=== PATIENT | male | born 1955 | race Caucasian/White ===

== ENCOUNTER → 2024-01-06 | Outpatient (CLI) | payer MEDICARE, SELFPAY | END | disposition home or self-care (01) | PROVIDERS: PCP Nurse Practitioner Family; Referring Provider Internal Medicine Critical Care Medicine; Visit Provider Internal Medicine Critical Care Medicine | DX: R91.8 Other nonspecific abnormal finding of lung field (principal); F17.210 Nicotine dependence, cigarettes, uncomplicated | CPT/HCPCS: 94060; 94726; 94729 ==

== ENCOUNTER 2024-01-08 10:16 | Observation (INO) | payer MEDICARE, SELFPAY ==
[2024-01-08] VITALS (9 sets, daily range): BP systolic 92–152; BP diastolic 47–78; PULSE 55–86; RESP 15–20; TEMP 36.3–36.5; O2SAT 90–97; BMI 20.4; BMI 19.2
--- NOTE | 2024-01-08 10:26 | EDS_ITS ---
HPI History of Present Illness Chief Complaint: Shortness of Breath Informant: patient Onset/Context/Timing Onset: Today Current Severity: Mild Maximum Severity: Mild Narrative Narrative: 68-year-old male has a left lung mass. He was undergoing biopsy in radiology when he developed a small pneumothorax. Patient is doing well. Denies any significant complaints. He has no history of oxygen use at home. He is on no blood thinners. Prior similar symptoms: No Recent Illness/Hospitalization: No PFSH PFSH Medical History Hypertension Home Medications erythromycin 5 mg/gram (0.5 %) eye ointment 1 applic ophthalmic (eye) 12/29/23 [History Last Taken Unknown] irbesartan 150 mg-hydrochlorothiazide 12.5 mg tablet 1 tab PO DAILY 12/29/23 [History Last Taken 01/05/24] tamsulosin 0.4 mg capsule 0.4 mg PO DAILY 12/29/23 [History Last Taken Unknown] Allergy/AdvReac Type Severity Reaction Status Date / Time No Known Allergies Allergy Verified 01/08/24 10:17 Surgical History H/O vasectomy Social History Smoking Status: Current every day smoker tobacco type: cigarettes ROS ROS ED ROS Narrative Denies recent illness. Review of Systems ROS Unobtainable: Denies due to encephalopathy Constitutional Constitutional ED: Denies chills or fever(s) Eyes Eyes: Denies blurry vision ENT ENT ED: Denies ear pain Cardiovascular Cardiovascular: Denies palpitations or racing heartbeat Respiratory/Chest Respiratory/Chest: Denies cough or dyspnea Gastrointestinal Gastrointestinal: Denies abdominal pain Genitourinary Genitourinary ED: Denies dysuria or hematuria Musculoskeletal Musculoskeletal: Denies arthralgias Integumentary Denies abscess or Abrasions Neurologic Neurologic: Denies headache(s) Psychiatric Psychiatric: Denies anxiety or depression Endocrine Endocrinology: Denies cold intolerance Hematologic/Lymphatic Hematologic/Lymphatic: Reports none Allergic/Immunologic Allergic/Immunologic ED: Denies mouth swelling, tongue swelling or urticaria EXAM Physical Exam Narrative Exam Narrative: 60-year-old male vital signs stable afebrile. Pulse ox 96% on room air no signs hypoxia. H EENT exam unremarkable except lazy eye on the left. Blocked gland on the left which she has upcoming surgery. Neck nontender. Lungs clear to auscultation bilaterally. Slightly diminished on the left. No subcu air or crepitus. Chest wall nontender. Heart regular rate and rhythm rate about 65 no murmur. Abdomen soft nontender. Moving all 4 extremities. Nontender no edema. Neurologically is awake alert no focal motor deficits. Const Vital Signs: 01/08/24 10:17 01/08/24 10:22 01/08/24 11:34 Temperature 97.6 F L Temperature Source Temporal Pulse Rate 65 86 Respiratory Rate 20 H 16 Respiratory Effort Normal Respiratory Depth Normal Respiratory Pattern Normal Blood Pressure 152/73 H 144/71 H Blood Pressure Mean 99 95 Pulse Ox 96 96 Oxygen Delivery Method Room Air Room Air Room Air Positive well nourished and well developed; Negative for obese, cachectic, contractures or unkempt General Appearance ED: well developed and NAD; Negative for unkempt, cachectic, contractures, cyanotic, diaphoretic or pallor Nutritional Appearance: Negative for cachectic or obese HEENT Reports moist mucous membranes; Denies dry mucous membranes Negative for trauma or tenderness Mouth ED: No dry mucous membranes Mouth: No dry mucous membranes Eyes PERRL and EOMs intact bilaterally General Eye ED: Negative for pale conjunctiva or scleral icterus Neck no lymphadenopathy, supple and no JVD General: Negative for tenderness Lymph Lymphatic: Negative for other Chest Wall inspection of chest normal and palpation of chest normal Resp normal respiratory effort and clear to auscultation bilaterally Resp Narrative: Mildly diminished on the left. Effort and Inspection: Negative for retractions Auscultation: diminished lung sounds; Negative for rales, rhonchi or wheezes Cardio regular rate, regular rhythm, S1 normal heart sound, S2 normal heart sound and no murmurs Palpation: Negative for palpable S3 or palpable S4 Rate: Negative for bradycardia or tachycardic Rhythm: Negative for abnormal rhythm GI normal to inspection, nondistended, normoactive bowel sounds, non-tender, non- distended and no masses Inspection: Negative for abdominal distention Auscultation: normoactive bowel sounds Palpation: soft; Negative for tender, guarding or rebound tenderness present Back/Spine no CVA tenderness General Back: Negative for CVA tenderness Cervical Spine: Negative for cervical spine tenderness Thoracic Spine / Upper Back: Negative for thoracic spinal tenderness or paraspinal muscle tenderness Lumbar Spine / Lower Back: Negative for lumbar spinal tenderness Extremity normal to inspection General Extremety ED: Negative for edema, tenderness or other findings General Extremity: Negative for edema or other findings Neuro CN's II-XII intact bilaterally Sensorium / Orientation: alert; Negative for orientation impaired, lethargic or stuporous Motor Exam: strength 5/5 throughout; Negative for general weakness or strength abnormal Psych mental status grossly normal Appearance: Negative for unkempt Attitude: No agitated Mood & Affect: Negative for depressed, anxious or tearful Skin no rashes or lesions noted and no wounds General Skin Exam: Negative for jaundice or pallor Lesions: No lesion noted Rashes: No rashes noted Trauma: Negative for abrasion Wounds: Negative for wounds noted MDM MDM MDM Narrative Medical decision making narrative: 68-year-old male status post idiopathic left-sided pneumothorax after lung biopsy. Patient is in no distress. He and I discussed the thoracostomy tube placement. Patient is not on any blood thinners. Placed the left thoracostomy tube. Got a good randle of air. Patient was instructed on the procedure. Area was cleaned with soap. It was sterilely draped. I made a small 1 cm incision. Area was locally anesthetized with lidocaine. Place a thoracostomy tube mid axillary line at the level of his nipple. Obtained a good randle of air. And hooked it up to low intermittent suction. Chest x-rays being obtained. Patient tolerated procedure well. Patient given morphine for pain and Zofran to prevent nausea. Chest x-ray postprocedure shows a left lung reexpanded. Thoracostomy tube in good position. I have spoken to the hospitalist patient will be an observation admission to [facility]. History & Record Review Discussion w/independent historian: Patient Additional record(s) reviewed:: Prior inpatient record, Prior outpatient record, Prior ED visit and Prior labs Radiography Diagnostic Testing: Outpatient chest x-ray, interpreted by myself, shows chronic changes. Left- sided pneumothorax 25 to 30% about. Moderate size left lung mass. Chronic changes. Post thoracostomy tube chest x-ray, 2 views, interpreted by myself shows the thoracostomy tube in good position. The left lung reexpanded. And the known left lung mass. Procedures Other Procedures Procedure(s): Left-sided pneumothorax. Placement of left thoracostomy tube. Explained to the patient. He consented. Sterilely draped. Clean the area with soap. Lateral to the nipple level of the mid axillary line and I did local anesthetic with lidocaine. Small vertical incision with scalpel. 1 [address]aced a thoracostomy tube. Good randle of air. Aspirated 5 to 10 cc of air. Tube is being dressed. Awaiting postprocedure chest x-ray. Discharge Plan Dx/Rx/DC Orders Clinical Impression: Iatrogenic pneumothorax, Mass of left lung, Thoracostomy tube in place Disposition Disposition: Acute Care Hospital [facility]
--- NOTE | 2024-01-08 11:13 | ED.RN ---
dr coleman at bedside to do chest tube.
--- NOTE | 2024-01-08 11:22 | RAD_ITS ---
STUDY: X-RAY CHEST REASON FOR EXAM: Male, 68 years old. Status post thoracostomy tube placement. TECHNIQUE: Frontal and lateral views of the chest. COMPARISON: Earlier in the day. FINDINGS: Placement of left thoracostomy tube with resolution of left pneumothorax. Minimal subcutaneous emphysema along the left lateral chest wall. Stable borderline cardiomegaly, aortic tortuosity, prominent central pulmonary arteries, hyperinflation, diffuse interstitial prominence and left lower lobe mass. No abnormality of the visualized soft tissue structures of the upper abdomen. RAD/Chest PA and Lateral IMPRESSION: Placement of left thoracostomy tube with resolution of left pneumothorax. Electronically Signed: Michael Davis MD at 11:55 EST ,
[2024-01-08] MEDS: Ondansetron 4 MG/2 ML Vial IV (11:44)
[2024-01-08] MEDS: Morphine 4 MG/ML Syringe IV (11:44)
[2024-01-08] MEDS: Lidocaine 1% (20 ml mdv) 20 ML Vial 10 ML INFILT (11:44)
--- NOTE | 2024-01-08 11:44 | NURSING ---
DR HERBERT SULTANA
--- NOTE | 2024-01-08 11:51 | PCM.HP.STD ---
[facility] - General General Date of Service: 01/08/24 Chief Complaint: Iatrogenic pneumothorax HPI Narrative PATRICK ANDRES, is a 68 M who presented to the emergency department at [facility] on 01/08/2024 for iatrogenic pneumothorax that he sustained post CT-guided biopsy for a left-sided lung mass. He evidently underwent a low-dose CT scan at [facility] on 12/16/2023 that demonstrated bilateral emphysematous changes along with an area of bronchiectasis and a spiculated left lower lobe pulmonary nodule that measured 1 point centimeter in size. PET scan was performed and did show abnormal uptake so a CT-guided biopsy was performed. The procedure was done today but unfortunately he sustained a postprocedure complication and a 25 to 30% pneumothorax on the left side. He was transferred to the emergency department where a thoracostomy tube was placed by the emergency department physician. He was not has not been hypoxic. Vital signs show temperature of 97.6, heart rate 65, blood pressure 152/73, respiratory to 20 and oxygen saturations have been 96% on room air. Labs had not yet been obtained. [facility] Medical History Hypertension Home Medications erythromycin 5 mg/gram (0.5 %) eye ointment 1 applic ophthalmic (eye) 12/29/23 [History Last Taken Unknown] irbesartan 150 mg-hydrochlorothiazide 12.5 mg tablet 1 tab PO DAILY 12/29/23 [History Last Taken 01/05/24] tamsulosin 0.4 mg capsule 0.4 mg PO DAILY 12/29/23 [History Last Taken Unknown] Allergy/AdvReac Type Severity Reaction Status Date / Time No Known Allergies Allergy Verified 01/08/24 10:17 Family History (Updated 01/08/24 @ 12:[address] Emma Wilson DO) Other Hypertension Surgical History H/O vasectomy Social History (Updated 01/08/24 @ 12:[address] Emma Wilson DO) household members: family housing: house current occupational status: retired Smoking Status: Current every day smoker tobacco type: cigarettes Smoking packs per day: 1.5 Smoking cigarettes per day: 30.0 alcohol intake: current alcohol intake frequency: a few times a month substance use type: does not use ROS Constitutional Constitutional: Denies anorexia, change in weight, chills, fatigue, fever(s), malaise, night sweats, weakness or other Eyes Eyes: Reports erythema and eye pain; Denies blurry vision, change in eye color, change in vision, discharge from eye(s), double vision, loss of vision or other ENT HEENT: Denies abnormal hearing, dysphagia, ear pain, epistaxis, headache(s), hearing loss, nasal congestion, nasal discharge, post nasal drip, sinus pressure, sore throat or other Cardiovascular Cardiovascular: Denies chest pain, claudication, dyspnea on exertion, edema, lightheadedness, orthopnea, palpitations, paroxysmal nocturnal dyspnea, rapid heart rate, syncope or other Respiratory/Chest Respiratory/Chest: Reports cough; Denies dyspnea, excessive phlegm production, hemoptysis, productive cough, shortness of breath at rest, shortness of breath with exertion, wheezing or other Gastrointestinal Gastrointestinal: Denies abdominal pain, coffee ground emesis, constipation, diarrhea, dyspepsia, hematemesis, hematochezia, loose stools, melena, nausea, vomiting or other Genitourinary Genitourinary: Reports difficulty urinating, nocturia and urinary hesitancy; Denies burning urination, dysuria, hematuria, urinary frequency, urinary incontinence, urinary urgency or other Musculoskeletal Musculoskeletal: Denies arthralgias, back pain, joint pain, joint stiffness, joint swelling, myalgias, neck pain or other Neurologic Neurologic: Denies abnormal gait, abnormal speech, confusion, disequilibrium, dizziness, focal weakness, headache(s), numbness, paresthesias, seizure-like activity, seizures, syncope, tingling, tremor(s) or other Psychiatric Psychiatric: Denies anxiety, depression, homicidal ideation, suicidal ideation or other Endocrine Endocrinology: Denies change in body appearance, cold intolerance, excessive sweating, heat intolerance, polydipsia, polyuria or other Hematologic/Lymphatic Hematologic/Lymphatic: Denies anemia, easy bleeding, easy bruising, lymphadenopathy or other Allergic/Immunologic Allergic/Immunologic: Denies rhinitis, hives, eczemia, asthma or other Vital Signs Vital Signs Vital Signs: 01/08/24 10:17 01/08/24 10:22 01/08/24 11:34 Temperature 97.6 F L Temperature Source Temporal Pulse Rate 65 86 Respiratory Rate 20 H 16 Respiratory Effort Normal Respiratory Depth Normal Respiratory Pattern Normal Blood Pressure 152/73 H 144/71 H Blood Pressure Mean 99 95 Pulse Ox 96 96 Oxygen Delivery Method Room Air Room Air Room Air Weight Weight: 54 kg Body Mass Index (BMI) 20.4 Physical Exam Const alert, oriented x3, no apparent distress, average body habitus and well nourished; Negative for healthy appearing Constitutional Narrative: Upper middle-aged, white male, sitting up in bed, appears older than stated age, thin, currently appears comfortable, nontoxic General Appearance: cooperative HEENT normocephalic, head/scalp atraumatic and moist oral mucous membranes HEENT Narrative: Dentures in place, Mallampati 2, no thrush Resp normal respiratory effort, no retractions, no use of accessory muscles and clear to auscultation bilaterally Resp Narrative: Diffusely diminished but clear Auscultation: Negative for rales, rhonchi or wheezes Cardio regular rate, regular rhythm, S1 normal heart sound, S2 normal heart sound, no murmurs, no rub, no gallops and no clicks GI normal to inspection, nondistended, normoactive bowel sounds, soft to palpation and non-tender Extremity no clubbing, cyanosis or edema Neuro oriented x3, moves all extremities and no focal motor deficits Speech: speech normal Psych affect normal Psych Narrative: Very pleasant, interacts appropriately Assessment & Plan Assessment/Plan (1) Thoracostomy tube in place: (2) Mass of left lung: (3) Iatrogenic pneumothorax: (4) Nicotine dependence, cigarettes, uncomplicated: PLAN: Plan Iatrogenic pneumothorax -Patient was undergoing biopsy for pulmonary nodule and unfortunately developed postprocedure pneumothorax -Chest tube placement in the ED -Good reexpansion on follow-up chest x-ray -Supplemental oxygen as needed however patient is currently on room air and stable at 93% -General surgery to assist with chest tube management -Chest tube to suction Abnormal lung mass -Biopsy performed -Outpatient follow-up with pulmonary medicine after discharge Abnormal EKG -Patient without any active symptoms -It appears that he has had a previous anterior and inferior MT -We will cycle cardiac enzymes -Obtain previous medical records in the form of echo and EKG from [facility] if available -Start aspirin 81 mg daily -Check lipids -Will make cardiology referral at discharge Hypertension -Continue home antihypertensives BPH with obstruction -Continue home Flomax Left eye infection with clogged tear duct -Surgery upcoming -Continue ophthalmic erythromycin Tobacco abuse -Recommend cessation -Nicotine patch -Patient smoking 1 and half packs of day DVT prophylaxis -Lovenox subcu daily CODE STATUS -Full code Charges/Coding Visit Charges Inpatient E&M: 55443 Init Hosp L2
--- NOTE | 2024-01-08 11:53 | NURSING ---
MED SURG OBS HERBERT IATROGENIC PNEUMOTHORAX, LEFT THORACOSTOMY TUBE, LEFT LUNG MASS
--- NOTE | 2024-01-08 12:06 | EKG12_ITS ---
Test Reason : Blood Pressure : / mmHG Vent. Rate : 058 BPM Atrial Rate : 058 BPM P-R Int : 100 ms QRS Dur : 076 ms QT Int : 434 ms P-R-T Axes : 056 091 117 degrees QTc Int : 426 ms Sinus bradycardia with short SD Rightward axis Septal infarct , age undetermined ST & Marked T wave abnormality, consider anterolateral ischemia Abnormal ECG Confirmed by FRANCISCO STONE, STEVEN ([id number]), make up editor CANDY SHELL ([id number]) on 01/11/2024 1:59:52 PM Referred By: REBECA Confirmed By:MALISSA SINGH MD
--- OUTSIDE RECORDS SUMMARY | 2024-01-08 12:53 | XMS RPT_ITS | CCD ---
Author Name Unknown Address [address] [facility] [address] [place] [address] Organization [facility] Care Team Providers Care Breastfeeding Educator Name Role Phone SANFORD Corey CNP, WENDY Galan Primary Care Phys ician LONDON KAMINSKI, JESUS Primary Care Physician LONDON KAMINSKI, JESUS Primary Care Cherivai lable LONDON KAMINSKI, JESUS Attending Cherivapia labglenn KAMINSKI, JESUS Attending Unavai lable LONDON KAMINSKI, JESUS Primary Care Unavai lable LONDON KAMINSKI, JESUS Attending Unavai labglenn KAMINSKI, JSEUS Primary Care Unavai lable Medications Current Medications Medication Drug Class(es) Dates Sig (Normalized) Sig (Original) erythromycin 0.005 mg/mg ophthalmic ointment (2 sources) Macrolide, Macrolide Antimicrobial Start: 11-25-2023 erythromycin 0.5% ophthalmic ointment Dose = 1 alvarado, Eye, left, QID, 1 alvarado = 0.5 inch, # 3.5 gram(s), 0 Refill(s), Pharmacy: [id number], Hordeolum of left eye, 166, cm, [...] Daily, # 30 tab(s), 0 Refill(s), Pharmacy: [id number], Hypertension, 166, cm, 11/25/23 9:57:00 EST, [...] Date Encounter Type Care Provider Facility Start: 12-31-2023 End: 01-01-2024 ambulatory JESUS LONDON [facility] Facility:A Start: 12-16-2023 End: 12-17-2023 ambulatory JESUS LONDON [facility] Facility:B Start: 12-16-2023 End: 12-16-2023 Patient encounter procedure JESUS LONDON [facility] Start: 11-27-2023 End: 11-28-2023 ambulatory JESUS LONDON [facility] Facility:B Start: 11-27-2023 End: 11-27-2023 Patient encounter procedure JESUS LONDON [facility] Start: 09-23-2021 End: 09-27-2021 Outreach Lab WENDY CHRISTINA [facility] Start: 08-16-2021 End: 08-20-2021 Outreach Lab WENDY CHRISTINA [facility] Procedures Date Procedure Procedure Detail Performing Clinician Start: 11-09-2019 Colonoscopy JESUS CARMEN DAYO [facility] Start: 11-09-1984 Vasectomy JESUS CARMEN ETGORDO [facility] Immunizations Immunization Date Immunization Notes Care Provider Fa cility 05-16-2016 pneumococcal polysaccharide vaccine, 23 valent WENDY CHRISTINA [facility] 05-16-2016 tetanus toxoid, redu angela diphtheria toxoid, and acellular pertussis vaccine, adsorbed WENDY CHRISTINA [facility] Payers Date Payer Category Payer Medicare [id number] 1955 Unknown [id number] 1955 Unknown [id number] 1955 Unknown [id number] Social History Date Type Detail Facility Start: 03-07-2021 End: 11-25-2023 Heavy tobacco smoker (finding) [facility] Sex Assigned At [facility] Evaluation + Plan note Note Date & Type Note Facility Evaluation + Plan note Future Appointments Appointment Date:10/21/2021 10:40:00 AM Scheduled Provider:WENDY CHRISTINA [facility] Location:[facility] Appointment Type:PC OV [facility] Evaluation + Plan note Note Date & Type Note Facility Evaluation + Plan note Future Appointments Appointment Date:09/06/2021 09:00:00 AM Scheduled Provider:WENDY CHRISTINA APRN, CNP Location:[facility] Appointment Type:PC OV Follow Up [facility] Evaluation + Plan note Radiology Note Date & Type Note Facility Evaluation + Plan note Future Appointments Appointment Date:12/23/2023 07:00:00 AM Scheduled Provider:JSEUS CALLAHAN Location:[facility] Appointment Type:PC OV Follow Up Future Scheduled TestsCT Low Dose Lung Cancer Screening (LDCT) 11/25/23 [facility] Evaluation + Plan note Note Date & Type Note Facility Evaluation + Plan note Future Appointments Appointment Date:12/23/2023 07:00:00 AM Scheduled Provider:JESUS CALLAHAN Location:[facility] Appointment Type:PC OV Follow Up [facility] Hospital course Narrative Note Date & Type Note Facility Hospital course Narrative No data available for this section [facility] Hospital Discharge instructions Note Date & Type Note Facility Hospital Discharge instructions No data available for this section [facility] Progress note Note Date & Type Note Facility Progress note No data available for this section [facility] Summary Purpose Family History No Family History Records Found Advance Directives No Advanced Directives Records Found Additional Source Comments Patient Care team informatio n (unrecognized section and content) Care Team Personnel Name: JESUS CALLAHAN Position: P4 Advanced Nurse Care Manager Member Role: Primary Care Physician Address: Address: [address] [place] [address] [place] Care Team Related Persons Name: JELLY ANDRES Care Team Personnel Name: JESUS CALLAHAN Position: P4 Advanced Nurse Care Manager Member Role: Primary Care Physician Address: Address: [address] [facility] [place] [address]- Care Team Related Persons Name: JELLY ANDRES [...] BE BASED ON THE PRIMARY CLINICAL RECORDS. [employer] provides no warranty or guarantee of the accuracy or completeness of information in this document.
[2024-01-08 13:09] LABS: Absolute Neutrophil Count 5.4 X10^3/uL (2.0-7.7); Basophil# 0.04 X10^3/uL; Basophil% 0.5 % (0-1); Eosinophil# 0.08 X10^3/uL; Eosinophils% 0.9 % (0-5); Hematocrit 38.9 % (40-54); Hemoglobin 13.4 g/dL (13.0-16.5); Lymphocyte % 25.8 % (19-41); Mean Corp Hgb Conc 34.4 g/dL (32-36); Mean Corpuscular Hgb 30.7 pg (27.0-32.0); Mean Corpuscular Volume 89.2 fL (80-94); Mean Platelet Vol. 9.6 fl (6.2-12.0); Monocyte# 0.83 X10^3/uL; Monocyte% 9.7 % (0-10); NRBC Flagged by Analyzer 0 % (0-5); Neutrophil # 5.37 X10^3/uL (2.7-7.7); Platelet Count 289 K/mm3 (150-450); RBC Distribution Width CV 13.1 % (11.6-14.6); RBC Distribution Width SD 42.7 fl (35.1-43.9); Red Blood Count 4.36 M/mm3 (4.6-6.2); White Blood Count 8.5 K/mm3 (4.4-11.0)
[2024-01-08 13:26] LABS: ALB/GLOB Ratio 0.8 RATIO (0.9-2.4); AST(SGOT) 33 U/L (15-37); Alanine Aminotransfer ALT/SGPT 35 U/L (16-61); Albumin, Serum 2.8 g/dL (3.2-5.0); Alkaline Phosphatase 93 U/L (45-117); Anion Gap 3 (5-15); BUN 11 mg/dL (7-18); BUN/Creat Ratio 17.5 RATIO (10-20); Calcium,Total 8.5 mg/dL (8.5-10.1); Chloride 107 mmol/L (98-107); Creatinine, Serum 0.63 mg/dL (0.70-1.30); EST Glomerular Filtration Rate 135 mL/min (>60); Est Glom Filt Rate - Afr Amer 163 mL/min (>60); Globulin 3.6 g/dL (2.2-4.2); Glucose 84 mg/dL (74-106); Potassium 4.4 mmol/L (3.5-5.1); Protein, Total 6.4 g/dL (6.4-8.2); Sodium Level 134 mmol/L (136-145)
[2024-01-08] MEDS: Aspirin 81 MG TAB.CHEW PO (13:56)
[2024-01-08] MEDS: Acetaminophen 500 MG Tablet 1000 MG PO ×2 (13:56→21:08)
[2024-01-08] MEDS: oxyCODONE 5 MG Tablet PO (13:56)
[2024-01-08 14:09] LABS: Cholesterol 159 mg/dL (200); High Density Lipoprotein 71 mg/dL; Triglycerides 61 mg/dL; Very Low Density Lipoprotein 12 mg/dL (5-40)
[2024-01-08 14:35] LABS: Troponin-I HS 20 pg/mL (3.0-78.0)
[2024-01-08 16:37] LABS: Troponin-I HS 19 pg/mL (3.0-78.0)
--- NOTE | 2024-01-08 16:53 | CON.PCM.SX_ITS ---
Assessment & Plan Assessment/Plan (1) Iatrogenic pneumothorax: PLAN: The patient had iatrogenic pneumothorax after left lung biopsy. Chest tube is in place. I added a Pleur-evac to the circuit to allow to check for for airleak. After I did I was not able to appreciate an air leak. The patient seems not short of breath. Chest x-ray showed full expansion of the lung. I will repeat a chest x-ray in the morning. Caden Lockwood MD Pager: [facility] [address] [place] [address], [address] [place] [address] Office: HPI Consult Data Date of Consult: 01/08/24 HPI Narrative HPI Narrative: PATRICK ANDRES, is a 68 M who presents with iatrogenic pneumothorax on the left side. Patient had lung biopsy today and had postoperative pneumothorax. He was sent to the emergency room and a chest tube was placed and he was admitted to the floor. Currently he says it is irritating his ribs but he is not short of b reath. [facility] Medical History (Updated 01/08/24 @ 13:41 by Aure Kenyon) Hypertension Smoker Vision loss of left eye Home Medications erythromycin 5 mg/gram (0.5 %) eye ointment 1 applic ophthalmic (eye) Q6H 12/29/23 [History Last Taken 01/06/24] irbesartan 150 mg-hydrochlorothiazide 12.5 mg tablet 1 tab PO DAILY 12/29/23 [History Last Taken 01/06/24] tamsulosin 0.4 mg capsule 0.4 mg PO DAILY 12/29/23 [History Last Taken 01/06/24] Allergy/AdvReac Type Severity Reaction Status Date / Time No Known Allergies Allergy Verified 01/08/24 10:17 Family History (Updated 01/08/24 @ 12:[address] Emma Wilson DO) Other Hypertension Surgical History H/O vasectomy Social History (Updated 01/08/24 @ 12:[address] Emma Wilson DO) household members: family housing: house current occupational status: retired Smoking Status: Current every day smoker tobacco type: cigarettes alcohol intake: current alcohol intake frequency: a few times a month substance use type: does not use ROS Constitutional Constitutional: Reports anorexia; Denies chills or fatigue Eyes Eyes: Denies blurry vision ENT HEENT: Denies abnormal hearing Cardiovascular Cardiovascular: Reports chest pain Respiratory/Chest Respiratory/Chest: Denies cough or dyspnea Gastrointestinal Gastrointestinal: Denies abdominal pain Genitourinary Genitourinary: Denies change in urinary stream Musculoskeletal Musculoskeletal: Denies abnormal gait Physical Exam Const alert and oriented x3 HEENT normocephalic Eyes PERRL Neck full ROM Resp normal respiratory effort Cardio Rate: regular rate Rhythm: regular rhythm GI soft to palpation and non-tender Lab / Micro Data 01/08/24 12:58 01/08/24 12:58 Labs: Laboratory Results - last 24 hr 01/08/24 12:58: WBC 8.5, RBC 4.36 L, Hgb 13.4, Hct 38.9 L, MCV 89.2, MCH 30.7, MCHC 34.4, RDW Std Deviation 42.7, RDW Coeff of [place] 13.1, Plt Count 289, MPV 9.6, Immature Gran % (Auto) 0.100, Neut % (Auto) 63.0, Lymph % (Auto) 25.8, [place] % (Auto) 9.7, Eos % (Auto) 0.9, Baso % (Auto) 0.5, Absolute Neuts (auto) 5.4, Absolute Lymphs (auto) 2.20, Nucleated RBC % 0, Sodium 134 L, Potassium 4.4, Chloride 107, Carbon Dioxide 24.0, Anion Gap 3 L, BUN 11, Creatinine 0.63 L, Estim Creat Clear Calc 67.50, Est GFR (MDRD) Af Amer 163, Est GFR (MDRD) Non-Af 135, BUN/Creatinine Ratio 17.5, Glucose 84, Calcium 8.5, Total Bilirubin 0.60, AST 33, ALT 35, Alkaline Phosphatase 93, Total Protein 6.4, Albumin 2.8 L, Globulin 3.6, Albumin/Globulin Ratio 0.8 L, Triglycerides 61, Cholesterol 159, LDL Cholesterol 76, VLDL Cholesterol 12, HDL Cholesterol 71 01/08/24 14:07: Troponin I High Sens 20 01/08/24 16:06: Troponin I High Sens 19 Imaging Radiology Impression Chest X-Ray 01/08/24 11:22 IMPRESSION: Placement of left thoracostomy tube with resolution of left pneumothorax. Electronically Signed: Michael Davis MD at 11:55 EST ,
[2024-01-08 20:40] LABS: Troponin-I HS 16 pg/mL (3.0-78.0)
[2024-01-08] MEDS: Erythromycin Base 1 OPTH.TUBE 1 APPLIC LEFT EYE (21:09)
[2024-01-09] VITALS (8 sets, daily range): BP systolic 86–101; BP diastolic 42–58; PULSE 50–69; RESP 15–18; TEMP 36.5–36.8; O2SAT 92–97
--- NOTE | 2024-01-09 01:46 | NURSING ---
CARDIAC TROPONINS NEGATIVE X 3.
--- NOTE | 2024-01-09 05:11 | RAD_ITS ---
STUDY: X-RAY CHEST REASON FOR EXAM: Male, 68 years old. Pneumothorax TECHNIQUE: Single AP portable view of the chest. COMPARISON: January 08, 2024 FINDINGS: There is stable left chest tube. There is hyperinflation of the lungs consistent with chronic obstructive lung disease (COPD). There are moderate interstitial increased opacities of the lungs. There is improving left lower lung opacity with mass and surrounding consolidation. There is no demonstrated pleural abnormality. Normal size heart. Normal mediastinum and tomasz. Normal visualized pulmonary arteries. Normal visualized aortic arch and descending thoracic aorta. Normal visualized thoracic spine. Normal visualized ribs, clavicles, and shoulders. There is no demonstrated abnormality of the visualized soft tissue structures of the upper abdomen. RAD/Chest 1 View (Portable) IMPRESSION: Stable left chest tube. No pneumothorax. Left lung mass with improvement of adjacent consolidation. Electronically Signed: Stefan Coreas MD at 9:48 EST ,
[2024-01-09] MEDS: Acetaminophen 500 MG Tablet 1000 MG PO ×2 (06:54→13:24)
[2024-01-09] MEDS: Tamsulosin HCl 0.4 MG Capsule 0.400000000000000022 MG PO (07:38)
--- NOTE | 2024-01-09 08:12 | PN.SURG_ITS ---
Subjective Subjective Patient is comfortable with no issues overnight Objective Data Objective Data Vital Signs: Vital Signs Temp Pulse Resp BP Pulse Ox O2 Del Method O2 Flow Rate 97.8 F 55 L 15 101/58 L 97 Room Air 2 01/09/24 02:10 01/09/24 02:10 01/09/24 04:00 01/09/24 02:10 01/09/24 02:10 01/09/24 04:00 01/09/24 02:10 Oxygen Flow Rate (L/min) 2 Oxygen Delivery Method Room Air Weight: 112 lb Body Mass Index (BMI) 19.2 Intake & Output: Intake and Output for Last 24 Hours 01/07/24 01/08/24 01/09/24 23:59 23:59 23:59 Intake Total 250 / 250 100 / 100 Output Total 600 / 600 Balance 250 / 250 -500 / -500 Lab / Micro Data 01/08/24 12:58 01/08/24 12:58 Labs: Laboratory Results - last 24 hr 01/08/24 12:58: WBC 8.5, RBC 4.36 L, Hgb 13.4, Hct 38.9 L, MCV 89.2, MCH 30.7, MCHC 34.4, RDW Std Deviation 42.7, RDW Coeff of [place] 13.1, Plt Count 289, MPV 9.6, Immature Gran % (Auto) 0.100, Neut % (Auto) 63.0, Lymph % (Auto) 25.8, [place] % (Auto) 9.7, Eos % (Auto) 0.9, Baso % (Auto) 0.5, Absolute Neuts (auto) 5.4, Absolute Lymphs (auto) 2.20, Nucleated RBC % 0, Sodium 134 L, Potassium 4.4, Chloride 107, Carbon Dioxide 24.0, Anion Gap 3 L, BUN 11, Creatinine 0.63 L, Estim Creat Clear Calc 67.50, Est GFR (MDRD) Af Amer 163, Est GFR (MDRD) Non-Af 135, BUN/Creatinine Ratio 17.5, Glucose 84, Calcium 8.5, Total Bilirubin 0.60, AST 33, ALT 35, Alkaline Phosphatase 93, Total Protein 6.4, Albumin 2.8 L, Globulin 3.6, Albumin/Globulin Ratio 0.8 L, Triglycerides 61, Cholesterol 159, LDL Cholesterol 76, VLDL Cholesterol 12, HDL Cholesterol 71 03/01/24 14:07: Troponin I High Sens 20 01/08/24 16:06: Troponin I High Sens 19 01/08/24 19:59: Troponin I High Sens 16 Radiography Diagnostic Testing: Radiology Impression Chest X-Ray 01/08/24 11:22 IMPRESSION: Placement of left thoracostomy tube with resolution of left pneumothorax. Electronically Signed: Michael Davis MD at 11:55 EST Reading Location ID and State: [id number] [facility] , Service support , Physical Exam Const oriented x3 and no apparent distress Resp normal respiratory effort Cardio regular rate and regular rhythm GI soft to palpation and non-tender Assessment & Plan Assessment/Plan (1) Iatrogenic pneumothorax: PLAN: Patient had pneumothorax after lung biopsy. He is doing well today and his morning x-ray shows no pneumothorax. There is no airleak. I will place him to [facility] and repeat an x-ray in a few hours and as long as there is no pneumothorax I will remove the chest tube and repeat a post removal x-ray and if that is well he can go home. Caden Lockwood MD Pager: [facility] [address] [place] [address], [address] [place] [address] Office:
--- NOTE | 2024-01-09 09:02 | CASEMGMT ---
Met with pt to complete GALEANA form. GALEANA form explained to pt at this time who voiced understanding and signed form. Original form placed in pt?s chart and copy provided to the pt. Cindy West RN CM
--- NOTE | 2024-01-09 09:10 | RAD_ITS ---
STUDY: X-RAY CHEST REASON FOR EXAM: Male, 68 years old. Chest tube to water seal TECHNIQUE: Single AP portable view of the chest. COMPARISON: January 09, 2024 FINDINGS: There is stable left chest tube. There is hyperinflation of the lungs consistent with chronic obstructive lung disease (COPD). There are moderate interstitial increased opacities of the lungs. There is improving left lower lung opacity with mass and surrounding consolidation. There is no demonstrated pleural abnormality. Normal size heart. Normal mediastinum and tomasz. Normal visualized pulmonary arteries. Normal visualized aortic arch and descending thoracic aorta. Normal visualized thoracic spine. Normal visualized ribs, clavicles, and shoulders. There is no demonstrated abnormality of the visualized soft tissue structures of the upper abdomen. RAD/Chest 1 View (Portable) IMPRESSION: Stable left chest tube. No pneumothorax. Left lung mass with improvement of adjacent consolidation. Electronically Signed: Stefan Coreas MD at 9:46 EST ,
[2024-01-09] MEDS: Losartan Potassium 50 MG Tablet PO (09:25)
[2024-01-09] MEDS: hydroCHLOROthiazide 12.5mg 12.5 MG PO (09:25)
[2024-01-09] MEDS: Enoxaparin 40 MG/0.4 ML Syringe SC (09:26)
[2024-01-09] MEDS: Erythromycin Base 1 OPTH.TUBE 1 APPLIC LEFT EYE (09:26)
--- NOTE | 2024-01-09 09:57 | PCM.PN.BLA ---
Progress Note Patient had chest x-ray which showed no pneumothorax. I removed the chest tube. It was very easily removed and the stitch was removed and the chest tube slid out of bandages placed. Patient tolerated procedure well. I will order another chest x-ray for 2 hours from now and as long as that chest or x-ray does not show any recurrence of pneumothorax the patient may be discharged home. Patient should have follow-up chest x-ray in 1 week to ensure no pneumothorax. He may follow-up with me in a week after chest x-ray is obtained. Caden Lockwood MD Pager: [facility] [address] [place] [address], [address] [place] [address] Office:
--- NOTE | 2024-01-09 10:08 | PCM.DC.SUM ---
Providers Date of Admission: 01/08/24 Date of Discharge: 01/09/24 Primary Care Physician: FRIEDA KEARNEY Consultations 01/08/24 13:23 Consult: General Surgery Routine Consulting Provider: Caden Lockwood Reason for Consult: L PTX EMERGENT Consult: No MD Notified: Yes Date Notified: 01/08/24 Time Notified: 11:51 Method of Notification: phone Reason For Visit: R PNEUMOTHORAX Diagnosis Discharge Diagnosis (1) Iatrogenic pneumothorax: Status: Acute Code(s): J95.811 - Postprocedural pneumothorax Plan Iatrogenic pneumothorax -Patient was undergoing biopsy for pulmonary nodule and unfortunately developed postprocedure pneumothorax -Chest tube placement in the ED -Good reexpansion on follow-up chest x-ray -Supplemental oxygen as needed however patient is currently on room air and stable at 93% -General surgery to assist with chest tube management -Chest tube to suction Abnormal lung mass -Biopsy performed -Outpatient follow-up with pulmonary medicine after discharge Abnormal EKG -Patient without any active symptoms -It appears that he has had a previous anterior and inferior KS -We will cycle cardiac enzymes -Obtain previous medical records in the form of echo and EKG from [facility] if available -Start aspirin 81 mg daily -Check lipids -Will make cardiology referral at discharge Hypertension -Continue home antihypertensives BPH with obstruction -Continue home Flomax Left eye infection with clogged tear duct -Surgery upcoming -Continue ophthalmic erythromycin Tobacco abuse -Recommend cessation -Nicotine patch -Patient smoking 1 and half packs of day DVT prophylaxis -Lovenox subcu daily CODE STATUS -Full code Medications at Discharge Home Medications erythromycin 5 mg/gram (0.5 %) eye ointment 1 applic ophthalmic (eye) Q6H 12/29/23 irbesartan 150 mg-hydrochlorothiazide 12.5 mg tablet 1 tab PO DAILY 12/29/23 tamsulosin 0.4 mg capsule 0.4 mg PO DAILY 12/29/23 aspirin 81 mg capsule 81 mg PO DAILY #30 caps 01/09/24 Hospital Course Procedures EKG and - (Chest tube placement and removal/chest x-ray) Summary of Care Provided Minutes Spent on Discharge: 36 Hospital Course: Mr. Pabon is a 68-year-old white male who presented to the emergency department [facility] on 01/08/2024 for an iatrogenic pneumothorax that he sustained after undergoing a CT-guided biopsy for left-sided lung mass. He evidently underwent a low-dose CT scan at [facility] on 12/16/2023 that demonstrated bilateral emphysematous changes along with an area of bronchiectasis and a spiculated left lower lobe pulmonary nodule that measured 1 cm in diameter PET scan was performed and showed abnormal uptake so CT-guided biopsy was performed. The procedure was done on 01/08/2024 but unfortunately post procedure x-rays noted about a 25 to 30% pneumothorax on the left side. He was transferred to the emergency department where a thoracostomy tube was placed in the left chest by the emergency department physician. He was not hypoxic. Vital signs at the time of admission demonstrated temperature of 97.6, heart rate 65, blood pressure is 152/73, respiratory was 20 oxygen saturations were 96% on room air. His CBC was unremarkable. Coags were normal. Chemistry panel was overtly unremarkable. I did know on his and initial monitor he had T wave inversions so I obtained an EKG and he has T wave inversions in the anterior lateral leads. He denied any chest pain and does not recollect ever having any symptoms of a myocardial infarction. We did cycle his cardiac enzymes while he was hospitalized and they were normal x 3. We did start him on a baby aspirin and I have advised him to follow-up with cardiology as an outpatient due to his EKG changes. I compared them to a previous EKG that was done in 2016 and he had no abnormalities at that time. I suspect he may have had a cardiac event between 2016 and now but patient is unable to recollect a time when he had any symptoms consistent with KS. I have asked him to see Dr. Franks or first available in the next 2 weeks for follow-up of this. With regards to his chest tube General surgery was consulted for management. Pleur-evac was added to the circuit to check for leak and no airleak was identified so chest x-ray was repeated this morning and he had no identifiable pneumothorax at that time. No airleak persisted and was placed to waterseal. Repeat chest x-ray showed no pneumothorax and the chest tube was removed with a follow-up chest x-ray performed 2 hours following and no pneumothorax identified. General surgery felt he was stable for discharge and would follow-up with a chest x-ray as an outpatient in a week and we will see him at that time. I have advised him to follow-up with his primary care physician as needed and follow-up with pulmonary medicine with regards to his biopsy results and call for appointment or follow-up as previously recommended. Resting and ambulatory pulse ox was obtained and he was stable on room air. He was discharged home in stable condition on 01/09/2024. Discharge diagnoses: Iatrogenic pneumothorax Abnormal lung mass Abnormal EKG Hypertension BPH with obstruction Left eye infection with clogged tear duct Tobacco abuse Weight / BMI Weight Weight: 50.802 kg Body Mass Index (BMI) 19.2 ABG / Lab / Microbiology Data 01/08/24 12:58 01/08/24 12:58 Laboratory: Laboratory Results - last 24 hr 01/08/24 12:58: WBC 8.5, RBC 4.36 L, Hgb 13.4, Hct 38.9 L, MCV 89.2, MCH 30.7, MCHC 34.4, RDW Std Deviation 42.7, RDW Coeff of [place] 13.1, Plt Count 289, MPV 9.6, Immature Gran % (Auto) 0.100, Neut % (Auto) 63.0, Lymph % (Auto) 25.8, Keith % (Auto) 9.7, Eos % (Auto) 0.9, Baso % (Auto) 0.5, Absolute Neuts (auto) 5.4, Absolute Lymphs (auto) 2.20, Nucleated RBC % 0, Sodium 134 L, Potassium 4.4, Chloride 107, Carbon Dioxide 24.0, Anion Gap 3 L, BUN 11, Creatinine 0.63 L, Estim Creat Clear Calc 67.50, Est GFR (MDRD) Af Amer 163, Est GFR (MDRD) Non-Af 135, BUN/Creatinine Ratio 17.5, Glucose 84, Calcium 8.5, Total Bilirubin 0.60, AST 33, ALT 35, Alkaline Phosphatase 93, Total Protein 6.4, Albumin 2.8 L, Globulin 3.6, Albumin/Globulin Ratio 0.8 L, Triglycerides 61, Cholesterol 159, LDL Cholesterol 76, VLDL Cholesterol 12, HDL Cholesterol 71 01/08/24 14:07: Troponin I High Sens 20 01/08/24 16:06: Troponin I High Sens 19 01/08/24 19:59: Troponin I High Sens 16 Radiography Diagnostic Testing: Radiology Impression Chest X-Ray 01/08/24 11:22 IMPRESSION: Placement of left thoracostomy tube with resolution of left pneumothorax. Electronically Signed: Michael Davis MD at 11:55 EST , Chest X-Ray 01/09/24 05:11 IMPRESSION: Stable left chest tube. No pneumothorax. Left lung mass with improvement of adjacent consolidation. Electronically Signed: Stefan Coreas MD at 9:48 EST , Chest X-Ray 01/09/24 09:10 IMPRESSION: Stable left chest tube. No pneumothorax. Left lung mass with improvement of adjacent consolidation. Electronically Signed: Stefan Coreas MD at 9:46 EST , D/C Instructions Discharge Diet: Low fat / Low cholesterol Discharge Activity: Return to Normal Activity and No Restrictions Meaningful Use Info Meaningful Use Diagnoses (Choose all that apply): None applicable Discharge Plan Admission Admit Date/Time: 01/08/24 11:44 Primary Reason for Your Visit: Pneumothorax Attending Provider: Emma Wilson Primary Care Provider: JESUS CALLAHAN Consulting Providers: Caden Lockwood Discharge Orders/Prescriptions Prescriptions: New aspirin 81 mg capsule 81 mg PO DAILY Qty: 30 0RF Continued irbesartan-hydrochlorothiazide 150-12.5 mg tablet 1 tab PO DAILY Patient Comments: TAKE 1 TABLET BY MOUTH EVERY DAY tamsulosin 0.4 mg capsule 0.4 mg PO DAILY Patient Comments: TAKE 1 CAPSULE BY MOUTH EVERY DAY erythromycin 5 mg/gram (0.5 %) ointment 1 applic ophthalmic (eye) Q6H Patient Comments: apply 1/2-inch ribbon IN THE LEFT EYE FOUR TIMES DAILY Other Ambulatory Orders: Chest PA and Lateral (Routine) Timeframe: 1 Week Facility: [facility] - Location: [facility] Ordered By: Dr. Caden Lockwood Referrals / Follow Up: Pierre Catalan DO [Med Staff - Active Staff] - See Referral Note (Call Thursday to set up follow-up for after your biopsy if this is not already been established) Lenny Franks MD [Med Staff - Active Staff] - Within 2 Weeks (call on Thursday and make an appt to be seen for abn EKG noted while you were in the hospital) JESUS CALLAHAN, [employer] SERGEANT-C [Primary Care Provider] - See Referral Note (as needed) Disposition Disposition (needs filled in before D/C Order can be placed): Home, Self Care Charges/Coding Visit Charges Inpatient E&M: 39479 Disch Hosp >30min
--- NOTE | 2024-01-09 11:05 | CASEMGMT ---
RIK REICH notified by pt nurse of unsteadiness. RIK REICH into pt room, pt sitting up in bed in no distress. Pt did not qualify for home oxygen. Pt states he has a walker that he can use of a family member and will plan to do so for balance. Pt denies need for any therapy at home or outpt. Pt denies any homegoing needs.
--- NOTE | 2024-01-09 12:20 | RAD_ITS ---
STUDY: X-RAY CHEST REASON FOR EXAM: Male, 68 years old. chest tube removal TECHNIQUE: Single AP portable view of the chest. COMPARISON: 01/09/2024 FINDINGS: No change in the patchy alveolar opacities in both lungs consistent with bilateral pneumonia. There is no demonstrated pleural abnormality. Normal size heart. Normal mediastinum and tomasz. Normal visualized pulmonary arteries. Normal visualized aortic arch and descending thoracic aorta. Normal visualized thoracic spine. Normal visualized ribs, clavicles, and shoulders. There is no demonstrated abnormality of the visualized soft tissue structures of the upper abdomen. RAD/Chest 1 View (Portable) IMPRESSION: No change in bilateral patchy pneumonia. CT may be useful. Electronically Signed: Angel Aguero MD at 22:51 EST ,
== END 2024-01-09 14:18 | disposition home or self-care (01) ==
LOC: ED 11:53 → MS3 12:32
PROVIDERS: Admitting Provider Internal Medicine; Emergency Provider Emergency Medicine; PCP Nurse Practitioner Family; Visit Provider Internal Medicine
DX: J95.811 Postprocedural pneumothorax (principal); J47.9 Bronchiectasis, uncomplicated; J84.10 Pulmonary fibrosis, unspecified; R94.31 Abnormal electrocardiogram [ECG] [EKG]; N40.1 Benign prostatic hyperplasia with lower urinary tract symptoms; F17.210 Nicotine dependence, cigarettes, uncomplicated; R91.1 Solitary pulmonary nodule; I10 Essential (primary) hypertension; I51.7 Cardiomegaly; R91.8 Other nonspecific abnormal finding of lung field; N13.8 Other obstructive and reflux uropathy; Z79.899 Other long term (current) drug therapy; H44.002 Unspecified purulent endophthalmitis, left eye
CPT/HCPCS: 32551; 32408; 36415; 71045; 71046; 77012; 80053; 80061; 84484; 85025; 85049; 85610; 85730; 88172; 88305; 88313; 93005; 94668; 96372; 96374; 96375; 99156; 99221; 99252; 99283; 99406; J7050; A4216; C2613; G0378; G0463; J2405

== ENCOUNTER → 2024-01-08 | Outpatient (CLI) | payer MEDICARE, SELFPAY ==
[2024-01-08] VITALS (9 sets, daily range): BP systolic 83–161; BP diastolic 16–121; PULSE 58–81; RESP 15–21; TEMP 36.8; O2SAT 96–100
--- NOTE | 2024-01-08 | ASPIGT_PTH ---
PATHOLOGY RESULTS PATIENT: PATRICK ANDRES Jr. LOC: [place] U#:[id number] AGE/SX: 68/M ROOM: RE01/08/[address]: Dr. Pierre Catalan DO : 1955 BED: DIS: 01/08/2024 SPEC #: [id number] RECD: 01/08/24 10:04 STATUS: SAMREEN REBrenda #: [id number] DAVID: 01/08/24 00:[address]: Pierre Catalan DEPT: SURGICAL PATHOLOGY RECD BY: Steve Bustos ENTERED: 01/08/24 10:04 SP TYPE: ASP RAD OTHR DR: JESUS CALLAHAN, AUTOMOTIVE SERVICE TECHNICIAN-Jonathan Tissues: Lung, NOS Procedures: FNA Specimen Adequacy Special Stain Group II Surgery Specimen Level IV Imprint (control) HEADER OPERATION: Left lung mass biopsy PRE-OP DIAGNOSIS: Lung mass TISSUE SUBMITTED: Left lower lung 20-gauge x5 MICROSCOPIC DIAGNOSIS Left lower lung mass, CT-guided core biopsy: Lung parenchymal tissue with focal fibrosis, negative for malignancy. See comment. SJ:maurice 01/11/2024 COMMENT The specimen is evaluated at the time of biopsy by Dr. Ramos. Immediate Evaluation = Negative for malignant cells. Correlation with clinical, radiologic findings and appropriate follow up are necessary. Case has been reviewed in consultation with Dr. García who concurs with the above diagnosis. IDC:PENNY MICROSCOPIC DESCRIPTION Slides are reviewed. GROSS DESCRIPTION Received in fixative is one container labeled with the patient's name and designated left lung. The specimen consists of multiple minute fragments of shaikh tissue that in aggregate measure 0.5 x <0.1 x <0.1 cm. The specimen is totally submitted in one cassette. Three touch imprints are prepared at the time of core biopsy. / AM:maurice 01/08/2024 TC:5 CPT: 55934, 58568
--- OUTSIDE RECORDS SUMMARY | 2024-01-08 08:35 | XMS RPT_ITS | CCD ---
Author Name Unknown Address [id number] [place] [address] Organization [facility] Care Team Providers Care Polystyrene Bead Molder Name Role Phone SANFORD Corey CNP, WENDY Galan Primary Care Phys ician LONDON KAMINSKI, JESUS Primary Care Physician LONDON KAMINSKI, JESUS Primary Care Cherivapia labglenn KAMINSKI, JESSU Attending Arianne KAMINSKI, JESUS Attending Arianne KAMINSKI, JESUS Primary Care Unavai lable LONDON KAMINSKI, JESUS Attending Arianne KAMINSKI, JESUS Primary Care Unavai lable Medications Current Medications Medication Drug Class(es) Dates Sig (Normalized) Sig (Original) erythromycin 0.005 mg/mg ophthalmic ointment (2 sources) Macrolide, Macrolide Antimicrobial Start: 11-25-2023 erythromycin 0.5% ophthalmic ointment Dose = 1 alvarado, Eye, left, QID, 1 alvarado = 0.5 inch, # 3.5 gram(s), 0 Refill(s), Pharmacy: [id number], Hordeolum of left eye, 166, cm, 11/25/23 9:57:00 EST, Height, kg, 11/25/23 9:57:00 EST, Dosing Weight Start Date: 11/25/23 Status: Ordered hydroCHLOROthiazide 12.5 mg / irbesartan 150 mg oral tablet (3 sources) Thiazide Diuretic, Angiotensin 2 Receptor Nic Start: 11-25-2023 End: 12-25-2023 take 1 tablet by mouth once daily hydrochlorothiaz jennifer-irbesartan 12.5 mg-150 mg oral tablet Dose = 1 tab(s), Oral, Daily, # 30 tab(s), 0 Refill(s), Pharmacy: [id number], Hypertension, 166, cm, 11/25/23 9:57:00 EST, Height, kg, 11/25/23 9:57:00 EST, Dosing Weight Start Date: 11/25/23 Stop Date: 12/25/23 Status: Ordered Problems Problem Classification Problem Date Documented Da te Episodic/Chronic Diabetes mellitus without complication (3 sources) Impaired fasting glycemia 09-23-2021 Episodic Essential hypertension (4 sources) Hypertensive disorder 09-07-2017 Chronic Genitourinary symptoms and ill-defined conditions (3 sources) Dysuria 09-23-2021 Episodic Hyperplasia of prostate (3 sources) Benign prostatic hypertrophy without outflow obstruction 09-23-2021 Chronic Other eye disorders (2 sources) Ectropion of left eyelid 11-25-2023 Episodic Unclassified (20 sources) Patient encounter status 03-07-2021 Results Test Name Value Interpretation Reference Range Facil ity Encounters Encounter Date Encounter Type Care Provider Facility Start: 12-28-2023 ambulatory JESUS Lazar LEAD APPLIER-UPHOLSTERY TECHNICIAN Facility:A Start: 12-16-2023 End: 12-17-2023 ambulatory JESUS CALLAHAN LEAD APPLIER-UPHOLSTERY TECHNICIAN Facility:B Start: 12-16-2023 End: 12-16-2023 Patient encounter procedure JESUS CALLAHAN LEAD APPLIER-UPHOLSTERY TECHNICIAN [facility] Start: 11-27-2023 End: 11-28-2023 ambulatory JESUS LONDON LEAD APPLIER-UPHOLSTERY TECHNICIAN Facility:B Start: 11-27-2023 End: 11-27-2023 Patient encounter procedure JESUS CALLAHAN LEAD APPLIER-UPHOLSTERY TECHNICIAN [facility] Start: 09-23-2021 End: 09-27-2021 Outreach Lab WENDY CHRISTINA LEAD APPLIER - UPHOLSTERY TECHNICIAN [facility] Start: 08-16-2021 End: 08-20-2021 Outreach Lab WENDY CHRISTINA LEAD APPLIER - UPHOLSTERY TECHNICIAN [facility] Procedures Date Procedure Procedure Detail Performing Clinician Start: 11-09-2019 Colonoscopy JESUS CARMEN DAYO LEAD APPLIER-UPHOLSTERY TECHNICIAN Start: 11-09-1984 Vasectomy JESUS CARMEN ETLER LEAD APPLIER-UPHOLSTERY TECHNICIAN Immunizations Immunization Date Immunization Notes Care Provider Fa cility 05-16-2016 pneumococcal polysaccharide vaccine, 23 valent WENDY CHRISTINA LEAD APPLIER - UPHOLSTERY TECHNICIAN [facility] 05-16-2016 tetanus toxoid, redu angela diphtheria toxoid, and acellular pertussis vaccine, adsorbed WENDY CHRISTINA LEAD APPLIER - UPHOLSTERY TECHNICIAN [facility] Payers Date Payer Category Payer Medicare [id number] 1955 Unknown [id number] 1955 Unknown [id number] 1955 Unknown [id number] Social History Date Type Detail Facility Start: 03-07-2021 End: 11-25-2023 Heavy tobacco smoker (finding) [facility] Sex Assigned At [facility] Evaluation + Plan note Note Date & Type Note Facility Evaluation + Plan note Future Appointments Appointment Date:10/21/2021 10:40:00 AM Scheduled Provider:WENDY CHRISTINA LEAD APPLIER - UPHOLSTERY TECHNICIAN Location:[facility] Appointment Type:PC OV [facility] Evaluation + Plan note Note Date & Type Note Facility Evaluation + Plan note Future Appointments Appointment Date:09/06/2021 09:00:00 AM Scheduled Provider:WENDY CHRISTINA APRN, CNP Location:[facility] Appointment Type:PC OV Follow Up [facility] Evaluation + Plan note Radiology Note Date & Type Note Facility Evaluation + Plan note Future Appointments Appointment Date:12/23/2023 07:00:00 AM Scheduled Provider:JESUS CALLAHAN Location:[facility] Appointment Type:PC OV Follow Up Future Scheduled TestsCT Low Dose Lung Cancer Screening (LDCT) 11/25/23 [facility] Evaluation + Plan note Note Date & Type Note Facility Evaluation + Plan note Future Appointments Appointment Date:12/23/2023 07:00:00 AM Scheduled Provider:JESUS CALLAHAN Location:[facility] Appointment Type:PC OV Follow Up [facility] Hospital course Narrative Note Date & Type Note Facility Hospital course Narrative No data available for this section [facility] Hospital Discharge instructions Note Date & Type Note Facility Hospital Discharge instructions No data available for this section [facility] Progress note Note Date & Type Note Facility Progress note No data available for this section [facility] Summary Purpose Family History No Family History Records Found Advance Directives No Advanced Directives Records Found Additional Source Comments Patient Care team informatio n (unrecognized section and content) Care Team Personnel Name: JESUS CALLAHAN Position: P4 Advanced Backup Sawyer Member Role: Primary Care Physician Address: Address: [address], [place] [address] Care Team Related Persons Name: JELLY ANDRES Care Team Personnel Name: JESUS CALLAHAN Position: P4 Advanced Backup Sawyer Member Role: Primary Care Physician Address: Address: [address] [facility] [place] [address]- Care Team Related Persons Name: JELLY ANDRES (unrecognized sect ion and content) No Status Records Found INFORMATION SOURCE (unrecogn ized section and content) FOR RECORDS PERTAINING TO PATIENTS WHO ARE OR HAVE BEEN ENROLLED IN A CHEMICAL DEPENDENCY/SUBSTANCEABUSE PROGRAM, SOME INFORMATION MAY BE OMITTED. This clinical summary was aggregated from multiple sources. Caution should be exercised in using it in the provision of clinical care. This summary normalizes information from multiple sources, and as a consequence, information in this document may materially change the coding, format and clinical context of patient data. In addition, data may be omitted in some cases. CLINICAL DECISIONS SHOULD BE BASED ON THE PRIMARY CLINICAL RECORDS. [employer] provides no warranty or guarantee of the accuracy or completeness of information in this document.
[2024-01-08 09:05] LABS: Platelet Count 327 K/mm3 (150-450)
[2024-01-08 09:22] LABS: Partial Thromboplast Time 32.2 Seconds (24.1-36.2); Prothrombin Time (Protime)PT. 12.7 SECONDS (11.7-14.9)
[2024-01-08] MEDS: Midazolam 2 MG/2 ML Syringe IV (09:33)
[2024-01-08] MEDS: 0.9% Normal Saline (250mL Bag) 250 ML 15 ML IV (09:33)
[2024-01-08] MEDS: fentaNYL 100 MCG/2 ML Ampul IV (09:35)
[2024-01-08] MEDS: Lidocaine 2% (20 ml mdv) 20 ML Vial INFILT (09:45)
--- NOTE | 2024-01-08 10:05 | RAD_ITS ---
STUDY: X-RAY CHEST REASON FOR EXAM: Male, 68 years old. Postbiopsy evaluation. TECHNIQUE: Single frontal view of the chest. COMPARISON: Earlier in the day. FINDINGS: Small stable left pneumothorax with approximately 2.5 cm of separation of visceral and parietal pleura in the left apex. Cardiomegaly with aortic tortuosity, prominent central pulmonary arteries, diffuse interstitial prominence and left lung mass, unchanged. No abnormality of the visualized soft tissue structures of the upper abdomen. RAD/Chest Insp/Exp 2 View IMPRESSION: Stable chest with small left pneumothorax noted on prior study performed one hour ago. N.B. : The above Results were Read Back by Michael Davis MD to Sharyn Chavez NP, AA, and understanding confirmed on 01/08/2024 10:47:08 (ET). Electronically Signed: Michael Davis MD at 10:48 EST ,
--- NOTE | 2024-01-08 10:40 | RAD.NOTE ---
Immediately post-biopsy pt's chest xray showed a pneumothorax. Pt denied pain and saturation levels remained above 94%. Pt taken to ED for chest tube, Aldrette unable to be completed, pt under continuous monitoring throughout entire handoff process to ED. Pt remained comfortable. Pt's sister Honey was notified. Pt's belongings returned to him in ED.
== END | disposition home or self-care (01) ==
LOC: CT 08:01
PROVIDERS: PCP Nurse Practitioner Family; Referring Provider Internal Medicine Critical Care Medicine; Visit Provider Internal Medicine Critical Care Medicine
DX: J84.10 Pulmonary fibrosis, unspecified (principal); F17.210 Nicotine dependence, cigarettes, uncomplicated; R91.8 Other nonspecific abnormal finding of lung field; I51.7 Cardiomegaly
CPT/HCPCS: 71046; 77012; 85049; 85610; 85730; 88172; 88305; 88313; 99156; J7050; A4216; C2613

== ENCOUNTER → 2024-01-15 | Outpatient (CLI) | payer MEDICARE, SELFPAY ==
--- NOTE | 2024-01-08 11:08 | PRO.PCM_ITS ---
Procedure Report Date of Procedure: 01/08/24 Assessment & Plan Assessment/Plan (1) Pulmonary nodules: PLAN: PROCEDURE: CT GUIDED CORE NEEDLE LUNG BIOPSY ORDERING PROVIDER: Dr. Catalan INDICATION: Male, 68 years old. Left upper lobe mass. PROVIDER: YAMILEX Alegre CONSENT: Written informed consent was obtained having explained the risks, benefits and alternatives in detail with the [ ] who accepted the risks and agreed to proceed. Laboratory review and clinical assessment was performed. PRE-PROCEDURE SEDATION ASSESSMENT: Current history and physical dictated by referring physician and reviewed. No clinical changes since date of exam. Patient has a Mallampati Score of Class [ ] and ASA Class of [ ]. PROCEDURAL SEDATION PROTOCOL: The Drugs used were: [ ] mg Versed, IV, and [ ] mcg Fentanyl, IV. The sedation time was: [ ] minutes, starting at [ ] and terminated at [ ]. The procedural sedation protocol was independently monitored by the department nurse. RADIATION DOSAGE (If Supplied By Facility): CTDIvol = [ ] mGy, DLP = [ ] mGycm Individualized dose optimization techniques were used for this CT. TECHNIQUE: The patient was placed in a [ ] position. A noncontrast CT was performed to localize the lesion in the [ ]. The skin surface was prepped and draped in a sterile fashion. [ ]% lidocaine was used for local anesthesia. Using CT guidance, a [ ]-gauge coaxial biopsy device was advanced to the periphery of the lesion. A total of [ ] core specimens were obtained. Specimens were microscopically reviewed by pathology in the CT suite and placed in formalin solution. BioSentry tract sealant system was deployed at the biopsy site, and the biopsy needle was removed. A sterile occlusive dressing was applied to the biopsy site. The patient tolerated the procedure well. An immediate chest xray was ordered, per protocol. A negative biopsy does not exclude malignancy. Further imaging or clinical followup based on patient condition and degree of clinical suspicion for malignancy. Suggest rebiopsy, if biopsy results do not match with clinical scenario. IMPRESSION: 1. CT directed core needle biopsy of [ ] nodule using CT image guidance with image documentation as described. Pathology results are pending. 2. Procedural Sedation protocol utilized with independent monitoring by the department nurse. Procedures Radiology Radiology CT Procedures: [id number] Biopsy Lung
--- NOTE | 2024-01-08 11:08 | PCM.OP.PRO ---
Procedure Report Date of Procedure: 01/08/24 Assessment & Plan Assessment/Plan (1) Pulmonary nodules: PLAN: PROCEDURE: CT GUIDED CORE NEEDLE LUNG BIOPSY ORDERING PROVIDER: Dr. Catalan INDICATION: Male, 68 years old. Left lower lobe nodule PROVIDER: YAMILEX Alegre CONSENT: Written informed consent was obtained having explained the risks, benefits and alternatives in detail with the patient who accepted the risks and agreed to proceed. Laboratory review and clinical assessment was performed. PRE-PROCEDURE SEDATION ASSESSMENT: Current history and physical dictated by referring physician and reviewed. No clinical changes since date of exam. Patient has an ASA Class of 2. PROCEDURAL SEDATION PROTOCOL: The Drugs used were: 1 mg Versed, IV, and 25 mcg Fentanyl, IV. The sedation time was: 24 minutes, starting at 9:33 AM and terminated at 9:57 AM. The procedural sedation protocol was independently monitored by the department nurse. RADIATION DOSAGE (If Supplied By Facility): CTDIvol = 15.97 mGy, DLP = 249.91 mGycm Individualized dose optimization techniques were used for this CT. TECHNIQUE: The patient was placed in a prone position. A noncontrast CT was performed to localize the lesion in the left lower lobe. The skin surface was prepped and draped in a sterile fashion. 2% lidocaine was used for local anesthesia. Using CT guidance, a 20-gauge coaxial biopsy device was advanced to the periphery of the lesion. A total of 5 core specimens were obtained. Specimens were microscopically reviewed by pathology in the CT suite and placed in formalin solution. BioSentry tract sealant system was deployed at the biopsy site, and the biopsy needle was removed. A sterile occlusive dressing was applied to the biopsy site. The patient tolerated the procedure well. An immediate chest xray was ordered, per protocol. A negative biopsy does not exclude malignancy. Further imaging or clinical followup based on patient condition and degree of clinical suspicion for malignancy. Suggest rebiopsy, if biopsy results do not match with clinical scenario. IMPRESSION: 1. CT directed core needle biopsy of left lower lobe nodule using CT image guidance with image documentation as described. Pathology results are pending. 2. Procedural Sedation protocol utilized with independent monitoring by the department nurse. Procedures Radiology Radiology CT Procedures: [id number] Biopsy Lung
--- NOTE | 2024-01-15 12:00 | RAD_ITS ---
STUDY: X-RAY CHEST REASON FOR EXAM: Male, 68 years old. Follow-up of pneumothorax. TECHNIQUE: Frontal and lateral views of the chest. COMPARISON: 01/09/2024 FINDINGS: Stable hyperinflation. Diffuse interstitial prominence, left greater than right predominantly in the upper lobes and lingular segment of the left upper lobe. Lateral There is no demonstrated pleural abnormality. Normal size heart. Normal mediastinum and tomasz. Normal visualized pulmonary arteries. Aortic tortuosity unchanged. Normal visualized thoracic spine. Normal visualized ribs, clavicles, and shoulders. No abnormality of the visualized soft tissue structures of the upper abdomen. RAD/Chest PA and Lateral IMPRESSION: Stable hyperinflation with interstitial prominence, left greater than right. No pneumothorax. Electronically Signed: Michael Davis MD at 14:30 EST ,
--- OUTSIDE RECORDS SUMMARY | 2024-01-15 12:24 | XMS RPT_ITS | CCD ---
Author Name Unknown Address [address] [facility] [address] [place] [address] Organization [facility] Care Team Providers Care Callisthenics Instructor Name Role Phone SANFORD Corey CNP, WENDY Galan Primary Care Phys ician LONDON KAMINSKI, JESUS Primary Care Physician LONDON KAMINSKI, JESUS Primary Care Cherivai lable LONDON KAMINSKI, JESUS Attending Cherivapia lablgenn KAMINSKI, JESUS Attending Unavai lable LONDON KAMINSKI, JESUS Primary Care Unavai lable LONDON KAMINSKI, JESUS Attending Unavai labglenn KAMINSKI, JESUS Primary Care Unavai lable Medications Current Medications Medication Drug Class(es) Dates Sig (Normalized) Sig (Original) erythromycin 0.005 mg/mg ophthalmic ointment (2 sources) Macrolide, Macrolide Antimicrobial Start: 11-25-2023 erythromycin 0.5% ophthalmic ointment Dose = 1 alvarado, Eye, left, QID, 1 alvarado = 0.5 inch, # 3.5 gram(s), 0 Refill(s), Pharmacy: [id number], Hordeolum of left eye, 166, cm, [...] Daily, # 30 tab(s), 0 Refill(s), Pharmacy: [id number], Hypertension, 166, cm, 11/25/23 9:57:00 EST, [...] Start: 12-31-2023 End: 01-01-2024 ambulatory JESUS LONDON METAL CAN INSPECTOR-TECHNOLOGY RESOURCE TEACHER Facility:A Start: 12-16-2023 End: 12-17-2023 ambulatory JESUS LONDON METAL CAN INSPECTOR-TECHNOLOGY RESOURCE TEACHER Facility:B Start: 12-16-2023 End: 12-16-2023 Patient encounter procedure JESUS LONDON METAL CAN INSPECTOR-TECHNOLOGY RESOURCE TEACHER [facility] Start: 11-27-2023 End: 11-28-2023 ambulatory JESUS LONDON METAL CAN INSPECTOR-TECHNOLOGY RESOURCE TEACHER Facility:[facility] Start: 11-27-2023 End: 11-27-2023 Patient encounter procedure JESUS LONDON METAL CAN INSPECTOR-TECHNOLOGY RESOURCE TEACHER [facility] Start: 09-23-2021 End: 09-27-2021 Outreach Lab WENDY CHRISTINA METAL CAN INSPECTOR - TECHNOLOGY RESOURCE TEACHER [facility] Start: 08-16-2021 End: 08-20-2021 Outreach Lab WENDY CHRISTINA METAL CAN INSPECTOR - TECHNOLOGY RESOURCE TEACHER [facility] Procedures Date Procedure Procedure Detail Performing Clinician Start: 11-09-2019 Colonoscopy JESUS CARMEN DAYO METAL CAN INSPECTOR-TECHNOLOGY RESOURCE TEACHER Start: 11-09-1984 Vasectomy JESUS CARMEN ETGORDO METAL CAN INSPECTOR-TECHNOLOGY RESOURCE TEACHER Immunizations Immunization Date Immunization Notes Care Provider Fa cility 05-16-2016 pneumococcal polysaccharide vaccine, 23 valent WENDY CHRISTINA METAL CAN INSPECTOR - TECHNOLOGY RESOURCE TEACHER [facility] 05-16-2016 tetanus toxoid, redu angela diphtheria toxoid, and acellular pertussis vaccine, adsorbed WENDY CHRISTINA METAL CAN INSPECTOR - TECHNOLOGY RESOURCE TEACHER [facility] Payers Date Payer Category Payer Medicare [id number] 1955 Unknown [id number] 1955 Unknown [id number] 1955 Unknown [id number] Social History Date Type Detail Facility Start: 03-07-2021 End: 11-25-2023 Heavy tobacco smoker (finding) [facility] Sex Assigned At [facility] Evaluation + Plan note Note Date & Type Note Facility Evaluation + Plan note Future Appointments Appointment Date:10/21/2021 10:40:00 AM Scheduled Provider:WENDY CHRISTINA METAL CAN INSPECTOR - TECHNOLOGY RESOURCE TEACHER Location:[facility] Appointment Type:PC OV [facility] Evaluation + Plan note Note Date & Type Note Facility Evaluation + Plan note Future Appointments Appointment Date:09/06/2021 09:00:00 AM Scheduled Provider:WENDY CHRISTINA APRN, CNP Location:[facility] Appointment Type:PC OV Follow Up [facility] Evaluation + Plan note Radiology Note Date & Type Note Facility Evaluation + Plan note Future Appointments Appointment Date:12/23/2023 07:00:00 AM Scheduled Provider:JESUS CALLAHAN Location:[facility] Appointment Type:PC OV Follow Up Future Scheduled TestsCT Low Dose Lung Cancer Screening (LDCT) 11/25/23 [facility] Evaluation + Plan note Note Date & Type Note Facility Evaluation + Plan note Future Appointments Appointment Date:12/23/2023 07:00:00 AM Scheduled Provider:JESUS CALLAHAN Location:[facility] Appointment Type:PC OV Follow Up [facility] Hospital course Narrative Note Date & Type Note Facility Hospital course Narrative No data available for this section [facility] Hospital Discharge instructions Note Date & Type Note Facility Hospital Discharge instructions No data available for this section [facility] Progress note Note Date & Type Note Facility Progress note No data available for this section [facility] Summary Purpose Family History No Family History Records Found Advance Directives No Advanced Directives Records Found Additional Source Comments Patient Care team informatio n (unrecognized section and content) Care Team Personnel Name: JESUS CALLAHAN Position: P4 Advanced Mold Checker Member Role: Primary Care Physician Address: Address: [address] [place] [address] [place] Care Team Related Persons Name: JELLY ANDRES Care Team Personnel Name: JESUS CALLAHAN Position: P4 Advanced Mold Checker Member Role: Primary Care Physician Address: Address: [address] [facility] [place] [address]- Care Team Related Persons Name: JELLY ANDRES [...] BE BASED ON THE PRIMARY CLINICAL RECORDS. [employer] provides no warranty or guarantee of the accuracy or completeness of information in this document.
[2024-01-15 12:27] VITALS: PULSE 109; PULSE 110; PULSE 112; PULSE 115; PULSE 117; PULSE 90; PULSE 96; O2SAT 95; O2SAT 96; O2SAT 97; O2SAT 98
--- NOTE | 2024-01-18 12:50 | PCM.PSN.6M ---
PSN 6 Minute Walk Test 6 Minute Walk Test 6 Minute Walk Test: 6 Minute Walk Test PSN:6-Minute Walk Test Start: 01/15/24 12:26 Freq: Status: Active Protocol: RESP.6MINW Document 01/15/24 12:27 ISAIAS (Rec: 01/15/24 12:29 ISAIAS [id number]) 6 Minute Walk Test Date Performed 01/15/24 Time Performed 12:10 Height 5 ft 4 in Weight: 53.977 kg Weight in Pounds 119.[address]: Pierre Catalan Assistive device used: None Pre-test Oxygen Delivery Method Room Air Pulse Ox 97 Pulse Rate (60-100) 96 Dyspnea Anton Scale (0-10) 0 Exertion Anton Scale (6-20) 6 1st minute Oxygen Delivery Method Room Air Pulse Ox 97 Pulse Rate (60-100) 112 H 2nd minute Oxygen Delivery Method Room Air Pulse Ox 96 Pulse Rate (60-100) 115 H 3rd minute Oxygen Delivery Method Room Air Pulse Ox 96 Pulse Rate (60-100) 110 H 4th minute Oxygen Delivery Method Room Air Pulse Ox 96 Pulse Rate (60-100) 109 H 5th minute Oxygen Delivery Method Room Air Pulse Ox 97 Pulse Rate (60-100) 115 H 6th minute Oxygen Delivery Method Room Air Pulse Ox 95 Pulse Rate (60-100) 117 H Dyspnea Anton Scale (0-10) 2 Exertion Anton Scale (6-20) 12 Post-test Oxygen Delivery Method Room Air Pulse Ox 98 Pulse Rate (60-100) 90 Full Laps Walked 16 Partial Lap, Number of Tiles Walked 12 Total Distance Walked (ft) 956 Interpretation Interpretation: The patient was able to ambulate 956 feet over the course of 6 minutes on room air with no assistive devices or breaks. The patient experienced no significant desaturation, but did have tachycardia as high as 117 bpm. These findings are consistent with a cardiovascular limitation exercise tolerance. Recommendations Recommendations: No supplemental oxygen is indicated at this time.
== END | disposition home or self-care (01) ==
PROVIDERS: PCP Nurse Practitioner Family; Referring Provider Internal Medicine Critical Care Medicine; Visit Provider Internal Medicine Critical Care Medicine
DX: R91.8 Other nonspecific abnormal finding of lung field (principal); F17.210 Nicotine dependence, cigarettes, uncomplicated
CPT/HCPCS: 71046; 94618

== ENCOUNTER 2024-09-07 18:34 | Emergency (ER) | payer MEDICARE, SELFPAY ==
[2024-09-07 18:35] VITALS: BP 135/113; PULSE 69; RESP 18; TEMP 36.2; O2SAT 92
--- NOTE | 2024-09-07 19:56 | EKG12_ITS ---
Test Reason : SYNCOPE Blood Pressure : */* mmHG Vent. Rate : 64 BPM Atrial Rate : 64 BPM P-R Int : 126 ms QRS Dur : 92 ms QT Int : 462 ms P-R-T Axes : 88 90 108 degrees QTcB Int : 476 ms Sinus rhythm with Premature supraventricular complexes Rightward axis Septal infarct , age undetermined T wave abnormality, consider anterolateral ischemia Abnormal ECG Confirmed by SANJU STONE, AYLEEN ([id number]), editorial project manager CANDY SHELL ([id number]) on 09/09/2024 8:17:16 AM Referred By: Ministerio Mckeon Confirmed By: AYLEEN BILLS MD
[2024-09-07 20:29] LABS: Absolute Lymphocyte Count 2.08 X10^3/uL (0.83-4.51); Absolute Neutrophil Count 5.5 X10^3/uL (2.0-7.7); Basophil# 0.07 X10^3/uL; Basophil% 0.8 % (0-1); Eosinophil# 0.17 X10^3/uL; Eosinophils% 1.9 % (0-5); Hemoglobin 14.6 g/dL (13.0-16.5); Lymphocyte # 2.08 X10^3/ul (0.83-4.51); Lymphocyte % 22.9 % (19-41); Mean Corp Hgb Conc 35.6 g/dL (32-36); Mean Corpuscular Hgb 31.6 pg (27.0-32.0); Mean Corpuscular Volume 88.7 fL (80-94); Mean Platelet Vol. 9.1 fl (6.2-12.0); Monocyte% 13.2 % (0-10); NRBC Flagged by Analyzer 0 % (0-5); Neutrophil # 5.49 X10^3/uL (2.7-7.7); Neutrophil % 60.2 % (47-70); Platelet Count 457 K/mm3 (150-450); RBC Distribution Width CV 12.3 % (11.6-14.6); RBC Distribution Width SD 40.1 fl (35.1-43.9); Red Blood Count 4.62 M/mm3 (4.6-6.2); White Blood Count 9.1 K/mm3 (4.4-11.0)
[2024-09-07 20:35] VITALS: BP 92/54; PULSE 70; RESP 18; O2SAT 95
[2024-09-07 20:46] LABS: Anion Gap 10 (5-15); BUN 8 mg/dL (7-18); BUN/Creat Ratio 11.8 RATIO (10-20); Calcium,Total 8.9 mg/dL (8.5-10.1); Chloride 92 mmol/L (98-107); Creatinine, Serum 0.68 mg/dL (0.70-1.30); EST Glomerular Filtration Rate 123 mL/min (>60); Est Glom Filt Rate - Afr Amer 149 mL/min (>60); Estimated Creatinine Clearance 67.09 ml/min; Glucose 90 mg/dL (74-106); Potassium 3.6 mmol/L (3.5-5.1); Sodium Level 125 mmol/L (136-145)
[2024-09-07 22:00] VITALS: BP 98/53; PULSE 60; RESP 16; O2SAT 97
--- NOTE | 2024-09-07 22:19 | CT_ITS ---
EXAM: CT HEAD WITHOUT INTRAVENOUS CONTRAST CLINICAL INDICATION: syncope TECHNIQUE: Multiple axial images were obtained of the head without intravenous contrast. This CT exam was performed using one or more of the following dose reduction techniques: automated exposure control, adjustment of the mA and/or kV according to patient size, and/or use of iterative reconstruction technique. RADIATION DOSE: CTDIvol = 44.99 mGy, DLP = 812.98 mGy-cm COMPARISON: 03/12/2016. FINDINGS: BRAIN AND EXTRA-AXIAL SPACES: Mild generalized atrophy. Mild low density bilaterally in the deep white matter. No intra- or extra-axial hemorrhage. No evidence of acute infarct. No intracranial mass or mass effect. There is preservation of the orellana/white matter interface. Posterior fossa structures are unremarkable. No hydrocephalus. Basal cisterns are patent. BONES/JOINTS: Unremarkable. No discrete lytic or blastic abnormalities. SINUSES: Unremarkable as visualized. Clear. MASTOID AIR CELLS: Unremarkable. Clear. ORBITS: Visualized globes, extraocular muscles, optic nerves and retrobulbar fat appear unremarkable. CT/Brain/Head without Contrast IMPRESSION: Mild generalized atrophy. Mild low density bilaterally in the deep white matter. This likely represents chronic small vessel ischemic changes in the deep white matter. Electronically Signed: Lenny Harrison MD at 22:47 EDT ,
--- NOTE | 2024-09-07 22:28 | EDS_ITS ---
HPI History of Present Illness Chief Complaint: Syncope Informant: patient Narrative Narrative: Patient is a 69-year-old male with past medical history of hypertension and BPH as well as tobacco use and daily alcohol use. He states that she has had nasal congestion and cough for the last 5 to 7 days and has been at home with someone who has known COVID. He states that today after sitting for a while he decided he was going to get up and go make a hamburger and when he did so he felt lightheaded and had a bout of passing out. He states he fell from a standing position and struck the floor and hit his head. He denies any history of bleeding disorder or blood thinner use. He states he was able to get back up shortly after hitting the ground and has felt normal since that time but with the syncopal event happening family recommended he come in for evaluation and therefore presents at this time. He states he did not notice any type of palpitations or bouts of heart racing or bradycardia [facility] Medical History Vision loss of left eye Smoker Mass of left lung Hypertension Nicotine dependence, cigarettes, uncomplicated Home Medications ?Medication ?Instructions ?Recorded ?Last Taken ?Type irbesartan 150 1 tab PO DAILY 12/29/23 01/06/24 History mg-hydrochlorothiazide 12.5 mg tablet tamsulosin 0.4 mg capsule 0.4 mg PO DAILY 12/29/23 01/06/24 History Allergy/AdvReac Type Severity Reaction Status Date / Time No Known Allergies Allergy Verified 09/07/24 18:35 Family History (Updated 01/08/24 @ 12:[address] Emma Wilson DO) Other Hypertension Surgical History H/O vasectomy Social History (Updated 01/08/24 @ 12:[address] Emma Wilson DO) household members: family housing: house current occupational status: retired Smoking Status: Current every day smoker tobacco type: cigarettes alcohol intake: current alcohol intake frequency: a few times a month substance use type: does not use ROS ROS ED Constitutional Constitutional ED: Denies chills or fever(s) Eyes Eyes: Denies change in vision ENT ENT ED: Reports rhinorrhea and sore throat Cardiovascular Cardiovascular: Reports other Details: Positive syncope ; Denies chest pain, palpitations or racing heartbeat Respiratory/Chest Respiratory/Chest: Reports cough; Denies dyspnea Gastrointestinal Gastrointestinal: Denies abdominal pain, diarrhea, nausea or vomiting Genitourinary Genitourinary ED: Denies dysuria Musculoskeletal Musculoskeletal: Denies back pain or neck pain Integumentary Reports Abrasions Neurologic Neurologic: Denies headache(s) Hematologic/Lymphatic Hematologic/Lymphatic: Denies easy bleeding or easy bruising EXAM Physical Exam Const Vital Signs: 09/07/24 18:35 09/07/24 20:35 09/07/24 22:00 Temperature 97.2 F L Temperature Source Temporal Pulse Rate 69 70 60 Pulse Rate [Lying] Pulse Rate [Sitting (for 1 minute prior to obtaining)] Pulse Rate [Standing (for 1 minute prior to obtaining)] Respiratory Rate 18 18 16 Respiratory Effort Respiratory Pattern Blood Pressure 135/113 H 92/54 L 98/53 L Blood Pressure [Lying] Blood Pressure [Sitting (for 1 minute prior to obtaining)] Blood Pressure [Standing (for 1 minute prior to obtaining)] Blood Pressure Mean 120 66 68 Blood Pressure Mean [Lying] Blood Pressure Mean [Sitting (for 1 minute prior to obtaining)] Blood Pressure Mean [Standing (for 1 minute prior to obtaining)] Pulse Ox 92 95 97 Oxygen Delivery Method Room Air Room Air Room Air 09/07/24 22:39 09/07/24 22:39 09/07/24 22:39 Temperature Temperature Source Pulse Rate Pulse Rate [Lying] 59 L Pulse Rate [Sitting (for 1 minute prior to obtaining)] 60 Pulse Rate [Standing (for 1 minute prior to obtaining)] 60 Respiratory Rate Respiratory Effort Normal Non-Labored Respiratory Pattern Normal Blood Pressure Blood Pressure [Lying] 102/50 L Blood Pressure [Sitting (for 1 minute prior to obtaining)] 110/49 L Blood Pressure [Standing (for 1 minute prior to obtaining)] 103/60 Blood Pressure Mean Blood Pressure Mean [Lying] 67 Blood Pressure Mean [Sitting (for 1 minute prior to obtaining)] 69 Blood Pressure Mean [Standing (for 1 minute prior to obtaining)] 74 Pulse Ox 97 Oxygen Delivery Method Room Air 09/08/24 00:00 09/08/24 01:29 Temperature 98.5 F Temperature Source Pulse Rate 69 54 L Pulse Rate [Lying] Pulse Rate [Sitting (for 1 minute prior to obtaining)] Pulse Rate [Standing (for 1 minute prior to obtaining)] Respiratory Rate 20 H 16 Respiratory Effort Respiratory Pattern Blood Pressure 97/50 L 106/53 L Blood Pressure [Lying] Blood Pressure [Sitting (for 1 minute prior to obtaining)] Blood Pressure [Standing (for 1 minute prior to obtaining)] Blood Pressure Mean 65 70 Blood Pressure Mean [Lying] Blood Pressure Mean [Sitting (for 1 minute prior to obtaining)] Blood Pressure Mean [Standing (for 1 minute prior to obtaining)] Pulse Ox 98 98 Oxygen Delivery Method Room Air Positive well nourished and well developed General Appearance ED: well developed; Negative for pallor HEENT HEENT Narrative: Patient has a superficial abrasion and small hematoma along the left lateral portion of the forehead just above the eyebrow. Otherwise no signs of depressed or basilar skull fracture Nasal mucosa is hyperemic and boggy. There is cobblestoning noted in the posterior pharynx consistent with sinus drainage but no secondary findings to suggest infection No tongue or cheek biting to suggest seizure Mucous membranes are slightly dry and tacky Eyes PERRL and EOMs intact bilaterally General Eye ED: Negative for scleral icterus Neck supple Neck Narrative: No bony deformity or step-off of the cervical spine no midline tenderness to palpation Chest Wall palpation of chest normal Chest Narrative: No bony deformity or crepitance noted Resp normal respiratory effort Resp Narrative: Breath sounds are diminished throughout with diffuse rhonchi consistent with history of smoking but no signs of respiratory distress Cardio regular rate and regular rhythm Rate: other Other Details: Radial and carotid pulses are equal and symmetric GI normal to inspection, nondistended, normoactive bowel sounds, non-tender, non- distended and no masses Auscultation: normoactive bowel sounds Palpation: soft Back/Spine Back/Spine Narrative: No bony deformity or step-off of the thoracic or lumbar spine no midline tenderness to palpation Extremity normal to inspection Extremity Narrative: Pelvis is stable there is no shortening or external rotation of either lower extremity. Patient is able to move all extremities without difficulty Neuro oriented x3, CN's II-XII intact bilaterally and no sensory deficits noted Neuro Narrative: GCS of 15 Cranial nerves II through XII are grossly intact there are no focal neurologic deficits No pronator drift no dysmetria no truncal ataxia NIH stroke scale score of 0 Sensorium / Orientation: alert Motor Exam: strength 5/5 throughout Psych mental status grossly normal Skin no rashes or lesions noted Skin Narrative: Superficial abrasion and hematoma to the left portion of the forehead as documented above Skin turgor is increased as well General Skin Exam: Negative for jaundice or pallor MDM MDM MDM Narrative Medical decision making narrative: Patient arrived to the ER awake and alert with normal neurologic exam. He reported a syncopal event after standing up and this is most consistent with orthostatic hypotension. In order to ensure he does not have a traumatic skull fracture or traumatic brain injury such as a traumatic subarachnoid or subdural hemorrhage a CT scan was obtained. Also as his syncope could be related to acute blood loss anemia or acute kidney injury basic labs were ordered. Head CT revealed age-related findings without acute trauma. Labs showed hyponatremia at 125 but this is consistent with his history of alcohol use. Otherwise there is no clinically significant findings. Orthostatic vitals were obtained and were technically negative but upon standing patient felt like he was going to pass out. Therefore he was given 1 L of fluid and upon reevaluation can stand and ambulate with a steady gait and no further bouts of syncope. Therefore with r esolution of symptoms and overall negative workup there is no need for admission and he is otherwise safe for discharge History & Record Review Discussion w/independent historian: Patient and Family Lab Data Attestation: I reviewed the patient's lab results. Labs: Laboratory Results - last 24 hr 09/07/24 09/08/24 20:20 00:17 WBC 9.1 RBC 4.62 Hgb 14.6 Hct 41.0 MCV 88.7 MCH 31.6 MCHC 35.6 RDW Std Deviation 40.1 RDW Coeff of [place] 12.3 Plt Count 457 H MPV 9.1 Immature Gran % (Auto) 1.000 H Neut % (Auto) 60.2 Lymph % (Auto) 22.9 [place] % (Auto) 13.2 H Eos % (Auto) 1.9 Baso % (Auto) 0.8 Absolute Neuts (auto) 5.5 Absolute Lymphs (auto) 2.08 Nucleated RBC % 0 Sodium 125 L Potassium 3.6 Chloride 92 L Carbon Dioxide 23.0 Anion Gap 10 BUN 8 Creatinine 0.68 L Estim Creat Clear Calc 67.09 Est GFR (MDRD) Af Amer 149 Est GFR (MDRD) Non-Af 123 BUN/Creatinine Ratio 11.8 Glucose 90 Calcium 8.9 Ethyl Alcohol 39.0 POC Glucose 97 Radiography Diagnostic Testing: Clinical Impression(s) from Imaging Studies Brain CT 09/07/24 22:19 IMPRESSION: Mild generalized atrophy. Mild low density bilaterally in the deep white matter. This likely represents chronic small vessel ischemic changes in the deep white matter. Electronically Signed: Lenny Harrison MD at 22:47 EDT , Discharge Plan Triage Chief Complaint: Syncope ED Provider: Ministerio Mckeon Dx/Rx/DC Orders Clinical Impression: Orthostatic syncope, Pulmonary nodules, Mild dehydration, Tobacco abuse, Closed head injury, Hyponatremia Instructions: Orthostatic Hypotension Prescriptions: No Action irbesartan-hydrochlorothiazide 150-12.5 mg tablet 1 tab PO DAILY Patient Comments: TAKE 1 TABLET BY MOUTH EVERY DAY tamsulosin 0.4 mg capsule 0.4 mg PO DAILY Patient Comments: TAKE 1 CAPSULE BY MOUTH EVERY DAY Primary Care Provider: JESUS CALLAHAN Referrals: JESUS CALLAHAN [facility] [Primary Care Provider] - Print Language: Estonian Disposition Disposition: Home, Self Care Discharge Date/Time: 09/08/24 01:30
[2024-09-07 22:39] VITALS: BP 102/50; BP 103/60; BP 110/49; PULSE 59; PULSE 60; O2SAT 97
[2024-09-07] MEDS: 0.9% Normal Saline (1000mL) 1,000 ML 999 ML IV (22:58)
[2024-09-08] VITALS: BP 97/50; PULSE 69; RESP 20; O2SAT 98
[2024-09-08 00:37] LABS: Bedside Glucose 97 mg/dL (74-106)
[2024-09-08 01:29] VITALS: BP 106/53; PULSE 54; RESP 16; TEMP 36.9; O2SAT 98
== END 2024-09-08 01:30 | disposition home or self-care (01) ==
PROVIDERS: Emergency Provider Emergency Medicine; PCP Nurse Practitioner Family; Referring Provider Emergency Medicine; Visit Provider Emergency Medicine
DX: R55 Syncope and collapse (principal); S09.90XA Unspecified injury of head, initial encounter; E87.1 Hypo-osmolality and hyponatremia; R91.8 Other nonspecific abnormal finding of lung field; E86.0 Dehydration; Z79.899 Other long term (current) drug therapy; W19.XXXA Unspecified fall, initial encounter
CPT/HCPCS: 70450; 80048; 82077; 82962; 85025; 87631; 93005; 96360; 96361; 99285; J7030; A4216

== ENCOUNTER 2024-11-06 21:25 | Inpatient (IN) | payer MEDICARE, SELFPAY ==
[2024-11-06 21:27] VITALS: BP 116/74; PULSE 67; RESP 18; TEMP 36.9; O2SAT 95; BMI 19.0
--- NOTE | 2024-11-06 21:41 | EDS_ITS ---
HPI HPI - Fall History of Present Illness Chief Complaint: Fall Informant: patient and family Occured/Mechanism Occurred: Today Mechanism/Context: Yes same level fall Narrative: Possible seizure versus syncopal episode Pain/Injury Location: Head Pain Location: head Quality of Pain: Dull Worsened by: Nothing Relieved by: Nothing Narrative Narrative: Patient presents with a possible syncopal episode that occurred today. Family states that patient had a questionable seizure tonight. Family states that his eyes rolled back and he arched his back. Family states patient fell to the ground and hit his head. Family denies any shaking episodes. Patient does not remember any events of this. Patient denies biting his tongue. Patient denies any bowel or bladder incontinence. Patient denies any chest pain or palpitations. Patient admits to some shortness of breath and cough over the past few days. Patient denies any fevers or chills. Patient admits to a headache that is diffuse across his entire head. Family also states patient had a recent lung biopsy. Family states that patient does not want to discuss the results with her or anyone else. Family states that she overheard patient tell someone else that his biopsy came back positive for cancer. Family is concerned that this could have spread to his brain. [facility] Medical History Vision loss of left eye Smoker Mass of left lung Hypertension Nicotine dependence, cigarettes, uncomplicated Home Medications ?Medication ?Instructions ?Recorded ?Last Taken ?Type irbesartan 150 1 tab PO DAILY 12/29/23 01/06/24 History mg-hydrochlorothiazide 12.5 mg tablet tamsulosin 0.4 mg capsule 0.4 mg PO DAILY 12/29/23 01/06/24 History Allergy/AdvReac Type Severity Reaction Status Date / Time No Known Allergies Allergy Verified 11/06/24 21:26 Family History (Updated 01/08/24 @ 12:[address] Emma Wilson DO) Other Hypertension Surgical History H/O vasectomy Social History (Updated 11/06/24 @ 21:[address] Malcolm Christy DO) household members: family housing: house current occupational status: retired Smoking Status: Current every day smoker tobacco type: cigarettes alcohol intake: current alcohol intake frequency: 0-2 drinks per day Alcohol type: beer substance use type: does not use ROS ROS ED Constitutional Constitutional ED: Reports sweats; Denies chills or fever(s) Eyes Eyes: Denies blurry vision or change in vision ENT ENT ED: Denies rhinorrhea or sore throat Cardiovascular Cardiovascular: Denies chest pain or palpitations Respiratory/Chest Respiratory/Chest: Reports cough and dyspnea Gastrointestinal Gastrointestinal: Denies nausea or vomiting Genitourinary Genitourinary ED: Denies dysuria or hematuria Musculoskeletal Musculoskeletal: Denies back pain or neck pain Integumentary Denies abscess or rash Neurologic Neurologic: Reports headache(s); Denies weakness Allergic/Immunologic Allergic/Immunologic ED: Denies mouth swelling or urticaria EXAM Physical Exam Const Vital Signs: 11/06/24 21:27 11/06/24 21:27 11/06/24 22:16 Temperature 98.4 F Temperature Source Oral Pulse Rate 67 Pulse Rate [Lying] 63 Pulse Rate [Sitting (for 1 minute prior to obtaining)] 74 Pulse Rate [Standing (for 1 minute prior to obtaining)] 81 Respiratory Rate 18 Respiratory Effort Normal Non-Labored Respiratory Depth Normal Respiratory Pattern Normal Blood Pressure 116/74 Blood Pressure [Lying] 103/55 L Blood Pressure [Sitting (for 1 minute prior to obtaining)] 110/59 L Blood Pressure [Standing (for 1 minute prior to obtaining)] 92/64 Blood Pressure Mean 88 Blood Pressure Mean [Lying] 71 Blood Pressure Mean [Sitting (for 1 minute prior to obtaining)] 76 Blood Pressure Mean [Standing (for 1 minute prior to obtaining)] 73 Pulse Ox 95 Oxygen Delivery Method Room Air Room Air 11/06/24 22:26 11/06/24 23:00 Temperature Temperature Source Pulse Rate 73 79 Pulse Rate [Lying] Pulse Rate [Sitting (for 1 minute prior to obtaining)] Pulse Rate [Standing (for 1 minute prior to obtaining)] Respiratory Rate 17 17 Respiratory Effort Respiratory Depth Respiratory Pattern Blood Pressure 114/43 L 105/87 H Blood Pressure [Lying] Blood Pressure [Sitting (for 1 minute prior to obtaining)] Blood Pressure [Standing (for 1 minute prior to obtaining)] Blood Pressure Mean 66 93 Blood Pressure Mean [Lying] Blood Pressure Mean [Sitting (for 1 minute prior to obtaining)] Blood Pressure Mean [Standing (for 1 minute prior to obtaining)] Pulse Ox 98 98 Oxygen Delivery Method Room Air Room Air Positive well nourished and well developed General Appearance ED: well developed and NAD HEENT Reports normocephalic Eyes PERRL Neck full ROM and supple Resp normal respiratory effort and clear to auscultation bilaterally Cardio regular rate and regular rhythm GI non-tender and non-distended Palpation: soft Neuro oriented x3, CN's II-XII intact bilaterally, moves all extremities, no focal mot or deficits and no sensory deficits noted [place] Coma Scale: document GCS findings Spontaneous Obeys Commands Oriented 15 Sensorium / Orientation: alert Motor Exam: strength 5/5 throughout MDM MDM MDM Narrative Medical decision making narrative: Differential diagnosis includes seizure, syncope, cardiac dysrhythmia, cardiac ischemia, pneumonia, pneumothorax, intracranial bleeding, intracranial mass, electrolyte abnormality, urinary tract infection, pancreatitis, coagulopathy, and vasovagal syncope. EKG will be obtained to assess for cardiac dysrhythmia and cardiac ischemia. CT scan of the brain will be obtained to assess for intracranial bleeding and intracranial mass. Chest x-ray will be obtained to assess for pneumonia and pneumothorax. CBC will be obtained to assess for leukocytosis and anemia. Comprehensive metabolic profile will be obtained to assess for electrolyte abnormality, renal function, and hepatic function. Lipase will be obtained to assess for pancreatitis. PT with INR and PTT will be obtained to assess for coagulopathy. Urinalysis will be obtained to assess for urinary tract infection and hematuria. High-sensitivity troponin will be obtained to assess for cardiac ischemia. 2-hour repeat high-sensitivity troponin will be obtained to assess for ongoing cardiac ischemia. Lab Data Attestation: I reviewed the patient's lab results. Lab results narrative: CBC was reviewed and was essentially within normal limits. Comprehensive metabolic profile was reviewed. Sodium was 122 and chloride was 89. Potassium was slightly low at 3.4. Creatinine was slightly low at 0.66. AST was minimally elevated at 48. The remainder is within normal limits. Lipase was reviewed and was normal at 35. High-sensitivity troponin was reviewed and was normal at 14. Urinalysis was reviewed. There is no evidence of urinary tract infection or hematuria. Serum alcohol level was reviewed and was 54. PT with INR and PTT were reviewed and were within normal limits. 2-hour repeat high- sensitivity troponin was reviewed and was normal at 16. Labs: Laboratory Results - last 24 hr 11/06/24 11/06/24 11/07/24 21:30 23:45 00:04 WBC 6.0 RBC 4.13 L Hgb 13.0 Hct 36.0 L MCV 87.2 MCH 31.5 MCHC 36.1 H RDW Std Deviation 40.6 RDW Coeff of [place] 12.8 Plt Count 314 MPV 9.4 Immature Gran % (Auto) 0.500 Neut % (Auto) 46.4 L Lymph % (Auto) 33.3 [place] % (Auto) 17.1 H Eos % (Auto) 2.0 Baso % (Auto) 0.7 Absolute Neuts (auto) 2.8 Absolute Lymphs (auto) 1.98 Nucleated RBC % 0 PT 12.6 INR 0.9 APTT 31.0 Sodium 122 L Potassium 3.4 L Chloride 89 L Carbon Dioxide 25.0 Anion Gap 7 BUN 10 Creatinine 0.66 L Estim Creat Clear Calc 63.97 Est GFR (MDRD) Af Amer 155 Est GFR (MDRD) Non-Af 128 BUN/Creatinine Ratio 15.3 Glucose 83 Calcium 8.5 Total Bilirubin 0.70 AST 48 H ALT 38 Alkaline Phosphatase 110 Troponin I High Sens 14 16 Total Protein 6.9 Albumin 3.0 L Globulin 3.9 Albumin/Globulin Ratio 0.8 L Lipase 35 Urine Color Yellow Urine Clarity Sl. Cloudy Urine pH 6.5 Ur Specific [place] 1.015 Urine Protein Negative Urine Glucose (UA) Normal Urine Ketones Negative Urine Occult Blood Negative Urine Nitrite Negative Urine Bilirubin Negative Urine Urobilinogen Normal Ur Leukocyte Esterase 25 H Urine RBC 0 SEEN Urine WBC 0-5 SEEN Ur Squamous Epith Cells 0 SEEN Urine Bacteria 0 SEEN Urine Mucus 0 SEEN Ethyl Alcohol 54.0 Radiography Diagnostic Testing: Clinical Impression(s) from Imaging Studies Brain CT 11/06/24 22:00 IMPRESSION: Mild generalized atrophy. Mild low density bilaterally in the deep white matter. This likely represents chronic small vessel ischemic changes in the deep white matter. Electronically Signed: Lenny Harrison MD at 22:17 EST , CT scan of the brain was obtained. There is no acute intracranial abnormality. There is mild generalized atrophy. There are mild low-density lesions bilaterally in the deep white matter which likely represents chronic small vessel ischemic changes. This was interpreted by the radiologist and was also independently reviewed by myself. EKG Initial EKG: Attestation: I personally reviewed and interpreted this EKG as follows: Interpretation: Sinus Rhythm (63) and Inverted T-Waves (V2 through V5) Comments: EKG was obtained. On my independent interpretation, it showed a normal sinus rhythm with a rate of 63. MS interval, QRS interval, and QTc intervals were all normal. [place] was normal. There there is T wave inversion of the precordial leads V2 through V5. Prior EKG tracings: available for review Prior: Unchanged (09/07/2024) Management Discussion w/another healthcare provider: Hospitalist (Dr. Toussaint) Treatment and Re-Evaluation Narrative: Orthostatic vital signs were obtained. Patient's blood pressure dropped to 92/64 while standing. Patient became lightheaded with this. Patient was given IV fluids. Patient was advised of his findings. Patient was advised of the need for admission to the hospital. Patient is agreeable with this. Case was discussed with the hospitalist. He will admit the patient to ICU. Patient understood and was agreeable with the plan. All questions were answered. Discharge Plan Dx/Rx/DC Orders Clinical Impression: Hyponatremia, Syncope and collapse, Orthostatic hypotension, Tobacco use disorder Disposition Disposition: Acute Care Hospital [facility]
--- NOTE | 2024-11-06 21:50 | EKG12_ITS ---
Test Reason : DYSRHYTHMIA Blood Pressure : */* mmHG Vent. Rate : 63 BPM Atrial Rate : 63 BPM P-R Int : 134 ms QRS Dur : 90 ms QT Int : 440 ms P-R-T Axes : 82 88 107 degrees QTcB Int : 450 ms Normal sinus rhythm Septal infarct , age undetermined T wave abnormality, consider anterolateral ischemia Abnormal ECG Confirmed by SANJU STONE, AYLEEN ([id number]), business editor CANDY SHELL ([id number]) on 11/07/2024 10:50:06 AM Referred By: Goldy Patino Confirmed By: AYLEEN BILLS MD
--- NOTE | 2024-11-06 22:00 | CT_ITS ---
EXAM: CT HEAD WITHOUT INTRAVENOUS CONTRAST CLINICAL INDICATION: Syncope TECHNIQUE: Multiple axial images were obtained of the head without intravenous contrast. This CT exam was performed using one or more of the following dose reduction techniques: automated exposure control, adjustment of the mA and/or kV according to patient size, and/or use of iterative reconstruction technique. RADIATION DOSE: CTDIvol = 44.99 mGy, DLP = 762.36 mGy-cm COMPARISON: 09/07/2024. FINDINGS: BRAIN AND EXTRA-AXIAL SPACES: Mild generalized atrophy. Mild low density bilaterally in the deep white matter. No intra- or extra-axial hemorrhage. No evidence of acute infarct. No intracranial mass or mass effect. There is preservation of the [place]/white matter interface. Posterior fossa structures are unremarkable. No hydrocephalus. Basal cisterns are patent. BONES/JOINTS: Unremarkable. No discrete lytic or blastic abnormalities. SINUSES: Unremarkable as visualized. Clear. MASTOID AIR CELLS: Unremarkable. Clear. ORBITS: Visualized globes, extraocular muscles, optic nerves and retrobulbar fat appear unremarkable. CT/Brain/Head without Contrast IMPRESSION: Mild generalized atrophy. Mild low density bilaterally in the deep white matter. This likely represents chronic small vessel ischemic changes in the deep white matter. Electronically Signed: Lenny Harrison MD at 22:17 EST ,
[2024-11-06 22:01] LABS: Absolute Lymphocyte Count 1.98 X10^3/uL (0.83-4.51); Absolute Neutrophil Count 2.8 X10^3/uL (2.0-7.7); Basophil# 0.04 X10^3/uL; Basophil% 0.7 % (0-1); Eosinophil# 0.12 X10^3/uL; Lymphocyte # 1.98 X10^3/ul (0.83-4.51); Lymphocyte % 33.3 % (19-41); Mean Corp Hgb Conc 36.1 g/dL (32-36); Mean Corpuscular Hgb 31.5 pg (27.0-32.0); Mean Corpuscular Volume 87.2 fL (80-94); Mean Platelet Vol. 9.4 fl (6.2-12.0); Monocyte# 1.02 X10^3/uL; Monocyte% 17.1 % (0-10); NRBC Flagged by Analyzer 0 % (0-5); Neutrophil # 2.76 X10^3/uL (2.7-7.7); Neutrophil % 46.4 % (47-70); Platelet Count 314 K/mm3 (150-450); RBC Distribution Width CV 12.8 % (11.6-14.6); RBC Distribution Width SD 40.6 fl (35.1-43.9); Red Blood Count 4.13 M/mm3 (4.6-6.2)
[2024-11-06 22:12] LABS: International Normalized Ratio 0.9; Prothrombin Time (Protime)PT. 12.6 SECONDS (11.7-14.9)
[2024-11-06 22:16] VITALS: BP 103/55; BP 110/59; BP 92/64; PULSE 63; PULSE 74; PULSE 81
[2024-11-06 22:20] LABS: ALB/GLOB Ratio 0.8 RATIO (0.9-2.4); AST(SGOT) 48 U/L (15-37); Alanine Aminotransfer ALT/SGPT 38 U/L (16-61); Alkaline Phosphatase 110 U/L (45-117); Anion Gap 7 (5-15); BUN 10 mg/dL (7-18); BUN/Creat Ratio 15.3 RATIO (10-20); Calcium,Total 8.5 mg/dL (8.5-10.1); Chloride 89 mmol/L (98-107); Creatinine, Serum 0.66 mg/dL (0.70-1.30); EST Glomerular Filtration Rate 128 mL/min (>60); Est Glom Filt Rate - Afr Amer 155 mL/min (>60); Estimated Creatinine Clearance 63.97 ml/min; Globulin 3.9 g/dL (2.2-4.2); Glucose 83 mg/dL (74-106); Lipase 35 U/L (13-75); Potassium 3.4 mmol/L (3.5-5.1); Protein, Total 6.9 g/dL (6.4-8.2); Sodium Level 122 mmol/L (136-145); Troponin-I HS (w/2H Reflex) 14 pg/mL (3.0-78.0)
[2024-11-06] MEDS: 0.9% Normal Saline (1000mL) 1,000 ML 1000 ML IV ×2 (22:20→23:44)
[2024-11-06 22:26] VITALS: BP 114/43; PULSE 73; RESP 17; O2SAT 98
[2024-11-06 23:00] VITALS: BP 105/87; PULSE 79; RESP 17; O2SAT 98
[2024-11-06 23:48] LABS: Bacteria 0 SEEN /hpf (None Seen); Mucous, Urine 0 SEEN /hpf (<or=2+); Red Blood Cells-Urine 0 SEEN /hpf (0-5); Squamous Epithelial Cells - UA 0 SEEN /hpf (0-5)
[2024-11-06 23:50] LABS: Color, Urine Yellow (Yellow); Glucose, Dipstick Normal (Normal); Ketone-Dipstick Negative (Negative); Leukocyte Esterase-Dipstick 25 /ul (Negative); Nitrite-Dipstick Negative (Negative); Occult Blood-Urine Negative /ul (Negative); Protein-Dipstick Negative (Negative); Specific Gravity, Urine 1.015 (1.002-1.030); Urine Bilirubin Dipstick Negative (Negative); Urine Clarity Sl. Cloudy (Clear); Urine Urobilinogen Normal (Normal); Urine pH 6.5 (5.0 - 8.0)
[2024-11-06 23:57] LABS: Reflex Troponin-HS? (from REC) Y
[2024-11-07] VITALS (16 sets, daily range): BP systolic 91–131; BP diastolic 49–88; PULSE 50–95; RESP 15–23; TEMP 36.4–36.9; O2SAT 93–98; BMI 19.5
[2024-11-07 00:01] LABS: White Blood Cells 0-5 SEEN /hpf (0-5)
--- NOTE | 2024-11-07 00:17 | PCM.HP.STD ---
[facility] - General General Date of Admission: 11/07/24 Date of Service: 11/07/24 Chief Complaint: Syncope. 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 Mr. Andres was witnessed by his family to have the abrupt-onset of altered mental status with his eyes rolling backward and arching his back followed by falling to the ground and hitting his head. The family was initially concerned patient was having a seizure but they denied any tonic-clonic seizure activity and when patient regained consciousness with the 1 to 2 minutes there was no postictal confusion noted. Mr. Andres understandably has no recollection of the events that led to directly to his admission but he states that he has had some shortness of breath and cough over the past few days. He also admits to a headache that is diffuse across his entire head but he denies slurred speech or other focal neurologic deficits. He additionally denies tongue lacerations or loss of bowel or bladder continence. His family informed the ER physician they do not want results discussed with anyone else and they also expressed concerns that his alleged recently diagnosed malignancy may have spread to his brain. Patient admits to sweats, headache and mild shortness of breath with nonproductive cough but he denies fever, chills, runny nose, sore throat, chest pain, palpitations, nausea, vomiting, dysuria, hematuria, neck or back pain. He also denies a history of alcohol withdrawal or history of hyponatremia. In the ER he was noted to have laboratory evidence of severe Hyponatremia 122 mmol/L present on admission due to suspected Adverse Drug Reaction to HCTZ likely triggering Syncopal Event along with Hypokalemia of 3.4 mmol/L on admission compounded by additional laboratory evidence of recent alcohol use with FRANCISCO of 54 mg/dL present on admission in the setting of known Chronic Alcohol Abuse with head CT on admission revealing mild generalized atrophy with mild low-density bilaterally in the deep white matter that likely represents chronic mild vessel ischemic changes and CT scan of the chest this admission revealing increased size of spiculated mass measuring ~1.4 cm by ~1.0 cm apical posterior segment of Left upper lobe with increased size of spiculated mass measuring ~1.5 cm superior segment of the Left lower lobe with diffuse thickening of the interlobular septa in the lungs bilaterally increased compared with previous examination with suspected interstitial edema versus lymphangitic carcinomatosis with emphysema and CAD. He was then admitted to the ICU for ongoing treatment for stay that is expected to extend beyond 2 midnights. [facility] Medical History (Updated 11/07/24 @ 02:[address] Goldy Patino DO) Mass of left lung Vision loss of left eye Smoker Hypertension Nicotine dependence, cigarettes, uncomplicated Home Medications ?Medication ?Instructions ?Recorded ?Last Taken ?Type irbesartan 150 1 tab PO DAILY 12/29/23 01/06/24 History mg-hydrochlorothiazide 12.5 mg tablet tamsulosin 0.4 mg capsule 0.4 mg PO DAILY 12/29/23 01/06/24 History Allergy/AdvReac Type Severity Reaction Status Date / Time hydrochlorothiazide AdvReac hyponatremi Verified 11/07/24 01:44 a Family History Other Hypertension Surgical History H/O vasectomy Social History household members: family housing: house current occupational status: retired Smoking Status: Current every day smoker tobacco type: cigarettes alcohol intake: current alcohol intake frequency: 0-2 drinks per day Alcohol type: beer substance use type: does not use ROS ROS Narrative Review of Systems: Constitutional: Patient admits to sweats but he denies fever or chills. Eyes: Patient denies changes in vision or discharge from eyes. ENT: Patient denies runny nose, sore throat or ear pain. Resp: Patient admits to shortness of breath and cough after recent lung biopsy as per HPI. CV: Patient admits to syncopal event but he denies chest pain, palpitations or heart racing. GI: Patient denies abdominal pain, nausea, vomiting, diarrhea or constipation. : Patient denies dysuria or hematuria. MSK: Patient denies arthralgias or myalgias. Skin: Patient denies rash, abscess or jaundice. Psych: Patient denies symptoms of uncontrolled depression or anxiety. Neuro: Patient admits to headache that spreads across his entire forehead but he denies paresthesias or focal neurologic deficits. Allergy: Patient denies lip swelling, tongue swelling or urticaria. Hematology: Patient denies easy bleeding or easy bruisability. Endocrinology: Patient denies polyuria, polydipsia or polyphagia. 14 point review of systems otherwise negative except for positives noted above in HPI. Vital Signs Vital Signs Vital Signs: 11/06/24 21:27 11/06/24 21:27 11/06/24 22:16 Temperature 98.4 F Temperature Source Oral Pulse Rate 67 Pulse Rate [Lying] 63 Pulse Rate [Sitting (for 1 minute prior to obtaining)] 74 Pulse Rate [Standing (for 1 minute prior to obtaining)] 81 Respiratory Rate 18 Respiratory Effort Normal Non-Labored Respiratory Depth Normal Respiratory Pattern Normal Blood Pressure 116/74 Blood Pressure [Lying] 103/55 L Blood Pressure [Sitting (for 1 minute prior to obtaining)] 110/59 L Blood Pressure [Standing (for 1 minute prior to obtaining)] 92/64 Blood Pressure Mean 88 Blood Pressure Mean [Lying] 71 Blood Pressure Mean [Sitting (for 1 minute prior to obtaining)] 76 Blood Pressure Mean [Standing (for 1 minute prior to obtaining)] 73 Pulse Ox 95 Oxygen Delivery Method Room Air Room Air 11/06/24 22:26 11/06/24 23:00 Temperature Temperature Source Pulse Rate 73 79 Pulse Rate [Lying] Pulse Rate [Sitting (for 1 minute prior to obtaining)] Pulse Rate [Standing (for 1 minute prior to obtaining)] Respiratory Rate 17 17 Respiratory Effort Respiratory Depth Respiratory Pattern Blood Pressure 114/43 L 105/87 H Blood Pressure [Lying] Blood Pressure [Sitting (for 1 minute prior to obtaining)] Blood Pressure [Standing (for 1 minute prior to obtaining)] Blood Pressure Mean 66 93 Blood Pressure Mean [Lying] Blood Pressure Mean [Sitting (for 1 minute prior to obtaining)] Blood Pressure Mean [Standing (for 1 minute prior to obtaining)] Pulse Ox 98 98 Oxygen Delivery Method Room Air Room Air Weight Weight: 114 lb 6.719 oz Body Mass Index (BMI) 19.0 Physical Exam Const alert, oriented x3, no apparent distress and average body habitus General Appearance: cooperative HEENT normocephalic, head/scalp atraumatic, hearing grossly normal bilaterally and moist oral mucous membranes Eyes PERRL and EOMs intact bilaterally Neck no lymphadenopathy and supple Resp normal respiratory effort, no retractions, no use of accessory muscles and clear to auscultation bilaterally Cardio regular rate and regular rhythm GI normal to inspection, nondistended, normoactive bowel sounds, soft to palpation, non-tender and non-distended Extremity normal to inspection, full ROM and no clubbing, cyanosis or edema Skin Skin Narrative: Patient has no evidence of rash, abscess or jaundice. Neuro oriented x3, CN's II-XII intact bilaterally, moves all extremities and no focal motor deficits Sensorium / Orientation: awake, alert, oriented to person, oriented to place and oriented to time Speech: speech normal Psych affect normal Results Medical Records Data Attestation: I reviewed the patient's medical records Lab / Micro Data Attestation: I reviewed the patient's lab results. 11/07/24 02:38 11/07/24 05:05 Labs: Laboratory Results - last 24 hr 11/06/24 21:30: WBC 6.0, RBC 4.13 L, Hgb 13.0, Hct 36.0 L, MCV 87.2, MCH 31.5, MCHC 36.1 H, RDW Std Deviation 40.6, RDW Coeff of [place] 12.8, Plt Count 314, MPV 9.4, Immature Gran % (Auto) 0.500, Neut % (Auto) 46.4 L, Lymph % (Auto) 33.3, [place] % (Auto) 17.1 H, Eos % (Auto) 2.0, Baso % (Auto) 0.7, Absolute Neuts (auto) 2.8, Absolute Lymphs (auto) 1.98, Nucleated RBC % 0, PT 12.6, INR 0.9, APTT 31.0, Sodium 122 L, Potassium 3.4 L, Chloride 89 L, Carbon Dioxide 25.0, Anion Gap 7, BUN 10, Creatinine 0.66 L, Estim Creat Clear Calc 63.97, Est GFR (MDRD) Af Amer 155, Est GFR (MDRD) Non-Af 128, BUN/Creatinine Ratio 15.3, Glucose 83, Calcium 8.5, Total Bilirubin 0.70, AST 48 H, ALT 38, Alkaline Phosphatase 110, Troponin I High Sens 14, Total Protein 6.9, Albumin 3.0 L, Globulin 3.9, Albumin/Globulin Ratio 0.8 L, Lipase 35, Ethyl Alcohol 54.0 11/06/24 23:45: Urine Color Yellow, Urine Clarity Sl. Cloudy, Urine pH 6.5, Ur Specific [place] 1.015, Urine Protein Negative, Urine Glucose (UA) Normal, Urine Ketones Negative, Urine Occult Blood Negative, Urine Nitrite Negative, Urine Bilirubin Negative, Urine Urobilinogen Normal, Ur Leukocyte Esterase 25 H, Urine RBC 0 SEEN, Urine WBC 0-5 SEEN, Ur Squamous Epith Cells 0 SEEN, Urine Bacteria 0 SEEN, Urine Mucus 0 SEEN Micro: Microbiology 11/06/24 21:57 Mucosa - Nose SARS-CoV-2, Influenza & RSV (PCR) - Final Imaging Radiology Impression Brain CT 11/06/24 22:00 IMPRESSION: Mild generalized atrophy. Mild low density bilaterally in the deep white matter. This likely represents chronic small vessel ischemic changes in the deep white matter. Electronically Signed: Lenny Harrison MD at 22:17 EST , [facility] Imaging Services [address] [place] [address] [id number] Chest without Contrast MR#: [id number] Acct: [id number] Name: PATRICK ANDRES Jr. Rep #: [id number] : 1955 M 69 From: Lenny Harrison MD PCP: [facility] Status: ADM IN Study: Chest without Contrast Date of Exam: 11/07/24 Exam# [id number] Ordering Dr: Goldy Patino DO EXAM: CT CHEST WITHOUT INTRAVENOUS CONTRAST CLINICAL INDICATION: Left Lung Mass with recent biopsy and SOB/cough. TECHNIQUE: Helically acquired images were obtained of the chest without intravenous contrast. This CT exam was performed using one or more of the following dose reduction techniques: automated exposure control, adjustment of the mA and/or kV according to patient size, and/or use of iterative reconstruction technique. RADIATION DOSE: CTDIvol = 6.46 mGy, DLP = 254.89 mGy-cm COMPARISON: 12/16/2023. FINDINGS: LUNGS AND PLEURAL SPACES: Increased size of the spiculated mass measuring 1.4 x 1.0 cm apical posterior segment of the left upper lobe. Increased size of the spiculated mass measuring 1.5 cm superior segment of the left lower lobe. Diffuse thickening of the interlobular septa in the lungs bilaterally increased compared with the previous examination. Emphysema. No pleural effusion or thickening. No pneumothorax. HEART: Coronary artery calcifications. Heart size is normal. No pericardial effusion. MEDIASTINUM: Unremarkable. No mediastinal or hilar adenopathy. Esophagus is unremarkable. No hiatal hernia. THYROID: Unremarkable. No thyroid lesions. BONES/JOINTS: Unremarkable. No suspicious lytic or blastic abnormality. VASCULATURE: See above. CT/Chest without Contrast IMPRESSION: 1. Increased size of the spiculated mass measuring 1.4 x 1.0 cm apical posterior segment of the left upper lobe. 2. Increased size of the spiculated mass measuring 1.5 cm superior segment of the left lower lobe. 3. Diffuse thickening of the interlobular septa in the lungs bilaterally increased compared with the previous examination. Differential diagnosis includes interstitial edema and lymphangitic carcinomatosis. 4. Emphysema. 5. Coronary artery disease. Electronically Signed: Lenny Harrison MD at 1:34 EST , CC: Dr. Goldy Patino DO; JESUS MALAVE [place] ~ [place]: Signed Assessment & Plan Assessment/Plan (1) Hyponatremia: (2) Adverse drug reaction: QUALIFIERS: Encounter type: initial encounter Qualified Code(s): T50.905A - Adverse effect of unspecified drugs, medicaments and biological substances, initial encounter (3) Chronic alcohol abuse: (4) Syncope and collapse: (5) Orthostatic hypotension: (6) Hypokalemia: (7) Pulmonary nodules: (8) Mass of left lung: (9) Tobacco use disorder: PLAN: Plan 1. Severe Hyponatremia 122 mmol/L present on admission - Admit to ICU. Continue normal saline IV fluid and check BMP every 4 hours and aim for slow correction of no more than ~8-10 mmol/L per 24 hours. Check urine and serum osmolality. Give Tylenol as needed pain or fever. 2. Adverse Drug Reaction to HCTZ likely primarily causing #1 - Hydrochlorothiazide has been added to patient's list of allergies as a likely culprit agent causing his hyponatremia. 3. 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 4. Syncope with Orthostatic Hypotension noted in ER shorty after arrival likely due to #1 - #3 - Volume resuscitate and recheck orthostatics in a.m. For possible improvement. Check echocardiogram to evaluate LVEF. Check carotid Doppler to evaluate for stenosis. 4. Hypokalemia of 3.4 mmol/L on admission compounding #1 - #4 - Give supplemental KCl and then recheck level in AM to confirm repletion. 5. History of tobacco abuse; with history of mass in Left lung and pulmonary nodules; s/p recent lung biopsy which patient reports were negative but with his recent CT results noted above arguing to the contrary, adding to the burden of disease outlined from #1 - #5 and raising specter of possible SIADH with the patient had relatively poor insight into his complex medical disease - We will consult air brake adjuster on-call to see this patient on rounds in the a.m. for further recommendations without appreciated in advance. Tobacco cessation strongly encouraged with nicotine patch offered to control cravings. Prognosis will likely be poor given this patient's advanced disease and relatively poor insight compounded by suboptimal family dynamic. 6. Essential hypertension; irbesartan-HCTZ - Stop this agent and give prn Hydralazine IV for systolic blood pressure > 160 mmHg and consider starting alterative regimen once hyponatremia has been corrected. 7. BPH; on tamsulosin - Hold this agent with known side effects to include syncope. 8. History of vision loss in the Left eye - Noted. 9. History of vasectomy - Noted for the sake of completeness. 10. OA - Give Tylenol prn. 11. DVT prophylaxis - Lovenox 40 mg sq daily plus SCD's. Total time: Approximately (but not less than) 75 minutes. Charges/Coding Visit Charges Inpatient E&M: 04837 Init Hosp L3
[2024-11-07 00:24] LABS: Troponin-I HS 16 pg/mL (3.0-78.0)
--- NOTE | 2024-11-07 00:50 | CT_ITS ---
EXAM: CT CHEST WITHOUT INTRAVENOUS CONTRAST CLINICAL INDICATION: Left Lung Mass with recent biopsy and SOB/cough. TECHNIQUE: Helically acquired images were obtained of the chest without intravenous contrast. This CT exam was performed using one or more of the following dose reduction techniques: automated exposure control, adjustment of the mA and/or kV according to patient size, and/or use of iterative reconstruction technique. RADIATION DOSE: CTDIvol = 6.46 mGy, DLP = 254.89 mGy-cm COMPARISON: 12/16/2023. FINDINGS: LUNGS AND PLEURAL SPACES: Increased size of the spiculated mass measuring 1.4 x 1.0 cm apical posterior segment of the left upper lobe. Increased size of the spiculated mass measuring 1.5 cm superior segment of the left lower lobe. Diffuse thickening of the interlobular septa in the lungs bilaterally increased compared with the previous examination. Emphysema. No pleural effusion or thickening. No pneumothorax. HEART: Coronary artery calcifications. Heart size is normal. No pericardial effusion. MEDIASTINUM: Unremarkable. No mediastinal or hilar adenopathy. Esophagus is unremarkable. No hiatal hernia. THYROID: Unremarkable. No thyroid lesions. BONES/JOINTS: Unremarkable. No suspicious lytic or blastic abnormality. VASCULATURE: See above. CT/Chest without Contrast IMPRESSION: 1. Increased size of the spiculated mass measuring 1.4 x 1.0 cm apical posterior segment of the left upper lobe. 2. Increased size of the spiculated mass measuring 1.5 cm superior segment of the left lower lobe. 3. Diffuse thickening of the interlobular septa in the lungs bilaterally increased compared with the previous examination. Differential diagnosis includes interstitial edema and lymphangitic carcinomatosis. 4. Emphysema. 5. Coronary artery disease. Electronically Signed: Lenny Harrison MD at 1:34 EST ,
--- NOTE | 2024-11-07 01:37 | ECHOD_ITS ---
Reason For Study: Syncope Procedure This was a 2D Doppler, Color Flow transthoracic echocardiogram. Exam performed portable in ICU/CCU. Left Ventricle Normal LV size. Apical false tendon noted. The left ventricular ejection fraction is 40 %. Moderate segmental systolic dysfunction (see wall motion). There are regional wall motion abnormalities as specified. [place] : Akinetic. Septal [place] : Akinetic. Mid-anteroseptal : Akinetic. Mid-Anterior : Severely Hypokinetic. Basal anteroseptal: Hypokinetic. The rest of the wall segments are normal. Right Ventricle Normal RV size. Normal systolic function. Atria Normal left atrium. Normal right atrium. Mitral Valve Normal mitral valve. Tricuspid Valve Normal tricuspid valve. Aortic Valve Trisinus/trileaflet aortic valve. Pulmonic Valve Normal pulmonic valve. Great Vessels Normal aortic root. The pulmonary artery is normal size. Inferior vena cava collapse with respiration. Pericardium/Pleural No pericardial effusion. MMode/2D Measurements & Calculations LVIDd: 4.0 cm IVSd: 1.0 cm Ao root diam: 3.0 cm LVIDs: 2.9 cm LVPWd: 1.1 cm RVDd: 2.6 cm FS: 28.5 % LAV(MOD-bp): 38.8 ml LVAd ap4: 30.1 cm2 LVAd ap2: 35.1 cm2 LAV(MOD-bp) Indexed: 24.9 ml/m2 LVLd ap4: 8.2 cm LVLd ap2: 8.7 cm LAV(MOD-sp2): 38.6 ml EDV(MOD-sp4): 91.1 ml EDV(MOD-sp2): 116.0 ml LAV(MOD-sp4): 30.7 ml EDV(sp4-el): 94.1 ml EDV(sp2-el): 120.5 ml LVAs ap4: 22.4 cm2 LVAs ap2: 27.4 cm2 LVLs ap4: 7.9 cm LVLs ap2: 8.4 cm ESV(MOD-sp4): 52.3 ml ESV(MOD-sp2): 72.1 ml ESV(sp4-el): 53.8 ml ESV(sp2-el): 76.2 ml EF(MOD-sp4): 42.6 % EF(MOD-sp2): 37.9 % EF(sp4-el): 42.8 % SV(MOD-sp4): 38.8 ml SV(MOD-sp2): 43.9 ml SV(sp4-el): 40.3 ml SI(MOD-sp4): 24.9 ml/m2 SI(MOD-sp2): 28.2 ml/m2 LA A4 area: 12.0 cm2 LA dimension(2D): 4.2 cm RA A4 area: 9.6 cm2 TAPSE: 1.2 cm Time Measurements MV dec time: 0.27 sec Doppler Measurements & Calculations MV E max severiano: 45.1 cm/sec Lat Peak E' Severiano: 7.2 cm/sec Med Peak E' Severiano: 8.5 cm/sec MV A max severiano: 64.2 cm/sec E/E' lat: 6.2 E/E' med: 5.3 MV E/A: 0.70 Ao V2 max: 135.7 cm/sec LV V1 max: 93.2 cm/sec MV dec slope: 167.1 cm/sec2 Ao max P.4 mmHg LV V1 max P.5 mmHg PA V2 max: 84.8 cm/sec ECHO/Echo Complete Interpretation Summary Normal LV size. The left ventricular ejection fraction is 40 %. Moderate segmental systolic dysfunction (see wall motion). Ordering Physician: Goldy Patino Referring Physician: Goldy Patino Performed By: Siria Siu RDCS
--- NOTE | 2024-11-07 01:37 | CDU_ITS ---
Reason For Study: Stenosis Rt. Velocities/BP Lt. Velocities/BP Prox CCA 54/0 cm/sec. Prox CCA 118/27 cm/sec. Mid CCA 54/0 cm/sec. Mid CCA 93/16 cm/sec. Dist CCA 35/0 cm/sec. Dist CCA 74/17 cm/sec. Prox ICA 417/68 cm/sec. Prox ICA 112/37 cm/sec. Mid ICA 17/4 cm/sec. Mid ICA 132/48 cm/sec. Dist ICA 23/6 cm/sec. Dist ICA 147/44 cm/sec. Rt. ICA/CCA = 7.8. Lt. ICA/CCA = 1.6. Prox ECA 175/0 cm/sec. Prox ECA 193/9 cm/sec. Rt. Vert. 74/24 cm/sec. Lt. Vert. 51/13 cm/sec. Right Extracranial There is heterogeneous, irregular atherosclerotic plaque noted in the right common carotid artery. There is heterogeneous, irregular atherosclerotic plaque noted in the right internal carotid artery. There is heterogeneous, irregular atherosclerotic plaque noted in the right external carotid artery. Antegrade flow is noted in the right vertebral artery. Left Extracranial There is heterogeneous, irregular atherosclerotic plaque noted in the left common carotid artery. There is heterogeneous, irregular atherosclerotic plaque noted in the left internal carotid artery. There is heterogeneous, irregular atherosclerotic plaque noted in the left external carotid artery. Antegrade flow is noted in the left vertebral artery. Procedure Carotid Duplex [id number]. This is a Carotid Duplex examination using B-mode, color flow and specral Doppler. Prelim given to Catia JOLLY. Exam performed portable in ICU/CCU. VL/Carotid Duplex Ultrasound Interpretation Summary Severe (>70%) stenosis right extracranial internal carotid. Moderate (50-69%) stenosis left extracranial internal carotid. Patent and antegrade vertebrals bilaterally. Ordering Physician: Goldy Patino Referring Physician: Trip Celis Performed By: Rosalva Ochoa, ANITACS, RVT
[2024-11-07 02:17] LABS: Anion Gap 8 (5-15); BUN 9 mg/dL (7-18); BUN/Creat Ratio 17.9 RATIO (10-20); Calcium,Total 7.5 mg/dL (8.5-10.1); Chloride 96 mmol/L (98-107); EST Glomerular Filtration Rate 174 mL/min (>60); Est Glom Filt Rate - Afr Amer 211 mL/min (>60); Estimated Creatinine Clearance 63.97 ml/min; Glucose 98 mg/dL (74-106); Sodium Level 126 mmol/L (136-145)
[2024-11-07 02:48] LABS: Absolute Neutrophil Count 5.8 X10^3/uL (2.0-7.7); Basophil# 0.03 X10^3/uL; Basophil% 0.4 % (0-1); Eosinophil# 0.02 X10^3/uL; Eosinophils% 0.3 % (0-5); Hematocrit 33.4 % (40-54); Hemoglobin 12.1 g/dL (13.0-16.5); Lymphocyte % 11.7 % (19-41); Mean Corp Hgb Conc 36.2 g/dL (32-36); Mean Corpuscular Hgb 31.5 pg (27.0-32.0); Mean Platelet Vol. 9.4 fl (6.2-12.0); Monocyte% 11.7 % (0-10); NRBC Flagged by Analyzer 0 % (0-5); Neutrophil # 5.82 X10^3/uL (2.7-7.7); Neutrophil % 75.5 % (47-70); Platelet Count 296 K/mm3 (150-450); RBC Distribution Width CV 12.7 % (11.6-14.6); RBC Distribution Width SD 40.1 fl (35.1-43.9); Red Blood Count 3.84 M/mm3 (4.6-6.2); White Blood Count 7.7 K/mm3 (4.4-11.0)
[2024-11-07] MEDS: 0.9% Normal Saline (1000mL) 1,000 ML 60 ML IV (02:55)
[2024-11-07] MEDS: Potassium Chloride Oral Tablet 20 MEQ 60 MEQ PO (02:55)
[2024-11-07] MEDS: Phenobarbital 32.4 MG Tablet 64.8 MG PO ×6 (02:56→23:08)
[2024-11-07] MEDS: 0.9% Saline Lock 10 ML Syringe IV (03:02)
[2024-11-07 03:08] LABS: ALB/GLOB Ratio 0.9 RATIO (0.9-2.4); AST(SGOT) 48 U/L (15-37); Alanine Aminotransfer ALT/SGPT 38 U/L (16-61); Albumin, Serum 2.9 g/dL (3.2-5.0); Alkaline Phosphatase 94 U/L (45-117); Anion Gap 4 (5-15); BUN 10 mg/dL (7-18); BUN/Creat Ratio 19.4 RATIO (10-20); Calcium,Total 7.9 mg/dL (8.5-10.1); Chloride 97 mmol/L (98-107); Creatinine, Serum 0.52 mg/dL (0.70-1.30); EST Glomerular Filtration Rate 169 mL/min (>60); Est Glom Filt Rate - Afr Amer 204 mL/min (>60); Estimated Creatinine Clearance 63.46 ml/min; Globulin 3.4 g/dL (2.2-4.2); Glucose 98 mg/dL (74-106); Magnesium 1.7 mg/dL (1.6-2.6); Phosphorus 2.6 mg/dL (2.5-4.9); Potassium 4.1 mmol/L (3.5-5.1); Protein, Total 6.3 g/dL (6.4-8.2); Sodium Level 125 mmol/L (136-145)
[2024-11-07 03:13] LABS: Osmolality, Serum 258 mOsm/KG (280-301)
[2024-11-07 03:29] LABS: Osmolality, Urine 172 mOsm/KG
[2024-11-07 03:33] LABS: Amphetamine Urine VISTA NEGATIVE (<1000 ng/mL); Barbiturate Urine VISTA NEGATIVE (< 200 ng/mL); Benzodiazepine Urine VISTA NEGATIVE (< 200 ng/mL); Cocaine Urine VISTA NEGATIVE (< 300 ng/mL); Ecstacy Urine VISTA NEGATIVE (< 500 ng/mL); Methadone Urine VISTA NEGATIVE (< 300 ng/mL); PCP Urine VISTA NEGATIVE (< 25 ng/mL); THC Urine VISTA NEGATIVE (< 50 ng/mL); Vista UDS pH Range 6
[2024-11-07 05:35] LABS: Anion Gap 3 (5-15); BUN 8 mg/dL (7-18); BUN/Creat Ratio 17.2 RATIO (10-20); Calcium,Total 8.2 mg/dL (8.5-10.1); Chloride 100 mmol/L (98-107); Creatinine, Serum 0.46 mg/dL (0.70-1.30); EST Glomerular Filtration Rate 190 mL/min (>60); Est Glom Filt Rate - Afr Amer 230 mL/min (>60); Estimated Creatinine Clearance 63.48 ml/min; Glucose 92 mg/dL (74-106); Potassium 4.6 mmol/L (3.5-5.1); Sodium Level 128 mmol/L (136-145)
--- NOTE | 2024-11-07 07:45 | EX.PCM.CONCC ---
Assessment & Plan Assessment/Plan (1) Syncope and collapse: (2) Orthostatic hypotension: PLAN: Plan RECOMMENDATIONS: 1. Gentle IV fluid hydration as tolerated. 2. Medical management of alcohol withdrawal per hospitalist. 3. Electrolyte repletion as needed. 4. Recommend close outpatient pulmonary follow-up within 2 weeks of discharge from the hospital. 5. The patient is medically stable for transfer out of the intensive care unit. Will sign off from a critical care perspective. IMPRESSIONS: 1. Hyponatremia/syncope Likely secondary to hypovolemia in the setting of poor p.o. intake coupled with concurrent use of diuretic. The patient was noted to be orthostatic at presentation. His sodium has improved with gentle IV fluid resuscitation. The patient has no focal neurological deficits. Continue current supportive care with serial monitoring of sodium. 2. History of tobacco dependency with enlarging pulmonary nodules on CT imaging/COPD These findings are concerning for an underlying malignant process. The patient was seen in our pulmonary office back in December [address]-guided lung biopsy, which was complicated by pneumothorax. Pathology was negative for malignancy. However, given that these lesions are increasing in size and the patient is continuing to smoke, I would recommend that the patient be referred to thoracic surgery on an outpatient basis for further evaluation. Unfortunately, the patient has been lost to follow-up in the pulmonary medicine clinic since his initial visit. 3. History of alcohol dependency/BPH/hypertension Complicates care, management, recovery and prognosis. Consider alternative antihypertensive regimen at discharge. This note was generated with [employer] dictation software. It may contain incorrect words, spelling, and punctuation that were not noted in checking the note before signing. HPI Consult Data Date of Consult: 11/07/24 HPI Narrative Reason for Consultation: Syncope HPI Narrative: The patient is a 69-year-old male, with a history as outlined below, who presented to the emergency department on November 07 with reported syncope. The patient was reportedly eating dinner with his family when he experienced an acute episode of unresponsiveness. The patient was evaluated in the pulmonary medicine clinic in December 2023 due to the presence of pulmonary nodules. He has an extensive tobacco abuse history of approximately 75 pack years and continues to smoke 2 packs of cigarettes per day. He did report the presence of unintentional weight loss. An outside hospital CT scan demonstrated a left lower lobe pulmonary nodule greater than 1 cm in size. Therefore, the patient was referred to undergo a CT-guided lung biopsy, which was ultimately completed on January 07. The procedure itself was complicated by the development of a pneumothorax, which did require chest tube placement. The pathology report from his CT-guided lung biopsy demonstrated focal fibrosis without evidence of malignancy. In addition to the aforementioned, the patient readily admitted that he drinks 4-5 beers per day on a regular basis. On presentation to the emergency department, the patient was documented to be afebrile and hemodynamically stable. He was maintaining appropriate oxygen saturations on room air. Laboratory evaluation revealed a normal white blood cell count. Coagulation profile was within normal limits. Chemistry profile was notable for a sodium of 122 with a potassium of 3.4. Urine analysis was unremarkable. Toxicology screen was negative. Alcohol level was noted to be 54. 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 Subsequent CT chest demonstrated increasing size of the previously noted lung nodules, now measuring 1.4 cm in the left upper lobe and 1.5 cm in the left lower lobe. The patient was placed on supplemental IV fluids, thiamine, folic acid and a phenobarbital taper. He was subsequently admitted to the medical intensive care unit for further management. This morning, the patient's sodium level has improved to 131. The patient is alert and appropriately interactive. He did admit that he does not typically eat or drink much at his baseline. [facility] Medical History (Updated 11/07/24 @ 02:[address] Goldy Patino DO) Mass of left lung Vision loss of left eye Smoker Hypertension Nicotine dependence, cigarettes, uncomplicated Home Medications ?Medication ?Instructions ?Recorded ?Last Taken ?Type irbesartan 150 1 tab PO DAILY 12/29/23 01/06/24 History mg-hydrochlorothiazide 12.5 mg tablet tamsulosin 0.4 mg capsule 0.4 mg PO DAILY 12/29/23 01/06/24 History Allergy/AdvReac Type Severity Reaction Status Date / Time hydrochlorothiazide AdvReac hyponatremi Verified 11/07/24 01:44 a Family History Other Hypertension Surgical History H/O vasectomy Social History household members: family housing: house current occupational status: retired Smoking Status: Current every day smoker tobacco type: cigarettes alcohol intake: current alcohol intake frequency: 0-2 drinks per day Alcohol type: beer substance use type: does not use ROS ROS Narrative 10 systems were reviewed with pertinent positives as noted in the HPI above. Physical Exam Const alert and no apparent distress General Appearance: cooperative HEENT normocephalic and head/scalp atraumatic Eyes EOMs intact bilaterally and conjunctivae normal Neck supple General: trachea midline Chest inspection of chest normal Resp normal respiratory effort Auscultation: diminished lung sounds; Negative for rales, rhonchi or wheezes Cardio regular rate and regular rhythm GI normal to inspection, nondistended, normoactive bowel sounds Extremity no clubbing, cyanosis or edema Skin no rashes or lesions noted Neuro CN's II-XII intact bilaterally and no focal motor deficits Psych Mood & Affect: flat affect Lab / Micro Data 11/07/24 02:38 11/07/24 08:26 Labs: Laboratory Results - last 24 hr 11/06/24 21:30: WBC 6.0, RBC 4.13 L, Hgb 13.0, Hct 36.0 L, MCV 87.2, MCH 31.5, MCHC 36.1 H, RDW Std Deviation 40.6, RDW Coeff of [place] 12.8, Plt Count 314, MPV 9.4, Immature Gran % (Auto) 0.500, Neut % (Auto) 46.4 L, Lymph % (Auto) 33.3, [place] % (Auto) 17.1 H, Eos % (Auto) 2.0, Baso % (Auto) 0.7, Absolute Neuts (auto) 2.8, Absolute Lymphs (auto) 1.98, Nucleated RBC % 0, PT 12.6, INR 0.9, APTT 31.0, Sodium 122 L, Potassium 3.4 L, Chloride 89 L, Carbon Dioxide 25.0, Anion Gap 7, BUN 10, Creatinine 0.66 L, Estim Creat Clear Calc 63.97, Est GFR (MDRD) Af Amer 155, Est GFR (MDRD) Non-Af 128, BUN/Creatinine Ratio 15.3, Glucose 83, Calcium 8.5, Total Bilirubin 0.70, AST 48 H, ALT 38, Alkaline Phosphatase 110, Troponin I High Sens 14, Total Protein 6.9, Albumin 3.0 L, Globulin 3.9, Albumin/Globulin Ratio 0.8 L, Lipase 35, Ethyl Alcohol 54.0 11/06/24 23:45: Urine Color Yellow, Urine Clarity Sl. Cloudy, Urine pH 6.5, Ur Specific Hom[place] 1.015, Urine Protein Negative, Urine Glucose (UA) Normal, Urine Ketones Negative, Urine Occult Blood Negative, Urine Nitrite Negative, Urine Bilirubin Negative, Urine Urobilinogen Normal, Ur Leukocyte Esterase 25 H, Urine RBC 0 SEEN, Urine WBC 0-5 SEEN, Ur Squamous Epith Cells 0 SEEN, Urine Bacteria 0 SEEN, Urine Mucus 0 SEEN 11/07/24 00:04: Troponin I High Sens 16 11/07/24 01:49: Sodium 126 L, Potassium 4.0, Chloride 96 L, Carbon Dioxide 23.0, Anion Gap 8, BUN 9, Creatinine 0.50 L, Estim Creat Clear Calc 63.97, Est GFR (MDRD) Af Amer 211, Est GFR (MDRD) Non-Af 174, BUN/Creatinine Ratio 17.9, Glucose 98, Calcium 7.5 L 11/07/24 02:38: WBC 7.7, RBC 3.84 L, Hgb 12.1 L, Hct 33.4 L, MCV 87.0, MCH 31.5, MCHC 36.2 H, RDW Std Deviation 40.1, RDW Coeff of [place] 12.7, Plt Count 296, MPV 9.4, Immature Gran % (Auto) 0.400, Neut % (Auto) 75.5 H, Lymph % (Auto) 11.7 L, [place] % (Auto) 11.7 H, Eos % (Auto) 0.3, Baso % (Auto) 0.4, Absolute Neuts (auto) 5.8, Absolute Lymphs (auto) 0.90, Nucleated RBC % 0, Sodium 125 L, Potassium 4.1, Chloride 97 L, Carbon Dioxide 24.0, Anion Gap 4 L, BUN 10, Creatinine 0.52 L, Estim Creat Clear Calc 63.46, Est GFR (MDRD) Af Amer 204, Est GFR (MDRD) Non-Af 169, BUN/Creatinine Ratio 19.4, Glucose 98, Serum Osmolality 258 L, Calcium 7.9 L, Phosphorus 2.6, Magnesium 1.7, Total Bilirubin 0.90, AST 48 H, ALT 38, Alkaline Phosphatase 94, Total Protein 6.3 L, Albumin 2.9 L, Globulin 3.4, Albumin/Globulin Ratio 0.9, TSH 1.490 11/07/24 02:50: Urine Osmolality 172, Urine Opiates Screen NEGATIVE, Urine Methadone Screen NEGATIVE, Ur Barbiturates Screen NEGATIVE, Ur Phencyclidine Scrn NEGATIVE, Ur Amphetamines Screen NEGATIVE, MDMA (Ecstasy) Screen NEGATIVE, U Benzodiazepines Scrn NEGATIVE, Urine Cocaine Screen NEGATIVE, U Cannabinoids Screen NEGATIVE, Ur Drug Screen Comment 11/07/24 05:05: Sodium 128 L, Potassium 4.6, Chloride 100, Carbon Dioxide 25.0, Anion Gap 3 L, BUN 8, Creatinine 0.46 L, Estim Creat Clear Calc 63.48, Est GFR (MDRD) Af Amer 230, Est GFR (MDRD) Non-Af 190, BUN/Creatinine Ratio 17.2, Glucose 92, Calcium 8.2 L Micro: Microbiology 11/06/24 21:57 Mucosa - Nose SARS-CoV-2, Influenza & RSV (PCR) - Final Imaging Radiology Impression Brain CT 11/06/24 22:00 IMPRESSION: Mild generalized atrophy. Mild low density bilaterally in the deep white matter. This likely represents chronic small vessel ischemic changes in the deep white matter. Electronically Signed: Lenny Harrison MD at 22:17 EST , Chest CT 11/07/24 00:50 IMPRESSION: 1. Increased size of the spiculated mass measuring 1.4 x 1.0 cm apical posterior segment of the left upper lobe. 2. Increased size of the spiculated mass measuring 1.5 cm superior segment of the left lower lobe. 3. Diffuse thickening of the interlobular septa in the lungs bilaterally increased compared with the previous examination. Differential diagnosis includes interstitial edema and lymphangitic carcinomatosis. 4. Emphysema. 5. Coronary artery disease. Electronically Signed: Lenny Harrison MD at 1:34 EST , Charges/Coding Visit Charges Inpatient E&M: 42908 Init Hosp L3
[2024-11-07] MEDS: Enoxaparin 40 MG/0.4 ML Syringe SC (07:46)
[2024-11-07] MEDS: Thiamine Hydrochloride 100 MG Tablet PO (07:46)
[2024-11-07] MEDS: Folic Acid 1 MG Tablet PO (07:46)
[2024-11-07 09:01] LABS: Anion Gap 5 (5-15); BUN 8 mg/dL (7-18); BUN/Creat Ratio 16.7 RATIO (10-20); Calcium,Total 8.3 mg/dL (8.5-10.1); Chloride 104 mmol/L (98-107); Creatinine, Serum 0.48 mg/dL (0.70-1.30); EST Glomerular Filtration Rate 183 mL/min (>60); Est Glom Filt Rate - Afr Amer 222 mL/min (>60); Estimated Creatinine Clearance 63.48 ml/min; Glucose 125 mg/dL (74-106); Potassium 4.4 mmol/L (3.5-5.1); Sodium Level 131 mmol/L (136-145)
--- NOTE | 2024-11-07 10:09 | CASEMGMT ---
RIK REICH Assessment: Face to Face with pt for initial transition planning/care coordination assessment. RIK REICH introduced self and role at [facility], pt voices understanding and consents to assessment. Pt is A&O x4 and answers all questions appropriately at this time. Pt was sitting up in bed in no distress. Care providers, pharmacy, and demographics verified/updated. Strata: 1 Admitting Dx: Severe acute hyponatremia PCP: Vimal Specialists: Denies Preferred Pharmacy: [facility] Insurance: [facility] A & B Prescription Benefit: yes LNOK: Honey Pedroza Living Arrangements: Pt lives with sister in a one story with a basement that Pt goes down to at times. There are 6 + 2 steps to enter. ADLs: Pt states I at baseline. Transportation: Pt drives self and denies concerns with transportation. DME: Pt denies HHC/SNF: Pt denies Hx of. Pt states no concerns with going home at time of dc. Pt states drinks 4-12 beers a day and smoke 1.5 - 2 packs a day. Denies wanting cessation information. Discussed speaking with his PCP in the future if he changes his mind. Pt states no further concerns/needs. CM to follow. Advised pt to ask CM if any further question/concerns/needs arise, voices understanding. Pt Goal: Home Plan: Home, follow therapy for recommendations. Annamarie JOLLY CM
[2024-11-07] MEDS: Ensure Plus High Protein 120 ML LIQUID PO ×2 (11:23→18:54)
[2024-11-07] MEDS: Acetaminophen 325 MG Tablet 650 MG PO (14:09)
[2024-11-07] MEDS: traZODone 100 MG Tablet PO (23:08)
[2024-11-08 03:24] VITALS: BP 104/64; PULSE 68; RESP 21; TEMP 36.6; O2SAT 96
[2024-11-08] MEDS: Phenobarbital 32.4 MG Tablet 64.8 MG PO ×3 (03:27→11:07)
[2024-11-08 05:29] VITALS: BMI 19.0
[2024-11-08 06:22] VITALS: BP 120/72; PULSE 68; RESP 20; TEMP 36.7; O2SAT 96
[2024-11-08 07:53] LABS: Absolute Lymphocyte Count 1.38 X10^3/uL (0.83-4.51); Basophil# 0.04 X10^3/uL; Basophil% 0.7 % (0-1); Eosinophil# 0.11 X10^3/uL; Hematocrit 34.6 % (40-54); Hemoglobin 12.3 g/dL (13.0-16.5); Lymphocyte # 1.38 X10^3/ul (0.83-4.51); Lymphocyte % 24.7 % (19-41); Mean Corp Hgb Conc 35.5 g/dL (32-36); Mean Corpuscular Hgb 31.4 pg (27.0-32.0); Mean Corpuscular Volume 88.3 fL (80-94); Mean Platelet Vol. 9.8 fl (6.2-12.0); Monocyte# 1.01 X10^3/uL; Monocyte% 18.1 % (0-10); NRBC Flagged by Analyzer 0 % (0-5); Neutrophil # 3.02 X10^3/uL (2.7-7.7); Platelet Count 294 K/mm3 (150-450); RBC Distribution Width CV 13.2 % (11.6-14.6); RBC Distribution Width SD 42.9 fl (35.1-43.9); Red Blood Count 3.92 M/mm3 (4.6-6.2); White Blood Count 5.6 K/mm3 (4.4-11.0)
[2024-11-08 08:08] LABS: PROLACTIN 6.2 ng/mL (3.6-25.2)
[2024-11-08 08:17] VITALS: BP 109/70; PULSE 74; RESP 18; TEMP 36.4; O2SAT 97
[2024-11-08 08:21] VITALS: O2SAT 96
[2024-11-08 08:29] LABS: Anion Gap 5 (5-15); BUN 8 mg/dL (7-18); BUN/Creat Ratio 14.2 RATIO (10-20); Calcium,Total 8.8 mg/dL (8.5-10.1); Chloride 102 mmol/L (98-107); Creatinine, Serum 0.56 mg/dL (0.70-1.30); EST Glomerular Filtration Rate 153 mL/min (>60); Est Glom Filt Rate - Afr Amer 185 mL/min (>60); Glucose 86 mg/dL (74-106); Potassium 4.3 mmol/L (3.5-5.1); Sodium Level 131 mmol/L (136-145)
[2024-11-08] MEDS: Ensure Plus High Protein 120 ML LIQUID PO (09:46)
[2024-11-08] MEDS: Enoxaparin 40 MG/0.4 ML Syringe SC (09:46)
[2024-11-08] MEDS: Folic Acid 1 MG Tablet PO (09:47)
[2024-11-08] MEDS: Thiamine Hydrochloride 100 MG Tablet PO (09:47)
[2024-11-08 09:48] VITALS: BP 104/52; BP 105/70; BP 91/64; PULSE 70; PULSE 73; PULSE 80
--- NOTE | 2024-11-08 11:12 | DCINST_ITS ---
Discharge Instructions Diet Discharge Diet: Low fat / Low cholesterol DC O2, CPAP, BIPAP needs Home O2 Discharge instructions: No Dressing / Incision Discharge Activity: Return to Normal Activity Dressing / Incision Call your doctor if you observe: Fever of 101 or Higher, Shortness of breath, Dizziness, Fainting spells, Swelling in the ankles, Chest pain and Increased palpitations (irregular heartbeat) Follow Up Care Test Results: Test results from this visit will be discussed in further detail at your follow-up appointment, if applicable. Discharge Plan Admission Admit Date/Time: 11/07/24 00:43 Attending Provider: Janak Ulloa Primary Care Provider: JESUS CALLAHAN Consulting Providers: Goldy Patino Instructions Additional Instructions / Restrictions: Given that your blood pressures been on the lower end while here and the hydrochlorothiazide and your medication can cause a low sodium level which is part of why you came in, I recommend holding your blood pressure medications and following up with your primary care doctor in 3 to 5 days for evaluation and readjustment of blood pressure medications at that time. Will start you on Lipitor for your carotid artery stenosis and I recommend she follow-up with vascular surgery for possible surgical intervention. Discharge Orders/Prescriptions Prescriptions: New atorvastatin [Lipitor] 40 mg tablet 40 mg PO DAILY Qty: 30 0RF Continued tamsulosin 0.4 mg capsule 0.4 mg PO DAILY Patient Comments: TAKE 1 CAPSULE BY MOUTH EVERY DAY Discontinued irbesartan-hydrochlorothiazide 150-12.5 mg tablet 1 tab PO DAILY Patient Comments: TAKE 1 TABLET BY MOUTH EVERY DAY Referrals / Follow Up: Malcolm Torres MD [Med Staff - Active Staff] - Within 1 Month [facility] [Primary Care Provider] - Within 1 Week Disposition Disposition (needs filled in before D/C Order can be placed): Home, Self Care
--- NOTE | 2024-11-08 11:56 | CASEMGMT ---
RIK REICH noted DC order in. Into pt room, discussed DME with patient, offered to get him a walker. Pt states he might have one at home and if not he thinks he can get a hold of one. Denies wanting RIK REICH to get him set up with one. Denies questions or concerns at this time.
--- NOTE | 2024-11-08 12:23 | PCM.DC.SUM ---
Providers Date of Admission: 11/07/24 Primary Care Physician: FRIEDA KEARNEY Consultations 11/07/24 06:08 Consult: Track Rider / Pulmonary Medicine Routine Consulting Provider: Intensivists/Pulmonary Med Reason for Consult: Lung Cancer with Hyponatremia of 122 present on adm. concerning for SIADH. EMERGENT Consult: No MD Notified: Yes Date Notified: 11/07/24 Time Notified: 06:20 Method of Notification: Text Reason For Visit: SEVERE ACUTE HYPONATREMIA AT 122 PRESENT ON Diagnosis Discharge Diagnosis (1) Syncope and collapse: Status: Acute Code(s): R55 - Syncope and collapse (2) Orthostatic hypotension: Status: Acute Code(s): I95.1 - Orthostatic hypotension Medications at Discharge Home Medications tamsulosin 0.4 mg capsule 0.4 mg PO DAILY 12/29/23 atorvastatin 40 mg tablet (Lipitor) 40 mg PO DAILY #30 tabs 11/08/24 Hospital Course Operations None Procedures 2-D Echocardiogram Summary of Care Provided Minutes Spent on Discharge: 36 Hospital Course: Per HPI: PATRICK ANDRES, is a 69 M with a past medical history of essential hypertension; irbesartan-HCTZ, history of chronic alcohol abuse; with patient routinely drinking 2-6 beers per day, BPH; on tamsulosin, 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 Mr. Andres was witnessed by his family to have the abrupt-onset of altered mental status with his eyes rolling backward and arching his back followed by falling to the ground and hitting his head. The family was initially concerned patient was having a seizure but they denied any tonic-clonic seizure activity and when patient regained consciousness with the 1 to 2 minutes there was no postictal confusion noted. Mr. Andres understandably has no recollection of the events that led to directly to his admission but he states that he has had some shortness of breath and cough over the past few days. He also admits to a headache that is diffuse across his entire head but he denies slurred speech or other focal neurologic deficits. He additionally denies tongue lacerations or loss of bowel or bladder continence. His family informed the ER physician they do not want results discussed with anyone else and they also expressed concerns that his alleged recently diagnosed malignancy may have spread to his brain. Patient admits to sweats, headache and mild shortness of breath with nonproductive cough but he denies fever, chills, runny nose, sore throat, chest pain, palpitations, nausea, vomiting, dysuria, hematuria, neck or back pain. He also denies a history of alcohol withdrawal or history of hyponatremia. In the ER he was noted to have laboratory evidence of severe Hyponatremia 122 mmol/L present on admission due to suspected Adverse Drug Reaction to HCTZ likely triggering Syncopal Event along with Hypokalemia of 3.4 mmol/L on admission compounded by additional laboratory evidence of recent alcohol use with FRANCISCO of 54 mg/dL present on admission in the setting of known Chronic Alcohol Abuse with head CT on admission revealing mild generalized atrophy with mild low-density bilaterally in the deep white matter that likely represents chronic mild vessel ischemic changes and CT scan of the chest this admission revealing increased size of spiculated mass measuring ~1.4 cm by ~1.0 cm apical posterior segment of Left upper lobe with increased size of spiculated mass measuring ~1.5 cm superior segment of the Left lower lobe with diffuse thickening of the interlobular septa in the lungs bilaterally increased compared with previous examination with suspected interstitial edema versus lymphangitic carcinomatosis with emphysema and CAD. He was then admitted to the ICU for ongoing treatment for stay that is expected to extend beyond 2 midnights. Hospital Course: 1. Syncope in the setting of hyponatremia due to hydrochlorothiazide as well as alcohol abuse?69-year-old male presented to the hospital with a syncopal episode. He was found to be hyponatremic down to 122, this resolved 131. His hydrochlorothiazide was discontinued on discharge as was his irbesartan as his blood pressures were borderline low. On the day of discharge he had an orthostatic vital signs done that were negative renal function was stable and sodium had corrected. He did have an echocardiogram during this admission which showed an EF of 40% and we have no baseline to compare to him however troponins were unremarkable and he was denying any chest pain so I do recommend outpatient follow-up with cardiology with referral from his PCP for further evaluation. He also had a carotid duplex and he was found to have a 70% stenosis on the right in his extracranial internal carotid artery, will start him on a statin and have him follow-up with vascular surgery as an outpatient as well, this has no bearing on his syncope as carotid stenosis does not lead to syncope. He was started on alcohol withdrawal while here but he does not want to quit drinking and is CIWA scores are 0, I discussed with him the plan for discharge and he expressed understanding there is benefits going home and would like to go home today. He had been asking to be discharged yesterday evening but was able to convince him to stay 1 more day. 2. Spiculated mass in his left lower lobe and left upper lobe?he had had these masses evaluated previously and they were found to be nonmalignant however they have grown in size concerning for malignancy therefore recommend outpatient follow-up with pulmonology for follow-up. Physical Exam Narrative General: Alert, Oriented x3, Cooperative, No apparent distress HEENT: Atraumatic, PERRLA, EOMI, Normocephalic Oral: Moist Mucosa Neck: Supple, No JVD Lungs: Diminished, Normal air movement, No rhonchi, No wheeze, No rales Cardiovascular: Regular rate, Regular Rhythm, Normal S1, Normal S2, No murmurs Abdomen: Soft, Non Tender, Non-Distended, No Hepato-splenomegaly Extremities: No edema, Capillary Refill Less than 3 Seconds Skin: No rashes, No breakdown Musculoskeletal: No Tenderness to Palpation of Joints or Extremities Neurological: No focal neurological deficits, Motor Exam 5/5 strength throughout, Sensory exam intact to light touch and pain Psych/Mental Status: Normal Affect, Appropriate Weight / BMI Weight Weight: 110 lb 14.28 oz Body Mass Index (BMI) 19.0 ABG / Lab / Microbiology Data 11/08/24 07:06 11/08/24 07:06 Laboratory: Laboratory Results - last 24 hr 11/07/24 02:38: Prolactin 6.2 11/08/24 07:06: WBC 5.6, RBC 3.92 L, Hgb 12.3 L, Hct 34.6 L, MCV 88.3, MCH 31.4, MCHC 35.5, RDW Std Deviation 42.9, RDW Coeff of [place] 13.2, Plt Count 294, MPV 9.8, Immature Gran % (Auto) 0.500, Neut % (Auto) 54.0, Lymph % (Auto) 24.7, [place] % (Auto) 18.1 H, Eos % (Auto) 2.0, Baso % (Auto) 0.7, Absolute Neuts (auto) 3.0, Absolute Lymphs (auto) 1.38, Nucleated RBC % 0, Sodium 131 L, Potassium 4.3, Chloride 102, Carbon Dioxide 24.0, Anion Gap 5, BUN 8, Creatinine 0.56 L, Estim Creat Clear Calc 62.00, Est GFR (MDRD) Af Amer 185, Est GFR (MDRD) Non-Af 153, BUN/Creatinine Ratio 14.2, Glucose 86, Calcium 8.8 Microbiology: Microbiology 11/06/24 21:57 Mucosa - Nose SARS-CoV-2, Influenza & RSV (PCR) - Final Radiography Diagnostic Testing: Radiology Impression Carotid Duplex 11/07/24 01:37 Interpretation Summary Severe (>70%) stenosis right extracranial internal carotid. Moderate (50-69%) stenosis left extracranial internal carotid. Patent and antegrade vertebrals bilaterally. Ordering Physician: Goldy Patino Referring Physician: Jesus Callahan Performed By: Rosalva Ochoa RDCS, RVT Echocardiogram 11/07/24 01:37 Interpretation Summary Normal LV size. The left ventricular ejection fraction is 40 %. Moderate segmental systolic dysfunction (see wall motion). Ordering Physician: Goldy Patino Referring Physician: Goldy Patino Performed By: Siria Siu RDCS D/C Instructions Discharge Diet: Low fat / Low cholesterol Call your doctor if you observe: Fever of 101 or Higher, Shortness of breath, Dizziness, Fainting spells, Swelling in the ankles, Chest pain and Increased palpitations (irregular heartbeat) DC O2, CPAP, BIPAP Needs Home O2 Discharge instructions: No Meaningful Use Info Meaningful Use Meaningful Use Diagnoses (Choose all that apply): None applicable Ischemic Stroke Statin Dosing Therapy Reference: STATIN DOSE THERAPY REFERENCE: * Patients > 75 years receive moderate or high dose statin therapy. * Patients 75 years or YOUNGER should receive HIGH intensity statin dose unless contraindicated. You will be required to document reason for non-treatment if statin daily dose does not meet guidelines. HIGH DOSE STATIN THERAPY DAILY Atorvastatin > than or = to 40 mg Rosuvastatin > than or = to 20 mg Amlodipine + Atorvastatin > than or = to 2.5/40 mg Ezetimibe + Simvastatin 10/80 mg Simvastatin 80mg Discharge Plan Admission Admit Date/Time: 11/07/24 00:43 Attending Provider: Janak Ulloa Primary Care Provider: JESUS CALLAHAN Consulting Providers: Goldy Patino Instructions Additional Instructions / Restrictions: Given that your blood pressures been on the lower end while here and the hydrochlorothiazide and your medication can cause a low sodium level which is part of why you came in, I recommend holding your blood pressure medications and following up with your primary care doctor in 3 to 5 days for evaluation and readjustment of blood pressure medications at that time. Will start you on Lipitor for your carotid artery stenosis and I recommend she follow-up with vascular surgery for possible surgical intervention. We did have an echocardiogram which evaluates your heart function and this demonstrated an EF of 40% so I do recommend outpatient follow-up. Also your previous lung lesions that were biopsied. We have grown a little bit so I do recommend pulmonology follow-up and repeat biopsy as an outpatient as well. Discharge Orders/Prescriptions Prescriptions: New atorvastatin [Lipitor] 40 mg tablet 40 mg PO DAILY Qty: 30 0RF Continued tamsulosin 0.4 mg capsule 0.4 mg PO DAILY Patient Comments: TAKE 1 CAPSULE BY MOUTH EVERY DAY Discontinued irbesartan-hydrochlorothiazide 150-12.5 mg tablet 1 tab PO DAILY Patient Comments: TAKE 1 TABLET BY MOUTH EVERY DAY Referrals / Follow Up: Malcolm Torres MD [Med Staff - Active Staff] - Within 1 Month JESUS CALLAHAN NP-C [Primary Care Provider] - Within 1 Week Disposition Disposition (needs filled in before D/C Order can be placed): Home, Self Care Charges/Coding Visit Charges Inpatient E&M: 29005 Disch Hosp >30min
== END 2024-11-08 12:55 | disposition home or self-care (01) | DRG 641 ==
LOC: ED 11-07 00:24 → ICU 11-07 01:09
PROVIDERS: Admitting Provider Internal Medicine; Emergency Provider Emergency Medicine; PCP Nurse Practitioner Family; Referring Provider Internal Medicine; Visit Provider Family Medicine
DX: E87.1 Hypo-osmolality and hyponatremia (principal); E87.6 Hypokalemia; F10.10 Alcohol abuse, uncomplicated; I10 Essential (primary) hypertension; I65.21 Occlusion and stenosis of right carotid artery; F17.210 Nicotine dependence, cigarettes, uncomplicated; I95.1 Orthostatic hypotension; Y90.2 Blood alcohol level of 40-59 mg/100 ml; T50.2X5A Adverse effect of carbonic-anhydrase inhibitors, benzothiadiazides and other diuretics, initial encounter; N40.0 Benign prostatic hyperplasia without lower urinary tract symptoms; R91.8 Other nonspecific abnormal finding of lung field; Z79.899 Other long term (current) drug therapy
CPT/HCPCS: 36415; 70450; 71250; 80048; 80053; 80307; 81001; 82077; 83690; 83735; 83930; 83935; 84100; 84146; 84443; 84484; 85025; 85610; 85730; 87631; 93005; 93306; 93880; 94668; 97116; 97162; 97166; 97802; 97803; 99285; A4216

== ENCOUNTER → 2024-12-01 | Outpatient (CLI) | payer MEDICARE, SELFPAY ==
--- NOTE | 2024-12-01 07:50 | CT_ITS ---
STUDY: CTA HEAD AND NECK WITH CONTRAST REASON FOR EXAM: Male, 69 years old. Severe R ICA stenosis RADIATION DOSAGE (If Supplied By Facility): CTDIvol = ( 33.12 ) mGy, DLP = ( 1437.45 ) mGycm TECHNIQUE: CT angiography was performed with a multi-detector CT scanner. Data acquisition was obtained from the skull base through the vertex following intravenous administration of IV 100mL Isovue-370. MIP images were reconstructed from the axial data set. Post-processing of the angiographic images was performed, with multiplanar reformation and 3D reconstruction. Individualized dose optimization techniques were used for this CT. COMPARISON: No relevant priors. FINDINGS: Normal bilateral petrous carotid arteries. There is calcified plaque formation of the right cavernous carotid artery, without a cross-sectional luminal stenosis. There is calcified plaque formation of the left cavernous carotid artery, with a mild stenosis (less than 50%). Normal right A1 segments of the anterior cerebral artery. Normal left A1 segments of the anterior cerebral artery. Normal intact anterior communicating artery (ACOM). Normal bilateral A2 segments of the anterior cerebral arteries. Normal right M1 and M2 segments of the middle cerebral arteries, with a normal M1 bifurcation. Normal left M1 and M2 segments of the middle cerebral arteries, with a normal M1 bifurcation. Normal right posterior communicating artery (PCOM). Normal left posterior communicating artery (PCOM). Normal bilateral vertebral arteries. Normal basilar artery with a normal basilar bifurcation. The visualized bilateral superior cerebellar (SCA) arteries are normal. Normal bilateral P1, P2 and visualized P3 segments of the posterior cerebral arteries. There is no demonstrated aneurysm of the [place]. Cerebral atrophy. Old tiny lacunar infarct in the posterior aspect of the insular cortex of the left temporal lobe. AORTIC ARCH: There is atherosclerotic calcific plaque formation of the aortic arch and great vessels arising from the aortic arch, without a hemodynamically significant stenosis. There is a normal origin of the brachiocephalic, left common carotid, and left subclavian arteries. Normal origins of the brachiocephalic, left common carotid, and left subclavian arteries. Atherosclerotic calcified plaques at the origin of the left subclavian artery. RIGHT CAROTID ARTERIES: There is atherosclerotic plaque formation of the common carotid artery, but without a hemodynamically significant stenosis. Normal right common carotid bulb. There is severe atherosclerotic plaque formation of the origin of the right internal carotid artery with a near complete occlusion. Normal visualized cervical portion of the right internal carotid artery. Normal origin of the right external carotid artery (ECA). LEFT CAROTID ARTERIES: There is atherosclerotic plaque formation of the common carotid artery, but without a hemodynamically significant stenosis. Normal left common carotid bulb. There is extensive atherosclerotic plaque formation of the origin of the left internal carotid artery with an estimated stenosis of greater than 70%. Normal visualized cervical portion of the left internal carotid artery. Normal origin of the left external carotid artery (ECA). VERTEBRAL ARTERIES: Normal bilateral vertebral arteries. CT/CTA Head AND Neck W/ Contrast IMPRESSION: High-grade stenosis at the origin of both internal carotid arteries right more prominent than left as described. Electronically Signed: Saulo Barahona MD at 12:43 EST ,
== END | disposition home or self-care (01) ==
PROVIDERS: PCP Nurse Practitioner Family; Referring Provider Physician Assistant; Visit Provider Physician Assistant
DX: I65.21 Occlusion and stenosis of right carotid artery (principal)
CPT/HCPCS: 70496; 70498; Q9967

== ENCOUNTER → 2024-12-08 | Outpatient (CLI) | payer MEDICARE, SELFPAY ==
--- NOTE | 2024-12-08 07:55 | AAAS_ITS ---
Reason For Study: AAA Screening Aorta Measurements Aorta Doppler Measurements Proximal aorta measures2.50 x 2.57cm. in cross- Peak systolic flow velocities within the proximal sectional axis. aorta measure 65.6 cm/sec. Proximal aorta measures2.46cm. in longitudinal Peak systolic flow velocities within the mid aorta axis. measure 69.2 cm/sec. Mid aorta measures1.58 x 1.73cm. in cross- Peak systolic flow velocities within the distal sectional axis. aorta measure 83.8 cm/sec. Mid aorta measures1.54cm. in longitudinal axis. Distal aorta measures1.69 x 1.67cm. in cross- sectional axis. Distal aorta measures1.69cm. in longitudinal axis. Heterogenous irregular plaque noted throughout AO. Acoustic shadowing and bowel gas noted at prox AO. Left Iliac Artery Left iliac artery measures 1.01 x 1.00 cm. in the cross-sectional axis. Left iliac artery measures 1.03 cm. in the longitudinal axis. Peak systolic velocity in the left iliac artery measures 113.1 cm/sec. Right Iliac Artery Right iliac artery measures 0.95 x 1.06 cm. in the cross-sectional axis. Right iliac artery measures 1.03 cm. in the longitudinal axis. Peak systolic velocity in the right iliac artery measures 61.9 cm/sec. VL/AAA Screening Interpretation Summary Aorta patent, 2.57 cm ectasia present. Bilateral iliac arteries patent, normal caliber. Ordering Physician: Marjorie Garcia Referring Physician: Trip Celis Performed By: Jose Workman RVT
== END | disposition home or self-care (01) ==
LOC: CVS 07:55
PROVIDERS: PCP Nurse Practitioner Family; Referring Provider Physician Assistant; Visit Provider Physician Assistant
DX: Z13.6 Encounter for screening for cardiovascular disorders (principal)
CPT/HCPCS: 76706

== ENCOUNTER → 2025-02-27 | Outpatient (CLI) | payer MEDICARE, SELFPAY | END | disposition home or self-care (01) | LOC: PSN 09:09 | PROVIDERS: PCP Nurse Practitioner Family; Referring Provider Nurse Practitioner Acute Care; Visit Provider Nurse Practitioner Acute Care | DX: J44.9 Chronic obstructive pulmonary disease, unspecified (principal) | CPT/HCPCS: 94060; 94726; 94729 ==

== ENCOUNTER → 2025-03-02 | Outpatient (CLI) | payer MEDICARE, SELFPAY ==
--- NOTE | 2025-03-02 12:05 | CT_ITS ---
PROCEDURE: CHEST WITH CONTRAST 03/02/2025 REASON FOR EXAM: MEDIASTINAL LYMPHADENOPATHY WITH MULTIPLE PULMONAR TECHNIQUE: Prone and supine chest CT with intravenous contrast, high resolution CT (HRCT) protocol. Coronal and Sagittal reconstruction series were provided. One or more dose reduction techniques were used (e.g., Automated exposure control, adjustment of the mA and/or kV according to patient size, use of iterative reconstruction technique). FINDINGS: Hardware: None Lymph nodes: No mediastinal hilar or axillary lymphadenopathy. Heart and Vasculature: Normal heart size. No pericardial effusion. Atherosclerotic calcifications of the thoracic aorta. Pulmonary arteries are unremarkable. Lungs and Airways: Moderate bilateral apical scarring. Moderate emphysema. 2 cm noncalcified nodule in the left upper lobe of the lungs on image 38 which may represent a scar. 6 mm noncalcified nodule in the anterior left lower lobe lungs adjacent to the major fissure on image 71 consistent with a perifissural lymph node. 2.5 cm spiculated noncalcified nodule in the superior segment left lower lobe of the lungs on image 56 most worrisome for bronchogenic carcinoma and correlation with PET-CT scan or tissue sampling is recommended. Pleura: No pleural effusion Upper Abdomen: Unremarkable Bones: Bone windows are unremarkable. CT/Chest WITH Contrast IMPRESSION: Coronary artery calcification (CAC) is was not evaluable Moderate emphysema with a 2.5 cm spiculated noncalcified left lower lobe nodule most worrisome for bronchogenic carcinoma and correlation with PET-CT scan and/or tissue sampling is recommended. Reading Location: [id number]
[2025-03-02 12:46] VITALS: PULSE 101; PULSE 106; PULSE 113; PULSE 77; PULSE 80; PULSE 97; PULSE 99; O2SAT 92; O2SAT 93; O2SAT 94; O2SAT 95; O2SAT 96; O2SAT 97
--- NOTE | 2025-03-03 12:16 | WT_ITS ---
PSN 6 Minute Walk Test 6 Minute Walk Test 6 Minute Walk Test: 6 Minute Walk Test PSN:6-Minute Walk Test Start: 03/02/25 12:46 Freq: Status: Active Protocol: RESP.6MINW Document 03/02/25 12:46 ISAIAS (Rec: 03/02/25 12:52 ISAIAS [id number]) 6 Minute Walk Test Date Performed 03/02/25 Time Performed 12:35 Height 5 ft 4 in Weight: 120 lb Weight in Pounds 120.[address]: Raegan Ledezma [employer] CONSERVATIONIST Assistive device None used: Pre-test Oxygen Delivery Room Air Method Pulse Ox (%) 97 Pulse Rate (60-100 77 beats/min) Dyspnea Anton Scale ( 0 0-10) Exertion Anton Scale 6 (6-20) 1st minute Oxygen Delivery Room Air Method Pulse Ox (%) 96 Pulse Rate (60-100 97 beats/min) 2nd minute Oxygen Delivery Room Air Method Pulse Ox (%) 94 Pulse Rate (60-100 99 beats/min) 3rd minute Oxygen Delivery Room Air Method Pulse Ox (%) 94 Pulse Rate (60-100 101 H beats/min) 4th minute Oxygen Delivery Room Air Method Pulse Ox (%) 93 Pulse Rate (60-100 106 H beats/min) 5th minute Oxygen Delivery Room Air Method Pulse Ox (%) 92 Pulse Rate (60-100 106 H beats/min) 6th minute Oxygen Delivery Room Air Method Pulse Ox (%) 92 Pulse Rate (60-100 113 H beats/min) Dyspnea Anton Scale ( 2 0-10) Exertion Anton Scale 12 (6-20) Post-test Oxygen Delivery Room Air Method Pulse Ox (%) 95 Pulse Rate (60-100 80 beats/min) Full Laps Walked 16 Partial Lap, Number 47 of Tiles Walked Total Distance 991 Walked (ft) Interpretation Interpretation: The patient ambulated 991 feet over the course of 6 minutes beginning on room air without assistive devices. Pretesting oxygen saturation was noted to be 97% on room air. With ambulation, the adi oxygen saturation was 92%. This represents a significant exertional oxygen desaturation, consistent with a pulmonary limitation to exercise tolerance. Recommendations Recommendations: There is no indication for the use of supplemental oxygen at this time. H owever, close interval follow-up is recommended, given the degree of oxygen desaturation noted during this study.
== END | disposition home or self-care (01) ==
PROVIDERS: PCP Nurse Practitioner Family; Referring Provider Nurse Practitioner Acute Care; Visit Provider Nurse Practitioner Acute Care
DX: R59.0 Localized enlarged lymph nodes (principal); J44.9 Chronic obstructive pulmonary disease, unspecified
CPT/HCPCS: 71260; 94618; Q9967

== ENCOUNTER 2025-04-07 08:36 | Outpatient (CLI) | payer MEDICARE, SELFPAY ==
[2025-04-07] VITALS (9 sets, daily range): BP systolic 131–172; BP diastolic 40–88; PULSE 65–101; RESP 20–36; TEMP 36.3; O2SAT 89–98; BMI 20.5
[2025-04-07 08:56] LABS: Absolute Lymphocyte Count 1.95 X10^3/uL (0.83-4.51); Absolute Neutrophil Count 4.6 X10^3/uL (2.0-7.7); Basophil# 0.08 X10^3/uL; Eosinophil# 0.11 X10^3/uL; Eosinophils% 1.4 % (0-5); Hematocrit 44.7 % (40-54); Hemoglobin 15.6 g/dL (13.0-16.5); Lymphocyte # 1.95 X10^3/ul (0.83-4.51); Lymphocyte % 24.4 % (19-41); Mean Corp Hgb Conc 34.9 g/dL (32-36); Mean Corpuscular Hgb 30.6 pg (27.0-32.0); Mean Corpuscular Volume 87.8 fL (80-94); Mean Platelet Vol. 9.8 fl (6.2-12.0); Monocyte# 1.21 X10^3/uL; Monocyte% 15.2 % (0-10); NRBC Flagged by Analyzer 0 % (0-5); Neutrophil % 57.6 % (47-70); Platelet Count 319 K/mm3 (150-450); RBC Distribution Width CV 14.3 % (11.6-14.6); RBC Distribution Width SD 45.9 fl (35.1-43.9); Red Blood Count 5.09 M/mm3 (4.6-6.2)
[2025-04-07 09:42] LABS: Prothrombin Time (Protime)PT. 13.4 SECONDS (11.7-14.9)
[2025-04-07 09:43] LABS: Partial Thromboplast Time 31.6 Seconds (24.1-36.2)
--- NOTE | 2025-04-07 10:00 | CT_ITS ---
PROCEDURE: BIOPSY/INJ OR NEEDLE PLACEMENT 04/07/2025. CT-guided lung biopsy of a left lower lobe nodule. REASON FOR EXAM: LEFT UPPER LOBE NODULE INCREASING IN SIZE TECHNIQUE: The procedure as well as the benefits and possible complications including infection and bleeding were explained to the patient. Possibility of a pneumothorax was also explained. The patient signed informed consent. The patient was in the prone position. Conscious sedation was performed. The patient received 2 mg of Versed and 50 mcg of fentanyl intravenously. Conscious sedation was started at 10:09 a.m. and terminated at 10:28 a.m.. The overlying skin was prepped and draped in the usual sterile fashion. Following local anesthetic application, a 20 gauge biopsy needle was placed into the left lower lobe pulmonary nodule. 4 core biopsies were obtained. The specimen was deemed adequate by the pathologist. Following the procedure, the patient developed a 20% pneumothorax. The patient was treated appropriately. One or more dose reduction techniques were used (e.g., Automated exposure control, adjustment of the mA and/or kV according to patient size, use of iterative reconstruction technique). RADIATION DOSE SUMMARY: CTDlvol: 14.5 mGy DLP: 193.66 mGycm COMPARISON: Prior study dated March 02, 2025. FINDINGS: Successful CT-guided biopsy of the left lower lobe pulmonary nodule. CT/Biopsy/Inj or Needle Placement IMPRESSION: Successful percutaneous biopsy of a left lower lobe pulmonary nodule as describ ed. The patient tolerated the procedure well. The patient developed a left-sided pneumothorax which was treated appropriately . Reading Location: [facility]
[2025-04-07] MEDS: 0.9% Normal Saline (250mL Bag) 250 ML 15 ML IV (10:08)
[2025-04-07] MEDS: Midazolam 2 MG/2 ML Syringe IV ×2 (10:09→10:26)
[2025-04-07] MEDS: fentaNYL 100 MCG/2 ML Ampul IV ×2 (10:12→10:27)
--- NOTE | 2025-04-07 10:15 | ASPIGT_PTH ---
PATIENT: PATRICK ANDRES Jr. LOC: ME U#:[id number] AGE/SX: 70/M ROOM: RE04/07/[address]: FRIEDA Mejía : 1955 BED: DIS: 04/07/2025 SPEC #: [id number] RECD: 04/07/25 10:35 STATUS: SAMREEN REBrenda #: [id number] DAVID: 04/07/25 10:[address]: Raegan Ledezma NP DEPT: SURGICAL PATHOLOGY RECD BY: Gilberto Lowry ENTERED: 04/07/25 10:45 SP TYPE: ASP RAD OTHR DR: FRIEDA KEARNEY Tissues: A - Lung, NOS Procedures: FNA Specimen Adequacy Immunohistochemical Stains Special Stain Group II Surgery Specimen Level IV Imprint (control) IHC Stain ADDITIONAL HEADER OPERATION: Lung biopsy - left PRE-OP DIAGNOSIS: Left lung mass TISSUE SUBMITTED: A- Left lung biopsy , 20 gauge x 4 cores MICROSCOPIC DIAGNOSIS A. Left lung, "mass", biopsy: * Adenocarcinoma, acinar pattern. * IHC positive for pancytokeratin, CK7, TTF1. * IHC negative for CK20, CK5/6, p40. * See note. * Note: The immunophenotype (IHCs) supports the histologic impression of adenocarcinoma. COMMENT The specimen is evaluated at the time of biopsy by Dr. Chisholm. Immediate Evaluation = 1. Malignant. 2. Malignant. MICROSCOPIC DESCRIPTION Slides are reviewed. All matched controls reacted appropriately. These tests were developed and their performance characteristics determined by [facility]. They may not have been cleared or approved by the U.S. Food and Drug Administration. The FDA has determined that such clearance or approval is not necessary. The above immunohistochemical/dualISH markers are ordered and reviewed by the Pathologist. GROSS DESCRIPTION A. Received in formalin in a container labeled with the patient's name, date of , and with the accompanying paperwork indicating, "lung biopsy left, left lung mass" are multiple shaikh-pink fragments of soft tissue measuring 1.1 x 0.5 x 0.2 cm in aggregate. Submitted in toto in A1. B 04-07-2025 CPT:96000,16491,09634,53546m0 ADDENDUM ADDENDUM ADDENDUM ADDENDUM ADDENDUM ADDENDUM ADDENDUM ADDENDUM ADDENDUM ADDENDUM ADDENDUM ADDENDUM ADDENDUM ADDENDUM ADDENDUM ADDENDUM ADDENDUM ADDENDUM ADDENDUM ADDENDUM ADDENDUM ADDENDUM ADDENDUM ADDENDUM ADDENDUM ADDENDUM ADDENDUM ADDENDUM ADDENDUM ADDENDUM ADDENDUM ADDENDUM ADDENDUM ADDENDUM ADDENDUM ADDENDUM ADDENDUM ADDENDUM ADDENDUM ADDENDUM ADDENDUM ADDENDUM ADDENDUM ADDENDUM ADDENDUM ADDENDUM ADDENDUM ADDENDUM 05/15/2025 09:27 ADDENDUM 05/15/2025 09:27 ADDENDUM 05/15/2025 09:27 ADDENDUM 05/15/2025 09:27 ADDENDUM 05/15/2025 09:27 This addendum is added to incorporate an outside pathology consultation report. The case was examined at [facility] (#[id number]) and the following diagnosis was rendered. A. Left lung, mass, biopsy: PD-L1 IHC 22C3 pharmDx Result: Positive, TPS: 11% HER2 IHC (4B5) result: 2+ (not reflexed in NSCLC, comment below). NGS Mutation Panel: No BRAF, EGFR, ERBB2, MET, STEVE or other targetable mutations. FISH: No ALK or ROS1 rearrangement or amplification or MET NTRK / RET ? FGFR Fusion Panel: Negative COMMENT: HER2 immunohistochemical expression (3+) using this assay may be an indication for use of trastuzumab deruxtecan-nxki in NSCLC and other solid tumors. Correlation with HER2 mutation is recommended. FISH, Lung panel (ALK, MET, ROS1) Result: INTERPRETATION: No rearrangements of the ALK or ROS1 genes or amplification of the MET gene are detected. The clinical relevance of this result should be interpreted in the context of the tumor morphology and other testing. Internal and external controls show expected signal pattern. ALK Rearrangement: Negative MET Amplification: Not detected MET / CEP7 ratio: 1.0 Copy number: 3.5 ROS1 Rearrangement: Negative Lung Cancer Mutation Panel Result: PULMOL NGS Summary: A TP53 mutation and other variants were detected. INTERPREATION: Inactivating mutation in TP53 and a missense PTEN variant detected. No targetable BRAF, EGFR, KRAS, or MET mutations. NTRK Fusion Panel Result: NTRK Fusion Result: Not detected. NTRK Fusion Interpretation: No NTRK1, NTRK2, NTRK3, or other reportable gene fusions identified by RNA fusion panel. Please see complete above mentioned consultation report in EMR
[2025-04-07] MEDS: Lidocaine 2% (20 ml mdv) 20 ML Vial INFILT (10:24)
--- NOTE | 2025-04-07 10:33 | RAD_ITS ---
EXAM: AP inspiration views. CLINICAL HISTORY: Status post left lung biopsy. COMPARISON: Prior study dated January 15, 2024. TECHNIQUE: AP inspiration views were obtained immediately following the left lung biopsy. FINDINGS: There is evidence of a 20% left-sided pneumothorax. The patient is symptomatic. The patient was sent to the emergency room for appropriate treatment. RAD/Chest Insp/Exp 2 View IMPRESSION: 20% left-sided pneumothorax following a CT-guided left lung biopsy. The patient was sent to the emergency room for appropriate treatment. Reading Location: [place] [address]
== END 2025-04-07 23:59 | disposition home or self-care (01) ==
LOC: CT 08:37
PROVIDERS: Radiology Diagnostic Radiology; PCP Nurse Practitioner Family; Referring Provider Nurse Practitioner Acute Care; Visit Provider Nurse Practitioner Acute Care
DX: C34.32 Malignant neoplasm of lower lobe, left bronchus or lung (principal); J95.811 Postprocedural pneumothorax
CPT/HCPCS: 32408; 36415; 71046; 77012; 85025; 85610; 85730; 88172; 88305; 88313; 99156; A4216; C2613

== ENCOUNTER 2025-04-07 10:45 | Inpatient (IN) | payer MEDICARE, SELFPAY ==
[2025-04-07] VITALS (11 sets, daily range): BP systolic 94–137; BP diastolic 53–69; PULSE 53–86; RESP 18–32; TEMP 36.4–37; O2SAT 94–100; BMI 19.2
--- NOTE | 2025-04-07 11:14 | EDS_ITS ---
HPI History of Present Illness Chief Complaint: Shortness of Breath Informant: patient Narrative Narrative: 78-year-old male was here to get a lung biopsy in interventional radiology as an outpatient, and as a result he sustained a pneumothorax. He started getting short of breath, hypoxic in the 80s, they have him on a nasal cannula he was not on home oxygen prior to coming here. He is not having pain but he is having a hard time breathing. [facility] Medical History BPH without urinary obstruction COPD (chronic obstructive pulmonary disease) Orthostatic hypotension Pulmonary nodules Hyponatremia Syncope and collapse Hypokalemia Chronic alcohol abuse Stenosis of right internal carotid artery Abnormal echocardiogram Mass of left lung Vision loss of left eye Smoker Hypertension Nicotine dependence, cigarettes, uncomplicated Home Medications Medication Instructions Recorded Last Taken Type tamsulosin 0.4 mg capsule 0.4 mg PO DAILY 12/29/23 History albuterol sulfate 90 mcg/actuation 1 puff inhalation Q 4H PRN 12/09/24 Unknown History aerosol inhaler hydroxyzine HCl 50 mg tablet 50 mg PO QHS 12/26/24 History aspirin 81 mg tablet,delayed 81 mg PO DAILY 04/07/25 0 04/06/25 History release (Adult Low Dose Aspirin) atorvastatin 40 mg tablet (Lipitor) 40 mg PO QHS 04/0704/06/25 History glycopyrrolate 9 mcg-formoterol 2 puff inhalation Q12H 04/07/25 04/06/25 History 4.8 mcg HFA aerosol inhaler (Bevespi Aerosphere) Allergy/AdvReac Type Severity Reaction Status Date / Time hydrochlorothiazide AdvReac hyponatremi Verified 04/07/25 10:46 a Family History Father Cancer Mother Diabetes Surgical History History of colonoscopy H/O vasectomy Social History household members: family housing: house current occupational status: retired Smoking Status: Current every day smoker tobacco type: cigarettes alcohol intake: current alcohol intake frequency: 3 or more drinks per day Alcohol type: beer details: up to 12 beers daily substance use type: does not use caffeine: Yes ROS ROS ED Constitutional Constitutional ED: Denies chills or fever(s) Eyes Eyes: Denies change in vision or diplopia ENT ENT ED: Denies rhinorrhea or sore throat Cardiovascular Cardiovascular: Denies chest pain or palpitations Respiratory/Chest Respiratory/Chest: Reports cough and dyspnea Gastrointestinal Gastrointestinal: Denies abdominal pain, diarrhea, nausea or vomiting Genitourinary Genitourinary ED: Denies dysuria or hematuria Musculoskeletal Musculoskeletal: Denies back pain or neck pain Integumentary Denies abscess or rash Neurologic Neurologic: Denies headache(s), paresthesias or weakness Psychiatric Psychiatric: Denies anxiety or suicidal thoughts EXAM Physical Exam Const Vital Signs: 04/07/25 10:47 Temperature 97.9 F Temperature Source Oral Pulse Rate 82 Respiratory Rate 28 H Pulse Ox 94 Oxygen Delivery Method Nasal Cannula Positive well nourished and well developed General Appearance ED: well developed and NAD HEENT Reports moist mucous membranes HEENT Narrative: Disconjugate gaze normocephalic and atraumatic Eyes PERRL and EOMs intact bilaterally Neck full ROM and supple Resp Resp Narrative: Diminished throughout. Decreased breath sounds on the left side. Pulses are equal trachea is midline, keenly alert. Tachypneic. Cardio regular rate, regular rhythm and no murmurs GI non-tender and non-distended Auscultation: normoactive bowel sounds Palpation: soft Back/Spine no CVA tenderness General Back: other FROM Extremity normal to inspection General Extremety ED: Negative for edema, pulses abnormal or tenderness General Extremity: Negative for edema or pulses abnormal Neuro oriented x3, CN's II-XII intact bilaterally and no sensory deficits noted Sensorium / Orientation: awake and alert Motor Exam: strength 5/5 throughout Psych mental status grossly normal Skin no rashes or lesions noted and no wounds Discharge Plan Triage Chief Complaint: Shortness of Breath ED Provider: Stefan Shultz Dx/Rx/DC Orders Prescriptions: No Action tamsulosin 0.4 mg capsule 0.4 mg PO DAILY albuterol sulfate 90 mcg/actuation HFA aerosol inhaler 1 puff inhalation Q4H PRN hydroxyzine HCl 50 mg tablet 50 mg PO QHS atorvastatin [Lipitor] 40 mg tablet 40 mg PO QHS aspirin [Adult Low Dose Aspirin] 81 mg tablet,delayed release (DR/EC) 81 mg PO DAILY Bevespi Aerosphere 9-4.8 mcg HFA aerosol inhaler 2 puff inhalation Q12H Primary Care Provider: JESUS CALLAHAN Referrals: JESUS CALLAHAN, [facility] [employer] [Primary Care Provider] - Print Language: Irish
--- NOTE | 2025-04-07 11:14 | ED.VIS.DYS ---
HPI History of Present Illness Chief Complaint: Shortness of Breath Informant: patient Narrative Narrative: 78-year-old male was here to get a lung biopsy in interventional radiology as an outpatient, and as a result he sustained a pneumothorax. He started getting short of breath, hypoxic in the 80s, they have him on a nasal cannula he was not on home oxygen prior to coming here. He is not having pain but he is having a hard time breathing. [facility] Medical History BPH without urinary obstruction COPD (chronic obstructive pulmonary disease) Orthostatic hypotension Pulmonary nodules Hyponatremia Syncope and collapse Hypokalemia Chronic alcohol abuse Stenosis of right internal carotid artery Abnormal echocardiogram Mass of left lung Vision loss of left eye Smoker Hypertension Nicotine dependence, cigarettes, uncomplicated Home Medications Medication Instructions Recorded Last Taken Type tamsulosin 0.4 mg capsule 0.4 mg PO DAILY 12/29/23 04/06/25 History albuterol sulfate 90 mcg/actuation 1 puff inhalation Q4H PRN 12/09/24 Unknown History aerosol inhaler hydroxyzine HCl 50 mg tablet 50 mg PO QHS 12/26/24 04/06/25 History aspirin 81 mg tablet,delayed 81 mg PO DAILY 04/07/25 04/06/25 History release (Adult Low Dose Aspirin) atorvastatin 40 mg tablet (Lipitor) 40 mg PO QHS 04/07/25 04/06/25 History glycopyrrolate 9 mcg-formoterol 2 puff inhalation Q12H 04/07/25 04/06/25 History 4.8 mcg HFA aerosol inhaler (Bevespi Aerosphere) Allergy/AdvReac Type Severity Reaction Status Date / Time hydrochlorothiazide AdvReac hyponatremi Verified 04/07/25 10:46 a Family History Father Cancer Mother Diabetes Surgical History History of colonoscopy H/O vasectomy Social History household members: family housing: house current occupational status: retired Smoking Status: Current every day smoker tobacco type: cigarettes alcohol intake: current alcohol intake frequency: 3 or more drinks per day Alcohol type: beer details: up to 12 beers daily substance use type: does not use caffeine: Yes ROS ROS ED Constitutional Constitutional ED: Denies chills or fever(s) Eyes Eyes: Denies change in vision or diplopia ENT ENT ED: Denies rhinorrhea or sore throat Cardiovascular Cardiovascular: Denies chest pain or palpitations Respiratory/Chest Respiratory/Chest: Reports cough and dyspnea Gastrointestinal Gastrointestinal: Denies abdominal pain, diarrhea, nausea or vomiting Genitourinary Genitourinary ED: Denies dysuria or hematuria Musculoskeletal Musculoskeletal: Denies back pain or neck pain Integumentary Denies abscess or rash Neurologic Neurologic: Denies headache(s), paresthesias or weakness Psychiatric Psychiatric: Denies anxiety or suicidal thoughts EXAM Physical Exam Const Vital Signs: 04/07/25 10:47 04/07/25 11:45 04/07/25 12:00 Temperature 97.9 F Temperature Source Oral Pulse Rate 82 86 Respiratory Rate 28 H 32 H Respiratory Effort Short of Breath Labored Respiratory Depth Normal Respiratory Pattern Normal Blood Pressure 137/69 H Blood Pressure Mean 91 Pulse Ox 94 99 Oxygen Delivery Method Nasal Cannula Nasal Cannula Nasal Cannula Oxygen Flow Rate (L/min) 5 5 04/07/25 12:00 Temperature Temperature Source Pulse Rate 65 Respiratory Rate 28 H Respiratory Effort Respiratory Depth Respiratory Pattern Blood Pressure 137/69 H Blood Pressure Mean 91 Pulse Ox 99 Oxygen Delivery Method Room Air Oxygen Flow Rate (L/min) Positive well nourished and well developed General Appearance ED: well developed and NAD HEENT Reports moist mucous membranes HEENT Narrative: Disconjugate gaze normocephalic and atraumatic Eyes PERRL and EOMs intact bilaterally Neck full ROM and supple Resp Resp Narrative: Diminished throughout. Decreased breath sounds on the left side. Pulses are equal trachea is midline, keenly alert. Tachypneic. Cardio regular rate, regular rhythm and no murmurs GI non-tender and non-distended Auscultation: normoactive bowel sounds Palpation: soft Back/Spine no CVA tenderness General Back: other FROM Extremity normal to inspection General Extremety ED: Negative for edema, pulses abnormal or tenderness General Extremity: Negative for edema or pulses abnormal Neuro oriented x3, CN's II-XII intact bilaterally and no sensory deficits noted Sensorium / Orientation: awake and alert Motor Exam: strength 5/5 throughout Psych mental status grossly normal Skin no rashes or lesions noted and no wounds MDM MDM MDM Narrative Medical decision making narrative: I reviewed the patient's inspiratory and expiratory x-rays that he had just prior to being sent here, they show fairly significant pneumothorax on the left, probably 30% or more. Given this, I recommend a chest tube to the patient. I think doing a small bore second intercostal space anterior chest tube is appropriate since he does not have a traumatic pneumothorax or hemothorax. See the procedure note this went well. He was breathing better afterwards. Two-view chest x-ray shows resolution of the pneumothorax and good chest tube placement. Discussed with surgery send pulmonary not available, agrees with inpatient observation and okay to follow. Lab Data Attestation: I reviewed the patient's lab results. Labs: Laboratory Results - last 24 hr 04/07/25 11:21 WBC 8.1 RBC 4.76 Hgb 14.5 Hct 41.7 MCV 87.6 MCH 30.5 MCHC 34.8 RDW Std Deviation 46.2 H RDW Coeff of [place] 14.3 Plt Count 309 MPV 10.0 Immature Gran % (Auto) 0.500 Neut % (Auto) 66.2 Lymph % (Auto) 20.0 Citrus % (Auto) 12.0 H Eos % (Auto) 0.7 Baso % (Auto) 0.6 Absolute Neuts (auto) 5.4 Absolute Lymphs (auto) 1.62 Nucleated RBC % 0 Sodium 132 L Potassium 4.5 Chloride 100 Carbon Dioxide 21.1 Anion Gap 11 BUN 8 Creatinine 0.62 L Estim Creat Clear Calc 61.74 Est GFR (MDRD) Non-Af 103 BUN/Creatinine Ratio 12.7 Glucose 84 Calcium 8.9 Radiography Diagnostic Testing: Clinical Impression(s) from Imaging Studies Chest X-Ray 04/07/25 12:31 IMPRESSION: Status post small caliber chest tube placement for treatment of a left pneumothorax. The left pneumothorax has resolved. Reading Location: [facility] Management Discussion w/another healthcare provider: Hospitalist and Medical Billing Representative (surgery Marilyn - ok to follow; pulm not avail) Procedures Other Procedures Procedure(s): Left thoracostomy: After informed consent from the patient, he was given morphine beforehand, as well as local lidocaine 2 cc left midclavicular line second-third area intercostal space, I aspirated a small amount of air over top of the third rib, deployed lidocaine into the area, sterilized with chlorhexidine and draped in a sterile fashion, made a small incision in the skin with the included #11 blade, and placed UreSil thoracostomy via modified Seldinger technique, aspirated air, tolerated well no complications. We connected this to Pleur-evac, patient is making good tidal volumes with the water and the vacuum and there is a small air leak when he exhales. 2 view chest x-ray shows improvement. Tolerated well, no complications. Discharge Plan Dx/Rx/DC Orders Clinical Impression: Iatrogenic pneumothorax, COPD (chronic obstructive pulmonary disease), Hypoxemia Disposition Disposition: Acute Care Hospital [facility]
[2025-04-07] MEDS: Morphine 4 MG/ML Syringe IV (11:22)
[2025-04-07] MEDS: Lidocaine 1% (20 ml mdv) 20 ML Vial 5 ML INFILT (11:23)
[2025-04-07 11:30] LABS: Absolute Lymphocyte Count 1.62 X10^3/uL (0.83-4.51); Absolute Neutrophil Count 5.4 X10^3/uL (2.0-7.7); Basophil# 0.05 X10^3/uL; Basophil% 0.6 % (0-1); Eosinophil# 0.06 X10^3/uL; Eosinophils% 0.7 % (0-5); Hematocrit 41.7 % (40-54); Hemoglobin 14.5 g/dL (13.0-16.5); Lymphocyte # 1.62 X10^3/ul (0.83-4.51); Mean Corp Hgb Conc 34.8 g/dL (32-36); Mean Corpuscular Hgb 30.5 pg (27.0-32.0); Mean Corpuscular Volume 87.6 fL (80-94); Monocyte# 0.97 X10^3/uL; NRBC Flagged by Analyzer 0 % (0-5); Neutrophil # 5.37 X10^3/uL (2.7-7.7); Neutrophil % 66.2 % (47-70); Platelet Count 309 K/mm3 (150-450); RBC Distribution Width CV 14.3 % (11.6-14.6); RBC Distribution Width SD 46.2 fl (35.1-43.9); Red Blood Count 4.76 M/mm3 (4.6-6.2); White Blood Count 8.1 K/mm3 (4.4-11.0)
[2025-04-07 11:58] LABS: Anion Gap 11 (5-15); BUN 8 mg/dL (4-19); BUN/Creat Ratio 12.7 RATIO (10-20); Calcium,Total 8.9 mg/dL (7.6-11.0); Carbon Dioxide 21.1 mmol/L (21.0-32.0); Chloride 100 mmol/L (98-108); Creatinine, Serum 0.62 mg/dL (0.70-1.20); EST Glomerular Filtration Rate 103 (>60); Estimated Creatinine Clearance 61.74 ml/min (50-250); Glucose 84 mg/dL (70-99); Potassium 4.5 mmol/L (3.3-5.1); Sodium Level 132 mmol/L (133-145)
--- NOTE | 2025-04-07 12:13 | ED.RN ---
Thoravent 11F [address] Shultz.
--- NOTE | 2025-04-07 12:31 | RAD_ITS ---
EXAM: Chest inspiration expiration views CLINICAL HISTORY: Left-sided pneumothorax following a left lung biopsy. COMPARISON: Prior study done earlier in the day. TECHNIQUE: Inspiration expiration views were obtained. FINDINGS: A small caliber chest tube has been placed in the upper aspect of the left hemithorax. The left-sided pneumothorax has not resolved. RAD/Chest Insp/Exp 2 View IMPRESSION: Status post small caliber chest tube placement for treatment of a left pneumoth orax. The left pneumothorax has resolved. Reading Location: [place] [id number]
--- NOTE | 2025-04-07 12:58 | PCM.HP.STD ---
HPI - General General Date of Admission: 04/07/25 Date of Service: 04/07/25 Chief Complaint: shortness of breath HPI Narrative PATRICK ANDRES, is a 70 M with a PMH as outlined who presents via the ED On 04/07/2025 with a complaint of shortness of breath. HE came in for a scheduled outpatient lung biopsy, and sustained a pneumothorax as a complication. He developed shortness of breath so was sent over to the ED. He denied any cough, chest pain, palpitations, dizziness, nausea, vomiting or any other symptoms. Review of systems is otherwise negative. VItals in the ED were BP of 137/69, AK of 65, RR of 28 and oxygen sats of 99% on 5L of oxygen. CBC showed hemoglobin of 14.5 with WBC of 8.1 and platelets of 309. Chemistry showed sodium of 132 with potassium of 4.5 and bicarb of 21.1. Anion gap is 11. Creatinine was 0.62. Chest x-ray after he had chest tube inserted showed s/p small caliber chest tube placement for treatment of left pneumothorax. Left pneumothorax has resolved. He has been admitted to be managed for iatrogenic pneumothorax after lung biopsy. [facility] Medical History BPH without urinary obstruction COPD (chronic obstructive pulmonary disease) Orthostatic hypotension Pulmonary nodules Hyponatremia Syncope and collapse Hypokalemia Chronic alcohol abuse Stenosis of right internal carotid artery Abnormal echocardiogram Mass of left lung Vision loss of left eye Smoker Hypertension Nicotine dependence, cigarettes, uncomplicated Home Medications Medication Instructions Recorded Last Taken Type tamsulosin 0.4 mg capsule 0.4 mg PO DAILY 12/29/23 04/06/25 History albuterol sulfate 90 mcg/actuation 1 puff inhalation Q4H PRN 12/09/24 Unknown History aerosol inhaler hydroxyzine HCl 50 mg tablet 50 mg PO QHS 12/26/24 04/06/25 History aspirin 81 mg tablet,delayed 81 mg PO DAILY 04/07/25 04/06/25 History release (Adult Low Dose Aspirin) atorvastatin 40 mg tablet (Lipitor) 40 mg PO QHS 04/07/25 04/06/25 History glycopyrrolate 9 mcg-formoterol 2 puff inhalation Q12H 04/07/25 04/06/25 History 4.8 mcg HFA aerosol inhaler (Bevespi Aerosphere) Allergy/AdvReac Type Severity Reaction Status Date / Time hydrochlorothiazide AdvReac hyponatremi Verified 04/07/25 10:46 a Family History (Reviewed 03/14/25 @ 08:50 by Raegan Ledezma TRAIN OPERATIONS SUPERVISOR, TRAIN OPERATIONS SUPERVISOR-C) Father Cancer Mother Diabetes Surgical History (Reviewed 03/14/25 @ 08:50 by Raegan Ledezma TRAIN OPERATIONS SUPERVISOR, TRAIN OPERATIONS SUPERVISOR-C) History of colonoscopy H/O vasectomy Social History household members: family housing: house current occupational status: retired Smoking Status: Current every day smoker tobacco type: cigarettes alcohol intake: current alcohol intake frequency: 3 or more drinks per day Alcohol type: beer details: up to 12 beers daily substance use type: does not use caffeine: Yes ROS Constitutional Constitutional: Denies anorexia, chills, fatigue, fever(s), malaise or weakness Eyes Eyes: Denies change in vision ENT HEENT: Denies dysphagia, headache(s) or sore throat Cardiovascular Cardiovascular: Reports dyspnea on exertion; Denies chest pain, edema, lightheadedness, orthopnea, palpitations, paroxysmal nocturnal dyspnea, rapid heart rate or syncope Respiratory/Chest Respiratory/Chest: Reports dyspnea, shortness of breath at rest and shortness of breath with exertion; Denies cough, excessive phlegm production, hemoptysis, productive cough or wheezing Gastrointestinal Gastrointestinal: Denies abdominal pain, diarrhea, dyspepsia, nausea or vomiting Genitourinary Genitourinary: Denies burning urination or dysuria Musculoskeletal Musculoskeletal: Denies arthralgias Neurologic Neurologic: Denies confusion, dizziness, focal weakness, headache(s), seizure-like activity or seizures Psychiatric Psychiatric: Denies anxiety or depression Endocrine Endocrinology: Denies change in body appearance Vital Signs Vital Signs Vital Signs: 04/07/25 10:47 04/07/25 11:45 04/07/25 12:00 Temperature 97.9 F Temperature Source Oral Pulse Rate 82 86 Respiratory Rate 28 H 32 H Respiratory Effort Short of Breath Labored Respiratory Depth Normal Respiratory Pattern Normal Blood Pressure 137/69 H Blood Pressure Mean 91 Pulse Ox 94 99 Oxygen Delivery Method Nasal Cannula Nasal Cannula Nasal Cannula Oxygen Flow Rate (L/min) 5 5 04/07/25 12:00 Temperature Temperature Source Pulse Rate 65 Respiratory Rate 28 H Respiratory Effort Respiratory Depth Respiratory Pattern Blood Pressure 137/69 H Blood Pressure Mean 91 Pulse Ox 99 Oxygen Delivery Method Room Air Oxygen Flow Rate (L/min) Weight Weight: 111 lb 15.917 oz Body Mass Index (BMI) 19.2 Physical Exam Const alert, oriented x3 and no apparent distress General Appearance: cooperative HEENT normocephalic, head/scalp atraumatic, hearing grossly normal bilaterally and moist oral mucous membranes Mouth: oral and palatal mucosa normal Eyes PERRL, EOMs intact bilaterally and conjunctivae normal Neck no lymphadenopathy and supple Resp Resp Narrative: mildly diminished breath sounds bibasally, no wheezes or crackles. On 5L of oxygen by nasal canula. small chest tube in situ in anterior part of left side of chest Cardio regular rate, regular rhythm, S1 normal heart sound, S2 normal heart sound and no murmurs GI normal to inspection, nondistended, normoactive bowel sounds, soft to palpation, non-tender and non-distended Extremity normal to inspection, full ROM and no clubbing, cyanosis or edema Neuro oriented x3, CN's II-XII intact bilaterally, moves all extremities and no focal motor deficits Sensorium / Orientation: awake and alert Motor Exam: strength 5/5 throughout Psych affect normal Results Lab / Micro Data 04/07/25 11:21 04/07/25 11:21 Labs: Laboratory Results - last 24 hr 04/07/25 11:21: WBC 8.1, RBC 4.76, Hgb 14.5, Hct 41.7, MCV 87.6, MCH 30.5, MCHC 34.8, RDW Std Deviation 46.2 H, RDW Coeff of [place] 14.3, Plt Count 309, MPV 10.0, Immature Gran % (Auto) 0.500, Neut % (Auto) 66.2, Lymph % (Auto) 20.0, [place] % (Auto) 12.0 H, Eos % (Auto) 0.7, Baso % (Auto) 0.6, Absolute Neuts (auto) 5.4, Absolute Lymphs (auto) 1.62, Nucleated RBC % 0, Sodium 132 L, Potassium 4.5, Chloride 100, Carbon Dioxide 21.1, Anion Gap 11, BUN 8, Creatinine 0.62 L, Estim Creat Clear Calc 61.74, Est GFR (MDRD) Non-Af 103, BUN/Creatinine Ratio 12.7, Glucose 84, Calcium 8.9 Imaging Radiology Impression Chest X-Ray 04/07/25 12:31 IMPRESSION: Status post small caliber chest tube placement for treatment of a left pneumothorax. The left pneumothorax has resolved. Reading Location: [place] [id number] Assessment & Plan Assessment/Plan (1) Iatrogenic pneumothorax: (2) Hypoxemia: PLAN: Plan #Left iatrogenic pneumothorax after lung biopsy Patient came in today to have scheduled left lung nodule biopsy. This procedure was complicated by left pneumothorax Had a small caliber chest tube inserted in the ED. Follow-up chest x-ray showed that the left pneumothorax had resolved. Admit to [facility]. Keep chest tube with oxygen for eval. Consult general surgery to help manage the chest tube. Breathing treatments and bronchodilators. Currently on 5 L of oxygen. Titrate oxygen to maintain saturation above 90%. #Hypoxia due to iatrogenic pneumothorax: Management as above. #BPH: on flomax #COPD: not in exacerbation. Breathing treatment with bronchodilators. #Right carotid artery stenosis: On aspirin and statin #Pulmonary nodule: s/p biopsy as above. DVT prophylaxis: Lovenox Code status: full code Patient counseled extensively about different types of CODE STATUS including full code, DNR CCA and DNR CCA. Patient elects to be full code. Total [id number] time 16 minutes. Charges/Coding Visit Charges Inpatient E&M: 59509 Init Hosp L3 Procedures Hospitalists Procedures: 46019 Advncd Care Plan 30 Min
--- NOTE | 2025-04-07 13:43 | CASEMGMT ---
Care Management Face to Face with patient for initial transition planning/care coordination assessment in the ED. This insurance writer introduced self and role at [facility]. Patient alert and oriented. Patient willing to participate in assessment and is able to answer all questions appropriately. Care providers, pharmacy, and demographics verified. Admitting Diagnosis: shortness of breath Other diagnosis history: COPD, pulmonary nodules, hypotension PCP: Vimal Specialists: Hossein Patel Pharmacy: [facility] Insurance: Medicare Prescription Benefit: yes Living Will/HPOA: none LNOK: Sister Living Arrangements: Lives with sister in a one story with a basement. Patient reports to being independent with ADLS and IADLs Transportation: patient drives DME: walker HHC: none SNF/Rehab: none Community Resources: Behavioral Health History: none Patient goals: Patient wishes to discharge home, denies need for home health care at this time. Patient denies any further needs or concerns at this time. Disposition Plan: admission to acute; RN CM/SW to follow for discharge planning needs that may arise. Ariana Abreu, SURGICAL TECHNOLOGY INSTRUCTOR, SUGAR REFINER
[2025-04-07] MEDS: Ipratropium/Albuterol Sulfate 3 ML AMPUL.NEB INHALATION (15:51)
[2025-04-07] MEDS: Tamsulosin HCl 0.4 MG Capsule PO (15:53)
[2025-04-07] MEDS: Acetaminophen 325 MG Tablet 650 MG PO ×2 (15:53→22:01)
[2025-04-07] MEDS: oxyCODONE 5 MG Tablet PO (15:54)
--- NOTE | 2025-04-07 16:43 | CON.PCM.SX_ITS ---
Assessment & Plan Assessment/Plan (1) Iatrogenic pneumothorax: PLAN: Plan The patient is a 70-year-old male who sustained a left pneumothorax following a left lung biopsy performed earlier today. Chest tube was successfully placed by ER physician. His pneumothorax seems to be resolved. I have recommended that we keep him at suction at least overnight. Will get another chest x-ray in the morning. If his lung stays expanded, I would likely recommend placing him to waterseal provided that his airleak continues to remain resolved. I would recommend at least 24 hours of waterseal before removing chest tube. Will continue to follow along and advise accordingly. HPI Consult Data Date of Consult: 04/07/25 HPI Narrative Reason for Consultation: Iatrogenic pneumothorax HPI Narrative: PATRICK ANDRES, is a 70 M who underwent an elective left lung biopsy by radiology earlier today. Patient became acutely short of breath soon after the procedure. He was sent to the emergency room where he was seen evaluated by the ER staff. He was found to have a sizable left-sided pneumothorax. ER physician placed a small bore chest tube and successfully reexpanded the left lung. He was noted to have a positive airleak at that time. Patient was subsequently admitted to the medicine service and a surgical consult was obtained for chest tube management. Patient states that he is doing well currently. He denies any shortness of breath or chest pain. It sounds as though he had a previous left- sided pneumothorax about a year or so ago after a similar lung biopsy. Patient does have COPD. He does smoke. He states that he smokes about a pack and half cigarettes a day since he was about 15 or 16. He states that he is still currently smoking about a pack per day and sometimes 2 packs/day at times. [facility] Medical History BPH without urinary obstruction COPD (chronic obstructive pulmonary disease) Orthostatic hypotension Pulmonary nodules Hyponatremia Syncope and collapse Hypokalemia Chronic alcohol abuse Stenosis of right internal carotid artery Abnormal echocardiogram Mass of left lung Vision loss of left eye Smoker Hypertension Nicotine dependence, cigarettes, uncomplicated Home Medications Medication Instructions Recorded Last Taken Type tamsulosin 0.4 mg capsule 0.4 mg PO DAILY 12/29/23 History albuterol sulfate 90 mcg/actuation 1 puff inhalation Q 4H PRN 12/09/24 Unknown History aerosol inhaler hydroxyzine HCl 50 mg tablet 50 mg PO QHS 12/26/24 History aspirin 81 mg tablet,delayed 81 mg PO DAILY 04/07/25 0 04/06/25 History release (Adult Low Dose Aspirin) atorvastatin 40 mg tablet (Lipitor) 40 mg PO QHS 04/0704/06/25 History glycopyrrolate 9 mcg-formoterol 2 puff inhalation Q12H 04/07/25 04/06/25 History 4.8 mcg HFA aerosol inhaler (Bevespi Aerosphere) Allergy/AdvReac Type Severity Reaction Status Date / Time hydrochlorothiazide AdvReac hyponatremi Verified 04/07/25 10:46 a Family History (Reviewed 03/14/25 @ 08:50 by Raegan Ledezma BATCH OR CONTINUOUS STILL OPERATOR, BATCH OR CONTINUOUS STILL OPERATOR-C) Father Cancer Mother Diabetes Surgical History (Reviewed 03/14/25 @ 08:50 by Raegan Ledezma BATCH OR CONTINUOUS STILL OPERATOR, BATCH OR CONTINUOUS STILL OPERATOR-C) History of colonoscopy H/O vasectomy Social History household members: family housing: house current occupational status: retired Smoking Status: Current every day smoker tobacco type: cigarettes alcohol intake: current alcohol intake frequency: 3 or more drinks per day Alcohol type: beer details: up to 12 beers daily substance use type: does not use caffeine: Yes Physical Exam Narrative He is alert and oriented x 3. He is in no acute distress. Left chest tube placed in the upper chest anteriorly. It is connected to suction. I do not appreciate an air leak at the present time. Lab / Micro Data 04/07/25 11:21 04/07/25 11:21 Labs: Laboratory Results - last 24 hr 04/07/25 11:21: WBC 8.1, RBC 4.76, Hgb 14.5, Hct 41.7, MCV 87.6, MCH 30.5, MCHC 34.8, RDW Std Deviation 46.2 H, RDW Coeff of [place] 14.3, Plt Count 309, MPV 10.0, Immature Gran % (Auto) 0.500, Neut % (Auto) 66.2, Lymph % (Auto) 20.0, [place] % (Auto) 12.0 H, Eos % (Auto) 0.7, Baso % (Auto) 0.6, Absolute Neuts (auto) 5.4, Absolute Lymphs (auto) 1.62, Nucleated RBC % 0, Sodium 132 L, Potassium 4.5, Chloride 100, Carbon Dioxide 21.1, Anion Gap 11, BUN 8, Creatinine 0.62 L, Estim Creat Clear Calc 61.74, Est GFR (MDRD) Non-Af 103, BUN/Creatinine Ratio 12.7, Glucose 84, Calcium 8.9 Imaging Radiology Impression Chest X-Ray 04/07/25 12:31 IMPRESSION: Status post small caliber chest tube placement for treatment of a left pneumothorax. The left pneumothorax has resolved. Reading Location: [id number] Charges/Coding Visit Charges Inpatient E&M: 88403 Init Hosp L3
[2025-04-07] MEDS: hydrOXYzine PAM 25 MG Capsule 50 MG PO (22:01)
[2025-04-07] MEDS: Atorvastatin Calcium 40 MG Tablet PO (22:01)
[2025-04-08] VITALS (11 sets, daily range): BP systolic 97–107; BP diastolic 51–67; PULSE 58–74; RESP 16–17; TEMP 36.6–37; O2SAT 94–100
--- NOTE | 2025-04-08 05:52 | PCM.PN.SRG ---
Subjective Subjective Patient seen and evaluated on rounds this morning. He denies any new issues or problems overnight. He denies any chest pains or shortness of breath. He has not gone down for chest x-ray yet this morning Objective Data Objective Data Vital Signs: Vital Signs Temp Pulse Resp BP Pulse Ox O2 Del Method O2 Flow Rate 98.3 F 58 L 17 98/57 L 100 Nasal Cannula 2 04/08/25 02:04/08/25 02:04/08/25 02:04/08/25 02:04/08/25 02:04/08/25 02:04/08/25 02:25 Oxygen Flow Rate (L/min) 2 Oxygen Delivery Method Nasal Cannula Weight: 117 lb Body Mass Index (BMI) 20.0 Intake & Output: Intake and Output for Last 24 Hours 04/06/25 04/07/25 04/08/25 23:59 23:59 23:59 Intake Total 150 / 150 Output Total 250 / 250 Balance -100 / -100 Lab / Micro Data 04/07/25 11:21 04/07/25 11:21 Labs: Laboratory Results - last 24 hr 04/07/25 11:21: WBC 8.1, RBC 4.76, Hgb 14.5, Hct 41.7, MCV 87.6, MCH 30.5, MCHC 34.8, RDW Std Deviation 46.2 H, RDW Coeff of [place] 14.3, Plt Count 309, MPV 10.0, Immature Gran % (Auto) 0.500, Neut % (Auto) 66.2, Lymph % (Auto) 20.0, [place] % (Auto) 12.0 H, Eos % (Auto) 0.7, Baso % (Auto) 0.6, Absolute Neuts (auto) 5.4, Absolute Lymphs (auto) 1.62, Nucleated RBC % 0, Sodium 132 L, Potassium 4.5, Chloride 100, Carbon Dioxide 21.1, Anion Gap 11, BUN 8, Creatinine 0.62 L, Estim Creat Clear Calc 61.74, Est GFR (MDRD) Non-Af 103, BUN/Creatinine Ratio 12.7, Glucose 84, Calcium 8.9 Radiography Diagnostic Testing: Radiology Impression Chest X-Ray 04/07/25 12:31 IMPRESSION: Status post small caliber chest tube placement for treatment of a left pneumothorax. The left pneumothorax has resolved. [facility] Physical Exam Narrative He is alert and oriented x 3. He is in no acute distress. Chest tube appears to be in place. I did not appreciate an air leak on evaluation. Scant output from chest tube Assessment & Plan Assessment/Plan (1) Iatrogenic pneumothorax: PLAN: Plan Patient is a 70-year-old male with a left iatrogenic pneumothorax following a lung biopsy performed yesterday. Recommend continuing chest tube to -20 suction until chest x-ray is resulted today. If his pneumothorax remains resolved, would recommend switching his chest tube to waterseal and then repeating another chest x-ray in a.m. tomorrow. Will await chest x-ray results Charges/Coding Visit Charges Inpatient E&M: 23727 Subs Hosp L3
--- NOTE | 2025-04-08 06:25 | RAD_ITS ---
PROCEDURE: CHEST PA AND LATERAL 04/08/2025 REASON FOR EXAM: PTX TECHNIQUE: Frontal and lateral views of the chest. Frontal and 2 lateral views, 3 total images COMPARISON: 04/07/2025 FINDINGS: Left apical small caliber chest tube again seen not significantly changed. No pneumothorax definitely identified. Bilateral pulmonary emphysema and background of chronic interstitial changes with hyperinflation again noted. Left perihilar ill-defined opacity not significantly changed. No pleural effusion identified. RAD/Chest PA and Lateral IMPRESSION: Left apical small caliber chest tube again seen not significantly changed. No p neumothorax definitely identified. Reading Location: [id number]
[2025-04-08 06:40] LABS: Absolute Lymphocyte Count 1.94 X10^3/uL (0.83-4.51); Absolute Neutrophil Count 3.3 X10^3/uL (2.0-7.7); Basophil# 0.03 X10^3/uL; Basophil% 0.5 % (0-1); Eosinophils% 3.1 % (0-5); Hematocrit 40.2 % (40-54); Hemoglobin 13.9 g/dL (13.0-16.5); Lymphocyte # 1.94 X10^3/ul (0.83-4.51); Lymphocyte % 30.2 % (19-41); Mean Corp Hgb Conc 34.6 g/dL (32-36); Mean Corpuscular Volume 89.5 fL (80-94); Mean Platelet Vol. 10.2 fl (6.2-12.0); Monocyte# 0.92 X10^3/uL; Monocyte% 14.3 % (0-10); NRBC Flagged by Analyzer 0 % (0-5); Neutrophil # 3.32 X10^3/uL (2.7-7.7); Neutrophil % 51.6 % (47-70); Platelet Count 286 K/mm3 (150-450); RBC Distribution Width CV 14.4 % (11.6-14.6); RBC Distribution Width SD 47.3 fl (35.1-43.9); Red Blood Count 4.49 M/mm3 (4.6-6.2); White Blood Count 6.4 K/mm3 (4.4-11.0)
[2025-04-08 07:43] LABS: Anion Gap 10 (5-15); BUN 11 mg/dL (4-19); BUN/Creat Ratio 15.4 RATIO (10-20); Calcium,Total 8.9 mg/dL (7.6-11.0); Carbon Dioxide 23.3 mmol/L (21.0-32.0); Chloride 100 mmol/L (98-108); EST Glomerular Filtration Rate 99 (>60); Estimated Creatinine Clearance 64.49 ml/min (50-250); Glucose 82 mg/dL (70-99); Potassium 4.3 mmol/L (3.3-5.1); Sodium Level 133 mmol/L (133-145)
--- NOTE | 2025-04-08 07:51 | PCM.PN.HOSP ---
Reason for Visit Reason for Visit: Diagnoses Postprocedural pneumothorax (04/07/25) Hypoxemia (04/07/25) Objective Data Objective Data Vital Signs: Vital Signs Temp Pulse Resp BP Pulse Ox O2 Del Method O2 Flow Rate 98.3 F 60 17 98/57 L 100 Nasal Cannula 2 04/08/25 02:25 04/08/25 07:14 04/08/25 02:25 04/08/25 02:30 04/08/25 02:25 04/08/25 02:25 04/08/25 02:25 Oxygen Flow Rate (L/min) 2 Oxygen Delivery Method Nasal Cannula Weight: 117 lb Body Mass Index (BMI) 20.0 Intake & Output: Intake and Output for Last 24 Hours 04/06/25 04/07/25 04/08/25 23:59 23:59 23:59 Intake Total 150 / 150 200 / 200 Output Total 250 / 250 200 / 200 Balance -100 / -100 0 / 0 Lab / Micro Data 04/08/25 06:02 04/08/25 06:02 Labs: Laboratory Results - last 24 hr 04/07/25 11:21: WBC 8.1, RBC 4.76, Hgb 14.5, Hct 41.7, MCV 87.6, MCH 30.5, MCHC 34.8, RDW Std Deviation 46.2 H, RDW Coeff of [place] 14.3, Plt Count 309, MPV 10.0, Immature Gran % (Auto) 0.500, Neut % (Auto) 66.2, Lymph % (Auto) 20.0, [place] % (Auto) 12.0 H, Eos % (Auto) 0.7, Baso % (Auto) 0.6, Absolute Neuts (auto) 5.4, Absolute Lymphs (auto) 1.62, Nucleated RBC % 0, Sodium 132 L, Potassium 4.5, Chloride 100, Carbon Dioxide 21.1, Anion Gap 11, BUN 8, Creatinine 0.62 L, Estim Creat Clear Calc 61.74, Est GFR (MDRD) Non-Af 103, BUN/Creatinine Ratio 12.7, Glucose 84, Calcium 8.9 04/08/25 06:02: WBC 6.4, RBC 4.49 L, Hgb 13.9, Hct 40.2, MCV 89.5, MCH 31.0, MCHC 34.6, RDW Std Deviation 47.3 H, RDW Coeff of [place] 14.4, Plt Count 286, MPV 10.2, Immature Gran % (Auto) 0.300, Neut % (Auto) 51.6, Lymph % (Auto) 30.2, [place] % (Auto) 14.3 H, Eos % (Auto) 3.1, Baso % (Auto) 0.5, Absolute Neuts (auto) 3.3, Absolute Lymphs (auto) 1.94, Nucleated RBC % 0, Sodium 133, Potassium 4.3, Chloride 100, Carbon Dioxide 23.3, Anion Gap 10, BUN 11, Creatinine 0.70, Estim Creat Clear Calc 64.49, Est GFR (MDRD) Non-Af 99, BUN/Creatinine Ratio 15.4, Glucose 82, Calcium 8.9 Radiography Diagnostic Testing: Radiology Impression Chest X-Ray 04/07/25 12:31 IMPRESSION: Status post small caliber chest tube placement for treatment of a left pneumothorax. The left pneumothorax has resolved. Reading Location: [facility] Chest X-Ray 04/08/25 06:25 IMPRESSION: Left apical small caliber chest tube again seen not significantly changed. No pneumothorax definitely identified. Reading Location: [facility] Physical Exam Narrative Admitted with iatrogenic left pneumothorax after lung biopsy. Denies any chest pain. Mild chronic shortness of breath Physical exam General: Alert, Oriented x3, Cooperative. BMI 20.0 kg/m². Mild protein calorie malnutrition HEENT: Atraumatic, PERRLA, EOMI, Normocephalic. Oral: No Gingival or Mucosal Lesions/ Ulcerations Neck: Supple, No JVD, Negative Carotid Bruits Chest wall/Lungs: Air entry diminished in bilateral lungs. Left second ICS small bore chest tube. No airleak. Chest tube not connected with wall suction. Cardiovascular: Regular rate and rhythm, Normal S1,S2, No M/G/R Abdomen: Bowel Sounds Present, Soft, Non Tender, Non-Distended : No dysuria. No renal angle tenderness. No suprapubic tenderness. Extremities: No edema, Capillary Refill Less than 3 Seconds Skin: No rashes, No breakdown Musculoskeletal: No Tenderness to Palpation of Joints or Extremities Neurological: Cranial nerves II-XII grossly intact, DTR 2+/4. No acute focal neurological deficit. Psych/Mental Status: Normal Affect, Appropriate. Assessment & Plan Assessment/Plan (1) Iatrogenic pneumothorax: (2) Hypoxemia: PLAN: Plan #Left iatrogenic pneumothorax after lung biopsy Patient came in today to have scheduled left lung nodule biopsy. This procedure was complicated by left pneumothorax Had a small caliber chest tube inserted in the ED. Follow-up chest x-ray showed that the left pneumothorax had resolved. Admit to [facility]. Keep chest tube with oxygen for eval. Consult general surgery to help manage the chest tube. Breathing treatments and bronchodilators. Currently on 5 L of oxygen. Titrate oxygen to maintain saturation above 90%. 04/08: No air leak observed. No respiratory distress. Chest tube management as per surgeon #Hypoxia due to iatrogenic pneumothorax: Management as above. #BPH: on flomax #COPD: not in exacerbation. Breathing treatment with bronchodilators. #Right carotid artery stenosis: On aspirin and statin #Pulmonary nodule: s/p biopsy as above. DVT prophylaxis: Lovenox Code status: full code Patient counseled extensively about different types of CODE STATUS including full code, DNR CCA and DNR CCA. Patient elects to be full code. Total [id number] time 16 minutes. Charges/Coding Visit Charges Inpatient E&M: 57190 Subs Hosp L2
[2025-04-08] MEDS: Enoxaparin 40 MG/0.4 ML Syringe SC (08:41)
[2025-04-08] MEDS: Aspirin E.C. 81 MG Tablet PO (08:41)
--- NOTE | 2025-04-08 12:04 | CASEMGMT ---
RN CM noted pt on O2, does not have O2 at home. RIK CM into pt room, discussed possible need for oxygen at DC. Provided verbal list of DME providers, pt chose [facility] as provider of choice. Pt denies any additional DC needs at this time.
[2025-04-08] MEDS: Tamsulosin HCl 0.4 MG Capsule PO (16:23)
[2025-04-08] MEDS: oxyCODONE 5 MG Tablet PO (20:47)
[2025-04-08] MEDS: hydrOXYzine PAM 25 MG Capsule 50 MG PO (20:48)
[2025-04-08] MEDS: Atorvastatin Calcium 40 MG Tablet PO (20:48)
[2025-04-09] VITALS (7 sets, daily range): BP systolic 107–134; BP diastolic 61–75; PULSE 61–105; RESP 14–16; TEMP 36.6–37.2; O2SAT 94–97
--- NOTE | 2025-04-09 06:00 | RAD_ITS ---
PROCEDURE: CHEST PA AND LATERAL 04/09/2025 REASON FOR EXAM: PTX TECHNIQUE: Frontal and lateral views of the chest. 2 laterals and frontal, 3 total images COMPARISON: 04/08/2025 FINDINGS: See below RAD/Chest PA and Lateral IMPRESSION: Suspect possible sliver of left upper lateral pneumothorax. Small caliber left apical chest tube again noted. Background of chronic appearing interstitial changes with emphysema and hyperin flation again noted. Reading Location: [id number]
[2025-04-09] MEDS: Aspirin E.C. 81 MG Tablet PO (09:41)
[2025-04-09] MEDS: Enoxaparin 40 MG/0.4 ML Syringe SC (09:41)
--- NOTE | 2025-04-09 14:21 | PCM.PN.SRG ---
Subjective Subjective Patient seen and evaluated on rounds earlier today. Patient states that he is breathing well and denies any chest pains or discomfort. Chest x-ray this morning showed what appeared to be a sliver of residual apical pneumothorax. No obvious air leak on exam. Objective Data Objective Data Vital Signs: Vital Signs Temp Pulse Resp BP Pulse Ox O2 Del Method O2 Flow Rate 98.9 F 61 16 121/61 H 97 Room Air 2 04/09/25 09:51 04/09/25 09:51 04/09/25 09:51 04/09/25 09:51 04/09/25 09:51 04/09/25 09:51 04/08/25 14:25 Oxygen Flow Rate (L/min) 2 Oxygen Delivery Method Room Air Weight: 117 lb Body Mass Index (BMI) 20.0 Intake & Output: Intake and Output for Last 24 Hours 04/07/25 04/08/25 04/09/25 23:59 23:59 23:59 Intake Total 150 / 150 440 / 440 Output Total 250 / 250 425 / 725 1800 / 1800 Balance -100 / -100 15 / -285 -1800 / -1800 Lab / Micro Data 04/08/25 06:02 04/08/25 06:02 Radiography Diagnostic Testing: Radiology Impression Chest X-Ray 04/09/25 06:00 IMPRESSION: Suspect possible sliver of left upper lateral pneumothorax. Small caliber left apical chest tube again noted. Background of chronic appearing interstitial changes with emphysema and hyperinflation again noted. Reading Location: [facility] Physical Exam Narrative He is alert and oriented x 3. No acute distress. Left-sided anterior chest tube still in place. No airleak in Pleur-evac Assessment & Plan Assessment/Plan (1) Iatrogenic pneumothorax: PLAN: Plan Patient is a 70-year-old male with a left pneumothorax following left-sided lung biopsy. He had a similar pneumothorax a few years ago also following a lung biopsy. Chest x-ray this morning showed a sliver of residual pneumothorax while on waterseal. There is no airleak. I had a discussion with the patient regarding options of removing the chest tube today versus keeping the chest tube until tomorrow morning and repeating another chest x-ray. We have mutually decided to keep the chest tube in place today and get a chest x-ray very early tomorrow morning. If this appears stable or resolved, we will remove chest tube and obtain another chest x-ray midday tomorrow. Hopefully no residual pneumothorax will be present and we could possibly get him discharged to home sometime tomorrow afternoon. He is agreeable to this plan. Charges/Coding Visit Charges Inpatient E&M: 62554 Subs Hosp L2
--- NOTE | 2025-04-09 16:10 | PN.HOSP_ITS ---
Reason for Visit Reason for Visit: Diagnoses Postprocedural pneumothorax (04/07/25) Hypoxemia (04/07/25) Objective Data Objective Data Vital Signs: Vital Signs Temp Pulse Resp BP Pulse Ox O2 Del Method O2 Flow Rate 98.9 F 61 16 121/61 H 97 Room Air 2 04/09/25 09:51 04/09/25 09:51 04/09/25 09:51 04/09/25 09:51 04/09/25 09:51 04/09/25 09:51 04/08/25 14:25 Oxygen Flow Rate (L/min) 2 Oxygen Delivery Method Room Air Weight: 117 lb Body Mass Index (BMI) 20.0 Intake & Output: Intake and Output for Last 24 Hours 04/07/25 04/08/25 04/09/25 23:59 23:59 23:59 Intake Total 150 / 150 440 / 440 Output Total 250 / 250 425 / 725 1800 / 1800 Balance -100 / -100 15 / -285 -1800 / -1800 Lab / Micro Data 04/08/25 06:02 04/08/25 06:02 Radiography Diagnostic Testing: Radiology Impression Chest X-Ray 04/09/25 06:00 IMPRESSION: Suspect possible sliver of left upper lateral pneumothorax. Small caliber left apical chest tube again noted. Background of chronic appearing interstitial changes with emphysema and hyperinflation again noted. Reading Location: [facility] Physical Exam Narrative No acute symptoms. Repeat chest x-ray reviewed. Patient stated that he wants to go home Earlier, admitted with iatrogenic left pneumothorax after lung biopsy. Denies any chest pain. Mild chronic shortness of breath Physical exam General: Alert, Oriented x3, Cooperative. BMI 20.0 kg/m². Mild protein calorie malnutrition HEENT: Atraumatic, PERRLA, EOMI, Normocephalic. Oral: No Gingival or Mucosal Lesions/ Ulcerations Neck: Supple, No JVD, Negative Carotid Bruits Chest wall/Lungs: Air entry diminished in bilateral lungs. Left second ICS small bore chest tube. No airleak. Chest tube not connected with wall suction. Cardiovascular: Regular rate and rhythm, Normal S1,S2, No M/G/R Abdomen: Bowel Sounds Present, Soft, Non Tender, Non-Distended : No dysuria. No renal angle tenderness. No suprapubic tenderness. Extremities: No edema, Capillary Refill Less than 3 Seconds Skin: No rashes, No breakdown Musculoskeletal: No Tenderness to Palpation of Joints or Extremities Neurological: Cranial nerves II-XII grossly intact, DTR 2+/4. No acute focal neurological deficit. Psych/Mental Status: Normal Affect, Appropriate. Assessment & Plan Assessment/Plan (1) Iatrogenic pneumothorax: (2) Hypoxemia: PLAN: Plan #Left iatrogenic pneumothorax after lung biopsy * Patient came in today to have scheduled left lung nodule biopsy. This procedure was complicated by left pneumothorax * Had a small caliber chest tube inserted in the ED. * Follow-up chest x-ray showed that the left pneumothorax had resolved. Admit to [facility]. * Keep chest tube with oxygen for eval. Consult general surgery to help manage the chest tube. * Breathing treatments and bronchodilators. Currently on 5 L of oxygen. Titrate oxygen to maintain saturation above 90%. 04/08: No air leak observed. No respiratory distress. Chest tube management as per surgeon 04/09: No airleak. Repeat chest x-ray shows a small sliver of left upper lateral pneumothorax. Surgeons note reviewed. Patient agreed for keeping the chest tube until tomorrow morning and repeat another chest x-ray. If it remains stable then remove chest tube and obtain another chest x-ray tomorrow afternoon. Anticipating discharge tomorrow afternoon Small caliber left apical chest tube again noted. Background of chronic appearing interstitial changes with emphysema and hyperinflation again noted. Reading Location: [facility] #Hypoxia due to iatrogenic pneumothorax: Management as above. #BPH: on flomax #COPD: not in exacerbation. Breathing treatment with bronchodilators. #Right carotid artery stenosis: On aspirin and statin #Pulmonary nodule: s/p biopsy as above. DVT prophylaxis: Lovenox Code status: full code * Patient counseled extensively about different types of CODE STATUS including full code, DNR CCA and DNR CCA. * Patient elects to be full code. * Total [id number] time 16 minutes. Charges/Coding Visit Charges Inpatient E&M: 64797 Subs Hosp L2
[2025-04-09] MEDS: Tamsulosin HCl 0.4 MG Capsule PO (17:25)
[2025-04-09] MEDS: hydrOXYzine PAM 25 MG Capsule 50 MG PO (20:59)
[2025-04-09] MEDS: Atorvastatin Calcium 40 MG Tablet PO (21:00)
[2025-04-10] VITALS (7 sets, daily range): BP systolic 115–126; BP diastolic 47–67; PULSE 58–74; RESP 16–18; TEMP 36.4–36.6; O2SAT 94–97
--- NOTE | 2025-04-10 04:46 | RAD_ITS ---
PROCEDURE: CHEST PA AND LATERAL 04/10/2025 REASON FOR EXAM: PTX TECHNIQUE: Frontal and lateral views of the chest. COMPARISON: 04/09/2025. FINDINGS: Decreased minimal left apical pneumothorax. Unchanged left apical thoracostomy pleural drainage catheter. Unchanged emphysema. Unchanged blunting of the costophrenic angles, probably adhesions. Unremarkable cardiac silhouette. Normal mediastinum and tomasz. Normal visualized pulmonary arteries. Atheromatous plaques of the visualized aortic arch and descending thoracic aorta. Diffuse spondylosis of the visualized thoracic spine. Normal visualized ribs, clavicles. Degenerative joint disease. There is no demonstrated abnormality of the visualized soft tissue structures of the upper abdomen. RAD/Chest PA and Lateral IMPRESSION: Decreased minimal left apical pneumothorax. Unchanged left apical thoracostomy pleural drainage catheter. Unchanged emphysema. Unchanged blunting of the costophrenic angles, probably adhesions. [facility]
--- NOTE | 2025-04-10 08:11 | PN.HOSP_ITS ---
Reason for Visit Reason for Visit: Diagnoses Postprocedural pneumothorax (04/07/25) Hypoxemia (04/07/25) Subjective Subjective Feeling well. CT removed. Objective Data Objective Data Vital Signs: Vital Signs Temp Pulse Resp BP Pulse Ox O2 Del Method O2 Flow Rate 36.6 C 69 16 125/67 H 95 Room Air 2 04/10/25 02:50 04/10/25 07:46 04/10/25 02:50 04/10/25 02:50 04/10/25 02:50 04/10/25 07:41 04/08/25 14:25 Oxygen Flow Rate (L/min) 2 Oxygen Delivery Method Room Air Weight: 53.07 kg Body Mass Index (BMI) 20.0 Intake & Output: Intake and Output for Last 24 Hours 04/08/25 04/09/25 04/10/25 23:59 23:59 23:59 Intake Total 440 / 440 Output Total 425 / 725 2600 / 2900 600 / 600 Balance 15 / -285 -2600 / -2900 -600 / -600 Lab / Micro Data 04/08/25 06:02 04/08/25 06:02 Radiography Diagnostic Testing: Radiology Impression Chest X-Ray 04/10/25 04:46 IMPRESSION: Decreased minimal left apical pneumothorax. Unchanged left apical thoracostomy pleural drainage catheter. Unchanged emphysema. Unchanged blunting of the costophrenic angles, probably adhesions. Reading Location: [place] [address] Physical Exam Const alert and no apparent distress HEENT head/scalp atraumatic and moist oral mucous membranes Resp normal respiratory effort, no retractions, no use of accessory muscles and clear to auscultation bilaterally Cardio regular rate, regular rhythm, S1 normal heart sound and S2 normal heart sound Assessment & Plan Assessment/Plan (1) Iatrogenic pneumothorax: PLAN: Iatrogenic from lung biopsy Surgery following. CT removed today. Follow up chest xray, if WNL--dc home. PLAN: Plan Chronic conditions: * BPH: tamsulosin * COPD: not in exacerbation * PAD: right carotid stenosis. on ASA and statin. VTE prophylaxis: LMWH. Charges/Coding Visit Charges Inpatient E&M: 77218 Subs Hosp L2
[2025-04-10] MEDS: Enoxaparin 40 MG/0.4 ML Syringe SC (08:52)
[2025-04-10] MEDS: Aspirin E.C. 81 MG Tablet PO (08:52)
--- NOTE | 2025-04-10 10:06 | PCM.PN.SRG ---
Subjective Subjective Patient evaluated resting comfortably in bed. He denies any shortness of breath. His CXR this morning demonstrated minimal left apical pneumothorax. No air leak. Objective Data Objective Data Vital Signs: Vital Signs Temp Pulse Resp BP Pulse Ox O2 Del Method O2 Flow Rate 97.5 F L 74 18 115/63 97 Room Air 2 04/10/25 08:47 04/10/25 08:47 04/10/25 08:47 04/10/25 08:47 04/10/25 08:47 04/10/25 08:48 04/08/25 14:25 Oxygen Flow Rate (L/min) 2 Oxygen Delivery Method Room Air Weight: 117 lb Body Mass Index (BMI) 20.0 Intake & Output: Intake and Output for Last 24 Hours 04/08/25 04/09/25 04/10/25 23:59 23:59 23:59 Intake Total 440 / 440 Output Total 425 / 725 2600 / 2900 600 / 600 Balance 15 / -285 -2600 / -2900 -600 / -600 Lab / Micro Data 04/08/25 06:02 04/08/25 06:02 Radiography Diagnostic Testing: Radiology Impression Chest X-Ray 04/10/25 04:46 IMPRESSION: Decreased minimal left apical pneumothorax. Unchanged left apical thoracostomy pleural drainage catheter. Unchanged emphysema. Unchanged blunting of the costophrenic angles, probably adhesions. Reading Location: [place] [address] Physical Exam Resp normal respiratory effort and clear to auscultation bilaterally Resp Narrative: Left chest- tube intact. No air leak noted. Chest tube removed and vaseline gauze applied along with multiple 4 x 4's and secured with silk tape. Assessment & Plan Assessment/Plan (1) Iatrogenic pneumothorax: PLAN: Plan I am following this patient in conjunction with Dr. Sanders. He has independently evaluated this patient. CXR this AM demonstrated minimal left apical pneumothorax Chest tube removed this morning Repeat CXR at noon Hopeful discharge pending CXR today We will continue to monitor this patient Charges/Coding Visit Charges Inpatient E&M: 58221 Subs Hosp L2
--- NOTE | 2025-04-10 12:35 | RAD_ITS ---
EXAM: XR Chest, 2 Views CLINICAL INDICATION: LEFT PNEUMOTHORAX TECHNIQUE: Frontal and lateral views of the chest. COMPARISON: XR Chest dated 04/10/2025 FINDINGS: LUNGS AND PLEURAL SPACES: Is tissue and patchy airspace disease. Status post removal of left-sided chest tube. No pneumothorax. Hyperlucent lungs. Flattening of the diaphragm. HEART: Unremarkable. No cardiomegaly. MEDIASTINUM: Unremarkable. Normal mediastinal contour. BONES/JOINTS: Unremarkable. No acute fracture. RAD/Chest PA and Lateral IMPRESSION: 1. Is tissue and patchy airspace disease. Status post removal of left-sided c hest tube. No pneumothorax. 2. Suggestion of COPD. [facility]
--- NOTE | 2025-04-10 14:22 | DS.PCM_ITS ---
Providers Date of Admission: 04/07/25 Primary Care Physician: FRIEDA KEARNEY Consultations 04/07/25 15:01 Consult: General Surgery Routine Consulting Provider: Ray Sanders Reason for Consult: pneumothorax EMERGENT Consult: No MD Notified: Yes Date Notified: 04/07/25 Time Notified: 15:02 Method of Notification: Text Reason For Visit: IATROGENIC PNEUMOTHORAX Diagnosis Discharge Diagnosis (1) Iatrogenic pneumothorax: Status: Acute Code(s): J95.811 - Postprocedural pneumothorax Plan: Iatrogenic from lung biopsy Surgery following. CT removed today. Follow up chest xray no recurrent PTX. Ok from surgery to DC. Plan Chronic conditions: * BPH: tamsulosin * COPD: not in exacerbation * PAD: right carotid stenosis. on ASA and statin. VTE prophylaxis: LMWH. Medications at Discharge Home Medications tamsulosin 0.4 mg capsule 0.4 mg PO DAILY 12/29/23 albuterol sulfate 90 mcg/actuation aerosol inhaler 1 puff inhalation Q4H PRN 12/09/24 hydroxyzine HCl 50 mg tablet 50 mg PO QHS 12/26/24 aspirin 81 mg tablet,delayed release (Adult Low Dose Aspirin) 81 mg PO DAILY 04/07/25 atorvastatin 40 mg tablet (Lipitor) 40 mg PO QHS 04/07/25 glycopyrrolate 9 mcg-formoterol 4.8 mcg HFA aerosol inhaler (Bevespi Aerosphere) 2 puff inhalation Q12H 04/07/25 Weight / BMI Weight Weight: 53.07 kg Body Mass Index (BMI) 20.0 ABG / Lab / Microbiology Data 04/08/25 06:02 04/08/25 06:02 Radiography Diagnostic Testing: Radiology Impression Chest X-Ray 04/10/25 04:46 IMPRESSION: Decreased minimal left apical pneumothorax. Unchanged left apical thoracostomy pleural drainage catheter. Unchanged emphysema. Unchanged blunting of the costophrenic angles, probably adhesions. [facility] Chest X-Ray 04/10/25 12:35 IMPRESSION: 1. Is tissue and patchy airspace disease. Status post removal of left-sided chest tube. No pneumothorax. 2. Suggestion of COPD. Reading Location: [facility] D/C Instructions Discharge Diet: No restrictions DC O2, CPAP, BIPAP Needs Home O2 Discharge instructions: No Meaningful Use Info Meaningful Use Meaningful Use Diagnoses (Choose all that apply): None applicable Ischemic Stroke Statin Dosing Therapy Reference: STATIN DOSE THERAPY REFERENCE: * Patients > 75 years receive moderate or high dose statin therapy. * Patients 75 years or YOUNGER should receive HIGH intensity statin dose unless contraindicated. You will be required to document reason for non-treatment if statin daily dose does not meet guidelines. HIGH DOSE STATIN THERAPY DAILY Atorvastatin > than or = to 40 mg Rosuvastatin > than or = to 20 mg Amlodipine + Atorvastatin > than or = to 2.5/40 mg Ezetimibe + Simvastatin 10/80 mg Simvastatin 80mg Discharge Plan Admission Admit Date/Time: 04/07/25 13:24 Primary Reason for Your Visit: Left pneumothorax Attending Provider: Malcolm Hanson Primary Care Provider: JESUS CALLAHAN Consulting Providers: Ray Sanders; Michelle Do; Chuy Covarrubias Instructions Additional Instructions / Restrictions: Please follow-up with your PCP in 1 week for a follow-up chest x-ray Do not get bandage wet for 3 days May remove bandage on left chest in 3 days No follow-up with Dr. Sanders is needed Discharge Orders/Prescriptions Prescriptions: No Action tamsulosin 0.4 mg capsule 0.4 mg PO DAILY albuterol sulfate 90 mcg/actuation HFA aerosol inhaler 1 puff inhalation Q4H PRN hydroxyzine HCl 50 mg tablet 50 mg PO QHS atorvastatin [Lipitor] 40 mg tablet 40 mg PO QHS aspirin [Adult Low Dose Aspirin] 81 mg tablet,delayed release (DR/EC) 81 mg PO DAILY Bevespi Aerosphere 9-4.8 mcg HFA aerosol inhaler 2 puff inhalation Q12H Referrals / Follow Up: [facility] [Provider Group] - 04/14/25 9:45 am JESUS CALLAHAN NP-C [Primary Care Provider] - 04/17/25 Disposition Disposition (needs filled in before D/C Order can be placed): Home, Self Care Charges/Coding Visit Charges Inpatient E&M: 29858 Disch Hosp
--- NOTE | 2025-04-10 14:44 | PHA.DC.MR.R ---
Pharmacy MA Med Reconciliation Pharmacy Service has performed discharge medication reconciliation for this patient. The patient's discharge medication list was reviewed for discrepancies and discrepancies were resolved. Medications at Discharge Home Medications tamsulosin 0.4 mg capsule 0.4 mg PO DAILY 12/29/23 albuterol sulfate 90 mcg/actuation aerosol inhaler 1 puff inhalation Q4H PRN 12/09/24 hydroxyzine HCl 50 mg tablet 50 mg PO QHS 12/26/24 aspirin 81 mg tablet,delayed release (Adult Low Dose Aspirin) 81 mg PO DAILY 04/07/25 atorvastatin 40 mg tablet (Lipitor) 40 mg PO QHS 04/07/25 glycopyrrolate 9 mcg-formoterol 4.8 mcg HFA aerosol inhaler (Bevespi Aerosphere) 2 puff inhalation Q12H 04/07/25
== END 2025-04-10 15:15 | disposition home or self-care (01) | DRG 200 ==
LOC: ED 13:08 → MS3 14:05
PROVIDERS: Admitting Provider Student in an Organized Health Care Education/Training Program; Emergency Provider Emergency Medicine; PCP Nurse Practitioner Family
DX: J95.811 Postprocedural pneumothorax (principal); C34.32 Malignant neoplasm of lower lobe, left bronchus or lung; J43.2 Centrilobular emphysema; I10 Essential (primary) hypertension; I73.9 Peripheral vascular disease, unspecified; I65.21 Occlusion and stenosis of right carotid artery; F17.210 Nicotine dependence, cigarettes, uncomplicated; N40.0 Benign prostatic hyperplasia without lower urinary tract symptoms; Z79.51 Long term (current) use of inhaled steroids; Z79.82 Long term (current) use of aspirin; Z79.899 Other long term (current) drug therapy
CPT/HCPCS: 32551; 36415; 71046; 77012; 80048; 85025; 85610; 85730; 88172; 88305; 88313; 88341; 88342; 94640; 97162; 97166; 99156; 99283; 99406; A4216; C2613

== ENCOUNTER → 2025-04-25 | Outpatient (CLI) | payer MEDICARE, SELFPAY ==
--- NOTE | 2025-04-25 12:15 | PET_ITS ---
PROCEDURE: PET/CT TUMOR BASE -THIGH INIT 04/25/2025 REASON FOR EXAM: 70 y/o M with LUNG R91.8. Other nonspecific abnormal finding of lung field. 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 A preliminary CT study encompassing the Skull base, neck, chest, abdomen, pelvis, and proximal thighs was performed for purposes of attenuation correction and anatomic localization. The proximal thighs were also included. The patient's blood glucose level was 92 mg/dL (allowable range: 50-180 mg/dL). RADIOPHARMACEUTICAL: 14 0.89 mCi 18F-FDG (Fluorodeoxyglucose F18) IV was injected into he patient. Left antecubital fossa, injection site. RADIATION DOSE SUMMARY: Effective Dose: Approximately 7 mSv for a standard whole-body PET scan Organ Doses: Varies by organ, with higher doses typically to the bladder, liver, and brain COMPARISON: COMPARISON FROM CT, PET OR OTHER PERTINENT EXAMS: . FINDINGS: Physiologic uptake: There may be expected metabolic uptake within the brain, tongue and floor of the mouth and larynx/vocal cords, heart, tomasz (many normal individuals have hilar uptake in less than 3 nodes with mildly avid hilar nodes less than 2.7 SUV), liver and spleen, system, and GI tract and symmetric muscle uptake. FDG AVID AND NON-AVID LESIONS. Reported avid SUV values (g/mL*) are maximum SUV. NECK: There are no significant neck abnormalities. CHEST: Chest wall- There are no significant chest wall abnormalities. Axilla- There are no significant axillary abnormalities. Previous right supraclavicular uptake is no longer seen. Lung parenchyma- Left lung nodules at the level of the aortic arch measures 4.32 max SUV. Mediastinal blood pool activity is max 1.58 SUV. Left lower lobe posterior hypermetabolic mass measures 8.43 max SUV. Left hilar focus of FDG, superior segment, posteriorly; uptake measures 2.24 max SUV. The nodule measures 20.8 mm. Additional right hilar sharyn uptake. Mild subcarinal uptake. Superior mediastinum and neck base. Nonspecific thyroid uptake right lobe Mediastinum-left hilar uptake, multiple right hilar small foci uptake in left axillary sharyn uptake. Pleura- There are no significant pleural abnormalities. ABDOMEN: Stomach- No significant abnormalities. Liver- No significant abnormalities. Spleen- No significant abnormalities. Pancrease- No significant abnormalities. Kidneys- No significant abnormalities. Bowel- Normal bowel activity. Spine- No significant abnormalities. PELVIS: Bowel- Normal physiologic bowel activity is identified. Masses- There are no pelvic masses. LOWER EXTREMITIES: Bones- With the use of bone window settings, a focus in the intertrochanteric left hip partly sclerotic and partly lytic. There are no FDG avid lesions within the visualized portion of the axial skeleton. PET/PET/CT Tumor Base -Thigh Init IMPRESSION: FDG avid-left upper lobe at level of the aortic arch, mid zone. Nodule in left lower lobe, superior segment, posteriorly. Smaller, left hilar focus of uptake. Peripheral mid to upper zone focus of uptake. Right thyroid uptake. Overall the pattern and foci of uptake are similar to the prior study, but the lung nodules appear slightly increased in size. Combination lytic and sclerotic lesion in the intratrochanteric left hip appear s unchanged from prior exam. Please note the low-dose CT scan was performed to facilitate PET image reconstr uction and anatomic localization and does not replace a diagnostic CT. Any diagnostic CT requested and performed at the time of the PET will be reported separately. Reading [facility]
== END | disposition home or self-care (01) ==
PROVIDERS: PCP Nurse Practitioner Family; Referring Provider Nurse Practitioner Acute Care; Visit Provider Nurse Practitioner Acute Care
DX: C34.32 Malignant neoplasm of lower lobe, left bronchus or lung (principal)
CPT/HCPCS: 78815; A9552

== ENCOUNTER 2025-06-05 12:04 | Day surgery (SDC) | payer MEDICARE, SELFPAY ==
--- NOTE | 2025-06-02 11:43 | PAT.ANE_ITS ---
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 When Was Last Pacemaker Check QUESTION #4 FULL TEXT: You/Your Family Experience fever (hyperthermia) with Anesthesia Last Oral Intake Last Oral intake: Last Oral Intake NPO since Meds taken in AM with sips of water? 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 Has anyone observed you stop No 06/02/25 09:58 breathing during sleep? STOP Results Negative 06/02/25 09:58 QUESTION #5 FULL TEXT : Do you snore loudly (louder than talking or can be heard through closed doors)? 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 Specify any problems Hx of Preganancy in last 3 N/A 06/02/25 09:58 Months Nurse Filling Out Transfusion DSCHRIBER 06/02/25 09:58 & Questions: Date: 06/02/25 06/02/25 09:58 Time: 10:00 06/02/25 09:58 Patient unable to answer at this time (ie. 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 - brake repairer railroad: /Reproductive Hx- brake repairer railroad Hx Now No 06/02/25 09:58 Gestational Age (in weeks): EDC: Hx Hx Para Hx Section SAB No 06/02/25 09:58 Active Medications Active Medications: Current Medications Generic Name Dose Route Start Last Admin Trade Name Freq PRN Reason Stop Dose Admin Cefazolin Sodium 2 gm/ Sodium 110 mls @ 200 mls/hr 06/05/25 13:45 Chloride IV 06/05/25 14:17 INTRAOP ONE [facility] Medical History (Updated 06/02/25 @ 10:07 by Yulia Thomas) Wears glasses Wears dentures Cancer Shortness of breath on exertion Leg cramps Blackout Hypertension History of echocardiogram Mediastinal lymphadenopathy BPH without urinary obstruction COPD (chronic obstructive pulmonary disease) Stenosis of right internal carotid artery Chronic alcohol abuse Hypokalemia Orthostatic hypotension Syncope and collapse Hyponatremia Vision loss of left eye Smoker Mass of left lung Hypertension Pulmonary nodules Nicotine dependence, cigarettes, uncomplicated Home Medications ?Medication ?Instructions ?Recorded ?Last Taken ?Type tamsulosin 0.4 mg capsule 0.4 mg PO QHS 12/29/2304/06 History albuterol sulfate 90 mcg/actuation 1 puff inhalation Q 4H PRN 12/09/24 Unknown History aerosol inhaler hydroxyzine HCl 50 mg tablet 50 mg PO QHS 12/26/24 History aspirin 81 mg tablet,delayed 81 mg PO DAILY 04/07/25 0 04/06/25 History release (Adult Low Dose Aspirin) glycopyrrolate 9 mcg-formoterol 2 puff inhalation Q12H 04/07/25 04/06/25 History 4.8 mcg HFA aerosol inhaler (Bevespi Aerosphere) polymyxin B sulfate 10,000 1 drp ophthalmic (eye) DANDRE Y 04/19/25 Unknown History unit-trimethoprim 1 mg/mL eye drops Allergy/AdvReac Type Severity Reaction Status Date / Time hydrochlorothiazide AdvReac hyponatremi Verified 06/02/25 09:56 a Family History Father Cancer Mother Diabetes Surgical History History of lung biopsy History of colonoscopy H/O vasectomy Social History household members: family housing: house current occupational status: retired Smoking Status: Current every day smoker tobacco type: cigarettes alcohol intake: current alcohol intake frequency: 3 or more drinks per day Alcohol type: beer details: up to 12 beers daily substance use type: does not use caffeine: Yes Audit: Pertinent Findings Pertinent Findings EKG Perinent findings: November 06, 2024. Normal sinus rhythm. Septal infarct, age undetermined. T wave abnormality, consider anterior lateral ischemia Echo (EF%) pertinent findings: 11/07/2024. EF of 40%. This includes several akinetic and hypokinetic segments of the left ventricle. No aortic stenosis is noted. Recommendation Anesthesia Recommendation Anesthesia recommendation: F/U recommended (Patient has anterior lateral ischemia on his EKG. Follow-up echo showed definite akinetic and hypokinetic segments of his last left ventricle. Was there any follow-up testing done to determine the extent of his ischemia?)
--- NOTE | 2025-06-02 15:59 | PAT.ANESEVAL ---
Pre-Assessment Diagnosis/Proposed Procedure Planned Operative Procedure(s): INSERTION VASCULAR PORT LEFT Anesthesia History Anesthesia History - per diem rn: Anesthesia History - per diem rn Hx Hospitalization No 06/02/25 09:58 Any Problems With Anesthesia No 06/02/25 09:58 Cholinesterase deficiency No 06/02/25 09:58 You/Your Family Experience No 06/02/25 09:58 fever (hyperthermia) with Relationship Recent Exposure to Contagious Disease Does patient have nerve No 06/02/25 09:58 stimulator Patient instructed to have device shut off --Does patient have Pacemaker or ICD? When Was Last Pacemaker Check QUESTION #4 FULL TEXT: You/Your Family Experience fever (hyperthermia) with Anesthesia Last Oral Intake Last Oral intake: Last Oral Intake NPO since Meds taken in AM with sips of water? Meds patient instructed to take am of surgery PONV PONV - per diem rn: PONV - per diem rn Female No 06/02/25 09:58 HX of Motion Sickness No 06/02/25 09:58 HX of N/V After Surgery No 06/02/25 09:58 Non-Smoker No 06/02/25 09:58 Duration of Surgery greater No 06/02/25 09:58 than 60 minutes Number of Risk Factors PONV Score Height & Weight Height & Weight: Anesthesia: Height & Weight Height 5 ft 4 in 05/31/25 12:58 Respiratory Assessment Respiratory Assessment - per diem rn: Respiratory Tract Infection Hx - per diem rn Hx Respiratory Tract Infection No 06/02/25 09:58 STOP Sleep Apnea STOP Sleep Apnea - per diem rn: STOP Sleep Apnea - per diem rn Hx Hypertension Yes: NO MED FOR 5-6 MONTHS 06/02/25 09:58 Hx Sleep Apnea No 06/02/25 09:58 CPAP BIPAP Do you snore loudly (louder No 06/02/25 09:58 than talking or can be heard Do you often feel tired/ No 06/02/25 09:58 fatigued/ sleepy during daytime? Has anyone observed you stop No 06/02/25 09:58 breathing during sleep? STOP Results Negative 06/02/25 09:58 QUESTION #5 FULL TEXT : Do you snore loudly (louder than talking or can be heard through closed doors)? 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 Specify any problems Hx of Preganancy in last 3 N/A 06/02/25 09:58 Months Nurse Filling Out Transfusion DSCHRIBER 06/02/25 09:58 & Questions: Date: 06/02/25 06/02/25 09:58 Time: 10:00 06/02/25 09:58 Patient unable to answer at this time (ie. 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 - per diem rn: /Reproductive Hx- per diem rn Hx Now No 06/02/25 09:58 Gestational Age (in weeks): EDC: Hx Hx Para Hx Section SAB No 06/02/25 09:58 Active Medications Active Medications: Current Medications Generic Name Dose Route Start Last Admin Trade Name Freq PRN Reason Stop Dose Admin Cefazolin Sodium 2 gm/ Sodium 110 mls @ 200 mls/hr 06/05/25 13:45 Chloride IV 06/05/25 14:17 INTRAOP ONE [facility] Medical History (Updated 06/02/25 @ 10:07 by Yulia Thomas) Wears glasses Wears dentures Cancer Shortness of breath on exertion Leg cramps Blackout Hypertension History of echocardiogram Mediastinal lymphadenopathy BPH without urinary obstruction COPD (chronic obstructive pulmonary disease) Stenosis of right internal carotid artery Chronic alcohol abuse Hypokalemia Orthostatic hypotension Syncope and collapse Hyponatremia Vision loss of left eye Smoker Mass of left lung Hypertension Pulmonary nodules Nicotine dependence, cigarettes, uncomplicated Home Medications ?Medication ?Instructions ?Recorded ?Last Taken ?Type tamsulosin 0.4 mg capsule 0.4 mg PO QHS 12/29/23 04/06/25 History albuterol sulfate 90 mcg/actuation 1 puff inhalation Q4H PRN 12/09/24 Unknown History aerosol inhaler hydroxyzine HCl 50 mg tablet 50 mg PO QHS 12/26/24 04/06/25 History aspirin 81 mg tablet,delayed 81 mg PO DAILY 04/07/25 04/06/25 History release (Adult Low Dose Aspirin) glycopyrrolate 9 mcg-formoterol 2 puff inhalation Q12H 04/07/25 04/06/25 History 4.8 mcg HFA aerosol inhaler (Bevespi Aerosphere) polymyxin B sulfate 10,000 1 drp ophthalmic (eye) DAILY 04/19/25 Unknown History unit-trimethoprim 1 mg/mL eye drops Allergy/AdvReac Type Severity Reaction Status Date / Time hydrochlorothiazide AdvReac hyponatremi Verified 06/02/25 09:56 a Family History Father Cancer Mother Diabetes Surgical History History of lung biopsy History of colonoscopy H/O vasectomy Social History household members: family housing: house current occupational status: retired Smoking Status: Current every day smoker tobacco type: cigarettes alcohol intake: current alcohol intake frequency: 3 or more drinks per day Alcohol type: beer details: up to 12 beers daily substance use type: does not use caffeine: Yes Audit: Pertinent Findings HISTORY of Pertinent Findings History of Pertinent Findings: EKG Pertinent Findings EKG Perinent findings November 06, 2024. Normal 06/02/25 11:51 sinus rhythm. Septal infarct, age undetermined. T wave abnormality, consider anterior lateral ischemia Echo Pertinent Findings Echo (EF%) pertinent findings 11/07/2024. EF of 40%. 06/02/25 11:51 This includes several akinetic and hypokinetic segments of the left ventricle. No aortic stenosis is noted. Pertinent Findings EKG Perinent findings: January 08, 2024. Sinus bradycardia with short NV. Right axis deviation. Septal infarct, age undetermined. ST and T wave abnormality consider anterior lateral ischemia. Recommendation Anesthesia Recommendation Anesthesia recommendation: OPTIMIZED for anesthesia (Patient has anterior lateral ischemia on EKG November 06, 2024. This is unchanged from his previous EKG January 08, 2024. This is a low risk procedure in a stable patient. May proceed with anesthesia and surgery.)
[2025-06-05] VITALS (11 sets, daily range): BP systolic 97–143; BP diastolic 53–75; PULSE 62–78; RESP 14–16; TEMP 36.6–37.2; O2SAT 92–100; BMI 17.7
--- NOTE | 2025-06-05 12:37 | PCM.PRE.AN2 ---
ASA Classification* ASA Classification ASA Classification: 3 Assessment & Plan Anesthesia* Anesthesia Assessment Anesthesia Assessment: Discussed sedation and/or anesthesia options, risks, benefits, and alternatives with patient/parents/legal guardian/POA. Questions invited. The patient/parents/legal guardian/POA seems to understand and agrees to proceed with anesthesia plan. Reviewed the physical assessment, medical history, allergy history and patient home medications list prior to surgery/procedure/anesthetic and documented any changes. Performed airway and anesthesia risk assessments. Anesthesia Type Anesthesia Type: MAC Anesthesia Focused Assessment* Temperature: 98.9 F Pulse Rate: 78 Blood Pressure: 143/75 Respiratory Rate: 14 Pulse Ox: 100 Airway Assessment Mouth opens: >3 cm Mallampati Score: II Labs Anesthesia Preop lab: CBC WBC 7.4 K/mm3 (4.4-11.0) 05/01/25 10:39 05/01/25 RBC 4.76 M/mm3 (4.6-6.2) 05/01/25 10:39 05/01/25 Hgb 14.6 g/dL (13.0-16.5) 05/01/25 10:39 05/01/25 Hct 42.2 % (40-54) 05/01/25 10:39 05/01/25 Plt Count 336 K/mm3 (150-450) 05/01/25 10:39 05/01/25 CHEMISTRY Potassium 4.8 mmol/L (3.3-5.1) 05/01/25 10:39 05/01/25 Sodium 132 mmol/L (133-145) L 05/01/25 10:39 05/01/25 Magnesium 1.7 mg/dL (1.6-2.6) 11/07/24 02:38 11/07/24 Phosphorus 2.6 mg/dL (2.5-4.9) 11/07/24 02:38 11/07/24 BUN 7 mg/dL (4-19) 05/01/25 10:39 05/01/25 Creatinine 0.69 mg/dL (0.70-1.20) L 05/01/25 10:39 05/01/25 Glucose 91 mg/dL (70-99) 05/01/25 10:39 05/01/25 POC Glucose 97 mg/dL (74-106) 09/08/24 00:17 09/08/24 TSH 1.490 uIU/mL (0.358-3.740) 11/07/24 02:38 11/07/24 COAG PT 13.4 SECONDS (11.7-14.9) 04/07/25 08:45 04/07/25 Pre-Assessment Diagnosis/Proposed Procedure Planned Operative Procedure(s): INSERTION VASCULAR PORT LEFT Anesthesia History 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 When Was Last Pacemaker Check QUESTION #4 FULL TEXT: You/Your Family Experience fever (hyperthermia) with Anesthesia Last Oral Intake Last Oral intake: Last Oral Intake NPO since 08:00 06/05/25 12:28 Meds taken in AM with sips of Yes 06/05/25 12:28 water? Meds patient instructed to take am of surgery PONV PONV - community health advocate: PONV - community health advocate Female No 06/02/25 09:58 HX of Motion Sickness No 06/02/25 09:58 HX of N/V After Surgery No 06/02/25 09:58 Non-Smoker No 06/02/25 09:58 Duration of Surgery greater No 06/02/25 09:58 than 60 minutes Number of Risk Factors PONV Score Height & Weight Height & Weight: Anesthesia: Height & Weight Height 5 ft 4 in 06/05/25 12:28 Weight: 47 kg 06/05/25 12:28 Body Mass Index (BMI) 17.7 06/05/25 12:28 Respiratory Assessment Respiratory Assessment - community health advocate: Respiratory Tract Infection Hx - community health advocate Hx Respiratory Tract Infection No 06/02/25 09:58 STOP Sleep Apnea STOP Sleep Apnea - community health advocate: STOP Sleep Apnea - community health advocate Hx Hypertension Yes: NO MED FOR 5-6 MONTHS 06/02/25 09:58 Hx Sleep Apnea No 06/02/25 09:58 CPAP BIPAP Do you snore loudly (louder No 06/02/25 09:58 than talking or can be heard Do you often feel tired/ No 06/02/25 09:58 fatigued/ sleepy during daytime? Has anyone observed you stop No 06/02/25 09:58 breathing during sleep? STOP Results Negative 06/02/25 09:58 QUESTION #5 FULL TEXT : Do you snore loudly (louder than talking or can be heard through closed doors)? 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 Specify any problems Hx of Preganancy in last 3 N/A 06/02/25 09:58 Months Nurse Filling Out Transfusion DSCHRIBER 06/02/25 09:58 & Questions: Date: 06/02/25 06/02/25 09:58 Time: 10:00 06/02/25 09:58 Patient unable to answer at this time (ie. 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 - community health advocate: /Reproductive Hx- community health advocate Hx Now No 06/02/25 09:58 Gestational Age (in weeks): EDC: Hx Hx Para Hx Section SAB No 06/02/25 09:58 Active Medications Active Medications: Current Medications Generic Name Dose Route Start Last Admin Trade Name Freq PRN Reason Stop Dose Admin Cefazolin Sodium 2 gm/ Sodium 110 mls @ 200 mls/hr 06/05/25 13:45 Chloride IV 06/05/25 14:17 INTRAOP ONE Lactated Ringer's 1,000 mls @ 15 mls/hr 06/05/25 12:15 IV .Q48H JOSE R PFSH Medical History Wears glasses Wears dentures Cancer Shortness of breath on exertion Leg cramps Blackout Hypertension History of echocardiogram Mediastinal lymphadenopathy BPH without urinary obstruction COPD (chronic obstructive pulmonary disease) Stenosis of right internal carotid artery Chronic alcohol abuse Hypokalemia Orthostatic hypotension Syncope and collapse Hyponatremia Vision loss of left eye Smoker Mass of left lung Hypertension Pulmonary nodules Nicotine dependence, cigarettes, uncomplicated Home Medications ?Medication ?Instructions ?Recorded ?Last Taken ?Type tamsulosin 0.4 mg capsule 0.4 mg PO QHS 12/29/23 06/05/25 History albuterol sulfate 90 mcg/actuation 1 puff inhalation Q4H PRN 12/09/24 06/04/25 History aerosol inhaler hydroxyzine HCl 50 mg tablet 50 mg PO QHS 12/26/24 06/04/25 History aspirin 81 mg tablet,delayed 81 mg PO DAILY 04/07/25 06/05/25 History release (Adult Low Dose Aspirin) glycopyrrolate 9 mcg-formoterol 2 puff inhalation Q12H 04/07/25 06/04/25 History 4.8 mcg HFA aerosol inhaler (Bevespi Aerosphere) polymyxin B sulfate 10,000 1 drp ophthalmic (eye) DAILY 04/19/25 06/04/25 History unit-trimethoprim 1 mg/mL eye drops Allergy/AdvReac Type Severity Reaction Status Date / Time hydrochlorothiazide AdvReac hyponatremi Verified 06/05/25 12:27 a Family History Father Cancer Mother Diabetes Surgical History History of lung biopsy History of colonoscopy H/O vasectomy Social History household members: family housing: house current occupational status: retired Smoking Status: Current every day smoker tobacco type: cigarettes alcohol intake: current alcohol intake frequency: 3 or more drinks per day Alcohol type: beer details: up to 12 beers daily substance use type: does not use caffeine: Yes Review of Systems (Anesthesia) ROS Narrative System reviewed and no additional complaints, except as documented.
[2025-06-05] MEDS: Lactated Ringers 1,000 ML 15 ML IV (12:42)
--- NOTE | 2025-06-05 13:38 | HP.PCM_ITS ---
HPI - General General Date of Service: 06/05/25 Chief Complaint: Mediport placement HPI Narrative PATRICK ANDRES, is a 70 M who presents for elective Mediport placement for chemotherapy as treatment for lung cancer [facility] Medical History Wears glasses Wears dentures Cancer Shortness of breath on exertion Leg cramps Blackout Hypertension History of echocardiogram Mediastinal lymphadenopathy BPH without urinary obstruction COPD (chronic obstructive pulmonary disease) Stenosis of right internal carotid artery Chronic alcohol abuse Hypokalemia Orthostatic hypotension Syncope and collapse Hyponatremia Vision loss of left eye Smoker Mass of left lung Hypertension Pulmonary nodules Nicotine dependence, cigarettes, uncomplicated Home Medications ?Medication ?Instructions ?Recorded ?Last Taken ?Type tamsulosin 0.4 mg capsule 0.4 mg PO QHS 12/29/2306/05 History albuterol sulfate 90 mcg/actuation 1 puff inhalation Q 4H PRN 12/09/24 06/04/25 History aerosol inhaler hydroxyzine HCl 50 mg tablet 50 mg PO QHS 12/26/24 History aspirin 81 mg tablet,delayed 81 mg PO DAILY 04/07/25 0 06/05/25 History release (Adult Low Dose Aspirin) glycopyrrolate 9 mcg-formoterol 2 puff inhalation Q12H 04/07/25 06/04/25 History 4.8 mcg HFA aerosol inhaler (Bevespi Aerosphere) polymyxin B sulfate 10,000 1 drp ophthalmic (eye) DANDRE Y 04/19/25 06/04/25 History unit-trimethoprim 1 mg/mL eye drops Allergy/AdvReac Type Severity Reaction Status Date / Time hydrochlorothiazide AdvReac hyponatremi Verified 06/05/25 12:27 a Family History Father Cancer Mother Diabetes Surgical History History of lung biopsy History of colonoscopy H/O vasectomy Social History household members: family housing: house current occupational status: retired Smoking Status: Current every day smoker tobacco type: cigarettes alcohol intake: current alcohol intake frequency: 3 or more drinks per day Alcohol type: beer details: up to 12 beers daily substance use type: does not use caffeine: Yes Vital Signs Vital Signs Vital Signs: 06/05/25 12:28 06/05/25 12:28 06/05/25 12:38 Temperature 98.9 F 98.9 F Temperature Source Temporal Pulse Rate 78 78 Respiratory Rate 14 14 Respiratory Pattern Normal Blood Pressure 143/75 H 143/75 H Blood Pressure Mean 97 Blood Pressure Source Monitor Blood Pressure Position Semi-Fowlers Blood Pressure Location Left Arm Pulse Ox 100 100 Oxygen Delivery Method Room Air Weight Weight: 103 lb 9.876 oz Body Mass Index (BMI) 17.7 Physical Exam Const alert, oriented x3 and no apparent distress Assessment & Plan Assessment/Plan (1) 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
[2025-06-05] MEDS: Lidocaine 1% /Epi 1:100 (50ml) 50 ML VIAL (14:41)
--- NOTE | 2025-06-05 14:57 | EX.PCM.DISCH ---
Discharge Instructions Diet Discharge Diet: Light diet - advance as tolerated Activity Discharge Activity: Return to Normal Activity May shower in (days): 1 Ice area for (Minutes): 30 Dressing / Incision Call your doctor if your incision/area has: Continuous Slow Oozing, Sudden Increased Bleeding, Increased Pain/ Swelling, Increased Redness, Foul Smelling Discharge and Swelling at the incision site Call your doctor if you observe: Fever of 101 or Higher Remove Dressing in: 3 days Cleanse incision/area with: Soap & Water Follow Up Care Please Follow Up With: Ray Sanders MD When: as needed Test Results: Test results from this visit will be discussed in further detail at your follow-up appointment, if applicable. Discharge Plan Admission Primary Reason for Your Visit: Mediport insertion Attending Provider: Ray Sanders Primary Care Provider: JESUS CALLAHAN Instructions Print Language: Ghanaian Discharge Orders/Prescriptions Prescriptions: New oxycodone 5 mg tablet 5 mg PO Q8H PRN (Reason: pain) 3 Days Qty: 7 0RF Continued tamsulosin 0.4 mg capsule 0.4 mg PO QHS albuterol sulfate 90 mcg/actuation HFA aerosol inhaler 1 puff inhalation Q4H PRN hydroxyzine HCl 50 mg tablet 50 mg PO QHS polymyxin B sulf-trimethoprim 10,000 unit- 1 mg/mL drops 1 drp ophthalmic (eye) DAILY aspirin [Adult Low Dose Aspirin] 81 mg tablet,delayed release (DR/EC) 81 mg PO DAILY Bevespi Aerosphere 9-4.8 mcg HFA aerosol inhaler 2 puff inhalation Q12H Referrals / Follow Up: JESUS CALLAHAN, MARKETING DATA SPECIALIST-C [Primary Care Provider] - Disposition Disposition (needs filled in before D/C Order can be placed): Home, Self Care
--- NOTE | 2025-06-05 14:57 | PCM.POST.ANE ---
Anesthesia: Postop Eval I Current Vital Signs Temperature: 97.8 F Pulse Rate: 77 Blood Pressure: 109/73 Respiratory Rate: 16 Pulse Ox: 97 Oxygen Delivery Method: Room Air Assessment Airway patent: Yes Spontaneous unlabored respirations: Yes Mental status: Awake and Calm nausea: No Vomiting: No Anesthesia Complication: No Fluid Hydration Crystalloid volume administer (ml): 500 Total IV fluid infused: 500 Progress Note Anesthesia document: Postop Eval 1 completed: Yes
--- NOTE | 2025-06-05 15:01 | RAD_ITS ---
PROCEDURE: CXR FOR LINE PLACEMENT 06/05/2025 REASON FOR EXAM: NEW PORT PLACEMENT TECHNIQUE: AP portable upright chest COMPARISON: Chest x-ray 04/10/2025. RAD/CXR for Line Placement IMPRESSION: Chronic lung changes and hyperinflation are again seen, but no new or worsened pneumonic process is identified. No pleural effusion or pneumothorax is seen. A left subclavian central venous catheter with port is seen, tip projecting of the SVC. The cardiomediastinal silhouette is stable, without evidence of cardiomegaly. No interval osseous change is seen. Reading Location: [place] [id number]
--- NOTE | 2025-06-05 15:02 | OP.PCM_ITS ---
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: Procedures Cardiovascular CF Procedures [id number]: [id number] Insert tunneled cv cath Operative Report (Standard) Operative Information Date of Procedure: 06/05/25 Pre-Operative Diagnosis: Lung cancer Post-Operative Diagnosis: Same Surgery/Procedure Performed: Left subclavian Mediport placement procedure clinical pharmacy specialist: No Type of Anesthesia: Local and MAC RN Documented Start/Stop Times: Operation Date: 06/05/25 13:45 Case Time Into Pre-Op 06/05/25 12:10 Out of Pre-Op 06/05/25 14:05 Anesthesia Start 06/05/25 14:08 Into Room 06/05/25 14:08 Procedure Start 06/05/25 14:24 Procedure End 06/05/25 14:49 Anesthesia End 06/05/25 14:53 Out of Room 06/05/25 14:53 Procedure Start Time: 14:24 Procedure Stop Time: 14:49 Select all DRAINS/GRAFTS/IMPLANTS that apply: Prosthetic device Prosthetic device details: PowerPort injectable port Special Medications: 2 g Ancef IV Estimated Blood Loss: 5 mL Specimen collected: No Description of surgery: The patient is a 70-year-old male who is recently seen through the office with lung cancer in need of a Mediport placement. I did seen him within the past year on the hospital side for pneumothorax following a lung biopsy. I offered him a left subclavian Mediport placement with C arm. We discussed the details of the planned procedure including the risks benefits and alternatives. He wished to proceed. He was brought to the operating room today following informed consent. Preoperative antibiotics were given and a timeout was performed. The patient was placed supine on the operative table with arms comfortably tucked at his side. An axillary roll was placed between his shoulder blades. The left upper chest region was then prepped and draped in the usual sterile manner. Local anesthetic was infiltrated into the left periclavicular area. Next using the supplied needle and syringe, I was able to gain access to the left subclavian vein on the first pass. Blood return was a dark red venous appearing blood return. Guidewire was threaded through the aperture of the needle and secured to the drapes using a hemostat. C arm was then used to confirm good positioning of the guidewire and the right side of the heart. Next a marking pen was then used to indicate the site of the planned port pocket incision. Local anesthetic was then injected. #15 blade was then used to make the skin incision as well as a smaller incision at the entry point of the guidewire. Bovie electrocautery was then used to dissect down through subcutaneous tissues down to the chest wall once at this level a subcutaneous pocket was then created. The tubing was then attached to the tunneling device and the tubing was tunneled into the larger incision and up and out through the smaller incision. Tubing was then trimmed to 22 cm and attached to the port itself. The port hub was then affixed to the chest wall using Prolene suture x 2. The dilator and tear-away sheath w ere then threaded over the guidewire and confirmed with x-ray. The dilator was then removed thus leaving the sheath in place. The free end of the tubing was then threaded down the sheath and the sheath was extracted. The port was then tested with heparin flush. It rod and flushed easily. C-arm was again used to confirm good position of the port tubing tip. Heparin flush was then injected into the port. Incision was then closed using 3-0 Vicryl and 4-0 Vicryl. Skin glue was applied as dressing along with sterile 2 by twos and a large OpSite. He was then awakened from anesthesia and taken recovery in good condition. Surgical Findings: See operative note Complications Complications: No
--- NOTE | 2025-06-05 16:25 | POSTOPAN2_ITS ---
Anesthesia Postop Eval I Sum Postop Eval Completion status Anesthesia document: Postop Eval 1 completed: Yes Anesthesia Postop Eval I Summary Anesthesia Postop Eval I Summary: Anesthesia Postop Eval I: Assessment Summary Airway patent Yes 06/05/25 14:58 [email or web address] Spontaneous unlabored Yes 06/05/25 14:58 [email or web address] respirations Mental status Awake,Calm 06/05/25 14:58 [email or web address] nausea No 06/05/25 14:58 [email or web address] Vomiting No 06/05/25 14:58 [email or web address] Anesthesia Postop Eval I: Fluid Summary Crystalloid volume administer 500 06/05/25 14:58 [email or web address] (ml) Colloids volume administered ( ml) Blood Product volume administered (ml) Total IV fluid infused 500 06/05/25 14:58 [email or web address] Anesthesia Postop Eval I: Summary Notes Anesthesia Complication No 06/05/25 14:58 [email or web address] Anesthesia Complication Comment: Post-operative progress note Anesthesia: Postop Eval II Evaluation Mental status: Awake Pain Level: 0 nausea: No Vomiting: No
--- NOTE | 2025-06-05 16:25 | PCM.POSTANE2 ---
Anesthesia Postop Eval I Sum Postop Eval Completion status Anesthesia document: Postop Eval 1 completed: Yes Anesthesia Postop Eval I Summary Anesthesia Postop Eval I Summary: Anesthesia Postop Eval I: Assessment Summary Airway patent Yes 06/05/25 14:58 [email or web address] Spontaneous unlabored Yes 06/05/25 14:58 [email or web address] respirations Mental status Awake,Calm 06/05/25 14:58 [email or web address] nausea No 06/05/25 14:58 [email or web address] Vomiting No 06/05/25 14:58 [email or web address] Anesthesia Postop Eval I: Fluid Summary Crystalloid volume administer 500 06/05/25 14:58 [email or web address] (ml) Colloids volume administered ( ml) Blood Product volume administered (ml) Total IV fluid infused 500 06/05/25 14:58 [email or web address] Anesthesia Postop Eval I: Summary Notes Anesthesia Complication No 06/05/25 14:58 [email or web address] Anesthesia Complication Comment: Post-operative progress note Anesthesia: Postop Eval II Evaluation Mental status: Awake Pain Level: 0 nausea: No Vomiting: No
== END 2025-06-05 16:45 | disposition home or self-care (01) ==
LOC: SDC 12:05 → AC 12:06
PROVIDERS: PCP Nurse Practitioner Family; Referring Provider Surgery; Visit Provider Surgery
PROC: (CPT 36561; principal; 2025-06-05 13:30)
DX: Z45.2 Encounter for adjustment and management of vascular access device (principal); C34.32 Malignant neoplasm of lower lobe, left bronchus or lung; J44.9 Chronic obstructive pulmonary disease, unspecified; I10 Essential (primary) hypertension; F17.210 Nicotine dependence, cigarettes, uncomplicated; Z79.51 Long term (current) use of inhaled steroids; Z79.82 Long term (current) use of aspirin; Z79.899 Other long term (current) drug therapy
CPT/HCPCS: 36561; 00532; 71045; 77001; A4216; C1788

== ENCOUNTER 2025-07-30 16:02 | Inpatient (IN) | payer MEDICARE, SELFPAY ==
[2025-07-30] VITALS (14 sets, daily range): BP systolic 75–124; BP diastolic 55–102; PULSE 90–112; RESP 14–23; TEMP 36.6–37; O2SAT 92–100; BMI 18.7; BMI 20.2
--- NOTE | 2025-07-30 16:55 | EKG12_ITS ---
Test Reason : HEADACHE Blood Pressure : */* mmHG Vent. Rate : 149 BPM Atrial Rate : * BPM P-R Int : * ms QRS Dur : 86 ms QT Int : 312 ms P-R-T Axes : * 83 98 degrees QTcB Int : 491 ms Critical Test Result: High HR , STEMI Atrial fibrillation with rapid ventricular response Anteroseptal infarct Confirmed by SANJU STONE, AYLEEN ([id number]), brands editor BROOKE ESPARZA ([id number]) on 07/31/2025 7:58:36 AM Referred By: Nahomy Good Confirmed By: AYLEEN BILLS MD
--- OUTSIDE RECORDS SUMMARY | 2025-07-30 17:02 | XMS RPT_ITS | CCD ---
Author Organization [facility] Care Team Providers Care Inserter Promotional Item Name Role Phone [place] TARIFF PUBLISHING AGENT - ENGROSSER, WENDY Galan Primary Care Phys ician [place] TARIFF PUBLISHING AGENT-ROSA, JESUS Primary Care Physician Care Physician, No Primary Primary Care Provider Unavailable Care Physician, No Primary Referring Provider Un available Dr. Pierre Catalan Attending Provider FRIEDA CALLAHAN JESUS Primary Care Provider Dr. Pierre Catalan Referring Provider [phone] Pierre Catalan Other Provider FRIEDA Chavez Attending Provider Dr. James Lewis Emergency Provider Dr. Emma Wilson Attending Provider Dr. Emma Wilson Admit Provider Dr. Emma Wilson Other Provider Dr. Caden Lockwood Attending Provider Dr. Caden Lockwood Other Provider Dr. Emma Wilson Referring Provider Dr. Caden Lockwood Referring Provider Care Physician, No Primary Primary Care Provider Unavailable Care Physician, No Primary Referring Provider Un available Dr. Pierre Catalan Attending Provider FRIEDA CALLAHAN JESUS Primary Care Provider [phone] Dr. Pierre Catalan Referring Provider [phone] Dr. Pierre Catalan Other Provider Kathy, MASTER DATA ANALYST-C Sharyn Mercedes Attending Provider Dr. James Lewis Emergency Provider Dr. Emma Wilson Attending Provider Dr. Emma Wilson Admit Provider Dr. Emma Wilson Referring Provider Dr. Emma Wilson Other Provider Dr. Caden Lockwood Attending Provider Dr. Caden Lockwood Other Provider Dr. Caden Lockwood Referring Provider Dr. Justin Farah Attending Provider [place] TARIFF PUBLISHING AGENT-ENGROSSER, JESUS Attending Unavai lable [place] TARIFF PUBLISHING AGENT-ENGROSSER, JESUS Primary Care Unavai lable [place] TARIFF PUBLISHING AGENT-ENGROSSER, JESUS Attending Unavai lable [place] TARIFF PUBLISHING AGENT-ENGROSSER, JESUS Primary Care Unavai lable [place] TARIFF PUBLISHING AGENT-ENGROSSER, JESUS Attending Unavai lable [place] TARIFF PUBLISHING AGENT-ENGROSSER, JESUS Primary Care Unavai lable [place] TARIFF PUBLISHING AGENT-ENGROSSER, JESUS Attending Unavai lable [place] TARIFF PUBLISHING AGENT-ENGROSSER, JESUS Primary Care Unavai lable [place] MASTER DATA ANALYST-C, JESUS Primary Care Provider Dr. Malcolm Christy DO Emergency Provider [phone] Dr. Goldy Patino DO Admit Provider Unavail able de Dr. Goldy Law DO Referring Provider Unav ailable de Dr. Goldy Law DO Other Provider Unavail able Dr. Janak Ulloa MD Attending Provider Dr. Janak Ulloa MD Other Provider Dr. Pierre Catalan DO Attending Provider Dr. Malcolm Torres MD Attending Provider Dr. Freddy Mayen MD Attending Provider [phone] [place] MASTER DATA ANALYST-C, JESUS Referring Provider Radha PA, Marjorie Attending Provider [phone] Radha PA, Marjorie Referring Provider Ledezma MASTER DATA ANALYST-C, Raegan Attending Provider Ledezma MASTER DATA ANALYST-C, Raegan Referring Provider [place] MASTER DATA ANALYST-C, JESUS Primary Care Provider Radha PA, Marjorie Attending Provider [phone] Radha PA, Marjorie Referring Provider Melissa STONE, Dr. Fowler Attending Provider [place] MASTER DATA ANALYST-C, JESUS Referring Provider Brisa MASTER DATA ANALYST-C, Raegan Other Provider Hossein GUY, Dr. Jay Attending Provider Carrington STONE, Dr. Aviles Emergency Provider [place] MASTER DATA ANALYST-C, JESUS Primary Care Provider Melissa STONE, Dr. Fowler Attending Provider Carrington STONE, Dr. Aviles Emergency Provider Hi STONE, Dr. Michelle Dunn Admit Provider [phone] Hi STONE, Dr. Michelle Dunn Other Provider Marilyn STONE, Dr. Ray Mercedes Other Provider [phone] Malcolm Hanson DO Attending Provider Satish STONE, Dr. Vera Other Provider Marilyn STONE, Dr. Ray Mercedes Attending Provider Satish STONE, Dr. Vera Attending Provider Dr. Malcolm Hanson DO Other Provider Cesar PA-C, Padma Attending Provider [place] TARIFF PUBLISHING AGENT-ENGROSSER, JESUS Attending Unalisai priyanka CARMENETLER TARIFF PUBLISHING AGENT-ENGROSSER, JESUS Primary Care Unavai lable [place] MASTER DATA ANALYST-C, JESUS Primary Care Provider [place] MASTER DATA ANALYST-C, JESUS Referring Provider Dr. Malcolm Hanson DO Referring Provider Danitza STONE, Dr. Hensley Attending Provider [place] MASTER DATA ANALYST-C, JESUS Primary Care Provider [place] MASTER DATA ANALYST-C, JESUS Referring Provider Dr. Ayden Bosch MD Referring Provider [place] MASTER DATA ANALYST-C, JESUS Primary Care Provider Ledezma MASTER DATA ANALYST-C, Raegan Attending Provider [place] MASTER DATA ANALYST-C, JESUS Referring Provider Dr. Ray Sanders MD Referring Provider Danitza STONE, Dr. Hensley Referring Provider Jenae MASTER DATA ANALYST-C, Camille Attending Provider [place] MASTER DATA ANALYST-C, JESUS Primary Care Provider Ledezma MASTER DATA ANALYST-C, Raegan Attending Provider Ledezma MASTER DATA ANALYST-C, Raegna Referring Provider [place] MASTER DATA ANALYST-C, JESUS Primary Care Provider Ledezma MASTER DATA ANALYST-C, Raegan Attending Provider Ledezma MASTER DATA ANALYST-C, Raegan Referring Provider [place] MASTER DATA ANALYST-C, JESUS Primary Care Provider Ledezma MASTER DATA ANALYST-C, Raegan Attending Provider [place] MASTER DATA ANALYST-C, JESUS Referring Provider [place] MASTER DATA ANALYST-C, JESUS Primary Care Physician [phone] Ledezam MASTER DATA ANALYST-C, Raegan Attending Physician Carrington STONE, Dr. Aviles Emergency Department Phys ician Hi STONE, Dr. Michelle Dunn Admitting Physician Hi STONE, Dr. Michelle Dunn Nurse Practitioner Marilyn STONE, Dr. Ray Mercedes Nurse Practitioner Margie GUY, Dr. Fowler Attending Physician Satish STONE, Dr. Vera Nurse Practitioner Marilyn STONE, Dr. Ray Mercedes Attending Physician Satish STONE, Dr. Vera Attending Physician Margie GUY, Dr. Fowler Nurse Practitioner Cesar SHAH, Padma Attending Physician Danitza STONE, Dr. Hensley Attending Physician Jenae SOMMER-C, Camille Attending Physician Malcolm Torres Admitting Unavailable MelissaMalcolm Attending Unavailable [place], JESUS Primary Care Unavailable Brisa MASTER DATA ANALYST, Raegan Attending Unavailable Brisa MASTER DATA ANALYST, Raegan Referring Unavailable [place], JESUS Primary Care Unavailable Ledezma MASTER DATA ANALYST, Raegan Attending Unavailable Ledezma MASTER DATA ANALYST, Raegan Referring Unavailable [place], JESUS Primary Care Unavailable Maritza Doa Mona Admitting Unavailable [place], JESUS Primary Care Unavailable Ray Sanders Consulting Unavailable Chuy Covarrubias Attending Unavailable Maritza Doa Mona Consulting Unavailable Chuy Covarrubias Consulting Unavailable Garcia, Marjorie Referring Unavailable Garcia, Marjorie Attending Unavailable L[place], JESUS Primary Care Unavailable Ayden Bosch Attending Unavailable [place], JESUS Primary Care Unavailable Ayden Bosch Referring Unavailable L[place], JESUS Primary Care Unavailable [place], JESUS Attending Unavailable Lenny Franks Attending Unavailable [place], JESUS Primary Care Unavailable L[place], JESUS Referring Unavailable Garcia, Marjorie Referring Unavailable Garcia, Marjorie Attending Unavailable [place], JESUS Primary Care Unavailable Ray Sanders Attending Unavailable Ledezma MASTER DATA ANALYST, Raegan Attending Unavailable L[place], JESUS Referring Unavailable L[place], JESUS Primary Care Unavailable Garcia, Marjorie Attending Unavailable [place], JESUS Primary Care Unavailable [place], JESUS Referring Unavailable Goldy Patino Admitting Unavailable [place], JESUS Primary Care Unavailable Goldy Patino Consulting Unavailable Goldy Patino Referring Unavailable Pierre Catalan Attending Unavailable Janak Ulloa Consulting Unavailable Goldy Patino Attending Unavailable [place], JESUS Primary Care Unavailable Malcolm Torres Attending Unavailable Goldy Patino Referring Unavailable AndesMinisterio Referring Unavailable [place], JESUS Primary Care Unavailable AndMinisterio borrero Attending Unavailable Ledezma MASTER DATA ANALYST, Raegan Attending Unavailable Ledezma MASTER DATA ANALYST, Raegan Referring Unavailable [place], JESUS Primary Care Unavailable Michelle Do Attending Unavailable Joppleticia, Malcolm Referring Unavailable Padma Guerrero Attending Unavailable TerrappMlacolm casas Consulting Unavailable Ayden Bosch Attending Unavailable [place], JESUS Primary Care Unavailable PrahAyden Referring Unavailable WanRay nelson Attending Unavailable Ray Sanders Referring Unavailable [place], JESUS Primary Care Unavailable Goldy Patino Referring Unavailable Janak Ulloa Attending Unavailable [place], JESUS Primary Care Unavailable Goldy Patino Consulting Unavailable Goldy Patino Admitting Unavailable [place], JESUS Primary Care Unavailable Ledezma MASTER DATA ANALYST, Raegan Referring Unavailable Ledezma MASTER DATA ANALYST, Raegan Attending Unavailable [place], JESUS Primary Care Unavailable Freddy Mayen Attending Unavailable Melissa, Malcolm Attending Unavailable [place], JESUS Primary Care Unavailable Pierre Catalan Attending Unavailable Lenny Franks Attending Unavailable L[place], JESUS Referring Unavailable [place], JESUS Primary Care Unavailable Ray Sanders Attending Unavailable Wanleslie, Ray Mercedes Referring Unavailable WanekRay Consulting Unavailable [place], JESUS Primary Care Unavailable Ledezma MASTER DATA ANALYST, Raegan Referring Unavailable Ledezma MASTER DATA ANALYST, Raegan Consulting Unavailable Pierre Catalan Attending Unavailable [place], JESUS Primary Care Unavailable Janak Ulloa Attending Unavailable Malcolm Hanson Attending Unavailable [place], JESUS Primary Care Unavailable Jenae MASTER DATA ANALYST, Camille Attending Unavailable L[place], JESUS Referring Unavailable [place], JESUS Primary Care Unavailable Jenae MASTER DATA ANALYST, Camille Attending Unavailable [place], JESUS Referring Unavailable Fields, Malcolm Attending Unavailable [place], JESUS Referring Unavailable [place], JESUS Primary Care Unavailable Ledezma MASTER DATA ANALYST, Raegan Attending Unavailable L[place], JESUS Referring Unavailable [place], JESUS Primary Care Unavailable PrahAyden Attending Unavailable [place], JESUS Primary Care Unavailable L[place], JESUS Referring Unavailable [place], JESUS Primary Care Unavailable Jenae MASTER DATA ANALYST, Camille Attending Unavailable [place], JESUS Referring Unavailable Prah, Ayden Attending Unavailable [place], JESUS Primary Care Unavailable L[place], JESUS Referring Unavailable [place], JESUS Primary Care Unavailable Jenae MASTER DATA ANALYST, Camille Attending Unavailable [place], JESUS Referring Unavailable Ray Sanders Attending Unavailable [place], JESUS Primary Care Unavailable PrahAyden Referring Unavailable Prah, Ayden Attending Unavailable L[place], JESUS Primary Care Unavailable L[place], JESUS Referring Unavailable Prah, Ayden Attending Unavailable [place], JESUS Primary Care Unavailable Brisa MASTER DATA ANALYST, Raegan Referring Unavailable [place], JESUS Primary Care Unavailable Brisa MASTER DATA ANALYST, Raegan Attending Unavailable [place], JESUS Referring Unavailable Ray Sanders Consulting Unavailable Hi Michelle Mona Admitting Unavailable Malcolm Hanson Attending Unavailable [place], JESUS Primary Care Unavailable Michelle Do Mona Consulting Unavailable Chuy Covarrubias Consulting Unavailable Allergies Allergy Classification Reported Allergen(s) Allergy Type Date of Onset Reaction(s) Facility (16 sources) hydroCHLOROthiazide Drug Allergy [address] [facility] (1 source) hydroCHLOROthiazide Drug Allergy 5 [facility] Repository Medications Current Medications Medication Drug Class(es) Dates Sig (Normalized) Sig (Original) [id number] 200 actuat albuterol 0.09 mg/actuat metered dose inhaler (16 sources) beta2-Adrenergic Agonist Start: 12-09-2024 Albuterol Sulfate 90 mcg/actuation HFA aerosol inhaler Active 1 NMA INHALATION EVERY 4 HOURS NEEDED December 09, 2024 1:00am Complies with drug therapy aspirin 81 mg delayed release oral tablet (20 sources) Platelet Aggregation Inhibitor, Nonsteroidal Anti-inflammatory Drug Start: 11-11-2024 End: 04-07-2025 Aspirin (Adult Low Dose Aspirin) 81 mg tablet,delayed release (DR/EC) Active 81 mg PO DAILY April 07, 2025 12:00am Complies with drug therapy Start: 01-09-2024 End: 09-07-2024 take 1 capsule by mouth once daily Aspirin 81 mg capsule Discontinued 81 mg PO DAILY January 09, 2024 1:00am September 07, 2024 10:48pm atorvastatin 40 mg oral tablet (20 sources) HMG-CoA Reductase Inhibitor Start: 06-29-2025 take 1 tablet by mouth once daily Atorvastatin 40 mg tablet Active 40 mg PO daily June 29, 2025 12:00am Complies with drug therapy Start: 11-08-2024 End: 05-01-2025 take 1 tablet by mouth at bedtime Atorvastatin (Lipitor) 40 mg tablet Discontinued 40 mg PO AT BEDTIME April 07, 2025 12:00am May 01, 2025 9:20am dexamethasone 4 mg oral tablet (9 sources) Corticosteroid Start: 06-12-2025 End: 07-05-2025 take 1 tablet by mouth twice daily Dexamethasone 4 mg tablet Active 4 mg PO .COMPLEX 24 0 July 05, 2025 9:08am 4 mg orally twice daily ONLY the day before, the day of and the day after chemotherapy Complies with drug therapy folic acid 1 mg oral tablet (6 sources) Start: 06-12-2025 take 1 tablet by mouth once daily Folic Acid 1 mg tablet Active 1 mg PO daily 90 June 12, 2025 12:00am 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 Malignant neoplasm of lower lobe, left bronchus or lung Complies with drug therapy 120 actuat formoterol fumarate 0.0048 mg/actuat / glycopyrrolate 0.009 mg/actuat metered dose inhaler (20 sources) beta2-Adrenergic Agonist Start: 04-07-2025 Glycopyrrolate-Form oterol (Bevespi Aerosphere) 9-4.8 mcg HFA aerosol inhaler Active 2 NMA INHALATION Q12H April 07, 2025 12:00am Complies with drug therapy Start: 03-14-2025 End: 04-07-2025 Glycopyrrolate-Formoterol (B evespi Aerosphere) 9-4.8 mcg HFA aerosol inhaler Discontinued 2 NMA INHALATION every day in the morning and in the evening 11 11March 14, 2025 12:00am April 07, 2025 11:05am Mass of left lung Other nonspecific abnormal finding of lung field hydrOXYzine hydrochloride 50 mg oral tablet (16 sources) Antihistamine Start: 12-26-2024 take 1 tablet by mouth at bedtime Hydroxyzine Hcl 50 mg tablet Active 50 mg PO AT BEDTIME December 26, 2024 1:00am Complies with drug therapy irbesartan 150 mg oral tablet (2 sources) Angiotensin 2 Receptor Nic Start: 03-08-2021 End: 12-03-2021 irbesartan 150 mg oral tablet Dose : 150 mg = 1 tab(s), Oral, qDay, # 90 tab(s), 2 Refill(s), Pharmacy: [id number], Hypertension, 166, cm, 03/08/21 13:32:00 EDT, Height, kg, 03/08/21 13:32:00 EDT, Dosing Weight Start Date: 03/08/21 Stop Date: 12/03/21 Status: Ordered lidocaine 25 mg/ml / prilocaine 25 mg/ml topical cream (6 sources) Antiarrhythmic, Amide Local Anesthetic Start: 06-12-2025 Lidocaine-Prilocain e 2.5-2.5 % cream Active 1 NMA TOPICAL ONCE as needed for port cream 30 June 12, 2025 12:00am 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 Malignant neoplasm of lower lobe, left bronchus or lung Complies with drug therapy Start: 06-12-2025 Lidocaine-Pril ocaine 2.5-2.5 % cream Active 1 NMA TOPICAL ONCE as needed for port cream 30 June 12, 2025 12:00am 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 Malignant neoplasm of lower lobe, left bronchus or lung ondansetron 8 mg disintegrating oral tablet (6 sources) Serotonin-3 Receptor Antagonist Start: 06-12-2025 take 1 tablet by mouth every eight hours as needed for nausea and vomiting Ondansetron 8 mg tablet,disintegrating Active 8 mg PO Q8H as needed for nausea and vomiting 30 June 12, 2025 12:00am Complies with drug therapy oxyCODONE hydrochloride 5 mg oral tablet (7 sources) Opioid Agonist Start: 06-05-2025 take 1 tablet by mouth every eight hours as needed for pain Oxycodone 5 mg tablet Active 5 mg PO Q8H as needed for pain 7 3 0 June 05, 2025 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 Malignant neoplasm of lower lobe, left bronchus or lung Complies with drug therapy pembrolizumab (5 sources) Programmed Receptor-1 Blocking Antibody Start: 06-12-2025 Keytruda Active 200 mg IV Q21D 8 June 12, 2025 12:00am 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 Malignant neoplasm of lower lobe, left bronchus or lung Complies with drug therapy Start: 06-12-2025 Keytruda Activ e 200 mg IV Q21D 8 June 12, 2025 12:00am 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 Malignant neoplasm of lower lobe, left bronchus or lung polymyxin [id number] unt/ml / trimethoprim 1 mg/ml ophthalmic solution (12 sources) Dihydrofolate Reductase Inhibitor Antibacterial, Polymyxin-class Antibacterial Start: 04-19-2025 Polymyxin B Sulf-Trimethoprim 10,000 unit- 1 mg/mL drops Active 1 NMA OPHTHALMIC DAILY April 19, 2025 12:00am Complies with drug therapy tamsulosin hydrochloride 0.4 mg oral capsule (20 sources) alpha-Adrenergic Nic Start: 12-29-2023 take 1 capsule by mouth at bedtime Tamsulosin 0.4 mg capsule Active 0.4 mg PO AT BEDTIME December 29, 2023 1:00am Complies with drug therapy Start: 11-25-2023 End: 12-25-2023 tamsulosin 0.4 mg oral capsu le Dose : 0.4 mg = 1 cap(s), Oral, qDay, # 30 cap(s), 0 Refill(s), Pharmacy: [id number], BPH without urinary obstruction, 166, cm, 11/25/23 9:57:00 EST, Height, kg, 11/25/23 9:57:00 EST, Dosing Weight Start Date: 11/25/23 Stop Date: 12/25/23 Status: Ordered Start: 09-23-2021 End: 11-22-2021 tamsulosin 0.4 mg oral capsu le Dose : 0.4 mg = 1 cap(s), Oral, qDay, # 30 cap(s), 1 Refill(s), Pharmacy: [id number], BPH without urinary obstruction, 166, cm, 09/23/21 8:10:00 EST, Height, kg, 09/23/21 8:10:00 EST, Dosing Weight Start Date: 09/23/21 Stop Date: 11/22/21 Status: Ordered Completed/Discontinued Medications Medication Drug Class(es) Dates Sig (Normalized) Sig (Original) erythromycin 0.005 mg/mg ophthalmic ointment (20 sources) Macrolide, Macrolide Antimicrobial Start: 12-29-2023 End: 09-07-2024 Erythromycin 5 mg/gram (0.5 %) ointment Discontinued 1 NMA OPHTHALMIC EVERY 6 HOURS December 29, 2023 1:00am September 07, 2024 10:48pm Start: 12-29-2023 Erythromycin A ctive 1 APPLIC OPHTHALMIC EVERY 6 HOURS December 29, 2023 1:00am Start: 12-29-2023 Erythromycin A ctive 1 APPLIC OPHTHALMIC December 29, 2023 12:00am Start: 11-25-2023 erythromycin 0 .5% ophthalmic ointment Dose = 1 tre, Eye, left, QID, 1 tre = 0.5 inch, # 3.5 gram(s), 0 Refill(s), Pharmacy: [id number], Hordeolum of left eye, 166, cm, 11/25/23 9:57:00 EST, Height, kg, 11/25/23 9:57:00 EST, Dosing Weight Start Date: 11/25/23 Status: Ordered hydroCHLOROthiazide 12.5 mg / irbesartan 150 mg oral tablet (20 sources) Thiazide Diuretic, Angiotensin 2 Receptor Nic Start: 12-29-2023 End: 11-08-2024 Irbesartan-Hydrochlorothiazi de 150-12.5 mg tablet Discontinued 1 {tbl} PO DAILY December 29, 2023 1:00am November 08, 2024 12:13pm Start: 12-29-2023 take 1 tablet by bibiana once daily Irbesartan-Hydrochlorothiazide Active 1 TABLET PO DAILY December 29, 2023 1:00am Start: 11-25-2023 End: 12-25-2023 take 1 tablet by mouth once daily hydrochlorothiazide-irbesartan 12.5 mg-1 50 mg oral tablet Dose = 1 tab(s), Oral, Daily, # 30 tab(s), 0 Refill(s), Pharmacy: [id number], Hypertension, 166, cm, 11/25/23 9:57:00 EST, Height, kg, 11/25/23 9:57:00 EST, Dosing Weight Start Date: 11/25/23 Stop Date: 12/25/23 Status: Ordered Start: 09-23-2021 End: 11-22-2021 take 1 tablet by mouth once daily hydrochlorothiazide-irbesartan 12.5 mg-1 50 mg oral tablet Dose = 1 tab(s), Oral, Daily, # 30 tab(s), 1 Refill(s), Pharmacy: [id number], Hypertension, 166, cm, 09/23/21 8:10:00 EST, Height, kg, 09/23/21 8:10:00 EST, Dosing Weight Start Date: 09/23/21 Stop Date: 11/22/21 Status: Ordered Problems Active Problems Problem Classification Problem Date Documented Da te Episodic/Chronic Administrative/social admission (20 sources) Patient encounter status; Translations: [Counseling, unspecified] 06-12-2025 Episodic Comment on above: Counts and chemistry reviewed, Ok for therapy. Alcohol-related disorders (18 sources) Persistent alcohol abuse ; Translations: [Alcohol abuse, uncomplicated] Onset: 06-22-2025 12-09-2024 Chronic Comment on above: 2-3 BEERS DAILY Blindness and vision defects (16 sources) Visual impairment; Translations: [Unqualified visual loss, left eye, normal vision right eye] 12-09-2024 Chronic Cancer of bronchus; lung (20 sources) Adenocarcinoma of left lung; Translations: [Malignant neoplasm of lower lobe, left bronchus or lung] Onset: 07-26-2025 04-19-2025 Chronic Comment on above: Adenocarcinoma L gal g T4 N3 M1 R lung nodule, Stage IV. PDL1 11%, EGFR, ALK, BRAF, Her2, STEVE, ROS1, MET, RET are negative.Discussed management which consist of chemotherapy, immunotherapy, Pt wants to do every 3 weeks therapy.Suggested therapy with Alimta, Carboplatin and Keytruda Adenocarcinoma L gal g T4 N3 M1 R lung nodule, Stage IV. PDL1 11%, EGFR, ALK, BRAF, Her2, STEVE, ROS1, MET, RET are negative.PET/CT on 04/25/2025 shows bilateral lung nodules, bilateral lateral hilar nodes.Discussed management which consist of chemotherapy, immunotherapy, Pt wants to do every 3 weeks therapy.Suggested therapy with Alimta, Carboplatin and Keytruda Adenocarcinoma L gal g T4 N3 M1 R lung nodule, Stage IV. PDL1 11%, EGFR, ALK, BRAF, Her2, STEVE, ROS1, MET, RET are negative.PET/CT on 04/25/2025 shows bilateral lung nodules, bilateral lateral hilar nodes. Adenocarcinoma L gal g T4 N3 M1 R lung nodule, Stage IV. PDL1 11%, EGFR, ALK, BRAF, Her2, STEVE, ROS1, MET, RET are negative.PET/CT on 04/25/2025 shows bilateral lung nodules, bilateral lateral hilar nodes.Comes to start Keytruda, Alimta, Carboplatin.Counts and chemistry reviewed, OK for therapy. Adenocarcinoma L gal g T4 N3 M1 R lung nodule, Stage IV. PDL1 11%, EGFR, ALK, BRAF, Her2, STEVE, ROS1, MET, RET are negative.PET/CT on 04/25/2025 shows bilateral lung nodules, bilateral lateral hilar nodes.Began palliative Keytruda, Alimta, Carboplatin on 06/14/25 . Adenocarcinoma L gal g T4 N3 M1 R lung nodule, Stage IV. PDL1 11%, EGFR, ALK, BRAF, Her2, STEVE, ROS1, MET, RET are negative.PET/CT on 04/25/2025 shows bilateral lung nodules, bilateral lateral hilar nodes.Began palliative Keytruda, Alimta, Carboplatin on 06/14/25.Comes for C3.Counts and chemistry reviewed, OK for therapy. Chronic obstructive pulmonary disease and bronchiectasis (20 sources) Chronic obstructive lung disease; Translations: [Chronic obstructive pulmonary disease, unspecified] Onset: 03-27-2025 01-31-2025 Chronic Comment on above: FEV1 60% FEV1 60%/DAILY INHAL ER Congestive heart failure; nonhypertensive (1 source) Unspecified systolic (congestive) heart failure; Translations: [Unspecified systolic (congestive) heart failure] Onset: 12-12-2024 Chronic Diabetes mellitus without complication (4 sources) Impaired fasting glycemia 09-23-2021 Episodic Diseases of white blood cells (11 sources) Drug-induced neutropenia; Translations: [Other drug-induced agranulocytosis] 06-29-2025 Chronic Essential hypertension (20 sources) Hypertensive disorder; Translations: [Essential (primary) hypertension] Onset: 06-16-2024 09-07-2017 Chronic Fluid and electrolyte disorders (20 sources) Hyponatremia; Translations: [Hypo-osmolality and hyponatremia] Onset: 11-18-2024 12-09-2024 Episodic Genitourinary symptoms and ill-defined conditions (3 sources) Dysuria 09-23-2021 Episodic Hyperplasia of prostate (20 sources) Benign prostatic hypertrophy without outflow obstruction; Translations: [Benign prostatic hyperplasia without lower urinary tract symptoms] Onset: 06-22-2025 09-23-2021 Chronic Comment on above: ON FLOMAX Maintenance chemotherapy; radiotherapy (12 sources) Patient encounter status; Translations: [Encounter for antineoplastic chemotherapy] Onset: 06-14-2025 06-14-2025 Chronic Comment on above: Counts and chemistry reviewed, Ok for therapy. Occlusion or stenosis of precerebral arteries (20 sources) Internal carotid artery stenosis; Translations: [Occlusion and stenosis of right carotid artery] Onset: 12-21-2024 12-26-2024 Chronic Comment on above: CTA reviewed, 74% st enosis right ICA, dense calcification; 45% left Other aftercare (1 source) Encounter for adjustment and management of vascular access device; Translations: [Encounter for adjustment and management of vascular access device] Onset: 06-21-2025 Episodic Other circulatory disease (16 sources) Syncope due to orthostatic hypotension; Translations: [Orthostatic hypotension] 09-16-2024 Episodic Other circulatory disease (17 sources) Orthostatic hypotension; Translations: [Orthostatic hypotension] 12-09-2024 Episodic Other eye disorders (3 sources) Ectropion of left eyelid 11-25-2023 Episodic Other gastrointestinal disorders (12 sources) Constipation; Translations: [Constipation, unspecified] 06-29-2025 Episodic Other injuries and conditions due to external causes (16 sources) Closed injury of head; Translations: [Unspecified injury of head, initial encounter] 09-16-2024 Episodic Other lower respiratory disease (20 sources) Lung mass; Translations: [Other nonspecific abnormal finding of lung field] 01-08-2024 Episodic Other lower respiratory disease (20 sources) Multiple nodules of lung; Translations: [Other nonspecific abnormal finding of lung field] 12-29-2023 Episodic Other lower respiratory disease (1 source) History of chronic obstructive airway disease 01-13-2024 Episodic Other lower respiratory disease (20 sources) Hypoxemia; Translations: [Hypoxemia] 04-07-2025 Episodic Pleurisy; pneumothorax; pulmonary collapse (8 sources) Pneumothorax; Translations: [Pneumothorax, unspecified] 05-31-2025 Episodic Residual codes; unclassified (20 sources) Finding of region of thorax; Translations: [Presence of other specified functional implants] 01-08-2024 Chronic Residual codes; unclassified (5 sources) Presence of other specified functional implants; Translations: [Other specified conditions influencing health status] 01-08-2024 Chronic Residual codes; unclassified (1 source) Preoperative state 01-13-2024 Episodic Residual codes; unclassified (16 sources) Tobacco user; Translations: [Tobacco use] 09-16-2024 Episodic Substance-related disorders (20 sources) Nicotine dependence; Translations: [Nicotine dependence, cigarettes, uncomplicated] Onset: 11-18-2024 12-29-2023 Chronic Unclassified (20 sources) Patient encounter status 03-07-2021 Unclassified (1 source) I50.20 - Unspecified systolic (congestive) heart failure,R93.1 - Abnormal findings on diagnostic imaging of heart and coronary circulation Unclassified (20 sources) 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; Translations: [C34.32 - Malignant neoplasm of lower lobe, left bronchus or lung] Unclassified (1 source) Encounter for other specified prophylactic measures; Translations: [Encounter for other specified prophylactic measures] Onset: 06-14-2025 Past or Other Problems Problem Classification Problem Date Documented Date Episodic/Chronic Complications of surgical procedures or medical care (20 sources) Iatrogenic pneumothorax; Translations: [Postprocedural pneumothorax] Onset: 04-25-2025 01-08-2024 Episodic E Codes: Adverse effects of medical drugs (18 sources) Adverse reaction to drug; Translations: [Adverse effect of unspecified drugs, medicaments and biological substances, initial encounter] Onset: 11-18-2024 11-07-2024 Episodic Lymphadenitis (20 sources) Mediastinal lymphadenopathy; Translations: [Localized enlarged lymph nodes] Onset: 03-06-2025 01-31-2025 Episodic Other circulatory disease (1 source) Orthostatic hypotension; Translations: [Orthostatic hypotension] Onset: 11-18-2024 Episodic Other lower respiratory disease (12 sources) Other nonspecific abnormal finding of lung field; Translations: [Other nonspecific abnormal finding of lung field] Onset: 11-18-2024 12-29-2023 Episodic Other lower respiratory disease (1 source) Hypoxemia; Translations: [Hypoxemia] Onset: 04-25-2025 Episodic Other screening for suspected conditions (not mental disorders or infectious disease) (19 sources) Echocardiogram abnormal; Translations: [Abnormal findings on diagnostic imaging of heart and coronary circulation] Onset: 12-12-2024 12-09-2024 Episodic Syncope (19 sources) Syncope and collapse; Translations: [Syncope and collapse] Onset: 09-28-2024 12-09-2024 Episodic Results Test Name Value Interpretation Reference Range Facility Absolute lymphocyte countOrd ered By: Ayden Bosch on 07-26-2025 Lymphocytes Auto (Unsp spec) [#/Vol] 1.36 10*3/uL 0.83-4.51 [facility] Absolute neutrophil countOrd ered By: Ayden Bosch on 07-26-2025 Neutrophils (Bld) [#/Vol] 16.3 10*3/uL High 2.0-7.7 [facility] Anion gap in Serum or Plasma Ordered By: Ayden Bosch on 07-26-2025 Anion gap [Moles/Vol] 12 mmol/L 5-15 [facility] Automated blood erythrocyte countOrdered By: Ayden Bosch on 07-26-2025 RBC (Bld) [#/Vol] 3.87 10*6/uL Low 4.6-6.2 [facility] Comment on above: Performed By: #### L 501.9520, L100.0100, L501.2300, L500.4050 ####[facility] [address] [place], [address] Automated blood hematocrit ( percentage)Ordered By: Ayden Bosch on 07-26-2025 Hematocrit (Bld) [Volume fraction] 34.9 % Low 40-54 [facility] Comment on above: Performed By: #### L 501.9520, L100.0100, L501.2300, L500.4050 ####[facility] [address] [place], [address] Automated lymphocyte count a s percentage of total leukocytesOrdered By: Ayden Bosch on 07-26-2025 Lymphocytes/100 WBC Auto (Unsp spec) 7.0 % Low 19-41 [facility] BUN/creatinine ratioOrdered By: Ayden Bosch on 07-26-2025 Urea nitrogen/Creatinine [Mass ratio] 19.8 mg/mg 10-20 [facility] Basophil percentageOrdered B y: Ayden Bosch on 07-26-2025 Basophils/100 WBC (Bld) 0.4 % Normal 0-1 [facility] Comment on above: Performed By: #### L 501.9520, L100.0100, L501.2300, L500.4050 ####[facility] [address] [place], [address] Bilirubin, totalOrdered By: Ayden Bosch on 07-26-2025 Bilirubin [Mass/Vol] 0.29 mg/dL Normal 0.00-1.30 [facility] Comment on above: Performed By: #### L 501.9520, L100.0100, L501.2300, L500.4050 ####[facility] [address] [place], [address] CBC W/Diff, Automatedon 07-10 Absolute Lymph 1.36 X10 3/uL Normal 0.83-4.51 [facility] Comment on above: Performed By: #### L 501.9520, L100.0100, L501.2300, L500.4050 ####[facility] [address] [place], [address] Absolute Neut 16.3 X10 3/uL High 2.0-7.7 [facility] Comment on above: Performed By: #### L 501.9520, L100.0100, L501.2300, L500.4050 ####[facility] [address] [place], [address] IG% 1.900 High 0.0-0.9 [facility] Comment on above: Result Comment: IG% - Immature Granulocytes (promyelocytes, myelocytes andmetamyelocytes) > 1% indicates that a LEFT SHIFT is Present. Performed By: #### L 501.9520, L100.0100, L501.2300, L500.4050 ####[facility] [address] [place], [address] Lymphocytes/100 WBC (Bld) 7.0 % Low 19-41 [facility] Comment on above: Performed By: #### L 501.9520, L100.0100, L501.2300, L500.4050 ####[facility] [address] [place], [address] Nucleated RBC (Bld) [#/Vol] 0 10*3/uL Normal 0-5 [facility] Comment on above: Performed By: #### L 501.9520, L100.0100, L501.2300, L500.4050 ####[facility] [address] [place], [address] RDW SD 48.9 fl High 35.1-43.9 [facility] Comment on above: Performed By: #### L 501.9520, L100.0100, L501.2300, L500.4050 ####[facility] [address] [place], [address] Carbon dioxide, total [Moles /volume] in Central venous bloodOrdered By: Ayden Bosch on 07-26-2025 CO2 [Moles/Vol] 21.9 mmol/L Normal 21.0-32.0 [facility] Comment on above: Performed By: #### L 501.9520, L100.0100, L501.2300, L500.4050 ####[facility] [address] [place], [address] Chloride assayOrdered By: Terra Bosch on 07-26-2025 Chloride [Moles/Vol] 99 mmol/L Normal 98-108 [facility] Comment on above: Performed By: #### L 501.9520, L100.0100, L501.2300, L500.4050 ####[facility] [address] [place], [address] Comprehensive Metabolic Prof janet 07-26-2025 ALK PHOS 151 U/L High 40-129 [facility] Comment on above: Performed By: #### L 501.9520, L100.0100, L501.2300, L500.4050 ####[facility] [address] [place], [address] BUN/CRE 19.8 RATIO Normal 10-20 [facility] Comment on above: Performed By: #### L 501.9520, L100.0100, L501.2300, L500.4050 ####[facility] [address] [place], [address] ECRCL 57.88 ml/min Normal 50-250 [facility] Comment on above: Performed By: #### L 501.9520, L100.0100, L501.2300, L500.4050 ####[facility] [address] [place], [address] GAP 12 Normal 5-15 [facility] Comment on above: Performed By: #### L 501.9520, L100.0100, L501.2300, L500.4050 ####[facility] [address] [place], [address] Potassium [Moles/Vol] 4.1 mmol/L Normal 3.3-5.1 [facility] Comment on above: Performed By: #### L 501.9520, L100.0100, L501.2300, L500.4050 ####[facility] [address] [place], [address] T PROT 7.2 g/dL Normal 5.9-8.4 [facility] Comment on above: Performed By: #### L 501.9520, L100.0100, L501.2300, L500.4050 ####[facility] [address] [place], [address] Comprehensive Metabolic Prof ilOrdered By: Ayden Bosch on 07-26-2025 AST [Catalytic activity/Vol] 30 U/L Normal <=37 [facility] Comment on above: Performed By: #### L 501.9520, L100.0100, L501.2300, L500.4050 ####[facility] [address] [place], [address] Eosinophil percentageOrdered By: Ayden Bosch on 07-26-2025 Eosinophils/100 WBC (Bld) 0.0 % Normal 0-5 [facility] Comment on above: Performed By: #### L 501.9520, L100.0100, L501.2300, L500.4050 ####[facility] [address] [place], [address] Erythrocyte distribution wid th ratioOrdered By: Ayden Bosch on 07-26-2025 Erythrocyte distribution width (RBC) [Ratio] 15.1 % High 11.6-14.6 [facility] Comment on above: Performed By: #### L 501.9520, L100.0100, L501.2300, L500.4050 ####[facility] [address] [place], [address] Erythrocyte distribution wid th standard deviationOrdered By: Ayden Bosch on 07-26-2025 Erythrocyte distribution width (RBC) [Ratio] 48.9 fl High 35.1-43.9 [facility] Glomerular filtration rate ( GFR) estimation/1.73 sq m using serum, plasma, or whole bOrdered By: Ayden Bosch on 07-26-2025 GFR/1.73 sq M.predicted among non-blacks MDRD (S/P/Bld) [Vol rate/Area] 104 mL/min/{1.73_m2} Normal >60 [facility] Comment on above: mL/min/1.73m2 CKD-EP I Creatinine Equation (2020) Result Comment: mL/m in/1.73m2 CKD-EPI Creatinine Equation (2020) Performed By: #### L 501.9520, L100.0100, L501.2300, L500.4050 ####[facility] [address] [place], [address] Hemoglobin measurementOrdere d By: Ayden Bosch on 07-26-2025 Hemoglobin (Bld) [Mass/Vol] 12.2 g/dL Low 13.0-16. 5 [facility] Comment on above: Performed By: #### L 501.9520, L100.0100, L501.2300, L500.4050 ####[facility] [address] [place], [address] Immature granulocytes/100 WB C Auto (Bld)Ordered By: Ayden Bosch on 07-26-2025 Immature granulocytes/100 WBC (Bld) 1.900 % High 0.0-0.9 [facility] Comment on above: IG% - Immature Granu locytes (promyelocytes, myelocytes and metamyelocytes) > 1% indicates that a LEFT SHIFT is Present. MCV (mean corpuscular volume ) determinationOrdered By: Ayden Bosch on 07-26-2025 MCV (RBC) [Entitic vol] 90.2 fL Normal 80-94 [facility] Comment on above: Performed By: #### L 501.9520, L100.0100, L501.2300, L500.4050 ####[facility] [address] [place], [address] Mean corpuscular hemoglobin (MCH) determinationOrdered By: Ayden Bosch on 07-26-2025 MCH (RBC) [Entitic mass] 31.5 pg Normal 27.0-32.0 [facility] Comment on above: Performed By: #### L 501.9520, L100.0100, L501.2300, L500.4050 ####[facility] [address] [place], [address] Mean corpuscular hemoglobin concentration (MCHC) determinationOrdered By: Ayden Bosch on 07-26-2025 MCHC (RBC) [Mass/Vol] 35.0 g/dL Normal 32-36 [facility] Comment on above: Performed By: #### L 501.9520, L100.0100, L501.2300, L500.4050 ####[facility] [address] [place], [address] Mean platelet volume determi nationOrdered By: Ayden Bosch on 07-26-2025 Platelet mean volume (Bld) [Entitic vol] 8.9 fL Normal 6.2-12.0 [facility] Comment on above: Performed By: #### L 501.9520, L100.0100, L501.2300, L500.4050 ####[facility] [address] [place], [address] Monocyte percentageOrdered B y: Ayden Bosch on 07-26-2025 Monocytes/100 WBC (Bld) 6.9 % Normal 0-10 [facility] Comment on above: Performed By: #### L 501.9520, L100.0100, L501.2300, L500.4050 ####[facility] [address] [place], [address] Neutrophil percentageOrdered By: Ayden Bosch on 07-26-2025 Neutrophils/100 WBC (Bld) 83.8 % High 47-70 [facility] Comment on above: Performed By: #### L 501.9520, L100.0100, L501.2300, L500.4050 ####[facility] [address] [place], [address] Nucleated red blood cell per centageOrdered By: Ayden Bosch on 07-26-2025 Nucleated RBC/100 WBC (Bld) [Ratio] 0 % 0-5 [facility] Oncology Visit Reporton 07-10 Oncology Visit Report Normal [facility] Phosphoruson 07-26-2025 Phosphate [Mass/Vol] 3.5 mg/dL Normal 2.7-4.5 [facility] Comment on above: Performed By: #### L 501.9520, L100.0100, L501.2300, L500.4050 ####[facility] [address] [place], [address] Platelet countOrdered By: Terra Bosch on 07-26-2025 Platelets (Bld) [#/Vol] 555 10*3/uL High 150-450 [facility] Comment on above: Performed By: #### L 501.9520, L100.0100, L501.2300, L500.4050 ####[facility] [address] [place], [address] Potassium measurement (mass/ volume)Ordered By: Ayden Bosch on 07-26-2025 Potassium (Unsp spec) [Mass/Vol] 4.1 mmol/L 3.3-5.1 [facility] Serum creatinine measurement (mass/volume)Ordered By: Ayden Bosch on 07-26-2025 Creatinine [Mass/Vol] 0.60 mg/dL Low 0.70-1.20 [facility] Comment on above: Performed By: #### L 501.9520, L100.0100, L501.2300, L500.4050 ####[facility] [address] [place], [address] Serum globulin measurementOr dered By: Ayden Bosch on 07-26-2025 Globulin (S) [Mass/Vol] 3.6 g/dL Normal 2.2-4.2 [facility] Comment on above: Performed By: #### L 501.9520, L100.0100, L501.2300, L500.4050 ####[facility] [address] [place], [address] Serum glucose measurement (m ass/volume)Ordered By: Ayden Bosch on 07-26-2025 Glucose [Mass/Vol] 110 mg/dL High 70-99 [facility] Comment on above: Performed By: #### L 501.9520, L100.0100, L501.2300, L500.4050 ####[facility] [address] [place], [address] Serum or plasma alanine champagne otransferase (ALT) measurementOrdered By: Ayden Bosch on 07-26-2025 ALT [Catalytic activity/Vol] 23 U/L Normal <=46 [facility] Comment on above: Performed By: #### L 501.9520, L100.0100, L501.2300, L500.4050 ####[facility] [address] [place], [address] Serum or plasma albumin francoise urement (mass/volume)Ordered By: Ayden Bosch on 07-26-2025 Albumin [Mass/Vol] 3.7 g/dL Normal 3.4-4.8 [facility] Comment on above: Performed By: #### L 501.9520, L100.0100, L501.2300, L500.4050 ####[facility] [address] [place], [address] Serum or plasma albumin/glob ulin mass ratioOrdered By: Ayden Bosch on 07-26-2025 Albumin/Globulin [Mass ratio] 1.0 {ratio} Normal 0.9-2.4 [facility] Comment on above: Performed By: #### L 501.9520, L100.0100, L501.2300, L500.4050 ####[facility] [address] [place], [address] Serum or plasma alkaline mariola sphatase measurementOrdered By: Ayden Bosch on 07-26-2025 ALP [Catalytic activity/Vol] 151 U/L High 40-129 [facility] Serum or plasma calcium francoise urement (mass/volume)Ordered By: Ayden Bosch on 07-26-2025 Calcium [Mass/Vol] 9.5 mg/dL Normal 7.6-11.0 [facility] Comment on above: Performed By: #### L 501.9520, L100.0100, L501.2300, L500.4050 ####[facility] [address] [place], [address] Serum or plasma urea nitroge n measurement (mass/volume)Ordered By: Ayden Bosch on 07-26-2025 Urea nitrogen [Mass/Vol] 12 mg/dL Normal 4-19 [facility] Comment on above: Performed By: #### L 501.9520, L100.0100, L501.2300, L500.4050 ####[facility] [address] [place], [address] Sodium levelOrdered By: Cam Bosch on 07-26-2025 Sodium [Moles/Vol] 133 mmol/L Normal 133-145 [facility] Comment on above: Performed By: #### L 501.9520, L100.0100, L501.2300, L500.4050 ####[facility] [address] [place], [address] TSH DL <= 0.005 mIU/L QnOrde red By: Ayden Bosch on 07-26-2025 TSH Qn 1.310 uIU/mL 0.300-4.20 0 [facility] Thyroid Stim Hormone (TSH)on 07-26-2025 TSH 1.310 uIU/mL Normal 0.300-4.20 0 [facility] Comment on above: Performed By: #### L 501.9520, L100.0100, L501.2300, L500.4050 ####[facility] [address] [place], [address] Total proteinOrdered By: Ramón Bosch on 07-26-2025 Protein [Mass/Vol] 7.2 g/dL 5.9-8.4 [facility] White blood cell (WBC) count Ordered By: Ayden Bosch on 07-26-2025 WBC (Bld) [#/Vol] 19.5 10*3/uL High 4.4-11.0 [facility] Comment on above: Performed By: #### L 501.9520, L100.0100, L501.2300, L500.4050 ####[facility] [address] [place], [place], [address] Absolute lymphocyte countOrd ered By: Camille Jenae on 07-19-2025 Lymphocytes Auto (Unsp spec) [#/Vol] 1.95 10*3/uL 0.83-4.51 [facility] Absolute neutrophil countOrd ered By: Camille Jenae on 07-19-2025 Neutrophils (Bld) [#/Vol] 16.1 10*3/uL High 2.0-7.7 [facility] Anion gap in Serum or Plasma Ordered By: Camille Jenae on 07-19-2025 Anion gap [Moles/Vol] 11 mmol/L 5-15 [facility] Automated lymphocyte count a s percentage of total leukocytesOrdered By: Camille Jenae on 07-19-2025 Lymphocytes/100 WBC Auto (Unsp spec) 9.2 % Low 19-41 [facility] BUN/creatinine ratioOrdered By: Camille Jenae on 07-19-2025 Urea nitrogen/Creatinine [Mass ratio] 17.2 mg/mg 10-20 [facility] Basophil percentageOrdered B y: Camille Jenae on 07-19-2025 Basophils/100 WBC (Bld) 0.2 % 0-1 [facility] Bilirubin, totalOrdered By: Camille Jenae on 07-19-2025 Bilirubin [Mass/Vol] 0.52 mg/dL Normal 0.00-1.30 [facility] Comment on above: Performed By: #### L 100.0100, L500.4050 ####[facility] [address] [place], [address] Blood manual differential co mment interpretation (narrative result)Ordered By: Camillemago Emanuel on 07-19-2025 Manual differential comment Agapito (Bld) [Interp] COMMENT [facility] Comment on above: MONOCYTOSIS. CBC W/Diff, Automatedon 09- SMEAR COMMENT COMMENT Normal [facility] Comment on above: Result Comment: MONO CYTOSIS. Performed By: #### L 100.0100, L500.4050 ####[facility] [address] [place], [address] Carbon dioxide, total [Moles /volume] in Central venous bloodOrdered By: Camille Emanuel on 07-19-2025 CO2 [Moles/Vol] 22.5 mmol/L Normal 21.0-32.0 [facility] Comment on above: Performed By: #### L 100.0100, L500.4050 ####[facility] [address] [place], [address] Chloride assayOrdered By: Ty ra Emanuel on 07-19-2025 Chloride [Moles/Vol] 97 mmol/L Low 98-108 [facility] Comment on above: Performed By: #### L 100.0100, L500.4050 ####[facility] [address] [place], [address] Comprehensive Metabolic Prof ilon 07-19-2025 ALK PHOS 186 U/L High 40-129 [facility] Comment on above: Performed By: #### L 100.0100, L500.4050 ####[facility] [address] [place], [address] BUN/CRE 17.2 RATIO Normal 10-20 [facility] Comment on above: Performed By: #### L 100.0100, L500.4050 ####[facility] [address] [place], [address] ECRCL 57.60 ml/min Normal 50-250 [facility] Comment on above: Performed By: #### L 100.0100, L500.4050 ####[facility] [address] [place], [address] GAP 11 Normal 5-15 [facility] Comment on above: Performed By: #### L 100.0100, L500.4050 ####[facility] [address] [place], [address] Potassium [Moles/Vol] 3.9 mmol/L Normal 3.3-5.1 [facility] Comment on above: Performed By: #### L 100.0100, L500.4050 ####[facility] [address] [place], [place], [id number] T PROT 6.9 g/dL Normal 5.9-8.4 [facility] Comment on above: Performed By: #### L 100.0100, L500.4050 ####[facility] [address] [place], [address] Comprehensive Metabolic Prof ilOrdered By: Camille Emanuel on 07-19-2025 AST [Catalytic activity/Vol] 28 U/L Normal <=37 [facility] Comment on above: Performed By: #### L 100.0100, L500.4050 ####[facility] [address] [place], [address] Eosinophil percentageOrdered By: Camille Emanuel on 07-19-2025 Eosinophils/100 WBC (Bld) 0.5 % 0-5 [facility] Erythrocyte distribution wid th ratioOrdered By: Camille Emanuel on 07-19-2025 Erythrocyte distribution width (RBC) [Ratio] 14.6 % 11.6-14.6 [facility] Erythrocyte distribution wid th standard deviationOrdered By: Camille Emanuel on 07-19-2025 Erythrocyte distribution width (RBC) [Ratio] 45.6 fl High 35.1-43.9 [facility] Glomerular filtration rate ( GFR) estimation/1.73 sq m using serum, plasma, or whole bOrdered By: Camille Emanuel on 07-19-2025 GFR/1.73 sq M.predicted among non-blacks MDRD (S/P/Bld) [Vol rate/Area] 113 mL/min/{1.73_m2} Normal >60 [facility] Comment on above: mL/min/1.73m2 CKD-EP I Creatinine Equation (2020) Result Comment: mL/m in/1.73m2 CKD-EPI Creatinine Equation (2020) Performed By: #### L 100.0100, L500.4050 ####[facility] [address] [place], [address] Hematocrit Auto (Bld) [Volum e fraction]Ordered By: Camille Emanuel on 07-19-2025 Hematocrit (Bld) [Volume fraction] 34.6 % Low 40-54 [facility] Hemoglobin measurementOrdere d By: Camille Emanuel on 07-19-2025 Hemoglobin (Bld) [Mass/Vol] 12.1 g/dL Low 13.0-16. 5 [facility] Immature granulocytes/100 WB C Auto (Bld)Ordered By: Camille Emanuel on 07-19-2025 Immature granulocytes/100 WBC (Bld) 3.800 % High 0.0-0.9 [facility] Comment on above: IG% - Immature Granu locytes (promyelocytes, myelocytes and metamyelocytes) > 1% indicates that a LEFT SHIFT is Present. MCV (mean corpuscular volume ) determinationOrdered By: Camille Emanuel on 07-19-2025 MCV (RBC) [Entitic vol] 90.3 fL 80-94 [facility] Mean corpuscular hemoglobin (MCH) determinationOrdered By: Camille Emanuel on 07-19-2025 MCH (RBC) [Entitic mass] 31.6 pg 27.0-32.0 [facility] Mean corpuscular hemoglobin concentration (MCHC) determinationOrdered By: Camille Emanuel on 07-19-2025 MCHC (RBC) [Mass/Vol] 35.0 g/dL 32-36 [facility] Mean platelet volume determi nationOrdered By: Camille Emanuel on 07-19-2025 Platelet mean volume (Bld) [Entitic vol] 9.2 fL 6.2-12.0 [facility] Monocyte percentageOrdered B y: Camille Emanuel on 07-19-2025 Monocytes/100 WBC (Bld) 10.7 % High 0-10 [facility] Neutrophil percentageOrdered By: Camille Emanuel on 07-19-2025 Neutrophils/100 WBC (Bld) 75.6 % High 47-70 [facility] Nucleated red blood cell per centageOrdered By: Camille Emanuel on 07-19-2025 Nucleated RBC/100 WBC (Bld) [Ratio] 0 % 0-5 [facility] Oncology Visit Reporton 07-10 0 Oncology Visit Report Normal [facility] Platelet countOrdered By: Dickson Emanuel on 07-19-2025 Platelets (Bld) [#/Vol] 281 10*3/uL 150-450 [facility] Potassium measurement (mass/ volume)Ordered By: Camille Emanuel on 07-19-2025 Potassium (Unsp spec) [Mass/Vol] 3.9 mmol/L 3.3-5.1 [facility] RBC Auto (Bld) [#/Vol]Ordere d By: Camille Emanuel on 07-19-2025 RBC (Bld) [#/Vol] 3.83 10*6/uL Low 4.6-6.2 [facility] Serum creatinine measurement (mass/volume)Ordered By: Camille Emanuel on 07-19-2025 Creatinine [Mass/Vol] 0.45 mg/dL Low 0.70-1.20 [facility] Comment on above: Performed By: #### L 100.0100, L500.4050 ####[facility] [address] [place], [place], [id number] Serum globulin measurementOr dered By: Camille Emanuel on 07-19-2025 Globulin (S) [Mass/Vol] 3.2 g/dL Normal 2.2-4.2 [facility] Comment on above: Performed By: #### L 100.0100, L500.4050 ####[facility] [address] [place], [place], [id number] Serum glucose measurement (m ass/volume)Ordered By: Camille Galeanoach on 07-19-2025 Glucose [Mass/Vol] 97 mg/dL Normal 70-99 [facility] Comment on above: Performed By: #### L 100.0100, L500.4050 ####[facility] [address] [place], [address] Serum or plasma alanine champagne otransferase (ALT) measurementOrdered By: Camille SimonJenae on 07-19-2025 ALT [Catalytic activity/Vol] 24 U/L Normal <=46 [facility] Comment on above: Performed By: #### L 100.0100, L500.4050 ####[facility] [address] [place], [address] Serum or plasma albumin francoise urement (mass/volume)Ordered By: Camille SimonJenae on 07-19-2025 Albumin [Mass/Vol] 3.7 g/dL Normal 3.4-4.8 [facility] Comment on above: Performed By: #### L 100.0100, L500.4050 ####[facility] [address] [place], [address] Serum or plasma albumin/glob ulin mass ratioOrdered By: Camille SimonJenae on 07-19-2025 Albumin/Globulin [Mass ratio] 1.1 {ratio} Normal 0.9-2.4 [facility] Comment on above: Performed By: #### L 100.0100, L500.4050 ####[facility] [address] [place], [address] Serum or plasma alkaline mariola sphatase measurementOrdered By: Camille SimonJenae on 07-19-2025 ALP [Catalytic activity/Vol] 186 U/L High 40-129 [facility] Serum or plasma calcium francoise urement (mass/volume)Ordered By: Camille SimonJenae on 07-19-2025 Calcium [Mass/Vol] 9.1 mg/dL Normal 7.6-11.0 [facility] Comment on above: Performed By: #### L 100.0100, L500.4050 ####[facility] [address] [place], [address] Serum or plasma urea nitroge n measurement (mass/volume)Ordered By: Camille Emanuel on 07-19-2025 Urea nitrogen [Mass/Vol] 8 mg/dL Normal 4-19 [facility] Comment on above: Performed By: #### L 100.0100, L500.4050 ####[facility] [address] [place], [address] Sodium levelOrdered By: Camille Emanuel on 07-19-2025 Sodium [Moles/Vol] 131 mmol/L Low 133-145 [facility] Comment on above: Performed By: #### L 100.0100, L500.4050 ####[facility] [address] [place], [address] Total proteinOrdered By: Lizzy Emanuel on 07-19-2025 Protein [Mass/Vol] 6.9 g/dL 5.9-8.4 [facility] White blood cell (WBC) count Ordered By: Camille Emanuel on 07-19-2025 WBC (Bld) [#/Vol] 21.3 10*3/uL High 4.4-11.0 [facility] Absolute lymphocyte countOrd ered By: Ayden Bosch on 07-05-2025 Lymphocytes Auto (Unsp spec) [#/Vol] 1.58 10*3/uL 0.83-4.51 [facility] Absolute neutrophil countOrd ered By: Ayden Bosch on 07-05-2025 Neutrophils (Bld) [#/Vol] 2.1 10*3/uL 2.0-7.7 [facility] Anion gap in Serum or Plasma Ordered By: Ayden Bosch on 07-05-2025 Anion gap [Moles/Vol] 12 mmol/L 5-15 [facility] Automated lymphocyte count a s percentage of total leukocytesOrdered By: Ayden Bosch on 07-05-2025 Lymphocytes/100 WBC Auto (Unsp spec) 29.9 % 19-41 [facility] BUN/creatinine ratioOrdered By: Ayden Bosch on 07-05-2025 Urea nitrogen/Creatinine [Mass ratio] 11.5 mg/mg 10-20 [facility] Basophil percentageOrdered B y: Ayden Danitza on 07-05-2025 Basophils/100 WBC (Bld) 0.6 % 0-1 [facility] Bilirubin, totalOrdered By: Ayden Bosch on 07-05-2025 Bilirubin [Mass/Vol] 0.82 mg/dL 0.00-1.30 [facility] Blood manual differential co mment interpretation (narrative result)Ordered By: Ayden Bosch on 07-05-2025 Manual differential comment Agapito (Bld) [Interp] COMMENT [facility] Comment on above: MONOCYTOSIS. CBC W/Diff, Automatedon 06-10 ATYPICAL LYMPH 1+ Normal [facility] Comment on above: Performed By: #### L 500.4050, L501.2300, L100.0100, L501.9520 ####[facility] [address] [place], [address] SMEAR COMMENT COMMENT Normal [facility] Comment on above: Result Comment: MONO CYTOSIS. Performed By: #### L 500.4050, L501.2300, L100.0100, L501.9520 ####[facility] [address] [place], [address] Carbon dioxide, total [Moles /volume] in Central venous bloodOrdered By: Ayden Bosch on 07-05-2025 CO2 [Moles/Vol] 22.4 mmol/L 21.0-32.0 [facility] Chloride assayOrdered By: Terra Bosch on 07-05-2025 Chloride [Moles/Vol] 99 mmol/L 98-108 [facility] Comprehensive Metabolic Prof ilon 07-05-2025 Albumin [Mass/Vol] 3.7 g/dL Normal 3.4-4.8 [facility] Comment on above: Performed By: #### L 500.4050, L501.2300, L100.0100, L501.9520 ####[facility] [address] [place], [address] Albumin/Globulin [Mass ratio] 1.1 {ratio} Normal 0.9-2.4 [facility] Comment on above: Performed By: #### L 500.4050, L501.2300, L100.0100, L501.9520 ####[facility] [address] [place], [address] ALK PHOS 124 U/L Normal 40-129 [facility] Comment on above: Performed By: #### L 500.4050, L501.2300, L100.0100, L501.9520 ####[facility] [address] [place], [address] ALT [Catalytic activity/Vol] 35 U/L Normal <=46 [facility] Comment on above: Performed By: #### L 500.4050, L501.2300, L100.0100, L501.9520 ####[facility] [address] [place], [address] AST [Catalytic activity/Vol] 40 U/L High <=37 [facility] Comment on above: Performed By: #### L 500.4050, L501.2300, L100.0100, L501.9520 ####[facility] [address] [place], [address] Bilirubin [Mass/Vol] 0.82 mg/dL Normal 0.00-1.30 [facility] Comment on above: Performed By: #### L 500.4050, L501.2300, L100.0100, L501.9520 ####[facility] [address] [place], [address] BUN/CRE 11.5 RATIO Normal 10-20 [facility] Comment on above: Performed By: #### L 500.4050, L501.2300, L100.0100, L501.9520 ####[facility] [address] [place], [address] Calcium [Mass/Vol] 9.2 mg/dL Normal 7.6-11.0 [facility] Comment on above: Performed By: #### L 500.4050, L501.2300, L100.0100, L501.9520 ####[facility] [address] [place], [address] Chloride [Moles/Vol] 99 mmol/L Normal 98-108 [facility] Comment on above: Performed By: #### L 500.4050, L501.2300, L100.0100, [id number] ####[facility] [address] [place], [address] CO2 [Moles/Vol] 22.4 mmol/L Normal 21.0-32.0 [facility] Comment on above: Performed By: #### L 500.4050, L501.2300, L100.0100, L501.9520 ####[facility] [address] [place], [address] Creatinine [Mass/Vol] 0.68 mg/dL Low 0.70-1.20 [facility] Comment on above: Performed By: #### L 500.4050, L501.2300, L100.0100, L501.9520 ####[facility] [address] [place], [address] ECRCL 57.60 ml/min Normal 50-250 [facility] Comment on above: Performed By: #### L 500.4050, L501.2300, L100.0100, [id number] ####[facility] [address] [place], [address] GAP 12 Normal 5-15 [facility] Comment on above: Performed By: #### L 500.4050, L501.2300, L100.0100, L501.9520 ####[facility] [address] [place], [address] GFR/1.73 sq M.predicted among non-blacks MDRD (S/P/Bld) [Vol rate/Area] 100 mL/min/{1.73_m2} Normal >60 [facility] Comment on above: Result Comment: mL/m in/1.73m2 CKD-EPI Creatinine Equation (2020) Performed By: #### L 500.4050, L501.2300, L100.0100, L501.9520 ####[facility] [address] [place], [address] Globulin (S) [Mass/Vol] 3.5 g/dL Normal 2.2-4.2 [facility] Comment on above: Performed By: #### L 500.4050, L501.2300, L100.0100, L501.9520 ####[facility] [address] [place], [address] Glucose [Mass/Vol] 119 mg/dL High 70-99 [facility] Comment on above: Performed By: #### L 500.4050, L501.2300, L100.0100, L501.9520 ####[facility] [address] [place], [address] Potassium [Moles/Vol] 3.9 mmol/L Normal 3.3-5.1 [facility] Comment on above: Performed By: #### L 500.4050, L501.2300, L100.0100, L501.9520 ####[facility] [address] [place], [address] Sodium [Moles/Vol] 134 mmol/L Normal 133-145 [facility] Comment on above: Performed By: #### L 500.4050, L501.2300, L100.0100, L501.9520 ####[facility] [address] [place], [address] T PROT 7.2 g/dL Normal 5.9-8.4 [facility] Comment on above: Performed By: #### L 500.4050, L501.2300, L100.0100, L501.9520 ####[facility] [address] [place], [address] Urea nitrogen [Mass/Vol] 8 mg/dL Normal 4-19 [facility] Comment on above: Performed By: #### L 500.4050, L501.2300, L100.0100, L501.9520 ####[facility] [address] [place], [address] Eosinophil percentageOrdered By: Ayden Bosch on 07-05-2025 Eosinophils/100 WBC (Bld) 1.3 % 0-5 [facility] Erythrocyte distribution wid th ratioOrdered By: Ayden Bosch on 07-05-2025 Erythrocyte distribution width (RBC) [Ratio] 13.5 % 11.6-14.6 [facility] Erythrocyte distribution wid th standard deviationOrdered By: Ayden Bosch on 07-05-2025 Erythrocyte distribution width (RBC) [Ratio] 42.8 fl 35.1-43.9 [facility] Glomerular filtration rate ( GFR) estimation/1.73 sq m using serum, plasma, or whole bOrdered By: Ayden Bosch on 07-05-2025 GFR/1.73 sq M.predicted among non-blacks MDRD (S/P/Bld) [Vol rate/Area] 100 mL/min/{1.73_m2} >60 [facility] Comment on above: mL/min/1.73m2 CKD-EP I Creatinine Equation (2020) Hematocrit Auto (Bld) [Volum e fraction]Ordered By: Ayden Bosch on 07-05-2025 Hematocrit (Bld) [Volume fraction] 35.3 % Low 40-54 [facility] Hemoglobin measurementOrdere d By: Ayden Bosch on 07-05-2025 Hemoglobin (Bld) [Mass/Vol] 12.7 g/dL Low 13.0-16. 5 [facility] Immature granulocytes/100 WB C Auto (Bld)Ordered By: Ayden Bosch on 07-05-2025 Immature granulocytes/100 WBC (Bld) 0.400 % 0.0-0.9 [facility] Comment on above: IG% - Immature Granu locytes (promyelocytes, myelocytes and metamyelocytes) > 1% indicates that a LEFT SHIFT is Present. Laboratory - Chemistry and C hemistry - challengeOrdered By: Ayden Bosch on 07-05-2025 AST [Catalytic activity/Vol] 40 U/L High <38 [facility] MCV (mean corpuscular volume ) determinationOrdered By: Ayden Bosch on 07-05-2025 MCV (RBC) [Entitic vol] 88.3 fL 80-94 [facility] Mean corpuscular hemoglobin (MCH) determinationOrdered By: Ayden Bosch on 07-05-2025 MCH (RBC) [Entitic mass] 31.8 pg 27.0-32.0 [facility] Mean corpuscular hemoglobin concentration (MCHC) determinationOrdered By: Ayden Bosch on 07-05-2025 MCHC (RBC) [Mass/Vol] 36.0 g/dL 32-36 [facility] Mean platelet volume determi nationOrdered By: Ayden Bosch on 07-05-2025 Platelet mean volume (Bld) [Entitic vol] 8.8 fL 6.2-12.0 [facility] Monocyte percentageOrdered B y: Ayden oBsch on 07-05-2025 Monocytes/100 WBC (Bld) 28.5 % High 0-10 [facility] Neutrophil percentageOrdered By: Ayden Bosch on 07-05-2025 Neutrophils/100 WBC (Bld) 39.3 % Low 47-70 [facility] Nucleated red blood cell per centageOrdered By: Ayden Bosch on 07-05-2025 Nucleated RBC/100 WBC (Bld) [Ratio] 0 % 0-5 [facility] Oncology Visit Reporton 06-10 Oncology Visit Report Normal [facility] Phosphoruson 07-05-2025 Phosphate [Mass/Vol] 3.0 mg/dL Normal 2.7-4.5 [facility] Comment on above: Performed By: #### L 500.4050, L501.2300, L100.0100, L501.9520 ####[facility] [address] [place], [address] Platelet countOrdered By: Terra Bosch on 07-05-2025 Platelets (Bld) [#/Vol] 448 10*3/uL 150-450 [facility] Potassium measurement (mass/ volume)Ordered By: Ayden Bosch on 07-05-2025 Potassium (Unsp spec) [Mass/Vol] 3.9 mmol/L 3.3-5.1 [facility] RBC Auto (Bld) [#/Vol]Ordere d By: Ayden Bosch on 07-05-2025 RBC (Bld) [#/Vol] 4.00 10*6/uL Low 4.6-6.2 [facility] Serum creatinine measurement (mass/volume)Ordered By: Ayden Bosch on 07-05-2025 Creatinine [Mass/Vol] 0.68 mg/dL Low 0.70-1.20 [facility] Serum globulin measurementOr dered By: Ayden Bosch on 07-05-2025 Globulin (S) [Mass/Vol] 3.5 g/dL 2.2-4.2 [facility] Serum glucose measurement (m ass/volume)Ordered By: Ayden Bosch on 07-05-2025 Glucose [Mass/Vol] 119 mg/dL High 70-99 [facility] Serum or plasma alanine champagne otransferase (ALT) measurementOrdered By: Ayden Bosch on 07-05-2025 ALT [Catalytic activity/Vol] 35 U/L <47 [facility] Serum or plasma albumin franciose urement (mass/volume)Ordered By: Ayden Bosch on 07-05-2025 Albumin [Mass/Vol] 3.7 g/dL 3.4-4.8 [facility] Serum or plasma albumin/glob ulin mass ratioOrdered By: Ayden Bosch on 07-05-2025 Albumin/Globulin [Mass ratio] 1.1 {ratio} 0.9-2.4 [facility] Serum or plasma alkaline mariola sphatase measurementOrdered By: Ayden Bosch on 07-05-2025 ALP [Catalytic activity/Vol] 124 U/L 40-129 [facility] Serum or plasma calcium francoise urement (mass/volume)Ordered By: Ayden Bosch on 07-05-2025 Calcium [Mass/Vol] 9.2 mg/dL 7.6-11.0 [facility] Serum or plasma urea nitroge n measurement (mass/volume)Ordered By: Ayden Bosch on 07-05-2025 Urea nitrogen [Mass/Vol] 8 mg/dL 4-19 [facility] Sodium levelOrdered By: Cam Bosch on 07-05-2025 Sodium [Moles/Vol] 134 mmol/L 133-145 [facility] TSH DL <= 0.005 mIU/L QnOrde red By: Ayden Bosch on 07-05-2025 TSH Qn 1.890 uIU/mL 0.300-4.20 0 [facility] Thyroid Stim Hormone (TSH)on 07-05-2025 TSH 1.890 uIU/mL Normal 0.300-4.20 0 [facility] Comment on above: Performed By: #### L 500.4050, L501.2300, L100.0100, L501.9520 ####[facility] [address] [place], [place], [address] Total proteinOrdered By: Ramón Bosch on 07-05-2025 Protein [Mass/Vol] 7.2 g/dL 5.9-8.4 [facility] White blood cell (WBC) count Ordered By: Ayden Bosch on 07-05-2025 WBC (Bld) [#/Vol] 5.3 10*3/uL 4.4-11.0 [facility] Absolute lymphocyte countOrd ered By: Ayden Bosch on 06-29-2025 Lymphocytes Auto (Unsp spec) [#/Vol] 1.25 10*3/uL 0.83-4.51 [facility] Absolute neutrophil countOrd ered By: Ayden Bosch on 06-29-2025 Neutrophils (Bld) [#/Vol] 1.2 10*3/uL Low 2.0-7.7 [facility] Anion gap in Serum or Plasma Ordered By: Ayden Bosch on 06-29-2025 Anion gap [Moles/Vol] 13 mmol/L 5-15 [facility] Automated lymphocyte count a s percentage of total leukocytesOrdered By: Ayden Bosch on 06-29-2025 Lymphocytes/100 WBC Auto (Unsp spec) 39.9 % 19-41 [facility] BUN/creatinine ratioOrdered By: Ayden Bosch on 06-29-2025 Urea nitrogen/Creatinine [Mass ratio] 13.6 mg/mg 10-20 [facility] Basophil percentageOrdered B y: Ayden Bosch on 06-29-2025 Basophils/100 WBC (Bld) 0.6 % 0-1 [facility] Bilirubin, totalOrdered By: Ayden Bosch on 06-29-2025 Bilirubin [Mass/Vol] 0.79 mg/dL 0.00-1.30 [facility] Blood manual differential co mment interpretation (narrative result)Ordered By: Ayden Bosch on 06-29-2025 Manual differential comment Agapito (Bld) [Interp] COMMENT [facility] Comment on above: LYMPHOPENIA. CBC W/Diff, Automatedon 06-10 Anisocytosis Ql (Bld) 1+ Normal [facility] Comment on above: Performed By: #### L 504.2610, L100.0100, L500.4050 ####[facility] [address] [place], [address] SMEAR COMMENT COMMENT Normal [facility] Comment on above: Result Comment: LYMP HOPENIA. Performed By: #### L 504.2610, L100.0100, L500.4050 ####[facility] [address] [place], [address] Carbon dioxide, total [Moles /volume] in Central venous bloodOrdered By: Ayden Bosch on 06-29-2025 CO2 [Moles/Vol] 22.9 mmol/L 21.0-32.0 [facility] Chloride assayOrdered By: Terra Bosch on 06-29-2025 Chloride [Moles/Vol] 97 mmol/L Low 98-108 [facility] Comprehensive Metabolic Prof ilon 06-29-2025 Albumin [Mass/Vol] 3.9 g/dL Normal 3.4-4.8 [facility] Comment on above: Performed By: #### L 504.2610, L100.0100, L500.4050 ####[facility] [address] [place], [address] Albumin/Globulin [Mass ratio] 1.2 {ratio} Normal 0.9-2.4 [facility] Comment on above: Performed By: #### L 504.2610, L100.0100, L500.4050 ####[facility] [address] [place], [address] ALK PHOS 126 U/L Normal 40-129 [facility] Comment on above: Performed By: #### L 504.2610, L100.0100, L500.4050 ####[facility] [address] [place], [address] ALT [Catalytic activity/Vol] 51 U/L High <=46 [facility] Comment on above: Performed By: #### L 504.2610, L100.0100, L500.4050 ####[facility] [address] [place], [address] AST [Catalytic activity/Vol] 55 U/L High <=37 [facility] Comment on above: Performed By: #### L 504.2610, L100.0100, L500.4050 ####[facility] [address] [place], [address] Bilirubin [Mass/Vol] 0.79 mg/dL Normal 0.00-1.30 [facility] Comment on above: Performed By: #### L 504.2610, L100.0100, L500.4050 ####[facility] [address] [place], [address] BUN/CRE 13.6 RATIO Normal 10-20 [facility] Comment on above: Performed By: #### L 504.2610, L100.0100, L500.4050 ####[facility] [facility] [address] [place], [address] Calcium [Mass/Vol] 9.2 mg/dL Normal 7.6-11.0 [facility] Comment on above: Performed By: #### L 504.2610, L100.0100, L500.4050 ####[facility] [address] [place], [address] Chloride [Moles/Vol] 97 mmol/L Low 98-108 [facility] Comment on above: Performed By: #### L 504.2610, L100.0100, L500.4050 ####[facility] [address] [place], [address] CO2 [Moles/Vol] 22.9 mmol/L Normal 21.0-32.0 [facility] Comment on above: Performed By: #### L 504.2610, L100.0100, L500.4050 ####[facility] [address] [place], [address] Creatinine [Mass/Vol] 0.54 mg/dL Low 0.70-1.20 [facility] Comment on above: Performed By: #### L 504.2610, L100.0100, L500.4050 ####[facility] [address] [place], [address] ECRCL 58.43 ml/min Normal 50-250 [facility] Comment on above: Performed By: #### L 504.2610, L100.0100, L500.4050 ####[facility] [address] [place], [address] GAP 13 Normal 5-15 [facility] Comment on above: Performed By: #### L 504.2610, L100.0100, L500.4050 ####[facility] [address] [place], [address] GFR/1.73 sq M.predicted among non-blacks MDRD (S/P/Bld) [Vol rate/Area] 107 mL/min/{1.73_m2} Normal >60 [facility] Comment on above: Result Comment: mL/m in/1.73m2 CKD-EPI Creatinine Equation (2020) Performed By: #### L 504.2610, L100.0100, L500.4050 ####[facility] [address] [place], [address] Globulin (S) [Mass/Vol] 3.2 g/dL Normal 2.2-4.2 [facility] Comment on above: Performed By: #### L 504.2610, L100.0100, L500.4050 ####[facility] [address] [place], [address] Glucose [Mass/Vol] 101 mg/dL High 70-99 [facility] Comment on above: Performed By: #### L 504.2610, L100.0100, L500.4050 ####[facility] [address] [place], [address] Potassium [Moles/Vol] 3.9 mmol/L Normal 3.3-5.1 [facility] Comment on above: Performed By: #### L 504.2610, L100.0100, L500.4050 ####[facility] [address] [place], [address] Sodium [Moles/Vol] 132 mmol/L Low 133-145 [facility] Comment on above: Performed By: #### L 504.2610, L100.0100, L500.4050 ####[facility] [address] [place], [address] T PROT 7.1 g/dL Normal 5.9-8.4 [facility] Comment on above: Performed By: #### L 504.2610, L100.0100, L500.4050 ####[facility] [address] [place], [address] Urea nitrogen [Mass/Vol] 7 mg/dL Normal 4-19 [facility] Comment on above: Performed By: #### L 504.2610, L100.0100, L500.4050 ####[facility] [address] [place], [address] Eosinophil percentageOrdered By: Ayden Bosch on 06-29-2025 Eosinophils/100 WBC (Bld) 1.9 % 0-5 [facility] Erythrocyte distribution wid th ratioOrdered By: Ayden Bosch on 06-29-2025 Erythrocyte distribution width (RBC) [Ratio] 12.4 % 11.6-14.6 [facility] Erythrocyte distribution wid th standard deviationOrdered By: Ayden Bosch on 06-29-2025 Erythrocyte distribution width (RBC) [Ratio] 39.4 fl 35.1-43.9 [facility] Glomerular filtration rate ( GFR) estimation/1.73 sq m using serum, plasma, or whole bOrdered By: Ayden Bosch on 06-29-2025 GFR/1.73 sq M.predicted among non-blacks MDRD (S/P/Bld) [Vol rate/Area] 107 mL/min/{1.73_m2} >60 [facility] Comment on above: mL/min/1.73m2 CKD-EP I Creatinine Equation (2020) Hematocrit Auto (Bld) [Volum e fraction]Ordered By: Ayden Bosch on 06-29-2025 Hematocrit (Bld) [Volume fraction] 35.5 % Low 40-54 [facility] Hemoglobin measurementOrdere d By: Ayden Bosch on 06-29-2025 Hemoglobin (Bld) [Mass/Vol] 12.6 g/dL Low 13.0-16. 5 [facility] Immature granulocytes/100 WB C Auto (Bld)Ordered By: Ayden Bosch on 06-29-2025 Immature granulocytes/100 WBC (Bld) 0.300 % 0.0-0.9 [facility] Comment on above: IG% - Immature Granu locytes (promyelocytes, myelocytes and metamyelocytes) > 1% indicates that a LEFT SHIFT is Present. LDHon 06-29-2025 LDH 208 U/L Normal 87-241 [facility] Comment on above: Order Comment: 1 Performed By: #### L 504.2610, L100.0100, L500.4050 ####[facility] [address] [place], [address] Laboratory - Chemistry and C hemistry - challengeOrdered By: Ayden Bosch on 06-29-2025 AST [Catalytic activity/Vol] 55 U/L High <38 [facility] Laboratory - Hematology and Cell countsOrdered By: Ayden Bosch on 06-29-2025 Anisocytosis Ql (Bld) 1+ [facility] Lactate dehydrogenase (LDH) measurementOrdered By: Ayden Bosch on 06-29-2025 LDH [Catalytic activity/Vol] 208 U/L 87-241 [facility] MCV (mean corpuscular volume ) determinationOrdered By: Ayden Bosch on 06-29-2025 MCV (RBC) [Entitic vol] 88.3 fL 80-94 [facility] Mean corpuscular hemoglobin (MCH) determinationOrdered By: Ayden Bosch on 06-29-2025 MCH (RBC) [Entitic mass] 31.3 pg 27.0-32.0 [facility] Mean corpuscular hemoglobin concentration (MCHC) determinationOrdered By: Ayedn Bosch on 06-29-2025 MCHC (RBC) [Mass/Vol] 35.5 g/dL 32-36 [facility] Mean platelet volume determi nationOrdered By: Ayden Bosch on 06-29-2025 Platelet mean volume (Bld) [Entitic vol] 9.2 fL 6.2-12.0 [facility] Monocyte percentageOrdered B y: Ayden Bosch on 06-29-2025 Monocytes/100 WBC (Bld) 19.2 % High 0-10 [facility] Neutrophil percentageOrdered By: Ayden Bosch on 08-21-2025 Neutrophils/100 WBC (Bld) 38.1 % Low 47-70 [facility] Nucleated red blood cell per centageOrdered By: Ayden Bosch on 06-29-2025 Nucleated RBC/100 WBC (Bld) [Ratio] 0 % 0-5 [facility] Oncology Visit Reporton 08 Oncology Visit Report Normal [facility] Platelet countOrdered By: Terra Bosch on 06-29-2025 Platelets (Bld) [#/Vol] 191 10*3/uL 150-450 [facility] Potassium measurement (mass/ volume)Ordered By: Ayden Bosch on 06-29-2025 Potassium (Unsp spec) [Mass/Vol] 3.9 mmol/L 3.3-5.1 [facility] RBC Auto (Bld) [#/Vol]Ordere d By: Ayden Bosch on 06-29-2025 RBC (Bld) [#/Vol] 4.02 10*6/uL Low 4.6-6.2 [facility] Serum creatinine measurement (mass/volume)Ordered By: Ayden Bosch on 06-29-2025 Creatinine [Mass/Vol] 0.54 mg/dL Low 0.70-1.20 [facility] Serum globulin measurementOr dered By: Ayden Bosch on 06-29-2025 Globulin (S) [Mass/Vol] 3.2 g/dL 2.2-4.2 [facility] Serum glucose measurement (m ass/volume)Ordered By: Ayden Bosch on 06-29-2025 Glucose [Mass/Vol] 101 mg/dL High 70-99 [facility] Serum or plasma alanine champagne otransferase (ALT) measurementOrdered By: Ayden Bosch on 06-29-2025 ALT [Catalytic activity/Vol] 51 U/L High <47 [facility] Serum or plasma albumin francoise urement (mass/volume)Ordered By: Ayden Bosch on 06-29-2025 Albumin [Mass/Vol] 3.9 g/dL 3.4-4.8 [facility] Serum or plasma albumin/glob ulin mass ratioOrdered By: Ayden Bosch on 06-29-2025 Albumin/Globulin [Mass ratio] 1.2 {ratio} 0.9-2.4 [facility] Serum or plasma alkaline mariola sphatase measurementOrdered By: Ayden Bosch on 06-29-2025 ALP [Catalytic activity/Vol] 126 U/L 40-129 [facility] Serum or plasma calcium francoise urement (mass/volume)Ordered By: Ayden Bosch on 06-29-2025 Calcium [Mass/Vol] 9.2 mg/dL 7.6-11.0 [facility] Serum or plasma urea nitroge n measurement (mass/volume)Ordered By: Ayden Bosch on 06-29-2025 Urea nitrogen [Mass/Vol] 7 mg/dL 4-19 [facility] Sodium levelOrdered By: Cam Bosch on 06-29-2025 Sodium [Moles/Vol] 132 mmol/L Low 133-145 [facility] Total proteinOrdered By: Ramón Bosch on 06-29-2025 Protein [Mass/Vol] 7.1 g/dL 5.9-8.4 [facility] White blood cell (WBC) count Ordered By: Ayden Bosch on 06-29-2025 WBC (Bld) [#/Vol] 3.1 10*3/uL Low 4.4-11.0 [facility] Absolute lymphocyte countOrd ered By: Ayden Bosch on 06-14-2025 Lymphocytes Auto (Unsp spec) [#/Vol] 0.97 10*3/uL 0.83-4.51 [facility] Absolute neutrophil countOrd ered By: Ayden Bosch on 06-14-2025 Neutrophils (Bld) [#/Vol] 11.8 10*3/uL High 2.0-7.7 [facility] Anion gap in Serum or Plasma Ordered By: Ayden Bosch on 06-14-2025 Anion gap [Moles/Vol] 11 mmol/L 5-15 [facility] Automated lymphocyte count a s percentage of total leukocytesOrdered By: Ayden Bosch on 06-14-2025 Lymphocytes/100 WBC Auto (Unsp spec) 7.0 % Low 19-41 [facility] BUN/creatinine ratioOrdered By: Ayden Bosch on 06-14-2025 Urea nitrogen/Creatinine [Mass ratio] 23.7 mg/mg High 10-20 [facility] Basophil percentageOrdered B y: Ayden Bosch on 06-14-2025 Basophils/100 WBC (Bld) 0.2 % 0-1 [facility] Bilirubin, totalOrdered By: Ayden Bosch on 06-14-2025 Bilirubin [Mass/Vol] 0.77 mg/dL 0.00-1.30 [facility] CBC W/Diff, Automatedon Absolute Lymph 0.97 X10 3/uL Normal 0.83-4.51 [facility] Comment on above: Performed By: #### L 100.0100, L501.9520, L501.2300, L500.4050 ####[facility] [address] [place], [address] Absolute Neut 11.8 X10 3/uL High 2.0-7.7 [facility] Comment on above: Performed By: #### L 100.0100, L501.9520, L501.2300, L500.4050 ####[facility] [address] [place], [address] Basophils/100 WBC (Bld) 0.2 % Normal 0-1 [facility] Comment on above: Performed By: #### L 100.0100, L501.9520, L501.2300, L500.4050 ####[facility] [address] [place], [address] Eosinophils/100 WBC (Bld) 0.0 % Normal 0-5 [facility] Comment on above: Performed By: #### L 100.0100, L501.9520, L501.2300, L500.4050 ####[facility] [address] [place], [address] Erythrocyte distribution width (RBC) [Ratio] 13.0 % Normal 11.6-14.6 [facility] Comment on above: Performed By: #### L 100.0100, L501.9520, L501.2300, L500.4050 ####[facility] [address] [place], [address] Hematocrit (Bld) [Volume fraction] 40.3 % Normal 40-54 [facility] Comment on above: Performed By: #### L 100.0100, L501.9520, L501.2300, L500.4050 ####[facility] [address] [place], [address] Hemoglobin (Bld) [Mass/Vol] 14.2 g/dL Normal 13.0-16. 5 [facility] Comment on above: Performed By: #### L 100.0100, L501.9520, L501.2300, L500.4050 ####[facility] [address] [place], [address] IG% 0.600 Normal 0.0-0.9 [facility] Comment on above: Result Comment: IG% - Immature Granulocytes (promyelocytes, myelocytes andmetamyelocytes) > 1% indicates that a LEFT SHIFT is Present. Performed By: #### L 100.0100, L501.9520, L501.2300, L500.4050 ####[facility] [address] [place], [address] Lymphocytes/100 WBC (Bld) 7.0 % Low 19-41 [facility] Comment on above: Performed By: #### L 100.0100, L501.9520, L501.2300, L500.4050 ####[facility] [address] [place], [address] MCH (RBC) [Entitic mass] 31.0 pg Normal 27.0-32.0 [facility] Comment on above: Performed By: #### L 100.0100, L501.9520, L501.2300, L500.4050 ####[facility] [address] [place], [address] MCHC (RBC) [Mass/Vol] 35.2 g/dL Normal 32-36 [facility] Comment on above: Performed By: #### L 100.0100, L501.9520, L501.2300, L500.4050 ####[facility] [address] [place], [address] MCV (RBC) [Entitic vol] 88.0 fL Normal 80-94 [facility] Comment on above: Performed By: #### L 100.0100, L501.9520, L501.2300, L500.4050 ####[facility] [address] [place], [address] Monocytes/100 WBC (Bld) 6.7 % Normal 0-10 [facility] Comment on above: Performed By: #### L 100.0100, L501.9520, L501.2300, L500.4050 ####[facility] [address] [place], [address] Neutrophils/100 WBC (Bld) 85.5 % High 47-70 [facility] Comment on above: Performed By: #### L 100.0100, L501.9520, L501.2300, L500.4050 ####[facility] [address] [place], [address] Nucleated RBC (Bld) [#/Vol] 0 10*3/uL Normal 0-5 [facility] Comment on above: Performed By: #### L 100.0100, L501.9520, L501.2300, L500.4050 ####[facility] [address] [place], [address] Platelet mean volume (Bld) [Entitic vol] 9.8 fL Normal 6.2-12.0 [facility] Comment on above: Performed By: #### L 100.0100, L501.9520, L501.2300, L500.4050 ####[facility] [address] [place], [address] Platelets (Bld) [#/Vol] 321 10*3/uL Normal 150-450 [facility] Comment on above: Performed By: #### L 100.0100, L501.9520, L501.2300, L500.4050 ####[facility] [address] [place], [address] RBC (Bld) [#/Vol] 4.58 10*6/uL Low 4.6-6.2 [facility] Comment on above: Performed By: #### L 100.0100, L501.9520, L501.2300, L500.4050 ####[facility] [address] [place], [address] RDW SD 41.5 fl Normal 35.1-43.9 [facility] Comment on above: Performed By: #### L 100.0100, L501.9520, L501.2300, L500.4050 ####[facility] [address] [place], [address] WBC (Bld) [#/Vol] 13.8 10*3/uL High 4.4-11.0 [facility] Comment on above: Performed By: #### L 100.0100, L501.9520, L501.2300, L500.4050 ####[facility] [address] [place], [address] Absolute Neut Normal 2.0-7.7 [facility] Comment on above: Result Comment: DUPL ICATE ORDER, COMPLETED @06/14/25755 Performed By: #### L 100.0100, L500.4050 ####[facility] [address] [place], [address] HCT Normal 40-54 [facility] Comment on above: Result Comment: DUPL ICATE ORDER, COMPLETED @06/14/25 0756 Performed By: #### L 100.0100, L500.4050 ####[facility] [address] [place], [address] HGB Normal 13.0-16.5 [facility] Comment on above: Result Comment: DUPL ICATE ORDER, COMPLETED @06/14/256 Performed By: #### L 100.0100, L500.4050 ####[facility] [address] [place], [address] MCH Normal 27.0-32.0 [facility] Comment on above: Result Comment: DUPL ICATE ORDER, COMPLETED @06/14/25755 Performed By: #### L 100.0100, L500.4050 ####[facility] [address] [place], [address] MCHC Normal 32-36 [facility] Comment on above: Result Comment: DUPL ICATE ORDER, COMPLETED @06/14/25755 Performed By: #### L 100.0100, L500.4050 ####[facility] [address] [place], [address] MCV Normal 80-94 [facility] Comment on above: Result Comment: DUPL ICATE ORDER, COMPLETED @06/14/25755 Performed By: #### L 100.0100, L500.4050 ####[facility] [address] [place], [address] NEUT% Normal 47-70 [facility] Comment on above: Result Comment: DUPL ICATE ORDER, COMPLETED @06/14/25755 Performed By: #### L 100.0100, L500.4050 ####[facility] [address] [place], [address] PLT Normal 150-450 [facility] Comment on above: Result Comment: DUPL ICATE ORDER, COMPLETED @06/14/25755 Performed By: #### L 100.0100, L500.4050 ####[facility] [address] [place], [address] RBC Normal 4.6-6.2 [facility] Comment on above: Result Comment: DUPL ICATE ORDER, COMPLETED @06/14/25755 Performed By: #### L 100.0100, L500.4050 ####[facility] [address] [place], [address] RDW CV Normal 11.6-14.6 [facility] Comment on above: Result Comment: DUPL ICATE ORDER, COMPLETED @06/14/25755 Performed By: #### L 100.0100, L500.4050 ####[facility] [address] [place], [address] RDW SD Normal 35.1-43.9 [facility] Comment on above: Result Comment: DUPL ICATE ORDER, COMPLETED @06/14/25755 Performed By: #### L 100.0100, L500.4050 ####[facility] [address] [place], [address] WBC Normal 4.4-11.0 [facility] Comment on above: Result Comment: DUPL ICATE ORDER, COMPLETED @06/14/25755 Performed By: #### L 100.0100, L500.4050 ####[facility] [address] [place], [address] Carbon dioxide, total [Moles /volume] in Central venous bloodOrdered By: Ayden Bosch on 06-14-2025 CO2 [Moles/Vol] 22.3 mmol/L 21.0-32.0 [facility] Chloride assayOrdered By: Terra Bosch on 06-14-2025 Chloride [Moles/Vol] 95 mmol/L Low 98-108 [facility] Comprehensive Metabolic Prof ilon 06-14-2025 Albumin [Mass/Vol] 3.8 g/dL Normal 3.4-4.8 [facility] Comment on above: Performed By: #### L 100.0100, L501.9520, L501.2300, L500.4050 ####[facility] [address] [place], [address] Albumin/Globulin [Mass ratio] 1.1 {ratio} Normal 0.9-2.4 [facility] Comment on above: Performed By: #### L 100.0100, L501.9520, L501.2300, L500.4050 ####[facility] [address] [place], [address] ALK PHOS 99 U/L Normal 40-129 [facility] Comment on above: Performed By: #### L 100.0100, L501.9520, L501.2300, L500.4050 ####[facility] [address] [place], [address] ALT [Catalytic activity/Vol] 21 U/L Normal <=46 [facility] Comment on above: Performed By: #### L 100.0100, L501.9520, L501.2300, L500.4050 ####[facility] [address] [place], [address] AST [Catalytic activity/Vol] 31 U/L Normal <=37 [facility] Comment on above: Performed By: #### L 100.0100, L501.9520, L501.2300, L500.4050 ####[facility] [address] [place], [address] Bilirubin [Mass/Vol] 0.77 mg/dL Normal 0.00-1.30 [facility] Comment on above: Performed By: #### L 100.0100, L501.9520, L501.2300, L500.4050 ####[facility] [address] [place], [address] BUN/CRE 23.7 RATIO High 10-20 [facility] Comment on above: Performed By: #### L 100.0100, L501.9520, L501.2300, L500.4050 ####[facility] [address] [place], [address] Calcium [Mass/Vol] 9.3 mg/dL Normal 7.6-11.0 [facility] Comment on above: Performed By: #### L 100.0100, L501.9520, L501.2300, L500.4050 ####[facility] [address] [place], [address] Chloride [Moles/Vol] 95 mmol/L Low 98-108 [facility] Comment on above: Performed By: #### L 100.0100, L501.9520, L501.2300, L500.4050 ####[facility] [address] [place], [address] CO2 [Moles/Vol] 22.3 mmol/L Normal 21.0-32.0 [facility] Comment on above: Performed By: #### L 100.0100, L501.9520, L501.2300, L500.4050 ####[facility] [address] [place], [address] Creatinine [Mass/Vol] 0.55 mg/dL Low 0.70-1.20 [facility] Comment on above: Performed By: #### L 100.0100, L501.9520, L501.2300, L500.4050 ####[facility] [address] [place], [address] ECRCL 57.54 ml/min Normal 50-250 [facility] Comment on above: Performed By: #### L 100.0100, L501.9520, L501.2300, L500.4050 ####[facility] [address] [place], [address] GAP 11 Normal 5-15 [facility] Comment on above: Performed By: #### L 100.0100, L501.9520, L501.2300, L500.4050 ####[facility] [address] [place], [address] GFR/1.73 sq M.predicted among non-blacks MDRD (S/P/Bld) [Vol rate/Area] 107 mL/min/{1.73_m2} Normal >60 [facility] Comment on above: Result Comment: mL/m in/1.73m2 CKD-EPI Creatinine Equation (2020) Performed By: #### L 100.0100, L501.9520, L501.2300, L500.4050 ####[facility] [address] [place], [address] Globulin (S) [Mass/Vol] 3.5 g/dL Normal 2.2-4.2 [facility] Comment on above: Performed By: #### L 100.0100, L501.9520, L501.2300, L500.4050 ####[facility] [address] [place], [address] Glucose [Mass/Vol] 116 mg/dL High 70-99 [facility] Comment on above: Performed By: #### L 100.0100, L501.9520, L501.2300, L500.4050 ####[facility] [address] [place], [address] Potassium [Moles/Vol] 4.1 mmol/L Normal 3.3-5.1 [facility] Comment on above: Performed By: #### L 100.0100, L501.9520, L501.2300, L500.4050 ####[facility] [address] [place], [address] Sodium [Moles/Vol] 128 mmol/L Low 133-145 [facility] Comment on above: Performed By: #### L 100.0100, L501.9520, L501.2300, L500.4050 ####[facility] [facility] [address] [place], [address] T PROT 7.3 g/dL Normal 5.9-8.4 [facility] Comment on above: Performed By: #### L 100.0100, L501.9520, L501.2300, L500.4050 ####[facility] [address] [place], [address] Urea nitrogen [Mass/Vol] 13 mg/dL Normal 4-19 [facility] Comment on above: Performed By: #### L 100.0100, L501.9520, L501.2300, L500.4050 ####[facility] [address] [place], [address] ALB Normal 3.4-4.8 [facility] Comment on above: Result Comment: DUPL ICATE ORDER, COMPLETED @06/14/25755 Performed By: #### L 100.0100, L500.4050 ####[facility] [address] [place], [address] ALK PHOS Normal 40-129 [facility] Comment on above: Result Comment: DUPL ICATE ORDER, COMPLETED @06/14/25755 Performed By: #### L 100.0100, L500.4050 ####[facility] [address] [place], [address] ALT Normal <=46 [facility] Comment on above: Result Comment: DUPL ICATE ORDER, COMPLETED @06/14/25755 Performed By: #### L 100.0100, L500.4050 ####[facility] [address] [place], [address] AST Normal <=37 [facility] Comment on above: Result Comment: DUPL ICATE ORDER, COMPLETED @06/14/25755 Performed By: #### L 100.0100, L500.4050 ####[facility] [address] [place], [address] BUN Normal 4-19 [facility] Comment on above: Result Comment: DUPL ICATE ORDER, COMPLETED @06/14/25755 Performed By: #### L 100.0100, L500.4050 ####[facility] [address] [place], [address] BUN/CRE Normal 10-20 [facility] Comment on above: Result Comment: DUPL ICATE ORDER, COMPLETED @06/14/25755 Performed By: #### L 100.0100, L500.4050 ####[facility] [address] [place], [address] Calcium Normal 7.6-11.0 [facility] Comment on above: Result Comment: DUPL ICATE ORDER, COMPLETED @06/14/25755 Performed By: #### L 100.0100, L500.4050 ####[facility] [address] [place], [address] CL Normal 98-108 [facility] Comment on above: Result Comment: DUPL ICATE ORDER, COMPLETED @06/14/25755 Performed By: #### L 100.0100, L500.4050 ####[facility] [address] [place], [address] CO2 Normal 21.0-32.0 [facility] Comment on above: Result Comment: DUPL ICATE ORDER, COMPLETED @06/14/25755 Performed By: #### L 100.0100, L500.4050 ####[facility] [address] [place], [address] CREAT,SERUM Normal 0.70-1.20 [facility] Comment on above: Result Comment: DUPL ICATE ORDER, COMPLETED @06/14/25755 Performed By: #### L 100.0100, L500.4050 ####[facility] [address] [place], [address] eGFR Normal >60 [facility] Comment on above: Result Comment: DUPL ICATE ORDER, COMPLETED @06/14/25755 Performed By: #### L 100.0100, L500.4050 ####[facility] [address] [place], [address] GAP Normal 5-15 [facility] Comment on above: Result Comment: DUPL ICATE ORDER, COMPLETED @06/14/25755 Performed By: #### L 100.0100, L500.4050 ####[facility] [address] [place], [address] GLU Normal 70-99 [facility] Comment on above: Result Comment: DUPL ICATE ORDER, COMPLETED @06/14/25755 Performed By: #### L 100.0100, L500.4050 ####[facility] [address] [place], [address] Potassium Normal 3.3-5.1 [facility] Comment on above: Result Comment: DUPL ICATE ORDER, COMPLETED @06/14/25755 Performed By: #### L 100.0100, L500.4050 ####[facility] [address] [place], [address] T BILI Normal 0.00-1.30 [facility] Comment on above: Result Comment: DUPL ICATE ORDER, COMPLETED @06/14/25755 Performed By: #### L 100.0100, L500.4050 ####[facility] [address] [place], [address] T PROT Normal 5.9-8.4 [facility] Comment on above: Result Comment: DUPL ICATE ORDER, COMPLETED @06/14/25755 Performed By: #### L 100.0100, L500.4050 ####[facility] [address] [place], [address] Comprehensive Metabolic Profil Normal 133-145 [facility] Comment on above: Result Comment: DEV WILSON ORDER, COMPLETED @06/14/25755 Performed By: #### L 100.0100, L500.4050 ####[facility] [address] [place], [address] Eosinophil percentageOrdered By: Ayden Bosch on 06-14-2025 Eosinophils/100 WBC (Bld) 0.0 % 0-5 [facility] Erythrocyte distribution wid th ratioOrdered By: Ayden Bosch on 06-14-2025 Erythrocyte distribution width (RBC) [Ratio] 13.0 % 11.6-14.6 [facility] Erythrocyte distribution wid th standard deviationOrdered By: Ayden Bosch on 06-14-2025 Erythrocyte distribution width (RBC) [Ratio] 41.5 fl 35.1-43.9 [facility] Glomerular filtration rate ( GFR) estimation/1.73 sq m using serum, plasma, or whole bOrdered By: Ayden Bosch on 06-14-2025 GFR/1.73 sq M.predicted among non-blacks MDRD (S/P/Bld) [Vol rate/Area] 107 mL/min/{1.73_m2} >60 [facility] Comment on above: mL/min/1.73m2 CKD-EP I Creatinine Equation (2020) Hematocrit Auto (Bld) [Volum e fraction]Ordered By: Ayden Bosch on 06-14-2025 Hematocrit (Bld) [Volume fraction] 40.3 % 40-54 [facility] Hemoglobin measurementOrdere d By: Ayden Bosch on 06-14-2025 Hemoglobin (Bld) [Mass/Vol] 14.2 g/dL 13.0-16. 5 [facility] Immature granulocytes/100 WB C Auto (Bld)Ordered By: Ayden Bosch on 06-14-2025 Immature granulocytes/100 WBC (Bld) 0.600 % 0.0-0.9 [facility] Comment on above: IG% - Immature Granu locytes (promyelocytes, myelocytes and metamyelocytes) > 1% indicates that a LEFT SHIFT is Present. Laboratory - Chemistry and C hemistry - challengeOrdered By: Ayden Bosch on 06-14-2025 AST [Catalytic activity/Vol] 31 U/L <38 [facility] MCV (mean corpuscular volume ) determinationOrdered By: Ayden Bosch on 06-14-2025 MCV (RBC) [Entitic vol] 88.0 fL 80-94 [facility] Mean corpuscular hemoglobin (MCH) determinationOrdered By: Ayden Bosch on 06-14-2025 MCH (RBC) [Entitic mass] 31.0 pg 27.0-32.0 [facility] Mean corpuscular hemoglobin concentration (MCHC) determinationOrdered By: Ayden Bosch on 06-14-2025 MCHC (RBC) [Mass/Vol] 35.2 g/dL 32-36 [facility] Mean platelet volume determi nationOrdered By: Ayden Bosch on 06-14-2025 Platelet mean volume (Bld) [Entitic vol] 9.8 fL 6.2-12.0 [facility] Monocyte percentageOrdered B y: Ayden Bosch on 06-14-2025 Monocytes/100 WBC (Bld) 6.7 % 0-10 [facility] Neutrophil percentageOrdered By: Ayden Bosch on 06-14-2025 Neutrophils/100 WBC (Bld) 85.5 % High 47-70 [facility] Nucleated red blood cell per centageOrdered By: Ayden Bosch on 06-14-2025 Nucleated RBC/100 WBC (Bld) [Ratio] 0 % 0-5 [facility] Oncology Visit Reporton 08-0 Oncology Visit Report Normal [facility] Phosphoruson 06-14-2025 Phosphate [Mass/Vol] 3.4 mg/dL Normal 2.7-4.5 [facility] Comment on above: Performed By: #### L 100.0100, L501.9520, L501.2300, L500.4050 ####[facility] [address] [place], [address] Platelet countOrdered By: Terra Bosch on 06-14-2025 Platelets (Bld) [#/Vol] 321 10*3/uL 150-450 [facility] Potassium measurement (mass/ volume)Ordered By: Ayden Bosch on 06-14-2025 Potassium (Unsp spec) [Mass/Vol] 4.1 mmol/L 3.3-5.1 [facility] RBC Auto (Bld) [#/Vol]Ordere d By: Ayden Bosch on 06-14-2025 RBC (Bld) [#/Vol] 4.58 10*6/uL Low 4.6-6.2 [facility] Serum creatinine measurement (mass/volume)Ordered By: Ayden Bosch on 06-14-2025 Creatinine [Mass/Vol] 0.55 mg/dL Low 0.70-1.20 [facility] Serum globulin measurementOr dered By: Ayden Bosch on 06-14-2025 Globulin (S) [Mass/Vol] 3.5 g/dL 2.2-4.2 [facility] Serum glucose measurement (m ass/volume)Ordered By: Ayden Bosch on 06-14-2025 Glucose [Mass/Vol] 116 mg/dL High 70-99 [facility] Serum or plasma alanine champagne otransferase (ALT) measurementOrdered By: Ayden Bosch on 06-14-2025 ALT [Catalytic activity/Vol] 21 U/L <47 [facility] Serum or plasma albumin francoise urement (mass/volume)Ordered By: Ayden Bosch on 06-14-2025 Albumin [Mass/Vol] 3.8 g/dL 3.4-4.8 [facility] Serum or plasma albumin/glob ulin mass ratioOrdered By: Ayden Bosch on 06-14-2025 Albumin/Globulin [Mass ratio] 1.1 {ratio} 0.9-2.4 [facility] Serum or plasma alkaline mariola sphatase measurementOrdered By: Ayden Bosch on 06-14-2025 ALP [Catalytic activity/Vol] 99 U/L 40-129 [facility] Serum or plasma calcium francoise urement (mass/volume)Ordered By: Ayden Bosch on 06-14-2025 Calcium [Mass/Vol] 9.3 mg/dL 7.6-11.0 [facility] Serum or plasma urea nitroge n measurement (mass/volume)Ordered By: Ayden Bosch on 06-14-2025 Urea nitrogen [Mass/Vol] 13 mg/dL 4-19 [facility] Sodium levelOrdered By: Cam Bosch on 06-14-2025 Sodium [Moles/Vol] 128 mmol/L Low 133-145 [facility] TSH DL <= 0.005 mIU/L QnOrde red By: Ayden Bosch on 06-14-2025 TSH Qn 1.900 uIU/mL 0.300-4.20 0 [facility] Thyroid Stim Hormone (TSH)on 06-14-2025 TSH 1.900 uIU/mL Normal 0.300-4.20 0 [facility] Comment on above: Performed By: #### L 100.0100, L501.9520, L501.2300, L500.4050 ####[facility] [address] [place], [address] Total proteinOrdered By: Ramón Bosch on 06-14-2025 Protein [Mass/Vol] 7.3 g/dL 5.9-8.4 [facility] White blood cell (WBC) count Ordered By: Ayden Bosch on 06-14-2025 WBC (Bld) [#/Vol] 13.8 10*3/uL High 4.4-11.0 [facility] Oncology Visit Reporton Oncology Visit Report Normal [facility] CXR for Line Placementon CXR for Line Placement Normal [facility] Discharge Instructionon 05-10 Discharge Instruction Normal [facility] MR/POSTOP.ANEon 06-05-2025 MR/POSTOP.ANE Normal [facility] MR/XZTCVULD3xt 06-05-2025 MR/POSTOPAN2 Normal [facility] Operative Reporton Operative Report Normal [facility] MR/PAT.ANEon 06-02-2025 MR/PAT.ANE Normal [facility] MR/PAT.ANE Normal [facility] Surgery Visit Reporton 05-31 Surgery Visit Report Normal [facility] Oncology Visit Reporton 05-10 Oncology Visit Report Normal [facility] SURG PATH REQUESTon 05-03-20 Case Report Normal [facility] Comment on above: Result Comment: Surg ical Pathology Report Case: [id number] Authorizing Provider: Ayden Bosch MD Collected: 05/03/2025 03:14 PM Ordering Location: [facility] Received: 05/03/2025 03:14 PM [facility] Pathologist: Jadon Bautista MD, PhD Specimen: SURG PATH, Outside Block; Lung Cancer Biomarker Panel (PULMOL FFPE, PD-L1 IHC (22C3, Keytruda); HER2 IHC, NTRK Fusion Panel Performed By: #### S URGP #### [facility] (DEFAULT) [address] [place] [address] Clinical History Request received fro laisha Bosch MD of [facility] for Lung Cancer Biomarker Panel/ PULMOL (FFPE); PD-L1 IHC (22C3, Keytruda), HER2 IHC, and NTRK Fusion Panel on the paraffin block received from [facility]. Pre-Op Diagnosis: left lung mass. Normal [facility] Comment on above: Performed By: #### S URGP #### [facility] (DEFAULT) [address] [place] [address] Diagnosis Comments Normal [facility] Comment on above: Result Comment: HER2 immunohistochemical expression (3+) using this assay may be an indication for use of trastuzumab deruxtecan-nxki in NSCLC and other solid tumors (Oncologist 2023Jun 13;29(8):667-671). Correlation with HER2 mutation status is recommended. Performed By: #### S URGP #### [facility] (DEFAULT) [address] [address] Gross Description Normal [facility] Comment on above: Result Comment: The following material(s) are received from [facility], [address] [place] [address], with an identifying surgical pathology report: 1 paraffin block marked A1, labeled [id number]. The paraffin block that was received is submitted to the [facility] histology/IHC laboratory for recutting and additional staining: Lung Cancer Biomarker Panel /PULMOL (FFPE) PULNGS & ALK/MET/ROS FISH; PD-L1 IHC (22C3, Keytruda); Her2 IHC, NTRK Fusion Panel. Material with be returned upon completion of review. Grosser for this case was: Carla House Performed By: #### S URGP #### [facility] (DEFAULT) [address] [place] [address] Microscopic Description Normal [facility] Comment on above: Result Comment: PD-L 1 protein expression in NSCLC is determined by manual quantification and reported as Tumor Proportion Score (TPS). TPS is the percentage of viable tumor cells showing partial or complete membrane staining at any intensity. PD-L1 expression is interpreted as positive if TPS >= 1% or negative if TPS < 1%. PD-L1 expression level TPS >= 50% may be of interest to treating physician but does not determine eligibility for KEYTRUDA? (pembrolizumab) monotherapy. The sample is adequate if >= 100 tumor cells are present. HER2 protein expression in NSCLC is evaluated by manual quantitative immunohistochemistry on formalin-fixed, paraffin-embedded tissues, using clone [id number] (rabbit monoclonal, Neal) on a Neal auto-stainer. Membrane staining of tumor cells is evaluated and graded as follows: Negative: no staining (0); faint (1+) segmental or granular staining with any cellularity; moderate (2+) staining with any pattern in <50% tumor cells; intense (3+) circumferential, basolateral, or lateral staining in <= 10% tumor cells; Equivocal: moderate (2+) circumferential, basolateral or lateral staining in >=50% tumor cells; Positive: intense (3+) circumferential, basolateral, or lateral staining in >=50% tumor cells; or intense (3+) circumferential, basolateral, or lateral staining in >10% but <50% of tumor cells. All controls show appropriate reactivity. All immunohistochemistry, in situ hybridization, and histochemical tests were developed by and are performed at the [facility], [address], [address], [place] [address]. All tests reported here, except those addressing HER2 , ALK and PD-L1 expression as predictive markers, have not been cleared by or approved by the [place] Food and Drug Administration (FDA). The laboratory is regulated under CLIA as qualified to perform high-complexity testing. The tests are used for clinical purposes. They should not be regarded as investigational or for research. Performed By: #### S URGP #### [facility] (DEFAULT) [address] [place] [address] Pathologic Diagnosis [facility] Comment on above: Result Comment: Outs jennifer block: [id number] (04/07/2025) A. Left Lung, Mass, Biopsy: PD-L1 IHC 22C3 pharmDx Result: Positive, TPS: 11% HER2 IHC (4B5) result: 2+ (not reflexed in NSCLC; comment below) NGS mutation panel: No BRAF, EGFR, ERBB2, MET, STEVE or other targetable mutations (see NGS report for summary of variants detected) FISH: No ALK or ROS1 rearrangement or amplification of MET NTRK/RET/FGFR fusion panel: Negative at 1304 EDT Performed By: #### S URGP #### [facility] (DEFAULT) [address] [place] [address] Professional Interpretation Performed at: [facility] Comment on above: Result Comment: [facility] For Immediate Release to [facility]? Yes [address] [place] [address] Performed By: #### S URGP #### [facility] (DEFAULT) [address] [place] [address] Absolute lymphocyte countOrd ered By: Ayden Bosch on 05-01-2025 Lymphocytes Auto (Unsp spec) [#/Vol] 1.31 10*3/uL 0.83-4.51 [facility] Absolute neutrophil countOrd ered By: Ayden Bosch on 05-01-2025 Neutrophils (Bld) [#/Vol] 4.9 10*3/uL 2.0-7.7 [facility] Anion gap in Serum or Plasma Ordered By: Ayden Bosch on 05-01-2025 Anion gap [Moles/Vol] 10 mmol/L 5-15 [facility] Automated lymphocyte count a s percentage of total leukocytesOrdered By: Ayden Bosch on 05-01-2025 Lymphocytes/100 WBC Auto (Unsp spec) 17.8 % Low 19-41 [facility] BUN/creatinine ratioOrdered By: Ayden Bosch on 05-01-2025 Urea nitrogen/Creatinine [Mass ratio] 9.8 mg/mg Low 10-20 [facility] Basophil percentageOrdered B y: Ayden Bosch on 05-01-2025 Basophils/100 WBC (Bld) 0.7 % 0-1 [facility] Bilirubin, totalOrdered By: Ayden Bosch on 05-01-2025 Bilirubin [Mass/Vol] 1.00 mg/dL 0.00-1.30 [facility] CBC W/Diff, Automatedon 04-10 Absolute Lymph 1.31 X10 3/uL Normal 0.83-4.51 [facility] Comment on above: Performed By: #### L 500.4050, L504.2610, L100.0100 ####[facility] [address] [place], [address] Absolute Neut 4.9 X10 3/uL Normal 2.0-7.7 [facility] Comment on above: Performed By: #### L 500.4050, L504.2610, L100.0100 ####[facility] [address] [place], [address] Basophils/100 WBC (Bld) 0.7 % Normal 0-1 [facility] Comment on above: Performed By: #### L 500.4050, L504.2610, L100.0100 ####[facility] [address] [place], [address] Eosinophils/100 WBC (Bld) 0.8 % Normal 0-5 [facility] Comment on above: Performed By: #### L 500.4050, L504.2610, L100.0100 ####[facility] [address] [place], [address] Erythrocyte distribution width (RBC) [Ratio] 14.2 % Normal 11.6-14.6 [facility] Comment on above: Performed By: #### L 500.4050, L504.2610, L100.0100 ####[facility] [address] [place], [address] Hematocrit (Bld) [Volume fraction] 42.2 % Normal 40-54 [facility] Comment on above: Performed By: #### L 500.4050, L504.2610, L100.0100 ####[facility] [address] [place], [address] Hemoglobin (Bld) [Mass/Vol] 14.6 g/dL Normal 13.0-16. 5 [facility] Comment on above: Performed By: #### L 500.4050, L504.2610, L100.0100 ####[facility] [address] [place], [address] IG% 0.300 Normal 0.0-0.9 [facility] Comment on above: Result Comment: IG% - Immature Granulocytes (promyelocytes, myelocytes andmetamyelocytes) > 1% indicates that a LEFT SHIFT is Present. Performed By: #### L 500.4050, L504.2610, L100.0100 ####[facility] [address] [place], [address] Lymphocytes/100 WBC (Bld) 17.8 % Low 19-41 [facility] Comment on above: Performed By: #### L 500.4050, L504.2610, L100.0100 ####[facility] [address] [place], [address] MCH (RBC) [Entitic mass] 30.7 pg Normal 27.0-32.0 [facility] Comment on above: Performed By: #### L 500.4050, L504.2610, L100.0100 ####[facility] [address] [place], [address] MCHC (RBC) [Mass/Vol] 34.6 g/dL Normal 32-36 [facility] Comment on above: Performed By: #### L 500.4050, L504.2610, L100.0100 ####[facility] [address] [place], [address] MCV (RBC) [Entitic vol] 88.7 fL Normal 80-94 [facility] Comment on above: Performed By: #### L 500.4050, L504.2610, L100.0100 ####[facility] [address] [place], [address] Monocytes/100 WBC (Bld) 14.4 % High 0-10 [facility] Comment on above: Performed By: #### L 500.4050, L504.2610, L100.0100 ####[facility] [address] [place], [address] Neutrophils/100 WBC (Bld) 66.0 % Normal 47-70 [facility] Comment on above: Performed By: #### L 500.4050, L504.2610, L100.0100 ####[facility] [address] [place], [address] Nucleated RBC (Bld) [#/Vol] 0 10*3/uL Normal 0-5 [facility] Comment on above: Performed By: #### L 500.4050, L504.2610, L100.0100 ####[facility] [address] [place], [address] Platelet mean volume (Bld) [Entitic vol] 9.7 fL Normal 6.2-12.0 [facility] Comment on above: Performed By: #### L 500.4050, L504.2610, L100.0100 ####[facility] [address] [place], [address] Platelets (Bld) [#/Vol] 336 10*3/uL Normal 150-450 [facility] Comment on above: Performed By: #### L 500.4050, L504.2610, L100.0100 ####[facility] [address] [place], [address] RBC (Bld) [#/Vol] 4.76 10*6/uL Normal 4.6-6.2 [facility] Comment on above: Performed By: #### L 500.4050, L504.2610, L100.0100 ####[facility] [address] [place], [address] RDW SD 46.1 fl High 35.1-43.9 [facility] Comment on above: Performed By: #### L 500.4050, L504.2610, L100.0100 ####[facility] [address] [place], [address] WBC (Bld) [#/Vol] 7.4 10*3/uL Normal 4.4-11.0 [facility] Comment on above: Performed By: #### L 500.4050, L504.2610, L100.0100 ####[facility] [address] [place], [address] Carbon dioxide, total [Moles /volume] in Central venous bloodOrdered By: yAden Bosch on 05-01-2025 CO2 [Moles/Vol] 24.2 mmol/L 21.0-32.0 [facility] Chloride assayOrdered By: Terra Bosch on 05-01-2025 Chloride [Moles/Vol] 97 mmol/L Low 98-108 [facility] Comprehensive Metabolic Prof ilon 05-01-2025 Albumin [Mass/Vol] 4.0 g/dL Normal 3.4-4.8 [facility] Comment on above: Performed By: #### L 500.4050, L504.2610, L100.0100 ####[facility] [address] [place], [address] Albumin/Globulin [Mass ratio] 1.1 {ratio} Normal 0.9-2.4 [facility] Comment on above: Performed By: #### L 500.4050, L504.2610, L100.0100 ####[facility] [address] [place], [address] ALK PHOS 106 U/L Normal 40-129 [facility] Comment on above: Performed By: #### L 500.4050, L504.2610, L100.0100 ####[facility] [address] [place], [address] ALT [Catalytic activity/Vol] 36 U/L Normal <=46 [facility] Comment on above: Performed By: #### L 500.4050, L504.2610, L100.0100 ####[facility] [address] [place], [address] AST [Catalytic activity/Vol] 52 U/L High <=37 [facility] Comment on above: Performed By: #### L 500.4050, L504.2610, L100.0100 ####[facility] [address] [place], [address] Bilirubin [Mass/Vol] 1.00 mg/dL Normal 0.00-1.30 [facility] Comment on above: Performed By: #### L 500.4050, L504.2610, L100.0100 ####[facility] [address] [place], [address] BUN/CRE 9.8 RATIO Low 10-20 [facility] Comment on above: Performed By: #### L 500.4050, L504.2610, L100.0100 ####[facility] [address] [place], [address] Calcium [Mass/Vol] 9.3 mg/dL Normal 7.6-11.0 [facility] Comment on above: Performed By: #### L 500.4050, L504.2610, L100.0100 ####[facility] [address] [place], [address] Chloride [Moles/Vol] 97 mmol/L Low 98-108 [facility] Comment on above: Performed By: #### L 500.4050, L504.2610, L100.0100 ####[facility] [address] [place], [address] CO2 [Moles/Vol] 24.2 mmol/L Normal 21.0-32.0 [facility] Comment on above: Performed By: #### L 500.4050, L504.2610, L100.0100 ####[facility] [address] [place], [address] Creatinine [Mass/Vol] 0.69 mg/dL Low 0.70-1.20 [facility] Comment on above: Performed By: #### L 500.4050, L504.2610, L100.0100 ####[facility] [address] [place], [address] GAP 10 Normal 5-15 [facility] Comment on above: Performed By: #### L 500.4050, L504.2610, L100.0100 ####[facility] [address] [place], [address] GFR/1.73 sq M.predicted among non-blacks MDRD (S/P/Bld) [Vol rate/Area] 99 mL/min/{1.73_m2} Normal >60 [facility] Comment on above: Result Comment: mL/m in/1.73m2 CKD-EPI Creatinine Equation (2020) Performed By: #### L 500.4050, L504.2610, L100.0100 ####[facility] [address] [place], [address] Globulin (S) [Mass/Vol] 3.7 g/dL Normal 2.2-4.2 [facility] Comment on above: Performed By: #### L 500.4050, L504.2610, L100.0100 ####[facility] [address] [place], [address] Glucose [Mass/Vol] 91 mg/dL Normal 70-99 [facility] Comment on above: Performed By: #### L 500.4050, L504.2610, L100.0100 ####[facility] [address] [place], [address] Potassium [Moles/Vol] 4.8 mmol/L Normal 3.3-5.1 [facility] Comment on above: Performed By: #### L 500.4050, L504.2610, L100.0100 ####[facility] [address] [place], [address] Sodium [Moles/Vol] 132 mmol/L Low 133-145 [facility] Comment on above: Performed By: #### L 500.4050, L504.2610, L100.0100 ####[facility] [address] [place], [address] T PROT 7.7 g/dL Normal 5.9-8.4 [facility] Comment on above: Performed By: #### L 500.4050, L504.2610, L100.0100 ####[facility] [address] [place], [address] Urea nitrogen [Mass/Vol] 7 mg/dL Normal 4-19 [facility] Comment on above: Performed By: #### L 500.4050, L504.2610, L100.0100 ####[facility] [address] [place], [place], [address] Eosinophil percentageOrdered By: [facility] on 05-01-2025 Eosinophils/100 WBC (Bld) 0.8 % 0-5 [facility] Erythrocyte distribution wid th ratioOrdered By: [facility] on 05-01-2025 Erythrocyte distribution width (RBC) [Ratio] 14.2 % 11.6-14.6 [facility] Erythrocyte distribution wid th standard deviationOrdered By: [facility] on 05-01-2025 Erythrocyte distribution width (RBC) [Ratio] 46.1 fl High 35.1-43.9 [facility] Glomerular filtration rate ( GFR) estimation/1.73 sq m using serum, plasma, or whole bOrdered By: [facility] on 05-01-2025 GFR/1.73 sq M.predicted among non-blacks MDRD (S/P/Bld) [Vol rate/Area] 99 mL/min/{1.73_m2} >60 [facility] Comment on above: mL/min/1.73m2 CKD-EP I Creatinine Equation (2020) Hematocrit Auto (Bld) [Volum e fraction]Ordered By: [facility] on 05-01-2025 Hematocrit (Bld) [Volume fraction] 42.2 % 40-54 [facility] Hemoglobin measurementOrdere d By: [facility] on 05-01-2025 Hemoglobin (Bld) [Mass/Vol] 14.6 g/dL 13.0-16. 5 [facility] Immature granulocytes/100 WB C Auto (Bld)Ordered By: [facility] on 05-01-2025 Immature granulocytes/100 WBC (Bld) 0.300 % 0.0-0.9 [facility] Comment on above: IG% - Immature Granu locytes (promyelocytes, myelocytes and metamyelocytes) > 1% indicates that a LEFT SHIFT is Present. LDHon 05-01-2025 LDH 188 U/L Normal 87-241 [facility] Comment on above: Order Comment: 1 Performed By: #### L 500.4050, L504.2610, L100.0100 ####[facility] [address] [place], [address] Laboratory - Chemistry and C hemistry - challengeOrdered By: Ayden Bosch on 05-01-2025 AST [Catalytic activity/Vol] 52 U/L High <38 [facility] Lactate dehydrogenase (LDH) measurementOrdered By: Ayden Bosch on 05-01-2025 LDH [Catalytic activity/Vol] 188 U/L 87-241 [facility] MCV (mean corpuscular volume ) determinationOrdered By: Ayden Bosch on 05-01-2025 MCV (RBC) [Entitic vol] 88.7 fL 80-94 [facility] Mean corpuscular hemoglobin (MCH) determinationOrdered By: Ayden Bosch on 05-01-2025 MCH (RBC) [Entitic mass] 30.7 pg 27.0-32.0 [facility] Mean corpuscular hemoglobin concentration (MCHC) determinationOrdered By: Ayden Bosch on 05-01-2025 MCHC (RBC) [Mass/Vol] 34.6 g/dL 32-36 [facility] Mean platelet volume determi nationOrdered By: Ayden Bosch on 05-01-2025 Platelet mean volume (Bld) [Entitic vol] 9.7 fL 6.2-12.0 [facility] Monocyte percentageOrdered B y: Ayden Bosch on 05-01-2025 Monocytes/100 WBC (Bld) 14.4 % High 0-10 [facility] Neutrophil percentageOrdered By: Ayden Bosch on 05-01-2025 Neutrophils/100 WBC (Bld) 66.0 % 47-70 [facility] Nucleated red blood cell per centageOrdered By: Ayden Bosch on 05-01-2025 Nucleated RBC/100 WBC (Bld) [Ratio] 0 % 0-5 [facility] Oncology Visit Reporton 04-10 Oncology Visit Report Normal [facility] Platelet countOrdered By: Terra Bosch on 05-01-2025 Platelets (Bld) [#/Vol] 336 10*3/uL 150-450 [facility] Potassium measurement (mass/ volume)Ordered By: Ayden Bosch on 05-01-2025 Potassium (Unsp spec) [Mass/Vol] 4.8 mmol/L 3.3-5.1 [facility] RBC Auto (Bld) [#/Vol]Ordere d By: Ayden Bosch on 05-01-2025 RBC (Bld) [#/Vol] 4.76 10*6/uL 4.6-6.2 [facility] Serum creatinine measurement (mass/volume)Ordered By: Ayden Bosch on 05-01-2025 Creatinine [Mass/Vol] 0.69 mg/dL Low 0.70-1.20 [facility] Serum globulin measurementOr dered By: Ayden Bosch on 05-01-2025 Globulin (S) [Mass/Vol] 3.7 g/dL 2.2-4.2 [facility] Serum glucose measurement (m ass/volume)Ordered By: Ayden Bosch on 05-01-2025 Glucose [Mass/Vol] 91 mg/dL 70-99 [facility] Serum or plasma alanine champagne otransferase (ALT) measurementOrdered By: Ayden Bosch on 05-01-2025 ALT [Catalytic activity/Vol] 36 U/L <47 [facility] Serum or plasma albumin francoise urement (mass/volume)Ordered By: Ayden Bosch on 05-01-2025 Albumin [Mass/Vol] 4.0 g/dL 3.4-4.8 [facility] Serum or plasma albumin/glob ulin mass ratioOrdered By: Ayden Bosch on 05-01-2025 Albumin/Globulin [Mass ratio] 1.1 {ratio} 0.9-2.4 [facility] Serum or plasma alkaline mariola sphatase measurementOrdered By: Ayden Bosch on 05-01-2025 ALP [Catalytic activity/Vol] 106 U/L 40-129 [facility] Serum or plasma calcium francoise urement (mass/volume)Ordered By: Ayden Bosch on 05-01-2025 Calcium [Mass/Vol] 9.3 mg/dL 7.6-11.0 [facility] Serum or plasma urea nitroge n measurement (mass/volume)Ordered By: Ayden Bosch on 05-01-2025 Urea nitrogen [Mass/Vol] 7 mg/dL 4-19 [facility] Sodium levelOrdered By: Cam Bosch on 05-01-2025 Sodium [Moles/Vol] 132 mmol/L Low 133-145 [facility] Total proteinOrdered By: Ramón Bosch on 05-01-2025 Protein [Mass/Vol] 7.7 g/dL 5.9-8.4 [facility] White blood cell (WBC) count Ordered By: Ayden Bosch on 05-01-2025 WBC (Bld) [#/Vol] 7.4 10*3/uL 4.4-11.0 [facility] Positron emission tomography scan reportOrdered By: Shaw Whitman on 04-27-2025 PT Unspecified body region [facility] Imaging Services [address] [place] [address] PET/CT Tumor Base -Thigh Init MR#: [id number] Acct: [id number] Name: PATRICK ANDRES Rep #: [id number] : 1955 M 70 From: Pet er Peer DO PCP: JESUS CALLAHAN MASTER DATA ANALYST-C Status: REG C LI Study:PET/CT Tumor Base -Thigh Init Date of E xam: 04/25/25 Exam# [id number] Ordering Dr: Jonathan Ledezma NP MASTER DATA ANALYST-C PROCEDURE: PET/CT TUMOR BASE -THIGH INIT 04/25/2025 REASON FOR EXAM: 70 y/o M with LUNG R91.8. Other nonspecific abnormal finding of lung field. 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 A preliminary CT study encompassing the Skull base, neck, chest, abdomen, pelvis, and proximal thighs was performed for purposes of attenuation correction and anatomic localization. The proximal thighs were also included. The patient's blood glucose level was 92 mg/dL (allowable range: 50-180 mg/dL). RADIOPHARMACEUTICAL: 14 0.89 mCi 18F-FDG (Fluorodeoxyglucose F18) IV was injected into he patient. Left antecubital fossa, injection site. RADIATION DOSE SUMMARY: Effective Dose: Approximately 7 mSv for a standard whole-body PET scan Organ Doses: Varies by organ, with higher doses typically to the bladder, liver,and brain COMPARISON: COMPARISON FROM CT, PET OR OTHER PERTINENT EXAMS: . FINDINGS: Physiologic uptake: There may be expected metabolic uptake within the brain, tongue and floor of the mouth and larynx/vocal cords, heart, tomasz (many normal individuals have hilar uptake in less than 3 nodes with mildly avid hilar nodes less than 2.7 SUV), liver and spleen, system, and GI tract and symmetric muscle uptake. FDG AVID AND NON-AVID LESIONS. Reported avid SUV values (g/mL*) are maximum SUV. NECK: There are no significant neck abnormalities. CHEST: Chest wall- There are no significant chest wall abnormalities. Axilla- There are no significant axillary abnormalities. Previous right supraclavicular uptake is no longer seen. Lung parenchyma- Left lung nodules at the level of the aortic arch measures 4.32 max SUV. Mediastinal blood pool activity is max 1.58 SUV. Left lower lobe posterior hypermetabolic mass measures 8.43 max SUV. Left hilar focus of FDG, superior segment, posteriorly; uptake measures 2.24 max SUV. The nodule measures 20.8 mm. Additional right hilar sharyn uptake. Mild subcarinal uptake. Superior mediastinum and neck base. Nonspecific thyroid uptake right lobe Mediastinum-left hilar uptake, multiple right hilar small foci uptake in left axillary sharyn uptake. Pleura- There are no significant pleural abnormalities. ABDOMEN: Stomach- No significant abnormalities. Liver- No significant abnormalities. Spleen- No significant abnormalities. Pancrease- No significant abnormalities. Kidneys- No significant abnormalities. Bowel- Normal bowel activity. Spine- No significant abnormalities. PELVIS: Bowel- Normal physiologic bowel activity is identified. Masses- There are no pelvic masses. LOWER EXTREMITIES: Bones- With the use of bone window settings, a focus in the intertrochanteric left hip partly sclerotic and partly lytic. There are no FDG avid lesions within the visualized portion of the axial skeleton. PET/PET/CT Tumor Base -Thigh Init IMPRESSION: FDG avid-left upper lobe at level of the aortic arch, mid zone. Nodule in left lower lobe, superior segment, posteriorly. Smaller, left hilar focus of uptake. Peripheral mid to upper zone focus of uptake. Right thyroid uptake. Overall the pattern and foci of uptake are similar to the prior study, but the lung nodules appear slightly increased in size. Combination lytic and sclerotic lesion in the intratrochanteric left hip appearsunchanged from prior exam. Please note the low-dose CT scan was performed to facilitate PET image reconstruction and anatomic localization and does not replace a diagnostic CT. Any diagnostic CT requested and performed at the time of the PET will be reported separately. Reading Location: [facility] CC: FRIEDA Ledezma; JESUS CALLAHAN ~ Electronics Lead: Signed [facility] PET/CT Tumor Base -Thigh Ini ton 04-25-2025 PET/CT Tumor Base -Thigh Init Normal [facility] Pulmonary Visit Reporton Pulmonary Visit Report Normal [facility] Chest PA and Lateralon 04-10 Chest PA and Lateral Normal [facility] Chest PA and Lateral [facility] Chest PA and Lateralon 04-09 Chest PA and Lateral Normal [facility] Absolute lymphocyte countOrd ered By: Michellemago Do on 04-08-2025 Lymphocytes Auto (Unsp spec) [#/Vol] 1.94 10*3/uL 0.83-4.51 [facility] Absolute neutrophil countOrd ered By: Michelle Hi on 04-08-2025 Neutrophils (Bld) [#/Vol] 3.3 10*3/uL 2.0-7.7 [facility] Anion gap in Serum or Plasma Ordered By: Michelle Do on 04-08-2025 Anion gap [Moles/Vol] 10 mmol/L - [facility] Automated lymphocyte count a s percentage of total leukocytesOrdered By: Michellemago Do on 04-08-2025 Lymphocytes/100 WBC Auto (Unsp spec) 30.2 % [facility] BUN/creatinine ratioOrdered By: Michelle Do on 04-08-2025 Urea nitrogen/Creatinine [Mass ratio] 15.4 mg/mg - [facility] Basic Metabolic Profile (BMP )on 04-08-2025 BUN/CRE 15.4 RATIO Normal - [facility] Comment on above: Performed By: #### L 500.2500, L100.0100 ####[facility] [address] [place], [address] Calcium [Mass/Vol] 8.9 mg/dL Normal 7.6-11.0 [facility] Comment on above: Performed By: #### L 500.2500, L100.0100 ####[facility] [address] [place], [address] Chloride [Moles/Vol] 100 mmol/L Normal 98-108 [facility] Comment on above: Performed By: #### L 500.2500, L100.0100 ####[facility] [address] [place], [address] CO2 [Moles/Vol] 23.3 mmol/L Normal 21.0-32.0 [facility] Comment on above: Performed By: #### L 500.2500, L100.0100 ####[facility] [address] [place], [address] Creatinine [Mass/Vol] 0.70 mg/dL Normal 0.70-1.20 [facility] Comment on above: Performed By: #### L 500.2500, L100.0100 ####[facility] [address] [place], [address] ECRCL 64.49 ml/min Normal 50-250 [facility] Comment on above: Performed By: #### L 500.2500, L100.0100 ####[facility] [address] [place], [address] GAP 10 Normal 5-15 [facility] Comment on above: Performed By: #### L 500.2500, L100.0100 ####[facility] [address] [place], [address] GFR/1.73 sq M.predicted among non-blacks MDRD (S/P/Bld) [Vol rate/Area] 99 mL/min/{1.73_m2} Normal >60 [facility] Comment on above: Result Comment: mL/m in/1.73m2 CKD-EPI Creatinine Equation (2020) Performed By: #### L 500.2500, L100.0100 ####[facility] [address] [place], [address] Glucose [Mass/Vol] 82 mg/dL Normal 70-99 [facility] Comment on above: Performed By: #### L 500.2500, L100.0100 ####[facility] [address] [place], [address] Potassium [Moles/Vol] 4.3 mmol/L Normal 3.3-5.1 [facility] Comment on above: Performed By: #### L 500.2500, L100.0100 ####[facility] [address] [place], [address] Sodium [Moles/Vol] 133 mmol/L Normal 133-145 [facility] Comment on above: Performed By: #### L 500.2500, L100.0100 ####[facility] [address] [place], [address] Urea nitrogen [Mass/Vol] 11 mg/dL Normal 4-19 [facility] Comment on above: Performed By: #### L 500.2500, L100.0100 ####[facility] [address] [place], [address] Basophil percentageOrdered B y: Michelle Do on 04-08-2025 Basophils/100 WBC (Bld) 0.5 % 0-1 [facility] CBC W/Diff, Automatedon 03-11 Absolute Lymph 1.94 X10 3/uL Normal 0.83-4.51 [facility] Comment on above: Performed By: #### L 500.2500, L100.0100 ####[facility] [address] [place], [address] Absolute Neut 3.3 X10 3/uL Normal 2.0-7.7 [facility] Comment on above: Performed By: #### L 500.2500, L100.0100 ####[facility] [address] [place], [address] Basophils/100 WBC (Bld) 0.5 % Normal 0-1 [facility] Comment on above: Performed By: #### L 500.2500, L100.0100 ####[facility] [address] [place], [address] Eosinophils/100 WBC (Bld) 3.1 % Normal 0-5 [facility] Comment on above: Performed By: #### L 500.2500, L100.0100 ####[facility] [address] [place], [address] Erythrocyte distribution width (RBC) [Ratio] 14.4 % Normal 11.6-14.6 [facility] Comment on above: Performed By: #### L 500.2500, L100.0100 ####[facility] [address] [place], [address] Hematocrit (Bld) [Volume fraction] 40.2 % Normal 40-54 [facility] Comment on above: Performed By: #### L 500.2500, L100.0100 ####[facility] [address] [place], [address] Hemoglobin (Bld) [Mass/Vol] 13.9 g/dL Normal 13.0-16. 5 [facility] Comment on above: Performed By: #### L 500.2500, L100.0100 ####[facility] [address] [place], [address] IG% 0.300 Normal 0.0-0.9 [facility] Comment on above: Result Comment: IG% - Immature Granulocytes (promyelocytes, myelocytes andmetamyelocytes) > 1% indicates that a LEFT SHIFT is Present. Performed By: #### L 500.2500, L100.0100 ####[facility] [address] [place], [address] Lymphocytes/100 WBC (Bld) 30.2 % Normal 19-41 [facility] Comment on above: Performed By: #### L 500.2500, L100.0100 ####[facility] [address] [place], [address] MCH (RBC) [Entitic mass] 31.0 pg Normal 27.0-32.0 [facility] Comment on above: Performed By: #### L 500.2500, L100.0100 ####[facility] [address] [place], [address] MCHC (RBC) [Mass/Vol] 34.6 g/dL Normal 32-36 [facility] Comment on above: Performed By: #### L 500.2500, L100.0100 ####[facility] [address] [place], [address] MCV (RBC) [Entitic vol] 89.5 fL Normal 80-94 [facility] Comment on above: Performed By: #### L 500.2500, L100.0100 ####[facility] [address] [place], [address] Monocytes/100 WBC (Bld) 14.3 % High 0-10 [facility] Comment on above: Performed By: #### L 500.2500, L100.0100 ####[facility] [address] [place], [address] Neutrophils/100 WBC (Bld) 51.6 % Normal 47-70 [facility] Comment on above: Performed By: #### L 500.2500, L100.0100 ####[facility] [address] [place], [address] Nucleated RBC (Bld) [#/Vol] 0 10*3/uL Normal 0-5 [facility] Comment on above: Performed By: #### L 500.2500, L100.0100 ####[facility] [address] [place], [address] Platelet mean volume (Bld) [Entitic vol] 10.2 fL Normal 6.2-12.0 [facility] Comment on above: Performed By: #### L 500.2500, L100.0100 ####[facility] [address] [place], [address] Platelets (Bld) [#/Vol] 286 10*3/uL Normal 150-450 [facility] Comment on above: Performed By: #### L 500.2500, L100.0100 ####[facility] [address] [place], [address] RBC (Bld) [#/Vol] 4.49 10*6/uL Low 4.6-6.2 [facility] Comment on above: Performed By: #### L 500.2500, L100.0100 ####[facility] [address] [place], [address] RDW SD 47.3 fl High 35.1-43.9 [facility] Comment on above: Performed By: #### L 500.2500, L100.0100 ####[facility] [address] [place], [place], [address] WBC (Bld) [#/Vol] 6.4 10*3/uL Normal 4.4-11.0 [facility] Comment on above: Performed By: #### L 500.2500, L100.0100 ####[facility] [address] [place], [address] Carbon dioxide, total [Moles /volume] in Central venous bloodOrdered By: Michelle Do on 04-08-2025 CO2 [Moles/Vol] 23.3 mmol/L 21.0-32.0 [facility] Chest PA and Lateralon 04-08 Chest PA and Lateral Normal [facility] Chloride assayOrdered By: Hunter Do on 04-08-2025 Chloride [Moles/Vol] 100 mmol/L 98-108 [facility] Eosinophil percentageOrdered By: Michelle Do on 04-08-2025 Eosinophils/100 WBC (Bld) 3.1 % 0-5 [facility] Erythrocyte distribution wid th ratioOrdered By: Michelle Do on 04-08-2025 Erythrocyte distribution width (RBC) [Ratio] 14.4 % 11.6-14.6 [facility] Erythrocyte distribution wid th standard deviationOrdered By: Michelle Do on 04-08-2025 Erythrocyte distribution width (RBC) [Ratio] 47.3 fl High 35.1-43.9 [facility] Glomerular filtration rate ( GFR) estimation/1.73 sq m using serum, plasma, or whole bOrdered By: Michelle Do on 04-08-2025 GFR/1.73 sq M.predicted among non-blacks MDRD (S/P/Bld) [Vol rate/Area] 99 mL/min/{1.73_m2} >60 [facility] Comment on above: mL/min/1.73m2 CKD-EP I Creatinine Equation (2020) Hematocrit Auto (Bld) [Volum e fraction]Ordered By: Michelle Do 04-08-2025 Hematocrit (Bld) [Volume fraction] 40.2 % 40-54 [facility] Hemoglobin measurementOrdere d By: Michelle Do 04-08-2025 Hemoglobin (Bld) [Mass/Vol] 13.9 g/dL 13.0-16. 5 [facility] Immature granulocytes/100 WB C Auto (Bld)Ordered By: Michelle Do 04-08-2025 Immature granulocytes/100 WBC (Bld) 0.300 % 0.0-0.9 [facility] Comment on above: IG% - Immature Granu locytes (promyelocytes, myelocytes and metamyelocytes) > 1% indicates that a LEFT SHIFT is Present. MCV (mean corpuscular volume ) determinationOrdered By: Michelle Do 04-08-2025 MCV (RBC) [Entitic vol] 89.5 fL 80-94 [facility] Mean corpuscular hemoglobin (MCH) determinationOrdered By: Michelle Do on 04-08-2025 MCH (RBC) [Entitic mass] 31.0 pg 27.0-32.0 [facility] Mean corpuscular hemoglobin concentration (MCHC) determinationOrdered By: Michelle Do on 04-08-2025 MCHC (RBC) [Mass/Vol] 34.6 g/dL 32-36 [facility] Mean platelet volume determi nationOrdered By: Michelle Do on 04-08-2025 Platelet mean volume (Bld) [Entitic vol] 10.2 fL 6.2-12.0 [facility] Monocyte percentageOrdered B y: Michelle Do on 04-08-2025 Monocytes/100 WBC (Bld) 14.3 % High 0-10 [facility] Neutrophil percentageOrdered By: Michelle Do on 04-08-2025 Neutrophils/100 WBC (Bld) 51.6 % 47-70 [facility] Nucleated red blood cell per centageOrdered By: Michelle Do on 04-08-2025 Nucleated RBC/100 WBC (Bld) [Ratio] 0 % 0-5 [facility] Platelet countOrdered By: Na hunter Do on 04-08-2025 Platelets (Bld) [#/Vol] 286 10*3/uL 150-450 [facility] Potassium measurement (mass/ volume)Ordered By: Michelle Do on 04-08-2025 Potassium (Unsp spec) [Mass/Vol] 4.3 mmol/L 3.3-5.1 [facility] RBC Auto (Bld) [#/Vol]Ordere d By: Michelle Do on 04-08-2025 RBC (Bld) [#/Vol] 4.49 10*6/uL Low 4.6-6.2 [facility] Serum creatinine measurement (mass/volume)Ordered By: Michelle Do on 04-08-2025 Creatinine [Mass/Vol] 0.70 mg/dL 0.70-1.20 [facility] Serum glucose measurement (m ass/volume)Ordered By: Michelle Do on 04-08-2025 Glucose [Mass/Vol] 82 mg/dL 70-99 [facility] Serum or plasma calcium francoise urement (mass/volume)Ordered By: Michelle Do on 04-08-2025 Calcium [Mass/Vol] 8.9 mg/dL 7.6-11.0 [facility] Serum or plasma urea nitroge n measurement (mass/volume)Ordered By: Michelle Do on 04-08-2025 Urea nitrogen [Mass/Vol] 11 mg/dL 4-19 [facility] Sodium levelOrdered By: Michelle Do on 04-08-2025 Sodium [Moles/Vol] 133 mmol/L 133-145 [facility] White blood cell (WBC) count Ordered By: Michelle Do on 04-08-2025 WBC (Bld) [#/Vol] 6.4 10*3/uL 4.4-11.0 [facility] Absolute lymphocyte countOrd ered By: Stefan Shultz on 04-07-2025 Lymphocytes Auto (Unsp spec) [#/Vol] 1.62 10*3/uL 0.83-4.51 [facility] Absolute lymphocyte countOrd ered By: Saulo Barahona on 04-07-2025 Lymphocytes Auto (Unsp spec) [#/Vol] 1.95 10*3/uL 0.83-4.51 [facility] Absolute neutrophil countOrd ered By: Stefan Shultz on 04-07-2025 Neutrophils (Bld) [#/Vol] 5.4 10*3/uL 2.0-7.7 [facility] Absolute neutrophil countOrd ered By: Saulo Barahona on 04-07-2025 Neutrophils (Bld) [#/Vol] 4.6 10*3/uL 2.0-7.7 [facility] Activated partial thrombopla stin time (aPTT) in platelet poor plasma by coagulation aOrdered By: Saulo Barahona on 04-07-2025 aPTT Coag (PPP) [Time] 31.6 s 24.1-36.2 [facility] Anion gap in Serum or Plasma Ordered By: Stefan Shultz on 04-07-2025 Anion gap [Moles/Vol] 11 mmol/L 5-15 [facility] Automated lymphocyte count a s percentage of total leukocytesOrdered By: Stefan Shultz on 04-07-2025 Lymphocytes/100 WBC Auto (Unsp spec) 20.0 % [facility] Automated lymphocyte count a s percentage of total leukocytesOrdered By: Saulo Barahona on 04-07-2025 Lymphocytes/100 WBC Auto (Unsp spec) 24.4 % [facility] BUN/creatinine ratioOrdered By: Stefan Shultz on 04-07-2025 Urea nitrogen/Creatinine [Mass ratio] 12.7 mg/mg 08-28 [facility] Basic Metabolic Profile (BMP )on 04-07-2025 BUN/CRE 12.7 RATIO Normal 08-28 [facility] Comment on above: Performed By: #### L 100.0100, L500.2500 ####[facility] [address] [place], [address] Calcium [Mass/Vol] 8.9 mg/dL Normal 7.6-11.0 [facility] Comment on above: Performed By: #### L 100.0100, L500.2500 ####[facility] [address] [place], [address] Chloride [Moles/Vol] 100 mmol/L Normal 98-108 [facility] Comment on above: Performed By: #### L 100.0100, L500.2500 ####[facility] [address] [place], [address] CO2 [Moles/Vol] 21.1 mmol/L Normal 21.0-32.0 [facility] Comment on above: Performed By: #### L 100.0100, L500.2500 ####[facility] [address] [place], [address] Creatinine [Mass/Vol] 0.62 mg/dL Low 0.70-1.20 [facility] Comment on above: Performed By: #### L 100.0100, L500.2500 ####[facility] [address] [place], [address] ECRCL 61.74 ml/min Normal 50-250 [facility] Comment on above: Performed By: #### L 100.0100, L500.2500 ####[facility] [address] [place], [address] GAP 11 Normal 5-15 [facility] Comment on above: Performed By: #### L 100.0100, L500.2500 ####[facility] [address] [place], [address] GFR/1.73 sq M.predicted among non-blacks MDRD (S/P/Bld) [Vol rate/Area] 103 mL/min/{1.73_m2} Normal >60 [facility] Comment on above: Result Comment: mL/m in/1.73m2 CKD-EPI Creatinine Equation (2020) Performed By: #### L 100.0100, L500.2500 ####[facility] [address] [place], [address] Glucose [Mass/Vol] 84 mg/dL Normal 70-99 [facility] Comment on above: Performed By: #### L 100.0100, L500.2500 ####[facility] [address] [place], [address] Potassium [Moles/Vol] 4.5 mmol/L Normal 3.3-5.1 [facility] Comment on above: Result Comment: Hemo lysis present, Results??could be affected.?? Performed By: #### L 100.0100, L500.2500 ####[facility] [address] [place], [address] Sodium [Moles/Vol] 132 mmol/L Low 133-145 [facility] Comment on above: Performed By: #### L 100.0100, L500.2500 ####[facility] [address] [place], [address] Urea nitrogen [Mass/Vol] 8 mg/dL Normal 4-19 [facility] Comment on above: Performed By: #### L 100.0100, L500.2500 ####[facility] [address] [place], [address] Basophil percentageOrdered B y: Stefan Shultz on 04-07-2025 Basophils/100 WBC (Bld) 0.6 % 0-1 [facility] Basophil percentageOrdered B y: Saulo Barahona on 04-07-2025 Basophils/100 WBC (Bld) 1.0 % 0-1 [facility] Biopsy/Inj or Needle Placeme nton 04-07-2025 Biopsy/Inj or Needle Placement Normal [facility] CBC W/Diff, Automatedon 03-11 Absolute Lymph 1.62 X10 3/uL Normal 0.83-4.51 [facility] Comment on above: Performed By: #### L 100.0100, L500.2500 ####[facility] [address] [place], [address] Absolute Neut 5.4 X10 3/uL Normal 2.0-7.7 [facility] Comment on above: Performed By: #### L 100.0100, L500.2500 ####[facility] [address] [place], [address] Basophils/100 WBC (Bld) 0.6 % Normal 0-1 [facility] Comment on above: Performed By: #### L 100.0100, L500.2500 ####[facility] [address] [place], [address] Eosinophils/100 WBC (Bld) 0.7 % Normal 0-5 [facility] Comment on above: Performed By: #### L 100.0100, L500.2500 ####[facility] [address] [place], [address] Erythrocyte distribution width (RBC) [Ratio] 14.3 % Normal 11.6-14.6 [facility] Comment on above: Performed By: #### L 100.0100, L500.2500 ####[facility] [address] [place], [address] Hematocrit (Bld) [Volume fraction] 41.7 % Normal 40-54 [facility] Comment on above: Performed By: #### L 100.0100, L500.2500 ####[facility] [address] [place], [address] Hemoglobin (Bld) [Mass/Vol] 14.5 g/dL Normal 13.0-16. 5 [facility] Comment on above: Performed By: #### L 100.0100, L500.2500 ####[facility] [address] [place], [address] IG% 0.500 Normal 0.0-0.9 [facility] Comment on above: Result Comment: IG% - Immature Granulocytes (promyelocytes, myelocytes andmetamyelocytes) > 1% indicates that a LEFT SHIFT is Present. Performed By: #### L 100.0100, L500.2500 ####[facility] [address] [place], [address] Lymphocytes/100 WBC (Bld) 20.0 % Normal 19-41 [facility] Comment on above: Performed By: #### L 100.0100, L500.2500 ####[facility] [address] [place], [address] MCH (RBC) [Entitic mass] 30.5 pg Normal 27.0-32.0 [facility] Comment on above: Performed By: #### L 100.0100, L500.2500 ####[facility] [address] [place], [address] MCHC (RBC) [Mass/Vol] 34.8 g/dL Normal 32-36 [facility] Comment on above: Performed By: #### L 100.0100, L500.2500 ####[facility] [address] [place], [address] MCV (RBC) [Entitic vol] 87.6 fL Normal 80-94 [facility] Comment on above: Performed By: #### L 100.0100, L500.2500 ####[facility] [address] [place], [address] Monocytes/100 WBC (Bld) 12.0 % High 0-10 [facility] Comment on above: Performed By: #### L 100.0100, L500.2500 ####[facility] [address] [place], [address] Neutrophils/100 WBC (Bld) 66.2 % Normal 47-70 [facility] Comment on above: Performed By: #### L 100.0100, L500.2500 ####[facility] [address] [place], [address] Nucleated RBC (Bld) [#/Vol] 0 10*3/uL Normal 0-5 [facility] Comment on above: Performed By: #### L 100.0100, L500.2500 ####[facility] [address] [place], [address] Platelet mean volume (Bld) [Entitic vol] 10.0 fL Normal 6.2-12.0 [facility] Comment on above: Performed By: #### L 100.0100, L500.2500 ####[facility] [address] [place], [address] Platelets (Bld) [#/Vol] 309 10*3/uL Normal 150-450 [facility] Comment on above: Performed By: #### L 100.0100, L500.2500 ####[facility] [address] [place], [address] RBC (Bld) [#/Vol] 4.76 10*6/uL Normal 4.6-6.2 [facility] Comment on above: Performed By: #### L 100.0100, L500.2500 ####[facility] [address] [place], [address] RDW SD 46.2 fl High 35.1-43.9 [facility] Comment on above: Performed By: #### L 100.0100, L500.2500 ####[facility] [address] [place], [address] WBC (Bld) [#/Vol] 8.1 10*3/uL Normal 4.4-11.0 [facility] Comment on above: Performed By: #### L 100.0100, L500.2500 ####[facility] [address] [place], [address] Absolute Lymph 1.95 X10 3/uL Normal 0.83-4.51 [facility] Comment on above: Performed By: #### L 100.0100, L300.3900, L300.4310 ####[facility] [address] [place], [address] Absolute Neut 4.6 X10 3/uL Normal 2.0-7.7 [facility] Comment on above: Performed By: #### L 100.0100, L300.3900, L300.4310 ####[facility] [address] [place], [address] Basophils/100 WBC (Bld) 1.0 % Normal 0-1 [facility] Comment on above: Performed By: #### L 100.0100, L300.3900, L300.4310 ####[facility] [address] [place], [address] Eosinophils/100 WBC (Bld) 1.4 % Normal 0-5 [facility] Comment on above: Performed By: #### L 100.0100, L300.3900, L300.4310 ####[facility] [address] [place], [address] Erythrocyte distribution width (RBC) [Ratio] 14.3 % Normal 11.6-14.6 [facility] Comment on above: Performed By: #### L 100.0100, L300.3900, L300.4310 ####[facility] [address] [place], [address] Hematocrit (Bld) [Volume fraction] 44.7 % Normal 40-54 [facility] Comment on above: Performed By: #### L 100.0100, L300.3900, L300.4310 ####[facility] [address] [place], [address] Hemoglobin (Bld) [Mass/Vol] 15.6 g/dL Normal 13.0-16. 5 [facility] Comment on above: Performed By: #### L 100.0100, L300.3900, L300.4310 ####[facility] [address] [place], [address] IG% 0.400 Normal 0.0-0.9 [facility] Comment on above: Result Comment: IG% - Immature Granulocytes (promyelocytes, myelocytes andmetamyelocytes) > 1% indicates that a LEFT SHIFT is Present. Performed By: #### L 100.0100, L300.3900, L300.4310 ####[facility] [address] [place], [address] Lymphocytes/100 WBC (Bld) 24.4 % Normal 19-41 [facility] Comment on above: Performed By: #### L 100.0100, L300.3900, L300.4310 ####[facility] [address] [place], [address] MCH (RBC) [Entitic mass] 30.6 pg Normal 27.0-32.0 [facility] Comment on above: Performed By: #### L 100.0100, L300.3900, L300.4310 ####[facility] [address] [place], [address] MCHC (RBC) [Mass/Vol] 34.9 g/dL Normal 32-36 [facility] Comment on above: Performed By: #### L 100.0100, L300.3900, L300.4310 ####[facility] [address] [place], [address] MCV (RBC) [Entitic vol] 87.8 fL Normal 80-94 [facility] Comment on above: Performed By: #### L 100.0100, L300.3900, L300.4310 ####[facility] [address] [place], [address] Monocytes/100 WBC (Bld) 15.2 % High 0-10 [facility] Comment on above: Performed By: #### L 100.0100, L300.3900, L300.4310 ####[facility] [address] [place], [address] Neutrophils/100 WBC (Bld) 57.6 % Normal 47-70 [facility] Comment on above: Performed By: #### L 100.0100, L300.3900, L300.4310 ####[facility] [address] [place], [address] Nucleated RBC (Bld) [#/Vol] 0 10*3/uL Normal 0-5 [facility] Comment on above: Performed By: #### L 100.0100, L300.3900, L300.4310 ####[facility] [address] [place], [address] Platelet mean volume (Bld) [Entitic vol] 9.8 fL Normal 6.2-12.0 [facility] Comment on above: Performed By: #### L 100.0100, L300.3900, L300.4310 ####[facility] [address] [place], [address] Platelets (Bld) [#/Vol] 319 10*3/uL Normal 150-450 [facility] Comment on above: Performed By: #### L 100.0100, L300.3900, L300.4310 ####[facility] [address] [place], [address] RBC (Bld) [#/Vol] 5.09 10*6/uL Normal 4.6-6.2 [facility] Comment on above: Performed By: #### L 100.0100, L300.3900, L300.4310 ####[facility] [address] [place], [address] RDW SD 45.9 fl High 35.1-43.9 [facility] Comment on above: Performed By: #### L 100.0100, L300.3900, L300.4310 ####[facility] [address] [place], [address] WBC (Bld) [#/Vol] 8.0 10*3/uL Normal 4.4-11.0 [facility] Comment on above: Performed By: #### L 100.0100, L300.3900, L300.4310 ####[facility] [address] [place], [address] Carbon dioxide, total [Moles /volume] in Central venous bloodOrdered By: Stefan Shultz on 04-07-2025 CO2 [Moles/Vol] 21.1 mmol/L 21.0-32.0 [facility] Chest Insp/Exp 2 Viewon 03-11 Chest Insp/Exp 2 View Normal [facility] Chest Insp/Exp 2 View Normal [facility] Chloride assayOrdered By: Corazon Shultz on 04-07-2025 Chloride [Moles/Vol] 100 mmol/L 98-108 [facility] Consultation - Surgicalon Consultation - Surgical Normal [facility] Emergency Department Summary on 04-07-2025 Emergency Department Summary Normal [facility] Eosinophil percentageOrdered By: Stefan Shultz on 04-07-2025 Eosinophils/100 WBC (Bld) 0.7 % 0-5 [facility] Eosinophil percentageOrdered By: Saulo Barahona on 04-07-2025 Eosinophils/100 WBC (Bld) 1.4 % 0-5 [facility] Erythrocyte distribution wid th ratioOrdered By: Stefan Shultz on 04-07-2025 Erythrocyte distribution width (RBC) [Ratio] 14.3 % 11.6-14.6 [facility] Erythrocyte distribution wid th ratioOrdered By: Saulo Barahona on 04-07-2025 Erythrocyte distribution width (RBC) [Ratio] 14.3 % 11.6-14.6 [facility] Erythrocyte distribution wid th standard deviationOrdered By: Stefan Shultz on 04-07-2025 Erythrocyte distribution width (RBC) [Ratio] 46.2 fl High 35.1-43.9 [facility] Erythrocyte distribution wid th standard deviationOrdered By: Saulo Barahona on 04-07-2025 Erythrocyte distribution width (RBC) [Ratio] 45.9 fl High 35.1-43.9 [facility] Glomerular filtration rate ( GFR) estimation/1.73 sq m using serum, plasma, or whole bOrdered By: Stefan Shultz on 04-07-2025 GFR/1.73 sq M.predicted among non-blacks MDRD (S/P/Bld) [Vol rate/Area] 103 mL/min/{1.73_m2} >60 [facility] Comment on above: mL/min/1.73m2 CKD-EP I Creatinine Equation (2020) H AND P Exam - Hospitaliston 04-07-2025 H&P Exam - Hospitalist Normal [facility] Hematocrit Auto (Bld) [Volum e fraction]Ordered By: Stefan Shultz on 04-07-2025 Hematocrit (Bld) [Volume fraction] 41.7 % 40-54 [facility] Hematocrit Auto (Bld) [Volum e fraction]Ordered By: Saulo Barahona on 04-07-2025 Hematocrit (Bld) [Volume fraction] 44.7 % 40-54 [facility] Hemoglobin measurementOrdere d By: Stefan Shultz on 04-07-2025 Hemoglobin (Bld) [Mass/Vol] 14.5 g/dL 13.0-16. 5 [facility] Hemoglobin measurementOrdere d By: Saulo Barahona on 04-07-2025 Hemoglobin (Bld) [Mass/Vol] 15.6 g/dL 13.0-16. 5 [facility] Immature granulocytes/100 WB C Auto (Bld)Ordered By: Stefan Shultz on 04-07-2025 Immature granulocytes/100 WBC (Bld) 0.500 % 0.0-0.9 [facility] Comment on above: IG% - Immature Granu locytes (promyelocytes, myelocytes and metamyelocytes) > 1% indicates that a LEFT SHIFT is Present. Immature granulocytes/100 WB C Auto (Bld)Ordered By: Saulo Barahona on 04-07-2025 Immature granulocytes/100 WBC (Bld) 0.400 % 0.0-0.9 [facility] Comment on above: IG% - Immature Granu locytes (promyelocytes, myelocytes and metamyelocytes) > 1% indicates that a LEFT SHIFT is Present. Immunohistochemical Stainson 04-07-2025 Immunohistochemical Stains Normal [facility] Comment on above: Performed By: #### P [facility] ####[facility] [address] [place], [place], [id number] International normalized rat io (INR) calculationOrdered By: Saulo Barahnoa on 04-07-2025 INR Coag (Bld) [Relative time] 1.0 {INR} [facility] MCV (mean corpuscular volume ) determinationOrdered By: Stefan Shultz on 04-07-2025 MCV (RBC) [Entitic vol] 87.6 fL 80-94 [facility] MCV (mean corpuscular volume ) determinationOrdered By: Saulo Barahona on 04-07-2025 MCV (RBC) [Entitic vol] 87.8 fL 80-94 [facility] [facility] Mean corpuscular hemoglobin (MCH) determinationOrdered By: Stefan Shultz on 04-07-2025 MCH (RBC) [Entitic mass] 30.5 pg 27.0-32.0 [facility] Mean corpuscular hemoglobin (MCH) determinationOrdered By: Saulo Barahona on 04-07-2025 MCH (RBC) [Entitic mass] 30.6 pg 27.0-32.0 [facility] Mean corpuscular hemoglobin concentration (MCHC) determinationOrdered By: Stefan Martinone on 04-07-2025 MCHC (RBC) [Mass/Vol] 34.8 g/dL 32-36 [facility] Mean corpuscular hemoglobin concentration (MCHC) determinationOrdered By: Saulo Barahona on 04-07-2025 MCHC (RBC) [Mass/Vol] 34.9 g/dL -36 [facility] Mean platelet volume determi nationOrdered By: Stefan Shultz on 04-07-2025 Platelet mean volume (Bld) [Entitic vol] 10.0 fL 6.2-12.0 [facility] Mean platelet volume determi nationOrdered By: Saulo Barahona on 04-07-2025 Platelet mean volume (Bld) [Entitic vol] 9.8 fL 6.2-12.0 [facility] Monocyte percentageOrdered B y: Stefan Shultz on 04-07-2025 Monocytes/100 WBC (Bld) 12.0 % High 0-10 [facility] Monocyte percentageOrdered B y: Saulo Barahona on 04-07-2025 Monocytes/100 WBC (Bld) 15.2 % High 0-10 [facility] Neutrophil percentageOrdered By: Stefan Martinone on 04-07-2025 Neutrophils/100 WBC (Bld) 66.2 % 47-70 [facility] Neutrophil percentageOrdered By: Saulo Dowdi on 04-07-2025 Neutrophils/100 WBC (Bld) 57.6 % 47-70 [facility] Nucleated red blood cell per centageOrdered By: Stefan Shultz on 04-07-2025 Nucleated RBC/100 WBC (Bld) [Ratio] 0 % 0-5 [facility] Nucleated red blood cell per centageOrdered By: Saulo Barahona on 04-07-2025 Nucleated RBC/100 WBC (Bld) [Ratio] 0 % 0-5 [facility] Partial Thromboplast Timeon 04-07-2025 aPTT Coag (Bld) [Time] 31.6 s Normal 24.1-36.2 [facility] Comment on above: Performed By: #### L 100.0100, L300.3900, L300.4310 ####[facility] [address] [place], [address] Platelet countOrdered By: Corazon Shultz on 04-07-2025 Platelets (Bld) [#/Vol] 309 10*3/uL 150-450 [facility] Platelet countOrdered By: Boone Barahona on 04-07-2025 Platelets (Bld) [#/Vol] 319 10*3/uL 150-450 [facility] Potassium measurement (mass/ volume)Ordered By: Stefan Shultz on 04-07-2025 Potassium (Unsp spec) [Mass/Vol] 4.5 mmol/L 3.3-5.1 [facility] Comment on above: Hemolysis present, R esults could be affected. Prothrombin Time w/INRon INR Coag (PPP) [Relative time] 1.0 {INR} Normal [facility] Comment on above: Performed By: #### L 100.0100, L300.3900, L300.4310 ####[facility] [address] [place], [address] PT Coag (PPP) [Time] 13.4 s Normal 11.7-14.9 [facility] Comment on above: Performed By: #### L 100.0100, L300.3900, L300.4310 ####[facility] [address] [place], [address] Prothrombin timeOrdered By: Saulo Barahona on 04-07-2025 PT Coag (PPP) [Time] 13.4 s 11.7-14.9 [facility] RBC Auto (Bld) [#/Vol]Ordere d By: Stefan Shultz on 04-07-2025 RBC (Bld) [#/Vol] 4.76 10*6/uL 4.6-6.2 [facility] RBC Auto (Bld) [#/Vol]Ordere d By: Saulo Barahona on 04-07-2025 RBC (Bld) [#/Vol] 5.09 10*6/uL 4.6-6.2 [facility] Serum creatinine measurement (mass/volume)Ordered By: Stefan Shultz on 04-07-2025 Creatinine [Mass/Vol] 0.62 mg/dL Low 0.70-1.20 [facility] Serum glucose measurement (m ass/volume)Ordered By: Stefan Shultz on 04-07-2025 Glucose [Mass/Vol] 84 mg/dL 70-99 [facility] Serum or plasma calcium francoise urement (mass/volume)Ordered By: Stefan Shultz on 04-07-2025 Calcium [Mass/Vol] 8.9 mg/dL 7.6-11.0 [facility] Serum or plasma urea nitroge n measurement (mass/volume)Ordered By: Stefan Shultz on 04-07-2025 Urea nitrogen [Mass/Vol] 8 mg/dL 4-19 [facility] Sodium levelOrdered By: Darwin Shultz on 04-07-2025 Sodium [Moles/Vol] 132 mmol/L Low 133-145 [facility] White blood cell (WBC) count Ordered By: Stefan Shultz on 04-07-2025 WBC (Bld) [#/Vol] 8.1 10*3/uL 4.4-11.0 [facility] White blood cell (WBC) count Ordered By: Saulo Barahona on 04-07-2025 WBC (Bld) [#/Vol] 8.0 10*3/uL 4.4-11.0 [facility] Pulmonary Visit Reporton Pulmonary Visit Report Normal [facility] 6 Minute Walk Teston 04-25-2 025 6 Minute Walk Test Normal [facility] Chest WITH Contraston 2024 Chest WITH Contrast Normal [facility] Pulmonary Visit Reporton Pulmonary Visit Report Normal [facility] MR/BMS.BVSon 12-26-2024 MR/BMS.BVS Normal [facility] AAA Screeningon 12-08-2024 AAA Screening Normal [facility] CTA Head AND Neck W/ Contras ton 12-01-2024 CTA Head AND Neck W/ Contrast Normal [facility] MR/BMS.BVSon 11-11-2024 MR/BMS.BVS Normal [facility] Absolute neutrophil countOrd ered By: Janak Ulloa on 11-08-2024 Neutrophils (Bld) [#/Vol] 3.0 10*3/uL 2.0-7.7 [facility] Basic Metabolic Profile (BMP )on 11-08-2024 BUN/CRE 14.2 RATIO Normal 10-20 [facility] Comment on above: Performed By: #### L 100.0100, L500.2500 ####[facility] [address] [place], [address] CA,Total 8.8 mg/dL Normal 8.5-10.1 [facility] Comment on above: Performed By: #### L 100.0100, L500.2500 ####[facility] [address] [place], [address] Chloride [Moles/Vol] 102 mmol/L Normal 98-107 [facility] Comment on above: Performed By: #### L 100.0100, L500.2500 ####[facility] [address] [place], [address] CO2 [Moles/Vol] 24.0 mmol/L Normal 21.0-32.0 [facility] Comment on above: Performed By: #### L 100.0100, L500.2500 ####[facility] [address] [place], [address] Creatinine [Mass/Vol] 0.56 mg/dL Low 0.70-1.30 [facility] Comment on above: Result Comment: The validity of the calculated GFR GFRAA in patients over70 years has not been determined. Clinical correlation isessential. Performed By: #### L 100.0100, L500.2500 ####[facility] [address] [place], [address] ECRCL 62.00 ml/min Normal [facility] Comment on above: Performed By: #### L 100.0100, L500.2500 ####[facility] [address] [place], [address] EST GFR - AA 185 mL/min Normal >60 [facility] Comment on above: Result Comment: Afri can Faroese GFR Calc Performed By: #### L 100.0100, L500.2500 ####[facility] [address] [place], [address] GAP 5 Normal 5-15 [facility] Comment on above: Performed By: #### L 100.0100, L500.2500 ####[facility] [address] [place], [address] GFR/1.73 sq M.predicted among non-blacks MDRD (S/P/Bld) [Vol rate/Area] 153 mL/min/{1.73_m2} Normal >60 [facility] Comment on above: Result Comment: Non- GFR Calc Performed By: #### L 100.0100, L500.2500 ####[facility] [address] [place], [address] Glucose [Mass/Vol] 86 mg/dL Normal 74-106 [facility] Comment on above: Performed By: #### L 100.0100, L500.2500 ####[facility] [address] [place], [address] Potassium [Moles/Vol] 4.3 mmol/L Normal 3.5-5.1 [facility] Comment on above: Performed By: #### L 100.0100, L500.2500 ####[facility] [address] [place], [address] Sodium [Moles/Vol] 131 mmol/L Low 136-145 [facility] Comment on above: Performed By: #### L 100.0100, L500.2500 ####[facility] [address] [place], [address] Urea nitrogen [Mass/Vol] 8 mg/dL Normal 7-18 [facility] Comment on above: Performed By: #### L 100.0100, L500.2500 ####[facility] [address] [place], [address] Basophil percentageOrdered B y: Janak Ulloa on 11-08-2024 Basophils/100 WBC (Bld) 0.7 % 0-1 [facility] Blood urea nitrogen (BUN)/cr eatinine ratioOrdered By: Janak Ulloa on 11-08-2024 Urea nitrogen/Creatinine [Mass ratio] 14.2 mg/mg 10-20 [facility] CBC W/Diff, Automatedon - Absolute Lymph 1.38 X10 3/uL Normal 0.83-4.51 [facility] Comment on above: Performed By: #### L 100.0100, L500.2500 ####[facility] [address] [place], [address] Absolute Neut 3.0 X10 3/uL Normal 2.0-7.7 [facility] Comment on above: Performed By: #### L 100.0100, L500.2500 ####[facility] [address] [place], [address] Basophils/100 WBC (Bld) 0.7 % Normal 0-1 [facility] Comment on above: Performed By: #### L 100.0100, L500.2500 ####[facility] [address] [place], [address] Eosinophils/100 WBC (Bld) 2.0 % Normal 0-5 [facility] Comment on above: Performed By: #### L 100.0100, L500.2500 ####[facility] [address] [place], [address] Erythrocyte distribution width (RBC) [Ratio] 13.2 % Normal 11.6-14.6 [facility] Comment on above: Performed By: #### L 100.0100, L500.2500 ####[facility] [address] [place], [address] Hematocrit (Bld) [Volume fraction] 34.6 % Low 40-54 [facility] Comment on above: Performed By: #### L 100.0100, L500.2500 ####[facility] [address] [place], [address] Hemoglobin (Bld) [Mass/Vol] 12.3 g/dL Low 13.0-16. 5 [facility] Comment on above: Performed By: #### L 100.0100, L500.2500 ####[facility] [address] [place], [address] IG% 0.500 Normal 0.0-0.9 [facility] Comment on above: Result Comment: IG% - Immature Granulocytes (promyelocytes, myelocytes andmetamyelocytes) > 1% indicates that a LEFT SHIFT is Present. Performed By: #### L 100.0100, L500.2500 ####[facility] [address] [place], [address] Lymphocytes/100 WBC (Bld) 24.7 % Normal 19-41 [facility] Comment on above: Performed By: #### L 100.0100, L500.2500 ####[facility] [address] [place], [address] MCH (RBC) [Entitic mass] 31.4 pg Normal 27.0-32.0 [facility] Comment on above: Performed By: #### L 100.0100, L500.2500 ####[facility] [address] [place], [address] MCHC (RBC) [Mass/Vol] 35.5 g/dL Normal 32-36 [facility] Comment on above: Performed By: #### L 100.0100, L500.2500 ####[facility] [address] [place], [address] MCV (RBC) [Entitic vol] 88.3 fL Normal 80-94 [facility] Comment on above: Performed By: #### L 100.0100, L500.2500 ####[facility] [address] [place], [address] Monocytes/100 WBC (Bld) 18.1 % High 0-10 [facility] Comment on above: Performed By: #### L 100.0100, L500.2500 ####[facility] [address] [place], [address] Neutrophils/100 WBC (Bld) 54.0 % Normal 47-70 [facility] Comment on above: Performed By: #### L 100.0100, L500.2500 ####[facility] [address] [place], [address] Nucleated RBC (Bld) [#/Vol] 0 10*3/uL Normal 0-5 [facility] Comment on above: Performed By: #### L 100.0100, L500.2500 ####[facility] [address] [place], [address] Platelet mean volume (Bld) [Entitic vol] 9.8 fL Normal 6.2-12.0 [facility] Comment on above: Performed By: #### L 100.0100, L500.2500 ####[facility] [address] [place], [address] Platelets (Bld) [#/Vol] 294 10*3/uL Normal 150-450 [facility] Comment on above: Performed By: #### L 100.0100, L500.2500 ####[facility] [address] [place], [address] RBC (Bld) [#/Vol] 3.92 10*6/uL Low 4.6-6.2 [facility] Comment on above: Performed By: #### L 100.0100, L500.2500 ####[facility] [address] [place], [address] RDW SD 42.9 fl Normal 35.1-43.9 [facility] Comment on above: Performed By: #### L 100.0100, L500.2500 ####[facility] [address] [place], [address] WBC (Bld) [#/Vol] 5.6 10*3/uL Normal 4.4-11.0 [facility] Comment on above: Performed By: #### L 100.0100, L500.2500 ####[facility] [address] [place], [address] Carbon dioxide measurementOr dered By: Janak Ulloa on 11-08-2024 CO2 [Moles/Vol] 24.0 mmol/L 21.0-32.0 [facility] Chloride measurementOrdered By: Janak Ulloa on 11-08-2024 Chloride [Moles/Vol] 102 mmol/L 98-107 [facility] Discharge Instructionon 10-11 Discharge Instruction Normal [facility] Eosinophil percentageOrdered By: Janak Ulloa on 11-08-2024 Eosinophils/100 WBC (Bld) 2.0 % 0-5 [facility] Erythrocyte distribution wid th (RBC) [Ratio]Ordered By: Janak Ulloa on 11-08-2024 Erythrocyte distribution width (RBC) [Entitic vol] 42.9 fL 35.1-43.9 [facility] Erythrocyte distribution wid th ratioOrdered By: Janak Ulloa on 11-08-2024 Erythrocyte distribution width (RBC) [Ratio] 13.2 % 11.6-14.6 [facility] Estimated glomerular filtrat ion rate (GFR) AmericanOrdered By: Janak Ulloa on 11-08-2024 Estimated GFR (MDRD) Amer 185 mL/min >60 [facility] Comment on above: GFR Calc Estimation of creatinine jonathan aranceOrdered By: Janak Ulloa on 11-08-2024 Estimated Creatinine Clearance Calc 62.00 ml/min [facility] Glomerular filtration rate ( GFR) estimationOrdered By: Janak Ulloa on 11-08-2024 Estimated GFR (MDRD) Non-Af Amer 153 mL/min >60 [facility] Comment on above: Non- GFR Calc Glucose measurementOrdered B y: Janak Ulloa on 11-08-2024 Glucose [Mass/Vol] 86 mg/dL 74-106 [facility] Hematocrit Auto (Bld) [Volum e fraction]Ordered By: Janak Ulloa on 11-08-2024 Hematocrit (Bld) [Volume fraction] 34.6 % Low 40-54 [facility] Hemoglobin measurementOrdere d By: Janak Ulloa on 11-08-2024 Hemoglobin (Bld) [Mass/Vol] 12.3 g/dL Low 13.0-16. 5 [facility] Immature granulocytes/100 WB C Auto (Bld)Ordered By: Janak Ulloa on 11-08-2024 Immature granulocytes/100 WBC (Bld) 0.500 % 0.0-0.9 [facility] Comment on above: IG% - Immature Granu locytes (promyelocytes, myelocytes and metamyelocytes) > 1% indicates that a LEFT SHIFT is Present. Lymphocytes Auto (Unsp spec) [#/Vol]Ordered By: Janak Ulloa on 11-08-2024 Lymphocytes (Bld) [#/Vol] 1.38 10*3/uL 0.83-4.5 1 [facility] Lymphocytes/100 WBC Auto (Un sp spec)Ordered By: Janak Ulloa on 11-08-2024 Lymphocytes/100 WBC (Bld) 24.7 % 19-41 [facility] MCV (mean corpuscular volume ) determinationOrdered By: Janak Ulloa on 11-08-2024 MCV (RBC) [Entitic vol] 88.3 fL 80-94 [facility] Mean corpuscular hemoglobin (MCH) determinationOrdered By: Janak Ulloa on 11-08-2024 MCH (RBC) [Entitic mass] 31.4 pg 27.0-32.0 [facility] Mean corpuscular hemoglobin concentration (MCHC) determinationOrdered By: Janak Ulloa on 11-08-2024 MCHC (RBC) [Mass/Vol] 35.5 g/dL 32-36 [facility] Mean platelet volume determi nationOrdered By: Janak Ulloa on 11-08-2024 Platelet mean volume (Bld) [Entitic vol] 9.8 fL 6.2-12.0 [facility] Monocyte percentageOrdered B y: Janak Ulloa on 11-08-2024 Monocytes/100 WBC (Bld) 18.1 % High 0-10 [facility] Neutrophil percentageOrdered By: Janak Ulloa on 11-08-2024 Neutrophils/100 WBC (Bld) 54.0 % 47-70 [facility] Nucleated red blood cell per centageOrdered By: Janak Ulloa on 11-08-2024 Nucleated RBC/100 WBC (Bld) [Ratio] 0 % 0-5 [facility] PROLACTIN 4465on 11-08-2024 PROLACTIN 6.2 ng/mL Normal 3.6-25.2 [facility] Comment on above: Result Comment: Perf ormed at: CB - [facility] [address] [id number] Director: Sascha Diaz PhD, Phone: [phone] Performed By: #### L 007.0273, H0299.7636, B500.9597 ####[facility] [address] [place], [address] Platelet countOrdered By: Cleo Ulloa on 11-08-2024 Platelets (Bld) [#/Vol] 294 10*3/uL 150-450 [facility] Potassium measurementOrdered By: Janak Ulloa on 11-08-2024 Potassium [Moles/Vol] 4.3 mmol/L 3.5-5.1 [facility] RBC Auto (Bld) [#/Vol]Ordere d By: Janak Ulloa on 11-08-2024 RBC (Bld) [#/Vol] 3.92 10*6/uL Low 4.6-6.2 [facility] Serum anion gap measurementO rdered By: Janak Ulloa on 11-08-2024 Anion gap [Moles/Vol] 5 mmol/L 5-15 [facility] Serum or plasma calcium francoise urement (mass/volume)Ordered By: Janak Ulloa on 11-08-2024 Calcium [Mass/Vol] 8.8 mg/dL 8.5-10.1 [facility] Serum or plasma creatinine m easurement (mass/volume)Ordered By: Janak Ulloa on 11-08-2024 Creatinine [Mass/Vol] 0.56 mg/dL Low 0.70-1.30 [facility] Comment on above: The validity of the calculated GFR & GFRAA in patients over 70 years has not been determined. Clinical correlation is essential. Serum or plasma urea nitroge n measurement (mass/volume)Ordered By: Janak Ulloa on 11-08-2024 Urea nitrogen [Mass/Vol] 8 mg/dL 7-18 [facility] Sodium levelOrdered By: Tye Ulloa on 11-08-2024 Sodium [Moles/Vol] 131 mmol/L Low 136-145 [facility] White blood cell (WBC) count Ordered By: Janak Ulloa on 11-08-2024 WBC (Bld) [#/Vol] 5.6 10*3/uL 4.4-11.0 [facility] Albumin to globulin ratioOrd ered By: Goldy Law on 11-07-2024 Albumin/Globulin [Mass ratio] 0.9 {ratio} 0.9-2.4 [facility] Basic Metabolic Profile (BMP )on 11-07-2024 BUN Normal 7-18 [facility] Comment on above: Result Comment: Canc elled via OM: MD Ordered Performed By: #### L 500.2500 ####[facility] [address] [place], [address] BUN/CRE Normal 10-20 [facility] Comment on above: Result Comment: Canc elled via OM: MD Ordered Performed By: #### L 500.2500 ####[facility] [address] [place], [address] CA,Total Normal 8.5-10.1 [facility] Comment on above: Result Comment: Canc elled via OM: MD Ordered Performed By: #### L 500.2500 ####[facility] [address] [place], [address] CL Normal 98-107 [facility] Comment on above: Result Comment: Canc elled via OM: MD Ordered Performed By: #### L 500.2500 ####[facility] [address] [place], [address] CO2 Normal 21.0-32.0 [facility] Comment on above: Result Comment: Canc elled via OM: MD Ordered Performed By: #### L 500.2500 ####[facility] [address] [place], [address] CREAT,SERUM Normal 0.70-1.30 [facility] Comment on above: Result Comment: Canc elled via OM: MD Ordered Performed By: #### L 500.2500 ####[facility] [address] [place], [address] EST GFR Normal >60 [facility] Comment on above: Result Comment: Canc elled via OM: MD Ordered Performed By: #### L 500.2500 ####[facility] [address] [place], [address] EST GFR - AA Normal >60 [facility] Comment on above: Result Comment: Canc elled via OM: MD Ordered Performed By: #### L 500.2500 ####[facility] [address] [place], [address] GAP Normal 5-15 [facility] Comment on above: Result Comment: Canc elled via OM: MD Ordered Performed By: #### L 500.2500 ####[facility] [address] [place], [address] GLU Normal 74-106 [facility] Comment on above: Result Comment: Canc elled via OM: MD Ordered Performed By: #### L 500.2500 ####[facility] [address] [place], [address] Potassium Normal 3.5-5.1 [facility] Comment on above: Result Comment: Canc elled via OM: MD Ordered Performed By: #### L 500.2500 ####[facility] [address] [place], [address] Basic Metabolic Profile (BMP) Normal 136-145 [facility] Comment on above: Result Comment: Canc elled via OM: MD Ordered Performed By: #### L 500.2500 ####[facility] [address] [place], [address] BUN Normal 7-18 [facility] Comment on above: Result Comment: Canc elled via OM: MD Ordered Performed By: #### L 500.2500 ####[facility] [address] [place], [address] BUN/CRE Normal 10-20 [facility] Comment on above: Result Comment: Canc elled via OM: MD Ordered Performed By: #### L 500.2500 ####[facility] [address] [place], [address] CA,Total Normal 8.5-10.1 [facility] Comment on above: Result Comment: Canc elled via OM: MD Ordered Performed By: #### L 500.2500 ####[facility] [address] [place], [address] CL Normal 98-107 [facility] Comment on above: Result Comment: Canc elled via OM: MD Ordered Performed By: #### L 500.2500 ####[facility] [address] [place], [address] CO2 Normal 21.0-32.0 [facility] Comment on above: Result Comment: Canc elled via OM: MD Ordered Performed By: #### L 500.2500 ####[facility] [address] [place], [address] CREAT,SERUM Normal 0.70-1.30 [facility] Comment on above: Result Comment: Canc elled via OM: MD Ordered Performed By: #### L 500.2500 ####[facility] [address] [place], [address] EST GFR Normal >60 [facility] Comment on above: Result Comment: Canc elled via OM: MD Ordered Performed By: #### L 500.2500 ####[facility] [address] [place], [address] EST GFR - AA Normal >60 [facility] Comment on above: Result Comment: Canc elled via OM: MD Ordered Performed By: #### L 500.2500 ####[facility] [address] [place], [address] GAP Normal 5-15 [facility] Comment on above: Result Comment: Canc elled via OM: MD Ordered Performed By: #### L 500.2500 ####[facility] [address] [place], [address] GLU Normal 74-106 [facility] Comment on above: Result Comment: Canc elled via OM: MD Ordered Performed By: #### L 500.2500 ####[facility] [address] [place], [address] Potassium Normal 3.5-5.1 [facility] Comment on above: Result Comment: Canc elled via OM: MD Ordered Performed By: #### L 500.2500 ####[facility] [address] [place], [address] Basic Metabolic Profile (BMP) Normal 136-145 [facility] Comment on above: Result Comment: Canc elled via OM: MD Ordered Performed By: #### L 500.2500 ####[facility] [address] [place], [address] BUN Normal 7-18 [facility] Comment on above: Result Comment: Canc elled via OM: MD Ordered Performed By: #### L 500.2500 ####[facility] [address] [place], [address] BUN/CRE Normal 10-20 [facility] Comment on above: Result Comment: Canc elled via OM: MD Ordered Performed By: #### L 500.2500 ####[facility] [address] [place], [address] CA,Total Normal 8.5-10.1 [facility] Comment on above: Result Comment: Canc elled via OM: MD Ordered Performed By: #### L 500.2500 ####[facility] [address] [place], [address] CL Normal 98-107 [facility] Comment on above: Result Comment: Canc elled via OM: MD Ordered Performed By: #### L 500.2500 ####[facility] [address] [place], [address] CO2 Normal 21.0-32.0 [facility] Comment on above: Result Comment: Canc elled via OM: MD Ordered Performed By: #### L 500.2500 ####[facility] [address] [place], [address] CREAT,SERUM Normal 0.70-1.30 [facility] Comment on above: Result Comment: Canc elled via OM: MD Ordered Performed By: #### L 500.2500 ####[facility] [address] [place], [address] EST GFR Normal >60 [facility] Comment on above: Result Comment: Canc elled via OM: MD Ordered Performed By: #### L 500.2500 ####[facility] [address] [place], [address] EST GFR - AA Normal >60 [facility] Comment on above: Result Comment: Canc elled via OM: MD Ordered Performed By: #### L 500.2500 ####[facility] [address] [place], [address] GAP Normal 5-15 [facility] Comment on above: Result Comment: Canc elled via OM: MD Ordered Performed By: #### L 500.2500 ####[facility] [address] [place], [address] GLU Normal 74-106 [facility] Comment on above: Result Comment: Canc elled via OM: MD Ordered Performed By: #### L 500.2500 ####[facility] [address] [place], [address] Potassium Normal 3.5-5.1 [facility] Comment on above: Result Comment: Canc elled via OM: MD Ordered Performed By: #### L 500.2500 ####[facility] [address] [place], [address] Basic Metabolic Profile (BMP) Normal 136-145 [facility] Comment on above: Result Comment: Thuy chaves via OM: Ordered Performed By: #### L 500.2500 ####[facility] [address] [place], [address] BUN/CRE 16.7 RATIO Normal 10-20 [facility] Comment on above: Performed By: #### L 500.2500 ####[facility] [address] [place], [address] CA,Total 8.3 mg/dL Low 8.5-10.1 [facility] Comment on above: Performed By: #### L 500.2500 ####[facility] [address] [place], [address] Chloride [Moles/Vol] 104 mmol/L Normal 98-107 [facility] Comment on above: Performed By: #### L 500.2500 ####[facility] [address] [place], [address] CO2 [Moles/Vol] 22.0 mmol/L Normal 21.0-32.0 [facility] Comment on above: Performed By: #### L 500.2500 ####[facility] [address] [place], [address] Creatinine [Mass/Vol] 0.48 mg/dL Low 0.70-1.30 [facility] Comment on above: Result Comment: The validity of the calculated GFR GFRAA in patients over70 years has not been determined. Clinical correlation isessential. Performed By: #### L 500.2500 ####[facility] [address] [place], [address] ECRCL 63.48 ml/min Normal [facility] Comment on above: Performed By: #### L 500.2500 ####[facility] [address] [place], [address] EST GFR - AA 222 mL/min Normal >60 [facility] Comment on above: Result Comment: Afri can Faroese GFR Calc Performed By: #### L 500.2500 ####[facility] [address] [place], [address] GAP 5 Normal 5-15 [facility] Comment on above: Performed By: #### L 500.2500 ####[facility] [address] [place], [address] GFR/1.73 sq M.predicted among non-blacks MDRD (S/P/Bld) [Vol rate/Area] 183 mL/min/{1.73_m2} Normal >60 [facility] Comment on above: Result Comment: Non- GFR Calc Performed By: #### L 500.2500 ####[facility] [address] [place], [address] Glucose [Mass/Vol] 125 mg/dL High 74-106 [facility] Comment on above: Result Comment: Fast ing Glucose result from 100 to 125 mg/dLsuggests IMPAIRED HOMEOSTASIS per A.D.A. criteria. Performed By: #### L 500.2500 ####[facility] [address] [place], [address] Potassium [Moles/Vol] 4.4 mmol/L Normal 3.5-5.1 [facility] Comment on above: Performed By: #### L 500.2500 ####[facility] [address] [place], [address] Sodium [Moles/Vol] 131 mmol/L Low 136-145 [facility] Comment on above: Performed By: #### L 500.2500 ####[facility] [address] [place], [address] Urea nitrogen [Mass/Vol] 8 mg/dL Normal 7-18 [facility] Comment on above: Performed By: #### L 500.2500 ####[facility] [address] [place], [address] BUN/CRE 17.2 RATIO Normal 10-20 [facility] Comment on above: Performed By: #### L 500.2500 ####[facility] [address] [place], [address] CA,Total 8.2 mg/dL Low 8.5-10.1 [facility] Comment on above: Performed By: #### L 500.2500 ####[facility] [address] [place], [address] Chloride [Moles/Vol] 100 mmol/L Normal 98-107 [facility] Comment on above: Performed By: #### L 500.2500 ####[facility] [address] [place], [address] CO2 [Moles/Vol] 25.0 mmol/L Normal 21.0-32.0 [facility] Comment on above: Performed By: #### L 500.2500 ####[facility] [address] [place], [address] Creatinine [Mass/Vol] 0.46 mg/dL Low 0.70-1.30 [facility] Comment on above: Result Comment: The validity of the calculated GFR GFRAA in patients over70 years has not been determined. Clinical correlation isessential. Performed By: #### L 500.2500 ####[facility] [address] [place], [address] ECRCL 63.48 ml/min Normal [facility] Comment on above: Performed By: #### L 500.2500 ####[facility] [address] [place], [address] EST GFR - AA 230 mL/min Normal >60 [facility] Comment on above: Result Comment: Afri can Faroese GFR Calc Performed By: #### L 500.2500 ####[facility] [address] [place], [address] GAP 3 Low 5-15 [facility] Comment on above: Performed By: #### L 500.2500 ####[facility] [address] [place], [address] GFR/1.73 sq M.predicted among non-blacks MDRD (S/P/Bld) [Vol rate/Area] 190 mL/min/{1.73_m2} Normal >60 [facility] Comment on above: Result Comment: Non- GFR Calc Performed By: #### L 500.2500 ####[facility] [address] [place], [address] Glucose [Mass/Vol] 92 mg/dL Normal 74-106 [facility] Comment on above: Performed By: #### L 500.2500 ####[facility] [address] [place], [address] Potassium [Moles/Vol] 4.6 mmol/L Normal 3.5-5.1 [facility] Comment on above: Performed By: #### L 500.2500 ####[facility] [address] [place], [address] Sodium [Moles/Vol] 128 mmol/L Low 136-145 [facility] Comment on above: Performed By: #### L 500.2500 ####[facility] [address] [place], [address] Urea nitrogen [Mass/Vol] 8 mg/dL Normal 7-18 [facility] Comment on above: Performed By: #### L 500.2500 ####[facility] [address] [place], [address] BUN/CRE 17.9 RATIO Normal 10-20 [facility] Comment on above: Performed By: #### L 500.2500 ####[facility] [address] [place], [address] CA,Total 7.5 mg/dL Low 8.5-10.1 [facility] Comment on above: Performed By: #### L 500.2500 ####[facility] [address] [place], [address] Chloride [Moles/Vol] 96 mmol/L Low 98-107 [facility] Comment on above: Performed By: #### L 500.2500 ####[facility] [address] [place], [address] CO2 [Moles/Vol] 23.0 mmol/L Normal 21.0-32.0 [facility] Comment on above: Performed By: #### L 500.2500 ####[facility] [address] [place], [address] Creatinine [Mass/Vol] 0.50 mg/dL Low 0.70-1.30 [facility] Comment on above: Result Comment: The validity of the calculated GFR GFRAA in patients over70 years has not been determined. Clinical correlation isessential. Performed By: #### L 500.2500 ####[facility] [address] [place], [address] ECRCL 63.97 ml/min Normal [facility] Comment on above: Performed By: #### L 500.2500 ####[facility] [address] [place], [address] EST GFR - AA 211 mL/min Normal >60 [facility] Comment on above: Result Comment: Afri can Faroese GFR Calc Performed By: #### L 500.2500 ####[facility] [address] [place], [address] GAP 8 Normal 5-15 [facility] Comment on above: Performed By: #### L 500.2500 ####[facility] [address] [place], [address] GFR/1.73 sq M.predicted among non-blacks MDRD (S/P/Bld) [Vol rate/Area] 174 mL/min/{1.73_m2} Normal >60 [facility] Comment on above: Result Comment: Non- GFR Calc Performed By: #### L 500.2500 ####[facility] [address] [place], [address] Glucose [Mass/Vol] 98 mg/dL Normal 74-106 [facility] Comment on above: Performed By: #### L 500.2500 ####[facility] [address] [place], [address] Potassium [Moles/Vol] 4.0 mmol/L Normal 3.5-5.1 [facility] Comment on above: Performed By: #### L 500.2500 ####[facility] [address] [place], [address] Sodium [Moles/Vol] 126 mmol/L Low 136-145 [facility] Comment on above: Performed By: #### L 500.2500 ####[facility] [address] [place], [address] Urea nitrogen [Mass/Vol] 9 mg/dL Normal 7-18 [facility] Comment on above: Performed By: #### L 500.2500 ####[facility] [address] [place], [address] Bilirubin, totalOrdered By: Goldy Law on 11-07-2024 Bilirubin [Mass/Vol] 0.90 mg/dL 0.20-1.00 [facility] Comment on above: For patients on eltr ombopag therapy, use of Dimension [place] TBIL is not recommended. CBC W/Diff, Automatedon 10-11 Absolute Lymph 0.90 X10 3/uL Normal 0.83-4.51 [facility] Comment on above: Performed By: #### L 501.5200, L500.4050, L501.2300, L100.0100 ####[facility] [address] [place], [address] Absolute Neut 5.8 X10 3/uL Normal 2.0-7.7 [facility] Comment on above: Performed By: #### L 501.5200, L500.4050, L501.2300, L100.0100 ####[facility] [address] [place], [address] Basophils/100 WBC (Bld) 0.4 % Normal 0-1 [facility] Comment on above: Performed By: #### L 501.5200, L500.4050, L501.2300, L100.0100 ####[facility] [address] [place], [address] Eosinophils/100 WBC (Bld) 0.3 % Normal 0-5 [facility] Comment on above: Performed By: #### L 501.5200, L500.4050, L501.2300, L100.0100 ####[facility] [address] [place], [address] Erythrocyte distribution width (RBC) [Ratio] 12.7 % Normal 11.6-14.6 [facility] Comment on above: Performed By: #### L 501.5200, L500.4050, L501.2300, L100.0100 ####[facility] [address] [place], [address] Hematocrit (Bld) [Volume fraction] 33.4 % Low 40-54 [facility] Comment on above: Performed By: #### L 501.5200, L500.4050, L501.2300, L100.0100 ####[facility] [address] [place], [address] Hemoglobin (Bld) [Mass/Vol] 12.1 g/dL Low 13.0-16. 5 [facility] Comment on above: Performed By: #### L 501.5200, L500.4050, L501.2300, L100.0100 ####[facility] [address] [place], [address] IG% 0.400 Normal 0.0-0.9 [facility] Comment on above: Result Comment: IG% - Immature Granulocytes (promyelocytes, myelocytes andmetamyelocytes) > 1% indicates that a LEFT SHIFT is Present. Performed By: #### L 501.5200, L500.4050, L501.2300, L100.0100 ####[facility] [address] [place], [address] Lymphocytes/100 WBC (Bld) 11.7 % Low 19-41 [facility] Comment on above: Performed By: #### L 501.5200, L500.4050, L501.2300, L100.0100 ####[facility] [address] [place], [address] MCH (RBC) [Entitic mass] 31.5 pg Normal 27.0-32.0 [facility] Comment on above: Performed By: #### L 501.5200, L500.4050, L501.2300, L100.0100 ####[facility] [address] [place], [address] MCHC (RBC) [Mass/Vol] 36.2 g/dL High 32-36 [facility] Comment on above: Performed By: #### L 501.5200, L500.4050, L501.2300, L100.0100 ####[facility] [address] [place], [address] MCV (RBC) [Entitic vol] 87.0 fL Normal 80-94 [facility] Comment on above: Performed By: #### L 501.5200, L500.4050, L501.2300, L100.0100 ####[facility] [address] [place], [address] Monocytes/100 WBC (Bld) 11.7 % High 0-10 [facility] Comment on above: Performed By: #### L 501.5200, L500.4050, L501.2300, L100.0100 ####[facility] [address] [place], [address] Neutrophils/100 WBC (Bld) 75.5 % High 47-70 [facility] Comment on above: Performed By: #### L 501.5200, L500.4050, L501.2300, L100.0100 ####[facility] [address] [place], [address] Nucleated RBC (Bld) [#/Vol] 0 10*3/uL Normal 0-5 [facility] Comment on above: Performed By: #### L 501.5200, L500.4050, L501.2300, L100.0100 ####[facility] [address] [place], [address] Platelet mean volume (Bld) [Entitic vol] 9.4 fL Normal 6.2-12.0 [facility] Comment on above: Performed By: #### L 501.5200, L500.4050, L501.2300, L100.0100 ####[facility] [address] [place], [address] Platelets (Bld) [#/Vol] 296 10*3/uL Normal 150-450 [facility] Comment on above: Performed By: #### L 501.5200, L500.4050, L501.2300, L100.0100 ####[facility] [address] [place], [address] RBC (Bld) [#/Vol] 3.84 10*6/uL Low 4.6-6.2 [facility] Comment on above: Performed By: #### L 501.5200, L500.4050, L501.2300, L100.0100 ####[facility] [address] [place], [address] RDW SD 40.1 fl Normal 35.1-43.9 [facility] Comment on above: Performed By: #### L 501.5200, L500.4050, L501.2300, L100.0100 ####[facility] [address] [place], [address] WBC (Bld) [#/Vol] 7.7 10*3/uL Normal 4.4-11.0 [facility] Comment on above: Performed By: #### L 501.5200, L500.4050, L501.2300, L100.0100 ####[facility] [address] [place], [address] Carotid Duplex Ultrasoundon 11-07-2024 Carotid Duplex Ultrasound Normal [facility] Chest without Contraston Chest without Contrast Normal [facility] Comprehensive Metabolic Prof ilon 11-07-2024 Albumin [Mass/Vol] 2.9 g/dL Low 3.2-5.0 [facility] Comment on above: Performed By: #### L 501.5200, L500.4050, L501.2300, L100.0100 ####[facility] [address] [place], [address] Albumin/Globulin [Mass ratio] 0.9 {ratio} Normal 0.9-2.4 [facility] Comment on above: Performed By: #### L 501.5200, L500.4050, L501.2300, L100.0100 ####[facility] [address] [place], [address] ALK P 94 U/L Normal 45-117 [facility] Comment on above: Performed By: #### L 501.5200, L500.4050, L501.2300, L100.0100 ####[facility] [address] [place], [address] ALT [Catalytic activity/Vol] 38 U/L Normal 16-61 [facility] Comment on above: Performed By: #### L 501.5200, L500.4050, L501.2300, L100.0100 ####[facility] [address] [place], [address] AST [Catalytic activity/Vol] 48 U/L High 15-37 [facility] Comment on above: Performed By: #### L 501.5200, L500.4050, L501.2300, L100.0100 ####[facility] [address] [place], [address] Bilirubin [Mass/Vol] 0.90 mg/dL Normal 0.20-1.00 [facility] Comment on above: Result Comment: For patients on eltrombopag therapy, use of Dimension [place] TBIL is not recommended. Performed By: #### L 501.5200, L500.4050, L501.2300, L100.0100 ####[facility] [address] [place], [address] BUN/CRE 19.4 RATIO Normal 10-20 [facility] Comment on above: Performed By: #### L 501.5200, L500.4050, L501.2300, L100.0100 ####[facility] [address] [place], [address] CA,Total 7.9 mg/dL Low 8.5-10.1 [facility] Comment on above: Performed By: #### L 501.5200, L500.4050, L501.2300, L100.0100 ####[facility] [address] [place], [address] Chloride [Moles/Vol] 97 mmol/L Low 98-107 [facility] Comment on above: Performed By: #### L 501.5200, L500.4050, L501.2300, L100.0100 ####[facility] [address] [place], [address] CO2 [Moles/Vol] 24.0 mmol/L Normal 21.0-32.0 [facility] Comment on above: Performed By: #### L 501.5200, L500.4050, L501.2300, L100.0100 ####[facility] [address] [place], [address] Creatinine [Mass/Vol] 0.52 mg/dL Low 0.70-1.30 [facility] Comment on above: Result Comment: The validity of the calculated GFR GFRAA in patients over70 years has not been determined. Clinical correlation isessential. Performed By: #### L 501.5200, L500.4050, L501.2300, L100.0100 ####[facility] [address] [place], [address] ECRCL 63.46 ml/min Normal [facility] Comment on above: Performed By: #### L 501.5200, L500.4050, L501.2300, L100.0100 ####[facility] [address] [place], [address] EST GFR - AA 204 mL/min Normal >60 [facility] Comment on above: Result Comment: Afri can Faroese GFR Calc Performed By: #### L 501.5200, L500.4050, L501.2300, L100.0100 ####[facility] [address] [place], [address] GAP 4 Low 5-15 [facility] Comment on above: Performed By: #### L 501.5200, L500.4050, L501.2300, L100.0100 ####[facility] [address] [place], [address] GFR/1.73 sq M.predicted among non-blacks MDRD (S/P/Bld) [Vol rate/Area] 169 mL/min/{1.73_m2} Normal >60 [facility] Comment on above: Result Comment: Non- GFR Calc Performed By: #### L 501.5200, L500.4050, L501.2300, L100.0100 ####[facility] [address] [place], [address] Globulin (S) [Mass/Vol] 3.4 g/dL Normal 2.2-4.2 [facility] Comment on above: Performed By: #### L 501.5200, L500.4050, L501.2300, L100.0100 ####[facility] [address] [place], [address] Glucose [Mass/Vol] 98 mg/dL Normal 74-106 [facility] Comment on above: Performed By: #### L 501.5200, L500.4050, L501.2300, L100.0100 ####[facility] [address] [place], [address] Potassium [Moles/Vol] 4.1 mmol/L Normal 3.5-5.1 [facility] Comment on above: Performed By: #### L 501.5200, L500.4050, L501.2300, L100.0100 ####[facility] [address] [place], [address] Sodium [Moles/Vol] 125 mmol/L Low 136-145 [facility] Comment on above: Performed By: #### L 501.5200, L500.4050, L501.2300, L100.0100 ####[facility] [address] [place], [address] T PROT 6.3 g/dL Low 6.4-8.2 [facility] Comment on above: Performed By: #### L 501.5200, L500.4050, L501.2300, L100.0100 ####[facility] [address] [place], [address] Urea nitrogen [Mass/Vol] 10 mg/dL Normal 7-18 [facility] Comment on above: Performed By: #### L 501.5200, L500.4050, L501.2300, L100.0100 ####[facility] [address] [place], [address] Consultation - Intensiviston 11-07-2024 Consultation - Proof Technician Normal [facility] Echo Completeon 11-07-2024 Echo Complete Normal [facility] H AND P Exam - Hospitaliston 11-07-2024 H&P Exam - Hospitalist Normal [facility] L501.4020on 11-07-2024 TROPONIN-I HS 16 pg/mL Normal 3.0-78.0 [facility] Comment on above: Result Comment: Mary Beth knight Note: New Test Units and Gender Specific Reference Ranges. For more information see Policy Stat Procedure [place] High Sensitivity Troponin (TNIH) and attachments. Performed By: #### L 501.4020 ####[facility] [address] [place], [address] Laboratory - Chemistry and C hemistry - challengeOrdered By: Goldy Law on 11-07-2024 AST [Catalytic activity/Vol] 48 U/L High 15-37 [facility] Magnesiumon 11-07-2024 Magnesium [Mass/Vol] 1.7 mg/dL Normal 1.6-2.6 [facility] Comment on above: Performed By: #### L 501.5200, L500.4050, L501.2300, L100.0100 ####[facility] [address] [place], [address] Magnesium measurementOrdered By: Goldy Law on 11-07-2024 Magnesium [Mass/Vol] 1.7 mg/dL 1.6-2.6 [facility] Methadone, urineOrdered By: Goldy Law on 11-07-2024 Urine Methadone Screen Negative < 300 ng/mL [facility] No Panel InformationOrdered By: Goldy Law on 11-07-2024 Urine Drug Screen Comment [facility] Comment on above: CONFIRMATORY TESTING FOR ALL POSITIVE URINE DRUG SCREENRESULTS WILL ONLY BE SENT OUT UPON PHYSICIAN ORDER. VISTA Urine Drug Screen methods provide only preliminaryanalytical test results. A more specific alternate chemicalmethod must be used in order to obtain a confirmedanalytical result. Gas chromatography/mass spectrometery(GC/MS) is the preferred confirmatory method. Clinicalconsideration and professional judgement should be appliedto any drug of abuse test result, particularly whenpreliminary positive results are used. URINE TCA TESTING MUST BE ORDERED SEPARATELY. USE TESTMNEMONIC: UTCA Osmolality (U) [Osmolality]O rdered By: Goldy Law on 11-07-2024 Urine Osmolality 172 mOsm/KG >50 [facility] Comment on above: Normal Urine Referen ce Ranges Random: 50 - 1200 mOsm/kg H20 depending on fluid intake Random: >850 mOsm/kg after 12 hour fluid restriction 24 hour: ~300 - 900 mOsm/kg H2O Osmolality, Serumon 11-07-20 24 OSMOLALITY,SER 258 mOsm/KG Low 280-301 [facility] Comment on above: Performed By: #### L 501.9520, L3100.5400, L501.7300 ####[facility] [address] [place], [place], [address] Osmolality, Urineon 11-07-20 24 OSMOLALITY,UR 172 mOsm/KG Normal [facility] Comment on above: Result Comment: Norm al Urine Reference Ranges Random: 50 - 1200 mOsm/kg H20 depending on fluid intake Random: >850 mOsm/kg after 12 hour fluid restriction 24 hour: 300 - 900 mOsm/kg H2O Performed By: #### L 501.7400 ####[facility] [address] [place], [address] Osmolality, serumOrdered By: Goldy Law on 11-07-2024 Serum Osmolality 258 mOsm/KG Low 280-301 [facility] Phosphoruson 11-07-2024 Phosphate [Mass/Vol] 2.6 mg/dL Normal 2.5-4.9 [facility] Comment on above: Performed By: #### L 501.5200, L500.4050, L501.2300, L100.0100 ####[facility] [address] [place], [address] Phosphorus measurementOrdere d By: Goldy Law on 11-07-2024 Phosphorus Level 2.6 mg/dL 2.5-4.9 [facility] Prolactin [Mass/Vol]Ordered By: Goldy Law on 11-07-2024 Prolactin 6.2 ng/mL 3.6-25.2 [facility] Comment on above: Performed at: [place] [id number] Director: Sascha Diaz PhD, Phone: [phone] Quantitative urine opiates m easurementOrdered By: Goldy Law on 11-07-2024 Opiates Ql (U) Negative < 300 ng/mL [facility] Serum globulin measurementOr dered By: Goldy Law on 11-07-2024 Globulin (S) [Mass/Vol] 3.4 g/dL 2.2-4.2 [facility] Serum or plasma alanine champagne otransferase (ALT) measurementOrdered By: Goldy Law on 11-07-2024 ALT [Catalytic activity/Vol] 38 U/L 16-61 [facility] Serum or plasma albumin francoise urement (mass/volume)Ordered By: Goldy Law on 11-07-2024 Albumin [Mass/Vol] 2.9 g/dL Low 3.2-5.0 [facility] Serum or plasma alkaline mariola sphatase measurementOrdered By: Goldy Law on 11-07-2024 ALP [Catalytic activity/Vol] 94 U/L 45-117 [facility] TSH QnOrdered By: Goldy aldridge on 11-07-2024 Thyroid Stimulating Hormone (TSH) 1.490 uIU/mL 0.358-3.74 0 [facility] Thyroid Stim Hormone (TSH)on 11-07-2024 TSH 1.490 uIU/mL Normal 0.358-3.74 0 [facility] Comment on above: Performed By: #### L 501.9520, L3100.5400, L501.7300 ####[facility] [address] [place], [address] Total proteinOrdered By: Alirio Law on 11-07-2024 Protein [Mass/Vol] 6.3 g/dL Low 6.4-8.2 [facility] Troponin IOrdered By: Malcolm brambila on 11-07-2024 Troponin I High Sensitivity 16 pg/mL 3.0-78.0 [facility] Comment on above: Please Note: [place] t Units and Gender Specific Reference Ranges. For more information see Policy Stat Procedure [place] High Sensitivity Troponin (TNIH) and attachments. Urinalysis, Completeon 11-07 WBC 0-5 SEEN Normal 0-5 [facility] Comment on above: Order Comment: CLEAN CATCH Performed By: #### L 400.0001 ####[facility] [address] [place], [address] Urine Drug Screen (VISTA)on 11-07-2024 AMPHETAMINES Negative Normal <1000 ng/mL [facility] Comment on above: Performed By: #### L 505.5000 ####[facility] [address] [place], [address] BARBITIURATES Negative Normal < 200 ng/mL [facility] Comment on above: Performed By: #### L 505.5000 ####[facility] [address] [place], [address] BENZODIAZIPINE Negative Normal < 200 ng/mL [facility] Comment on above: Performed By: #### L 505.5000 ####[facility] [address] [place], [address] COCAINE Negative Normal < 300 ng/mL [facility] Comment on above: Performed By: #### L 505.5000 ####[facility] [address] [place], [address] ECSTACY Negative Normal < 500 ng/mL [facility] Comment on above: Performed By: #### L 505.5000 ####[facility] [address] [place], [address] METHADONE Negative Normal < 300 ng/mL [facility] Comment on above: Performed By: #### L 505.5000 ####[facility] [address] [facility] [address] OPIATES Negative Normal < 300 ng/mL [facility] Comment on above: Performed By: #### L 505.5000 ####[facility] [address] [place], [address] PCP Negative Normal < 25 ng/mL [facility] Comment on above: Performed By: #### L 505.5000 ####[facility] [address] [place], [address] THC Negative Normal < 50 ng/mL [facility] Comment on above: Performed By: #### L 505.5000 ####[facility] [address] [place], [address] VISTA UDS PH 6 Normal [facility] Comment on above: Performed By: #### L 505.5000 ####[facility] [address] [place] [id number] Urine amphetamine measuremen tOrdered By: Goldy Law on 11-07-2024 Amphetamines Ql (U) Negative <1000 ng/mL [facility] Urine barbiturates measureme ntOrdered By: Goldy Law on 11-07-2024 Urine Barbiturates Screen Negative < 200 ng/mL [facility] Urine benzodiazepine levelOr dered By: Goldy Law on 11-07-2024 Benzodiazepines Ql (U) Negative < 200 ng/mL [facility] Urine cocaine levelOrdered B y: Goldy Law on 11-07-2024 Cocaine Ql (U) Negative < 300 ng/mL [facility] Urine caofs-8-hfyhrfdsgfpwsm abinol (THC) measurementOrdered By: Goldy Law on 11-07-2024 Cannabinoids Screen Ql (U) Negative < 50 ng/m L [facility] Urine methylenedioxymethamph etamine (MDMA) measurementOrdered By: Goldy Law on 11-07-2024 MDMA (Ecstasy) Screen Negative < 500 ng/mL [facility] Urine phencyclidine (PCP) de tectionOrdered By: Goldy Law on 11-07-2024 Phencyclidine Ql (U) Negative < 25 ng/mL [facility] 12 Lead EKGon 11-06-2024 12 Lead EKG Normal [facility] Alcohol, Blood (Medical)-Ser umon 11-06-2024 SERUM ETOH 54.0 mg/dL Normal [facility] Comment on above: Result Comment: The serum:whole blood ethanol ratio is approximately 1.14and varies slightly with hematocrit.Medical Alcohol reference interval and critical value innon-tolerant individuals; 50 - 100 Impairment 100 Intoxication 100 - 250 Severe Poisoning 250 - 400 Deep/possible fatal coma Performed By: #### L 100.0100, L501.2450, L300.4310, L501.9100, L300.3900, L501.5425, L500.4050 ####[facility] [address] [place], [place], [id number] Bilirubin Test strip Ql (U)O rdered By: Malcolm Christy on 11-06-2024 Bilirubin Ql (U) Negative Negative [facility] Brain/Head without Contrasto n 11-06-2024 Brain/Head without Contrast Normal [facility] CBC W/Diff, Automatedon - Absolute Lymph 1.98 X10 3/uL Normal 0.83-4.51 [facility] Comment on above: Performed By: #### L 100.0100, L501.2450, L300.4310, L501.9100, L300.3900, L501.5425, L500.4050 ####[facility] [address] [place], [address] Absolute Neut 2.8 X10 3/uL Normal 2.0-7.7 [facility] Comment on above: Performed By: #### L 100.0100, L501.2450, L300.4310, L501.9100, L300.3900, L501.5425, L500.4050 ####[facility] [address] [place], [address] Basophils/100 WBC (Bld) 0.7 % Normal 0-1 [facility] Comment on above: Performed By: #### L 100.0100, L501.2450, L300.4310, L501.9100, L300.3900, L501.5425, L500.4050 ####[facility] [address] [place], [address] Eosinophils/100 WBC (Bld) 2.0 % Normal 0-5 [facility] Comment on above: Performed By: #### L 100.0100, L501.2450, L300.4310, L501.9100, L300.3900, L501.5425, L500.4050 ####[facility] [address] [place], [address] Erythrocyte distribution width (RBC) [Ratio] 12.8 % Normal 11.6-14.6 [facility] Comment on above: Performed By: #### L 100.0100, L501.2450, L300.4310, L501.9100, L300.3900, L501.5425, L500.4050 ####[facility] [address] [place], [address] Hematocrit (Bld) [Volume fraction] 36.0 % Low 40-54 [facility] Comment on above: Performed By: #### L 100.0100, L501.2450, L300.4310, L501.9100, L300.3900, L501.5425, L500.4050 ####[facility] [address] [place], [address] Hemoglobin (Bld) [Mass/Vol] 13.0 g/dL Normal 13.0-16. 5 [facility] Comment on above: Performed By: #### L 100.0100, L501.2450, L300.4310, L501.9100, L300.3900, L501.5425, L500.4050 ####[facility] [address] [place], [address] IG% 0.500 Normal 0.0-0.9 [facility] Comment on above: Result Comment: IG% - Immature Granulocytes (promyelocytes, myelocytes andmetamyelocytes) > 1% indicates that a LEFT SHIFT is Present. Performed By: #### L 100.0100, L501.2450, L300.4310, L501.9100, L300.3900, L501.5425, L500.4050 ####[facility] [address] [place], [address] Lymphocytes/100 WBC (Bld) 33.3 % Normal 19-41 [facility] Comment on above: Performed By: #### L 100.0100, L501.2450, L300.4310, L501.9100, L300.3900, L501.5425, L500.4050 ####[facility] [address] [place], [address] MCH (RBC) [Entitic mass] 31.5 pg Normal 27.0-32.0 [facility] Comment on above: Performed By: #### L 100.0100, L501.2450, L300.4310, L501.9100, L300.3900, L501.5425, L500.4050 ####[facility] [address] [place], [address] MCHC (RBC) [Mass/Vol] 36.1 g/dL High 32-36 [facility] Comment on above: Performed By: #### L 100.0100, L501.2450, L300.4310, L501.9100, L300.3900, L501.5425, L500.4050 ####[facility] [address] [place], [address] MCV (RBC) [Entitic vol] 87.2 fL Normal 80-94 [facility] Comment on above: Performed By: #### L 100.0100, L501.2450, L300.4310, L501.9100, L300.3900, L501.5425, L500.4050 ####[facility] [address] [place], [address] Monocytes/100 WBC (Bld) 17.1 % High 0-10 [facility] Comment on above: Performed By: #### L 100.0100, L501.2450, L300.4310, L501.9100, L300.3900, L501.5425, L500.4050 ####[facility] [address] [place], [address] Neutrophils/100 WBC (Bld) 46.4 % Low 47-70 [facility] Comment on above: Performed By: #### L 100.0100, L501.2450, L300.4310, L501.9100, L300.3900, L501.5425, L500.4050 ####[facility] [address] [place], [address] Nucleated RBC (Bld) [#/Vol] 0 10*3/uL Normal 0-5 [facility] Comment on above: Performed By: #### L 100.0100, L501.2450, L300.4310, L501.9100, L300.3900, L501.5425, L500.4050 ####[facility] [address] [place], [address] Platelet mean volume (Bld) [Entitic vol] 9.4 fL Normal 6.2-12.0 [facility] Comment on above: Performed By: #### L 100.0100, L501.2450, L300.4310, L501.9100, L300.3900, L501.5425, L500.4050 ####[facility] [address] [place], [address] Platelets (Bld) [#/Vol] 314 10*3/uL Normal 150-450 [facility] Comment on above: Performed By: #### L 100.0100, L501.2450, L300.4310, L501.9100, L300.3900, L501.5425, L500.4050 ####[facility] [address] [place], [address] RBC (Bld) [#/Vol] 4.13 10*6/uL Low 4.6-6.2 [facility] Comment on above: Performed By: #### L 100.0100, L501.2450, L300.4310, L501.9100, L300.3900, L501.5425, L500.4050 ####[facility] [address] [place], [address] RDW SD 40.6 fl Normal 35.1-43.9 [facility] Comment on above: Performed By: #### L 100.0100, L501.2450, L300.4310, L501.9100, L300.3900, L501.5425, L500.4050 ####[facility] [address] [place], [address] WBC (Bld) [#/Vol] 6.0 10*3/uL Normal 4.4-11.0 [facility] Comment on above: Performed By: #### L 100.0100, L501.2450, L300.4310, L501.9100, L300.3900, L501.5425, L500.4050 ####[facility] [address] [place], [address] Comprehensive Metabolic Prof ilon 11-06-2024 Albumin [Mass/Vol] 3.0 g/dL Low 3.2-5.0 [facility] Comment on above: Order Comment: 1Y Performed By: #### L 100.0100, L501.2450, L300.4310, L501.9100, L300.3900, L501.5425, L500.4050 ####[facility] [address] [place], [address] Albumin/Globulin [Mass ratio] 0.8 {ratio} Low 0.9-2.4 [facility] Comment on above: Order Comment: 1Y Performed By: #### L 100.0100, L501.2450, L300.4310, L501.9100, L300.3900, L501.5425, L500.4050 ####[facility] [address] [place], [address] ALK P 110 U/L Normal 45-117 [facility] Comment on above: Order Comment: 1Y Performed By: #### L 100.0100, L501.2450, L300.4310, L501.9100, L300.3900, L501.5425, L500.4050 ####[facility] [address] [place], [address] ALT [Catalytic activity/Vol] 38 U/L Normal 16-61 [facility] Comment on above: Order Comment: 1Y Performed By: #### L 100.0100, L501.2450, L300.4310, L501.9100, L300.3900, L501.5425, L500.4050 ####[facility] [address] [place], [address] AST [Catalytic activity/Vol] 48 U/L High 15-37 [facility] Comment on above: Order Comment: 1Y Performed By: #### L 100.0100, L501.2450, L300.4310, L501.9100, L300.3900, L501.5425, L500.4050 ####[facility] [address] [place], [address] Bilirubin [Mass/Vol] 0.70 mg/dL Normal 0.20-1.00 [facility] Comment on above: Order Comment: 1Y Result Comment: For patients on eltrombopag therapy, use of Dimension [place] TBIL is not recommended. Performed By: #### L 100.0100, L501.2450, L300.4310, L501.9100, L300.3900, L501.5425, L500.4050 ####[facility] [address] [place], [address] BUN/CRE 15.3 RATIO Normal 10-20 [facility] Comment on above: Order Comment: 1Y Performed By: #### L 100.0100, L501.2450, L300.4310, L501.9100, L300.3900, L501.5425, L500.4050 ####[facility] [address] [place], [address] CA,Total 8.5 mg/dL Normal 8.5-10.1 [facility] Comment on above: Order Comment: 1Y Performed By: #### L 100.0100, L501.2450, L300.4310, L501.9100, L300.3900, L501.5425, L500.4050 ####[facility] [address] [place], [address] Chloride [Moles/Vol] 89 mmol/L Low 98-107 [facility] Comment on above: Order Comment: 1Y Performed By: #### L 100.0100, L501.2450, L300.4310, L501.9100, L300.3900, L501.5425, L500.4050 ####[facility] [address] [place], [address] CO2 [Moles/Vol] 25.0 mmol/L Normal 21.0-32.0 [facility] Comment on above: Order Comment: 1Y Performed By: #### L 100.0100, L501.2450, L300.4310, L501.9100, L300.3900, L501.5425, L500.4050 ####[facility] [address] [place], [address] Creatinine [Mass/Vol] 0.66 mg/dL Low 0.70-1.30 [facility] Comment on above: Order Comment: 1Y Result Comment: The validity of the calculated GFR GFRAA in patients over70 years has not been determined. Clinical correlation isessential. Performed By: #### L 100.0100, L501.2450, L300.4310, L501.9100, L300.3900, L501.5425, L500.4050 ####[facility] [address] [place], [address] ECRCL 63.97 ml/min Normal [facility] Comment on above: Order Comment: 1Y Performed By: #### L 100.0100, L501.2450, L300.4310, L501.9100, L300.3900, L501.5425, L500.4050 ####[facility] [address] [place], [address] EST GFR - AA 155 mL/min Normal >60 [facility] Comment on above: Order Comment: 1Y Result Comment: Afri can Faro[place] GFR Calc Performed By: #### L 100.0100, L501.2450, L300.4310, L501.9100, L300.3900, L501.5425, L500.4050 ####[facility] [address] [place], [address] GAP 7 Normal 5-15 [facility] Comment on above: Order Comment: 1Y Performed By: #### L 100.0100, L501.2450, L300.4310, L501.9100, L300.3900, L501.5425, L500.4050 ####[facility] [address] [place], [address] GFR/1.73 sq M.predicted among non-blacks MDRD (S/P/Bld) [Vol rate/Area] 128 mL/min/{1.73_m2} Normal >60 [facility] Comment on above: Order Comment: 1Y Result Comment: Non- GFR Calc Performed By: #### L 100.0100, L501.2450, L300.4310, L501.9100, L300.3900, L501.5425, L500.4050 ####[facility] [address] [place], [address] Globulin (S) [Mass/Vol] 3.9 g/dL Normal 2.2-4.2 [facility] Comment on above: Order Comment: 1Y Performed By: #### L 100.0100, L501.2450, L300.4310, L501.9100, L300.3900, L501.5425, L500.4050 ####[facility] [address] [place], [address] Glucose [Mass/Vol] 83 mg/dL Normal 74-106 [facility] Comment on above: Order Comment: 1Y Performed By: #### L 100.0100, L501.2450, L300.4310, L501.9100, L300.3900, L501.5425, L500.4050 ####[facility] [address] [place], [address] Potassium [Moles/Vol] 3.4 mmol/L Low 3.5-5.1 [facility] Comment on above: Order Comment: 1Y Performed By: #### L 100.0100, L501.2450, L300.4310, L501.9100, L300.3900, L501.5425, L500.4050 ####[facility] [address] [place], [address] Sodium [Moles/Vol] 122 mmol/L Low 136-145 [facility] Comment on above: Order Comment: 1Y Performed By: #### L 100.0100, L501.2450, L300.4310, L501.9100, L300.3900, L501.5425, L500.4050 ####[facility] [address] [place], [address] T PROT 6.9 g/dL Normal 6.4-8.2 [facility] Comment on above: Order Comment: 1Y Performed By: #### L 100.0100, L501.2450, L300.4310, L501.9100, L300.3900, L501.5425, L500.4050 ####[facility] [address] [place], [address] Urea nitrogen [Mass/Vol] 10 mg/dL Normal 7-18 [facility] Comment on above: Order Comment: 1Y Performed By: #### L 100.0100, L501.2450, L300.4310, L501.9100, L300.3900, L501.5425, L500.4050 ####[facility] [address] [place], [address] Emergency Department Summary on 11-06-2024 Emergency Department Summary Normal [facility] Epithelial cells.squamous LM Ql (Urine sed)Ordered By: Malcolm Christy on 11-06-2024 Epithelial cells.squamous LM.HPF (Urine sed) [#/Area] 0 /[HPF] 0-5 [facility] Glucose Ql (U)Ordered By: Josef erik Abrahamanna on 11-06-2024 Urine Glucose (UA) Normal mg/dl Normal [facility] Influenza virus A and B and SARS-CoV-2 (COVID-19) and Respiratory syncytial virus RNAOrdered By: Malcolm Christy on 11-06-2024 SARS-CoV-2 (COVID-19) RNA ALVARO+probe Ql (Unsp spec) [facility] International normalized rat io (INR) calculationOrdered By: Malcolmerik Christy on 11-06-2024 INR Coag (Bld) [Relative time] 0.9 {INR} [facility] Ketones Test strip Ql (U)Ord ered By: Malcolmerik Christy on 11-06-2024 Ketones Ql (U) Negative Negative [facility] L501.5425on 11-06-2024 TROPONIN-I HS 14 pg/mL Normal 3.0-78.0 [facility] Comment on above: Order Comment: 1Y Result Comment: Plea se Note: New Test Units and Gender Specific Reference Ranges. For more information see Policy Stat Procedure [place] High Sensitivity Troponin (TNIH) and attachments. Performed By: #### L 100.0100, L501.2450, L300.4310, L501.9100, L300.3900, L501.5425, L500.4050 ####[facility] [address] [place], [place], [id number] Lipaseon 11-06-2024 Lipase [Catalytic activity/Vol] 35 U/L Normal 13-75 [facility] Comment on above: Order Comment: 1Y Result Comment: Plea se note:LIPASE revised reference range effective 23.New Lipase methodology. Expected to produce lower valuesthan the previous assay method.NEW Reference Range: 13 - 75 U/L Performed By: #### L 100.0100, L501.2450, L300.4310, L501.9100, L300.3900, L501.5425, L500.4050 ####[facility] [address] [place], [place], [id number] Lipase measurementOrdered By : Malcolm Christy on 11-06-2024 Lipase [Catalytic activity/Vol] 35 U/L 13-75 [facility] Comment on above: Please note:LIPASE r evised reference range effective 23. New Lipase methodology. Expected to produce lower values than the previous assay method. NEW Reference Range: 13 - 75 U/L M100.678on 11-06-2024 M100.678 Pending SARS-CoV-2 (COVID 19) Negative INFLUENZA A Negative INFLUENZA B Negative RSV PCR Negative Normal [facility] Comment on above: Performed By: #### M 100.678 ####[facility] [address] [place], [place], [id number] Microscopic analysis of urin e for red blood cells (RBC)Ordered By: Malcolm Christy on 11-06-2024 Urine RBC 0 SEEN /hpf 0-5 [facility] Mucus LM Ql (Urine sed)Order ed By: Malcolm Christy on 11-06-2024 Mucus Ql (Urine sed) 0 SEEN /hpf [facility] Nitrite Test strip Ql (U)Ord ered By: Malcolm Christy on 11-06-2024 Nitrite Ql (U) Negative Negative [facility] Partial Thromboplast Timeon 11-06-2024 aPTT Coag (Bld) [Time] 31.0 s Normal 24.1-36.2 [facility] Comment on above: Performed By: #### L 100.0100, L501.2450, L300.4310, L501.9100, L300.3900, L501.5425, L500.4050 ####[facility] [address] [place], [place], [id number] Protein Test strip Ql (U)Ord ered By: Malcolm Christy on 11-06-2024 Protein Ql (U) Negative Negative [facility] Prothrombin Time w/INRon INR Coag (PPP) [Relative time] 0.9 {INR} Normal [facility] Comment on above: Performed By: #### L 100.0100, L501.2450, L300.4310, L501.9100, L300.3900, L501.5425, L500.4050 ####[facility] [address] [place], [address] PT Coag (PPP) [Time] 12.6 s Normal 11.7-14.9 [facility] Comment on above: Performed By: #### L 100.0100, L501.2450, L300.4310, L501.9100, L300.3900, L501.5425, L500.4050 ####[facility] [address] [facility] [address] Prothrombin timeOrdered By: Malcolm Christy on 11-06-2024 PT Coag (PPP) [Time] 12.6 s 11.7-14.9 [facility] Serum ethanol measurementOrd ered By: Malcolm Christy on 11-06-2024 Ethyl Alcohol Level 54.0 mg/dL [facility] Comment on above: The serum:whole bloo d ethanol ratio is approximately 1.14and varies slightly with hematocrit. Medical Alcohol reference interval and critical value innon-tolerant individuals; 50 - 100 Impairment 100 Intoxication 100 - 250 Severe Poisoning 250 - 400 Deep/possible fatal coma Urinalysis, Completeon 11-06 BACTERIA 0 SEEN Normal None Seen [facility] Comment on above: Order Comment: CLEAN CATCH Performed By: #### L 400.0001 ####[facility] [address] [facility] [address] EPI,SQUAMOUS 0 SEEN Normal 0-5 [facility] Comment on above: Order Comment: CLEAN CATCH Performed By: #### L 400.0001 ####[facility] [address] [place], [address] Mucus Ql (Urine sed) 0 SEEN Normal [facility] Comment on above: Order Comment: CLEAN CATCH Performed By: #### L 400.0001 ####[facility] [address] [place], [address] RBC 0 SEEN Normal 0-5 [facility] Comment on above: Order Comment: CLEAN CATCH Performed By: #### L 400.0001 ####[facility] [address] [place], [address] Urine blood detectionOrdered By: Malcolm Christy on 11-06-2024 Urine Occult Blood Negative Negative [facility] Urine clarityOrdered By: Leticia Christy on 11-06-2024 Clarity (U) Sl. Cloudy Clear [facility] Urine color determinationOrd ered By: Malcolm Christy on 11-06-2024 Color (U) Yellow Yellow [facility] Urine leukocyte esterase det ection by dipstickOrdered By: Malcolm Christy on 11-06-2024 Leukocyte esterase Test strip Ql (U) 25 /ul High Negative [facility] Urine pHOrdered By: Malcolm schofield on 11-06-2024 pH (U) 6.5 [pH] 5.0 - 8.0 [facility] Urine sediment bacteria coun t by microscopy (number/high power field)Ordered By: Malcolm Christy on 11-06-2024 Bacteria LM.HPF (Urine sed) [#/Area] 0 /[HPF] None Seen [facility] Urine specific gravity measu rementOrdered By: Malcolm Christy on 11-06-2024 Specific gravity (U) [Rel density] 1.015 1.002-1.03 0 [facility] Urobilinogen Ql (U)Ordered B y: Malcolm Christy on 11-06-2024 Urine Urobilinogen Normal mg/dl Normal [facility] White blood cell countOrdere d By: Malcolm Christy on 11-06-2024 Urine WBC 0-5 SEEN /hpf 0-5 [facility] aPTT Coag (PPP) [Time]Ordere d By: Malcolm Christy on 11-06-2024 aPTT Coag (Bld) [Time] 31.0 s 24.1-36.2 [facility] Bedside Glucoseon 09-08-2024 FINGERSTICK GLU 97 mg/dL Normal 74-106 [facility] Comment on above: Result Comment: HIMA MAK OF PATIENT CARE PER NURSING PROTOCOL Performed By: #### L 501.080 ####[facility] [address] [place], [address] 12 Lead EKGon 09-07-2024 12 Lead EKG Normal [facility] Alcohol, Blood (Medical)-Ser umon 09-07-2024 SERUM ETOH 39.0 mg/dL Normal [facility] Comment on above: Result Comment: The serum:whole blood ethanol ratio is approximately 1.14and varies slightly with hematocrit.Medical Alcohol reference interval and critical value innon-tolerant individuals; 50 - 100 Impairment 100 Intoxication 100 - 250 Severe Poisoning 250 - 400 Deep/possible fatal coma Performed By: #### L 100.0100, L500.2500, L501.9100 ####[facility] [address] [place], [address] Basic Metabolic Profile (BMP )on 09-07-2024 BUN/CRE 11.8 RATIO Normal - [facility] Comment on above: Performed By: #### L 100.0100, L500.2500, L501.9100 ####[facility] [address] [place], [address] CA,Total 8.9 mg/dL Normal 8.5-10.1 [facility] Comment on above: Performed By: #### L 100.0100, L500.2500, L501.9100 ####[facility] [address] [place], [address] Chloride [Moles/Vol] 92 mmol/L Low 98-107 [facility] Comment on above: Performed By: #### L 100.0100, L500.2500, L501.9100 ####[facility] [address] [place], [address] CO2 [Moles/Vol] 23.0 mmol/L Normal 21.0-32.0 [facility] Comment on above: Performed By: #### L 100.0100, L500.2500, L501.9100 ####[facility] [address] [place], [address] Creatinine [Mass/Vol] 0.68 mg/dL Low 0.70-1.30 [facility] Comment on above: Result Comment: The validity of the calculated GFR GFRAA in patients over70 years has not been determined. Clinical correlation isessential. Performed By: #### L 100.0100, L500.2500, L501.9100 ####[facility] [address] [place], [address] ECRCL 67.09 ml/min Normal [facility] Comment on above: Performed By: #### L 100.0100, L500.2500, L501.9100 ####[facility] [address] [place], [address] EST GFR - AA 149 mL/min Normal >60 [facility] Comment on above: Result Comment: Afri can Faroese GFR Calc Performed By: #### L 100.0100, L500.2500, L501.9100 ####[facility] [address] [place], [address] GAP 10 Normal 5-15 [facility] Comment on above: Performed By: #### L 100.0100, L500.2500, L501.9100 ####[facility] [address] [place], [address] GFR/1.73 sq M.predicted among non-blacks MDRD (S/P/Bld) [Vol rate/Area] 123 mL/min/{1.73_m2} Normal >60 [facility] Comment on above: Result Comment: Non- GFR Calc Performed By: #### L 100.0100, L500.2500, L501.9100 ####[facility] [address] [place], [address] Glucose [Mass/Vol] 90 mg/dL Normal 74-106 [facility] Comment on above: Performed By: #### L 100.0100, L500.2500, L501.9100 ####[facility] [address] [place], [address] Potassium [Moles/Vol] 3.6 mmol/L Normal 3.5-5.1 [facility] Comment on above: Performed By: #### L 100.0100, L500.2500, L501.9100 ####[facility] [address] [place], [address] Sodium [Moles/Vol] 125 mmol/L Low 136-145 [facility] Comment on above: Performed By: #### L 100.0100, L500.2500, L501.9100 ####[facility] [address] [place], [address] Urea nitrogen [Mass/Vol] 8 mg/dL Normal 7-18 [facility] Comment on above: Performed By: #### L 100.0100, L500.2500, L501.9100 ####[facility] [address] [place], [address] Brain/Head without Contrasto n 10-30-2023 Brain/Head without Contrast Normal [facility] CBC W/Diff, Automatedon 10-3 0-4 Absolute Lymph 2.08 X10 3/uL Normal 0.83-4.51 [facility] Comment on above: Performed By: #### L 100.0100, L500.2500, L501.9100 ####[facility] [address] [place], [address] Absolute Neut 5.5 X10 3/uL Normal 2.0-7.7 [facility] Comment on above: Performed By: #### L 100.0100, L500.2500, L501.9100 ####[facility] [address] [place], [address] Basophils/100 WBC (Bld) 0.8 % Normal 0-1 [facility] Comment on above: Performed By: #### L 100.0100, L500.2500, L501.9100 ####[facility] [address] [place], [address] Eosinophils/100 WBC (Bld) 1.9 % Normal 0-5 [facility] Comment on above: Performed By: #### L 100.0100, L500.2500, L501.9100 ####[facility] [address] [place], [address] Erythrocyte distribution width (RBC) [Ratio] 12.3 % Normal 11.6-14.6 [facility] Comment on above: Performed By: #### L 100.0100, L500.2500, L501.9100 ####[facility] [address] [place], [address] Hematocrit (Bld) [Volume fraction] 41.0 % Normal 40-54 [facility] Comment on above: Performed By: #### L 100.0100, L500.2500, L501.9100 ####[facility] [address] [place], [address] Hemoglobin (Bld) [Mass/Vol] 14.6 g/dL Normal 13.0-16. 5 [facility] Comment on above: Performed By: #### L 100.0100, L500.2500, L501.9100 ####[facility] [address] [place], [address] IG% 1.000 High 0.0-0.9 [facility] Comment on above: Result Comment: IG% - Immature Granulocytes (promyelocytes, myelocytes andmetamyelocytes) > 1% indicates that a LEFT SHIFT is Present. Performed By: #### L 100.0100, L500.2500, L501.9100 ####[facility] [address] [place], [address] Lymphocytes/100 WBC (Bld) 22.9 % Normal 19-41 [facility] Comment on above: Performed By: #### L 100.0100, L500.2500, L501.9100 ####[facility] [address] [place], [address] MCH (RBC) [Entitic mass] 31.6 pg Normal 27.0-32.0 [facility] Comment on above: Performed By: #### L 100.0100, L500.2500, L501.9100 ####[facility] [address] [place], [address] MCHC (RBC) [Mass/Vol] 35.6 g/dL Normal 32-36 [facility] Comment on above: Performed By: #### L 100.0100, L500.2500, L501.9100 ####[facility] [address] [place], [address] MCV (RBC) [Entitic vol] 88.7 fL Normal 80-94 [facility] Comment on above: Performed By: #### L 100.0100, L500.2500, L501.9100 ####[facility] [address] [place], [address] Monocytes/100 WBC (Bld) 13.2 % High 0-10 [facility] Comment on above: Performed By: #### L 100.0100, L500.2500, L501.9100 ####[facility] [address] [place], [address] Neutrophils/100 WBC (Bld) 60.2 % Normal 47-70 [facility] Comment on above: Performed By: #### L 100.0100, L500.2500, L501.9100 ####[facility] [address] [place], [address] Nucleated RBC (Bld) [#/Vol] 0 10*3/uL Normal 0-5 [facility] Comment on above: Performed By: #### L 100.0100, L500.2500, L501.9100 ####[facility] [address] [place], [address] Platelet mean volume (Bld) [Entitic vol] 9.1 fL Normal 6.2-12.0 [facility] Comment on above: Performed By: #### L 100.0100, L500.2500, L501.9100 ####[facility] [address] [place], [address] Platelets (Bld) [#/Vol] 457 10*3/uL High 150-450 [facility] Comment on above: Performed By: #### L 100.0100, L500.2500, L501.9100 ####[facility] [address] [place], [address] RBC (Bld) [#/Vol] 4.62 10*6/uL Normal 4.6-6.2 [facility] Comment on above: Performed By: #### L 100.0100, L500.2500, L501.9100 ####[facility] [address] [place], [address] RDW SD 40.1 fl Normal 35.1-43.9 [facility] Comment on above: Performed By: #### L 100.0100, L500.2500, L501.9100 ####[facility] [address] [place], [address] WBC (Bld) [#/Vol] 9.1 10*3/uL Normal 4.4-11.0 [facility] Comment on above: Performed By: #### L 100.0100, L500.2500, L501.9100 ####[facility] [address] [place], [address] Emergency Department Summary on 09-07-2024 Emergency Department Summary Normal [facility] M100.678on 09-07-2024 M100.678 Pending SARS-CoV-2 (COVID 19) Negative INFLUENZA A Negative INFLUENZA B Negative RSV PCR Negative Normal [facility] Comment on above: Performed By: #### M 100.678 ####[facility] [address] [place], [place], [address] .GFRon 06-16-2024 GFR 115 ml/min/1.73sqm Normal [facility] ([place]) Comment on above: Result Comment: GFR Population mean for , Non- Americans Ages 20-29 = 116 mL/min/1.73 sq.m. Ages 30-39 = 107 mL/min/1.73 sq.m. Ages 40-49 = 99 mL/min/1.73 sq.m. Ages 50-59 = 93 mL/min/1.73 sq.m. Ages 60-69 = 85 mL/min/1.73 sq.m. Ages 70+ = 75 mL/min/1.73 sq.m. Chronic Kidney Disease: Less than 60 mL/min/1.73 square meters End Stage Renal Disease: Less than 15 mL/min/1.73 square meters Performed By: #### G , [facility] #### [address] [address] GFR Non- 94 ml/min/1.73sqm Normal [facility] ([place]) Comment on above: Result Comment: GFR Population mean for , Non- Americans Ages 20-29 = 116 mL/min/1.73 sq.m. Ages 30-39 = 107 mL/min/1.73 sq.m. Ages 40-49 = 99 mL/min/1.73 sq.m. Ages 50-59 = 93 mL/min/1.73 sq.m. Ages 60-69 = 85 mL/min/1.73 sq.m. Ages 70+ = 75 mL/min/1.73 sq.m. Chronic Kidney Disease: Less than 60 mL/min/1.73 square meters End Stage Renal Disease: Less than 15 mL/min/1.73 square meters Performed By: #### G , CMP #### [address] [address] CMPon 06-16-2024 Albumin Level 3.4 G/dL Normal 3.4-4.8 [facility] ([place]) Comment on above: Performed By: #### Mary LOPEZ, CMP #### [address] [address] Albumin/Globulin [Mass ratio] 0.8 {ratio} Low 1.1-2.5 [facility] ([place]) Comment on above: Performed By: #### Mary LOPEZ, CMP #### [address] [address] ALP [Catalytic activity/Vol] 105 U/L Normal 40-135 [facility] ([place]) Comment on above: Performed By: #### Mary LOPEZ, CMP #### [address] [address] ALT [Catalytic activity/Vol] 30 U/L Normal 16-63 [facility] ([place]) Comment on above: Performed By: #### Mary LOPEZ, CMP #### [address] [address] AST [Catalytic activity/Vol] 35 U/L Normal 10-40 [facility] ([place]) Comment on above: Performed By: #### Mary LOPEZ, CMP #### [address] [address] Bili Total 1.0 mg/dL Normal 0.2-1.0 [facility] ([place]) Comment on above: Result Comment: Use of this assay is not recommended for patients undergoing treatment with eltrombopag due to the potential for falsely elevated results. Performed By: #### G , CMP #### [address] [address] BUN/Creatinine Ratio 12 ratio Normal 7-27 [facility] ([place]) Comment on above: Performed By: #### Mary LOPEZ, CMP #### [address] [address] Calcium [Mass/Vol] 9.2 mg/dL Normal 8.4-10.2 [facility] ([place]) Comment on above: Performed By: #### G , CMP #### [address] [address] Chloride [Moles/Vol] 99 mmol/L Normal 98-107 [facility] ([place]) Comment on above: Performed By: #### G FR, CMP #### [address] [address] CO2 [Moles/Vol] 30 mmol/L Normal 23-31 [facility] ([place]) Comment on above: Performed By: #### G , CMP #### [address] [address] Creatinine [Mass/Vol] 0.81 mg/dL Normal 0.70-1.30 [facility] ([place]) Comment on above: Performed By: #### G , CMP #### [address] [address] Electrolyte Balance 5.0 mEq/L Normal 4.0-15.0 [facility] ([place]) Comment on above: Performed By: #### G , CMP #### [address] [address] Globulin 4.1 G/dL Normal [facility] ([place]) Comment on above: Performed By: #### G FR, CMP #### [address] [address] Glucose [Mass/Vol] 95 mg/dL Normal 80-115 [facility] ([place]) Comment on above: Performed By: #### G FR, CMP #### [address] [address] Potassium [Moles/Vol] 5.1 mmol/L Normal 3.5-5.1 [facility] ([place]) Comment on above: Performed By: #### G FR, CMP #### [address] [address] Sodium [Moles/Vol] 134 mmol/L Low 136-145 [facility] ([place]) Comment on above: Performed By: #### G FR, CMP #### [address] [place], [place] [address] Total Protein 7.5 G/dL Normal 6.4-8.2 [facility] ([place]) Comment on above: Performed By: #### G FR, CMP #### [facility] [address] [place], [place] [address] Urea nitrogen [Mass/Vol] 10 mg/dL Normal 7-18 [facility] ([place]) Comment on above: Performed By: #### G FR, CMP #### [id number] [place], [place] [address] LABORATORYOrdered By: SYSTEM SYSTEM on 06-16-2024 Albumin BCP dye [Mass/Vol] 3.4 G/dL Normal 3 .4 - 4.8 G/dL AO ADM SS Albumin/Globulin [Mass ratio] 0.8 {ratio} Low 1.1 - 2.5 ratio AO ADM SS ALP [Catalytic activity/Vol] 105 U/L Normal 40 - 135 U/L AO ADM SS ALT With P-5'-P [Catalytic activity/Vol] 30 U/L Normal 16 - 63 U/L AO ADM SS AST With P-5'-P [Catalytic activity/Vol] 35 U/L Normal 10 - 40 U/L AO ADM SS Bilirubin [Mass/Vol] 1.0 mg/dL Normal 0.2 - 1 .0 mg/dL AO ADM SS Comment on above: Interpretive Data: U se of this assay is not recommended for patients undergoing treatment with eltrombopag due to the potential for falsely elevated results. Calcium [Mass/Vol] 9.2 mg/dL Normal 8.4 - 10. 2 mg/dL AO ADM SS Chloride [Moles/Vol] 99 mmol/L Normal 98 - 10 7 mmol/L AO ADM SS CO2 [Moles/Vol] 30 mmol/L Normal 23 - 31 mmol/L AO ADM SS Creatinine [Mass/Vol] 0.81 mg/dL Normal 0.70 - 1.30 mg/dL AO ADM SS Electrolyte Balance 5.0 mEq/L Normal 4.0 - 15 .0 mEq/L AO ADM SS GFR/1.73 sq M.predicted among blacks MDRD (S/P/Bld) [Vol rate/Area] 115 ml/min/1.73sqm Invalid Interpretation Code AO Chemistry S Comment on above: Interpretive Data: GFR Population mean for , Non- Americans Ages 20-29 = 116 mL/min/1.73 sq.m. Ages 30-39 = 107 mL/min/1.73 sq.m. Ages 40-49 = 99 mL/min/1.73 sq.m. Ages 50-59 = 93 mL/min/1.73 sq.m. Ages 60-69 = 85 mL/min/1.73 sq.m. Ages 70+ = 75 mL/min/1.73 sq.m. Chronic Kidney Disease: Less than 60 mL/min/1.73 square meters End Stage Renal Disease: Less than 15 mL/min/1.73 square meters GFR/1.73 sq M.predicted among non-blacks MDRD (S/P/Bld) [Vol rate/Area] 94 ml/min/1.73sqm Invalid Interpretation Code AO Chemistry S Comment on above: Interpretive Data: GFR Population mean for , Non- Americans Ages 20-29 = 116 mL/min/1.73 sq.m. Ages 30-39 = 107 mL/min/1.73 sq.m. Ages 40-49 = 99 mL/min/1.73 sq.m. Ages 50-59 = 93 mL/min/1.73 sq.m. Ages 60-69 = 85 mL/min/1.73 sq.m. Ages 70+ = 75 mL/min/1.73 sq.m. Chronic Kidney Disease: Less than 60 mL/min/1.73 square meters End Stage Renal Disease: Less than 15 mL/min/1.73 square meters Globulin 4.1 G/dL Invalid Interpretation Code AO ADM SS Glucose [Mass/Vol] 95 mg/dL Normal 80 - 115 mg/dL AO ADM SS Potassium [Moles/Vol] 5.1 mmol/L Normal 3.5 - 5.1 mmol/L AO ADM SS Protein [Mass/Vol] 7.5 G/dL Normal 6.4 - 8.2 G/dL AO ADM SS Sodium [Moles/Vol] 134 mmol/L Low 136 - 145 mmol/L AO ADM SS Urea nitrogen [Mass/Vol] 10 mg/dL Normal 7 - 18 mg/dL AO ADM SS Urea nitrogen/Creatinine [Mass ratio] 12 ratio Normal 7 - 27 ratio AO ADM SS Absolute lymphocyte countOrd ered By: Emma Wilson on 01-08-2024 Lymphocytes Auto (Unsp spec) [#/Vol] 2.20 10*3/uL 0.83-4.51 [facility] Activated partial thrombopla stin time (aPTT) in platelet poor plasma by coagulation aOrdered By: Pierre Catalan on 01-08-2024 aPTT Coag (PPP) [Time] 32.2 s 24.1-36.2 [facility] Automated lymphocyte count a s percentage of total leukocytesOrdered By: Emma Wilson on 01-08-2024 Lymphocytes/100 WBC Auto (Unsp spec) 25.8 % 19-41 [facility] Basophil percentageOrdered B y: Emma Wilson on 01-08-2024 Basophils/100 WBC (Bld) 0.5 % 0-1 [facility] Bilirubin [Mass/Vol] 0.60 mg/dL 0.20-1.00 [facility] Comment on above: For patients on eltr ombopag therapy, use of Dimension [place] TBIL is not recommended. Chloride [Moles/Vol] 107 mmol/L 98-107 [facility] Cholesterol [Mass/Vol] 159 mg/dL <200 [facility] Comment on above: <200 mg/dL Desirable 200-240 mg/dL Borderline >240 mg/dL High Risk Eosinophils/100 WBC (Bld) 0.9 % 0-5 [facility] Glucose [Mass/Vol] 84 mg/dL 74-106 [facility] Hemoglobin (Bld) [Mass/Vol] 13.4 g/dL 13.0-16. 5 [facility] Monocytes/100 WBC (Bld) 9.7 % 0-10 [facility] Neutrophils (Bld) [#/Vol] 5.4 10*3/uL 2.0-7.7 [facility] Neutrophils/100 WBC (Bld) 63.0 % 47-70 [facility] Potassium [Moles/Vol] 4.4 mmol/L 3.5-5.1 [facility] Protein [Mass/Vol] 6.4 g/dL 6.4-8.2 [facility] Sodium [Moles/Vol] 134 mmol/L 136-145 [facility] Triglyceride [Mass/Vol] 61 mg/dL <199 [facility] Comment on above: The drugs N-Acetylcy steine and Metamizole may falsely depress this assay.Serum Triglycerides Reference Interval Normal <150 mg/dL Borderline high 150 - 199 mg/dL High 200 - 499 mg/dL Very High > or = 500 mg/dL WBC (Bld) [#/Vol] 8.5 10*3/uL 4.4-11.0 [facility] Determination of erythrocyte mean corpuscular volume (MCV)Ordered By: Emma Wilson on 01-08-2024 MCV (RBC) [Entitic vol] 89.2 fL 80-94 [facility] Erythrocyte distribution wid th ratioOrdered By: Emma Wilson on 01-08-2024 Erythrocyte distribution width (RBC) [Ratio] 13.1 % 11.6-14.6 [facility] Erythrocyte distribution wid th standard deviationOrdered By: Emma Wilson on 01-08-2024 Erythrocyte distribution width (RBC) [Entitic vol] 42.7 fL 35.1-43.9 [facility] Hematocrit Auto (Bld) [Volum e fraction]Ordered By: Emma Wilson on 01-08-2024 Hematocrit (Bld) [Volume fraction] 38.9 % 40-54 [facility] Immature granulocytes/100 WB C Auto (Bld)Ordered By: Emma Wilson on 01-08-2024 Immature granulocytes/100 WBC (Bld) 0.100 % 0.0-0.9 [facility] Comment on above: IG% - Immature Granu locytes (promyelocytes, myelocytes and metamyelocytes) > 1% indicates that a LEFT SHIFT is Present. Laboratory - Chemistry and C hemistry - challengeOrdered By: Emma Wilson on 01-08-2024 Albumin/Globulin [Mass ratio] 0.8 {ratio} 0.9-2.4 [facility] ALP [Catalytic activity/Vol] 93 U/L 45-117 [facility] ALT [Catalytic activity/Vol] 35 U/L 16-61 [facility] Cholesterol in HDL [Mass/Vol] 71 mg/dL >40 [facility] Comment on above: The drugs N-Acetylcy steine and Metamizole may falsely depress this assay. Reference Range HDL <40 mg/dL Low HDL Cholesterol HDL >or= 60 mg/dL High HDL Cholesterol Cholesterol in LDL [Mass/Vol] 76 mg/dL 0-130 [facility] CO2 [Moles/Vol] 24.0 mmol/L 21.0-32.0 [facility] Globulin (S) [Mass/Vol] 3.6 g/dL 2.2-4.2 [facility] Urea nitrogen/Creatinine [Mass ratio] 17.5 mg/mg 10-20 [facility] Laboratory - CoagulationOrde red By: Pierre Catalan on 01-08-2024 INR Coag (Bld) [Relative time] 1.0 {INR} [facility] PT Coag (PPP) [Time] 12.7 s 11.7-14.9 [facility] Laboratory - Hematology and Cell countsOrdered By: Emma Wilson on 01-08-2024 MCH (RBC) [Entitic mass] 30.7 pg 27.0-32.0 [facility] MCHC (RBC) [Mass/Vol] 34.4 g/dL 32-36 [facility] Nucleated RBC/100 WBC (Bld) [Ratio] 0 % 0-5 [facility] Platelet mean volume (Bld) [Entitic vol] 9.6 fL 6.2-12.0 [facility] Platelets (Bld) [#/Vol] 289 10*3/uL 150-450 [facility] Laboratory - Hematology and Cell countsOrdered By: Pierre Catalan on 01-08-2024 Platelets (Bld) [#/Vol] 327 10*3/uL 150-450 [facility] No Panel InformationOrdered By: Emma Wilson on 01-08-2024 Troponin I High Sensitivity 16 pg/mL 3.0-78.0 [facility] Comment on above: Please Note: [place] t Units and Gender Specific Reference Ranges. For more information see Policy Stat Procedure [place] High Sensitivity Troponin (TNIH) and attachments. Estimated Creatinine Clearance Calc 67.50 ml/min [facility] Estimated GFR (MDRD) Amer 163 mL/min >60 [facility] Comment on above: GFR Calc Estimated GFR (MDRD) Non-Af Amer 135 mL/min >60 [facility] Comment on above: Non- GFR Calc VLDL Cholesterol 12 mg/dL 5-40 [facility] RBC Auto (Bld) [#/Vol]Ordere d By: Emma Wilson on 01-08-2024 RBC (Bld) [#/Vol] 4.36 10*6/uL 4.6-6.2 [facility] Serum or plasma calcium francoise urement (mass/volume)Ordered By: Emma Wilson on 01-08-2024 Calcium [Mass/Vol] 8.5 mg/dL 8.5-10.1 [facility] Serum or plasma creatinine m easurement (mass/volume)Ordered By: Emma Wilson on 01-08-2024 Creatinine [Mass/Vol] 0.63 mg/dL 0.70-1.30 [facility] Comment on above: The validity of the calculated GFR & GFRAA in patients over 70 years has not been determined. Clinical correlation is essential. Serum or plasma urea nitroge n measurement (mass/volume)Ordered By: Emma Wilson on 01-08-2024 Urea nitrogen [Mass/Vol] 11 mg/dL 7-18 [facility] Thin prep Papanicolaou smear with manual screeningOrdered By: Emma Wilson on 01-08-2024 Thin prep Papanicolaou smear with manual screening 2.8 g/dL 3.2-5.0 [facility] Thin prep Papanicolaou smear with manual screening 33 U/L 15-37 [facility] Thin prep Papanicolaou smear with manual screening 3 5-15 [facility] PET/CT INITIAL STAGING TUMOR SKULL [id number] 12-31-2023 PET/CT INITIAL STAGING TUMOR SKULL [id number] ORIGINAL EXAMINATION: PET TUMOR IMAGING SKULL-THIGH12/31/2023 1:54 pm TECHNIQUE: Intravenous injection of 12 mCi Fluorine-18 fluorodeoxyglucose (FDG) was administered, followed by acquisition of positron emission tomographic images from the skull base to mid thigh, with concurrent low-dose CT for attenuation correction and anatomic localization utilizing a combined PET/CT scanner. PET images were fused with low-dose CT at the workstation. Dose [id number] time:61 min Serum glucose level: 109 mg/dl COMPARISON: 12/16/2023 CT chest HISTORY: ORDERING SYSTEM PROVIDED HISTORY: Reason for Exam: lung nodules on CT FINDINGS: NECK: No hypermetabolic soft tissue lesion within the neck. There are a few small mildly avid right supraclavicular lymph nodes with max SUV of 4.5. CHEST: Dominant left upper lobe and left lower lobe solid pulmonary nodules measuring 1.0 cm and 12 cm are focally FDG avid, max SUVs of 7.4 and 18.1 respectively. There are multiple additional subcentimeter pulmonary nodules along the central perihilar regions, demonstrating low-grade avidity, likely secondary to small size. There are enlarged mildly FDG avid lymph nodes involving the bilateral hilar, subcarinal, paratracheal, AP window, prevascular, and right internal mammary stations. A senior patient account representative AP window lymph node measures 13 mm and has max SUV of 5.3. The subcarinal node has max SUV of 6.1. ABDOMEN/PELVIS: No hypermetabolic soft tissue lesion. No hypermetabolic abdominal or pelvic lymphadenopathy. Physiologic excretion of radiotracer is present within the kidneys, ureters, urinary bladder, as well as the bowel. MUSCULOSKELETAL: No hypermetabolic or suspicious osseous lesion to suggest osseous metastatic disease. IMPRESSION: 1. Hypermetabolic left upper and left lower lobe pulmonary nodules, most concerning for malignancy. Tissue sampling advised. 2. Additional bilateral pattern of small perihilar nodules, bilateral hilar, mediastinal, and right supraclavicular FDG avid lymph nodes could be metastatic, though inflammatory conditions such as sarcoidosis should also be considered. Interpreted by: Goldy Zamora DO Preliminary Report By: Goldy Zamora DO Electronically signed By Goldy Zamora DO Dictated Date: 12/31/2023 3:01:57 PM Prelim Date: 12/31/2023 3:19:15 PM Sign Date: 12/31/2023 3:19:15 PM Ordering Provider: JESUS Hebert [facility] ([place]) CT THORAX SCREENING W/O CONT Kam 12-22-2023 CT THORAX SCREENING W/O CONTRAST ORIGINAL EXAMINATION: LOW DOSE SCREENING CT OF THE CHEST WITHOUT CONTRAST12/16/2023 4:23 pm TECHNIQUE: Low dose lung cancer screening CT of the chest was performed without the administration of intravenous contrast. Multiplanar reformatted images are provided for review. Automated exposure control, iterative reconstruction, and/or weight based adjustment of the mA/kV was utilized to reduce the radiation dose to as low as reasonably achievable. COMPARISON: None. HISTORY: 78 pack-year smoking history FINDINGS: The heart is normal in size. Atherosclerosis seen of the coronary arteries and aorta. The central pulmonary arteries are large in caliber. A lymph node in the precarinal space measures 9 mm in short axis. Additional borderline mediastinal lymph nodes are identified. A conspicuous left infrahilar lymph node on image 76 measures 5 mm. A right hilar lymph node on image 71 measures 1 cm. No suspicious findings seen in the visualized portion of the abdomen. The abdomen is not evaluated in detail. Emphysema noted. There is bronchiectasis. A spiculated left lower lobe nodule measures 1.2 cm on image 68. An asymmetric focus of scarring or posterior left upper lobe nodule on image 16 measures 1.3 cm micronodular changes seen in the upper lungs bilaterally. There is an irregularly-shaped left upper lobe nodule on image 39 measuring 8 mm. An additional senior patient account representative left upper lobe nodule on image 57 measures 5 mm. A senior patient account representative right lower lobe nodule on image 70 measures 4 mm. A senior patient account representative irregular right upper lobe nodule on image 37 measures 5 mm. Other scattered irregular lung nodules visualized. No pneumothorax or pleural effusion. No aggressive osseous lesions visible. Degenerative changes seen in the spine. IMPRESSION: Numerous irregular lung nodules measuring up to 1.2 cm in the left lower lobe and 1.3 cm in the left upper lobe. Other scattered bilateral irregular lung nodules visualized. PET-CT advised Emphysema. Bronchiectasis. Enlarged pulmonary arteries could be indicative of pulmonary arterial hypertension Atherosclerosis with coronary artery calcifications Borderline lymphadenopathy could be reactive or neoplastic. Close surveillance advised Information below is for Lung nodule tracking purposes: Nodule: S10 Other Findings: P-CAC Change: Na Recall : Immediately Recall Type: LDCT LungRads: 4As Interpreted by: Brian Britton MD Preliminary Report By: Brian Britton MD Electronically signed By Brian Britton MD Dictated Date: 12/22/2023 11:48:21 AM Prelim Date: 12/22/2023 11:56:17 AM Sign Date: 12/22/2023 11:56:17 AM Ordering Provider: JESUS CALLAHAN [facility] ([place]) .GFRon 11-27-2023 GFR 107 ml/min/1.73sqm Normal [facility] ([place]) Comment on above: Result Comment: GFR Population mean for , Non- Americans Ages 20-29 = 116 mL/min/1.73 sq.m. Ages 30-39 = 107 mL/min/1.73 sq.m. Ages 40-49 = 99 mL/min/1.73 sq.m. Ages 50-59 = 93 mL/min/1.73 sq.m. Ages 60-69 = 85 mL/min/1.73 sq.m. Ages 70+ = 75 mL/min/1.73 sq.m. Chronic Kidney Disease: Less than 60 mL/min/1.73 square meters End Stage Renal Disease: Less than 15 mL/min/1.73 square meters Performed By: #### L IPID, PSA, CMP, GFR #### [address] [address] GFR Non- 88 ml/min/1.73sqm Normal [facility] ([place]) Comment on above: Result Comment: GFR Population mean for , Non- Americans Ages 20-29 = 116 mL/min/1.73 sq.m. Ages 30-39 = 107 mL/min/1.73 sq.m. Ages 40-49 = 99 mL/min/1.73 sq.m. Ages 50-59 = 93 mL/min/1.73 sq.m. Ages 60-69 = 85 mL/min/1.73 sq.m. Ages 70+ = 75 mL/min/1.73 sq.m. Chronic Kidney Disease: Less than 60 mL/min/1.73 square meters End Stage Renal Disease: Less than 15 mL/min/1.73 square meters Performed By: #### L IPID, PSA, CMP, GFR #### [address] [address] CMPon 11-27-2023 Albumin Level 3.5 G/dL Normal 3.4-4.8 [facility] ([place]) Comment on above: Performed By: #### L IPID, PSA, CMP, GFR #### [address] [address] Albumin/Globulin [Mass ratio] 0.9 {ratio} Low 1.1-2.5 [facility] ([place]) Comment on above: Performed By: #### L IPID, PSA, CMP, GFR #### [address] [address] ALP [Catalytic activity/Vol] 122 U/L Normal 40-135 [facility] ([place]) Comment on above: Performed By: #### L IPID, PSA, CMP, GFR #### [address] [address] ALT [Catalytic activity/Vol] 39 U/L Normal 16-63 [facility] ([place]) Comment on above: Performed By: #### L IPID, PSA, CMP, GFR #### [address] [address] AST [Catalytic activity/Vol] 39 U/L Normal 10-40 [facility] ([place]) Comment on above: Performed By: #### L IPID, PSA, CMP, GFR #### [address] [address] Bili Total 0.9 mg/dL Normal 0.2-1.0 [facility] ([place]) Comment on above: Result Comment: Use of this assay is not recommended for patients undergoing treatment with eltrombopag due to the potential for falsely elevated results. Performed By: #### L IPID, PSA, CMP, GFR #### [address] [address] BUN/Creatinine Ratio 14 ratio Normal 7-27 [facility] ([place]) Comment on above: Performed By: #### L IPID, PSA, CMP, GFR #### [address] [address] Calcium [Mass/Vol] 9.5 mg/dL Normal 8.4-10.2 [facility] ([place]) Comment on above: Performed By: #### L IPID, PSA, CMP, GFR #### [address] [address] Chloride [Moles/Vol] 100 mmol/L Normal 98-107 [facility] ([place]) Comment on above: Performed By: #### L IPID, PSA, CMP, GFR #### [address] [address] CO2 [Moles/Vol] 27 mmol/L Normal 23-31 [facility] ([place]) Comment on above: Performed By: #### L IPID, PSA, CMP, GFR #### [address] [address] Creatinine [Mass/Vol] 0.86 mg/dL Normal 0.70-1.30 [facility] ([place]) Comment on above: Performed By: #### L IPID, PSA, CMP, GFR #### [address] [address] Electrolyte Balance 10.0 mEq/L Normal 4.0-15.0 [facility] ([place]) Comment on above: Performed By: #### L IPID, PSA, CMP, GFR #### [address] [address] Globulin 4.1 G/dL Normal [facility] ([place]) Comment on above: Performed By: #### L IPID, PSA, CMP, GFR #### [address] [address] Glucose [Mass/Vol] 98 mg/dL Normal 80-115 [facility] ([place]) Comment on above: Performed By: #### L IPID, PSA, CMP, GFR #### [address] [address] Potassium [Moles/Vol] 4.9 mmol/L Normal 3.5-5.1 [facility] ([place]) Comment on above: Performed By: #### L IPID, PSA, CMP, GFR #### [address] [address] Sodium [Moles/Vol] 137 mmol/L Normal 136-145 [facility] ([place]) Comment on above: Performed By: #### L IPID, PSA, CMP, GFR #### [facility] [address] [place], [place] [address] Total Protein 7.6 G/dL Normal 6.4-8.2 [facility] ([place]) Comment on above: Performed By: #### L IPID, PSA, CMP, GFR #### [address] [place], [place] [address] Urea nitrogen [Mass/Vol] 12 mg/dL Normal 7-18 [facility] ([place]) Comment on above: Performed By: #### L IPID, PSA, CMP, GFR #### [address] [place], [place] [address] LABORATORYOrdered By: SYSTEM SYSTEM on 11-27-2023 Albumin BCP dye [Mass/Vol] 3.5 G/dL Normal 3 .4 - 4.8 G/dL AO ADM SS Albumin/Globulin [Mass ratio] 0.9 {ratio} Low 1.1 - 2.5 ratio AO ADM SS ALP [Catalytic activity/Vol] 122 U/L Normal 40 - 135 U/L AO ADM SS ALT With P-5'-P [Catalytic activity/Vol] 39 U/L Normal 16 - 63 U/L AO ADM SS AST With P-5'-P [Catalytic activity/Vol] 39 U/L Normal 10 - 40 U/L AO ADM SS Bilirubin [Mass/Vol] 0.9 mg/dL Normal 0.2 - 1 .0 mg/dL AO ADM SS Comment on above: Interpretive Data: U se of this assay is not recommended for patients undergoing treatment with eltrombopag due to the potential for falsely elevated results. Calcium [Mass/Vol] 9.5 mg/dL Normal 8.4 - 10. 2 mg/dL AO ADM SS Chloride [Moles/Vol] 100 mmol/L Normal 98 - 10 7 mmol/L AO ADM SS CO2 [Moles/Vol] 27 mmol/L Normal 23 - 31 mmol/L AO ADM SS Creatinine [Mass/Vol] 0.86 mg/dL Normal 0.70 - 1.30 mg/dL AO ADM SS Electrolyte Balance 10.0 mEq/L Normal 4.0 - 15 .0 mEq/L AO ADM SS GFR/1.73 sq M.predicted among blacks MDRD (S/P/Bld) [Vol rate/Area] 107 ml/min/1.73sqm Invalid Interpretation Code AO Chemistry S Comment on above: Interpretive Data: GFR Population mean for , Non- Americans Ages 20-29 = 116 mL/min/1.73 sq.m. Ages 30-39 = 107 mL/min/1.73 sq.m. Ages 40-49 = 99 mL/min/1.73 sq.m. Ages 50-59 = 93 mL/min/1.73 sq.m. Ages 60-69 = 85 mL/min/1.73 sq.m. Ages 70+ = 75 mL/min/1.73 sq.m. Chronic Kidney Disease: Less than 60 mL/min/1.73 square meters End Stage Renal Disease: Less than 15 mL/min/1.73 square meters GFR/1.73 sq M.predicted among non-blacks MDRD (S/P/Bld) [Vol rate/Area] 88 ml/min/1.73sqm Invalid Interpretation Code AO Chemistry S Comment on above: Interpretive Data: GFR Population mean for , Non- Americans Ages 20-29 = 116 mL/min/1.73 sq.m. Ages 30-39 = 107 mL/min/1.73 sq.m. Ages 40-49 = 99 mL/min/1.73 sq.m. Ages 50-59 = 93 mL/min/1.73 sq.m. Ages 60-69 = 85 mL/min/1.73 sq.m. Ages 70+ = 75 mL/min/1.73 sq.m. Chronic Kidney Disease: Less than 60 mL/min/1.73 square meters End Stage Renal Disease: Less than 15 mL/min/1.73 square meters Globulin 4.1 G/dL Invalid Interpretation Code AO ADM SS Glucose [Mass/Vol] 98 mg/dL Normal 80 - 115 mg/dL AO ADM SS Potassium [Moles/Vol] 4.9 mmol/L Normal 3.5 - 5.1 mmol/L AO ADM SS Prostate specific Ag [Mass/Vol] 1.53 ng/mL Normal 0.00 - 4.00 ng/mL AO ADM SS Protein [Mass/Vol] 7.6 G/dL Normal 6.4 - 8.2 G/dL AO ADM SS Sodium [Moles/Vol] 137 mmol/L Normal 136 - 145 mmol/L AO ADM SS Urea nitrogen [Mass/Vol] 12 mg/dL Normal 7 - 18 mg/dL AO ADM SS Urea nitrogen/Creatinine [Mass ratio] 14 ratio Normal 7 - 27 ratio AO ADM SS LABORATORYOrdered By: Chance West on 11-27-2023 Cholesterol [Mass/Vol] 207 mg/dL High 0 - 2 00 mg/dL AO ADM SS Comment on above: Interpretive Data: C holesterol Reference Interval: Less than 200 Desirable 200-239 Borderline high risk 240 and above High risk Cholesterol in HDL [Mass/Vol] 86 mg/dL High 40 - 60 mg/dL AO ADM SS Cholesterol in LDL [Mass/Vol] 111 mg/dL Normal 0 - 130 mg/dL AO ADM SS Triglyceride [Mass/Vol] 48 mg/dL Normal 0 - 150 mg/dL AO ADM SS Comment on above: Interpretive Data: T riglyceride Reference Interval: Less than 150 Normal 150-199 Borderline high risk 200-499 High risk 500 or higher Very high risk LIPIDon 11-27-2023 Cholesterol [Mass/Vol] 207 mg/dL High 0-200 [facility] ([place]) Comment on above: Result Comment: Chol esterol Reference Interval: Less than 200 Desirable 200-239 Borderline high risk 240 and above High risk Performed By: #### L IPID, PSA, CMP, GFR #### [address] [address] Cholesterol in HDL [Mass/Vol] 86 mg/dL High 40-60 [facility] ([place]) Comment on above: Performed By: #### L IPID, PSA, CMP, GFR #### [address] [address] Cholesterol in LDL [Mass/Vol] 111 mg/dL Normal 0-130 [facility] ([place]) Comment on above: Performed By: #### L IPID, PSA, CMP, GFR #### [address] [address] Triglyceride [Mass/Vol] 48 mg/dL Normal 0-150 [facility] ([place]) Comment on above: Result Comment: Trig lyceride Reference Interval: Less than 150 Normal 150-199 Borderline high risk 200-499 High risk 500 or higher Very high risk Performed By: #### L IPID, PSA, CMP, GFR #### [facility] [address] [place], [place] [address] PSAon 11-27-2023 Prostate Specific Antigen 1.53 ng/mL Normal 0.00-4.00 [facility] ([place]) Comment on above: Performed By: #### L IPID, PSA, CMP, GFR #### [facility] [address] [place], [place] [address] No Panel Informationon 09-24 Culture Urine No growth at 48 hours. [facility] Work Phone: LABORATORYOrdered By: Rachel Marcelo on 08-16-2021 Albumin BCP dye [Mass/Vol] 3.7 G/dL Inval id Interpretation Code 3.4 - 4.8 G/dL AO ADM SS Albumin/Globulin [Mass ratio] 1.0 {ratio} Invalid Interpretation Code 1.1 - 2.5 ratio AO ADM SS ALP [Catalytic activity/Vol] 98 U/L Invalid Interpretation Code 40 - 135 U/L AO ADM SS ALT With P-5'-P [Catalytic activity/Vol] 29 U/L Invalid Interpretation Code 16 - 63 U/L AO ADM SS AST With P-5'-P [Catalytic activity/Vol] 28 U/L Invalid Interpretation Code 10 - 40 U/L AO ADM SS Basophil, Absolute 0.10 103/mcL Invalid Interpretation Code 0.00 - 0.19 10^3/mcL AO Auto Heme SS Basophils/100 WBC (Bld) 0.7 % Invalid Interpretation Code 0.0 - 2.5 % AO Auto Heme SS Bilirubin [Mass/Vol] 0.7 mg/dL Invalid Interpretation Code 0.2 - 1.0 mg/dL AO ADM SS Calcium [Mass/Vol] 8.8 mg/dL Invalid Interpretation Code 8.4 - 10.2 mg/dL AO ADM SS Chloride [Moles/Vol] 101 mmol/L Invalid Interpretation Code 98 - 107 mmol/L AO ADM SS CO2 [Moles/Vol] 27 mmol/L Invalid Interpretation Code 23 - 31 mmol/L AO ADM SS Creatinine [Mass/Vol] 0.89 mg/dL Invalid Interpretation Code 0.70 - 1.30 mg/dL AO ADM SS Electrolyte Balance 8.0 mEq/L Invalid Interpretation Code AO ADM SS Eosinophil, Absolute 0.10 103/mcL Invalid Interpretation Code 0.00 - 0.40 10^3/mcL AO Auto Heme SS Eosinophils/100 WBC (Bld) 1.2 % Invali d Interpretation Code 0.0 - 7.0 % AO Auto Heme SS Erythrocyte distribution width (RBC) [Ratio] 13.8 % Invalid Interpretation Code 11.5 - 14.5 % AO Auto Heme SS Globulin 3.6 G/dL Invalid Interpretation Code AO ADM SS Glucose [Mass/Vol] 91 mg/dL Invalid Interpretation Code 80 - 115 mg/dL AO ADM SS Hematocrit (Bld) [Volume fraction] 45.1 % Invalid Interpretation Code 42.0 - 52.0 % AO Auto Heme SS Hemoglobin (Bld) [Mass/Vol] 15.2 G/dL Inva lid Interpretation Code 14.0 - 18.0 G/dL AO Auto Heme SS Lymphocyte, Absolute 2.00 103/mcL Invalid Interpretation Code 0.77 - 3.85 10^3/mcL AO Auto Heme SS Lymphocytes/100 WBC (Bld) 25.6 % Invali d Interpretation Code 10.0 - 50.0 % AO Auto Heme SS MCH (RBC) [Entitic mass] 31.3 pg Invalid Interpretation Code 27.0 - 31.2 pg AO Auto Heme SS MCHC (RBC) [Mass/Vol] 33.7 G/dL Invalid Interpretation Code 31.8 - 35.4 G/dL AO Auto Heme SS MCV (RBC) [Entitic vol] 92.7 fL Invalid Interpretation Code 80.0 - 94.0 fL AO Auto Heme SS Monocyte, Absolute 1.00 103/mcL Invalid Interpretation Code 0.15 - 1.00 10^3/mcL AO Auto Heme SS Monocytes/100 WBC (Bld) 12.9 % Invalid Interpretation Code 1.7 - 13.0 % AO Auto Heme SS Neutrophil, Absolute 4.60 103/mcL Invalid Interpretation Code 2.85 - 6.16 10^3/mcL AO Auto Heme SS Neutrophils/100 WBC (Bld) 59.6 % Invali d Interpretation Code 37.0 - 80.0 % AO Auto Heme SS Platelet mean volume (Bld) [Entitic vol] 9.1 fL Invalid Interpretation Code 7.4 - 10.4 fL AO Auto Heme SS Platelets (Bld) [#/Vol] 345 103/mcL Invalid Interpretation Code 130 - 400 10^3/mcL AO Auto Heme SS Potassium [Moles/Vol] 5.0 mmol/L Invalid Interpretation Code 3.5 - 5.1 mmol/L AO ADM SS Protein [Mass/Vol] 7.3 G/dL Invalid Interpretation Code 6.4 - 8.2 G/dL AO ADM SS RBC (Bld) [#/Vol] 4.86 106/mcL Invalid Interpretation Code 4.04 - 6.13 10^6/mcL AO Auto Heme SS Sodium [Moles/Vol] 136 mmol/L Invalid Interpretation Code 136 - 145 mmol/L AO ADM SS Urea nitrogen [Mass/Vol] 8 mg/dL Invalid Interpretation Code 7 - 18 mg/dL AO ADM SS Urea nitrogen/Creatinine [Mass ratio] 9 ratio Invalid Interpretation Code 7 - 27 ratio AO ADM SS WBC (Bld) [#/Vol] 7.70 103/mcL Invalid Interpretation Code 4.60 - 10.80 10^3/mcL AO Auto Heme SS LABORATORYOrdered By: SYSTEM SYSTEM on 08-16-2021 GFR 104 ml/min/1.73sqm Invalid Interpretation Code AO Chemistry S GFR Non- 86 ml/min/1.73sqm Inval id Interpretation Code AO Chemistry S Vital Signs Date Time Vital Sign Value Performing Clinician Devendra yap 07-26-2025 08:30-0400 Body height 162.56 cm JESUS LONDON [employer] DATA ANALYST-C Work Phone: [facility] 07-26-2025 08:30-0400 Body mass index (BMI) [Ratio] 18 kg/m2 JESUS LONDON MASTER DATA ANALYST-C Work Phone: [facility] 07-26-2025 08:30-0400 Body temperature 97.6 [degF] JESUS LONDON MASTER DATA ANALYST-C Work Phone: [facility] 07-26-2025 08:30-0400 Body weight 47.62 kg JESUS LONDON MASTER DATA ANALYST-C Work Phone: [facility] 07-26-2025 08:30-0400 Diastolic blood pressure 68 mm[Hg] JESUS LONDON MASTER DATA ANALYST-C Work Phone: [facility] 07-26-2025 08:30-0400 Heart rate 63 /min JESUS LONDON MASTER DATA ANALYST-C Work Phone: [facility] 07-26-2025 08:30-0400 Respiratory rate 16 /min JESUS LONDON MASTER DATA ANALYST-C Work Phone: [facility] 07-26-2025 08:30-0400 SaO2% (BldA) [Mass fraction] 100 % JESUS LONDON MASTER DATA ANALYST-C Work Phone: [facility] 07-26-2025 08:30-0400 Systolic blood pressure 123 mm[Hg] JESUS LONDON MASTER DATA ANALYST-C Work Phone: [facility] 07-19-2025 10:07-0400 Body height 162.56 cm JESUS LONDON MASTER DATA ANALYST-C Work Phone: [facility] 07-19-2025 10:07-0400 Body mass index (BMI) [Ratio] 18.2 kg/m2 JESUS LONDON MASTER DATA ANALYST-C Work Phone: [facility] 07-19-2025 10:07-0400 Body temperature 98.2 [degF] JESUS LONDON MASTER DATA ANALYST-C Work Phone: [facility] 07-19-2025 10:07-0400 Body weight 48.13 kg JESUS LONDON MASTER DATA ANALYST-C Work Phone: [facility] 07-19-2025 10:07-0400 Diastolic blood pressure 71 mm[Hg] JESUS LONDON MASTER DATA ANALYST-C Work Phone: [facility] 07-19-2025 10:07-0400 Heart rate 64 /min JESUS LONDON MASTER DATA ANALYST-C Work Phone: [facility] 07-19-2025 10:07-0400 Respiratory rate 16 /min JESUS LONDON MASTER DATA ANALYST-C Work Phone: [facility] 07-19-2025 10:07-0400 SaO2% (BldA) [Mass fraction] 98 % JESUS LONDON MASTER DATA ANALYST-C Work Phone: [facility] 07-19-2025 10:07-0400 Systolic blood pressure 104 mm[Hg] JESUS LONDON MASTER DATA ANALYST-C Work Phone: [facility] 07-06-2025 13:51-0400 Body temperature 97.3 [degF] JESUS LONDON MASTER DATA ANALYST-C Work Phone: [facility] 07-06-2025 13:51-0400 Diastolic blood pressure 52 mm[Hg] JESUS LONDON MASTER DATA ANALYST-C Work Phone: [facility] 07-06-2025 13:51-0400 Heart rate 92 /min JESUS LONDON MASTER DATA ANALYST-C Work Phone: [facility] 07-06-2025 13:51-0400 Respiratory rate 16 /min JESUS LONDON MASTER DATA ANALYST-C Work Phone: [facility] 07-06-2025 13:51-0400 SaO2% (BldA) [Mass fraction] 95 % JESUS LONDON MASTER DATA ANALYST-C Work Phone: [facility] 07-06-2025 13:51-0400 Systolic blood pressure 125 mm[Hg] JESUS LONDON MASTER DATA ANALYST-C Work Phone: [facility] 07-05-2025 08:40-0400 Body height 162.56 cm JESUS LONDON MASTER DATA ANALYST-C Work Phone: [facility] 07-05-2025 08:40-0400 Body mass index (BMI) [Ratio] 17.9 kg/m2 JESUS LONDON MASTER DATA ANALYST-C Work Phone: [facility] 07-05-2025 08:40-0400 Body temperature 98.3 [degF] JESUS LONDON MASTER DATA ANALYST-C Work Phone: [facility] 07-05-2025 08:40-0400 Body weight 47.4 kg JESUS LONDON MASTER DATA ANALYST-C Work Phone: [facility] 07-05-2025 08:40-0400 Diastolic blood pressure 76 mm[Hg] JESUS LONDON MASTER DATA ANALYST-C Work Phone: [facility] 07-05-2025 08:40-0400 Heart rate 63 /min JESUS LONDON MASTER DATA ANALYST-C Work Phone: [facility] 07-05-2025 08:40-0400 Respiratory rate 18 /min JESUS LONDON MASTER DATA ANALYST-C Work Phone: [facility] 07-05-2025 08:40-0400 SaO2% (BldA) [Mass fraction] 98 % JESUS LONDON MASTER DATA ANALYST-C Work Phone: [facility] 07-05-2025 08:40-0400 Systolic blood pressure 159 mm[Hg] JESUS LONDON MASTER DATA ANALYST-C Work Phone: [facility] 06-29-2025 09:25-0400 Body height 162.56 cm JESUS LONDON MASTER DATA ANALYST-C Work Phone: [facility] 06-29-2025 09:25-0400 Body mass index (BMI) [Ratio] 18.1 kg/m2 JESUS LONDON MASTER DATA ANALYST-C Work Phone: [facility] 06-29-2025 09:25-0400 Body temperature 98.2 [degF] JESUS LONDON MASTER DATA ANALYST-C Work Phone: [facility] 06-29-2025 09:25-0400 Body weight 48.08 kg JESUS LONDON MASTER DATA ANALYST-C Work Phone: [facility] 06-29-2025 09:25-0400 Diastolic blood pressure 85 mm[Hg] JESUS LONDON MASTER DATA ANALYST-C Work Phone: [facility] 06-29-2025 09:25-0400 Heart rate 68 /min JESUS LONDON MASTER DATA ANALYST-C Work Phone: [facility] 06-29-2025 09:25-0400 Respiratory rate 18 /min JESUS LONDON MASTER DATA ANALYST-C Work Phone: [facility] 06-29-2025 09:25-0400 SaO2% (BldA) [Mass fraction] 95 % JESUS LONDON MASTER DATA ANALYST-C Work Phone: [facility] 06-29-2025 09:25-0400 Systolic blood pressure 135 mm[Hg] JESUS LONDON MASTER DATA ANALYST-C Work Phone: [facility] 06-14-2025 13:03-0400 Body temperature 96.3 [degF] JESUS LONDON MASTER DATA ANALYST-C Work Phone: [facility] 06-14-2025 13:03-0400 Diastolic blood pressure 50 mm[Hg] JESUS LONDON MASTER DATA ANALYST-C Work Phone: [facility] 06-14-2025 13:03-0400 Heart rate 62 /min JESUS LONDON MASTER DATA ANALYST-C Work Phone: [facility] 06-14-2025 13:03-0400 Respiratory rate 16 /min JESUS LONDON MASTER DATA ANALYST-C Work Phone: [facility] 06-14-2025 13:03-0400 SaO2% (BldA) [Mass fraction] 98 % JESUS LONDON MASTER DATA ANALYST-C Work Phone: [facility] 06-14-2025 13:03-0400 Systolic blood pressure 99 mm[Hg] JESUS LONDON MASTER DATA ANALYST-C Work Phone: [facility] 06-14-2025 08:38-0400 Body height 162.56 cm JESUS LONDON MASTER DATA ANALYST-C Work Phone: [facility] 06-14-2025 08:38-0400 Body mass index (BMI) [Ratio] 18.2 kg/m2 JESUS LONDON MASTER DATA ANALYST-C Work Phone: [facility] 06-14-2025 08:38-0400 Body temperature 98.2 [degF] JESUS LONDON MASTER DATA ANALYST-C Work Phone: [facility] 06-14-2025 08:38-0400 Body weight 48.27 kg JESUS LONDON MASTER DATA ANALYST-C Work Phone: [facility] 06-14-2025 08:38-0400 Diastolic blood pressure 81 mm[Hg] JESUS LONDON MASTER DATA ANALYST-C Work Phone: [facility] 06-14-2025 08:38-0400 Heart rate 61 /min JESUS LONDON MASTER DATA ANALYST-C Work Phone: [facility] 06-14-2025 08:38-0400 Respiratory rate 18 /min JESUS LONDON MASTER DATA ANALYST-C Work Phone: [facility] 06-14-2025 08:38-0400 SaO2% (BldA) [Mass fraction] 97 % JESUS LONDON MASTER DATA ANALYST-C Work Phone: [facility] 06-14-2025 08:38-0400 Systolic blood pressure 146 mm[Hg] JESUS LONDON MASTER DATA ANALYST-C Work Phone: [facility] 06-12-2025 11:38-0400 Body mass index (BMI) [Ratio] 17.9 kg/m2 JESUS LONDON MASTER DATA ANALYST-C Work Phone: [facility] 06-12-2025 09:29-0400 Body mass index (BMI) [Ratio] 17.9 kg/m2 JESUS LONDON MASTER DATA ANALYST-C Work Phone: [facility] 06-12-2025 09:29-0400 Body temperature 98.3 [degF] JESUS LONDON MASTER DATA ANALYST-C Work Phone: [facility] 06-12-2025 09:29-0400 Body weight 47.34 kg JESUS LONDON MASTER DATA ANALYST-C Work Phone: [facility] 06-12-2025 09:29-0400 Diastolic blood pressure 81 mm[Hg] JSEUS LONDON MASTER DATA ANALYST-C Work Phone: [facility] 06-12-2025 09:29-0400 Heart rate 66 /min JESUS LONDON MASTER DATA ANALYST-C Work Phone: [facility] 06-12-2025 09:29-0400 Respiratory rate 18 /min JESUS LONDON MASTER DATA ANALYST-C Work Phone: [facility] 06-12-2025 09:29-0400 SaO2% (BldA) [Mass fraction] 99 % JESUS LONDON MASTER DATA ANALYST-C Work Phone: [facility] 06-12-2025 09:29-0400 Systolic blood pressure 158 mm[Hg] JESUS LONDON MASTER DATA ANALYST-C Work Phone: [facility] 06-05-2025 15:45-0400 Body temperature 97.8 [degF] JESUS LONDON MASTER DATA ANALYST-C Work Phone: [facility] 06-05-2025 15:45-0400 Diastolic blood pressure 53 mm[Hg] JESUS LONDON MASTER DATA ANALYST-C Work Phone: [facility] 06-05-2025 15:45-0400 Heart rate 62 /min JESUS LONDON MASTER DATA ANALYST-C Work Phone: [facility] 06-05-2025 15:45-0400 Respiratory rate 16 /min JESUS LONDON MASTER DATA ANALYST-C Work Phone: [facility] 06-05-2025 15:45-0400 SaO2% (BldA) [Mass fraction] 92 % JESUS LONDON MASTER DATA ANALYST-C Work Phone: [facility] 06-05-2025 15:45-0400 Systolic blood pressure 114 mm[Hg] JESUS LONDON MASTER DATA ANALYST-C Work Phone: [facility] 06-05-2025 12:28-0400 Body height 162.56 cm JESUS LONDON MASTER DATA ANALYST-C Work Phone: [facility] 06-05-2025 12:28-0400 Body mass index (BMI) [Ratio] 17.7 kg/m2 JESUS LONDON MASTER DATA ANALYST-C Work Phone: [facility] 06-05-2025 12:28-0400 Body weight 47 kg JESUS LONDON MASTER DATA ANALYST-C Work Phone: [facility] 05-31-2025 12:58-0400 Body height 162.56 cm JESUS LONDON MASTER DATA ANALYST-C Work Phone: [facility] 05-31-2025 12:58-0400 Body mass index (BMI) [Ratio] 18.1 kg/m2 JESUS LONDON MASTER DATA ANALYST-C Work Phone: [facility] 05-31-2025 12:58-0400 Body weight 48.08 kg JESUS LONDON MASTER DATA ANALYST-C Work Phone: [facility] 05-31-2025 12:58-0400 Diastolic blood pressure 61 mm[Hg] JESUS LONDON MASTER DATA ANALYST-C Work Phone: [facility] 05-31-2025 12:58-0400 Respiratory rate 16 /min JESUS LONDON MASTER DATA ANALYST-C Work Phone: [facility] 05-31-2025 12:58-0400 Systolic blood pressure 119 mm[Hg] JESUS LONDON MASTER DATA ANALYST-C Work Phone: [facility] 05-29-2025 10:38-0400 Body height 162.56 cm JESUS LONDON MASTER DATA ANALYST-C Work Phone: [facility] 05-29-2025 10:38-0400 Body mass index (BMI) [Ratio] 18.1 kg/m2 JESUS LONDON MASTER DATA ANALYST-C Work Phone: [facility] 05-29-2025 10:38-0400 Body temperature 98 [degF] JESUS LONDON MASTER DATA ANALYST-C Work Phone: [facility] 05-29-2025 10:38-0400 Body weight 47.82 kg JESUS LONDON MASTER DATA ANALYST-C Work Phone: [facility] 05-29-2025 10:38-0400 Diastolic blood pressure 73 mm[Hg] JESUS LONDON MASTER DATA ANALYST-C Work Phone: [facility] 05-29-2025 10:38-0400 Heart rate 64 /min JESUS LONDON MASTER DATA ANALYST-C Work Phone: [facility] 05-29-2025 10:38-0400 Respiratory rate 18 /min JESUS LONDON MASTER DATA ANALYST-C Work Phone: [facility] 05-29-2025 10:38-0400 SaO2% (BldA) [Mass fraction] 99 % JESUS LONDON MASTER DATA ANALYST-C Work Phone: [facility] 05-29-2025 10:38-0400 Systolic blood pressure 143 mm[Hg] JESUS LONDON MASTER DATA ANALYST-C Work Phone: [facility] 05-01-2025 09:24-0400 Body height 162.56 cm JESUS LONDON MASTER DATA ANALYST-C Work Phone: [facility] 05-01-2025 09:24-0400 Body mass index (BMI) [Ratio] 18 kg/m2 JESUS LONDON MASTER DATA ANALYST-C Work Phone: [facility] 05-01-2025 09:24-0400 Body weight 47.62 kg JESUS LONDON MASTER DATA ANALYST-C Work Phone: [facility] 05-01-2025 09:17-0400 Body temperature 98.2 [degF] JESUS LONDON MASTER DATA ANALYST-C Work Phone: [facility] 05-01-2025 09:17-0400 Diastolic blood pressure 83 mm[Hg] JESUS LONDON MASTER DATA ANALYST-C Work Phone: [facility] 05-01-2025 09:17-0400 Heart rate 69 /min JESUS LONDON MASTER DATA ANALYST-C Work Phone: [facility] 05-01-2025 09:17-0400 Respiratory rate 16 /min JESUS LONDON MASTER DATA ANALYST-C Work Phone: [facility] 05-01-2025 09:17-0400 SaO2% (BldA) [Mass fraction] 98 % JESUS LONDON MASTER DATA ANALYST-C Work Phone: [facility] 05-01-2025 09:17-0400 Systolic blood pressure 143 mm[Hg] JESUS LONDON MASTER DATA ANALYST-C Work Phone: [facility] 04-19-2025 07:42-0400 Body height 162.56 cm JESUS LONDON MASTER DATA ANALYST-C Work Phone: [facility] 04-19-2025 07:42-0400 Body mass index (BMI) [Ratio] 18.8 kg/m2 JESUS LONDON MASTER DATA ANALYST-C Work Phone: [facility] 04-19-2025 07:42-0400 Body temperature 97.4 [degF] JESUS LONDON MASTER DATA ANALYST-C Work Phone: [facility] 04-19-2025 07:42-0400 Body weight 49.89 kg JESUS LONDON MASTER DATA ANALYST-C Work Phone: [facility] 04-19-2025 07:42-0400 Diastolic blood pressure 86 mm[Hg] JESUS LONDON MASTER DATA ANALYST-C Work Phone: [facility] 04-19-2025 07:42-0400 Heart rate 54 /min JESUS LONDON MASTER DATA ANALYST-C Work Phone: [facility] 04-19-2025 07:42-0400 Respiratory rate 18 /min JESUS LONDON MASTER DATA ANALYST-C Work Phone: [facility] 04-19-2025 07:42-0400 SaO2% (BldA) [Mass fraction] 98 % JESUS LONDON MASTER DATA ANALYST-C Work Phone: [facility] 04-19-2025 07:42-0400 Systolic blood pressure 142 mm[Hg] JESUS LONDON MASTER DATA ANALYST-C Work Phone: [facility] 04-10-2025 14:47-0400 Body temperature 97.7 [degF] JESUS LONDON MASTER DATA ANALYST-C Work Phone: [facility] 04-10-2025 14:47-0400 Diastolic blood pressure 65 mm[Hg] JESUS LONDON MASTER DATA ANALYST-C Work Phone: [facility] 04-10-2025 14:47-0400 Heart rate 58 /min JESUS LONDON MASTER DATA ANALYST-C Work Phone: [facility] 04-10-2025 14:47-0400 Respiratory rate 18 /min JESUS LONDON MASTER DATA ANALYST-C Work Phone: [facility] 04-10-2025 14:47-0400 SaO2% (BldA) [Mass fraction] 95 % JESUS LONDON MASTER DATA ANALYST-C Work Phone: [facility] 04-10-2025 14:47-0400 Systolic blood pressure 126 mm[Hg] JESUS LONDON MASTER DATA ANALYST-C Work Phone: [facility] 04-08-2025 14:25-0400 Inhaled oxygen flow rate 2 L/min JESUS LONDON MASTER DATA ANALYST-C Work Phone: [facility] 04-07-2025 14:21-0400 Body height 162.56 cm JESUS LONDON MASTER DATA ANALYST-C Work Phone: [facility] 04-07-2025 14:21-0400 Body mass index (BMI) [Ratio] 20 kg/m2 JESUS LONDON MASTER DATA ANALYST-C Work Phone: [facility] 04-07-2025 14:21-0400 Body weight 53.07 kg JESUS LONDON MASTER DATA ANALYST-C Work Phone: [facility] 04-07-2025 13:51-0400 Body temperature 98.6 [degF] JESUS LONDON MASTER DATA ANALYST-C Work Phone: [facility] 04-07-2025 13:51-0400 Diastolic blood pressure 64 mm[Hg] JESUS LONDON MASTER DATA ANALYST-C Work Phone: [facility] 04-07-2025 13:51-0400 Heart rate 55 /min JESUS LONDON MASTER DATA ANALYST-C Work Phone: 4(688)687-845249 [place] [address] 04-07-2025 13:51-0400 Respiratory rate 18 /min JESUS LONDON MASTER DATA ANALYST-C Work Phone: [facility] 04-07-2025 13:51-0400 SaO2% (BldA) [Mass fraction] 99 % JESUS LONDON MASTER DATA ANALYST-C Work Phone: 7(137)961-835449 [place] [address] 04-07-2025 13:51-0400 Systolic blood pressure 135 mm[Hg] JESUS LONDON MASTER DATA ANALYST-C Work Phone: 2(034)514-832549 [place] [address] 04-07-2025 13:00-0400 Inhaled oxygen flow rate 5 L/min JESUS LONODN MASTER DATA ANALYST-C Work Phone: 8(454)319-735249 [place] [address] 04-07-2025 10:47-0400 Body height 162.56 cm JESUS LONDON MASTER DATA ANALYST-C Work Phone: 3(743)263-825949 [place] [address] 04-07-2025 10:47-0400 Body mass index (BMI) [Ratio] 19.2 kg/m2 JESUS LONDON MASTER DATA ANALYST-C Work Phone: [facility] 04-07-2025 10:47-0400 Body weight 50.8 kg JESUS LONDON MA[employer] DATA ANALYST-C Work Phone: 9(606)396-601349 [place] [address] 04-07-2025 10:42-0400 Diastolic blood pressure 79 mm[Hg] JESUS LONDON MASTER DATA ANALYST-C Work Phone: [facility] 04-07-2025 10:42-0400 Heart rate 84 /min JESUS LONDON MASTER DATA ANALYST-C Work Phone: 5(533)150-300649 [place] [address] 04-07-2025 10:42-0400 Inhaled oxygen flow rate 3 L/min JESUS LONDNO MASTER DATA ANALYST-C Work Phone: [facility] 04-07-2025 10:42-0400 Respiratory rate 33 /min JESUS LONDON MASTER DATA ANALYST-C Work Phone: [facility] 04-07-2025 10:42-0400 SaO2% (BldA) [Mass fraction] 92 % JESUS LONDON MASTER DATA ANALYST-C Work Phone: [facility] 04-07-2025 10:42-0400 Systolic blood pressure 151 mm[Hg] JESUS LONDON MASTER DATA ANALYST-C Work Phone: 4(264)320-749149 [place] [address] 04-07-2025 09:35-0400 Body mass index (BMI) [Ratio] 20.5 kg/m2 JESUS LONDON MASTER DATA ANALYST-C Work Phone: 9(788)422-133749 [place] [address] 04-07-2025 09:35-0400 Body temperature 97.3 [degF] JESUS LONDON MA[employer] DATA ANALYST-C Work Phone: 5(878)485-954249 [place] [address] 04-07-2025 09:35-0400 Body weight 54.43 kg JESUS LONDON MA[employer] DATA ANALYST-C Work Phone: 2(726)296-956449 [place] [address] 03-14-2025 07:55-0400 Body mass index (BMI) [Ratio] 19.3 kg/m2 JESUS LONDON MA[employer] DATA ANALYST-C Work Phone: 8(289)599-237549 [place] [address] 03-14-2025 07:55-0400 Body temperature 97.4 [degF] JESUS LONDON MASTER DATA ANALYST-C Work Phone: [facility] 03-14-2025 07:55-0400 Body weight 51.25 kg JESUS LONDON MASTER DATA ANALYST-C Work Phone: 4(321)967-681549 [place] [address] 03-14-2025 07:55-0400 Diastolic blood pressure 79 mm[Hg] JESUS LONDON MASTER DATA ANALYST-C Work Phone: [facility] 03-14-2025 07:55-0400 Heart rate 85 /min JESUS LONDON MASTER DATA ANALYST-C Work Phone: [facility] 03-14-2025 07:55-0400 Respiratory rate 18 /min JESUS LONDON MASTER DATA ANALYST-C Work Phone: [facility] 03-14-2025 07:55-0400 SaO2% (BldA) [Mass fraction] 96 % JESUS LONDON MASTER DATA ANALYST-C Work Phone: [facility] 03-14-2025 07:55-0400 Systolic blood pressure 168 mm[Hg] JESUS LONDON MASTER DATA ANALYST-C Work Phone: [facility] 03-02-2025 12:46-0400 Body weight 54.43 kg JESUS LONDON MASTER DATA ANALYST-C Work Phone: [facility] 03-02-2025 12:46-0400 Heart rate 77 /min JESUS LONDON MASTER DATA ANALYST-C Work Phone: [phone] [place] [address] 03-02-2025 12:46-0400 SaO2% (BldA) [Mass fraction] 97 % JESUS LONDON MASTER DATA ANALYST-C Work Phone: [facility] 01-31-2025 07:50-0400 Body mass index (BMI) [Ratio] 18.8 kg/m2 JESUS LONDON MASTER DATA ANALYST-C Work Phone: [facility] 01-31-2025 07:50-0400 Body temperature 97.5 [degF] JESUS LONDON MASTER DATA ANALYST-C Work Phone: [facility] 01-31-2025 07:50-0400 Body weight 49.89 kg JESUS LONDON MASTER DATA ANALYST-C Work Phone: [facility] 01-31-2025 07:50-0400 Heart rate 88 /min JESUS LONDON MASTER DATA ANALYST-C Work Phone: [facility] 01-31-2025 07:50-0400 Respiratory rate 18 /min JESUS LONDON MASTER DATA ANALYST-C Work Phone: [facility] 01-31-2025 07:50-0400 SaO2% (BldA) [Mass fraction] 99 % JESUS LONDON MASTER DATA ANALYST-C Work Phone: [facility] 12-26-2024 13:14-0500 Body temperature 98.6 [degF] JESUS LONDON MASTER DATA ANALYST-C Work Phone: [facility] 12-26-2024 13:14-0500 Body weight 53.07 kg JESUS LONDON MASTER DATA ANALYST-C Work Phone: [facility] 12-26-2024 13:14-0500 Diastolic blood pressure 65 mm[Hg] JESUS LONDON MASTER DATA ANALYST-C Work Phone: [phone] [place] [address] 12-26-2024 13:14-0500 Heart rate 87 /min JESUS LONDON MASTER DATA ANALYST-C Work Phone: [phone] [place] [address] 12-26-2024 13:14-0500 Respiratory rate 16 /min JESUS LONDON MASTER DATA ANALYST-C Work Phone: [facility] 12-26-2024 13:14-0500 SaO2% (BldA) [Mass fraction] 98 % JESUS LONDON MASTER DATA ANALYST-C Work Phone: [facility] 12-26-2024 13:14-0500 Systolic blood pressure 115 mm[Hg] JESUS LONDON MASTER DATA ANALYST-C Work Phone: [facility] 11-11-2024 13:16-0500 Body temperature 97.8 [degF] JESUS LONDON MASTER DATA ANALYST-C Work Phone: [facility] 11-11-2024 13:16-0500 Body weight 53.07 kg JESUS LONDON MASTER DATA ANALYST-C Work Phone: [facility] 11-11-2024 13:16-0500 Diastolic blood pressure 67 mm[Hg] JESUS LONDON MASTER DATA ANALYST-C Work Phone: [facility] 11-11-2024 13:16-0500 Heart rate 60 /min JESUS LONDON MASTER DATA ANALYST-C Work Phone: [facility] 11-11-2024 13:16-0500 Respiratory rate 16 /min JESUS LONDON MASTER DATA ANALYST-C Work Phone: [facility] 11-11-2024 13:16-0500 SaO2% (BldA) [Mass fraction] 98 % JESUS LONDON MASTER DATA ANALYST-C Work Phone: [facility] 11-11-2024 13:16-0500 Systolic blood pressure 117 mm[Hg] JESUS LONDON MASTER DATA ANALYST-C Work Phone: [facility] 11-08-2024 11:22-0500 Body height 162.56 cm JESUS LONDON MASTER DATA ANALYST-C Work Phone: [facility] 11-08-2024 11:22-0500 Body weight 50.3 kg JESUS LONDON MASTER DATA ANALYST-C Work Phone: [facility] 11-08-2024 09:48-0500 Diastolic blood pressure 52 mm[Hg] JESUS LONDON MASTER DATA ANALYST-C Work Phone: [facility] 11-08-2024 09:48-0500 Heart rate 80 /min JESUS LONDON MASTER DATA ANALYST-C Work Phone: [facility] 11-08-2024 09:48-0500 Systolic blood pressure 104 mm[Hg] JESUS LONDON MASTER DATA ANALYST-C Work Phone: [facility] 11-08-2024 08:21-0500 SaO2% (BldA) [Mass fraction] 96 % JESUS LONDON MASTER DATA ANALYST-C Work Phone: [facility] 11-08-2024 08:17-0500 Body temperature 97.5 [degF] JESUS LONDON MASTER DATA ANALYST-C Work Phone: [facility] 11-08-2024 08:17-0500 Respiratory rate 18 /min JESUS LONDON MASTER DATA ANALYST-C Work Phone: [facility] 11-08-2024 05:29-0500 Body mass index (BMI) [Ratio] 19 kg/m2 JESUS LONDON MASTER DATA ANALYST-C Work Phone: [facility] 01-15-2024 12:27-0500 Body height 162.56 cm No Primary Care Physician [facility] 01-15-2024 12:27-0500 Body weight 53.97 kg No Primary Care Physician [facility] 01-15-2024 12:27-0500 Heart rate 96 /min No Primary Care Physician [facility] 01-15-2024 12:27-0500 SaO2% (BldA) [Mass fraction] 97 % No Primary Care Physician [facility] 01-09-2024 13:32-0500 Body temperature 98.2 [degF] No Primary Care Physician [facility] 01-09-2024 13:32-0500 Diastolic blood pressure 43 mm[Hg] No Primary Care Physician [facility] 01-09-2024 13:32-0500 Heart rate 69 /min No Primary Care Physician [facility] 01-09-2024 13:32-0500 Respiratory rate 16 /min No Primary Care Physician [facility] 01-09-2024 13:32-0500 SaO2% (BldA) [Mass fraction] 93 % No Primary Care Physician [facility] 01-09-2024 13:32-0500 Systolic blood pressure 93 mm[Hg] No Primary Care Physician [facility] 01-09-2024 08:59-0500 Inhaled oxygen flow rate 2 L/min No Primary Care Physician [facility] 01-08-2024 13:36-0500 Body height 162.56 cm No Primary Care Physician [facility] 01-08-2024 13:36-0500 Body mass index (BMI) [Ratio] 19.2 kg/m2 No Primary Care Physician [facility] 01-08-2024 13:36-0500 Body weight 50.8 kg No Primary Care Physician [facility] 01-08-2024 12:15-0500 Body temperature 97.3 [degF] No Primary Care Physician [facility] 01-08-2024 12:15-0500 Diastolic blood pressure 62 mm[Hg] No Primary Care Physician [facility] 01-08-2024 12:15-0500 Heart rate 56 /min No Primary Care Physician [facility] 01-08-2024 12:15-0500 Respiratory rate 20 /min No Primary Care Physician [facility] 01-08-2024 12:15-0500 SaO2% (BldA) [Mass fraction] 90 % No Primary Care Physician [facility] 01-08-2024 12:15-0500 Systolic blood pressure 115 mm[Hg] No Primary Care Physician [facility] 01-08-2024 10:17-0500 Body height 162.56 cm No Primary Care Physician [facility] 01-08-2024 10:17-0500 Body mass index (BMI) [Ratio] 20.4 kg/m2 No Primary Care Physician [facility] 01-08-2024 10:17-0500 Body weight 54 kg No Primary Care Physician [facility] 01-08-2024 09:57-0500 Diastolic blood pressure 77 mm[Hg] No Primary Care Physician [facility] 01-08-2024 09:57-0500 Heart rate 81 /min No Primary Care Physician [facility] 01-08-2024 09:57-0500 Respiratory rate 21 /min No Primary Care Physician [facility] 01-08-2024 09:57-0500 Systolic blood pressure 115 mm[Hg] No Primary Care Physician [facility] 01-08-2024 08:42-0500 Body mass index (BMI) [Ratio] 20 kg/m2 No Primary Care Physician [facility] 01-08-2024 08:42-0500 Body temperature 98.2 [degF] No Primary Care Physician [facility] 01-08-2024 08:42-0500 Body weight 53.07 kg No Primary Care Physician [facility] 01-08-2024 08:42-0500 SaO2% (BldA) [Mass fraction] 98 % No Primary Care Physician [facility] 12-29-2023 07:46-0500 Body mass index (BMI) [Ratio] 18.6 kg/m2 No Primary Care Physician [facility] 12-29-2023 07:46-0500 Body temperature 97.2 [degF] No Primary Care Physician [facility] 12-29-2023 07:46-0500 Body weight 50.8 kg No Primary Care Physician [facility] 12-29-2023 07:46-0500 Diastolic blood pressure 67 mm[Hg] No Primary Care Physician [facility] 12-29-2023 07:46-0500 Heart rate 66 /min No Primary Care Physician [facility] 12-29-2023 07:46-0500 Respiratory rate 20 /min No Primary Care Physician [facility] 12-29-2023 07:46-0500 SaO2% (BldA) [Mass fraction] 98 % No Primary Care Physician [facility] 12-29-2023 07:46-0500 Systolic blood pressure 124 mm[Hg] No Primary Care Physician [facility] Encounters Encounter Date Encounter Type Care Provider Facility Start: 08-11-2025 ambulatory [facility] Facility:[facility] Start: 07-27-2025 ambulatory [facility] Facility:[facility] Start: 07-26-2025 End: 07-26-[address] Ayden Bosch MD -[facility] Work Phone: Start: 07-26-2025 End: 07-26-2025 ambulatory JESUS LONDON MASTER DATA ANALYST-C Work Phone: [facility] Start: 07-26-[address] Ayden Bosch MD -[facility] Start: 07-19-[address] Ayden Bosch MD -[facility] Start: 07-19-2025 End: 07-19-2025 Patient encounter procedure Camille Jenae MASTER DATA ANALYST-C -[facility] Work Phone: Start: 07-19-2025 End: 07-19-2025 ambulatory JESUS LONDON MASTER DATA ANALYST-C Work Phone: [facility] Start: 07-05-2025 End: 07-05-2025 Patient encounter procedure Camille Jenae MASTER DATA ANALYST-C -[facility] Work Phone: Start: 07-05-2025 End: 07-05-2025 ambulatory JESUS LONDON MASTER DATA ANALYST-C Work Phone: -[facility] Start: 07-05-[address] Ayden Bosch MD -[facility] Start: 06-29-2025 End: 06-29-2025 Patient encounter procedure Camille Jenae MASTER DATA ANALYST-C -[facility] Work Phone: Start: 06-29-2025 End: 06-29-2025 ambulatory JESUS LONDON MASTER DATA ANALYST-C Work Phone: -[facility] Start: 06-29-[address] Ayden Bosch MD -[facility] Start: 06-22-2025 ambulatory JESUS LONDON Facilit y:[facility] Start: 06-14-[address] Ayden Bosch MD -[facility] Start: 06-14-2025 End: 06-14-[address] Ayden Bosch MD -[facility] Work Phone: Start: 06-14-2025 End: 06-14-2025 ambulatory JESUS LONDON MASTER DATA ANALYST-C Work Phone: -[facility] Start: 06-12-2025 End: 06-12-2025 Patient encounter procedure Camille SiomnJenae MASTER DATA ANALYST-C -[facility] Work Phone: Start: 06-12-2025 End: 06-12-2025 ambulatory JESUS LONDON MASTER DATA ANALYST-C Work Phone: -[facility] Start: 06-05-2025 ambulatory Ray Sanders [place] Start: 06-05-2025 Non-patient / Non-visit Dr. Ray Sanders MD -[facility] Start: 06-05-2025 End: 06-05-2025 Admission to same day surgery center Dr. Ray [facility] MD [facility] Start: 06-05-2025 End: 06-05-2025 ambulatory JESUS LONDON MASTER DATA ANALYST-C Work Phone: [facility] Start: 05-31-2025 End: 05-31-[address] Ray Sanders MD -[facility] Work Phone: Start: 05-31-2025 End: 05-31-2025 ambulatory JESUS LONDON MASTER DATA ANALYST-C Work Phone: -[facility] Start: 05-29-2025 End: 05-29-[address] Ayden Bosch MD -[facility] Work Phone: Start: 05-29-2025 End: 05-29-2025 ambulatory JESUS LONDON MASTER DATA ANALYST-C Work Phone: -[facility] Start: 05-01-[address] Ayden Bosch MD -[facility] Start: 05-01-2025 End: 05-01-[address] Ayden Bosch MD -[facility] Work Phone: Start: 05-01-2025 End: 05-01-2025 ambulatory JESUS LONDON MASTER DATA ANALYST-C Work Phone: [facility] Work Phone: Start: 04-25-2025 End: 04-25-2025 ambulatory JESUS LONDON MASTER DATA ANALYST-C Work Phone: [facility] Work Phone: Start: 04-25-2025 End: 04-25-2025 Patient encounter procedure Raegan Ledezma NP-C -[facility] Start: 04-25-2025 End: 04-25-2025 ambulatory JESUS LONDON Facility:[facility] Start: 04-19-2025 End: 04-19-2025 Patient encounter procedure Raegan Ledezma MASTER DATA ANALYST-C -[facility] Work Phone: Start: 04-19-2025 End: 04-19-2025 ambulatory JESUS LONDON MASTER DATA ANALYST-C Work Phone: [facility] Work Phone: Start: 04-17-2025 ambulatory JESUS CINTHIA R TARIFF PUBLISHING AGENT-ENGROSSER Facility:[facility] Start: 04-10-2025 Non-patient / Non-visit Padma richardson PA-C -[facility] Start: 04-10-2025 Non-patient / Non-visit Dr. Malcolm Rivas [facility] Work Phone: Start: 04-09-2025 Non-patient / Non-visit Dr. Chuy Covarrubias MD -[facility] Work Phone: Start: 04-09-2025 Non-patient / Non-visit Dr. Ray Sanders MD -[facility] Start: 04-08-2025 Non-patient / Non-visit Dr. Chuy Covarrubias MD -[facility] Work Phone: Start: 04-08-2025 Non-patient / Non-visit Dr. Ray Sanders MD -[facility] Start: 04-07-2025 Non-patient / Non-visit Dr. Ray Sanders MD -[facility] Start: 04-07-2025 ambulatory Michelle Do [place] Start: 04-07-2025 End: 04-10-2025 Evaluation and management of inpatient Dr. Malcolm Hanson DO -Medical Surgical 3 Work Phone: Start: 04-07-2025 End: 04-07-2025 Emergency department patient visit JESUS CALLAHAN MASTER DATA ANALYST-C Work Phone: -Emergency Department Work Phone: Start: 04-07-2025 End: 04-07-2025 ambulatory JESUS CALLAHAN MASTER DATA ANALYST-C Work Phone: [facility] Work Phone: Start: 04-07-2025 End: 04-07-2025 Patient encounter procedure Raegan Ledezma NP-C -Cat Scan [facility] Work Phone: Start: 04-07-2025 End: 04-07-2025 ambulatory Raegan Ledezma NP Facility:[facility] Start: 03-21-2025 ambulatory Malcolm Torres Facility:[facility] Start: 03-14-2025 End: 03-14-2025 Patient encounter procedure Raegan Ledezma NP-C -[facility] Work Phone: Start: 03-14-2025 End: 03-14-2025 ambulatory Raegan Ledezma MASTER DATA ANALYST [place] Start: 03-03-2025 ambulatory Raegan Ledezma MASTER DATA ANALYST Fac ility:[facility] Start: 03-03-2025 Non-patient / Non-visit Dr. Pierre sandoval DO -[facility] Start: 03-03-2025 ambulatory Lenny Golden Facility :[facility] Start: 03-02-2025 End: 03-02-2025 Patient encounter procedure Raegan Ledezma MASTER DATA ANALYST-C -Cat Scan [facility] Work Phone: Start: 03-02-2025 End: 03-02-2025 ambulatory Raegan Ledezma MASTER DATA ANALYST Facility:[facility] Start: 02-27-2025 End: 02-27-2025 ambulatory JESUS BENAVIDEZLER MASTER DATA ANALYST-C Work Phone: [facility] Work Phone: Start: 02-27-2025 End: 02-27-2025 Patient encounter procedure Raegan Ledezma MASTER DATA ANALYST-C -Pulmonary Services/Neurology Work Phone: Start: 02-27-2025 End: 02-27-2025 ambulatory Raegan Ledezma NP Facility:[facility] Start: 01-31-2025 End: 01-31-2025 Patient encounter procedure Raegan Ledezma MASTER DATA ANALYST-C -[facility] Work Phone: Start: 01-31-2025 End: 01-31-2025 ambulatory Raegan Ledezma NP Facility:[facility] Start: 01-04-2025 ambulatory Lenny Franks Facility :[facility] Start: 12-26-2024 End: 12-26-[address] Malcolm Torres MD -[facility] Work Phone: Start: 12-26-2024 End: 12-26-2024 ambulatory Malcolm Torres Facility:[facility] Start: 12-08-2024 ambulatory Malcolm Torres Facility:[facility] Start: 12-08-2024 Non-patient / Non-visit Dr. Malcolm conde MD -[facility] Start: 12-08-2024 End: 12-08-2024 Patient encounter procedure Marjorie REYNOSO -Cardiovascular Services Work Phone: Start: 12-08-2024 End: 12-08-2024 ambulatory Marjorie Garcia Facility:[facility] Start: 12-01-2024 End: 12-01-2024 Patient encounter procedure Marjorie REYNOSO -Cat Scan, H Work Phone: Start: 12-01-2024 End: 12-01-2024 ambulatory Marojrie Garcia Facility:[facility] Start: 11-11-2024 End: 11-11-2024 Patient encounter procedure Marjorie REYNOSO -[facility] Work Phone: Start: 11-11-2024 End: 11-11-2024 ambulatory Marjorie Garcia Facility:[facility] Start: 11-08-2024 Non-patient / Non-visit Dr. Cleo Ulloa MD -[facility] Work Phone: Start: 11-07-2024 ambulatory JESUS LONDON Facilit y:[facility] Start: 11-07-2024 Non-patient / Non-visit Dr. Doc STONE -[facility] Start: 11-07-2024 ambulatory JESUS LONDON Facilit y:[facility] Start: 11-07-2024 Non-patient / Non-visit Dr. Malcolm conde MD -[facility] Start: 11-07-2024 Non-patient / Non-visit Dr. Pierre sandoval DO -[facility] Start: 11-07-2024 ambulatory Goldy Smith ty:[facility] Start: 11-07-2024 End: 11-08-2024 Evaluation and management of inpatient Dr. Janak Ulloa MD -Intensive Care Unit Work Phone: Start: 09-07-2024 End: 09-08-2024 Emergency department patient visit Ministerio Mckeon Facility:[facility] Start: 06-16-2024 End: 06-20-2024 ambulatory JESUS CALLAHAN TARIFF PUBLISHING AGENT-ENGROSSER Facility:[facility] Start: 06-16-2024 End: 06-20-2024 Outreach Lab JESUS CALLAHAN TARIFF PUBLISHING AGENT-ENGROSSER [facility] Start: 01-18-2024 Non-patient / Non-visit No [facility] Physician [facility] Start: 01-15-2024 End: 01-15-2024 ambulatory No Primary Care Physician [facility] Work Phone: Start: 01-15-2024 End: 01-15-2024 Patient encounter procedure No Primary Care Physician [facility]-Pulmonary Services/Neurology Work Phone: Start: 01-09-2024 Non-patient / Non-visit No Brooke lafleur [facility] Phys[facility] Work Phone: Start: 01-09-2024 Non-patient / Non-visit No Brooke lafleur [facility] Phys[facility] Start: 01-08-2024 Non-patient / Non-visit No Brooke lafleur [facility] Phys[facility] Start: 01-08-2024 End: 01-09-2024 Evaluation and management of inpatient No Primary Care Physician [facility]-Medical Surgical 3 Work Phone: Start: 01-08-2024 End: 01-09-2024 observation encounter No Primary Care Physician [facility] Work Phone: Start: 01-08-2024 Non-patient / Non-visit No Brooke lafleur [facility] Phys[facility] Work Phone: Start: 01-08-2024 End: 01-08-2024 ambulatory No Primary Care Physician [facility] Work Phone: Start: 01-08-2024 End: 01-08-2024 Patient encounter procedure No Primary Care Physician [facility]-Cat Scan, [facility] Work Phone: Start: 01-06-2024 End: 01-06-2024 ambulatory No Primary Care Physician [facility] Work Phone: Start: 01-06-2024 End: 01-06-2024 Patient encounter procedure No Primary Care Physician [facility]-Pulmonary Services/Neurology Work Phone: Start: 12-31-2023 End: 12-31-2023 ambulatory JESUSANA BENAVIDEZLER TARIFF PUBLISHING AGENT-ENGROSSER Facility:[facility] Start: 12-29-2023 End: 12-29-2023 Patient encounter procedure No Primary Care Physician [facility]-Pulmonary Medicine [facility] Work Phone: Start: 12-16-2023 End: 12-16-2023 ambulatory JESUS LONDON TARIFF PUBLISHING AGENT-ENGROSSER Facility:[facility] Start: 12-16-2023 End: 12-16-2023 Patient encounter procedure JESUS LONDON TARIFF PUBLISHING AGENT-ENGROSSER [facility] Start: 11-27-2023 End: 11-27-2023 ambulatory JESUS LONDON TARIFF PUBLISHING AGENT-ENGROSSER Facility:[facility] Start: 11-27-2023 End: 11-27-2023 Patient encounter procedure JESUS LONDON TARIFF PUBLISHING AGENT-ENGROSSER [facility] Start: 09-23-2021 End: 09-27-2021 Outreach Lab WENDY CHRISTINA TARIFF PUBLISHING AGENT - ENGROSSER [facility] Start: 08-16-2021 End: 08-20-2021 Outreach Lab WENDY CHRISTINA TARIFF PUBLISHING AGENT - ENGROSSER [facility] Procedures Date Procedure Procedure Detail Performing Clinician Start: 07-26-2025 Estimated creatinine clearance JESUS LONDON MASTER DATA ANALYST-C Work Phone: Start: 07-26-2025 Serum inorganic phos phate measurement JESUS LONDON MASTER DATA ANALYST-C Work Phone: Start: 07-19-2025 Estimated creatinine clearance JESUS LONDON MASTER DATA ANALYST-C Work Phone: Start: 07-05-2025 Estimated creatinine clearance JESUS LONDON MASTER DATA ANALYST-C Work Phone: Start: 07-05-2025 Lymphocyte percent differential count JESUS LONDON MASTER DATA ANALYST-C Work Phone: Start: 07-05-2025 Serum inorganic phos phate measurement JESUS LONDON MASTER DATA ANALYST-C Work Phone: Start: 06-29-2025 Estimated creatinine clearance JESUS LONDON MASTER DATA ANALYST-C Work Phone: Start: 06-14-2025 Estimated creatinine clearance JESUS LONDON MASTER DATA ANALYST-C Work Phone: Start: 06-14-2025 Serum inorganic phos phate measurement JESUS LONDON MASTER DATA ANALYST-C Work Phone: Start: 06-05-2025 Plain chest X-ray JESUS LONDON MASTER DATA ANALYST-C Work Phone: Start: 06-05-2025 Implantation to cardiovascular system JESUS LONDON MASTER DATA ANALYST-C Work Phone: Start: 06-05-2025 Fluoroscopic guidance J ARED LONDON MASTER DATA ANALYST-C Work Phone: Start: 04-25-2025 Positron emission tomography with computed tomography JESUS LONDON MASTER DATA ANALYST-C Work Phone: Start: 04-10-2025 X-ray of chest, PA a nd lateral views JESUS LONDON MASTER DATA ANALYST-C Work Phone: Start: 04-10-2025 X-ray of chest, PA a nd lateral views JESUS LONDON MASTER DATA ANALYST-C Work Phone: Start: 04-09-2025 X-ray of chest, PA a nd lateral views JESUS LONDON MASTER DATA ANALYST-C Work Phone: Start: 04-08-2025 X-ray of chest, PA a nd lateral views JESUS LONDON [employer] DATA ANALY[employer] Work Phone: Start: 04-08-2025 Estimated creatinine clearance JESUS L[employer]ON [employer] DATA A[employer]LYST[employer]C Work Phone: Start: 04-07-2025 Plain chest X-ray JSEUS LONDON [employer] DATA ANALYST[employer]C Work Phone: Start: 04-07-2025 Estimated creatinine clearance JESUS LONDON [employer] DATA ANALYST-C Work Phone: Start: 04-07-2025 Plain chest X-ray JESUS LONDON MA[employer] DATA ANALYST-C Work Phone: Start: 04-07-2025 Biopsy/Inj or Needle Placement JESUS LONDON [employer] DATA ANALYST-C Work Phone: Start: 03-02-2025 CT of thorax with contrast JESUS LONDON MA[employer] DATA ANALYST-C Work Phone: Start: 12-01-2024 CT angiography of he ad and neck JESUS LONDON MASTER DATA ANALYST-C Work Phone: Start: 11-07-2024 CT of chest without contrast JESUS LONDON MASTER DATA ANALYST-C Work Phone: Start: 11-06-2024 CT of head without contrast JESUS LONDON MASTER DATA ANALYST-C Work Phone: Start: 11-06-2024 SARS-CoV-2, Influenz a & RSV (PCR) JESUS LONDON MASTER DATA ANALYST-C Work Phone: Start: 01-15-2024 Plain chest X-ray No Pr imary Care Physician Start: 01-09-2024 Plain chest X-ray No Pr imary Care Physician Start: 01-09-2024 Plain chest X-ray No Pr imary Care Physician Start: 01-09-2024 Plain chest X-ray No Pr imary Care Physician Start: 01-08-2024 Plain chest X-ray No Pr imary Care Physician Start: 01-08-2024 Plain chest X-ray No Pr imary Care Physician Start: 01-08-2024 Biopsy/Inj or Needle Placement No Primary Care Physician Start: 11-09-2019 Colonoscopy JESUSANA PENAGORDO TARIFF PUBLISHING AGENT-ENGROSSER Start: 11-09-1984 Vasectomy JESUS CARMEN ETLER TARIFF PUBLISHING AGENT-ENGROSSER Plan of Treatment Date Care Activity Detail Author Start: 07-26-2025 [facility] Start: 07-19-2025 [facility] Start: 07-05-2025 [facility] Start: 06-29-2025 [facility] Start: 06-14-2025 [facility] Start: 06-14-2025 Venous catheter care management [facility] Start: 06-05-2025 Patient discharge [facility] Start: 06-05-2025 Anesthesia access central venous circulation ANESTH VASCULAR ACCESS [facility] Start: 06-05-2025 Insj tunneled ctr vad w/subq port age 5 yr/> INSERT TUNNELED CV CATH [facility] Start: 04-19-2025 Patient referral [facility] Work Phone: Start: 04-19-2025 Positron emission tomography with computed tomography [facility] Start: 04-10-2025 Patient discharge [facility] Start: 04-08-2025 Oxygen therapy [facility] Start: 04-08-2025 Drainage tube care management [facility] Start: 04-07-2025 Assessment of risk of venous thromboembolism [facility] Start: 04-07-2025 Insertion of catheter into peripheral vein [facility] Start: 04-07-2025 Providing care according to standard [facility] Start: 04-07-2025 Provision of activity privileges [facility] Start: 04-07-2025 Referral for physical therapy [facility] Start: 04-07-2025 Referral to general surgeon [facility] Start: 04-07-2025 Referral to occupational therapist [facility] Start: 04-07-2025 Referral to service [facility] Start: 04-07-2025 [facility] Start: 04-07-2025 Following clinical pathway protocol [facility] Start: 04-07-2025 CORE NDL BX LNG/MED PERQ CORE NDL BX LNG/MED PERQ [facility] Start: 04-07-2025 Admission procedure [facility] Start: 04-07-2025 Hospital admission, emergency, from emergency room, medical nature [facility] Start: 04-07-2025 [facility] Start: 04-07-2025 Following clinical pathway protocol [facility] Start: 04-07-2025 Catheterization of vein [facility] Start: 04-07-2025 Oxygen therapy [facility] Start: 04-07-2025 Patient discharge [facility] Start: 04-07-2025 Vital signs measurements [facility] Start: 03-02-2025 Walking distance 6 minutes [facility] Start: 11-11-2024 Patient referral [facility] Work Phone: Start: 11-08-2024 Patient discharge [facility] Start: 11-07-2024 Care planning and problem solving actions [facility] Start: 11-07-2024 Following clinical pathway protocol [facility] Start: 11-07-2024 Assessment of risk of venous thromboembolism [facility] Start: 11-07-2024 Bedrest [facility] Start: 11-07-2024 Continuous pulse oximetry [facility] Start: 11-07-2024 Elevation of head of bed [facility] Start: 11-07-2024 Incentive spirometry [facility] Start: 11-07-2024 Insertion of catheter into peripheral vein [facility] Start: 11-07-2024 Measuring intake and output [facility] Start: 11-07-2024 Oxygen therapy [facility] Start: 11-07-2024 Providing care according to standard [facility] Start: 11-07-2024 Referral to occupational therapist [facility] Start: 11-07-2024 Referral to service [facility] Start: 11-07-2024 Seizure precautions [facility] Start: 11-07-2024 Tobacco use cessation education [facility] Start: 11-07-2024 Vital signs measurements [facility] Start: 11-07-2024 [facility] Start: 11-07-2024 Admission procedure [facility] Start: 11-07-2024 Patient referral to dietitian [facility] Start: 01-09-2024 Patient discharge [facility] Start: 01-09-2024 Plain chest X-ray Chest 1 View (Portable) [facility] Start: 01-09-2024 XR Chest Single view [facility] Start: 01-08-2024 [facility] Start: 01-08-2024 CORE NDL BX LNG/MED PERQ CORE NDL BX LNG/MED PERQ [facility] Start: 01-08-2024 Tube thoracostomy includes water seal INSERTION OF CHEST TUBE [facility] Start: 01-08-2024 Following clinical pathway protocol [facility] Start: 01-08-2024 Ambulation without limitation [facility] Start: 01-08-2024 Assessment of risk of venous thromboembolism [facility] Start: 01-08-2024 Catheterization of vein [facility] Start: 01-08-2024 Chart related administrative procedure [facility] Start: 01-08-2024 Incentive spirometry [facility] Start: 01-08-2024 Inhalation therapy procedure [facility] Start: 01-08-2024 Insertion of catheter into peripheral vein [facility] Start: 01-08-2024 Oxygen therapy [facility] Start: 01-08-2024 Providing care according to standard [facility] Start: 01-08-2024 Referral to general surgeon [facility] Start: 01-08-2024 Referral to service [facility] Start: 01-08-2024 [facility] Start: 01-08-2024 Verification routine [facility] Start: 01-08-2024 Admission procedure [facility] Start: 01-08-2024 Following clinical pathway protocol [facility] Start: 01-08-2024 Catheterization of vein [facility] Start: 01-08-2024 Oxygen therapy [facility] Start: 01-08-2024 Patient discharge [facility] Start: 01-08-2024 Vital signs measurements [facility] Cholesterol [Mass/vo lume] in Serum or Plasma [facility] Cholesterol in HDL [Mass/volume] in Serum or Plasma [facility] Cholesterol in LDL [Mass/volume] in Serum or Plasma [facility] CT Chest and Abdomen W contrast IV [facility] CT Chest W contrast IV [facility] CT Chest W contrast IV [facility] Exercise tolerance test [facility] Patient Education RAD RN Dischar ge Instructions Needle Biopsy: Lung RAD RN Procedural Sedation [facility] Work Phone: Patient referral [facility] Work Phone: Triglycerides measurement [facility] VLDL cholesterol measurement [facility] XR Chest PA and Lateral [facility] Immunizations Immunization Date Immunization Notes Care Provider Ivonne grullon 05-16-2016 pneumococcal polysaccharide vaccine, 23 valent WENDY CHRISTINA TARIFF PUBLISHING AGENT - ENGROSSER [facility] 05-16-2016 tetanus toxoid, redu angela diphtheria toxoid, and acellular pertussis vaccine, adsorbed WENDY CHRISTINA TARIFF PUBLISHING AGENT - ENGROSSER [facility] Payers Date Payer Category Payer Unknown [id number] 2024 Self-pay 2023 Medicare [id number] 1955 Unknown [id number] 2.16.8 40.1.017409.3.579.2.627 1955 Unknown [id number] .16.8 40.1.824917.3.579.2.62 1955 Unknown [id number] .16.8 40.1.410669.3.579.2.627 1955 Unknown [id number] .16.8 40.1.573919.3.579.2.627 1955 Unknown [id number] .16. 840.1.174683.3.579.2.627 Unknown [id number] Unknown [id number] 2.16.8 40.1.071597.3.579.2.462 Unknown [id number] 2.16.8 40.1.179428.3.579.2.462 Unknown [id number] 2.16.8 40.1.035605.3.579.2.462 Unknown [id number] 2.16.8 40.1.966180.3.579.2.462 Unknown [id number] 2.16.8 40.1.628454.3.579.2.462 Unknown [id number] 2.16.8 40.1.203218.3.579.2.462 Unknown [id number] 2.16.8 40.1.296495.3.579.2.462 Unknown [id number] 2.16.8 40.1.928378.3.579.2.462 Unknown [id number] 2.16.8 40.1.728730.3.579.2.462 Unknown [id number] 2.16.8 40.1.088434.3.579.2.462 Unknown [id number] 2.16.8 40.1.348895.3.579.2.462 Unknown [id number] 2.16.8 40.1.856570.3.579.2.462 Unknown [id number] 2.16.8 40.1.012910.3.579.2.462 Unknown [id number] 2.16.8 40.1.654159.3.579.2.462 Unknown [id number] 2.16.8 40.1.192156.3.579.2.462 Unknown [id number] 2.16.8 40.1.512789.3.579.2.462 Unknown [id number] 2.16.8 40.1.892646.3.579.2.462 Unknown [id number] 2.16.8 40.1.950876.3.579.2.462 Unknown [id number] 2.16.8 40.1.750567.3.579.2.462 Unknown [id number] 2.16.8 40.1.605432.3.579.2.462 Unknown [id number] 2.16.8 40.1.582026.3.579.2.462 Unknown [id number] 2.16.8 40.1.290228.3.579.2.462 Unknown [id number] 2.16.8 40.1.810879.3.579.2.462 Unknown [id number] 2.16.8 40.1.966155.3.579.2.462 Unknown [id number] 2.16.8 40.1.948635.3.579.2.462 Unknown [id number] 2.16.8 40.1.673814.3.579.2.462 Unknown [id number] 2.16.8 40.1.782323.3.579.2.462 Unknown [id number] 2.16.8 40.1.840648.3.579.2.462 Unknown [id number] 2.16.8 40.1.351777.3.579.2.462 Unknown [id number] 2.16.8 40.1.499884.3.579.2.462 Unknown [id number] 2.16.8 40.1.460537.3.579.2.462 Unknown [id number] 2.16.8 40.1.114633.3.579.2.462 Unknown [id number] 2.16.8 40.1.018498.3.579.2.462 Unknown [id number] 2.16.8 40.1.616564.3.579.2.462 Unknown [id number] 2.16.8 40.1.211193.3.579.2.462 Unknown [id number] 2.16.8 40.1.601259.3.579.2.462 Unknown [id number] 2.16.8 40.1.550050.3.579.2.462 Unknown [id number] 2.16.8 40.1.288060.3.579.2.462 Unknown [id number] 2.16.8 40.1.324284.3.579.2.462 Unknown [id number] 2.16.8 40.1.062314.3.579.2.462 Unknown [id number] 2.16.8 40.1.688267.3.579.2.462 Unknown [id number] 2.16.8 40.1.308678.3.579.2.462 Unknown [id number] 2.16.8 40.1.222834.3.579.2.462 Unknown [id number] 2.16.8 40.1.881292.3.579.2.462 Unknown [id number] 2.16.8 40.1.486863.3.579.2.462 Unknown [id number] 2.16.8 40.1.297964.3.579.2.462 Unknown [id number] 2.16.8 40.1.546318.3.579.2.462 Social History Date Type Detail Facility Start: 03-07-2021 End: 12-26-2024 Heavy tobacco smoker (finding) [facility] Sex Assigned At [facility] Start: 01-08-2024 End: 01-08-2024 Tobacco smoking status NHIS Unknown if ever smoked [facility] Start: 1955 Sex Assigned At Male [facility] Start: 03-02-2025 Sex Male (finding) [facility] Start: 04-07-2025 End: 06-02-2025 Tobacco smoking status NHIS Smokes tobacco daily (finding) [facility] Sex Male [facility] Medical Equipment Procedure Code Equipment Code Equipment Origin al Text Equipment Identifier Dates Insertion, vascular access port ([id number]) Vascular port/catheter ([id number] [facility] Start: 06-05-2025 Goals Date Patient Goal Desired Activity /State Functional Status Date Assessment Result Facility 04-10-2025 Functional status Ambulates;Up ad lloyd;Gypsy ir [facility] Work Phone: 04-07-2025 Functional status Ambulates [facility] Work Phone: 11-08-2024 Functional status Chair [facility] Work Phone: 01-09-2024 Functional status Up ad lloyd [facility] Work Phone: 01-08-2024 Functional status Patient Activity Ambula collin [facility] Work Phone: Mental Status Date Assessment Result Facility 06-12-2025 Cognitive function Voice/Name [facility] Work Phone: 06-05-2025 Cognitive function Voice/Name [facility] Work Phone: 04-10-2025 Cognitive function Demonstrates ability to follow instructions/comprehend [facility] Work Phone: 04-10-2025 Cognitive function Voice/Name [facility] Work Phone: 04-07-2025 Cognitive function Follows Commands;Restl ess [facility] Work Phone: 11-07-2024 Cognitive function Voice/Name [facility] Work Phone: 01-09-2024 Cognitive function Voice/Name [facility] Work Phone: 01-08-2024 Cognitive function Awake;Alert;A ppropriate;Foll ows Commands [facility] Work Phone: Clinical Notes 01-08-2024 to 06-14-2025 Note Date & Type Note Facility 06-14-2025 Progress note [facility] 06-14-2025 Progress note Note Date/Time June 14, 2025 9:16am [facility] [address] [address] OFFICE VISIT Date of Service: 06/14/25 0836 MR#: [id number] Acct: [id number] Name: MCKENNAPATRICK Archibald Jr. Rep #: [id number] : 1955 From: Ayden Bosch MD Age/Sex: 70/M Location: [facility] [place] Status: Signed HPI Subjective Date of Service 06/14/25 Chief Complaint F/u Immunotherapy/Chemotherapy-carboplatin pemetrexed, pembrolizumab History of Present Illness 70y.o.man is referred for further management of non-small cell lung cancer?adenocarcinoma type. He had a CT scan of the chest on 03/02/2025 which showed 2 centimeter left upper lobe nodule, 6 mm left lower lobe nodule, 2.5 cm left lower lobe nodule. Had a CT-guided biopsy of left lower lobe nodule on 04/07/2025 pathology showed adenocarcinoma. PET/CT on 04/25/2025 showed bilateral lung nodules, bilateral lateral hilar nodes. Stage IV (T4 N3 M1 R lung nodule) PDL1 11%, EGFR, ALK, BRAF, Her2, STEVE, ROS1, MET, RET are negative. Comes for follow up to start therapy. Feels well. PENDING SALE TO [facility] Medical History Encounter for education Wears glasses Wears dentures Cancer Shortness of breath on exertion Leg cramps Blackout Hypertension History of echocardiogram Mediastinal lymphadenopathy BPH without urinary obstruction COPD (chronic obstructive pulmonary disease) Stenosis of right internal carotid artery Chronic alcohol abuse Hypokalemia Orthostatic hypotension Syncope and collapse Hyponatremia Vision loss of left eye Smoker Mass of left lung Hypertension Pulmonary nodules Nicotine dependence, cigarettes, uncomplicated Surgical History History of lung biopsy History of colonoscopy H/O vasectomy Family History Father Cancer Mother Diabetes Social History household members: family housing: house current occupational status: retired Smoking Status: Current every day smoker tobacco type: cigarettes alcohol intake: current alcohol intake frequency: 3 or more drinks per day Alcohol type: beer details: up to 12 beers daily substance use type: does not use caffeine: Yes ROS Constitutional Constitutional: Reports systems reviewed and no addt'l complaints, except as documented Eyes Eyes: Reports systems reviewed and no addt'l complaints, except as documented ENT HEENT: Reports systems reviewed and no addt'l complaints, except as documented Cardiovascular Cardiovascular: Reports systems reviewed and no addt'l complaints, except as documented Respiratory/Chest Respiratory/Chest: Reports systems reviewed and no addt'l complaints, except as documented Gastrointestinal Gastrointestinal: Reports systems reviewed and no addt'l complaints, except as documented Genitourinary Genitourinary: Reports systems reviewed and no addt'l complaints, except as documented Musculoskeletal Musculoskeletal: Reports systems reviewed and no addt'l complaints, except as documented Integumentary Integumentary: Reports systems reviewed and no addt'l complaints, except as documented Neurologic Neurologic: Reports systems reviewed and no addt'l complaints, except as documented Psychiatric Psychiatric: Reports systems reviewed and no addt'l complaints, except as documented Endocrine Endocrinology: Reports systems reviewed and no addt'l complaints, except as documented Hematologic/Lymphatic Hematologic/Lymphatic: Reports systems reviewed and no addt'l complaints, exceptas documented Allergic/Immunologic Allergic/Immunologic: Reports systems reviewed and no addt'l complaints, except as documented Intake Vital Signs 05/29/25 10:38 06/14/25 08:38 Height 5 ft 4 in 5 ft 4 in Weight: 48.279 kg BMI 18.2 BP 146/81 H Blood Pressure Location Lt brachial Position Sitting Respiration 18 Pulse 61 Pulse Source Monitor Temp 98.2 F Temperature Source Temporal Artery Pulse Oximetry (%) 97 Oxygen Delivery Method room air Intake Is patient in pain?: No Allergies hydrochlorothiazide Adverse Reaction (Verified 06/14/25 08:45) hyponatremia Medications ?Medication ?Instructions ?Recorded ?Confirmed ?Type tamsulosin 0.4 mg capsule 0.4 mg PO QHS 12/29/2306/14 History albuterol sulfate 90 mcg/actuation 1 puff inhalation Q 4H PRN 12/09/24 06/14/25 History aerosol inhaler hydroxyzine HCl 50 mg tablet 50 mg PO QHS 12/26/2405/03 History aspirin 81 mg tablet,delayed 81 mg PO DAILY 04/07/25 0 06/14/25 History release (Adult Low Dose Aspirin) glycopyrrolate 9 mcg-formoterol 2 puff inhalation Q12H 04/07/25 06/14/25 History 4.8 mcg HFA aerosol inhaler (Bevespi Aerosphere) polymyxin B sulfate 10,000 1 drp ophthalmic (eye) DANDRE Y 04/19/25 06/14/25 History unit-trimethoprim 1 mg/mL eye drops oxycodone 5 mg tablet 5 mg PO Q8H PRN pain 3 days #7 tabs 06/05/25 06/14/25 Rx Keytruda 200 mg IV Q21D #8 mL 5 06/14/25 Rx dexamethasone 4 mg tablet 4 mg PO .COMPLEX #6 tabs 03/0306/14/25 Rx folic acid 1 mg tablet 1 mg PO QDAY #90 tabs 06/14/25 Rx lidocaine-prilocaine 2.5 %-2.5 % 1 applic topical ONCE PRN port 06/12/25 06/14/25 Rx topical cream cream 30 days #30 grams ondansetron 8 mg disintegrating 8 mg PO Q8H PRN nausea and 06/12/25 06/14/25 Rx tablet vomiting #30 tabs Have you fallen in the past year?: Yes Central Venous Access Central Venous Access: Yes Port/PICC: Port Exam Physical Exam Narrative Elderly man PS 0. Const alert, oriented x3 and no apparent distress HEENT normocephalic Eyes Eyes Narrative: +Ectropion L lower eye Chest Chest Narrative: +Port L IC area. Chest: vascular access Cardio regular rate, regular rhythm, S1 normal heart sound and S2 normal heart sound GI normal to inspection, nondistended, normoactive bowel sounds Back/Spine thoracic and lumbar spine normal to inspection Extremity no clubbing, cyanosis or edema Skin Skin Narrative: Tanned Neuro oriented x3, CN's II-XII intact bilaterally and moves all extremities Psych mental status grossly normal Attitude: calm and engaged Memory / Cognition: memory grossly intact and cognition grossly intact Coding Level of Care Code Off vis,est,level 5 Exam Problem Focused Diagnoses 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 C34.32 Chemotherapy management, encounter for Z51.11 Immunotherapy encounter Z29.89 Assessment and Plan Assessment and Plan (1) 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 PDL1 11%, EGFR, ALK, BRAF, Her2, STEVE, ROS1, MET, RET are negative. PET/CT on 04/25/2025 shows bilateral lung nodules, bilateral lateral hilar nodes. Comes to start Keytruda, Alimta, Carboplatin. Counts and chemistry reviewed, OK for therapy. Plan: To proceed with C1 Alimta/Carboplatin and Keytruda. (2) Chemotherapy management, encounter for: Status: Acute Comment: Counts and chemistry reviewed, Ok for therapy. Plan: To proceed with C1 Alimta and Carboplatin. RTC 2 weeks for Toxicity check. (3) Immunotherapy encounter: Status: Acute Comment: Counts and chemistry reviewed, Ok for therapy. Plan: To proceed with C1 Keytruda. Orders: Orders CBC W/Diff, Automated Today C34.32 - Malignant neoplasm of lower lobe, left bronchus or lung Comprehensive Metabolic Profil Today C34.32 - Malignant neoplasm of lower lobe,left bronchus or lung Plan Details Follow Up: 2 Weeks Clinical Quality Measures Falls Risk Screening/Assistive Devices Have you fallen in the past year?: Yes 06/14/25 0916 <Electronically signed by Ayden Galan> Date _ Ayden Bosch MD Cosigner Signature: Date (if applicable) CC: FRIEDA CALLAHAN ~ [place] [employer] Work Phone: 1(316) 336-307107-28-2025 Consult note [facility] Medical Records Department [address] [place] [id number] Anesthesia Postop Eval II 06/05/25 1625 MR#: [id number] Acct: [id number] Name: MCKENNAPATRICK Jr. Rep #:[id number] : 1955 70 From: Gavin Hill MD PCP: FRIEDA KEARNEY Status:[facility] [place] Race: C Location: [place] [address] Anesthesia Postop Eval I Sum Postop Eval Completion status Anesthesia document: Postop Eval 1 completed: Yes Anesthesia Postop Eval I Summary Anesthesia Postop Eval I Summary: Anesthesia Postop Eval I: Assessment Summary Airway patent Yes 06/05/25 14:58 [employer] Spontaneous unlabored Yes 06/05/25 14:58 [employer] respirations Mental status Awake,Calm 06/05/25 14:58 [employer] nausea No 06/05/25 14:58 [employer] Vomiting No 06/05/25 14:58 [facility]ERY [employer] Anesthesia Postop Eval I: Fluid Summary Crystalloid volume administer 500 06/05/25 14:58 [employer] (ml) Colloids volume administered ( ml) Blood Product volume administered (ml) Total IV fluid infused 500 06/05/25 14:58 [employer] Anesthesia Postop Eval I: Summary Notes Anesthesia Complication No 06/05/25 14:58 [employer] Anesthesia Complication Comment: Post-operative progress note Anesthesia: Postop Eval II Evaluation Mental status: Awake Pain Level: 0 nausea: No Vomiting: No 06/05/25 1625 > Date _ Gavin Dangeloignjosef Signature: Date CC: ~ Signed [facility]07-28-2025 History and physical note Author Ray Sanders [facility] Note Date/Time June 05, 2025 1:40 pm [facility] Medical Records Department [address] [place] [address] History & Physical Exam 06/05/25 1338 MR#: [id number] Acct: [id number] Name: PATRICK ANDRES JrQuan Rep #:[id number] : 1955 70 From: Ray Sanders MD PCP: FRIEDA KEARNEY Status:[facility] Location: [place] [address] HPI - General General Date of Service: 06/05/25 Chief Complaint: Mediport placement HPI Narrative PATRICK ANDRES, is a 70 M who presents for elective Mediport placement for chemotherapy as treatment for lung cancer PENDING SALE TO [facility] Medical History Wears glasses Wears dentures Cancer Shortness of breath on exertion Leg cramps Blackout Hypertension History of echocardiogram Mediastinal lymphadenopathy BPH without urinary obstruction COPD (chronic obstructive pulmonary disease) Stenosis of right internal carotid artery Chronic alcohol abuse Hypokalemia Orthostatic hypotension Syncope and collapse Hyponatremia Vision loss of left eye Smoker Mass of left lung Hypertension Pulmonary nodules Nicotine dependence, cigarettes, uncomplicated Home Medications ?Medication ?Instructions ?Recorded ?Last Taken ?Type tamsulosin 0.4 mg capsule 0.4 mg PO QHS 12/29/2306/05 History albuterol sulfate 90 mcg/actuation 1 puff inhalation Q 4H PRN 12/09/24 06/04/25 History aerosol inhaler hydroxyzine HCl 50 mg tablet 50 mg PO QHS 12/26/24 History aspirin 81 mg tablet,delayed 81 mg PO DAILY 04/07/25 0 06/05/25 History release (Adult Low Dose Aspirin) glycopyrrolate 9 mcg-formoterol 2 puff inhalation Q12H 04/07/25 06/04/25 History 4.8 mcg HFA aerosol inhaler (Bevespi Aerosphere) polymyxin B sulfate 10,000 1 drp ophthalmic (eye) DANDRE Y 04/19/25 06/04/25 History unit-trimethoprim 1 mg/mL eye drops Allergy/AdvReac Type Severity Reaction Status Date / Time hydrochlorothiazide AdvReac hyponatremi Verified 06/05/25 12:27 a Family History Father Cancer Mother Diabetes Surgical History History of lung biopsy History of colonoscopy H/O vasectomy Social History household members: family housing: house current occupational status: retired Smoking Status: Current every day smoker tobacco type: cigarettes alcohol intake: current alcohol intake frequency: 3 or more drinks per day Alcohol type: beer details: up to 12 beers daily substance use type: does not use caffeine: Yes Vital Signs Vital Signs Vital Signs: 06/05/25 12:28 06/05/25 12:28 06/05/25 12:38 Temperature 98.9 F 98.9 F Temperature Source Temporal Pulse Rate 78 78 Respiratory Rate 14 14 Respiratory Pattern Normal Blood Pressure 143/75 H 143/75 H Blood Pressure Mean 97 Blood Pressure Source Monitor Blood Pressure Position Semi-Fowlers Blood Pressure Location Left Arm Pulse Ox 100 100 Oxygen Delivery Method Room Air Weight Weight: 103 lb 9.876 oz Body Mass Index (BMI) 17.7 Physical Exam Const alert, oriented x3 and no apparent distress Assessment & Plan Assessment/Plan (1) 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 06/05/25 1340 <Electronically signed by Ray Sanders MD> Cosigner Signature (if applicable): CC: FRIEDA CALLAHAN; Dr. Ray Sanders MD~ Signed [facility] Work Phone: 1(367) 703-418607-28-2025 Radiology Diagnostic study note [facility] Imaging Services [address] [place] [address] CXR for Line Placement MR#: [id number] Acct: [id number] Name: PATRICK ANDRES Jr. Rep #: [id number] : 1955 M 70 From: Alirio Kaplan MD PCP: FRIEDA KEARNEY [place] [facility] Study:CXR for Line Placement Date of Exam: 06/05/25 Exam# [id number] Ordering Dr: St esther Sanders MD PROCEDURE: CXR FOR LINE PLACEMENT 06/05/2025 REASON FOR EXAM: NEW PORT PLACEMENT TECHNIQUE: AP portable upright chest COMPARISON: Chest x-ray 04/10/2025. RAD/CXR for Line Placement IMPRESSION: Chronic lung changes and hyperinflation are again seen, but no new or worsened pneumonic process isidentified. No pleural effusion or pneumothorax is seen. A left subclavian central venous catheter with port is seen, tip projecting of the SVC. The cardiomediastinal silhouette is stable, without evidence of cardiomegaly. No interval osseous change is seen. Reading Location: [place] [address] CC: FRIEDA CALLAHAN; Dr. Ray Sanders MD ~ Electronics Lead: Signed [facility]07-28-2025 Procedure note [facility] Medical Records Department [address] [place] [address] Operative Report 06/05/25 1502 MR#: [id number] Acct: [id number] Name: PATRICK ANDRES Jr. Rep #:[id number] : 1955 70 From: Ray Sanders MD PCP: FRIEDA KEARNEY [place] Location: [place] [address] 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: Procedures Cardiovascular CF Procedures [id number]: [id number] Insert tunneled cv cath Operative Report (Standard) Operative Information Date of Procedure: 06/05/25 Pre-Operative Diagnosis: Lung cancer Post-Operative Diagnosis: Same Surgery/Procedure Performed: Left subclavian Mediport placement procedure household cook: No Type of Anesthesia: Local and MAC RN Documented Start/Stop Times: Operation Date: 06/05/25 13:45 Case Time Into Pre-Op 06/05/25 12:10 Out of Pre-Op 06/05/25 14:05 Anesthesia Start 06/05/25 14:08 Into Room 06/05/25 14:08 Procedure Start 06/05/25 14:24 Procedure End 06/05/25 14:49 Anesthesia End 06/05/25 14:53 Out of Room 06/05/25 14:53 Procedure Start Time: 14:24 Procedure Stop Time: 14:49 Select all DRAINS/GRAFTS/IMPLANTS that apply: Prosthetic device Prosthetic device details: PowerPort injectable port Special Medications: 2 g Ancef IV Estimated Blood Loss: 5 mL Specimen collected: No Description of surgery: The patient is a 70-year-old male who is recently seen through the office with lung cancer in need of a Mediport placement. I did seen him within the past year on the hospital side for pneumothorax following a lung biopsy. I offered him a left subclavian Mediport placement with C arm. We discussed the details of the planned procedure including the risks benefits and alternatives. He wished to proceed. He was brought to the operating room today following informed consent. Preoperative antibiotics were given and a timeout was performed. The patient was placed supine on the operative table with arms comfortably tucked at his side. An axillary roll was placed between his shoulder blades. The left upper chest region was then prepped and draped in the usual sterile manner. Local anesthetic was infiltrated into the left periclavicular area. Next using the supplied needle and syringe, I was able to gain access to the left subclavian vein on the first pass. Blood return was a dark red venous appearing blood return. Guidewire was threaded through the aperture of the needle and secured to the drapes using a hemostat. C arm was then used to confirm good positioningof the guidewire and the right side of the heart. Next a marking pen was then used to indicate the site of the planned port pocket incision. Local anestheticwas then injected. #15 blade was then used to make the skin incision as wellasa smaller incision at the entry point of the guidewire. Bovie electrocautery was then used to dissect down through subcutaneous tissues down to the chest wall once at this level a subcutaneous pocket was then created. The tubing was then attached to the tunneling device and the tubing was tunneled into the larger incision and up and out through the smaller incision. Tubing was then trimmed to 22 cm and attached to the port itself. The port hub was then affixedto the chest wall using Prolene suture x 2. The dilator and tear-away sheath were then threaded over the guidewire and confirmed withx-ray. The dilator wasthen removed thus leaving the sheath in place. The free end of the tubing wasthen threaded down the sheath and the sheath was extracted. The port was then tested with heparin flush. It rod and flushed easily. C-arm was again used toconfirm good position of the port tubing tip. Heparin flush was then injected into the port. Incision was then closed using 3-0 Vicryl and 4-0 Vicryl. Skin glue was applied as dressing along with sterile 2 by twos and a large OpSite. He was then awakened from anesthesia and taken recovery in good condition. Surgical Findings: See operative note Complications Complications: No 06/05/25 1510 Cosigner Signature (if applicable): CC: FRIEDA CALLAHAN; Dr. Ray Sanders MD~ Signed [facility]07-28-2025 Discharge summary [facility] Medical Records Department [address] [place] [address] Instructions for Home/Discharge Instructions 06/05/25 1457 MR#: [id number] Acct: [id number] Name: MCKENNASOUMYA Jr. Rep #:[id number] : 1955 70 From: Ray Sanders MD PCP: FRIEDA KEARNEY Status[place] [place] Discharge Instructions Diet Discharge Diet: Light diet - advance as tolerated Activity Discharge Activity: Return to Normal Activity May shower in (days): 1 Ice area for (Minutes): 30 Dressing / Incision Call your doctor if your incision/area has: Continuous Slow Oozing, Sudden Increased Bleeding, Increased Pain/ Swelling, Increased Redness, Foul Smelling Discharge and Swelling at the incision site Call your doctor if you observe: Fever of 101 or Higher Remove Dressing in: 3 days Cleanse incision/area with: Soap & Water Follow Up Care Please Follow Up With: Ray Sanders MD When: as needed Test Results: Test results from this visit will be discussed in further detail at your follow- up appointment, if applicable. Discharge Plan Admission Primary Reason for Your Visit: Mediport insertion Attending Provider: Ray Sanders Primary Care Provider: JESUS CALLAHAN Instructions Print Language: Bulgarian Discharge Orders/Prescriptions Prescriptions: New oxycodone 5 mg tablet 5 mg PO Q8H PRN (Reason: pain) 3 Days Qty: 7 0RF Continued tamsulosin 0.4 mg capsule 0.4 mg PO QHS albuterol sulfate 90 mcg/actuation HFA aerosol inhaler 1 puff inhalation Q4H PRN hydroxyzine HCl 50 mg tablet 50 mg PO QHS polymyxin B sulf-trimethoprim 10,000 unit- 1 mg/mL drops 1 drp ophthalmic (eye) DAILY aspirin [Adult Low Dose Aspirin] 81 mg tablet,delayed release (DR/EC) 81 mg PO DAILY Bevespi Aerosphere 9-4.8 mcg HFA aerosol inhaler 2 puff inhalation Q12H Referrals / Follow Up: JESUS CALLAHAN NP-C [Primary Care Provider] - Disposition Disposition (needs filled in before D/C Order can be placed): Home, Self Care 06/05/25 1502Stecasper Sanders MD CC: MASTER DATA ANALYST-C JESUS CALLAHAN ~ Signed [facility]07-28-2025 Consult note [facility] Medical Records Department [address] [place] [address] Anesthesia Postop Eval I 06/05/25 1457 MR#: [id number] Acct: [id number] Name: PATRICK ANDRES Jr. Rep #:[id number] : 1955 70 From: Adelaida Hou CRNA PCP: FRIEDA KEARNEY Status:REG [facility] Y Race: C Location: [place] [address] Anesthesia: Postop Eval I Current Vital Signs Temperature: 97.8 F Pulse Rate: 77 Blood Pressure: 109/73 Respiratory Rate: 16 Pulse Ox: 97 Oxygen Delivery Method: Room Air Assessment Airway patent: Yes Spontaneous unlabored respirations: Yes Mental status: Awake and Calm nausea: No Vomiting: No Anesthesia Complication: No Fluid Hydration Crystalloid volume administer (ml): 500 Total IV fluid infused: 500 Progress Note Anesthesia document: Postop Eval 1 completed: Yes 06/05/[address] [employer]> Date _ Adelaida DeForeest [employer] Cosigner Signature: Date CC: ~ Signed [facility]07-28-2025 Consult note Author Gavin Hill [facility] Note Date/Time June 05, 2025 12:3 8pm [facility] Medical Records Department [address] [place] [address] Pre-Anesthesia Evaluation 06/05/25 1237 MR#: [id number] Acct: [id number] Name: PATRICK ANDRES Jr. Rep #:[id number] : 1955 70 From: Gavin Hill MD PCP: FRIEDA KEARNEY Status:REG SD Y Race: C Location: [place] [address] ASA Classification* ASA Classification ASA Classification: 3 Assessment & Plan Anesthesia* Anesthesia Assessment Anesthesia Assessment: Discussed sedation and/or anesthesia options, risks, benefits, and alternatives with patient/parents/legal guardian/POA. Questions invited. The patient/parents/legal guardian/POA seems to understand and agrees to proceedwith anesthesia plan. Reviewed the physical assessment, medical history, allergy history and patient home medications list prior to surgery/procedure/anesthetic and documented any changes. Performed airway and anesthesia risk assessments. Anesthesia Type Anesthesia Type: MAC Anesthesia Focused Assessment* Temperature: 98.9 F Pulse Rate: 78 Blood Pressure: 143/75 Respiratory Rate: 14 Pulse Ox: 100 Airway Assessment Mouth opens: >3 cm Mallampati Score: II Labs Anesthesia Preop lab: CBC WBC 7.4 K/mm3 (4.4-11.0) 05/01/25 10:39 05/01/25 RBC 4.76 M/mm3 (4.6-6.2) 05/01/25 10:39 05/01/25 Hgb 14.6 g/dL (13.0-16.5) 05/01/25 10:39 05/01/25 Hct 42.2 % (40-54) 05/01/25 10:39 05/01/25 Plt Count 336 K/mm3 (150-450) 05/01/25 10:39 05/01/25 CHEMISTRY Potassium 4.8 mmol/L (3.3-5.1) 05/01/25 10:39 05/01/25 Sodium 132 mmol/L (133-145) L 05/01/25 10:39 05/01/25 Magnesium 1.7 mg/dL (1.6-2.6) 11/07/24 02:38 11/07/24 Phosphorus 2.6 mg/dL (2.5-4.9) 11/07/24 02:38 11/07/24 BUN 7 mg/dL (4-19) 05/01/25 10:39 05/01/25 Creatinine 0.69 mg/dL (0.70-1.20) L 05/01/25 10:39 Glucose 91 mg/dL (70-99) 05/01/25 10:39 05/01/25 POC Glucose 97 mg/dL (74-106) 09/08/24 00:17 09/08/24 TSH 1.490 uIU/mL (0.358-3.740) 11/07/24 02:38 10/11 COAG PT 13.4 SECONDS (11.7-14.9) 04/07/25 08:45 Pre-Assessment Diagnosis/Proposed Procedure Planned Operative Procedure(s): INSERTION VASCULAR PORT LEFT Anesthesia History 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 When Was Last Pacemaker Check QUESTION #4 FULL TEXT: You/Your Family Experience fever (hyperthermia) with Anesthesia Last Oral Intake Last Oral intake: Last Oral Intake NPO since 08:00 06/05/25 12:28 Meds taken in AM with sips of Yes 06/05/25 12:28 water? 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 Female No 06/02/25 09:58 HX of Motion Sickness No 06/02/25 09:58 HX of N/V After Surgery No 06/02/25 09:58 Non-Smoker No 06/02/25 09:58 Duration of Surgery greater No 06/02/25 09:58 than 60 minutes Number of Risk Factors PONV Score Height & Weight Height & Weight: Anesthesia: Height & Weight Height 5 ft 4 in 06/05/25 12:28 Weight: 47 kg 06/05/25 12:28 Body Mass Index (BMI) 17.7 06/05/25 12:28 Respiratory Assessment Respiratory Assessment - director of early childhood education: Respiratory Tract Infection Hx - director of early childhood education Hx Respiratory Tract Infection No 06/02/25 09:58 STOP Sleep Apnea STOP Sleep Apnea - director of early childhood education: STOP Sleep Apnea - director of early childhood education Hx Hypertension Yes: NO MED FOR 5-6 MONTHS 06/02/25 09:58 Hx Sleep Apnea No 06/02/25 09:58 CPAP BIPAP Do you snore loudly (louder No 06/02/25 09:58 than talking or can be heard Do you often feel tired/ No 06/02/25 09:58 fatigued/ sleepy during daytime? Has anyone observed you stop No 06/02/25 09:58 breathing during sleep? STOP Results Negative 06/02/25 09:58 QUESTION #5 FULL TEXT : Do you snore loudly (louder than talking or can be heard through closed doors)? 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 Specify any problems Hx of Preganancy in last 3 N/A 06/02/25 09:58 Months Nurse Filling Out Transfusion DSCHRIBER 06/02/25 09:58 & Questions: Date: 06/02/25 06/02/25 09:58 Time: 10:00 06/02/25 09:58 Patient unable to answer at this time (ie. 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 Hx Now No 06/02/25 09:58 Gestational Age (in weeks): EDC: Hx Hx Para Hx Section SAB No 06/02/25 09:58 Active Medications Active Medications: Current Medications Generic Name Dose Route Start Last Admin Trade Name Freq PRN Reason Stop Dose Admin Cefazolin Sodium 2 gm/ Sodium 110 mls @ 200 mls/hr 06/05/25 13:45 Chloride IV 06/05/25 14:17 INTRAOP ONE Lactated Ringer's 1,000 mls @ 15 mls/hr 06/05/25 12:15 IV .Q48H JOSE R PFSH Medical History Wears glasses Wears dentures Cancer Shortness of breath on exertion Leg cramps Blackout Hypertension History of echocardiogram Mediastinal lymphadenopathy BPH without urinary obstruction COPD (chronic obstructive pulmonary disease) Stenosis of right internal carotid artery Chronic alcohol abuse Hypokalemia Orthostatic hypotension Syncope and collapse Hyponatremia Vision loss of left eye Smoker Mass of left lung Hypertension Pulmonary nodules Nicotine dependence, cigarettes, uncomplicated Home Medications ?Medication ?Instructions ?Recorded ?Last Taken ?Type tamsulosin 0.4 mg capsule 0.4 mg PO QHS 12/29/2306/05 History albuterol sulfate 90 mcg/actuation 1 puff inhalation Q 4H PRN 12/09/24 06/04/25 History aerosol inhaler hydroxyzine HCl 50 mg tablet 50 mg PO QHS 12/26/24 History aspirin 81 mg tablet,delayed 81 mg PO DAILY 04/07/25 0 06/05/25 History release (Adult Low Dose Aspirin) glycopyrrolate 9 mcg-formoterol 2 puff inhalation Q12H 04/07/25 06/04/25 History 4.8 mcg HFA aerosol inhaler (Bevespi Aerosphere) polymyxin B sulfate 10,000 1 drp ophthalmic (eye) DANDRE Y 04/19/25 06/04/25 History unit-trimethoprim 1 mg/mL eye drops Allergy/AdvReac Type Severity Reaction Status Date / Time hydrochlorothiazide AdvReac hyponatremi Verified 06/05/25 12:27 a Family History Father Cancer Mother Diabetes Surgical History History of lung biopsy History of colonoscopy H/O vasectomy Social History household members: family housing: house current occupational status: retired Smoking Status: Current every day smoker tobacco type: cigarettes alcohol intake: current alcohol intake frequency: 3 or more drinks per day Alcohol type: beer details: up to 12 beers daily substance use type: does not use caffeine: Yes Review of Systems (Anesthesia) ROS Narrative System reviewed and no additional complaints, except as documented. 06/05/25 1622 <Electronically signed by Gavin Hill MD > Date _ Gavin Hill MD Cosigner Signature: Date CC: ~ Signed [facility] Work Phone: 1(801) 879-912007-28-2025 History and physical note [facility] Medical Records Department [address] [place] [address] History & Physical Exam 06/05/25 1338 MR#: [id number] Acct: [id number] Name: PARTICK ANDRES Jr. Rep #:[id number] : 1955 70 From: Ray Sanders MD PCP: FRIEDA KEARNEY Status:[facility] Location: [place] [address] HPI - General General Date of Service: 06/05/25 Chief Complaint: Mediport placement HPI Narrative PATRICK ANDRES, is a 70 M who presents for elective Mediport placement for chemotherapy as treatment for lung cancer PENDING SALE TO [facility] Medical History Wears glasses Wears dentures Cancer Shortness of breath on exertion Leg cramps Blackout Hypertension History of echocardiogram Mediastinal lymphadenopathy BPH without urinary obstruction COPD (chronic obstructive pulmonary disease) Stenosis of right internal carotid artery Chronic alcohol abuse Hypokalemia Orthostatic hypotension Syncope and collapse Hyponatremia Vision loss of left eye Smoker Mass of left lung Hypertension Pulmonary nodules Nicotine dependence, cigarettes, uncomplicated Home Medications ?Medication ?Instructions ?Recorded ?Last Taken ?Type tamsulosin 0.4 mg capsule 0.4 mg PO QHS 12/29/2306/05 History albuterol sulfate 90 mcg/actuation 1 puff inhalation Q 4H PRN 12/09/24 06/04/25 History aerosol inhaler hydroxyzine HCl 50 mg tablet 50 mg PO QHS 12/26/24 History aspirin 81 mg tablet,delayed 81 mg PO DAILY 04/07/25 0 06/05/25 History release (Adult Low Dose Aspirin) glycopyrrolate 9 mcg-formoterol 2 puff inhalation Q12H 04/07/25 06/04/25 History 4.8 mcg HFA aerosol inhaler (Bevespi Aerosphere) polymyxin B sulfate 10,000 1 drp ophthalmic (eye) DANDRE Y 04/19/25 06/04/25 History unit-trimethoprim 1 mg/mL eye drops Allergy/AdvReac Type Severity Reaction Status Date / Time hydrochlorothiazide AdvReac hyponatremi Verified 06/05/25 12:27 a Family History Father Cancer Mother Diabetes Surgical History History of lung biopsy History of colonoscopy H/O vasectomy Social History household members: family housing: house current occupational status: retired Smoking Status: Current every day smoker tobacco type: cigarettes alcohol intake: current alcohol intake frequency: 3 or more drinks per day Alcohol type: beer details: up to 12 beers daily substance use type: does not use caffeine: Yes Vital Signs Vital Signs Vital Signs: 06/05/25 12:28 06/05/25 12:28 06/05/25 12:38 Temperature 98.9 F 98.9 F Temperature Source Temporal Pulse Rate 78 78 Respiratory Rate 14 14 Respiratory Pattern Normal Blood Pressure 143/75 H 143/75 H Blood Pressure Mean 97 Blood Pressure Source Monitor Blood Pressure Position Semi-Fowlers Blood Pressure Location Left Arm Pulse Ox 100 100 Oxygen Delivery Method Room Air Weight Weight: 103 lb 9.876 oz Body Mass Index (BMI) 17.7 Physical Exam Const alert, oriented x3 and no apparent distress Assessment & Plan Assessment/Plan (1) 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 06/05/25 1340 Cosigner Signature (if applicable): CC: MASTER DATA ANALYST-C JESUS CALLAHAN; Dr. Ray Sanders MD~ Signed [facility]28[facility] Consult note [facility] Medical Records Department [address] [place] [address] Pre-Anesthesia Evaluation 06/05/25 1237 MR#: [id number] Acct: [id number] Name: PATRICK ANDRES Jr. Rep #:[id number] : 1955 70 From: Gavin Hill MD PCP: FRIEDA KEARNEY Status:REG [facility] Y Race: C Location: [place] [address] ASA Classification* ASA Classification ASA Classification: 3 Assessment & Plan Anesthesia* Anesthesia Assessment Anesthesia Assessment: Discussed sedation and/or anesthesia options, risks, benefits, and alternatives with patient/parents/legal guardian/POA. Questions invited. The patient/parents/legal guardian/POA seems to understand and agrees to proceedwith anesthesia plan. Reviewed the physical assessment, medical history, allergy history and patient home medications list prior to surgery/procedure/anesthetic and documented any changes. Performed airway and anesthesia risk assessments. Anesthesia Type Anesthesia Type: MAC Anesthesia Focused Assessment* Temperature: 98.9 F Pulse Rate: 78 Blood Pressure: 143/75 Respiratory Rate: 14 Pulse Ox: 100 Airway Assessment Mouth opens: >3 cm Mallampati Score: II Labs Anesthesia Preop lab: CBC WBC 7.4 K/mm3 (4.4-11.0) 05/01/25 10:39 05/01/25 RBC 4.76 M/mm3 (4.6-6.2) 05/01/25 10:39 05/01/25 Hgb 14.6 g/dL (13.0-16.5) 05/01/25 10:39 05/01/25 Hct 42.2 % (40-54) 05/01/25 10:39 05/01/25 Plt Count 336 K/mm3 (150-450) 05/01/25 10:39 05/01/25 CHEMISTRY Potassium 4.8 mmol/L (3.3-5.1) 05/01/25 10:39 05/01/25 Sodium 132 mmol/L (133-145) L 05/01/25 10:39 05/01/25 Magnesium 1.7 mg/dL (1.6-2.6) 11/07/24 02:38 11/07/24 Phosphorus 2.6 mg/dL (2.5-4.9) 11/07/24 02:38 11/07/24 BUN 7 mg/dL (4-19) 05/01/25 10:39 05/01/25 Creatinine 0.69 mg/dL (0.70-1.20) L 05/01/25 10:39 Glucose 91 mg/dL (70-99) 05/01/25 10:39 05/01/25 POC Glucose 97 mg/dL (74-106) 09/08/24 00:17 09/08/24 TSH 1.490 uIU/mL (0.358-3.740) 11/07/24 02:38 12/ COAG PT 13.4 SECONDS (11.7-14.9) 04/07/25 08:45 Pre-Assessment Diagnosis/Proposed Procedure Planned Operative Procedure(s): INSERTION VASCULAR PORT LEFT Anesthesia History 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 When Was Last Pacemaker Check QUESTION #4 FULL TEXT: You/Your Family Experience fever (hyperthermia) with Anesthesia Last Oral Intake Last Oral intake: Last Oral Intake NPO since 08:00 06/05/25 12:28 Meds taken in AM with sips of Yes 06/05/25 12:28 water? 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 Female No 06/02/25 09:58 HX of Motion Sickness No 06/02/25 09:58 HX of N/V After Surgery No 06/02/25 09:58 Non-Smoker No 06/02/25 09:58 Duration of Surgery greater No 06/02/25 09:58 than 60 minutes Number of Risk Factors PONV Score Height & Weight Height & Weight: Anesthesia: Height & Weight Height 5 ft 4 in 06/05/25 12:28 Weight: 47 kg 06/05/25 12:28 Body Mass Index (BMI) 17.7 06/05/25 12:28 Respiratory Assessment Respiratory Assessment - director of early childhood education: Respiratory Tract Infection Hx - director of early childhood education Hx Respiratory Tract Infection No 06/02/25 09:58 STOP Sleep Apnea STOP Sleep Apnea - director of early childhood education: STOP Sleep Apnea - director of early childhood education Hx Hypertension Yes: NO MED FOR 5-6 MONTHS 06/02/25 09:58 Hx Sleep Apnea No 06/02/25 09:58 CPAP BIPAP Do you snore loudly (louder No 06/02/25 09:58 than talking or can be heard Do you often feel tired/ No 06/02/25 09:58 fatigued/ sleepy during daytime? Has anyone observed you stop No 06/02/25 09:58 breathing during sleep? STOP Results Negative 06/02/25 09:58 QUESTION #5 FULL TEXT : Do you snore loudly (louder than talking or can be heard through closeddoors)? 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 Specify any problems Hx of Preganancy in last 3 N/A 06/02/25 09:58 Months Nurse Filling Out Transfusion DSCHRIBER 06/02/25 09:58 & Questions: Date: 06/02/25 06/02/25 09:58 Time: 10:00 06/02/25 09:58 Patient unable to answer at this time (ie. 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 Hx Now No 06/02/25 09:58 Gestational Age (in weeks): EDC: Hx Hx Para Hx Section SAB No 06/02/25 09:58 Active Medications Active Medications: Current Medications Generic Name Dose Route Start Last Admin Trade Name Freq PRN Reason Stop Dose Admin Cefazolin Sodium 2 gm/ Sodium 110 mls @ 200 mls/hr 06/05/25 13:45 Chloride IV 06/05/25 14:17 INTRAOP ONE Lactated Ringer's 1,000 mls @ 15 mls/hr 06/05/25 12:15 IV .Q48H JOSE R PFSH Medical History Wears glasses Wears dentures Cancer Shortness of breath on exertion Leg cramps Blackout Hypertension History of echocardiogram Mediastinal lymphadenopathy BPH without urinary obstruction COPD (chronic obstructive pulmonary disease) Stenosis of right internal carotid artery Chronic alcohol abuse Hypokalemia Orthostatic hypotension Syncope and collapse Hyponatremia Vision loss of left eye Smoker Mass of left lung Hypertension Pulmonary nodules Nicotine dependence, cigarettes, uncomplicated Home Medications ?Medication ?Instructions ?Recorded ?Last Taken ?Type tamsulosin 0.4 mg capsule 0.4 mg PO QHS 12/29/2306/05 History albuterol sulfate 90 mcg/actuation 1 puff inhalation Q 4H PRN 12/09/24 06/04/25 History aerosol inhaler hydroxyzine HCl 50 mg tablet 50 mg PO QHS 12/26/24 History aspirin 81 mg tablet,delayed 81 mg PO DAILY 04/07/25 0 06/05/25 History release (Adult Low Dose Aspirin) glycopyrrolate 9 mcg-formoterol 2 puff inhalation Q12H 04/07/25 06/04/25 History 4.8 mcg HFA aerosol inhaler (Bevespi Aerosphere) polymyxin B sulfate 10,000 1 drp ophthalmic (eye) DANDRE Y 04/19/25 06/04/25 History unit-trimethoprim 1 mg/mL eye drops Allergy/AdvReac Type Severity Reaction Status Date / Time hydrochlorothiazide AdvReac hyponatremi Verified 06/05/25 12:27 a Family History Father Cancer Mother Diabetes Surgical History History of lung biopsy History of colonoscopy H/O vasectomy Social History household members: family housing: house current occupational status: retired Smoking Status: Current every day smoker tobacco type: cigarettes alcohol intake: current alcohol intake frequency: 3 or more drinks per day Alcohol type: beer details: up to 12 beers daily substance use type: does not use caffeine: Yes Review of Systems (Anesthesia) ROS Narrative System reviewed and no additional complaints, except as documented. 06/05/25 1238 > Date _ Gavin Andujar Signature: Date CC: ~ Signed [facility]07-23-2025 Progress [facility] [address] [place] [address] OFFICE VISIT Date of Service: 05/31/25 MR#: [id number] Acct: [id number] Name: MCKENNASOUMYA Jr. Rep #: [id number] : 1955 Provider: Dr. Jesse Sanders MD Age/Sex: 70/M Location: [facility] Status: Signed Intake Vital Signs 05/29/25 10:38 05/31/25 12:58 Height 5 ft 4 in 5 ft 4 in Weight: 105 lb 7 oz 106 lb BMI 18.1 18.1 BP 143/73 H 119/61 Blood Pressure Location Lt brachial Rt brachial Position Sitting Sitting Respiration 18 16 Pulse 64 Pulse Source Monitor Temp 98 F Pulse Oximetry (%) 99 Oxygen Delivery Method room air Intake Visit Reasons: PORT PLACEMENT Chief Complaint: port placement Composing Machine Operator Required: No Is patient in pain?: No Allergies hydrochlorothiazide Adverse Reaction (Verified 05/31/25 12:59) hyponatremia Medications ?Medication ?Instructions ?Recorded ?Confirmed ?Type tamsulosin 0.4 mg capsule 0.4 mg PO DAILY 12/29/23 History albuterol sulfate 90 mcg/actuation 1 puff inhalation Q 4H PRN 12/09/24 05/31/25 History aerosol inhaler hydroxyzine HCl 50 mg tablet 50 mg PO QHS 12/26/24 History aspirin 81 mg tablet,delayed 81 mg PO DAILY 04/07/25 0 05/31/25 History release (Adult Low Dose Aspirin) glycopyrrolate 9 mcg-formoterol 2 puff inhalation Q12H 04/07/25 05/31/25 History 4.8 mcg HFA aerosol inhaler (Bevespi Aerosphere) polymyxin B sulfate 10,000 ophthalmic (eye) 04/19/25 0 05/31/25 History unit-trimethoprim 1 mg/mL eye drops Have you fallen in the past year?: No PFSH Medical History Pneumothorax Mediastinal lymphadenopathy Tobacco use disorder BPH without urinary obstruction COPD (chronic obstructive pulmonary disease) Orthostatic hypotension Pulmonary nodules Hyponatremia Syncope and collapse Hypokalemia Chronic alcohol abuse Stenosis of right internal carotid artery Abnormal echocardiogram Mass of left lung Vision loss of left eye Smoker Hypertension Nicotine dependence, cigarettes, uncomplicated Surgical History History of lung biopsy History of colonoscopy H/O vasectomy Family History Father Cancer Mother Diabetes Social History household members: family housing: house current occupational status: retired Smoking Status: Current every day smoker tobacco type: cigarettes alcohol intake: current alcohol intake frequency: 3 or more drinks per day Alcohol type: beer details: up to 12 beers daily substance use type: does not use caffeine: Yes HPI HPI HPI: The patient is a 70-year-old male recently diagnosed with lung cancer. He is known to me for pneumothorax following a recent lung biopsy. He presents today to discuss Mediport placement. He is scheduled to begin chemotherapy in the next few weeks ROS General General: Yes weight change and appetite; No fatigue, colon cancer, breast cancer or weakness HEENT HEENT: No difficulty swallowing, eye injury, eye surgery, swollen glands or hoarseness Endo Endocrine: No thyroid disease, diabetes mellitus, thyroid cancer, Hair loss, heat intolerance or cold intolerance Skin Skin: No rash or changing moles Musc Musculoskeletal: No back problems, arthritis, rheumatoid arthritis, gout or joint pain Cardio Cardiovascular: Yes heart disease and shortness of breath with exertion; No murmur, pacemaker, atrial fibrillation, high blood pressure, heart attack, heart stent, palpitations or chest pain Psych Psychiatric: No depression, anxiety or hearing voices Resp Respiratory: Yes shortness of breath, No sleep apnea, Yes cough, Yes COPD, No asthma, No emphysema and No wheezing Gastro Gastrointestinal: No abdominal pain, No nausea or vomiting, No diarrhea, No constipation, No blood in stool, No acid reflux, No hemorrhoids, No ulcers, No gallbladder problem and No black,tarry stools Óscar Hematologic: No blood thinners, No blood disorders, No bleeding, No anemia and No blood clots Neuro Neurologic: No system reviewed and no additional complaints, except as documented, No as per HPI, No abnormal gait, No abnormal hearing, No abnormal movements, No abnormal speech, No behavioral changes, No burning sensations, No confusion, No convulsions, No disequilibrium, No dizziness, No localized weakness, No frequent falls, No headache(s), No lack of coordination, No loss ofvision, No memoryloss, No numbness, No other visual disturbances, No radicular pain, No restless legs, No sensory deficit, Yes syncope, No tingling, No tremor(s), No weakness and No other Exam Const General: cooperative, comfortable and no acute distress HENMT Head: normal to inspection Assessment and Plan Assessment and Plan (1) 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 PDL1 11%, EGFR, ALK, BRAF, Her2, STEVE, ROS1,MET, RET are negative. PET/CT on 04/25/2025 shows bilateral lung nodules, bilateral lateral hilar nodes. Discussed management which consist of chemotherapy, immunotherapy, Pt wants to do every 3 weeks therapy. Suggested therapy with Alimta, Carboplatin and Keytruda Plan: The patient is a 70-year-old male with a newly discovered lung cancer. I have offered him Mediport placement to help facilitate the chemotherapy process. He is right-handed so I will typically place the port on the left. We discussed the details of the planned procedure including risks benefits andalternatives and he wishes to proceed. This will be scheduled in a timely manner. 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 Ayden Bosch MD ~ [facility]07-23-2025 Progress note Author Ray Sanders [facility] Note Date/Time May 31, 2025 12:5 8pm [facility] [address] [place], [place] [address] OFFICE VISIT Date of Service: 05/31/25 MR#: [id number] Acct: [id number] Name: PATRICK ANDRES JrQuan Rep #: [id number] : 1955 Provider: Dr. Jesse Sanders MD Age/Sex: 70/M Location: [facility] Status: Signed Intake Vital Signs 05/29/25 10:38 05/31/25 12:58 Height 5 ft 4 in 5 ft 4 in Weight: 105 lb 7 oz 106 lb BMI 18.1 18.1 BP 143/73 H 119/61 Blood Pressure Location Lt brachial Rt brachial Position Sitting Sitting Respiration 18 16 Pulse 64 Pulse Source Monitor Temp 98 F Pulse Oximetry (%) 99 Oxygen Delivery Method room air Intake Visit Reasons: PORT PLACEMENT Chief Complaint: port placement Composing Machine Operator Required: No Is patient in pain?: No Allergies hydrochlorothiazide Adverse Reaction (Verified 05/31/25 12:59) hyponatremia Medications ?Medication ?Instructions ?Recorded ?Confirmed ?Type tamsulosin 0.4 mg capsule 0.4 mg PO DAILY 12/29/23 History albuterol sulfate 90 mcg/actuation 1 puff inhalation Q 4H PRN 12/09/24 05/31/25 History aerosol inhaler hydroxyzine HCl 50 mg tablet 50 mg PO QHS 12/26/24 History aspirin 81 mg tablet,delayed 81 mg PO DAILY 04/07/25 0 05/31/25 History release (Adult Low Dose Aspirin) glycopyrrolate 9 mcg-formoterol 2 puff inhalation Q12H 04/07/25 05/31/25 History 4.8 mcg HFA aerosol inhaler (Bevespi Aerosphere) polymyxin B sulfate 10,000 ophthalmic (eye) 04/19/25 0 05/31/25 History unit-trimethoprim 1 mg/mL eye drops Have you fallen in the past year?: No PFSH Medical History Pneumothorax Mediastinal lymphadenopathy Tobacco use disorder BPH without urinary obstruction COPD (chronic obstructive pulmonary disease) Orthostatic hypotension Pulmonary nodules Hyponatremia Syncope and collapse Hypokalemia Chronic alcohol abuse Stenosis of right internal carotid artery Abnormal echocardiogram Mass of left lung Vision loss of left eye Smoker Hypertension Nicotine dependence, cigarettes, uncomplicated Surgical History History of lung biopsy History of colonoscopy H/O vasectomy Family History Father Cancer Mother Diabetes Social History household members: family housing: house current occupational status: retired Smoking Status: Current every day smoker tobacco type: cigarettes alcohol intake: current alcohol intake frequency: 3 or more drinks per day Alcohol type: beer details: up to 12 beers daily substance use type: does not use caffeine: Yes HPI HPI HPI: The patient is a 70-year-old male recently diagnosed with lung cancer. He is known to me for pneumothorax following a recent lung biopsy. He presents today to discuss Mediport placement. He is scheduled to begin chemotherapy in the next few weeks ROS General General: Yes weight change and appetite; No fatigue, colon cancer, breast cancer or weakness HEENT HEENT: No difficulty swallowing, eye injury, eye surgery, swollen glands or hoarseness Endo Endocrine: No thyroid disease, diabetes mellitus, thyroid cancer, Hair loss, heat intolerance or cold intolerance Skin Skin: No rash or changing moles Musc Musculoskeletal: No back problems, arthritis, rheumatoid arthritis, gout or joint pain Cardio Cardiovascular: Yes heart disease and shortness of breath with exertion; No murmur, pacemaker, atrial fibrillation, high blood pressure, heart attack, heart stent, palpitations or chest pain Psych Psychiatric: No depression, anxiety or hearing voices Resp Respiratory: Yes shortness of breath, No sleep apnea, Yes cough, Yes COPD, No asthma, No emphysema and No wheezing Gastro Gastrointestinal: No abdominal pain, No nausea or vomiting, No diarrhea, No constipation, No blood in stool, No acid reflux, No hemorrhoids, No ulcers, No gallbladder problem and No black,tarry stools Óscar Hematologic: No blood thinners, No blood disorders, No bleeding, No anemia and No blood clots Neuro Neurologic: No system reviewed and no additional complaints, except as documented, No as per HPI, No abnormal gait, No abnormal hearing, No abnormal movements, No abnormal speech, No behavioral changes, No burning sensations, No confusion, No convulsions, No disequilibrium, No dizziness, No localized weakness, No frequent falls, No headache(s), No lack of coordination, No loss ofvision, No memory loss, No numbness, No other visual disturbances, No radicular pain, No restless legs, No sensory deficit, Yes syncope, No tingling, No tremor(s), No weakness and No other Exam Const General: cooperative, comfortable and no acute distress HENMT Head: normal to inspection Assessment and Plan Assessment and Plan (1) 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 PDL1 11%, EGFR, ALK, BRAF, Her2, STEVE, ROS1, MET, RET are negative. PET/CT on 04/25/2025 shows bilateral lung nodules, bilateral lateral hilar nodes. Discussed management which consist of chemotherapy, immunotherapy, Pt wants to do every 3 weeks therapy. Suggested therapy with Alimta, Carboplatin and Keytruda Plan: The patient is a 70-year-old male with a newly discovered lung cancer. I have offered him Mediport placement to help facilitate the chemotherapy process. He is right-handed so I will typically place the port on the left. We discussed the details of the planned procedure including risks benefits and alternatives and he wishes to proceed. This will be scheduled in a timely manner. 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 Ayden Bosch MD ~ [facility] Work Phone: [phone]) 967-268206-02-2025 Consult note [facility] Medical Records Department [address] [place] [address] Counseling Note - Pharmacy 04/10/25 1444 MR#: [id number] Acct: [id number] Name: PATRICK ANDRES Jr. Rep #:[id number] : 1955 70 From: Fiorella Barraza PCP: JESUS CALLAHAN MASTER DATA ANALYSTTrina Status:ADM I N Y Location: [place] [address] [place] Med Reconciliation Pharmacy Service has performed discharge medication reconciliation for this patient. The patient's discharge medication list was reviewed for discrepancies and discrepancies were resolved. Medications at Discharge Home Medications tamsulosin 0.4 mg capsule 0.4 mg PO DAILY 12/29/23 albuterol sulfate 90 mcg/actuation aerosol inhaler 1 puff inhalation Q4H PRN 12/09/24 hydroxyzine HCl 50 mg tablet 50 mg PO QHS 12/26/24 aspirin 81 mg tablet,delayed release (Adult Low Dose Aspirin) 81 mg PO DAILY 04/07/25 atorvastatin 40 mg tablet (Lipitor) 40 mg PO QHS 04/07/25 glycopyrrolate 9 mcg-formoterol 4.8 mcg HFA aerosol inhaler (Bevespi Aerosphere)2 puff inhalation Q12H 04/07/25 04/10/25 1444 Date _ Fiorella Andujar Signature (if applicable): Date CC: ~ Signed [facility]06-02-2025 Discharge summary [facility] Medical Records Department [address] [place] [address] Discharge Summary 04/10/25 1422 MR#: [id number] Acct: [id number] Name: PATRICK ANDRES Rep #:[id number] : 1955 70 From: Malcolm Hanson DO PCP: JESUS CALLAHAN Status:ADM I N Location: [place] [address] Providers Date of Admission: 04/07/25 Primary Care Physician: FRIEDA KEARNEY Consultations 04/07/25 15:01 Consult: General Surgery Routine Consulting Provider: Ray Sanders Reason for Consult: pneumothorax EMERGENT Consult: No MD Notified: Yes Date Notified: 04/07/25 Time Notified: 15:02 Method of Notification: Text Reason For Visit: IATROGENIC PNEUMOTHORAX Diagnosis Discharge Diagnosis (1) Iatrogenic pneumothorax: Status: Acute Code(s): J95.811 - Postprocedural pneumothorax Plan: Iatrogenic from lung biopsy Surgery following. CT removed today. Follow up chest xray no recurrent PTX. Ok from surgery to DC. Plan Chronic conditions: * BPH: tamsulosin * COPD: not in exacerbation * PAD: right carotid stenosis. on ASA and statin. VTE prophylaxis: LMWH. Medications at Discharge Home Medications tamsulosin 0.4 mg capsule 0.4 mg PO DAILY 12/29/23 albuterol sulfate 90 mcg/actuation aerosol inhaler 1 puff inhalation Q4H PRN 12/09/24 hydroxyzine HCl 50 mg tablet 50 mg PO QHS 12/26/24 aspirin 81 mg tablet,delayed release (Adult Low Dose Aspirin) 81 mg PO DAILY 04/07/25 atorvastatin 40 mg tablet (Lipitor) 40 mg PO QHS 04/07/25 glycopyrrolate 9 mcg-formoterol 4.8 mcg HFA aerosol inhaler (Bevespi Aerosphere)2 puff inhalation Q12H 04/07/25 Weight / BMI Weight Weight: 53.07 kg Body Mass Index (BMI) 20.0 ABG / Lab / Microbiology Data 04/08/25 06:02 04/08/25 06:02 Radiography Diagnostic Testing: Radiology Impression Chest X-Ray 04/10/25 04:46 IMPRESSION: Decreased minimal left apical pneumothorax. Unchanged left apical thoracostomy pleural drainage catheter. Unchanged emphysema. Unchanged blunting of the costophrenic angles, probably adhesions. [facility] Chest [facility]-Ray 04/10/25 12:35 IMPRESSION: 1. Is tissue and patchy airspace disease. Status post removal of left-sided chest tube. No pneumothorax. 2. Suggestion of COPD. Reading [facility] Instructions Discharge Diet: No restrictions DC O2, CPAP, BIPAP Needs Home O2 Discharge instructions: No Meaningful Use Info Meaningful Use Meaningful Use Diagnoses (Choose all that apply): None applicable Ischemic Stroke Statin Dosing Therapy Reference: STATIN DOSE THERAPY REFERENCE: * Patients > 75 years receive moderate or high dose statin therapy. * Patients 75 years or YOUNGER should receive HIGH intensity statin dose unless contraindicated. You will be required to document reason for non-treatment if statin daily dose does not meet guidelines. HIGH DOSE STATIN THERAPY DAILY Atorvastatin > than or = to 40 mg Rosuvastatin > than or = to 20 mg Amlodipine + Atorvastatin > than or = to 2.5/40 mg Ezetimibe + Simvastatin 10/80 mg Simvastatin 80mg Discharge Plan Admission Admit Date/Time: 04/07/25 13:24 Primary Reason for Your Visit: Left pneumothorax Attending Provider: Malcolm Hanson Primary Care Provider: JESUS CALLAHAN Consulting Providers: Ray Sanders; Michelle Do; Chuy Covarrubias Instructions Additional Instructions / Restrictions: Please follow-up with your PCP in 1 week for a follow-up chest x-ray Do not get bandage wet for 3 days May remove bandage on left chest in 3 days No follow-up with Dr. Sanders is needed Discharge Orders/Prescriptions Prescriptions: No Action tamsulosin 0.4 mg capsule 0.4 mg PO DAILY albuterol sulfate 90 mcg/actuation HFA aerosol inhaler 1 puff inhalation Q4H PRN hydroxyzine HCl 50 mg tablet 50 mg PO QHS atorvastatin [Lipitor] 40 mg tablet 40 mg PO QHS aspirin [Adult Low Dose Aspirin] 81 mg tablet,delayed release (DR/EC) 81 mg PO DAILY Bevespi Aerosphere 9-4.8 mcg HFA aerosol inhaler 2 puff inhalation Q12H Referrals / Follow Up: [facility] [Provider Group] - 04/14/25 9:45 am JESUS CALLAHAN NP-C [Primary Care Provider] - 04/17/25 Disposition Disposition (needs filled in before D/C Order can be placed): Home, Self Care Charges/Coding Visit Charges Inpatient E&M: 15136 Disch Hosp 04/10/25 2041 Cosigner Signature (if applicable): CC: Dr. Malcolm Hanson DO; JESUS CALLAHAN~ Signed [facility]06-02-2025 [facility]06-02-2025 Radiology Diagnostic study note [facility] Imaging Services [address] [place], [place] [address] Chest PA and Lateral MR#: [id number] Acct: [id number] Name: PATRICK ANDRES JrQuan Rep #: [id number] 80 : 1955 M 70 From: Paris Londono MD PCP: JESUS CALLAHAN Status: ADM I N Study:Chest PA and Lateral Date of Exam: 04/10/25 Exam# [id number] Ordering Dr: Padma Guerrero PA-C EXAM: XR Chest, 2 Views CLINICAL INDICATION: LEFT PNEUMOTHORAX TECHNIQUE: Frontal and lateral views of the chest. COMPARISON: XR Chest dated 04/10/2025 FINDINGS: LUNGS AND PLEURAL SPACES: Is tissue and patchy airspace disease. Status post removal of left-sided chest tube. No pneumothorax. Hyperlucent lungs. Flattening of the diaphragm. HEART: Unremarkable. No cardiomegaly. MEDIASTINUM: Unremarkable. Normal mediastinal contour. BONES/JOINTS: Unremarkable. No acute fracture. RAD/Chest PA and Lateral IMPRESSION: 1. Is tissue and patchy airspace disease. Status post removal of left-sided chest tube. No pneumothorax. 2. Suggestion of COPD. Reading [facility] CC: PABLO Guerrero; JESUS CALLAHAN ~ Electronics Lead: Signed [facility]06-02-2025 Progress note Author Malcolm Hanson [facility] Note Date/Time April 10, 2025 10:41 am [facility] Medical Records Department [address] [place] [address] Progress Note - Hospitalist 04/10/25 0811 MR#: [id number] Acct: [id number] Name: PATRICK ANDRES Rep #:[id number] 06 : 1955 70 From: Malcolm Hanson DO PCP: JESUS CALLAHAN Status:ADM I N Location: [place] [address] Reason for Visit Reason for Visit: Diagnoses Postprocedural pneumothorax (04/07/25) Hypoxemia (04/07/25) Subjective Subjective Feeling well. CT removed. Objective Data Objective Data Vital Signs: Vital Signs Temp Pulse Resp BP Pulse Ox O2 Del Method O2 Flow Rate 36.6 C 69 16 125/67 H 95 Room Air 2 04/10/25 02:50 04/10/25 07:46 04/10/25 02:50 04/10/25 02:50 04/10/25 02:50 04/10/25 07:41 04/08/25 14:25 Oxygen Flow Rate (L/min) 2 Oxygen Delivery Method Room Air Weight: 53.07 kg Body Mass Index (BMI) 20.0 Intake & Output: Intake and Output for Last 24 Hours 04/08/25 04/09/25 04/10/25 23:59 23:59 23:59 Intake Total 440 / 440 Output Total 425 / 725 2600 / 2900 600 / 600 Balance 15 / -285 -2600 / -2900 -600 / -600 Lab / Micro Data 04/08/25 06:02 04/08/25 06:02 Radiography Diagnostic Testing: Radiology Impression Chest X-Ray 04/10/25 04:46 IMPRESSION: Decreased minimal left apical pneumothorax. Unchanged left apical thoracostomy pleural drainage catheter. Unchanged emphysema. Unchanged blunting of the costophrenic angles, probably adhesions. Reading [facility] Physical Exam Const alert and no apparent distress HEENT head/scalp atraumatic and moist oral mucous membranes Resp normal respiratory effort, no retractions, no use of accessory muscles and clearto auscultation bilaterally Cardio regular rate, regular rhythm, S1 normal heart sound and S2 normal heart sound Assessment & Plan Assessment/Plan (1) Iatrogenic pneumothorax: PLAN: Iatrogenic from lung biopsy Surgery following. CT removed today. Follow up chest xray, if WNL--dc home. PLAN: Plan Chronic conditions: * BPH: tamsulosin * COPD: not in exacerbation * PAD: right carotid stenosis. on ASA and statin. VTE prophylaxis: LMWH. Charges/Coding Visit Charges Inpatient E&M: 27160 Subs Hosp L2 04/10/25 1041 <Electronically signed by Malcolm Hanson DO> Cosigner Signature (if applicable): CC: ~ Signed [facility] Work Phone: 1(531) 913-483406-02-2025 Progress note Author Padma Guerrero [facility] Note Date/Time April 10, 2025 10:30 am [facility] Medical Records Department [address] [place] [address] Progress Note - Surgery 04/10/25 1006 MR#: [id number] Acct: [id number] Name: MCKENNAPATRICK Archibald Jr. Rep #:[id number] 08 : 1955 70 From: Padma REYNOSO PA-C PCP: JESUS CALLAHAN Status:ADM I N Location: [place] [address] Subjective Subjective Patient evaluated resting comfortably in bed. He denies any shortness of breath.His CXR this morning demonstrated minimal left apical pneumothorax. No air leak. Objective Data Objective Data Vital Signs: Vital Signs Temp Pulse Resp BP Pulse Ox O2 Del Method O2 Flow Rate 97.5 F L 74 18 115/63 97 Room Air 2 04/10/25 08:47 04/10/25 08:47 04/10/25 08:47 04/10/25 08:47 04/10/25 08:47 04/10/25 08:48 04/08/25 14:25 Oxygen Flow Rate (L/min) 2 Oxygen Delivery Method Room Air Weight: 117 lb Body Mass Index (BMI) 20.0 Intake & Output: Intake and Output for Last 24 Hours 04/08/25 04/09/25 04/10/25 23:59 23:59 23:59 Intake Total 440 / 440 Output Total 425 / 725 2600 / 2900 600 / 600 Balance 15 / -285 -2600 / -2900 -600 / -600 Lab / Micro Data 04/08/25 06:02 04/08/25 06:02 Radiography Diagnostic Testing: Radiology Impression Chest X-Ray 04/10/25 04:46 IMPRESSION: Decreased minimal left apical pneumothorax. Unchanged left apical thoracostomy pleural drainage catheter. Unchanged emphysema. Unchanged blunting of the costophrenic angles, probably adhesions. Reading Location: [place] [address] Physical Exam Resp normal respiratory effort and clear to auscultation bilaterally Resp Narrative: Left chest- tube intact. No air leak noted. Chest tube removed and vaseline gauze applied along with multiple 4 x 4's and secured with silk tape. Assessment & Plan Assessment/Plan (1) Iatrogenic pneumothorax: PLAN: Plan I am following this patient in conjunction with Dr. Sanders. He has independently evaluated this patient. CXR this AM demonstrated minimal left apical pneumothorax Chest tube removed this morning Repeat CXR at noon Hopeful discharge pending CXR today We will continue to monitor this patient Charges/Coding Visit Charges Inpatient E&M: 07838 Subs Hosp L2 04/10/25 1012 <Electronically signed by Padma REYNOSO PA-C> Cosigner Signature (if applicable): CC: ~ Signed ADDENDUM by Dr. Ray Sanders MD on 04/10/25 at 1030 Addendum Patient seen and evaluated on rounds this morning along with Padma Lemus. Patient denies chest pains or shortness of breath. No airleak noted. There is possibly trace residual pneumothorax. Chest tube was removed without difficulty. Will repeat chest x-ray around noon today. If this shows stability, he can likely be discharged to home later today. Patient was agreeable to this plan. 04/10/25 1030<Electronically signed by Ray Sanders MD> Cosigner Signature (if applicable): cc: ~* Signed [facility] Work Phone: 1(514) 180-126806-02-2025 Progress note [facility] Medical Records Department [address] [place] [address] Progress Note - Hospitalist 04/10/25 0811 MR#: [id number] Acct: [id number] Name: PATRICK ANDRES Jr. Rep #:[id number] 06 : 1955 70 From: Malcolm Hanson DO PCP: JESUS CALLAHAN MASTER DATA ANALYST-Jonathan Status:ADM I N Location: [place] [address] Reason for Visit Reason for Visit: Diagnoses Postprocedural pneumothorax (04/07/25) Hypoxemia (04/07/25) Subjective Subjective Feeling well. CT removed. Objective Data Objective Data Vital Signs: Vital Signs Temp Pulse Resp BP Pulse Ox O2 Del Method O2 Flow Rate 36.6 C 69 16 125/67 H 95 Room Air 2 04/10/25 02:50 04/10/25 07:46 04/10/25 02:50 04/10/25 02:50 04/10/25 02:50 04/10/25 07:41 04/08/25 14:25 Oxygen Flow Rate (L/min) 2 Oxygen Delivery Method Room Air Weight: 53.07 kg Body Mass Index (BMI) 20.0 Intake & Output: Intake and Output for Last 24 Hours 04/08/25 04/09/25 04/10/25 23:59 23:59 23:59 Intake Total 440 / 440 Output Total 425 / 725 2600 / 2900 600 / 600 Balance 15 / -285 -2600 / -2900 -600 / -600 Lab / Micro Data 04/08/25 06:02 04/08/25 06:02 Radiography Diagnostic Testing: Radiology Impression Chest X-Ray 04/10/25 04:46 IMPRESSION: Decreased minimal left apical pneumothorax. Unchanged left apical thoracostomy pleural drainage catheter. Unchanged emphysema. Unchanged blunting of the costophrenic angles, probably adhesions. Reading Location: [place] [address] Physical Exam Const alert and no apparent distress HEENT head/scalp atraumatic and moist oral mucous membranes Resp normal respiratory effort, no retractions, no use of accessory muscles and clearto auscultation bilaterally Cardio regular rate, regular rhythm, S1 normal heart sound and S2 normal heart sound Assessment & Plan Assessment/Plan (1) Iatrogenic pneumothorax: PLAN: Iatrogenic from lung biopsy Surgery following. CT removed today. Follow up chest xray, if WNL--dc home. PLAN: Plan Chronic conditions: * BPH: tamsulosin * COPD: not in exacerbation * PAD: right carotid stenosis. on ASA and statin. VTE prophylaxis: LMWH. Charges/Coding Visit Charges Inpatient E&M: 57190 Subs Hosp L2 04/10/25 1041 Cosigner Signature (if applicable): CC: ~ Signed [facility]06-02-2025 Progress note [facility] Medical Records Department [address] [place] [address] Progress Note - Surgery 04/10/25 1006 MR#: [id number] Acct: [id number] Name: MCKENNAPATRICK Jr. Rep #:[id number] 08 : 1955 70 From: Padma REYNOSO PATrina PCP: JESUS CALLAHAN Status:ADM I N Location: [place] [address] Subjective Subjective Patient evaluated resting comfortably in bed. He denies any shortness of breath.His CXR this morning demonstrated minimal left apical pneumothorax. No air leak. Objective Data Objective Data Vital Signs: Vital Signs Temp Pulse Resp BP Pulse Ox O2 Del Method O2 Flow Rate 97.5 F L 74 18 115/63 97 Room Air 2 04/10/25 08:47 04/10/25 08:47 04/10/25 08:47 04/10/25 08:47 04/10/25 08:47 04/10/25 08:48 04/08/25 14:25 Oxygen Flow Rate (L/min) 2 Oxygen Delivery Method Room Air Weight: 117 lb Body Mass Index (BMI) 20.0 Intake & Output: Intake and Output for Last 24 Hours 04/08/25 04/09/25 04/10/25 23:59 23:59 23:59 Intake Total 440 / 440 Output Total 425 / 725 2600 / 2900 600 / 600 Balance 15 / -285 -2600 / -2900 -600 / -600 Lab / Micro Data 04/08/25 06:02 04/08/25 06:02 Radiography Diagnostic Testing: Radiology Impression Chest X-Ray 04/10/25 04:46 IMPRESSION: Decreased minimal left apical pneumothorax. Unchanged left apical thoracostomy pleural drainage catheter. Unchanged emphysema. Unchanged blunting of the costophrenic angles, probably adhesions. Reading Location: [place] [address] Physical Exam Resp normal respiratory effort and clear to auscultation bilaterally Resp Narrative: Left chest- tube intact. No air leak noted. Chest tube removed and vaseline gauze applied along with multiple 4 x 4's and secured with silk tape. Assessment & Plan Assessment/Plan (1) Iatrogenic pneumothorax: PLAN: Plan I am following this patient in conjunction with Dr. Sanders. He has independently evaluated this patient. CXR this AM demonstrated minimal left apical pneumothorax Chest tube removed this morning Repeat CXR at noon Hopeful discharge pending CXR today We will continue to monitor this patient Charges/Coding Visit Charges Inpatient E&M: 20915 Subs Hosp L2 04/10/25 1012 Cosigner Signature (if applicable): CC: ~ Signed ADDENDUM by Dr. Ray Sanders MD on 04/10/25 at 1030 Addendum Patient seen and evaluated on rounds this morning along with Padma Lemus. Patient denies chest pains or shortness of breath. No airleak noted. There is possibly trace residual pneumothorax.Chest tube was removed without difficulty. Will repeat chest x-ray around noon today. If this showsstability, he can likely be discharged to home later today. Patient was agreeable to this plan. 04/10/25 1030 Cosigner Signature (if applicable): cc: ~* Signed [facility]06-02-2025 Radiology Diagnostic study note [facility] Imaging Services [address] [place], [place] [address] Chest PA and Lateral MR#: [id number] Acct: [id number] Name: PATRICK ANDRES Jr. Rep #: [id number] 16 : 1955 M 70 From: Rock Copeland MD PCP: JESUS CALLAHAN MASTER DATA ANALYST-C Status: ADM I N Study:Chest PA and Lateral Date of Exam: 04/10/25 Exam# [id number] Ordering Dr: St esther Sanders MD PROCEDURE: CHEST PA AND LATERAL 04/10/2025 REASON FOR EXAM: PTX TECHNIQUE: Frontal and lateral views of the chest. COMPARISON: 04/09/2025. FINDINGS: Decreased minimal left apical pneumothorax. Unchanged left apical thoracostomy pleural drainage catheter. Unchanged emphysema. Unchanged blunting of the costophrenic angles, probably adhesions. Unremarkable cardiac silhouette. Normal mediastinum and tomasz. Normal visualized pulmonary arteries. Atheromatous plaques of the visualized aortic arch and descending thoracic aorta. Diffuse spondylosis of the visualized thoracic spine. Normal visualized ribs, clavicles. Degenerative joint disease. There is no demonstrated abnormality of the visualized soft tissue structures ofthe upper abdomen. RAD/Chest PA and Lateral IMPRESSION: Decreased minimal left apical pneumothorax. Unchanged left apical thoracostomy pleural drainage catheter. Unchanged emphysema. Unchanged blunting of the costophrenic angles, probably adhesions. Reading Location: [place] [address] CC: Dr. Ray Sanders MD; JESUS CALLAHAN ~ Electronics Lead: Signed [facility]06-01-2025 Progress note Author Chuy Covarrubias [facility] Note Date/Time April 09, 2025 4:16p [facility] Medical Records Department [address] [place] [address] Progress Note - Hospitalist 04/09/25 1610 MR#: [id number] Acct: [id number] Name: PATRICK ANDRES Rep #:[id number] 92 : 1955 70 From: Chuy Galan PCP: JESUS CALLAHAN Status:ADM I N Location: [facility] NG879-2 Reason for Visit Reason for Visit: Diagnoses Postprocedural pneumothorax (04/07/25) Hypoxemia (04/07/25) Objective Data Objective Data Vital Signs: Vital Signs Temp Pulse Resp BP Pulse Ox O2 Del Method O2 Flow Rate 98.9 F 61 16 121/61 H 97 Room Air 2 04/09/25 09:51 04/09/25 09:51 04/09/25 09:51 04/09/25 09:51 04/09/25 09:51 04/09/25 09:51 04/08/25 14:25 Oxygen Flow Rate (L/min) 2 Oxygen Delivery Method Room Air Weight: 117 lb Body Mass Index (BMI) 20.0 Intake & Output: Intake and Output for Last 24 Hours 04/07/25 04/08/25 04/09/25 23:59 23:59 23:59 Intake Total 150 / 150 440 / 440 Output Total 250 / 250 425 / 725 1800 / 1800 Balance -100 / -100 15 / -285 -1800 / -1800 Lab / Micro Data 04/08/25 06:02 04/08/25 06:02 Radiography Diagnostic Testing: Radiology Impression Chest X-Ray 04/09/25 06:00 IMPRESSION: Suspect possible sliver of left upper lateral pneumothorax. Small caliber left apical chest tube again noted. Background of chronic appearing interstitial changes with emphysema and hyperinflation again noted. Reading Location: [facility] Physical Exam Narrative No acute symptoms. Repeat chest x-ray reviewed. Patient stated that he wants to go home Earlier, admitted with iatrogenic left pneumothorax after lung biopsy. Denies any chest pain. Mild chronic shortness of breath Physical exam General: Alert, Oriented x3, Cooperative. BMI 20.0 kg/m?. Mild protein caloriemalnutrition HEENT: Atraumatic, PERRLA, EOMI, Normocephalic. Oral: No Gingival or Mucosal Lesions/ Ulcerations Neck: Supple, No JVD, Negative Carotid Bruits Chest wall/Lungs: Air entry diminished in bilateral lungs. Left second ICS small bore chest tube. No airleak. Chest tube not connected with wall suction. Cardiovascular: Regular rate and rhythm, Normal S1,S2, No M/G/R Abdomen: Bowel Sounds Present, Soft, Non Tender, Non-Distended : No dysuria. No renal angle tenderness. No suprapubic tenderness. Extremities: No edema, Capillary Refill Less than 3 Seconds Skin: No rashes, No breakdown Musculoskeletal: No Tenderness to Palpation of Joints or Extremities Neurological: Cranial nerves II-XII grossly intact, DTR 2+/4. No acute focal neurological deficit. Psych/Mental Status: Normal Affect, Appropriate. Assessment & Plan Assessment/Plan (1) Iatrogenic pneumothorax: (2) Hypoxemia: PLAN: Plan #Left iatrogenic pneumothorax after lung biopsy * Patient came in today to have scheduled left lung nodule biopsy. This procedure was complicated by left pneumothorax * Had a small caliber chest tube inserted in the ED. * Follow-up chest x-ray showed that the left pneumothorax had resolved. Admit to [facility]. * Keep chest tube with oxygen for eval. Consult general surgery to help manage the chest tube. * Breathing treatments and bronchodilators. Currently on 5 L of oxygen. Titrate oxygen to maintain saturation above 90%. 04/08: No air leak observed. No respiratory distress. Chest tube management as per surgeon 04/09: No airleak. Repeat chest x-ray shows a small sliver of left upper lateral pneumothorax. Surgeons note reviewed. Patient agreed for keeping the chest tube until tomorrow morning and repeat another chest x-ray. If it remains stable then remove chest tube and obtain another chest x-ray tomorrow afternoon. Anticipating discharge tomorrow afternoon Small caliber left apical chest tube again noted. Background of chronic appearing interstitial changes with emphysema and hyperinflation again noted. Reading Location: [facility] #Hypoxia due to iatrogenic pneumothorax: Management as above. #BPH: on flomax #COPD: not in exacerbation. Breathing treatment with bronchodilators. #Right carotid artery stenosis: On aspirin and statin #Pulmonary nodule: s/p biopsy as above. DVT prophylaxis: Lovenox Code status: full code * Patient counseled extensively about different types of CODE STATUS including full code, DNR CCA and DNR CCA. * Patient elects to be full code. * Total utag-kk-fonu time 16 minutes. Charges/Coding Visit Charges Inpatient E&M: 42586 Subs Hosp L2 04/09/25 1616 <Electronically signed by Chuy Covarrubias MD> Cosigner Signature (if applicable): CC: ~ Signed [facility] Work Phone: 1(196) 857-139806-01-2025 Progress note Author Ray Sanders [facility] Note Date/Time April 09, 2025 2:23p m [facility] Medical Records Department [address] [place] [address] Progress Note - Surgery 04/09/25 1421 MR#: [id number] Acct: [id number] Name: PATRICK ANDRES Jr. Rep #:[id number] 65 : 1955 70 From: Ray Sanders MD PCP: JESUS CALLAHAN MASTER DATA ANALYST-C Status:ADM I N Location: [place] IX299-3 Subjective Subjective Patient seen and evaluated on rounds earlier today. Patient states that he is breathing well and denies any chest pains or discomfort. Chest x-ray this morning showed what appeared to be a sliver of residual apical pneumothorax. Noobvious air leak on exam. Objective Data Objective Data Vital Signs: Vital Signs Temp Pulse Resp BP Pulse Ox O2 Del Method O2 Flow Rate 98.9 F 61 16 121/61 H 97 Room Air 2 04/09/25 09:51 04/09/25 09:51 04/09/25 09:51 04/09/25 09:51 04/09/25 09:51 04/09/25 09:51 04/08/25 14:25 Oxygen Flow Rate (L/min) 2 Oxygen Delivery Method Room Air Weight: 117 lb Body Mass Index (BMI) 20.0 Intake & Output: Intake and Output for Last 24 Hours 04/07/25 04/08/25 04/09/25 23:59 23:59 23:59 Intake Total 150 / 150 440 / 440 Output Total 250 / 250 425 / 725 1800 / 1800 Balance -100 / -100 15 / -285 -1800 / -1800 Lab / Micro Data 04/08/25 06:02 04/08/25 06:02 Radiography Diagnostic Testing: Radiology Impression Chest X-Ray 04/09/25 06:00 IMPRESSION: Suspect possible sliver of left upper lateral pneumothorax. Small caliber left apical chest tube again noted. Background of chronic appearing interstitial changes with emphysema and hyperinflation again noted. Reading Location: [facility] Physical Exam Narrative He is alert and oriented x 3. No acute distress. Left-sided anterior chest tube still in place. No airleak in Pleur-evac Assessment & Plan Assessment/Plan (1) Iatrogenic pneumothorax: PLAN: Plan Patient is a 70-year-old male with a left pneumothorax following left-sided lungbiopsy. He had a similar pneumothorax a few years ago also following a lung biopsy. Chest x-ray this morning showed a sliver of residual pneumothorax whileon waterseal. There is no airleak. I had a discussion with the patient regarding options of removing the chest tube today versus keeping the chest tubeuntil tomorrow morning and repeating another chest x-ray. We have mutually decided to keep the chest tube in place today and get a chest x-ray very early tomorrow morning. If this appears stable or resolved, we will remove chest tubeand obtain another chest x-ray midday tomorrow. Hopefully no residual pneumothorax will be present and we could possibly get him discharged to home sometime tomorrow afternoon. He is agreeable to this plan. Charges/Coding Visit Charges Inpatient E&M: 33545 Subs Hosp L2 04/09/25 1423 <Electronically signed by Ray Sanders MD> Cosigner Signature (if applicable): CC: ~ Signed [facility] Work Phone: 1(224) 134-509606-01-2025 Progress note [facility] Medical Records Department [address] [place] [address] Progress Note - Hospitalist 04/09/25 1610 MR#: [id number] Acct: [id number] Name: MCKENNASOUMYA Jr. Rep #:[id number] 92 : 1955 70 From: Chuy Galan PCP: JESUS CALLAHAN Status:ADM I N Location: [place] [address] Reason for Visit Reason for Visit: Diagnoses Postprocedural pneumothorax (04/07/25) Hypoxemia (04/07/25) Objective Data Objective Data Vital Signs: Vital Signs Temp Pulse Resp BP Pulse Ox O2 Del Method O2 Flow Rate 98.9 F 61 16 121/61 H 97 Room Air 2 04/09/25 09:51 04/09/25 09:51 04/09/25 09:51 04/09/25 09:51 04/09/25 09:51 04/09/25 09:51 04/08/25 14:25 Oxygen Flow Rate (L/min) 2 Oxygen Delivery Method Room Air Weight: 117 lb Body Mass Index (BMI) 20.0 Intake & Output: Intake and Output for Last 24 Hours 04/07/25 04/08/25 04/09/25 23:59 23:59 23:59 Intake Total 150 / 150 440 / 440 Output Total 250 / 250 425 / 725 1800 / 1800 Balance -100 / -100 15 / -285 -1800 / -1800 Lab / Micro Data 04/08/25 06:02 04/08/25 06:02 Radiography Diagnostic Testing: Radiology Impression Chest X-Ray 04/09/25 06:00 IMPRESSION: Suspect possible sliver of left upper lateral pneumothorax. Small caliber left apical chest tube again noted. Background of chronic appearing interstitial changes with emphysema and hyperinflation again noted. Reading Location: [facility] Physical Exam Narrative No acute symptoms. Repeat chest x-ray reviewed. Patient stated that he wants to go home Earlier, admitted with iatrogenic left pneumothorax after lung biopsy. Denies any chest pain. Mild chronic shortness of breath Physical exam General: Alert, Oriented x3, Cooperative. BMI 20.0 kg/m?. Mild protein caloriemalnutrition HEENT: Atraumatic, PERRLA, EOMI, Normocephalic. Oral: No Gingival or Mucosal Lesions/ Ulcerations Neck: Supple, No JVD, Negative Carotid Bruits Chest wall/Lungs: Air entry diminished in bilateral lungs. Left second ICS small bore chest tube. No airleak. Chest tube not connected with wall suction. Cardiovascular: Regular rate and rhythm, Normal S1,S2, No M/G/R Abdomen: Bowel Sounds Present, Soft, Non Tender, Non-Distended : No dysuria. No renal angle tenderness. No suprapubic tenderness. Extremities: No edema, Capillary Refill Less than 3 Seconds Skin: No rashes, No breakdown Musculoskeletal: No Tenderness to Palpation of Joints or Extremities Neurological: Cranial nerves II-XII grossly intact, DTR 2+/4. No acute focal neurological deficit. Psych/Mental Status: Normal Affect, Appropriate. Assessment & Plan Assessment/Plan (1) Iatrogenic pneumothorax: (2) Hypoxemia: PLAN: Plan #Left iatrogenic pneumothorax after lung biopsy * Patient came in today to have scheduled left lung nodule biopsy. This procedure was complicated by left pneumothorax * Had a small caliber chest tube inserted in the ED. * Follow-up chest x-ray showed that the left pneumothorax had resolved. Admit to [facility]. * Keep chest tube with oxygen for eval. Consult general surgery to help manage the chest tube. * Breathing treatments and bronchodilators. Currently on 5 L of oxygen. Titrate oxygen to maintain saturation above 90%. 04/08: No air leak observed. No respiratory distress. Chest tube management as per surgeon 04/09: No airleak. Repeat chest x-ray shows a small sliver of left upper lateral pneumothorax. Surgeons note reviewed. Patient agreed for keeping the chest tube until tomorrow morning and repeat another chest x-ray. If it remains stable then remove chest tube and obtain another chest x-ray tomorrow afternoon. Anticipating discharge tomorrow afternoon Small caliber left apical chest tube again noted. Background of chronic appearing interstitial changes with emphysema and hyperinflation again noted. Reading Location: [id number] #Hypoxia due to iatrogenic pneumothorax: Management as above. #BPH: on flomax #COPD: not in exacerbation. Breathing treatment with bronchodilators. #Right carotid artery stenosis: On aspirin and statin #Pulmonary nodule: s/p biopsy as above. DVT prophylaxis: Lovenox Code status: full code * Patient counseled extensively about different types of CODE STATUS including full code, DNR CCA and DNR CCA. * Patient elects to be full code. * Total bhqj-rc-gutg time 16 minutes. Charges/Coding Visit Charges Inpatient E&M: 80987 Subs Hosp L2 04/09/25 1616 Cosigner Signature (if applicable): CC: ~ Signed [facility]06-01-2025 Progress note [facility] Medical Records Department [address] [place] [address] Progress Note - Surgery 04/09/25 1421 MR#: [id number] Acct: [id number] Name: MCKENNAPATRICK Jr. Rep #:[id number] : 1955 70 From: Ray Sanders MD PCP: JESUS CALLAHAN MASTER DATA ANALYST-C Status:ADM I N Location: [place] [address] Subjective Subjective Patient seen and evaluated on rounds earlier today. Patient states that he is breathing well and denies any chest pains or discomfort. Chest x-ray this morning showed what appeared to be a sliver of residual apical pneumothorax. Noobvious air leak on exam. Objective Data Objective Data Vital Signs: Vital Signs Temp Pulse Resp BP Pulse Ox O2 Del Method O2 Flow Rate 98.9 F 61 16 121/61 H 97 Room Air 2 04/09/25 09:51 04/09/25 09:51 04/09/25 09:51 04/09/25 09:51 04/09/25 09:51 04/09/25 09:51 04/08/25 14:25 Oxygen Flow Rate (L/min) 2 Oxygen Delivery Method Room Air Weight: 117 lb Body Mass Index (BMI) 20.0 Intake & Output: Intake and Output for Last 24 Hours 04/07/25 04/08/25 04/09/25 23:59 23:59 23:59 Intake Total 150 / 150 440 / 440 Output Total 250 / 250 425 / 725 1800 / 1800 Balance -100 / -100 15 / -285 -1800 / -1800 Lab / Micro Data 04/08/25 06:02 04/08/25 06:02 Radiography Diagnostic Testing: Radiology Impression Chest X-Ray 04/09/25 06:00 IMPRESSION: Suspect possible sliver of left upper lateral pneumothorax. Small caliber left apical chest tube again noted. Background of chronic appearing interstitial changes with emphysema and hyperinflation again noted. Reading Location: [id number] Physical Exam Narrative He is alert and oriented x 3. No acute distress. Left-sided anterior chest tube still in place. No airleak in Pleur-evac Assessment & Plan Assessment/Plan (1) Iatrogenic pneumothorax: PLAN: Plan Patient is a 70-year-old male with a left pneumothorax following left-sided lungbiopsy. He had a similar pneumothorax a few years ago also following a lung biopsy. Chest x-ray this morning showed a sliver of residual pneumothorax whileon waterseal. There is no airleak. I had a discussion with the patient regarding options of removing the chest tube today versus keeping the chest tubeuntil tomorrow morning and repeating another chest x-ray. We have mutually decided to keep the chest tube in place today and get a chest x-ray very early tomorrow morning. If this appears stable or resolved, we will remove chest tubeand obtain another chest x-ray midday tomorrow. Hopefully no residual pneumothorax will be present and we could possibly get him discharged to home sometime tomorrow afternoon. He is agreeable to this plan. Charges/Coding Visit Charges Inpatient E&M: 47372 Subs Hosp L2 04/09/25 1423 Cosigner Signature (if applicable): CC: ~ Signed [facility]06-01-2025 Radiology Diagnostic study note [facility] Imaging Services [address] [place] [address] Chest PA and Lateral MR#: [id number] Acct: [id number] Name: PATRICK ANDRES Jr. Rep #: [id number] 25 : 1955 M 70 From: Robb Cuevas MD PCP: JESUS CALLAHAN Status: ADM I N Study:Chest PA and Lateral Date of Exam: 04/09/25 Exam# [id number] Ordering Dr: St esther Sanders MD PROCEDURE: CHEST PA AND LATERAL 04/09/2025 REASON FOR EXAM: PTX TECHNIQUE: Frontal and lateral views of the chest. 2 laterals and frontal, 3 total images COMPARISON: 04/08/2025 FINDINGS: See below RAD/Chest PA and Lateral IMPRESSION: Suspect possible sliver of left upper lateral pneumothorax. Small caliber left apical chest tube again noted. Background of chronic appearing interstitial changes with emphysema and hyperinflation again noted. Reading Location: [facility] CC: Dr. Ray Sanders MD; JESUS CALLAHAN ~ Electronics Lead: Signed [facility]05-31-2025 Progress note Author Chuy Covarrubias [facility] Note Date/Time April 08, 2025 5:13p m [facility] Medical Records Department [address] [place] [address] Progress Note - Hospitalist 04/08/25 0751 MR#: [id number] Acct: [id number] Name: PATRICK ANDRES Jr. Rep #:[id number] : 1955 70 From: Chuy Galan PCP: JESUS CALLAHAN Status:ADM I N Location: [place] [address] Reason for Visit Reason for Visit: Diagnoses Postprocedural pneumothorax (04/07/25) Hypoxemia (04/07/25) Objective Data Objective Data Vital Signs: Vital Signs Temp Pulse Resp BP Pulse Ox O2 Del Method O2 Flow Rate 98.3 F 60 17 98/57 L 100 Nasal Cannula 2 04/08/25 02:04/08/25 07:14 04/08/25 02:25 04/08/25 02:30 04/08/25 02:25 04/08/25 02:04/08/25 02:25 Oxygen Flow Rate (L/min) 2 Oxygen Delivery Method Nasal Cannula Weight: 117 lb Body Mass Index (BMI) 20.0 Intake & Output: Intake and Output for Last 24 Hours 04/06/25 04/07/25 04/08/25 23:59 23:59 23:59 Intake Total 150 / 150 200 / 200 Output Total 250 / 250 200 / 200 Balance -100 / -100 0 / 0 Lab / Micro Data 04/08/25 06:02 04/08/25 06:02 Labs: Laboratory Results - last 24 hr 04/07/25 11:21: WBC 8.1, RBC 4.76, Hgb 14.5, Hct 41.7, MCV 87.6, MCH 30.5, MCHC 34.8, RDW Std Deviation 46.2 H, RDW Coeff of [place] 14.3, Plt Count 309, MPV 10.0, Immature Gran % (Auto) 0.500, Neut % (Auto) 66.2, Lymph % (Auto) 20.0, [place] % (Auto) 12.0 H, Eos % (Auto) 0.7, Baso % (Auto) 0.6, Absolute Neuts (auto) 5.4, Absolute Lymphs (auto) 1.62, Nucleated RBC % 0, Sodium 132 L, Potassium 4.5, Chloride 100, Carbon Dioxide 21.1, Anion Gap 11, BUN 8, Creatinine 0.62 L, EstimCreat Clear Calc 61.74, Est GFR (MDRD) Non-Af 103, BUN/Creatinine Ratio 12.7, Glucose 84, Calcium 8.9 04/08/25 06:02: WBC 6.4, RBC 4.49 L, Hgb 13.9, Hct 40.2, MCV 89.5, MCH 31.0, MCHC 34.6, RDW Std Deviation 47.3 H, RDW Coeff of [place] 14.4, Plt Count 286, MPV 10.2, Immature Gran % (Auto) 0.300, Neut % (Auto) 51.6, Lymph % (Auto) 30.2, [place] % (Auto) 14.3 H, Eos % (Auto) 3.1, Baso % (Auto) 0.5, Absolute Neuts (auto) 3.3, Absolute Lymphs (auto) 1.94, Nucleated RBC % 0, Sodium 133, Potassium 4.3, Chloride 100, Carbon Dioxide 23.3, Anion Gap 10, BUN 11, Creatinine 0.70, Estim Creat Clear Calc 64.49, Est GFR (MDRD) Non-Af 99, BUN/Creatinine Ratio 15.4, Glucose 82, Calcium 8.9 Radiography Diagnostic Testing: Radiology Impression Chest X-Ray 04/07/25 12:31 IMPRESSION: Status post small caliber chest tube placement for treatment of a left pneumothorax. The left pneumothorax has resolved. Reading Location: [facility] Chest X-Ray 04/08/25 06:25 IMPRESSION: Left apical small caliber chest tube again seen not significantly changed. No pneumothorax definitely identified. Reading Location: [facility] Physical Exam Narrative Admitted with iatrogenic left pneumothorax after lung biopsy. Denies any chest pain. Mild chronic shortness of breath Physical exam General: Alert, Oriented x3, Cooperative. BMI 20.0 kg/m?. Mild protein caloriemalnutrition HEENT: Atraumatic, PERRLA, EOMI, Normocephalic. Oral: No Gingival or Mucosal Lesions/ Ulcerations Neck: Supple, No JVD, Negative Carotid Bruits Chest wall/Lungs: Air entry diminished in bilateral lungs. Left second ICS small bore chest tube. No airleak. Chest tube not connected with wall suction. Cardiovascular: Regular rate and rhythm, Normal S1,S2, No M/G/R Abdomen: Bowel Sounds Present, Soft, Non Tender, Non-Distended : No dysuria. No renal angle tenderness. No suprapubic tenderness. Extremities: No edema, Capillary Refill Less than 3 Seconds Skin: No rashes, No breakdown Musculoskeletal: No Tenderness to Palpation of Joints or Extremities Neurological: Cranial nerves II-XII grossly intact, DTR 2+/4. No acute focal neurological deficit. Psych/Mental Status: Normal Affect, Appropriate. Assessment & Plan Assessment/Plan (1) Iatrogenic pneumothorax: (2) Hypoxemia: PLAN: Plan #Left iatrogenic pneumothorax after lung biopsy * Patient came in today to have scheduled left lung nodule biopsy. This procedure was complicated by left pneumothorax * Had a small caliber chest tube inserted in the ED. * Follow-up chest x-ray showed that the left pneumothorax had resolved. Admit to [facility]. * Keep chest tube with oxygen for eval. Consult general surgery to help manage the chest tube. * Breathing treatments and bronchodilators. Currently on 5 L of oxygen. Titrate oxygen to maintain saturation above 90%. 04/08: No air leak observed. No respiratory distress. Chest tube management as per surgeon #Hypoxia due to iatrogenic pneumothorax: Management as above. #BPH: on flomax #COPD: not in exacerbation. Breathing treatment with bronchodilators. #Right carotid artery stenosis: On aspirin and statin #Pulmonary nodule: s/p biopsy as above. DVT prophylaxis: Lovenox Code status: full code * Patient counseled extensively about different types of CODE STATUS including full code, DNR CCA and DNR CCA. * Patient elects to be full code. * Total xmbm-sr-yzra time 16 minutes. Charges/Coding Visit Charges Inpatient E&M: 96218 Subs Hosp L2 04/08/25 171 <Electronically signed by Chuy Covarrubias MD> Cosigner Signature (if applicable): CC: ~ Signed [facility] Work Phone: 1(814) 393-591905-31-2025 Progress note [facility] Medical Records Department [address] [place] [address] Progress Note - Hospitalist 04/08/25 0751 MR#: [id number] Acct: [id number] Name: MCKENNASOUMYA Jr. Rep #:[id number] 43 : 1955 70 From: Chuy Galan PCP: JESUS CALLAHAN MASTER DATA ANALYST-C Status:ADM I N Location: [place] [address] Reason for Visit Reason for Visit: Diagnoses Postprocedural pneumothorax (04/07/25) Hypoxemia (04/07/25) Objective Data Objective Data Vital Signs: Vital Signs Temp Pulse Resp BP Pulse Ox O2 Del Method O2 Flow Rate 98.3 F 60 17 98/57 L 100 Nasal Cannula 2 04/08/25 02:25 04/08/25 07:14 04/08/25 02:25 04/08/25 02:30 04/08/25 02:25 04/08/25 02:04/08/25 02:25 Oxygen Flow Rate (L/min) 2 Oxygen Delivery Method Nasal Cannula Weight: 117 lb Body Mass Index (BMI) 20.0 Intake & Output: Intake and Output for Last 24 Hours 04/06/25 04/07/25 04/08/25 23:59 23:59 23:59 Intake Total 150 / 150 200 / 200 Output Total 250 / 250 200 / 200 Balance -100 / -100 0 / 0 Lab / Micro Data 04/08/25 06:02 04/08/25 06:02 Labs: Laboratory Results - last 24 hr 04/07/25 11:21: WBC 8.1, RBC 4.76, Hgb 14.5, Hct 41.7, MCV 87.6, MCH 30.5, MCHC 34.8, RDW Std Deviation 46.2 H, RDW Coeff of [place] 14.3, Plt Count 309, MPV 10.0, Immature Gran % (Auto) 0.500, Neut % (Auto) 66.2, Lymph % (Auto) 20.0, [place] % (Auto) 12.0 H, Eos % (Auto) 0.7, Baso % (Auto) 0.6, Absolute Neuts (auto) 5.4, Absolute Lymphs (auto) 1.62, Nucleated RBC % 0, Sodium 132 L, Potassium 4.5, Chloride 100, Carbon Dioxide 21.1, Anion Gap 11, BUN 8, Creatinine 0.62 L, EstimCreat Clear Calc 61.74, Est GFR (MDRD) Non-Af 103, BUN/Creatinine Ratio 12.7, Glucose 84, Calcium 8.9 04/08/25 06:02: WBC 6.4, RBC 4.49 L, Hgb 13.9, Hct 40.2, MCV 89.5, MCH 31.0, MCHC 34.6, RDW Std Deviation 47.3 H, RDW Coeff of [place] 14.4, Plt Count 286, MPV 10.2, Immature Gran % (Auto) 0.300, Neut % (Auto) 51.6, Lymph % (Auto) 30.2, [place] % (Auto) 14.3 H, Eos % (Auto) 3.1, Baso % (Auto) 0.5, Absolute Neuts (auto) 3.3, Absolute Lymphs (auto) 1.94, Nucleated RBC % 0, Sodium 133, Potassium 4.3, Chloride 100, Carbon Dioxide 23.3, Anion Gap 10, BUN 11, Creatinine 0.70, Estim Creat Clear Calc 64.49, Est GFR (MDRD) Non-Af 99, BUN/Creatinine Ratio 15.4, Glucose 82, Calcium 8.9 Radiography Diagnostic Testing: Radiology Impression Chest X-Ray 04/07/25 12:31 IMPRESSION: Status post small caliber chest tube placement for treatment of a left pneumothorax. The left pneumothorax has resolved. Reading Location: [facility] Chest X-Ray 04/08/25 06:25 IMPRESSION: Left apical small caliber chest tube again seen not significantly changed. No pneumothorax definitely identified. Reading Location: [facility] Physical Exam Narrative Admitted with iatrogenic left pneumothorax after lung biopsy. Denies any chest pain. Mild chronic shortness of breath Physical exam General: Alert, Oriented x3, Cooperative. BMI 20.0 kg/m?. Mild protein caloriemalnutrition HEENT: Atraumatic, PERRLA, EOMI, Normocephalic. Oral: No Gingival or Mucosal Lesions/ Ulcerations Neck: Supple, No JVD, Negative Carotid Bruits Chest wall/Lungs: Air entry diminished in bilateral lungs. Left second ICS small bore chest tube. No airleak. Chest tube not connected with wall suction. Cardiovascular: Regular rate and rhythm, Normal S1,S2, No M/G/R Abdomen: Bowel Sounds Present, Soft, Non Tender, Non-Distended : No dysuria. No renal angle tenderness. No suprapubic tenderness. Extremities: No edema, Capillary Refill Less than 3 Seconds Skin: No rashes, No breakdown Musculoskeletal: No Tenderness to Palpation of Joints or Extremities Neurological: Cranial nerves II-XII grossly intact, DTR 2+/4. No acute focal neurological deficit. Psych/Mental Status: Normal Affect, Appropriate. Assessment & Plan Assessment/Plan (1) Iatrogenic pneumothorax: (2) Hypoxemia: PLAN: Plan #Left iatrogenic pneumothorax after lung biopsy * Patient came in today to have scheduled left lung nodule biopsy. This procedure was complicated by left pneumothorax * Had a small caliber chest tube inserted in the ED. * Follow-up chest x-ray showed that the left pneumothorax had resolved. [facility] * Keep chest tube with oxygen for eval. Consult general surgery to help manage the chest tube. * Breathing treatments and bronchodilators. Currently on 5 L of oxygen. Titrate oxygen to maintain saturation above 90%. 04/08: No air leak observed. No respiratory distress. Chest tube management as per surgeon #Hypoxia due to iatrogenic pneumothorax: Management as above. #BPH: on flomax #COPD: not in exacerbation. Breathing treatment with bronchodilators. #Right carotid artery stenosis: On aspirin and statin #Pulmonary nodule: s/p biopsy as above. DVT prophylaxis: Lovenox Code status: full code * Patient counseled extensively about different types of CODE STATUS including full code, DNR CCA and DNR CCA. * Patient elects to be full code. * Total wjta-pd-ozqz time 16 minutes. Charges/Coding Visit Charges Inpatient E&M: 44648 Subs Hosp L2 04/08/25 1713 Cosigner Signature (if applicable): CC: ~ Signed [facility]05-31-2025 Progress note Author Ray Sanders [facility] Note Date/Time April 08, 2025 5:54a m [facility] Medical Records Department [address] [place] [address] Progress Note - Surgery 04/08/25 0552 MR#: [id number] Acct: [id number] Name: PATRICK ANDRES Mago Bueno Rep #:[id number] : 1955 70 From: Ray Sanders MD PCP: JESUS CALLAHAN Status:ADM I N Location: [place] [address] Subjective Subjective Patient seen and evaluated on rounds this morning. He denies any new issues or problems overnight. He denies any chest pains or shortness of breath. He has not gone down for chest x-ray yet this morning Objective Data Objective Data Vital Signs: Vital Signs Temp Pulse Resp BP Pulse Ox O2 Del Method O2 Flow Rate 98.3 F 58 L 17 98/57 L 100 Nasal Cannula 2 04/08/25 02:04/08/25 02:04/08/25 02:04/08/25 02:04/08/25 02:04/08/25 02:04/08/25 02:25 Oxygen Flow Rate (L/min) 2 Oxygen Delivery Method Nasal Cannula Weight: 117 lb Body Mass Index (BMI) 20.0 Intake & Output: Intake and Output for Last 24 Hours 04/06/25 04/07/25 04/08/25 23:59 23:59 23:59 Intake Total 150 / 150 Output Total 250 / 250 Balance -100 / -100 Lab / Micro Data 04/07/25 11:21 04/07/25 11:21 Labs: Laboratory Results - last 24 hr 04/07/25 11:21: WBC 8.1, RBC 4.76, Hgb 14.5, Hct 41.7, MCV 87.6, MCH 30.5, MCHC 34.8, RDW Std Deviation 46.2 H, RDW Coeff of [place] 14.3, Plt Count 309, MPV 10.0, Immature Gran % (Auto) 0.500, Neut % (Auto) 66.2, Lymph % (Auto) 20.0, [place] % (Auto) 12.0 H, Eos % (Auto) 0.7, Baso % (Auto) 0.6, Absolute Neuts (auto) 5.4, Absolute Lymphs (auto) 1.62, Nucleated RBC % 0, Sodium 132 L, Potassium 4.5, Chloride 100, Carbon Dioxide 21.1, Anion Gap 11, BUN 8, Creatinine 0.62 L, EstimCreat Clear Calc 61.74, Est GFR (MDRD) Non-Af 103, BUN/Creatinine Ratio 12.7, Glucose 84, Calcium 8.9 Radiography Diagnostic Testing: Radiology Impression Chest X-Ray 04/07/25 12:31 IMPRESSION: Status post small caliber chest tube placement for treatment of a left pneumothorax. The left pneumothorax has resolved. Reading Location[facility] Physical Exam Narrative He is alert and oriented x 3. He is in no acute distress. Chest tube appears to be in place. I did not appreciate an air leak on evaluation. Scant output from chest tube Assessment & Plan Assessment/Plan (1) Iatrogenic pneumothorax: PLAN: Plan Patient is a 70-year-old male with a left iatrogenic pneumothorax following a lung biopsy performed yesterday. Recommend continuing chest tube to -20 suctionuntil chest x-ray is resulted today. If his pneumothorax remains resolved, would recommend switching his chest tube to waterseal and then repeating anotherchest x-ray in a.m. tomorrow. Will await chest x-ray results Charges/Coding Visit Charges Inpatient E&M: 29422 Subs Hosp L3 04/08/25 0554 <Electronically signed by Ray Sanders MD> Cosigner Signature (if applicable): CC: ~ Signed [facility] Work Phone: 1(108) 328-252605-31-2025 Radiology Diagnostic study note [facility] Imaging Services [address] [place], [place] [address] Chest PA and Lateral MR#: [id number] Acct: [id number] Name: PATRICK ANDRES Rep #: [id number] 34 : 1955 M 70 From: Robb Cuevas MD PCP: JESUS CALLAHAN Status: ADM I N Study:Chest PA and Lateral Date of Exam: 04/08/25 Exam# [id number] Ordering Dr: St esther Sanders MD PROCEDURE: CHEST PA AND LATERAL 04/08/2025 REASON FOR EXAM: PTX TECHNIQUE: Frontal and lateral views of the chest. Frontal and 2 lateral views, 3 total images COMPARISON: 04/07/2025 FINDINGS: Left apical small caliber chest tube again seen not significantly changed. No pneumothorax definitely identified. Bilateral pulmonary emphysema and background of chronic interstitial changes with hyperinflation again noted.Left perihilar ill-defined opacity not significantly changed. No pleural effusion identified. RAD/Chest PA and Lateral IMPRESSION: Left apical small caliber chest tube again seen not significantly changed. No pneumothorax definitely identified. Reading Location: [id number] CC: Dr. Ray Sanders MD; JESUSANA CALLAHAN ~ Electronics Lead: Signed [facility]05-31-2025 Progress note [facility] Medical Records Department [address] [place] [address] Progress Note - Surgery 04/08/25 0552 MR#: [id number] Acct: [id number] Name: PATRICK ANDRES Jr. Rep #:[id number] : 1955 70 From: Ray Sanders MD PCP: JESUS CALLAHAN Status:ADM I N Location: [place] [address] Subjective Subjective Patient seen and evaluated on rounds this morning. He denies any new issues or problems overnight. He denies any chest pains or shortness of breath. He has not gone down for chest x-ray yet this morning Objective Data Objective Data Vital Signs: Vital Signs Temp Pulse Resp BP Pulse Ox O2 Del Method O2 Flow Rate 98.3 F 58 L 17 98/57 L 100 Nasal Cannula 2 04/08/25 02:25 04/08/25 02:25 04/08/25 02:25 04/08/25 02:30 04/08/25 02:25 04/08/25 02:25 04/08/25 02:25 Oxygen Flow Rate (L/min) 2 Oxygen Delivery Method Nasal Cannula Weight: 117 lb Body Mass Index (BMI) 20.0 Intake & Output: Intake and Output for Last 24 Hours 04/06/25 04/07/25 04/08/25 23:59 23:59 23:59 Intake Total 150 / 150 Output Total 250 / 250 Balance -100 / -100 Lab / Micro Data 04/07/25 11:21 04/07/25 11:21 Labs: Laboratory Results - last 24 hr 04/07/25 11:21: WBC 8.1, RBC 4.76, Hgb 14.5, Hct 41.7, MCV 87.6, MCH 30.5, MCHC 34.8, RDW Std Deviation 46.2 H, RDW Coeff of [place] 14.3, Plt Count 309, MPV 10.0, Immature Gran % (Auto) 0.500, Neut % (Auto) 66.2, Lymph % (Auto) 20.0, [place] % (Auto) 12.0 H, Eos % (Auto) 0.7, Baso % (Auto) 0.6, Absolute Neuts (auto) 5.4, Absolute Lymphs (auto) 1.62, Nucleated RBC % 0, Sodium 132 L, Potassium 4.5, Chloride 100, Carbon Dioxide 21.1, Anion Gap 11, BUN 8, Creatinine 0.62 L, EstimCreat Clear Calc 61.74, Est GFR (MDRD) Non-Af 103, BUN/Creatinine Ratio 12.7, Glucose 84, Calcium 8.9 Radiography Diagnostic Testing: Radiology Impression Chest X-Ray 04/07/25 12:31 IMPRESSION: Status post small caliber chest tube placement for treatment of a left pneumothorax. The left pneumothorax has resolved. Reading Location: [facility] Physical Exam Narrative He is alert and oriented x 3. He is in no acute distress. Chest tube appears to be in place. I did not appreciate an air leak on evaluation. Scant output from chest tube Assessment & Plan Assessment/Plan (1) Iatrogenic pneumothorax: PLAN: Plan Patient is a 70-year-old male with a left iatrogenic pneumothorax following a lung biopsy performedyesterday. Recommend continuing chest tube to -20 suctionuntil chest x-ray is resulted today. If his pneumothorax remains resolved, would recommend switching his chest tube to waterseal and then repea ting anotherchest x-ray in a.m. tomorrow. Will await chest x-ray results Charges/Coding Visit Charges Inpatient E&M: 55197 Subs Hosp L3 04/08/25 0554 Cosigner Signature (if applicable): CC: ~ Signed [facility]05-30-2025 History and physical note Author Michelle Do [facility] Note Date/Time April 07, 2025 5:52p m [facility] Medical Records Department [address] [place] [address] H&P Exam - Hospitalist 04/07/25 1258 MR#: [id number] Acct: [id number] Name: MCKENNASOUMYA Jr. Rep #:[id number] : 1955 70 From: Michelle Do MD PCP: JESUS CALLAHAN MASTER DATA ANALYSTMadhavC Status:ADM I N Location: [facility] [facility] [place] CI653-1 HPI - General General Date of Admission: 04/07/25 Date of Service: 04/07/25 Chief Complaint: shortness of breath HPI Narrative PATRICK ANDRES, is a 70 M with a PMH as outlined who presents via the ED On 04/07/2025 with a complaint of shortness of breath. HE came in for a scheduled outpatient lung biopsy, and sustained a pneumothorax as a complication. He developed shortness of breath so was sent over to the ED. He denied any cough, chest pain, palpitations, dizziness, nausea, vomiting or any other symptoms. Review of systems is otherwise negative. VItals in the ED were BP of 137/69, IL of 65, RR of 28 and oxygen sats of 99% on5L of oxygen. CBC showed hemoglobin of 14.5 with WBC of 8.1 and platelets of 309. Chemistry showed sodium of 132 with potassium of 4.5 and bicarb of 21.1. Anion gap is 11. Creatinine was 0.62. Chest x-ray after he had chest tube inserted showed s/p small caliber chest tube placement for treatment of left pneumothorax. Left pneumothorax has resolved. He has been admitted to be managed for iatrogenic pneumothorax after lung biopsy. PENDING SALE TO [facility] Medical History BPH without urinary obstruction COPD (chronic obstructive pulmonary disease) Orthostatic hypotension Pulmonary nodules Hyponatremia Syncope and collapse Hypokalemia Chronic alcohol abuse Stenosis of right internal carotid artery Abnormal echocardiogram Mass of left lung Vision loss of left eye Smoker Hypertension Nicotine dependence, cigarettes, uncomplicated Home Medications ?Medication ?Instructions ?Recorded ?Last Taken ?Type tamsulosin 0.4 mg capsule 0.4 mg PO DAILY 12/29/23 History albuterol sulfate 90 mcg/actuation 1 puff inhalation Q 4H PRN 12/09/24 Unknown History aerosol inhaler hydroxyzine HCl 50 mg tablet 50 mg PO QHS 12/26/24 History aspirin 81 mg tablet,delayed 81 mg PO DAILY 04/07/25 0 04/06/25 History release (Adult Low Dose Aspirin) atorvastatin 40 mg tablet (Lipitor) 40 mg PO QHS 04/0704/06/25 History glycopyrrolate 9 mcg-formoterol 2 puff inhalation Q12H 04/07/25 04/06/25 History 4.8 mcg HFA aerosol inhaler (Bevespi Aerosphere) Allergy/AdvReac Type Severity Reaction Status Date / Time hydrochlorothiazide AdvReac hyponatremi Verified 04/07/25 10:46 a Family History Father Cancer Mother Diabetes Surgical History History of colonoscopy H/O vasectomy Social History household members: family housing: house current occupational status: retired Smoking Status: Current every day smoker tobacco type: cigarettes alcohol intake: current alcohol intake frequency: 3 or more drinks per day Alcohol type: beer details: up to 12 beers daily substance use type: does not use caffeine: Yes ROS Constitutional Constitutional: Denies anorexia, chills, fatigue, fever(s), malaise or weakness Eyes Eyes: Denies change in vision ENT HEENT: Denies dysphagia, headache(s) or sore throat Cardiovascular Cardiovascular: Reports dyspnea on exertion; Denies chest pain, edema, lightheadedness, orthopnea, palpitations, paroxysmal nocturnal dyspnea, rapid heart rate or syncope Respiratory/Chest Respiratory/Chest: Reports dyspnea, shortness of breath at rest and shortness ofbreath with exertion; Denies cough, excessive phlegm production, hemoptysis, productive cough or wheezing Gastrointestinal Gastrointestinal: Denies abdominal pain, diarrhea, dyspepsia, nausea or vomiting Genitourinary Genitourinary: Denies burning urination or dysuria Musculoskeletal Musculoskeletal: Denies arthralgias Neurologic Neurologic: Denies confusion, dizziness, focal weakness, headache(s), seizure- like activity or seizures Psychiatric Psychiatric: Denies anxiety or depression Endocrine Endocrinology: Denies change in body appearance Vital Signs Vital Signs Vital Signs: 04/07/25 10:47 04/07/25 11:45 04/07/25 12:00 Temperature 97.9 F Temperature Source Oral Pulse Rate 82 86 Respiratory Rate 28 H 32 H Respiratory Effort Short of Breath Labored Respiratory Depth Normal Respiratory Pattern Normal Blood Pressure 137/69 H Blood Pressure Mean 91 Pulse Ox 94 99 Oxygen Delivery Method Nasal Cannula Nasal Cannula Nasal Cannula Oxygen Flow Rate (L/min) 5 5 04/07/25 12:00 Temperature Temperature Source Pulse Rate 65 Respiratory Rate 28 H Respiratory Effort Respiratory Depth Respiratory Pattern Blood Pressure 137/69 H Blood Pressure Mean 91 Pulse Ox 99 Oxygen Delivery Method Room Air Oxygen Flow Rate (L/min) Weight Weight: 111 lb 15.917 oz Body Mass Index (BMI) 19.2 Physical Exam Const alert, oriented x3 and no apparent distress General Appearance: cooperative HEENT normocephalic, head/scalp atraumatic, hearing grossly normal bilaterally and moist oral mucous membranes Mouth: oral and palatal mucosa normal Eyes PERRL, EOMs intact bilaterally and conjunctivae normal Neck no lymphadenopathy and supple Resp Resp Narrative: mildly diminished breath sounds bibasally, no wheezes or crackles. On 5L of oxygen by nasal canula. small chest tube in situ in anterior part of left side of chest Cardio regular rate, regular rhythm, S1 normal heart sound, S2 normal heart sound and no murmurs GI normal to inspection, nondistended, normoactive bowel sounds, soft to palpation,non-tender and non-distended Extremity normal to inspection, full ROM and no clubbing, cyanosis or edema Neuro oriented x3, CN's II-XII intact bilaterally, moves all extremities and no focal motor deficits Sensorium / Orientation: awake and alert Motor Exam: strength 5/5 throughout Psych affect normal Results Lab / Micro Data 04/07/25 11:21 04/07/25 11:21 Labs: Laboratory Results - last 24 hr 04/07/25 11:21: WBC 8.1, RBC 4.76, Hgb 14.5, Hct 41.7, MCV 87.6, MCH 30.5, MCHC 34.8, RDW Std Deviation 46.2 H, RDW Coeff of [place] 14.3, Plt Count 309, MPV 10.0, Immature Gran % (Auto) 0.500, Neut % (Auto) 66.2, Lymph % (Auto) 20.0, [place] % (Auto) 12.0 H, Eos % (Auto) 0.7, Baso % (Auto) 0.6, Absolute Neuts (auto) 5.4, Absolute Lymphs (auto) 1.62, Nucleated RBC % 0, Sodium 132 L, Potassium 4.5, Chloride 100, Carbon Dioxide 21.1, Anion Gap 11, BUN 8, Creatinine 0.62 L, EstimCreat Clear Calc 61.74, Est GFR (MDRD) Non-Af 103, BUN/Creatinine Ratio 12.7, Glucose 84, Calcium 8.9 Imaging Radiology Impression Chest X-Ray 04/07/25 12:31 IMPRESSION: Status post small caliber chest tube placement for treatment of a left pneumothorax. The left pneumothorax has resolved. Reading Location: [place] [address] Assessment & Plan Assessment/Plan (1) Iatrogenic pneumothorax: (2) Hypoxemia: PLAN: Plan #Left iatrogenic pneumothorax after lung biopsy * Patient came in today to have scheduled left lung nodule biopsy. This procedure was complicated by left pneumothorax * Had a small caliber chest tube inserted in the ED. * Follow-up chest x-ray showed that the left pneumothorax had resolved. Admit to [facility]. * Keep chest tube with oxygen for eval. Consult general surgery to help manage the chest tube. * Breathing treatments and bronchodilators. Currently on 5 L of oxygen. Titrate oxygen to maintain saturation above 90%. * #Hypoxia due to iatrogenic pneumothorax: Management as above. #BPH: on flomax #COPD: not in exacerbation. Breathing treatment with bronchodilators. #Right carotid artery stenosis: On aspirin and statin #Pulmonary nodule: s/p biopsy as above. DVT prophylaxis: Lovenox Code status: full code * Patient counseled extensively about different types of CODE STATUS including full code, DNR CCA and DNR CCA. * Patient elects to be full code. * Total ocsx-xe-zept time 16 minutes. Charges/Coding Visit Charges Inpatient E&M: 01800 Init Hosp L3 Procedures Hospitalists Procedures: 35125 Advncd Care Plan 30 Min 04/07/25 1752 <Electronically signed by Michelle Do MD> Cosigner Signature (if applicable): CC: Dr. Michelle Do MD; JESUS MASTER DATA ANALYST-C [place]~ Signed [facility] Work Phone: [phone]) 768-803205-30-2025 Consult note Author Ray Sanders [facility] Note Date/Time April 07, 2025 4:48p m [facility] Medical Records Department [address] [place] [address] Consultation - Surgical 04/07/25 1643 MR#: [id number] Acct: [id number] Name: PATRICK ANDRES Jr. Rep #:[id number] : 1955 70 From: Ray Sanders MD PCP: JESUS CALLAHAN Status:ADM I N Location: [facility] [place] GS134-9 Assessment & Plan Assessment/Plan (1) Iatrogenic pneumothorax: PLAN: Plan The patient is a 70-year-old male who sustained a left pneumothorax following a left lung biopsy performed earlier today. Chest tube was successfully placed Jesus physician. His pneumothorax seems to be resolved. I have recommended that we keep him at suction at least overnight. Will get another chest x-ray in the morning. If his lung stays expanded, I would likely recommend placing him to waterseal provided that his airleak continues to remain resolved. I would recommend at least 24 hours of waterseal before removing chest tube. Will continue to follow along and advise accordingly. HPI Consult Data Date of Consult: 04/07/25 HPI Narrative Reason for Consultation: Iatrogenic pneumothorax HPI Narrative: PATRICK ANDRES, is a 70 M who underwent an elective left lung biopsy by radiology earlier today. Patient became acutely short of breath soon after the procedure. He was sent to the emergency room where he was seen evaluated by the ER staff. He was found to have a sizable left-sided pneumothorax. ER physician placed a small bore chest tube and successfully reexpanded the left lung. He was noted to have a positive airleak at that time. Patient was subsequently admitted to the medicine service and a surgical consult was obtained for chest tube management. Patient states that he is doing well currently. He denies any shortness of breath or chest pain. It sounds as though he had a previous left-sided pneumothorax about a year or so ago after a similar lung biopsy. Patient does have COPD. He does smoke. He states that he smokes about a pack and half cigarettes a day since he was about 15 or 16. He states that he is still currently smoking about a pack per day and sometimes 2 packs/day at times. PENDING SALE TO [facility] Medical History BPH without urinary obstruction COPD (chronic obstructive pulmonary disease) Orthostatic hypotension Pulmonary nodules Hyponatremia Syncope and collapse Hypokalemia Chronic alcohol abuse Stenosis of right internal carotid artery Abnormal echocardiogram Mass of left lung Vision loss of left eye Smoker Hypertension Nicotine dependence, cigarettes, uncomplicated Home Medications ?Medication ?Instructions ?Recorded ?Last Taken ?Type tamsulosin 0.4 mg capsule 0.4 mg PO DAILY 12/29/23 History albuterol sulfate 90 mcg/actuation 1 puff inhalation Q 4H PRN 12/09/24 Unknown History aerosol inhaler hydroxyzine HCl 50 mg tablet 50 mg PO QHS 12/26/24 History aspirin 81 mg tablet,delayed 81 mg PO DAILY 04/07/25 0 04/06/25 History release (Adult Low Dose Aspirin) atorvastatin 40 mg tablet (Lipitor) 40 mg PO QHS 04/0704/06/25 History glycopyrrolate 9 mcg-formoterol 2 puff inhalation Q12H 04/07/25 04/06/25 History 4.8 mcg HFA aerosol inhaler (Bevespi Aerosphere) Allergy/AdvReac Type Severity Reaction Status Date / Time hydrochlorothiazide AdvReac hyponatremi Verified 04/07/25 10:46 a Family History Father Cancer Mother Diabetes Surgical History History of colonoscopy H/O vasectomy Social History household members: family housing: house current occupational status: retired Smoking Status: Current every day smoker tobacco type: cigarettes alcohol intake: current alcohol intake frequency: 3 or more drinks per day Alcohol type: beer details: up to 12 beers daily substance use type: does not use caffeine: Yes Physical Exam Narrative He is alert and oriented x 3. He is in no acute distress. Left chest tube placed in the upper chest anteriorly. It is connected to suction. I do not appreciate an air leak at the present time. Lab / Micro Data 04/07/25 11:21 04/07/25 11:21 Labs: Laboratory Results - last 24 hr 04/07/25 11:21: WBC 8.1, RBC 4.76, Hgb 14.5, Hct 41.7, MCV 87.6, MCH 30.5, MCHC 34.8, RDW Std Deviation 46.2 H, RDW Coeff of [place] 14.3, Plt Count 309, MPV 10.0, Immature Gran % (Auto) 0.500, Neut % (Auto) 66.2, Lymph % (Auto) 20.0, [place] % (Auto) 12.0 H, Eos % (Auto) 0.7, Baso % (Auto) 0.6, Absolute Neuts (auto) 5.4, Absolute Lymphs (auto) 1.62, Nucleated RBC % 0, Sodium 132 L, Potassium 4.5, Chloride 100, Carbon Dioxide 21.1, Anion Gap 11, BUN 8, Creatinine 0.62 L, EstimCreat Clear Calc 61.74, Est GFR (MDRD) Non-Af 103, BUN/Creatinine Ratio 12.7, Glucose 84, Calcium 8.9 Imaging Radiology Impression Chest X-Ray 04/07/25 12:31 IMPRESSION: Status post small caliber chest tube placement for treatment of a left pneumothorax. The left pneumothorax has resolved. Reading Location: [place] [address] Charges/Coding Visit Charges Inpatient E&M: 49774 Init Hosp L3 04/07/25 1642 <Electronically signed by Ray Sanders MD> Cosigner Signature (if applicable): CC: JESUS CALLAHAN~ Signed [facility] Work Phone: [phone]) 200-610705-30-2025 History and physical note [facility] Medical Records Department [address] [place] [id number] H&P Exam - Hospitalist 04/07/25 1258 MR#: [id number] Acct: [id number] Name: PATRICK ANDRES JrQuan Rep #:[id number] : 1955 70 From: Michelle Do MD PCP: JESUS CALLAHAN Status:ADM I N Location: [facility] [place] [id number] HPI - General General Date of Admission: 04/07/25 Date of Service: 04/07/25 Chief Complaint: shortness of breath HPI Narrative PATRICK ANDRES, is a 70 M with a PMH as outlined who presents via the ED On 04/07/2025 with a complaint of shortness of breath. HE came in for a scheduled outpatient lung biopsy, and sustained a pneumothorax as a complication. He developed shortness of breath so was sent over to the ED. He denied any cough, chest pain, palpitations, dizziness, nausea, vomiting or any other symptoms. Review of systems is otherwise negative. VItals in the ED were BP of 137/69, IL of 65, RR of 28 and oxygen sats of 99% on5L of oxygen. CBC showed hemoglobin of 14.5 with WBC of 8.1 and platelets of 309. Chemistry showed sodium of 132 with potassium of 4.5 and bicarb of 21.1. Anion gap is 11. Creatinine was 0.62. Chest x-ray after he had chest tube inserted showed s/p small caliber chest tube placement for treatment of left pneumothorax.Left pneumothorax has resolved. He has been admitted to be managed for iatrogenic pneumothorax after lung biopsy. PENDING SALE TO [facility] Medical History BPH without urinary obstruction COPD (chronic obstructive pulmonary disease) Orthostatic hypotension Pulmonary nodules Hyponatremia Syncope and collapse Hypokalemia Chronic alcohol abuse Stenosis of right internal carotid artery Abnormal echocardiogram Mass of left lung Vision loss of left eye Smoker Hypertension Nicotine dependence, cigarettes, uncomplicated Home Medications ?Medication ?Instructions ?Recorded ?Last Taken ?Type tamsulosin 0.4 mg capsule 0.4 mg PO DAILY 12/29/23 History albuterol sulfate 90 mcg/actuation 1 puff inhalation Q 4H PRN 12/09/24 Unknown History aerosol inhaler hydroxyzine HCl 50 mg tablet 50 mg PO QHS 12/26/24 History aspirin 81 mg tablet,delayed 81 mg PO DAILY 04/07/25 0 04/06/25 History release (Adult Low Dose Aspirin) atorvastatin 40 mg tablet (Lipitor) 40 mg PO QHS 04/0704/06/25 History glycopyrrolate 9 mcg-formoterol 2 puff inhalation Q12H 04/07/25 04/06/25 History 4.8 mcg HFA aerosol inhaler (Bevespi Aerosphere) Allergy/AdvReac Type Severity Reaction Status Date / Time hydrochlorothiazide AdvReac hyponatremi Verified 04/07/25 10:46 a Family History Father Cancer Mother Diabetes Surgical History History of colonoscopy H/O vasectomy Social History household members: family housing: house current occupational status: retired Smoking Status: Current every day smoker tobacco type: cigarettes alcohol intake: current alcohol intake frequency: 3 or more drinks per day Alcohol type: beer details: up to 12 beers daily substance use type: does not use caffeine: Yes ROS Constitutional Constitutional: Denies anorexia, chills, fatigue, fever(s), malaise or weakness Eyes Eyes: Denies change in vision ENT HEENT: Denies dysphagia, headache(s) or sore throat Cardiovascular Cardiovascular: Reports dyspnea on exertion; Denies chest pain, edema, lightheadedness, orthopnea, palpitations, paroxysmal nocturnal dyspnea, rapid heart rate or syncope Respiratory/Chest Respiratory/Chest: Reports dyspnea, shortness of breath at rest and shortness ofbreath with exertion; Denies cough, excessive phlegm production, hemoptysis, productive cough or wheezing Gastrointestinal Gastrointestinal: Denies abdominal pain, diarrhea, dyspepsia, nausea or vomiting Genitourinary Genitourinary: Denies burning urination or dysuria Musculoskeletal Musculoskeletal: Denies arthralgias Neurologic Neurologic: Denies confusion, dizziness, focal weakness, headache(s), seizure- like activity or seizures Psychiatric Psychiatric: Denies anxiety or depression Endocrine Endocrinology: Denies change in body appearance Vital Signs Vital Signs Vital Signs: 04/07/25 10:47 04/07/25 11:45 04/07/25 12:00 Temperature 97.9 F Temperature Source Oral Pulse Rate 82 86 Respiratory Rate 28 H 32 H Respiratory Effort Short of Breath Labored Respiratory Depth Normal Respiratory Pattern Normal Blood Pressure 137/69 H Blood Pressure Mean 91 Pulse Ox 94 99 Oxygen Delivery Method Nasal Cannula Nasal Cannula Nasal Cannula Oxygen Flow Rate (L/min) 5 5 04/07/25 12:00 Temperature Temperature Source Pulse Rate 65 Respiratory Rate 28 H Respiratory Effort Respiratory Depth Respiratory Pattern Blood Pressure 137/69 H Blood Pressure Mean 91 Pulse Ox 99 Oxygen Delivery Method Room Air Oxygen Flow Rate (L/min) Weight Weight: 111 lb 15.917 oz Body Mass Index (BMI) 19.2 Physical Exam Const alert, oriented x3 and no apparent distress General Appearance: cooperative HEENT normocephalic, head/scalp atraumatic, hearing grossly normal bilaterally and moist oral mucous membranes Mouth: oral and palatal mucosa normal Eyes PERRL, EOMs intact bilaterally and conjunctivae normal Neck no lymphadenopathy and supple Resp Resp Narrative: mildly diminished breath sounds bibasally, no wheezes or crackles. On 5L of oxygen by nasal canula.small chest tube in situ in anterior part of left side of chest Cardio regular rate, regular rhythm, S1 normal heart sound, S2 normal heart sound and no murmurs GI normal to inspection, nondistended, normoactive bowel sounds, soft to palpation,non-tender and non-distended Extremity normal to inspection, full ROM and no clubbing, cyanosis or edema Neuro oriented x3, CN's II-XII intact bilaterally, moves all extremities and no focal motor deficits Sensorium / Orientation: awake and alert Motor Exam: strength 5/5 throughout Psych affect normal Results Lab / Micro Data 04/07/25 11:21 04/07/25 11:21 Labs: Laboratory Results - last 24 hr 04/07/25 11:21: WBC 8.1, RBC 4.76, Hgb 14.5, Hct 41.7, MCV 87.6, MCH 30.5, MCHC 34.8, RDW Std Deviation 46.2 H, RDW Coeff of [place] 14.3, Plt Count 309, MPV 10.0, Immature Gran % (Auto) 0.500, Neut % (Auto) 66.2, Lymph % (Auto) 20.0, [place] % (Auto) 12.0 H, Eos % (Auto) 0.7, Baso % (Auto) 0.6, Absolute Neuts (auto) 5.4, Absolute Lymphs (auto) 1.62, Nucleated RBC % 0, Sodium 132 L, Potassium 4.5, Chloride 100, Carbon Dioxide 21.1, Anion Gap 11, BUN 8, Creatinine 0.62 L, EstimCreat Clear Calc 61.74, Est GFR (MDRD) Non-Af 103, BUN/Creatinine Ratio 12.7, Glucose 84, Calcium 8.9 Imaging Radiology Impression Chest X-Ray 04/07/25 12:31 IMPRESSION: Status post small caliber chest tube placement for treatment of a left pneumothorax. The left pneumothorax has resolved. Reading Location: [facility] Assessment & Plan Assessment/Plan (1) Iatrogenic pneumothorax: (2) Hypoxemia: PLAN: Plan #Left iatrogenic pneumothorax after lung biopsy * Patient came in today to have scheduled left lung nodule biopsy. This procedure was complicated by left pneumothorax * Had a small caliber chest tube inserted in the ED. * Follow-up chest x-ray showed that the left pneumothorax had resolved. [facility] * Keep chest tube with oxygen for eval. Consult general surgery to help manage the chest tube. * Breathing treatments and bronchodilators. Currently on 5 L of oxygen. Titrate oxygen to maintain saturation above 90%. * #Hypoxia due to iatrogenic pneumothorax: Management as above. #BPH: on flomax #COPD: not in exacerbation. Breathing treatment with bronchodilators. #Right carotid artery stenosis: On aspirin and statin #Pulmonary nodule: s/p biopsy as above. DVT prophylaxis: Lovenox Code status: full code * Patient counseled extensively about different types of CODE STATUS including full code, DNR CCA and DNR CCA. * Patient elects to be full code. * Total ktaq-io-cnew time 16 minutes. Charges/Coding Visit Charges Inpatient E&M: 20434 Init Hosp L3 Procedures Hospitalists Procedures: 25352 Advncd Care Plan 30 Min 04/07/25 1752 Cosigner Signature (if applicable): CC: Dr. Michelle Do MD; JEUSS CALLAHAN~ Signed [facility]05-30-2025 Consult note [facility] Medical Records Department [address] [place] [address] Consultation - Surgical 04/07/25 1643 MR#: [id number] Acct: [id number] Name: PATRICK ANDRES Rep #:[id number] : 1955 70 From: Ray Sanders MD PCP: JESUS CALLAHAN Status:ADM I N Location: [facility] [place] PV273-5 Assessment & Plan Assessment/Plan (1) Iatrogenic pneumothorax: PLAN: Plan The patient is a 70-year-old male who sustained a left pneumothorax following a left lung biopsy performed earlier today. Chest tube was successfully placed Jesus physician. His pneumothorax seems to be resolved. I have recommended that we keep him at suction at least overnight. Will get another chest x-ray in the morning. If his lung stays expanded, I would likely recommend placing him to waterseal provided that his airleak continues to remain resolved. I would recommend at least 24 hours of waterseal before removing chest tube. Will continue to follow along and advise accordingly. HPI Consult Data Date of Consult: 04/07/25 HPI Narrative Reason for Consultation: Iatrogenic pneumothorax HPI Narrative: PATRICK ANDRES, is a 70 M who underwent an elective left lung biopsy by radiology earlier today. Patient became acutely short of breath soon after the procedure. He was sent to the emergency room wherehe was seen evaluated by the ER staff. He was found to have a sizable left-sided pneumothorax. ER physician placed a small bore chest tube and successfully reexpanded the left lung. He was noted to have a positive airleak at that time. Patient was subsequently admitted to the medicine service and asurgical consult was obtained for chest tube management. Patient states that he is doing well currently. He denies any shortness of breath or chest pain. It sounds as though he had a previous left-sided pneumothorax about a year or so ago after a similar lung biopsy. Patient does have COPD. He doessmoke. He states that he smokes about a pack and half cigarettes a day since he was about 15 or 16.He states that he is still currently smoking about a pack per day and sometimes 2 packs/day at times. PENDING SALE TO [facility] Medical History BPH without urinary obstruction COPD (chronic obstructive pulmonary disease) Orthostatic hypotension Pulmonary nodules Hyponatremia Syncope and collapse Hypokalemia Chronic alcohol abuse Stenosis of right internal carotid artery Abnormal echocardiogram Mass of left lung Vision loss of left eye Smoker Hypertension Nicotine dependence, cigarettes, uncomplicated Home Medications ?Medication ?Instructions ?Recorded ?Last Taken ?Type tamsulosin 0.4 mg capsule 0.4 mg PO DAILY 12/29/23 History albuterol sulfate 90 mcg/actuation 1 puff inhalation Q 4H PRN 12/09/24 Unknown History aerosol inhaler hydroxyzine HCl 50 mg tablet 50 mg PO QHS 12/26/24 History aspirin 81 mg tablet,delayed 81 mg PO DAILY 04/07/25 0 04/06/25 History release (Adult Low Dose Aspirin) atorvastatin 40 mg tablet (Lipitor) 40 mg PO QHS 04/0704/06/25 History glycopyrrolate 9 mcg-formoterol 2 puff inhalation Q12H 04/07/25 04/06/25 History 4.8 mcg HFA aerosol inhaler (Bevespi Aerosphere) Allergy/AdvReac Type Severity Reaction Status Date / Time hydrochlorothiazide AdvReac hyponatremi Verified 04/07/25 10:46 a Family History Father Cancer Mother Diabetes Surgical History History of colonoscopy H/O vasectomy Social History household members: family housing: house current occupational status: retired Smoking Status: Current every day smoker tobacco type: cigarettes alcohol intake: current alcohol intake frequency: 3 or more drinks per day Alcohol type: beer details: up to 12 beers daily substance use type: does not use caffeine: Yes Physical Exam Narrative He is alert and oriented x 3. He is in no acute distress. Left chest tube placed in the upper chestanteriorly. It is connected to suction. I do not appreciate an air leak at the present time. Lab / Micro Data 04/07/25 11:21 04/07/25 11:21 Labs: Laboratory Results - last 24 hr 04/07/25 11:21: WBC 8.1, RBC 4.76, Hgb 14.5, Hct 41.7, MCV 87.6, MCH 30.5, MCHC 34.8, RDW Std Deviation 46.2 H, RDW Coeff of [place] 14.3, Plt Count 309, MPV 10.0, Immature Gran % (Auto) 0.500, Neut % (Auto) 66.2, Lymph % (Auto) 20.0, [place] % (Auto) 12.0 H, Eos % (Auto) 0.7, Baso % (Auto) 0.6, Absolute Neuts (auto) 5.4, Absolute Lymphs (auto) 1.62, Nucleated RBC % 0, Sodium 132 L, Potassium 4.5, Chloride 100, Carbon Dioxide 21.1, Anion Gap 11, BUN 8, Creatinine 0.62 L, EstimCreat Clear Calc 61.74, Est GFR (MDRD) Non-Af 103, BUN/Creatinine Ratio 12.7, Glucose 84, Calcium 8.9 Imaging Radiology Impression Chest X-Ray 04/07/25 12:31 IMPRESSION: Status post small caliber chest tube placement for treatment of a left pneumothorax. The left pneumothorax has resolved. 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 acute April 19, 2025 7:40am COPD (chronic obstructive pulmonary disease) chronic April 19 7:40am Stenosis of right internal carotid artery inactive April 19, 2025 7:40am Tobacco use disorder inactive April 19, 2025 7:40am 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 acute May 01, 2025 9:12am 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 acute May 29, 2025 10:21am 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 acute May 31, 2025 12:40pm 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 acute June 05, 2025 12:04pm 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 acute June 12, 2025 9:26am Encounter for education acute A ug2024 9:26am 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 acute June 14, 2025 7:35am Chemotherapy management, encounter for acute June 14, 2025 7:35am Immunotherapy encounter acute A ugust 2024 7:35am 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 acute June 29 8:52am Constipation acute June 29, 2025 8:52am Drug induced neutropenia acute June 29, 2025 8:52am 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 acute July 05 8:17am Constipation acute July 05, 2025 8:17am Drug induced neutropenia acute July 05, 2025 8:17am 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 acute July 19, 2025 8:50am Constipation acute July 192024 8:50am Drug induced neutropenia acute July 19, 2025 8:50am [facility] Work Phone: 1(351) 118-944005-30-2025 Evaluation note* Diagnosis Onset Date Resolution Status Admit Date COPD (chronic obstructive pulmonary disease) chronic April 07 1:24pm Hypoxemia resolved April 07, 2025 1:24pm Iatrogenic pneumothorax resolved M 2024 1:24pm 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 acute April 19, 2025 7:40am COPD (chronic obstructive pulmonary disease) chronic April 19 7:40am Stenosis of right internal carotid artery inactive April 19, 2025 7:40am Tobacco use disorder inactive April 19, 2025 7:40am 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 acute May 01, 2025 9:12am 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 acute May 29, 2025 10:21am 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 acute May 31, 2025 12:40pm 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 acute June 05, 2025 12:04pm 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 acute June 12, 2025 9:26am Encounter for education acute A 2024 9:26am 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 acute June 14, 2025 7:35am Chemotherapy management, encounter for acute June 14, 2025 7:35am Immunotherapy encounter acute A ug2024 7:35am 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 acute June 29 8:52am Constipation acute June 29, 2025 8:52am Drug induced neutropenia acute June 29, 2025 8:52am 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 acute July 05 8:17am Constipation acute July 05, 2025 8:17am Drug induced neutropenia acute July 05, 2025 8:17am 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 acute July 19, 2025 8:50am Constipation acute July 192024 8:50am Drug induced neutropenia acute July 19, 2025 8:50am 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 Rep #:[id number] : 1955 70 From: Stefan Shultz MD PCP: JESUS CALLAHAN MASTER DATA ANALYST-C Status:REG E R Location: ED HPI History of Present Illness Chief Complaint: Shortness of Breath Informant: patient Narrative Narrative: 78-year-old male was here to get a lung biopsy in interventional radiology as anoutpatient, and as a result he sustained a pneumothorax. He started getting short of breath, hypoxic in the 80s, they have him on a nasal cannula he was noton home oxygen prior to coming here. He is not having pain but he is having a hard time breathing. [facility] Medical History BPH without urinary obstruction COPD (chronic obstructive pulmonary disease) Orthostatic hypotension Pulmonary nodules Hyponatremia Syncope and collapse Hypokalemia Chronic alcohol abuse Stenosis of right internal carotid artery Abnormal echocardiogram Mass of left lung Vision loss of left eye Smoker Hypertension Nicotine dependence, cigarettes, uncomplicated Home Medications ?Medication ?Instructions ?Recorded ?Last Taken ?Type tamsulosin 0.4 mg capsule 0.4 mg PO DAILY 12/29/23 History albuterol sulfate 90 mcg/actuation 1 puff inhalation Q 4H PRN 12/09/24 Unknown History aerosol inhaler hydroxyzine HCl 50 mg tablet 50 mg PO QHS 12/26/24 History aspirin 81 mg tablet,delayed 81 mg PO DAILY 04/07/25 0 04/06/25 History release (Adult Low Dose Aspirin) atorvastatin 40 mg tablet (Lipitor) 40 mg PO QHS 04/0704/06/25 History glycopyrrolate 9 mcg-formoterol 2 puff inhalation Q12H 04/07/25 04/06/25 History 4.8 mcg HFA aerosol inhaler (Bevespi Aerosphere) Allergy/AdvReac Type Severity Reaction Status Date / Time hydrochlorothiazide AdvReac hyponatremi Verified 04/07/25 10:46 a Family History Father Cancer Mother Diabetes Surgical History History of colonoscopy H/O vasectomy Social History household members: family housing: house current occupational status: retired Smoking Status: Current every day smoker tobacco type: cigarettes alcohol intake: current alcohol intake frequency: 3 or more drinks per day Alcohol type: beer details: up to 12 beers daily substance use type: does not use caffeine: Yes ROS ROS ED Constitutional Constitutional ED: Denies chills or fever(s) Eyes Eyes: Denies change in vision or diplopia ENT ENT ED: Denies rhinorrhea or sore throat Cardiovascular Cardiovascular: Denies chest pain or palpitations Respiratory/Chest Respiratory/Chest: Reports cough and dyspnea Gastrointestinal Gastrointestinal: Denies abdominal pain, diarrhea, nausea or vomiting Genitourinary Genitourinary ED: Denies dysuria or hematuria Musculoskeletal Musculoskeletal: Denies back pain or neck pain Integumentary Denies abscess or rash Neurologic Neurologic: Denies headache(s), paresthesias or weakness Psychiatric Psychiatric: Denies anxiety or suicidal thoughts EXAM Physical Exam Const Vital Signs: 04/07/25 10:47 04/07/25 11:45 04/07/25 12:00 Temperature 97.9 F Temperature Source Oral Pulse Rate 82 86 Respiratory Rate 28 H 32 H Respiratory Effort Short of Breath Labored Respiratory Depth Normal Respiratory Pattern Normal Blood Pressure 137/69 H Blood Pressure Mean 91 Pulse Ox 94 99 Oxygen Delivery Method Nasal Cannula Nasal Cannula Nasal Cannula Oxygen Flow Rate (L/min) 5 5 04/07/25 12:00 Temperature Temperature Source Pulse Rate 65 Respiratory Rate 28 H Respiratory Effort Respiratory Depth Respiratory Pattern Blood Pressure 137/69 H Blood Pressure Mean 91 Pulse Ox 99 Oxygen Delivery Method Room Air Oxygen Flow Rate (L/min) Positive well nourished and well developed General Appearance ED: well developed and NAD HEENT Reports moist mucous membranes HEENT Narrative: Disconjugate gaze normocephalic and atraumatic Eyes PERRL and EOMs intact bilaterally Neck full ROM and supple Resp Resp Narrative: Diminished throughout. Decreased breath sounds on the left side. Pulses are equal trachea is midline, keenly alert. Tachypneic. Cardio regular rate, regular rhythm and no murmurs GI non-tender and non-distended Auscultation: normoactive bowel sounds Palpation: soft Back/Spine no CVA tenderness General Back: other FROM Extremity normal to inspection General Extremety ED: Negative for edema, pulses abnormal or tenderness General Extremity: Negative for edema or pulses abnormal Neuro oriented x3, CN's II-XII intact bilaterally and no sensory deficits noted Sensorium / Orientation: awake and alert Motor Exam: strength 5/5 throughout Psych mental status grossly normal Skin no rashes or lesions noted and no wounds MDM MDM MDM Narrative Medical decision making narrative: I reviewed the patient's inspiratory and expiratory x-rays that he had just prior to being sent here, they show fairly significant pneumothorax on the left,probably 30% or more. Given this, I recommend a chest tube to the patient. I think doing a small bore second intercostal space anterior chest tube is appropriate since he does not have a traumatic pneumothorax or hemothorax. See the procedure note this went well. He was breathing better afterwards. Two-view chest x-ray shows resolution of the pneumothorax and good chest tube placement. Discussed with surgery send pulmonary not available, agrees with inpatient observation and okay to follow. Lab Data Attestation: I reviewed the patient's lab results. Labs: Laboratory Results - last 24 hr 04/07/25 11:21 WBC 8.1 RBC 4.76 Hgb 14.5 Hct 41.7 MCV 87.6 MCH 30.5 MCHC 34.8 RDW Std Deviation 46.2 H RDW Coeff of [place] 14.3 Plt Count 309 MPV 10.0 Immature Gran % (Auto) 0.500 Neut % (Auto) 66.2 Lymph % (Auto) 20.0 [place] % (Auto) 12.0 H Eos % (Auto) 0.7 Baso % (Auto) 0.6 Absolute Neuts (auto) 5.4 Absolute Lymphs (auto) 1.62 Nucleated RBC % 0 Sodium 132 L Potassium 4.5 Chloride 100 Carbon Dioxide 21.1 Anion Gap 11 BUN 8 Creatinine 0.62 L Estim Creat Clear Calc 61.74 Est GFR (MDRD) Non-Af 103 BUN/Creatinine Ratio 12.7 Glucose 84 Calcium 8.9 Radiography Diagnostic Testing: Clinical Impression(s) from Imaging Studies Chest X-Ray 04/07/25 12:31 IMPRESSION: Status post small caliber chest tube placement for treatment of a left pneumothorax. The left pneumothorax has resolved. Reading Location: [facility] Management Discussion w/another healthcare provider: Hospitalist and House Wrecker (surgery Marilyn - khadra to follow; pulm not avail) Procedures Other Procedures Procedure(s): Left thoracostomy: After informed consent from the patient, he wasgiven morphine beforehand, as well as local lidocaine 2 cc left midclavicular line second-third area intercostal space, I aspirated a small amount of air overtop of the third rib, deployed lidocaine into the area, sterilized with chlorhexidine and draped in a sterile fashion, made a small incision in the skinwith the included #11 blade, and placed UreSil thoracostomy via modified Seldinger technique, aspirated air, tolerated well no complications. We connected this to Pleur-evac, patient is making good tidal volumes with the water and the vacuum and there is a small air leak when he exhales. 2 view chest x-ray shows improvement. Tolerated well, no complications. Discharge Plan Dx/Rx/DC Orders Clinical Impression: Iatrogenic pneumothorax, COPD (chronic obstructive pulmonary disease), Hypoxemia Disposition Disposition: Acute Care Hospital [facility] What to do if you have Problems For any increased pain, shortness of breath, bleeding, nausea or vomiting, chestpain, or any unexpected problems, contact your Primary Care Provider. Call [facility] ([phone]) or report to the closest Emergency Room. Call 911 if necessary. 04/07/25 1303 <Electronically signed by Stefan Shultz MD> Cosigner Signature (if applicable): CC: JESUS MALAVE [place] ~ Signed [facility] Work Phone: 1([phone]) 889-204005-30-2025 Discharge summary Author Stefan Shultz [facility] Note Date/Time April 07, 2025 1:03p [facility] Medical Records Department [address] [place] [address] Emergency Department Summary 04/07/25 MR#: [id number] Acct: [id number] Name: PATRICK ANDRES Jr. Rep #:[id number] : 1955 70 From: Stefan Shultz MD PCP: JESUS CALLAHAN MASTER DATA ANALYST-C Status:REG E R Location: ED HPI History of Present Illness Chief Complaint: Shortness of Breath Informant: patient Narrative Narrative: 78-year-old male was here to get a lung biopsy in interventional radiology as anoutpatient, and as a result he sustained a pneumothorax. He started getting short of breath, hypoxic in the 80s, they have him on a nasal cannula he was noton home oxygen prior to coming here. He is not having pain but he is having a hard time breathing. [facility] Medical History BPH without urinary obstruction COPD (chronic obstructive pulmonary disease) Orthostatic hypotension Pulmonary nodules Hyponatremia Syncope and collapse Hypokalemia Chronic alcohol abuse Stenosis of right internal carotid artery Abnormal echocardiogram Mass of left lung Vision loss of left eye Smoker Hypertension Nicotine dependence, cigarettes, uncomplicated Home Medications ?Medication ?Instructions ?Recorded ?Last Taken ?Type tamsulosin 0.4 mg capsule 0.4 mg PO DAILY 12/29/23 History albuterol sulfate 90 mcg/actuation 1 puff inhalation Q 4H PRN 12/09/24 Unknown History aerosol inhaler hydroxyzine HCl 50 mg tablet 50 mg PO QHS 12/26/24 History aspirin 81 mg tablet,delayed 81 mg PO DAILY 04/07/25 0 04/06/25 History release (Adult Low Dose Aspirin) atorvastatin 40 mg tablet (Lipitor) 40 mg PO QHS 04/0704/06/25 History glycopyrrolate 9 mcg-formoterol 2 puff inhalation Q12H 04/07/25 04/06/25 History 4.8 mcg HFA aerosol inhaler (Bevespi Aerosphere) Allergy/AdvReac Type Severity Reaction Status Date / Time hydrochlorothiazide AdvReac hyponatremi Verified 04/07/25 10:46 a Family History Father Cancer Mother Diabetes Surgical History History of colonoscopy H/O vasectomy Social History household members: family housing: house current occupational status: retired Smoking Status: Current every day smoker tobacco type: cigarettes alcohol intake: current alcohol intake frequency: 3 or more drinks per day Alcohol type: beer details: up to 12 beers daily substance use type: does not use caffeine: Yes ROS ROS ED Constitutional Constitutional ED: Denies chills or fever(s) Eyes Eyes: Denies change in vision or diplopia ENT ENT ED: Denies rhinorrhea or sore throat Cardiovascular Cardiovascular: Denies chest pain or palpitations Respiratory/Chest Respiratory/Chest: Reports cough and dyspnea Gastrointestinal Gastrointestinal: Denies abdominal pain, diarrhea, nausea or vomiting Genitourinary Genitourinary ED: Denies dysuria or hematuria Musculoskeletal Musculoskeletal: Denies back pain or neck pain Integumentary Denies abscess or rash Neurologic Neurologic: Denies headache(s), paresthesias or weakness Psychiatric Psychiatric: Denies anxiety or suicidal thoughts EXAM Physical Exam Const Vital Signs: 04/07/25 10:47 04/07/25 11:45 04/07/25 12:00 Temperature 97.9 F Temperature Source Oral Pulse Rate 82 86 Respiratory Rate 28 H 32 H Respiratory Effort Short of Breath Labored Respiratory Depth Normal Respiratory Pattern Normal Blood Pressure 137/69 H Blood Pressure Mean 91 Pulse Ox 94 99 Oxygen Delivery Method Nasal Cannula Nasal Cannula Nasal Cannula Oxygen Flow Rate (L/min) 5 5 04/07/25 12:00 Temperature Temperature Source Pulse Rate 65 Respiratory Rate 28 H Respiratory Effort Respiratory Depth Respiratory Pattern Blood Pressure 137/69 H Blood Pressure Mean 91 Pulse Ox 99 Oxygen Delivery Method Room Air Oxygen Flow Rate (L/min) Positive well nourished and well developed General Appearance ED: well developed and NAD HEENT Reports moist mucous membranes HEENT Narrative: Disconjugate gaze normocephalic and atraumatic Eyes PERRL and EOMs intact bilaterally Neck full ROM and supple Resp Resp Narrative: Diminished throughout. Decreased breath sounds on the left side. Pulses are equal trachea is midline, keenly alert. Tachypneic. Cardio regular rate, regular rhythm and no murmurs GI non-tender and non-distended Auscultation: normoactive bowel sounds Palpation: soft Back/Spine no CVA tenderness General Back: other FROM Extremity normal to inspection General Extremety ED: Negative for edema, pulses abnormal or tenderness General Extremity: Negative for edema or pulses abnormal Neuro oriented x3, CN's II-XII intact bilaterally and no sensory deficits noted Sensorium / Orientation: awake and alert Motor Exam: strength 5/5 throughout Psych mental status grossly normal Skin no rashes or lesions noted and no wounds MDM MDM MDM Narrative Medical decision making narrative: I reviewed the patient's inspiratory and expiratory x-rays that he had just prior to being sent here, they show fairly significant pneumothorax on the left,probably 30% or more. Given this, I recommend a chest tube to the patient. I think doing a small bore second intercostal space anterior chest tube is appropriate since he does not have a traumatic pneumothorax or hemothorax. See the procedure note this went well. He was breathing better afterwards. Two-view chest x-ray shows resolution of the pneumothorax and good chest tube placement. Discussed with surgery send pulmonary not available, agrees with inpatient observation and okay to follow. Lab Data Attestation: I reviewed the patient's lab results. Labs: Laboratory Results - last 24 hr 04/07/25 11:21 WBC 8.1 RBC 4.76 Hgb 14.5 Hct 41.7 MCV 87.6 MCH 30.5 MCHC 34.8 RDW Std Deviation 46.2 H RDW Coeff of [place] 14.3 Plt Count 309 MPV 10.0 Immature Gran % (Auto) 0.500 Neut % (Auto) 66.2 Lymph % (Auto) 20.0 [place] % (Auto) 12.0 H Eos % (Auto) 0.7 Baso % (Auto) 0.6 Absolute Neuts (auto) 5.4 Absolute Lymphs (auto) 1.62 Nucleated RBC % 0 Sodium 132 L Potassium 4.5 Chloride 100 Carbon Dioxide 21.1 Anion Gap 11 BUN 8 Creatinine 0.62 L Estim Creat Clear Calc 61.74 Est GFR (MDRD) Non-Af 103 BUN/Creatinine Ratio 12.7 Glucose 84 Calcium 8.9 Radiography Diagnostic Testing: Clinical Impression(s) from Imaging Studies Chest X-Ray 04/07/25 12:31 IMPRESSION: Status post small caliber chest tube placement for treatment of a left pneumothorax. The left pneumothorax has resolved. Reading Location: [place] [address] Management Discussion w/another healthcare provider: Hospitalist and House Wrecker (surgery Wanek - ok to follow; pulm not avail) Procedures Other Procedures Procedure(s): Left thoracostomy: After informed consent from the patient, he wasgiven morphine beforehand, as well as local lidocaine 2 cc left midclavicular line second-third area intercostal space, I aspirated a small amount of air overtop of the third rib, deployed lidocaine into the area, sterilized with chlorhexidine and draped in a sterile fashion, made a small incision in the skinwith the included #11 blade, and placed UreSil thoracostomy via modified Seldinger technique, aspirated air, tolerated well no complications. We connected this to Pleur-evac, patient is making good tidal volumes with the water and the vacuum and there is a small air leak when he exhales. 2 view chest x-ray shows improvement. Tolerated well, no complications. Discharge Plan Dx/Rx/DC Orders Clinical Impression: Iatrogenic pneumothorax, COPD (chronic obstructive pulmonary disease), Hypoxemia Disposition Disposition: Acute Care Hospital [facility] What to do if you have Problems For any increased pain, shortness of breath, bleeding, nausea or vomiting, chestpain, or any unexpected problems, contact your Primary Care Provider. Call [facility] ([phone]) or report to the closest Emergency Room. Call 911 if necessary. 04/07/25 1303 <Electronically signed by Stefan Shultz MD> Cosigner Signature (if applicable): CC: JESUS CALLAHAN ~ Signed [facility] Work Phone: 1(445) 669-474105-30-2025 Discharge summary [facility] Medical Records Department [address] [place] [address] Emergency Department Summary 04/07/25 MR#: [id number] Acct: [id number] Name: MCKENNAPATRICK Jr. Rep #:[id number] : 1955 70 From: Stefan Shultz MD PCP: JESUS CALLAHAN NPMadhavC Status:REG E R Location: ED HPI History of Present Illness Chief Complaint: Shortness of Breath Informant: patient Narrative Narrative: 78-year-old male was here to get a lung biopsy in interventional radiology as anoutpatient, and as a result he sustained a pneumothorax. He started getting short of breath, hypoxic in the 80s, they have him on a nasal cannula he was noton home oxygen prior to coming here. He is not having pain but he is having a hard time breathing. [facility] Medical History BPH without urinary obstruction COPD (chronic obstructive pulmonary disease) Orthostatic hypotension Pulmonary nodules Hyponatremia Syncope and collapse Hypokalemia Chronic alcohol abuse Stenosis of right internal carotid artery Abnormal echocardiogram Mass of left lung Vision loss of left eye Smoker Hypertension Nicotine dependence, cigarettes, uncomplicated Home Medications ?Medication ?Instructions ?Recorded ?Last Taken ?Type tamsulosin 0.4 mg capsule 0.4 mg PO DAILY 12/29/23 History albuterol sulfate 90 mcg/actuation 1 puff inhalation Q 4H PRN 12/09/24 Unknown History aerosol inhaler hydroxyzine HCl 50 mg tablet 50 mg PO QHS 12/26/24 History aspirin 81 mg tablet,delayed 81 mg PO DAILY 04/07/25 0 04/06/25 History release (Adult Low Dose Aspirin) atorvastatin 40 mg tablet (Lipitor) 40 mg PO QHS 04/0704/06/25 History glycopyrrolate 9 mcg-formoterol 2 puff inhalation Q12H 04/07/25 04/06/25 History 4.8 mcg HFA aerosol inhaler (Bevespi Aerosphere) Allergy/AdvReac Type Severity Reaction Status Date / Time hydrochlorothiazide AdvReac hyponatremi Verified 04/07/25 10:46 a Family History Father Cancer Mother Diabetes Surgical History History of colonoscopy H/O vasectomy Social History household members: family housing: house current occupational status: retired Smoking Status: Current every day smoker tobacco type: cigarettes alcohol intake: current alcohol intake frequency: 3 or more drinks per day Alcohol type: beer details: up to 12 beers daily substance use type: does not use caffeine: Yes ROS ROS ED Constitutional Constitutional ED: Denies chills or fever(s) Eyes Eyes: Denies change in vision or diplopia ENT ENT ED: Denies rhinorrhea or sore throat Cardiovascular Cardiovascular: Denies chest pain or palpitations Respiratory/Chest Respiratory/Chest: Reports cough and dyspnea Gastrointestinal Gastrointestinal: Denies abdominal pain, diarrhea, nausea or vomiting Genitourinary Genitourinary ED: Denies dysuria or hematuria Musculoskeletal Musculoskeletal: Denies back pain or neck pain Integumentary Denies abscess or rash Neurologic Neurologic: Denies headache(s), paresthesias or weakness Psychiatric Psychiatric: Denies anxiety or suicidal thoughts EXAM Physical Exam Const Vital Signs: 04/07/25 10:47 04/07/25 11:45 04/07/25 12:00 Temperature 97.9 F Temperature Source Oral Pulse Rate 82 86 Respiratory Rate 28 H 32 H Respiratory Effort Short of Breath Labored Respiratory Depth Normal Respiratory Pattern Normal Blood Pressure 137/69 H Blood Pressure Mean 91 Pulse Ox 94 99 Oxygen Delivery Method Nasal Cannula Nasal Cannula Nasal Cannula Oxygen Flow Rate (L/min) 5 5 04/07/25 12:00 Temperature Temperature Source Pulse Rate 65 Respiratory Rate 28 H Respiratory Effort Respiratory Depth Respiratory Pattern Blood Pressure 137/69 H Blood Pressure Mean 91 Pulse Ox 99 Oxygen Delivery Method Room Air Oxygen Flow Rate (L/min) Positive well nourished and well developed General Appearance ED: well developed and NAD HEENT Reports moist mucous membranes HEENT Narrative: Disconjugate gaze normocephalic and atraumatic Eyes PERRL and EOMs intact bilaterally Neck full ROM and supple Resp Resp Narrative: Diminished throughout. Decreased breath sounds on the left side. Pulses are equal trachea is midline, keenly alert. Tachypneic. Cardio regular rate, regular rhythm and no murmurs GI non-tender and non-distended Auscultation: normoactive bowel sounds Palpation: soft Back/Spine no CVA tenderness General Back: other FROM Extremity normal to inspection General Extremety ED: Negative for edema, pulses abnormal or tenderness General Extremity: Negative for edema or pulses abnormal Neuro oriented x3, CN's II-XII intact bilaterally and no sensory deficits noted Sensorium / Orientation: awake and alert Motor Exam: strength 5/5 throughout Psych mental status grossly normal Skin no rashes or lesions noted and no wounds MDM MDM MDM Narrative Medical decision making narrative: I reviewed the patient's inspiratory and expiratory x-rays that he had just prior to being sent here, they show fairly significant pneumothorax on the left,probably 30% or more. Given this, I recommend a chest tube to the patient. I think doing a small bore second intercostal space anterior chest tube is appropriate since he does not have a traumatic pneumothorax or hemothorax. See the procedure note this went well. He was breathing better afterwards. Two-view chest x-ray shows resolution of the pneumothorax and good chest tube placement. Discussed with surgery send pulmonary not available, agrees with inpatient observation and okay to follow. Lab Data Attestation: I reviewed the patient's lab results. Labs: Laboratory Results - last 24 hr 04/07/25 11:21 WBC 8.1 RBC 4.76 Hgb 14.5 Hct 41.7 MCV 87.6 MCH 30.5 MCHC 34.8 RDW Std Deviation 46.2 H RDW Coeff of [place] 14.3 Plt Count 309 MPV 10.0 Immature Gran % (Auto) 0.500 Neut % (Auto) 66.2 Lymph % (Auto) 20.0 [place] % (Auto) 12.0 H Eos % (Auto) 0.7 Baso % (Auto) 0.6 Absolute Neuts (auto) 5.4 Absolute Lymphs (auto) 1.62 Nucleated RBC % 0 Sodium 132 L Potassium 4.5 Chloride 100 Carbon Dioxide 21.1 Anion Gap 11 BUN 8 Creatinine 0.62 L Estim Creat Clear Calc 61.74 Est GFR (MDRD) Non-Af 103 BUN/Creatinine Ratio 12.7 Glucose 84 Calcium 8.9 Radiography Diagnostic Testing: Clinical Impression(s) from Imaging Studies Chest X-Ray 04/07/25 12:31 IMPRESSION: Status post small caliber chest tube placement for treatment of a left pneumothorax. The left pneumothorax has resolved. Reading Location: [place] [address] Management Discussion w/another healthcare provider: Hospitalist and House Wrecker (surgery [place] - ok to follow;pulm not avail) Procedures Other Procedures Procedure(s): Left thoracostomy: After informed consent from the patient, he wasgiven morphine beforehand, as well as local lidocaine 2 cc left midclavicular line second-third area intercostal space,I aspirated a small amount of air overtop of the third rib, deployed lidocaine into the area, sterilized with chlorhexidine and draped in a sterile fashion, made a small incision in the skinwith the included #11 blade, and placed UreSil thoracostomy via modified Seldinger technique, aspirated air, tolerated well no complications. We connected this to Pleur-evac, patient is making good tidal volumes with the water and the vacuum and there is a small air leak when he exhales. 2 view chest x-ray shows improvement. Tolerated well, no complications. Discharge Plan Dx/Rx/DC Orders Clinical Impression: Iatrogenic pneumothorax, COPD (chronic obstructive pulmonary disease), Hypoxemia Disposition Disposition: Acute Care [facility] What to do if you have Problems For any increased pain, shortness of breath, bleeding, nausea or vomiting, chestpain, or any unexpected problems, contact your Primary Care Provider. Call [facility] ([phone]) or report tothe closest Emergency Room. Call 911 if necessary. 04/07/25 1303 Cosigner Signature (if applicable): CC: JESUS CALLAHAN ~ Signed [facility]05-30-2025 Radiology Diagnostic study note [facility] Imaging Services [address] [place] [address] Chest Insp/Exp 2 View MR#: [id number] Acct: [id number] Name: PATRICK ANDRES Jr. Rep #: [id number] : 1955 M 70 From: Siva Barahona MD PCP: JESUS CALLAHAN Status: REG E R Study:Chest Insp/Exp 2 View Date of Exam: 04/07/25 Exam# [id number] Ordering Dr: Cindy Shultz MD EXAM: Chest inspiration expiration views CLINICAL HISTORY: Left-sided pneumothorax following a left lung biopsy. COMPARISON: Prior study done earlier in the day. TECHNIQUE: Inspiration expiration views were obtained. FINDINGS: A small caliber chest tube has been placed in the upper aspect of the left hemithorax. The left-sided pneumothorax has not resolved. RAD/Chest Insp/Exp 2 View IMPRESSION: Status post small caliber chest tube placement for treatment of a left pneumothorax. The left pneumothorax has resolved. Reading Location: [place] [address] CC: Dr. Stefan Shultz MD; JESUS CALLAHAN ~ Electronics Lead: Signed [facility]05-30-2025 Radiology Diagnostic study note [facility] Imaging Services [address] [place] [address] Biopsy/Inj or Needle Placement MR#: [id number] Acct: [id number] Name: PATRICK ANDRES Jr. Rep #: [id number] : 1955 M 70 From: Siva Barahona MD PCP: JESUS CALLAHAN Status: REG C LI Study:Biopsy/Inj or Needle Placement Date of Exam: 04/07/25 Exam# [id number] Ordering Dr: Jonathan Ledezma NP PROCEDURE: BIOPSY/INJ OR NEEDLE PLACEMENT 04/07/2025. CT-guided lung biopsy of a left lowerlobe nodule. REASON FOR EXAM: LEFT UPPER LOBE NODULE INCREASING IN SIZE TECHNIQUE: The procedure as well as the benefits and possible complications including infection and bleeding were explained to the patient. Possibility of a pneumothorax was also explained. The patient signed informed consent. The patient was in the prone position. Conscious sedation was performed. The patient received 2 mg of Versed and 50 mcg of fentanyl intravenously. Conscious sedation was started at 10:09 a.m. and terminated at 10:28 a.m.. The overlying skin was prepped and draped in the usual sterile fashion. Following local anesthetic application, a 20 gauge biopsy needle was placed into the left lower lobe pulmonary nodule. 4 core biopsies were obtained. The specimen was deemed adequate by the pathologist. Following the procedure, the patient developed a 20% pneumothorax. The patient was treated appropriately. One or more dose reduction techniques were used (e.g., Automated exposure control, adjustment of the mA and/or kV according to patient size, use of iterative reconstruction technique). RADIATION DOSE SUMMARY: CTDlvol: 14.5 mGy DLP: 193.66 mGycm COMPARISON: Prior study dated March 02, 2025. FINDINGS: Successful CT-guided biopsy of the left lower lobe pulmonary nodule. CT/Biopsy/Inj or Needle Placement IMPRESSION: Successful percutaneous biopsy of a left lower lobe pulmonary nodule as described. The patient tolerated the procedure well. The patient developed a left-sided pneumothorax which was treated appropriately. Reading Location: [place] [address] CC: FRIEDA Ledezma; JESUS CALLAHAN ~ Electronics Lead: Signed [facility]05-30-2025 Radiology Diagnostic study note [facility] Imaging Services [address] [place] [address] [id number] Chest Insp/Exp 2 View MR#: [id number] Acct: [id number] Name: PATRICK ANDRES Jr. Rep #: [id number] : 1955 M 70 From: Siva Barahona MD PCP: JESUS CALLAHAN Status: REG C LI Study:Chest Insp/Exp 2 View Date of Exam: 04/07/25 Exam# [id number] Ordering Dr: Saulo Dowd i, MD EXAM: AP inspiration views. CLINICAL HISTORY: Status post left lung biopsy. COMPARISON: Prior study dated January 15, 2024. TECHNIQUE: AP inspiration views were obtained immediately following the left lung biopsy. FINDINGS: There is evidence of a 20% left-sided pneumothorax. The patient is symptomatic. The patient was sent to the emergency room for appropriate treatment. RAD/Chest Insp/Exp 2 View IMPRESSION: 20% left-sided pneumothorax following a CT-guided left lung biopsy. The patient was sent to the emergency room for appropriate treatment. Reading Location: [facility] CC: Dr. Saulo Barahona MD; JESUS CALLAHAN ~ Electronics Lead: Signed [facility]05-06-2025 Evaluation note* Diagnosis Onset Date Resolution Status Admit Date COPD (chronic obstructive pulmonary disease) chronic March 14, 2025 8:33am Mediastinal lymphadenopathy inactive March 14, 2025 8:33am Stenosis of right internal carotid artery inactive March 14, 2025 8: 33am Tobacco use disorder inactive March 14, 2025 8:33am COPD (chronic obstructive pulmonary disease) chronic April 07 1:24pm Hypoxemia resolved April 07, 2025 1:24pm Iatrogenic pneumothorax resolved M ay 2024 1:24pm 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 acute April 19, 2025 7:40am COPD (chronic obstructive pulmonary disease) chronic April 19 7:40am Stenosis of right internal carotid artery inactive April 19, 2025 7:40am Tobacco use disorder inactive April 19, 2025 7:40am 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 acute May 01, 2025 9:12am 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 acute May 29, 2025 10:21am 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 acute May 31, 2025 12:40pm 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 acute June 05, 2025 12:04pm [facility] Work Phone: 1(122) 473-977505-06-2025 Evaluation note* Diagnosis Onset Date Resolution Status Admit Date COPD (chronic obstructive pulmonary disease) chronic March 14, 2025 8:33am Mediastinal lymphadenopathy inactive March 14, 2025 8:33am Stenosis of right internal carotid artery inactive March 14, 2025 8: 33am Tobacco use disorder inactive March 14, 2025 8:33am COPD (chronic obstructive pulmonary disease) chronic April 07 1:24pm Hypoxemia resolved April 07, 2025 1:24pm Iatrogenic pneumothorax resolved M ay 2024 1:24pm 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 acute April 19, 2025 7:40am COPD (chronic obstructive pulmonary disease) chronic April 19 7:40am Stenosis of right internal carotid artery inactive April 19, 2025 7:40am Tobacco use disorder inactive April 19, 2025 7:40am 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 acute May 01, 2025 9:12am 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 acute May 29, 2025 10:21am 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 acute May 31, 2025 12:40pm 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 acute June 05, 2025 12:04pm 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 acute June 12, 2025 9:26am [place] [employer] Work Phone: 1([phone]) 778-805305-06-2025 Evaluation note* Diagnosis Onset Date Resolution Status Admit Date COPD (chronic obstructive pulmonary disease) chronic March 14, 2025 8:33am Mediastinal lymphadenopathy inactive March 14, 2025 8:33am Stenosis of right internal carotid artery inactive March 14, 2025 8: 33am Tobacco use disorder inactive March 14, 2025 8:33am COPD (chronic obstructive pulmonary disease) chronic April 07 1:24pm Hypoxemia resolved April 07, 2025 1:24pm Iatrogenic pneumothorax resolved M ay 2024 1:24pm 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 acute April 19, 2025 7:40am COPD (chronic obstructive pulmonary disease) chronic April 19 7:40am Stenosis of right internal carotid artery inactive April 19, 2025 7:40am Tobacco use disorder inactive April 19, 2025 7:40am 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 acute May 01, 2025 9:12am 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 acute May 29, 2025 10:21am 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 acute May 31, 2025 12:40pm 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 acute June 05, 2025 12:04pm 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 acute June 12, 2025 9:26am Encounter for education acute A ugust 2024 9:26am 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 acute June 14, 2025 7:35am Chemotherapy management, encounter for acute June 14, 2025 7:35am Immunotherapy encounter acute A ugust 2024 7:35am [facility] Work Phone: 1([phone]) [phone] Evaluation note* Diagnosis Onset Date Resolution Status Admit Date COPD (chronic obstructive pulmonary disease) chronic March 14, 2025 8:33am Mediastinal lymphadenopathy inactive March 14, 2025 8:33am Stenosis of right internal carotid artery inactive March 14, 2025 8: 33am Tobacco use disorder inactive March 14, 2025 8:33am COPD (chronic obstructive pulmonary disease) chronic April 07 1:24pm Hypoxemia resolved April 07, 2025 1:24pm Iatrogenic pneumothorax resolved M ay 2024 1:24pm 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 acute April 19, 2025 7:40am COPD (chronic obstructive pulmonary disease) chronic April 19 7:40am Stenosis of right internal carotid artery inactive April 19, 2025 7:40am Tobacco use disorder inactive April 19, 2025 7:40am 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 acute May 01, 2025 9:12am 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 acute May 29, 2025 10:21am 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 acute May 31, 2025 12:40pm 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 acute June 05, 2025 12:04pm 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 acute June 12, 2025 9:26am Encounter for education acute A ugust 2024 9:26am 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 acute June 14, 2025 7:35am Chemotherapy management, encounter for acute June 14, 2025 7:35am Immunotherapy encounter acute A ugust 2024 7:35am 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 acute June 29 8:52am [facility] Work Phone: [phone]) [phone] Evaluation note* Diagnosis Onset Date Resolution Status Admit Date COPD (chronic obstructive pulmonary disease) chronic March 14, 2025 8:33am Mediastinal lymphadenopathy inactive March 14, 2025 8:33am Stenosis of right internal carotid artery inactive March 14, 2025 8: 33am Tobacco use disorder inactive March 14, 2025 8:33am COPD (chronic obstructive pulmonary disease) chronic April 07 1:24pm Hypoxemia resolved April 07, 2025 1:24pm Iatrogenic pneumothorax resolved M 2024 1:24pm 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 acute April 19, 2025 7:40am COPD (chronic obstructive pulmonary disease) chronic April 19 7:40am Stenosis of right internal carotid artery inactive April 19, 2025 7:40am Tobacco use disorder inactive April 19, 2025 7:40am 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 acute May 01, 2025 9:12am 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 acute May 29, 2025 10:21am 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 acute May 31, 2025 12:40pm 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 acute June 05, 2025 12:04pm 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 acute June 12, 2025 9:26am Encounter for education acute A ugust 2024 9:26am 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 acute June 14, 2025 7:35am Chemotherapy management, encounter for acute June 14, 2025 7:35am Immunotherapy encounter acute A ugust 2024 7:35am 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 acute June 29 8:52am Constipation acute June 29, 2025 8:52am Drug induced neutropenia acute June 29, 2025 8:52am 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 acute July 05 8:17am Constipation acute July 05, 2025 8:17am Drug induced neutropenia acute July 05, 2025 8:17am [facility] Work Phone: 1([phone]) 197-386703-25-2025 Evaluation note* Diagnosis Onset Date Resolution Status Admit Date COPD (chronic obstructive pulmonary disease) chronic January 31, 2 025 8:49am Mediastinal lymphadenopathy inactive January 31, 2025 8:49am Tobacco use disorder inactive [place] h 2024 8:49am COPD (chronic obstructive pulmonary disease) chronic March 14, 2025 8:33am Mediastinal lymphadenopathy inactive March 14, 2025 8:33am Stenosis of right internal carotid artery inactive March 14, 2025 8: 33am Tobacco use disorder inactive March 14, 2025 8:33am COPD (chronic obstructive pulmonary disease) chronic April 07 1:24pm Hypoxemia resolved April 07, 2025 1:24pm Iatrogenic pneumothorax resolved M 2024 1:24pm 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 acute April 19, 2025 7:40am COPD (chronic obstructive pulmonary disease) chronic April 19 7:40am Stenosis of right internal carotid artery inactive April 19, 2025 7:40am Tobacco use disorder inactive April 19, 2025 7:40am [facility] Work Phone: [phone]) 184-316703-25-2025 Evaluation note* Diagnosis Onset Date Resolution Status Admit Date COPD (chronic obstructive pulmonary disease) chronic January 31, 2 025 8:49am Mediastinal lymphadenopathy inactive January 31, 2025 8:49am Tobacco use disorder inactive [place] h 2024 8:49am COPD (chronic obstructive pulmonary disease) chronic March 14, 2025 8:33am Mediastinal lymphadenopathy inactive March 14, 2025 8:33am Stenosis of right internal carotid artery inactive March 14, 2025 8: 33am Tobacco use disorder inactive March 14, 2025 8:33am COPD (chronic obstructive pulmonary disease) chronic April 07 1:24pm Hypoxemia resolved April 07, 2025 1:24pm Iatrogenic pneumothorax resolved M ay 2024 1:24pm 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 acute April 19, 2025 7:40am COPD (chronic obstructive pulmonary disease) chronic April 19 7:40am Stenosis of right internal carotid artery inactive April 19, 2025 7:40am Tobacco use disorder inactive April 19, 2025 7:40am 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 acute May 01, 2025 9:12am [place] [employer] Work Phone: [phone]) [phone] Evaluation note* Diagnosis Onset Date Resolution Status Admit Date COPD (chronic obstructive pulmonary disease) chronic January 31, 025 8:49am Mediastinal lymphadenopathy inactive January 31, 2025 8:49am Tobacco use disorder inactive 2024 8:49am COPD (chronic obstructive pulmonary disease) chronic March 14, 2025 8:33am Mediastinal lymphadenopathy inactive March 14, 2025 8:33am Stenosis of right internal carotid artery inactive March 14, 2025 8: 33am Tobacco use disorder inactive March 14, 2025 8:33am COPD (chronic obstructive pulmonary disease) chronic April 07 1:24pm Hypoxemia resolved April 07, 2025 1:24pm Iatrogenic pneumothorax resolved M ay 2024 1:24pm 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 acute April 19, 2025 7:40am COPD (chronic obstructive pulmonary disease) chronic April 19 7:40am Stenosis of right internal carotid artery inactive April 19, 2025 7:40am Tobacco use disorder inactive April 19, 2025 7:40am 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 acute May 01, 2025 9:12am 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 acute May 29, 2025 10:21am [place] [employer] Work Phone: 1([phone]) 675-112103-25-2025 Evaluation note* Diagnosis Onset Date Resolution Status Admit Date COPD (chronic obstructive pulmonary disease) chronic January 31 025 8:49am Mediastinal lymphadenopathy inactive January 31, 2025 8:49am Tobacco use disorder inactive [place] h 2024 8:49am COPD (chronic obstructive pulmonary disease) chronic March 14, 2025 8:33am Mediastinal lymphadenopathy inactive March 14, 2025 8:33am Stenosis of right internal carotid artery inactive March 14, 2025 8: 33am Tobacco use disorder inactive March 14, 2025 8:33am COPD (chronic obstructive pulmonary disease) chronic April 07 1:24pm Hypoxemia resolved April 07, 2025 1:24pm Iatrogenic pneumothorax resolved M 2024 1:24pm 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 acute April 19, 2025 7:40am COPD (chronic obstructive pulmonary disease) chronic April 19 7:40am Stenosis of right internal carotid artery inactive April 19, 2025 7:40am Tobacco use disorder inactive April 19, 2025 7:40am 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 acute May 01, 2025 9:12am 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 acute May 29, 2025 10:21am 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 acute May 31, 2025 12:40pm [facility] Work Phone: 1([phone]) 301-184202-17-2025 Evaluation note* Diagnosis Onset Date Resolution Status Admit Date Stenosis of right internal carotid artery chronic December 26 025 12:57pm Mediastinal lymphadenopathy acute January 31, 2025 8:49am COPD (chronic obstructive pulmonary disease) chronic January 31 8:49am Tobacco use disorder chronic [place] h 2024 8:49am Mediastinal lymphadenopathy acute March 14, 2025 8:33am COPD (chronic obstructive pulmonary disease) chronic March 14, 2025 8:33am Stenosis of right internal carotid artery chronic March 14, 2025 8: 33am Tobacco use disorder chronic March 14, 2025 8:33am [facility] Work Phone: 1([phone]) 857-310902-17-2025 Evaluation note* Diagnosis Onset Date Resolution Status Admit Date Stenosis of right internal carotid artery chronic December 26, 025 12:57pm Mediastinal lymphadenopathy acute January 31, 2025 8:49am COPD (chronic obstructive pulmonary disease) chronic January 31 8:49am Tobacco use disorder chronic [place] h 2024 8:49am Mediastinal lymphadenopathy acute March 14, 2025 8:33am COPD (chronic obstructive pulmonary disease) chronic March 14, 2025 8:33am Stenosis of right internal carotid artery chronic March 14, 2025 8: 33am Tobacco use disorder chronic March 14, 2025 8:33am Hypoxemia acute April 07, 2025 1:24pm Iatrogenic pneumothorax acute M ay 2024 1:24pm COPD (chronic obstructive pulmonary disease) chronic April 07 1:24pm [facility] Work Phone: 1([phone]) 568-776302-17-2025 Evaluation note* Diagnosis Onset Date Resolution Status Admit Date Stenosis of right internal carotid artery inactive December 26 12:57pm COPD (chronic obstructive pulmonary disease) chronic January 31 8:49am Mediastinal lymphadenopathy inactive January 31, 2025 8:49am Tobacco use disorder inactive 2024 8:49am COPD (chronic obstructive pulmonary disease) chronic March 14, 2025 8:33am Mediastinal lymphadenopathy inactive March 14, 2025 8:33am Stenosis of right internal carotid artery inactive March 14, 2025 8: 33am Tobacco use disorder inactive March 14, 2025 8:33am COPD (chronic obstructive pulmonary disease) chronic April 07 1:24pm Hypoxemia resolved April 07, 2025 1:24pm Iatrogenic pneumothorax resolved M ay 2024 1:24pm 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 acute April 19, 2025 7:40am COPD (chronic obstructive pulmonary disease) chronic April 19 7:40am Stenosis of right internal carotid artery inactive April 19, 2025 7:40am Tobacco use disorder inactive April 19, 2025 7:40am [facility] Work Phone: 1([phone]) 586-795612-31-2024 [facility]12-30-2024 Evaluation note* Diagnosis Onset Date Resolution Status Admit Date Adverse drug reaction acute Dec ember 2023 12:43am Hypokalemia acute October 12:43am Hyponatremia acute October 12:43am Mass of left lung acute Decembe r 2023 12:43am Syncope and collapse acute Dece mber 2023 12:43am Chronic alcohol abuse chronic Dec ember 2023 12:43am Pulmonary nodules chronic Decembe r 2023 12:43am Tobacco use disorder chronic Dece mber 2023 12:43am Orthostatic hypotension resolved D ecember 2023 12:43am Stenosis of right internal carotid artery chronic November 11 12:47pm Stenosis of right internal carotid artery chronic December 26, 025 12:57pm Mediastinal lymphadenopathy acute January 31, 2025 8:49am COPD (chronic obstructive pulmonary disease) chronic January 31 8:49am Tobacco use disorder chronic Wilsno 2024 8:49am [facility] Work Phone: 1(296) 288-492903-11-[address] [facility] 01-09-2024 Discharge summary Author Emma Wilson [facility] January 09, 2024 1:30pm Note Date/Time January 09, 2024 10:1 5am [facility] Medical Records Department [address] [place] [address] Discharge Summary 01/09/24 1008 MR#: [id number] Acct: [id number] Name: PATRICK ANDRES Jr. Rep #:[id number] : 1955 68 From: Emma Wilson DO PCP: JESUS CALLAHAN Status:ADM I NO Location: [place] [address] Providers Date of Admission: 01/08/24 Date of Discharge: 01/09/24 Primary Care Physician: FRIEDA KEARNEY Consultations 01/08/24 13:23 Consult: General Surgery Routine Consulting Provider: Caden Lockwood Reason for Consult: L PTX EMERGENT Consult: No MD Notified: Yes Date Notified: 01/08/24 Time Notified: 11:51 Method of Notification: phone Reason For Visit: R PNEUMOTHORAX Diagnosis Discharge Diagnosis (1) Iatrogenic pneumothorax: Status: Acute Code(s): J95.811 - Postprocedural pneumothorax Plan Iatrogenic pneumothorax -Patient was undergoing biopsy for pulmonary nodule and unfortunately developed postprocedure pneumothorax -Chest tube placement in the ED -Good reexpansion on follow-up chest x-ray -Supplemental oxygen as needed however patient is currently on room air and stable at 93% -General surgery to assist with chest tube management -Chest tube to suction Abnormal lung mass -Biopsy performed -Outpatient follow-up with pulmonary medicine after discharge Abnormal EKG -Patient without any active symptoms -It appears that he has had a previous anterior and inferior WV -We will cycle cardiac enzymes -Obtain previous medical records in the form of echo and EKG from [facility] if available -Start aspirin 81 mg daily -Check lipids -Will make cardiology referral at discharge Hypertension -Continue home antihypertensives BPH with obstruction -Continue home Flomax Left eye infection with clogged tear duct -Surgery upcoming -Continue ophthalmic erythromycin Tobacco abuse -Recommend cessation -Nicotine patch -Patient smoking 1 and half packs of day DVT prophylaxis -Lovenox subcu daily CODE STATUS -Full code Medications at Discharge Home Medications erythromycin 5 mg/gram (0.5 %) eye ointment 1 applic ophthalmic (eye) Q6H 12/29/23 irbesartan 150 mg-hydrochlorothiazide 12.5 mg tablet 1 tab PO DAILY 12/29/23 tamsulosin 0.4 mg capsule 0.4 mg PO DAILY 12/29/23 aspirin 81 mg capsule 81 mg PO DAILY #30 caps 01/09/24 Hospital Course Procedures EKG and - (Chest tube placement and removal/chest x-ray) Summary of Care Provided Minutes Spent on Discharge: 36 Hospital Course: Mr. Andres is a 68-year-old white male who presented to the emergency department [facility] on 01/08/2024 for an iatrogenic pneumothoraxthat he sustained after undergoing a CT-guided biopsy for left-sided lung mass. He evidently underwent a low-dose CT scan at [facility] on 12/16/2023 that demonstrated bilateral emphysematous changes along with an area ofbronchiectasis and a spiculated left lower lobe pulmonary nodule that measured 1cm in diameter PET scan was performed and showed abnormal uptake so CT-guided biopsy was performed. The procedure was done on 01/08/2024 but unfortunately postprocedure x-rays noted about a 25 to 30% pneumothorax on the left side. He was transferred to the emergency department where a thoracostomy tube was placed in the left chest by the emergency department physician. He was not hypoxic. Vital signs at the time of admission demonstrated temperature of 97.6, heart rate 65, blood pressure is 152/73, respiratory was 20 oxygen saturations were 96% on room air. His CBC was unremarkable. Coags were normal. Chemistry panelwas overtly unremarkable. I did know on his and initial monitor he had T wave inversions so I obtained an EKG and he has T wave inversions in the anterior lateral leads. He denied any chest pain and does not recollect ever having any symptoms of a myocardial infarction. We did cycle his cardiac enzymes while he was hospitalized and they were normal x 3. We did start him on a baby aspirin and I have advised him to follow-up with cardiology as an outpatient due to his EKG changes. I compared them to a previous EKG that was done in 2016 and he hadno abnormalities at that time. I suspect he may have had a cardiac event between 2016 and now but patient is unable to recollect a time when he had any symptoms consistent with [place]. I have asked him to see Dr. Franks or first available in the next 2 weeks for follow-up of this. With regards to his chest tube General surgery was consulted for management. Pleur-evac was added to the circuit to check for leak and no airleak was identified so chest x-ray was repeated this morning and he had no identifiable pneumothorax at that time. No airleak persisted and was placed to waterseal. Repeat chest x-ray showed no pneumothorax and the chest tube was removed with a follow-up chest x-ray performed 2 hours following and no pneumothorax identified. General surgery felt he was stable for discharge and would follow-up with a chest x-ray as an outpatient in a week and we will see him at that time. I have advised him to follow-up with his primary care physician as needed and follow-up with pulmonarymedicine with regards to his biopsy results and call for appointment or follow-up as previously recommended. Resting and ambulatory pulse ox was obtained and he was stable on room air. He was discharged home in stable condition on 01/09/2024. Discharge diagnoses: Iatrogenic pneumothorax Abnormal lung mass Abnormal EKG Hypertension BPH with obstruction Left eye infection with clogged tear duct Tobacco abuse Weight / BMI Weight Weight: 50.802 kg Body Mass Index (BMI) 19.2 ABG / Lab / Microbiology Data 01/08/24 12:58 01/08/24 12:58 Laboratory: Laboratory Results - last 24 hr 01/08/24 12:58: WBC 8.5, RBC 4.36 L, Hgb 13.4, Hct 38.9 L, MCV 89.2, MCH 30.7, MCHC 34.4, RDW Std Deviation 42.7, RDW Coeff of [place] 13.1, Plt Count 289, MPV 9.6, Immature Gran % (Auto) 0.100, Neut % (Auto) 63.0, Lymph % (Auto) 25.8, [place]% (Auto) 9.7, Eos % (Auto) 0.9, Baso % (Auto) 0.5, Absolute Neuts (auto) 5.4, Absolute Lymphs (auto) 2.20, Nucleated RBC % 0, Sodium 134 L, Potassium 4.4, Chloride 107, Carbon Dioxide 24.0, Anion Gap 3 L, BUN 11, Creatinine 0.63 L, Estim Creat Clear Calc 67.50, Est GFR (MDRD) Af Amer 163, Est GFR (MDRD) Non-Af 135, BUN/Creatinine Ratio 17.5, Glucose 84, Calcium 8.5, Total Bilirubin 0.60, AST 33, ALT 35, Alkaline Phosphatase 93, Total Protein 6.4, Albumin 2.8 L, Globulin 3.6, Albumin/Globulin Ratio 0.8 L, Triglycerides 61, Cholesterol 159, LDL Cholesterol 76, VLDL Cholesterol 12, HDL Cholesterol 71 01/08/24 14:07: Troponin I High Sens 20 01/08/24 16:06: Troponin I High Sens 19 01/08/24 19:59: Troponin I High Sens 16 Radiography Diagnostic Testing: Radiology Impression Chest X-Ray 01/08/24 11:22 IMPRESSION: Placement of left thoracostomy tube with resolution of left pneumothorax. Electronically Signed: Michael Davis MD at 11:55 EST , Chest X-Ray 01/09/24 05:11 IMPRESSION: Stable left chest tube. No pneumothorax. Left lung mass with improvement of adjacent consolidation. Electronically Signed: Stefan Coreas MD at 9:48 EST , Chest X-Ray 01/09/24 09:10 IMPRESSION: Stable left chest tube. No pneumothorax. Left lung mass with improvement of adjacent consolidation. Electronically Signed: Stefan Coreas MD at 9:46 EST Reading Location ID and State: [address] [place] [address] , Service support , D/C Instructions Discharge Diet: Low fat / Low cholesterol Discharge Activity: Return to Normal Activity and No Restrictions Meaningful Use Info Meaningful Use Diagnoses (Choose all that apply): None applicable Discharge Plan Admission Admit Date/Time: 01/08/24 11:44 Primary Reason for Your Visit: Pneumothorax Attending Provider: Emma Wilson Primary Care Provider: JESUS CALLAHAN Consulting Providers: Caden Lockwood Discharge Orders/Prescriptions Prescriptions: New aspirin 81 mg capsule 81 mg PO DAILY Qty: 30 0RF Continued irbesartan-hydrochlorothiazide 150-12.5 mg tablet 1 tab PO DAILY Patient Comments: TAKE 1 TABLET BY MOUTH EVERY DAY tamsulosin 0.4 mg capsule 0.4 mg PO DAILY Patient Comments: TAKE 1 CAPSULE BY MOUTH EVERY DAY erythromycin 5 mg/gram (0.5 %) ointment 1 applic ophthalmic (eye) Q6H Patient Comments: apply 1/2-inch ribbon IN THE LEFT EYE FOUR TIMES DAILY Other Ambulatory Orders: Chest PA and Lateral (Routine) Timeframe: 1 Week Facility: [facility] - Location: [facility] Ordered By: Dr. Caden Lockwood Referrals / Follow Up: Pierre Catalan DO [Med Staff - Active Staff] - See Referral Note (Call Thursday to set up follow-up for after your biopsy if this is not already been established) Lenny Franks MD [Med Staff - Active Staff] - Within 2 Weeks (call on Thursday and make an appt to be seen for abn EKG noted while you were in the hospital) JESUS CALLAHAN MASTER DATA ANALYST-C [Primary Care Provider] - See Referral Note (as needed) Disposition Disposition (needs filled in before D/C Order can be placed): Home, Self Care Charges/Coding Visit Charges Inpatient E&M: 09032 Disch Hosp >30min 01/09/24 1330 <Electronically signed by Emma Wilson DO> Cosigner Signature (if applicable): CC: Dr. Pierre Catalan DO; Dr. Emma Wilson DO; Dr. Lenny Franks MD; JESUS CALLAHAN~ Signed [facility] Work Phone: 1(520) 547-653303-02-2024 Progress note Author Caden Lockwood [facility] January 09, 2024 9:58am Note Date/Time January 09, 2024 9:58 am [facility] Medical Records Department [address] [place] [address] Progress Note 01/09/24 0957 MR#: [id number] Acct: [id number] Name: PATRICK ANDRES Jr. Rep #:[id number] : 1955 68 From: Caden juarez MD PCP: JESUS CALLAHAN Status:ADM I NO Location: [place] [id number] Progress Note Patient had chest x-ray which showed no pneumothorax. I removed the chest tube. It was very easily removed and the stitch was removed and the chest tube slid out of bandages placed. Patient tolerated procedure well. I will order anotherchest x- ray for 2 hours from now and as long as that chest or x-ray does not show any recurrence of pneumothorax the patient may be discharged home. Patientshould have follow-up chest x-ray in 1 week to ensure no pneumothorax. He may follow-up with me in a week after chest x-ray is obtained. Caden Lockwood MD Pager: [facility] [address] [place] [address], [address] [place] [address] Office: 01/09/2414 <Electronically signed by Caden Lockwood MD> Caden Lockwood MD Cosigner Signature (if applicable): CC: ~ Signed [facility] Work Phone: 1(717) 160-987403-02-2024 Progress note Author Caden Lockwood [facility] January 09, 2024 8:12am Note Date/Time January 09, 2024 8:12 am [facility] Medical Records Department [address] [place] [address] Progress Note - Surgery 01/09/24 0812 MR#: [id number] Acct: [id number] Name: PATRICK ANDRES Jr. Rep #:[id number] : 1955 68 From: Caden juarez MD PCP: JESUS CALLAHAN MASTER DATA ANALYSTTrina Status:ADM I NO Location: [place] [address] Subjective Subjective Patient is comfortable with no issues overnight Objective Data Objective Data Vital Signs: Vital Signs Temp Pulse Resp BP Pulse Ox O2 Del Method O2 Flow Rate 97.8 F 55 L 15 101/58 L 97 Room Air 2 01/09/24 02:10 01/09/24 02:10 01/09/24 04:00 01/09/24 02:10 01/09/24 02:10 01/09/24 04:00 01/09/24 02:10 Oxygen Flow Rate (L/min) 2 Oxygen Delivery Method Room Air Weight: 112 lb Body Mass Index (BMI) 19.2 Intake & Output: Intake and Output for Last 24 Hours 01/07/24 01/08/24 01/09/24 23:59 23:59 23:59 Intake Total 250 / 250 100 / 100 Output Total 600 / 600 Balance 250 / 250 -500 / -500 Lab / Micro Data 01/08/24 12:58 01/08/24 12:58 Labs: Laboratory Results - last 24 hr 01/08/24 12:58: WBC 8.5, RBC 4.36 L, Hgb 13.4, Hct 38.9 L, MCV 89.2, MCH 30.7, MCHC 34.4, RDW Std Deviation 42.7, RDW Coeff of [place] 13.1, Plt Count 289, MPV 9.6, Immature Gran % (Auto) 0.100, Neut % (Auto) 63.0, Lymph % (Auto) 25.8, [place]% (Auto) 9.7, Eos % (Auto) 0.9, Baso % (Auto) 0.5, Absolute Neuts (auto) 5.4, Absolute Lymphs (auto) 2.20, Nucleated RBC % 0, Sodium 134 L, Potassium 4.4, Chloride 107, Carbon Dioxide 24.0, Anion Gap 3 L, BUN 11, Creatinine 0.63 L, Estim Creat Clear Calc 67.50, Est GFR (MDRD) Af Amer 163, Est GFR (MDRD) Non-Af 135, BUN/Creatinine Ratio 17.5, Glucose 84, Calcium 8.5, Total Bilirubin 0.60, AST 33, ALT 35, Alkaline Phosphatase 93, Total Protein 6.4, Albumin 2.8 L, Globulin 3.6, Albumin/Globulin Ratio 0.8 L, Triglycerides 61, Cholesterol 159, LDL Cholesterol 76, VLDL Cholesterol 12, HDL Cholesterol 71 01/08/24 14:07: Troponin I High Sens 20 01/08/24 16:06: Troponin I High Sens 19 01/08/24 19:59: Troponin I High Sens 16 Radiography Diagnostic Testing: Radiology Impression Chest X-Ray 01/08/24 11:22 IMPRESSION: Placement of left thoracostomy tube with resolution of left pneumothorax. Electronically Signed: Michael Davis MD at 11:55 EST , Physical Exam Const oriented x3 and no apparent distress Resp normal respiratory effort Cardio regular rate and regular rhythm GI soft to palpation and non-tender Assessment & Plan Assessment/Plan (1) Iatrogenic pneumothorax: PLAN: Patient had pneumothorax after lung biopsy. He is doing well today and his morning x-ray shows no pneumothorax. There is no airleak. I will place himto waterseal and repeat an x-ray in a few hours and as long as there is no pneumothorax I will remove the chest tube and repeat a post removal x-ray and ifthat is well he can go home. Caden Lockwood MD Pager: [facility] [address] [place] [address], [address] [place] [address] Office: 01/09/24 0812 <Electronically signed by Caden Lockwood MD> Cosigner Signature (if applicable): CC: ~ Signed [facility] Work Phone: 1(559) 128-603703-01-2024 Consult note Author Caden Lockwood [facility] January 08, 2024 4:55pm Note Date/Time January 08, 2024 4:55 pm [facility] Medical Records Department [address] [place] [address] Consultation - Surgical 01/08/24 1653 MR#: [id number] Acct: [id number] Name: PATRICK ANDRES Jr. Rep #:[id number] : 1955 68 From: Caden juarez MD PCP: JESUS CALLAHAN Status:ADM I NO Location: [place] [address] Assessment & Plan Assessment/Plan (1) Iatrogenic pneumothorax: PLAN: The patient had iatrogenic pneumothorax after left lung biopsy. Chest tube is in place. I added a Pleur-evac to the circuit to allow to check for forairleak. After I did I was not able to appreciate an air leak. The patient seems not short of breath. Chest x-ray showed full expansion of the lung. I will repeat a chest x- ray in the morning. Caden Lockwood MD Pager: [facility] [address] [place] [address], [address] [place] [address] Office: HPI Consult Data Date of Consult: 01/08/24 HPI Narrative HPI Narrative: PATRICK ANDRES, is a 68 M who presents with iatrogenic pneumothorax on the left side. Patient had lung biopsy today and had postoperative pneumothorax. He wassent to the emergency room and a chest tube was placed and he was admitted to the floor. Currently he says it is irritating his ribs but he is not short of breath. PENDING SALE TO [facility] Medical History (Updated 01/08/24 @ 13:41 by Aure Kenyon) Hypertension Smoker Vision loss of left eye Home Medications erythromycin 5 mg/gram (0.5 %) eye ointment 1 applic ophthalmic (eye) Q6H 12/29/23 [History Last Taken 01/06/24] irbesartan 150 mg-hydrochlorothiazide 12.5 mg tablet 1 tab PO DAILY 12/29/23 [History Last Taken 01/06/24] tamsulosin 0.4 mg capsule 0.4 mg PO DAILY 12/29/23 [History Last Taken 01/06/24] Allergy/AdvReac Type Severity Reaction Status Date / Time No Known Allergies Allergy Verified 01/08/24 10:17 Family History (Updated 01/08/24 @ 12:[address] Emma Wilson DO) Other Hypertension Surgical History H/O vasectomy Social History (Updated 01/08/24 @ 12:[address] Emma Wilson DO) household members: family housing: house current occupational status: retired Smoking Status: Current every day smoker tobacco type: cigarettes alcohol intake: current alcohol intake frequency: a few times a month substance use type: does not use ROS Constitutional Constitutional: Reports anorexia; Denies chills or fatigue Eyes Eyes: Denies blurry vision ENT HEENT: Denies abnormal hearing Cardiovascular Cardiovascular: Reports chest pain Respiratory/Chest Respiratory/Chest: Denies cough or dyspnea Gastrointestinal Gastrointestinal: Denies abdominal pain Genitourinary Genitourinary: Denies change in urinary stream Musculoskeletal Musculoskeletal: Denies abnormal gait Physical Exam Const alert and oriented x3 HEENT normocephalic Eyes PERRL Neck full ROM Resp normal respiratory effort Cardio Rate: regular rate Rhythm: regular rhythm GI soft to palpation and non-tender Lab / Micro Data 01/08/24 12:58 01/08/24 12:58 Labs: Laboratory Results - last 24 hr 01/08/24 12:58: WBC 8.5, RBC 4.36 L, Hgb 13.4, Hct 38.9 L, MCV 89.2, MCH 30.7, MCHC 34.4, RDW Std Deviation 42.7, RDW Coeff of [place] 13.1, Plt Count 289, MPV 9.6, Immature Gran % (Auto) 0.100, Neut % (Auto) 63.0, Lymph % (Auto) 25.8, [place]% (Auto) 9.7, Eos % (Auto) 0.9, Baso % (Auto) 0.5, Absolute Neuts (auto) 5.4, Absolute Lymphs (auto) 2.20, Nucleated RBC % 0, Sodium 134 L, Potassium 4.4, Chloride 107, Carbon Dioxide 24.0, Anion Gap 3 L, BUN 11, Creatinine 0.63 L, Estim Creat Clear Calc 67.50, Est GFR (MDRD) Af Amer 163, Est GFR (MDRD) Non-Af 135, BUN/Creatinine Ratio 17.5, Glucose 84, Calcium 8.5, Total Bilirubin 0.60, AST 33, ALT 35, Alkaline Phosphatase 93, Total Protein 6.4, Albumin 2.8 L, Globulin 3.6, Albumin/Globulin Ratio 0.8 L, Triglycerides 61, Cholesterol 159, LDL Cholesterol 76, VLDL Cholesterol 12, HDL Cholesterol 71 01/08/24 14:07: Troponin I High Sens 20 01/08/24 16:06: Troponin I High Sens 19 Imaging Radiology Impression Chest X-Ray 01/08/24 11:22 IMPRESSION: Placement of left thoracostomy tube with resolution of left pneumothorax. Electronically Signed: Michael Davis MD at 11:55 EST Reading Location ID and [place] [id number] [facility] [place] , 01/08/24 1652 <Electronically signed by Caden Lockwood MD> Cosigner Signature (if applicable): CC: Dr. Caden Lockwood MD; JESUS CALLAHAN~ Signed [facility] Work Phone: 1(106) 678-509103-01-2024 Discharge summary Author James Lewis [facility] January 08, 2024 4:20pm Note Date/Time January 08, 2024 10:3 0am [facility] Medical Records Department [address] [place] [address] Emergency Department Summary 01/08/24 MR#: [id number] Acct: [id number] Name: PATRICK ANDRES JrQuan Rep #:[id number] : 1955 68 From: James Lewis MD PCP: JESUS CALLAHAN Status:ADM I NO [id number] History of Present Illness Chief Complaint: Shortness of Breath Informant: patient Onset/Context/Timing Onset: Today Current Severity: Mild Maximum Severity: Mild Narrative Narrative: 68-year-old male has a left lung mass. He was undergoing biopsy in radiology when he developed a small pneumothorax. Patient is doing well. Denies any significant complaints. He has no history ofoxygen use at home. He is on no blood thinners. Prior similar symptoms: No Recent Illness/Hospitalization: No PFSH PFS Medical History Hypertension Home Medications erythromycin 5 mg/gram (0.5 %) eye ointment 1 applic ophthalmic (eye) 12/29/23 [History Last Taken Unknown] irbesartan 150 mg-hydrochlorothiazide 12.5 mg tablet 1 tab PO DAILY 12/29/23 [History Last Taken 01/05/24] tamsulosin 0.4 mg capsule 0.4 mg PO DAILY 12/29/23 [History Last Taken Unknown] Allergy/AdvReac Type Severity Reaction Status Date / Time No Known Allergies Allergy Verified 01/08/24 10:17 Surgical History H/O vasectomy Social History Smoking Status: Current every day smoker tobacco type: cigarettes ROS ROS ED ROS Narrative Denies recent illness. Review of Systems ROS Unobtainable: Denies due to encephalopathy Constitutional Constitutional ED: Denies chills or fever(s) Eyes Eyes: Denies blurry vision ENT ENT ED: Denies ear pain Cardiovascular Cardiovascular: Denies palpitations or racing heartbeat Respiratory/Chest Respiratory/Chest: Denies cough or dyspnea Gastrointestinal Gastrointestinal: Denies abdominal pain Genitourinary Genitourinary ED: Denies dysuria or hematuria Musculoskeletal Musculoskeletal: Denies arthralgias Integumentary Denies abscess or Abrasions Neurologic Neurologic: Denies headache(s) Psychiatric Psychiatric: Denies anxiety or depression Endocrine Endocrinology: Denies cold intolerance Hematologic/Lymphatic Hematologic/Lymphatic: Reports none Allergic/Immunologic Allergic/Immunologic ED: Denies mouth swelling, tongue swelling or urticaria EXAM Physical Exam Narrative Exam Narrative: 60-year-old male vital signs stable afebrile. Pulse ox 96% on room air no signshypoxia. H EENT exam unremarkable except lazy eye on the left. Blocked gland on the left which she has upcoming surgery. Neck nontender. Lungs clear to auscultation bilaterally. Slightly diminished on the left. No subcu air or crepitus. Chest wall nontender. Heart regular rate and rhythm rate about 65 nomurmur. Abdomen soft nontender. Moving all 4 extremities. Nontender no edema. Neurologically is awake alert no focal motor deficits. Const Vital Signs: 01/08/24 10:17 01/08/24 10:22 03/01/24 11:34 Temperature 97.6 F L Temperature Source Temporal Pulse Rate 65 86 Respiratory Rate 20 H 16 Respiratory Effort Normal Respiratory Depth Normal Respiratory Pattern Normal Blood Pressure 152/73 H 144/71 H Blood Pressure Mean 99 95 Pulse Ox 96 96 Oxygen Delivery Method Room Air Room Air Room Air Positive well nourished and well developed; Negative for obese, cachectic, contractures or unkempt General Appearance ED: well developed and NAD; Negative for unkempt, cachectic, contractures, cyanotic, diaphoretic or pallor Nutritional Appearance: Negative for cachectic or obese HEENT Reports moist mucous membranes; Denies dry mucous membranes Negative for trauma or tenderness Mouth ED: No dry mucous membranes Mouth: No dry mucous membranes Eyes PERRL and EOMs intact bilaterally General Eye ED: Negative for pale conjunctiva or scleral icterus Neck no lymphadenopathy, supple and no JVD General: Negative for tenderness Lymph Lymphatic: Negative for other Chest Wall inspection of chest normal and palpation of chest normal Resp normal respiratory effort and clear to auscultation bilaterally Resp Narrative: Mildly diminished on the left. Effort and Inspection: Negative for retractions Auscultation: diminished lung sounds; Negative for rales, rhonchi or wheezes Cardio regular rate, regular rhythm, S1 normal heart sound, S2 normal heart sound and no murmurs Palpation: Negative for palpable S3 or palpable S4 Rate: Negative for bradycardia or tachycardic Rhythm: Negative for abnormal rhythm GI normal to inspection, nondistended, normoactive bowel sounds, non-tender, non-distended and no masses Inspection: Negative for abdominal distention Auscultation: normoactive bowel sounds Palpation: soft; Negative for tender, guarding or rebound tenderness present Back/Spine no CVA tenderness General Back: Negative for CVA tenderness Cervical Spine: Negative for cervical spine tenderness Thoracic Spine / Upper Back: Negative for thoracic spinal tenderness or paraspinal muscle tenderness Lumbar Spine / Lower Back: Negative for lumbar spinal tenderness Extremity normal to inspection General Extremety ED: Negative for edema, tenderness or other findings General Extremity: Negative for edema or other findings Neuro CN's II-XII intact bilaterally Sensorium / Orientation: alert; Negative for orientation impaired, lethargic or stuporous Motor Exam: strength 5/5 throughout; Negative for general weakness or strength abnormal Psych mental status grossly normal Appearance: Negative for unkempt Attitude: No agitated Mood & Affect: Negative for depressed, anxious or tearful Skin no rashes or lesions noted and no wounds General Skin Exam: Negative for jaundice or pallor Lesions: No lesion noted Rashes: No rashes noted Trauma: Negative for abrasion Wounds: Negative for wounds noted MDM MDM MDM Narrative Medical decision making narrative: 68-year-old male status post idiopathic left-sided pneumothorax after lung biopsy. Patient is in no distress. He and I discussed the thoracostomy tube placement. Patient is not on any blood thinners. Placed the left thoracostomy tube. Got a good randle of air. Patient was instructed on the procedure. Area was cleaned with soap. It was sterilely draped. I made a small 1 cm incision. Area was locally anesthetized with lidocaine. Place a thoracostomy tube mid axillary line at the level of his nipple. Obtained a good randle of air. And hooked it up to low intermittent suction. Chest x-rays being obtained. Patient tolerated procedure well. Patient given morphine for pain and Zofran to prevent nausea. Chest x-ray postprocedure shows a left lung reexpanded. Thoracostomy tube in good position. I have spoken to the hospitalist patient will be an observation admission to [facility]. History & Record Review Discussion w/independent historian: Patient Additional record(s) reviewed:: Prior inpatient record, Prior outpatient record,Prior ED visit and Prior labs Radiography Diagnostic Testing: Outpatient chest x-ray, interpreted by myself, shows chronic changes. Left-sided pneumothorax 25 to 30% about. Moderate size left lung mass. Chronic changes. Post thoracostomy tube chest x-ray, 2 views, interpreted by myself shows the thoracostomy tube in good position. The left lung reexpanded. And the known left lung mass. Procedures Other Procedures Procedure(s): Left-sided pneumothorax. Placement of left thoracostomy tube. Explained to the patient. He consented. Sterilely draped. Clean the area withsoap. Lateral to the nipple level of the mid axillary line and I did local anesthetic with lidocaine. Small vertical incision with scalpel. 1 cm. Placeda thoracostomy tube. Good randle of air. Aspirated 5 to 10 cc of air. Tube is being dressed. Awaiting postprocedure chest x-ray. Discharge Plan Dx/Rx/DC Orders Clinical Impression: Iatrogenic pneumothorax, Mass of left lung, Thoracostomy tube in place Disposition Disposition: Acute Care Hospital [facility] What to do if you have Problems For any increased pain, shortness of breath, bleeding, nausea or vomiting, chestpain, or any unexpected problems, contact your Primary Care Provider. Call [facility] ([phone]) or report to the closest Emergency Room. Call 911 if necessary. 01/08/24 1620 <Electronically signed by James Lewis MD> Cosigner Signature (if applicable): CC: JESUS CALLAHAN ~ Signed [facility] Work Phone: 1(573) 933-973603-01-2024 History and physical note Author Emma Wilson [facility] January 08, 2024 12:23pm Note Date/Time January 08, 2024 11:5 2am [facility] Medical Records Department [address] [place] [address] H&P Exam - Hospitalist 01/08/24 1151 MR#: [id number] Acct: [id number] Name: PATRICK ANDRES Rep #:[id number] : 1955 68 From: Emma Wilson DO PCP: JESUS CALLAHAN Status:REG E R Location: ED HPI - General General Date of Service: 01/08/24 Chief Complaint: Iatrogenic pneumothorax HPI Narrative PATRICK ANDRES, is a 68 M who presented to the emergency department at [facility] on 01/08/2024 for iatrogenic pneumothorax that he sustained post CT-guided biopsy for a left-sided lung mass. He evidently underwent a low-dose CT scan at [facility] on 12/16/2023 that demonstrated bilateral emphysematous changes along with an area of bronchiectasis and a spiculated left lower lobe pulmonary nodule that measured 1 point centimeter in size. PET scan was performed and did show abnormal uptake so a CT-guided biopsywas performed. The procedure was done today but unfortunately he sustained a postprocedure complication and a 25 to 30% pneumothorax on the left side. He was transferred to the emergency department where a thoracostomy tube was placedby the emergency department physician. He was not has not been hypoxic. Vital signs show temperature of 97.6, heart rate 65, blood pressure 152/73, respiratory to 20 and oxygen saturations have been 96% on room air. Labs had not yet been obtained. PENDING SALE TO [facility] Medical History Hypertension Home Medications erythromycin 5 mg/gram (0.5 %) eye ointment 1 applic ophthalmic (eye) 12/29/23 [History Last Taken Unknown] irbesartan 150 mg-hydrochlorothiazide 12.5 mg tablet 1 tab PO DAILY 12/29/23 [History Last Taken 01/05/24] tamsulosin 0.4 mg capsule 0.4 mg PO DAILY 12/29/23 [History Last Taken Unknown] Allergy/AdvReac Type Severity Reaction Status Date / Time No Known Allergies Allergy Verified 01/08/24 10:17 Family History (Updated 01/08/24 @ 12:[address] Emma Wilson DO) Other Hypertension Surgical History H/O vasectomy Social History (Updated 01/08/24 @ 12:[address] Emma Wilson DO) household members: family housing: house current occupational status: retired Smoking Status: Current every day smoker tobacco type: cigarettes Smoking packsper day: 1.5 Smoking cigarettes per day: 30.0 alcohol intake: current alcohol intake frequency: a few times a month substance use type: does not use ROS Constitutional Constitutional: Denies anorexia, change in weight, chills, fatigue, fever(s), malaise, night sweats, weakness or other Eyes Eyes: Reports erythema and eye pain; Denies blurry vision, change in eye color, change in vision, discharge from eye(s), double vision, loss of vision or other ENT HEENT: Denies abnormal hearing, dysphagia, ear pain, epistaxis, headache(s), hearing loss, nasal congestion, nasal discharge, post nasal drip, sinus pressure, sore throat or other Cardiovascular Cardiovascular: Denies chest pain, claudication, dyspnea on exertion, edema, lightheadedness, orthopnea, palpitations, paroxysmal nocturnal dyspnea, rapid heart rate, syncope or other Respiratory/Chest Respiratory/Chest: Reports cough; Denies dyspnea, excessive phlegm production, hemoptysis, productive cough, shortness of breath at rest, shortness of breath with exertion, wheezing or other Gastrointestinal Gastrointestinal: Denies abdominal pain, coffee ground emesis, constipation, diarrhea, dyspepsia, hematemesis, hematochezia, loose stools, melena, nausea, vomiting or other Genitourinary Genitourinary: Reports difficulty urinating, nocturia and urinary hesitancy; Denies burning urination, dysuria, hematuria, urinary frequency, urinary incontinence, urinary urgency or other Musculoskeletal Musculoskeletal: Denies arthralgias, back pain, joint pain, joint stiffness, joint swelling, myalgias, neck pain or other Neurologic Neurologic: Denies abnormal gait, abnormal speech, confusion, disequilibrium, dizziness, focal weakness, headache(s), numbness, paresthesias, seizure-like activity, seizures, syncope, tingling, tremor(s) or other Psychiatric Psychiatric: Denies anxiety, depression, homicidal ideation, suicidal ideation or other Endocrine Endocrinology: Denies change in body appearance, cold intolerance, excessive sweating, heat intolerance, polydipsia, polyuria or other Hematologic/Lymphatic Hematologic/Lymphatic: Denies anemia, easy bleeding, easy bruising, lymphadenopathy or other Allergic/Immunologic Allergic/Immunologic: Denies rhinitis, hives, eczemia, asthma or other Vital Signs Vital Signs Vital Signs: 01/08/24 10:17 01/08/24 10:22 01/08/24 11:34 Temperature 97.6 F L Temperature Source Temporal Pulse Rate 65 86 Respiratory Rate 20 H 16 Respiratory Effort Normal Respiratory Depth Normal Respiratory Pattern Normal Blood Pressure 152/73 H 144/71 H Blood Pressure Mean 99 95 Pulse Ox 96 96 Oxygen Delivery Method Room Air Room Air Room Air Weight Weight: 54 kg Body Mass Index (BMI) 20.4 Physical Exam Const alert, oriented x3, no apparent distress, average body habitus and well nourished; Negative for healthy appearing Constitutional Narrative: Upper middle-aged, white male, sitting up in bed, appears older than stated age,thin, currently appears comfortable, nontoxic General Appearance: cooperative HEENT normocephalic, head/scalp atraumatic and moist oral mucous membranes HEENT Narrative: Dentures in place, Mallampati 2, no thrush Resp normal respiratory effort, no retractions, no use of accessory muscles and clearto auscultation bilaterally Resp Narrative: Diffusely diminished but clear Auscultation: Negative for rales, rhonchi or wheezes Cardio regular rate, regular rhythm, S1 normal heart sound, S2 normal heart sound, no murmurs, no rub, no gallops and no clicks GI normal to inspection, nondistended, normoactive bowel sounds, soft to palpation and non-tender Extremity no clubbing, cyanosis or edema Neuro oriented x3, moves all extremities and no focal motor deficits Speech: speech normal Psych affect normal Psych Narrative: Very pleasant, interacts appropriately Assessment & Plan Assessment/Plan (1) Thoracostomy tube in place: (2) Mass of left lung: (3) Iatrogenic pneumothorax: (4) Nicotine dependence, cigarettes, uncomplicated: PLAN: Plan Iatrogenic pneumothorax -Patient was undergoing biopsy for pulmonary nodule and unfortunately developed postprocedure pneumothorax -Chest tube placement in the ED -Good reexpansion on follow-up chest x-ray -Supplemental oxygen as needed however patient is currently on room air and stable at 93% -General surgery to assist with chest tube management -Chest tube to suction Abnormal lung mass -Biopsy performed -Outpatient follow-up with pulmonary medicine after discharge Abnormal EKG -Patient without any active symptoms -It appears that he has had a previous anterior and inferior W[place] -We will cycle cardiac enzymes -Obtain previous medical records in the form of echo and EKG from [facility] if available -Start aspirin 81 mg daily -Check lipids -Will make cardiology referral at discharge Hypertension -Continue home antihypertensives BPH with obstruction -Continue home Flomax Left eye infection with clogged tear duct -Surgery upcoming -Continue ophthalmic erythromycin Tobacco abuse -Recommend cessation -Nicotine patch -Patient smoking 1 and half packs of day DVT prophylaxis -Lovenox subcu daily CODE STATUS -Full code Charges/Coding Visit Charges Inpatient E&M: 06945 Init Hosp L2 01/08/24 1223 <Electronically signed by Emma Wilson DO> Cosigner Signature (if applicable): CC: Dr. Emma Wilson DO; JESUS MASTER DATA ANALYST-C [place]~ Signed [facility] Work Phone: 1(913) 165-503303-01-[address] [facility] Consult note Author Fiorella Barraza [facility] Note Date/Time April 10, 2025 3:15p m [facility] Medical Records Department [address] [place] [address] Counseling Note - Pharmacy 04/10/25 1444 MR#: [id number] Acct: [id number] Name: PATRICK ANDRES Jr. Rep #:[id number] : 1955 70 From: Fiorella Barraza PCP: JESUS CALALHAN Status:ADM I N Y Location: [place] [address] [place] Med Reconciliation Pharmacy Service has performed discharge medication reconciliation for this patient. The patient's discharge medication list was reviewed for discrepancies and discrepancies were resolved. Medications at Discharge Home Medications tamsulosin 0.4 mg capsule 0.4 mg PO DAILY 12/29/23 albuterol sulfate 90 mcg/actuation aerosol inhaler 1 puff inhalation Q4H PRN 12/09/24 hydroxyzine HCl 50 mg tablet 50 mg PO QHS 12/26/24 aspirin 81 mg tablet,delayed release (Adult Low Dose Aspirin) 81 mg PO DAILY 04/07/25 atorvastatin 40 mg tablet (Lipitor) 40 mg PO QHS 04/07/25 glycopyrrolate 9 mcg-formoterol 4.8 mcg HFA aerosol inhaler (Bevespi Aerosphere)2 puff inhalation Q12H 04/07/25 04/10/25 1444 <Electronically signed by Fiorella Barraza> Date _ Fiorella Barraza Cosigner Signature (if applicable): Date CC: ~ Signed [facility] Work Phone: Consult note Author Adelaida Hou [facility] Note Date/Time June 05, 2025 2:58 pm [facility] Medical Records Department [address] [place] [address] [place] [address] Anesthesia Postop Eval I 06/05/25 1457 MR#: [id number] Acct: [id number] Name: PATRICK ANDRES Jr. Rep #:[id number] : 1955 70 From: Adelaida Hou CRNA PCP: FRIEDA KEARNEY Status:REG SDC Y Race: C Location: [place] [address] Anesthesia: Postop Eval I Current Vital Signs Temperature: 97.8 F Pulse Rate: 77 Blood Pressure: 109/73 Respiratory Rate: 16 Pulse Ox: 97 Oxygen Delivery Method: Room Air Assessment Airway patent: Yes Spontaneous unlabored respirations: Yes Mental status: Awake and Calm nausea: No Vomiting: No Anesthesia Complication: No Fluid Hydration Crystalloid volume administer (ml): 500 Total IV fluid infused: 500 Progress Note Anesthesia document: Postop Eval 1 completed: Yes 06/05/25 1458 <Electronically signed by Adelaida ventura [employer]> Date _ Adelaida Hou [employer] Cosigner Signature: Date CC: ~ Signed [facility] Work Phone: Consult note Author Gavin [facility] Note Date/Time June 05, 2025 4:45 pm [facility] Medical Records Department [address] [place] [address] Anesthesia Postop Eval II 06/05/25 1625 MR#: [id number] Acct: [id number] Name: PATRICK ANDRES Jr. Rep #:[id number] : 1955 70 From: Gavin Hill MD PCP: FRIEDA KEARNEY Status:REG SDC Y Race: C Location: [place] [address] Anesthesia Postop Eval I Sum Postop Eval Completion status Anesthesia document: Postop Eval 1 completed: Yes Anesthesia Postop Eval I Summary Anesthesia Postop Eval I Summary: Anesthesia Postop Eval I: Assessment Summary Airway patent Yes 06/05/25 14:58 [email or web address] Spontaneous unlabored Yes 06/05/25 14:58 [employer]JDEF respirations Mental status Awake,Calm 06/05/25 14:58 [employer] nausea No 06/05/25 14:58 [employer] Vomiting No 06/05/25 14:58 [employer] Anesthesia Postop Eval I: Fluid Summary Crystalloid volume administer 500 06/05/25 14:58 [employer]JDEF (ml) Colloids volume administered ( ml) Blood Product volume administered (ml) Total IV fluid infused 500 06/05/25 14:58 [employer]JDEF Anesthesia Postop Eval I: Summary Notes Anesthesia Complication No 06/05/25 14:58 [employer]JDEF Anesthesia Complication Comment: Post-operative progress note Anesthesia: Postop Eval II Evaluation Mental status: Awake Pain Level: 0 nausea: No Vomiting: No 06/05/25 1625 <Electronically signed by Gavin Hill MD > Date _ [facility] Signature: Date CC: ~ Signed [facility] Work Phone: Discharge summary Author Malcolm Hanson [facility] Note Date/Time April 10, 2025 2:24p [facility] Medical Records Department [address] [place] [address] Discharge Summary 04/10/25 1422 MR#: [id number] Acct: [id number] Name: PATRICK ANDRES Jr. Rep #:[id number] : 1955 70 From: Malcolm Hanson DO PCP: JESUS CALLAHAN Status:ADM I N Location: [facility] [place] [id number] Providers Date of Admission: 04/07/25 Primary Care Physician: FRIEDA KEARNEY Consultations 04/07/25 15:01 Consult: General Surgery Routine Consulting Provider: Ray Sanders Reason for Consult: pneumothorax EMERGENT Consult: No MD Notified: Yes Date Notified: 04/07/25 Time Notified: 15:02 Method of Notification: Text Reason For Visit: IATROGENIC PNEUMOTHORAX Diagnosis Discharge Diagnosis (1) Iatrogenic pneumothorax: Status: Acute Code(s): J95.811 - Postprocedural pneumothorax Plan: Iatrogenic from lung biopsy Surgery following. CT removed today. Follow up chest xray no recurrent PTX. Ok from surgery to DC. Plan Chronic conditions: * BPH: tamsulosin * COPD: not in exacerbation * PAD: right carotid stenosis. on ASA and statin. VTE prophylaxis: LMWH. Medications at Discharge Home Medications tamsulosin 0.4 mg capsule 0.4 mg PO DAILY 12/29/23 albuterol sulfate 90 mcg/actuation aerosol inhaler 1 puff inhalation Q4H PRN 12/09/24 hydroxyzine HCl 50 mg tablet 50 mg PO QHS 12/26/24 aspirin 81 mg tablet,delayed release (Adult Low Dose Aspirin) 81 mg PO DAILY 04/07/25 atorvastatin 40 mg tablet (Lipitor) 40 mg PO QHS 04/07/25 glycopyrrolate 9 mcg-formoterol 4.8 mcg HFA aerosol inhaler (Bevespi Aerosphere)2 puff inhalation Q12H 04/07/25 Weight / BMI Weight Weight: 53.07 kg Body Mass Index (BMI) 20.0 ABG / Lab / Microbiology Data 04/08/25 06:02 04/08/25 06:02 Radiography Diagnostic Testing: Radiology Impression Chest X-Ray 04/10/25 04:46 IMPRESSION: Decreased minimal left apical pneumothorax. Unchanged left apical thoracostomy pleural drainage catheter. Unchanged emphysema. Unchanged blunting of the costophrenic angles, probably adhesions. [facility] Chest X-Ray 04/10/25 12:35 IMPRESSION: 1. Is tissue and patchy airspace disease. Status post removal of left-sided chest tube. No pneumothorax. 2. Suggestion of COPD. Reading [facility] Instructions Discharge Diet: No restrictions DC O2, CPAP, BIPAP Needs Home O2 Discharge instructions: No Meaningful Use Info Meaningful Use Meaningful Use Diagnoses (Choose all that apply): None applicable Ischemic Stroke Statin Dosing Therapy Reference: STATIN DOSE THERAPY REFERENCE: * Patients > 75 years receive moderate or high dose statin therapy. * Patients 75 years or YOUNGER should receive HIGH intensity statin dose unless contraindicated. You will be required to document reason for non-treatment if statin daily dose does not meet guidelines. HIGH DOSE STATIN THERAPY DAILY Atorvastatin > than or = to 40 mg Rosuvastatin > than or = to 20 mg Amlodipine + Atorvastatin > than or = to 2.5/40 mg Ezetimibe + Simvastatin 10/80 mg Simvastatin 80mg Discharge Plan Admission Admit Date/Time: 04/07/25 13:24 Primary Reason for Your Visit: Left pneumothorax Attending Provider: Malcolm Hanson Primary Care Provider: JESUS CALLAHAN Consulting Providers: Ray Sanders; Michelle Do; Chuy Covarrubias Instructions Additional Instructions / Restrictions: Please follow-up with your PCP in 1 week for a follow-up chest x-ray Do not get bandage wet for 3 days May remove bandage on left chest in 3 days No follow-up with Dr. Sanders is needed Discharge Orders/Prescriptions Prescriptions: No Action tamsulosin 0.4 mg capsule 0.4 mg PO DAILY albuterol sulfate 90 mcg/actuation HFA aerosol inhaler 1 puff inhalation Q4H PRN hydroxyzine HCl 50 mg tablet 50 mg PO QHS atorvastatin [Lipitor] 40 mg tablet 40 mg PO QHS aspirin [Adult Low Dose Aspirin] 81 mg tablet,delayed release (DR/EC) 81 mg PO DAILY Bevespi Aerosphere 9-4.8 mcg HFA aerosol inhaler 2 puff inhalation Q12H Referrals / Follow Up: [facility] [Provider Group] - 04/14/25 9:45 am JESUS CALLAHAN NP-C [Primary Care Provider] - 04/17/25 Disposition Disposition (needs filled in before D/C Order can be placed): Home, Self Care Charges/Coding Visit Charges Inpatient E&M: 62822 Disch Hosp 04/10/25 6414 <Electronically signed by Malcolm Hanson DO> Cosigner Signature (if applicable): CC: Dr. Malcolm Hanson DO; JESUS CALLAHAN~ Signed [facility] Work Phone: Discharge summary Author Ray Sanders [facility] Note Date/Time June 05, 2025 3:02 pm [facility] Medical Records Department [address] [place] [address] Instructions for Home/Discharge Instructions 06/05/25 1457 MR#: [id number] Acct: [id number] Name: PATRICK ANDRES Jr. Rep #:[id number] : 1955 70 From: Ray Sanders MD PCP: FRIEDA KEARNEY Status:[place] [facility] Discharge Instructions Diet Discharge Diet: Light diet - advance as tolerated Activity Discharge Activity: Return to Normal Activity May shower in (days): 1 Ice area for (Minutes): 30 Dressing / Incision Call your doctor if your incision/area has: Continuous Slow Oozing, Sudden Increased Bleeding, Increased Pain/ Swelling, Increased Redness, Foul Smelling Discharge and Swelling at the incision site Call your doctor if you observe: Fever of 101 or Higher Remove Dressing in: 3 days Cleanse incision/area with: Soap & Water Follow Up Care Please Follow Up With: Ray Sanders MD When: as needed Test Results: Test results from this visit will be discussed in further detail at your follow- up appointment, if applicable. Discharge Plan Admission Primary Reason for Your Visit: Mediport insertion Attending Provider: Ray Sanders Primary Care Provider: JESUS CALLAHAN Print Language: Bulgarian Discharge Orders/Prescriptions Prescriptions: New oxycodone 5 mg tablet 5 mg PO Q8H PRN (Reason: pain) 3 Days Qty: 7 0RF Continued tamsulosin 0.4 mg capsule 0.4 mg PO QHS albuterol sulfate 90 mcg/actuation HFA aerosol inhaler 1 puff inhalation Q4H PRN hydroxyzine HCl 50 mg tablet 50 mg PO QHS polymyxin B sulf-trimethoprim 10,000 unit- 1 mg/mL drops 1 drp ophthalmic (eye) DAILY aspirin [Adult Low Dose Aspirin] 81 mg tablet,delayed release (DR/EC) 81 mg PO DAILY Bevespi Aerosphere 9-4.8 mcg HFA aerosol inhaler 2 puff inhalation Q12H Referrals / Follow Up: JESUS CALLAHAN NP-C [Primary Care Provider] - Disposition Disposition (needs filled in before D/C Order can be placed): Home, Self Care 06/05/25 2<Electronically signed by Ray Sanders MD>Ray Sanders MD CC: MASTER DATA ANALYST-C JESUS CALLAHAN ~ Signed [facility] Work Phone: Evaluation + Plan note Future Appointments Appointment Date:10/21/2021 10:40:00 AM Scheduled Provider:WENDY CHRISTINA APRN, CNP Location:[facility] Appointment Type:PC OV [facility] Evaluation + Plan note Future Appointments Appointment Date:09/06/2021 09:00:00 AM Scheduled Provider:WENDY CHRISTINA APRN - [place]GR[place] Location:[facility] Appointment Type: OV Follow Up [facility] Evaluation + Plan note Future Appointments Appointment Date:12/23/2023 07:00:00 AM Scheduled Provider:JESUS CALLAHAN Location:[facility] Appointment Type:PC OV Follow Up Future Scheduled Tests Radiology* CT Low Dose Lung Cancer Screening (LDCT) 11/25/23 [facility] Evaluation + Plan note Future Appointments Appointment Date:12/23/2023 07:00:00 AM Scheduled Provider:JESUS CALLAHAN Location:[facility] Appointment Type: OV Follow Up [facility] Evaluation + Plan note Future Appointments Appointment Date:06/22/2024 07:00:00 AM Scheduled Provider:JESUS CALLAHAN Location:[facility] Appointment Type: OV Follow Up [facility] Evaluation note* Diagnosis Onset Date Resolution Status Nicotine dependence, cigarettes, uncomplicated chronic Pulmonary nodules chronic Iatrogenic pneumothorax acut e Mass of left lung acute Thoracostomy tube in place a cute Nicotine dependence, cigarettes, uncomplicated [facility] Work Phone: Evaluation note* Diagnosis Onset Date Resolution Status Pulmonary nodules chronic Iatrogenic pneumothorax reso lved Thoracostomy tube in place r esolved Pulmonary nodules [facility] Work Phone: History and physical note Author Emma Wilson [facility] January 08, 2024 12:23pm Note Date/Time January 08, 2024 11:5 2am [facility] Medical Records Department [address] [place] [address] H&P Exam - Hospitalist 01/08/24 1151 MR#: [id number] Acct: [id number] Name: PATRICK ANDRES Jr. Rep #:[id number] : 1955 68 From: Emma Wilson DO PCP: JESUS CALLAHAN MASTER DATA ANALYST-C Status:REG E R Location: ED HPI - General General Date of Service: 01/08/24 Chief Complaint: Iatrogenic pneumothorax HPI Narrative PATRICK ANDRES, is a 68 M who presented to the emergency department at [facility] on 01/08/2024 for iatrogenic pneumothorax that he sustained post CT-guided biopsy for a left-sided lung mass. He evidently underwent a low-dose CT scan at [facility] on 12/16/2023 that demonstrated bilateral emphysematous changes along with an area of bronchiectasis and a spiculated left lower lobe pulmonary nodule that measured 1 point centimeter in size. PET scan was performed and did show abnormal uptake so a CT-guided biopsywas performed. The procedure was done today but unfortunately he sustained a postprocedure complication and a 25 to 30% pneumothorax on the left side. He was transferred to the emergency department where a thoracostomy tube was placedby the emergency department physician. He was not has not been hypoxic. Vital signs show temperature of 97.6, heart rate 65, blood pressure 152/73, respiratory to 20 and oxygen saturations have been 96% on room air. Labs had not yet been obtained. PENDING SALE TO [facility] Medical History Hypertension Home Medications erythromycin 5 mg/gram (0.5 %) eye ointment 1 applic ophthalmic (eye) 12/29/23 [History Last Taken Unknown] irbesartan 150 mg-hydrochlorothiazide 12.5 mg tablet 1 tab PO DAILY 12/29/23 [History Last Taken 01/05/24] tamsulosin 0.4 mg capsule 0.4 mg PO DAILY 12/29/23 [History Last Taken Unknown] Allergy/AdvReac Type Severity Reaction Status Date / Time No Known Allergies Allergy Verified 01/08/24 10:17 Family History (Updated 01/08/24 @ 12:[address] Emma Wilson DO) Other Hypertension Surgical History H/O vasectomy Social History (Updated 01/08/24 @ 12:[address] Emma Wilson DO) household members: family housing: house current occupational status: retired Smoking Status: Current every day smoker tobacco type: cigarettes Smoking packsper day: 1.5 Smoking cigarettes per day: 30.0 alcohol intake: current alcohol intake frequency: a few times a month substance use type: does not use ROS Constitutional Constitutional: Denies anorexia, change in weight, chills, fatigue, fever(s), malaise, night sweats, weakness or other Eyes Eyes: Reports erythema and eye pain; Denies blurry vision, change in eye color, change in vision, discharge from eye(s), double vision, loss of vision or other ENT HEENT: Denies abnormal hearing, dysphagia, ear pain, epistaxis, headache(s), hearing loss, nasal congestion, nasal discharge, post nasal drip, sinus pressure, sore throat or other Cardiovascular Cardiovascular: Denies chest pain, claudication, dyspnea on exertion, edema, lightheadedness, orthopnea, palpitations, paroxysmal nocturnal dyspnea, rapid heart rate, syncope or other Respiratory/Chest Respiratory/Chest: Reports cough; Denies dyspnea, excessive phlegm production, hemoptysis, productive cough, shortness of breath at rest, shortness of breath with exertion, wheezing or other Gastrointestinal Gastrointestinal: Denies abdominal pain, coffee ground emesis, constipation, diarrhea, dyspepsia, hematemesis, hematochezia, loose stools, melena, nausea, vomiting or other Genitourinary Genitourinary: Reports difficulty urinating, nocturia and urinary hesitancy; Denies burning urination, dysuria, hematuria, urinary frequency, urinary incontinence, urinary urgency or other Musculoskeletal Musculoskeletal: Denies arthralgias, back pain, joint pain, joint stiffness, joint swelling, myalgias, neck pain or other Neurologic Neurologic: Denies abnormal gait, abnormal speech, confusion, disequilibrium, dizziness, focal weakness, headache(s), numbness, paresthesias, seizure-like activity, seizures, syncope, tingling, tremor(s) or other Psychiatric Psychiatric: Denies anxiety, depression, homicidal ideation, suicidal ideation or other Endocrine Endocrinology: Denies change in body appearance, cold intolerance, excessive sweating, heat intolerance, polydipsia, polyuria or other Hematologic/Lymphatic Hematologic/Lymphatic: Denies anemia, easy bleeding, easy bruising, lymphadenopathy or other Allergic/Immunologic Allergic/Immunologic: Denies rhinitis, hives, eczemia, asthma or other Vital Signs Vital Signs Vital Signs: 01/08/24 10:17 01/08/24 10:22 01/08/24 11:34 Temperature 97.6 F L Temperature Source Temporal Pulse Rate 65 86 Respiratory Rate 20 H 16 Respiratory Effort Normal Respiratory Depth Normal Respiratory Pattern Normal Blood Pressure 152/73 H 144/71 H Blood Pressure Mean 99 95 Pulse Ox 96 96 Oxygen Delivery Method Room Air Room Air Room Air Weight Weight: 54 kg Body Mass Index (BMI) 20.4 Physical Exam Const alert, oriented x3, no apparent distress, average body habitus and well nourished; Negative for healthy appearing Constitutional Narrative: Upper middle-aged, white male, sitting up in bed, appears older than stated age,thin, currently appears comfortable, nontoxic General Appearance: cooperative HEENT normocephalic, head/scalp atraumatic and moist oral mucous membranes HEENT Narrative: Dentures in place, Mallampati 2, no thrush Resp normal respiratory effort, no retractions, no use of accessory muscles and clearto auscultation bilaterally Resp Narrative: Diffusely diminished but clear Auscultation: Negative for rales, rhonchi or wheezes Cardio regular rate, regular rhythm, S1 normal heart sound, S2 normal heart sound, no murmurs, no rub, no gallops and no clicks GI normal to inspection, nondistended, normoactive bowel sounds, soft to palpation and non-tender Extremity no clubbing, cyanosis or edema Neuro oriented x3, moves all extremities and no focal motor deficits Speech: speech normal Psych affect normal Psych Narrative: Very pleasant, interacts appropriately Assessment & Plan Assessment/Plan (1) Thoracostomy tube in place: (2) Mass of left lung: (3) Iatrogenic pneumothorax: (4) Nicotine dependence, cigarettes, uncomplicated: PLAN: Plan Iatrogenic pneumothorax -Patient was undergoing biopsy for pulmonary nodule and unfortunately developed postprocedure pneumothorax -Chest tube placement in the ED -Good reexpansion on follow-up chest x-ray -Supplemental oxygen as needed however patient is currently on room air and stable at 93% -General surgery to assist with chest tube management -Chest tube to suction Abnormal lung mass -Biopsy performed -Outpatient follow-up with pulmonary medicine after discharge Abnormal EKG -Patient without any active symptoms -It appears that he has had a previous anterior and inferior W[place] -We will cycle cardiac enzymes -Obtain previous medical records in the form of echo and EKG from [facility] if available -Start aspirin 81 mg daily -Check lipids -Will make cardiology referral at discharge Hypertension -Continue home antihypertensives BPH with obstruction -Continue home Flomax Left eye infection with clogged tear duct -Surgery upcoming -Continue ophthalmic erythromycin Tobacco abuse -Recommend cessation -Nicotine patch -Patient smoking 1 and half packs of day DVT prophylaxis -Lovenox subcu daily CODE STATUS -Full code Charges/Coding Visit Charges Inpatient E&M: 89651 Init Hosp L2 01/08/24 1223 <Electronically signed by Emma Wilson DO> Cosigner Signature (if applicable): CC: Dr. Emma Wilson DO; JESUS MASTER DATA ANALYST-C [place]~ Signed [facility] Work Phone: Hospital course Narrative No data available for this section [facility] Hospital Discharge instructions No data available for this section [facility] Hospital Discharge instructionsAmbulatory Orders* Fast Pass: Oncology Referral [facility] Location: None [facility] Work Phone: Hospital Discharge instructionsAmbulatory Orders* General Surgery Location: None [facility] Work Phone: Hospital Discharge instructionsAmbulatory Orders* Prior Authorization Referral - ONC/HEM Location: None [facility] Work Phone: Progress note No data available for this section [facility] Reason for referral (narrative)No reason for referral [facility] Work Phone: Chief Complaint and Reason for Visit Chief Complaint Lung Nodules NICOTINE DEPENDENCE ABNORMAL LUNG FIELD NICOTINE DEPENDENCE R PNEUMOTHORAX sob Reason for Visit Nicotine dependence, cigarettes, uncomplicated Pulmonary nodules Iatrogenic pneumothorax Mass of left lung Thoracostomy tube in place Nicotine dependence, cigarettes, uncomplicated Chief Complaint Lung Nodules NICOTINE DEPENDENCE ABNORMAL LUNG FIELD NICOTINE DEPENDENCE R PNEUMOTHORAX sob R PNEUMOTHORAX R PNEUMOTHORAX R PNEUMOTHORAX Reason for Visit Nicotine dependence, cigarettes, uncomplicated Pulmonary nodules Iatrogenic pneumothorax Mass of left lung Thoracostomy tube in place Nicotine dependence, cigarettes, uncomplicated Chief Complaint Lung Nodules NICOTINE DEPENDENCE ABNORMAL LUNG FIELD NICOTINE DEPENDENCE R PNEUMOTHORAX sob R PNEUMOTHORAX R PNEUMOTHORAX R PNEUMOTHORAX NICOTINE DEPENDENCE NICOTINE DEPENDENCE Reason for Visit Pulmonary nodules Iatrogenic pneumothorax Thoracostomy tube in place Pulmonary nodules Chief Complaint Admit Date SEVERE ACUTE HYPONATREMIA AT 122 PRESENT ON November 07, 2024 12:43am SEVERE ACUTE HYPONATREMIA AT 122 PRESENT ON November 07, 2024 7:45am SEVERE ACUTE HYPONATREMIA AT 122 PRESENT ON November 08, 2024 12:23pm Post Hospital FU November 11, 2024 12 :47pm SEVERE R ICA STENOSIS December 01, 2024 7:45am SCREEN FOR CV DISORDERS December 08 7:54am DISCUSS CTA RESULTS/POSSIBLE INTERVENTIO N December 26, 2024 12:57pm Pulmonary Clearance January 31, 2025 8:4 9am Chronic obstructive pulmonary disease, u ns February 27, 2025 9:09am Reason for Visit Admit Date Adverse drug reaction November 07 12:43am Hypokalemia November 07, 2024 12:43am Hyponatremia November 07, 2024 12:43am Mass of left lung November 07, 2024 12:43am Syncope and collapse November 07, 2024 12:43am Chronic alcohol abuse November 07 12:43am Pulmonary nodules November 07, 2024 12:43am Tobacco use disorder November 07, 2024 12:43am Orthostatic hypotension November 07, 2 024 12:43am 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 November 11, 2024 12:47pm 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 December 26, 2024 12:57pm Mediastinal lymphadenopathy January 31, 2025 8:49am COPD (chronic obstructive pulmonary dise ase) January 31, 2025 8:49am Tobacco use disorder January 31, 2025 8: 49am Chief Complaint Admit Date SCREEN FOR CV DISORDERS December 08 7:54am DISCUSS CTA RESULTS/POSSIBLE INTERVENTIO N December 26, 2024 12:57pm Pulmonary Clearance January 31, 2025 8:4 9am Chronic obstructive pulmonary disease, u ns February 27, 2025 9:09am Localized enlarged lymph nodes February 12:04pm Localized enlarged lymph nodes February 12:16pm 6 wk FU March 14, 2025 8:33am Other nonspecific abnormal finding of pio ng field April 07, 2025 8:36am PNEUMOTHORAX S/P LUNG BIOPSY April 07, 2 025 10:45am Reason for Visit Admit Date 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 December 26, 2024 12:57pm Mediastinal lymphadenopathy January 31, 2025 8:49am COPD (chronic obstructive pulmonary dise ase) January 31, 2025 8:49am Tobacco use disorder January 31, 2025 8: 49am Mediastinal lymphadenopathy March 14 8:33am COPD (chronic obstructive pulmonary dise ase) March 14, 2025 8:33am 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 March 14, 2025 8:33am Tobacco use disorder March 14, 2025 8:33a m Chief Complaint Admit Date DISCUSS CTA RESULTS/POSSIBLE INTERVENTIO N December 26, 2024 12:57pm Pulmonary Clearance January 31, 2025 8:4 9am Chronic obstructive pulmonary disease, u ns February 27, 2025 9:09am Localized enlarged lymph nodes February 12:04pm Localized enlarged lymph nodes February 12:16pm 6 wk FU March 14, 2025 8:33am Other nonspecific abnormal finding of pio ng field April 07, 2025 8:36am IATROGENIC PNEUMOTHORAX April 07, 2025 1 :24pm IATROGENIC PNEUMOTHORAX April 07, 2025 4 :43pm IATROGENIC PNEUMOTHORAX April 08, 2025 5 :52am IATROGENIC PNEUMOTHORAX April 08, 2025 7 :51am IATROGENIC PNEUMOTHORAX April 09, 2025 2 :21pm IATROGENIC PNEUMOTHORAX April 09, 2025 4 :10pm IATROGENIC PNEUMOTHORAX April 10, 2025 8 :11am IATROGENIC PNEUMOTHORAX April 10, 2025 1 0:06am Reason for Visit Admit Date 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 December 26, 2024 12:57pm Mediastinal lymphadenopathy January 31, 2025 8:49am COPD (chronic obstructive pulmonary dise ase) January 31, 2025 8:49am Tobacco use disorder January 31, 2025 8: 49am Mediastinal lymphadenopathy March 14 8:33am COPD (chronic obstructive pulmonary dise ase) March 14, 2025 8:33am 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 March 14, 2025 8:33am Tobacco use disorder March 14, 2025 8:33a m Hypoxemia April 07, 2025 1:24p m Iatrogenic pneumothorax April 07, 2025 1 :24pm COPD (chronic obstructive pulmonary dise ase) April 07, 2025 1:24pm Chief Complaint Admit Date DISCUSS CTA RESULTS/POSSIBLE INTERVENTIO N December 26, 2024 12:57pm Pulmonary Clearance January 31, 2025 8:4 9am Chronic obstructive pulmonary disease, u ns February 27, 2025 9:09am Localized enlarged lymph nodes February 12:04pm Localized enlarged lymph nodes February 12:16pm 6 wk FU March 14, 2025 8:33am Other nonspecific abnormal finding of pio ng field April 07, 2025 8:36am IATROGENIC PNEUMOTHORAX April 07, 2025 1 :24pm IATROGENIC PNEUMOTHORAX April 07, 2025 4 :43pm IATROGENIC PNEUMOTHORAX April 08, 2025 5 :52am IATROGENIC PNEUMOTHORAX April 08, 2025 7 :51am IATROGENIC PNEUMOTHORAX April 09, 2025 2 :21pm IATROGENIC PNEUMOTHORAX April 09, 2025 4 :10pm IATROGENIC PNEUMOTHORAX April 10, 2025 8 :11am IATROGENIC PNEUMOTHORAX April 10, 2025 1 0:06am Test Result April 19, 2025 7:40 am Reason for Visit Admit Date 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 December 26, 2024 12:57pm COPD (chronic obstructive pulmonary dise ase) January 31, 2025 8:49am Mediastinal lymphadenopathy January 31, 2025 8:49am Tobacco use disorder January 31, 2025 8: 49am COPD (chronic obstructive pulmonary dise ase) March 14, 2025 8:33am Mediastinal lymphadenopathy March 14 8:33am 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 March 14, 2025 8:33am Tobacco use disorder March 14, 2025 8:33a m COPD (chronic obstructive pulmonary dise ase) April 07, 2025 1:24pm Hypoxemia April 07, 2025 1:24p m Iatrogenic pneumothorax April 07, 2025 1 :24pm 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 April 19, 2025 7:40am COPD (chronic obstructive pulmonary dise ase) April 19, 2025 7:40am 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 April 19, 2025 7:40am Tobacco use disorder April 19, 2025 7:4 0am Chief Complaint Admit Date Pulmonary Clearance January 31, 2025 8:4 9am Chronic obstructive pulmonary disease, u ns February 27, 2025 9:09am Localized enlarged lymph nodes February h2024 12:04pm Localized enlarged lymph nodes February h2024 12:16pm 6 wk FU March 14, 2025 8:33am Other nonspecific abnormal finding of pio ng field April 07, 2025 8:36am IATROGENIC PNEUMOTHORAX April 07, 2025 1 :24pm IATROGENIC PNEUMOTHORAX April 07, 2025 4 :43pm IATROGENIC PNEUMOTHORAX April 08, 2025 5 :52am IATROGENIC PNEUMOTHORAX April 08, 2025 7 :51am IATROGENIC PNEUMOTHORAX April 09, 2025 2 :21pm IATROGENIC PNEUMOTHORAX April 09, 2025 4 :10pm IATROGENIC PNEUMOTHORAX April 10, 2025 8 :11am IATROGENIC PNEUMOTHORAX April 10, 2025 1 0:06am Test Result April 19, 2025 7:40 am LUNG April 25, 2025 8:11 am Reason for Visit Admit Date COPD (chronic obstructive pulmonary dise ase) January 31, 2025 8:49am Mediastinal lymphadenopathy January 31, 2025 8:49am Tobacco use disorder January 31, 2025 8: 49am COPD (chronic obstructive pulmonary dise ase) March 14, 2025 8:33am Mediastinal lymphadenopathy March 14 8:33am 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 March 14, 2025 8:33am Tobacco use disorder March 14, 2025 8:33a m COPD (chronic obstructive pulmonary dise ase) April 07, 2025 1:24pm Hypoxemia April 07, 2025 1:24p m Iatrogenic pneumothorax April 07, 2025 1 :24pm 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 April 19, 2025 7:40am COPD (chronic obstructive pulmonary dise ase) April 19, 2025 7:40am 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 April 19, 2025 7:40am Tobacco use disorder April 19, 2025 7:4 0am Chief Complaint Admit Date Pulmonary Clearance January 31, 2025 8:4 9am Chronic obstructive pulmonary disease, u ns February 27, 2025 9:09am Localized enlarged lymph nodes February 12:04pm Localized enlarged lymph nodes February 12:16pm 6 wk FU March 14, 2025 8:33am Other nonspecific abnormal finding of pio ng field April 07, 2025 8:36am IATROGENIC PNEUMOTHORAX April 07, 2025 1 :24pm IATROGENIC PNEUMOTHORAX April 07, 2025 4 :43pm IATROGENIC PNEUMOTHORAX April 08, 2025 5 :52am IATROGENIC PNEUMOTHORAX April 08, 2025 7 :51am IATROGENIC PNEUMOTHORAX April 09, 2025 2 :21pm IATROGENIC PNEUMOTHORAX April 09, 2025 4 :10pm IATROGENIC PNEUMOTHORAX April 10, 2025 8 :11am IATROGENIC PNEUMOTHORAX April 10, 2025 1 0:06am Test Result April 19, 2025 7:40 am LUNG April 25, 2025 8:11 am NEW PT - LUNG CANCER - REVIEW PET April 102024 9:12am Reason for Visit Admit Date COPD (chronic obstructive pulmonary dise ase) January 31, 2025 8:49am Mediastinal lymphadenopathy January 31, 2025 8:49am Tobacco use disorder January 31, 2025 8: 49am COPD (chronic obstructive pulmonary dise ase) March 14, 2025 8:33am Mediastinal lymphadenopathy March 14 8:33am 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 March 14, 2025 8:33am Tobacco use disorder March 14, 2025 8:33a m COPD (chronic obstructive pulmonary dise ase) April 07, 2025 1:24pm Hypoxemia April 07, 2025 1:24p m Iatrogenic pneumothorax April 07, 2025 1 :24pm 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 April 19, 2025 7:40am COPD (chronic obstructive pulmonary dise ase) April 19, 2025 7:40am 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 April 19, 2025 7:40am Tobacco use disorder April 19, 2025 7:4 0am 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 May 01, 2025 9:12am Chief Complaint Admit Date Pulmonary Clearance January 31, 2025 8:4 9am Chronic obstructive pulmonary disease, u ns February 27, 2025 9:09am Localized enlarged lymph nodes February 12:04pm Localized enlarged lymph nodes February 12:16pm 6 wk FU March 14, 2025 8:33am Other nonspecific abnormal finding of pio ng field April 07, 2025 8:36am IATROGENIC PNEUMOTHORAX April 07, 2025 1 :24pm IATROGENIC PNEUMOTHORAX April 07, 2025 4 :43pm IATROGENIC PNEUMOTHORAX April 08, 2025 5 :52am IATROGENIC PNEUMOTHORAX April 08, 2025 7 :51am IATROGENIC PNEUMOTHORAX April 09, 2025 2 :21pm IATROGENIC PNEUMOTHORAX April 09, 2025 4 :10pm IATROGENIC PNEUMOTHORAX April 10, 2025 8 :11am IATROGENIC PNEUMOTHORAX April 10, 2025 1 0:06am Test Result April 19, 2025 7:40 am LUNG April 25, 2025 8:11 am NEW PT - LUNG CANCER - REVIEW PET April 102024 9:12am MED ONC May 01, 2025 10:3 1am [facility] PRIOR REVIEW PATH May 29 10:21am Reason for Visit Admit Date COPD (chronic obstructive pulmonary dise ase) January 31, 2025 8:49am Mediastinal lymphadenopathy January 31, 2025 8:49am Tobacco use disorder January 31, 2025 8: 49am COPD (chronic obstructive pulmonary dise ase) March 14, 2025 8:33am Mediastinal lymphadenopathy March 14 8:33am 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 March 14, 2025 8:33am Tobacco use disorder March 14, 2025 8:33a m COPD (chronic obstructive pulmonary dise ase) April 07, 2025 1:24pm Hypoxemia April 07, 2025 1:24p m Iatrogenic pneumothorax April 07, 2025 1 :24pm 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 April 19, 2025 7:40am COPD (chronic obstructive pulmonary dise ase) April 19, 2025 7:40am 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 April 19, 2025 7:40am Tobacco use disorder April 19, 2025 7:4 0am 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 May 01, 2025 9:12am 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 May 29, 2025 10:21am Chief Complaint Admit Date Pulmonary Clearance January 31, 2025 8:4 9am Chronic obstructive pulmonary disease, u ns February 27, 2025 9:09am Localized enlarged lymph nodes February 12:04pm Localized enlarged lymph nodes February 12:16pm 6 wk FU March 14, 2025 8:33am Other nonspecific abnormal finding of pio ng field April 07, 2025 8:36am IATROGENIC PNEUMOTHORAX April 07, 2025 1 :24pm IATROGENIC PNEUMOTHORAX April 07, 2025 4 :43pm IATROGENIC PNEUMOTHORAX April 08, 2025 5 :52am IATROGENIC PNEUMOTHORAX April 08, 2025 7 :51am IATROGENIC PNEUMOTHORAX April 09, 2025 2 :21pm IATROGENIC PNEUMOTHORAX April 09, 2025 4 :10pm IATROGENIC PNEUMOTHORAX April 10, 2025 8 :11am IATROGENIC PNEUMOTHORAX April 10, 2025 1 0:06am Test Result April 19, 2025 7:40 am LUNG April 25, 2025 8:11 am NEW PT - LUNG CANCER - REVIEW PET April 102024 9:12am MED ONC May 01, 2025 10:3 1am [facility] PRIOR REVIEW PATH May 29, 025 10:21am PORT PLACEMENT May 31, 2025 12:4 0pm Reason for Visit Admit Date COPD (chronic obstructive pulmonary dise ase) January 31, 2025 8:49am Mediastinal lymphadenopathy January 31, 2025 8:49am Tobacco use disorder January 31, 2025 8: 49am COPD (chronic obstructive pulmonary dise ase) March 14, 2025 8:33am Mediastinal lymphadenopathy March 14 8:33am 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 March 14, 2025 8:33am Tobacco use disorder March 14, 2025 8:33a m COPD (chronic obstructive pulmonary dise ase) April 07, 2025 1:24pm Hypoxemia April 07, 2025 1:24p m Iatrogenic pneumothorax April 07, 2025 1 :24pm 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 April 19, 2025 7:40am COPD (chronic obstructive pulmonary dise ase) April 19, 2025 7:40am 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 April 19, 2025 7:40am Tobacco use disorder April 19, 2025 7:4 0am 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 May 01, 2025 9:12am 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 May 29, 2025 10:21am 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 May 31, 2025 12:40pm Chief Complaint Admit Date Chronic obstructive pulmonary disease, u ns February 27, 2025 9:09am Localized enlarged lymph nodes March 02t h2024 12:04pm Localized enlarged lymph nodes March 03t h2024 12:16pm 6 wk FU March 14, 2025 8:33am Other nonspecific abnormal finding of pio ng field April 07, 2025 8:36am IATROGENIC PNEUMOTHORAX April 07, 2025 1 :24pm IATROGENIC PNEUMOTHORAX April 07, 2025 4 :43pm IATROGENIC PNEUMOTHORAX April 08, 2025 5 :52am IATROGENIC PNEUMOTHORAX April 08, 2025 7 :51am IATROGENIC PNEUMOTHORAX April 09, 2025 2 :21pm IATROGENIC PNEUMOTHORAX April 09, 2025 4 :10pm IATROGENIC PNEUMOTHORAX April 10, 2025 8 :11am IATROGENIC PNEUMOTHORAX April 10, 2025 1 0:06am Test Result April 19, 2025 7:40 am LUNG April 25, 2025 8:11 am NEW PT - LUNG CANCER - REVIEW PET April 102024 9:12am MED ONC May 01, 2025 10:3 1am [facility] PRIOR REVIEW PATH May 29, 025 10:21am PORT PLACEMENT May 31, 2025 12:4 0pm Insertion, Vascular Port June 05, 2025 12:04pm Insertion, Vascular Port June 05, 2025 1:38pm Reason for Visit Admit Date COPD (chronic obstructive pulmonary dise ase) March 14, 2025 8:33am Mediastinal lymphadenopathy March 14 8:33am 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 March 14, 2025 8:33am Tobacco use disorder March 14, 2025 8:33a m COPD (chronic obstructive pulmonary dise ase) April 07, 2025 1:24pm Hypoxemia April 07, 2025 1:24p m Iatrogenic pneumothorax April 07, 2025 1 :24pm 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 April 19, 2025 7:40am COPD (chronic obstructive pulmonary dise ase) April 19, 2025 7:40am 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 April 19, 2025 7:40am Tobacco use disorder April 19, 2025 7:4 0am 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 May 01, 2025 9:12am 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 May 29, 2025 10:21am 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 May 31, 2025 12:40pm 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 June 05, 2025 12:04pm Chief Complaint Admit Date Chronic obstructive pulmonary disease, u ns February 27, 2025 9:09am Localized enlarged lymph nodes February 12:04pm Localized enlarged lymph nodes February 12:16pm 6 wk FU March 14, 2025 8:33am Other nonspecific abnormal finding of pio ng field April 07, 2025 8:36am IATROGENIC PNEUMOTHORAX April 07, 2025 1 :24pm IATROGENIC PNEUMOTHORAX April 07, 2025 4 :43pm IATROGENIC PNEUMOTHORAX April 08, 2025 5 :52am IATROGENIC PNEUMOTHORAX April 08, 2025 7 :51am IATROGENIC PNEUMOTHORAX April 09, 2025 2 :21pm IATROGENIC PNEUMOTHORAX April 09, 2025 4 :10pm IATROGENIC PNEUMOTHORAX April 10, 2025 8 :11am IATROGENIC PNEUMOTHORAX April 10, 2025 1 0:06am Test Result April 19, 2025 7:40 am LUNG April 25, 2025 8:11 am NEW PT - LUNG CANCER - REVIEW PET April 102024 9:12am [facility] PRIOR REVIEW PATH May 29, 2 025 10:21am PORT PLACEMENT May 31, 2025 12:4 0pm Insertion, Vascular Port June 05, 2025 12:04pm Insertion, Vascular Port June 05, 2025 1:38pm CHEMO ED June 12, 2025 9:2 6am Reason for Visit Admit Date COPD (chronic obstructive pulmonary dise ase) March 14, 2025 8:33am Mediastinal lymphadenopathy March 14 8:33am 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 March 14, 2025 8:33am Tobacco use disorder March 14, 2025 8:33a m COPD (chronic obstructive pulmonary dise ase) April 07, 2025 1:24pm Hypoxemia April 07, 2025 1:24p m Iatrogenic pneumothorax April 07, 2025 1 :24pm 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 April 19, 2025 7:40am COPD (chronic obstructive pulmonary dise ase) April 19, 2025 7:40am 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 April 19, 2025 7:40am Tobacco use disorder April 19, 2025 7:4 0am 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 May 01, 2025 9:12am 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 May 29, 2025 10:21am 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 May 31, 2025 12:40pm 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 June 05, 2025 12:04pm 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 June 12, 2025 9:26am Chief Complaint Admit Date Chronic obstructive pulmonary disease, u ns February 27, 2025 9:09am Localized enlarged lymph nodes February 12:04pm Localized enlarged lymph nodes February 12:16pm 6 wk FU March 14, 2025 8:33am Other nonspecific abnormal finding of pio ng field April 07, 2025 8:36am IATROGENIC PNEUMOTHORAX April 07, 2025 1 :24pm IATROGENIC PNEUMOTHORAX April 07, 2025 4 :43pm IATROGENIC PNEUMOTHORAX April 08, 2025 5 :52am IATROGENIC PNEUMOTHORAX April 08, 2025 7 :51am IATROGENIC PNEUMOTHORAX April 09, 2025 2 :21pm IATROGENIC PNEUMOTHORAX April 09, 2025 4 :10pm IATROGENIC PNEUMOTHORAX April 10, 2025 8 :11am IATROGENIC PNEUMOTHORAX April 10, 2025 1 0:06am Test Result April 19, 2025 7:40 am LUNG April 25, 2025 8:11 am NEW PT - LUNG CANCER - REVIEW PET April 102024 9:12am [facility] PRIOR REVIEW PATH May 29, 2 025 10:21am PORT PLACEMENT May 31, 2025 12:4 0pm Insertion, Vascular Port June 05, 2025 12:04pm Insertion, Vascular Port June 05, 2025 1:38pm CHEMO ED June 12, 2025 9:2 6am [facility] NEW START June 14, 2025 7:3 5am MED ONC June 14, 2025 7:4 5am Reason for Visit Admit Date COPD (chronic obstructive pulmonary dise ase) March 14, 2025 8:33am Mediastinal lymphadenopathy March 14 8:33am 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 March 14, 2025 8:33am Tobacco use disorder March 14, 2025 8:33a m COPD (chronic obstructive pulmonary dise ase) April 07, 2025 1:24pm Hypoxemia April 07, 2025 1:24p m Iatrogenic pneumothorax April 07, 2025 1 :24pm 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 April 19, 2025 7:40am COPD (chronic obstructive pulmonary dise ase) April 19, 2025 7:40am 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 April 19, 2025 7:40am Tobacco use disorder April 19, 2025 7:4 0am 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 May 01, 2025 9:12am 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 May 29, 2025 10:21am 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 May 31, 2025 12:40pm 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 June 05, 2025 12:04pm 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 June 12, 2025 9:26am Encounter for education June 12, 2025 9:26am 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 June 14, 2025 7:35am Chemotherapy management, encounter for A ugust 2024 7:35am Immunotherapy encounter June 14, 2025 7:35am Chief Complaint Admit Date Localized enlarged lymph nodes February 12:04pm Localized enlarged lymph nodes February 12:16pm 6 wk FU March 14, 2025 8:33am Other nonspecific abnormal finding of pio ng field April 07, 2025 8:36am IATROGENIC PNEUMOTHORAX April 07, 2025 1 :24pm IATROGENIC PNEUMOTHORAX April 07, 2025 4 :43pm IATROGENIC PNEUMOTHORAX April 08, 2025 5 :52am IATROGENIC PNEUMOTHORAX April 08, 2025 7 :51am IATROGENIC PNEUMOTHORAX April 09, 2025 2 :21pm IATROGENIC PNEUMOTHORAX April 09, 2025 4 :10pm IATROGENIC PNEUMOTHORAX April 10, 2025 8 :11am IATROGENIC PNEUMOTHORAX April 10, 2025 1 0:06am Test Result April 19, 2025 7:40 am LUNG April 25, 2025 8:11 am NEW PT - LUNG CANCER - REVIEW PET April 102024 9:12am [facility] PRIOR REVIEW PATH May 29, 2 025 10:21am PORT PLACEMENT May 31, 2025 12:4 0pm Insertion, Vascular Port June 05, 2025 12:04pm Insertion, Vascular Port June 05, 2025 1:38pm CHEMO ED June 12, 2025 9:2 6am [facility] NEW START June 14, 2025 7:3 5am MED ONC June 29, 2025 8: 45am [facility] TOX CHECK June 29, 2025 8: 52am Reason for Visit Admit Date COPD (chronic obstructive pulmonary dise ase) March 14, 2025 8:33am Mediastinal lymphadenopathy March 14 8:33am 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 March 14, 2025 8:33am Tobacco use disorder March 14, 2025 8:33a m COPD (chronic obstructive pulmonary dise ase) April 07, 2025 1:24pm Hypoxemia April 07, 2025 1:24p m Iatrogenic pneumothorax April 07, 2025 1 :24pm 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 April 19, 2025 7:40am COPD (chronic obstructive pulmonary dise ase) April 19, 2025 7:40am 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 April 19, 2025 7:40am Tobacco use disorder April 19, 2025 7:4 0am 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 May 01, 2025 9:12am 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 May 29, 2025 10:21am 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 May 31, 2025 12:40pm 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 June 05, 2025 12:04pm 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 June 12, 2025 9:26am Encounter for education June 12, 2025 9:26am 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 June 14, 2025 7:35am Chemotherapy management, encounter for A ugust 2024 7:35am Immunotherapy encounter June 14, 2025 7:35am 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 June 29, 2025 8:52am Chief Complaint Admit Date 6 wk FU March 14, 2025 8:33am Other nonspecific abnormal finding of pio ng field April 07, 2025 8:36am IATROGENIC PNEUMOTHORAX April 07, 2025 1 :24pm IATROGENIC PNEUMOTHORAX April 07, 2025 4 :43pm IATROGENIC PNEUMOTHORAX April 08, 2025 5 :52am IATROGENIC PNEUMOTHORAX April 08, 2025 7 :51am IATROGENIC PNEUMOTHORAX April 09, 2025 2 :21pm IATROGENIC PNEUMOTHORAX April 09, 2025 4 :10pm IATROGENIC PNEUMOTHORAX April 10, 2025 8 :11am IATROGENIC PNEUMOTHORAX April 10, 2025 1 0:06am Test Result April 19, 2025 7:40 am LUNG April 25, 2025 8:11 am NEW PT - LUNG CANCER - REVIEW PET April 102024 9:12am [facility] PRIOR REVIEW PATH May 29, 2 025 10:21am PORT PLACEMENT May 31, 2025 12:4 0pm Insertion, Vascular Port June 05, 2025 12:04pm Insertion, Vascular Port June 05, 2025 1:38pm CHEMO ED June 12, 2025 9:2 6am [facility] NEW START June 14, 2025 7:3 5am [facility] TOX CHECK June 29, 2025 8: 52am MED ONC July 05, 2025 7: 45am [facility] [place] July 05, 2025 8: 17am Reason for Visit Admit Date COPD (chronic obstructive pulmonary dise ase) March 14, 2025 8:33am Mediastinal lymphadenopathy March 14 8:33am 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 March 14, 2025 8:33am Tobacco use disorder March 14, 2025 8:33a m COPD (chronic obstructive pulmonary dise ase) April 07, 2025 1:24pm Hypoxemia April 07, 2025 1:24p m Iatrogenic pneumothorax April 07, 2025 1 :24pm 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 April 19, 2025 7:40am COPD (chronic obstructive pulmonary dise ase) April 19, 2025 7:40am 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 April 19, 2025 7:40am Tobacco use disorder April 19, 2025 7:4 0am 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 May 01, 2025 9:12am 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 May 29, 2025 10:21am 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 May 31, 2025 12:40pm 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 June 05, 2025 12:04pm 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 June 12, 2025 9:26am Encounter for education June 12, 2025 9:26am 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 June 14, 2025 7:35am Chemotherapy management, encounter for A ugust 2024 7:35am Immunotherapy encounter June 14, 2025 7:35am 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 June 29, 2025 8:52am Constipation June 29, 2025 8: 52am Drug induced neutropenia June 29 8:52am 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 July 05, 2025 8:17am Constipation July 05, 2025 8: 17am Drug induced neutropenia July 05 8:17am Chief Complaint Admit Date Other nonspecific abnormal finding of pio ng field April 07, 2025 8:36am IATROGENIC PNEUMOTHORAX April 07, 2025 1 :24pm IATROGENIC PNEUMOTHORAX April 07, 2025 4 :43pm IATROGENIC PNEUMOTHORAX April 08, 2025 5 :52am IATROGENIC PNEUMOTHORAX April 08, 2025 7 :51am IATROGENIC PNEUMOTHORAX April 09, 2025 2 :21pm IATROGENIC PNEUMOTHORAX April 09, 2025 4 :10pm IATROGENIC PNEUMOTHORAX April 10, 2025 8 :11am IATROGENIC PNEUMOTHORAX April 10, 2025 1 0:06am Test Result April 19, 2025 7:40 am LUNG April 25, 2025 8:11 am NEW PT - LUNG CANCER - REVIEW PET April 102024 9:12am [facility] PRIOR REVIEW PATH May 29, 10:21am PORT PLACEMENT May 31, 2025 12:4 0pm Insertion, Vascular Port June 05, 2025 12:04pm Insertion, Vascular Port June 05, 2025 1:38pm CHEMO ED June 12, 2025 9:2 6am [facility] NEW START June 14, 2025 7:3 5am [facility] TOX CHECK June 29, 2025 8: 52am [facility] [place] July 05, 2025 8: 17am [facility] TOX CHECK July 19, 2025 8:50am MED ONC July 19, 2025 9:15am Reason for Visit Admit Date COPD (chronic obstructive pulmonary dise ase) April 07, 2025 1:24pm Hypoxemia April 07, 2025 1:24p m Iatrogenic pneumothorax April 07, 2025 1 :24pm 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 April 19, 2025 7:40am COPD (chronic obstructive pulmonary dise ase) April 19, 2025 7:40am 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 April 19, 2025 7:40am Tobacco use disorder April 19, 2025 7:4 0am 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 May 01, 2025 9:12am 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 May 29, 2025 10:21am 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 May 31, 2025 12:40pm 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 June 05, 2025 12:04pm 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 June 12, 2025 9:26am Encounter for education June 12, 2025 9:26am 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 June 14, 2025 7:35am Chemotherapy management, encounter for A ugust 2024 7:35am Immunotherapy encounter June 14, 2025 7:35am 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 June 29, 2025 8:52am Constipation June 29, 2025 8: 52am Drug induced neutropenia June 29 8:52am 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 July 05, 2025 8:17am Constipation July 05, 2025 8: 17am Drug induced neutropenia July 05 8:17am 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 July 19, 2025 8:50am Constipation July 19, 2025 8:50am Drug induced neutropenia July 19, 2025 8:50am Chief Complaint Admit Date Other nonspecific abnormal finding of pio ng field April 07, 2025 8:36am IATROGENIC PNEUMOTHORAX April 07, 2025 1 :24pm IATROGENIC PNEUMOTHORAX April 07, 2025 4 :43pm IATROGENIC PNEUMOTHORAX April 08, 2025 5 :52am IATROGENIC PNEUMOTHORAX April 08, 2025 7 :51am IATROGENIC PNEUMOTHORAX April 09, 2025 2 :21pm IATROGENIC PNEUMOTHORAX April 09, 2025 4 :10pm IATROGENIC PNEUMOTHORAX April 10, 2025 8 :11am IATROGENIC PNEUMOTHORAX April 10, 2025 1 0:06am Test Result April 19, 2025 7:40 am LUNG April 25, 2025 8:11 am NEW PT - LUNG CANCER - REVIEW PET April 102024 9:12am [facility] PRIOR REVIEW PATH May 29, 2 025 10:21am PORT PLACEMENT May 31, 2025 12:4 0pm Insertion, Vascular Port June 05, 2025 12:04pm Insertion, Vascular Port June 05, 2025 1:38pm CHEMO ED June 12, 2025 9:2 6am [facility] NEW START June 14, 2025 7:3 5am [facility] TOX CHECK June 29, 2025 8: 52am [facility] [place] July 05, 2025 8: 17am [facility] TOX CHECK July 19, 2025 8:50am MED ONC July 26, 2025 7:45am [facility] [place] July 26, 2025 7:49am Reason for Visit Admit Date COPD (chronic obstructive pulmonary dise ase) April 07, 2025 1:24pm Hypoxemia April 07, 2025 1:24p m Iatrogenic pneumothorax April 07, 2025 1 :24pm 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 April 19, 2025 7:40am COPD (chronic obstructive pulmonary dise ase) April 19, 2025 7:40am 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 April 19, 2025 7:40am Tobacco use disorder April 19, 2025 7:4 0am 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 May 01, 2025 9:12am 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 May 29, 2025 10:21am 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 May 31, 2025 12:40pm 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 June 05, 2025 12:04pm 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 June 12, 2025 9:26am Encounter for education June 12, 2025 9:26am 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 June 14, 2025 7:35am Chemotherapy management, encounter for A ugust 2024 7:35am Immunotherapy encounter June 14, 2025 7:35am 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 June 29, 2025 8:52am Constipation June 29, 2025 8: 52am Drug induced neutropenia June 29 8:52am 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 July 05, 2025 8:17am Constipation July 05, 2025 8: 17am Drug induced neutropenia July 05 8:17am 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 July 19, 2025 8:50am Constipation July 19, 2025 8:50am Drug induced neutropenia July 19, 2025 8:50am 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 July 26, 2025 7:49am Chemotherapy management, encounter for Salome garcia 2024 7:49am Constipation July 26, 2025 7:49am Immunotherapy encounter July 26, 2025 7:49am Advance Directives No Advanced Directives Records Found Advance Directive Response Recorded Date/ Time Living Will No January 08, 2024 10:20am Power of Strategic Debriefing Officer No January 07 10:20am Advance Directive Response Recorded Date/ Time Living Will No January 08, 2024 1:36pm Power of Strategic Debriefing Officer No January 07 1:36pm Advance Directive Response Recorded Date/ Time Living Will No January 08, 2024 2:36pm Power of Strategic Debriefing Officer No January 07 2:36pm Advance Directive Response Recorded Date/ Time Living Will No November 07, 2 024 3:21am Do you have a Healthcare Power of Strategic Debriefing Officer? No November 07, 2024 3:21am Advance Directive Response Recorded Date/ Time Do you have a Healthcare Power of Strategic Debriefing Officer? No April 07, 2025 10:51am Advance Directive Response Recorded Date/ Time Do you have a Healthcare Power of Strategic Debriefing Officer? No April 07, 2025 2:21pm Advance Directive Response Recorded Date/ Time Do you have a Healthcare Power of Strategic Debriefing Officer? No June 02, 2025 9:58am Do you have a Healthcare Power of Strategic Debriefing Officer? No April 07, 2025 2:21pm Advance Directive Response Recorded Date/ Time Do you have a Healthcare Power of Strategic Debriefing Officer? No June 02, 2025 9:58am Do you have a Healthcare Power of Strategic Debriefing Officer? No April 07, 2025 2:21pm Advance Directives on File Yes Augus t 2024 9:48am Living Will Yes June 14, 2025 9:48am Do you have a Healthcare Power of Strategic Debriefing Officer? Yes June 14, 2025 9:48am Name of Medical Power of Strategic Debriefing Officer Honey June 14, 2025 9:48am Advance Directives Yes June 14, 025 9:48am Advance Directive Response Recorded Date/ Time Do you have a Healthcare Power of Strategic Debriefing Officer? No June 02, 2025 9:58am Do you have a Healthcare Power of Strategic Debriefing Officer? No April 07, 2025 2:21pm Advance Directives on File Yes Augus t 2024 1:53pm Living Will Yes July 06 1:53pm Do you have a Healthcare Power of Strategic Debriefing Officer? Yes July 06, 2025 1:53pm Name of Medical Power of Strategic Debriefing Officer Honey July 06, 2025 1:53pm Advance Directives Yes July 06, 2025 1:53pm Summary Purpose Family History Relationship Condition Age at Onset Recorded Date/T genet father Malignant neoplasm Unknown mother Diabetes mellitus Unknown No Family History Records Found Additional Source Comments Patient Care team informatio n (unrecognized section and content) Team Status: Active Member Role Status Dates No Primary Care Physician Family Provider Active JESUS LONDON , MASTER DATA ANALYST-C Primary Care Provider Active Team Status: Inactive Member Role Status Dates No Primary Care Physician Primary Care Provider, Refer ring Provider Active Dr. Pierre Catalan DO Attending Provider Active Team Status: Active Member Role Status Dates JESUS LONDON , MASTER DATA ANALYST-C Primary Care Provider Active Dr. Pierre Catalan DO Referring Provider, Other Provide r Active Sharyn Chavez MASTER DATA ANALYST-C Attending Provider Active Team Status: Active Member Role Status Dates JESUS LONDON , MASTER DATA ANALYST-C Primary Care Provider Active Dr. James Lewis MD Emergency Provider Active Dr. Emma Wilson DO Attending Provider Active Team Status: Active Member Role Status Dates JESUS LONDON , MASTER DATA ANALYST-C Primary Care Provider Active Dr. Pierre Catalan DO Attending Provider, Referring Pro vider Active Team Status: Active Member Role Status Dates JESUS LONDON , MASTER DATA ANALYST-C Primary Care Provider Active Dr. James Lewis MD Emergency Provider Active Dr. Emma Wilson DO Admit Provider, Attending Provide r Active Team Status: Active Member Role Status Dates JESUS LONDON , MASTER DATA ANALYST-C Primary Care Provider Active Dr. James Lewis MD Emergency Provider Active Dr. Emma Wilson DO Admit Provider, Other Provider Ac tive Dr. Caden Lockwood MD Attending Provider, Other Provider Active Team Status: Active Member Role Status Dates JESUS LONDON , MASTER DATA ANALYST-C Primary Care Provider Active Dr. James Lewis MD Emergency Provider Active Dr. Emma Wilson DO Admit Provider, Att ending Provider, Other Provider Active Dr. Caden Lockwood MD Other Provider Active Team Status: Inactive Member Role Status Dates JESUS LONDON , MASTER DATA ANALYST-C Primary Care Provider Active Dr. James Lewis MD Emergency Provider Active Dr. Emma Wilson DO Admit Provider, Attending Provide r Active Dr. Caden Lockwood MD Other Provider Active Team Status: Inactive Member Role Status Dates JESUS LONDON , MASTER DATA ANALYST-C Primary Care Provider Active Dr. Pierre Catalan DO Attending Provider, Referring Pro vider Active Team Status: Active Member Role Status Dates JESUS LONDON , MASTER DATA ANALYST-C Primary Care Provider Active Dr. James Lewis MD Emergency Provider Active Dr. Emma Steve , DO Admit Provider, Ref erring Provider, Other Provider Active Dr. Caden Lockwood MD Attending Provider, Other Provider Active Team Status: Active Member Role Status Dates JESUS CALLAHAN MASTER DATA ANALYST-C Primary Care Provider Active Dr. James Lewis MD Emergency Provider Active Dr. Emma Wilson , DO Admit Provider, Other Provider Ac tive Dr. Caden Lockwood MD Attending Pr ovider, Referring Provider, Other Provider Active Team Status: Active Member Role Status Dates JESUS CALLAHAN MASTER DATA ANALYST-C Primary Care Provider Active Dr. Pierre Catalan , Referring Provider, Other Provide r Active Dr. Caden Lockwood MD Other Provider Active Dr. Justin Farah MD Attending Provider Active Team Status: Inactive Member Role Status Dates JESUS CALLAHAN MASTER DATA ANALYST-C Primary Care Provider Active Dr. Pierre Catalan , Attending Provider, Referring Pro vider Active Dr. Caden Lockwood MD Other Provider Active Team Status: Active Member Role Status Dates JESUS CALLAHAN MASTER DATA ANALYST-C Primary Care Provider Active Team Status: Inactive Member Role Status Dates JESUS CALLAHAN MASTER DATA ANALYST-C Primary Care Provider Active Start: November 07, 2024 End: November 08, 2024 Dr. Malcolm Christy , Emergency Provider Active Start: November 07, 2024 End: November 08, 2024 Dr. Goldy Patino , Admit Provider Active Start: November 07, 2024 End: November 08, 2024 Dr. Goldy Patino DO Referring Provider Active Start: November 07, 2024 End: November 08, 2024 Dr. Goldy Patino , Other Provider Active Start: November 07, 2024 End: November 08, 2024 Dr. Janak Ulloa MD Attending Provider Active Start: November 07, 2024 End: November 08, 2024 Team Status: Active Member Role Status Dates JESUS CALLAHAN MASTER DATA ANALYST-C Primary Care Provider Active Start: November 07, 2024 Dr. Malcolm Christy , Emergency Provider Active Start: November 07, 2024 Dr. Goldy Patino , Admit Provider Active Start: November 07, 2024 Dr. Goldy Patino DO Referring Provider Active Start: November 07, 2024 Dr. Goldy Patino , Other Provider Active Start: November 07, 2024 Dr. Janak Ulloa MD Other Provider Active Start: November 07, 2024 Dr. Pierre Catalan DO Attending Provider Active S tart: November 07, 2024 Team Status: Active Member Role Status Dates JESUS LONDON , MASTER DATA ANALYST-C Primary Care Provider Active Start: November 07, 2024 Dr. Malcolm Torres MD Attending Provider Active S tart: November 07, 2024 Dr. Goldy Patino DO Referring Provider Active Start: November 07, 2024 Team Status: Active Member Role Status Dates JESUS LONDON , MASTER DATA ANALYST-C Primary Care Provider Active Start: November 07, 2024 Dr. Freddy Mayen MD Attending Provider Active S tart: November 07, 2024 Team Status: Active Member Role Status Dates JESUS LONDON , MASTER DATA ANALYST-C Primary Care Provider Active Start: November 08, 2024 Dr. Malcolm Christy DO Emergency Provider Active Start: November 08, 2024 Dr. Goldy Patino DO Admit Provider Active Start: November 08, 2024 Dr. Goldy Patino DO Other Provider Active Start: November 08, 2024 Dr. Janak Ulloa MD Attending Provider Active Start: November 08, 2024 Dr. Janak Ulloa MD Other Provider Active Start: November 08, 2024 Team Status: Inactive Member Role Status Dates JESUS LONDON , MASTER DATA ANALYST-C Primary Care Provider Active Start: November 11, 2024 End: November 11, 2024 JESUS LONDON , MASTER DATA ANALYST-C Referring Provider Active Start: November 11, 2024 End: November 11, 2024 EDGARDO Steele Attending Provider Active Star t: November 11, 2024 End: November 11, 2024 Team Status: Inactive Member Role Status Dates JESUS LONDON , MASTER DATA ANALYST-C Primary Care Provider Active Start: December 01, 2024 End: December 01, 2024 EDGARDO Steele Attending Provider Active Star t: December 01, 2024 End: December 01, 2024 EDGARDO Steele Referring Provider Active Star t: December 01, 2024 End: December 01, 2024 Team Status: Inactive Member Role Status Dates JESUS LONDON , MASTER DATA ANALYST-C Primary Care Provider Active Start: December 08, 2024 End: December 08, 2024 EDGARDO Steele Attending Provider Active Star t: December 08, 2024 End: December 08, 2024 EDGARDO Steele Referring Provider Active Star t: December 08, 2024 End: December 08, 2024 Team Status: Active Member Role Status Dates JESUS CARMENETLER , MASTER DATA ANALYST-C Primary Care Provider Active Start: December 08, 2024 Dr. Malcolm Torres MD Attending Provider Active S tart: December 08, 2024 Team Status: Inactive Member Role Status Dates JESUS CARMENETLER , MASTER DATA ANALYST-C Primary Care Provider Active Start: December 26, 2024 End: December 26, 2024 JESUS CALLAHAN , MASTER DATA ANALYST-C Referring Provider Active Start: December 26, 2024 End: December 26, 2024 Dr. Malcolm Torres MD Attending Provider Active S tart: December 26, 2024 End: December 26, 2024 Team Status: Inactive Member Role Status Dates JESUS CALLAHAN , MASTER DATA ANALYST-C Primary Care Provider Active Start: January 31, 2025 End: January 31, 2025 JESUS CARMENETLER , MASTER DATA ANALYST-C Referring Provider Active Start: January 31, 2025 End: January 31, 2025 Raegan Ledezma MASTER DATA ANALYST, MASTER DATA ANALYST-C Attending Provider Active Start: January 31, 2025 End: January 31, 2025 Team Status: Inactive Member Role Status Dates JESUS CARMENETLER , MASTER DATA ANALYST-C Primary Care Provider Active Start: February 27, 2025 End: February 27, 2025 Raegan Ledezma MASTER DATA ANALYST, MASTER DATA ANALYST-C Attending Provider Active Start: February 27, 2025 End: February 27, 2025 Raegan Ledezma MASTER DATA ANALYST, MASTER DATA ANALYST-C Referring Provider Active Start: February 27, 2025 End: February 27, 2025 Team Status: Inactive Member Role Status Dates JESUS CARMENETGORDO MASTER DATA ANALYST-C Primary Care Provider Active Start: March 02, 2025 End: March 02, 2025 Raegan Ledezma MASTER DATA ANALYST, MASTER DATA ANALYST-C Attending Provider Active Start: March 02, 2025 End: March 02, 2025 Raegan Ledezma MASTER DATA ANALYST, MASTER DATA ANALYST-C Referring Provider Active Start: March 02, 2025 End: March 02, 2025 Team Status: Active Member Role Status Dates JESUS CARMENETLER , MASTER DATA ANALYST-C Primary Care Provider Active Start: March 03, 2025 Raegan Ledezma MASTER DATA ANALYST, MASTER DATA ANALYST-C Referring Provider Active Start: March 03, 2025 Raegan Ledezma MASTER DATA ANALYST, MASTER DATA ANALYST-C Other Provider Active Start: March 03, 2025 Dr. Pierre Catalan DO Attending Provider Active S tart: March 03, 2025 Team Status: Inactive Member Role Status Dates JESUS CALLAHAN MASTER DATA ANALYST-C Primary Care Provider Active Start: March 14, 2025 End: March 14, 2025 JESUS CALLAHAN MASTER DATA ANALYST-C Referring Provider Active Start: March 14, 2025 End: March 14, 2025 Raegan Ledemza MASTER DATA ANALYST, MASTER DATA ANALYST-C Attending Provider Active Start: March 14, 2025 End: March 14, 2025 Team Status: Active Member Role Status Dates JESUS CALLAHAN MASTER DATA ANALYST-C Primary Care Provider Active Start: April 07, 2025 Raegan Ledezma MASTER DATA ANALYST, MASTER DATA ANALYST-C Attending Provider Active Start: April 07, 2025 Raegan Ledezma MASTER DATA ANALYST, MASTER DATA ANALYST-C Referring Provider Active Start: April 07, 2025 Team Status: Inactive Member Role Status Dates JESUS CALLAHAN MASTER DATA ANALYST-C Primary Care Provider Active Start: April 07, 2025 End: April 07, 2025 Dr. Stefan Shultz MD Emergency Provider Active Start: April 07, 2025 End: April 07, 2025 Team Status: Inactive Member Role Status Dates JESUS CALLAHAN MASTER DATA ANALYST-C Primary Care Provider Active Start: April 07, 2025 End: April 10, 2025 Dr. Stefan Shultz MD Emergency Provider Active Start: April 07, 2025 End: April 10, 2025 Dr. Michelle Do MD Admit Provider Active St art: April 07, 2025 End: April 10, 2025 Dr. Michelle Do MD Other Provider Active St art: April 07, 2025 End: April 10, 2025 Dr. Ray Sanders MD Other Provider Active St art: April 07, 2025 End: April 10, 2025 Dr. Malcolm Hanson DO Attending Provider Active Start: April 07, 2025 End: April 10, 2025 Dr. Chuy Covarrubias MD Other Provider Active Sta rt: April 07, 2025 End: April 10, 2025 Team Status: Active Member Role Status Dates JESUS CALLAHAN MASTER DATA ANALYST-C Primary Care Provider Active Start: April 07, 2025 Dr. Stefan Shultz MD Emergency Provider Active Start: April 07, 2025 Dr. Michelle Do MD Admit Provider Active St art: April 07, 2025 Dr. Michelle Do MD Other Provider Active St art: April 07, 2025 Dr. Ray Sanders MD Attending Provider Active Start: April 07, 2025 Dr. Ray Sanders MD Other Provider Active St art: April 07, 2025 Team Status: Active Member Role Status Dates JESUS CALLAHAN NP-C Primary Care Provider Active Start: April 08, 2025 Dr. Stefan Shultz MD Emergency Provider Active Start: April 08, 2025 Dr. Michelle Do MD Admit Provider Active St art: April 08, 2025 Dr. Michelle Do MD Other Provider Active St art: April 08, 2025 Dr. Ray Sanders MD Attending Provider Active Start: April 08, 2025 Dr. Ray Sanders MD Other Provider Active St art: April 08, 2025 Team Status: Active Member Role Status Dates JESUS CALLAHAN NP-Jonathan Primary Care Provider Active Start: April 08, 2025 Dr. Stefan Shultz MD Emergency Provider Active Start: April 08, 2025 Dr. Michelle Do MD Admit Provider Active St art: April 08, 2025 Dr. Michelle Do MD Other Provider Active St art: April 08, 2025 Dr. Ray Sanders MD Other Provider Active St art: April 08, 2025 Dr. Chuy Covarrubias MD Attending Provider Active Start: April 08, 2025 Dr. Chuy Covarrubias MD Other Provider Active Sta rt: April 08, 2025 Team Status: Active Member Role Status Dates JESUS CALLAHAN NP-C Primary Care Provider Active Start: April 09, 2025 Dr. Stefan Shultz MD Emergency Provider Active Start: April 09, 2025 Dr. Michelle Do MD Admit Provider Active St art: April 09, 2025 Dr. Michelle Do MD Other Provider Active St art: April 09, 2025 Dr. Ray Sanders MD Attending Provider Active Start: April 09, 2025 Dr. Ray Sanders MD Other Provider Active St art: April 09, 2025 Dr. Chuy Covarrubias MD Other Provider Active Sta rt: April 09, 2025 Team Status: Active Member Role Status Dates JESUS CALLAHAN [facility] Primary Care Provider Active Start: April 09, 2025 Dr. Stefan Shultz MD Emergency Provider Active Start: April 09, 2025 Dr. Michelle Do MD Admit Provider Active St art: April 09, 2025 Dr. Michelle Do MD Other Provider Active St art: April 09, 2025 Dr. Ray Sanders MD Other Provider Active St art: April 09, 2025 Dr. Chuy Covarrubias MD Attending Provider Active Start: April 09, 2025 Dr. Chuy Covarrubias MD Other Provider Active Sta rt: April 09, 2025 Team Status: Active Member Role Status Dates JESUS CALLAHAN [facility] Primary Care Provider Active Start: April 10, 2025 Dr. Stefan Shultz MD Emergency Provider Active Start: April 10, 2025 Dr. Michelle Do MD Admit Provider Active St art: April 10, 2025 Dr. Michelle Do MD Other Provider Active St art: April 10, 2025 Dr. Ray Sanders MD Other Provider Active St art: April 10, 2025 Dr. Malcolm Hanson DO Attending Provider Active Start: April 10, 2025 Dr. Malcolm Hanson DO Other Provider Active Star t: April 10, 2025 Dr. Chuy Covarrubias MD Other Provider Active Sta rt: April 10, 2025 Team Status: Active Member Role Status Dates JESUS CALLAHAN [facility] Primary Care Provider Active Start: April 10, 2025 Dr. Stefan Shultz MD Emergency Provider Active Start: April 10, 2025 Dr. Michelle Do MD Admit Provider Active St art: April 10, 2025 Dr. Michelle Do MD Other Provider Active St art: April 10, 2025 Dr. Ray Sanders MD Other Provider Active St art: April 10, 2025 Dr. Malcolm Hanson DO Other Provider Active Star t: April 10, 2025 Dr. Chuy Covarrubias MD Other Provider Active Sta rt: April 10, 2025 Padma Guerrero PA, PA-C Attending Provider Active Start: April 10, 2025 Team Status: Inactive Member Role Status Dates JESUS CALLAHAN NP-C Primary Care Provider Active Start: April 07, 2025 End: April 07, 2025 Raegan Ledezma MASTER DATA ANALYST, MASTER DATA ANALYST-C Attending Provider Active Start: April 07, 2025 End: April 07, 2025 Raegan Ledezma MASTER DATA ANALYST, MASTER DATA ANALYST-C Referring Provider Active Start: April 07, 2025 End: April 07, 2025 Team Status: Inactive Member Role Status Dates JESUS CALLAHAN NP-C Primary Care Provider Active Start: April 19, 2025 End: April 19, 2025 JESUS CALLAHAN NP-C Referring Provider Active Start: April 19, 2025 End: April 19, 2025 Raegan Ledezma MASTER DATA ANALYST, MASTER DATA ANALYST-C Attending Provider Active Start: April 19, 2025 End: April 19, 2025 Team Status: Active Member Role Status Dates JESUS CALLAHAN NP-C Primary Care Provider Active Start: April 07, 2025 Dr. Stefan Shultz MD Emergency Provider Active Start: April 07, 2025 Dr. Michelle Do MD Admit Provider Active St art: April 07, 2025 Dr. Michelle Do MD Other Provider Active St art: April 07, 2025 Dr. Ray Sanders MD Attending Provider Active Start: April 07, 2025 Dr. Ray Sanders MD Other Provider Active St art: April 07, 2025 Dr. Malcolm Hanson DO Referring Provider Active Start: April 07, 2025 Team Status: Inactive Member Role Status Dates JESUS CALLAHAN NP-C Primary Care Provider Active Start: April 25, 2025 End: April 25, 2025 Raegan Ledezma NP, MASTER DATA ANALYST-C Attending Provider Active Start: April 25, 2025 End: April 25, 2025 Raegan Ledezma NP, MASTER DATA ANALYST-C Referring Provider Active Start: April 25, 2025 End: April 25, 2025 Team Status: Inactive Member Role Status Dates JESUS CALLAHAN NP-C Primary Care Provider Active Start: May 01, 2025 End: May 01, 2025 Dr. Ayden Bosch MD Attending Provider Active S tart: May 01, 2025 End: May 01, 2025 Raegan Ledezma MASTER DATA ANALYST, MASTER DATA ANALYST-C Referring Provider Active Start: May 01, 2025 End: May 01, 2025 Team Status: Active Member Role/Relationship Status Dates JESUS LONDON , MASTER DATA ANALYST-C Primary Care Provider Active Team Status: Inactive Member Role/Relationship Status Dates JESUS LONDON , MASTER DATA ANALYST-C Primary Care Provider Active Start: January 31, 2025 End: January 31, 2025 JESUS CALLAHAN , MASTER DATA ANALYST-C Referring Provider Active Start: January 31, 2025 End: January 31, 2025 Raegan Ledezma MASTER DATA ANALYST, MASTER DATA ANALYST-C Attending Provider Active Start: January 31, 2025 End: January 31, 2025 Team Status: Inactive Member Role/Relationship Status Dates JESUS CALLAHAN MASTER DATA ANALYST-C Primary Care Provider Active Start: February 27, 2025 End: February 27, 2025 Raegan Ledezma MASTER DATA ANALYST, MASTER DATA ANALYST-C Attending Provider Active Start: February 27, 2025 End: February 27, 2025 Raegan Ledezma MASTER DATA ANALYST, MASTER DATA ANALYST-C Referring Provider Active Start: February 27, 2025 End: February 27, 2025 Team Status: Inactive Member Role/Relationship Status Dates JESUS CALLAHAN , MASTER DATA ANALYST-C Primary Care Provider Active Start: March 02, 2025 End: March 02, 2025 Raegan Ledezma MASTER DATA ANALYST, MASTER DATA ANALYST-C Attending Provider Active Start: March 02, 2025 End: March 02, 2025 Raegan Ledezma MASTER DATA ANALYST, MASTER DATA ANALYST-C Referring Provider Active Start: March 02, 2025 End: March 02, 2025 Team Status: Active Member Role/Relationship Status Dates JESUS CALLAHAN MASTER DATA ANALYST-C Primary Care Provider Active Start: March 03, 2025 Raegan Ledezma MASTER DATA ANALYST, MASTER DATA ANALYST-C Referring Provider Active Start: March 03, 2025 Raegan Ledezma MASTER DATA ANALYST, MASTER DATA ANALYST-C Other Provider Active Start: March 03, 2025 Dr. Pierre Catalan DO Attending Provider Active S tart: March 03, 2025 Team Status: Inactive Member Role/Relationship Status Dates JESUS LONDON , MASTER DATA ANALYST-C Primary Care Provider Active Start: March 14, 2025 End: March 14, 2025 JESUS CALLAHAN , MASTER DATA ANALYST-C Referring Provider Active Start: March 14, 2025 End: March 14, 2025 Raegan Ledezma MASTER DATA ANALYST, MASTER DATA ANALYST-C Attending Provider Active Start: March 14, 2025 End: March 14, 2025 Team Status: Inactive Member Role/Relationship Status Dates FRIEDA KEARNEY Primary Care Provider Active Start: April 07, 2025 End: April 07, 2025 Raegan Ledezma MASTER DATA ANALYST MASTER DATA ANALYST-C Attending Provider Active Start: April 07, 2025 End: April 07, 2025 Raegan Ledezma MASTER DATA ANALYST, MASTER DATA ANALYST-C Referring Provider Active Start: April 07, 2025 End: April 07, 2025 Team Status: Inactive Member Role/Relationship Status Dates FRIEDA KEARNEY Primary Care Provider Active Start: April 07, 2025 End: April 10, 2025 Dr. Stefan Shultz MD Emergency Provider Active Start: April 07, 2025 End: April 10, 2025 Dr. Michelle Do MD Admit Provider Active St art: April 07, 2025 End: April 10, 2025 Dr. Michelle Do MD Other Provider Active St art: April 07, 2025 End: April 10, 2025 Dr. Ray Sanders MD Other Provider Active St art: April 07, 2025 End: April 10, 2025 Dr. Malcolm Hanson DO Attending Provider Active Start: April 07, 2025 End: April 10, 2025 Dr. Chuy Covarrubias MD Other Provider Active Sta rt: April 07, 2025 End: April 10, 2025 Team Status: Active Member Role/Relationship Status Dates FRIEDA KEARNEY Primary Care Provider Active Start: April 07, 2025 Dr. Stefan Shultz MD Emergency Provider Active Start: April 07, 2025 Dr. Michelle Do MD Admit Provider Active St art: April 07, 2025 Dr. Michelle Do MD Other Provider Active St art: April 07, 2025 Dr. Ray Sanders MD Attending Provider Active Start: April 07, 2025 Dr. Ray Sanders MD Other Provider Active St art: April 07, 2025 Dr. Malcolm Hanson DO Referring Provider Active Start: April 07, 2025 Team Status: Active Member Role/Relationship Status Dates FRIEDA KEARNEY Primary Care Provider Active Start: April 08, 2025 Dr. Stefan Shultz MD Emergency Provider Active Start: April 08, 2025 Dr. Michelle Do MD Admit Provider Active St art: April 08, 2025 Dr. Michelle Do MD Other Provider Active St art: April 08, 2025 Dr. Ray Sanders MD Attending Provider Active Start: April 08, 2025 Dr. Ray Sanders MD Other Provider Active St art: April 08, 2025 Team Status: Active Member Role/Relationship Status Dates JESUS CALLAHAN NP-C Primary Care Provider Active Start: April 08, 2025 Dr. Stefan Shultz MD Emergency Provider Active Start: April 08, 2025 Dr. Michelle Do MD Admit Provider Active St art: April 08, 2025 Dr. Michelle Do MD Other Provider Active St art: April 08, 2025 Dr. Ray Sanders MD Other Provider Active St art: April 08, 2025 Dr. Chuy Covarrubias MD Attending Provider Active Start: April 08, 2025 Dr. Chuy Covarrubias MD Other Provider Active Sta rt: April 08, 2025 Team Status: Active Member Role/Relationship Status Dates JESUS CALLAHAN NP-Jonathan Primary Care Provider Active Start: April 09, 2025 Dr. Stefan Shultz MD Emergency Provider Active Start: April 09, 2025 Dr. Michelle Do MD Admit Provider Active St art: April 09, 2025 Dr. Michelle Do MD Other Provider Active St art: April 09, 2025 Dr. Ray Sanders MD Attending Provider Active Start: April 09, 2025 Dr. Ray Sanders MD Other Provider Active St art: April 09, 2025 Dr. Chuy Covarrubias MD Other Provider Active Sta rt: April 09, 2025 Team Status: Active Member Role/Relationship Status Dates JESUS CALLAHAN NP-Jonathan Primary Care Provider Active Start: April 09, 2025 Dr. Stefan Shutlz MD Emergency Provider Active Start: April 09, 2025 Dr. Michelle Do MD Admit Provider Active St art: April 09, 2025 Dr. Michelle Do MD Other Provider Active St art: April 09, 2025 Dr. Ray Sanders MD Other Provider Active St art: April 09, 2025 Dr. Chuy Covarrubias MD Attending Provider Active Start: April 09, 2025 Dr. Chuy Covarrubias MD Other Provider Active Sta rt: April 09, 2025 Team Status: Active Member Role/Relationship Status Dates FRIEDA KEARNEY Primary Care Provider Active Start: April 10, 2025 Dr. Stefan Shultz MD Emergency Provider Active Start: April 10, 2025 Dr. Michelle Do MD Admit Provider Active St art: April 10, 2025 Dr. Michelle Do MD Other Provider Active St art: April 10, 2025 Dr. Ray Sanders MD Other Provider Active St art: April 10, 2025 Dr. Malcolm Hanson DO Attending Provider Active Start: April 10, 2025 Dr. Malcolm Hanson DO Other Provider Active Star t: April 10, 2025 Dr. Chuy Covarrubias MD Other Provider Active Sta rt: April 10, 2025 Team Status: Active Member Role/Relationship Status Dates FRIEDA KEARNEY Primary Care Provider Active Start: April 10, 2025 Dr. Stefan Shultz MD Emergency Provider Active Start: April 10, 2025 Dr. Michelle Do MD Admit Provider Active St art: April 10, 2025 Dr. Michelle Do MD Other Provider Active St art: April 10, 2025 Dr. Ray Sanders MD Other Provider Active St art: April 10, 2025 Dr. Malcolm Hanson DO Other Provider Active Star t: April 10, 2025 Dr. Chuy Covarrubias MD Other Provider Active Sta rt: April 10, 2025 Padma REYNOSO PA-C Attending Provider Active Start: April 10, 2025 Team Status: Inactive Member Role/Relationship Status Dates FRIEDA KEARNEY Primary Care Provider Active Start: April 19, 2025 End: April 19, 2025 FRIEDA KEARNEY Referring Provider Active Start: April 19, 2025 End: April 19, 2025 LANI Mejía NPC Attending Provider Active Start: April 19, 2025 End: April 19, 2025 Team Status: Inactive Member Role/Relationship Status Dates JESUS LONDON , MASTER DATA ANALYST-C Primary Care Provider Active Start: April 25, 2025 End: April 25, 2025 Raegan Ledezma MASTER DATA ANALYST, MASTER DATA ANALYST-C Attending Provider Active Start: April 25, 2025 End: April 25, 2025 Raegan Ledezma MASTER DATA ANALYST, MASTER DATA ANALYST-C Referring Provider Active Start: April 25, 2025 End: April 25, 2025 Team Status: Inactive Member Role/Relationship Status Dates JESUS LONDON , MASTER DATA ANALYST-C Primary Care Provider Active Start: May 01, 2025 End: May 01, 2025 Dr. Ayden Bosch MD Attending Provider Active S tart: May 01, 2025 End: May 01, 2025 Raegan Ledezma MASTER DATA ANALYST, MASTER DATA ANALYST-C Referring Provider Active Start: May 01, 2025 End: May 01, 2025 Team Status: Active Member Role/Relationship Status Dates JESUS LONDON , MASTER DATA ANALYST-C Primary Care Provider Active Start: May 01, 2025 Dr. Ayden Bosch MD Attending Provider Active S tart: May 01, 2025 Dr. Ayden Bosch MD Referring Provider Active S tart: May 01, 2025 Team Status: Inactive Member Role/Relationship Status Dates JESUS LONDON , MASTER DATA ANALYST-C Primary Care Provider Active Start: May 29, 2025 End: May 29, 2025 JESUS CALLAHAN , MASTER DATA ANALYST-C Referring Provider Active Start: May 29, 2025 End: May 29, 2025 Dr. Ayden Bosch MD Attending Provider Active S tart: May 29, 2025 End: May 29, 2025 Team Status: Inactive Member Role/Relationship Status Dates JESUS LONDON , MASTER DATA ANALYST-C Primary Care Provider Active Start: May 31, 2025 End: May 31, 2025 Dr. Ray Sanders MD Attending Provider Active Start: May 31, 2025 End: May 31, 2025 Dr. Ayden Bosch MD Referring Provider Active S tart: May 31, 2025 End: May 31, 2025 Team Status: Inactive Member Role/Relationship Status Dates JESUS LONDON , MASTER DATA ANALYST-C Primary Care Provider Active Start: February 27, 2025 End: February 27, 2025 Raegan Ledezma MASTER DATA ANALYST, MASTER DATA ANALYST-C Attending Provider Active Start: February 27, 2025 End: February 27, 2025 Raegan Ledezma MASTER DATA ANALYST, MASTER DATA ANALYST-C Referring Provider Active Start: February 27, 2025 End: February 27, 2025 Team Status: Inactive Member Role/Relationship Status Dates JESUS CALLAHAN , MASTER DATA ANALYST-C Primary Care Provider Active Start: March 02, 2025 End: March 02, 2025 Raegan Ledezma MASTER DATA ANALYST, MASTER DATA ANALYST-C Attending Provider Active Start: March 02, 2025 End: March 02, 2025 Raegan Ledezma MASTER DATA ANALYST, MASTER DATA ANALYST-C Referring Provider Active Start: March 02, 2025 End: March 02, 2025 Team Status: Active Member Role/Relationship Status Dates JESUS CARMENETLER , MASTER DATA ANALYST-C Primary Care Provider Active Start: March 03, 2025 Raegan Ledezma MASTER DATA ANALYST, MASTER DATA ANALYST-C Referring Provider Active Start: March 03, 2025 Raegan Ledezma MASTER DATA ANALYST, MASTER DATA ANALYST-C Other Provider Active Start: March 03, 2025 Dr. Pierre Catalan DO Attending Provider Active S tart: March 03, 2025 Team Status: Inactive Member Role/Relationship Status Dates JESUS LONDON , MASTER DATA ANALYST-C Primary Care Provider Active Start: March 14, 2025 End: March 14, 2025 JESUS CALLAHAN , MASTER DATA ANALYST-C Referring Provider Active Start: March 14, 2025 End: March 14, 2025 Raegan Ledezma MASTER DATA ANALYST, MASTER DATA ANALYST-C Attending Provider Active Start: March 14, 2025 End: March 14, 2025 Team Status: Inactive Member Role/Relationship Status Dates JSEUS LONDON , MASTER DATA ANALYST-C Primary Care Provider Active Start: April 07, 2025 End: April 07, 2025 Raegan Ledezma MASTER DATA ANALYST, MASTER DATA ANALYST-C Attending Provider Active Start: April 07, 2025 End: April 07, 2025 Raegan Ledezma MASTER DATA ANALYST, MASTER DATA ANALYST-C Referring Provider Active Start: April 07, 2025 End: April 07, 2025 Team Status: Inactive Member Role/Relationship Status Dates JESUS LONDON , MASTER DATA ANALYST-C Primary Care Provider Active Start: April 07, 2025 End: April 10, 2025 Dr. Stefan Shultz MD Emergency Provider Active Start: April 07, 2025 End: April 10, 2025 Dr. Michelle Do MD Admit Provider Active St art: April 07, 2025 End: April 10, 2025 Dr. Michelle Do MD Other Provider Active St art: April 07, 2025 End: April 10, 2025 Dr. Ray Sanders MD Other Provider Active St art: April 07, 2025 End: April 10, 2025 Dr. Malcolm Hanson DO Attending Provider Active Start: April 07, 2025 End: April 10, 2025 Dr. Chuy Covarrubias MD Other Provider Active Sta rt: April 07, 2025 End: April 10, 2025 Team Status: Active Member Role/Relationship Status Dates JESUS CALLAHAN MASTER DATA ANALYST-C Primary Care Provider Active Start: April 07, 2025 Dr. Stefan Shultz MD Emergency Provider Active Start: April 07, 2025 Dr. Michelle Do MD Admit Provider Active St art: April 07, 2025 Dr. Michelle Do MD Other Provider Active St art: April 07, 2025 Dr. Ray Sanders MD Attending Provider Active Start: April 07, 2025 Dr. Ray Sanders MD Other Provider Active St art: April 07, 2025 Dr. Malcolm Hanson DO Referring Provider Active Start: April 07, 2025 Team Status: Active Member Role/Relationship Status Dates JESUS CALLAHAN NP-C Primary Care Provider Active Start: April 08, 2025 Dr. Stefan Shultz MD Emergency Provider Active Start: April 08, 2025 Dr. Michelle Do MD Admit Provider Active St art: April 08, 2025 Dr. Michelle Do MD Other Provider Active St art: April 08, 2025 Dr. Ray Sanders MD Attending Provider Active Start: April 08, 2025 Dr. Ray Sanders MD Other Provider Active St art: April 08, 2025 Team Status: Active Member Role/Relationship Status Dates JESUS CALLAHAN NP-C Primary Care Provider Active Start: April 08, 2025 Dr. Stefan Shultz MD Emergency Provider Active Start: April 08, 2025 Dr. Michelle Do MD Admit Provider Active St art: April 08, 2025 Dr. Michelle Do MD Other Provider Active St art: April 08, 2025 Dr. Ray Sanders MD Other Provider Active St art: April 08, 2025 Dr. Chuy Covarrubias MD Attending Provider Active Start: April 08, 2025 Dr. Chuy Covarrubias MD Other Provider Active Sta rt: April 08, 2025 Team Status: Active Member Role/Relationship Status Dates FRIEDA KEARNEY Primary Care Provider Active Start: April 09, 2025 Dr. Stefan Shultz MD Emergency Provider Active Start: April 09, 2025 Dr. Michelle Do MD Admit Provider Active St art: April 09, 2025 Dr. Michelle Do MD Other Provider Active St art: April 09, 2025 Dr. Ray Sanders MD Attending Provider Active Start: April 09, 2025 Dr. Ray Sanders MD Other Provider Active St art: April 09, 2025 Dr. Chuy Covarrubias MD Other Provider Active Sta rt: April 09, 2025 Team Status: Active Member Role/Relationship Status Dates FRIEDA KEARNEY Primary Care Provider Active Start: April 09, 2025 Dr. Stefan Shultz MD Emergency Provider Active Start: April 09, 2025 Dr. Michelle Do MD Admit Provider Active St art: April 09, 2025 Dr. Michelle Do MD Other Provider Active St art: April 09, 2025 Dr. Ray Sanders MD Other Provider Active St art: April 09, 2025 Dr. Chuy Covarrubias MD Attending Provider Active Start: April 09, 2025 Dr. Chuy Covarrubias MD Other Provider Active Sta rt: April 09, 2025 Team Status: Active Member Role/Relationship Status Dates FRIEDA KEARNEY Primary Care Provider Active Start: April 10, 2025 Dr. Stefan Shultz MD Emergency Provider Active Start: April 10, 2025 Dr. Michelle Do MD Admit Provider Active St art: April 10, 2025 Dr. Michelle Do MD Other Provider Active St art: April 10, 2025 Dr. Ray Sanders MD Other Provider Active St art: April 10, 2025 Dr. Malcolm Hanson DO Attending Provider Active Start: April 10, 2025 Dr. Malcolm Hanson DO Other Provider Active Star t: April 10, 2025 Dr. Chuy Covarrubias MD Other Provider Active Sta rt: April 10, 2025 Team Status: Active Member Role/Relationship Status Dates JESUS CALLAHAN , MASTER DATA ANALYST-C Primary Care Provider Active Start: April 10, 2025 Dr. Stefan Shultz MD Emergency Provider Active Start: April 10, 2025 Dr. Michelle Do MD Admit Provider Active St art: April 10, 2025 Dr. Michelle Do MD Other Provider Active St art: April 10, 2025 Dr. aRy Sanders MD Other Provider Active St art: April 10, 2025 Dr. Malcolm Hanson DO Other Provider Active Star t: April 10, 2025 Dr. Chuy Covarrubias MD Other Provider Active Sta rt: April 10, 2025 Padma Guerrero PA, PA-C Attending Provider Active Start: April 10, 2025 Team Status: Inactive Member Role/Relationship Status Dates JESUS CALLAHAN MASTER DATA ANALYST-C Primary Care Provider Active Start: April 19, 2025 End: April 19, 2025 JESUS CALLAHAN MASTER DATA ANALYST-C Referring Provider Active Start: April 19, 2025 End: April 19, 2025 Raegan Ledezma MASTER DATA ANALYST, MASTER DATA ANALYST-C Attending Provider Active Start: April 19, 2025 End: April 19, 2025 Team Status: Inactive Member Role/Relationship Status Dates JESUS CALLAHAN MASTER DATA ANALYST-C Primary Care Provider Active Start: April 25, 2025 End: April 25, 2025 Raegan Ledezma MASTER DATA ANALYST, MASTER DATA ANALYST-C Attending Provider Active Start: April 25, 2025 End: April 25, 2025 Raegan Ledezma MASTER DATA ANALYST, MASTER DATA ANALYST-C Referring Provider Active Start: April 25, 2025 End: April 25, 2025 Team Status: Inactive Member Role/Relationship Status Dates JESUS CALLAHAN MASTER DATA ANALYST-C Primary Care Provider Active Start: May 01, 2025 End: May 01, 2025 Dr. Ayden Bosch MD Attending Provider Active S tart: May 01, 2025 End: May 01, 2025 Raegan Ledezma MASTER DATA ANALYST, MASTER DATA ANALYST-C Referring Provider Active Start: May 01, 2025 End: May 01, 2025 Team Status: Active Member Role/Relationship Status Dates JESUS CALLAHAN , MASTER DATA ANALYST-C Primary Care Provider Active Start: May 01, 2025 Dr. Ayden Bosch MD Attending Provider Active S tart: May 01, 2025 Dr. Ayden Bosch MD Referring Provider Active S tart: May 01, 2025 Team Status: Inactive Member Role/Relationship Status Dates JESUS LONDON , MASTER DATA ANALYST-C Primary Care Provider Active Start: May 29, 2025 End: May 29, 2025 JESUS LONDON , MASTER DATA ANALYST-C Referring Provider Active Start: May 29, 2025 End: May 29, 2025 Dr. Ayden Bosch MD Attending Provider Active S tart: May 29, 2025 End: May 29, 2025 Team Status: Inactive Member Role/Relationship Status Dates JESUS LONDON , MASTER DATA ANALYST-C Primary Care Provider Active Start: May 31, 2025 End: May 31, 2025 Dr. Ray Sanders MD Attending Provider Active Start: May 31, 2025 End: May 31, 2025 Dr. Ayden Bosch MD Referring Provider Active S tart: May 31, 2025 End: May 31, 2025 Team Status: Inactive Member Role/Relationship Status Dates JESUS CARMENETLER , MASTER DATA ANALYST-C Primary Care Provider Active Start: June 05, 2025 End: June 05, 2025 Dr. Ray Sanders MD Attending Provider Active Start: June 05, 2025 End: June 05, 2025 Dr. Ray Sanders MD Referring Provider Active Start: June 05, 2025 End: June 05, 2025 Team Status: Active Member Role/Relationship Status Dates JESUS LONDON , MASTER DATA ANALYST-C Primary Care Provider Active Start: June 05, 2025 Dr. Ray Sanders MD Attending Provider Active Start: June 05, 2025 Dr. Ray Sanders MD Referring Provider Active Start: June 05, 2025 Dr. Ray Sanders MD Other Provider Active St art: June 05, 2025 Team Status: Inactive Member Role/Relationship Status Dates JESUS LONDON , MASTER DATA ANALYST-C Primary Care Provider Active Start: May 29, 2025 End: May 29, 2025 JESUS LONDON , MASTER DATA ANALYST-C Referring Provider Active Start: May 29, 2025 End: May 29, 2025 Dr. Ayden Bosch MD Attending Provider Active S tart: May 29, 2025 End: May 29, 2025 Team Status: Inactive Member Role/Relationship Status Dates JESUS LONDON , MASTER DATA ANALYST-C Primary Care Provider Active Start: May 31, 2025 End: May 31, 2025 Dr. Ray Sanders MD Attending Provider Active Start: May 31, 2025 End: May 31, 2025 Dr. Ayden Bosch MD Referring Provider Active S tart: May 31, 2025 End: May 31, 2025 Team Status: Inactive Member Role/Relationship Status Dates JESUS LONDON , MASTER DATA ANALYST-C Primary Care Provider Active Start: June 05, 2025 End: June 05, 2025 Dr. Ray Sanders MD Attending Provider Active Start: June 05, 2025 End: June 05, 2025 Dr. Ray Sanders MD Referring Provider Active Start: June 05, 2025 End: June 05, 2025 Team Status: Active Member Role/Relationship Status Dates JESUS LONDON , MASTER DATA ANALYST-C Primary Care Provider Active Start: June 05, 2025 Dr. Ray Sanders MD Attending Provider Active Start: June 05, 2025 Dr. Ray Sanders MD Referring Provider Active Start: June 05, 2025 Dr. Ray Sanders MD Other Provider Active St art: June 05, 2025 Team Status: Inactive Member Role/Relationship Status Dates JESUS LONDON , MASTER DATA ANALYST-C Primary Care Provider Active Start: June 12, 2025 End: June 12, 2025 JESUS LONDON , MASTER DATA ANALYST-C Referring Provider Active Start: June 12, 2025 End: June 12, 2025 Camille Emanuel MASTER DATA ANALYST, MASTER DATA ANALYST-C Attending Provider Active Start: June 12, 2025 End: June 12, 2025 Team Status: Inactive Member Role/Relationship Status Dates JESUS LONDON , MASTER DATA ANALYST-C Primary Care Provider Active Start: June 14, 2025 End: June 14, 2025 JESUS LONDON , MASTER DATA ANALYST-C Referring Provider Active Start: June 14, 2025 End: June 14, 2025 Dr. Ayden Bosch MD Attending Provider Active S tart: June 14, 2025 End: June 14, 2025 Team Status: Active Member Role/Relationship Status Dates JESUS LONDON , MASTER DATA ANALYST-C Primary Care Provider Active Start: June 14, 2025 Dr. Ayden Bosch MD Attending Provider Active S tart: June 14, 2025 Dr. Ayden Bosch MD Referring Provider Active S tart: June 14, 2025 Team Status: Inactive Member Role/Relationship Status Dates JESUS CALLAHAN MASTER DATA ANALYST-C Primary Care Provider Active Start: March 02, 2025 End: March 02, 2025 Raegan Ledezma MASTER DATA ANALYST, MASTER DATA ANALYST-C Attending Provider Active Start: March 02, 2025 End: March 02, 2025 Raegan Ledezma MASTER DATA ANALYST, MASTER DATA ANALYST-C Referring Provider Active Start: March 02, 2025 End: March 02, 2025 Team Status: Active Member Role/Relationship Status Dates JESUS CALLAHAN MASTER DATA ANALYST-C Primary Care Provider Active Start: March 03, 2025 Raegan Ledezma MASTER DATA ANALYST, MASTER DATA ANALYST-C Referring Provider Active Start: March 03, 2025 Raegan Ledezma MASTER DATA ANALYST, MASTER DATA ANALYST-C Other Provider Active Start: March 03, 2025 Dr. Pierre Catalan DO Attending Provider Active S tart: March 03, 2025 Team Status: Inactive Member Role/Relationship Status Dates JESUS LONDON , MASTER DATA ANALYST-C Primary Care Provider Active Start: March 14, 2025 End: March 14, 2025 JESUS CALLAHAN MASTER DATA ANALYST-C Referring Provider Active Start: March 14, 2025 End: March 14, 2025 Raegan Ledezma MASTER DATA ANALYST, MASTER DATA ANALYST-C Attending Provider Active Start: March 14, 2025 End: March 14, 2025 Team Status: Inactive Member Role/Relationship Status Dates JESUS BENAVIDEZLER , MASTER DATA ANALYST-C Primary Care Provider Active Start: April 07, 2025 End: April 07, 2025 Raegan Ledezma MASTER DATA ANALYST, MASTER DATA ANALYST-C Attending Provider Active Start: April 07, 2025 End: April 07, 2025 Raegan Ledezma MASTER DATA ANALYST, MASTER DATA ANALYST-C Referring Provider Active Start: April 07, 2025 End: April 07, 2025 Team Status: Inactive Member Role/Relationship Status Dates JESUS LONDON , MASTER DATA ANALYST-C Primary Care Provider Active Start: April 07, 2025 End: April 10, 2025 Dr. Stefan Shultz MD Emergency Provider Active Start: April 07, 2025 End: April 10, 2025 Dr. Michelle Do MD Admit Provider Active St art: April 07, 2025 End: April 10, 2025 Dr. Michelle Do MD Other Provider Active St art: April 07, 2025 End: April 10, 2025 Dr. Ray Sanders MD Other Provider Active St art: April 07, 2025 End: April 10, 2025 Dr. Malcolm Hanson DO Attending Provider Active Start: April 07, 2025 End: April 10, 2025 Dr. Chuy Covarrubias MD Other Provider Active Sta rt: April 07, 2025 End: April 10, 2025 Team Status: Active Member Role/Relationship Status Dates JESUS CALLAHAN MASTER DATA ANALYST-C Primary Care Provider Active Start: April 07, 2025 Dr. Stefan Shultz MD Emergency Provider Active Start: April 07, 2025 Dr. Michelle Do MD Admit Provider Active St art: April 07, 2025 Dr. Michelle Do MD Other Provider Active St art: April 07, 2025 Dr. Ray Sanders MD Attending Provider Active Start: April 07, 2025 Dr. Ray Sanders MD Other Provider Active St art: April 07, 2025 Dr. Malcolm Hanson DO Referring Provider Active Start: April 07, 2025 Team Status: Active Member Role/Relationship Status Dates JESUS CALLAHAN [facility] Primary Care Provider Active Start: April 08, 2025 Dr. Stefan Shultz MD Emergency Provider Active Start: April 08, 2025 Dr. Michelle Do MD Admit Provider Active St art: April 08, 2025 Dr. Michelle Do MD Other Provider Active St art: April 08, 2025 Dr. Ray Sanders MD Attending Provider Active Start: April 08, 2025 Dr. Ray Sanders MD Other Provider Active St art: April 08, 2025 Team Status: Active Member Role/Relationship Status Dates JESUS CALLAHAN -C Primary Care Provider Active Start: April 08, 2025 Dr. Stefan Shultz MD Emergency Provider Active Start: April 08, 2025 Dr. Michelle Do MD Admit Provider Active St art: April 08, 2025 Dr. Michelle Do MD Other Provider Active St art: April 08, 2025 Dr. Ray Sanders MD Other Provider Active St art: April 08, 2025 Dr. Chuy Covarrubias MD Attending Provider Active Start: April 08, 2025 Dr. Chuy Covarrubias MD Other Provider Active Sta rt: April 08, 2025 Team Status: Active Member Role/Relationship Status Dates JESUS CALLAHAN NP-C Primary Care Provider Active Start: April 09, 2025 Dr. Stefan Shultz MD Emergency Provider Active Start: April 09, 2025 Dr. Michelle Do MD Admit Provider Active St art: April 09, 2025 Dr. Michelle Do MD Other Provider Active St art: April 09, 2025 Dr. Ray Sanders MD Attending Provider Active Start: April 09, 2025 Dr. Ray Sanders MD Other Provider Active St art: April 09, 2025 Dr. Chuy Covarrubias MD Other Provider Active Sta rt: April 09, 2025 Team Status: Active Member Role/Relationship Status Dates JESUS CALLAHAN NP-C Primary Care Provider Active Start: April 09, 2025 Dr. Stefan Shultz MD Emergency Provider Active Start: April 09, 2025 Dr. Michelle Do MD Admit Provider Active St art: April 09, 2025 Dr. Michelle Do MD Other Provider Active St art: April 09, 2025 Dr. Ray Sanders MD Other Provider Active St art: April 09, 2025 Dr. Chuy Covarrubias MD Attending Provider Active Start: April 09, 2025 Dr. Chuy Covarrubias MD Other Provider Active Sta rt: April 09, 2025 Team Status: Active Member Role/Relationship Status Dates JESUS CALLAHAN NP-Jonathan Primary Care Provider Active Start: April 10, 2025 Dr. Stefan Shultz MD Emergency Provider Active Start: April 10, 2025 Dr. Michelle Do MD Admit Provider Active St art: April 10, 2025 Dr. Michelle Do MD Other Provider Active St art: April 10, 2025 Dr. Ray Sanders MD Other Provider Active St art: April 10, 2025 Dr. Malcolm Hanson DO Attending Provider Active Start: April 10, 2025 Dr. Malcolm Hanson DO Other Provider Active Star t: April 10, 2025 Dr. Chuy Covarrubias MD Other Provider Active Sta rt: April 10, 2025 Team Status: Active Member Role/Relationship Status Dates JESUS LONDON , MASTER DATA ANALYST-C Primary Care Provider Active Start: April 10, 2025 Dr. Stefan Shultz MD Emergency Provider Active Start: April 10, 2025 Dr. Michelle Do MD Admit Provider Active St art: April 10, 2025 Dr. Michelle Do MD Other Provider Active St art: April 10, 2025 Dr. Ray Sanders MD Other Provider Active St art: April 10, 2025 Dr. Malcolm Hanson DO Other Provider Active Star t: April 10, 2025 Dr. Chuy Covarrubias MD Other Provider Active Sta rt: April 10, 2025 Padma Guerrero PA, PA-C Attending Provider Active Start: April 10, 2025 Team Status: Inactive Member Role/Relationship Status Dates JESUS CARMENETLER , MASTER DATA ANALYST-C Primary Care Provider Active Start: April 19, 2025 End: April 19, 2025 JESUS LONDON , MASTER DATA ANALYST-C Referring Provider Active Start: April 19, 2025 End: April 19, 2025 Raegan Ledezma MASTER DATA ANALYST, MASTER DATA ANALYST-C Attending Provider Active Start: April 19, 2025 End: April 19, 2025 Team Status: Inactive Member Role/Relationship Status Dates JESUS LONDON , MASTER DATA ANALYST-C Primary Care Provider Active Start: April 25, 2025 End: April 25, 2025 Raegan Ledezma MASTER DATA ANALYST, MASTER DATA ANALYST-C Attending Provider Active Start: April 25, 2025 End: April 25, 2025 Raegan Ledezma MASTER DATA ANALYST, MASTER DATA ANALYST-C Referring Provider Active Start: April 25, 2025 End: April 25, 2025 Team Status: Inactive Member Role/Relationship Status Dates JESUS CARMENETLER MASTER DATA ANALYST-C Primary Care Provider Active Start: May 01, 2025 End: May 01, 2025 Dr. Ayden Bosch MD Attending Provider Active S tart: May 01, 2025 End: May 01, 2025 Raegan Ledezma MASTER DATA ANALYST, MASTER DATA ANALYST-C Referring Provider Active Start: May 01, 2025 End: May 01, 2025 Team Status: Inactive Member Role/Relationship Status Dates JESUS LONDON , MASTER DATA ANALYST-C Primary Care Provider Active Start: May 29, 2025 End: May 29, 2025 JESUS LONDON , MASTER DATA ANALYST-C Referring Provider Active Start: May 29, 2025 End: May 29, 2025 Dr. Ayden Bosch MD Attending Provider Active S tart: May 29, 2025 End: May 29, 2025 Team Status: Inactive Member Role/Relationship Status Dates JESUS LONDON , MASTER DATA ANALYST-C Primary Care Provider Active Start: May 31, 2025 End: May 31, 2025 Dr. Ray Sanders MD Attending Provider Active Start: May 31, 2025 End: May 31, 2025 Dr. Ayden Bosch MD Referring Provider Active S tart: May 31, 2025 End: May 31, 2025 Team Status: Inactive Member Role/Relationship Status Dates JESUS LONDON , MASTER DATA ANALYST-C Primary Care Provider Active Start: June 05, 2025 End: June 05, 2025 Dr. Ray Sanders MD Attending Provider Active Start: June 05, 2025 End: June 05, 2025 Dr. Ray Sanders MD Referring Provider Active Start: June 05, 2025 End: June 05, 2025 Team Status: Active Member Role/Relationship Status Dates JESUS LONDON , MASTER DATA ANALYST-C Primary Care Provider Active Start: June 05, 2025 Dr. Ray Sanders MD Attending Provider Active Start: June 05, 2025 Dr. Ray Sanders MD Referring Provider Active Start: June 05, 2025 Dr. Ray Sanders MD Other Provider Active St art: June 05, 2025 Team Status: Inactive Member Role/Relationship Status Dates JESUS LONDON , MASTER DATA ANALYST-C Primary Care Provider Active Start: June 12, 2025 End: June 12, 2025 JESUS LONDON , MASTER DATA ANALYST-C Referring Provider Active Start: June 12, 2025 End: June 12, 2025 Camille Emanuel MASTER DATA ANALYST, MASTER DATA ANALYST-C Attending Provider Active Start: June 12, 2025 End: June 12, 2025 Team Status: Inactive Member Role/Relationship Status Dates JESUS LONDON , MASTER DATA ANALYST-C Primary Care Provider Active Start: June 14, 2025 End: June 14, 2025 JESUS LONDON , MASTER DATA ANALYST-C Referring Provider Active Start: June 14, 2025 End: June 14, 2025 Dr. Ayden Bosch MD Attending Provider Active S tart: June 14, 2025 End: June 14, 2025 Team Status: Active Member Role/Relationship Status Dates JESUS LONDON , MASTER DATA ANALYST-C Primary Care Provider Active Start: June 29, 2025 Dr. Ayden Bosch MD Attending Provider Active S tart: June 29, 2025 Dr. Ayden Bosch MD Referring Provider Active S tart: June 29, 2025 Team Status: Inactive Member Role/Relationship Status Dates JESUS LONDON , MASTER DATA ANALYST-C Primary Care Provider Active Start: June 29, 2025 End: June 29, 2025 JESUS LONDON , MASTER DATA ANALYST-C Referring Provider Active Start: June 29, 2025 End: June 29, 2025 Camille Emanuel MASTER DATA ANALYST, MASTER DATA ANALYST-C Attending Provider Active Start: June 29, 2025 End: June 29, 2025 Team Status: Inactive Member Role/Relationship Status Dates JESUS LONDON , MASTER DATA ANALYST-C Primary Care Provider Active Start: March 14, 2025 End: March 14, 2025 JESUS LONDON , MASTER DATA ANALYST-C Referring Provider Active Start: March 14, 2025 End: March 14, 2025 Raegan Ledezma MASTER DATA ANALYST, MASTER DATA ANALYST-C Attending Provider Active Start: March 14, 2025 End: March 14, 2025 Team Status: Inactive Member Role/Relationship Status Dates JESUS LONDON , MASTER DATA ANALYST-C Primary Care Provider Active Start: April 07, 2025 End: April 07, 2025 Raegan Ledezma MASTER DATA ANALYST, MASTER DATA ANALYST-C Attending Provider Active Start: April 07, 2025 End: April 07, 2025 Raegan Ledezma MASTER DATA ANALYST, MASTER DATA ANALYST-C Referring Provider Active Start: April 07, 2025 End: April 07, 2025 Team Status: Inactive Member Role/Relationship Status Dates JESUS LONDON , MASTER DATA ANALYST-C Primary Care Provider Active Start: April 07, 2025 End: April 10, 2025 Dr. Stefan Shultz MD Emergency Provider Active Start: April 07, 2025 End: April 10, 2025 Dr. Michelle Do MD Admit Provider Active St art: April 07, 2025 End: April 10, 2025 Dr. Michelle Do MD Other Provider Active St art: April 07, 2025 End: April 10, 2025 Dr. Ray Sanders MD Other Provider Active St art: April 07, 2025 End: April 10, 2025 Dr. Malcolm Hanson DO Attending Provider Active Start: April 07, 2025 End: April 10, 2025 Dr. Chuy Covarrubias MD Other Provider Active Sta rt: April 07, 2025 End: April 10, 2025 Team Status: Active Member Role/Relationship Status Dates JESUS CALLAHAN NP-C Primary Care Provider Active Start: April 07, 2025 Dr. Stefan Shultz MD Emergency Provider Active Start: April 07, 2025 Dr. Michelle Do MD Admit Provider Active St art: April 07, 2025 Dr. Michelle Do MD Other Provider Active St art: April 07, 2025 Dr. Ray Sanders MD Attending Provider Active Start: April 07, 2025 Dr. Ray Sanders MD Other Provider Active St art: April 07, 2025 Dr. Malcolm Hanson DO Referring Provider Active Start: April 07, 2025 Team Status: Active Member Role/Relationship Status Dates JESUS CALLAHAN NP-Jonathan Primary Care Provider Active Start: April 08, 2025 Dr. Stefan Shultz MD Emergency Provider Active Start: April 08, 2025 Dr. Michelle Do MD Admit Provider Active St art: April 08, 2025 Dr. Michelle Do MD Other Provider Active St art: April 08, 2025 Dr. Ray Sanders MD Attending Provider Active Start: April 08, 2025 Dr. Ray Sanders MD Other Provider Active St art: April 08, 2025 Team Status: Active Member Role/Relationship Status Dates JESUS CALLAHAN NP-C Primary Care Provider Active Start: April 08, 2025 Dr. Stefan Shultz MD Emergency Provider Active Start: April 08, 2025 Dr. Michelle Do MD Admit Provider Active St art: April 08, 2025 Dr. Michelle Do MD Other Provider Active St art: April 08, 2025 Dr. Ray Sanders MD Other Provider Active St art: April 08, 2025 Dr. Chuy Covarrubias MD Attending Provider Active Start: April 08, 2025 Dr. Chuy Covarrubias MD Other Provider Active Sta rt: April 08, 2025 Team Status: Active Member Role/Relationship Status Dates JESUS CALLAHAN NP-C Primary Care Provider Active Start: April 09, 2025 Dr. Stefan Shultz MD Emergency Provider Active Start: April 09, 2025 Dr. Michelle Do MD Admit Provider Active St art: April 09, 2025 Dr. Michelle Do MD Other Provider Active St art: April 09, 2025 Dr. Ray Sanders MD Attending Provider Active Start: April 09, 2025 Dr. Ray Sanders MD Other Provider Active St art: April 09, 2025 Dr. Chuy Covarrubias MD Other Provider Active Sta rt: April 09, 2025 Team Status: Active Member Role/Relationship Status Dates JESUS CALLAHAN NP-C Primary Care Provider Active Start: April 09, 2025 Dr. Stefan Shultz MD Emergency Provider Active Start: April 09, 2025 Dr. Michelle Do MD Admit Provider Active St art: April 09, 2025 Dr. Michelle Do MD Other Provider Active St art: April 09, 2025 Dr. Ray Sanders MD Other Provider Active St art: April 09, 2025 Dr. Chuy Covarrubias MD Attending Provider Active Start: April 09, 2025 Dr. Chuy Covarrubias MD Other Provider Active Sta rt: April 09, 2025 Team Status: Active Member Role/Relationship Status Dates FRIEDA KEARNEY Primary Care Provider Active Start: April 10, 2025 Dr. Stefan Shultz MD Emergency Provider Active Start: April 10, 2025 Dr. Michelle Do MD Admit Provider Active St art: April 10, 2025 Dr. Michelle Do MD Other Provider Active St art: April 10, 2025 Dr. Ray Sanders MD Other Provider Active St art: April 10, 2025 Dr. Malcolm Hanson DO Attending Provider Active Start: April 10, 2025 Dr. Malcolm Hanson DO Other Provider Active Star t: April 10, 2025 Dr. Chuy Covarrubias MD Other Provider Active Sta rt: April 10, 2025 Team Status: Active Member Role/Relationship Status Dates JESUS CALLAHAN NP-C Primary Care Provider Active Start: April 10, 2025 Dr. Stefan Shultz MD Emergency Provider Active Start: April 10, 2025 Dr. Michelle Do MD Admit Provider Active St art: April 10, 2025 Dr. Michelle Do MD Other Provider Active St art: April 10, 2025 Dr. Ray Sanders MD Other Provider Active St art: April 10, 2025 Dr. Malcolm Hanson DO Other Provider Active Star t: April 10, 2025 Dr. Chuy Covarrubias MD Other Provider Active Sta rt: April 10, 2025 Padma Guerrero PA, PA-C Attending Provider Active Start: April 10, 2025 Team Status: Inactive Member Role/Relationship Status Dates JESUS LONDON , MASTER DATA ANALYST-C Primary Care Provider Active Start: April 19, 2025 End: April 19, 2025 JESUS CALLAHAN , MASTER DATA ANALYST-C Referring Provider Active Start: April 19, 2025 End: April 19, 2025 Raegan Ledezma MASTER DATA ANALYST, MASTER DATA ANALYST-C Attending Provider Active Start: April 19, 2025 End: April 19, 2025 Team Status: Inactive Member Role/Relationship Status Dates JESUS CALLAHAN , MASTER DATA ANALYST-C Primary Care Provider Active Start: April 25, 2025 End: April 25, 2025 Raegan Ledezma MASTER DATA ANALYST, MASTER DATA ANALYST-C Attending Provider Active Start: April 25, 2025 End: April 25, 2025 Raegan Ledezma MASTER DATA ANALYST, MASTER DATA ANALYST-C Referring Provider Active Start: April 25, 2025 End: April 25, 2025 Team Status: Inactive Member Role/Relationship Status Dates JESUS LONDON , MASTER DATA ANALYST-C Primary Care Provider Active Start: May 01, 2025 End: May 01, 2025 Dr. Ayden Bosch MD Attending Provider Active S tart: May 01, 2025 End: May 01, 2025 Raegan Ledezma MASTER DATA ANALYST, MASTER DATA ANALYST-C Referring Provider Active Start: May 01, 2025 End: May 01, 2025 Team Status: Inactive Member Role/Relationship Status Dates JESUS LONDON , MASTER DATA ANALYST-C Primary Care Provider Active Start: May 29, 2025 End: May 29, 2025 JESUS LONDON , MASTER DATA ANALYST-C Referring Provider Active Start: May 29, 2025 End: May 29, 2025 Dr. Ayden Bosch MD Attending Provider Active S tart: May 29, 2025 End: May 29, 2025 Team Status: Inactive Member Role/Relationship Status Dates JESUS LONDON , MASTER DATA ANALYST-C Primary Care Provider Active Start: May 31, 2025 End: May 31, 2025 Dr. Ray Sanders MD Attending Provider Active Start: May 31, 2025 End: May 31, 2025 Dr. Ayden Bosch MD Referring Provider Active S tart: May 31, 2025 End: May 31, 2025 Team Status: Inactive Member Role/Relationship Status Dates JESUS LONDON , MASTER DATA ANALYST-C Primary Care Provider Active Start: June 05, 2025 End: June 05, 2025 Dr. Ray Sanders MD Attending Provider Active Start: June 05, 2025 End: June 05, 2025 Dr. Ray Sanders MD Referring Provider Active Start: June 05, 2025 End: June 05, 2025 Team Status: Active Member Role/Relationship Status Dates JESUS LONDON , MASTER DATA ANALYST-C Primary Care Provider Active Start: June 05, 2025 Dr. Ray Sanders MD Attending Provider Active Start: June 05, 2025 Dr. Ray Sanders MD Referring Provider Active Start: June 05, 2025 Dr. Ray Sanders MD Other Provider Active St art: June 05, 2025 Team Status: Inactive Member Role/Relationship Status Dates JESUS LONDON , MASTER DATA ANALYST-C Primary Care Provider Active Start: June 12, 2025 End: June 12, 2025 JESUS LONDON , MASTER DATA ANALYST-C Referring Provider Active Start: June 12, 2025 End: June 12, 2025 Camille Jenae MASTER DATA ANALYST, MASTER DATA ANALYST-C Attending Provider Active Start: June 12, 2025 End: June 12, 2025 Team Status: Inactive Member Role/Relationship Status Dates JESUS LONDON , MASTER DATA ANALYST-C Primary Care Provider Active Start: June 14, 2025 End: June 14, 2025 JESUS LONDON , MASTER DATA ANALYST-C Referring Provider Active Start: June 14, 2025 End: June 14, 2025 Dr. Ayden Bosch MD Attending Provider Active S tart: June 14, 2025 End: June 14, 2025 Team Status: Inactive Member Role/Relationship Status Dates JESUS LONDON , MASTER DATA ANALYST-C Primary Care Provider Active Start: June 29, 2025 End: June 29, 2025 JESUS LONDON , MASTER DATA ANALYST-C Referring Provider Active Start: June 29, 2025 End: June 29, 2025 Camille Emanuel MASTER DATA ANALYST, MASTER DATA ANALYST-C Attending Provider Active Start: June 29, 2025 End: June 29, 2025 Team Status: Active Member Role/Relationship Status Dates JESUS CALLAHAN , MASTER DATA ANALYST-C Primary Care Provider Active Start: July 05, 2025 Dr. Ayden Bosch MD Attending Provider Active S tart: July 05, 2025 Dr. Ayden Bosch MD Referring Provider Active S tart: July 05, 2025 Team Status: Inactive Member Role/Relationship Status Dates JESUS LONDON , MASTER DATA ANALYST-C Primary Care Provider Active Start: July 05, 2025 End: July 05, 2025 JESUS CALLAHAN , MASTER DATA ANALYST-C Referring Provider Active Start: July 05, 2025 End: July 05, 2025 Camille Emanuel MASTER DATA ANALYST, MASTER DATA ANALYST-C Attending Provider Active Start: July 05, 2025 End: July 05, 2025 Team Status: Inactive Member Role/Relationship Status Dates JESUS CALLAHAN , MASTER DATA ANALYST-C Primary Care Provider Active Start: April 07, 2025 End: April 07, 2025 Raegan Ledezma MASTER DATA ANALYST, MASTER DATA ANALYST-C Attending Provider Active Start: April 07, 2025 End: April 07, 2025 Raegan Ledezma MASTER DATA ANALYST, MASTER DATA ANALYST-C Referring Provider Active Start: April 07, 2025 End: April 07, 2025 Team Status: Inactive Member Role/Relationship Status Dates JESUS CARMENETLER , MASTER DATA ANALYST-C Primary Care Provider Active Start: April 07, 2025 End: April 10, 2025 Dr. Stefan Shultz MD Emergency Provider Active Start: April 07, 2025 End: April 10, 2025 Dr. Michelle Do MD Admit Provider Active St art: April 07, 2025 End: April 10, 2025 Dr. Michelle Do MD Other Provider Active St art: April 07, 2025 End: April 10, 2025 Dr. Ray Sanders MD Other Provider Active St art: April 07, 2025 End: April 10, 2025 Dr. Malcolm Hanson DO Attending Provider Active Start: April 07, 2025 End: April 10, 2025 Dr. Chuy Covarrubias MD Other Provider Active Sta rt: April 07, 2025 End: April 10, 2025 Team Status: Active Member Role/Relationship Status Dates FRIEDA KEARNEY Primary Care Provider Active Start: April 07, 2025 Dr. Stefan Shultz MD Emergency Provider Active Start: April 07, 2025 Dr. Michelle Do MD Admit Provider Active St art: April 07, 2025 Dr. Michelle Do MD Other Provider Active St art: April 07, 2025 Dr. Ray Sanders MD Attending Provider Active Start: April 07, 2025 Dr. Ray Sanders MD Other Provider Active St art: April 07, 2025 Dr. Malcolm Hanson DO Referring Provider Active Start: April 07, 2025 Team Status: Active Member Role/Relationship Status Dates FRIEDA KEARNEY Primary Care Provider Active Start: April 08, 2025 Dr. Stefan Shultz MD Emergency Provider Active Start: April 08, 2025 Dr. Michelle Do MD Admit Provider Active St art: April 08, 2025 Dr. Michelle Do MD Other Provider Active St art: April 08, 2025 Dr. Ray Sanders MD Attending Provider Active Start: April 08, 2025 Dr. Ray Sanders MD Other Provider Active St art: April 08, 2025 Team Status: Active Member Role/Relationship Status Dates FRIEDA KEARNEY Primary Care Provider Active Start: April 08, 2025 Dr. Stefan Shultz MD Emergency Provider Active Start: April 08, 2025 Dr. Michelle Do MD Admit Provider Active St art: April 08, 2025 Dr. Michelle Do MD Other Provider Active St art: April 08, 2025 Dr. Ray Sanders MD Other Provider Active St art: April 08, 2025 Dr. Chuy Covarrubias MD Attending Provider Active Start: April 08, 2025 Dr. Chuy Covarrubias MD Other Provider Active Sta rt: April 08, 2025 Team Status: Active Member Role/Relationship Status Dates FRIEDA KEARNEY Primary Care Provider Active Start: April 09, 2025 Dr. Stefan Shultz MD Emergency Provider Active Start: April 09, 2025 Dr. Michelle Do MD Admit Provider Active St art: April 09, 2025 Dr. Michelle Do MD Other Provider Active St art: April 09, 2025 Dr. Ray Sanders MD Attending Provider Active Start: April 09, 2025 Dr. Ray Sanders MD Other Provider Active St art: April 09, 2025 Dr. Chuy Covarrubias MD Other Provider Active Sta rt: April 09, 2025 Team Status: Active Member Role/Relationship Status Dates FRIEDA KEARNEY Primary Care Provider Active Start: April 09, 2025 Dr. Stefan Shultz MD Emergency Provider Active Start: April 09, 2025 Dr. Michelle Do MD Admit Provider Active St art: April 09, 2025 Dr. Michelle Do MD Other Provider Active St art: April 09, 2025 Dr. Ray Sanders MD Other Provider Active St art: April 09, 2025 Dr. Chuy Covarrubias MD Attending Provider Active Start: April 09, 2025 Dr. Chuy Covarrubias MD Other Provider Active Sta rt: April 09, 2025 Team Status: Active Member Role/Relationship Status Dates FRIEDA KEARNEY Primary Care Provider Active Start: April 10, 2025 Dr. Stefan Shultz MD Emergency Provider Active Start: April 10, 2025 Dr. Michelle Do MD Admit Provider Active St art: April 10, 2025 Dr. Michelle Do MD Other Provider Active St art: April 10, 2025 Dr. Ray Sanders MD Other Provider Active St art: April 10, 2025 Dr. Malcolm Hanson DO Attending Provider Active Start: April 10, 2025 Dr. Malcolm Hanson DO Other Provider Active Star t: April 10, 2025 Dr. Chuy Covarrubias MD Other Provider Active Sta rt: April 10, 2025 Team Status: Active Member Role/Relationship Status Dates FRIEDA KEARNEY Primary Care Provider Active Start: April 10, 2025 Dr. Stefan Shultz MD Emergency Provider Active Start: April 10, 2025 Dr. Michelle Do MD Admit Provider Active St art: April 10, 2025 Dr. Michelle Do MD Other Provider Active St art: April 10, 2025 Dr. Ray Sanders MD Other Provider Active St art: April 10, 2025 Dr. Malcolm Hanson DO Other Provider Active Star t: April 10, 2025 Dr. Chuy Covarrubias MD Other Provider Active Sta rt: April 10, 2025 Padma Guerrero PA, PA-C Attending Provider Active Start: April 10, 2025 Team Status: Inactive Member Role/Relationship Status Dates JESUS LONDON , MASTER DATA ANALYST-C Primary Care Provider Active Start: April 19, 2025 End: April 19, 2025 JESUS LONDON , MASTER DATA ANALYST-C Referring Provider Active Start: April 19, 2025 End: April 19, 2025 Raegan Ledezma MASTER DATA ANALYST, MASTER DATA ANALYST-C Attending Provider Active Start: April 19, 2025 End: April 19, 2025 Team Status: Inactive Member Role/Relationship Status Dates JESUS LONDON , MASTER DATA ANALYST-C Primary Care Provider Active Start: April 25, 2025 End: April 25, 2025 Raegan Ledezma MASTER DATA ANALYST, MASTER DATA ANALYST-C Attending Provider Active Start: April 25, 2025 End: April 25, 2025 Raegan Ledezma MASTER DATA ANALYST, MASTER DATA ANALYST-C Referring Provider Active Start: April 25, 2025 End: April 25, 2025 Team Status: Inactive Member Role/Relationship Status Dates JESUS LONDON , MASTER DATA ANALYST-C Primary Care Provider Active Start: May 01, 2025 End: May 01, 2025 Dr. Ayden Bosch MD Attending Provider Active S tart: May 01, 2025 End: May 01, 2025 Raegan Ledezma MASTER DATA ANALYST, MASTER DATA ANALYST-C Referring Provider Active Start: May 01, 2025 End: May 01, 2025 Team Status: Inactive Member Role/Relationship Status Dates JESUS LONDON , MASTER DATA ANALYST-C Primary Care Provider Active Start: May 29, 2025 End: May 29, 2025 JESUS LONDON , MASTER DATA ANALYST-C Referring Provider Active Start: May 29, 2025 End: May 29, 2025 Dr. Ayden Bosch MD Attending Provider Active S tart: May 29, 2025 End: May 29, 2025 Team Status: Inactive Member Role/Relationship Status Dates JESUS LONDON , MASTER DATA ANALYST-C Primary Care Provider Active Start: May 31, 2025 End: May 31, 2025 Dr. Ray Sanders MD Attending Provider Active Start: May 31, 2025 End: May 31, 2025 Dr. Ayden Bosch MD Referring Provider Active S tart: May 31, 2025 End: May 31, 2025 Team Status: Inactive Member Role/Relationship Status Dates JESUS LONDON , MASTER DATA ANALYST-C Primary Care Provider Active Start: June 05, 2025 End: June 05, 2025 Dr. Ray Sanders MD Attending Provider Active Start: June 05, 2025 End: June 05, 2025 Dr. Ray Sanders MD Referring Provider Active Start: June 05, 2025 End: June 05, 2025 Team Status: Active Member Role/Relationship Status Dates JESUS LONDON , MASTER DATA ANALYST-C Primary Care Provider Active Start: June 05, 2025 Dr. Ray Sanders MD Attending Provider Active Start: June 05, 2025 Dr. Ray Sanders MD Referring Provider Active Start: June 05, 2025 Dr. Ray Sanders MD Other Provider Active St art: June 05, 2025 Team Status: Inactive Member Role/Relationship Status Dates JESUS LONDON , MASTER DATA ANALYST-C Primary Care Provider Active Start: June 12, 2025 End: June 12, 2025 JESUS LONDON , MASTER DATA ANALYST-C Referring Provider Active Start: June 12, 2025 End: June 12, 2025 Camille Emanuel MASTER DATA ANALYST, MASTER DATA ANALYST-C Attending Provider Active Start: June 12, 2025 End: June 12, 2025 Team Status: Inactive Member Role/Relationship Status Dates JESUS LONDON , MASTER DATA ANALYST-C Primary Care Provider Active Start: June 14, 2025 End: June 14, 2025 JESUS LONDON , MASTER DATA ANALYST-C Referring Provider Active Start: June 14, 2025 End: June 14, 2025 Dr. Ayden Bosch MD Attending Provider Active S tart: June 14, 2025 End: June 14, 2025 Team Status: Inactive Member Role/Relationship Status Dates JESUS LONDON , MASTER DATA ANALYST-C Primary Care Provider Active Start: June 29, 2025 End: June 29, 2025 JESUS LONDON , MASTER DATA ANALYST-C Referring Provider Active Start: June 29, 2025 End: June 29, 2025 Camille Emanuel MASTER DATA ANALYST, MASTER DATA ANALYST-C Attending Provider Active Start: June 29, 2025 End: June 29, 2025 Team Status: Inactive Member Role/Relationship Status Dates JESUS LONDON , MASTER DATA ANALYST-C Primary Care Provider Active Start: July 05, 2025 End: July 05, 2025 JESUS LONDON , MASTER DATA ANALYST-C Referring Provider Active Start: July 05, 2025 End: July 05, 2025 Camille Emanuel MASTER DATA ANALYST, MASTER DATA ANALYST-C Attending Provider Active Start: July 05, 2025 End: July 05, 2025 Team Status: Inactive Member Role/Relationship Status Dates JESUS LONDON , MASTER DATA ANALYST-C Primary Care Provider Active Start: July 19, 2025 End: July 19, 2025 JESUS LONDON , MASTER DATA ANALYST-C Referring Provider Active Start: July 19, 2025 End: July 19, 2025 Camille Emanuel MASTER DATA ANALYST, MASTER DATA ANALYST-C Attending Provider Active Start: July 19, 2025 End: July 19, 2025 Team Status: Active Member Role/Relationship Status Dates JESUS LONDON , MASTER DATA ANALYST-C Primary Care Provider Active Start: July 19, 2025 Dr. Ayden Bosch MD Attending Provider Active S tart: July 19, 2025 Dr. Ayden Bosch MD Referring Provider Active S tart: July 19, 2025 Team Status: Active Member Role/Relationship Status Dates JESUS LONDON , MASTER DATA ANALYST-C Primary care physician Active Team Status: Inactive Member Role/Relationship Status Dates JESUS LONDON , MASTER DATA ANALYST-C Primary care physician Active Start: April 07, 2025 End: April 07, 2025 Raegan Ledezma MASTER DATA ANALYST, MASTER DATA ANALYST-C Attending physician Active Start: April 07, 2025 End: April 07, 2025 Raegan Ledezma MASTER DATA ANALYST, MASTER DATA ANALYST-C Referring Provider Active Start: April 07, 2025 End: April 07, 2025 Team Status: Inactive Member Role/Relationship Status Dates JESUS LONDON , MASTER DATA ANALYST-C Primary care physician Active Start: April 07, 2025 End: April 10, 2025 Dr. Stefan Shultz MD Emergency Department Physician Active Start: April 07, 2025 End: April 10, 2025 Dr. Michelle Do MD Admitting physician Active Start: April 07, 2025 End: April 10, 2025 Dr. Michelle Do MD Nurse Practitioner Active Start: April 07, 2025 End: April 10, 2025 Dr. Ray Sanders MD Nurse Practitioner Active Start: April 07, 2025 End: April 10, 2025 Dr. Malcolm Hanson DO Attending physician Active Start: April 07, 2025 End: April 10, 2025 Dr. Chuy Covarrubias MD Nurse Practitioner Active Start: April 07, 2025 End: April 10, 2025 Team Status: Active Member Role/Relationship Status Dates JESUS LONDON , MASTER DATA ANALYST-C Primary care physician Active Start: April 07, 2025 Dr. Stefan Shultz MD Emergency Department Physician Active Start: April 07, 2025 Dr. Michelle Do MD Admitting physician Active Start: April 07, 2025 Dr. Michelle Do MD Nurse Practitioner Active Start: April 07, 2025 Dr. Ray Sanders MD Attending physician Active Start: April 07, 2025 Dr. Ray Sanders MD Nurse Practitioner Active Start: April 07, 2025 Dr. Malcolm Hanson DO Referring Provider Active Start: April 07, 2025 Team Status: Active Member Role/Relationship Status Dates JESUS CALLAHAN , MASTER DATA ANALYST-C Primary care physician Active Start: April 08, 2025 Dr. Stefan Shultz MD Emergency Department Physician Active Start: April 08, 2025 Dr. Michelle Do MD Admitting physician Active Start: April 08, 2025 Dr. Michelle Do MD Nurse Practitioner Active Start: April 08, 2025 Dr. Ray Sanders MD Attending physician Active Start: April 08, 2025 Dr. Ray Sanders MD Nurse Practitioner Active Start: April 08, 2025 Team Status: Active Member Role/Relationship Status Dates JESUS CALLAHAN , MASTER DATA ANALYST-C Primary care physician Active Start: April 08, 2025 Dr. Stefan Shultz MD Emergency Department Physician Active Start: April 08, 2025 Dr. Michelle Do MD Admitting physician Active Start: April 08, 2025 Dr. Michelle Do MD Nurse Practitioner Active Start: April 08, 2025 Dr. Ray Sanders MD Nurse Practitioner Active Start: April 08, 2025 Dr. Chuy Covarrubias MD Attending physician Active Start: April 08, 2025 Dr. Chuy Covarrubias MD Nurse Practitioner Active Start: April 08, 2025 Team Status: Active Member Role/Relationship Status Dates JESUS CALLAHAN , MASTER DATA ANALYST-C Primary care physician Active Start: April 09, 2025 Dr. Stefan Shultz MD Emergency Department Physician Active Start: April 09, 2025 Dr. Michelle Do MD Admitting physician Active Start: April 09, 2025 Dr. Michelle Do MD Nurse Practitioner Active Start: April 09, 2025 Dr. Ray Sanders MD Attending physician Active Start: April 09, 2025 Dr. Ray Sanders MD Nurse Practitioner Active Start: April 09, 2025 Dr. Chuy Covarrubias MD Nurse Practitioner Active Start: April 09, 2025 Team Status: Active Member Role/Relationship Status Dates JESUS CALLAHAN MASTER DATA ANALYST-C Primary care physician Active Start: April 09, 2025 Dr. Stefan Shultz MD Emergency Department Physician Active Start: April 09, 2025 Dr. Michelle Do MD Admitting physician Active Start: April 09, 2025 Dr. Michelle Do MD Nurse Practitioner Active Start: April 09, 2025 Dr. Ray Sanders MD Nurse Practitioner Active Start: April 09, 2025 Dr. Chuy Covarrubias MD Attending physician Active Start: April 09, 2025 Dr. Chuy Covarrubias MD Nurse Practitioner Active Start: April 09, 2025 Team Status: Active Member Role/Relationship Status Dates JESUS CALLAHAN MASTER DATA ANALYST-C Primary care physician Active Start: April 10, 2025 Dr. Stefan Shultz MD Emergency Department Physician Active Start: April 10, 2025 Dr. Michelle Do MD Admitting physician Active Start: April 10, 2025 Dr. Michelle Do MD Nurse Practitioner Active Start: April 10, 2025 Dr. Ray Sanders MD Nurse Practitioner Active Start: April 10, 2025 Dr. Malcolm Hanson DO Attending physician Active Start: April 10, 2025 Dr. Malcolm Hanson DO Nurse Practitioner Active Start: April 10, 2025 Dr. Chuy Covarrubias MD Nurse Practitioner Active Start: April 10, 2025 Team Status: Active Member Role/Relationship Status Dates JESUS CALLAHAN , MASTER DATA ANALYST-C Primary care physician Active Start: April 10, 2025 Dr. Stefan Shultz MD Emergency Department Physician Active Start: April 10, 2025 Dr. Michelle Do MD Admitting physician Active Start: April 10, 2025 Dr. Michelle Do MD Nurse Practitioner Active Start: April 10, 2025 Dr. Ray Sanders MD Nurse Practitioner Active Start: April 10, 2025 Dr. Malcolm Hanson DO Nurse Practitioner Active Start: April 10, 2025 Dr. Chuy Covarrubias MD Nurse Practitioner Active Start: April 10, 2025 Padma Guerrero PA, PA-C Attending physician Active Start: April 10, 2025 Team Status: Inactive Member Role/Relationship Status Dates JESUS CALLAHAN , MASTER DATA ANALYST-C Primary care physician Active Start: April 19, 2025 End: April 19, 2025 JESUS CALLAHAN , MASTER DATA ANALYST-C Referring Provider Active Start: April 19, 2025 End: April 19, 2025 Raegan Ledezma MASTER DATA ANALYST, MASTER DATA ANALYST-C Attending physician Active Start: April 19, 2025 End: April 19, 2025 Team Status: Inactive Member Role/Relationship Status Dates JESUS CALLAHAN , MASTER DATA ANALYST-C Primary care physician Active Start: April 25, 2025 End: April 25, 2025 Raegan Ledezma MASTER DATA ANALYST, MASTER DATA ANALYST-C Attending physician Active Start: April 25, 2025 End: April 25, 2025 Raegan Ledezma MASTER DATA ANALYST, MASTER DATA ANALYST-C Referring Provider Active Start: April 25, 2025 End: April 25, 2025 Team Status: Inactive Member Role/Relationship Status Dates JESUS CALLAHAN MASTER DATA ANALYST-C Primary care physician Active Start: May 01, 2025 End: May 01, 2025 Dr. Ayden Bosch MD Attending physician Active Start: May 01, 2025 End: May 01, 2025 Raegan Ledezma MASTER DATA ANALYST, MASTER DATA ANALYST-C Referring Provider Active Start: May 01, 2025 End: May 01, 2025 Team Status: Inactive Member Role/Relationship Status Dates JESUS CALLAHAN MASTER DATA ANALYST-C Primary care physician Active Start: May 29, 2025 End: May 29, 2025 JESUS LONDON , MASTER DATA ANALYST-C Referring Provider Active Start: May 29, 2025 End: May 29, 2025 Dr. Ayden Bosch MD Attending physician Active Start: May 29, 2025 End: May 29, 2025 Team Status: Inactive Member Role/Relationship Status Dates JESUS LONDON , MASTER DATA ANALYST-C Primary care physician Active Start: May 31, 2025 End: May 31, 2025 Dr. Ray Sanders MD Attending physician Active Start: May 31, 2025 End: May 31, 2025 Dr. Ayden Bosch MD Referring Provider Active S tart: May 31, 2025 End: May 31, 2025 Team Status: Inactive Member Role/Relationship Status Dates JESUS LONDON , MASTER DATA ANALYST-C Primary care physician Active Start: June 05, 2025 End: June 05, 2025 Dr. Ray Sanders MD Attending physician Active Start: June 05, 2025 End: June 05, 2025 Dr. Ray Sanders MD Referring Provider Active Start: June 05, 2025 End: June 05, 2025 Team Status: Active Member Role/Relationship Status Dates JESUS LONDON , MASTER DATA ANALYST-C Primary care physician Active Start: June 05, 2025 Dr. Ray Sanders MD Attending physician Active Start: June 05, 2025 Dr. Ray Sanders MD Referring Provider Active Start: June 05, 2025 Dr. Ray Sanders MD Nurse Practitioner Active Start: June 05, 2025 Team Status: Inactive Member Role/Relationship Status Dates JESUS LONDON , MASTER DATA ANALYST-C Primary care physician Active Start: June 12, 2025 End: June 12, 2025 JESUS LONDON , MASTER DATA ANALYST-C Referring Provider Active Start: June 12, 2025 End: June 12, 2025 Camille Emanuel NP, MASTER DATA ANALYST-C Attending physician Active Start: June 12, 2025 End: June 12, 2025 Team Status: Inactive Member Role/Relationship Status Dates JESUS LONDON , MASTER DATA ANALYST-C Primary care physician Active Start: June 14, 2025 End: June 14, 2025 JESUS LONDON , MASTER DATA ANALYST-C Referring Provider Active Start: June 14, 2025 End: June 14, 2025 Dr. Ayden Bosch MD Attending physician Active Start: June 14, 2025 End: June 14, 2025 Team Status: Inactive Member Role/Relationship Status Dates JESUS LONDON , MASTER DATA ANALYST-C Primary care physician Active Start: June 29, 2025 End: June 29, 2025 JESUS LONDON , MASTER DATA ANALYST-C Referring Provider Active Start: June 29, 2025 End: June 29, 2025 Camille Emanuel NP, MASTER DATA ANALYST-C Attending physician Active Start: June 29, 2025 End: June 29, 2025 Team Status: Inactive Member Role/Relationship Status Dates JESUS CALLAHAN MASTER DATA ANALYST-C Primary care physician Active Start: July 05, 2025 End: July 05, 2025 JESUS CALLAHAN MASTER DATA ANALYST-C Referring Provider Active Start: July 05, 2025 End: July 05, 2025 Camille Emanuel NP, MASTER DATA ANALYST-C Attending physician Active Start: July 05, 2025 End: July 05, 2025 Team Status: Inactive Member Role/Relationship Status Dates JESUS CALLAHAN MASTER DATA ANALYST-C Primary care physician Active Start: July 19, 2025 End: July 19, 2025 JESUS CALLAHAN , MASTER DATA ANALYST-C Referring Provider Active Start: July 19, 2025 End: July 19, 2025 Camille Emanuel NP, MASTER DATA ANALYST-C Attending physician Active Start: July 19, 2025 End: July 19, 2025 Team Status: Active Member Role/Relationship Status Dates JESUS CALLAHAN MASTER DATA ANALYST-C Primary care physician Active Start: July 26, 2025 Dr. Ayden Bosch MD Attending physician Active Start: July 26, 2025 Dr. Ayden Bosch MD Referring Provider Active S tart: July 26, 2025 Team Status: Inactive Member Role/Relationship Status Dates JESUS CALLAHAN MASTER DATA ANALYST-C Primary care physician Active Start: July 26, 2025 End: July 26, 2025 JESUS CALLAHAN MASTER DATA ANALYST-C Referring Provider Active Start: July 26, 2025 End: July 26, 2025 Dr. Ayden Bosch MD Attending physician Active Start: July 26, 2025 End: July 26, 2025 Goals (unrecognized section and content) Goals may be documented in a n alternate section (unrecognized sect ion and content) No Status Records FoundNo Status Records FoundNo Status Records FoundNo Status Records Found INFORMATION SOURCE (unrecogn ized section and content) DATE CREATED AUTHOR 06/22/2024 [facility] ([place]) DATE CREATED AUTHOR AUTHOR'S ORGANIZ ATION 04/17/2025 [facility] DATE CREATED AUTHOR AUTHOR'S ORGANIZ ATION 05/17/2025 [facility] DATE CREATED AUTHOR AUTHOR'S LEELEE ATION 07/29/2025 [facility] FOR RECORDS PERTAINING TO PATIENTS WHO ARE [...] BE BASED ON THE PRIMARY CLINICAL RECORDS. [employer] provides no warranty or guarantee of the accuracy or completeness of information in this document.
--- NOTE | 2025-07-30 17:06 | EX.ED.DYSGE1 ---
HPI History of Present Illness Chief Complaint: Headache Informant: patient Narrative Narrative: Patient is a 70-year-old male with history of carotid artery stenosis, COPD, lung cancer?stage IV non-small cell lung cancer adenocarcinoma type (currently on palliative chemotherapy with Keytruda, carboplatin and paclitaxel (began on 06/14/2025) presenting with indigestion/chest discomfort as well as headache. Patient states this all started yesterday. States he developed a throbbing headache that began rather suddenly and then worsened. Denies any associated photophobia. 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 Denies any head trauma. Is not on any blood thinners. He also notes yesterday he developed an indigestion-like chest pain in the center of his chest. Denies any radiation. States it is burning in nature. She has been relatively constant. Tried Nexium with no help. Some chronic cough but attributes that to his chemotherapy denies any change in this. Denies any swelling of his legs. Denies history of DVT or PE. Did take a Tylenol prior to arrival with no help with his symptoms. Denies any associate abdominal pain, nausea or vomiting. Came in for further evaluation. States has never had chest discomfort like this before. [facility] Medical History Constipation Drug induced neutropenia Encounter for education Wears glasses Wears dentures Cancer Shortness of breath on exertion Leg cramps Blackout Hypertension History of echocardiogram Mediastinal lymphadenopathy BPH without urinary obstruction COPD (chronic obstructive pulmonary disease) Stenosis of right internal carotid artery Chronic alcohol abuse Hypokalemia Orthostatic hypotension Syncope and collapse Hyponatremia Vision loss of left eye Smoker Mass of left lung Hypertension Pulmonary nodules Nicotine dependence, cigarettes, uncomplicated Home Medications ?Medication ?Instructions ?Recorded ?Last Taken ?Type tamsulosin 0.4 mg capsule 0.4 mg PO QHS 12/29/23 06/05/25 History albuterol sulfate 90 mcg/actuation 1 puff inhalation Q4H PRN 12/09/24 06/04/25 History aerosol inhaler hydroxyzine HCl 50 mg tablet 50 mg PO QHS 12/26/24 06/04/25 History aspirin 81 mg tablet,delayed 81 mg PO DAILY 04/07/25 06/05/25 History release (Adult Low Dose Aspirin) glycopyrrolate 9 mcg-formoterol 2 puff inhalation Q12H 04/07/25 06/04/25 History 4.8 mcg HFA aerosol inhaler (Bevespi Aerosphere) polymyxin B sulfate 10,000 1 drp ophthalmic (eye) DAILY 04/19/25 06/04/25 History unit-trimethoprim 1 mg/mL eye drops oxycodone 5 mg tablet 5 mg PO Q8H PRN pain 3 days #7 tabs 06/05/25 Unknown Rx Keytruda 200 mg IV Q21D #8 mL 06/12/25 Unknown Rx folic acid 1 mg tablet 1 mg PO QDAY #90 tabs 06/12/25 Unknown Rx lidocaine-prilocaine 2.5 %-2.5 % 1 applic topical ONCE PRN port 06/12/25 Unknown Rx topical cream cream 30 days #30 grams ondansetron 8 mg disintegrating 8 mg PO Q8H PRN nausea and 06/12/25 Unknown Rx tablet vomiting #30 tabs atorvastatin 40 mg tablet 40 mg PO QDAY 06/29/25 Unknown History dexamethasone 4 mg tablet 4 mg PO .COMPLEX #24 tabs 07/05/25 Unknown Rx Allergy/AdvReac Type Severity Reaction Status Date / Time hydrochlorothiazide AdvReac hyponatremi Verified 07/30/25 16:05 a Family History Father Cancer Mother Diabetes Surgical History History of lung biopsy History of colonoscopy H/O vasectomy Social History household members: family housing: house current occupational status: retired Smoking Status: Current every day smoker tobacco type: cigarettes alcohol intake: current alcohol intake frequency: 3 or more drinks per day Alcohol type: beer details: up to 12 beers daily substance use type: does not use caffeine: Yes ROS ROS ED Constitutional Constitutional ED: Denies chills or fever(s) Eyes Eyes: Reports other Details: 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 Denies any photophobia ENT ENT ED: Reports other Details: Denies phonophobia ; Denies ear pain, rhinorrhea or sore throat Cardiovascular Cardiovascular: Reports chest pain; Denies palpitations or racing heartbeat Respiratory/Chest Respiratory/Chest: Reports cough, dyspnea and other Details: Chronic cough and shortness of breath, denies any acute change in this ; Denies sputum Gastrointestinal Gastrointestinal: Reports constipation; Denies abdominal pain, melena, nausea or vomiting Musculoskeletal Musculoskeletal: Denies arthralgias or myalgias Integumentary Denies rash Neurologic Neurologic: Reports headache(s); Denies paresthesias or weakness Psychiatric Psychiatric: Denies anxiety Hematologic/Lymphatic Hematologic/Lymphatic: Denies easy bleeding or easy bruising EXAM Physical Exam Const Vital Signs: 07/30/25 16:05 07/30/25 16:55 Temperature 97.8 F Temperature Source Temporal Pulse Rate 90 Respiratory Rate 18 Blood Pressure 105/91 H Blood Pressure Mean 95 Pulse Ox 93 92 Oxygen Delivery Method Room Air Room Air Positive well nourished and well developed General Appearance ED: well developed and NAD HEENT Reports TM's clear and moist mucous membranes HEENT Narrative: Head normocephalic atraumatic. 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) Tympanic Membrane ED: Yes TM's clear Eyes PERRL and EOMs intact bilaterally Neck supple Chest Wall inspection of chest normal and palpation of chest normal Chest Narrative: No chest wall crepitus Resp normal respiratory effort Resp Narrative: Significantly diminished breath sounds on the left base Effort and Inspection: Negative for retractions or pain with movement Auscultation: Negative for wheezes Cardio regular rhythm and no murmurs Rate: tachycardic GI normal to inspection, nondistended, normoactive bowel sounds and non-tender Palpation: soft; Negative for tender or guarding Extremity normal to inspection General Extremety ED: Negative for edema General Extremity: Negative for edema Neuro oriented x3 Neuro Narrative: Facial droop on the left with delayed blinking?chronic for patient. No other weakness or paresthesias appreciated. Sensorium / Orientation: alert Motor Exam: strength 5/5 throughout; Negative for general weakness Psych mental status grossly normal Skin no rashes or lesions noted and no wounds MDM MDM MDM Narrative Medical decision making narrative: Patient evaluated for throbbing headache as well as chest pain versus indigestion. Differential includes pulmonary emboli, pneumothorax, ACS, arrhythmia, pneumonia, viral syndrome/myocarditis, gastritis, pancreatitis and biliary disease. For the headache differential includes tension headache, space-occupying lesion, intracranial hemorrhage. Workup including CTA of the chest, EKG, cardiac enzymes, belly labs, CT of the brain Noncon and CT abdomen pelvis for further evaluation as he also reports constipation. EKG shows significant ST elevations in V2 through V4 with slight ST depressions in the inferior leads as well as atrial fibrillation with rapid ventricular response. All of these changes are acute. Due to the degree of ST elevation STEMI alert is called. Case discussed with cardiology, Dr. Good. I will plan to take patient to the Distribution System Operator. Patient bolused and started on amiodarone drip as he has soft blood pressure for further for rate control. Is loaded with heparin and Brilinta as well as aspirin as well. He does have a significant leukocytosis of 81.7. Will contact oncology about this. Hemoglobin is near his baseline at 11.4. Case is discussed with hospitalist, Dr. Tovar for admission Lab Data Labs: Laboratory Results - last 24 hr 07/30/25 17:05 WBC 81.7 H* RBC 3.48 L Hgb 11.4 L Hct 31.2 L MCV 89.7 MCH 32.8 H MCHC 36.5 H RDW Std Deviation 50.3 H RDW Coeff of [place] 15.5 H Plt Count 240 MPV 9.4 Neut % (Auto) Not Reportable Absolute Neuts (auto) 73.5 H Absolute Lymphs (auto) 2.45 Total Counted 100 Neutrophils % (Manual) 90 H Band Neutrophils % 2 Lymphocytes % (Manual) 3 L Monocytes % (Manual) 1 Metamyelocytes % 4 H Diff Path Review May foll Platelet Estimate ADEQUATE RBC Morphology NORM C+C PT 15.4 H INR 1.2 APTT 40.4 H Sodium 127 L Potassium 3.5 Chloride 92 L Carbon Dioxide 22.8 Anion Gap 13 BUN 13 Creatinine 0.72 Estim Creat Clear Calc 60.20 Est GFR (MDRD) Non-Af 98 BUN/Creatinine Ratio 17.7 Glucose 137 H Calcium 8.7 Magnesium 1.8 Total Bilirubin 0.54 Direct Bilirubin 0.28 AST 56 H ALT 27 Alkaline Phosphatase 233 H Troponin T High Sens 185 H* NT pro BNP II 5135 H Total Protein 6.1 Albumin 3.3 L Globulin 2.8 Radiography Chest X-Ray - ED: Read by ED Physician, Read by Radiologist and - (Interstitial lung disease) Diagnostic Testing: Clinical Impression(s) from Imaging Studies Chest X-Ray 07/30/25 17:12 IMPRESSION: No interval change Reading Location: [facility] Rhythm Strip Rhythm Strip: A-fib Rate: 149 Ectopy: None EKG Initial EKG: Attestation: I personally reviewed and interpreted this EKG as follows: Interpretation: Atrial Fibrillation Comments: Atrial fibrillation with RVR at a rate of [address] elevations in V2 through V4 with some subtle ST depressions in inferior leads consistent with STEMI Normal intervals Atrial fibrillation and ST elevations are new compared to prior EKG Critical Care Time Critical Care Time: Yes Critical care time (excluding procedures): 30-74 minutes (30), Discussing w/Patient &/or Family/Regional Marketing Director, Discussing w/Consultants, Arranging Admission or Transfer and Performing Direct Patient Care at Bedside Discharge Plan Dx/Rx/DC Orders Clinical Impression: STEMI (ST elevation myocardial infarction), Atrial fibrillation with RVR, Leucocytosis, 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
--- NOTE | 2025-07-30 17:12 | RAD_ITS ---
PROCEDURE: CHEST 1 VIEW (PORTABLE) 07/30/2025 REASON FOR EXAM: CHEST PAIN TECHNIQUE: Frontal view of the chest. FINDINGS: Mild fibrotic changes bilaterally. More prominent in the upper lung zones. Central venous port on the left. RAD/Chest 1 View (Portable) IMPRESSION: No interval change Reading Location: [facility]
[2025-07-30 17:13] LABS: Hematocrit 31.2 % (40-54); Hemoglobin 11.4 g/dL (13.0-16.5); Mean Corp Hgb Conc 36.5 g/dL (32-36); Mean Corpuscular Volume 89.7 fL (80-94); Mean Platelet Vol. 9.4 fl (6.2-12.0); POSITIVE COUNT YES; POSITIVE DIFFERENTIAL YES; POSITIVE MORPHOLOGY YES; Platelet Count 240 K/mm3 (150-450); RBC Distribution Width CV 15.5 % (11.6-14.6); RBC Distribution Width SD 50.3 fl (35.1-43.9); Red Blood Count 3.48 M/mm3 (4.6-6.2); White Blood Count 81.7 K/mm3 (4.4-11.0)
[2025-07-30] MEDS: Amiodarone 300 MG in Dextrose 5%-Water (100mL Bag) 100 ML 600 MG IV BOLUS (17:20)
[2025-07-30] MEDS: TICAGRELOR 90 MG TABLET 180 MG PO (17:20)
[2025-07-30] MEDS: Heparin Injection (Vial) 5,000 UNIT/ML VIAL 4000 UNIT IV (17:20)
--- NOTE | 2025-07-30 17:24 | PCM.HP.STD ---
HPI - General General Date of Admission: 07/30/25 Date of Service: 07/30/25 Chief Complaint: Chest discomfort HPI Narrative PATRICK ANDRES, is a 70 M who presents who presented with chest discomfort. Patient has significant past medical history including stage IV lung CA currently being treated as outpatient, COPD history of carotid artery stenosis who presented with chest discomfort. Per patient symptoms started a day prior to coming in. The discomfort was located in the retrosternal region for which she described as heartburn. Denied any radiation of the pain. No associated discomfort with any activity. Patient pain was constant. He also did complain of headache. Denied any nausea no vomiting. Patient elected to present to the ED in view of the persistent nature of his symptoms EKG obtained did show significant ST segment elevation in leads V2 to V4. STEMI alert was subsequently called. Patient was also noted to be in A-fib with rapid ventricular response patient was started on amiodarone drip as well as heparin prior to patient being taken to the Car Se[facility]. [facility] Medical History Constipation Drug induced neutropenia Encounter for education Wears glasses Wears dentures Cancer Shortness of breath on exertion Leg cramps Blackout Hypertension History of echocardiogram Mediastinal lymphadenopathy BPH without urinary obstruction COPD (chronic obstructive pulmonary disease) Stenosis of right internal carotid artery Chronic alcohol abuse Hypokalemia Orthostatic hypotension Syncope and collapse Hyponatremia Vision loss of left eye Smoker Mass of left lung Hypertension Pulmonary nodules Nicotine dependence, cigarettes, uncomplicated Home Medications ?Medication ?Instructions ?Recorded ?Last Taken ?Type tamsulosin 0.4 mg capsule 0.4 mg PO QHS 12/29/23 06/05/25 History albuterol sulfate 90 mcg/actuation 1 puff inhalation Q4H PRN 12/09/24 06/04/25 History aerosol inhaler hydroxyzine HCl 50 mg tablet 50 mg PO QHS 12/26/24 06/04/25 History aspirin 81 mg tablet,delayed 81 mg PO DAILY 04/07/25 06/05/25 History release (Adult Low Dose Aspirin) glycopyrrolate 9 mcg-formoterol 2 puff inhalation Q12H 04/07/25 06/04/25 History 4.8 mcg HFA aerosol inhaler (Bevespi Aerosphere) polymyxin B sulfate 10,000 1 drp ophthalmic (eye) DAILY 04/19/25 06/04/25 History unit-trimethoprim 1 mg/mL eye drops oxycodone 5 mg tablet 5 mg PO Q8H PRN pain 3 days #7 tabs 06/05/25 Unknown Rx Keytruda 200 mg IV Q21D #8 mL 06/12/25 Unknown Rx folic acid 1 mg tablet 1 mg PO QDAY #90 tabs 06/12/25 Unknown Rx lidocaine-prilocaine 2.5 %-2.5 % 1 applic topical ONCE PRN port 06/12/25 Unknown Rx topical cream cream 30 days #30 grams ondansetron 8 mg disintegrating 8 mg PO Q8H PRN nausea and 06/12/25 Unknown Rx tablet vomiting #30 tabs atorvastatin 40 mg tablet 40 mg PO QDAY 06/29/25 Unknown History dexamethasone 4 mg tablet 4 mg PO .COMPLEX #24 tabs 07/05/25 Unknown Rx Allergy/AdvReac Type Severity Reaction Status Date / Time hydrochlorothiazide AdvReac hyponatremi Verified 07/30/25 16:05 a Family History Father Cancer Mother Diabetes Surgical History History of lung biopsy History of colonoscopy H/O vasectomy Social History household members: family housing: house current occupational status: retired Smoking Status: Current every day smoker tobacco type: cigarettes alcohol intake: current alcohol intake frequency: 3 or more drinks per day Alcohol type: beer details: up to 12 beers daily substance use type: does not use caffeine: Yes ROS ROS Narrative GENERAL: denies fever, chills, night sweats, HEENT: denies headache, sinus congestion, RESPIRATORY: denies cough, sputum production, CARDIAC: chest pain, GASTROINTESTINAL: denies abdominal pain, nausea, vomiting, melena, GENITOURINARY: denies dysuria, urgency, frequency, heamaturia EXTREMITY: denies swelling MUSCULOSKELETAL: denies current joint pain or tenderness NEUROLOGIC: denies focal numbness, weakness, tingling HEMATOLOGIC: denies easy bruising and/or hemorrhage INTEGUMENT: denies rashes PSYCHIATRIC: denies suicidal or homicidal ideation Vital Signs Vital Signs Vital Signs: 07/30/25 16:05 Temperature 97.8 F Temperature Source Temporal Pulse Rate 90 Respiratory Rate 18 Blood Pressure 105/91 H Blood Pressure Mean 95 Pulse Ox 93 Oxygen Delivery Method Room Air Weight Weight: 49.532 kg Body Mass Index (BMI) 18.7 Physical Exam Narrative GENERAL: Cachectic looking HEENT: Atraumatic; normocephalic EYES; Anicteric, Normal Conjunctiva NECK; supple, normal thyroid, RESPIRATORY: Diminished to auscultation CARDIOVASCULAR: Regular S1 S2, GI: soft, normoactive bowel sounds, : No Renal angle tenderness; EXTREMITIES: No edema, no clubbing, MUSCULOSKELETAL: no muscle wasting NEURO: Awake; no lateralizing signs. SKIN: No Rash PSYCH; Flat affect Results Lab / Micro Data 07/30/25 17:05 07/30/25 17:05 Assessment & Plan Assessment/Plan (1) STEMI (ST elevation myocardial infarction): (2) Atrial fibrillation with RVR: (3) Leucocytosis: PLAN: Plan Patient is a 70-year-old gentleman who presented with chest discomfort EKG demonstrated ST segment elevation MD. Patient was also noted to be in A-fib with RVR 1. Acute ST segment elevation MD ? Patient treatment initiated with heparin aspirin with consultation placed to cardiology plan is for patient to undergo left heart catheterization with intervention if warranted 2. New onset A-fib with RVR ? Patient was started on heparin drip as well as amiodarone prior to patient undergoing his cardiac catheterization. As part of his workup 2D echo and TSH ordered 3. Stage IV lung CA ? Patient has known non-small cell lung cancer?adenocarcinoma involving the left lower lobe with mets to the contralateral lung as well as lymph nodes. Patient currently on palliative carboplatin Keytruda and paclitaxel. Last treatment was on 07/26/2025. Patient is followed by Dr Bosch with oncology 4. Mild leukocytosis Diagnosis secondary to patient having received Neulasta as outpatient. Monitoring with daily CBC with differential 5. COPD ? Currently not in exacerbation Arleth treated as needed 6. Tobacco dependence ? Counseled on cessation, offered nicotine patch for tobacco cravings 7. BPH with lower urinary obstructive symptoms - Patient treated with tamsulosin 8. Dyslipidemia ?Patient is on statin therapy, continued at home dose 9. History of carotid artery disease ? Patient is on aspirin 10. Severe protein calorie malnutrition ? As evidenced by muscle wasting weight loss and decreased energy level consult placed dietitian 11. Hyponatremia ? 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 DVT prophylaxis ? Patient is on systemic anticoagulation with heparin Time spent in the patient's overall evaluation,decision-making process, review of diagnostic data, adjustment of management, discussion with other providers, nursing nursing and ancillary staff involved in patient's care documentation, 75 Minutes Advance planning; did discuss with the patient regarding advanced directives as well as CODE STATUS. Did explain the various scenarios involved ( FULL CODE, DNR CCA, DNR CCA with no intubation, and DNR CC and what each meant) patient elected remain full code with CPR and intubation. Patient stated that his sister is his POA she could be contacted if needed. Order was placed. Time spent on discussion 16 minutes. Charges/Coding Multi Select Codes Visit Charges Visit Charges: 56447 Init Hosp Hospitalists' Procedures Procedures: 56012 Advncd Care Plan 30 Min
[2025-07-30 17:28] LABS: Differential Indicated MANUAL DIFF
[2025-07-30 17:36] LABS: Neutrophil-Band 2 % (0-5); Neutrophil-Segmented 90 % (47-70); Total Cells Counted 100 (MANUAL DIFF)
[2025-07-30] MEDS: 0.9% Normal Saline (1000mL) 1,000 ML 150 ML IV ×2 (17:36→19:57)
[2025-07-30 17:39] LABS: Red Cell Morphology NORM C+C NORMAL (NORM C&C)
--- NOTE | 2025-07-30 17:41 | EKG12_ITS ---
Test Reason : post cath Blood Pressure : */* mmHG Vent. Rate : 108 BPM Atrial Rate : * BPM P-R Int : * ms QRS Dur : 94 ms QT Int : 372 ms P-R-T Axes : * 90 101 degrees QTcB Int : 498 ms Atrial fibrillation with rapid ventricular response Rightward axis Anteroseptal infarct , age undetermined T wave abnormality, consider lateral ischemia Abnormal ECG No previous ECGs available Confirmed by AYLEEN BILLS MD ([id number]), videotape editor BROOKE ESPARZA ([id number]) on 07/31/2025 10:33:30 AM Referred By: Nahomy Good Confirmed By: AYLEEN BILLS MD
[2025-07-30 17:45] LABS: AST(SGOT) 56 U/L (<=37); Alanine Aminotransfer ALT/SGPT 27 U/L (<=46); Albumin, Serum 3.3 g/dL (3.4-4.8); Alkaline Phosphatase 233 U/L (40-129); Anion Gap 13 (5-15); BUN 13 mg/dL (4-19); BUN/Creat Ratio 17.7 RATIO (10-20); Bilirubin, Direct 0.28 mg/dL (0.00-0.30); Calcium,Total 8.7 mg/dL (7.6-11.0); Carbon Dioxide 22.8 mmol/L (21.0-32.0); Chloride 92 mmol/L (98-108); Estimated Creatinine Clearance 60.20 ml/min (50-250); Globulin 2.8 g/dL (2.2-4.2); Glucose 137 mg/dL (70-99); Magnesium 1.8 mg/dL (1.5-2.2); Potassium 3.5 mmol/L (3.3-5.1)
[2025-07-30] MEDS: Amiodarone 360 MG in Dextrose 5% Viaflo Bag 192.8 ML 16.7 MG CONT INF ×2 (17:52→23:46)
[2025-07-30 17:54] LABS: Partial Thromboplast Time 40.4 Seconds (24.1-36.2); Prothrombin Time (Protime)PT. 15.4 SECONDS (11.7-14.9)
--- NOTE | 2025-07-30 17:55 | CM.ED ---
Social Work Date of referral: 07/30/25 Reason for referral: STEMI alert Per charge nurse request, health care social worker called Honey, patient's sister who had just left and requested calls with any updates. explosives worker provided update and Honey stated she will be on her way back to the hospital. (17:15) Office Professional met with patient and patient's sister, Honey. Both stated they are doing ok and denied any current needs. Honey stated she has another brother who is also on his way in to the hospital. (17:41) Linen Grader ready alert: explosives worker walked Honey to the director of cath lab behind patient and got her settled in the waiting area. Honey denied any other needs at this time. (17:55) Nu Wood, COMPUTER TRAINING SPECIALIST, BUNDLE HELPER
[2025-07-30 17:56] LABS: Troponin T High Sensitivity 185 ng/L (<=22)
--- OUTSIDE RECORDS SUMMARY | 2025-07-30 17:58 | XMS RPT_ITS | CCD ---
Author Organization [facility] Care Team Providers Care Paper Cutter Name Role Phone [place] NAIL PROFESSIONAL - MASTER MACHINIST, WENDY Galan Primary Care Phys ician [place] NAIL PROFESSIONAL-ROSA, JESSU Primary Care Physician Care Physician, No Primary Primary Care Provider Unavailable Care Physician, No Primary Referring Provider Un available Dr. Pierre Catalan Attending Provider FRIEDA CALLAHAN JESUS Primary Care Provider Dr. Pierre Catalan Referring Provider Dr. Pierre Catalan Other Provider FRIEDA Chavez [...] CALLAHAN JESUS Primary Care Provider Dr. Pierre Catlaan Referring Provider [phone] Dr. Pierre Catalan Other Provider Kathy, WEIGHER AND CRUSHER-C Sharyn Mercedes Attending Provider Dr. James Lewis Emergency Provider Dr. Emma Wilson Attending Provider Dr. Emma Wilson Admit Provider Dr. Emma Wilson Referring Provider Dr. Emma Wilson Other Provider Dr. Caden Lockwood Attending Provider Dr. Caden Lockwood Other Provider Dr. Caden Lockwood Referring Provider Dr. Justin Farah Attending Provider L[place] NAIL PROFESSIONAL-MASTER MACHINIST, JESUS Attending Unavai lable [place] NAIL PROFESSIONAL-MASTER MACHINIST, JESUS Primary Care Unavai lable [place] NAIL PROFESSIONAL-MASTER MACHINIST, JESUS Attending Unavai lable [place] NAIL PROFESSIONAL-MASTER MACHINIST, JESUS Primary Care Unavai lable [place] NAIL PROFESSIONAL-MASTER MACHINIST, JESUS Attending Unavai lable [place] NAIL PROFESSIONAL-MASTER MACHINIST, JESUS Primary Care Unavai lable [place] NAIL PROFESSIONAL-MASTER MACHINIST, JESUS Attending Unavai lable [place] NAIL PROFESSIONAL-MASTER MACHINIST, JESUS Primary Care Unavai lable [place] WEIGHER AND CRUSHER-C, JESUS Primary Care Provider [phone] Dr. Malcolm Christy DO Emergency Provider Dr. Goldy Patino DO Admit Provider Unavail able de Dr. Goldy Law DO Referring Provider Unav ailable de Dr. Goldy Law DO Other Provider Unavail able Dr. Janak Ulloa MD Attending Provider Dr. Janak Ulloa MD Other Provider Dr. Pierre Catalan DO Attending Provider Dr. Malcolm Torres MD Attending Provider Dr. Freddy Mayen MD Attending Provider L[place]ON WEIGHER AND CRUSHER-C, JESUS Referring Provider Radha PA, Marjorie Attending Provider [phone] Radha PA, Marjorie Referring Provider Ledezma WEIGHER AND CRUSHER-C, Raegan Attending Provider Ledezma WEIGHER AND CRUSHER-C, Raegan Referring Provider L[place]ON WEIGHER AND CRUSHER-C, JESUS Primary Care Provider Radha PA, Marjorie Attending Provider [phone] Radha PA, Marjorie Referring Provider Melissa STONE, Dr. Fowler Attending Provider [place]ON WEIGHER AND CRUSHER-C, JESUS Referring Provider Brisa WEIGHER AND CRUSHER-C, Raegan Other Provider Hossein GUY, Dr. Jay Attending Provider Carrington STONE, Dr. Aviles Emergency Provider L[place]ON WEIGHER AND CRUSHER-C, JESUS Primary Care Provider Melissa STONE, Dr. Fowler Attending Provider Carrington STONE, Dr. Aviles Emergency Provider Hi STONE, Dr. Michelle Dunn Admit Provider Hi STONE, Dr. Michelle Dunn Other Provider [phone] Marilyn STONE, Dr. Ray Mercedes Other Provider [phone] Malcolm Hanson DO Attending Provider Satish STONE, Dr. Vera Other Provider Marilyn STONE, Dr. Ray Mercedes Attending Provider Satish STONE, Dr. Vera Attending Provider Dr. Malcolm Hanson DO Other Provider Cesar PA-C, Padma Attending Provider [place] NAIL PROFESSIONAL-MASTER MACHINIST, JESUS Attending Unalisai priyanka CARMENETLER NAIL PROFESSIONAL-MASTER MACHINIST, JESUS Primary Care Unavai lable [place] WEIGHER AND CRUSHER-C, JESUS Primary Care Provider [place] WEIGHER AND CRUSHER-C, JESUS Referring Provider Dr. Malcolm Hanson DO Referring Provider Danitza STONE, Dr. Hensley Attending Provider [place] WEIGHER AND CRUSHER-C, JESUS Primary Care Provider [place] WEIGHER AND CRUSHER-C, JESUS Referring Provider Dr. Ayden Bosch MD Referring Provider [place] WEIGHER AND CRUSHER-C, JESUS Primary Care Provider Ledezma WEIGHER AND CRUSHER-C, Raegan Attending Provider [place] WEIGHER AND CRUSHER-C, JESUS Referring Provider Dr. Ray Sanders MD Referring Provider Danitza STONE, Dr. Hensley Referring Provider Jenae WEIGHER AND CRUSHER-C, Camille Attending Provider [place] WEIGHER AND CRUSHER-C, JESUS Primary Care Provider Ledezma WEIGHER AND CRUSHER-C, Raegan Attending Provider Ledezma WEIGHER AND CRUSHER-C, Raegan Referring Provider L[place] WEIGHER AND CRUSHER-C, JESUS Primary Care Provider Ledezma WEIGHER AND CRUSHER-C, Raegan Attending Provider Ledezma WEIGHER AND CRUSHER-C, Raegan Referring Provider [place] WEIGHER AND CRUSHER-C, JESUS Primary Care Provider Ledezma WEIGHER AND CRUSHER-C, Raegan Attending Provider [place] WEIGHER AND CRUSHER-C, JESUS Referring Provider [place] WEIGHER AND CRUSHER-C, JESUS Primary Care Physician Ledezma WEIGHER AND CRUSHER-C, Raegan Attending Physician Carrington STONE, Dr. Aviles Emergency Department Phys ician Hi STNOE, Dr. Michelle Dunn Admitting Physician [phone] Hi STONE, Dr. Michelle Dunn Nurse Practitioner [...] Unavailable LONDON, JESUS Primary Care Unavailable Brisa WEIGHER AND CRUSHER, Raegan Attending Unavailable Brisa WEIGHER AND CRUSHER, Raegan Referring Unavailable LONDON, JESUS Primary Care Unavailable Ledezma WEIGHER AND CRUSHER, Raegan Attending Unavailable Ledezma WEIGHER AND CRUSHER, Raegan Referring Unavailable L[place], JESUS Primary Care [...] Care Unavailable Ray Sanders Attending Unavailable Ledezma WEIGHER AND CRUSHER, Raegan Attending Unavailable L[place], JESUS Referring Unavailable [...] Care Unavailable AndMinisterio borrero Attending Unavailable Ledezma WEIGHER AND CRUSHER, Raegan Attending Unavailable Ledezma WEIGHER AND CRUSHER, Raegan Referring Unavailable LOND[place], JESUS Primary Care Unavailable Michelle Do Attending Unavailable Joppleticia, Malcolm Referring Unavailable Padma Guerrero Attending Unavailable TerrappMalcolm casas Consulting Unavailable Ayden Bosch Attending Unavailable LONDON, JESUS Primary Care Unavailable PrahAyden Referring Unavailable WanRay nelson Attending Unavailable Ray Sanders Referring Unavailable LOND[place], JESUS Primary Care Unavailable Goldy Patino Referring Unavailable Janak Ulloa Attending Unavailable LONDON, JESUS Primary Care Unavailable Goldy Patino Consulting Unavailable Goldy Patino Admitting Unavailable LONDON, JESUS Primary Care Unavailable Ledezma WEIGHER AND CRUSHER, Raegan Referring Unavailable Ledezma WEIGHER AND CRUSHER, Raegan Attending Unavailable L[place]ON, JESUS Primary Care Unavailable Freddy Mayen Attending Unavailable Melissa, Malcolm Attending Unavailable L[place], JESUS Primary Care Unavailable Pierre Catalan Attending Unavailable Lenny Franks Attending Unavailable LONDON, JESUS Referring Unavailable LONDON, JESUS Primary Care Unavailable Ray Sanders Attending Unavailable Wanleslie, Ray Mercedes Referring Unavailable WanekRay Consulting Unavailable LONDON, JESUS Primary Care Unavailable Ledezma WEIGHER AND CRUSHER, Raegan Referring Unavailable Ledezma WEIGHER AND CRUSHER, Raegan Consulting Unavailable Pierre Catalan Attending Unavailable LONDON, JESUS Primary Care Unavailable Janak Ulloa Attending Unavailable Malcolm Hanson Attending Unavailable L[place]ON, JESUS Primary Care Unavailable Jenae WEIGHER AND CRUSHER, Camille Attending Unavailable LONDON, JESUS Referring Unavailable LONDON, JESUS Primary Care Unavailable Jenae WEIGHER AND CRUSHER, Camille Attending Unavailable [place], JESUS Referring Unavailable [place], Malcolm Attending Unavailable LONDON, JESUS Referring Unavailable LONDON, JESUS Primary Care Unavailable Ledezma WEIGHER AND CRUSHER, Raegan Attending Unavailable LONDON, JESUS Referring Unavailable LONDON, JESUS Primary Care Unavailable PrahAyden Attending Unavailable LONDON, JESUS Primary Care Unavailable LONDON, JESUS Referring Unavailable LONDON, JESUS Primary Care Unavailable Jenae WEIGHER AND CRUSHER, Camille Attending Unavailable LONDON, JESUS Referring Unavailable Prah, Ayden Attending Unavailable LONDON, JESUS Primary Care Unavailable LONDON, JESUS Referring Unavailable LONDON, JESUS Primary Care Unavailable Jenae WEIGHER AND CRUSHER, Camille Attending Unavailable L[place], JESUS Referring Unavailable Ray Sanders Attending Unavailable LONDON, JESUS Primary Care Unavailable PrahAyden Referring Unavailable Prah, Ayden Attending Unavailable LONDON, JESUS Primary Care Unavailable LONDON, JESUS Referring Unavailable Prah, Ayden Attending Unavailable [place], JESUS Primary Care Unavailable Brisa WEIGHER AND CRUSHER, Raegan Referring Unavailable LONDON, JESUS Primary Care Unavailable Brisa WEIGHER AND CRUSHER, Raegan Attending Unavailable L[place], JESUS Referring Unavailable Ray Sanders Consulting Unavailable Hi Michelle Mona Admitting Unavailable Malcolm Hanson Attending Unavailable L[place], JESUS Primary Care Unavailable Michelle Do Mona Consulting Unavailable Chuy Covarrubias Consulting Unavailable Allergies Allergy Classification Reported Allergen(s) Allergy Type Date of Onset Reaction(s) Facility (16 sources) hydroCHLOROthiazide Drug Allergy 5 [facility] (1 source) hydroCHLOROthiazide Drug Allergy 5 [facility] Repository Medications Current Medications Medication Drug Class(es) Dates Sig (Normalized) Sig (Original) [id number] 200 actuat albuterol 0.09 mg/actuat metered dose [...] qDay, # 90 tab(s), 2 Refill(s), Pharmacy: [facility], Hypertension, 166, cm, 03/08/21 13:32:00 EDT, [...] lobe, left bronchus or lung polymyxin b [id number] unt/ml / trimethoprim 1 mg/ml ophthalmic solution [...] qDay, # 30 cap(s), 0 Refill(s), Pharmacy: [facility], BPH without urinary obstruction, 166, cm, 11/25/23 9:57:00 EST, Height, kg, 11/25/23 9:57:00 EST, Dosing Weight Start Date: 11/25/23 Stop Date: 12/25/23 Status: Ordered Start: 09-23-2021 End: 11-22-2021 tamsulosin 0.4 mg oral capsu le Dose : 0.4 mg = 1 cap(s), Oral, qDay, # 30 cap(s), 1 Refill(s), Pharmacy: [facility], BPH without urinary obstruction, 166, cm, [...] inch, # 3.5 gram(s), 0 Refill(s), Pharmacy: [facility], Hordeolum of left eye, 166, cm, [...] Daily, # 30 tab(s), 0 Refill(s), Pharmacy: [facility], Hypertension, 166, cm, 11/25/23 9:57:00 EST, Height, kg, 11/25/23 9:57:00 EST, Dosing Weight Start Date: 11/25/23 Stop Date: 12/25/23 Status: Ordered Start: 09-23-2021 End: 11-22-2021 take 1 tablet by mouth once daily hydrochlorothiazide-irbesartan 12.5 mg-1 50 mg oral tablet Dose = 1 tab(s), Oral, Daily, # 30 tab(s), 1 Refill(s), Pharmacy: [facility], Hypertension, 166, cm, 09/23/21 8:10:00 EST, [...] spec) [#/Vol] 1.36 10*3/uL 0.83-4.51 [facility] Absolute neutrophil countOrd ered By: Ayden Bosch on 07-26-2025 Neutrophils (Bld) [#/Vol] 16.3 10*3/uL High 2.0-7.7 [facility] Anion gap in Serum or Plasma Ordered By: Ayden Bosch on 07-26-2025 Anion gap [Moles/Vol] 12 mmol/L 5-15 [facility] Automated blood erythrocyte countOrdered By: Ayden Bosch on 07-26-2025 RBC (Bld) [#/Vol] 3.87 10*6/uL Low 4.6-6.2 [facility] Comment on above: Performed By: #### L 501.9520, L100.0100, L501.2300, L500.4050 ####[facility] [address] [place], [address] Automated blood hematocrit ( percentage)Ordered By: Ayden Bosch on 07-26-2025 Hematocrit (Bld) [Volume fraction] 34.9 % Low 40-54 [facility] Comment on above: Performed By: #### L 501.9520, L100.0100, L501.2300, L500.4050 ####[facility] [address] [facility] [place], [address] Automated lymphocyte count a s percentage of total leukocytesOrdered By: Ayden Bosch on 07-26-2025 Lymphocytes/100 WBC Auto (Unsp spec) 7.0 % Low 19-41 [facility] BUN/creatinine ratioOrdered By: Ayden Bosch on 07-26-2025 Urea nitrogen/Creatinine [Mass ratio] 19.8 mg/mg 10-20 [facility] Basophil percentageOrdered B y: Ayden Bosch on 07-26-2025 Basophils/100 WBC (Bld) 0.4 % Normal 0-1 [facility] Comment on above: Performed By: #### L 501.9520, L100.0100, L501.2300, L500.4050 ####[facility] [address] [place], [address] Bilirubin, totalOrdered By: Ayden Bosch on 07-26-2025 Bilirubin [Mass/Vol] 0.29 mg/dL Normal 0.00-1.30 [facility] Comment on above: Performed By: #### L 501.9520, L100.0100, L501.2300, L500.4050 ####[facility] [address] [place], [address] CBC W/Diff, Automatedon 07-10 Absolute Lymph 1.36 X10 3/uL Normal 0.83-4.51 [facility] Comment on above: Performed By: #### L 501.9520, L100.0100, L501.2300, L500.4050 ####[facility] [address] [place], [address] Absolute Neut 16.3 X10 3/uL High 2.0-7.7 [facility] Comment on above: Performed By: #### L 501.9520, L100.0100, L501.2300, L500.4050 ####[facility] [address] [place], [address] IG% 1.900 High 0.0-0.9 [facility] Comment on above: Result Comment: IG% - Immature Granulocytes (promyelocytes, myelocytes andmetamyelocytes) > 1% indicates that a LEFT SHIFT is Present. Performed By: #### L 501.9520, L100.0100, L501.2300, L500.4050 ####[facility] [address] [place], [address] Lymphocytes/100 WBC (Bld) 7.0 % Low 19-41 [facility] Comment on above: Performed By: #### L 501.9520, L100.0100, L501.2300, L500.4050 ####[facility] [address] [place], [address] Nucleated RBC (Bld) [#/Vol] 0 10*3/uL Normal 0-5 [facility] Comment on above: Performed By: #### L 501.9520, L100.0100, L501.2300, L500.4050 ####[facility] [address] [place], [address] RDW SD 48.9 fl High 35.1-43.9 [facility] Comment on above: Performed By: #### L 501.9520, L100.0100, L501.2300, L500.4050 ####[facility] [address] [place], [address] Carbon dioxide, total [Moles /volume] in Central venous bloodOrdered By: Ayden Bosch on 07-26-2025 CO2 [Moles/Vol] 21.9 mmol/L Normal 21.0-32.0 [facility] Comment on above: Performed By: #### L 501.9520, L100.0100, L501.2300, L500.4050 ####[facility] [address] [place], [address] Chloride assayOrdered By: Terra Bosch on 07-26-2025 Chloride [Moles/Vol] 99 mmol/L Normal 98-108 [facility] Comment on above: Performed By: #### L 501.9520, L100.0100, L501.2300, L500.4050 ####[facility] [address] [place], [address] Comprehensive Metabolic Prof janet 07-26-2025 ALK PHOS 151 U/L High 40-129 [facility] Comment on above: Performed By: #### L 501.9520, L100.0100, L501.2300, L500.4050 ####[facility] [address] [place], [address] BUN/CRE 19.8 RATIO Normal 10-20 [facility] Comment on above: Performed By: #### L 501.9520, L100.0100, L501.2300, L500.4050 ####[facility] [address] [place], [address] ECRCL 57.88 ml/min Normal 50-250 [facility] Comment on above: Performed By: #### L 501.9520, L100.0100, L501.2300, L500.4050 ####[facility] [address] [place], [address] GAP 12 Normal 5-15 [facility] Comment on above: Performed By: #### L 501.9520, L100.0100, L501.2300, L500.4050 ####[facility] [address] [place], [address] Potassium [Moles/Vol] 4.1 mmol/L Normal 3.3-5.1 [facility] Comment on above: Performed By: #### L 501.9520, L100.0100, L501.2300, L500.4050 ####[facility] [address] [place], [address] T PROT 7.2 g/dL Normal 5.9-8.4 [facility] Comment on above: Performed By: #### L 501.9520, L100.0100, L501.2300, L500.4050 ####[facility] [address] [place], [address] Comprehensive Metabolic Prof ilOrdered By: Ayden Bosch on 07-26-2025 AST [Catalytic activity/Vol] 30 U/L Normal <=37 [facility] Comment on above: Performed By: #### L 501.9520, L100.0100, L501.2300, L500.4050 ####[facility] [address] [place], [address] Eosinophil percentageOrdered By: Ayden Bosch on 07-26-2025 Eosinophils/100 WBC (Bld) 0.0 % Normal 0-5 [facility] Comment on above: Performed By: #### L 501.9520, L100.0100, L501.2300, L500.4050 ####[facility] [address] [place], [address] Erythrocyte distribution wid th ratioOrdered By: Ayden Bosch on 07-26-2025 Erythrocyte distribution width (RBC) [Ratio] 15.1 % High 11.6-14.6 [facility] Comment on above: Performed By: #### L 501.9520, L100.0100, L501.2300, L500.4050 ####[facility] [address] [place], [address] Erythrocyte distribution wid th standard deviationOrdered By: Ayden Bosch on 07-26-2025 Erythrocyte distribution width (RBC) [Ratio] 48.9 fl High 35.1-43.9 [facility] Glomerular filtration rate ( GFR) estimation/1.73 sq m using serum, plasma, or whole bOrdered By: Ayden Bosch on 07-26-2025 GFR/1.73 sq M.predicted among non-blacks MDRD (S/P/Bld) [Vol rate/Area] 104 mL/min/{1.73_m2} Normal >60 [facility] Comment on above: mL/min/1.73m2 CKD-EP I Creatinine Equation (2020) Result Comment: mL/m in/1.73m2 CKD-EPI Creatinine Equation (2020) Performed By: #### L 501.9520, L100.0100, L501.2300, L500.4050 ####[facility] [address] [place], [address] Hemoglobin measurementOrdere d By: Ayden Bosch on 07-26-2025 Hemoglobin (Bld) [Mass/Vol] 12.2 g/dL Low 13.0-16. 5 [facility] Comment on above: Performed By: #### L 501.9520, L100.0100, L501.2300, L500.4050 ####[facility] [address] [place], [address] Immature granulocytes/100 WB C Auto (Bld)Ordered By: Ayden Bosch on 07-26-2025 Immature granulocytes/100 WBC (Bld) 1.900 % High 0.0-0.9 [facility] Comment on above: IG% - Immature Granu locytes (promyelocytes, myelocytes and metamyelocytes) > 1% indicates that a LEFT SHIFT is Present. MCV (mean corpuscular volume ) determinationOrdered By: Ayden Bosch on 07-26-2025 MCV (RBC) [Entitic vol] 90.2 fL Normal 80-94 [facility] Comment on above: Performed By: #### L 501.9520, L100.0100, L501.2300, L500.4050 ####[facility] [address] [place], [address] Mean corpuscular hemoglobin (MCH) determinationOrdered By: Ayden Bosch on 07-26-2025 MCH (RBC) [Entitic mass] 31.5 pg Normal 27.0-32.0 [facility] Comment on above: Performed By: #### L 501.9520, L100.0100, L501.2300, L500.4050 ####[facility] [address] [place], [address] Mean corpuscular hemoglobin concentration (MCHC) determinationOrdered By: Ayden Bosch on 07-26-2025 MCHC (RBC) [Mass/Vol] 35.0 g/dL Normal 32-36 [facility] Comment on above: Performed By: #### L 501.9520, L100.0100, L501.2300, L500.4050 ####[facility] [address] [place], [address] Mean platelet volume determi nationOrdered By: Ayden Bosch on 07-26-2025 Platelet mean volume (Bld) [Entitic vol] 8.9 fL Normal 6.2-12.0 [facility] Comment on above: Performed By: #### L 501.9520, L100.0100, L501.2300, L500.4050 ####[facility] [address] [place], [address] Monocyte percentageOrdered B y: Ayden Bosch on 07-26-2025 Monocytes/100 WBC (Bld) 6.9 % Normal 0-10 [facility] Comment on above: Performed By: #### L 501.9520, L100.0100, L501.2300, L500.4050 ####[facility] [address] [place], [address] Neutrophil percentageOrdered By: Ayden Bosch on 07-26-2025 Neutrophils/100 WBC (Bld) 83.8 % High 47-70 [facility] Comment on above: Performed By: #### L 501.9520, L100.0100, L501.2300, L500.4050 ####[facility] [address] [place], [address] Nucleated red blood cell per centageOrdered By: Ayden Bosch on 07-26-2025 Nucleated RBC/100 WBC (Bld) [Ratio] 0 % 0-5 [facility] Oncology Visit Reporton 07-10 Oncology Visit Report Normal [facility] Phosphoruson 07-26-2025 Phosphate [Mass/Vol] 3.5 mg/dL Normal 2.7-4.5 [facility] Comment on above: Performed By: #### L 501.9520, L100.0100, L501.2300, L500.4050 ####[facility] [address] [place], [address] Platelet countOrdered By: Terra Bosch on 07-26-2025 Platelets (Bld) [#/Vol] 555 10*3/uL High 150-450 [facility] Comment on above: Performed By: #### L 501.9520, L100.0100, L501.2300, L500.4050 ####[facility] [address] [place], [address] Potassium measurement (mass/ volume)Ordered By: Ayden Bosch on 07-26-2025 Potassium (Unsp spec) [Mass/Vol] 4.1 mmol/L 3.3-5.1 [facility] Serum creatinine measurement (mass/volume)Ordered By: Ayden Boshc on 07-26-2025 Creatinine [Mass/Vol] 0.60 mg/dL Low 0.70-1.20 [facility] Comment on above: Performed By: #### L 501.9520, L100.0100, L501.2300, L500.4050 ####[facility] [address] [place], [address] Serum globulin measurementOr dered By: Ayden Bosch on 07-26-2025 Globulin (S) [Mass/Vol] 3.6 g/dL Normal 2.2-4.2 [facility] Comment on above: Performed By: #### L 501.9520, L100.0100, L501.2300, L500.4050 ####[facility] [address] [place], [address] Serum glucose measurement (m ass/volume)Ordered By: Ayden Bosch on 07-26-2025 Glucose [Mass/Vol] 110 mg/dL High 70-99 [facility] Comment on above: Performed By: #### L 501.9520, L100.0100, L501.2300, L500.4050 ####[facility] [address] [place], [address] Serum or plasma alanine champagne otransferase (ALT) measurementOrdered By: Ayden Bosch on 07-26-2025 ALT [Catalytic activity/Vol] 23 U/L Normal <=46 [facility] Comment on above: Performed By: #### L 501.9520, L100.0100, L501.2300, L500.4050 ####[facility] [address] [place], [address] Serum or plasma albumin francoise urement (mass/volume)Ordered By: Ayden Bosch on 07-26-2025 Albumin [Mass/Vol] 3.7 g/dL Normal 3.4-4.8 [facility] Comment on above: Performed By: #### L 501.9520, L100.0100, L501.2300, L500.4050 ####[facility] [address] [place], [address] Serum or plasma albumin/glob ulin mass ratioOrdered By: Ayden Bosch on 07-26-2025 Albumin/Globulin [Mass ratio] 1.0 {ratio} Normal 0.9-2.4 [facility] Comment on above: Performed By: #### L 501.9520, L100.0100, L501.2300, L500.4050 ####[facility] [address] [place], [address] Serum or plasma alkaline mariola sphatase measurementOrdered By: Ayden Bosch on 07-26-2025 ALP [Catalytic activity/Vol] 151 U/L High 40-129 [facility] Serum or plasma calcium francoise urement (mass/volume)Ordered By: Ayden Bosch on 07-26-2025 Calcium [Mass/Vol] 9.5 mg/dL Normal 7.6-11.0 [facility] Comment on above: Performed By: #### L 501.9520, L100.0100, L501.2300, L500.4050 ####[facility] [address] [place], [address] Serum or plasma urea nitroge n measurement (mass/volume)Ordered By: Ayden Bosch on 07-26-2025 Urea nitrogen [Mass/Vol] 12 mg/dL Normal 4-19 [facility] Comment on above: Performed By: #### L 501.9520, L100.0100, L501.2300, L500.4050 ####[facility] [address] [place], [address] Sodium levelOrdered By: Cam Bosch on 07-26-2025 Sodium [Moles/Vol] 133 mmol/L Normal 133-145 [facility] Comment on above: Performed By: #### L 501.9520, L100.0100, L501.2300, L500.4050 ####[facility] [address] [place], [address] TSH DL <= 0.005 mIU/L QnOrde red By: Ayden Bosch on 07-26-2025 TSH Qn 1.310 uIU/mL 0.300-4.20 0 [facility] Thyroid Stim Hormone (TSH)on 07-26-2025 TSH 1.310 uIU/mL Normal 0.300-4.20 0 [facility] Comment on above: Performed By: #### L 501.9520, L100.0100, L501.2300, L500.4050 ####[facility] [address] [place], [address] Total proteinOrdered By: Ramón Bosch on 07-26-2025 Protein [Mass/Vol] 7.2 g/dL 5.9-8.4 [facility] White blood cell (WBC) count Ordered By: Ayden Bosch on 07-26-2025 WBC (Bld) [#/Vol] 19.5 10*3/uL High 4.4-11.0 [facility] Comment on above: Performed By: #### L 501.9520, L100.0100, L501.2300, L500.4050 ####[facility] [address] [place], [place], [id number] Absolute lymphocyte countOrd ered By: Camille Jenae on 07-19-2025 Lymphocytes Auto (Unsp spec) [#/Vol] 1.95 10*3/uL 0.83-4.51 [facility] Absolute neutrophil countOrd ered By: Camille Jenae on 07-19-2025 Neutrophils (Bld) [#/Vol] 16.1 10*3/uL High 2.0-7.7 [facility] Anion gap in Serum or Plasma Ordered By: Camille Jenae on 07-19-2025 Anion gap [Moles/Vol] 11 mmol/L 5-15 [facility] Automated lymphocyte count a s percentage of total leukocytesOrdered By: Camille Jenae on 07-19-2025 Lymphocytes/100 WBC Auto (Unsp spec) 9.2 % Low 19-41 [facility] BUN/creatinine ratioOrdered By: Camille Jenae on 07-19-2025 Urea nitrogen/Creatinine [Mass ratio] 17.2 mg/mg 10-20 [facility] Basophil percentageOrdered B y: Camille Jenae on 07-19-2025 Basophils/100 WBC (Bld) 0.2 % 0-1 [facility] Bilirubin, totalOrdered By: Camille Jenae on 07-19-2025 Bilirubin [Mass/Vol] 0.52 mg/dL Normal 0.00-1.30 [facility] Comment on above: Performed By: #### L 100.0100, L500.4050 ####[facility] [address] [place], [address] Blood manual differential co mment interpretation (narrative result)Ordered By: Camillemago Emanuel on 07-19-2025 Manual differential comment Agapito (Bld) [Interp] COMMENT [facility] Comment on above: MONOCYTOSIS. CBC W/Diff, Automatedon 09- SMEAR COMMENT COMMENT Normal [facility] Comment on above: Result Comment: MONO CYTOSIS. Performed By: #### L 100.0100, L500.4050 ####[facility] [address] [place], [address] Carbon dioxide, total [Moles /volume] in Central venous bloodOrdered By: Camille Emanuel on 07-19-2025 CO2 [Moles/Vol] 22.5 mmol/L Normal 21.0-32.0 [facility] Comment on above: Performed By: #### L 100.0100, L500.4050 ####[facility] [address] [place], [address] Chloride assayOrdered By: Ty ra Emanuel on 07-19-2025 Chloride [Moles/Vol] 97 mmol/L Low 98-108 [facility] Comment on above: Performed By: #### L 100.0100, L500.4050 ####[facility] [address] [place], [address] Comprehensive Metabolic Prof ilon 07-19-2025 ALK PHOS 186 U/L High 40-129 [facility] Comment on above: Performed By: #### L 100.0100, L500.4050 ####[facility] [address] [place], [address] BUN/CRE 17.2 RATIO Normal 10-20 [facility] Comment on above: Performed By: #### L 100.0100, L500.4050 ####[facility] [address] [place], [address] ECRCL 57.60 ml/min Normal 50-250 [facility] Comment on above: Performed By: #### L 100.0100, L500.4050 ####[facility] [address] [place], [address] GAP 11 Normal 5-15 [facility] Comment on above: Performed By: #### L 100.0100, L500.4050 ####[facility] [address] [place], [address] Potassium [Moles/Vol] 3.9 mmol/L Normal 3.3-5.1 [facility] Comment on above: Performed By: #### L 100.0100, L500.4050 ####[facility] [address] [place], [place], [id number] T PROT 6.9 g/dL Normal 5.9-8.4 [facility] Comment on above: Performed By: #### L 100.0100, L500.4050 ####[facility] [address] [place], [address] Comprehensive Metabolic Prof ilOrdered By: Camille Emanuel on 07-19-2025 AST [Catalytic activity/Vol] 28 U/L Normal <=37 [facility] Comment on above: Performed By: #### L 100.0100, L500.4050 ####[facility] [address] [place], [address] Eosinophil percentageOrdered By: Camille Emanuel on 07-19-2025 Eosinophils/100 WBC (Bld) 0.5 % 0-5 [facility] Erythrocyte distribution wid th ratioOrdered By: Camille Emanuel on 07-19-2025 Erythrocyte distribution width (RBC) [Ratio] 14.6 % 11.6-14.6 [facility] Erythrocyte distribution wid th standard deviationOrdered By: Camille Emanuel on 07-19-2025 Erythrocyte distribution width (RBC) [Ratio] 45.6 fl High 35.1-43.9 [facility] Glomerular filtration rate ( GFR) estimation/1.73 sq m using serum, plasma, or whole bOrdered By: Camille Emanuel on 07-19-2025 GFR/1.73 sq M.predicted among non-blacks MDRD (S/P/Bld) [Vol rate/Area] 113 mL/min/{1.73_m2} Normal >60 [facility] Comment on above: mL/min/1.73m2 CKD-EP I Creatinine Equation (2020) Result Comment: mL/m in/1.73m2 CKD-EPI Creatinine Equation (2020) Performed By: #### L 100.0100, L500.4050 ####[facility] [address] [place], [address] Hematocrit Auto (Bld) [Volum e fraction]Ordered By: Camille Emanuel on 07-19-2025 Hematocrit (Bld) [Volume fraction] 34.6 % Low 40-54 [facility] Hemoglobin measurementOrdere d By: Camille Emanuel on 07-19-2025 Hemoglobin (Bld) [Mass/Vol] 12.1 g/dL Low 13.0-16. 5 [facility] Immature granulocytes/100 WB C Auto (Bld)Ordered By: Camille Emanuel on 07-19-2025 Immature granulocytes/100 WBC (Bld) 3.800 % High 0.0-0.9 [facility] Comment on above: IG% - Immature Granu locytes (promyelocytes, myelocytes and metamyelocytes) > 1% indicates that a LEFT SHIFT is Present. MCV (mean corpuscular volume ) determinationOrdered By: Camille Emanuel on 07-19-2025 MCV (RBC) [Entitic vol] 90.3 fL 80-94 [facility] Mean corpuscular hemoglobin (MCH) determinationOrdered By: Camille Emanuel on 07-19-2025 MCH (RBC) [Entitic mass] 31.6 pg 27.0-32.0 [facility] Mean corpuscular hemoglobin concentration (MCHC) determinationOrdered By: Camille Emanuel on 07-19-2025 MCHC (RBC) [Mass/Vol] 35.0 g/dL 32-36 [facility] Mean platelet volume determi nationOrdered By: Camille Emanuel on 07-19-2025 Platelet mean volume (Bld) [Entitic vol] 9.2 fL 6.2-12.0 [facility] Monocyte percentageOrdered B y: Camille Emanuel on 07-19-2025 Monocytes/100 WBC (Bld) 10.7 % High 0-10 [facility] Neutrophil percentageOrdered By: Camille Emanuel on 07-19-2025 Neutrophils/100 WBC (Bld) 75.6 % High 47-70 [facility] Nucleated red blood cell per centageOrdered By: Camille Emanuel on 07-19-2025 Nucleated RBC/100 WBC (Bld) [Ratio] 0 % 0-5 [facility] Oncology Visit Reporton 07-10 0 Oncology Visit Report Normal [facility] Platelet countOrdered By: Dickson Emanuel on 07-19-2025 Platelets (Bld) [#/Vol] 281 10*3/uL 150-450 [facility] Potassium measurement (mass/ volume)Ordered By: Camille Emanuel on 07-19-2025 Potassium (Unsp spec) [Mass/Vol] 3.9 mmol/L 3.3-5.1 [facility] RBC Auto (Bld) [#/Vol]Ordere d By: Camille Emanuel on 07-19-2025 RBC (Bld) [#/Vol] 3.83 10*6/uL Low 4.6-6.2 [facility] Serum creatinine measurement (mass/volume)Ordered By: Camille Emanuel on 07-19-2025 Creatinine [Mass/Vol] 0.45 mg/dL Low 0.70-1.20 [facility] Comment on above: Performed By: #### L 100.0100, L500.4050 ####[facility] [address] [place], [place], [id number] Serum globulin measurementOr dered By: Camille Emanuel on 07-19-2025 Globulin (S) [Mass/Vol] 3.2 g/dL Normal 2.2-4.2 [facility] Comment on above: Performed By: #### L 100.0100, L500.4050 ####[facility] [address] [place], [place], [address] Serum glucose measurement (m ass/volume)Ordered By: Camille Galeanoach on 07-19-2025 Glucose [Mass/Vol] 97 mg/dL Normal 70-99 [facility] Comment on above: Performed By: #### L 100.0100, L500.4050 ####[facility] [address] [place], [address] Serum or plasma alanine champagne otransferase (ALT) measurementOrdered By: Camille SimonJenae on 07-19-2025 ALT [Catalytic activity/Vol] 24 U/L Normal <=46 [facility] Comment on above: Performed By: #### L 100.0100, L500.4050 ####[facility] [address] [place], [address] Serum or plasma albumin francoise urement (mass/volume)Ordered By: Camille SimonJenae on 07-19-2025 Albumin [Mass/Vol] 3.7 g/dL Normal 3.4-4.8 [facility] Comment on above: Performed By: #### L 100.0100, L500.4050 ####[facility] [address] [place], [address] Serum or plasma albumin/glob ulin mass ratioOrdered By: Camille SimonJenae on 07-19-2025 Albumin/Globulin [Mass ratio] 1.1 {ratio} Normal 0.9-2.4 [facility] Comment on above: Performed By: #### L 100.0100, L500.4050 ####[facility] [address] [place], [address] Serum or plasma alkaline mariola sphatase measurementOrdered By: Camille SimonJenae on 07-19-2025 ALP [Catalytic activity/Vol] 186 U/L High 40-129 [facility] Serum or plasma calcium francoise urement (mass/volume)Ordered By: Camille SimonJenae on 07-19-2025 Calcium [Mass/Vol] 9.1 mg/dL Normal 7.6-11.0 [facility] Comment on above: Performed By: #### L 100.0100, L500.4050 ####[facility] [address] [place], [address] Serum or plasma urea nitroge n measurement (mass/volume)Ordered By: Camille Emanuel on 07-19-2025 Urea nitrogen [Mass/Vol] 8 mg/dL Normal 4-19 [facility] Comment on above: Performed By: #### L 100.0100, L500.4050 ####[facility] [address] [place], [address] Sodium levelOrdered By: Camille Emanuel on 07-19-2025 Sodium [Moles/Vol] 131 mmol/L Low 133-145 [facility] Comment on above: Performed By: #### L 100.0100, L500.4050 ####[facility] [address] [place], [address] Total proteinOrdered By: Lizzy Emanuel on 07-19-2025 Protein [Mass/Vol] 6.9 g/dL 5.9-8.4 [facility] White blood cell (WBC) count Ordered By: Camille Emanuel on 07-19-2025 WBC (Bld) [#/Vol] 21.3 10*3/uL High 4.4-11.0 [facility] Absolute lymphocyte countOrd ered By: Ayden Bosch on 07-05-2025 Lymphocytes Auto (Unsp spec) [#/Vol] 1.58 10*3/uL 0.83-4.51 [facility] Absolute neutrophil countOrd ered By: Ayden Bosch on 07-05-2025 Neutrophils (Bld) [#/Vol] 2.1 10*3/uL 2.0-7.7 [facility] Anion gap in Serum or Plasma Ordered By: Ayden Bosch on 07-05-2025 Anion gap [Moles/Vol] 12 mmol/L 5-15 [facility] Automated lymphocyte count a s percentage of total leukocytesOrdered By: Ayden Bosch on 07-05-2025 Lymphocytes/100 WBC Auto (Unsp spec) 29.9 % 19-41 [facility] BUN/creatinine ratioOrdered By: Ayden Bosch on 07-05-2025 Urea nitrogen/Creatinine [Mass ratio] 11.5 mg/mg 10-20 [facility] Basophil percentageOrdered B y: Ayden Danitza on 07-05-2025 Basophils/100 WBC (Bld) 0.6 % 0-1 [facility] Bilirubin, totalOrdered By: Ayden Bosch on 07-05-2025 Bilirubin [Mass/Vol] 0.82 mg/dL 0.00-1.30 [facility] Blood manual differential co mment interpretation (narrative result)Ordered By: Ayden Bosch on 07-05-2025 Manual differential comment Agapito (Bld) [Interp] COMMENT [facility] Comment on above: MONOCYTOSIS. CBC W/Diff, Automatedon 06-10 ATYPICAL LYMPH 1+ Normal [facility] Comment on above: Performed By: #### L 500.4050, L501.2300, L100.0100, L501.9520 ####[facility] [address] [place], [address] SMEAR COMMENT COMMENT Normal [facility] Comment on above: Result Comment: MONO CYTOSIS. Performed By: #### L 500.4050, L501.2300, L100.0100, L501.9520 ####[facility] [address] [place], [address] Carbon dioxide, total [Moles /volume] in Central venous bloodOrdered By: Ayden Bosch on 07-05-2025 CO2 [Moles/Vol] 22.4 mmol/L 21.0-32.0 [facility] Chloride assayOrdered By: Terra Bosch on 07-05-2025 Chloride [Moles/Vol] 99 mmol/L 98-108 [facility] Comprehensive Metabolic Prof ilon 07-05-2025 Albumin [Mass/Vol] 3.7 g/dL Normal 3.4-4.8 [facility] Comment on above: Performed By: #### L 500.4050, L501.2300, L100.0100, L501.9520 ####[facility] [address] [place], [address] Albumin/Globulin [Mass ratio] 1.1 {ratio} Normal 0.9-2.4 [facility] Comment on above: Performed By: #### L 500.4050, L501.2300, L100.0100, L501.9520 ####[facility] [address] [place], [address] ALK PHOS 124 U/L Normal 40-129 [facility] Comment on above: Performed By: #### L 500.4050, L501.2300, L100.0100, L501.9520 ####[facility] [address] [place], [address] ALT [Catalytic activity/Vol] 35 U/L Normal <=46 [facility] Comment on above: Performed By: #### L 500.4050, L501.2300, L100.0100, L501.9520 ####[facility] [address] [place], [address] AST [Catalytic activity/Vol] 40 U/L High <=37 [facility] Comment on above: Performed By: #### L 500.4050, L501.2300, L100.0100, L501.9520 ####[facility] [address] [place], [address] Bilirubin [Mass/Vol] 0.82 mg/dL Normal 0.00-1.30 [facility] Comment on above: Performed By: #### L 500.4050, L501.2300, L100.0100, L501.9520 ####[facility] [address] [place], [address] BUN/CRE 11.5 RATIO Normal 10-20 [facility] Comment on above: Performed By: #### L 500.4050, L501.2300, L100.0100, L501.9520 ####[facility] [address] [place], [address] Calcium [Mass/Vol] 9.2 mg/dL Normal 7.6-11.0 [facility] Comment on above: Performed By: #### L 500.4050, L501.2300, L100.0100, L501.9520 ####[facility] [address] [place], [address] Chloride [Moles/Vol] 99 mmol/L Normal 98-108 [facility] Comment on above: Performed By: #### L 500.4050, L501.2300, L100.0100, L501.9520 ####[facility] [address] [place], [address] CO2 [Moles/Vol] 22.4 mmol/L Normal 21.0-32.0 [facility] Comment on above: Performed By: #### L 500.4050, L501.2300, L100.0100, L501.9520 ####[facility] [address] [place], [address] Creatinine [Mass/Vol] 0.68 mg/dL Low 0.70-1.20 [facility] Comment on above: Performed By: #### L 500.4050, L501.2300, L100.0100, L501.9520 ####[facility] [address] [place], [address] ECRCL 57.60 ml/min Normal 50-250 [facility] Comment on above: Performed By: #### L 500.4050, L501.2300, L100.0100, L501.9520 ####[facility] [address] [place], [address] GAP 12 Normal 5-15 [facility] Comment on above: Performed By: #### L 500.4050, L501.2300, L100.0100, L501.9520 ####[facility] [address] [place], [address] GFR/1.73 sq M.predicted among non-blacks MDRD (S/P/Bld) [Vol rate/Area] 100 mL/min/{1.73_m2} Normal >60 [facility] Comment on above: Result Comment: mL/m in/1.73m2 CKD-EPI Creatinine Equation (2020) Performed By: #### L 500.4050, L501.2300, L100.0100, L501.9520 ####[facility] [address] [place], [address] Globulin (S) [Mass/Vol] 3.5 g/dL Normal 2.2-4.2 [facility] Comment on above: Performed By: #### L 500.4050, L501.2300, L100.0100, L501.9520 ####[facility] [address] [place], [address] Glucose [Mass/Vol] 119 mg/dL High 70-99 [facility] Comment on above: Performed By: #### L 500.4050, L501.2300, L100.0100, L501.9520 ####[facility] [address] [place], [address] Potassium [Moles/Vol] 3.9 mmol/L Normal 3.3-5.1 [facility] Comment on above: Performed By: #### L 500.4050, L501.2300, L100.0100, L501.9520 ####[facility] [address] [place], [address] Sodium [Moles/Vol] 134 mmol/L Normal 133-145 [facility] Comment on above: Performed By: #### L 500.4050, L501.2300, L100.0100, L501.9520 ####[facility] [address] [place], [address] T PROT 7.2 g/dL Normal 5.9-8.4 [facility] Comment on above: Performed By: #### L 500.4050, L501.2300, L100.0100, L501.9520 ####[facility] [address] [place], [address] Urea nitrogen [Mass/Vol] 8 mg/dL Normal 4-19 [facility] Comment on above: Performed By: #### L 500.4050, L501.2300, L100.0100, L501.9520 ####[facility] [address] [place], [address] Eosinophil percentageOrdered By: Ayden Bosch on 07-05-2025 Eosinophils/100 WBC (Bld) 1.3 % 0-5 [facility] Erythrocyte distribution wid th ratioOrdered By: Ayden Bosch on 07-05-2025 Erythrocyte distribution width (RBC) [Ratio] 13.5 % 11.6-14.6 [facility] Erythrocyte distribution wid th standard deviationOrdered By: Ayden Bosch on 07-05-2025 Erythrocyte distribution width (RBC) [Ratio] 42.8 fl 35.1-43.9 [facility] Glomerular filtration rate ( GFR) estimation/1.73 sq m using serum, plasma, or whole bOrdered By: Ayden Bosch on 07-05-2025 GFR/1.73 sq M.predicted among non-blacks MDRD (S/P/Bld) [Vol rate/Area] 100 mL/min/{1.73_m2} >60 [facility] Comment on above: mL/min/1.73m2 CKD-EP I Creatinine Equation (2020) Hematocrit Auto (Bld) [Volum e fraction]Ordered By: Ayden Bosch on 07-05-2025 Hematocrit (Bld) [Volume fraction] 35.3 % Low 40-54 [facility] Hemoglobin measurementOrdere d By: Ayden Bosch on 07-05-2025 Hemoglobin (Bld) [Mass/Vol] 12.7 g/dL Low 13.0-16. 5 [facility] Immature granulocytes/100 WB C Auto (Bld)Ordered By: Ayden Bosch on 07-05-2025 Immature granulocytes/100 WBC (Bld) 0.400 % 0.0-0.9 [facility] Comment on above: IG% - Immature Granu locytes (promyelocytes, myelocytes and metamyelocytes) > 1% indicates that a LEFT SHIFT is Present. Laboratory - Chemistry and C hemistry - challengeOrdered By: Ayden Bosch on 07-05-2025 AST [Catalytic activity/Vol] 40 U/L High <38 [facility] MCV (mean corpuscular volume ) determinationOrdered By: Ayden Bosch on 07-05-2025 MCV (RBC) [Entitic vol] 88.3 fL 80-94 [facility] Mean corpuscular hemoglobin (MCH) determinationOrdered By: Ayden Bosch on 07-05-2025 MCH (RBC) [Entitic mass] 31.8 pg 27.0-32.0 [facility] Mean corpuscular hemoglobin concentration (MCHC) determinationOrdered By: Ayden Bosch on 07-05-2025 MCHC (RBC) [Mass/Vol] 36.0 g/dL 32-36 [facility] Mean platelet volume determi nationOrdered By: Ayden Bosch on 07-05-2025 Platelet mean volume (Bld) [Entitic vol] 8.8 fL 6.2-12.0 [facility] Monocyte percentageOrdered B y: Ayden Bosch on 07-05-2025 Monocytes/100 WBC (Bld) 28.5 % High 0-10 [facility] Neutrophil percentageOrdered By: Ayden Bosch on 07-05-2025 Neutrophils/100 WBC (Bld) 39.3 % Low 47-70 [facility] Nucleated red blood cell per centageOrdered By: Ayden Bosch on 07-05-2025 Nucleated RBC/100 WBC (Bld) [Ratio] 0 % 0-5 [facility] Oncology Visit Reporton 06-10 Oncology Visit Report Normal [facility] Phosphoruson 07-05-2025 Phosphate [Mass/Vol] 3.0 mg/dL Normal 2.7-4.5 [facility] Comment on above: Performed By: #### L 500.4050, L501.2300, L100.0100, L501.9520 ####[facility] [address] [place], [address] Platelet countOrdered By: Terra Bosch on 07-05-2025 Platelets (Bld) [#/Vol] 448 10*3/uL 150-450 [facility] Potassium measurement (mass/ volume)Ordered By: Ayden Bosch on 07-05-2025 Potassium (Unsp spec) [Mass/Vol] 3.9 mmol/L 3.3-5.1 [facility] RBC Auto (Bld) [#/Vol]Ordere d By: Ayden Bosch on 07-05-2025 RBC (Bld) [#/Vol] 4.00 10*6/uL Low 4.6-6.2 [facility] Serum creatinine measurement (mass/volume)Ordered By: Ayden Bosch on 07-05-2025 Creatinine [Mass/Vol] 0.68 mg/dL Low 0.70-1.20 [facility] Serum globulin measurementOr dered By: Ayden Bosch on 07-05-2025 Globulin (S) [Mass/Vol] 3.5 g/dL 2.2-4.2 [facility] Serum glucose measurement (m ass/volume)Ordered By: Ayden Bosch on 07-05-2025 Glucose [Mass/Vol] 119 mg/dL High 70-99 [facility] Serum or plasma alanine champagne otransferase (ALT) measurementOrdered By: Ayden Bosch on 07-05-2025 ALT [Catalytic activity/Vol] 35 U/L <47 [facility] Serum or plasma albumin francoise urement (mass/volume)Ordered By: Ayden Bosch on 07-05-2025 Albumin [Mass/Vol] 3.7 g/dL 3.4-4.8 [facility] Serum or plasma albumin/glob ulin mass ratioOrdered By: Ayden Bosch on 07-05-2025 Albumin/Globulin [Mass ratio] 1.1 {ratio} 0.9-2.4 [facility] Serum or plasma alkaline mariola sphatase measurementOrdered By: Ayden Bosch on 07-05-2025 ALP [Catalytic activity/Vol] 124 U/L 40-129 [facility] Serum or plasma calcium francoise urement (mass/volume)Ordered By: Ayden Bosch on 07-05-2025 Calcium [Mass/Vol] 9.2 mg/dL 7.6-11.0 [facility] Serum or plasma urea nitroge n measurement (mass/volume)Ordered By: Ayden Bosch on 07-05-2025 Urea nitrogen [Mass/Vol] 8 mg/dL 4-19 [facility] Sodium levelOrdered By: Cam Bosch on 07-05-2025 Sodium [Moles/Vol] 134 mmol/L 133-145 [facility] TSH DL <= 0.005 mIU/L QnOrde red By: Ayden Bosch on 07-05-2025 TSH Qn 1.890 uIU/mL 0.300-4.20 0 [facility] Thyroid Stim Hormone (TSH)on 07-05-2025 TSH 1.890 uIU/mL Normal 0.300-4.20 0 [facility] Comment on above: Performed By: #### L 500.4050, L501.2300, L100.0100, L501.9520 ####[facility] [address] [place], [place], [address] Total proteinOrdered By: Ramón Bosch on 07-05-2025 Protein [Mass/Vol] 7.2 g/dL 5.9-8.4 [facility] White blood cell (WBC) count Ordered By: Ayden Bosch on 07-05-2025 WBC (Bld) [#/Vol] 5.3 10*3/uL 4.4-11.0 [facility] Absolute lymphocyte countOrd ered By: Ayden Bosch on 06-29-2025 Lymphocytes Auto (Unsp spec) [#/Vol] 1.25 10*3/uL 0.83-4.51 [facility] Absolute neutrophil countOrd ered By: Ayden Bosch on 06-29-2025 Neutrophils (Bld) [#/Vol] 1.2 10*3/uL Low 2.0-7.7 [facility] Anion gap in Serum or Plasma Ordered By: Ayden Bosch on 06-29-2025 Anion gap [Moles/Vol] 13 mmol/L 5-15 [facility] Automated lymphocyte count a s percentage of total leukocytesOrdered By: Ayden Bosch on 06-29-2025 Lymphocytes/100 WBC Auto (Unsp spec) 39.9 % 19-41 [facility] BUN/creatinine ratioOrdered By: Ayden Bosch on 06-29-2025 Urea nitrogen/Creatinine [Mass ratio] 13.6 mg/mg 10-20 [facility] Basophil percentageOrdered B y: Ayden Bosch on 06-29-2025 Basophils/100 WBC (Bld) 0.6 % 0-1 [facility] Bilirubin, totalOrdered By: Ayden Bosch on 06-29-2025 Bilirubin [Mass/Vol] 0.79 mg/dL 0.00-1.30 [facility] Blood manual differential co mment interpretation (narrative result)Ordered By: Ayden Bosch on 06-29-2025 Manual differential comment Agapito (Bld) [Interp] COMMENT [facility] Comment on above: LYMPHOPENIA. CBC W/Diff, Automatedon 06-10 Anisocytosis Ql (Bld) 1+ Normal [facility] Comment on above: Performed By: #### L 504.2610, L100.0100, L500.4050 ####[facility] [address] [place], [address] SMEAR COMMENT COMMENT Normal [facility] Comment on above: Result Comment: LYMP HOPENIA. Performed By: #### L 504.2610, L100.0100, L500.4050 ####[facility] [address] [place], [address] Carbon dioxide, total [Moles /volume] in Central venous bloodOrdered By: Ayden Bosch on 06-29-2025 CO2 [Moles/Vol] 22.9 mmol/L 21.0-32.0 [facility] Chloride assayOrdered By: Terra Bosch on 06-29-2025 Chloride [Moles/Vol] 97 mmol/L Low 98-108 [facility] Comprehensive Metabolic Prof ilon 06-29-2025 Albumin [Mass/Vol] 3.9 g/dL Normal 3.4-4.8 [facility] Comment on above: Performed By: #### L 504.2610, L100.0100, L500.4050 ####[facility] [address] [place], [address] Albumin/Globulin [Mass ratio] 1.2 {ratio} Normal 0.9-2.4 [facility] Comment on above: Performed By: #### L 504.2610, L100.0100, L500.4050 ####[facility] [address] [place], [address] ALK PHOS 126 U/L Normal 40-129 [facility] Comment on above: Performed By: #### L 504.2610, L100.0100, L500.4050 ####[facility] [address] [place], [address] ALT [Catalytic activity/Vol] 51 U/L High <=46 [facility] Comment on above: Performed By: #### L 504.2610, L100.0100, L500.4050 ####[facility] [address] [place], [address] AST [Catalytic activity/Vol] 55 U/L High <=37 [facility] Comment on above: Performed By: #### L 504.2610, L100.0100, L500.4050 ####[facility] [address] [place], [address] Bilirubin [Mass/Vol] 0.79 mg/dL Normal 0.00-1.30 [facility] Comment on above: Performed By: #### L 504.2610, L100.0100, L500.4050 ####[facility] [address] [place], [address] BUN/CRE 13.6 RATIO Normal 10-20 [facility] Comment on above: Performed By: #### L 504.2610, L100.0100, L500.4050 ####[facility] [address] [place], [address] Calcium [Mass/Vol] 9.2 mg/dL Normal 7.6-11.0 [facility] Comment on above: Performed By: #### L 504.2610, L100.0100, L500.4050 ####[facility] [address] [place], [address] Chloride [Moles/Vol] 97 mmol/L Low 98-108 [facility] Comment on above: Performed By: #### L 504.2610, L100.0100, L500.4050 ####[facility] [address] [place], [address] CO2 [Moles/Vol] 22.9 mmol/L Normal 21.0-32.0 [facility] Comment on above: Performed By: #### L 504.2610, L100.0100, L500.4050 ####[facility] [address] [place], [address] Creatinine [Mass/Vol] 0.54 mg/dL Low 0.70-1.20 [facility] Comment on above: Performed By: #### L 504.2610, L100.0100, L500.4050 ####[facility] [address] [place], [address] ECRCL 58.43 ml/min Normal 50-250 [facility] Comment on above: Performed By: #### L 504.2610, L100.0100, L500.4050 ####[facility] [address] [place], [address] GAP 13 Normal 5-15 [facility] Comment on above: Performed By: #### L 504.2610, L100.0100, L500.4050 ####[facility] [address] [place], [address] GFR/1.73 sq M.predicted among non-blacks MDRD (S/P/Bld) [Vol rate/Area] 107 mL/min/{1.73_m2} Normal >60 [facility] Comment on above: Result Comment: mL/m in/1.73m2 CKD-EPI Creatinine Equation (2020) Performed By: #### L 504.2610, L100.0100, L500.4050 ####[facility] [address] [place], [address] Globulin (S) [Mass/Vol] 3.2 g/dL Normal 2.2-4.2 [facility] Comment on above: Performed By: #### L 504.2610, L100.0100, L500.4050 ####[facility] [address], [address] Glucose [Mass/Vol] 101 mg/dL High 70-99 [facility] Comment on above: Performed By: #### L 504.2610, L100.0100, L500.4050 ####[facility] [address] [place], [address] Potassium [Moles/Vol] 3.9 mmol/L Normal 3.3-5.1 [facility] Comment on above: Performed By: #### L 504.2610, L100.0100, L500.4050 ####[facility] [address] [place], [address] Sodium [Moles/Vol] 132 mmol/L Low 133-145 [facility] Comment on above: Performed By: #### L 504.2610, L100.0100, L500.4050 ####[facility] [address] [place], [address] T PROT 7.1 g/dL Normal 5.9-8.4 [facility] Comment on above: Performed By: #### L 504.2610, L100.0100, L500.4050 ####[facility] [address] [place], [address] Urea nitrogen [Mass/Vol] 7 mg/dL Normal 4-19 [facility] Comment on above: Performed By: #### L 504.2610, L100.0100, L500.4050 ####[facility] [address] [place], [address] Eosinophil percentageOrdered By: Adyen Bosch on 06-29-2025 Eosinophils/100 WBC (Bld) 1.9 % 0-5 [facility] Erythrocyte distribution wid th ratioOrdered By: Ayden Bosch on 06-29-2025 Erythrocyte distribution width (RBC) [Ratio] 12.4 % 11.6-14.6 [facility] Erythrocyte distribution wid th standard deviationOrdered By: Ayden Bosch on 06-29-2025 Erythrocyte distribution width (RBC) [Ratio] 39.4 fl 35.1-43.9 [facility] Glomerular filtration rate ( GFR) estimation/1.73 sq m using serum, plasma, or whole bOrdered By: Ayden Bosch on 06-29-2025 GFR/1.73 sq M.predicted among non-blacks MDRD (S/P/Bld) [Vol rate/Area] 107 mL/min/{1.73_m2} >60 [facility] Comment on above: mL/min/1.73m2 CKD-EP I Creatinine Equation (2020) Hematocrit Auto (Bld) [Volum e fraction]Ordered By: Ayden Bosch on 06-29-2025 Hematocrit (Bld) [Volume fraction] 35.5 % Low 40-54 [facility] Hemoglobin measurementOrdere d By: Ayden Bosch on 06-29-2025 Hemoglobin (Bld) [Mass/Vol] 12.6 g/dL Low 13.0-16. 5 [facility] Immature granulocytes/100 WB C Auto (Bld)Ordered By: Ayden Bosch on 06-29-2025 Immature granulocytes/100 WBC (Bld) 0.300 % 0.0-0.9 [facility] Comment on above: IG% - Immature Granu locytes (promyelocytes, myelocytes and metamyelocytes) > 1% indicates that a LEFT SHIFT is Present. LDHon 06-29-2025 LDH 208 U/L Normal 87-241 [facility] Comment on above: Order Comment: 1 Performed By: #### L 504.2610, L100.0100, L500.4050 ####[facility] [address] [place], [address] Laboratory - Chemistry and C hemistry - challengeOrdered By: Ayden Bosch on 06-29-2025 AST [Catalytic activity/Vol] 55 U/L High <38 [facility] Laboratory - Hematology and Cell countsOrdered By: Ayden Bosch on 06-29-2025 Anisocytosis Ql (Bld) 1+ [facility] Lactate dehydrogenase (LDH) measurementOrdered By: Ayden Bosch on 06-29-2025 LDH [Catalytic activity/Vol] 208 U/L 87-241 [facility] MCV (mean corpuscular volume ) determinationOrdered By: Ayden Bosch on 06-29-2025 MCV (RBC) [Entitic vol] 88.3 fL 80-94 [facility] Mean corpuscular hemoglobin (MCH) determinationOrdered By: Ayden Bosch on 06-29-2025 MCH (RBC) [Entitic mass] 31.3 pg 27.0-32.0 [facility] Mean corpuscular hemoglobin concentration (MCHC) determinationOrdered By: Ayden Bosch on 06-29-2025 MCHC (RBC) [Mass/Vol] 35.5 g/dL 32-36 [facility] Mean platelet volume determi nationOrdered By: Ayden Bosch on 06-29-2025 Platelet mean volume (Bld) [Entitic vol] 9.2 fL 6.2-12.0 [facility] Monocyte percentageOrdered B y: Ayden Bosch on 06-29-2025 Monocytes/100 WBC (Bld) 19.2 % High 0-10 [facility] Neutrophil percentageOrdered By: Ayden Bosch on 08-21-2025 Neutrophils/100 WBC (Bld) 38.1 % Low 47-70 [facility] Nucleated red blood cell per centageOrdered By: Ayden Bosch on 06-29-2025 Nucleated RBC/100 WBC (Bld) [Ratio] 0 % 0-5 [facility] Oncology Visit Reporton 08 Oncology Visit Report Normal [facility] Platelet countOrdered By: Terra Bosch on 06-29-2025 Platelets (Bld) [#/Vol] 191 10*3/uL 150-450 [facility] Potassium measurement (mass/ volume)Ordered By: Ayden Bosch on 06-29-2025 Potassium (Unsp spec) [Mass/Vol] 3.9 mmol/L 3.3-5.1 [facility] RBC Auto (Bld) [#/Vol]Ordere d By: Ayden Bosch on 06-29-2025 RBC (Bld) [#/Vol] 4.02 10*6/uL Low 4.6-6.2 [facility] Serum creatinine measurement (mass/volume)Ordered By: Ayden Bosch on 06-29-2025 Creatinine [Mass/Vol] 0.54 mg/dL Low 0.70-1.20 [facility] Serum globulin measurementOr dered By: Ayden Bosch on 06-29-2025 Globulin (S) [Mass/Vol] 3.2 g/dL 2.2-4.2 [facility] Serum glucose measurement (m ass/volume)Ordered By: Ayden Bosch on 06-29-2025 Glucose [Mass/Vol] 101 mg/dL High 70-99 [facility] Serum or plasma alanine champagne otransferase (ALT) measurementOrdered By: Ayden Bosch on 06-29-2025 ALT [Catalytic activity/Vol] 51 U/L High <47 [facility] Serum or plasma albumin francoise urement (mass/volume)Ordered By: Ayden Bosch on 06-29-2025 Albumin [Mass/Vol] 3.9 g/dL 3.4-4.8 [facility] Serum or plasma albumin/glob ulin mass ratioOrdered By: Ayden Bosch on 06-29-2025 Albumin/Globulin [Mass ratio] 1.2 {ratio} 0.9-2.4 [facility] Serum or plasma alkaline mariola sphatase measurementOrdered By: Ayden Bosch on 06-29-2025 ALP [Catalytic activity/Vol] 126 U/L 40-129 [facility] Serum or plasma calcium francoise urement (mass/volume)Ordered By: Ayden Bosch on 06-29-2025 Calcium [Mass/Vol] 9.2 mg/dL 7.6-11.0 [facility] Serum or plasma urea nitroge n measurement (mass/volume)Ordered By: Ayden Bosch on 06-29-2025 Urea nitrogen [Mass/Vol] 7 mg/dL 4-19 [facility] Sodium levelOrdered By: Cam Bosch on 06-29-2025 Sodium [Moles/Vol] 132 mmol/L Low 133-145 [facility] Total proteinOrdered By: Ramón Bosch on 06-29-2025 Protein [Mass/Vol] 7.1 g/dL 5.9-8.4 [facility] White blood cell (WBC) count Ordered By: Ayden Bosch on 06-29-2025 WBC (Bld) [#/Vol] 3.1 10*3/uL Low 4.4-11.0 [facility] Absolute lymphocyte countOrd ered By: Ayden Bosch on 06-14-2025 Lymphocytes Auto (Unsp spec) [#/Vol] 0.97 10*3/uL 0.83-4.51 [facility] Absolute neutrophil countOrd ered By: Ayden Bosch on 06-14-2025 Neutrophils (Bld) [#/Vol] 11.8 10*3/uL High 2.0-7.7 [facility] Anion gap in Serum or Plasma Ordered By: Ayden Bosch on 06-14-2025 Anion gap [Moles/Vol] 11 mmol/L 5-15 [facility] Automated lymphocyte count a s percentage of total leukocytesOrdered By: Ayden Bosch on 06-14-2025 Lymphocytes/100 WBC Auto (Unsp spec) 7.0 % Low 19-41 [facility] BUN/creatinine ratioOrdered By: Ayden Bosch on 06-14-2025 Urea nitrogen/Creatinine [Mass ratio] 23.7 mg/mg High 10-20 [facility] Basophil percentageOrdered B y: Ayden Bosch on 06-14-2025 Basophils/100 WBC (Bld) 0.2 % 0-1 [facility] Bilirubin, totalOrdered By: Ayden Bosch on 06-14-2025 Bilirubin [Mass/Vol] 0.77 mg/dL 0.00-1.30 [facility] CBC W/Diff, Automatedon Absolute Lymph 0.97 X10 3/uL Normal 0.83-4.51 [facility] Comment on above: Performed By: #### L 100.0100, L501.9520, L501.2300, L500.4050 ####[facility] [address] [place], [address] Absolute Neut 11.8 X10 3/uL High 2.0-7.7 [facility] Comment on above: Performed By: #### L 100.0100, L501.9520, L501.2300, L500.4050 ####[facility] [address] [place], [address] Basophils/100 WBC (Bld) 0.2 % Normal 0-1 [facility] Comment on above: Performed By: #### L 100.0100, L501.9520, L501.2300, L500.4050 ####[facility] [address] [place], [address] Eosinophils/100 WBC (Bld) 0.0 % Normal 0-5 [facility] Comment on above: Performed By: #### L 100.0100, L501.9520, L501.2300, L500.4050 ####[facility] [address] [place], [address] Erythrocyte distribution width (RBC) [Ratio] 13.0 % Normal 11.6-14.6 [facility] Comment on above: Performed By: #### L 100.0100, L501.9520, L501.2300, L500.4050 ####[facility] [address] [place], [address] Hematocrit (Bld) [Volume fraction] 40.3 % Normal 40-54 [facility] Comment on above: Performed By: #### L 100.0100, L501.9520, L501.2300, L500.4050 ####[facility] [address] [place], [address] Hemoglobin (Bld) [Mass/Vol] 14.2 g/dL Normal 13.0-16. 5 [facility] Comment on above: Performed By: #### L 100.0100, L501.9520, L501.2300, L500.4050 ####[facility] [address] [place], [address] IG% 0.600 Normal 0.0-0.9 [facility] Comment on above: Result Comment: IG% - Immature Granulocytes (promyelocytes, myelocytes andmetamyelocytes) > 1% indicates that a LEFT SHIFT is Present. Performed By: #### L 100.0100, L501.9520, L501.2300, L500.4050 ####[facility] [address] [place], [address] Lymphocytes/100 WBC (Bld) 7.0 % Low 19-41 [facility] Comment on above: Performed By: #### L 100.0100, L501.9520, L501.2300, L500.4050 ####[facility] [address] [place], [address] MCH (RBC) [Entitic mass] 31.0 pg Normal 27.0-32.0 [facility] Comment on above: Performed By: #### L 100.0100, L501.9520, L501.2300, L500.4050 ####[facility] [address] [place], [address] MCHC (RBC) [Mass/Vol] 35.2 g/dL Normal 32-36 [facility] Comment on above: Performed By: #### L 100.0100, L501.9520, L501.2300, L500.4050 ####[facility] [address] [place], [address] MCV (RBC) [Entitic vol] 88.0 fL Normal 80-94 [facility] Comment on above: Performed By: #### L 100.0100, L501.9520, L501.2300, L500.4050 ####[facility] [address] [place], [address] Monocytes/100 WBC (Bld) 6.7 % Normal 0-10 [facility] Comment on above: Performed By: #### L 100.0100, L501.9520, L501.2300, L500.4050 ####[facility] [address] [place], [address] Neutrophils/100 WBC (Bld) 85.5 % High 47-70 [facility] Comment on above: Performed By: #### L 100.0100, L501.9520, L501.2300, L500.4050 ####[facility] [address] [place], [address] Nucleated RBC (Bld) [#/Vol] 0 10*3/uL Normal 0-5 [facility] Comment on above: Performed By: #### L 100.0100, L501.9520, L501.2300, L500.4050 ####[facility] [address] [place], [address] Platelet mean volume (Bld) [Entitic vol] 9.8 fL Normal 6.2-12.0 [facility] Comment on above: Performed By: #### L 100.0100, L501.9520, L501.2300, L500.4050 ####[facility] [address] [place], [address] Platelets (Bld) [#/Vol] 321 10*3/uL Normal 150-450 [facility] Comment on above: Performed By: #### L 100.0100, L501.9520, L501.2300, L500.4050 ####[facility] [address] [place], [address] RBC (Bld) [#/Vol] 4.58 10*6/uL Low 4.6-6.2 [facility] Comment on above: Performed By: #### L 100.0100, L501.9520, L501.2300, L500.4050 ####[facility] [address] [place], [address] RDW SD 41.5 fl Normal 35.1-43.9 [facility] Comment on above: Performed By: #### L 100.0100, L501.9520, L501.2300, L500.4050 ####[facility] [address] [place], [address] WBC (Bld) [#/Vol] 13.8 10*3/uL High 4.4-11.0 [facility] Comment on above: Performed By: #### L 100.0100, L501.9520, L501.2300, L500.4050 ####[facility] [address] [place], [address] Absolute Neut Normal 2.0-7.7 [facility] Comment on above: Result Comment: DUPL ICATE ORDER, COMPLETED @06/14/25755 Performed By: #### L 100.0100, L500.4050 ####[facility] [address] [place], [address] HCT Normal 40-54 [facility] Comment on above: Result Comment: DUPL ICATE ORDER, COMPLETED @06/14/25 0756 Performed By: #### L 100.0100, L500.4050 ####[facility] [address] [place], [address] HGB Normal 13.0-16.5 [facility] Comment on above: Result Comment: DUPL ICATE ORDER, COMPLETED @06/14/256 Performed By: #### L 100.0100, L500.4050 ####[facility] [address] [place], [address] MCH Normal 27.0-32.0 [facility] Comment on above: Result Comment: DUPL ICATE ORDER, COMPLETED @06/14/25755 Performed By: #### L 100.0100, L500.4050 ####[facility] [address] [place], [address] MCHC Normal 32-36 [facility] Comment on above: Result Comment: DUPL ICATE ORDER, COMPLETED @06/14/25755 Performed By: #### L 100.0100, L500.4050 ####[facility] [address] [place], [address] MCV Normal 80-94 [facility] Comment on above: Result Comment: DUPL ICATE ORDER, COMPLETED @06/14/25755 Performed By: #### L 100.0100, L500.4050 ####[facility] [address] [place], [address] NEUT% Normal 47-70 [facility] Comment on above: Result Comment: DUPL ICATE ORDER, COMPLETED @06/14/25755 Performed By: #### L 100.0100, L500.4050 ####[facility] [address] [place], [address] PLT Normal 150-450 [facility] Comment on above: Result Comment: DUPL ICATE ORDER, COMPLETED @06/14/25755 Performed By: #### L 100.0100, L500.4050 ####[facility] [address] [place], [address] RBC Normal 4.6-6.2 [facility] Comment on above: Result Comment: DUPL ICATE ORDER, COMPLETED @06/14/25755 Performed By: #### L 100.0100, L500.4050 ####[facility] [address] [place], [address] RDW CV Normal 11.6-14.6 [facility] Comment on above: Result Comment: DUPL ICATE ORDER, COMPLETED @06/14/25755 Performed By: #### L 100.0100, L500.4050 ####[facility] [address] [place], [address] RDW SD Normal 35.1-43.9 [facility] Comment on above: Result Comment: DUPL ICATE ORDER, COMPLETED @06/14/25755 Performed By: #### L 100.0100, L500.4050 ####[facility] [address] [place], [address] WBC Normal 4.4-11.0 [facility] Comment on above: Result Comment: DUPL ICATE ORDER, COMPLETED @06/14/25755 Performed By: #### L 100.0100, L500.4050 ####[facility] [address] [place], [address] Carbon dioxide, total [Moles /volume] in Central venous bloodOrdered By: Ayden Bosch on 06-14-2025 CO2 [Moles/Vol] 22.3 mmol/L 21.0-32.0 [facility] Chloride assayOrdered By: Terra Bosch on 06-14-2025 Chloride [Moles/Vol] 95 mmol/L Low 98-108 [facility] Comprehensive Metabolic Prof ilon 06-14-2025 Albumin [Mass/Vol] 3.8 g/dL Normal 3.4-4.8 [facility] Comment on above: Performed By: #### L 100.0100, L501.9520, L501.2300, L500.4050 ####[facility] [address] [place], [address] Albumin/Globulin [Mass ratio] 1.1 {ratio} Normal 0.9-2.4 [facility] Comment on above: Performed By: #### L 100.0100, L501.9520, L501.2300, L500.4050 ####[facility] [address] [place], [address] ALK PHOS 99 U/L Normal 40-129 [facility] Comment on above: Performed By: #### L 100.0100, L501.9520, L501.2300, L500.4050 ####[facility] [address] [place], [address] ALT [Catalytic activity/Vol] 21 U/L Normal <=46 [facility] Comment on above: Performed By: #### L 100.0100, L501.9520, L501.2300, L500.4050 ####[facility] [address], [address] AST [Catalytic activity/Vol] 31 U/L Normal <=37 [facility] Comment on above: Performed By: #### L 100.0100, L501.9520, L501.2300, L500.4050 ####[facility] [address] [place], [address] Bilirubin [Mass/Vol] 0.77 mg/dL Normal 0.00-1.30 [facility] Comment on above: Performed By: #### L 100.0100, L501.9520, L501.2300, L500.4050 ####[facility] [address] [place], [address] BUN/CRE 23.7 RATIO High 10-20 [facility] Comment on above: Performed By: #### L 100.0100, L501.9520, L501.2300, L500.4050 ####[facility] [address] [place], [address] Calcium [Mass/Vol] 9.3 mg/dL Normal 7.6-11.0 [facility] Comment on above: Performed By: #### L 100.0100, L501.9520, L501.2300, L500.4050 ####[facility] [address] [place], [address] Chloride [Moles/Vol] 95 mmol/L Low 98-108 [facility] Comment on above: Performed By: #### L 100.0100, L501.9520, L501.2300, L500.4050 ####[facility] [address] [place], [address] CO2 [Moles/Vol] 22.3 mmol/L Normal 21.0-32.0 [facility] Comment on above: Performed By: #### L 100.0100, L501.9520, L501.2300, L500.4050 ####[facility] [address] [place], [address] Creatinine [Mass/Vol] 0.55 mg/dL Low 0.70-1.20 [facility] Comment on above: Performed By: #### L 100.0100, L501.9520, L501.2300, L500.4050 ####[facility] [address] [place], [address] ECRCL 57.54 ml/min Normal 50-250 [facility] Comment on above: Performed By: #### L 100.0100, L501.9520, L501.2300, L500.4050 ####[facility] [address] [place], [address] GAP 11 Normal 5-15 [facility] Comment on above: Performed By: #### L 100.0100, L501.9520, L501.2300, L500.4050 ####[facility] [address] [place], [address] GFR/1.73 sq M.predicted among non-blacks MDRD (S/P/Bld) [Vol rate/Area] 107 mL/min/{1.73_m2} Normal >60 [facility] Comment on above: Result Comment: mL/m in/1.73m2 CKD-EPI Creatinine Equation (2020) Performed By: #### L 100.0100, L501.9520, L501.2300, L500.4050 ####[facility] [address] [place], [address] Globulin (S) [Mass/Vol] 3.5 g/dL Normal 2.2-4.2 [facility] Comment on above: Performed By: #### L 100.0100, L501.9520, L501.2300, L500.4050 ####[facility] [address] [place], [address] Glucose [Mass/Vol] 116 mg/dL High 70-99 [facility] Comment on above: Performed By: #### L 100.0100, L501.9520, L501.2300, L500.4050 ####[facility] [address] [place], [address] Potassium [Moles/Vol] 4.1 mmol/L Normal 3.3-5.1 [facility] Comment on above: Performed By: #### L 100.0100, L501.9520, L501.2300, L500.4050 ####[facility] [address] [place], [address] Sodium [Moles/Vol] 128 mmol/L Low 133-145 [facility] Comment on above: Performed By: #### L 100.0100, L501.9520, L501.2300, L500.4050 ####[facility] [address] [place], [address] T PROT 7.3 g/dL Normal 5.9-8.4 [facility] Comment on above: Performed By: #### L 100.0100, L501.9520, L501.2300, L500.4050 ####[facility] [address] [place], [address] Urea nitrogen [Mass/Vol] 13 mg/dL Normal 4-19 [facility] Comment on above: Performed By: #### L 100.0100, L501.9520, L501.2300, L500.4050 ####[facility] [address] [place], [address] ALB Normal 3.4-4.8 [facility] Comment on above: Result Comment: DUPL ICATE ORDER, COMPLETED @06/14/25755 Performed By: #### L 100.0100, L500.4050 ####[facility] [address] [place], [address] ALK PHOS Normal 40-129 [facility] Comment on above: Result Comment: DUPL ICATE ORDER, COMPLETED @06/14/25755 Performed By: #### L 100.0100, L500.4050 ####[facility] [address] [place], [address] ALT Normal <=46 [facility] Comment on above: Result Comment: DUPL ICATE ORDER, COMPLETED @06/14/25755 Performed By: #### L 100.0100, L500.4050 ####[facility] [address] [place], [address] AST Normal <=37 [facility] Comment on above: Result Comment: DUPL ICATE ORDER, COMPLETED @06/14/25755 Performed By: #### L 100.0100, L500.4050 ####[facility] [address] [place], [address] BUN Normal 4-19 [facility] Comment on above: Result Comment: DUPL ICATE ORDER, COMPLETED @06/14/25755 Performed By: #### L 100.0100, L500.4050 ####[facility] [address] [place], [address] BUN/CRE Normal 10-20 [facility] Comment on above: Result Comment: DUPL ICATE ORDER, COMPLETED @06/14/25755 Performed By: #### L 100.0100, L500.4050 ####[facility] [address] [place], [address] Calcium Normal 7.6-11.0 [facility] Comment on above: Result Comment: DUPL ICATE ORDER, COMPLETED @06/14/25755 Performed By: #### L 100.0100, L500.4050 ####[facility] [address] [place], [address] CL Normal 98-108 [facility] Comment on above: Result Comment: DUPL ICATE ORDER, COMPLETED @06/14/25755 Performed By: #### L 100.0100, L500.4050 ####[facility] [address] [place], [address] CO2 Normal 21.0-32.0 [facility] Comment on above: Result Comment: DUPL ICATE ORDER, COMPLETED @06/14/25755 Performed By: #### L 100.0100, L500.4050 ####[facility] [address] [place], [address] CREAT,SERUM Normal 0.70-1.20 [facility] Comment on above: Result Comment: DUPL ICATE ORDER, COMPLETED @06/14/25755 Performed By: #### L 100.0100, L500.4050 ####[facility] [address] [place], [address] eGFR Normal >60 [facility] Comment on above: Result Comment: DUPL ICATE ORDER, COMPLETED @06/14/25755 Performed By: #### L 100.0100, L500.4050 ####[facility] [address] [place], [address] GAP Normal 5-15 [facility] Comment on above: Result Comment: DUPL ICATE ORDER, COMPLETED @06/14/25755 Performed By: #### L 100.0100, L500.4050 ####[facility] [address] [place], [address] GLU Normal 70-99 [facility] Comment on above: Result Comment: DUPL ICATE ORDER, COMPLETED @06/14/25755 Performed By: #### L 100.0100, L500.4050 ####[facility] [address] [place], [address] Potassium Normal 3.3-5.1 [facility] Comment on above: Result Comment: DUPL ICATE ORDER, COMPLETED @06/14/25755 Performed By: #### L 100.0100, L500.4050 ####[facility] [address] [place], [address] T BILI Normal 0.00-1.30 [facility] Comment on above: Result Comment: DUPL ICATE ORDER, COMPLETED @06/14/25755 Performed By: #### L 100.0100, L500.4050 ####[facility] [address] [place], [address] T PROT Normal 5.9-8.4 [facility] Comment on above: Result Comment: DUPL ICATE ORDER, COMPLETED @06/14/25755 Performed By: #### L 100.0100, L500.4050 ####[facility] [address] [place], [address] Comprehensive Metabolic Profil Normal 133-145 [facility] Comment on above: Result Comment: DEV WILSON ORDER, COMPLETED @06/14/25755 Performed By: #### L 100.0100, L500.4050 ####[facility] [address] [place], [address] Eosinophil percentageOrdered By: Ayden Bosch on 06-14-2025 Eosinophils/100 WBC (Bld) 0.0 % 0-5 [facility] Erythrocyte distribution wid th ratioOrdered By: Ayden Bosch on 06-14-2025 Erythrocyte distribution width (RBC) [Ratio] 13.0 % 11.6-14.6 [facility] Erythrocyte distribution wid th standard deviationOrdered By: Ayden Boshc on 06-14-2025 Erythrocyte distribution width (RBC) [Ratio] 41.5 fl 35.1-43.9 [facility] Glomerular filtration rate ( GFR) estimation/1.73 sq m using serum, plasma, or whole bOrdered By: Ayden Bosch on 06-14-2025 GFR/1.73 sq M.predicted among non-blacks MDRD (S/P/Bld) [Vol rate/Area] 107 mL/min/{1.73_m2} >60 [facility] Comment on above: mL/min/1.73m2 CKD-EP I Creatinine Equation (2020) Hematocrit Auto (Bld) [Volum e fraction]Ordered By: Ayden Bosch on 06-14-2025 Hematocrit (Bld) [Volume fraction] 40.3 % 40-54 [facility] Hemoglobin measurementOrdere d By: Ayden Bosch on 06-14-2025 Hemoglobin (Bld) [Mass/Vol] 14.2 g/dL 13.0-16. 5 [facility] Immature granulocytes/100 WB C Auto (Bld)Ordered By: Ayden Bosch on 06-14-2025 Immature granulocytes/100 WBC (Bld) 0.600 % 0.0-0.9 [facility] Comment on above: IG% - Immature Granu locytes (promyelocytes, myelocytes and metamyelocytes) > 1% indicates that a LEFT SHIFT is Present. Laboratory - Chemistry and C hemistry - challengeOrdered By: Ayden Bosch on 06-14-2025 AST [Catalytic activity/Vol] 31 U/L <38 [facility] MCV (mean corpuscular volume ) determinationOrdered By: Ayden Bosch on 06-14-2025 MCV (RBC) [Entitic vol] 88.0 fL 80-94 [facility] Mean corpuscular hemoglobin (MCH) determinationOrdered By: Ayden Bosch on 06-14-2025 MCH (RBC) [Entitic mass] 31.0 pg 27.0-32.0 [facility] Mean corpuscular hemoglobin concentration (MCHC) determinationOrdered By: Ayden Bosch on 06-14-2025 MCHC (RBC) [Mass/Vol] 35.2 g/dL 32-36 [facility] Mean platelet volume determi nationOrdered By: Ayden Bosch on 06-14-2025 Platelet mean volume (Bld) [Entitic vol] 9.8 fL 6.2-12.0 [facility] Monocyte percentageOrdered B y: Ayden Bosch on 06-14-2025 Monocytes/100 WBC (Bld) 6.7 % 0-10 [facility] Neutrophil percentageOrdered By: Ayden Bosch on 06-14-2025 Neutrophils/100 WBC (Bld) 85.5 % High 47-70 [facility] Nucleated red blood cell per centageOrdered By: Ayden Bosch on 06-14-2025 Nucleated RBC/100 WBC (Bld) [Ratio] 0 % 0-5 [facility] Oncology Visit Reporton 08-0 Oncology Visit Report Normal [facility] Phosphoruson 06-14-2025 Phosphate [Mass/Vol] 3.4 mg/dL Normal 2.7-4.5 [facility] Comment on above: Performed By: #### L 100.0100, L501.9520, L501.2300, L500.4050 ####[facility] [address] [place], [address] Platelet countOrdered By: Terra Bosch on 06-14-2025 Platelets (Bld) [#/Vol] 321 10*3/uL 150-450 [facility] Potassium measurement (mass/ volume)Ordered By: Ayden Bosch on 06-14-2025 Potassium (Unsp spec) [Mass/Vol] 4.1 mmol/L 3.3-5.1 [facility] RBC Auto (Bld) [#/Vol]Ordere d By: Ayden Bosch on 06-14-2025 RBC (Bld) [#/Vol] 4.58 10*6/uL Low 4.6-6.2 [facility] Serum creatinine measurement (mass/volume)Ordered By: Ayden Bosch on 06-14-2025 Creatinine [Mass/Vol] 0.55 mg/dL Low 0.70-1.20 [facility] Serum globulin measurementOr dered By: Ayden Bosch on 06-14-2025 Globulin (S) [Mass/Vol] 3.5 g/dL 2.2-4.2 [facility] Serum glucose measurement (m ass/volume)Ordered By: Ayden Bosch on 06-14-2025 Glucose [Mass/Vol] 116 mg/dL High 70-99 [facility] Serum or plasma alanine champagne otransferase (ALT) measurementOrdered By: Ayden Bosch on 06-14-2025 ALT [Catalytic activity/Vol] 21 U/L <47 [facility] Serum or plasma albumin francoise urement (mass/volume)Ordered By: Ayden Bosch on 06-14-2025 Albumin [Mass/Vol] 3.8 g/dL 3.4-4.8 [facility] Serum or plasma albumin/glob ulin mass ratioOrdered By: Ayden Bosch on 06-14-2025 Albumin/Globulin [Mass ratio] 1.1 {ratio} 0.9-2.4 [facility] Serum or plasma alkaline mariola sphatase measurementOrdered By: Ayden Bosch on 06-14-2025 ALP [Catalytic activity/Vol] 99 U/L 40-129 [facility] Serum or plasma calcium francoise urement (mass/volume)Ordered By: Ayden Bosch on 06-14-2025 Calcium [Mass/Vol] 9.3 mg/dL 7.6-11.0 [facility] Serum or plasma urea nitroge n measurement (mass/volume)Ordered By: Ayden Bosch on 06-14-2025 Urea nitrogen [Mass/Vol] 13 mg/dL 4-19 [facility] Sodium levelOrdered By: Cam Bosch on 06-14-2025 Sodium [Moles/Vol] 128 mmol/L Low 133-145 [facility] TSH DL <= 0.005 mIU/L QnOrde red By: Ayden Bosch on 06-14-2025 TSH Qn 1.900 uIU/mL 0.300-4.20 0 [facility] Thyroid Stim Hormone (TSH)on 06-14-2025 TSH 1.900 uIU/mL Normal 0.300-4.20 0 [facility] Comment on above: Performed By: #### L 100.0100, L501.9520, L501.2300, L500.4050 ####[facility] [address] [place], [address] Total proteinOrdered By: Raómn Bosch on 06-14-2025 Protein [Mass/Vol] 7.3 g/dL 5.9-8.4 [facility] White blood cell (WBC) count Ordered By: Ayden Bosch on 06-14-2025 WBC (Bld) [#/Vol] 13.8 10*3/uL High 4.4-11.0 [facility] Oncology Visit Reporton Oncology Visit Report Normal [facility] CXR for Line Placementon CXR for Line Placement Normal [facility] Discharge Instructionon 05-10 Discharge Instruction Normal [facility] MR/POSTOP.ANEon 06-05-2025 MR/POSTOP.ANE Normal [facility] MR/JNEAQXIN3bu 06-05-2025 MR/POSTOPAN2 Normal [facility] Operative Reporton Operative Report Normal [facility] MR/PAT.ANEon 06-02-2025 MR/PAT.ANE Normal [facility] MR/PAT.ANE Normal [facility] Surgery Visit Reporton 05-31 Surgery Visit Report Normal [facility] Oncology Visit Reporton 05-10 Oncology Visit Report Normal [facility] SURG PATH REQUESTon 05-03-20 Case Report Normal [facility] Comment on above: Result Comment: Surg ical Pathology Report Case: [id number] Authorizing Provider: Ayden Bosch MD Collected: 05/03/2025 03:14 PM Ordering Location: [facility] Received: 05/03/2025 03:14 PM [place] Pathologist: Jadon Bautista MD, PhD Specimen: SURG PATH, Outside Block; Lung Cancer Biomarker Panel (PULMOL FFPE, PD-L1 IHC (22C3, Keytruda); HER2 IHC, NTRK Fusion Panel Performed By: #### S URGP #### [facility] (DEFAULT) [address] [place] [address] Clinical History Request received fro laisha Bosch MD of [facility] for Lung Cancer Biomarker Panel/ PULMOL (FFPE); PD-L1 IHC (22C3, Keytruda), HER2 IHC, and NTRK Fusion Panel on the paraffin block received from [facility]. Pre-Op Diagnosis: left lung mass. Normal [facility] Comment on above: Performed By: #### S URGP #### [facility] (DEFAULT) [address] [place] [address] Diagnosis Comments Normal [facility] Comment on above: Result Comment: HER2 immunohistochemical expression (3+) using this assay may be an indication for use of trastuzumab deruxtecan-nxki in NSCLC and other solid tumors (Oncologist 2023Jun 13;29(8):667-671). Correlation with HER2 mutation status is recommended. Performed By: #### S URGP #### [facility] (DEFAULT) [address] [address] Gross Description Normal [facility] Comment on above: Result Comment: The following material(s) are received from [facility], [address] [place] [address], with an identifying surgical pathology report: 1 paraffin block marked A1, labeled [id number]. The paraffin block that was received is submitted to the [facility] histology/IHC laboratory for recutting and additional staining: Lung Cancer Biomarker Panel /PULMOL (FFPE) PULNGS & ALK/MET/ROS FISH; PD-L1 IHC (22C3, Keytruda); Her2 IHC, NTRK Fusion Panel. Material with be returned upon completion of review. Grosser for this case was: Carla House Performed By: #### S URGP #### [facility] (DEFAULT) [address] [place] [address] Microscopic Description Normal [facility] Comment on above: Result Comment: PD-L [...] paraffin-embedded tissues, using clone [id number] (rabbit monoclonal, [place]) on a [place] auto-stainer. Membrane staining of tumor cells is [...] developed by and are performed at the [facility], [address], [address], [place] [address]. All tests reported here, except those addressing [...] research. Performed By: #### S URGP #### [facility] (DEFAULT) [address] [place] [address] Pathologic Diagnosis [facility] Comment on above: Result Comment: Outs jennifer block: [id number] (04/07/2025) A. Left Lung, Mass, Biopsy: PD-L1 [...] EDT Performed By: #### S URGP #### [facility] (DEFAULT) [address] [place] [address] Professional Interpretation Performed at: [facility] Comment on above: Result Comment: [facility] For Immediate Release to Patient's [facility]? Yes [address] [place] [address] Performed By: #### S URGP #### [facility] (DEFAULT) [address] [place] [address] Absolute lymphocyte countOrd ered By: Ayden Bosch on 05-01-2025 Lymphocytes Auto (Unsp spec) [#/Vol] 1.31 10*3/uL 0.83-4.51 [facility] Absolute neutrophil countOrd ered By: Ayden Bosch on 05-01-2025 Neutrophils (Bld) [#/Vol] 4.9 10*3/uL 2.0-7.7 [facility] Anion gap in Serum or Plasma Ordered By: Ayden Bosch on 05-01-2025 Anion gap [Moles/Vol] 10 mmol/L 5-15 [facility] Automated lymphocyte count a s percentage of total leukocytesOrdered By: Ayden Bosch on 05-01-2025 Lymphocytes/100 WBC Auto (Unsp spec) 17.8 % Low 19-41 [facility] BUN/creatinine ratioOrdered By: Ayden Bosch on 05-01-2025 Urea nitrogen/Creatinine [Mass ratio] 9.8 mg/mg Low 10-20 [facility] Basophil percentageOrdered B y: Ayden Bosch on 05-01-2025 Basophils/100 WBC (Bld) 0.7 % 0-1 [facility] Bilirubin, totalOrdered By: Ayden Bosch on 05-01-2025 Bilirubin [Mass/Vol] 1.00 mg/dL 0.00-1.30 [facility] CBC W/Diff, Automatedon 04-10 Absolute Lymph 1.31 X10 3/uL Normal 0.83-4.51 [facility] Comment on above: Performed By: #### L 500.4050, L504.2610, L100.0100 ####[facility] [address] [place], [address] Absolute Neut 4.9 X10 3/uL Normal 2.0-7.7 [facility] Comment on above: Performed By: #### L 500.4050, L504.2610, L100.0100 ####[facility] [address] [place], [address] Basophils/100 WBC (Bld) 0.7 % Normal 0-1 [facility] Comment on above: Performed By: #### L 500.4050, L504.2610, L100.0100 ####[facility] [address] [place], [address] Eosinophils/100 WBC (Bld) 0.8 % Normal 0-5 [facility] Comment on above: Performed By: #### L 500.4050, L504.2610, L100.0100 ####[facility] [address] [place], [address] Erythrocyte distribution width (RBC) [Ratio] 14.2 % Normal 11.6-14.6 [facility] Comment on above: Performed By: #### L 500.4050, L504.2610, L100.0100 ####[facility] [address] [place], [address] Hematocrit (Bld) [Volume fraction] 42.2 % Normal 40-54 [facility] Comment on above: Performed By: #### L 500.4050, L504.2610, L100.0100 ####[facility] [address] [place], [address] Hemoglobin (Bld) [Mass/Vol] 14.6 g/dL Normal 13.0-16. 5 [facility] Comment on above: Performed By: #### L 500.4050, L504.2610, L100.0100 ####[facility] [address] [place], [address] IG% 0.300 Normal 0.0-0.9 [facility] Comment on above: Result Comment: IG% - Immature Granulocytes (promyelocytes, myelocytes andmetamyelocytes) > 1% indicates that a LEFT SHIFT is Present. Performed By: #### L 500.4050, L504.2610, L100.0100 ####[facility] [address] [place], [address] Lymphocytes/100 WBC (Bld) 17.8 % Low 19-41 [facility] Comment on above: Performed By: #### L 500.4050, L504.2610, L100.0100 ####[facility] [address] [place], [address] MCH (RBC) [Entitic mass] 30.7 pg Normal 27.0-32.0 [facility] Comment on above: Performed By: #### L 500.4050, L504.2610, L100.0100 ####[facility] [address] [place], [address] MCHC (RBC) [Mass/Vol] 34.6 g/dL Normal 32-36 [facility] Comment on above: Performed By: #### L 500.4050, L504.2610, L100.0100 ####[facility] [address] [place], [address] MCV (RBC) [Entitic vol] 88.7 fL Normal 80-94 [facility] Comment on above: Performed By: #### L 500.4050, L504.2610, L100.0100 ####[facility] [address] [place], [address] Monocytes/100 WBC (Bld) 14.4 % High 0-10 [facility] Comment on above: Performed By: #### L 500.4050, L504.2610, L100.0100 ####[facility] [address] [place], [address] Neutrophils/100 WBC (Bld) 66.0 % Normal 47-70 [facility] Comment on above: Performed By: #### L 500.4050, L504.2610, L100.0100 ####[facility] [address] [place], [address] Nucleated RBC (Bld) [#/Vol] 0 10*3/uL Normal 0-5 [facility] Comment on above: Performed By: #### L 500.4050, L504.2610, L100.0100 ####[facility] [address] [place], [address] Platelet mean volume (Bld) [Entitic vol] 9.7 fL Normal 6.2-12.0 [facility] Comment on above: Performed By: #### L 500.4050, L504.2610, L100.0100 ####[facility] [address] [place], [address] Platelets (Bld) [#/Vol] 336 10*3/uL Normal 150-450 [facility] Comment on above: Performed By: #### L 500.4050, L504.2610, L100.0100 ####[facility] [address] [place], [address] RBC (Bld) [#/Vol] 4.76 10*6/uL Normal 4.6-6.2 [facility] Comment on above: Performed By: #### L 500.4050, L504.2610, L100.0100 ####[facility] [address] [place], [address] RDW SD 46.1 fl High 35.1-43.9 [facility] Comment on above: Performed By: #### L 500.4050, L504.2610, L100.0100 ####[facility] [address] [place], [address] WBC (Bld) [#/Vol] 7.4 10*3/uL Normal 4.4-11.0 [facility] Comment on above: Performed By: #### L 500.4050, L504.2610, L100.0100 ####[facility] [address] [place], [address] Carbon dioxide, total [Moles /volume] in Central venous bloodOrdered By: Ayden Bosch on 05-01-2025 CO2 [Moles/Vol] 24.2 mmol/L 21.0-32.0 [facility] Chloride assayOrdered By: Terra Bosch on 05-01-2025 Chloride [Moles/Vol] 97 mmol/L Low 98-108 [facility] Comprehensive Metabolic Prof ilon 05-01-2025 Albumin [Mass/Vol] 4.0 g/dL Normal 3.4-4.8 [facility] Comment on above: Performed By: #### L 500.4050, L504.2610, L100.0100 ####[facility] [address] [place], [address] Albumin/Globulin [Mass ratio] 1.1 {ratio} Normal 0.9-2.4 [facility] Comment on above: Performed By: #### L 500.4050, L504.2610, L100.0100 ####[facility] [address] [place], [address] ALK PHOS 106 U/L Normal 40-129 [facility] Comment on above: Performed By: #### L 500.4050, L504.2610, L100.0100 ####[facility] [address] [place], [address] ALT [Catalytic activity/Vol] 36 U/L Normal <=46 [facility] Comment on above: Performed By: #### L 500.4050, L504.2610, L100.0100 ####[facility] [address] [place], [address] AST [Catalytic activity/Vol] 52 U/L High <=37 [facility] Comment on above: Performed By: #### L 500.4050, L504.2610, L100.0100 ####[facility] [address] [place], [address] Bilirubin [Mass/Vol] 1.00 mg/dL Normal 0.00-1.30 [facility] Comment on above: Performed By: #### L 500.4050, L504.2610, L100.0100 ####[facility] [address] [place], [address] BUN/CRE 9.8 RATIO Low 10-20 [facility] Comment on above: Performed By: #### L 500.4050, L504.2610, L100.0100 ####[facility] [address] [place], [address] Calcium [Mass/Vol] 9.3 mg/dL Normal 7.6-11.0 [facility] Comment on above: Performed By: #### L 500.4050, L504.2610, L100.0100 ####[facility] [address], [address] Chloride [Moles/Vol] 97 mmol/L Low 98-108 [facility] Comment on above: Performed By: #### L 500.4050, L504.2610, L100.0100 ####[facility] [address] [place], [address] CO2 [Moles/Vol] 24.2 mmol/L Normal 21.0-32.0 [facility] Comment on above: Performed By: #### L 500.4050, L504.2610, L100.0100 ####[facility] [address] [place], [address] Creatinine [Mass/Vol] 0.69 mg/dL Low 0.70-1.20 [facility] Comment on above: Performed By: #### L 500.4050, L504.2610, L100.0100 ####[facility] [address] [place], [address] GAP 10 Normal 5-15 [facility] Comment on above: Performed By: #### L 500.4050, L504.2610, L100.0100 ####[facility] [address] [place], [address] GFR/1.73 sq M.predicted among non-blacks MDRD (S/P/Bld) [Vol rate/Area] 99 mL/min/{1.73_m2} Normal >60 [facility] Comment on above: Result Comment: mL/m in/1.73m2 CKD-EPI Creatinine Equation (2020) Performed By: #### L 500.4050, L504.2610, L100.0100 ####[facility] [address] [place], [address] Globulin (S) [Mass/Vol] 3.7 g/dL Normal 2.2-4.2 [facility] Comment on above: Performed By: #### L 500.4050, L504.2610, L100.0100 ####[facility] [address] [place], [address] Glucose [Mass/Vol] 91 mg/dL Normal 70-99 [facility] Comment on above: Performed By: #### L 500.4050, L504.2610, L100.0100 ####[facility] [address] [place], [address] Potassium [Moles/Vol] 4.8 mmol/L Normal 3.3-5.1 [facility] Comment on above: Performed By: #### L 500.4050, L504.2610, L100.0100 ####[facility] [address] [place], [address] Sodium [Moles/Vol] 132 mmol/L Low 133-145 [facility] Comment on above: Performed By: #### L 500.4050, L504.2610, L100.0100 ####[facility] [address] [place], [address] T PROT 7.7 g/dL Normal 5.9-8.4 [facility] Comment on above: Performed By: #### L 500.4050, L504.2610, L100.0100 ####[facility] [address] [place], [address] Urea nitrogen [Mass/Vol] 7 mg/dL Normal 4-19 [facility] Comment on above: Performed By: #### L 500.4050, L504.2610, L100.0100 ####[facility] [address] [place], [place], [address] Eosinophil percentageOrdered By: [facility] on 05-01-2025 Eosinophils/100 WBC (Bld) 0.8 % 0-5 [facility] Erythrocyte distribution wid th ratioOrdered By: [facility] on 05-01-2025 Erythrocyte distribution width (RBC) [Ratio] 14.2 % 11.6-14.6 [facility] Erythrocyte distribution wid th standard deviationOrdered By: [facility] on 05-01-2025 Erythrocyte distribution width (RBC) [Ratio] 46.1 fl High 35.1-43.9 [facility] Glomerular filtration rate ( GFR) estimation/1.73 sq m using serum, plasma, or whole bOrdered By: [facility] on 05-01-2025 GFR/1.73 sq M.predicted among non-blacks MDRD (S/P/Bld) [Vol rate/Area] 99 mL/min/{1.73_m2} >60 [facility] Comment on above: mL/min/1.73m2 CKD-EP I Creatinine Equation (2020) Hematocrit Auto (Bld) [Volum e fraction]Ordered By: [facility] on 05-01-2025 Hematocrit (Bld) [Volume fraction] 42.2 % 40-54 [facility] Hemoglobin measurementOrdere d By: [facility] on 05-01-2025 Hemoglobin (Bld) [Mass/Vol] 14.6 g/dL 13.0-16. 5 [facility] Immature granulocytes/100 WB C Auto (Bld)Ordered By: [facility] on 05-01-2025 Immature granulocytes/100 WBC (Bld) 0.300 % 0.0-0.9 [facility] Comment on above: IG% - Immature Granu locytes (promyelocytes, myelocytes and metamyelocytes) > 1% indicates that a LEFT SHIFT is Present. LDHon 05-01-2025 LDH 188 U/L Normal 87-241 [facility] Comment on above: Order Comment: 1 Performed By: #### L 500.4050, L504.2610, L100.0100 ####[facility] [address] [place], [address] Laboratory - Chemistry and C hemistry - challengeOrdered By: Ayden Bosch on 05-01-2025 AST [Catalytic activity/Vol] 52 U/L High <38 [facility] Lactate dehydrogenase (LDH) measurementOrdered By: Ayden Bosch on 05-01-2025 LDH [Catalytic activity/Vol] 188 U/L 87-241 [facility] MCV (mean corpuscular volume ) determinationOrdered By: Ayden Bosch on 05-01-2025 MCV (RBC) [Entitic vol] 88.7 fL 80-94 [facility] Mean corpuscular hemoglobin (MCH) determinationOrdered By: Ayden Bosch on 05-01-2025 MCH (RBC) [Entitic mass] 30.7 pg 27.0-32.0 [facility] Mean corpuscular hemoglobin concentration (MCHC) determinationOrdered By: Ayden Bosch on 05-01-2025 MCHC (RBC) [Mass/Vol] 34.6 g/dL 32-36 [facility] Mean platelet volume determi nationOrdered By: Ayden Bosch on 05-01-2025 Platelet mean volume (Bld) [Entitic vol] 9.7 fL 6.2-12.0 [facility] Monocyte percentageOrdered B y: Ayden Bosch on 05-01-2025 Monocytes/100 WBC (Bld) 14.4 % High 0-10 [facility] Neutrophil percentageOrdered By: Ayden Bosch on 05-01-2025 Neutrophils/100 WBC (Bld) 66.0 % 47-70 [facility] Nucleated red blood cell per centageOrdered By: Ayden Bosch on 05-01-2025 Nucleated RBC/100 WBC (Bld) [Ratio] 0 % 0-5 [facility] Oncology Visit Reporton 04-10 Oncology Visit Report Normal [facility] Platelet countOrdered By: Terra Bosch on 05-01-2025 Platelets (Bld) [#/Vol] 336 10*3/uL 150-450 [facility] Potassium measurement (mass/ volume)Ordered By: Ayden Bosch on 05-01-2025 Potassium (Unsp spec) [Mass/Vol] 4.8 mmol/L 3.3-5.1 [facility] RBC Auto (Bld) [#/Vol]Ordere d By: Ayden Bosch on 05-01-2025 RBC (Bld) [#/Vol] 4.76 10*6/uL 4.6-6.2 [facility] Serum creatinine measurement (mass/volume)Ordered By: Ayden Bosch on 05-01-2025 Creatinine [Mass/Vol] 0.69 mg/dL Low 0.70-1.20 [facility] Serum globulin measurementOr dered By: Ayden Bosch on 05-01-2025 Globulin (S) [Mass/Vol] 3.7 g/dL 2.2-4.2 [facility] Serum glucose measurement (m ass/volume)Ordered By: Ayden Bosch on 05-01-2025 Glucose [Mass/Vol] 91 mg/dL 70-99 [facility] Serum or plasma alanine champagne otransferase (ALT) measurementOrdered By: Ayden Bosch on 05-01-2025 ALT [Catalytic activity/Vol] 36 U/L <47 [facility] Serum or plasma albumin francoise urement (mass/volume)Ordered By: Ayden Bosch on 05-01-2025 Albumin [Mass/Vol] 4.0 g/dL 3.4-4.8 [facility] Serum or plasma albumin/glob ulin mass ratioOrdered By: Ayden Bosch on 05-01-2025 Albumin/Globulin [Mass ratio] 1.1 {ratio} 0.9-2.4 [facility] Serum or plasma alkaline mariola sphatase measurementOrdered By: Ayden Bosch on 05-01-2025 ALP [Catalytic activity/Vol] 106 U/L 40-129 [facility] Serum or plasma calcium francoise urement (mass/volume)Ordered By: Ayden Bosch on 05-01-2025 Calcium [Mass/Vol] 9.3 mg/dL 7.6-11.0 [facility] Serum or plasma urea nitroge n measurement (mass/volume)Ordered By: Ayden Bosch on 05-01-2025 Urea nitrogen [Mass/Vol] 7 mg/dL 4-19 [facility] Sodium levelOrdered By: Cam Bosch on 05-01-2025 Sodium [Moles/Vol] 132 mmol/L Low 133-145 [facility] Total proteinOrdered By: Ramón Bosch on 05-01-2025 Protein [Mass/Vol] 7.7 g/dL 5.9-8.4 [facility] White blood cell (WBC) count Ordered By: yAden Bosch on 05-01-2025 WBC (Bld) [#/Vol] 7.4 10*3/uL 4.4-11.0 [facility] Positron emission tomography scan reportOrdered By: Shaw Whitman on 04-27-2025 PT Unspecified body region [facility] Imaging Services [address] [place] [address] PET/CT Tumor Base -Thigh Init MR#: [id number] Acct: [id number] Name: PATRICK ANDRES Rep #: [id number] : 1955 M 70 From: Pet er Peer DO PCP: JESUS CALLAHAN [employer] Status: REG C LI Study:PET/CT Tumor Base -Thigh Init Date of E xam: 04/25/25 Exam# [id number] Ordering Dr: Jonathan Ledezma NP [employer] PROCEDURE: PET/CT TUMOR BASE -THIGH INIT 04/25/2025 [...] PET will be reported separately. Reading Location: [facility] CC: FRIEDA Ledezma; JESUS CALLAHAN ~ Estimating Engineer: Signed [facility] PET/CT Tumor Base -Thigh Ini ton 04-25-2025 PET/CT Tumor Base -Thigh Init Normal [facility] Pulmonary Visit Reporton Pulmonary Visit Report Normal [facility] Chest PA and Lateralon 04-10 Chest PA and Lateral Normal [facility] Chest PA and Lateral Normal [facility] Chest PA and Lateralon 04-09 Chest PA and Lateral Normal [facility] Absolute lymphocyte countOrd ered By: Michellemago Do on 04-08-2025 Lymphocytes Auto (Unsp spec) [#/Vol] 1.94 10*3/uL 0.83-4.51 [facility] Absolute neutrophil countOrd ered By: Michelle Hi on 04-08-2025 Neutrophils (Bld) [#/Vol] 3.3 10*3/uL 2.0-7.7 [facility] Anion gap in Serum or Plasma Ordered By: Michelle Do on 04-08-2025 Anion gap [Moles/Vol] 10 mmol/L - [facility] Automated lymphocyte count a s percentage of total leukocytesOrdered By: Michellemago Do on 04-08-2025 Lymphocytes/100 WBC Auto (Unsp spec) 30.2 % [facility] BUN/creatinine ratioOrdered By: Michelle Do on 04-08-2025 Urea nitrogen/Creatinine [Mass ratio] 15.4 mg/mg - [facility] Basic Metabolic Profile (BMP )on 04-08-2025 BUN/CRE 15.4 RATIO Normal - [facility] Comment on above: Performed By: #### L 500.2500, L100.0100 ####[facility] [address] [place], [address] Calcium [Mass/Vol] 8.9 mg/dL Normal 7.6-11.0 [facility] Comment on above: Performed By: #### L 500.2500, L100.0100 ####[facility] [address] [place], [address] Chloride [Moles/Vol] 100 mmol/L Normal 98-108 [facility] Comment on above: Performed By: #### L 500.2500, L100.0100 ####[facility] [address] [place], [address] CO2 [Moles/Vol] 23.3 mmol/L Normal 21.0-32.0 [facility] Comment on above: Performed By: #### L 500.2500, L100.0100 ####[facility] [address] [place], [address] Creatinine [Mass/Vol] 0.70 mg/dL Normal 0.70-1.20 [facility] Comment on above: Performed By: #### L 500.2500, L100.0100 ####[facility] [address] [place], [address] ECRCL 64.49 ml/min Normal 50-250 [facility] Comment on above: Performed By: #### L 500.2500, L100.0100 ####[facility] [address] [place], [address] GAP 10 Normal 5-15 [facility] Comment on above: Performed By: #### L 500.2500, L100.0100 ####[facility] [address] [place], [address] GFR/1.73 sq M.predicted among non-blacks MDRD (S/P/Bld) [Vol rate/Area] 99 mL/min/{1.73_m2} Normal >60 [facility] Comment on above: Result Comment: mL/m in/1.73m2 CKD-EPI Creatinine Equation (2020) Performed By: #### L 500.2500, L100.0100 ####[facility] [address] [place], [address] Glucose [Mass/Vol] 82 mg/dL Normal 70-99 [facility] Comment on above: Performed By: #### L 500.2500, L100.0100 ####[facility] [address] [place], [address] Potassium [Moles/Vol] 4.3 mmol/L Normal 3.3-5.1 [facility] Comment on above: Performed By: #### L 500.2500, L100.0100 ####[facility] [address] [place], [address] Sodium [Moles/Vol] 133 mmol/L Normal 133-145 [facility] Comment on above: Performed By: #### L 500.2500, L100.0100 ####[facility] [address] [place], [address] Urea nitrogen [Mass/Vol] 11 mg/dL Normal 4-19 [facility] Comment on above: Performed By: #### L 500.2500, L100.0100 ####[facility] [address] [place], [address] Basophil percentageOrdered B y: Michelle Do on 04-08-2025 Basophils/100 WBC (Bld) 0.5 % 0-1 [facility] CBC W/Diff, Automatedon 03-11 Absolute Lymph 1.94 X10 3/uL Normal 0.83-4.51 [facility] Comment on above: Performed By: #### L 500.2500, L100.0100 ####[facility] [address] [place], [address] Absolute Neut 3.3 X10 3/uL Normal 2.0-7.7 [facility] Comment on above: Performed By: #### L 500.2500, L100.0100 ####[facility] [address] [place], [address] Basophils/100 WBC (Bld) 0.5 % Normal 0-1 [facility] Comment on above: Performed By: #### L 500.2500, L100.0100 ####[facility] [address] [place], [address] Eosinophils/100 WBC (Bld) 3.1 % Normal 0-5 [facility] Comment on above: Performed By: #### L 500.2500, L100.0100 ####[facility] [address] [place], [address] Erythrocyte distribution width (RBC) [Ratio] 14.4 % Normal 11.6-14.6 [facility] Comment on above: Performed By: #### L 500.2500, L100.0100 ####[facility] [address] [place], [address] Hematocrit (Bld) [Volume fraction] 40.2 % Normal 40-54 [facility] Comment on above: Performed By: #### L 500.2500, L100.0100 ####[facility] [address] [place], [address] Hemoglobin (Bld) [Mass/Vol] 13.9 g/dL Normal 13.0-16. 5 [facility] Comment on above: Performed By: #### L 500.2500, L100.0100 ####[facility] [address] [place], [address] IG% 0.300 Normal 0.0-0.9 [facility] Comment on above: Result Comment: IG% - Immature Granulocytes (promyelocytes, myelocytes andmetamyelocytes) > 1% indicates that a LEFT SHIFT is Present. Performed By: #### L 500.2500, L100.0100 ####[facility] [address] [place], [address] Lymphocytes/100 WBC (Bld) 30.2 % Normal 19-41 [facility] Comment on above: Performed By: #### L 500.2500, L100.0100 ####[facility] [address] [place], [address] MCH (RBC) [Entitic mass] 31.0 pg Normal 27.0-32.0 [facility] Comment on above: Performed By: #### L 500.2500, L100.0100 ####[facility] [address] [place], [address] MCHC (RBC) [Mass/Vol] 34.6 g/dL Normal 32-36 [facility] Comment on above: Performed By: #### L 500.2500, L100.0100 ####[facility] [address] [place], [address] MCV (RBC) [Entitic vol] 89.5 fL Normal 80-94 [facility] Comment on above: Performed By: #### L 500.2500, L100.0100 ####[facility] [address] [place], [address] Monocytes/100 WBC (Bld) 14.3 % High 0-10 [facility] Comment on above: Performed By: #### L 500.2500, L100.0100 ####[facility] [address] [place], [address] Neutrophils/100 WBC (Bld) 51.6 % Normal 47-70 [facility] Comment on above: Performed By: #### L 500.2500, L100.0100 ####[facility] [address] [place], [address] Nucleated RBC (Bld) [#/Vol] 0 10*3/uL Normal 0-5 [facility] Comment on above: Performed By: #### L 500.2500, L100.0100 ####[facility] [address] [place], [address] Platelet mean volume (Bld) [Entitic vol] 10.2 fL Normal 6.2-12.0 [facility] Comment on above: Performed By: #### L 500.2500, L100.0100 ####[facility] [address] [place], [address] Platelets (Bld) [#/Vol] 286 10*3/uL Normal 150-450 [facility] Comment on above: Performed By: #### L 500.2500, L100.0100 ####[facility] [address] [place], [address] RBC (Bld) [#/Vol] 4.49 10*6/uL Low 4.6-6.2 [facility] Comment on above: Performed By: #### L 500.2500, L100.0100 ####[facility] [address] [place], [address] RDW SD 47.3 fl High 35.1-43.9 [facility] Comment on above: Performed By: #### L 500.2500, L100.0100 ####[facility] [address] [place], [address] WBC (Bld) [#/Vol] 6.4 10*3/uL Normal 4.4-11.0 [facility] Comment on above: Performed By: #### L 500.2500, L100.0100 ####[facility] [address] [place], [address] Carbon dioxide, total [Moles /volume] in Central venous bloodOrdered By: Michelle Do on 04-08-2025 CO2 [Moles/Vol] 23.3 mmol/L 21.0-32.0 [facility] Chest PA and Lateralon 04-08 Chest PA and Lateral Normal [facility] Chloride assayOrdered By: Hunter Do on 04-08-2025 Chloride [Moles/Vol] 100 mmol/L 98-108 [facility] Eosinophil percentageOrdered By: Michelle Do on 04-08-2025 Eosinophils/100 WBC (Bld) 3.1 % 0-5 [facility] Erythrocyte distribution wid th ratioOrdered By: Michelle Do on 04-08-2025 Erythrocyte distribution width (RBC) [Ratio] 14.4 % 11.6-14.6 [facility] Erythrocyte distribution wid th standard deviationOrdered By: Michelle Do on 04-08-2025 Erythrocyte distribution width (RBC) [Ratio] 47.3 fl High 35.1-43.9 [facility] Glomerular filtration rate ( GFR) estimation/1.73 sq m using serum, plasma, or whole bOrdered By: Michelle Do on 04-08-2025 GFR/1.73 sq M.predicted among non-blacks MDRD (S/P/Bld) [Vol rate/Area] 99 mL/min/{1.73_m2} >60 [facility] Comment on above: mL/min/1.73m2 CKD-EP I Creatinine Equation (2020) Hematocrit Auto (Bld) [Volum e fraction]Ordered By: Michelle Do 04-08-2025 Hematocrit (Bld) [Volume fraction] 40.2 % 40-54 [facility] Hemoglobin measurementOrdere d By: Michelle Do 04-08-2025 Hemoglobin (Bld) [Mass/Vol] 13.9 g/dL 13.0-16. 5 [facility] Immature granulocytes/100 WB C Auto (Bld)Ordered By: Michelle Do 04-08-2025 Immature granulocytes/100 WBC (Bld) 0.300 % 0.0-0.9 [facility] Comment on above: IG% - Immature Granu locytes (promyelocytes, myelocytes and metamyelocytes) > 1% indicates that a LEFT SHIFT is Present. MCV (mean corpuscular volume ) determinationOrdered By: Michelle Do 04-08-2025 MCV (RBC) [Entitic vol] 89.5 fL 80-94 [facility] Mean corpuscular hemoglobin (MCH) determinationOrdered By: Michelle Do on 04-08-2025 MCH (RBC) [Entitic mass] 31.0 pg 27.0-32.0 [facility] Mean corpuscular hemoglobin concentration (MCHC) determinationOrdered By: Michelle Do on 04-08-2025 MCHC (RBC) [Mass/Vol] 34.6 g/dL 32-36 [facility] Mean platelet volume determi nationOrdered By: Michelle Do on 04-08-2025 Platelet mean volume (Bld) [Entitic vol] 10.2 fL 6.2-12.0 [facility] Monocyte percentageOrdered B y: Michelle Do on 04-08-2025 Monocytes/100 WBC (Bld) 14.3 % High 0-10 [facility] Neutrophil percentageOrdered By: Michelle Do on 04-08-2025 Neutrophils/100 WBC (Bld) 51.6 % 47-70 [facility] Nucleated red blood cell per centageOrdered By: Michelle Do on 04-08-2025 Nucleated RBC/100 WBC (Bld) [Ratio] 0 % 0-5 [facility] Platelet countOrdered By: Na hunter Do on 04-08-2025 Platelets (Bld) [#/Vol] 286 10*3/uL 150-450 [facility] Potassium measurement (mass/ volume)Ordered By: Michelle Do on 04-08-2025 Potassium (Unsp spec) [Mass/Vol] 4.3 mmol/L 3.3-5.1 [facility] RBC Auto (Bld) [#/Vol]Ordere d By: Michelle Do on 04-08-2025 RBC (Bld) [#/Vol] 4.49 10*6/uL Low 4.6-6.2 [facility] Serum creatinine measurement (mass/volume)Ordered By: Michelle Do on 04-08-2025 Creatinine [Mass/Vol] 0.70 mg/dL 0.70-1.20 [facility] Serum glucose measurement (m ass/volume)Ordered By: Michelle Do on 04-08-2025 Glucose [Mass/Vol] 82 mg/dL 70-99 [facility] Serum or plasma calcium francoise urement (mass/volume)Ordered By: Michelle Do on 04-08-2025 Calcium [Mass/Vol] 8.9 mg/dL 7.6-11.0 [facility] Serum or plasma urea nitroge n measurement (mass/volume)Ordered By: Michelle Do on 04-08-2025 Urea nitrogen [Mass/Vol] 11 mg/dL 4-19 [facility] Sodium levelOrdered By: Michelle oD on 04-08-2025 Sodium [Moles/Vol] 133 mmol/L 133-145 [facility] White blood cell (WBC) count Ordered By: Michelle Do on 04-08-2025 WBC (Bld) [#/Vol] 6.4 10*3/uL 4.4-11.0 [facility] Absolute lymphocyte countOrd ered By: Stefan Shultz on 04-07-2025 Lymphocytes Auto (Unsp spec) [#/Vol] 1.62 10*3/uL 0.83-4.51 [facility] Absolute lymphocyte countOrd ered By: Saulo Barahona on 04-07-2025 Lymphocytes Auto (Unsp spec) [#/Vol] 1.95 10*3/uL 0.83-4.51 [facility] Absolute neutrophil countOrd ered By: Stefan Shultz on 04-07-2025 Neutrophils (Bld) [#/Vol] 5.4 10*3/uL 2.0-7.7 [facility] Absolute neutrophil countOrd ered By: Saulo Barahona on 04-07-2025 Neutrophils (Bld) [#/Vol] 4.6 10*3/uL 2.0-7.7 [facility] Activated partial thrombopla stin time (aPTT) in platelet poor plasma by coagulation aOrdered By: Saulo Barahona on 04-07-2025 aPTT Coag (PPP) [Time] 31.6 s 24.1-36.2 [facility] Anion gap in Serum or Plasma Ordered By: Stefan Shultz on 04-07-2025 Anion gap [Moles/Vol] 11 mmol/L 5-15 [facility] Automated lymphocyte count a s percentage of total leukocytesOrdered By: Stefan Shultz on 04-07-2025 Lymphocytes/100 WBC Auto (Unsp spec) 20.0 % [facility] Automated lymphocyte count a s percentage of total leukocytesOrdered By: Saulo Barahona on 04-07-2025 Lymphocytes/100 WBC Auto (Unsp spec) 24.4 % [facility] BUN/creatinine ratioOrdered By: Stefan Shultz on 04-07-2025 Urea nitrogen/Creatinine [Mass ratio] 12.7 mg/mg 08-28 [facility] Basic Metabolic Profile (BMP )on 04-07-2025 BUN/CRE 12.7 RATIO Normal 08-28 [facility] Comment on above: Performed By: #### L 100.0100, L500.2500 ####[facility] [address] [place], [address] Calcium [Mass/Vol] 8.9 mg/dL Normal 7.6-11.0 [facility] Comment on above: Performed By: #### L 100.0100, L500.2500 ####[facility] [address] [place], [address] Chloride [Moles/Vol] 100 mmol/L Normal 98-108 [facility] Comment on above: Performed By: #### L 100.0100, L500.2500 ####[facility] [address] [place], [address] CO2 [Moles/Vol] 21.1 mmol/L Normal 21.0-32.0 [facility] Comment on above: Performed By: #### L 100.0100, L500.2500 ####[facility] [address] [place], [address] Creatinine [Mass/Vol] 0.62 mg/dL Low 0.70-1.20 [facility] Comment on above: Performed By: #### L 100.0100, L500.2500 ####[facility] [address] [place], [address] ECRCL 61.74 ml/min Normal 50-250 [facility] Comment on above: Performed By: #### L 100.0100, L500.2500 ####[facility] [address] [place], [address] GAP 11 Normal 5-15 [facility] Comment on above: Performed By: #### L 100.0100, L500.2500 ####[facility] [address] [place], [address] GFR/1.73 sq M.predicted among non-blacks MDRD (S/P/Bld) [Vol rate/Area] 103 mL/min/{1.73_m2} Normal >60 [facility] Comment on above: Result Comment: mL/m in/1.73m2 CKD-EPI Creatinine Equation (2020) Performed By: #### L 100.0100, L500.2500 ####[facility] [address] [place], [address] Glucose [Mass/Vol] 84 mg/dL Normal 70-99 [facility] Comment on above: Performed By: #### L 100.0100, L500.2500 ####[facility] [address] [place], [address] Potassium [Moles/Vol] 4.5 mmol/L Normal 3.3-5.1 [facility] Comment on above: Result Comment: Hemo lysis present, Results??could be affected.?? Performed By: #### L 100.0100, L500.2500 ####[facility] [address] [place], [address] Sodium [Moles/Vol] 132 mmol/L Low 133-145 [facility] Comment on above: Performed By: #### L 100.0100, L500.2500 ####[facility] [address] [place], [address] Urea nitrogen [Mass/Vol] 8 mg/dL Normal 4-19 [facility] Comment on above: Performed By: #### L 100.0100, L500.2500 ####[facility] [address] [place], [address] Basophil percentageOrdered B y: Stefan Shultz on 04-07-2025 Basophils/100 WBC (Bld) 0.6 % 0-1 [facility] Basophil percentageOrdered B y: Saulo Barahona on 04-07-2025 Basophils/100 WBC (Bld) 1.0 % 0-1 [facility] Biopsy/Inj or Needle Placeme nton 04-07-2025 Biopsy/Inj or Needle Placement Normal [facility] CBC W/Diff, Automatedon 03-11 Absolute Lymph 1.62 X10 3/uL Normal 0.83-4.51 [facility] Comment on above: Performed By: #### L 100.0100, L500.2500 ####[facility] [address] [place], [address] Absolute Neut 5.4 X10 3/uL Normal 2.0-7.7 [facility] Comment on above: Performed By: #### L 100.0100, L500.2500 ####[facility] [address] [place], [address] Basophils/100 WBC (Bld) 0.6 % Normal 0-1 [facility] Comment on above: Performed By: #### L 100.0100, L500.2500 ####[facility] [address] [place], [address] Eosinophils/100 WBC (Bld) 0.7 % Normal 0-5 [facility] Comment on above: Performed By: #### L 100.0100, L500.2500 ####[facility] [address] [place], [address] Erythrocyte distribution width (RBC) [Ratio] 14.3 % Normal 11.6-14.6 [facility] Comment on above: Performed By: #### L 100.0100, L500.2500 ####[facility] [address] [place], [address] Hematocrit (Bld) [Volume fraction] 41.7 % Normal 40-54 [facility] Comment on above: Performed By: #### L 100.0100, L500.2500 ####[facility] [address] [place], [address] Hemoglobin (Bld) [Mass/Vol] 14.5 g/dL Normal 13.0-16. 5 [facility] Comment on above: Performed By: #### L 100.0100, L500.2500 ####[facility] [address] [place], [address] IG% 0.500 Normal 0.0-0.9 [facility] Comment on above: Result Comment: IG% - Immature Granulocytes (promyelocytes, myelocytes andmetamyelocytes) > 1% indicates that a LEFT SHIFT is Present. Performed By: #### L 100.0100, L500.2500 ####[facility] [address] [place], [address] Lymphocytes/100 WBC (Bld) 20.0 % Normal 19-41 [facility] Comment on above: Performed By: #### L 100.0100, L500.2500 ####[facility] [address] [place], [address] MCH (RBC) [Entitic mass] 30.5 pg Normal 27.0-32.0 [facility] Comment on above: Performed By: #### L 100.0100, L500.2500 ####[facility] [address] [place], [address] MCHC (RBC) [Mass/Vol] 34.8 g/dL Normal 32-36 [facility] Comment on above: Performed By: #### L 100.0100, L500.2500 ####[facility] [address] [place], [address] MCV (RBC) [Entitic vol] 87.6 fL Normal 80-94 [facility] Comment on above: Performed By: #### L 100.0100, L500.2500 ####[facility] [address] [place], [address] Monocytes/100 WBC (Bld) 12.0 % High 0-10 [facility] Comment on above: Performed By: #### L 100.0100, L500.2500 ####[facility] [address] [place], [address] Neutrophils/100 WBC (Bld) 66.2 % Normal 47-70 [facility] Comment on above: Performed By: #### L 100.0100, L500.2500 ####[facility] [address] [place], [address] Nucleated RBC (Bld) [#/Vol] 0 10*3/uL Normal 0-5 [facility] Comment on above: Performed By: #### L 100.0100, L500.2500 ####[facility] [address] [place], [address] Platelet mean volume (Bld) [Entitic vol] 10.0 fL Normal 6.2-12.0 [facility] Comment on above: Performed By: #### L 100.0100, L500.2500 ####[facility] [address] [place], [address] Platelets (Bld) [#/Vol] 309 10*3/uL Normal 150-450 [facility] Comment on above: Performed By: #### L 100.0100, L500.2500 ####[facility] [address] [place], [address] RBC (Bld) [#/Vol] 4.76 10*6/uL Normal 4.6-6.2 [facility] Comment on above: Performed By: #### L 100.0100, L500.2500 ####[facility] [address] [place], [address] RDW SD 46.2 fl High 35.1-43.9 [facility] Comment on above: Performed By: #### L 100.0100, L500.2500 ####[facility] [address] [place], [address] WBC (Bld) [#/Vol] 8.1 10*3/uL Normal 4.4-11.0 [facility] Comment on above: Performed By: #### L 100.0100, L500.2500 ####[facility] [address] [place], [address] Absolute Lymph 1.95 X10 3/uL Normal 0.83-4.51 [facility] Comment on above: Performed By: #### L 100.0100, L300.3900, L300.4310 ####[facility] [address] [place], [address] Absolute Neut 4.6 X10 3/uL Normal 2.0-7.7 [facility] Comment on above: Performed By: #### L 100.0100, L300.3900, L300.4310 ####[facility] [address] [place], [address] Basophils/100 WBC (Bld) 1.0 % Normal 0-1 [facility] Comment on above: Performed By: #### L 100.0100, L300.3900, L300.4310 ####[facility] [address] [place], [address] Eosinophils/100 WBC (Bld) 1.4 % Normal 0-5 [facility] Comment on above: Performed By: #### L 100.0100, L300.3900, L300.4310 ####[facility] [address] [place], [address] Erythrocyte distribution width (RBC) [Ratio] 14.3 % Normal 11.6-14.6 [facility] Comment on above: Performed By: #### L 100.0100, L300.3900, L300.4310 ####[facility] [address] [place], [address] Hematocrit (Bld) [Volume fraction] 44.7 % Normal 40-54 [facility] Comment on above: Performed By: #### L 100.0100, L300.3900, L300.4310 ####[facility] [address] [place], [address] Hemoglobin (Bld) [Mass/Vol] 15.6 g/dL Normal 13.0-16. 5 [facility] Comment on above: Performed By: #### L 100.0100, L300.3900, L300.4310 ####[facility] [address] [place], [address] IG% 0.400 Normal 0.0-0.9 [facility] Comment on above: Result Comment: IG% - Immature Granulocytes (promyelocytes, myelocytes andmetamyelocytes) > 1% indicates that a LEFT SHIFT is Present. Performed By: #### L 100.0100, L300.3900, L300.4310 ####[facility] [address] [place], [address] Lymphocytes/100 WBC (Bld) 24.4 % Normal 19-41 [facility] Comment on above: Performed By: #### L 100.0100, L300.3900, L300.4310 ####[facility] [address] [place], [address] MCH (RBC) [Entitic mass] 30.6 pg Normal 27.0-32.0 [facility] Comment on above: Performed By: #### L 100.0100, L300.3900, L300.4310 ####[facility] [address] [place], [address] MCHC (RBC) [Mass/Vol] 34.9 g/dL Normal 32-36 [facility] Comment on above: Performed By: #### L 100.0100, L300.3900, L300.4310 ####[facility] [address] [place], [address] MCV (RBC) [Entitic vol] 87.8 fL Normal 80-94 [facility] Comment on above: Performed By: #### L 100.0100, L300.3900, L300.4310 ####[facility] [address] [place], [address] Monocytes/100 WBC (Bld) 15.2 % High 0-10 [facility] Comment on above: Performed By: #### L 100.0100, L300.3900, L300.4310 ####[facility] [address] [place], [address] Neutrophils/100 WBC (Bld) 57.6 % Normal 47-70 [facility] Comment on above: Performed By: #### L 100.0100, L300.3900, L300.4310 ####[facility] [address] [place], [address] Nucleated RBC (Bld) [#/Vol] 0 10*3/uL Normal 0-5 [facility] Comment on above: Performed By: #### L 100.0100, L300.3900, L300.4310 ####[facility] [address] [place], [address] Platelet mean volume (Bld) [Entitic vol] 9.8 fL Normal 6.2-12.0 [facility] Comment on above: Performed By: #### L 100.0100, L300.3900, L300.4310 ####[facility] [address] [place], [address] Platelets (Bld) [#/Vol] 319 10*3/uL Normal 150-450 [facility] Comment on above: Performed By: #### L 100.0100, L300.3900, L300.4310 ####[facility] [address] [place], [address] RBC (Bld) [#/Vol] 5.09 10*6/uL Normal 4.6-6.2 [facility] Comment on above: Performed By: #### L 100.0100, L300.3900, L300.4310 ####[facility] [address] [place], [address] RDW SD 45.9 fl High 35.1-43.9 [facility] Comment on above: Performed By: #### L 100.0100, L300.3900, L300.4310 ####[facility] [address] [place], [address] WBC (Bld) [#/Vol] 8.0 10*3/uL Normal 4.4-11.0 [facility] Comment on above: Performed By: #### L 100.0100, L300.3900, L300.4310 ####[facility] [address] [place], [address] Carbon dioxide, total [Moles /volume] in Central venous bloodOrdered By: Stefan Shultz on 04-07-2025 CO2 [Moles/Vol] 21.1 mmol/L 21.0-32.0 [facility] Chest Insp/Exp 2 Viewon 03-11 Chest Insp/Exp 2 View Normal [facility] Chest Insp/Exp 2 View Normal [facility] Chloride assayOrdered By: Corazon Shultz on 04-07-2025 Chloride [Moles/Vol] 100 mmol/L 98-108 [facility] Consultation - Surgicalon Consultation - Surgical Normal [facility] Emergency Department Summary on 04-07-2025 Emergency Department Summary Normal [facility] Eosinophil percentageOrdered By: Stefan Shultz on 04-07-2025 Eosinophils/100 WBC (Bld) 0.7 % 0-5 [facility] Eosinophil percentageOrdered By: Saulo Barahona on 04-07-2025 Eosinophils/100 WBC (Bld) 1.4 % 0-5 [facility] Erythrocyte distribution wid th ratioOrdered By: Stefan Shultz on 04-07-2025 Erythrocyte distribution width (RBC) [Ratio] 14.3 % 11.6-14.6 [facility] Erythrocyte distribution wid th ratioOrdered By: Saulo Barahona on 04-07-2025 Erythrocyte distribution width (RBC) [Ratio] 14.3 % 11.6-14.6 [facility] Erythrocyte distribution wid th standard deviationOrdered By: Stefan Shultz on 04-07-2025 Erythrocyte distribution width (RBC) [Ratio] 46.2 fl High 35.1-43.9 [facility] Erythrocyte distribution wid th standard deviationOrdered By: Saulo Barahona on 04-07-2025 Erythrocyte distribution width (RBC) [Ratio] 45.9 fl High 35.1-43.9 [facility] Glomerular filtration rate ( GFR) estimation/1.73 sq m using serum, plasma, or whole bOrdered By: Stefan Shultz on 04-07-2025 GFR/1.73 sq M.predicted among non-blacks MDRD (S/P/Bld) [Vol rate/Area] 103 mL/min/{1.73_m2} >60 [facility] Comment on above: mL/min/1.73m2 CKD-EP I Creatinine Equation (2020) H AND P Exam - Hospitaliston 04-07-2025 H&P Exam - Hospitalist Normal [facility] Hematocrit Auto (Bld) [Volum e fraction]Ordered By: Stefan Shultz on 04-07-2025 Hematocrit (Bld) [Volume fraction] 41.7 % 40-54 [facility] Hematocrit Auto (Bld) [Volum e fraction]Ordered By: Saulo Barahona on 04-07-2025 Hematocrit (Bld) [Volume fraction] 44.7 % 40-54 [facility] Hemoglobin measurementOrdere d By: Stefan Shultz on 04-07-2025 Hemoglobin (Bld) [Mass/Vol] 14.5 g/dL 13.0-16. 5 [facility] Hemoglobin measurementOrdere d By: Saulo Barahona on 04-07-2025 Hemoglobin (Bld) [Mass/Vol] 15.6 g/dL 13.0-16. 5 [facility] Immature granulocytes/100 WB C Auto (Bld)Ordered By: Stefan Shultz on 04-07-2025 Immature granulocytes/100 WBC (Bld) 0.500 % 0.0-0.9 [facility] Comment on above: IG% - Immature Granu locytes (promyelocytes, myelocytes and metamyelocytes) > 1% indicates that a LEFT SHIFT is Present. Immature granulocytes/100 WB C Auto (Bld)Ordered By: Saulo Barahona on 04-07-2025 Immature granulocytes/100 WBC (Bld) 0.400 % 0.0-0.9 [facility] Comment on above: IG% - Immature Granu locytes (promyelocytes, myelocytes and metamyelocytes) > 1% indicates that a LEFT SHIFT is Present. Immunohistochemical Stainson 04-07-2025 Immunohistochemical Stains Normal [facility] Comment on above: Performed By: #### [facility] ####[facility] [address] [place], [place], [id number] International normalized rat io (INR) calculationOrdered By: Saulo Barahona on 04-07-2025 INR Coag (Bld) [Relative time] 1.0 {INR} [facility] MCV (mean corpuscular volume ) determinationOrdered By: Stefan Shultz on 04-07-2025 MCV (RBC) [Entitic vol] 87.6 fL 80-94 [facility] MCV (mean corpuscular volume ) determinationOrdered By: Saulo Barahona on 04-07-2025 MCV (RBC) [Entitic vol] 87.8 fL 80-94 [facility] Mean corpuscular hemoglobin (MCH) determinationOrdered By: Stefan Shultz on 04-07-2025 MCH (RBC) [Entitic mass] 30.5 pg 27.0-32.0 [facility] Mean corpuscular hemoglobin (MCH) determinationOrdered By: Saulo Barahona on 04-07-2025 MCH (RBC) [Entitic mass] 30.6 pg 27.0-32.0 [facility] Mean corpuscular hemoglobin concentration (MCHC) determinationOrdered By: Stefan Martinone on 04-07-2025 MCHC (RBC) [Mass/Vol] 34.8 g/dL 32-36 [facility] Mean corpuscular hemoglobin concentration (MCHC) determinationOrdered By: Saulo Barahona on 04-07-2025 MCHC (RBC) [Mass/Vol] 34.9 g/dL -36 [facility] Mean platelet volume determi nationOrdered By: Stefan Shultz on 04-07-2025 Platelet mean volume (Bld) [Entitic vol] 10.0 fL 6.2-12.0 [facility] Mean platelet volume determi nationOrdered By: Saulo Barahona on 04-07-2025 Platelet mean volume (Bld) [Entitic vol] 9.8 fL 6.2-12.0 [facility] Monocyte percentageOrdered B y: Stefan Shultz on 04-07-2025 Monocytes/100 WBC (Bld) 12.0 % High 0-10 [facility] Monocyte percentageOrdered B y: Saulo Barahona on 04-07-2025 Monocytes/100 WBC (Bld) 15.2 % High 0-10 [facility] Neutrophil percentageOrdered By: Stefan Martinone on 04-07-2025 Neutrophils/100 WBC (Bld) 66.2 % 47-70 [facility] Neutrophil percentageOrdered By: Saulo Dowdi on 04-07-2025 Neutrophils/100 WBC (Bld) 57.6 % 47-70 [facility] Nucleated red blood cell per centageOrdered By: Stefan Shultz on 04-07-2025 Nucleated RBC/100 WBC (Bld) [Ratio] 0 % 0-5 [facility] Nucleated red blood cell per centageOrdered By: Saulo Barahona on 04-07-2025 Nucleated RBC/100 WBC (Bld) [Ratio] 0 % 0-5 [facility] Partial Thromboplast Timeon 04-07-2025 aPTT Coag (Bld) [Time] 31.6 s Normal 24.1-36.2 [facility] Comment on above: Performed By: #### L 100.0100, L300.3900, L300.4310 ####[facility] [address] [place], [address] Platelet countOrdered By: Corazon Shultz on 04-07-2025 Platelets (Bld) [#/Vol] 309 10*3/uL 150-450 [facility] Platelet countOrdered By: Boone Barahona on 04-07-2025 Platelets (Bld) [#/Vol] 319 10*3/uL 150-450 [facility] Potassium measurement (mass/ volume)Ordered By: Stefan Shultz on 04-07-2025 Potassium (Unsp spec) [Mass/Vol] 4.5 mmol/L 3.3-5.1 [facility] Comment on above: Hemolysis present, R esults could be affected. Prothrombin Time w/INRon INR Coag (PPP) [Relative time] 1.0 {INR} Normal [facility] Comment on above: Performed By: #### L 100.0100, L300.3900, L300.4310 ####[facility] [address] [place], [address] PT Coag (PPP) [Time] 13.4 s Normal 11.7-14.9 [facility] Comment on above: Performed By: #### L 100.0100, L300.3900, L300.4310 ####[facility] [address] [place], [address] Prothrombin timeOrdered By: Saulo Barahona on 04-07-2025 PT Coag (PPP) [Time] 13.4 s 11.7-14.9 [facility] RBC Auto (Bld) [#/Vol]Ordere d By: Stefan Shultz on 04-07-2025 RBC (Bld) [#/Vol] 4.76 10*6/uL 4.6-6.2 [facility] RBC Auto (Bld) [#/Vol]Ordere d By: Saulo Barahona on 04-07-2025 RBC (Bld) [#/Vol] 5.09 10*6/uL 4.6-6.2 [facility] Serum creatinine measurement (mass/volume)Ordered By: Stefan Shultz on 04-07-2025 Creatinine [Mass/Vol] 0.62 mg/dL Low 0.70-1.20 [facility] Serum glucose measurement (m ass/volume)Ordered By: Stefan Shultz on 04-07-2025 Glucose [Mass/Vol] 84 mg/dL 70-99 [facility] Serum or plasma calcium francoise urement (mass/volume)Ordered By: Stefan Shultz on 04-07-2025 Calcium [Mass/Vol] 8.9 mg/dL 7.6-11.0 [facility] Serum or plasma urea nitroge n measurement (mass/volume)Ordered By: Stefan Shultz on 04-07-2025 Urea nitrogen [Mass/Vol] 8 mg/dL 4-19 [facility] Sodium levelOrdered By: Darwin Shultz on 04-07-2025 Sodium [Moles/Vol] 132 mmol/L Low 133-145 [facility] White blood cell (WBC) count Ordered By: Stefan Shultz on 04-07-2025 WBC (Bld) [#/Vol] 8.1 10*3/uL 4.4-11.0 [facility] White blood cell (WBC) count Ordered By: Saulo Barahona on 04-07-2025 WBC (Bld) [#/Vol] 8.0 10*3/uL 4.4-11.0 [facility] Pulmonary Visit Reporton Pulmonary Visit Report Normal [facility] 6 Minute Walk Teston 04-25-2 025 6 Minute Walk Test Normal [facility] Chest WITH Contraston 2024 Chest WITH Contrast Normal [facility] Pulmonary Visit Reporton Pulmonary Visit Report Normal [facility] MR/BMS.BVSon 12-26-2024 MR/BMS.BVS Normal [facility] AAA Screeningon 12-08-2024 AAA Screening Normal [facility] CTA Head AND Neck W/ Contras ton 12-01-2024 CTA Head AND Neck W/ Contrast Normal [facility] MR/BMS.BVSon 11-11-2024 MR/BMS.BVS Normal [facility] Absolute neutrophil countOrd ered By: Janak Ulloa on 11-08-2024 Neutrophils (Bld) [#/Vol] 3.0 10*3/uL 2.0-7.7 [facility] Basic Metabolic Profile (BMP )on 11-08-2024 BUN/CRE 14.2 RATIO Normal 10-20 [facility] Comment on above: Performed By: #### L 100.0100, L500.2500 ####[facility] [address] [place], [address] CA,Total 8.8 mg/dL Normal 8.5-10.1 [facility] Comment on above: Performed By: #### L 100.0100, L500.2500 ####[facility] [address] [place], [address] Chloride [Moles/Vol] 102 mmol/L Normal 98-107 [facility] Comment on above: Performed By: #### L 100.0100, L500.2500 ####[facility] [address] [place], [address] CO2 [Moles/Vol] 24.0 mmol/L Normal 21.0-32.0 [facility] Comment on above: Performed By: #### L 100.0100, L500.2500 ####[facility] [address] [place], [address] Creatinine [Mass/Vol] 0.56 mg/dL Low 0.70-1.30 [facility] Comment on above: Result Comment: The validity of the calculated GFR GFRAA in patients over70 years has not been determined. Clinical correlation isessential. Performed By: #### L 100.0100, L500.2500 ####[facility] [address] [place], [address] ECRCL 62.00 ml/min Normal [facility] Comment on above: Performed By: #### L 100.0100, L500.2500 ####[facility] [address] [place], [address] EST GFR - AA 185 mL/min Normal >60 [facility] Comment on above: Result Comment: Afri can Icelandic GFR Calc Performed By: #### L 100.0100, L500.2500 ####[facility] [address] [place], [address] GAP 5 Normal 5-15 [facility] Comment on above: Performed By: #### L 100.0100, L500.2500 ####[facility] [address] [place], [address] GFR/1.73 sq M.predicted among non-blacks MDRD (S/P/Bld) [Vol rate/Area] 153 mL/min/{1.73_m2} Normal >60 [facility] Comment on above: Result Comment: Non- GFR Calc Performed By: #### L 100.0100, L500.2500 ####[facility] [address] [place], [address] Glucose [Mass/Vol] 86 mg/dL Normal 74-106 [facility] Comment on above: Performed By: #### L 100.0100, L500.2500 ####[facility] [address] [place], [address] Potassium [Moles/Vol] 4.3 mmol/L Normal 3.5-5.1 [facility] Comment on above: Performed By: #### L 100.0100, L500.2500 ####[facility] [address] [place], [address] Sodium [Moles/Vol] 131 mmol/L Low 136-145 [facility] Comment on above: Performed By: #### L 100.0100, L500.2500 ####[facility] [address] [place], [address] Urea nitrogen [Mass/Vol] 8 mg/dL Normal 7-18 [facility] Comment on above: Performed By: #### L 100.0100, L500.2500 ####[facility] [address] [place], [address] Basophil percentageOrdered B y: Janak Ulloa on 11-08-2024 Basophils/100 WBC (Bld) 0.7 % 0-1 [facility] Blood urea nitrogen (BUN)/cr eatinine ratioOrdered By: Janak Ulloa on 11-08-2024 Urea nitrogen/Creatinine [Mass ratio] 14.2 mg/mg 10-20 [facility] CBC W/Diff, Automatedon - Absolute Lymph 1.38 X10 3/uL Normal 0.83-4.51 [facility] Comment on above: Performed By: #### L 100.0100, L500.2500 ####[facility] [address] [place], [address] Absolute Neut 3.0 X10 3/uL Normal 2.0-7.7 [facility] Comment on above: Performed By: #### L 100.0100, L500.2500 ####[facility] [address] [place], [address] Basophils/100 WBC (Bld) 0.7 % Normal 0-1 [facility] Comment on above: Performed By: #### L 100.0100, L500.2500 ####[facility] [address] [place], [address] Eosinophils/100 WBC (Bld) 2.0 % Normal 0-5 [facility] Comment on above: Performed By: #### L 100.0100, L500.2500 ####[facility] [address] [place], [address] Erythrocyte distribution width (RBC) [Ratio] 13.2 % Normal 11.6-14.6 [facility] Comment on above: Performed By: #### L 100.0100, L500.2500 ####[facility] [address] [place], [address] Hematocrit (Bld) [Volume fraction] 34.6 % Low 40-54 [facility] Comment on above: Performed By: #### L 100.0100, L500.2500 ####[facility] [address] [place], [address] Hemoglobin (Bld) [Mass/Vol] 12.3 g/dL Low 13.0-16. 5 [facility] Comment on above: Performed By: #### L 100.0100, L500.2500 ####[facility] [address] [place], [address] IG% 0.500 Normal 0.0-0.9 [facility] Comment on above: Result Comment: IG% - Immature Granulocytes (promyelocytes, myelocytes andmetamyelocytes) > 1% indicates that a LEFT SHIFT is Present. Performed By: #### L 100.0100, L500.2500 ####[facility] [address] [place], [address] Lymphocytes/100 WBC (Bld) 24.7 % Normal 19-41 [facility] Comment on above: Performed By: #### L 100.0100, L500.2500 ####[facility] [address] [place], [address] MCH (RBC) [Entitic mass] 31.4 pg Normal 27.0-32.0 [facility] Comment on above: Performed By: #### L 100.0100, L500.2500 ####[facility] [address] [place], [address] MCHC (RBC) [Mass/Vol] 35.5 g/dL Normal 32-36 [facility] Comment on above: Performed By: #### L 100.0100, L500.2500 ####[facility] [address] [place], [address] MCV (RBC) [Entitic vol] 88.3 fL Normal 80-94 [facility] Comment on above: Performed By: #### L 100.0100, L500.2500 ####[facility] [address] [place], [address] Monocytes/100 WBC (Bld) 18.1 % High 0-10 [facility] Comment on above: Performed By: #### L 100.0100, L500.2500 ####[facility] [address] [place], [address] Neutrophils/100 WBC (Bld) 54.0 % Normal 47-70 [facility] Comment on above: Performed By: #### L 100.0100, L500.2500 ####[facility] [address] [place], [address] Nucleated RBC (Bld) [#/Vol] 0 10*3/uL Normal 0-5 [facility] Comment on above: Performed By: #### L 100.0100, L500.2500 ####[facility] [address] [place], [address] Platelet mean volume (Bld) [Entitic vol] 9.8 fL Normal 6.2-12.0 [facility] Comment on above: Performed By: #### L 100.0100, L500.2500 ####[facility] [address] [place], [address] Platelets (Bld) [#/Vol] 294 10*3/uL Normal 150-450 [facility] Comment on above: Performed By: #### L 100.0100, L500.2500 ####[facility] [address] [place], [address] RBC (Bld) [#/Vol] 3.92 10*6/uL Low 4.6-6.2 [facility] Comment on above: Performed By: #### L 100.0100, L500.2500 ####[facility] [address] [place], [address] RDW SD 42.9 fl Normal 35.1-43.9 [facility] Comment on above: Performed By: #### L 100.0100, L500.2500 ####[facility] [address] [place], [address] WBC (Bld) [#/Vol] 5.6 10*3/uL Normal 4.4-11.0 [facility] Comment on above: Performed By: #### L 100.0100, L500.2500 ####[facility] [address] [place], [address] Carbon dioxide measurementOr dered By: Janak Ulloa on 11-08-2024 CO2 [Moles/Vol] 24.0 mmol/L 21.0-32.0 [facility] Chloride measurementOrdered By: Janak Ulloa on 11-08-2024 Chloride [Moles/Vol] 102 mmol/L 98-107 [facility] Discharge Instructionon 10-11 Discharge Instruction Normal [facility] Eosinophil percentageOrdered By: Janak Ulloa on 11-08-2024 Eosinophils/100 WBC (Bld) 2.0 % 0-5 [facility] Erythrocyte distribution wid th (RBC) [Ratio]Ordered By: Janak Ulloa on 11-08-2024 Erythrocyte distribution width (RBC) [Entitic vol] 42.9 fL 35.1-43.9 [facility] Erythrocyte distribution wid th ratioOrdered By: Janak Ulloa on 11-08-2024 Erythrocyte distribution width (RBC) [Ratio] 13.2 % 11.6-14.6 [facility] Estimated glomerular filtrat ion rate (GFR) AmericanOrdered By: Janak Ulloa on 11-08-2024 Estimated GFR (MDRD) Amer 185 mL/min >60 [facility] Comment on above: GFR Calc Estimation of creatinine jonathan aranceOrdered By: Janak Ulloa on 11-08-2024 Estimated Creatinine Clearance Calc 62.00 ml/min [facility] Glomerular filtration rate ( GFR) estimationOrdered By: Janak Ulloa on 11-08-2024 Estimated GFR (MDRD) Non-Af Amer 153 mL/min >60 [facility] Comment on above: Non- GFR Calc Glucose measurementOrdered B y: Janak Ulloa on 11-08-2024 Glucose [Mass/Vol] 86 mg/dL 74-106 [facility] Hematocrit Auto (Bld) [Volum e fraction]Ordered By: Janak Ulloa on 11-08-2024 Hematocrit (Bld) [Volume fraction] 34.6 % Low 40-54 [facility] Hemoglobin measurementOrdere d By: Janak Ulloa on 11-08-2024 Hemoglobin (Bld) [Mass/Vol] 12.3 g/dL Low 13.0-16. 5 [facility] Immature granulocytes/100 WB C Auto (Bld)Ordered By: Janak Ulloa on 11-08-2024 Immature granulocytes/100 WBC (Bld) 0.500 % 0.0-0.9 [facility] Comment on above: IG% - Immature Granu locytes (promyelocytes, myelocytes and metamyelocytes) > 1% indicates that a LEFT SHIFT is Present. Lymphocytes Auto (Unsp spec) [#/Vol]Ordered By: Janak Ulloa on 11-08-2024 Lymphocytes (Bld) [#/Vol] 1.38 10*3/uL 0.83-4.5 1 [facility] Lymphocytes/100 WBC Auto (Un sp spec)Ordered By: Janak Ulloa on 11-08-2024 Lymphocytes/100 WBC (Bld) 24.7 % 19-41 [facility] MCV (mean corpuscular volume ) determinationOrdered By: Janak Ulloa on 11-08-2024 MCV (RBC) [Entitic vol] 88.3 fL 80-94 [facility] Mean corpuscular hemoglobin (MCH) determinationOrdered By: Janak Ulloa on 11-08-2024 MCH (RBC) [Entitic mass] 31.4 pg 27.0-32.0 [facility] Mean corpuscular hemoglobin concentration (MCHC) determinationOrdered By: Janak Ulloa on 11-08-2024 MCHC (RBC) [Mass/Vol] 35.5 g/dL 32-36 [facility] Mean platelet volume determi nationOrdered By: Janak Ulloa on 11-08-2024 Platelet mean volume (Bld) [Entitic vol] 9.8 fL 6.2-12.0 [facility] Monocyte percentageOrdered B y: Janak Ulloa on 11-08-2024 Monocytes/100 WBC (Bld) 18.1 % High 0-10 [facility] Neutrophil percentageOrdered By: Janak Ulloa on 11-08-2024 Neutrophils/100 WBC (Bld) 54.0 % 47-70 [facility] Nucleated red blood cell per centageOrdered By: Janak Ulloa on 11-08-2024 Nucleated RBC/100 WBC (Bld) [Ratio] 0 % 0-5 [facility] PROLACTIN 4465on 11-08-2024 PROLACTIN 6.2 ng/mL Normal 3.6-25.2 [facility] Comment on above: Result Comment: Perf ormed at: CB - [facility] [address] [id number] Director: Sascha Diaz PhD, Phone: [phone] Performed By: #### L 476.7142, Q4299.1931, P844.2375 ####[facility] [address] [place], [address] Platelet countOrdered By: Cleo Ulloa on 11-08-2024 Platelets (Bld) [#/Vol] 294 10*3/uL 150-450 [facility] Potassium measurementOrdered By: Janak Ulloa on 11-08-2024 Potassium [Moles/Vol] 4.3 mmol/L 3.5-5.1 [facility] RBC Auto (Bld) [#/Vol]Ordere d By: Janak Ulloa on 11-08-2024 RBC (Bld) [#/Vol] 3.92 10*6/uL Low 4.6-6.2 [facility] Serum anion gap measurementO rdered By: Janak Ulloa on 11-08-2024 Anion gap [Moles/Vol] 5 mmol/L 5-15 [facility] Serum or plasma calcium francoise urement (mass/volume)Ordered By: Janak Ulloa on 11-08-2024 Calcium [Mass/Vol] 8.8 mg/dL 8.5-10.1 [facility] Serum or plasma creatinine m easurement (mass/volume)Ordered By: Janak Ulloa on 11-08-2024 Creatinine [Mass/Vol] 0.56 mg/dL Low 0.70-1.30 [facility] Comment on above: The validity of the calculated GFR & GFRAA in patients over 70 years has not been determined. Clinical correlation is essential. Serum or plasma urea nitroge n measurement (mass/volume)Ordered By: Janak Ulloa on 11-08-2024 Urea nitrogen [Mass/Vol] 8 mg/dL 7-18 [facility] Sodium levelOrdered By: Tye Ulloa on 11-08-2024 Sodium [Moles/Vol] 131 mmol/L Low 136-145 [facility] White blood cell (WBC) count Ordered By: Janak Ulloa on 11-08-2024 WBC (Bld) [#/Vol] 5.6 10*3/uL 4.4-11.0 [facility] Albumin to globulin ratioOrd ered By: Goldy Law on 11-07-2024 Albumin/Globulin [Mass ratio] 0.9 {ratio} 0.9-2.4 [facility] Basic Metabolic Profile (BMP )on 11-07-2024 BUN Normal 7-18 [facility] Comment on above: Result Comment: Canc elled via OM: MD Ordered Performed By: #### L 500.2500 ####[facility] [address] [place], [address] BUN/CRE Normal 10-20 [facility] Comment on above: Result Comment: Canc elled via OM: MD Ordered Performed By: #### L 500.2500 ####[facility] [address] [place], [address] CA,Total Normal 8.5-10.1 [facility] Comment on above: Result Comment: Canc elled via OM: MD Ordered Performed By: #### L 500.2500 ####[facility] [address] [place], [address] CL Normal 98-107 [facility] Comment on above: Result Comment: Canc elled via OM: MD Ordered Performed By: #### L 500.2500 ####[facility] [address] [place], [address] CO2 Normal 21.0-32.0 [facility] Comment on above: Result Comment: Canc elled via OM: MD Ordered Performed By: #### L 500.2500 ####[facility] [address] [place], [address] CREAT,SERUM Normal 0.70-1.30 [facility] Comment on above: Result Comment: Canc elled via OM: MD Ordered Performed By: #### L 500.2500 ####[facility] [address] [place], [address] EST GFR Normal >60 [facility] Comment on above: Result Comment: Canc elled via OM: MD Ordered Performed By: #### L 500.2500 ####[facility] [address] [place], [address] EST GFR - AA Normal >60 [facility] Comment on above: Result Comment: Canc elled via OM: MD Ordered Performed By: #### L 500.2500 ####[facility] [address] [place], [address] GAP Normal 5-15 [facility] Comment on above: Result Comment: Canc elled via OM: MD Ordered Performed By: #### L 500.2500 ####[facility] [address] [place], [address] GLU Normal 74-106 [facility] Comment on above: Result Comment: Canc elled via OM: MD Ordered Performed By: #### L 500.2500 ####[facility] [address] [place], [address] Potassium Normal 3.5-5.1 [facility] Comment on above: Result Comment: Canc elled via OM: MD Ordered Performed By: #### L 500.2500 ####[facility] [address] [place], [address] Basic Metabolic Profile (BMP) Normal 136-145 [facility] Comment on above: Result Comment: Canc elled via OM: MD Ordered Performed By: #### L 500.2500 ####[facility] [address] [place], [address] BUN Normal 7-18 [facility] Comment on above: Result Comment: Canc elled via OM: MD Ordered Performed By: #### L 500.2500 ####[facility] [address] [place], [address] BUN/CRE Normal 10-20 [facility] Comment on above: Result Comment: Canc elled via OM: MD Ordered Performed By: #### L 500.2500 ####[facility] [address] [place], [address] CA,Total Normal 8.5-10.1 [facility] Comment on above: Result Comment: Canc elled via OM: MD Ordered Performed By: #### L 500.2500 ####[facility] [address] [place], [address] CL Normal 98-107 [facility] Comment on above: Result Comment: Canc elled via OM: MD Ordered Performed By: #### L 500.2500 ####[facility] [address] [place], [address] CO2 Normal 21.0-32.0 [facility] Comment on above: Result Comment: Canc elled via OM: MD Ordered Performed By: #### L 500.2500 ####[facility] [address] [place], [address] CREAT,SERUM Normal 0.70-1.30 [facility] Comment on above: Result Comment: Canc elled via OM: MD Ordered Performed By: #### L 500.2500 ####[facility] [address] [place], [address] EST GFR Normal >60 [facility] Comment on above: Result Comment: Canc elled via OM: MD Ordered Performed By: #### L 500.2500 ####[facility] [address] [place], [address] EST GFR - AA Normal >60 [facility] Comment on above: Result Comment: Canc elled via OM: MD Ordered Performed By: #### L 500.2500 ####[facility] [address] [place], [address] GAP Normal 5-15 [facility] Comment on above: Result Comment: Canc elled via OM: MD Ordered Performed By: #### L 500.2500 ####[facility] [address] [place], [address] GLU Normal 74-106 [facility] Comment on above: Result Comment: Canc elled via OM: MD Ordered Performed By: #### L 500.2500 ####[facility] [address] [place], [address] Potassium Normal 3.5-5.1 [facility] Comment on above: Result Comment: Canc elled via OM: MD Ordered Performed By: #### L 500.2500 ####[facility] [address] [place], [address] Basic Metabolic Profile (BMP) Normal 136-145 [facility] Comment on above: Result Comment: Canc elled via OM: MD Ordered Performed By: #### L 500.2500 ####[facility] [address] [place], [address] BUN Normal 7-18 [facility] Comment on above: Result Comment: Canc elled via OM: MD Ordered Performed By: #### L 500.2500 ####[facility] [address] [place], [address] BUN/CRE Normal 10-20 [facility] Comment on above: Result Comment: Canc elled via OM: MD Ordered Performed By: #### L 500.2500 ####[facility] [address] [place], [address] CA,Total Normal 8.5-10.1 [facility] Comment on above: Result Comment: Canc elled via OM: MD Ordered Performed By: #### L 500.2500 ####[facility] [address] [place], [address] CL Normal 98-107 [facility] Comment on above: Result Comment: Canc elled via OM: MD Ordered Performed By: #### L 500.2500 ####[facility] [address] [place], [address] CO2 Normal 21.0-32.0 [facility] Comment on above: Result Comment: Canc elled via OM: MD Ordered Performed By: #### L 500.2500 ####[facility] [address] [place], [address] CREAT,SERUM Normal 0.70-1.30 [facility] Comment on above: Result Comment: Canc elled via OM: MD Ordered Performed By: #### L 500.2500 ####[facility] [address] [place], [address] EST GFR Normal >60 [facility] Comment on above: Result Comment: Canc elled via OM: MD Ordered Performed By: #### L 500.2500 ####[facility] [address] [place], [address] EST GFR - AA Normal >60 [facility] Comment on above: Result Comment: Canc elled via OM: MD Ordered Performed By: #### L 500.2500 ####[facility] [address] [place], [address] GAP Normal 5-15 [facility] Comment on above: Result Comment: Canc elled via OM: MD Ordered Performed By: #### L 500.2500 ####[facility] [address] [place], [address] GLU Normal 74-106 [facility] Comment on above: Result Comment: Canc elled via OM: MD Ordered Performed By: #### L 500.2500 ####[facility] [address] [place], [address] Potassium Normal 3.5-5.1 [facility] Comment on above: Result Comment: Canc elled via OM: MD Ordered Performed By: #### L 500.2500 ####[facility] [address] [place], [address] Basic Metabolic Profile (BMP) Normal 136-145 [facility] Comment on above: Result Comment: Thuy chaves via OM: Ordered Performed By: #### L 500.2500 ####[facility] [address] [place], [address] BUN/CRE 16.7 RATIO Normal 10-20 [facility] Comment on above: Performed By: #### L 500.2500 ####[facility] [address] [place], [address] CA,Total 8.3 mg/dL Low 8.5-10.1 [facility] Comment on above: Performed By: #### L 500.2500 ####[facility] [address] [place], [address] Chloride [Moles/Vol] 104 mmol/L Normal 98-107 [facility] Comment on above: Performed By: #### L 500.2500 ####[facility] [address] [place], [address] CO2 [Moles/Vol] 22.0 mmol/L Normal 21.0-32.0 [facility] Comment on above: Performed By: #### L 500.2500 ####[facility] [address] [place], [address] Creatinine [Mass/Vol] 0.48 mg/dL Low 0.70-1.30 [facility] Comment on above: Result Comment: The validity of the calculated GFR GFRAA in patients over70 years has not been determined. Clinical correlation isessential. Performed By: #### L 500.2500 ####[facility] [address] [place], [address] ECRCL 63.48 ml/min Normal [facility] Comment on above: Performed By: #### L 500.2500 ####[facility] [address] [place], [address] EST GFR - AA 222 mL/min Normal >60 [facility] Comment on above: Result Comment: Afri can Icelandic GFR Calc Performed By: #### L 500.2500 ####[facility] [address] [place], [address] GAP 5 Normal 5-15 [facility] Comment on above: Performed By: #### L 500.2500 ####[facility] [address] [place], [address] GFR/1.73 sq M.predicted among non-blacks MDRD (S/P/Bld) [Vol rate/Area] 183 mL/min/{1.73_m2} Normal >60 [facility] Comment on above: Result Comment: Non- GFR Calc Performed By: #### L 500.2500 ####[facility] [address] [place], [address] Glucose [Mass/Vol] 125 mg/dL High 74-106 [facility] Comment on above: Result Comment: Fast ing Glucose result from 100 to 125 mg/dLsuggests IMPAIRED HOMEOSTASIS per A.D.A. criteria. Performed By: #### L 500.2500 ####[facility] [address] [place], [address] Potassium [Moles/Vol] 4.4 mmol/L Normal 3.5-5.1 [facility] Comment on above: Performed By: #### L 500.2500 ####[facility] [address] [place], [address] Sodium [Moles/Vol] 131 mmol/L Low 136-145 [facility] Comment on above: Performed By: #### L 500.2500 ####[facility] [address] [place], [address] Urea nitrogen [Mass/Vol] 8 mg/dL Normal 7-18 [facility] Comment on above: Performed By: #### L 500.2500 ####[facility] [address] [place], [address] BUN/CRE 17.2 RATIO Normal 10-20 [facility] Comment on above: Performed By: #### L 500.2500 ####[facility] [address] [place], [address] CA,Total 8.2 mg/dL Low 8.5-10.1 [facility] Comment on above: Performed By: #### L 500.2500 ####[facility] [address] [place], [address] Chloride [Moles/Vol] 100 mmol/L Normal 98-107 [facility] Comment on above: Performed By: #### L 500.2500 ####[facility] [address] [place], [address] CO2 [Moles/Vol] 25.0 mmol/L Normal 21.0-32.0 [facility] Comment on above: Performed By: #### L 500.2500 ####[facility] [address] [place], [address] Creatinine [Mass/Vol] 0.46 mg/dL Low 0.70-1.30 [facility] Comment on above: Result Comment: The validity of the calculated GFR GFRAA in patients over70 years has not been determined. Clinical correlation isessential. Performed By: #### L 500.2500 ####[facility] [address] [place], [address] ECRCL 63.48 ml/min Normal [facility] Comment on above: Performed By: #### L 500.2500 ####[facility] [address] [place], [address] EST GFR - AA 230 mL/min Normal >60 [facility] Comment on above: Result Comment: Afri can Icelandic GFR Calc Performed By: #### L 500.2500 ####[facility] [address] [place], [address] GAP 3 Low 5-15 [facility] Comment on above: Performed By: #### L 500.2500 ####[facility] [address] [place], [address] GFR/1.73 sq M.predicted among non-blacks MDRD (S/P/Bld) [Vol rate/Area] 190 mL/min/{1.73_m2} Normal >60 [facility] Comment on above: Result Comment: Non- GFR Calc Performed By: #### L 500.2500 ####[facility] [address] [place], [address] Glucose [Mass/Vol] 92 mg/dL Normal 74-106 [facility] Comment on above: Performed By: #### L 500.2500 ####[facility] [address] [place], [address] Potassium [Moles/Vol] 4.6 mmol/L Normal 3.5-5.1 [facility] Comment on above: Performed By: #### L 500.2500 ####[facility] [address] [place], [address] Sodium [Moles/Vol] 128 mmol/L Low 136-145 [facility] Comment on above: Performed By: #### L 500.2500 ####[facility] [address] [place], [address] Urea nitrogen [Mass/Vol] 8 mg/dL Normal 7-18 [facility] Comment on above: Performed By: #### L 500.2500 ####[facility] [address] [place], [address] BUN/CRE 17.9 RATIO Normal 10-20 [facility] Comment on above: Performed By: #### L 500.2500 ####[facility] [address] [place], [address] CA,Total 7.5 mg/dL Low 8.5-10.1 [facility] Comment on above: Performed By: #### L 500.2500 ####[facility] [address] [place], [address] Chloride [Moles/Vol] 96 mmol/L Low 98-107 [facility] Comment on above: Performed By: #### L 500.2500 ####[facility] [address] [place], [address] CO2 [Moles/Vol] 23.0 mmol/L Normal 21.0-32.0 [facility] Comment on above: Performed By: #### L 500.2500 ####[facility] [address] [place], [address] Creatinine [Mass/Vol] 0.50 mg/dL Low 0.70-1.30 [facility] Comment on above: Result Comment: The validity of the calculated GFR GFRAA in patients over70 years has not been determined. Clinical correlation isessential. Performed By: #### L 500.2500 ####[facility] [address] [place], [address] ECRCL 63.97 ml/min Normal [facility] Comment on above: Performed By: #### L 500.2500 ####[facility] [address] [place], [address] EST GFR - AA 211 mL/min Normal >60 [facility] Comment on above: Result Comment: Afri can Icelandic GFR Calc Performed By: #### L 500.2500 ####[facility] [address] [place], [address] GAP 8 Normal 5-15 [facility] Comment on above: Performed By: #### L 500.2500 ####[facility] [address] [place], [address] GFR/1.73 sq M.predicted among non-blacks MDRD (S/P/Bld) [Vol rate/Area] 174 mL/min/{1.73_m2} Normal >60 [facility] Comment on above: Result Comment: Non- GFR Calc Performed By: #### L 500.2500 ####[facility] [address] [place], [address] Glucose [Mass/Vol] 98 mg/dL Normal 74-106 [facility] Comment on above: Performed By: #### L 500.2500 ####[facility] [address] [place], [address] Potassium [Moles/Vol] 4.0 mmol/L Normal 3.5-5.1 [facility] Comment on above: Performed By: #### L 500.2500 ####[facility] [address] [place], [address] Sodium [Moles/Vol] 126 mmol/L Low 136-145 [facility] Comment on above: Performed By: #### L 500.2500 ####[facility] [address] [place], [address] Urea nitrogen [Mass/Vol] 9 mg/dL Normal 7-18 [facility] Comment on above: Performed By: #### L 500.2500 ####[facility] [address] [place], [address] Bilirubin, totalOrdered By: Goldy Law on 11-07-2024 Bilirubin [Mass/Vol] 0.90 mg/dL 0.20-1.00 [facility] Comment on above: For patients on eltr ombopag therapy, use of Dimension [place] TBIL is not recommended. CBC W/Diff, Automatedon 10-11 Absolute Lymph 0.90 X10 3/uL Normal 0.83-4.51 [facility] Comment on above: Performed By: #### L 501.5200, L500.4050, L501.2300, L100.0100 ####[facility] [address] [place], [address] Absolute Neut 5.8 X10 3/uL Normal 2.0-7.7 [facility] Comment on above: Performed By: #### L 501.5200, L500.4050, L501.2300, L100.0100 ####[facility] [address] [place], [address] Basophils/100 WBC (Bld) 0.4 % Normal 0-1 [facility] Comment on above: Performed By: #### L 501.5200, L500.4050, L501.2300, L100.0100 ####[facility] [address] [place], [address] Eosinophils/100 WBC (Bld) 0.3 % Normal 0-5 [facility] Comment on above: Performed By: #### L 501.5200, L500.4050, L501.2300, L100.0100 ####[facility] [address] [place], [address] Erythrocyte distribution width (RBC) [Ratio] 12.7 % Normal 11.6-14.6 [facility] Comment on above: Performed By: #### L 501.5200, L500.4050, L501.2300, L100.0100 ####[facility] [address] [place], [address] Hematocrit (Bld) [Volume fraction] 33.4 % Low 40-54 [facility] Comment on above: Performed By: #### L 501.5200, L500.4050, L501.2300, L100.0100 ####[facility] [address] [place], [address] Hemoglobin (Bld) [Mass/Vol] 12.1 g/dL Low 13.0-16. 5 [facility] Comment on above: Performed By: #### L 501.5200, L500.4050, L501.2300, L100.0100 ####[facility] [address] [place], [address] IG% 0.400 Normal 0.0-0.9 [facility] Comment on above: Result Comment: IG% - Immature Granulocytes (promyelocytes, myelocytes andmetamyelocytes) > 1% indicates that a LEFT SHIFT is Present. Performed By: #### L 501.5200, L500.4050, L501.2300, L100.0100 ####[facility] [address] [place], [address] Lymphocytes/100 WBC (Bld) 11.7 % Low 19-41 [facility] Comment on above: Performed By: #### L 501.5200, L500.4050, L501.2300, L100.0100 ####[facility] [address] [place], [address] MCH (RBC) [Entitic mass] 31.5 pg Normal 27.0-32.0 [facility] Comment on above: Performed By: #### L 501.5200, L500.4050, L501.2300, L100.0100 ####[facility] [address] [place], [address] MCHC (RBC) [Mass/Vol] 36.2 g/dL High 32-36 [facility] Comment on above: Performed By: #### L 501.5200, L500.4050, L501.2300, L100.0100 ####[facility] [address] [place], [address] MCV (RBC) [Entitic vol] 87.0 fL Normal 80-94 [facility] Comment on above: Performed By: #### L 501.5200, L500.4050, L501.2300, L100.0100 ####[facility] [address] [place], [address] Monocytes/100 WBC (Bld) 11.7 % High 0-10 [facility] Comment on above: Performed By: #### L 501.5200, L500.4050, L501.2300, L100.0100 ####[facility] [address] [place], [address] Neutrophils/100 WBC (Bld) 75.5 % High 47-70 [facility] Comment on above: Performed By: #### L 501.5200, L500.4050, L501.2300, L100.0100 ####[facility] [address] [place], [address] Nucleated RBC (Bld) [#/Vol] 0 10*3/uL Normal 0-5 [facility] Comment on above: Performed By: #### L 501.5200, L500.4050, L501.2300, L100.0100 ####[facility] [address] [place], [address] Platelet mean volume (Bld) [Entitic vol] 9.4 fL Normal 6.2-12.0 [facility] Comment on above: Performed By: #### L 501.5200, L500.4050, L501.2300, L100.0100 ####[facility] [address] [place], [address] Platelets (Bld) [#/Vol] 296 10*3/uL Normal 150-450 [facility] Comment on above: Performed By: #### L 501.5200, L500.4050, L501.2300, L100.0100 ####[facility] [address] [place], [address] RBC (Bld) [#/Vol] 3.84 10*6/uL Low 4.6-6.2 [facility] Comment on above: Performed By: #### L 501.5200, L500.4050, L501.2300, L100.0100 ####[facility] [address] [place], [address] RDW SD 40.1 fl Normal 35.1-43.9 [facility] Comment on above: Performed By: #### L 501.5200, L500.4050, L501.2300, L100.0100 ####[facility] [address] [place], [address] WBC (Bld) [#/Vol] 7.7 10*3/uL Normal 4.4-11.0 [facility] Comment on above: Performed By: #### L 501.5200, L500.4050, L501.2300, L100.0100 ####[facility] [address] [place], [address] Carotid Duplex Ultrasoundon 11-07-2024 Carotid Duplex Ultrasound Normal [facility] Chest without Contraston Chest without Contrast Normal [facility] Comprehensive Metabolic Prof ilon 11-07-2024 Albumin [Mass/Vol] 2.9 g/dL Low 3.2-5.0 [facility] Comment on above: Performed By: #### L 501.5200, L500.4050, L501.2300, L100.0100 ####[facility] [address] [place], [address] Albumin/Globulin [Mass ratio] 0.9 {ratio} Normal 0.9-2.4 [facility] Comment on above: Performed By: #### L 501.5200, L500.4050, L501.2300, L100.0100 ####[facility] [address] [place], [address] ALK P 94 U/L Normal 45-117 [facility] Comment on above: Performed By: #### L 501.5200, L500.4050, L501.2300, L100.0100 ####[facility] [address] [place], [address] ALT [Catalytic activity/Vol] 38 U/L Normal 16-61 [facility] Comment on above: Performed By: #### L 501.5200, L500.4050, L501.2300, L100.0100 ####[facility] [address] [place], [address] AST [Catalytic activity/Vol] 48 U/L High 15-37 [facility] Comment on above: Performed By: #### L 501.5200, L500.4050, L501.2300, L100.0100 ####[facility] [address] [place], [address] Bilirubin [Mass/Vol] 0.90 mg/dL Normal 0.20-1.00 [facility] Comment on above: Result Comment: For patients on eltrombopag therapy, use of Dimension [place] TBIL is not recommended. Performed By: #### L 501.5200, L500.4050, L501.2300, L100.0100 ####[facility] [address] [place], [address] BUN/CRE 19.4 RATIO Normal 10-20 [facility] Comment on above: Performed By: #### L 501.5200, L500.4050, L501.2300, L100.0100 ####[facility] [address] [place], [address] CA,Total 7.9 mg/dL Low 8.5-10.1 [facility] Comment on above: Performed By: #### L 501.5200, L500.4050, L501.2300, L100.0100 ####[facility] [address] [place], [address] Chloride [Moles/Vol] 97 mmol/L Low 98-107 [facility] Comment on above: Performed By: #### L 501.5200, L500.4050, L501.2300, L100.0100 ####[facility] [address] [place], [address] CO2 [Moles/Vol] 24.0 mmol/L Normal 21.0-32.0 [facility] Comment on above: Performed By: #### L 501.5200, L500.4050, L501.2300, L100.0100 ####[facility] [address] [place], [address] Creatinine [Mass/Vol] 0.52 mg/dL Low 0.70-1.30 [facility] Comment on above: Result Comment: The validity of the calculated GFR GFRAA in patients over70 years has not been determined. Clinical correlation isessential. Performed By: #### L 501.5200, L500.4050, L501.2300, L100.0100 ####[facility] [address] [place], [address] ECRCL 63.46 ml/min Normal [facility] Comment on above: Performed By: #### L 501.5200, L500.4050, L501.2300, L100.0100 ####[facility] [address] [place], [address] EST GFR - AA 204 mL/min Normal >60 [facility] Comment on above: Result Comment: Afri can Icelandic GFR Calc Performed By: #### L 501.5200, L500.4050, L501.2300, L100.0100 ####[facility] [address] [place], [address] GAP 4 Low 5-15 [facility] Comment on above: Performed By: #### L 501.5200, L500.4050, L501.2300, L100.0100 ####[facility] [address] [place], [address] GFR/1.73 sq M.predicted among non-blacks MDRD (S/P/Bld) [Vol rate/Area] 169 mL/min/{1.73_m2} Normal >60 [facility] Comment on above: Result Comment: Non- GFR Calc Performed By: #### L 501.5200, L500.4050, L501.2300, L100.0100 ####[facility] [address] [place], [address] Globulin (S) [Mass/Vol] 3.4 g/dL Normal 2.2-4.2 [facility] Comment on above: Performed By: #### L 501.5200, L500.4050, L501.2300, L100.0100 ####[facility] [address] [place], [address] Glucose [Mass/Vol] 98 mg/dL Normal 74-106 [facility] Comment on above: Performed By: #### L 501.5200, L500.4050, L501.2300, L100.0100 ####[facility] [address] [place], [address] Potassium [Moles/Vol] 4.1 mmol/L Normal 3.5-5.1 [facility] Comment on above: Performed By: #### L 501.5200, L500.4050, L501.2300, L100.0100 ####[facility] [address] [place], [address] Sodium [Moles/Vol] 125 mmol/L Low 136-145 [facility] Comment on above: Performed By: #### L 501.5200, L500.4050, L501.2300, L100.0100 ####[facility] [address] [place], [address] T PROT 6.3 g/dL Low 6.4-8.2 [facility] Comment on above: Performed By: #### L 501.5200, L500.4050, L501.2300, L100.0100 ####[facility] [address] [place], [address] Urea nitrogen [Mass/Vol] 10 mg/dL Normal 7-18 [facility] Comment on above: Performed By: #### L 501.5200, L500.4050, L501.2300, L100.0100 ####[facility] [address] [place], [address] Consultation - Intensiviston 11-07-2024 Consultation - Fashion Styling Intern Normal [facility] Echo Completeon 11-07-2024 Echo Complete Normal [facility] H AND P Exam - Hospitaliston 11-07-2024 H&P Exam - Hospitalist Normal [facility] L501.4020on 11-07-2024 TROPONIN-I HS 16 pg/mL Normal 3.0-78.0 [facility] Comment on above: Result Comment: Mary Beth knight Note: New Test Units and Gender Specific Reference Ranges. For more information see Policy Stat Procedure [place] High Sensitivity Troponin (TNIH) and attachments. Performed By: #### L 501.4020 ####[facility] [address] [place], [address] Laboratory - Chemistry and C hemistry - challengeOrdered By: Goldy Law on 11-07-2024 AST [Catalytic activity/Vol] 48 U/L High 15-37 [facility] Magnesiumon 11-07-2024 Magnesium [Mass/Vol] 1.7 mg/dL Normal 1.6-2.6 [facility] Comment on above: Performed By: #### L 501.5200, L500.4050, L501.2300, L100.0100 ####[facility] [address] [place], [address] Magnesium measurementOrdered By: Goldy Law on 11-07-2024 Magnesium [Mass/Vol] 1.7 mg/dL 1.6-2.6 [facility] Methadone, urineOrdered By: Goldy Law on 11-07-2024 Urine Methadone Screen Negative < 300 ng/mL [facility] No Panel InformationOrdered By: Goldy Law on 11-07-2024 Urine Drug Screen Comment [facility] Comment on above: CONFIRMATORY TESTING FOR ALL [...] Urine Osmolality 172 mOsm/KG >50 [facility] Comment on above: Normal Urine Referen ce Ranges Random: 50 - 1200 mOsm/kg H20 depending on fluid intake Random: >850 mOsm/kg after 12 hour fluid restriction 24 hour: ~300 - 900 mOsm/kg H2O Osmolality, Serumon 11-07-20 24 OSMOLALITY,SER 258 mOsm/KG Low 280-301 [facility] Comment on above: Performed By: #### L 501.9520, L3100.5400, L501.7300 ####[facility] [address] [place], [place], [address] Osmolality, Urineon 11-07-20 24 OSMOLALITY,UR 172 mOsm/KG Normal [facility] Comment on above: Result Comment: Norm al Urine Reference Ranges Random: 50 - 1200 mOsm/kg H20 depending on fluid intake Random: >850 mOsm/kg after 12 hour fluid restriction 24 hour: 300 - 900 mOsm/kg H2O Performed By: #### L 501.7400 ####[facility] [address] [place], [address] Osmolality, serumOrdered By: Goldy Law on 11-07-2024 Serum Osmolality 258 mOsm/KG Low 280-301 [facility] Phosphoruson 11-07-2024 Phosphate [Mass/Vol] 2.6 mg/dL Normal 2.5-4.9 [facility] Comment on above: Performed By: #### L 501.5200, L500.4050, L501.2300, L100.0100 ####[facility] [address] [place], [address] Phosphorus measurementOrdere d By: Goldy Law on 11-07-2024 Phosphorus Level 2.6 mg/dL 2.5-4.9 [facility] Prolactin [Mass/Vol]Ordered By: Goldy Law on 11-07-2024 Prolactin 6.2 ng/mL 3.6-25.2 [facility] Comment on above: Performed at: [place] [id number] Director: Sascha Diaz PhD, Phone: [phone] Quantitative urine opiates m easurementOrdered By: Goldy Law on 11-07-2024 Opiates Ql (U) Negative < 300 ng/mL [facility] Serum globulin measurementOr dered By: Goldy Law on 11-07-2024 Globulin (S) [Mass/Vol] 3.4 g/dL 2.2-4.2 [facility] Serum or plasma alanine champagne otransferase (ALT) measurementOrdered By: Goldy Law on 11-07-2024 ALT [Catalytic activity/Vol] 38 U/L 16-61 [facility] Serum or plasma albumin francoise urement (mass/volume)Ordered By: Goldy Law on 11-07-2024 Albumin [Mass/Vol] 2.9 g/dL Low 3.2-5.0 [facility] Serum or plasma alkaline mariola sphatase measurementOrdered By: Goldy Law on 11-07-2024 ALP [Catalytic activity/Vol] 94 U/L 45-117 [facility] TSH QnOrdered By: Goldy aldridge on 11-07-2024 Thyroid Stimulating Hormone (TSH) 1.490 uIU/mL 0.358-3.74 0 [facility] Thyroid Stim Hormone (TSH)on 11-07-2024 TSH 1.490 uIU/mL Normal 0.358-3.74 0 [facility] Comment on above: Performed By: #### L 501.9520, L3100.5400, L501.7300 ####[facility] [address] [place], [address] Total proteinOrdered By: Alirio Law on 11-07-2024 Protein [Mass/Vol] 6.3 g/dL Low 6.4-8.2 [facility] Troponin IOrdered By: Malcolm brambila on 11-07-2024 Troponin I High Sensitivity 16 pg/mL 3.0-78.0 [facility] Comment on above: Please Note: New [place] t Units and Gender Specific Reference Ranges. For more information see Policy Stat Procedure [place] High Sensitivity Troponin (TNIH) and attachments. Urinalysis, Completeon 11-07 WBC 0-5 SEEN Normal 0-5 [facility] Comment on above: Order Comment: CLEAN CATCH Performed By: #### L 400.0001 ####[facility] [address] [place], [address] Urine Drug Screen (VISTA)on 11-07-2024 AMPHETAMINES Negative Normal <1000 ng/mL [facility] Comment on above: Performed By: #### L 505.5000 ####[facility] [address] [place], [address] BARBITIURATES Negative Normal < 200 ng/mL [facility] Comment on above: Performed By: #### L 505.5000 ####[facility] [address] [place], [address] BENZODIAZIPINE Negative Normal < 200 ng/mL [facility] Comment on above: Performed By: #### L 505.5000 ####[facility] [address] [place], [address] COCAINE Negative Normal < 300 ng/mL [facility] Comment on above: Performed By: #### L 505.5000 ####[facility] [address] [place], [address] ECSTACY Negative Normal < 500 ng/mL [facility] Comment on above: Performed By: #### L 505.5000 ####[facility] [address] [place], [address] METHADONE Negative Normal < 300 ng/mL [facility] Comment on above: Performed By: #### L 505.5000 ####[facility] [address] [facility] [address] OPIATES Negative Normal < 300 ng/mL [facility] Comment on above: Performed By: #### L 505.5000 ####[facility] [address] [place], [address] PCP Negative Normal < 25 ng/mL [facility] Comment on above: Performed By: #### L 505.5000 ####[facility] [address] [place], [address] THC Negative Normal < 50 ng/mL [facility] Comment on above: Performed By: #### L 505.5000 ####[facility] [address] [place], [address] VISTA UDS PH 6 Normal [facility] Comment on above: Performed By: #### L 505.5000 ####[facility] [address] [place] [id number] Urine amphetamine measuremen tOrdered By: Goldy Law on 11-07-2024 Amphetamines Ql (U) Negative <1000 ng/mL [facility] Urine barbiturates measureme ntOrdered By: Goldy Law on 11-07-2024 Urine Barbiturates Screen Negative < 200 ng/mL [facility] Urine benzodiazepine levelOr dered By: Goldy Law on 11-07-2024 Benzodiazepines Ql (U) Negative < 200 ng/mL [facility] Urine cocaine levelOrdered B y: Goldy Law on 11-07-2024 Cocaine Ql (U) Negative < 300 ng/mL [facility] Urine jwtnn-9-ggpmkyrnscsagu abinol (THC) measurementOrdered By: Goldy Law on 11-07-2024 Cannabinoids Screen Ql (U) Negative < 50 ng/m L [facility] Urine methylenedioxymethamph etamine (MDMA) measurementOrdered By: Goldy Law on 11-07-2024 MDMA (Ecstasy) Screen Negative < 500 ng/mL [facility] Urine phencyclidine (PCP) de tectionOrdered By: Goldy Law on 11-07-2024 Phencyclidine Ql (U) Negative < 25 ng/mL [facility] 12 Lead EKGon 11-06-2024 12 Lead EKG Normal [facility] Alcohol, Blood (Medical)-Ser umon 11-06-2024 SERUM ETOH 54.0 mg/dL Normal [facility] Comment on above: Result Comment: The serum:whole blood ethanol ratio is approximately 1.14and varies slightly with hematocrit.Medical Alcohol reference interval and critical value innon-tolerant individuals; 50 - 100 Impairment 100 Intoxication 100 - 250 Severe Poisoning 250 - 400 Deep/possible fatal coma Performed By: #### L 100.0100, L501.2450, L300.4310, L501.9100, L300.3900, L501.5425, L500.4050 ####[facility] [address] [place], [place], [id number] Bilirubin Test strip Ql (U)O rdered By: Malcolm Christy on 11-06-2024 Bilirubin Ql (U) Negative Negative [facility] Brain/Head without Contrasto n 11-06-2024 Brain/Head without Contrast Normal [facility] CBC W/Diff, Automatedon - Absolute Lymph 1.98 X10 3/uL Normal 0.83-4.51 [facility] Comment on above: Performed By: #### L 100.0100, L501.2450, L300.4310, L501.9100, L300.3900, L501.5425, L500.4050 ####[facility] [address] [place], [address] Absolute Neut 2.8 X10 3/uL Normal 2.0-7.7 [facility] Comment on above: Performed By: #### L 100.0100, L501.2450, L300.4310, L501.9100, L300.3900, L501.5425, L500.4050 ####[facility] [address] [place], [address] Basophils/100 WBC (Bld) 0.7 % Normal 0-1 [facility] Comment on above: Performed By: #### L 100.0100, L501.2450, L300.4310, L501.9100, L300.3900, L501.5425, L500.4050 ####[facility] [address] [place], [address] Eosinophils/100 WBC (Bld) 2.0 % Normal 0-5 [facility] Comment on above: Performed By: #### L 100.0100, L501.2450, L300.4310, L501.9100, L300.3900, L501.5425, L500.4050 ####[facility] [address] [place], [address] Erythrocyte distribution width (RBC) [Ratio] 12.8 % Normal 11.6-14.6 [facility] Comment on above: Performed By: #### L 100.0100, L501.2450, L300.4310, L501.9100, L300.3900, L501.5425, L500.4050 ####[facility] [address] [place], [address] Hematocrit (Bld) [Volume fraction] 36.0 % Low 40-54 [facility] Comment on above: Performed By: #### L 100.0100, L501.2450, L300.4310, L501.9100, L300.3900, L501.5425, L500.4050 ####[facility] [address] [place], [address] Hemoglobin (Bld) [Mass/Vol] 13.0 g/dL Normal 13.0-16. 5 [facility] Comment on above: Performed By: #### L 100.0100, L501.2450, L300.4310, L501.9100, L300.3900, L501.5425, L500.4050 ####[facility] [address] [place], [address] IG% 0.500 Normal 0.0-0.9 [facility] Comment on above: Result Comment: IG% - Immature Granulocytes (promyelocytes, myelocytes andmetamyelocytes) > 1% indicates that a LEFT SHIFT is Present. Performed By: #### L 100.0100, L501.2450, L300.4310, L501.9100, L300.3900, L501.5425, L500.4050 ####[facility] [address] [place], [address] Lymphocytes/100 WBC (Bld) 33.3 % Normal 19-41 [facility] Comment on above: Performed By: #### L 100.0100, L501.2450, L300.4310, L501.9100, L300.3900, L501.5425, L500.4050 ####[facility] [address] [place], [address] MCH (RBC) [Entitic mass] 31.5 pg Normal 27.0-32.0 [facility] Comment on above: Performed By: #### L 100.0100, L501.2450, L300.4310, L501.9100, L300.3900, L501.5425, L500.4050 ####[facility] [address] [place], [address] MCHC (RBC) [Mass/Vol] 36.1 g/dL High 32-36 [facility] Comment on above: Performed By: #### L 100.0100, L501.2450, L300.4310, L501.9100, L300.3900, L501.5425, L500.4050 ####[facility] [address] [place], [address] MCV (RBC) [Entitic vol] 87.2 fL Normal 80-94 [facility] Comment on above: Performed By: #### L 100.0100, L501.2450, L300.4310, L501.9100, L300.3900, L501.5425, L500.4050 ####[facility] [address] [place], [address] Monocytes/100 WBC (Bld) 17.1 % High 0-10 [facility] Comment on above: Performed By: #### L 100.0100, L501.2450, L300.4310, L501.9100, L300.3900, L501.5425, L500.4050 ####[facility] [address] [place], [address] Neutrophils/100 WBC (Bld) 46.4 % Low 47-70 [facility] Comment on above: Performed By: #### L 100.0100, L501.2450, L300.4310, L501.9100, L300.3900, L501.5425, L500.4050 ####[facility] [address] [place], [address] Nucleated RBC (Bld) [#/Vol] 0 10*3/uL Normal 0-5 [facility] Comment on above: Performed By: #### L 100.0100, L501.2450, L300.4310, L501.9100, L300.3900, L501.5425, L500.4050 ####[facility] [address] [place], [address] Platelet mean volume (Bld) [Entitic vol] 9.4 fL Normal 6.2-12.0 [facility] Comment on above: Performed By: #### L 100.0100, L501.2450, L300.4310, L501.9100, L300.3900, L501.5425, L500.4050 ####[facility] [address] [place], [address] Platelets (Bld) [#/Vol] 314 10*3/uL Normal 150-450 [facility] Comment on above: Performed By: #### L 100.0100, L501.2450, L300.4310, L501.9100, L300.3900, L501.5425, L500.4050 ####[facility] [address] [place], [address] RBC (Bld) [#/Vol] 4.13 10*6/uL Low 4.6-6.2 [facility] Comment on above: Performed By: #### L 100.0100, L501.2450, L300.4310, L501.9100, L300.3900, L501.5425, L500.4050 ####[facility] [address] [place], [address] RDW SD 40.6 fl Normal 35.1-43.9 [facility] Comment on above: Performed By: #### L 100.0100, L501.2450, L300.4310, L501.9100, L300.3900, L501.5425, L500.4050 ####[facility] [address] [place], [address] WBC (Bld) [#/Vol] 6.0 10*3/uL Normal 4.4-11.0 [facility] Comment on above: Performed By: #### L 100.0100, L501.2450, L300.4310, L501.9100, L300.3900, L501.5425, L500.4050 ####[facility] [address] [place], [address] Comprehensive Metabolic Prof ilon 11-06-2024 Albumin [Mass/Vol] 3.0 g/dL Low 3.2-5.0 [facility] Comment on above: Order Comment: 1Y Performed By: #### L 100.0100, L501.2450, L300.4310, L501.9100, L300.3900, L501.5425, L500.4050 ####[facility] [address] [place], [address] Albumin/Globulin [Mass ratio] 0.8 {ratio} Low 0.9-2.4 [facility] Comment on above: Order Comment: 1Y Performed By: #### L 100.0100, L501.2450, L300.4310, L501.9100, L300.3900, L501.5425, L500.4050 ####[facility] [address] [place], [address] ALK P 110 U/L Normal 45-117 [facility] Comment on above: Order Comment: 1Y Performed By: #### L 100.0100, L501.2450, L300.4310, L501.9100, L300.3900, L501.5425, L500.4050 ####[facility] [address] [place], [address] ALT [Catalytic activity/Vol] 38 U/L Normal 16-61 [facility] Comment on above: Order Comment: 1Y Performed By: #### L 100.0100, L501.2450, L300.4310, L501.9100, L300.3900, L501.5425, L500.4050 ####[facility] [address] [place], [address] AST [Catalytic activity/Vol] 48 U/L High 15-37 [facility] Comment on above: Order Comment: 1Y Performed By: #### L 100.0100, L501.2450, L300.4310, L501.9100, L300.3900, L501.5425, L500.4050 ####[facility] [address] [place], [address] Bilirubin [Mass/Vol] 0.70 mg/dL Normal 0.20-1.00 [facility] Comment on above: Order Comment: 1Y Result Comment: For patients on eltrombopag therapy, use of Dimension [place] TBIL is not recommended. Performed By: #### L 100.0100, L501.2450, L300.4310, L501.9100, L300.3900, L501.5425, L500.4050 ####[facility] [address] [place], [address] BUN/CRE 15.3 RATIO Normal 10-20 [facility] Comment on above: Order Comment: 1Y Performed By: #### L 100.0100, L501.2450, L300.4310, L501.9100, L300.3900, L501.5425, L500.4050 ####[facility] [address] [place], [address] CA,Total 8.5 mg/dL Normal 8.5-10.1 [facility] Comment on above: Order Comment: 1Y Performed By: #### L 100.0100, L501.2450, L300.4310, L501.9100, L300.3900, L501.5425, L500.4050 ####[facility] [address] [place], [address] Chloride [Moles/Vol] 89 mmol/L Low 98-107 [facility] Comment on above: Order Comment: 1Y Performed By: #### L 100.0100, L501.2450, L300.4310, L501.9100, L300.3900, L501.5425, L500.4050 ####[facility] [address] [place], [address] CO2 [Moles/Vol] 25.0 mmol/L Normal 21.0-32.0 [facility] Comment on above: Order Comment: 1Y Performed By: #### L 100.0100, L501.2450, L300.4310, L501.9100, L300.3900, L501.5425, L500.4050 ####[facility] [address] [place], [address] Creatinine [Mass/Vol] 0.66 mg/dL Low 0.70-1.30 [facility] Comment on above: Order Comment: 1Y Result Comment: The validity of the calculated GFR GFRAA in patients over70 years has not been determined. Clinical correlation isessential. Performed By: #### L 100.0100, L501.2450, L300.4310, L501.9100, L300.3900, L501.5425, L500.4050 ####[facility] [address] [place], [address] ECRCL 63.97 ml/min Normal [facility] Comment on above: Order Comment: 1Y Performed By: #### L 100.0100, L501.2450, L300.4310, L501.9100, L300.3900, L501.5425, L500.4050 ####[facility] [address] [place], [address] EST GFR - AA 155 mL/min Normal >60 [facility] Comment on above: Order Comment: 1Y Result Comment: Afri can Icelandic GFR Calc Performed By: #### L 100.0100, L501.2450, L300.4310, L501.9100, L300.3900, L501.5425, L500.4050 ####[facility] [address] [place], [address] GAP 7 Normal 5-15 [facility] Comment on above: Order Comment: 1Y Performed By: #### L 100.0100, L501.2450, L300.4310, L501.9100, L300.3900, L501.5425, L500.4050 ####[facility] [address] [place], [address] GFR/1.73 sq M.predicted among non-blacks MDRD (S/P/Bld) [Vol rate/Area] 128 mL/min/{1.73_m2} Normal >60 [facility] Comment on above: Order Comment: 1Y Result Comment: Non- GFR Calc Performed By: #### L 100.0100, L501.2450, L300.4310, L501.9100, L300.3900, L501.5425, L500.4050 ####[facility] [address] [place], [address] Globulin (S) [Mass/Vol] 3.9 g/dL Normal 2.2-4.2 [facility] Comment on above: Order Comment: 1Y Performed By: #### L 100.0100, L501.2450, L300.4310, L501.9100, L300.3900, L501.5425, L500.4050 ####[facility] [address] [place], [address] Glucose [Mass/Vol] 83 mg/dL Normal 74-106 [facility] Comment on above: Order Comment: 1Y Performed By: #### L 100.0100, L501.2450, L300.4310, L501.9100, L300.3900, L501.5425, L500.4050 ####[facility] [address] [place], [address] Potassium [Moles/Vol] 3.4 mmol/L Low 3.5-5.1 [facility] Comment on above: Order Comment: 1Y Performed By: #### L 100.0100, L501.2450, L300.4310, L501.9100, L300.3900, L501.5425, L500.4050 ####[facility] [address] [place], [address] Sodium [Moles/Vol] 122 mmol/L Low 136-145 [facility] Comment on above: Order Comment: 1Y Performed By: #### L 100.0100, L501.2450, L300.4310, L501.9100, L300.3900, L501.5425, L500.4050 ####[facility] [address] [place], [address] T PROT 6.9 g/dL Normal 6.4-8.2 [facility] Comment on above: Order Comment: 1Y Performed By: #### L 100.0100, L501.2450, L300.4310, L501.9100, L300.3900, L501.5425, L500.4050 ####[facility] [address] [place], [address] Urea nitrogen [Mass/Vol] 10 mg/dL Normal 7-18 [facility] Comment on above: Order Comment: 1Y Performed By: #### L 100.0100, L501.2450, L300.4310, L501.9100, L300.3900, L501.5425, L500.4050 ####[facility] [address] [place], [address] Emergency Department Summary on 11-06-2024 Emergency Department Summary Normal [facility] Epithelial cells.squamous LM Ql (Urine sed)Ordered By: Malcolm Christy on 11-06-2024 Epithelial cells.squamous LM.HPF (Urine sed) [#/Area] 0 /[HPF] 0-5 [facility] Glucose Ql (U)Ordered By: Josef erik Abrahamanna on 11-06-2024 Urine Glucose (UA) Normal mg/dl Normal [facility] Influenza virus A and B and SARS-CoV-2 (COVID-19) and Respiratory syncytial virus RNAOrdered By: Malcolm Christy on 11-06-2024 SARS-CoV-2 (COVID-19) RNA ALVARO+probe Ql (Unsp spec) [facility] International normalized rat io (INR) calculationOrdered By: Malcolmerik Christy on 11-06-2024 INR Coag (Bld) [Relative time] 0.9 {INR} [facility] Ketones Test strip Ql (U)Ord ered By: Malcolmerik Christy on 11-06-2024 Ketones Ql (U) Negative Negative [facility] L501.5425on 11-06-2024 TROPONIN-I HS 14 pg/mL Normal 3.0-78.0 [facility] Comment on above: Order Comment: 1Y Result Comment: Plea se Note: New Test Units and Gender Specific Reference Ranges. For more information see Policy Stat Procedure [place] High Sensitivity Troponin (TNIH) and attachments. Performed By: #### L 100.0100, L501.2450, L300.4310, L501.9100, L300.3900, L501.5425, L500.4050 ####[facility] [address] [place], [place], [id number] Lipaseon 11-06-2024 Lipase [Catalytic activity/Vol] 35 U/L Normal 13-75 [facility] Comment on above: Order Comment: 1Y Result Comment: Plea se note:LIPASE revised reference range effective 23.New Lipase methodology. Expected to produce lower valuesthan the previous assay method.NEW Reference Range: 13 - 75 U/L Performed By: #### L 100.0100, L501.2450, L300.4310, L501.9100, L300.3900, L501.5425, L500.4050 ####[facility] [address] [place], [place], [phone] Lipase measurementOrdered By : Malcolm Christy on 11-06-2024 Lipase [Catalytic activity/Vol] 35 U/L 13-75 [facility] Comment on above: Please note:LIPASE r evised reference range effective 23. New Lipase methodology. Expected to produce lower values than the previous assay method. NEW Reference Range: 13 - 75 U/L M100.678on 11-06-2024 M100.678 Pending SARS-CoV-2 (COVID 19) Negative INFLUENZA A Negative INFLUENZA B Negative RSV PCR Negative Normal [facility] Comment on above: Performed By: #### M 100.678 ####[facility] [address] [place], [place], [phone] Microscopic analysis of urin e for red blood cells (RBC)Ordered By: Malcolm Christy on 11-06-2024 Urine RBC 0 SEEN /hpf 0-5 [facility] Mucus LM Ql (Urine sed)Order ed By: Malcolm Christy on 11-06-2024 Mucus Ql (Urine sed) 0 SEEN /hpf [facility] Nitrite Test strip Ql (U)Ord ered By: Malcolm Christy on 11-06-2024 Nitrite Ql (U) Negative Negative [facility] Partial Thromboplast Timeon 11-06-2024 aPTT Coag (Bld) [Time] 31.0 s Normal 24.1-36.2 [facility] Comment on above: Performed By: #### L 100.0100, L501.2450, L300.4310, L501.9100, L300.3900, L501.5425, L500.4050 ####[facility] [address] [place], [place], [phone] Protein Test strip Ql (U)Ord ered By: Malcolm Christy on 11-06-2024 Protein Ql (U) Negative Negative [facility] Prothrombin Time w/INRon INR Coag (PPP) [Relative time] 0.9 {INR} Normal [facility] Comment on above: Performed By: #### L 100.0100, L501.2450, L300.4310, L501.9100, L300.3900, L501.5425, L500.4050 ####[facility] [address] [place], [address] PT Coag (PPP) [Time] 12.6 s Normal 11.7-14.9 [facility] Comment on above: Performed By: #### L 100.0100, L501.2450, L300.4310, L501.9100, L300.3900, L501.5425, L500.4050 ####[facility] [address] [facility] [address] Prothrombin timeOrdered By: Malcolm Christy on 11-06-2024 PT Coag (PPP) [Time] 12.6 s 11.7-14.9 [facility] Serum ethanol measurementOrd ered By: Malcolm Christy on 11-06-2024 Ethyl Alcohol Level 54.0 mg/dL [facility] Comment on above: The serum:whole bloo d ethanol ratio is approximately 1.14and varies slightly with hematocrit. Medical Alcohol reference interval and critical value innon-tolerant individuals; 50 - 100 Impairment 100 Intoxication 100 - 250 Severe Poisoning 250 - 400 Deep/possible fatal coma Urinalysis, Completeon 11-06 BACTERIA 0 SEEN Normal None Seen [facility] Comment on above: Order Comment: CLEAN CATCH Performed By: #### L 400.0001 ####[facility] [address] [facility] [address] EPI,SQUAMOUS 0 SEEN Normal 0-5 [facility] Comment on above: Order Comment: CLEAN CATCH Performed By: #### L 400.0001 ####[facility] [address] [place], [address] Mucus Ql (Urine sed) 0 SEEN Normal [facility] Comment on above: Order Comment: CLEAN CATCH Performed By: #### L 400.0001 ####[facility] [address] [place], [address] RBC 0 SEEN Normal 0-5 [facility] Comment on above: Order Comment: CLEAN CATCH Performed By: #### L 400.0001 ####[facility] [address] [place], [address] Urine blood detectionOrdered By: Malcolm Christy on 11-06-2024 Urine Occult Blood Negative Negative [facility] Urine clarityOrdered By: Leticia Christy on 11-06-2024 Clarity (U) Sl. Cloudy Clear [facility] Urine color determinationOrd ered By: Malcolm Christy on 11-06-2024 Color (U) Yellow Yellow [facility] Urine leukocyte esterase det ection by dipstickOrdered By: Malcolm Christy on 11-06-2024 Leukocyte esterase Test strip Ql (U) 25 /ul High Negative [facility] Urine pHOrdered By: Malcolm schofield on 11-06-2024 pH (U) 6.5 [pH] 5.0 - 8.0 [facility] Urine sediment bacteria coun t by microscopy (number/high power field)Ordered By: Malcolm Christy on 11-06-2024 Bacteria LM.HPF (Urine sed) [#/Area] 0 /[HPF] None Seen [facility] Urine specific gravity measu rementOrdered By: Malcolm Christy on 11-06-2024 Specific gravity (U) [Rel density] 1.015 1.002-1.03 0 [facility] Urobilinogen Ql (U)Ordered B y: Malcolm Christy on 11-06-2024 Urine Urobilinogen Normal mg/dl Normal [facility] White blood cell countOrdere d By: Malcolm Christy on 11-06-2024 Urine WBC 0-5 SEEN /hpf 0-5 [facility] aPTT Coag (PPP) [Time]Ordere d By: Malcolm Christy on 11-06-2024 aPTT Coag (Bld) [Time] 31.0 s 24.1-36.2 [facility] Bedside Glucoseon 09-08-2024 FINGERSTICK GLU 97 mg/dL Normal 74-106 [facility] Comment on above: Result Comment: HIMA MAK OF PATIENT CARE PER NURSING PROTOCOL Performed By: #### L 501.080 ####[facility] [address] [place], [address] 12 Lead EKGon 09-07-2024 12 Lead EKG Normal [facility] Alcohol, Blood (Medical)-Ser umon 09-07-2024 SERUM ETOH 39.0 mg/dL Normal [facility] Comment on above: Result Comment: The serum:whole blood ethanol ratio is approximately 1.14and varies slightly with hematocrit.Medical Alcohol reference interval and critical value innon-tolerant individuals; 50 - 100 Impairment 100 Intoxication 100 - 250 Severe Poisoning 250 - 400 Deep/possible fatal coma Performed By: #### L 100.0100, L500.2500, L501.9100 ####[facility] [address] [place], [address] Basic Metabolic Profile (BMP )on 09-07-2024 BUN/CRE 11.8 RATIO Normal - [facility] Comment on above: Performed By: #### L 100.0100, L500.2500, L501.9100 ####[facility] [address] [place], [address] CA,Total 8.9 mg/dL Normal 8.5-10.1 [facility] Comment on above: Performed By: #### L 100.0100, L500.2500, L501.9100 ####[facility] [address] [place], [address] Chloride [Moles/Vol] 92 mmol/L Low 98-107 [facility] Comment on above: Performed By: #### L 100.0100, L500.2500, L501.9100 ####[facility] [address] [place], [address] CO2 [Moles/Vol] 23.0 mmol/L Normal 21.0-32.0 [facility] Comment on above: Performed By: #### L 100.0100, L500.2500, L501.9100 ####[facility] [address] [place], [address] Creatinine [Mass/Vol] 0.68 mg/dL Low 0.70-1.30 [facility] Comment on above: Result Comment: The validity of the calculated GFR GFRAA in patients over70 years has not been determined. Clinical correlation isessential. Performed By: #### L 100.0100, L500.2500, L501.9100 ####[facility] [address] [place], [address] ECRCL 67.09 ml/min Normal [facility] Comment on above: Performed By: #### L 100.0100, L500.2500, L501.9100 ####[facility] [address] [place], [address] EST GFR - AA 149 mL/min Normal >60 [facility] Comment on above: Result Comment: Afri can Icelandic GFR Calc Performed By: #### L 100.0100, L500.2500, L501.9100 ####[facility] [address] [place], [address] GAP 10 Normal 5-15 [facility] Comment on above: Performed By: #### L 100.0100, L500.2500, L501.9100 ####[facility] [address] [place], [address] GFR/1.73 sq M.predicted among non-blacks MDRD (S/P/Bld) [Vol rate/Area] 123 mL/min/{1.73_m2} Normal >60 [facility] Comment on above: Result Comment: Non- GFR Calc Performed By: #### L 100.0100, L500.2500, L501.9100 ####[facility] [address] [place], [address] Glucose [Mass/Vol] 90 mg/dL Normal 74-106 [facility] Comment on above: Performed By: #### L 100.0100, L500.2500, L501.9100 ####[facility] [address] [place], [address] Potassium [Moles/Vol] 3.6 mmol/L Normal 3.5-5.1 [facility] Comment on above: Performed By: #### L 100.0100, L500.2500, L501.9100 ####[facility] [address] [place], [address] Sodium [Moles/Vol] 125 mmol/L Low 136-145 [facility] Comment on above: Performed By: #### L 100.0100, L500.2500, L501.9100 ####[facility] [address] [place], [address] Urea nitrogen [Mass/Vol] 8 mg/dL Normal 7-18 [facility] Comment on above: Performed By: #### L 100.0100, L500.2500, L501.9100 ####[facility] [address] [place], [address] Brain/Head without Contrasto n 10-30-2023 Brain/Head without Contrast Normal [facility] CBC W/Diff, Automatedon 10-3 0-4 Absolute Lymph 2.08 X10 3/uL Normal 0.83-4.51 [facility] Comment on above: Performed By: #### L 100.0100, L500.2500, L501.9100 ####[facility] [address] [place], [address] Absolute Neut 5.5 X10 3/uL Normal 2.0-7.7 [facility] Comment on above: Performed By: #### L 100.0100, L500.2500, L501.9100 ####[facility] [address] [place], [address] Basophils/100 WBC (Bld) 0.8 % Normal 0-1 [facility] Comment on above: Performed By: #### L 100.0100, L500.2500, L501.9100 ####[facility] [address] [place], [address] Eosinophils/100 WBC (Bld) 1.9 % Normal 0-5 [facility] Comment on above: Performed By: #### L 100.0100, L500.2500, L501.9100 ####[facility] [address] [place], [address] Erythrocyte distribution width (RBC) [Ratio] 12.3 % Normal 11.6-14.6 [facility] Comment on above: Performed By: #### L 100.0100, L500.2500, L501.9100 ####[facility] [address] [place], [address] Hematocrit (Bld) [Volume fraction] 41.0 % Normal 40-54 [facility] Comment on above: Performed By: #### L 100.0100, L500.2500, L501.9100 ####[facility] [address] [place], [address] Hemoglobin (Bld) [Mass/Vol] 14.6 g/dL Normal 13.0-16. 5 [facility] Comment on above: Performed By: #### L 100.0100, L500.2500, L501.9100 ####[facility] [address] [place], [address] IG% 1.000 High 0.0-0.9 [facility] Comment on above: Result Comment: IG% - Immature Granulocytes (promyelocytes, myelocytes andmetamyelocytes) > 1% indicates that a LEFT SHIFT is Present. Performed By: #### L 100.0100, L500.2500, L501.9100 ####[facility] [address] [place], [address] Lymphocytes/100 WBC (Bld) 22.9 % Normal 19-41 [facility] Comment on above: Performed By: #### L 100.0100, L500.2500, L501.9100 ####[facility] [address] [place], [address] MCH (RBC) [Entitic mass] 31.6 pg Normal 27.0-32.0 [facility] Comment on above: Performed By: #### L 100.0100, L500.2500, L501.9100 ####[facility] [address] [place], [address] MCHC (RBC) [Mass/Vol] 35.6 g/dL Normal 32-36 [facility] Comment on above: Performed By: #### L 100.0100, L500.2500, L501.9100 ####[facility] [address] [place], [address] MCV (RBC) [Entitic vol] 88.7 fL Normal 80-94 [facility] Comment on above: Performed By: #### L 100.0100, L500.2500, L501.9100 ####[facility] [address] [place], [address] Monocytes/100 WBC (Bld) 13.2 % High 0-10 [facility] Comment on above: Performed By: #### L 100.0100, L500.2500, L501.9100 ####[facility] [address] [place], [address] Neutrophils/100 WBC (Bld) 60.2 % Normal 47-70 [facility] Comment on above: Performed By: #### L 100.0100, L500.2500, L501.9100 ####[facility] [address] [place], [address] Nucleated RBC (Bld) [#/Vol] 0 10*3/uL Normal 0-5 [facility] Comment on above: Performed By: #### L 100.0100, L500.2500, L501.9100 ####[facility] [address] [place], [address] Platelet mean volume (Bld) [Entitic vol] 9.1 fL Normal 6.2-12.0 [facility] Comment on above: Performed By: #### L 100.0100, L500.2500, L501.9100 ####[facility] [address] [place], [address] Platelets (Bld) [#/Vol] 457 10*3/uL High 150-450 [facility] Comment on above: Performed By: #### L 100.0100, L500.2500, L501.9100 ####[facility] [address] [place], [address] RBC (Bld) [#/Vol] 4.62 10*6/uL Normal 4.6-6.2 [facility] Comment on above: Performed By: #### L 100.0100, L500.2500, L501.9100 ####[facility] [address] [place], [address] RDW SD 40.1 fl Normal 35.1-43.9 [facility] Comment on above: Performed By: #### L 100.0100, L500.2500, L501.9100 ####[facility] [address] [place], [address] WBC (Bld) [#/Vol] 9.1 10*3/uL Normal 4.4-11.0 [facility] Comment on above: Performed By: #### L 100.0100, L500.2500, L501.9100 ####[facility] [address] [place], [address] Emergency Department Summary on 09-07-2024 Emergency Department Summary Normal [facility] M100.678on 09-07-2024 M100.678 Pending SARS-CoV-2 (COVID 19) Negative INFLUENZA A Negative INFLUENZA B Negative RSV PCR Negative Normal [facility] Comment on above: Performed By: #### M 100.678 ####[facility] [address] [place], [place], [address] .GFRon 06-16-2024 GFR 115 ml/min/1.73sqm Normal [facility] [place] Comment on above: Result Comment: GFR Population [...] square meters Performed By: #### G , [facility] #### [address] [address] GFR Non- 94 ml/min/1.73sqm Normal [facility] ([place] Comment on above: Result Comment: GFR Population [...] Performed By: #### G , CMP #### [address] [address] CMPon 06-16-2024 Albumin Level 3.4 G/dL Normal 3.4-4.8 [facility] ([place] Comment on above: Performed By: #### Mary LOPEZ, CMP #### [address] [address] Albumin/Globulin [Mass ratio] 0.8 {ratio} Low 1.1-2.5 [facility] ([place] Comment on above: Performed By: #### Mary LOPEZ, CMP #### [address] [address] ALP [Catalytic activity/Vol] 105 U/L Normal 40-135 [facility] ([place] Comment on above: Performed By: #### Mary LOPEZ, CMP #### [address] [address] ALT [Catalytic activity/Vol] 30 U/L Normal 16-63 [facility] ([place] Comment on above: Performed By: #### Mary LOPEZ, CMP #### [address] [address] AST [Catalytic activity/Vol] 35 U/L Normal 10-40 [facility] ([place] Comment on above: Performed By: #### Mary LOPZE, CMP #### [address] [address] Bili Total 1.0 mg/dL Normal 0.2-1.0 [facility] ([place] Comment on above: Result Comment: Use of this assay is not recommended for patients undergoing treatment with eltrombopag due to the potential for falsely elevated results. Performed By: #### G , CMP #### [address] [address] BUN/Creatinine Ratio 12 ratio Normal 7-27 [facility] ([place] Comment on above: Performed By: #### Mary LOPEZ, CMP #### [address] [address] Calcium [Mass/Vol] 9.2 mg/dL Normal 8.4-10.2 [facility] ([place] Comment on above: Performed By: #### G , CMP #### [address] [address] Chloride [Moles/Vol] 99 mmol/L Normal 98-107 [facility] ([place] Comment on above: Performed By: #### G FR, CMP #### [address] [address] CO2 [Moles/Vol] 30 mmol/L Normal 23-31 [facility] ([place] Comment on above: Performed By: #### G , CMP #### [address] [address] Creatinine [Mass/Vol] 0.81 mg/dL Normal 0.70-1.30 [facility] ([place] Comment on above: Performed By: #### G , CMP #### [address] [address] Electrolyte Balance 5.0 mEq/L Normal 4.0-15.0 [facility] ([place]) Comment on above: Performed By: #### G , CMP #### [address] [address] Globulin 4.1 G/dL Normal [facility] ([place] Comment on above: Performed By: #### G FR, CMP #### [address] [address] Glucose [Mass/Vol] 95 mg/dL Normal 80-115 [facility] ([place] Comment on above: Performed By: #### G FR, CMP #### [address] [address] Potassium [Moles/Vol] 5.1 mmol/L Normal 3.5-5.1 [facility] ([place] Comment on above: Performed By: #### G FR, CMP #### [address] [address] Sodium [Moles/Vol] 134 mmol/L Low 136-145 [facility] ([place] Comment on above: Performed By: #### G FR, CMP #### [id number] [place], [place] [address] Total Protein 7.5 G/dL Normal 6.4-8.2 [facility] ([place] Comment on above: Performed By: #### G FR, CMP #### [facility] [address] [place], [place] [address] Urea nitrogen [Mass/Vol] 10 mg/dL Normal 7-18 [facility] ([place] Comment on above: Performed By: #### G FR, CMP #### [id number] [place], [place] [address] LABORATORYOrdered By: SYSTEM SYSTEM on 06-16-2024 Albumin [...] spec) [#/Vol] 2.20 10*3/uL 0.83-4.51 [facility] Activated partial thrombopla stin time (aPTT) in platelet poor plasma by coagulation aOrdered By: Pierre Catalan on 01-08-2024 aPTT Coag (PPP) [Time] 32.2 s 24.1-36.2 [facility] Automated lymphocyte count a s percentage of total leukocytesOrdered By: Emma Wilson on 01-08-2024 Lymphocytes/100 WBC Auto (Unsp spec) 25.8 % 19-41 [facility] Basophil percentageOrdered B y: Emma Wilson on 01-08-2024 Basophils/100 WBC (Bld) 0.5 % 0-1 [facility] [place] [facility] Bilirubin [Mass/Vol] 0.60 mg/dL 0.20-1.00 [facility] Comment on above: For patients on eltr ombopag therapy, use of Dimension [place] TBIL is not recommended. Chloride [Moles/Vol] 107 mmol/L 98-107 [facility] Cholesterol [Mass/Vol] 159 mg/dL <200 [facility] Comment on above: <200 mg/dL Desirable 200-240 mg/dL Borderline >240 mg/dL High Risk Eosinophils/100 WBC (Bld) 0.9 % 0-5 [facility] Glucose [Mass/Vol] 84 mg/dL 74-106 [facility] Hemoglobin (Bld) [Mass/Vol] 13.4 g/dL 13.0-16. 5 [facility] Monocytes/100 WBC (Bld) 9.7 % 0-10 [facility] [place] [facility] Neutrophils (Bld) [#/Vol] 5.4 10*3/uL 2.0-7.7 [facility] Neutrophils/100 WBC (Bld) 63.0 % 47-70 [facility] Potassium [Moles/Vol] 4.4 mmol/L 3.5-5.1 [facility] Protein [Mass/Vol] 6.4 g/dL 6.4-8.2 [facility] Sodium [Moles/Vol] 134 mmol/L 136-145 [facility] Triglyceride [Mass/Vol] 61 mg/dL <199 [facility] [place] [facility] Comment on above: The drugs N-Acetylcy steine and Metamizole may falsely depress this assay.Serum Triglycerides Reference Interval Normal <150 mg/dL Borderline high 150 - 199 mg/dL High 200 - 499 mg/dL Very High > or = 500 mg/dL WBC (Bld) [#/Vol] 8.5 10*3/uL 4.4-11.0 [facility] Determination of erythrocyte mean corpuscular volume (MCV)Ordered By: Emma Wilson on 01-08-2024 MCV (RBC) [Entitic vol] 89.2 fL 80-94 [facility] [place] [facility] Erythrocyte distribution wid th ratioOrdered By: Emma Wilson on 01-08-2024 Erythrocyte distribution width (RBC) [Ratio] 13.1 % 11.6-14.6 [facility] Erythrocyte distribution wid th standard deviationOrdered By: Emma Wilson on 01-08-2024 Erythrocyte distribution width (RBC) [Entitic vol] 42.7 fL 35.1-43.9 [facility] Hematocrit Auto (Bld) [Volum e fraction]Ordered By: Emma Wilson on 01-08-2024 Hematocrit (Bld) [Volume fraction] 38.9 % 40-54 [facility] Immature granulocytes/100 WB C Auto (Bld)Ordered By: Emma Wilson on 01-08-2024 Immature granulocytes/100 WBC (Bld) 0.100 % 0.0-0.9 [facility] Comment on above: IG% - Immature Granu locytes (promyelocytes, myelocytes and metamyelocytes) > 1% indicates that a LEFT SHIFT is Present. Laboratory - Chemistry and C hemistry - challengeOrdered By: Emma Wilson on 01-08-2024 Albumin/Globulin [Mass ratio] 0.8 {ratio} 0.9-2.4 [facility] ALP [Catalytic activity/Vol] 93 U/L 45-117 [facility] ALT [Catalytic activity/Vol] 35 U/L 16-61 [facility] Cholesterol in HDL [Mass/Vol] 71 mg/dL >40 [facility] Comment on above: The drugs N-Acetylcy steine and Metamizole may falsely depress this assay. Reference Range HDL <40 mg/dL Low HDL Cholesterol HDL >or= 60 mg/dL High HDL Cholesterol Cholesterol in LDL [Mass/Vol] 76 mg/dL 0-130 [facility] CO2 [Moles/Vol] 24.0 mmol/L 21.0-32.0 [facility] Globulin (S) [Mass/Vol] 3.6 g/dL 2.2-4.2 [facility] [place] [facility] Urea nitrogen/Creatinine [Mass ratio] 17.5 mg/mg 10-20 [facility] Laboratory - CoagulationOrde red By: Pierre Catalan on 01-08-2024 INR Coag (Bld) [Relative time] 1.0 {INR} [facility] PT Coag (PPP) [Time] 12.7 s 11.7-14.9 [facility] Laboratory - Hematology and Cell countsOrdered By: Emma Wilson on 01-08-2024 MCH (RBC) [Entitic mass] 30.7 pg 27.0-32.0 [facility] MCHC (RBC) [Mass/Vol] 34.4 g/dL 32-36 [facility] Nucleated RBC/100 WBC (Bld) [Ratio] 0 % 0-5 [facility] Platelet mean volume (Bld) [Entitic vol] 9.6 fL 6.2-12.0 [facility] Platelets (Bld) [#/Vol] 289 10*3/uL 150-450 [facility] Laboratory - Hematology and Cell countsOrdered By: Pierre Catalan on 01-08-2024 Platelets (Bld) [#/Vol] 327 10*3/uL 150-450 [facility] No Panel InformationOrdered By: Emma Wilson on 01-08-2024 Troponin I High Sensitivity 16 pg/mL 3.0-78.0 [facility] Comment on above: Please Note: New [place] t Units and Gender Specific Reference Ranges. For more information see Policy Stat Procedure [place] High Sensitivity Troponin (TNIH) and attachments. Estimated Creatinine Clearance Calc 67.50 ml/min [facility] Estimated GFR (MDRD) Amer 163 mL/min >60 [facility] Comment on above: GFR Calc Estimated GFR (MDRD) Non-Af Amer 135 mL/min >60 [facility] Comment on above: Non- GFR Calc VLDL Cholesterol 12 mg/dL 5-40 [facility] RBC Auto (Bld) [#/Vol]Ordere d By: Emma Wilson on 01-08-2024 RBC (Bld) [#/Vol] 4.36 10*6/uL 4.6-6.2 [facility] Serum or plasma calcium francoise urement (mass/volume)Ordered By: Emma Wilson on 01-08-2024 Calcium [Mass/Vol] 8.5 mg/dL 8.5-10.1 [facility] Serum or plasma creatinine m easurement (mass/volume)Ordered By: Emma Wilson on 01-08-2024 Creatinine [Mass/Vol] 0.63 mg/dL 0.70-1.30 [facility] Comment on above: The validity of the calculated GFR & GFRAA in patients over 70 years has not been determined. Clinical correlation is essential. Serum or plasma urea nitroge n measurement (mass/volume)Ordered By: Emma Wilson on 01-08-2024 Urea nitrogen [Mass/Vol] 11 mg/dL 7-18 [facility] Thin prep Papanicolaou smear with manual screeningOrdered By: Emma Wilson on 01-08-2024 Thin prep Papanicolaou smear with manual screening 2.8 g/dL 3.2-5.0 [facility] Thin prep Papanicolaou smear with manual screening 33 U/L 15-37 [facility] Thin prep Papanicolaou smear with manual screening 3 5-15 [facility] PET/CT INITIAL STAGING TUMOR SKULL [id number] 12-31-2023 PET/CT INITIAL STAGING TUMOR SKULL [id number] ORIGINAL EXAMINATION: PET TUMOR IMAGING SKULL-THIGH12/31/2023 1:54 pm TECHNIQUE: Intravenous injection of 12 mCi Fluorine-18 fluorodeoxyglucose (FDG) was administered, followed by acquisition of positron emission tomographic images from the skull base to mid thigh, with concurrent low-dose CT for attenuation correction and anatomic localization utilizing a combined PET/CT scanner. PET images were fused with low-dose CT at the workstation. Dose [id number] time:61 min Serum glucose level: 109 mg/dl [...] prevascular, and right internal mammary stations. A credit resolution representative AP window lymph node measures 13 [...] 12/31/2023 3:19:15 PM Ordering Provider: JESUS Hebert [facility] ([place] CT THORAX SCREENING W/O CONT Kam 12-22-2023 [...] image 39 measuring 8 mm. An additional credit resolution representative left upper lobe nodule on image 57 measures 5 mm. A credit resolution representative right lower lobe nodule on image 70 measures 4 mm. A credit resolution representative irregular right upper lobe nodule on [...] 12/22/2023 11:56:17 AM Ordering Provider: JESUS CALLAHAN [facility] ([place] .GFRon 11-27-2023 GFR 107 ml/min/1.73sqm Normal [facility] ([place] Comment on above: Result Comment: GFR Population [...] #### L IPID, PSA, CMP, GFR #### [address] [address] GFR Non- 88 ml/min/1.73sqm Normal [facility] ([place] Comment on above: Result Comment: GFR Population [...] #### L IPID, PSA, CMP, GFR #### [address] [address] CMPon 11-27-2023 Albumin Level 3.5 G/dL Normal 3.4-4.8 [facility] ([place] Comment on above: Performed By: #### L IPID, PSA, CMP, GFR #### [address] [address] Albumin/Globulin [Mass ratio] 0.9 {ratio} Low 1.1-2.5 [facility] ([place] Comment on above: Performed By: #### L IPID, PSA, CMP, GFR #### [address] [address] ALP [Catalytic activity/Vol] 122 U/L Normal 40-135 [facility] ([place] Comment on above: Performed By: #### L IPID, PSA, CMP, GFR #### [address] [address] ALT [Catalytic activity/Vol] 39 U/L Normal 16-63 [facility] ([place] Comment on above: Performed By: #### L IPID, PSA, CMP, GFR #### [address] [address] AST [Catalytic activity/Vol] 39 U/L Normal 10-40 [facility] ([place] Comment on above: Performed By: #### L IPID, PSA, CMP, GFR #### [address] [address] Bili Total 0.9 mg/dL Normal 0.2-1.0 [facility] ([place] Comment on above: Result Comment: Use of this assay is not recommended for patients undergoing treatment with eltrombopag due to the potential for falsely elevated results. Performed By: #### L IPID, PSA, CMP, GFR #### [address] [address] BUN/Creatinine Ratio 14 ratio Normal 7-27 [facility] ([place] Comment on above: Performed By: #### L IPID, PSA, CMP, GFR #### [address] [address] Calcium [Mass/Vol] 9.5 mg/dL Normal 8.4-10.2 [facility] ([place] Comment on above: Performed By: #### L IPID, PSA, CMP, GFR #### [address] [address] Chloride [Moles/Vol] 100 mmol/L Normal 98-107 [facility] ([place] Comment on above: Performed By: #### L IPID, PSA, CMP, GFR #### [address] [address] CO2 [Moles/Vol] 27 mmol/L Normal 23-31 [facility] ([place] Comment on above: Performed By: #### L IPID, PSA, CMP, GFR #### [address] [address] Creatinine [Mass/Vol] 0.86 mg/dL Normal 0.70-1.30 [facility] ([place] Comment on above: Performed By: #### L IPID, PSA, CMP, GFR #### [address] [address] Electrolyte Balance 10.0 mEq/L Normal 4.0-15.0 [facility] ([place] Comment on above: Performed By: #### L IPID, PSA, CMP, GFR #### [address] [address] Globulin 4.1 G/dL Normal [facility] ([place] Comment on above: Performed By: #### L IPID, PSA, CMP, GFR #### [address] [address] Glucose [Mass/Vol] 98 mg/dL Normal 80-115 [facility] ([place] Comment on above: Performed By: #### L IPID, PSA, CMP, GFR #### [address] [address] Potassium [Moles/Vol] 4.9 mmol/L Normal 3.5-5.1 [facility] ([place] Comment on above: Performed By: #### L IPID, PSA, CMP, GFR #### [address] [address] Sodium [Moles/Vol] 137 mmol/L Normal 136-145 [facility] ([place] Comment on above: Performed By: #### L IPID, PSA, CMP, GFR #### [facility] [address] [place], [place] [address] Total Protein 7.6 G/dL Normal 6.4-8.2 [facility] ([place] Comment on above: Performed By: #### L IPID, PSA, CMP, GFR #### [address] [place] [address] [place], [place] [address] Urea nitrogen [Mass/Vol] 12 mg/dL Normal 7-18 [facility] ([place] Comment on above: Performed By: #### L IPID, PSA, CMP, GFR #### [address] [place] [address] [place], [place] [address] LABORATORYOrdered By: SYSTEM SYSTEM on 11-27-2023 Albumin [...] 11-27-2023 Cholesterol [Mass/Vol] 207 mg/dL High 0-200 [facility] ([place] Comment on above: Result Comment: Chol esterol Reference Interval: Less than 200 Desirable 200-239 Borderline high risk 240 and above High risk Performed By: #### L IPID, PSA, CMP, GFR #### [address] [address] Cholesterol in HDL [Mass/Vol] 86 mg/dL High 40-60 [facility] ([place] Comment on above: Performed By: #### L IPID, PSA, CMP, GFR #### [address] [address] Cholesterol in LDL [Mass/Vol] 111 mg/dL Normal 0-130 [facility] ([place] Comment on above: Performed By: #### L IPID, PSA, CMP, GFR #### [address] [address] Triglyceride [Mass/Vol] 48 mg/dL Normal 0-150 [facility] ([place] Comment on above: Result Comment: Trig lyceride Reference Interval: Less than 150 Normal 150-199 Borderline high risk 200-499 High risk 500 or higher Very high risk Performed By: #### L IPID, PSA, CMP, GFR #### [facility] [address] [place], [place] [address] PSAon 11-27-2023 Prostate Specific Antigen 1.53 ng/mL Normal 0.00-4.00 [facility] ([place]) Comment on above: Performed By: #### L IPID, PSA, CMP, GFR #### [facility] [address] [place], [place] [address] No Panel Informationon 09-24 Culture Urine No growth at 48 hours. [facility] Work Phone: LABORATORYOrdered By: Rachel Marcelo [...] 08:30-0400 Body height 162.56 cm [employer] [employer] Work Phone: [facility] 07-26-2025 08:30-0400 Body mass index (BMI) [Ratio] 18 kg/m2 [employer] Work Phone: [facility] 07-26-2025 08:30-0400 Body temperature 97.6 [degF] [employer] Work Phone: [facility] 07-26-2025 08:30-0400 Body weight 47.62 kg [employer] Work Phone: [facility] 07-26-2025 08:30-0400 Diastolic blood pressure 68 mm[Hg] [employer] Work Phone: [facility] 07-26-2025 08:30-0400 Heart rate 63 /min [employer] Work Phone: [facility] 07-26-2025 08:30-0400 Respiratory rate 16 /min [employer] Work Phone: [facility] 07-26-2025 08:30-0400 SaO2% (BldA) [Mass fraction] 100 % [employer] Work Phone: [facility] 07-26-2025 08:30-0400 Systolic blood pressure 123 mm[Hg] [employer] Work Phone: [facility] 07-19-2025 10:07-0400 Body height 162.56 cm [employer] Work Phone: [facility] 07-19-2025 10:07-0400 Body mass index (BMI) [Ratio] 18.2 kg/m2 [employer] Work Phone: [facility] 07-19-2025 10:07-0400 Body temperature 98.2 [degF] [employer] Work Phone: [facility] 07-19-2025 10:07-0400 Body weight 48.13 kg [employer] Work Phone: [facility] 07-19-2025 10:07-0400 Diastolic blood pressure 71 mm[Hg] [employer] Work Phone: [facility] 07-19-2025 10:07-0400 Heart rate 64 /min [employer] Work Phone: [facility] 07-19-2025 10:07-0400 Respiratory rate 16 /min [employer] Work Phone: [facility] 07-19-2025 10:07-0400 SaO2% (BldA) [Mass fraction] 98 % [employer] Work Phone: [facility] 07-19-2025 10:07-0400 Systolic blood pressure 104 mm[Hg] [employer] Work Phone: [facility] 07-06-2025 13:51-0400 Body temperature 97.3 [degF] [employer] Work Phone: [facility] 07-06-2025 13:51-0400 Diastolic blood pressure 52 mm[Hg] [employer] Work Phone: [facility] 07-06-2025 13:51-0400 Heart rate 92 /min [employer] Work Phone: [facility] 07-06-2025 13:51-0400 Respiratory rate 16 /min [employer] Work Phone: [facility] 07-06-2025 13:51-0400 SaO2% (BldA) [Mass fraction] 95 % [employer] Work Phone: [facility] 07-06-2025 13:51-0400 Systolic blood pressure 125 mm[Hg] [employer] Work Phone: [facility] 07-05-2025 08:40-0400 Body height 162.56 cm [employer] Work Phone: [facility] 07-05-2025 08:40-0400 Body mass index (BMI) [Ratio] 17.9 kg/m2 [employer] Work Phone: [facility] 07-05-2025 08:40-0400 Body temperature 98.3 [degF] [employer] Work Phone: [facility] 07-05-2025 08:40-0400 Body weight 47.4 kg [facility] Work Phone: [facility] 07-05-2025 08:40-0400 Diastolic blood pressure 76 mm[Hg] [employer] Work Phone: [facility] 07-05-2025 08:40-0400 Heart rate 63 /min [employer] Work Phone: [facility] 07-05-2025 08:40-0400 Respiratory rate 18 /min [employer] Work Phone: [facility] 07-05-2025 08:40-0400 SaO2% (BldA) [Mass fraction] 98 % [facility] Work Phone: [facility] 07-05-2025 08:40-0400 Systolic blood pressure 159 mm[Hg] [facility] [employer] Work Phone: [facility] 06-29-2025 09:25-0400 Body height 162.56 cm [facility] Work Phone: [facility] 06-29-2025 09:25-0400 Body mass index (BMI) [Ratio] 18.1 kg/m2 [facility] Work Phone: [facility] 06-29-2025 09:25-0400 Body temperature 98.2 [degF] [facility] [employer] Work Phone: [facility] 06-29-2025 09:25-0400 Body weight 48.08 kg [facility] Work Phone: [facility] 06-29-2025 09:25-0400 Diastolic blood pressure 85 mm[Hg] [facility] [employer] Work Phone: [facility] 06-29-2025 09:25-0400 Heart rate 68 /min [facility] Work Phone: [facility] 06-29-2025 09:25-0400 Respiratory rate 18 /min [facility] Work Phone: [facility] 06-29-2025 09:25-0400 SaO2% (BldA) [Mass fraction] 95 % [facility] Work Phone: [facility] 06-29-2025 09:25-0400 Systolic blood pressure 135 mm[Hg] [facility] Work Phone: [facility] 06-14-2025 13:03-0400 Body temperature 96.3 [degF] [facility] Work Phone: [facility] 06-14-2025 13:03-0400 Diastolic blood pressure 50 mm[Hg] [facility] Work Phone: [facility] 06-14-2025 13:03-0400 Heart rate 62 /min [facility] [employer] Work Phone: [facility] 06-14-2025 13:03-0400 Respiratory rate 16 /min [employer] Work Phone: [facility] 06-14-2025 13:03-0400 SaO2% (BldA) [Mass fraction] 98 % [facility] Work Phone: [facility] 06-14-2025 13:03-0400 Systolic blood pressure 99 mm[Hg] [facility] [employer] Work Phone: [facility] 06-14-2025 08:38-0400 Body height 162.56 cm [facility] Work Phone: [facility] 06-14-2025 08:38-0400 Body mass index (BMI) [Ratio] 18.2 kg/m2 [facility] [employer] Work Phone: [facility] 06-14-2025 08:38-0400 Body temperature 98.2 [degF] [facility] [employer] Work Phone: [facility] 06-14-2025 08:38-0400 Body weight 48.27 kg [facility] [employer] Work Phone: [facility] 06-14-2025 08:38-0400 Diastolic blood pressure 81 mm[Hg] [facility] [employer] Work Phone: [facility] 06-14-2025 08:38-0400 Heart rate 61 /min [facility] Work Phone: [facility] 06-14-2025 08:38-0400 Respiratory rate 18 /min [facility] [employer] Work Phone: [facility] 06-14-2025 08:38-0400 SaO2% (BldA) [Mass fraction] 97 % [facility] Work Phone: [facility] 06-14-2025 08:38-0400 Systolic blood pressure 146 mm[Hg] [facility] Work Phone: [facility] 06-12-2025 11:38-0400 Body mass index (BMI) [Ratio] 17.9 kg/m2 [facility] Work Phone: [facility] 06-12-2025 09:29-0400 Body mass index (BMI) [Ratio] 17.9 kg/m2 [facility] [employer] Work Phone: [facility] 06-12-2025 09:29-0400 Body temperature 98.3 [degF] [facility] Work Phone: [facility] 06-12-2025 09:29-0400 Body weight 47.34 kg [facility] Work Phone: [facility] 06-12-2025 09:29-0400 Diastolic blood pressure 81 mm[Hg] [facility] [employer] Work Phone: [facility] 06-12-2025 09:29-0400 Heart rate 66 /min [facility] [employer] Work Phone: [facility] 06-12-2025 09:29-0400 Respiratory rate 18 /min [facility] Work Phone: [facility] 06-12-2025 09:29-0400 SaO2% (BldA) [Mass fraction] 99 % [facility] [employer] Work Phone: [facility] 06-12-2025 09:29-0400 Systolic blood pressure 158 mm[Hg] [facility] [employer] Work Phone: [facility] 06-05-2025 15:45-0400 Body temperature 97.8 [degF] [facility] [employer] Work Phone: [facility] 06-05-2025 15:45-0400 Diastolic blood pressure 53 mm[Hg] [facility] [employer] Work Phone: [facility] 06-05-2025 15:45-0400 Heart rate 62 /min [facility] [employer] Work Phone: [facility] 06-05-2025 15:45-0400 Respiratory rate 16 /min [facility] Work Phone: [facility] 06-05-2025 15:45-0400 SaO2% (BldA) [Mass fraction] 92 % [facility] [employer] Work Phone: [facility] 06-05-2025 15:45-0400 Systolic blood pressure 114 mm[Hg] JESUS [employer] Work Phone: [facility] 06-05-2025 12:28-0400 Body height 162.56 cm [facility]US [employer] Work Phone: [facility] 06-05-2025 12:28-0400 Body mass index (BMI) [Ratio] 17.7 kg/m2 [facility] [employer] Work Phone: [facility] 06-05-2025 12:28-0400 Body weight 47 kg [facility] [employer] Work Phone: [facility] 05-31-2025 12:58-0400 Body height 162.56 cm [facility] [employer] Work Phone: [facility] 05-31-2025 12:58-0400 Body mass index (BMI) [Ratio] 18.1 kg/m2 [facility] [employer] Work Phone: [facility] 05-31-2025 12:58-0400 Body weight 48.08 kg [facility] [employer] Work Phone: [facility] 05-31-2025 12:58-0400 Diastolic blood pressure 61 mm[Hg] [facility] [employer] Work Phone: [facility] 05-31-2025 12:58-0400 Respiratory rate 16 /min [facility] [employer] Work Phone: [facility] 05-31-2025 12:58-0400 Systolic blood pressure 119 mm[Hg] [facility] [employer] Work Phone: [facility] 05-29-2025 10:38-0400 Body height 162.56 cm [facility] [employer] Work Phone: [facility] 05-29-2025 10:38-0400 Body mass index (BMI) [Ratio] 18.1 kg/m2 [facility] [employer] Work Phone: [facility] 05-29-2025 10:38-0400 Body temperature 98 [degF] [facility] [employer] Work Phone: [facility] 05-29-2025 10:38-0400 Body weight 47.82 kg [facility] [employer] Work Phone: [facility] 05-29-2025 10:38-0400 Diastolic blood pressure 73 mm[Hg] [facility] [employer] Work Phone: [facility] 05-29-2025 10:38-0400 Heart rate 64 /min [facility] [employer] Work Phone: [facility] 05-29-2025 10:38-0400 Respiratory rate 18 /min [facility] [employer] Work Phone: [facility] 05-29-2025 10:38-0400 SaO2% (BldA) [Mass fraction] 99 % [facility] [employer] Work Phone: [facility] 05-29-2025 10:38-0400 Systolic blood pressure 143 mm[Hg] [facility] [employer] Work Phone: [facility] 05-01-2025 09:24-0400 Body height 162.56 cm [facility] [employer] Work Phone: [facility] 05-01-2025 09:24-0400 Body mass index (BMI) [Ratio] 18 kg/m2 [facility] [employer] Work Phone: [facility] 05-01-2025 09:24-0400 Body weight 47.62 kg [facility] [employer] Work Phone: [facility] 05-01-2025 09:17-0400 Body temperature 98.2 [degF] [facility] [employer] Work Phone: [facility] 05-01-2025 09:17-0400 Diastolic blood pressure 83 mm[Hg] [facility] [employer] Work Phone: [facility] 05-01-2025 09:17-0400 Heart rate 69 /min [facility] Work Phone: [facility] 05-01-2025 09:17-0400 Respiratory rate 16 /min [facility] [employer] Work Phone: [facility] 05-01-2025 09:17-0400 SaO2% (BldA) [Mass fraction] 98 % [facility] Work Phone: [facility] 05-01-2025 09:17-0400 Systolic blood pressure 143 mm[Hg] [facility] [employer] Work Phone: [facility] 04-19-2025 07:42-0400 Body height 162.56 cm [facility] [employer] Work Phone: [facility] 04-19-2025 07:42-0400 Body mass index (BMI) [Ratio] 18.8 kg/m2 [facility] Work Phone: [facility] 04-19-2025 07:42-0400 Body temperature 97.4 [degF] [facility] [employer] Work Phone: [facility] 04-19-2025 07:42-0400 Body weight 49.89 kg [facility] [employer] Work Phone: [facility] 04-19-2025 07:42-0400 Diastolic blood pressure 86 mm[Hg] [facility] [employer] Work Phone: [facility] 04-19-2025 07:42-0400 Heart rate 54 /min [facility] [employer] Work Phone: [facility] 04-19-2025 07:42-0400 Respiratory rate 18 /min [facility] [employer] Work Phone: [facility] 04-19-2025 07:42-0400 SaO2% (BldA) [Mass fraction] 98 % [facility] Work Phone: [facility] 04-19-2025 07:42-0400 Systolic blood pressure 142 mm[Hg] [facility] Work Phone: [facility] 04-10-2025 14:47-0400 Body temperature 97.7 [degF] [facility] Work Phone: [facility] 04-10-2025 14:47-0400 Diastolic blood pressure 65 mm[Hg] [facility] [employer] Work Phone: [facility] 04-10-2025 14:47-0400 Heart rate 58 /min [facility] [employer] Work Phone: [facility] 04-10-2025 14:47-0400 Respiratory rate 18 /min EJSUS [employer] Work Phone: [facility] 04-10-2025 14:47-0400 SaO2% (BldA) [Mass fraction] 95 % [facility] [employer] Work Phone: [facility] 04-10-2025 14:47-0400 Systolic blood pressure 126 mm[Hg] [facility] [employer] Work Phone: [facility] 04-08-2025 14:25-0400 Inhaled oxygen flow rate 2 L/min [facility] [employer] Work Phone: [facility] 04-07-2025 14:21-0400 Body height 162.56 cm [facility] [employer] Work Phone: [facility] 04-07-2025 14:21-0400 Body mass index (BMI) [Ratio] 20 kg/m2 [facility] [employer] Work Phone: [facility] 04-07-2025 14:21-0400 Body weight 53.07 kg [facility] [employer] Work Phone: [facility] 04-07-2025 13:51-0400 Body temperature 98.6 [degF] [facility] [employer] Work Phone: [facility] 04-07-2025 13:51-0400 Diastolic blood pressure 64 mm[Hg] [facility] [employer] Work Phone: [facility] 04-07-2025 13:51-0400 Heart rate 55 /min [facility] [employer] Work Phone: 6(297)024-099871 [place] [address] 04-07-2025 13:51-0400 Respiratory rate 18 /min [facility] [employer] Work Phone: [facility] 04-07-2025 13:51-0400 SaO2% (BldA) [Mass fraction] 99 % [facility] [employer] Work Phone: 8(634)580-717871 [place] [address] 04-07-2025 13:51-0400 Systolic blood pressure 135 mm[Hg] [facility] [employer] Work Phone: 2(574)119-698471 [place] [address] 04-07-2025 13:00-0400 Inhaled oxygen flow rate 5 L/min [facility] Work Phone: 4(471)398-551671 [place] [address] 04-07-2025 10:47-0400 Body height 162.56 cm [facility] [employer] Work Phone: 1(450)448-366971 [place] [address] 04-07-2025 10:47-0400 Body mass index (BMI) [Ratio] 19.2 kg/m2 [facility] [employer] Work Phone: [facility] 04-07-2025 10:47-0400 Body weight 50.8 kg [facility] [employer] Work Phone: 4(175)670-684471 [place] [address] 04-07-2025 10:42-0400 Diastolic blood pressure 79 mm[Hg] [facility] [employer] Work Phone: [facility] 04-07-2025 10:42-0400 Heart rate 84 /min [facility] Work Phone: 9(163)388-650271 [place] [address] 04-07-2025 10:42-0400 Inhaled oxygen flow rate 3 L/min [facility] [employer] Work Phone: [facility] 04-07-2025 10:42-0400 Respiratory rate 33 /min [facility] [employer] Work Phone: [facility] 04-07-2025 10:42-0400 SaO2% (BldA) [Mass fraction] 92 % [facility] [employer] Work Phone: [facility] 04-07-2025 10:42-0400 Systolic blood pressure 151 mm[Hg] [facility] [employer] Work Phone: 7(521)202-453771 [place] [address] 04-07-2025 09:35-0400 Body mass index (BMI) [Ratio] 20.5 kg/m2 [facility] [employer] Work Phone: 7(681)763-803271 [place] [address] 04-07-2025 09:35-0400 Body temperature 97.3 [degF] [facility] [employer] Work Phone: 5(764)768-565271 [place] [address] 04-07-2025 09:35-0400 Body weight 54.43 kg [facility] [employer] Work Phone: 1(456)406-405071 [place] [address] 03-14-2025 07:55-0400 Body mass index (BMI) [Ratio] 19.3 kg/m2 [facility] [employer] Work Phone: 6(554)326-889471 [place] [address] 03-14-2025 07:55-0400 Body temperature 97.4 [degF] [facility] [employer] Work Phone: [facility] 03-14-2025 07:55-0400 Body weight 51.25 kg [facility] Work Phone: 9(790)279-123171 [place] [address] 03-14-2025 07:55-0400 Diastolic blood pressure 79 mm[Hg] [facility] [employer] Work Phone: [facility] 03-14-2025 07:55-0400 Heart rate 85 /min [facility] [employer] Work Phone: [facility] 03-14-2025 07:55-0400 Respiratory rate 18 /min [facility] [employer] Work Phone: [facility] 03-14-2025 07:55-0400 SaO2% (BldA) [Mass fraction] 96 % [facility] Work Phone: [facility] 03-14-2025 07:55-0400 Systolic blood pressure 168 mm[Hg] [facility] [employer] Work Phone: [facility] 03-02-2025 12:46-0400 Body weight 54.43 kg J[facility] [employer] Work Phone: [facility] 03-02-2025 12:46-0400 Heart rate 77 /min [facility] Work Phone: 4(613)182-548071 [place] [address] 03-02-2025 12:46-0400 SaO2% (BldA) [Mass fraction] 97 % [facility] [employer] Work Phone: [facility] 01-31-2025 07:50-0400 Body mass index (BMI) [Ratio] 18.8 kg/m2 [facility] [employer] Work Phone: [facility] 01-31-2025 07:50-0400 Body temperature 97.5 [degF] [facility] [employer] Work Phone: [facility] 01-31-2025 07:50-0400 Body weight 49.89 kg [facility] [employer] Work Phone: [facility] 01-31-2025 07:50-0400 Heart rate 88 /min [facility] [employer] Work Phone: [facility] 01-31-2025 07:50-0400 Respiratory rate 18 /min [facility] [employer] Work Phone: [facility] 01-31-2025 07:50-0400 SaO2% (BldA) [Mass fraction] 99 % [facility] [employer] Work Phone: [facility] 12-26-2024 13:14-0500 Body temperature 98.6 [degF] [facility] [employer] Work Phone: [facility] 12-26-2024 13:14-0500 Body weight 53.07 kg [facility] Work Phone: [facility] 12-26-2024 13:14-0500 Diastolic blood pressure 65 mm[Hg] [facility] [employer] Work Phone: 0(337)839-345071 [place] [address] 12-26-2024 13:14-0500 Heart rate 87 /min [facility] [employer] Work Phone: 2(328)093-479171 [place] [address] 12-26-2024 13:14-0500 Respiratory rate 16 /min [facility] [employer] Work Phone: [facility] 12-26-2024 13:14-0500 SaO2% (BldA) [Mass fraction] 98 % [facility] [employer] Work Phone: [facility] 12-26-2024 13:14-0500 Systolic blood pressure 115 mm[Hg] [facility] [employer] Work Phone: [facility] 11-11-2024 13:16-0500 Body temperature 97.8 [degF] [facility] [employer] Work Phone: [facility] 11-11-2024 13:16-0500 Body weight 53.07 kg [facility] [employer] Work Phone: [facility] 11-11-2024 13:16-0500 Diastolic blood pressure 67 mm[Hg] [facility] [employer] Work Phone: [facility] 11-11-2024 13:16-0500 Heart rate 60 /min [facility] Work Phone: [facility] 11-11-2024 13:16-0500 Respiratory rate 16 /min [facility] [employer] Work Phone: [facility] 11-11-2024 13:16-0500 SaO2% (BldA) [Mass fraction] 98 % [facility] Work Phone: [facility] 11-11-2024 13:16-0500 Systolic blood pressure 117 mm[Hg] [facility] [employer] Work Phone: [facility] 11-08-2024 11:22-0500 Body height 162.56 cm [facility] [employer] Work Phone: [facility] 11-08-2024 11:22-0500 Body weight 50.3 kg [facility] Work Phone: [facility] 11-08-2024 09:48-0500 Diastolic blood pressure 52 mm[Hg] [facility] Work Phone: [facility] 11-08-2024 09:48-0500 Heart rate 80 /min [facility] [employer] Work Phone: [facility] 11-08-2024 09:48-0500 Systolic blood pressure 104 mm[Hg] [facility] Work Phone: [facility] 11-08-2024 08:21-0500 SaO2% (BldA) [Mass fraction] 96 % [facility] [employer] Work Phone: [facility] 11-08-2024 08:17-0500 Body temperature 97.5 [degF] [facility] [employer] Work Phone: [facility] 11-08-2024 08:17-0500 Respiratory rate 18 /min [facility] [employer] Work Phone: [facility] 11-08-2024 05:29-0500 Body mass index (BMI) [Ratio] 19 kg/m2 [facility] [employer] Work Phone: [facility] 01-15-2024 12:27-0500 Body height 162.56 cm No Primary Care Physician [facility] 01-15-2024 12:27-0500 Body weight 53.97 kg No Primary Care Physician [facility] 01-15-2024 12:27-0500 Heart rate 96 /min No Primary Care Physician [facility] 01-15-2024 12:27-0500 SaO2% (BldA) [Mass fraction] 97 % No Primary Care Physician [facility] 01-09-2024 13:32-0500 Body temperature 98.2 [degF] No Primary Care Physician [facility] 01-09-2024 13:32-0500 Diastolic blood pressure 43 mm[Hg] No Primary Care Physician [facility] 01-09-2024 13:32-0500 Heart rate 69 /min No Primary Care Physician [facility] 01-09-2024 13:32-0500 Respiratory rate 16 /min No Primary Care Physician [facility] 01-09-2024 13:32-0500 SaO2% (BldA) [Mass fraction] 93 % No Primary Care Physician [facility] 01-09-2024 13:32-0500 Systolic blood pressure 93 mm[Hg] No Primary Care Physician [facility] 01-09-2024 08:59-0500 Inhaled oxygen flow rate 2 L/min No Primary Care Physician [facility] 01-08-2024 13:36-0500 Body height 162.56 cm No Primary Care Physician [facility] 01-08-2024 13:36-0500 Body mass index (BMI) [Ratio] 19.2 kg/m2 No Primary Care Physician [facility] 01-08-2024 13:36-0500 Body weight 50.8 kg No Primary Care Physician [facility] 01-08-2024 12:15-0500 Body temperature 97.3 [degF] No Primary Care Physician [facility] 01-08-2024 12:15-0500 Diastolic blood pressure 62 mm[Hg] No Primary Care Physician [facility] 01-08-2024 12:15-0500 Heart rate 56 /min No Primary Care Physician [facility] 01-08-2024 12:15-0500 Respiratory rate 20 /min No Primary Care Physician [facility] 01-08-2024 12:15-0500 SaO2% (BldA) [Mass fraction] 90 % No Primary Care Physician [facility] 01-08-2024 12:15-0500 Systolic blood pressure 115 mm[Hg] No Primary Care Physician [facility] 01-08-2024 10:17-0500 Body height 162.56 cm No Primary Care Physician [facility] 01-08-2024 10:17-0500 Body mass index (BMI) [Ratio] 20.4 kg/m2 No Primary Care Physician [facility] 01-08-2024 10:17-0500 Body weight 54 kg No Primary Care Physician [facility] 01-08-2024 09:57-0500 Diastolic blood pressure 77 mm[Hg] No Primary Care Physician [facility] 01-08-2024 09:57-0500 Heart rate 81 /min No Primary Care Physician [facility] 01-08-2024 09:57-0500 Respiratory rate 21 /min No Primary Care Physician [facility] 01-08-2024 09:57-0500 Systolic blood pressure 115 mm[Hg] No Primary Care Physician [facility] 01-08-2024 08:42-0500 Body mass index (BMI) [Ratio] 20 kg/m2 No Primary Care Physician [facility] 01-08-2024 08:42-0500 Body temperature 98.2 [degF] No Primary Care Physician [facility] 01-08-2024 08:42-0500 Body weight 53.07 kg No Primary Care Physician [facility] 01-08-2024 08:42-0500 SaO2% (BldA) [Mass fraction] 98 % No Primary Care Physician [facility] 12-29-2023 07:46-0500 Body mass index (BMI) [Ratio] 18.6 kg/m2 No Primary Care Physician [facility] 12-29-2023 07:46-0500 Body temperature 97.2 [degF] No Primary Care Physician [facility] 12-29-2023 07:46-0500 Body weight 50.8 kg No Primary Care Physician [facility] 12-29-2023 07:46-0500 Diastolic blood pressure 67 mm[Hg] No Primary Care Physician [facility] 12-29-2023 07:46-0500 Heart rate 66 /min No Primary Care Physician [facility] 12-29-2023 07:46-0500 Respiratory rate 20 /min No Primary Care Physician [facility] 12-29-2023 07:46-0500 SaO2% (BldA) [Mass fraction] 98 % No Primary Care Physician [facility] 12-29-2023 07:46-0500 Systolic blood pressure 124 mm[Hg] No Primary Care Physician [facility] Encounters Encounter Date Encounter Type Care Provider Facility Start: 08-11-2025 ambulatory [facility] Facility:[facility] Start: 07-27-2025 ambulatory [facility] Facility:[facility] Start: 07-26-2025 End: 07-26-[address] Ayden Bosch MD -[facility] Work Phone: Start: 07-26-2025 End: 07-26-2025 ambulatory [facility] [employer] [employer] Work Phone: [facility] Start: 07-26-[address] Ayden Bosch MD -[facility] Start: 07-19-[address] Ayden Bosch MD -[facility] Start: 07-19-2025 End: 07-19-2025 Patient encounter procedure Camille Jenae [employer] [employer] -[facility] Work Phone: Start: 07-19-2025 End: 07-19-2025 ambulatory JESUS LONDON [employer] Work Phone: [facility] Start: 07-05-2025 End: 07-05-2025 Patient encounter procedure Camille Jenae [employer] [employer] -[facility] Work Phone: Start: 07-05-2025 End: 07-05-2025 ambulatory JESUS LONDON [employer] Work Phone: -[facility] Start: 07-05-[address] Ayden Bosch MD -[facility] Start: 06-29-2025 End: 06-29-2025 Patient encounter procedure Camille Jenae [employer] -[facility] Work Phone: Start: 06-29-2025 End: 06-29-2025 ambulatory JESUS LONDON [employer] Work Phone: -[facility] Start: 06-29-[address] Ayden Bosch MD -[facility] Start: 06-22-2025 ambulatory JESUS LONDON Facilit y:[facility] Start: 06-14-[address] Ayden Bosch MD -[facility] Start: 06-14-2025 End: 06-14-[address] Ayden Bosch MD -[facility] Work Phone: Start: 06-14-2025 End: 06-14-2025 ambulatory JESUS LONDON [employer] Work Phone: -[facility] Start: 06-12-2025 End: 06-12-2025 Patient encounter procedure Camille SimonJenae [employer] -[facility] Work Phone: Start: 06-12-2025 End: 06-12-2025 ambulatory JESUS LONDON [employer] Work Phone: -[facility] Start: 06-05-2025 ambulatory Ray Sanders Facility :[facility] Start: 06-05-2025 Non-patient / Non-visit Dr. Ray Sanders MD -[facility] Start: 06-05-2025 End: 06-05-2025 Admission to same day surgery center Dr. Ray Sanders MD [facility] Start: 06-05-2025 End: 06-05-2025 ambulatory JESUS LONDON [employer] Work Phone: [facility] Start: 05-31-2025 End: 05-31-[address] Ray Sanders MD -[facility] Work Phone: Start: 05-31-2025 End: 05-31-2025 ambulatory JESUS LONDON [employer] Work Phone: -[facility] Start: 05-29-2025 End: 05-29-[address] Ayden Bosch MD -[facility] Work Phone: Start: 05-29-2025 End: 05-29-2025 ambulatory JESUS LONDON [employer] Work Phone: -[facility] Start: 05-01-[address] Ayden Bosch MD -[facility] Start: 05-01-2025 End: 05-01-[address] Ayden Bosch MD -[facility] Work Phone: Start: 05-01-2025 End: 05-01-2025 ambulatory JESUS LONDON [employer] Work Phone: [facility] Work Phone: Start: 04-25-2025 End: 04-25-2025 ambulatory JESUS LONDON [employer] Work Phone: [facility] Work Phone: Start: 04-25-2025 End: 04-25-2025 Patient encounter procedure Raegan Ledezam NP-C -[facility] Start: 04-25-2025 End: 04-25-2025 ambulatory JESUS LONDON Facility:[facility] Start: 04-19-2025 End: 04-19-2025 Patient encounter procedure Raegan Ledezma [employer] [employer] -[facility] Work Phone: Start: 04-19-2025 End: 04-19-2025 ambulatory JESUS LONDON [employer] Work Phone: [facility] Work Phone: Start: 04-17-2025 ambulatory JESUS CINTHIA R [employer] Facility:[facility] Start: 04-10-2025 Non-patient / Non-visit Padma richardson PA-C -[facility] Start: 04-10-2025 Non-patient / Non-visit Dr. Malcolm Rivas [facility] Work Phone: Start: 04-09-2025 Non-patient / Non-visit Dr. Chuy Covarrubias MD -[facility] Work Phone: Start: 04-09-2025 Non-patient / Non-visit Dr. Ray Sanders MD -[facility] Start: 04-08-2025 Non-patient / Non-visit Dr. Chuy Covarrubias MD -[facility] Work Phone: Start: 04-08-2025 Non-patient / Non-visit Dr. Ray Sanders MD -[facility] Start: 04-07-2025 Non-patient / Non-visit Dr. Ray Sanders MD -[facility] Start: 04-07-2025 ambulatory Michelle Do Facility :[facility] Start: 04-07-2025 End: 04-10-2025 Evaluation and management of inpatient Dr. Malcolm Hanson DO -[facility] Work Phone: Start: 04-07-2025 End: 04-07-2025 Emergency department patient visit JESUS CALLAHAN [employer] Work Phone: -Emergency Department Work Phone: Start: 04-07-2025 End: 04-07-2025 ambulatory JESUS CALLAHAN [employer] Work Phone: [facility] Work Phone: Start: 04-07-2025 End: 04-07-2025 Patient encounter procedure Raegan Ledezma NP-C -Cat [facility] Work Phone: Start: 04-07-2025 End: 04-07-2025 ambulatory Raegan Ledezma NP Facility:[facility] Start: 03-21-2025 ambulatory Malcolm Torres Facility:[facility] Start: 03-14-2025 End: 03-14-2025 Patient encounter procedure Raegan Ledezma NP-C -[facility] Work Phone: Start: 03-14-2025 End: 03-14-2025 ambulatory Raegan Ledezma [employer] Facility:[facility] Start: 03-03-2025 ambulatory Raegan Ledezma [employer] Fac ility:[facility] Start: 03-03-2025 Non-patient / Non-visit Dr. Pierre sandoval DO -[facility] Start: 03-03-2025 ambulatory Lenny Golden Facility :[facility] Start: 03-02-2025 End: 03-02-2025 Patient encounter procedure Raegan Ledezma [employer]-C -Cat Scan [facility] Work Phone: Start: 03-02-2025 End: 03-02-2025 ambulatory Raegan Ledezma [employer] Facility:[facility] Start: 02-27-2025 End: 02-27-2025 ambulatory JESUS BENAVIDEZLER [employer]C Work Phone: [facility] Work Phone: Start: 02-27-2025 End: 02-27-2025 Patient encounter procedure Raegan Ledezma [employer]-C -Pulmonary Services/Neurology Work Phone: Start: 02-27-2025 End: 02-27-2025 ambulatory Raegan Ledezma NP Facility:[facility] Start: 01-31-2025 End: 01-31-2025 Patient encounter procedure Raegan Ledezma [employer]-C -[facility] Work Phone: Start: 01-31-2025 End: 01-31-2025 ambulatory Raegan Ledezma NP Facility:[facility] Start: 01-04-2025 ambulatory Lenny Franks Facility :[facility] Start: 12-26-2024 End: 12-26-[address] Malcolm Torres MD -[facility] Work Phone: Start: 12-26-2024 End: 12-26-2024 ambulatory Malcolm Torres Facility:[facility] Start: 12-08-2024 ambulatory Malcolm Torres Facility:[facility] Start: 12-08-2024 Non-patient / Non-visit Dr. Malcolm conde MD -[facility] Start: 12-08-2024 End: 12-08-2024 Patient encounter procedure Marjorie REYNOSO -Cardiovascular Services Work Phone: Start: 12-08-2024 End: 12-08-2024 ambulatory Marjorie Garcia Facility:[facility] Start: 12-01-2024 End: 12-01-2024 Patient encounter procedure Marjorie REYNOSO -Cat Scan, H Work Phone: Start: 12-01-2024 End: 12-01-2024 ambulatory Marjorie Garcia Facility:[facility] Start: 11-11-2024 End: 11-11-2024 Patient encounter procedure Marjorie REYNOSO -[facility] Work Phone: Start: 11-11-2024 End: 11-11-2024 ambulatory Marjorie Garcia Facility:[facility] Start: 11-08-2024 Non-patient / Non-visit Dr. Cleo Ulloa MD -[facility] Work Phone: Start: 11-07-2024 ambulatory JESUS LONDON Facilit y:[facility] Start: 11-07-2024 Non-patient / Non-visit Dr. Doc STONE -[facility] Start: 11-07-2024 ambulatory JESUS LONDON Facilit y:[facility] Start: 11-07-2024 Non-patient / Non-visit Dr. Malcolm conde MD -[facility] Start: 11-07-2024 Non-patient / Non-visit Dr. Pierre sandoval DO -[facility] Start: 11-07-2024 ambulatory Goldy Smith ty:[facility] Start: 11-07-2024 End: 11-08-2024 Evaluation and management of inpatient Dr. Janak Ulloa MD -Intensive Care Unit Work Phone: Start: 09-07-2024 End: 09-08-2024 Emergency department patient visit Ministerio Mckeon Facility:[facility] Start: 06-16-2024 End: 06-20-2024 ambulatory JESUS CALLAHAN NAIL PROFESSIONAL-MASTER MACHINIST Facility:[facility] Start: 06-16-2024 End: 06-20-2024 Outreach Lab JESUS CALLAHAN NAIL PROFESSIONAL-MASTER MACHINIST [facility] Start: 01-18-2024 Non-patient / Non-visit No [facility] Physician [facility] Start: 01-15-2024 End: 01-15-2024 ambulatory No Primary Care Physician [facility] Work Phone: Start: 01-15-2024 End: 01-15-2024 Patient encounter procedure No Primary Care Physician [facility]-Pulmonary Services/Neurology Work Phone: Start: 01-09-2024 Non-patient / Non-visit No Brooke lafleur [facility] Physician [facility] Work Phone: Start: 01-09-2024 Non-patient / Non-visit No Brooke lafleur [facility] Physician [facility] Start: 01-08-2024 Non-patient / Non-visit No Brooke lafleur [facility] Physician [facility] Start: 01-08-2024 End: 01-09-2024 Evaluation and management of inpatient No Primary Care Physician [facility]-Medical Surgical 3 Work Phone: Start: 01-08-2024 End: 01-09-2024 observation encounter No Primary Care Physician [facility] Work Phone: Start: 01-08-2024 Non-patient / Non-visit No Brooke lafleur [facility] Physician [facility] Work Phone: Start: 01-08-2024 End: 01-08-2024 ambulatory No Primary Care Physician [facility] Work Phone: Start: 01-08-2024 End: 01-08-2024 Patient encounter procedure No Primary Care Physician [facility]-Cat Scan, [facility] Work Phone: Start: 01-06-2024 End: 01-06-2024 ambulatory No Primary Care Physician [facility] Work Phone: Start: 01-06-2024 End: 01-06-2024 Patient encounter procedure No Primary Care Physician [facility]-Pulmonary Services/Neurology Work Phone: Start: 12-31-2023 End: 12-31-2023 ambulatory JESUSANA BENAVIDEZLER NAIL PROFESSIONAL-MASTER MACHINIST Facility:A Start: 12-29-2023 End: 12-29-2023 Patient encounter procedure No Primary Care Physician [facility]-Pulmonary Medicine [facility] Work Phone: Start: 12-16-2023 End: 12-16-2023 ambulatory JESUS LONDON NAIL PROFESSIONAL-MASTER MACHINIST Facility:[facility] Start: 12-16-2023 End: 12-16-2023 Patient encounter procedure JESUS LONDON NAIL PROFESSIONAL-MASTER MACHINIST [facility] Start: 11-27-2023 End: 11-27-2023 ambulatory JESUS LONDON NAIL PROFESSIONAL-MASTER MACHINIST Facility:[facility] Start: 11-27-2023 End: 11-27-2023 Patient encounter procedure JESUS LONDON NAIL PROFESSIONAL-MASTER MACHINIST [facility] Start: 09-23-2021 End: 09-27-2021 Outreach Lab WENDY CHRISTINA NAIL PROFESSIONAL - MASTER MACHINIST [facility] Start: 08-16-2021 End: 08-20-2021 Outreach Lab WENDY CHRISTINA NAIL PROFESSIONAL - MASTER MACHINIST [facility] Procedures Date Procedure Procedure Detail Performing Clinician Start: 07-26-2025 Estimated creatinine clearance JESUS LONDON [employer] Work Phone: Start: 07-26-2025 Serum inorganic phos phate measurement JESUS LONDON [employer] Work Phone: Start: 07-19-2025 Estimated creatinine clearance JESUS LONDON [employer] Work Phone: Start: 07-05-2025 Estimated creatinine clearance JESUS LONDON [employer] Work Phone: Start: 07-05-2025 Lymphocyte percent differential count JESUS LONDON [employer] Work Phone: Start: 07-05-2025 Serum inorganic phos phate measurement JESUS LONDON [employer] Work Phone: Start: 06-29-2025 Estimated creatinine clearance JESUS LONDON [employer] Work Phone: Start: 06-14-2025 Estimated creatinine clearance JESUS LONDON [employer] Work Phone: Start: 06-14-2025 Serum inorganic phos phate measurement JESUS LONDON [employer] Work Phone: Start: 06-05-2025 Plain chest X-ray JESUS LONDON [employer] Work Phone: Start: 06-05-2025 Implantation to cardiovascular system JESUS LONDON [employer] Work Phone: Start: 06-05-2025 Fluoroscopic guidance J ARED LONDON [employer] Work Phone: Start: 04-25-2025 Positron emission tomography with computed tomography JESUS LONDON [employer] Work Phone: Start: 04-10-2025 X-ray of chest, PA a nd lateral views JESUS LONDON [employer] Work Phone: Start: 04-10-2025 X-ray of chest, PA a nd lateral views JESUS LONDON [employer] Work Phone: Start: 04-09-2025 X-ray of chest, PA a nd lateral views JESUS LONDON [employer] Work Phone: Start: 04-08-2025 X-ray of chest, PA a nd lateral views JESUS LONDON [employer] Work Phone: Start: 04-08-2025 Estimated creatinine clearance JESUS LONDON [employer] Work Phone: Start: 04-07-2025 Plain chest X-ray JESUS LONDON [employer] Work Phone: Start: 04-07-2025 Estimated creatinine clearance JESUS LONDON [employer] Work Phone: Start: 04-07-2025 Plain chest X-ray JESUS LONDON [employer] Work Phone: Start: 04-07-2025 Biopsy/Inj or Needle Placement JESUS LONDON [employer] Work Phone: Start: 03-02-2025 CT of thorax with contrast JESUS LONDON [employer] Work Phone: Start: 12-01-2024 CT angiography of he ad and neck JESUS LONDON [employer] Work Phone: Start: 11-07-2024 CT of chest without contrast JESUS LONDON [employer] Work Phone: Start: 11-06-2024 CT of head without contrast JSEUS LONDON [employer] Work Phone: Start: 11-06-2024 SARS-CoV-2, Influenz a & RSV (PCR) JESUS LONDON [employer] Work Phone: Start: 01-15-2024 Plain chest X-ray [...] Care Physician Start: 11-09-2019 Colonoscopy JESUSANA PENAGORDO NAIL PROFESSIONAL-MASTER MACHINIST Start: 11-09-1984 Vasectomy JESUS CARMEN ETLER NAIL PROFESSIONAL-MASTER MACHINIST Plan of Treatment Date Care Activity Detail Author Start: 07-26-2025 [facility] Start: 07-19-2025 [facility] Start: 07-05-2025 [facility] Start: 06-29-2025 [facility] Start: 06-14-2025 [facility] Start: 06-14-2025 Venous catheter care management [facility] Start: 06-05-2025 Patient discharge [facility] Start: 06-05-2025 Anesthesia access central venous circulation ANESTH VASCULAR ACCESS [facility] Start: 06-05-2025 Insj tunneled ctr vad w/subq port age 5 yr/> INSERT TUNNELED CV CATH [facility] Start: 04-19-2025 Patient referral [facility] Work Phone: Start: 04-19-2025 Positron emission tomography with computed tomography [facility] Start: 04-10-2025 Patient discharge [facility] Start: 04-08-2025 Oxygen therapy [facility] Start: 04-08-2025 Drainage tube care management [facility] Start: 04-07-2025 Assessment of risk of venous thromboembolism [facility] Start: 04-07-2025 Insertion of catheter into peripheral vein [facility] Start: 04-07-2025 Providing care according to standard [facility] Start: 04-07-2025 Provision of activity privileges [facility] Start: 04-07-2025 Referral for physical therapy [facility] Start: 04-07-2025 Referral to general surgeon [facility] Start: 04-07-2025 Referral to occupational therapist [facility] Start: 04-07-2025 Referral to service [facility] Start: 04-07-2025 [facility] Start: 04-07-2025 Following clinical pathway protocol [facility] Start: 04-07-2025 CORE NDL BX LNG/MED PERQ CORE NDL BX LNG/MED PERQ [facility] Start: 04-07-2025 Admission procedure [facility] Start: 04-07-2025 Hospital admission, emergency, from emergency room, medical nature [facility] Start: 04-07-2025 [facility] Start: 04-07-2025 Following clinical pathway protocol [facility] Start: 04-07-2025 Catheterization of vein [facility] Start: 04-07-2025 Oxygen therapy [facility] Start: 04-07-2025 Patient discharge [facility] Start: 04-07-2025 Vital signs measurements [facility] Start: 03-02-2025 Walking distance 6 minutes [facility] Start: 11-11-2024 Patient referral [facility] Work Phone: Start: 11-08-2024 Patient discharge [facility] Start: 11-07-2024 Care planning and problem solving actions [facility] Start: 11-07-2024 Following clinical pathway protocol [facility] Start: 11-07-2024 Assessment of risk of venous thromboembolism [facility] Start: 11-07-2024 Bedrest [facility] Start: 11-07-2024 Continuous pulse oximetry [facility] Start: 11-07-2024 Elevation of head of bed [facility] Start: 11-07-2024 Incentive spirometry [facility] Start: 11-07-2024 Insertion of catheter into peripheral vein [facility] Start: 11-07-2024 Measuring intake and output [facility] Start: 11-07-2024 Oxygen therapy [facility] Start: 11-07-2024 Providing care according to standard [facility] Start: 11-07-2024 Referral to occupational therapist [facility] Start: 11-07-2024 Referral to service [facility] Start: 11-07-2024 Seizure precautions [facility] Start: 11-07-2024 Tobacco use cessation education [facility] Start: 11-07-2024 Vital signs measurements [facility] Start: 11-07-2024 [facility] Start: 11-07-2024 Admission procedure [facility] Start: 11-07-2024 Patient referral to dietitian [facility] Start: 01-09-2024 Patient discharge [facility] Start: 01-09-2024 Plain chest X-ray Chest 1 View (Portable) [facility] Start: 01-09-2024 XR Chest Single view [facility] Start: 01-08-2024 [facility] Start: 01-08-2024 CORE NDL BX LNG/MED PERQ CORE NDL BX LNG/MED PERQ [facility] Start: 01-08-2024 Tube thoracostomy includes water seal INSERTION OF CHEST TUBE [facility] Start: 01-08-2024 Following clinical pathway protocol [facility] Start: 01-08-2024 Ambulation without limitation [facility] Start: 01-08-2024 Assessment of risk of venous thromboembolism [facility] Start: 01-08-2024 Catheterization of vein [facility] Start: 01-08-2024 Chart related administrative procedure [facility] Start: 01-08-2024 Incentive spirometry [facility] Start: 01-08-2024 Inhalation therapy procedure [facility] Start: 01-08-2024 Insertion of catheter into peripheral vein [facility] Start: 01-08-2024 Oxygen therapy [facility] Start: 01-08-2024 Providing care according to standard [facility] Start: 01-08-2024 Referral to general surgeon [facility] Start: 01-08-2024 Referral to service [facility] Start: 01-08-2024 [facility] Start: 01-08-2024 Verification routine [facility] Start: 01-08-2024 Admission procedure [facility] Start: 01-08-2024 Following clinical pathway protocol [facility] Start: 01-08-2024 Catheterization of vein [facility] Start: 01-08-2024 Oxygen therapy [facility] Start: 01-08-2024 Patient discharge [facility] Start: 01-08-2024 Vital signs measurements [facility] Cholesterol [Mass/vo lume] in Serum or Plasma [facility] Cholesterol in HDL [Mass/volume] in Serum or Plasma [facility] Cholesterol in LDL [Mass/volume] in Serum or Plasma [facility] CT Chest and Abdomen W contrast IV [facility] CT Chest W contrast IV [facility] CT Chest W contrast IV [facility] Exercise tolerance test [facility] Patient Education RAD RN Dischar ge Instructions Needle Biopsy: Lung RAD RN Procedural Sedation [facility] Work Phone: Patient referral [facility] Work Phone: Triglycerides measurement [facility] VLDL cholesterol measurement [facility] XR Chest PA and Lateral [facility] Immunizations Immunization Date Immunization Notes Care Provider Ivonne grullon 05-16-2016 pneumococcal polysaccharide vaccine, 23 valent WENDY CHRISTINA NAIL PROFESSIONAL - MASTER MACHINIST [facility] 05-16-2016 tetanus toxoid, redu angela diphtheria toxoid, and acellular pertussis vaccine, adsorbed WENDY CHRISTINA NAIL PROFESSIONAL - MASTER MACHINIST [facility] Payers Date Payer Category Payer Unknown [id number] 2024 Self-pay 2023 Medicare [id number] 1955 Unknown [id number] 2.16.8 40.1.989960.3.579.2.627 1955 Unknown [id number] .16.8 40.1.078659.3.579.2.62 1955 Unknown [id number] .16.8 40.1.748944.3.579.2.627 1955 Unknown [id number] .16.8 40.1.385888.3.579.2.627 1955 Unknown [id number] .16. 840.1.369372.3.579.2.627 Unknown [id number] Unknown [id number] 2.16.8 40.1.415477.3.579.2.462 Unknown [id number] 2.16.8 40.1.123642.3.579.2.462 Unknown [id number] 2.16.8 40.1.477955.3.579.2.462 Unknown [id number] 2.16.8 40.1.216545.3.579.2.462 Unknown [id number] 2.16.8 40.1.364723.3.579.2.462 Unknown [id number] 2.16.8 40.1.076124.3.579.2.462 Unknown [id number] 2.16.8 40.1.330925.3.579.2.462 Unknown [id number] 2.16.8 40.1.255691.3.579.2.462 Unknown [id number] 2.16.8 40.1.651196.3.579.2.462 Unknown [id number] 2.16.8 40.1.868887.3.579.2.462 Unknown [id number] 2.16.8 40.1.954103.3.579.2.462 Unknown [id number] 2.16.8 40.1.531080.3.579.2.462 Unknown [id number] 2.16.8 40.1.218057.3.579.2.462 Unknown [id number] 2.16.8 40.1.092247.3.579.2.462 Unknown [id number] 2.16.8 40.1.057118.3.579.2.462 Unknown [id number] 2.16.8 40.1.077091.3.579.2.462 Unknown [id number] 2.16.8 40.1.871709.3.579.2.462 Unknown [id number] 2.16.8 40.1.147796.3.579.2.462 Unknown [id number] 2.16.8 40.1.394518.3.579.2.462 Unknown [id number] 2.16.8 40.1.971253.3.579.2.462 Unknown [id number] 2.16.8 40.1.031664.3.579.2.462 Unknown [id number] 2.16.8 40.1.072623.3.579.2.462 Unknown [id number] 2.16.8 40.1.108661.3.579.2.462 Unknown [id number] 2.16.8 40.1.469308.3.579.2.462 Unknown [id number] 2.16.8 40.1.388826.3.579.2.462 Unknown [id number] 2.16.8 40.1.414987.3.579.2.462 Unknown [id number] 2.16.8 40.1.849402.3.579.2.462 Unknown [id number] 2.16.8 40.1.056661.3.579.2.462 Unknown [id number] 2.16.8 40.1.799441.3.579.2.462 Unknown [id number] 2.16.8 40.1.657286.3.579.2.462 Unknown [id number] 2.16.8 40.1.632284.3.579.2.462 Unknown [id number] 2.16.8 40.1.459591.3.579.2.462 Unknown [id number] 2.16.8 40.1.584101.3.579.2.462 Unknown [id number] 2.16.8 40.1.313021.3.579.2.462 Unknown [id number] 2.16.8 40.1.149966.3.579.2.462 Unknown [id number] 2.16.8 40.1.593021.3.579.2.462 Unknown [id number] 2.16.8 40.1.893553.3.579.2.462 Unknown [id number] 2.16.8 40.1.475797.3.579.2.462 Unknown [id number] 2.16.8 40.1.892098.3.579.2.462 Unknown [id number] 2.16.8 40.1.951710.3.579.2.462 Unknown [id number] 2.16.8 40.1.237984.3.579.2.462 Unknown [id number] 2.16.8 40.1.728091.3.579.2.462 Unknown [id number] 2.16.8 40.1.915233.3.579.2.462 Unknown [id number] 2.16.8 40.1.541684.3.579.2.462 Unknown [id number] 2.16.8 40.1.786465.3.579.2.462 Unknown [id number] 2.16.8 40.1.201474.3.579.2.462 Unknown [id number] 2.16.8 40.1.640021.3.579.2.462 Social History Date Type Detail Facility Start: 03-07-2021 End: 12-26-2024 Heavy tobacco smoker (finding) [facility] Sex Assigned At [facility] Start: 01-08-2024 End: 01-08-2024 Tobacco smoking status NHIS Unknown if ever smoked [facility] Start: 1955 Sex Assigned At Male [facility] Start: 03-02-2025 Sex Male (finding) [facility] Start: 04-07-2025 End: 06-02-2025 Tobacco smoking status NHIS Smokes tobacco daily (finding) [facility] Sex Male [facility] Medical Equipment Procedure Code Equipment Code Equipment Origin al Text Equipment Identifier Dates Insertion, vascular access port ([id number]) Vascular port/catheter ([id number] [facility] Start: 06-05-2025 Goals Date Patient Goal Desired Activity /State Functional Status Date Assessment Result Facility 04-10-2025 Functional status Ambulates;Up ad lloyd;Gypsy ir [facility] Work Phone: 04-07-2025 Functional status Ambulates [facility] Work Phone: 11-08-2024 Functional status Chair [facility] Work Phone: 01-09-2024 Functional status Up ad lloyd [facility] Work Phone: 01-08-2024 Functional status Patient Activity Ambula collin [facility] Work Phone: Mental Status Date Assessment Result Facility 06-12-2025 Cognitive function Voice/Name [facility] Work Phone: 06-05-2025 Cognitive function Voice/Name [facility] Work Phone: 04-10-2025 Cognitive function Demonstrates ability to follow instructions/comprehend [facility] Work Phone: 04-10-2025 Cognitive function Voice/Name [facility] Work Phone: 04-07-2025 Cognitive function Follows Commands;Restl ess [facility] Work Phone: 11-07-2024 Cognitive function Voice/Name [facility] Work Phone: 01-09-2024 Cognitive function Voice/Name [facility] Work Phone: 01-08-2024 Cognitive function Awake;Alert;A ppropriate;Foll ows Commands [facility] Work Phone: Clinical Notes 01-08-2024 to 06-14-2025 Note Date & Type Note Facility 06-14-2025 Progress note [facility] 06-14-2025 Progress note Note Date/Time June 14, 2025 9:16am [facility] [address] [address] OFFICE VISIT Date of Service: 06/14/25 0836 MR#: [id number] Acct: [id number] Name: MCKENNAPATRICK Archibald Jr. Rep #: [id number] : 1955 From: Ayden Bosch MD Age/Sex: 70/M [place] [facility] [place]: Signed HPI Subjective Date of Service [...] follow up to start therapy. Feels well. [facility] Medical History Encounter for education Wears glasses [...] Date (if applicable) CC: FRIEDA CALLAHAN ~ [employer] Work Phone: 1(136) 998-473107-28-2025 Consult note [facility] Medical Records Department [address] [place] [address] Anesthesia Postop Eval II 06/05/25 1625 MR#: [id number] Acct: [id number] Name: MCKENNAPATRICK Jr. Rep #:[id number] : 1955 70 From: Gavin Hill MD PCP: FRIEDA KEARNEY Status:REG [facility] Y Race: C Location: [place] [address] Anesthesia Postop Eval I Sum Postop Eval Completion status Anesthesia document: Postop Eval 1 completed: Yes Anesthesia Postop Eval I Summary Anesthesia Postop Eval I Summary: Anesthesia Postop Eval I: Assessment Summary Airway patent Yes 06/05/25 14:58 RETURN TO [email or web address].JDEF Spontaneous unlabored Yes 06/05/25 14:58 RETURN TO VENDOR.JDEF respirations Mental status Awake,Calm 06/05/25 14:58 RETURN TO VENDOR.JDEF nausea No 06/05/25 14:58 RETURN TO VENDOR.JDEF Vomiting No 06/05/25 14:58 RETURN TO VENDOR.JDEF Anesthesia Postop Eval I: Fluid Summary Crystalloid volume administer 500 06/05/25 14:58 RETURN TO VENDOR.JDEF (ml) Colloids volume administered ( ml) Blood Product volume administered (ml) Total IV fluid infused 500 06/05/25 14:58 RETURN TO [email or web address].JDEF Anesthesia Postop Eval I: Summary Notes Anesthesia Complication No 06/05/25 14:58 RETURN TO [email or web address].JDEF Anesthesia Complication Comment: Post-operative progress note Anesthesia: Postop Eval II Evaluation Mental status: Awake Pain Level: 0 nausea: No Vomiting: No 06/05/25 1625 > Date _ Gavin Dangeloignjosef Signature: Date CC: ~ Signed [facility]07-28-2025 History and physical note Author Ray Sanders [facility] Note Date/Time June 05, 2025 1:40 pm [facility] Medical Records Department [address] [place] [address] History & Physical Exam 06/05/25 1338 MR#: [id number] Acct: [id number] Name: PATRICK ANDRES JrQuan Rep #:[id number] : 1955 70 From: Ray Sanders MD PCP: FRIEDA KEARNEY Status:[facility] Location: [place] [address] HPI - General General Date of Service: 06/05/25 Chief Complaint: Mediport placement HPI Narrative PATRICK ANDRES, is a 70 M who presents for elective Mediport placement for chemotherapy as treatment for lung cancer [facility] Medical History Wears glasses Wears dentures Cancer [...] Dr. Ray Sanders MD~ Signed [facility] Work Phone: 1(672) 541-507407-28-2025 Radiology Diagnostic study note [facility] Imaging Services [address] [place] [address] CXR for Line Placement MR#: [id number] Acct: [id number] Name: PATRICK ANDRES Jr. Rep #: [id number] : 1955 M 70 From: Alirio Kaplan MD PCP: FRIEDA KEARNEY Status: REG [facility] Study:CXR for Line Placement Date of Exam: 06/05/25 Exam# [id number] Ordering Dr: St esther Sanders MD PROCEDURE: [...] interval osseous change is seen. Reading Location: [place] [address] CC: FRIEDA CALLAHAN; Dr. Ray Sanders MD ~ Estimating Engineer: Signed [facility]07-28-2025 Procedure note [facility] Medical Records Department [address] [place] [address] Operative Report 06/05/25 1502 MR#: [id number] Acct: [id number] Name: PATRICK ANDRES Jr. 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 Ray Sanders MD~ Signed [facility]07-28-2025 Discharge summary [facility] Medical Records Department [address] [place] [address] Instructions for Home/Discharge Instructions 06/05/25 1457 MR#: [id number] Acct: [id number] Name: MCKENNASOUMYA Jr. Rep #:[id number] 24 : 1955 70 From: Ray Sanders MD PCP: FRIEDA KEARNEY Status:REG [facility] Discharge Instructions Diet Discharge Diet: Light diet [...] Care Provider: JESUS CALLAHAN Instructions Print Language: Romanian Discharge Orders/Prescriptions Prescriptions: New oxycodone 5 mg [...] Self Care 06/05/25 1502Stecasper Sanders MD CC: WEIGHER AND CRUSHER-C JESUS CALLAHAN ~ Signed [facility]07-28-2025 Consult note [facility] Medical Records Department [address] [place] [address] Anesthesia Postop Eval I 06/05/25 1457 MR#: [id number] Acct: [id number] Name: PATRICK ANDRES Jr. Rep #:[id number] 22 : 1955 70 From: Adelaida Hou CRNA PCP: FRIEDA KEARNEY Status:REG SDC Y Race: C Location: [place] [address] Anesthesia: Postop Eval I Current Vital Signs [...] Eval 1 completed: Yes 06/05/[address] RETURN TO VENDOR> Date _ Adelaida DeForeest RETURN TO VENDOR Cosigner Signature: Date CC: ~ Signed [facility]07-28-2025 Consult note Author Gavin Hill [facility] Note Date/Time June 05, 2025 12:3 8pm [facility] Medical Records Department [address] [place] [address] Pre-Anesthesia Evaluation 06/05/25 1237 MR#: [id number] Acct: [id number] Name: PATRICK ANDRES Jr. Rep #:[id number] : 1955 70 From: Gavin Hill MD PCP: FRIEDA KEARNEY Status:REG SD Y Race: C Location: [place] [address] ASA Classification* ASA Classification ASA Classification: 3 [...] PORT LEFT Anesthesia History Anesthesia History - melter helper: Anesthesia History - melter helper Hx Hospitalization No 06/02/25 09:58 Any Problems [...] take am of surgery PONV PONV - melter helper: PONV - melter helper Female No 06/02/25 09:58 HX of Motion [...] 06/05/25 12:28 Respiratory Assessment Respiratory Assessment - melter helper: Respiratory Tract Infection Hx - melter helper Hx Respiratory Tract Infection No 06/02/25 09:58 STOP Sleep Apnea STOP Sleep Apnea - melter helper: STOP Sleep Apnea - melter helper Hx Hypertension Yes: NO MED FOR 5-6 [...] Tobacco Use History Tobacco Use History - melter helper: Tobacco Use History - melter helper Tobacco Use Smoking Status Current every day smoker 06/02/25 09:58 Hx Tobacco Use Yes 06/02/25 09:58 Years Smoking Packs Smoked per Day Smoking Cessation Date was within the last 15 years Hx Smoking Cessation Date Hx Smoking Cessation No 06/02/25 09:58 Counseling Hematologic Medial History Hematologic Hx - melter helper: Hematologic Medical Hx - clammer Hx of Blood Transfusion No 06/02/25 09:58 [...] 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 - melter helper: /Reproductive Hx- melter helper Hx Now No 06/02/25 09:58 Gestational Age [...] no additional complaints, except as documented. 06/05/25 5942 <Electronically signed by Gavin Hill MD > Date _ Gavin Hill MD Cosigner Signature: Date CC: ~ Signed [facility] Work Phone: 1(521) 500-177707-28-2025 History and physical note [facility] Medical Records Department [address] [place] [address] History & Physical Exam 06/05/25 1338 MR#: [id number] Acct: [id number] Name: PATRICK ANDRES Jr. Rep #:[id number] 22 : 1955 70 From: Ray Sanders MD PCP: FRIEDA KEARNEY Status:[facility] Location: [place] [address] HPI - General General Date of Service: 06/05/25 Chief Complaint: Mediport placement HPI Narrative PATRICK ANDRES, is a 70 M who presents for elective Mediport placement for chemotherapy as treatment for lung cancer [facility] Medical History Wears glasses Wears dentures Cancer [...] 06/05/25 1340 Cosigner Signature (if applicable): CC: WEIGHER AND CRUSHER-C JESUS CALLAHAN; Dr. Ray Sanders MD~ Signed [facility]28[facility] Consult note [facility] Medical Records Department [address] [place] [address] Pre-Anesthesia Evaluation 06/05/25 1237 MR#: [id number] Acct: [id number] Name: PATRICK ANDRES Jr. Rep #:[id number] : 1955 70 From: Gavin Hill MD PCP: FRIEDA KEARNEY Status:REG SDC Y Race: C Location: [place] [address] ASA Classification* ASA Classification ASA Classification: 3 [...] PORT LEFT Anesthesia History Anesthesia History - melter helper: Anesthesia History - melter helper Hx Hospitalization No 06/02/25 09:58 Any Problems [...] take am of surgery PONV PONV - melter helper: PONV - melter helper Female No 06/02/25 09:58 HX of Motion [...] 06/05/25 12:28 Respiratory Assessment Respiratory Assessment - melter helper: Respiratory Tract Infection Hx - melter helper Hx Respiratory Tract Infection No 06/02/25 09:58 STOP Sleep Apnea STOP Sleep Apnea - melter helper: STOP Sleep Apnea - melter helper Hx Hypertension Yes: NO MED FOR 5-6 [...] Tobacco Use History Tobacco Use History - melter helper: Tobacco Use History - melter helper Tobacco Use Smoking Status Current every day smoker 06/02/25 09:58 Hx Tobacco Use Yes 06/02/25 09:58 Years Smoking Packs Smoked per Day Smoking Cessation Date was within the last 15 years Hx Smoking Cessation Date Hx Smoking Cessation No 06/02/25 09:58 Counseling Hematologic Medial History Hematologic Hx - melter helper: Hematologic Medical Hx - clammer Hx of Blood Transfusion No 06/02/25 09:58 [...] 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 - melter helper: /Reproductive Hx- melter helper Hx Now No 06/02/25 09:58 Gestational Age [...] Signature: Date CC: ~ Signed [facility]07-23-2025 Progress [facility] [address] [place] [address] OFFICE VISIT Date of Service: 05/31/25 MR#: [id number] Acct: [id number] Name: MCKENNASOUMYA Jr. Rep #: [id number] : 1955 Provider: Dr. Jesse Sanders MD Age/Sex: 70/M Location: [facility] Status: Signed Intake Vital Signs 05/29/25 10:38 [...] Reasons: PORT PLACEMENT Chief Complaint: port placement Briquette Operator Required: No Is patient in pain?: [...] FRIEDA CALLAHAN; Dr. Ayden Bosch MD ~ [facility]07-23-2025 Progress note Author Ray Sanders [facility] Note Date/Time May 31, 2025 12:5 8pm [facility] [address] [place], [place] [address] OFFICE VISIT Date of Service: 05/31/25 MR#: [id number] Acct: [id number] Name: PATRICK ANDRES JrQuan Rep #: [id number] : 1955 Provider: Dr. Jesse Sanders MD Age/Sex: 70/M Location: [facility] Status: Signed Intake Vital Signs 05/29/25 10:38 [...] Reasons: PORT PLACEMENT Chief Complaint: port placement Briquette Operator Required: No Is patient in pain?: [...] fallen in the past year?: No 05/31/25 2004 <Electronically signed by Ray guzman MD> Date _ Ray Dangeloigner Signature: Date (if applicable) CC: WEIGHER AND CRUSHER-Jonathan CALLAHAN; Dr. Ayden Bosch MD ~ [facility] Work Phone: 1(366) 561-982106-02-2025 Consult note [facility] Medical Records Department [address] [place] [address] Counseling Note - Pharmacy 04/10/25 1444 MR#: [id number] Acct: [id number] Name: PATRICK ANDRES Jr. Rep #:[id number] 22 : 1955 70 From: Fiorella Barraza PCP: JESUS CALLAHAN WEIGHER AND CRUSHERTrina Status:ADM I N Y Location: [place] [address] Pharmacy [place] Med Reconciliation Pharmacy Service has performed discharge [...] applicable): Date CC: ~ Signed [facility]06-02-2025 Discharge summary [facility] Medical Records Department [address] [place] [address] Discharge Summary 04/10/25 1422 MR#: [id number] Acct: [id number] Name: PATRICK ANDRES Rep #:[id number] : 1955 70 From: Malcolm Hanson DO PCP: JESUS CALLAHAN Status:ADM I N Location: [place] [address] Providers Date of Admission: 04/07/25 Primary Care [...] the costophrenic angles, probably adhesions. [facility] Chest X-Ray 04/10/25 12:35 IMPRESSION: 1. Is tissue and patchy airspace disease. Status post removal of left-sided chest tube. No pneumothorax. 2. Suggestion of COPD. Reading [facility] Instructions Discharge Diet: No restrictions DC [...] Referrals / Follow Up: [facility] [place] [Provider Group] - 04/14/25 9:45 am JESUS CLALAHAN NP-C [Primary Care Provider] - 04/17/25 Disposition Disposition (needs filled in before D/C Order can be placed): Home, Self Care Charges/Coding Visit Charges Inpatient E&M: 65016 Disch Hosp 04/10/25 4922 Cosigner Signature (if applicable): CC: Dr. Malcolm Hanson DO; JESUS CALLAHAN~ Signed [facility]06-02-2025 [facility]06-02-2025 Radiology Diagnostic study note [facility] Imaging Services [address] [place], [place] [address] Chest PA and Lateral MR#: [id number] Acct: [id number] Name: PATRICK ANDRES JrQuan Rep #: [id number] : 1955 M 70 From: Paris Londono MD PCP: JESUS CALLAHAN Status: ADM I N Study:Chest PA and Lateral Date of Exam: 04/10/25 Exam# [id number] Ordering Dr: Padma Guerrero PA-C EXAM: XR [...] pneumothorax. 2. Suggestion of COPD. [facility] CC: PABLO Guerrero; JESUS CALLAHAN ~ Estimating Engineer: Signed [facility]06-02-2025 Progress note Author Malcolm Hanson [facility] Note Date/Time April 10, 2025 10:41 am [facility] Medical Records Department [address] [place] [address] Progress Note - Hospitalist 04/10/25 0811 MR#: [id number] Acct: [id number] Name: PATRICK ANDRES Rep #:[id number] : 1955 70 From: Malcolm Hanson DO PCP: JESUS CALLAHAN Status:ADM I N Location: [place] [address] Reason for Visit Reason for Visit: Diagnoses [...] the costophrenic angles, probably adhesions. Reading [facility] Physical Exam Const alert and no apparent [...] prophylaxis: LMWH. Charges/Coding Visit Charges Inpatient E&M: 24130 Subs Hosp L2 04/10/25 1041 <Electronically signed by Malcolm Hanson DO> Cosigner Signature (if applicable): CC: ~ Signed [facility] Work Phone: 1(844) 902-441306-02-2025 Progress note Author Padma Guerrero [facility] Note Date/Time April 10, 2025 10:30 am [facility] Medical Records Department [address] [place] [address] Progress Note - Surgery 04/10/25 1006 MR#: [id number] Acct: [id number] Name: MCKENNAPATRICK Archibald Jr. Rep #:[id number] : 1955 70 From: Padma REYNOSO PA-C PCP: JESUS CALLAHAN Status:ADM I N Location: [place] [address] Subjective Subjective Patient evaluated resting comfortably in [...] the costophrenic angles, probably adhesions. Reading Location: [place] [address] Physical Exam Resp normal respiratory effort and [...] this patient Charges/Coding Visit Charges Inpatient E&M: 05784 Subs Hosp L2 04/10/25 1012 <Electronically signed [...] (if applicable): cc: ~* Signed [facility] Work Phone: 1(503) 886-438606-02-2025 Progress note [facility] Medical Records Department [address] [place] [address] Progress Note - Hospitalist 04/10/25 0811 MR#: [id number] Acct: [id number] Name: PATRICK ANDRES Jr. Rep #:[id number] : 1955 70 From: Malcolm Hanson DO PCP: JESUS CALLAHAN WEIGHER AND CRUSHER-Jonathan Status:ADM I N Location: [place] [address] Reason for Visit Reason for Visit: Diagnoses [...] the costophrenic angles, probably adhesions. Reading Location: [place] [address] Physical Exam Const alert and no apparent [...] prophylaxis: LMWH. Charges/Coding Visit Charges Inpatient E&M: 13118 Subs Hosp L2 04/10/25 1041 Cosigner Signature (if applicable): CC: ~ Signed [facility]06-02-2025 Progress note [facility] Medical Records Department [address] [place] [address] Progress Note - Surgery 04/10/25 1006 MR#: [id number] Acct: [id number] Name: MCKENNAPATRICK Jr. Rep #:[id number] : 1955 70 From: Padma REYNOSO PATrina PCP: JESUS CALLAHAN Status:ADM I N Location: [place] [address] Subjective Subjective Patient evaluated resting comfortably in [...] the costophrenic angles, probably adhesions. Reading Location: [place] [address] Physical Exam Resp normal respiratory effort and [...] this patient Charges/Coding Visit Charges Inpatient E&M: 77757 Subs Hosp L2 04/10/25 1012 Cosigner Signature [...] (if applicable): cc: ~* Signed [facility]06-02-2025 Radiology Diagnostic study note [facility] Imaging Services [address] [place], [place] [address] Chest PA and Lateral MR#: [id number] Acct: [id number] Name: PATRICK ANDRES Jr. Rep #: [id number] : 1955 M 70 From: Rock Copeland MD PCP: JESUS CALLAHAN WEIGHER AND CRUSHER-C Status: ADM I N Study:Chest PA and Lateral Date of Exam: 04/10/25 Exam# [id number] Ordering Dr: St esther Sanders MD PROCEDURE: [...] the costophrenic angles, probably adhesions. Reading Location: [place] [address] CC: Dr. Ray Sanders MD; JESUS CALLAHAN ~ Estimating Engineer: Signed [facility]06-01-2025 Progress note Author Chuy Covarrubias [facility] Note Date/Time April 09, 2025 4:16p [facility] Medical Records Department [address] [place] [address] Progress Note - Hospitalist 04/09/25 1610 MR#: [id number] Acct: [id number] Name: PATRICK ANDRES Rep #:[id number] : 1955 70 From: Chuy Galan PCP: JESUS CALLAHAN Status:ADM I N Location: [facility] ZY600-0 Reason for Visit Reason for Visit: Diagnoses [...] emphysema and hyperinflation again noted. Reading Location: [facility] Physical Exam Narrative No acute symptoms. Repeat [...] the left pneumothorax had resolved. Admit to [facility]. * Keep chest tube with oxygen for [...] emphysema and hyperinflation again noted. Reading Location: [facility] #Hypoxia due to iatrogenic pneumothorax: Management as [...] elects to be full code. * Total jifx-ks-mumd time 16 minutes. Charges/Coding Visit Charges Inpatient E&M: 17169 Subs Hosp L2 04/09/25 1616 <Electronically signed by Chuy Covarrubias MD> Cosigner Signature (if applicable): CC: ~ Signed [facility] Work Phone: 1(174) 260-871206-01-2025 Progress note Author Ray Sanders [facility] Note Date/Time April 09, 2025 2:23p m [facility] Medical Records Department [address] [place] [address] Progress Note - Surgery 04/09/25 1421 MR#: [id number] Acct: [id number] Name: PATRICK ANDRES Jr. Rep #:[id number] : 1955 70 From: Ray Sanders MD PCP: JESUS CALLAHAN WEIGHER AND CRUSHER-C Status:ADM I N Location: [facility] IQ175-9 Subjective Subjective Patient seen and evaluated on [...] emphysema and hyperinflation again noted. Reading Location: [facility] Physical Exam Narrative He is alert and [...] this plan. Charges/Coding Visit Charges Inpatient E&M: 95555 Subs Hosp L2 04/09/25 1423 <Electronically signed by Ray Sanders MD> Cosigner Signature (if applicable): CC: ~ Signed [facility] Work Phone: 1(381) 389-721006-01-2025 Progress note [facility] Medical Records Department [address] [place] [address] Progress Note - Hospitalist 04/09/25 1610 MR#: [id number] Acct: [id number] Name: MCKENNASOUMYA Jr. Rep #:[id number] : 1955 70 From: Chuy Galan PCP: JESUS CALLAHAN Status:ADM I N Location: [place] [address] Reason for Visit Reason for Visit: Diagnoses [...] emphysema and hyperinflation again noted. Reading Location: [facility] Physical Exam Narrative No acute symptoms. Repeat [...] the left pneumothorax had resolved. Admit to [facility]. * Keep chest tube with oxygen for [...] emphysema and hyperinflation again noted. Reading Location: [id number] #Hypoxia due to iatrogenic pneumothorax: Management as [...] elects to be full code. * Total qnkn-hd-efjb time 16 minutes. Charges/Coding Visit Charges Inpatient E&M: 55139 Subs Hosp L2 04/09/25 1616 Cosigner Signature (if applicable): CC: ~ Signed [facility]06-01-2025 Progress note [facility] Medical Records Department [address] [place] [address] Progress Note - Surgery 04/09/25 1421 MR#: [id number] Acct: [id number] Name: MCKENNAPATRICK Jr. Rep #:[id number] : 1955 70 From: Ray Sanders MD PCP: JESUS CALLAHAN WEIGHER AND CRUSHER-C Status:ADM I N Location: [place] [address] Subjective Subjective Patient seen and evaluated on [...] emphysema and hyperinflation again noted. Reading Location: [id number] Physical Exam Narrative He is alert and [...] this plan. Charges/Coding Visit Charges Inpatient E&M: 08967 Subs Hosp L2 04/09/25 1423 Cosigner Signature (if applicable): CC: ~ Signed [facility]06-01-2025 Radiology Diagnostic study note [facility] Imaging Services [address] [place] [address] Chest PA and Lateral MR#: [id number] Acct: [id number] Name: PATRICK ANDRES Jr. Rep #: [id number] : 1955 M 70 From: Robb Cuevas MD PCP: JESUS CALLAHAN Status: ADM I N Study:Chest PA and Lateral Date of Exam: 04/09/25 Exam# [id number] Ordering Dr: St esther Sanders MD PROCEDURE: [...] emphysema and hyperinflation again noted. Reading Location: [facility] CC: Dr. Ray Sanders MD; JESUS CALLAHAN ~ Estimating Engineer: Signed [facility]05-31-2025 Progress note Author Chuy Covarrubias [facility] Note Date/Time April 08, 2025 5:13p m [facility] Medical Records Department [address] [place] [address] Progress Note - Hospitalist 04/08/25 0751 MR#: [id number] Acct: [id number] Name: PATRICK ANDRES Jr. Rep #:[id number] : 1955 70 From: Chuy Galan PCP: JESUS CALLAHAN Status:ADM I N Location: [place] [address] Reason for Visit Reason for Visit: Diagnoses [...] % (Auto) 66.2, Lymph % (Auto) 20.0, [place] % (Auto) 12.0 H, Eos % (Auto) [...] % (Auto) 51.6, Lymph % (Auto) 30.2, [place] % (Auto) 14.3 H, Eos % (Auto) [...] The left pneumothorax has resolved. Reading Location: [facility] Chest X-Ray 04/08/25 06:25 IMPRESSION: Left apical small caliber chest tube again seen not significantly changed. No pneumothorax definitely identified. Reading Location: [facility] Physical Exam Narrative Admitted with iatrogenic left [...] the left pneumothorax had resolved. Admit to [facility]. * Keep chest tube with oxygen for [...] elects to be full code. * Total fdwh-vo-gryv time 16 minutes. Charges/Coding Visit Charges Inpatient E&M: 10178 Subs Hosp L2 04/08/25 1719 <Electronically signed by Chuy Covarrubias MD> Cosigner Signature (if applicable): CC: ~ Signed [facility] Work Phone: 1(118) 341-745105-31-2025 Progress note [facility] Medical Records Department [address] [place] [address] Progress Note - Hospitalist 04/08/25 0751 MR#: [id number] Acct: [id number] Name: MCKENNASOUMYA Jr. Rep #:[id number] : 1955 70 From: Chuy Galan PCP: JESUS CALLAHAN WEIGHER AND CRUSHER-C Status:ADM I N Location: [place] [address] Reason for Visit Reason for Visit: Diagnoses [...] % (Auto) 66.2, Lymph % (Auto) 20.0, [place] % (Auto) 12.0 H, Eos % (Auto) [...] % (Auto) 51.6, Lymph % (Auto) 30.2, [place] % (Auto) 14.3 H, Eos % (Auto) [...] The left pneumothorax has resolved. Reading Location: [facility] Chest X-Ray 04/08/25 06:25 IMPRESSION: Left apical small caliber chest tube again seen not significantly changed. No pneumothorax definitely identified. Reading Location: [facility] Physical Exam Narrative Admitted with iatrogenic left [...] [facility] * Keep chest tube with oxygen [...] elects to be full code. * Total fnbq-wf-gmqf time 16 minutes. Charges/Coding Visit Charges Inpatient E&M: 17035 Subs Hosp L2 04/08/25 1713 Cosigner Signature (if applicable): CC: ~ Signed [facility]05-31-2025 Progress note Author Ray Sanders [facility] Note Date/Time April 08, 2025 5:54a m [facility] Medical Records Department [address] [place] [address] Progress Note - Surgery 04/08/25 0552 MR#: [id number] Acct: [id number] Name: PATRICK ANDRES Mago Bueno Rep #:[id number] : 1955 70 From: Ray Sanders MD PCP: JESUS CALLAHAN Status:ADM I N Location: [place] [address] Subjective Subjective Patient seen and evaluated on [...] % (Auto) 66.2, Lymph % (Auto) 20.0, [place] % (Auto) 12.0 H, Eos % (Auto) [...] The left pneumothorax has resolved. [facility] Physical Exam Narrative He is alert and [...] x-ray results Charges/Coding Visit Charges Inpatient E&M: 52041 Subs Hosp L3 04/08/25 0554 <Electronically signed by Ray Sanders MD> Cosigner Signature (if applicable): CC: ~ Signed [facility] Work Phone: 1(168) 321-676905-31-2025 Radiology Diagnostic study note [facility] Imaging Services [address] [place], [place] [address] Chest PA and Lateral MR#: [id number] Acct: [id number] Name: PATRICK ANDRES Rep #: [id number] : 1955 M 70 From: Robb Cuevas MD PCP: JESUS CALLAHAN Status: ADM I N Study:Chest PA and Lateral Date of Exam: 04/08/25 Exam# [id number] Ordering Dr: St esther Sanders MD PROCEDURE: [...] changed. No pneumothorax definitely identified. Reading Location: [id number] CC: Dr. Ray Sanders MD; JESUSANA CALLAHAN ~ Estimating Engineer: Signed [facility]05-31-2025 Progress note [facility] Medical Records Department [address] [place] [address] Progress Note - Surgery 04/08/25 0552 MR#: [id number] Acct: [id number] Name: PATRICK ANDRES Jr. Rep #:[id number] : 1955 70 From: Ray Sanders MD PCP: JESUS CALLAHAN Status:ADM I N Location: [place] [address] Subjective Subjective Patient seen and evaluated on [...] % (Auto) 66.2, Lymph % (Auto) 20.0, [place] % (Auto) 12.0 H, Eos % (Auto) [...] The left pneumothorax has resolved. Reading Location: [facility]1 Physical Exam Narrative He is alert [...] x-ray results Charges/Coding Visit Charges Inpatient E&M: 98257 Subs Hosp L3 04/08/25 0554 Cosigner Signature (if applicable): CC: ~ Signed [facility]05-30-2025 History and physical note Author Michelle Do [facility] Note Date/Time April 07, 2025 5:52p m [facility] Medical Records Department [address] [place] [address] H&P Exam - Hospitalist 04/07/25 1258 MR#: [id number] Acct: [id number] Name: MCKENNASOUMYA Jr. Rep #:[id number] : 1955 70 From: Michelle Do MD PCP: JESUS CALLAHAN WEIGHER AND CRUSHERMadhavC Status:ADM I N Location: [facility] KZ607-2 HPI - General General Date of Admission: [...] in the ED were BP of 137/69, DE of 65, RR of 28 and oxygen [...] managed for iatrogenic pneumothorax after lung biopsy. [facility] Medical History BPH without urinary obstruction COPD [...] % (Auto) 66.2, Lymph % (Auto) 20.0, [place] % (Auto) 12.0 H, Eos % (Auto) [...] The left pneumothorax has resolved. Reading Location: [place] [address] Assessment & Plan Assessment/Plan (1) Iatrogenic pneumothorax: [...] elects to be full code. * Total kzeo-lb-cvpp time 16 minutes. Charges/Coding Visit Charges Inpatient E&M: 76293 Init Hosp L3 Procedures Hospitalists Procedures: 95183 Advncd Care Plan 30 Min 04/07/25 1752 <Electronically signed by Michelle Do MD> Cosigner Signature (if applicable): CC: Dr. Michelle Do MD; JESUS WEIGHER AND CRUSHER-C [place]~ Signed [facility] Work Phone: 1(602) 802-421805-30-2025 Consult note Author Ray Sanders [facility] Note Date/Time April 07, 2025 4:48p m [facility] Medical Records Department [address] [place] [address] Consultation - Surgical 04/07/25 1643 MR#: [id number] Acct: [id number] Name: PATRICK ANDRES Jr. Rep #:[id number] : 1955 70 From: Ray Sanders MD PCP: JESUS CALLAHAN Status:ADM I N Location: [facility] MQ203-9 Assessment & Plan Assessment/Plan (1) Iatrogenic pneumothorax: [...] day and sometimes 2 packs/day at times. [facility] Medical History BPH without urinary obstruction COPD [...] % (Auto) 66.2, Lymph % (Auto) 20.0, [place] % (Auto) 12.0 H, Eos % (Auto) [...] The left pneumothorax has resolved. Reading Location: [place] [address] Charges/Coding Visit Charges Inpatient E&M: 32324 Init Hosp L3 04/07/25 1640 <Electronically signed by Ray Sanders MD> Cosigner Signature (if applicable): CC: JESUS CALLAHAN~ Signed [facility] Work Phone: 1(387) 549-526005-30-2025 History and physical note [facility] Medical Records Department [address] [place] [address] H&P Exam - Hospitalist 04/07/25 1258 MR#: [id number] Acct: [id number] Name: PATRICK ANDRES JrQuan Rep #:[id number] : 1955 70 From: Michelle Do MD PCP: JESUS CALLAHAN Status:ADM I N Location: [facility] UI727-1 HPI - General General Date of Admission: [...] in the ED were BP of 137/69, DE of 65, RR of 28 and oxygen [...] managed for iatrogenic pneumothorax after lung biopsy. [facility] Medical History BPH without urinary obstruction COPD [...] % (Auto) 66.2, Lymph % (Auto) 20.0, [place] % (Auto) 12.0 H, Eos % (Auto) [...] The left pneumothorax has resolved. Reading Location: [facility] Assessment & Plan Assessment/Plan (1) Iatrogenic pneumothorax: (2) Hypoxemia: PLAN: Plan #Left iatrogenic pneumothorax after lung biopsy * Patient came in today to have scheduled left lung nodule biopsy. This procedure was complicated by left pneumothorax * Had a small caliber chest tube inserted in the ED. * Follow-up chest x-ray showed that the left pneumothorax had resolved[facility] * Keep chest tube with oxygen [...] elects to be full code. * Total ywgi-wc-pwle time 16 minutes. Charges/Coding Visit Charges Inpatient E&M: 34614 Init Hosp L3 Procedures Hospitalists Procedures: 01265 Advncd Care Plan 30 Min 04/07/25 1752 Cosigner Signature (if applicable): CC: Dr. Michelle Do MD; JESUS CALLAHAN~ Signed [facility]05-30-2025 Consult note [facility] Medical Records Department [address] [place] [address] Consultation - Surgical 04/07/25 1643 MR#: [id number] Acct: [id number] Name: PATRICK ANDRES Rep #:[id number] : 1955 70 From: Ray Sanders MD PCP: JESUS CALLAHAN Status:ADM I N Location: [facility] JL462-3 Assessment & Plan Assessment/Plan (1) Iatrogenic pneumothorax: [...] day and sometimes 2 packs/day at times. [facility] Medical History BPH without urinary obstruction COPD [...] % (Auto) 66.2, Lymph % (Auto) 20.0, [place] % (Auto) 12.0 H, Eos % (Auto) [...] The left pneumothorax has resolved. Reading Location: [facility]-1 Charges/Coding Visit Charges Inpatient E&M: 22422 Init Hosp L3 04/07/25 1648 Cosigner Signature (if applicable): CC: JESUS [employer]HER AND CRUSHER-C [place]~ Signed [facility]05-30-2025 Evaluation note* Diagnosis Onset Date Resolution Status [...] induced neutropenia acute July 19, 2025 8:50am [facility] Work Phone: [phone] Evaluation note* Diagnosis Onset Date Resolution Status [...] Immunotherapy encounter acute S eptember 2024 7:49am [facility] Work Phone: 1([phone]) 337-342205-30-2025 Discharge summary Author Stefan Shultz [facility] Note Date/Time April 07, 2025 1:03p [facility] Medical Records Department [address] [place] [address] Emergency Department Summary 04/07/25 MR#: [id number] Acct: [id number] Name: PATRICK ANDRES Jr. Rep #:[id number] : 1955 70 From: Stefan Shultz MD PCP: JESUS CALLAHAN WEIGHER AND CRUSHER-C Status:REG E R Location: ED HPI History [...] he is having a hard time breathing. [facility] Medical History BPH without urinary obstruction COPD [...] % (Auto) 66.2 Lymph % (Auto) 20.0 [place] % (Auto) 12.0 H Eos % (Auto) [...] The left pneumothorax has resolved. Reading Location: [facility] Management Discussion w/another healthcare provider: Hospitalist and Active Directory Specialist (surgery Marilyn - khadra to follow; pulm [...] disease), Hypoxemia Disposition Disposition: Acute Care Hospital [facility] What to do if you have Problems For any increased pain, shortness of breath, bleeding, nausea or vomiting, chestpain, or any unexpected problems, contact your Primary Care Provider. Call [facility] ([phone]) or report to the closest Emergency Room. Call 911 if necessary. 04/07/25 1303 <Electronically signed by Stefan Shultz MD> Cosigner Signature (if applicable): CC: JESUS MAALVE [place] ~ Signed [facility] Work Phone: [phone]) 963-190705-30-2025 Discharge summary Author Stefan Shultz [facility] Note Date/Time April 07, 2025 1:03p [facility] Medical Records Department [address] [place] [address] Emergency Department Summary 04/07/25 MR#: [id number] Acct: [id number] Name: PATRICK ANDRES Jr. Rep #:[id number] : 1955 70 From: Stefan Shultz MD PCP: JESUS CALLAHAN WEIGHER AND CRUSHER-C Status:REG E R Location: ED HPI History [...] he is having a hard time breathing. [facility] Medical History BPH without urinary obstruction COPD [...] % (Auto) 66.2 Lymph % (Auto) 20.0 [place] % (Auto) 12.0 H Eos % (Auto) [...] The left pneumothorax has resolved. Reading Location: [place] [address] Management Discussion w/another healthcare provider: Hospitalist and Active Directory Specialist (surgery Wanek - ok to follow; pulm [...] disease), Hypoxemia Disposition Disposition: Acute Care Hospital [facility] What to do if you have Problems For any increased pain, shortness of breath, bleeding, nausea or vomiting, chestpain, or any unexpected problems, contact your Primary Care Provider. Call [facility] ([phone]) or report to the closest Emergency Room. Call 911 if necessary. 04/07/25 1303 <Electronically signed by Stefan Shultz MD> Cosigner Signature (if applicable): CC: JESUS CALLAHAN ~ Signed [facility] Work Phone: 1(806) 296-290305-30-2025 Discharge summary [facility] Medical Records Department [address] [place] [address] Emergency Department Summary 04/07/25 MR#: [id number] Acct: [id number] Name: MCKENNAPATRICK Jr. Rep #:[id number] : [...] he is having a hard time breathing. [facility] Medical History BPH without urinary obstruction COPD [...] % (Auto) 66.2 Lymph % (Auto) 20.0 [place] % (Auto) 12.0 H Eos % (Auto) [...] The left pneumothorax has resolved. Reading Location: [place] [address] Management Discussion w/another healthcare provider: Hospitalist and Active Directory Specialist (surgery Wanek - ok to follow;pulm not [...] pulmonary disease), Hypoxemia Disposition Disposition: Acute Care [facility] What to do if you have Problems For any increased pain, shortness of breath, bleeding, nausea or vomiting, chestpain, or any unexpected problems, contact your Primary Care Provider. Call [facility] ([phone]) or report tothe closest Emergency Room. Call 911 if necessary. 04/07/25 1303 Cosigner Signature (if applicable): CC: JESUS CALLAHAN ~ Signed [facility]05-30-2025 Radiology Diagnostic study note [facility] Imaging Services [address] [place] [address] Chest Insp/Exp 2 View MR#: [id number] Acct: [id number] Name: PATRICK ANDRES Jr. Rep #: [id number] : 1955 M 70 From: Siva Barahona MD PCP: JESUS CALLAHAN Status: REG E R Study:Chest Insp/Exp 2 View Date of Exam: 04/07/25 Exam# [id number] Ordering Dr: Cindy Shultz MD EXAM: Chest [...] The left pneumothorax has resolved. Reading Location: [place] [address] CC: Dr. Stefan Shultz MD; JESUS CALLAHAN ~ Estimating Engineer: Signed [facility]05-30-2025 Radiology Diagnostic study note [facility] Imaging Services [address] [place] [address] Biopsy/Inj or Needle Placement MR#: [id number] Acct: [id number] Name: PATRICK ANDRES Jr. Rep #: [id number] : 1955 M 70 From: Siva Barahona MD PCP: JESUS CALLAHAN Status: REG C LI Study:Biopsy/Inj or Needle Placement Date of Exam: 04/07/25 Exam# [id number] Ordering Dr: Jonathan Ledezma NP PROCEDURE: BIOPSY/INJ [...] pneumothorax which was treated appropriately. Reading Location: [place] [address] CC: FRIEDA Ledezma; JESUS CALLAHAN ~ Estimating Engineer: Signed [facility]05-30-2025 Radiology Diagnostic study note [facility] Imaging Services [address] [place] [address] [id number] Chest Insp/Exp 2 View MR#: [id number] Acct: [id number] Name: PATRICK ANDRES Jr. Rep #: [id number] : 1955 M 70 From: Siva Barahona MD PCP: JESUS CALLAHAN Status: REG C LI Study:Chest Insp/Exp 2 View Date of Exam: 04/07/25 Exam# [id number] Ordering Dr: Saulo Dowd i, MD EXAM: [...] emergency room for appropriate treatment. Reading Location: [facility]1 CC: Dr. Saulo Barahona MD; JESUS CALLAHAN ~ Estimating Engineer: Signed [facility]05-06-2025 Evaluation note* Diagnosis Onset Date Resolution Status [...] acute June 05, 2025 12:04pm [facility] Work Phone: [phone] 241-381605-06-2025 Evaluation note* Diagnosis Onset Date Resolution Status [...] left lung acute June 12, 2025 9:26am [facility] [employer] Work Phone: [phone]) [phone] Evaluation note* Diagnosis Onset Date Resolution Status [...] Immunotherapy encounter acute A ugust 2024 7:35am [facility] Work Phone: [phone]) [phone] Evaluation note* Diagnosis Onset Date Resolution Status [...] of left lung acute June 29 8:52am [facility] Work Phone: 1([phone]) 408-334805-06-2025 Evaluation note* Diagnosis Onset Date Resolution Status [...] induced neutropenia acute July 05, 2025 8:17am [facility] Work Phone: 1([phone]) 411-578203-25-2025 Evaluation note* Diagnosis Onset Date Resolution Status [...] inactive April 19, 2025 7:40am [facility] Work Phone: 1(192) 675-728003-25-2025 Evaluation note* Diagnosis Onset Date Resolution Status [...] left lung acute May 01, 2025 9:12am [employer] Work Phone: 1([phone]) 858-545003-25-2025 Evaluation note* Diagnosis Onset Date Resolution Status [...] left lung acute May 29, 2025 10:21am [employer] Work Phone: [phone]) [phone] Evaluation note* Diagnosis Onset Date Resolution Status [...] left lung acute May 31, 2025 12:40pm [facility] Work Phone: [phone]) 958-372802-17-2025 Evaluation note* Diagnosis Onset Date Resolution Status [...] chronic March 14, 2025 8:33am [facility] Work Phone: [phone]) 224-533802-17-2025 Evaluation note* Diagnosis Onset Date Resolution Status [...] disease) chronic April 07 1:24pm [facility] Work Phone: [phone]) 237-479602-17-2025 Evaluation note* Diagnosis Onset Date Resolution Status [...] use disorder inactive April 19, 2025 7:40am [facility] Work Phone: [phone]) [phone] [facility]12-30-2024 Evaluation note* Diagnosis Onset Date Resolution [...] 31 8:49am Tobacco use disorder chronic Wilson 2024 8:49am [facility] Work Phone: [phone]) [phone] Procedure [facility] 01-09-2024 Discharge summary Author Emma Wilson [facility] January 09, 2024 1:30pm Note Date/Time January 09, 2024 10:1 5am [facility] Medical Records Department [address] [place] [address] Discharge Summary 01/09/24 1008 MR#: [id number] Acct: [id number] Name: PATRICK ANDRES Jr. Rep #:[id number] : 1955 68 From: Emma Wilson DO PCP: JESUS CALLAHAN Status:ADM I NO Location: [place] [address] Providers Date of Admission: 01/08/24 Date of [...] has had a previous anterior and inferior ID -We will cycle cardiac enzymes -Obtain previous medical records in the form of echo and EKG from [facility] if available -Start aspirin 81 mg daily [...] presented to the emergency department [facility] on 01/08/2024 for an iatrogenic pneumothoraxthat he sustained after undergoing a CT-guided biopsy for left-sided lung mass. He evidently underwent a low-dose CT scan at [facility] on 12/16/2023 that demonstrated bilateral emphysematous changes [...] when he had any symptoms consistent with ID. I have asked him to see Dr. [...] % (Auto) 63.0, Lymph % (Auto) 25.8, [place]% (Auto) 9.7, Eos % (Auto) 0.9, Baso [...] 9:46 EST Reading Location ID and State: [address] [place] [address] , Service support , D/C Instructions Discharge [...] and Lateral (Routine) Timeframe: 1 Week Facility: [facility] - Location: [facility] Ordered By: Dr. Caden Lockwood Referrals / [...] you were in the hospital) JESUS CALLAHAN WEIGHER AND CRUSHER-C [Primary Care Provider] - See Referral Note (as needed) Disposition Disposition (needs filled in before D/C Order can be placed): Home, Self Care Charges/Coding Visit Charges Inpatient E&M: 91046 Disch Hosp >30min 01/09/24 1330 <Electronically signed by Emma Wilson DO> Cosigner Signature (if applicable): CC: Dr. Pierre Catalan DO; Dr. Emma Wilson DO; Dr. Lenny Franks MD; JESUS CALLAHAN~ Signed [facility] Work Phone: 1([phone]) 341-893903-02-2024 Progress note Author Caden Lockwood [facility] January 09, 2024 9:58am Note Date/Time January 09, 2024 9:58 am [facility] Medical Records Department [address] [place] [address] Progress Note 01/09/24 0957 MR#: [id number] Acct: [id number] Name: PATRICK ANDRES Jr. Rep #:[id number] : 1955 68 From: Caden juarez MD PCP: JESUS CALLAHAN Status:ADM I NO Location: UT3 ED662-2 Progress Note Patient had chest x-ray which [...] x-ray is obtained. Caden Lockwood MD Pager: [facility] [address] [place] [address], [address] [place] [address] Office: 01/09/2411 <Electronically signed by Caden Lockwood MD> Caden Lockwood MD Cosigner Signature (if applicable): CC: ~ Signed [facility] Work Phone: 1(701) 548-607603-02-2024 Progress note Author Caden Lockwood [facility] January 09, 2024 8:12am Note Date/Time January 09, 2024 8:12 am [facility] Medical Records Department [address] [place] [address] Progress Note - Surgery 01/09/24 0812 MR#: [id number] Acct: [id number] Name: PATRICK ANDRES Jr. Rep #:[id number] : 1955 68 From: Caden juarez MD PCP: JESUS CALLAHAN WEIGHER AND CRUSHERTrina Status:ADM I NO Location: [place] [address] Subjective Subjective Patient is comfortable with no [...] % (Auto) 63.0, Lymph % (Auto) 25.8, [place]% (Auto) 9.7, Eos % (Auto) 0.9, Baso [...] can go home. Caden Lockwood MD Pager: [facility] [address] [place] [address], [address] [place] [address] Office: 01/09/24 0812 <Electronically signed by Caden Lockwood MD> Cosigner Signature (if applicable): CC: ~ Signed [facility] Work Phone: 1([phone]) 549-259803-01-2024 Consult note Author Caden Lockwood [facility] January 08, 2024 4:55pm Note Date/Time January 08, 2024 4:55 pm [facility] Medical Records Department [address] [place] [address] Consultation - Surgical 01/08/24 1653 MR#: [id number] Acct: [id number] Name: PATRICK ANDRES Jr. Rep #:[id number] : 1955 68 From: Caden juarez MD PCP: JESUS CALLAHAN Status:ADM I NO Location: [place] [address] Assessment & Plan Assessment/Plan (1) Iatrogenic pneumothorax: [...] in the morning. Caden Lockwood MD Pager: [facility] [address] [place] [address], [address] [place] [address] Office: HPI Consult Data Date of Consult: [...] but he is not short of breath. [facility] Medical History (Updated 01/08/24 @ 13:41 by [...] % (Auto) 63.0, Lymph % (Auto) 25.8, [place]% (Auto) 9.7, Eos % (Auto) 0.9, Baso [...] EST Reading Location ID and State: [address] [facility] , Service support , 01/08/24 1659 <Electronically signed by Caden Lockwood MD> Cosigner Signature (if applicable): CC: Dr. Caden Lockwood MD; JESUS CALLAHAN~ Signed [facility] Work Phone: 1(511) 286-630903-01-2024 Discharge summary Author James Lewis [facility] January 08, 2024 4:20pm Note Date/Time January 08, 2024 10:3 0am [facility] Medical Records Department [address] [place] [address] Emergency Department Summary 01/08/24 MR#: [id number] Acct: [id number] Name: PATRICK ANDRES JrQuan Rep #:[id number] : 1955 68 From: James Lewis MD PCP: JESUS CALLAHAN Status:ADM I NO [facility] History of Present Illness Chief Complaint: [...] patient will be an observation admission to [facility]. History & Record Review Discussion w/independent historian: [...] in place Disposition Disposition: Acute Care Hospital [facility] What to do if you have Problems For any increased pain, shortness of breath, bleeding, nausea or vomiting, chestpain, or any unexpected problems, contact your Primary Care Provider. Call [facility] ([phone]) or report to the closest Emergency Room. Call 911 if necessary. 01/08/24 1620 <Electronically signed by James Lewis MD> Cosigner Signature (if applicable): CC: JESUS CALLAHAN ~ Signed [facility] Work Phone: 1(408) 183-900103-01-2024 History and physical note Author Emma Wilson [facility] January 08, 2024 12:23pm Note Date/Time January 08, 2024 11:5 2am [facility] Medical Records Department [address] [place] [address] H&P Exam - Hospitalist 01/08/24 1151 MR#: [id number] Acct: [id number] Name: PATRICK ANDRES Rep #:[id number] : 1955 68 From: Emma Wilson DO PCP: JESUS CALLAHAN Status:REG E R Location: ED HPI - General General Date of Service: 01/08/24 Chief Complaint: Iatrogenic pneumothorax HPI Narrative PATRICK ANDRES, is a 68 M who presented to the emergency department at [facility] on 01/08/2024 for iatrogenic pneumothorax that he sustained post CT-guided biopsy for a left-sided lung mass. He evidently underwent a low-dose CT scan at [facility] on 12/16/2023 that demonstrated bilateral emphysematous changes [...] air. Labs had not yet been obtained. [facility] Medical History Hypertension Home Medications erythromycin 5 [...] (Updated 01/08/24 @ 12:[address] Emma Wilsno DO) Other Hypertension Surgical History H/O vasectomy [...] has had a previous anterior and inferior ID -We will cycle cardiac enzymes -Obtain previous medical records in the form of echo and EKG from [facility] if available -Start aspirin 81 mg daily [...] -Full code Charges/Coding Visit Charges Inpatient E&M: 06336 Init Hosp L2 01/08/24 1223 <Electronically signed by Emma Wilson DO> Cosigner Signature (if applicable): CC: Dr. Emma Wilson DO; JESUS [employer]HER [employer] CRUSHER-C [place]~ Signed [facility] Work Phone: 1(512) 594-107803-01-2024 Procedure [facility] Consult note Author Fiorella Barraza [facility] Note Date/Time April 10, 2025 3:15p m [facility] Medical Records Department [address] [place] [address] Counseling Note - Pharmacy 04/10/25 1444 MR#: [id number] Acct: [id number] Name: PATRICK ANDRES Jr. Rep #:[id number] : 1955 70 From: Fiorella Barraza PCP: JESUS CALLAHAN Status:ADM I N Y Location: [place] [address] Pharmacy [place] Med Reconciliation Pharmacy Service has performed discharge [...] applicable): Date CC: ~ Signed [facility] Work Phone: Consult note Author Adelaida Hou [facility] Note Date/Time June 05, 2025 2:58 pm [facility] Medical Records Department [address] [place] [address] [place] [address] Anesthesia Postop Eval I 06/05/25 1457 MR#: [id number] Acct: [id number] Name: PATRICK ANDRES Jr. Rep #:[id number] : 1955 70 From: Adelaida Hou CRNA PCP: FRIEDA KEARNEY Status:REG SDC Y Race: C Location: [place] [address] Anesthesia: Postop Eval I Current Vital Signs [...] 06/05/25 1458 <Electronically signed by Adelaida ventura RETURN TO VENDOR> Date _ Adelaida Hou RETURN TO VENDOR Cosigner Signature: Date CC: ~ Signed [facility] Work Phone: Consult note Author Gavin [facility] Note Date/Time June 05, 2025 4:45 pm [facility] Medical Records Department [address] [place] [address] Anesthesia Postop Eval II 06/05/25 1625 MR#: [id number] Acct: [id number] Name: PATRICK ANDRES Jr. Rep #:[id number] : 1955 70 From: Gavin Hill MD PCP: FRIEDA KEARNEY Status:REG SDC Y Race: C Location: [place] [address] Anesthesia Postop Eval I Sum Postop Eval Completion status Anesthesia document: Postop Eval 1 completed: Yes Anesthesia Postop Eval I Summary Anesthesia Postop Eval I Summary: Anesthesia Postop Eval I: Assessment Summary Airway patent Yes 06/05/25 14:58 RETURN TO VENDOR.JDEF Spontaneous unlabored Yes 06/05/25 14:58 RETURN TO VENDOR.JDEF respirations Mental status Awake,Calm 06/05/25 14:58 RETURN TO VENDOR.JDEF nausea No 06/05/25 14:58 RETURN TO VENDOR.JDEF Vomiting No 06/05/25 14:58 RETURN TO VENDOR.JDEF Anesthesia Postop Eval I: Fluid Summary Crystalloid volume administer 500 06/05/25 14:58 RETURN TO VENDOR.JDEF (ml) Colloids volume administered ( ml) Blood Product volume administered (ml) Total IV fluid infused 500 06/05/25 14:58 RETURN TO VENDOR.JDEF Anesthesia Postop Eval I: Summary Notes Anesthesia Complication No 06/05/25 14:58 RETURN TO VENDOR.JDEF Anesthesia Complication Comment: Post-operative progress note Anesthesia: Postop Eval II Evaluation Mental status: Awake Pain Level: 0 nausea: No Vomiting: No 06/05/25 1625 <Electronically signed by Gavin Hill MD > Date _ Gavin Hill [facility] Signature: Date CC: ~ Signed [facility] Work Phone: Discharge summary Author Malcolm Hanson [facility] Note Date/Time April 10, 2025 2:24p [facility] Medical Records Department [address] [place] [id number] Discharge Summary 04/10/25 1422 MR#: [id number] Acct: [id number] Name: PATRICK ANDRES Jr. Rep #:[id number] : 1955 70 From: Malcolm Hanson DO PCP: JESUS CALLAHAN Status:ADM I N Location: [facility] [id number] Providers Date of Admission: 04/07/25 Primary Care [...] the costophrenic angles, probably adhesions. [facility] Chest [facility]-Ray 04/10/25 12:35 IMPRESSION: 1. Is tissue and patchy airspace disease. Status post removal of left-sided chest tube. No pneumothorax. 2. Suggestion of COPD. Reading [facility] Instructions Discharge Diet: No restrictions DC [...] Referrals / Follow Up: [facility] [Provider Group] - 04/14/25 9:45 am JESUS CALLAHAN NP-C [Primary Care Provider] - 04/17/25 Disposition Disposition (needs filled in before D/C Order can be placed): Home, Self Care Charges/Coding Visit Charges Inpatient E&M: 17337 Disch Hosp 04/10/25 4894 <Electronically signed by Malcolm Hanson DO> Cosigner Signature (if applicable): CC: Dr. Malcolm Hanson DO; JESUS CALLAHAN~ Signed [facility] Work Phone: Discharge summary Author Ray Sanders [facility] Note Date/Time June 05, 2025 3:02 pm [facility] Medical Records Department [address] [place] [address] Instructions for Home/Discharge Instructions 06/05/25 1457 MR#: [id number] Acct: [id number] Name: PATRICK ANDRES Jr. Rep #:[id number] : 1955 70 From: Ray Sanders MD PCP: FRIEDA KEARNEY Status:REG [facility] Discharge Instructions Diet Discharge Diet: Light diet [...] Primary Care Provider: JESUS CALLAHAN Print Language: Romanian Discharge Orders/Prescriptions Prescriptions: New oxycodone 5 mg [...] can be placed): Home, Self Care 06/05/25 4302<Electronically signed by Ray Sanders MD>Ray Sanders MD CC: WEIGHER AND CRUSHER-C JESUS CALLAHAN ~ Signed [facility] Work Phone: Evaluation + Plan note Future Appointments Appointment Date:10/21/2021 10:40:00 AM Scheduled Provider:WENDY CHRISTINA APRN, CNP Location:[facility] Appointment Type:PC OV [facility] Evaluation + Plan note Future Appointments Appointment Date:09/06/2021 09:00:00 AM Scheduled Provider:WENDY CHRISTINA APRN - MASTER MACHINIST Location:[facility] Appointment Type: OV Follow Up [facility] Evaluation + Plan note Future Appointments Appointment Date:12/23/2023 07:00:00 AM Scheduled Provider:JESSU CALLAHAN Location:[facility] Appointment Type:PC OV Follow Up Future Scheduled Tests Radiology* CT Low Dose Lung Cancer Screening (LDCT) 11/25/23 [facility] Evaluation + Plan note Future Appointments Appointment Date:12/23/2023 07:00:00 AM Scheduled Provider:JESUS CALLAHAN Location:[facility] Appointment Type: OV Follow Up [facility] Evaluation + Plan note Future Appointments Appointment Date:06/22/2024 07:00:00 AM Scheduled Provider:JESUS CALLAHAN Location:[facility] Appointment Type: OV Follow Up [facility] Evaluation note* Diagnosis Onset Date Resolution Status Nicotine dependence, cigarettes, uncomplicated chronic Pulmonary nodules chronic Iatrogenic pneumothorax acut e Mass of left lung acute Thoracostomy tube in place a cute Nicotine dependence, cigarettes, uncomplicated [facility] Work Phone: Evaluation note* Diagnosis Onset Date Resolution Status Pulmonary nodules chronic Iatrogenic pneumothorax reso lved Thoracostomy tube in place r esolved Pulmonary nodules [facility] Work Phone: History and physical note Author Emma Wilson [facility] January 08, 2024 12:23pm Note Date/Time January 08, 2024 11:5 2am [facility] Medical Records Department [address] [place] [address] H&P Exam - Hospitalist 01/08/24 1151 MR#: [id number] Acct: [id number] Name: PATRICK ANDRES Jr. Rep #:[id number] : 1955 68 From: Emma Wilson DO PCP: JESUS CALLAHAN WEIGHER AND CRUSHER-C Status:REG E R Location: ED HPI - General General Date of Service: 01/08/24 Chief Complaint: Iatrogenic pneumothorax HPI Narrative PATRICK ANDRES, is a 68 M who presented to the emergency department at [facility] on 01/08/2024 for iatrogenic pneumothorax that he sustained post CT-guided biopsy for a left-sided lung mass. He evidently underwent a low-dose CT scan at [facility] on 12/16/2023 that demonstrated bilateral emphysematous changes [...] air. Labs had not yet been obtained. [facility] Medical History Hypertension Home Medications erythromycin 5 [...] has had a previous anterior and inferior ID -We will cycle cardiac enzymes -Obtain previous medical records in the form of echo and EKG from [facility] if available -Start aspirin 81 mg daily [...] -Full code Charges/Coding Visit Charges Inpatient E&M: 17964 Init Hosp L2 01/08/24 1223 <Electronically signed by Emma Wilson DO> Cosigner Signature (if applicable): CC: Dr. Emma Wilson DO; JESUS WEIGHER AND CRUSHER-C LONDON~ Signed [facility] Work Phone: Hospital course Narrative No data available for this section [facility] Hospital Discharge instructions No data available for this section [facility] Hospital Discharge instructionsAmbulatory Orders* Fast Pass: Oncology Referral [facility] Location: None [facility] Work Phone: Hospital Discharge instructionsAmbulatory Orders* General Surgery Location: None [facility] Work Phone: Hospital Discharge instructionsAmbulatory Orders* Prior Authorization Referral - ONC/HEM Location: None [facility] Work Phone: Progress note No data available for this section [facility] Reason for referral (narrative)No reason for referral [facility] Work Phone: Chief Complaint and Reason [...] No January 08, 2024 10:20am Power of Electroencephalograph Technician No January 07 10:20am Advance Directive Response Recorded Date/ Time Living Will No January 08, 2024 1:36pm Power of Electroencephalograph Technician No January 07 1:36pm Advance Directive Response Recorded Date/ Time Living Will No January 08, 2024 2:36pm Power of Electroencephalograph Technician No January 07 2:36pm Advance Directive Response Recorded Date/ Time Living Will No November 07, 2 024 3:21am Do you have a Healthcare Power of Electroencephalograph Technician? No November 07, 2024 3:21am Advance Directive Response Recorded Date/ Time Do you have a Healthcare Power of Electroencephalograph Technician? No April 07, 2025 10:51am Advance Directive Response Recorded Date/ Time Do you have a Healthcare Power of Electroencephalograph Technician? No April 07, 2025 2:21pm Advance Directive Response Recorded Date/ Time Do you have a Healthcare Power of Electroencephalograph Technician? No June 02, 2025 9:58am Do you have a Healthcare Power of Electroencephalograph Technician? No April 07, 2025 2:21pm Advance Directive Response Recorded Date/ Time Do you have a Healthcare Power of Electroencephalograph Technician? No June 02, 2025 9:58am Do you have a Healthcare Power of Electroencephalograph Technician? No April 07, 2025 2:21pm Advance Directives on File Yes Augus t 2024 9:48am Living Will Yes June 14, 2025 9:48am Do you have a Healthcare Power of Electroencephalograph Technician? Yes June 14, 2025 9:48am Name of Medical Power of Electroencephalograph Technician Honey June 14, 2025 9:48am Advance Directives Yes June 14, 025 9:48am Advance Directive Response Recorded Date/ Time Do you have a Healthcare Power of Electroencephalograph Technician? No June 02, 2025 9:58am Do you have a Healthcare Power of Electroencephalograph Technician? No April 07, 2025 2:21pm Advance Directives on File Yes Augus t 2024 1:53pm Living Will Yes July 06 1:53pm Do you have a Healthcare Power of Electroencephalograph Technician? Yes July 06, 2025 1:53pm Name of Medical Power of Electroencephalograph Technician Honey July 06, 2025 1:53pm Advance Directives [...] Physician Family Provider Active JESUS LONDON , WEIGHER AND CRUSHER-C Primary Care Provider Active Team Status: Inactive Member Role Status Dates No Primary Care Physician Primary Care Provider, Refer ring Provider Active Dr. Pierre Catalan DO Attending Provider Active Team Status: Active Member Role Status Dates JESUS LONDON , WEIGHER AND CRUSHER-C Primary Care Provider Active Dr. Pierre Catalan DO Referring Provider, Other Provide r Active Sharyn Chavez WEIGHER AND CRUSHER-C Attending Provider Active Team Status: Active Member Role Status Dates JESUS LONDON , WEIGHER AND CRUSHER-C Primary Care Provider Active Dr. James Lewis MD Emergency Provider Active Dr. Emma Wilson DO Attending Provider Active Team Status: Active Member Role Status Dates JESUS LONDON , WEIGHER AND CRUSHER-C Primary Care Provider Active Dr. Pierre Catalan DO Attending Provider, Referring Pro vider Active Team Status: Active Member Role Status Dates JESUS LONDON , WEIGHER AND CRUSHER-C Primary Care Provider Active Dr. James Lewis MD Emergency Provider Active Dr. Emma Wilson DO Admit Provider, Attending Provide r Active Team Status: Active Member Role Status Dates JESUS LONDON , WEIGHER AND CRUSHER-C Primary Care Provider Active Dr. James Lewis MD Emergency Provider Active Dr. Emma Wilson DO Admit Provider, Other Provider Ac tive Dr. Caden Lockwood MD Attending Provider, Other Provider Active Team Status: Active Member Role Status Dates JESUS LONDON , WEIGHER AND CRUSHER-C Primary Care Provider Active Dr. James Lewis MD Emergency Provider Active Dr. Emma Wilson DO Admit Provider, Att ending Provider, Other Provider Active Dr. Caden Lockwood MD Other Provider Active Team Status: Inactive Member Role Status Dates JESUS LONDON , WEIGHER AND CRUSHER-C Primary Care Provider Active Dr. James Lewis MD Emergency Provider Active Dr. Emma Wilson DO Admit Provider, Attending Provide r Active Dr. Caden Lockwood MD Other Provider Active Team Status: Inactive Member Role Status Dates JESUS LONDON , WEIGHER AND CRUSHER-C Primary Care Provider Active Dr. Pierre Catalan DO Attending Provider, Referring Pro vider Active Team Status: Active Member Role Status Dates JESUS LONDON , WEIGHER AND CRUSHER-C Primary Care Provider Active Dr. James Lewis MD Emergency Provider Active Dr. Emma Steve , DO Admit Provider, Ref erring Provider, Other Provider Active Dr. Caden Lockwood MD Attending Provider, Other Provider Active Team Status: Active Member Role Status Dates JESUS CALLAHAN WEIGHER AND CRUSHER-C Primary Care Provider Active Dr. James Lewis MD Emergency Provider Active Dr. Emma Wilson , DO Admit Provider, Other Provider Ac tive Dr. Caden Lockwood MD Attending Pr ovider, Referring Provider, Other Provider Active Team Status: Active Member Role Status Dates JESUS CALLAHAN WEIGHER AND CRUSHER-C Primary Care Provider Active Dr. Pierre Catalan , Referring Provider, Other Provide r Active Dr. Caden Lockwood MD Other Provider Active Dr. Justin Farah MD Attending Provider Active Team Status: Inactive Member Role Status Dates JESUS CALLAHAN WEIGHER AND CRUSHER-C Primary Care Provider Active Dr. Pierre Catalan , Attending Provider, Referring Pro vider Active Dr. Caden Lockwood MD Other Provider Active Team Status: Active Member Role Status Dates JESUS CALLAHAN WEIGHER AND CRUSHER-C Primary Care Provider Active Team Status: Inactive Member Role Status Dates JESUS CALLAHAN WEIGHER AND CRUSHER-C Primary Care Provider Active Start: November 07, [...] Active Member Role Status Dates JESUS CALLAHAN WEIGHER AND CRUSHER-C Primary Care Provider Active Start: November 07, [...] Member Role Status Dates JESUS LONDON , WEIGHER AND CRUSHER-C Primary Care Provider Active Start: November 07, 2024 Dr. Malcolm Torres MD Attending Provider Active S tart: November 07, 2024 Dr. Goldy Patino DO Referring Provider Active Start: November 07, 2024 Team Status: Active Member Role Status Dates JESUS LONDON , WEIGHER AND CRUSHER-C Primary Care Provider Active Start: November 07, 2024 Dr. Freddy Mayen MD Attending Provider Active S tart: November 07, 2024 Team Status: Active Member Role Status Dates JESUS LONDON , WEIGHER AND CRUSHER-C Primary Care Provider Active Start: November 08, [...] Member Role Status Dates JESUS LONDON , WEIGHER AND CRUSHER-C Primary Care Provider Active Start: November 11, 2024 End: November 11, 2024 JESUS LONDON , WEIGHER AND CRUSHER-C Referring Provider Active Start: November 11, 2024 End: November 11, 2024 EDGARDO Steele Attending Provider Active Star t: November 11, 2024 End: November 11, 2024 Team Status: Inactive Member Role Status Dates JESUS LONDON , WEIGHER AND CRUSHER-C Primary Care Provider Active Start: December 01, 2024 End: December 01, 2024 EDGARDO Steele Attending Provider Active Star t: December 01, 2024 End: December 01, 2024 EDGARDO Steele Referring Provider Active Star t: December 01, 2024 End: December 01, 2024 Team Status: Inactive Member Role Status Dates JESUS LONDON , WEIGHER AND CRUSHER-C Primary Care Provider Active Start: December 08, 2024 End: December 08, 2024 EDGARDO Steele Attending Provider Active Star t: December 08, 2024 End: December 08, 2024 EDGARDO Steele Referring Provider Active Star t: December 08, 2024 End: December 08, 2024 Team Status: Active Member Role Status Dates JESUS CARMENETLER , WEIGHER AND CRUSHER-C Primary Care Provider Active Start: December 08, 2024 Dr. Malcolm Torres MD Attending Provider Active S tart: December 08, 2024 Team Status: Inactive Member Role Status Dates JESUS CARMENETLER , WEIGHER AND CRUSHER-C Primary Care Provider Active Start: December 26, 2024 End: December 26, 2024 JESUS CALLAHAN , WEIGHER AND CRUSHER-C Referring Provider Active Start: December 26, 2024 End: December 26, 2024 Dr. Malcolm Torres MD Attending Provider Active S tart: December 26, 2024 End: December 26, 2024 Team Status: Inactive Member Role Status Dates JESUS CALLAHAN , WEIGHER AND CRUSHER-C Primary Care Provider Active Start: January 31, 2025 End: January 31, 2025 JESUS CARMENETLER , WEIGHER AND CRUSHER-C Referring Provider Active Start: January 31, 2025 End: January 31, 2025 Raegan Ledezma WEIGHER AND CRUSHER, WEIGHER AND CRUSHER-C Attending Provider Active Start: January 31, 2025 End: January 31, 2025 Team Status: Inactive Member Role Status Dates JESUS CARMENETLER , WEIGHER AND CRUSHER-C Primary Care Provider Active Start: February 27, 2025 End: February 27, 2025 Raegan Ledezma WEIGHER AND CRUSHER, WEIGHER AND CRUSHER-C Attending Provider Active Start: February 27, 2025 End: February 27, 2025 Raegan Ledezma WEIGHER AND CRUSHER, WEIGHER AND CRUSHER-C Referring Provider Active Start: February 27, 2025 End: February 27, 2025 Team Status: Inactive Member Role Status Dates JESUS CARMENETGORDO WEIGHER AND CRUSHER-C Primary Care Provider Active Start: March 02, 2025 End: March 02, 2025 Raegan Ledezma WEIGHER AND CRUSHER, WEIGHER AND CRUSHER-C Attending Provider Active Start: March 02, 2025 End: March 02, 2025 Raegan Ledezma WEIGHER AND CRUSHER, WEIGHER AND CRUSHER-C Referring Provider Active Start: March 02, 2025 End: March 02, 2025 Team Status: Active Member Role Status Dates JESUS CARMENETLER , WEIGHER AND CRUSHER-C Primary Care Provider Active Start: March 03, 2025 Raegan Ledezma WEIGHER AND CRUSHER, WEIGHER AND CRUSHER-C Referring Provider Active Start: March 03, 2025 Raegan Ledezma WEIGHER AND CRUSHER, WEIGHER AND CRUSHER-C Other Provider Active Start: March 03, 2025 Dr. Pierre Catalan DO Attending Provider Active S tart: March 03, 2025 Team Status: Inactive Member Role Status Dates JESUS CALLAHAN WEIGHER AND CRUSHER-C Primary Care Provider Active Start: March 14, 2025 End: March 14, 2025 JESUS CALLAHAN WEIGHER AND CRUSHER-C Referring Provider Active Start: March 14, 2025 End: March 14, 2025 Raegan Ledezma WEIGHER AND CRUSHER, WEIGHER AND CRUSHER-C Attending Provider Active Start: March 14, 2025 End: March 14, 2025 Team Status: Active Member Role Status Dates JESUS CALLAHAN WEIGHER AND CRUSHER-C Primary Care Provider Active Start: April 07, 2025 Raegan Ledezma WEIGHER AND CRUSHER, WEIGHER AND CRUSHER-C Attending Provider Active Start: April 07, 2025 Raegan Ledezma WEIGHER AND CRUSHER, WEIGHER AND CRUSHER-C Referring Provider Active Start: April 07, 2025 Team Status: Inactive Member Role Status Dates JESUS CALLAHAN WEIGHER AND CRUSHER-C Primary Care Provider Active Start: April 07, 2025 End: April 07, 2025 Dr. Stefan Shultz MD Emergency Provider Active Start: April 07, 2025 End: April 07, 2025 Team Status: Inactive Member Role Status Dates JESUS CALLAHAN WEIGHER AND CRUSHER-C Primary Care Provider Active Start: April 07, [...] Active Member Role Status Dates JESUS CALLAHAN WEIGHER AND CRUSHER-C Primary Care Provider Active Start: April 07, [...] Active Member Role Status Dates JESUS CALLAHAN [facility] Primary Care Provider Active Start: April 09, [...] Active Member Role Status Dates JESUS CALLAHAN [facility] Primary Care Provider Active Start: April 10, [...] Active Member Role Status Dates JESUS CALLAHAN [facility] Primary Care Provider Active Start: April 10, [...] 2025 End: April 07, 2025 Raegan Ledezma WEIGHER AND CRUSHER, WEIGHER AND CRUSHER-C Attending Provider Active Start: April 07, 2025 End: April 07, 2025 Raegan Ledezma WEIGHER AND CRUSHER, WEIGHER AND CRUSHER-C Referring Provider Active Start: April 07, 2025 End: April 07, 2025 Team Status: Inactive Member Role Status Dates JESUS CALLAHAN NP-C Primary Care Provider Active Start: April 19, 2025 End: April 19, 2025 JESUS CALLAHAN NP-C Referring Provider Active Start: April 19, 2025 End: April 19, 2025 Raegan Ledezma WEIGHER AND CRUSHER, WEIGHER AND CRUSHER-C Attending Provider Active Start: April 19, 2025 [...] End: April 25, 2025 Raegan Ledezma NP, WEIGHER AND CRUSHER-C Attending Provider Active Start: April 25, 2025 End: April 25, 2025 Raegan Ledezma NP, WEIGHER AND CRUSHER-C Referring Provider Active Start: April 25, 2025 End: April 25, 2025 Team Status: Inactive Member Role Status Dates JESUS CALLAHAN NP-C Primary Care Provider Active Start: May 01, 2025 End: May 01, 2025 Dr. Ayden Bosch MD Attending Provider Active S tart: May 01, 2025 End: May 01, 2025 Raegan Ledezma WEIGHER AND CRUSHER, WEIGHER AND CRUSHER-C Referring Provider Active Start: May 01, 2025 End: May 01, 2025 Team Status: Active Member Role/Relationship Status Dates JESUS LONDON , WEIGHER AND CRUSHER-C Primary Care Provider Active Team Status: Inactive Member Role/Relationship Status Dates JESUS LONDON , WEIGHER AND CRUSHER-C Primary Care Provider Active Start: January 31, 2025 End: January 31, 2025 JESUS CALLAHAN , WEIGHER AND CRUSHER-C Referring Provider Active Start: January 31, 2025 End: January 31, 2025 Raegan Ledezma WEIGHER AND CRUSHER, WEIGHER AND CRUSHER-C Attending Provider Active Start: January 31, 2025 End: January 31, 2025 Team Status: Inactive Member Role/Relationship Status Dates JESUS CALLAHAN WEIGHER AND CRUSHER-C Primary Care Provider Active Start: February 27, 2025 End: February 27, 2025 Raegan Ledezma WEIGHER AND CRUSHER, WEIGHER AND CRUSHER-C Attending Provider Active Start: February 27, 2025 End: February 27, 2025 Raegan Ledezma WEIGHER AND CRUSHER, WEIGHER AND CRUSHER-C Referring Provider Active Start: February 27, 2025 End: February 27, 2025 Team Status: Inactive Member Role/Relationship Status Dates JESUS CALLAHAN , WEIGHER AND CRUSHER-C Primary Care Provider Active Start: March 02, 2025 End: March 02, 2025 Raegan Ledezma WEIGHER AND CRUSHER, WEIGHER AND CRUSHER-C Attending Provider Active Start: March 02, 2025 End: March 02, 2025 Raegan Ledezma WEIGHER AND CRUSHER, WEIGHER AND CRUSHER-C Referring Provider Active Start: March 02, 2025 End: March 02, 2025 Team Status: Active Member Role/Relationship Status Dates JESUS CALLAHAN WEIGHER AND CRUSHER-C Primary Care Provider Active Start: March 03, 2025 Raegan Ledezma WEIGHER AND CRUSHER, WEIGHER AND CRUSHER-C Referring Provider Active Start: March 03, 2025 Raegan Ledezma WEIGHER AND CRUSHER, WEIGHER AND CRUSHER-C Other Provider Active Start: March 03, 2025 Dr. Pierre Catalan DO Attending Provider Active S tart: March 03, 2025 Team Status: Inactive Member Role/Relationship Status Dates JESUS LONDON , WEIGHER AND CRUSHER-C Primary Care Provider Active Start: March 14, 2025 End: March 14, 2025 JESUS CALLAHAN , WEIGHER AND CRUSHER-C Referring Provider Active Start: March 14, 2025 End: March 14, 2025 Raegan Ledezma WEIGHER AND CRUSHER, WEIGHER AND CRUSHER-C Attending Provider Active Start: March 14, 2025 End: March 14, 2025 Team Status: Inactive Member Role/Relationship Status Dates FRIEDA KEARNEY Primary Care Provider Active Start: April 07, 2025 End: April 07, 2025 Raegan Ledezma WEIGHER AND CRUSHER WEIGHER AND CRUSHER-C Attending Provider Active Start: April 07, 2025 End: April 07, 2025 Raegan Ledezma WEIGHER AND CRUSHER, WEIGHER AND CRUSHER-C Referring Provider Active Start: April 07, 2025 [...] Member Role/Relationship Status Dates JESUS LONDON , WEIGHER AND CRUSHER-C Primary Care Provider Active Start: April 25, 2025 End: April 25, 2025 Raegan Ledezma WEIGHER AND CRUSHER, WEIGHER AND CRUSHER-C Attending Provider Active Start: April 25, 2025 End: April 25, 2025 Raegan Ledezma WEIGHER AND CRUSHER, WEIGHER AND CRUSHER-C Referring Provider Active Start: April 25, 2025 End: April 25, 2025 Team Status: Inactive Member Role/Relationship Status Dates JESUS LONDON , WEIGHER AND CRUSHER-C Primary Care Provider Active Start: May 01, 2025 End: May 01, 2025 Dr. Ayden Bosch MD Attending Provider Active S tart: May 01, 2025 End: May 01, 2025 Raegan Ledezma WEIGHER AND CRUSHER, WEIGHER AND CRUSHER-C Referring Provider Active Start: May 01, 2025 End: May 01, 2025 Team Status: Active Member Role/Relationship Status Dates JESUS LONDON , WEIGHER AND CRUSHER-C Primary Care Provider Active Start: May 01, 2025 Dr. Ayden Bosch MD Attending Provider Active S tart: May 01, 2025 Dr. Ayden Bosch MD Referring Provider Active S tart: May 01, 2025 Team Status: Inactive Member Role/Relationship Status Dates JESUS LONDON , WEIGHER AND CRUSHER-C Primary Care Provider Active Start: May 29, 2025 End: May 29, 2025 JESUS CALLAHAN , WEIGHER AND CRUSHER-C Referring Provider Active Start: May 29, 2025 End: May 29, 2025 Dr. Ayden Bosch MD Attending Provider Active S tart: May 29, 2025 End: May 29, 2025 Team Status: Inactive Member Role/Relationship Status Dates JESUS LONDON , WEIGHER AND CRUSHER-C Primary Care Provider Active Start: May 31, 2025 End: May 31, 2025 Dr. Ray Sanders MD Attending Provider Active Start: May 31, 2025 End: May 31, 2025 Dr. Ayden Bosch MD Referring Provider Active S tart: May 31, 2025 End: May 31, 2025 Team Status: Inactive Member Role/Relationship Status Dates JESUS LONDON , WEIGHER AND CRUSHER-C Primary Care Provider Active Start: February 27, 2025 End: February 27, 2025 Raegan Ledezma WEIGHER AND CRUSHER, WEIGHER AND CRUSHER-C Attending Provider Active Start: February 27, 2025 End: February 27, 2025 Raegan Ledezma WEIGHER AND CRUSHER, WEIGHER AND CRUSHER-C Referring Provider Active Start: February 27, 2025 End: February 27, 2025 Team Status: Inactive Member Role/Relationship Status Dates JESUS CALLAHAN , WEIGHER AND CRUSHER-C Primary Care Provider Active Start: March 02, 2025 End: March 02, 2025 Raegan Ledezma WEIGHER AND CRUSHER, WEIGHER AND CRUSHER-C Attending Provider Active Start: March 02, 2025 End: March 02, 2025 Raegan Ledezma WEIGHER AND CRUSHER, WEIGHER AND CRUSHER-C Referring Provider Active Start: March 02, 2025 End: March 02, 2025 Team Status: Active Member Role/Relationship Status Dates JESUS CARMENETLER , WEIGHER AND CRUSHER-C Primary Care Provider Active Start: March 03, 2025 Raegan Ledezma WEIGHER AND CRUSHER, WEIGHER AND CRUSHER-C Referring Provider Active Start: March 03, 2025 Raegan Ledezma WEIGHER AND CRUSHER, WEIGHER AND CRUSHER-C Other Provider Active Start: March 03, 2025 Dr. Pierre Catalan DO Attending Provider Active S tart: March 03, 2025 Team Status: Inactive Member Role/Relationship Status Dates JESUS LONDON , WEIGHER AND CRUSHER-C Primary Care Provider Active Start: March 14, 2025 End: March 14, 2025 JESUS CALLAHAN , WEIGHER AND CRUSHER-C Referring Provider Active Start: March 14, 2025 End: March 14, 2025 Raegan Ledezma WEIGHER AND CRUSHER, WEIGHER AND CRUSHER-C Attending Provider Active Start: March 14, 2025 End: March 14, 2025 Team Status: Inactive Member Role/Relationship Status Dates JESUS LONDON , WEIGHER AND CRUSHER-C Primary Care Provider Active Start: April 07, 2025 End: April 07, 2025 Raegan Ledezma WEIGHER AND CRUSHER, WEIGHER AND CRUSHER-C Attending Provider Active Start: April 07, 2025 End: April 07, 2025 Raegan Ledezma WEIGHER AND CRUSHER, WEIGHER AND CRUSHER-C Referring Provider Active Start: April 07, 2025 End: April 07, 2025 Team Status: Inactive Member Role/Relationship Status Dates JESUS LONDON , WEIGHER AND CRUSHER-C Primary Care Provider Active Start: April 07, [...] Active Member Role/Relationship Status Dates JESUS CALLAHAN WEIGHER AND CRUSHER-C Primary Care Provider Active Start: April 07, [...] Member Role/Relationship Status Dates JESUS CALLAHAN , WEIGHER AND CRUSHER-C Primary Care Provider Active Start: April 10, [...] Inactive Member Role/Relationship Status Dates JESUS CALLAHAN WEIGHER AND CRUSHER-C Primary Care Provider Active Start: April 19, 2025 End: April 19, 2025 JESUS CALLAHAN WEIGHER AND CRUSHER-C Referring Provider Active Start: April 19, 2025 End: April 19, 2025 Raegan Ledezma WEIGHER AND CRUSHER, WEIGHER AND CRUSHER-C Attending Provider Active Start: April 19, 2025 End: April 19, 2025 Team Status: Inactive Member Role/Relationship Status Dates JESUS CALLAHAN WEIGHER AND CRUSHER-C Primary Care Provider Active Start: April 25, 2025 End: April 25, 2025 Raegan Ledezma WEIGHER AND CRUSHER, WEIGHER AND CRUSHER-C Attending Provider Active Start: April 25, 2025 End: April 25, 2025 Raegan Ledezma WEIGHER AND CRUSHER, WEIGHER AND CRUSHER-C Referring Provider Active Start: April 25, 2025 End: April 25, 2025 Team Status: Inactive Member Role/Relationship Status Dates JESUS CALLAHAN WEIGHER AND CRUSHER-C Primary Care Provider Active Start: May 01, 2025 End: May 01, 2025 Dr. Ayden Bosch MD Attending Provider Active S tart: May 01, 2025 End: May 01, 2025 Raegan Ledezma WEIGHER AND CRUSHER, WEIGHER AND CRUSHER-C Referring Provider Active Start: May 01, 2025 End: May 01, 2025 Team Status: Active Member Role/Relationship Status Dates JESUS CALLAHAN , WEIGHER AND CRUSHER-C Primary Care Provider Active Start: May 01, 2025 Dr. Ayden Bosch MD Attending Provider Active S tart: May 01, 2025 Dr. Ayden Bosch MD Referring Provider Active S tart: May 01, 2025 Team Status: Inactive Member Role/Relationship Status Dates JESUS LONDON , WEIGHER AND CRUSHER-C Primary Care Provider Active Start: May 29, 2025 End: May 29, 2025 JESUS LONDON , WEIGHER AND CRUSHER-C Referring Provider Active Start: May 29, 2025 End: May 29, 2025 Dr. Ayden Bosch MD Attending Provider Active S tart: May 29, 2025 End: May 29, 2025 Team Status: Inactive Member Role/Relationship Status Dates JESUS LONDON , WEIGHER AND CRUSHER-C Primary Care Provider Active Start: May 31, 2025 End: May 31, 2025 Dr. Ray Sanders MD Attending Provider Active Start: May 31, 2025 End: May 31, 2025 Dr. Ayden Bosch MD Referring Provider Active S tart: May 31, 2025 End: May 31, 2025 Team Status: Inactive Member Role/Relationship Status Dates JESUS CARMENETLER , WEIGHER AND CRUSHER-C Primary Care Provider Active Start: June 05, 2025 End: June 05, 2025 Dr. Ray Sanders MD Attending Provider Active Start: June 05, 2025 End: June 05, 2025 Dr. Ray Sanders MD Referring Provider Active Start: June 05, 2025 End: June 05, 2025 Team Status: Active Member Role/Relationship Status Dates JESUS LONDON , WEIGHER AND CRUSHER-C Primary Care Provider Active Start: June 05, 2025 Dr. Ray Sanders MD Attending Provider Active Start: June 05, 2025 Dr. Ray Sanders MD Referring Provider Active Start: June 05, 2025 Dr. Ray Sanders MD Other Provider Active St art: June 05, 2025 Team Status: Inactive Member Role/Relationship Status Dates JESUS LONDON , WEIGHER AND CRUSHER-C Primary Care Provider Active Start: May 29, 2025 End: May 29, 2025 JESUS LONDON , WEIGHER AND CRUSHER-C Referring Provider Active Start: May 29, 2025 End: May 29, 2025 Dr. Ayden Bosch MD Attending Provider Active S tart: May 29, 2025 End: May 29, 2025 Team Status: Inactive Member Role/Relationship Status Dates JESUS LONDON , WEIGHER AND CRUSHER-C Primary Care Provider Active Start: May 31, 2025 End: May 31, 2025 Dr. Ray Sanders MD Attending Provider Active Start: May 31, 2025 End: May 31, 2025 Dr. Ayden Bosch MD Referring Provider Active S tart: May 31, 2025 End: May 31, 2025 Team Status: Inactive Member Role/Relationship Status Dates JESUS LONDON , WEIGHER AND CRUSHER-C Primary Care Provider Active Start: June 05, 2025 End: June 05, 2025 Dr. Ray Sanders MD Attending Provider Active Start: June 05, 2025 End: June 05, 2025 Dr. Ray Sanders MD Referring Provider Active Start: June 05, 2025 End: June 05, 2025 Team Status: Active Member Role/Relationship Status Dates JESUS LONDON , WEIGHER AND CRUSHER-C Primary Care Provider Active Start: June 05, 2025 Dr. Ray Sanders MD Attending Provider Active Start: June 05, 2025 Dr. Ray Sanders MD Referring Provider Active Start: June 05, 2025 Dr. Ray Sanders MD Other Provider Active St art: June 05, 2025 Team Status: Inactive Member Role/Relationship Status Dates JESUS LONDON , WEIGHER AND CRUSHER-C Primary Care Provider Active Start: June 12, 2025 End: June 12, 2025 JESUS LONDON , WEIGHER AND CRUSHER-C Referring Provider Active Start: June 12, 2025 End: June 12, 2025 Camille Emanuel WEIGHER AND CRUSHER, WEIGHER AND CRUSHER-C Attending Provider Active Start: June 12, 2025 End: June 12, 2025 Team Status: Inactive Member Role/Relationship Status Dates JESUS LONDON , WEIGHER AND CRUSHER-C Primary Care Provider Active Start: June 14, 2025 End: June 14, 2025 JESUS LONDON , WEIGHER AND CRUSHER-C Referring Provider Active Start: June 14, 2025 End: June 14, 2025 Dr. Ayden Bosch MD Attending Provider Active S tart: June 14, 2025 End: June 14, 2025 Team Status: Active Member Role/Relationship Status Dates JESUS LONDON , WEIGHER AND CRUSHER-C Primary Care Provider Active Start: June 14, 2025 Dr. Ayden Bosch MD Attending Provider Active S tart: June 14, 2025 Dr. Ayden Bosch MD Referring Provider Active S tart: June 14, 2025 Team Status: Inactive Member Role/Relationship Status Dates JESUS CALLAHAN WEIGHER AND CRUSHER-C Primary Care Provider Active Start: March 02, 2025 End: March 02, 2025 Raegan Ledezma WEIGHER AND CRUSHER, WEIGHER AND CRUSHER-C Attending Provider Active Start: March 02, 2025 End: March 02, 2025 Raegan Ledezma WEIGHER AND CRUSHER, WEIGHER AND CRUSHER-C Referring Provider Active Start: March 02, 2025 End: March 02, 2025 Team Status: Active Member Role/Relationship Status Dates JESUS CALLAHAN WEIGHER AND CRUSHER-C Primary Care Provider Active Start: March 03, 2025 Raegan Ledezma WEIGHER AND CRUSHER, WEIGHER AND CRUSHER-C Referring Provider Active Start: March 03, 2025 Raegan Ledezma WEIGHER AND CRUSHER, WEIGHER AND CRUSHER-C Other Provider Active Start: March 03, 2025 Dr. Pierre Catalan DO Attending Provider Active S tart: March 03, 2025 Team Status: Inactive Member Role/Relationship Status Dates JESUS LONDON , WEIGHER AND CRUSHER-C Primary Care Provider Active Start: March 14, 2025 End: March 14, 2025 JESUS CALLAHAN WEIGHER AND CRUSHER-C Referring Provider Active Start: March 14, 2025 End: March 14, 2025 Raegan Ledezma WEIGHER AND CRUSHER, WEIGHER AND CRUSHER-C Attending Provider Active Start: March 14, 2025 End: March 14, 2025 Team Status: Inactive Member Role/Relationship Status Dates JESUS BENAVIDEZLER , WEIGHER AND CRUSHER-C Primary Care Provider Active Start: April 07, 2025 End: April 07, 2025 Raegan Ledezma WEIGHER AND CRUSHER, WEIGHER AND CRUSHER-C Attending Provider Active Start: April 07, 2025 End: April 07, 2025 Raegan Ledezma WEIGHER AND CRUSHER, WEIGHER AND CRUSHER-C Referring Provider Active Start: April 07, 2025 End: April 07, 2025 Team Status: Inactive Member Role/Relationship Status Dates JESUS LONDON , WEIGHER AND CRUSHER-C Primary Care Provider Active Start: April 07, [...] Active Member Role/Relationship Status Dates JESUS CALLAHAN WEIGHER AND CRUSHER-C Primary Care Provider Active Start: April 07, [...] Active Member Role/Relationship Status D[facility] Provider Active Start: April 08, [...] St art: April 08, 2025 Dr. Ray Snaders MD Other Provider Active St art: April [...] Active St art: April 09, 2025 Dr. iMchelle Do MD Other Provider Active St art: [...] Member Role/Relationship Status Dates JESUS LONDON , WEIGHER AND CRUSHER-C Primary Care Provider Active Start: April 10, [...] Member Role/Relationship Status Dates JESUS CARMENETLER , WEIGHER AND CRUSHER-C Primary Care Provider Active Start: April 19, 2025 End: April 19, 2025 JESUS LONDON , WEIGHER AND CRUSHER-C Referring Provider Active Start: April 19, 2025 End: April 19, 2025 Raegan Ledezma WEIGHER AND CRUSHER, WEIGHER AND CRUSHER-C Attending Provider Active Start: April 19, 2025 End: April 19, 2025 Team Status: Inactive Member Role/Relationship Status Dates JESUS LONDON , WEIGHER AND CRUSHER-C Primary Care Provider Active Start: April 25, 2025 End: April 25, 2025 Raegan Ledezma WEIGHER AND CRUSHER, WEIGHER AND CRUSHER-C Attending Provider Active Start: April 25, 2025 End: April 25, 2025 Raegan Ledezma WEIGHER AND CRUSHER, WEIGHER AND CRUSHER-C Referring Provider Active Start: April 25, 2025 End: April 25, 2025 Team Status: Inactive Member Role/Relationship Status Dates JESUS CARMENETLER WEIGHER AND CRUSHER-C Primary Care Provider Active Start: May 01, 2025 End: May 01, 2025 Dr. Aydne Bosch MD Attending Provider Active S tart: May 01, 2025 End: May 01, 2025 Raegan Ledezma WEIGHER AND CRUSHER, WEIGHER AND CRUSHER-C Referring Provider Active Start: May 01, 2025 End: May 01, 2025 Team Status: Inactive Member Role/Relationship Status Dates JESUS LONDON , WEIGHER AND CRUSHER-C Primary Care Provider Active Start: May 29, 2025 End: May 29, 2025 JESUS LONDON , WEIGHER AND CRUSHER-C Referring Provider Active Start: May 29, 2025 End: May 29, 2025 Dr. Ayden Bosch MD Attending Provider Active S tart: May 29, 2025 End: May 29, 2025 Team Status: Inactive Member Role/Relationship Status Dates JESUS LONDON , WEIGHER AND CRUSHER-C Primary Care Provider Active Start: May 31, 2025 End: May 31, 2025 Dr. Ray Sanders MD Attending Provider Active Start: May 31, 2025 End: May 31, 2025 Dr. Ayden Bosch MD Referring Provider Active S tart: May 31, 2025 End: May 31, 2025 Team Status: Inactive Member Role/Relationship Status Dates JESUS LONDON , WEIGHER AND CRUSHER-C Primary Care Provider Active Start: June 05, 2025 End: June 05, 2025 Dr. Ray Sanders MD Attending Provider Active Start: June 05, 2025 End: June 05, 2025 Dr. Ray Sanders MD Referring Provider Active Start: June 05, 2025 End: June 05, 2025 Team Status: Active Member Role/Relationship Status Dates JESUS LONDON , WEIGHER AND CRUSHER-C Primary Care Provider Active Start: June 05, 2025 Dr. Ray Sanders MD Attending Provider Active Start: June 05, 2025 Dr. Ray Sanders MD Referring Provider Active Start: June 05, 2025 Dr. Ray Sanders MD Other Provider Active St art: June 05, 2025 Team Status: Inactive Member Role/Relationship Status Dates JESUS LONDON , WEIGHER AND CRUSHER-C Primary Care Provider Active Start: June 12, 2025 End: June 12, 2025 JESUS LONDON , WEIGHER AND CRUSHER-C Referring Provider Active Start: June 12, 2025 End: June 12, 2025 Camille Emanuel WEIGHER AND CRUSHER, WEIGHER AND CRUSHER-C Attending Provider Active Start: June 12, 2025 End: June 12, 2025 Team Status: Inactive Member Role/Relationship Status Dates JESUS LONDON , WEIGHER AND CRUSHER-C Primary Care Provider Active Start: June 14, 2025 End: June 14, 2025 JESUS LONDON , WEIGHER AND CRUSHER-C Referring Provider Active Start: June 14, 2025 End: June 14, 2025 Dr. Ayden Bosch MD Attending Provider Active S tart: June 14, 2025 End: June 14, 2025 Team Status: Active Member Role/Relationship Status Dates JESUS LONDON , WEIGHER AND CRUSHER-C Primary Care Provider Active Start: June 29, 2025 Dr. Ayden Bosch MD Attending Provider Active S tart: June 29, 2025 Dr. Ayden Bosch MD Referring Provider Active S tart: June 29, 2025 Team Status: Inactive Member Role/Relationship Status Dates JESUS LONDON , WEIGHER AND CRUSHER-C Primary Care Provider Active Start: June 29, 2025 End: June 29, 2025 JESUS LONDON , WEIGHER AND CRUSHER-C Referring Provider Active Start: June 29, 2025 End: June 29, 2025 Camille Emanuel WEIGHER AND CRUSHER, WEIGHER AND CRUSHER-C Attending Provider Active Start: June 29, 2025 End: June 29, 2025 Team Status: Inactive Member Role/Relationship Status Dates JESUS LONDON , WEIGHER AND CRUSHER-C Primary Care Provider Active Start: March 14, 2025 End: March 14, 2025 JESUS LONDON , WEIGHER AND CRUSHER-C Referring Provider Active Start: March 14, 2025 End: March 14, 2025 Raegan Ledezma WEIGHER AND CRUSHER, WEIGHER AND CRUSHER-C Attending Provider Active Start: March 14, 2025 End: March 14, 2025 Team Status: Inactive Member Role/Relationship Status Dates JESUS LONDON , WEIGHER AND CRUSHER-C Primary Care Provider Active Start: April 07, 2025 End: April 07, 2025 Raegan Ledezma WEIGHER AND CRUSHER, WEIGHER AND CRUSHER-C Attending Provider Active Start: April 07, 2025 End: April 07, 2025 Raegan Ledezma WEIGHER AND CRUSHER, WEIGHER AND CRUSHER-C Referring Provider Active Start: April 07, 2025 End: April 07, 2025 Team Status: Inactive Member Role/Relationship Status Dates JESUS LONDON , WEIGHER AND CRUSHER-C Primary Care Provider Active Start: April 07, 2025 End: April 10, 2025 Dr. Stefan Shulzt MD Emergency Provider Active Start: April 07, [...] Member Role/Relationship Status Dates JESUS LONDON , WEIGHER AND CRUSHER-C Primary Care Provider Active Start: April 19, 2025 End: April 19, 2025 JESUS CALLAHAN , WEIGHER AND CRUSHER-C Referring Provider Active Start: April 19, 2025 End: April 19, 2025 Raegan Ledezma WEIGHER AND CRUSHER, WEIGHER AND CRUSHER-C Attending Provider Active Start: April 19, 2025 End: April 19, 2025 Team Status: Inactive Member Role/Relationship Status Dates JESUS CALLAHAN , WEIGHER AND CRUSHER-C Primary Care Provider Active Start: April 25, 2025 End: April 25, 2025 Raegan Ledezma WEIGHER AND CRUSHER, WEIGHER AND CRUSHER-C Attending Provider Active Start: April 25, 2025 End: April 25, 2025 Raegan Ledezma WEIGHER AND CRUSHER, WEIGHER AND CRUSHER-C Referring Provider Active Start: April 25, 2025 End: April 25, 2025 Team Status: Inactive Member Role/Relationship Status Dates JESUS LONDON , WEIGHER AND CRUSHER-C Primary Care Provider Active Start: May 01, 2025 End: May 01, 2025 Dr. Ayden Bosch MD Attending Provider Active S tart: May 01, 2025 End: May 01, 2025 Raegan Ledezma WEIGHER AND CRUSHER, WEIGHER AND CRUSHER-C Referring Provider Active Start: May 01, 2025 End: May 01, 2025 Team Status: Inactive Member Role/Relationship Status Dates JESUS LONDON , WEIGHER AND CRUSHER-C Primary Care Provider Active Start: May 29, 2025 End: May 29, 2025 JESUS LONDON , WEIGHER AND CRUSHER-C Referring Provider Active Start: May 29, 2025 End: May 29, 2025 Dr. Ayden Bosch MD Attending Provider Active S tart: May 29, 2025 End: May 29, 2025 Team Status: Inactive Member Role/Relationship Status Dates JESUS LONDON , WEIGHER AND CRUSHER-C Primary Care Provider Active Start: May 31, 2025 End: May 31, 2025 Dr. Ray Sanders MD Attending Provider Active Start: May 31, 2025 End: May 31, 2025 Dr. Ayden Bosch MD Referring Provider Active S tart: May 31, 2025 End: May 31, 2025 Team Status: Inactive Member Role/Relationship Status Dates JESUS LONDON , WEIGHER AND CRUSHER-C Primary Care Provider Active Start: June 05, 2025 End: June 05, 2025 Dr. Ray Sanders MD Attending Provider Active Start: June 05, 2025 End: June 05, 2025 Dr. Ray Sanders MD Referring Provider Active Start: June 05, 2025 End: June 05, 2025 Team Status: Active Member Role/Relationship Status Dates JESUS LONDON , WEIGHER AND CRUSHER-C Primary Care Provider Active Start: June 05, 2025 Dr. Ray Sanders MD Attending Provider Active Start: June 05, 2025 Dr. Ray Sanders MD Referring Provider Active Start: June 05, 2025 Dr. Ray Sanders MD Other Provider Active St art: June 05, 2025 Team Status: Inactive Member Role/Relationship Status Dates JESUS LONDON , WEIGHER AND CRUSHER-C Primary Care Provider Active Start: June 12, 2025 End: June 12, 2025 JESUS LONDON , WEIGHER AND CRUSHER-C Referring Provider Active Start: June 12, 2025 End: June 12, 2025 Camille Jenae WEIGHER AND CRUSHER, WEIGHER AND CRUSHER-C Attending Provider Active Start: June 12, 2025 End: June 12, 2025 Team Status: Inactive Member Role/Relationship Status Dates JESUS LONDON , WEIGHER AND CRUSHER-C Primary Care Provider Active Start: June 14, 2025 End: June 14, 2025 JESUS LONDON , WEIGHER AND CRUSHER-C Referring Provider Active Start: June 14, 2025 End: June 14, 2025 Dr. Ayden Bosch MD Attending Provider Active S tart: June 14, 2025 End: June 14, 2025 Team Status: Inactive Member Role/Relationship Status Dates JESUS LONDON , WEIGHER AND CRUSHER-C Primary Care Provider Active Start: June 29, 2025 End: June 29, 2025 JESUS LONDON , WEIGHER AND CRUSHER-C Referring Provider Active Start: June 29, 2025 End: June 29, 2025 Camille Emanuel WEIGHER AND CRUSHER, WEIGHER AND CRUSHER-C Attending Provider Active Start: June 29, 2025 End: June 29, 2025 Team Status: Active Member Role/Relationship Status Dates JESUS CALLAHAN , WEIGHER AND CRUSHER-C Primary Care Provider Active Start: July 05, 2025 Dr. Ayden Bosch MD Attending Provider Active S tart: July 05, 2025 Dr. Ayden Bosch MD Referring Provider Active S tart: July 05, 2025 Team Status: Inactive Member Role/Relationship Status Dates JESUS LONDON , WEIGHER AND CRUSHER-C Primary Care Provider Active Start: July 05, 2025 End: July 05, 2025 JESUS CALLAHAN , WEIGHER AND CRUSHER-C Referring Provider Active Start: July 05, 2025 End: July 05, 2025 Camille Emanuel WEIGHER AND CRUSHER, WEIGHER AND CRUSHER-C Attending Provider Active Start: July 05, 2025 End: July 05, 2025 Team Status: Inactive Member Role/Relationship Status Dates JESUS CALLAHAN , WEIGHER AND CRUSHER-C Primary Care Provider Active Start: April 07, 2025 End: April 07, 2025 Raegan Ledezma WEIGHER AND CRUSHER, WEIGHER AND CRUSHER-C Attending Provider Active Start: April 07, 2025 End: April 07, 2025 Raegan Ledezma WEIGHER AND CRUSHER, WEIGHER AND CRUSHER-C Referring Provider Active Start: April 07, 2025 End: April 07, 2025 Team Status: Inactive Member Role/Relationship Status Dates JESUS CARMENETLER , WEIGHER AND CRUSHER-C Primary Care Provider Active Start: April 07, 2025 End: April 10, 2025 Dr. Stefan Shultz MD Emergency Provider Active Start: April 07, 2025 End: April 10, 2025 Dr. Michelle Do MD Admit Provider Active St art: April 07, 2025 End: April 10, 2025 Dr. Michlele Do MD Other Provider Active St art: [...] Active Start: April 09, 2025 Dr. Stefan Shulzt MD Emergency Provider Active Start: April 09, [...] Member Role/Relationship Status Dates JESUS LONDON , WEIGHER AND CRUSHER-C Primary Care Provider Active Start: April 19, 2025 End: April 19, 2025 JESUS LONDON , WEIGHER AND CRUSHER-C Referring Provider Active Start: April 19, 2025 End: April 19, 2025 Raegan Ledezma WEIGHER AND CRUSHER, WEIGHER AND CRUSHER-C Attending Provider Active Start: April 19, 2025 End: April 19, 2025 Team Status: Inactive Member Role/Relationship Status Dates JESUS LONDON , WEIGHER AND CRUSHER-C Primary Care Provider Active Start: April 25, 2025 End: April 25, 2025 Raegan Ledezma WEIGHER AND CRUSHER, WEIGHER AND CRUSHER-C Attending Provider Active Start: April 25, 2025 End: April 25, 2025 Raegan Ledezma WEIGHER AND CRUSHER, WEIGHER AND CRUSHER-C Referring Provider Active Start: April 25, 2025 End: April 25, 2025 Team Status: Inactive Member Role/Relationship Status Dates JESUS LONDON , WEIGHER AND CRUSHER-C Primary Care Provider Active Start: May 01, 2025 End: May 01, 2025 Dr. Ayden Bosch MD Attending Provider Active S tart: May 01, 2025 End: May 01, 2025 Raegan Ledezma WEIGHER AND CRUSHER, WEIGHER AND CRUSHER-C Referring Provider Active Start: May 01, 2025 End: May 01, 2025 Team Status: Inactive Member Role/Relationship Status Dates JESUS LONDON , WEIGHER AND CRUSHER-C Primary Care Provider Active Start: May 29, 2025 End: May 29, 2025 JESUS LONDON , WEIGHER AND CRUSHER-C Referring Provider Active Start: May 29, 2025 End: May 29, 2025 Dr. Ayden Bosch MD Attending Provider Active S tart: May 29, 2025 End: May 29, 2025 Team Status: Inactive Member Role/Relationship Status Dates JESUS LONDON , WEIGHER AND CRUSHER-C Primary Care Provider Active Start: May 31, 2025 End: May 31, 2025 Dr. Ray Sanders MD Attending Provider Active Start: May 31, 2025 End: May 31, 2025 Dr. Ayden Bosch MD Referring Provider Active S tart: May 31, 2025 End: May 31, 2025 Team Status: Inactive Member Role/Relationship Status Dates JESUS LONDON , WEIGHER AND CRUSHER-C Primary Care Provider Active Start: June 05, 2025 End: June 05, 2025 Dr. Ray Sanders MD Attending Provider Active Start: June 05, 2025 End: June 05, 2025 Dr. Ray Sanders MD Referring Provider Active Start: June 05, 2025 End: June 05, 2025 Team Status: Active Member Role/Relationship Status Dates JESUS LONDON , WEIGHER AND CRUSHER-C Primary Care Provider Active Start: June 05, 2025 Dr. Ray Sanders MD Attending Provider Active Start: June 05, 2025 Dr. Ray Sanders MD Referring Provider Active Start: June 05, 2025 Dr. Ray Sanders MD Other Provider Active St art: June 05, 2025 Team Status: Inactive Member Role/Relationship Status Dates JESUS LONDON , WEIGHER AND CRUSHER-C Primary Care Provider Active Start: June 12, 2025 End: June 12, 2025 JESUS LONDON , WEIGHER AND CRUSHER-C Referring Provider Active Start: June 12, 2025 End: June 12, 2025 Camille Emanuel WEIGHER AND CRUSHER, WEIGHER AND CRUSHER-C Attending Provider Active Start: June 12, 2025 End: June 12, 2025 Team Status: Inactive Member Role/Relationship Status Dates JESUS LONDON , WEIGHER AND CRUSHER-C Primary Care Provider Active Start: June 14, 2025 End: June 14, 2025 JESUS LONDON , WEIGHER AND CRUSHER-C Referring Provider Active Start: June 14, 2025 End: June 14, 2025 Dr. Ayden Bosch MD Attending Provider Active S tart: June 14, 2025 End: June 14, 2025 Team Status: Inactive Member Role/Relationship Status Dates JESUS LONDON , WEIGHER AND CRUSHER-C Primary Care Provider Active Start: June 29, 2025 End: June 29, 2025 JESUS LONDON , WEIGHER AND CRUSHER-C Referring Provider Active Start: June 29, 2025 End: June 29, 2025 Camille Emanuel WEIGHER AND CRUSHER, WEIGHER AND CRUSHER-C Attending Provider Active Start: June 29, 2025 End: June 29, 2025 Team Status: Inactive Member Role/Relationship Status Dates JESUS LONDON , WEIGHER AND CRUSHER-C Primary Care Provider Active Start: July 05, 2025 End: July 05, 2025 JESUS LONDON , WEIGHER AND CRUSHER-C Referring Provider Active Start: July 05, 2025 End: July 05, 2025 Camille Emanuel WEIGHER AND CRUSHER, WEIGHER AND CRUSHER-C Attending Provider Active Start: July 05, 2025 End: July 05, 2025 Team Status: Inactive Member Role/Relationship Status Dates JESUS LONDON , WEIGHER AND CRUSHER-C Primary Care Provider Active Start: July 19, 2025 End: July 19, 2025 JESUS LONDON , WEIGHER AND CRUSHER-C Referring Provider Active Start: July 19, 2025 End: July 19, 2025 Camille Emanuel WEIGHER AND CRUSHER, WEIGHER AND CRUSHER-C Attending Provider Active Start: July 19, 2025 End: July 19, 2025 Team Status: Active Member Role/Relationship Status Dates JESUS LONDON , WEIGHER AND CRUSHER-C Primary Care Provider Active Start: July 19, 2025 Dr. Ayden Bosch MD Attending Provider Active S tart: July 19, 2025 Dr. Ayden Bosch MD Referring Provider Active S tart: July 19, 2025 Team Status: Active Member Role/Relationship Status Dates JESUS LONDON , WEIGHER AND CRUSHER-C Primary care physician Active Team Status: Inactive Member Role/Relationship Status Dates JESUS LONDON , WEIGHER AND CRUSHER-C Primary care physician Active Start: April 07, 2025 End: April 07, 2025 Raegan Ledezma WEIGHER AND CRUSHER, WEIGHER AND CRUSHER-C Attending physician Active Start: April 07, 2025 End: April 07, 2025 Raegan Ledezma WEIGHER AND CRUSHER, WEIGHER AND CRUSHER-C Referring Provider Active Start: April 07, 2025 End: April 07, 2025 Team Status: Inactive Member Role/Relationship Status Dates JESUS LONDON , WEIGHER AND CRUSHER-C Primary care physician Active Start: April 07, [...] Member Role/Relationship Status Dates JESUS LONDON , WEIGHER AND CRUSHER-C Primary care physician Active Start: April 07, [...] Member Role/Relationship Status Dates JESUS CALLAHAN , WEIGHER AND CRUSHER-C Primary care physician Active Start: April 08, [...] Member Role/Relationship Status Dates JESUS CALLAHAN , WEIGHER AND CRUSHER-C Primary care physician Active Start: April 08, [...] Member Role/Relationship Status Dates JESUS CALLAHAN , WEIGHER AND CRUSHER-C Primary care physician Active Start: April 09, [...] Active Member Role/Relationship Status Dates JESUS CALLAHAN WEIGHER AND CRUSHER-C Primary care physician Active Start: April 09, [...] Active Member Role/Relationship Status Dates JESUS CALLAHAN WEIGHER AND CRUSHER-C Primary care physician Active Start: April 10, [...] Member Role/Relationship Status Dates JESUS CALLAHAN , WEIGHER AND CRUSHER-C Primary care physician Active Start: April 10, [...] Member Role/Relationship Status Dates JESUS CALLAHAN , WEIGHER AND CRUSHER-C Primary care physician Active Start: April 19, 2025 End: April 19, 2025 JESUS CALLAHAN , WEIGHER AND CRUSHER-C Referring Provider Active Start: April 19, 2025 End: April 19, 2025 Raegan Ledezma WEIGHER AND CRUSHER, WEIGHER AND CRUSHER-C Attending physician Active Start: April 19, 2025 End: April 19, 2025 Team Status: Inactive Member Role/Relationship Status Dates JESUS CALLAHAN , WEIGHER AND CRUSHER-C Primary care physician Active Start: April 25, 2025 End: April 25, 2025 Raegan Ledezma WEIGHER AND CRUSHER, WEIGHER AND CRUSHER-C Attending physician Active Start: April 25, 2025 End: April 25, 2025 Raegan Ledezma WEIGHER AND CRUSHER, WEIGHER AND CRUSHER-C Referring Provider Active Start: April 25, 2025 End: April 25, 2025 Team Status: Inactive Member Role/Relationship Status Dates JESUS CALLAHAN WEIGHER AND CRUSHER-C Primary care physician Active Start: May 01, 2025 End: May 01, 2025 Dr. Ayden Bosch MD Attending physician Active Start: May 01, 2025 End: May 01, 2025 Raegan Ledezma WEIGHER AND CRUSHER, WEIGHER AND CRUSHER-C Referring Provider Active Start: May 01, 2025 End: May 01, 2025 Team Status: Inactive Member Role/Relationship Status Dates JESUS CALLAHAN WEIGHER AND CRUSHER-C Primary care physician Active Start: May 29, 2025 End: May 29, 2025 JESUS LONDON , WEIGHER AND CRUSHER-C Referring Provider Active Start: May 29, 2025 End: May 29, 2025 Dr. Ayden Bosch MD Attending physician Active Start: May 29, 2025 End: May 29, 2025 Team Status: Inactive Member Role/Relationship Status Dates JESUS LONDON , WEIGHER AND CRUSHER-C Primary care physician Active Start: May 31, 2025 End: May 31, 2025 Dr. Ray Sanders MD Attending physician Active Start: May 31, 2025 End: May 31, 2025 Dr. Ayden Bosch MD Referring Provider Active S tart: May 31, 2025 End: May 31, 2025 Team Status: Inactive Member Role/Relationship Status Dates JESUS LONDON , WEIGHER AND CRUSHER-C Primary care physician Active Start: June 05, 2025 End: June 05, 2025 Dr. Ray Sanders MD Attending physician Active Start: June 05, 2025 End: June 05, 2025 Dr. Ray Sanders MD Referring Provider Active Start: June 05, 2025 End: June 05, 2025 Team Status: Active Member Role/Relationship Status Dates JESUS LONDON , WEIGHER AND CRUSHER-C Primary care physician Active Start: June 05, 2025 Dr. Ray Sanders MD Attending physician Active Start: June 05, 2025 Dr. Ray Sanders MD Referring Provider Active Start: June 05, 2025 Dr. Ray Sanders MD Nurse Practitioner Active Start: June 05, 2025 Team Status: Inactive Member Role/Relationship Status Dates JESUS LONDON , WEIGHER AND CRUSHER-C Primary care physician Active Start: June 12, 2025 End: June 12, 2025 JESUS LONDON , WEIGHER AND CRUSHER-C Referring Provider Active Start: June 12, 2025 End: June 12, 2025 Camille Emanuel NP, WEIGHER AND CRUSHER-C Attending physician Active Start: June 12, 2025 End: June 12, 2025 Team Status: Inactive Member Role/Relationship Status Dates JESUS LONDON , WEIGHER AND CRUSHER-C Primary care physician Active Start: June 14, 2025 End: June 14, 2025 JESUS LONDON , WEIGHER AND CRUSHER-C Referring Provider Active Start: June 14, 2025 End: June 14, 2025 Dr. Ayden Bosch MD Attending physician Active Start: June 14, 2025 End: June 14, 2025 Team Status: Inactive Member Role/Relationship Status Dates JESUS LONDON , WEIGHER AND CRUSHER-C Primary care physician Active Start: June 29, 2025 End: June 29, 2025 JESUS LONDON , WEIGHER AND CRUSHER-C Referring Provider Active Start: June 29, 2025 End: June 29, 2025 Camille Emanuel NP, WEIGHER AND CRUSHER-C Attending physician Active Start: June 29, 2025 End: June 29, 2025 Team Status: Inactive Member Role/Relationship Status Dates JESUS CALLAHAN WEIGHER AND CRUSHER-C Primary care physician Active Start: July 05, 2025 End: July 05, 2025 JESUS CALLAHAN WEIGHER AND CRUSHER-C Referring Provider Active Start: July 05, 2025 End: July 05, 2025 Camille Emanuel NP, WEIGHER AND CRUSHER-C Attending physician Active Start: July 05, 2025 End: July 05, 2025 Team Status: Inactive Member Role/Relationship Status Dates JESUS CALLAHAN WEIGHER AND CRUSHER-C Primary care physician Active Start: July 19, 2025 End: July 19, 2025 JESUS CALLAHAN , WEIGHER AND CRUSHER-C Referring Provider Active Start: July 19, 2025 End: July 19, 2025 Camille Emanuel NP, WEIGHER AND CRUSHER-C Attending physician Active Start: July 19, 2025 End: July 19, 2025 Team Status: Active Member Role/Relationship Status Dates JESUS CALLAHAN WEIGHER AND CRUSHER-C Primary care physician Active Start: July 26, 2025 Dr. Ayden Bosch MD Attending physician Active Start: July 26, 2025 Dr. Ayden Bosch MD Referring Provider Active S tart: July 26, 2025 Team Status: Inactive Member Role/Relationship Status Dates JESUS CALLAHAN WEIGHER AND CRUSHER-C Primary care physician Active Start: July 26, 2025 End: July 26, 2025 JESUS CALLAHAN WEIGHER AND CRUSHER-C Referring Provider Active Start: July 26, 2025 [...] section and content) DATE CREATED AUTHOR 06/22/2024 [facility] ([place]) DATE CREATED AUTHOR AUTHOR'S ORGANIZ ATION 04/17/2025 [facility] DATE CREATED AUTHOR AUTHOR'S ORGANIZ ATION 05/17/2025 [facility] DATE CREATED AUTHOR AUTHOR'S LEELEE ATION 07/29/2025 [facility] FOR RECORDS PERTAINING TO PATIENTS WHO ARE [...] BE BASED ON THE PRIMARY CLINICAL RECORDS. [employer] provides no warranty or guarantee of the accuracy or completeness of information in this document.
--- NOTE | 2025-07-30 18:09 | ED.RN ---
THIS NURSE DELIVERED PT TO THE ROLL UP GUIDER OPERATOR APPROX 1803, PT HAD AMIO INFUSING IN THE PERIPHERAL LINE 18 RFA, 0.9% NS RUNNING IN THE PORT ACCESSED IN THE UPPER LEFT CHEST. ROLL UP GUIDER OPERATOR ADVISED OF MEDS GIVEN AND CONTINUED INFUSIONS.
[2025-07-30 18:15] LABS: Pro- Brain NATRIURETIC PEPTIDE 5135 pg/mL (<=900)
--- OUTSIDE RECORDS SUMMARY | 2025-07-30 18:23 | XMS RPT_ITS | CCD ---
Author Organization [facility] Care Team Providers Care Assistant Front Office Manager Name Role Phone SANFORD ROD FINISHER - PROGRAM AND RESEARCH COORDINATOR, WENDY Galan Primary Care Phys ician LONDON ROD FINISHER-ROSA, JESUS Primary Care Physician Care Physician, No Primary Primary Care Provider Unavailable Care Physician, No Primary Referring Provider Un available Dr. Pierre Catalan Attending Provider [phone] FRIEDA CALLAHAN JESUS Primary Care Provider Dr. Pierre Catalan Referring Provider Dr. Pierre Catalan Other Provider FRIEDA Chavez Attending Provider Dr. James Lewis Emergency Provider Dr. Emma Wilson Attending Provider Dr. Emma Wilson Admit Provider Dr. Emma Wilson Other Provider Dr. Caden Lockwood Attending Provider Dr. Caden Lockwood Other Provider Dr. Emma Wilson Referring Provider Dr. Caden Lockwood Referring Provider [phone] Care Physician, No Primary Primary Care Provider Unavailable Care Physician, No Primary Referring Provider Un available Dr. Pierre Catalan Attending Provider [phone] FRIEDA CALLAHAN JESUS Primary Care Provider [phone] Dr. Pierre Catalan Referring Provider [phone] Dr. Pierre Catalan Other Provider Kathy, GRADER OPERATOR-C Sharyn Mercedes Attending Provider Dr. James Lewis Emergency Provider Dr. Emma Wilson Attending Provider Dr. Emma Wilson Admit Provider Dr. Emma Wilson Referring Provider Dr. Emma Wilson Other Provider Dr. Caden Lockwood Attending Provider Dr. Caden Lockwood Other Provider Dr. Caden Lockwood Referring Provider Dr. Justin Farah Attending Provider LONDON ROD FINISHER-PROGRAM AND RESEARCH COORDINATOR, JESUS Attending Unavai lable LONDON ROD FINISHER-PROGRAM AND RESEARCH COORDINATOR, JESUS Primary Care Unavai lable LONDON ROD FINISHER-PROGRAM AND RESEARCH COORDINATOR, JESUS Attending Unavai lable LONDON ROD FINISHER-PROGRAM AND RESEARCH COORDINATOR, JESUS Primary Care Unavai lable LONDON ROD FINISHER-PROGRAM AND RESEARCH COORDINATOR, JESUS Attending Unavai lable LONDON ROD FINISHER-PROGRAM AND RESEARCH COORDINATOR, JESUS Primary Care Unavai lable LONDON ROD FINISHER-PROGRAM AND RESEARCH COORDINATOR, JESUS Attending Unavai lable LONDON ROD FINISHER-PROGRAM AND RESEARCH COORDINATOR, JESUS Primary Care Unavai lable LONDON GRADER OPERATOR-C, JESUS Primary Care Provider Dr. Malcolm Christy DO Emergency Provider Dr. Goldy Patino DO Admit Provider Unavail able de Dr. Goldy Law DO Referring Provider Unav ailable de Dr. Goldy Law DO Other Provider Unavail able Dr. Janak Ulloa MD Attending Provider Dr. Janak Ulloa MD Other Provider Dr. Pierre Catalan DO Attending Provider Dr. Malcolm Torres MD Attending Provider Dr. Freddy Mayen MD Attending Provider LONDON GRADER OPERATOR-C, JESUS Referring Provider Radha PA, Marjorie Attending Provider [phone] Radha PA, Marjorie Referring Provider Ledezma GRADER OPERATOR-C, Raegan Attending Provider Ledezma GRADER OPERATOR-C, Raegan Referring Provider LONDON GRADER OPERATOR-C, JESUS Primary Care Provider Radha PA, Mrajorie Attending Provider [phone] Radha PA, Marjorie Referring Provider Melissa STONE, Dr. Fowler Attending Provider LONDON GRADER OPERATOR-C, JESUS Referring Provider Brisa GRADER OPERATOR-C, Raegan Other Provider Hossein GUY, Dr. Jay Attending Provider Carrington STONE, Dr. Aviles Emergency Provider LONDON GRADER OPERATOR-C, JESUS Primary Care Provider Melissa STONE, Dr. Fowler Attending Provider [phone] Carrington STONE, Dr. Aviles Emergency Provider Hi STONE, Dr. Michelle Dunn Admit Provider Hi STONE, Dr. Michelle Dunn Other Provider Marilyn STONE, Dr. Ray Mercedes Other Provider [phone] Malcolm Hanson DO Attending Provider Satish STONE, Dr. Vera Other Provider Marilyn STONE, Dr. Ray Mercedes Attending Provider Satish STONE, Dr. Vera Attending Provider Dr. Malcolm Hanosn DO Other Provider Cesar PA-C, Padma Attending Provider LONDON ROD FINISHER-PROGRAM AND RESEARCH COORDINATOR, JESUS Attending Unalisai priyanka CARMENETLER ROD FINISHER-PROGRAM AND RESEARCH COORDINATOR, JESUS Primary Care Unavai lable LONDON GRADER OPERATOR-C, JESUS Primary Care Provider LONDON GRADER OPERATOR-C, JESUS Referring Provider Dr. Malcolm Hanson DO Referring Provider Danitza STONE, Dr. Hensley Attending Provider LONDON GRADER OPERATOR-C, JESUS Primary Care Provider LONDON GRADER OPERATOR-C, JESUS Referring Provider Dr. Ayden Bosch MD Referring Provider LONDON GRADER OPERATOR-C, JESUS Primary Care Provider [phone] Ledezma GRADER OPERATOR-C, Raegan Attending Provider LONDON GRADER OPERATOR-C, JESUS Referring Provider Dr. Ray Sanders MD Referring Provider Danitza STONE, Dr. Hensley Referring Provider Jenae GRADER OPERATOR-C, Camille Attending Provider LONDON GRADER OPERATOR-C, JESUS Primary Care Provider Ledezma GRADER OPERATOR-C, Raegan Attending Provider Ledezma GRADER OPERATOR-C, Raegan Referring Provider LONDON GRADER OPERATOR-C, JESUS Primary Care Provider Ledezma GRADER OPERATOR-C, Raegan Attending Provider Ledezma GRADER OPERATOR-C, Raegan Referring Provider LONDON GRADER OPERATOR-C, JESUS Primary Care Provider Ledezma GRADER OPERATOR-C, Raegan Attending Provider LONDON GRADER OPERATOR-C, JESUS Referring Provider LONDON GRADER OPERATOR-C, JESUS Primary Care Physician Ledezma GRADER OPERATOR-C, Raegan Attending Physician Carrington STONE, Dr. Aviles Emergency Department Phys ician Hi STONE, Dr. Michelle Dunn Admitting Physician [phone] Hi STONE, Dr. Michelle Dunn Nurse Practitioner [...] Unavailable LONDON, JESUS Primary Care Unavailable Brisa GRADER OPERATOR, Raegan Attending Unavailable Brisa GRADER OPERATOR, Raegan Referring Unavailable LONDON, JESUS Primary Care Unavailable Ledezma GRADER OPERATOR, Raegan Attending Unavailable Ledezma GRADER OPERATOR, Raegan Referring Unavailable LONDON, JESUS Primary Care [...] Referring Unavailable LONDON, JESUS Primary Care Unavailable OLNDON, JESUS Attending Unavailable Lenny Franks Attending Unavailable LONDON, JESUS Primary Care Unavailable LONDON, JESUS Referring Unavailable Garcia, Marjorie Referring Unavailable Garcia, Marjorie Attending Unavailable LONDON, JESUS Primary Care Unavailable Ray Sanders Attending Unavailable Ledezma GRADER OPERATOR, Raegan Attending Unavailable LONDON, JESUS Referring Unavailable [...] Care Unavailable AndMinisterio borrero Attending Unavailable Ledezma GRADER OPERATOR, Raegan Attending Unavailable Ledezma GRADER OPERATOR, Raegan Referring Unavailable LONDON, JESUS Primary Care [...] Unavailable LONDON, JESUS Primary Care Unavailable Ledezma GRADER OPERATOR, Raegan Referring Unavailable Ledezma GRADER OPERATOR, Raegan Attending Unavailable LONDON, JESUS Primary Care Unavailable Freddy Mayen Attending Unavailable Melissa, Malcolm Attending Unavailable LONDON, JESUS Primary Care Unavailable Pierre Catalan Attending Unavailable Lenny Franks Attending Unavailable LONDON, JESUS Referring Unavailable LONDON, JESUS Primary Care Unavailable Ray Sanders Attending Unavailable Wanleslie, Ray Mercedes Referring Unavailable [employer] Consulting Unavailable LONDON, JESUS Primary Care Unavailable Ledezma GRADER OPERATOR, Raegan Referring Unavailable Ledezma GRADER OPERATOR, Raegan Consulting Unavailable Pierre Catalan Attending Unavailable LONDON, JESUS Primary Care Unavailable Janak Ulloa Attending Unavailable Malcolm Hanson Attending Unavailable LONDON, JESUS Primary Care Unavailable Jenae GRADER OPERATOR, Camille Attending Unavailable LONDON, JESUS Referring Unavailable LONDON, JESUS Primary Care Unavailable Jenae GRADER OPERATOR, Camille Attending Unavailable LONDON, JESUS Referring Unavailable Tie Siding, Malcolm Attending Unavailable LONDON, JESUS Referring Unavailable LONDON, JESUS Primary Care Unavailable Ledezma GRADER OPERATOR, Raegan Attending Unavailable LONDON, JESUS Referring Unavailable LONDON, JESUS Primary Care Unavailable PrahAyden Attending Unavailable LONDON, JESUS Primary Care Unavailable LONDON, JESUS Referring Unavailable LONDON, JESUS Primary Care Unavailable Jenae GRADER OPERATOR, Camille Attending Unavailable LONDON, JESUS Referring Unavailable Prah, Ayden Attending Unavailable LONDON, JESUS Primary Care Unavailable LONDON, JESUS Referring Unavailable LONDON, JESUS Primary Care Unavailable Jenae GRADER OPERATOR, Camille Attending Unavailable LONDON, JESUS Referring Unavailable Ray Sanders Attending Unavailable LONDON, JESUS Primary Care Unavailable PrahAyden Referring Unavailable Prah, Ayden Attending Unavailable LONDON, JESUS Primary Care Unavailable LONDON, JESUS Referring Unavailable Prah, Ayden Attending Unavailable LONDON, JESUS Primary Care Unavailable Brisa GRADER OPERATOR, Raegan Referring Unavailable LONDON, JESUS Primary Care Unavailable Brisa GRADER OPERATOR, Raegan Attending Unavailable LONDON, JESUS Referring Unavailable Ray Sanders Consulting Unavailable Hi Michelle Mona Admitting Unavailable Malcolm Hanson Attending Unavailable LONDON, JESUS Primary Care Unavailable Michelle Do Mona Consulting Unavailable Chuy Covarrubias Consulting Unavailable Allergies Allergy Classification Reported Allergen(s) Allergy Type Date of Onset Reaction(s) Facility (16 sources) hydroCHLOROthiazide Drug Allergy 5 [facility] (1 source) hydroCHLOROthiazide Drug Allergy 5 Repository Medications Current Medications Medication Drug Class(es) Dates Sig (Normalized) Sig (Original) [id number] 200 actuat albuterol 0.09 mg/actuat metered dose [...] qDay, # 90 tab(s), 2 Refill(s), Pharmacy: [facility], Hypertension, 166, cm, 03/08/21 13:32:00 EDT, [...] lobe, left bronchus or lung polymyxin b [id number] unt/ml / trimethoprim 1 mg/ml ophthalmic solution [...] qDay, # 30 cap(s), 0 Refill(s), Pharmacy: [facility], BPH without urinary obstruction, 166, cm, 11/25/23 9:57:00 EST, Height, kg, 11/25/23 9:57:00 EST, Dosing Weight Start Date: 11/25/23 Stop Date: 12/25/23 Status: Ordered Start: 09-23-2021 End: 11-22-2021 tamsulosin 0.4 mg oral capsu le Dose : 0.4 mg = 1 cap(s), Oral, qDay, # 30 cap(s), 1 Refill(s), Pharmacy: [facility], BPH without urinary obstruction, 166, cm, [...] inch, # 3.5 gram(s), 0 Refill(s), Pharmacy: [facility], Hordeolum of left eye, 166, cm, [...] Daily, # 30 tab(s), 0 Refill(s), Pharmacy: [facility], Hypertension, 166, cm, 11/25/23 9:57:00 EST, Height, kg, 11/25/23 9:57:00 EST, Dosing Weight Start Date: 11/25/23 Stop Date: 12/25/23 Status: Ordered Start: 09-23-2021 End: 11-22-2021 take 1 tablet by mouth once daily hydrochlorothiazide-irbesartan 12.5 mg-1 50 mg oral tablet Dose = 1 tab(s), Oral, Daily, # 30 tab(s), 1 Refill(s), Pharmacy: [facility], Hypertension, 166, cm, 09/23/21 8:10:00 EST, [...] IV. PDL1 11%, EGFR, ALK, BRAF, Her2, SETVE, ROS1, MET, RET are negative.PET/CT on 04/25/2025 [...] Auto (Unsp spec) [#/Vol] 1.36 10*3/uL 0.83-4.51 Absolute neutrophil countOrd ered By: Ayden Bosch on 07-26-2025 Neutrophils (Bld) [#/Vol] 16.3 10*3/uL High 2.0-7.7 Anion gap in Serum or Plasma Ordered By: Ayden Bosch on 07-26-2025 Anion gap [Moles/Vol] 12 mmol/L 5-15 [facility] Automated blood erythrocyte countOrdered By: Ayden Bosch on 07-26-2025 RBC (Bld) [#/Vol] 3.87 10*6/uL Low 4.6-6.2 [facility] Comment on above: Performed By: #### L 501.9520, L100.0100, L501.2300, L500.4050 #### [id number] [place], [address] Automated blood hematocrit ( percentage)Ordered By: Ayden Bosch on 07-26-2025 Hematocrit (Bld) [Volume fraction] 34.9 % Low 40-54 Comment on above: Performed By: #### L 501.9520, L100.0100, L501.2300, L500.4050 #### [id number] [facility] [place], [address] Automated lymphocyte count a s percentage of total leukocytesOrdered By: Ayden Bosch on 07-26-2025 Lymphocytes/100 WBC Auto (Unsp spec) 7.0 % Low 19-41 BUN/creatinine ratioOrdered By: Ayden Bosch on 07-26-2025 Urea nitrogen/Creatinine [Mass ratio] 19.8 mg/mg 10-20 Basophil percentageOrdered B y: Ayden Bosch on 07-26-2025 Basophils/100 WBC (Bld) 0.4 % Normal 0-1 [facility] Comment on above: Performed By: #### L 501.9520, L100.0100, L501.2300, L500.4050 #### [id number] [place], [address] Bilirubin, totalOrdered By: Ayden Bosch on 07-26-2025 Bilirubin [Mass/Vol] 0.29 mg/dL Normal 0.00-1.30 [facility] Comment on above: Performed By: #### L 501.9520, L100.0100, L501.2300, L500.4050 #### [id number] [place], [address] CBC W/Diff, Automatedon 07-10 Absolute Lymph 1.36 X10 3/uL Normal 0.83-4.51 Comment on above: Performed By: #### L 501.9520, L100.0100, L501.2300, L500.4050 #### [id number] [place], [address] Absolute Neut 16.3 X10 3/uL High 2.0-7.7 Comment on above: Performed By: #### L 501.9520, L100.0100, L501.2300, L500.4050 #### [id number] [place], [address] IG% 1.900 High 0.0-0.9 Comment on above: Result Comment: IG% - Immature Granulocytes (promyelocytes, myelocytes andmetamyelocytes) > 1% indicates that a LEFT SHIFT is Present. Performed By: #### L 501.9520, L100.0100, L501.2300, L500.4050 #### [id number] [place], [address] Lymphocytes/100 WBC (Bld) 7.0 % Low 19-41 Comment on above: Performed By: #### L 501.9520, L100.0100, L501.2300, L500.4050 #### [id number] [place], [address] Nucleated RBC (Bld) [#/Vol] 0 10*3/uL Normal 0-5 Comment on above: Performed By: #### L 501.9520, L100.0100, L501.2300, L500.4050 #### [id number] [place], [address] RDW SD 48.9 fl High 35.1-43.9 Comment on above: Performed By: #### L 501.9520, L100.0100, L501.2300, L500.4050 #### [id number] [place], [address] Carbon dioxide, total [Moles /volume] in Central venous bloodOrdered By: Ayden Bosch on 07-26-2025 CO2 [Moles/Vol] 21.9 mmol/L Normal 21.0-32.0 Comment on above: Performed By: #### L 501.9520, L100.0100, L501.2300, L500.4050 #### [id number] [place], [address] Chloride assayOrdered By: Terra Bosch on 07-26-2025 Chloride [Moles/Vol] 99 mmol/L Normal 98-108 [facility] Comment on above: Performed By: #### L 501.9520, L100.0100, L501.2300, L500.4050 #### [id number] [place], [address] Comprehensive Metabolic Prof janet 07-26-2025 ALK PHOS 151 U/L High 40-129 Comment on above: Performed By: #### L 501.9520, L100.0100, L501.2300, L500.4050 #### [id number] [place], [address] BUN/CRE 19.8 RATIO Normal 10-20 Comment on above: Performed By: #### L 501.9520, L100.0100, L501.2300, L500.4050 #### [id number] [place], [address] ECRCL 57.88 ml/min Normal 50-250 Comment on above: Performed By: #### L 501.9520, L100.0100, L501.2300, L500.4050 #### [id number] [place], [address] GAP 12 Normal 5-15 Comment on above: Performed By: #### L 501.9520, L100.0100, L501.2300, L500.4050 #### [id number] [place], [address] Potassium [Moles/Vol] 4.1 mmol/L Normal 3.3-5.1 [facility] Comment on above: Performed By: #### L 501.9520, L100.0100, L501.2300, L500.4050 #### [id number] [place], [address] T PROT 7.2 g/dL Normal 5.9-8.4 Comment on above: Performed By: #### L 501.9520, L100.0100, L501.2300, L500.4050 #### [id number] [place], [address] Comprehensive Metabolic Prof ilOrdered By: Ayden Bosch on 07-26-2025 AST [Catalytic activity/Vol] 30 U/L Normal <=37 Comment on above: Performed By: #### L 501.9520, L100.0100, L501.2300, L500.4050 #### [id number] [place], [address] Eosinophil percentageOrdered By: Ayden Bosch on 07-26-2025 Eosinophils/100 WBC (Bld) 0.0 % Normal 0-5 Comment on above: Performed By: #### L 501.9520, L100.0100, L501.2300, L500.4050 #### [id number] [place], [address] Erythrocyte distribution wid th ratioOrdered By: Ayden Bosch on 07-26-2025 Erythrocyte distribution width (RBC) [Ratio] 15.1 % High 11.6-14.6 Comment on above: Performed By: #### L 501.9520, L100.0100, L501.2300, L500.4050 #### [id number] [place], [address] Erythrocyte distribution wid th standard deviationOrdered By: Ayden Bosch on 07-26-2025 Erythrocyte distribution width (RBC) [Ratio] 48.9 fl High 35.1-43.9 Glomerular filtration rate ( GFR) estimation/1.73 sq m using serum, plasma, or whole bOrdered By: Ayden Bosch on 07-26-2025 GFR/1.73 sq M.predicted among non-blacks MDRD (S/P/Bld) [Vol rate/Area] 104 mL/min/{1.73_m2} Normal >60 [facility] Comment on above: mL/min/1.73m2 CKD-EP I Creatinine Equation (2020) Result Comment: mL/m in/1.73m2 CKD-EPI Creatinine Equation (2020) Performed By: #### L 501.9520, L100.0100, L501.2300, L500.4050 #### [id number] [place], [address] Hemoglobin measurementOrdere d By: Ayden Bosch on 07-26-2025 Hemoglobin (Bld) [Mass/Vol] 12.2 g/dL Low 13.0-16. 5 Comment on above: Performed By: #### L 501.9520, L100.0100, L501.2300, L500.4050 #### [id number] [place], [address] Immature granulocytes/100 WB C Auto (Bld)Ordered By: Ayden Bosch on 07-26-2025 Immature granulocytes/100 WBC (Bld) 1.900 % High 0.0-0.9 Comment on above: IG% - Immature Granu locytes (promyelocytes, myelocytes and metamyelocytes) > 1% indicates that a LEFT SHIFT is Present. MCV (mean corpuscular volume ) determinationOrdered By: Ayden Bosch on 07-26-2025 MCV (RBC) [Entitic vol] 90.2 fL Normal 80-94 [facility] Comment on above: Performed By: #### L 501.9520, L100.0100, L501.2300, L500.4050 #### [id number] [place], [address] Mean corpuscular hemoglobin (MCH) determinationOrdered By: Ayden Bosch on 07-26-2025 MCH (RBC) [Entitic mass] 31.5 pg Normal 27.0-32.0 Comment on above: Performed By: #### L 501.9520, L100.0100, L501.2300, L500.4050 #### [id number] [place], [address] Mean corpuscular hemoglobin concentration (MCHC) determinationOrdered By: Ayden Bosch on 07-26-2025 MCHC (RBC) [Mass/Vol] 35.0 g/dL Normal 32-36 [facility] Comment on above: Performed By: #### L 501.9520, L100.0100, L501.2300, L500.4050 #### [id number] [place], [address] Mean platelet volume determi nationOrdered By: Ayden Bosch on 07-26-2025 Platelet mean volume (Bld) [Entitic vol] 8.9 fL Normal 6.2-12.0 Comment on above: Performed By: #### L 501.9520, L100.0100, L501.2300, L500.4050 #### [id number] [place], [address] Monocyte percentageOrdered B y: Ayden Bosch on 07-26-2025 Monocytes/100 WBC (Bld) 6.9 % Normal 0-10 [facility] Comment on above: Performed By: #### L 501.9520, L100.0100, L501.2300, L500.4050 #### [id number] [place], [address] Neutrophil percentageOrdered By: Ayden Bosch on 07-26-2025 Neutrophils/100 WBC (Bld) 83.8 % High 47-70 Comment on above: Performed By: #### L 501.9520, L100.0100, L501.2300, L500.4050 #### [id number] [place], [address] Nucleated red blood cell per centageOrdered By: Ayden Bosch on 07-26-2025 Nucleated RBC/100 WBC (Bld) [Ratio] 0 % 0-5 Oncology Visit Reporton 07-10 Oncology Visit Report Normal [facility] Phosphoruson 07-26-2025 Phosphate [Mass/Vol] 3.5 mg/dL Normal 2.7-4.5 [facility] Comment on above: Performed By: #### L 501.9520, L100.0100, L501.2300, L500.4050 #### [id number] [place], [address] Platelet countOrdered By: Terra Bosch on 07-26-2025 Platelets (Bld) [#/Vol] 555 10*3/uL High 150-450 Comment on above: Performed By: #### L 501.9520, L100.0100, L501.2300, L500.4050 #### [id number] [place], [address] Potassium measurement (mass/ volume)Ordered By: Ayden Bosch on 07-26-2025 Potassium (Unsp spec) [Mass/Vol] 4.1 mmol/L 3.3-5.1 Serum creatinine measurement (mass/volume)Ordered By: Ayden Bosch on 07-26-2025 Creatinine [Mass/Vol] 0.60 mg/dL Low 0.70-1.20 [facility] Comment on above: Performed By: #### L 501.9520, L100.0100, L501.2300, L500.4050 #### [id number] [place], [address] Serum globulin measurementOr dered By: Ayden Bosch on 07-26-2025 Globulin (S) [Mass/Vol] 3.6 g/dL Normal 2.2-4.2 [facility] Comment on above: Performed By: #### L 501.9520, L100.0100, L501.2300, L500.4050 #### [id number] [place], [address] Serum glucose measurement (m ass/volume)Ordered By: Ayden Bosch on 07-26-2025 Glucose [Mass/Vol] 110 mg/dL High 70-99 [facility] Comment on above: Performed By: #### L 501.9520, L100.0100, L501.2300, L500.4050 #### [id number] [place], [address] Serum or plasma alanine champagne otransferase (ALT) measurementOrdered By: Ayden Bosch on 07-26-2025 ALT [Catalytic activity/Vol] 23 U/L Normal <=46 Comment on above: Performed By: #### L 501.9520, L100.0100, L501.2300, L500.4050 #### [id number] [place], [address] Serum or plasma albumin francoise urement (mass/volume)Ordered By: Ayden Bosch on 07-26-2025 Albumin [Mass/Vol] 3.7 g/dL Normal 3.4-4.8 [facility] Comment on above: Performed By: #### L 501.9520, L100.0100, L501.2300, L500.4050 #### [id number] [place], [address] Serum or plasma albumin/glob ulin mass ratioOrdered By: Ayden Bosch on 07-26-2025 Albumin/Globulin [Mass ratio] 1.0 {ratio} Normal 0.9-2.4 Comment on above: Performed By: #### L 501.9520, L100.0100, L501.2300, L500.4050 #### [id number] [place], [address] Serum or plasma alkaline mariola sphatase measurementOrdered By: Ayden Bosch on 07-26-2025 ALP [Catalytic activity/Vol] 151 U/L High 40-129 Serum or plasma calcium francoise urement (mass/volume)Ordered By: Ayden Bosch on 07-26-2025 Calcium [Mass/Vol] 9.5 mg/dL Normal 7.6-11.0 [facility] Comment on above: Performed By: #### L 501.9520, L100.0100, L501.2300, L500.4050 #### [id number] [place], [address] Serum or plasma urea nitroge n measurement (mass/volume)Ordered By: Ayden Bosch on 07-26-2025 Urea nitrogen [Mass/Vol] 12 mg/dL Normal 4-19 Comment on above: Performed By: #### L 501.9520, L100.0100, L501.2300, L500.4050 #### [id number] [place], [address] Sodium levelOrdered By: Cam Bosch on 07-26-2025 Sodium [Moles/Vol] 133 mmol/L Normal 133-145 [facility] Comment on above: Performed By: #### L 501.9520, L100.0100, L501.2300, L500.4050 #### [id number] [place], [address] TSH DL <= 0.005 mIU/L QnOrde red By: Ayden Bosch on 07-26-2025 TSH Qn 1.310 uIU/mL 0.300-4.20 0 Thyroid Stim Hormone (TSH)on 07-26-2025 TSH 1.310 uIU/mL Normal 0.300-4.20 0 Comment on above: Performed By: #### L 501.9520, L100.0100, L501.2300, L500.4050 #### [id number] [place], [address] Total proteinOrdered By: Ramón Bosch on 07-26-2025 Protein [Mass/Vol] 7.2 g/dL 5.9-8.4 [facility] White blood cell (WBC) count Ordered By: Ayden Bosch on 07-26-2025 WBC (Bld) [#/Vol] 19.5 10*3/uL High 4.4-11.0 [facility] Comment on above: Performed By: #### L 501.9520, L100.0100, L501.2300, L500.4050 #### [id number] [place], [place], [id number] Absolute lymphocyte countOrd ered By: Camille Jenae on 07-19-2025 Lymphocytes Auto (Unsp spec) [#/Vol] 1.95 10*3/uL 0.83-4.51 Absolute neutrophil countOrd ered By: Camille Jenae on 07-19-2025 Neutrophils (Bld) [#/Vol] 16.1 10*3/uL High 2.0-7.7 Anion gap in Serum or Plasma Ordered By: Camille Jenae on 07-19-2025 Anion gap [Moles/Vol] 11 mmol/L 5-15 [facility] Automated lymphocyte count a s percentage of total leukocytesOrdered By: Camille Jenae on 07-19-2025 Lymphocytes/100 WBC Auto (Unsp spec) 9.2 % Low 19-41 BUN/creatinine ratioOrdered By: Camille Jenae on 07-19-2025 Urea nitrogen/Creatinine [Mass ratio] 17.2 mg/mg 10-20 Basophil percentageOrdered B y: Camille Jenae on 07-19-2025 Basophils/100 WBC (Bld) 0.2 % 0-1 [facility] Bilirubin, totalOrdered By: Camille Jenae on 07-19-2025 Bilirubin [Mass/Vol] 0.52 mg/dL Normal 0.00-1.30 [facility] Comment on above: Performed By: #### L 100.0100, L500.4050 #### [id number] [place], [address] Blood manual differential co mment interpretation (narrative result)Ordered By: Camillemago Emanuel on 07-19-2025 Manual differential comment Agapito (Bld) [Interp] COMMENT Comment on above: MONOCYTOSIS. CBC W/Diff, Automatedon 09- SMEAR COMMENT COMMENT Normal Comment on above: Result Comment: MONO CYTOSIS. Performed By: #### L 100.0100, L500.4050 #### [id number] [place], [address] Carbon dioxide, total [Moles /volume] in Central venous bloodOrdered By: Camille Emanuel on 07-19-2025 CO2 [Moles/Vol] 22.5 mmol/L Normal 21.0-32.0 Comment on above: Performed By: #### L 100.0100, L500.4050 #### [id number] [place], [address] Chloride assayOrdered By: Ty ra Emanuel on 07-19-2025 Chloride [Moles/Vol] 97 mmol/L Low 98-108 [facility] Comment on above: Performed By: #### L 100.0100, L500.4050 #### [address] [place], [address] Comprehensive Metabolic Prof ilon 07-19-2025 ALK PHOS 186 U/L High 40-129 Comment on above: Performed By: #### L 100.0100, L500.4050 #### [address] [place], [address] BUN/CRE 17.2 RATIO Normal 10-20 Comment on above: Performed By: #### L 100.0100, L500.4050 #### [id number] [place], [address] ECRCL 57.60 ml/min Normal 50-250 Comment on above: Performed By: #### L 100.0100, L500.4050 #### [address] [place], [address] GAP 11 Normal 5-15 Comment on above: Performed By: #### L 100.0100, L500.4050 #### [address] [place], [address] Potassium [Moles/Vol] 3.9 mmol/L Normal 3.3-5.1 [facility] Comment on above: Performed By: #### L 100.0100, L500.4050 #### [address] [place], [place], [id number] T PROT 6.9 g/dL Normal 5.9-8.4 Comment on above: Performed By: #### L 100.0100, L500.4050 #### [id number] [place], [address] Comprehensive Metabolic Prof ilOrdered By: Camille Emanuel on 07-19-2025 AST [Catalytic activity/Vol] 28 U/L Normal <=37 Comment on above: Performed By: #### L 100.0100, L500.4050 #### [address] [place], [address] Eosinophil percentageOrdered By: Camille Emanuel on 07-19-2025 Eosinophils/100 WBC (Bld) 0.5 % 0-5 Erythrocyte distribution wid th ratioOrdered By: Camille Emanuel on 07-19-2025 Erythrocyte distribution width (RBC) [Ratio] 14.6 % 11.6-14.6 Erythrocyte distribution wid th standard deviationOrdered By: Camille Emanuel on 07-19-2025 Erythrocyte distribution width (RBC) [Ratio] 45.6 fl High 35.1-43.9 Glomerular filtration rate ( GFR) estimation/1.73 sq m using serum, plasma, or whole bOrdered By: Camille Emanuel on 07-19-2025 GFR/1.73 sq M.predicted among non-blacks MDRD (S/P/Bld) [Vol rate/Area] 113 mL/min/{1.73_m2} Normal >60 [facility] Comment on above: mL/min/1.73m2 CKD-EP I Creatinine Equation (2020) Result Comment: mL/m in/1.73m2 CKD-EPI Creatinine Equation (2020) Performed By: #### L 100.0100, L500.4050 #### [address] [place], [address] Hematocrit Auto (Bld) [Volum e fraction]Ordered By: Camille Emanuel on 07-19-2025 Hematocrit (Bld) [Volume fraction] 34.6 % Low 40-54 Hemoglobin measurementOrdere d By: Camille Emanuel on 07-19-2025 Hemoglobin (Bld) [Mass/Vol] 12.1 g/dL Low 13.0-16. 5 Immature granulocytes/100 WB C Auto (Bld)Ordered By: Camille Emanuel on 07-19-2025 Immature granulocytes/100 WBC (Bld) 3.800 % High 0.0-0.9 Comment on above: IG% - Immature Granu locytes (promyelocytes, myelocytes and metamyelocytes) > 1% indicates that a LEFT SHIFT is Present. MCV (mean corpuscular volume ) determinationOrdered By: Camille Emanuel on 07-19-2025 MCV (RBC) [Entitic vol] 90.3 fL 80-94 [facility] Mean corpuscular hemoglobin (MCH) determinationOrdered By: Camille Emanuel on 07-19-2025 MCH (RBC) [Entitic mass] 31.6 pg 27.0-32.0 Mean corpuscular hemoglobin concentration (MCHC) determinationOrdered By: Camille Emanuel on 07-19-2025 MCHC (RBC) [Mass/Vol] 35.0 g/dL 32-36 [facility] Mean platelet volume determi nationOrdered By: Camille Emanuel on 07-19-2025 Platelet mean volume (Bld) [Entitic vol] 9.2 fL 6.2-12.0 Monocyte percentageOrdered B y: Camille Emanuel on 07-19-2025 Monocytes/100 WBC (Bld) 10.7 % High 0-10 [facility] Neutrophil percentageOrdered By: Camille Emanuel on 07-19-2025 Neutrophils/100 WBC (Bld) 75.6 % High 47-70 Nucleated red blood cell per centageOrdered By: Camille Emanuel on 07-19-2025 Nucleated RBC/100 WBC (Bld) [Ratio] 0 % 0-5 Oncology Visit Reporton 07-10 0 Oncology Visit Report Normal [facility] Platelet countOrdered By: Dickson Emanuel on 07-19-2025 Platelets (Bld) [#/Vol] 281 10*3/uL 150-450 Potassium measurement (mass/ volume)Ordered By: Camille Emanuel on 07-19-2025 Potassium (Unsp spec) [Mass/Vol] 3.9 mmol/L 3.3-5.1 RBC Auto (Bld) [#/Vol]Ordere d By: Camille Emanuel on 07-19-2025 RBC (Bld) [#/Vol] 3.83 10*6/uL Low 4.6-6.2 [facility] Serum creatinine measurement (mass/volume)Ordered By: Camille Emanuel on 07-19-2025 Creatinine [Mass/Vol] 0.45 mg/dL Low 0.70-1.20 [facility] Comment on above: Performed By: #### L 100.0100, L500.4050 #### [id number] [place], [place], [id number] Serum globulin measurementOr dered By: Camille Emanuel on 07-19-2025 Globulin (S) [Mass/Vol] 3.2 g/dL Normal 2.2-4.2 [facility] Comment on above: Performed By: #### L 100.0100, L500.4050 #### [id number] [place], [place], [id number] Serum glucose measurement (m ass/volume)Ordered By: Camille Galeanoach on 07-19-2025 Glucose [Mass/Vol] 97 mg/dL Normal 70-99 [facility] Comment on above: Performed By: #### L 100.0100, L500.4050 #### [id number] [place], [address] Serum or plasma alanine champagne otransferase (ALT) measurementOrdered By: Camille SimonJenae on 07-19-2025 ALT [Catalytic activity/Vol] 24 U/L Normal <=46 Comment on above: Performed By: #### L 100.0100, L500.4050 #### [address] [place], [address] Serum or plasma albumin francoise urement (mass/volume)Ordered By: Camille SimonJenae on 07-19-2025 Albumin [Mass/Vol] 3.7 g/dL Normal 3.4-4.8 [facility] Comment on above: Performed By: #### L 100.0100, L500.4050 #### [address] [place], [address] Serum or plasma albumin/glob ulin mass ratioOrdered By: Camille SimonJenae on 07-19-2025 Albumin/Globulin [Mass ratio] 1.1 {ratio} Normal 0.9-2.4 Comment on above: Performed By: #### L 100.0100, L500.4050 #### [address] [place], [address] Serum or plasma alkaline mariola sphatase measurementOrdered By: Camille SimonJenae on 07-19-2025 ALP [Catalytic activity/Vol] 186 U/L High 40-129 Serum or plasma calcium francoise urement (mass/volume)Ordered By: Camille SimonJenae on 07-19-2025 Calcium [Mass/Vol] 9.1 mg/dL Normal 7.6-11.0 [facility] Comment on above: Performed By: #### L 100.0100, L500.4050 #### [id number] [place], [address] Serum or plasma urea nitroge n measurement (mass/volume)Ordered By: Camille Emanuel on 07-19-2025 Urea nitrogen [Mass/Vol] 8 mg/dL Normal 4-19 Comment on above: Performed By: #### L 100.0100, L500.4050 #### [id number] [place], [address] Sodium levelOrdered By: Camille Emanuel on 07-19-2025 Sodium [Moles/Vol] 131 mmol/L Low 133-145 [facility] Comment on above: Performed By: #### L 100.0100, L500.4050 #### [address] [place], [address] Total proteinOrdered By: Lizzy Emanuel on 07-19-2025 Protein [Mass/Vol] 6.9 g/dL 5.9-8.4 [facility] White blood cell (WBC) count Ordered By: Camille Emanuel on 07-19-2025 WBC (Bld) [#/Vol] 21.3 10*3/uL High 4.4-11.0 [facility] Absolute lymphocyte countOrd ered By: Ayden Bosch on 07-05-2025 Lymphocytes Auto (Unsp spec) [#/Vol] 1.58 10*3/uL 0.83-4.51 Absolute neutrophil countOrd ered By: Ayden Bosch on 07-05-2025 Neutrophils (Bld) [#/Vol] 2.1 10*3/uL 2.0-7.7 Anion gap in Serum or Plasma Ordered By: Ayden Bosch on 07-05-2025 Anion gap [Moles/Vol] 12 mmol/L 5-15 [facility] Automated lymphocyte count a s percentage of total leukocytesOrdered By: Ayden Bosch on 07-05-2025 Lymphocytes/100 WBC Auto (Unsp spec) 29.9 % 19-41 BUN/creatinine ratioOrdered By: Ayden Bosch on 07-05-2025 Urea nitrogen/Creatinine [Mass ratio] 11.5 mg/mg 10-20 Basophil percentageOrdered B y: Ayden Danitza on 07-05-2025 Basophils/100 WBC (Bld) 0.6 % 0-1 [facility] Bilirubin, totalOrdered By: Ayden Bosch on 07-05-2025 Bilirubin [Mass/Vol] 0.82 mg/dL 0.00-1.30 [facility] Blood manual differential co mment interpretation (narrative result)Ordered By: Ayden Bosch on 07-05-2025 Manual differential comment Agapito (Bld) [Interp] COMMENT Comment on above: MONOCYTOSIS. CBC W/Diff, Automatedon 06-10 ATYPICAL LYMPH 1+ Normal Comment on above: Performed By: #### L 500.4050, L501.2300, L100.0100, L501.9520 #### [id number] [place], [address] SMEAR COMMENT COMMENT Normal Comment on above: Result Comment: MONO CYTOSIS. Performed By: #### L 500.4050, L501.2300, L100.0100, L501.9520 #### [address] [place], [address] Carbon dioxide, total [Moles /volume] in Central venous bloodOrdered By: Ayden Bosch on 07-05-2025 CO2 [Moles/Vol] 22.4 mmol/L 21.0-32.0 Chloride assayOrdered By: Terra Bosch on 07-05-2025 Chloride [Moles/Vol] 99 mmol/L 98-108 [facility] Comprehensive Metabolic Prof ilon 07-05-2025 Albumin [Mass/Vol] 3.7 g/dL Normal 3.4-4.8 [facility] Comment on above: Performed By: #### L 500.4050, L501.2300, L100.0100, L501.9520 #### [address] [place], [address] Albumin/Globulin [Mass ratio] 1.1 {ratio} Normal 0.9-2.4 Comment on above: Performed By: #### L 500.4050, L501.2300, L100.0100, L501.9520 #### [address] [place], [address] ALK PHOS 124 U/L Normal 40-129 Comment on above: Performed By: #### L 500.4050, L501.2300, L100.0100, L501.9520 #### [address] [place], [address] ALT [Catalytic activity/Vol] 35 U/L Normal <=46 Comment on above: Performed By: #### L 500.4050, L501.2300, L100.0100, L501.9520 #### [address] [place], [address] AST [Catalytic activity/Vol] 40 U/L High <=37 Comment on above: Performed By: #### L 500.4050, L501.2300, L100.0100, L501.9520 #### [address] [place], [address] Bilirubin [Mass/Vol] 0.82 mg/dL Normal 0.00-1.30 [facility] Comment on above: Performed By: #### L 500.4050, L501.2300, L100.0100, L501.9520 #### [id number] [place], [address] BUN/CRE 11.5 RATIO Normal 10-20 Comment on above: Performed By: #### L 500.4050, L501.2300, L100.0100, L501.9520 #### [id number] [place], [address] Calcium [Mass/Vol] 9.2 mg/dL Normal 7.6-11.0 [facility] Comment on above: Performed By: #### L 500.4050, L501.2300, L100.0100, L501.9520 #### [id number] [place], [address] Chloride [Moles/Vol] 99 mmol/L Normal 98-108 [facility] Comment on above: Performed By: #### L 500.4050, L501.2300, L100.0100, L501.9520 #### [address] [place], [address] CO2 [Moles/Vol] 22.4 mmol/L Normal 21.0-32.0 Comment on above: Performed By: #### L 500.4050, L501.2300, L100.0100, L501.9520 #### [address] [place], [address] Creatinine [Mass/Vol] 0.68 mg/dL Low 0.70-1.20 [facility] Comment on above: Performed By: #### L 500.4050, L501.2300, L100.0100, L501.9520 #### [address] [place], [address] ECRCL 57.60 ml/min Normal 50-250 Comment on above: Performed By: #### L 500.4050, L501.2300, L100.0100, L501.9520 #### [address] [place], [address] GAP 12 Normal 5-15 Comment on above: Performed By: #### L 500.4050, L501.2300, L100.0100, L501.9520 #### [address] [place], [address] GFR/1.73 sq M.predicted among non-blacks MDRD (S/P/Bld) [Vol rate/Area] 100 mL/min/{1.73_m2} Normal >60 [facility] Comment on above: Result Comment: mL/m in/1.73m2 CKD-EPI Creatinine Equation (2020) Performed By: #### L 500.4050, L501.2300, L100.0100, L501.9520 #### [address] [place], [address] Globulin (S) [Mass/Vol] 3.5 g/dL Normal 2.2-4.2 [facility] Comment on above: Performed By: #### L 500.4050, L501.2300, L100.0100, L501.9520 #### [address] [place], [address] Glucose [Mass/Vol] 119 mg/dL High 70-99 [facility] Comment on above: Performed By: #### L 500.4050, L501.2300, L100.0100, L501.9520 #### [address] [place], [address] Potassium [Moles/Vol] 3.9 mmol/L Normal 3.3-5.1 [facility] Comment on above: Performed By: #### L 500.4050, L501.2300, L100.0100, L501.9520 #### [address] [place], [address] Sodium [Moles/Vol] 134 mmol/L Normal 133-145 [facility] Comment on above: Performed By: #### L 500.4050, L501.2300, L100.0100, L501.9520 #### [address] [place], [address] T PROT 7.2 g/dL Normal 5.9-8.4 Comment on above: Performed By: #### L 500.4050, L501.2300, L100.0100, L501.9520 #### [address] [place], [address] Urea nitrogen [Mass/Vol] 8 mg/dL Normal 4-19 Comment on above: Performed By: #### L 500.4050, L501.2300, L100.0100, L501.9520 #### [address] [place], [address] Eosinophil percentageOrdered By: Ayden Bosch on 07-05-2025 Eosinophils/100 WBC (Bld) 1.3 % 0-5 Erythrocyte distribution wid th ratioOrdered By: Ayden Bosch on 07-05-2025 Erythrocyte distribution width (RBC) [Ratio] 13.5 % 11.6-14.6 Erythrocyte distribution wid th standard deviationOrdered By: Ayden Bosch on 07-05-2025 Erythrocyte distribution width (RBC) [Ratio] 42.8 fl 35.1-43.9 Glomerular filtration rate ( GFR) estimation/1.73 sq m using serum, plasma, or whole bOrdered By: Ayden Bosch on 07-05-2025 GFR/1.73 sq M.predicted among non-blacks MDRD (S/P/Bld) [Vol rate/Area] 100 mL/min/{1.73_m2} >60 [facility] Comment on above: mL/min/1.73m2 CKD-EP I Creatinine Equation (2020) Hematocrit Auto (Bld) [Volum e fraction]Ordered By: Ayden Bosch on 07-05-2025 Hematocrit (Bld) [Volume fraction] 35.3 % Low 40-54 Hemoglobin measurementOrdere d By: Ayden Bsoch on 07-05-2025 Hemoglobin (Bld) [Mass/Vol] 12.7 g/dL Low 13.0-16. 5 Immature granulocytes/100 WB C Auto (Bld)Ordered By: Ayden Bosch on 07-05-2025 Immature granulocytes/100 WBC (Bld) 0.400 % 0.0-0.9 Comment on above: IG% - Immature Granu locytes (promyelocytes, myelocytes and metamyelocytes) > 1% indicates that a LEFT SHIFT is Present. Laboratory - Chemistry and C hemistry - challengeOrdered By: Ayden Bosch on 07-05-2025 AST [Catalytic activity/Vol] 40 U/L High <38 MCV (mean corpuscular volume ) determinationOrdered By: Ayden Bosch on 07-05-2025 MCV (RBC) [Entitic vol] 88.3 fL 80-94 [facility] Mean corpuscular hemoglobin (MCH) determinationOrdered By: Ayden Bosch on 07-05-2025 MCH (RBC) [Entitic mass] 31.8 pg 27.0-32.0 Mean corpuscular hemoglobin concentration (MCHC) determinationOrdered By: Ayden Bosch on 07-05-2025 MCHC (RBC) [Mass/Vol] 36.0 g/dL 32-36 [facility] Mean platelet volume determi nationOrdered By: Ayden Bosch on 07-05-2025 Platelet mean volume (Bld) [Entitic vol] 8.8 fL 6.2-12.0 Monocyte percentageOrdered B y: Ayden Bosch on 07-05-2025 Monocytes/100 WBC (Bld) 28.5 % High 0-10 [facility] Neutrophil percentageOrdered By: Ayden Bosch on 07-05-2025 Neutrophils/100 WBC (Bld) 39.3 % Low 47-70 Nucleated red blood cell per centageOrdered By: Ayden Bosch on 07-05-2025 Nucleated RBC/100 WBC (Bld) [Ratio] 0 % 0-5 Oncology Visit Reporton 06-10 Oncology Visit Report Normal [facility] Phosphoruson 07-05-2025 Phosphate [Mass/Vol] 3.0 mg/dL Normal 2.7-4.5 [facility] Comment on above: Performed By: #### L 500.4050, L501.2300, L100.0100, L501.9520 #### [id number] [place], [address] Platelet countOrdered By: Terra Bosch on 07-05-2025 Platelets (Bld) [#/Vol] 448 10*3/uL 150-450 Potassium measurement (mass/ volume)Ordered By: Ayden Bosch on 07-05-2025 Potassium (Unsp spec) [Mass/Vol] 3.9 mmol/L 3.3-5.1 RBC Auto (Bld) [#/Vol]Ordere d By: Ayden Bosch on 07-05-2025 RBC (Bld) [#/Vol] 4.00 10*6/uL Low 4.6-6.2 [facility] Serum creatinine measurement (mass/volume)Ordered By: Ayden Bosch on 07-05-2025 Creatinine [Mass/Vol] 0.68 mg/dL Low 0.70-1.20 [facility] Serum globulin measurementOr dered By: Ayden Bosch on 07-05-2025 Globulin (S) [Mass/Vol] 3.5 g/dL 2.2-4.2 [facility] Serum glucose measurement (m ass/volume)Ordered By: Ayden Bosch on 07-05-2025 Glucose [Mass/Vol] 119 mg/dL High 70-99 [facility] Serum or plasma alanine champagne otransferase (ALT) measurementOrdered By: Ayden Bosch on 07-05-2025 ALT [Catalytic activity/Vol] 35 U/L <47 Serum or plasma albumin francoise urement (mass/volume)Ordered By: Ayden Bosch on 07-05-2025 Albumin [Mass/Vol] 3.7 g/dL 3.4-4.8 [facility] Serum or plasma albumin/glob ulin mass ratioOrdered By: Ayden Bosch on 07-05-2025 Albumin/Globulin [Mass ratio] 1.1 {ratio} 0.9-2.4 Serum or plasma alkaline mariola sphatase measurementOrdered By: Ayden Bosch on 07-05-2025 ALP [Catalytic activity/Vol] 124 U/L 40-129 Serum or plasma calcium francoise urement (mass/volume)Ordered By: Ayden Bosch on 07-05-2025 Calcium [Mass/Vol] 9.2 mg/dL 7.6-11.0 [facility] Serum or plasma urea nitroge n measurement (mass/volume)Ordered By: Ayden Bosch on 07-05-2025 Urea nitrogen [Mass/Vol] 8 mg/dL 4-19 Sodium levelOrdered By: Cam Bosch on 07-05-2025 Sodium [Moles/Vol] 134 mmol/L 133-145 [facility] TSH DL <= 0.005 mIU/L QnOrde red By: Ayden Bosch on 07-05-2025 TSH Qn 1.890 uIU/mL 0.300-4.20 0 Thyroid Stim Hormone (TSH)on 07-05-2025 TSH 1.890 uIU/mL Normal 0.300-4.20 0 Comment on above: Performed By: #### L 500.4050, L501.2300, L100.0100, L501.9520 #### [id number] [place], [place], [address] Total proteinOrdered By: Ramón Bosch on 07-05-2025 Protein [Mass/Vol] 7.2 g/dL 5.9-8.4 [facility] White blood cell (WBC) count Ordered By: Ayden Bosch on 07-05-2025 WBC (Bld) [#/Vol] 5.3 10*3/uL 4.4-11.0 [facility] Absolute lymphocyte countOrd ered By: Ayden Bosch on 06-29-2025 Lymphocytes Auto (Unsp spec) [#/Vol] 1.25 10*3/uL 0.83-4.51 Absolute neutrophil countOrd ered By: Ayden Bosch on 06-29-2025 Neutrophils (Bld) [#/Vol] 1.2 10*3/uL Low 2.0-7.7 Anion gap in Serum or Plasma Ordered By: Ayden Bosch on 06-29-2025 Anion gap [Moles/Vol] 13 mmol/L 5-15 [facility] Automated lymphocyte count a s percentage of total leukocytesOrdered By: Ayden Bosch on 06-29-2025 Lymphocytes/100 WBC Auto (Unsp spec) 39.9 % 19-41 BUN/creatinine ratioOrdered By: Ayden Bosch on 06-29-2025 Urea nitrogen/Creatinine [Mass ratio] 13.6 mg/mg 10-20 Basophil percentageOrdered B y: Ayden Bosch on 06-29-2025 Basophils/100 WBC (Bld) 0.6 % 0-1 [facility] Bilirubin, totalOrdered By: Ayden Bosch on 06-29-2025 Bilirubin [Mass/Vol] 0.79 mg/dL 0.00-1.30 [facility] Blood manual differential co mment interpretation (narrative result)Ordered By: Ayden Bosch on 06-29-2025 Manual differential comment Agapito (Bld) [Interp] COMMENT Comment on above: LYMPHOPENIA. CBC W/Diff, Automatedon 06-10 Anisocytosis Ql (Bld) 1+ Normal [facility] Comment on above: Performed By: #### L 504.2610, L100.0100, L500.4050 #### [address] [place], [address] SMEAR COMMENT COMMENT Normal Comment on above: Result Comment: LYMP HOPENIA. Performed By: #### L 504.2610, L100.0100, L500.4050 #### [address] [place], [address] Carbon dioxide, total [Moles /volume] in Central venous bloodOrdered By: Ayden Bosch on 06-29-2025 CO2 [Moles/Vol] 22.9 mmol/L 21.0-32.0 Chloride assayOrdered By: Terra Bosch on 06-29-2025 Chloride [Moles/Vol] 97 mmol/L Low 98-108 [facility] Comprehensive Metabolic Prof ilon 06-29-2025 Albumin [Mass/Vol] 3.9 g/dL Normal 3.4-4.8 [facility] Comment on above: Performed By: #### L 504.2610, L100.0100, L500.4050 #### [address] [place], [address] Albumin/Globulin [Mass ratio] 1.2 {ratio} Normal 0.9-2.4 Comment on above: Performed By: #### L 504.2610, L100.0100, L500.4050 #### [address] [place], [address] ALK PHOS 126 U/L Normal 40-129 Comment on above: Performed By: #### L 504.2610, L100.0100, L500.4050 #### [address] [place], [address] ALT [Catalytic activity/Vol] 51 U/L High <=46 Comment on above: Performed By: #### L 504.2610, L100.0100, L500.4050 #### [address] [place], [address] AST [Catalytic activity/Vol] 55 U/L High <=37 Comment on above: Performed By: #### L 504.2610, L100.0100, L500.4050 #### [address] [place], [address] Bilirubin [Mass/Vol] 0.79 mg/dL Normal 0.00-1.30 [facility] Comment on above: Performed By: #### L 504.2610, L100.0100, L500.4050 #### [address] [place], [address] BUN/CRE 13.6 RATIO Normal 10-20 Comment on above: Performed By: #### L 504.2610, L100.0100, L500.4050 #### [address] [place], [address] Calcium [Mass/Vol] 9.2 mg/dL Normal 7.6-11.0 [facility] Comment on above: Performed By: #### L 504.2610, L100.0100, L500.4050 #### [address] [place], [address] Chloride [Moles/Vol] 97 mmol/L Low 98-108 [facility] Comment on above: Performed By: #### L 504.2610, L100.0100, L500.4050 #### [address] [place], [address] CO2 [Moles/Vol] 22.9 mmol/L Normal 21.0-32.0 Comment on above: Performed By: #### L 504.2610, L100.0100, L500.4050 #### [address] [place], [address] Creatinine [Mass/Vol] 0.54 mg/dL Low 0.70-1.20 [facility] Comment on above: Performed By: #### L 504.2610, L100.0100, L500.4050 #### [address] [place], [address] ECRCL 58.43 ml/min Normal 50-250 Comment on above: Performed By: #### L 504.2610, L100.0100, L500.4050 #### [address] [place], [address] GAP 13 Normal 5-15 Comment on above: Performed By: #### L 504.2610, L100.0100, L500.4050 #### [id number] [place], [address] GFR/1.73 sq M.predicted among non-blacks MDRD (S/P/Bld) [Vol rate/Area] 107 mL/min/{1.73_m2} Normal >60 [facility] Comment on above: Result Comment: mL/m in/1.73m2 CKD-EPI Creatinine Equation (2020) Performed By: #### L 504.2610, L100.0100, L500.4050 #### [id number] [place], [address] Globulin (S) [Mass/Vol] 3.2 g/dL Normal 2.2-4.2 [facility] Comment on above: Performed By: #### L 504.2610, L100.0100, L500.4050 #### [id number] [place], [address] Glucose [Mass/Vol] 101 mg/dL High 70-99 [facility] Comment on above: Performed By: #### L 504.2610, L100.0100, L500.4050 #### [id number] [place], [address] Potassium [Moles/Vol] 3.9 mmol/L Normal 3.3-5.1 [facility] Comment on above: Performed By: #### L 504.2610, L100.0100, L500.4050 #### [id number] [place], [address] Sodium [Moles/Vol] 132 mmol/L Low 133-145 [facility] Comment on above: Performed By: #### L 504.2610, L100.0100, L500.4050 #### [id number] [place], [address] T PROT 7.1 g/dL Normal 5.9-8.4 Comment on above: Performed By: #### L 504.2610, L100.0100, L500.4050 #### [id number] [place], [address] Urea nitrogen [Mass/Vol] 7 mg/dL Normal 4-19 Comment on above: Performed By: #### L 504.2610, L100.0100, L500.4050 #### [id number] [place], [address] Eosinophil percentageOrdered By: Ayden Bosch on 06-29-2025 Eosinophils/100 WBC (Bld) 1.9 % 0-5 Erythrocyte distribution wid th ratioOrdered By: Ayden Bosch on 06-29-2025 Erythrocyte distribution width (RBC) [Ratio] 12.4 % 11.6-14.6 Erythrocyte distribution wid th standard deviationOrdered By: Ayden Bosch on 06-29-2025 Erythrocyte distribution width (RBC) [Ratio] 39.4 fl 35.1-43.9 Glomerular filtration rate ( GFR) estimation/1.73 sq m using serum, plasma, or whole bOrdered By: Ayden Bosch on 06-29-2025 GFR/1.73 sq M.predicted among non-blacks MDRD (S/P/Bld) [Vol rate/Area] 107 mL/min/{1.73_m2} >60 [facility] Comment on above: mL/min/1.73m2 CKD-EP I Creatinine Equation (2020) Hematocrit Auto (Bld) [Volum e fraction]Ordered By: Ayden Bosch on 06-29-2025 Hematocrit (Bld) [Volume fraction] 35.5 % Low 40-54 Hemoglobin measurementOrdere d By: Ayden Bosch on 06-29-2025 Hemoglobin (Bld) [Mass/Vol] 12.6 g/dL Low 13.0-16. 5 Immature granulocytes/100 WB C Auto (Bld)Ordered By: Ayden Bosch on 06-29-2025 Immature granulocytes/100 WBC (Bld) 0.300 % 0.0-0.9 Comment on above: IG% - Immature Granu locytes (promyelocytes, myelocytes and metamyelocytes) > 1% indicates that a LEFT SHIFT is Present. LDHon 06-29-2025 LDH 208 U/L Normal 87-241 Comment on above: Order Comment: 1 Performed By: #### L 504.2610, L100.0100, L500.4050 #### [id number] [place], [address] Laboratory - Chemistry and C hemistry - challengeOrdered By: Ayden Bosch on 06-29-2025 AST [Catalytic activity/Vol] 55 U/L High <38 Laboratory - Hematology and Cell countsOrdered By: Ayden Bosch on 06-29-2025 Anisocytosis Ql (Bld) 1+ [facility] Lactate dehydrogenase (LDH) measurementOrdered By: Ayden Bosch on 06-29-2025 LDH [Catalytic activity/Vol] 208 U/L 87-241 MCV (mean corpuscular volume ) determinationOrdered By: Ayden Bosch on 06-29-2025 MCV (RBC) [Entitic vol] 88.3 fL 80-94 [facility] Mean corpuscular hemoglobin (MCH) determinationOrdered By: Ayden Bosch on 06-29-2025 MCH (RBC) [Entitic mass] 31.3 pg 27.0-32.0 Mean corpuscular hemoglobin concentration (MCHC) determinationOrdered By: Ayden Bosch on 06-29-2025 MCHC (RBC) [Mass/Vol] 35.5 g/dL 32-36 [facility] Mean platelet volume determi nationOrdered By: Ayden Bosch on 06-29-2025 Platelet mean volume (Bld) [Entitic vol] 9.2 fL 6.2-12.0 Monocyte percentageOrdered B y: Ayden Bosch on 06-29-2025 Monocytes/100 WBC (Bld) 19.2 % High 0-10 [facility] Neutrophil percentageOrdered By: Ayden Bosch on 08-21-2025 Neutrophils/100 WBC (Bld) 38.1 % Low 47-70 Nucleated red blood cell per centageOrdered By: Ayden Bosch on 06-29-2025 Nucleated RBC/100 WBC (Bld) [Ratio] 0 % 0-5 Oncology Visit Reporton 08 Oncology Visit Report Normal [facility] Platelet countOrdered By: Terra Bosch on 06-29-2025 Platelets (Bld) [#/Vol] 191 10*3/uL 150-450 Potassium measurement (mass/ volume)Ordered By: Ayden Bosch on 06-29-2025 Potassium (Unsp spec) [Mass/Vol] 3.9 mmol/L 3.3-5.1 RBC Auto (Bld) [#/Vol]Ordere d By: Ayden Bosch on 06-29-2025 RBC (Bld) [#/Vol] 4.02 10*6/uL Low 4.6-6.2 [facility] Serum creatinine measurement (mass/volume)Ordered By: Ayden Bosch on 06-29-2025 Creatinine [Mass/Vol] 0.54 mg/dL Low 0.70-1.20 [facility] Serum globulin measurementOr dered By: Ayden Bosch on 06-29-2025 Globulin (S) [Mass/Vol] 3.2 g/dL 2.2-4.2 [facility] Serum glucose measurement (m ass/volume)Ordered By: Ayden Bosch on 06-29-2025 Glucose [Mass/Vol] 101 mg/dL High 70-99 [facility] Serum or plasma alanine champagne otransferase (ALT) measurementOrdered By: Ayden Bosch on 06-29-2025 ALT [Catalytic activity/Vol] 51 U/L High <47 Serum or plasma albumin francoise urement (mass/volume)Ordered By: Ayden Bosch on 06-29-2025 Albumin [Mass/Vol] 3.9 g/dL 3.4-4.8 [facility] Serum or plasma albumin/glob ulin mass ratioOrdered By: Ayden Bosch on 06-29-2025 Albumin/Globulin [Mass ratio] 1.2 {ratio} 0.9-2.4 Serum or plasma alkaline mariola sphatase measurementOrdered By: Ayden Bosch on 06-29-2025 ALP [Catalytic activity/Vol] 126 U/L 40-129 Serum or plasma calcium francoise urement (mass/volume)Ordered By: Ayden Bosch on 06-29-2025 Calcium [Mass/Vol] 9.2 mg/dL 7.6-11.0 [facility] Serum or plasma urea nitroge n measurement (mass/volume)Ordered By: Ayden Bosch on 06-29-2025 Urea nitrogen [Mass/Vol] 7 mg/dL 4-19 Sodium levelOrdered By: Cam Bosch on 06-29-2025 Sodium [Moles/Vol] 132 mmol/L Low 133-145 [facility] Total proteinOrdered By: Ramón Bosch on 06-29-2025 Protein [Mass/Vol] 7.1 g/dL 5.9-8.4 [facility] White blood cell (WBC) count Ordered By: Ayden Bosch on 06-29-2025 WBC (Bld) [#/Vol] 3.1 10*3/uL Low 4.4-11.0 [facility] Absolute lymphocyte countOrd ered By: Ayden Bosch on 06-14-2025 Lymphocytes Auto (Unsp spec) [#/Vol] 0.97 10*3/uL 0.83-4.51 Absolute neutrophil countOrd ered By: Ayden Bosch on 06-14-2025 Neutrophils (Bld) [#/Vol] 11.8 10*3/uL High 2.0-7.7 Anion gap in Serum or Plasma Ordered By: Ayden Bosch on 06-14-2025 Anion gap [Moles/Vol] 11 mmol/L 5-15 [facility] Automated lymphocyte count a s percentage of total leukocytesOrdered By: Ayden Bosch on 06-14-2025 Lymphocytes/100 WBC Auto (Unsp spec) 7.0 % Low 19-41 BUN/creatinine ratioOrdered By: Ayden Bosch on 06-14-2025 Urea nitrogen/Creatinine [Mass ratio] 23.7 mg/mg High 10-20 Basophil percentageOrdered B y: Ayden Bosch on 06-14-2025 Basophils/100 WBC (Bld) 0.2 % 0-1 [facility] Bilirubin, totalOrdered By: Ayden Bosch on 06-14-2025 Bilirubin [Mass/Vol] 0.77 mg/dL 0.00-1.30 [facility] CBC W/Diff, Automatedon Absolute Lymph 0.97 X10 3/uL Normal 0.83-4.51 Comment on above: Performed By: #### L 100.0100, L501.9520, L501.2300, L500.4050 #### [id number] [place], [address] Absolute Neut 11.8 X10 3/uL High 2.0-7.7 Comment on above: Performed By: #### L 100.0100, L501.9520, L501.2300, L500.4050 #### [address] [place], [address] Basophils/100 WBC (Bld) 0.2 % Normal 0-1 [facility] Comment on above: Performed By: #### L 100.0100, L501.9520, L501.2300, L500.4050 #### [address] [place], [address] Eosinophils/100 WBC (Bld) 0.0 % Normal 0-5 Comment on above: Performed By: #### L 100.0100, L501.9520, L501.2300, L500.4050 #### [address] [place], [address] Erythrocyte distribution width (RBC) [Ratio] 13.0 % Normal 11.6-14.6 Comment on above: Performed By: #### L 100.0100, L501.9520, L501.2300, L500.4050 #### [id number] [place], [address] Hematocrit (Bld) [Volume fraction] 40.3 % Normal 40-54 Comment on above: Performed By: #### L 100.0100, L501.9520, L501.2300, L500.4050 #### [address] [place], [address] Hemoglobin (Bld) [Mass/Vol] 14.2 g/dL Normal 13.0-16. 5 Comment on above: Performed By: #### L 100.0100, L501.9520, L501.2300, L500.4050 #### [address] [place], [address] IG% 0.600 Normal 0.0-0.9 Comment on above: Result Comment: IG% - Immature Granulocytes (promyelocytes, myelocytes andmetamyelocytes) > 1% indicates that a LEFT SHIFT is Present. Performed By: #### L 100.0100, L501.9520, L501.2300, L500.4050 #### [address] [place], [address] Lymphocytes/100 WBC (Bld) 7.0 % Low 19-41 Comment on above: Performed By: #### L 100.0100, L501.9520, L501.2300, L500.4050 #### [address] [place], [address] MCH (RBC) [Entitic mass] 31.0 pg Normal 27.0-32.0 Comment on above: Performed By: #### L 100.0100, L501.9520, L501.2300, L500.4050 #### [id number] [place], [address] MCHC (RBC) [Mass/Vol] 35.2 g/dL Normal 32-36 [facility] Comment on above: Performed By: #### L 100.0100, L501.9520, L501.2300, L500.4050 #### [id number] [place], [address] MCV (RBC) [Entitic vol] 88.0 fL Normal 80-94 [facility] Comment on above: Performed By: #### L 100.0100, L501.9520, L501.2300, L500.4050 #### [address] [place], [address] Monocytes/100 WBC (Bld) 6.7 % Normal 0-10 [facility] Comment on above: Performed By: #### L 100.0100, L501.9520, L501.2300, L500.4050 #### [id number] [place], [address] Neutrophils/100 WBC (Bld) 85.5 % High 47-70 Comment on above: Performed By: #### L 100.0100, L501.9520, L501.2300, L500.4050 #### [address] [place], [address] Nucleated RBC (Bld) [#/Vol] 0 10*3/uL Normal 0-5 Comment on above: Performed By: #### L 100.0100, L501.9520, L501.2300, L500.4050 #### [address] [place], [address] Platelet mean volume (Bld) [Entitic vol] 9.8 fL Normal 6.2-12.0 Comment on above: Performed By: #### L 100.0100, L501.9520, L501.2300, L500.4050 #### [address] [place], [address] Platelets (Bld) [#/Vol] 321 10*3/uL Normal 150-450 Comment on above: Performed By: #### L 100.0100, L501.9520, L501.2300, L500.4050 #### [address] [place], [address] RBC (Bld) [#/Vol] 4.58 10*6/uL Low 4.6-6.2 [facility] Comment on above: Performed By: #### L 100.0100, L501.9520, L501.2300, L500.4050 #### [address] [place], [address] RDW SD 41.5 fl Normal 35.1-43.9 Comment on above: Performed By: #### L 100.0100, L501.9520, L501.2300, L500.4050 #### [address] [place], [address] WBC (Bld) [#/Vol] 13.8 10*3/uL High 4.4-11.0 [facility] Comment on above: Performed By: #### L 100.0100, L501.9520, L501.2300, L500.4050 #### [id number] [place], [address] Absolute Neut Normal 2.0-7.7 Comment on above: Result Comment: DUPL ICATE ORDER, COMPLETED @06/14/25755 Performed By: #### L 100.0100, L500.4050 #### [address] [place], [address] HCT Normal 40-54 Comment on above: Result Comment: DUPL ICATE ORDER, COMPLETED @06/14/25 0756 Performed By: #### L 100.0100, L500.4050 #### [address] [place], [address] HGB Normal 13.0-16.5 Comment on above: Result Comment: DUPL ICATE ORDER, COMPLETED @06/14/256 Performed By: #### L 100.0100, L500.4050 #### [address] [place], [address] MCH Normal 27.0-32.0 Comment on above: Result Comment: DUPL ICATE ORDER, COMPLETED @06/14/25755 Performed By: #### L 100.0100, L500.4050 #### [address] [place], [address] MCHC Normal 32-36 Comment on above: Result Comment: DUPL ICATE ORDER, COMPLETED @06/14/25755 Performed By: #### L 100.0100, L500.4050 #### [address] [place], [address] MCV Normal 80-94 Comment on above: Result Comment: DUPL ICATE ORDER, COMPLETED @06/14/25755 Performed By: #### L 100.0100, L500.4050 #### [address] [place], [address] NEUT% Normal 47-70 Comment on above: Result Comment: DUPL ICATE ORDER, COMPLETED @06/14/25755 Performed By: #### L 100.0100, L500.4050 #### [address] [place], [address] PLT Normal 150-450 Comment on above: Result Comment: DUPL ICATE ORDER, COMPLETED @06/14/25755 Performed By: #### L 100.0100, L500.4050 #### [address] [place], [address] RBC Normal 4.6-6.2 Comment on above: Result Comment: DUPL ICATE ORDER, COMPLETED @06/14/25755 Performed By: #### L 100.0100, L500.4050 #### [address] [place], [address] RDW CV Normal 11.6-14.6 Comment on above: Result Comment: DUPL ICATE ORDER, COMPLETED @06/14/25755 Performed By: #### L 100.0100, L500.4050 #### [address] [place], [address] RDW SD Normal 35.1-43.9 Comment on above: Result Comment: DUPL ICATE ORDER, COMPLETED @06/14/25755 Performed By: #### L 100.0100, L500.4050 #### [address] [place], [address] WBC Normal 4.4-11.0 Comment on above: Result Comment: DUPL ICATE ORDER, COMPLETED @06/14/25755 Performed By: #### L 100.0100, L500.4050 #### [address] [place], [address] Carbon dioxide, total [Moles /volume] in Central venous bloodOrdered By: Ayden Bosch on 06-14-2025 CO2 [Moles/Vol] 22.3 mmol/L 21.0-32.0 Chloride assayOrdered By: Terra Bosch on 06-14-2025 Chloride [Moles/Vol] 95 mmol/L Low 98-108 [facility] Comprehensive Metabolic Prof ilon 06-14-2025 Albumin [Mass/Vol] 3.8 g/dL Normal 3.4-4.8 [facility] Comment on above: Performed By: #### L 100.0100, L501.9520, L501.2300, L500.4050 #### [address] [place], [address] Albumin/Globulin [Mass ratio] 1.1 {ratio} Normal 0.9-2.4 Comment on above: Performed By: #### L 100.0100, L501.9520, L501.2300, L500.4050 #### [address] [place], [address] ALK PHOS 99 U/L Normal 40-129 Comment on above: Performed By: #### L 100.0100, L501.9520, L501.2300, L500.4050 #### [address] [place], [address] ALT [Catalytic activity/Vol] 21 U/L Normal <=46 Comment on above: Performed By: #### L 100.0100, L501.9520, L501.2300, L500.4050 #### [address] [place], [address] AST [Catalytic activity/Vol] 31 U/L Normal <=37 Comment on above: Performed By: #### L 100.0100, L501.9520, L501.2300, L500.4050 #### [address] [place], [address] Bilirubin [Mass/Vol] 0.77 mg/dL Normal 0.00-1.30 [facility] Comment on above: Performed By: #### L 100.0100, L501.9520, L501.2300, L500.4050 #### [address] [place], [address] BUN/CRE 23.7 RATIO High 10-20 Comment on above: Performed By: #### L 100.0100, L501.9520, L501.2300, L500.4050 #### [address] [place], [address] Calcium [Mass/Vol] 9.3 mg/dL Normal 7.6-11.0 [facility] Comment on above: Performed By: #### L 100.0100, L501.9520, L501.2300, L500.4050 #### [address] [place], [address] Chloride [Moles/Vol] 95 mmol/L Low 98-108 [facility] Comment on above: Performed By: #### L 100.0100, L501.9520, L501.2300, L500.4050 #### [address] [place], [address] CO2 [Moles/Vol] 22.3 mmol/L Normal 21.0-32.0 Comment on above: Performed By: #### L 100.0100, L501.9520, L501.2300, L500.4050 #### [address] [place], [address] Creatinine [Mass/Vol] 0.55 mg/dL Low 0.70-1.20 [facility] Comment on above: Performed By: #### L 100.0100, L501.9520, L501.2300, L500.4050 #### [address] [place], [address] ECRCL 57.54 ml/min Normal 50-250 Comment on above: Performed By: #### L 100.0100, L501.9520, L501.2300, L500.4050 #### [address] [place], [address] GAP 11 Normal 5-15 Comment on above: Performed By: #### L 100.0100, L501.9520, L501.2300, L500.4050 #### [address] [place], [address] GFR/1.73 sq M.predicted among non-blacks MDRD (S/P/Bld) [Vol rate/Area] 107 mL/min/{1.73_m2} Normal >60 [facility] Comment on above: Result Comment: mL/m in/1.73m2 CKD-EPI Creatinine Equation (2020) Performed By: #### L 100.0100, L501.9520, L501.2300, L500.4050 #### [address] [place], [address] Globulin (S) [Mass/Vol] 3.5 g/dL Normal 2.2-4.2 [facility] Comment on above: Performed By: #### L 100.0100, L501.9520, L501.2300, L500.4050 #### [address] [place], [address] Glucose [Mass/Vol] 116 mg/dL High 70-99 [facility] Comment on above: Performed By: #### L 100.0100, L501.9520, L501.2300, L500.4050 #### [address] [place], [address] Potassium [Moles/Vol] 4.1 mmol/L Normal 3.3-5.1 [facility] Comment on above: Performed By: #### L 100.0100, L501.9520, L501.2300, L500.4050 #### [address] [place], [address] Sodium [Moles/Vol] 128 mmol/L Low 133-145 [facility] Comment on above: Performed By: #### L 100.0100, L501.9520, L501.2300, L500.4050 #### [address] [place], [address] T PROT 7.3 g/dL Normal 5.9-8.4 Comment on above: Performed By: #### L 100.0100, L501.9520, L501.2300, L500.4050 #### [address] [place], [address] Urea nitrogen [Mass/Vol] 13 mg/dL Normal 4-19 Comment on above: Performed By: #### L 100.0100, L501.9520, L501.2300, L500.4050 #### [address] [place], [address] ALB Normal 3.4-4.8 Comment on above: Result Comment: DUPL ICATE ORDER, COMPLETED @06/14/25755 Performed By: #### L 100.0100, L500.4050 #### [address] [place], [address] ALK PHOS Normal 40-129 Comment on above: Result Comment: DUPL ICATE ORDER, COMPLETED @06/14/25755 Performed By: #### L 100.0100, L500.4050 #### [address] [place], [address] ALT Normal <=46 Comment on above: Result Comment: DUPL ICATE ORDER, COMPLETED @06/14/25755 Performed By: #### L 100.0100, L500.4050 #### [address] [place], [address] AST Normal <=37 Comment on above: Result Comment: DUPL ICATE ORDER, COMPLETED @06/14/25755 Performed By: #### L 100.0100, L500.4050 #### [address] [place], [address] BUN Normal 4-19 Comment on above: Result Comment: DUPL ICATE ORDER, COMPLETED @06/14/25755 Performed By: #### L 100.0100, L500.4050 #### [address] [place], [address] BUN/CRE Normal 10-20 Comment on above: Result Comment: DUPL ICATE ORDER, COMPLETED @06/14/25755 Performed By: #### L 100.0100, L500.4050 #### [address] [place], [address] Calcium Normal 7.6-11.0 Comment on above: Result Comment: DUPL ICATE ORDER, COMPLETED @06/14/25755 Performed By: #### L 100.0100, L500.4050 #### [address] [place], [address] CL Normal 98-108 Comment on above: Result Comment: DUPL ICATE ORDER, COMPLETED @06/14/25755 Performed By: #### L 100.0100, L500.4050 #### [address] [place], [address] CO2 Normal 21.0-32.0 Comment on above: Result Comment: DUPL ICATE ORDER, COMPLETED @06/14/25755 Performed By: #### L 100.0100, L500.4050 #### [address] [place], [address] CREAT,SERUM Normal 0.70-1.20 Comment on above: Result Comment: DUPL ICATE ORDER, COMPLETED @06/14/25755 Performed By: #### L 100.0100, L500.4050 #### [address] [place], [address] eGFR Normal >60 Comment on above: Result Comment: DUPL ICATE ORDER, COMPLETED @06/14/25755 Performed By: #### L 100.0100, L500.4050 #### [address] [place], [address] GAP Normal 5-15 Comment on above: Result Comment: DUPL ICATE ORDER, COMPLETED @06/14/25755 Performed By: #### L 100.0100, L500.4050 #### [address] [place], [address] GLU Normal 70-99 Comment on above: Result Comment: DUPL ICATE ORDER, COMPLETED @06/14/25755 Performed By: #### L 100.0100, L500.4050 #### [address] [place], [address] Potassium Normal 3.3-5.1 Comment on above: Result Comment: DUPL ICATE ORDER, COMPLETED @06/14/25755 Performed By: #### L 100.0100, L500.4050 #### [address] [place], [address] T BILI Normal 0.00-1.30 Comment on above: Result Comment: DUPL ICATE ORDER, COMPLETED @06/14/25755 Performed By: #### L 100.0100, L500.4050 #### [address] [place], [address] T PROT Normal 5.9-8.4 Comment on above: Result Comment: DUPL ICATE ORDER, COMPLETED @06/14/25755 Performed By: #### L 100.0100, L500.4050 #### [address] [place], [address] Comprehensive Metabolic Profil Normal 133-145 Comment on above: Result Comment: DEV WILSON ORDER, COMPLETED @06/14/25755 Performed By: #### L 100.0100, L500.4050 #### [address] [place], [address] Eosinophil percentageOrdered By: Ayden Bosch on 06-14-2025 Eosinophils/100 WBC (Bld) 0.0 % 0-5 Erythrocyte distribution wid th ratioOrdered By: Ayden Bosch on 06-14-2025 Erythrocyte distribution width (RBC) [Ratio] 13.0 % 11.6-14.6 Erythrocyte distribution wid th standard deviationOrdered By: Ayden Bosch on 06-14-2025 Erythrocyte distribution width (RBC) [Ratio] 41.5 fl 35.1-43.9 Glomerular filtration rate ( GFR) estimation/1.73 sq m using serum, plasma, or whole bOrdered By: Ayden Bosch on 06-14-2025 GFR/1.73 sq M.predicted among non-blacks MDRD (S/P/Bld) [Vol rate/Area] 107 mL/min/{1.73_m2} >60 [facility] Comment on above: mL/min/1.73m2 CKD-EP I Creatinine Equation (2020) Hematocrit Auto (Bld) [Volum e fraction]Ordered By: Ayden Bosch on 06-14-2025 Hematocrit (Bld) [Volume fraction] 40.3 % 40-54 Hemoglobin measurementOrdere d By: Ayden Bosch on 06-14-2025 Hemoglobin (Bld) [Mass/Vol] 14.2 g/dL 13.0-16. 5 Immature granulocytes/100 WB C Auto (Bld)Ordered By: Ayden Bosch on 06-14-2025 Immature granulocytes/100 WBC (Bld) 0.600 % 0.0-0.9 Comment on above: IG% - Immature Granu locytes (promyelocytes, myelocytes and metamyelocytes) > 1% indicates that a LEFT SHIFT is Present. Laboratory - Chemistry and C hemistry - challengeOrdered By: Ayden Bosch on 06-14-2025 AST [Catalytic activity/Vol] 31 U/L <38 MCV (mean corpuscular volume ) determinationOrdered By: Ayden Bosch on 06-14-2025 MCV (RBC) [Entitic vol] 88.0 fL 80-94 [facility] Mean corpuscular hemoglobin (MCH) determinationOrdered By: Ayden Bosch on 06-14-2025 MCH (RBC) [Entitic mass] 31.0 pg 27.0-32.0 Mean corpuscular hemoglobin concentration (MCHC) determinationOrdered By: Ayden Bosch on 06-14-2025 MCHC (RBC) [Mass/Vol] 35.2 g/dL 32-36 [facility] Mean platelet volume determi nationOrdered By: Ayden Bosch on 06-14-2025 Platelet mean volume (Bld) [Entitic vol] 9.8 fL 6.2-12.0 Monocyte percentageOrdered B y: Ayden Bosch on 06-14-2025 Monocytes/100 WBC (Bld) 6.7 % 0-10 [facility] Neutrophil percentageOrdered By: Ayden Bosch on 06-14-2025 Neutrophils/100 WBC (Bld) 85.5 % High 47-70 Nucleated red blood cell per centageOrdered By: Ayden Bosch on 06-14-2025 Nucleated RBC/100 WBC (Bld) [Ratio] 0 % 0-5 Oncology Visit Reporton 08-0 Oncology Visit Report Normal [facility] Phosphoruson 06-14-2025 Phosphate [Mass/Vol] 3.4 mg/dL Normal 2.7-4.5 [facility] Comment on above: Performed By: #### L 100.0100, L501.9520, L501.2300, L500.4050 #### [address] [place], [address] Platelet countOrdered By: Terra Bosch on 06-14-2025 Platelets (Bld) [#/Vol] 321 10*3/uL 150-450 Potassium measurement (mass/ volume)Ordered By: Ayden Bosch on 06-14-2025 Potassium (Unsp spec) [Mass/Vol] 4.1 mmol/L 3.3-5.1 RBC Auto (Bld) [#/Vol]Ordere d By: Ayden Bosch on 06-14-2025 RBC (Bld) [#/Vol] 4.58 10*6/uL Low 4.6-6.2 [facility] Serum creatinine measurement (mass/volume)Ordered By: Ayden Bosch on 06-14-2025 Creatinine [Mass/Vol] 0.55 mg/dL Low 0.70-1.20 [facility] Serum globulin measurementOr dered By: Ayden Bosch on 06-14-2025 Globulin (S) [Mass/Vol] 3.5 g/dL 2.2-4.2 [facility] Serum glucose measurement (m ass/volume)Ordered By: Ayden Bosch on 06-14-2025 Glucose [Mass/Vol] 116 mg/dL High 70-99 [facility] Serum or plasma alanine champagne otransferase (ALT) measurementOrdered By: Ayden Bosch on 06-14-2025 ALT [Catalytic activity/Vol] 21 U/L <47 Serum or plasma albumin francoise urement (mass/volume)Ordered By: Ayden Bosch on 06-14-2025 Albumin [Mass/Vol] 3.8 g/dL 3.4-4.8 [facility] Serum or plasma albumin/glob ulin mass ratioOrdered By: Ayden Bosch on 06-14-2025 Albumin/Globulin [Mass ratio] 1.1 {ratio} 0.9-2.4 Serum or plasma alkaline mariola sphatase measurementOrdered By: Ayden Bosch on 06-14-2025 ALP [Catalytic activity/Vol] 99 U/L 40-129 Serum or plasma calcium francoise urement (mass/volume)Ordered By: Ayden Bosch on 06-14-2025 Calcium [Mass/Vol] 9.3 mg/dL 7.6-11.0 [facility] Serum or plasma urea nitroge n measurement (mass/volume)Ordered By: Ayden Bosch on 06-14-2025 Urea nitrogen [Mass/Vol] 13 mg/dL 4-19 Sodium levelOrdered By: Cam Bosch on 06-14-2025 Sodium [Moles/Vol] 128 mmol/L Low 133-145 [facility] TSH DL <= 0.005 mIU/L QnOrde red By: Ayden Bosch on 06-14-2025 TSH Qn 1.900 uIU/mL 0.300-4.20 0 Thyroid Stim Hormone (TSH)on 06-14-2025 TSH 1.900 uIU/mL Normal 0.300-4.20 0 Comment on above: Performed By: #### L 100.0100, L501.9520, L501.2300, L500.4050 #### [id number] [place], [address] Total proteinOrdered By: Ramón Bosch on 06-14-2025 Protein [Mass/Vol] 7.3 g/dL 5.9-8.4 [facility] White blood cell (WBC) count Ordered By: Ayden Bosch on 06-14-2025 WBC (Bld) [#/Vol] 13.8 10*3/uL High 4.4-11.0 [facility] Oncology Visit Reporton Oncology Visit Report Normal [facility] CXR for Line Placementon CXR for Line Placement Normal [facility] Discharge Instructionon 05-10 Discharge Instruction Normal [facility] MR/POSTOP.ANEon 06-05-2025 MR/POSTOP.ANE Normal MR/BMEVOLUY1ym 06-05-2025 MR/POSTOPAN2 Normal Operative Reporton Operative Report Normal MR/PAT.ANEon 06-02-2025 MR/PAT.ANE Normal MR/PAT.ANE Normal Surgery Visit Reporton 05-31 Surgery Visit Report Normal [facility] Oncology Visit Reporton 05-10 Oncology Visit Report Normal [facility] SURG PATH REQUESTon 05-03-20 Case Report Normal [facility] Comment on above: Result Comment: Surg ical Pathology Report Case: [id number] Authorizing Provider: Ayden Bosch MD Collected: 05/03/2025 03:14 PM Ordering Location[facility] Received: 05/03/2025 03:14 PM [facility] Pathologist: Jadon Bautista MD, PhD Specimen: SURG PATH, Outside Block; Lung Cancer Biomarker Panel (PULMOL FFPE, PD-L1 IHC (22C3, Keytruda); HER2 IHC, NTRK Fusion Panel Performed By: #### S URGP #### [facility] (DEFAULT) [address] [place] [address] Clinical History Request received fro laisha Bosch MD of [facility] for Lung Cancer Biomarker Panel/ PULMOL (FFPE); PD-L1 IHC (22C3, Keytruda), HER2 IHC, and NTRK Fusion Panel on the paraffin block received from . Pre-Op Diagnosis: left lung mass. Normal [facility] Comment on above: Performed By: #### S URGP #### [facility] (DEFAULT) [address] [place] [address] Diagnosis Comments Normal [facility] Comment on above: Result Comment: HER2 immunohistochemical expression (3+) using this assay may be an indication for use of trastuzumab deruxtecan-nxki in NSCLC and other solid tumors (Oncologist 2023Jun 13;29(8):667-671). Correlation with HER2 mutation status is recommended. Performed By: #### S URGP #### [facility] (DEFAULT) [address] [address] Gross Description Normal [facility] Comment on above: Result Comment: The following material(s) are received from , [address] [place] [address], with an identifying surgical pathology report: 1 paraffin block marked A1, labeled [id number]. The paraffin block that was received is submitted to the [facility] histology/IHC laboratory for recutting and additional staining: Lung Cancer Biomarker Panel /PULMOL (FFPE) PULNGS & ALK/MET/ROS FISH; PD-L1 IHC (22C3, Keytruda); Her2 IHC, NTRK Fusion Panel. Material with be returned upon completion of review. Grosser for this case was: Carla House Performed By: #### S URGP #### [facility] (DEFAULT) [address] [place] [address] Microscopic Description Normal [facility] Comment on above: Result Comment: PD-L [...] paraffin-embedded tissues, using clone [id number] (rabbit monoclonal, Thebes) on a Thebes auto-stainer. Membrane staining of tumor cells is [...] developed by and are performed at the [facility], [address], [address], [place] [address]. All tests reported here, except those addressing [...] research. Performed By: #### S URGP #### [facility] (DEFAULT) [address] [place] [address] [address] [facility] Comment on above: Result Comment: Outs jennifer block: [id number] (04/07/2025) A. Left Lung, Mass, Biopsy: PD-L1 [...] EDT Performed By: #### S URGP #### [facility] (DEFAULT) [address] [place] [address] Professional Interpretation Performed at: [facility] Comment on above: Result Comment: [facility] For Immediate Release to Patient's [facility]? Yes [address] [place] [address] Performed By: #### S URGP #### [facility] (DEFAULT) [address] [place] [address] Absolute lymphocyte countOrd ered By: Ayden Bosch on 05-01-2025 Lymphocytes Auto (Unsp spec) [#/Vol] 1.31 10*3/uL 0.83-4.51 Absolute neutrophil countOrd ered By: Ayden Bosch on 05-01-2025 Neutrophils (Bld) [#/Vol] 4.9 10*3/uL 2.0-7.7 Anion gap in Serum or Plasma Ordered By: Ayden Bosch on 05-01-2025 Anion gap [Moles/Vol] 10 mmol/L 5-15 [facility] Automated lymphocyte count a s percentage of total leukocytesOrdered By: Ayden Bosch on 05-01-2025 Lymphocytes/100 WBC Auto (Unsp spec) 17.8 % Low 19-41 BUN/creatinine ratioOrdered By: Ayden Bosch on 05-01-2025 Urea nitrogen/Creatinine [Mass ratio] 9.8 mg/mg Low 10-20 Basophil percentageOrdered B y: Ayden Bosch on 05-01-2025 Basophils/100 WBC (Bld) 0.7 % 0-1 [facility] Bilirubin, totalOrdered By: Ayden Bosch on 05-01-2025 Bilirubin [Mass/Vol] 1.00 mg/dL 0.00-1.30 [facility] CBC W/Diff, Automatedon 04-10 Absolute Lymph 1.31 X10 3/uL Normal 0.83-4.51 Comment on above: Performed By: #### L 500.4050, L504.2610, L100.0100 #### [address] [place], [address] Absolute Neut 4.9 X10 3/uL Normal 2.0-7.7 Comment on above: Performed By: #### L 500.4050, L504.2610, L100.0100 #### [address] [place], [address] Basophils/100 WBC (Bld) 0.7 % Normal 0-1 [facility] Comment on above: Performed By: #### L 500.4050, L504.2610, L100.0100 #### [address] [place], [address] Eosinophils/100 WBC (Bld) 0.8 % Normal 0-5 Comment on above: Performed By: #### L 500.4050, L504.2610, L100.0100 #### [address] [place], [address] Erythrocyte distribution width (RBC) [Ratio] 14.2 % Normal 11.6-14.6 Comment on above: Performed By: #### L 500.4050, L504.2610, L100.0100 #### [address] [place], [address] Hematocrit (Bld) [Volume fraction] 42.2 % Normal 40-54 Comment on above: Performed By: #### L 500.4050, L504.2610, L100.0100 #### [address] [place], [address] Hemoglobin (Bld) [Mass/Vol] 14.6 g/dL Normal 13.0-16. 5 Comment on above: Performed By: #### L 500.4050, L504.2610, L100.0100 #### [address] [place], [address] IG% 0.300 Normal 0.0-0.9 Comment on above: Result Comment: IG% - Immature Granulocytes (promyelocytes, myelocytes andmetamyelocytes) > 1% indicates that a LEFT SHIFT is Present. Performed By: #### L 500.4050, L504.2610, L100.0100 #### [address] [place], [address] Lymphocytes/100 WBC (Bld) 17.8 % Low 19-41 Comment on above: Performed By: #### L 500.4050, L504.2610, L100.0100 #### [address] [place], [address] MCH (RBC) [Entitic mass] 30.7 pg Normal 27.0-32.0 Comment on above: Performed By: #### L 500.4050, L504.2610, L100.0100 #### [address] [place], [address] MCHC (RBC) [Mass/Vol] 34.6 g/dL Normal 32-36 [facility] Comment on above: Performed By: #### L 500.4050, L504.2610, L100.0100 #### [address] [place], [address] MCV (RBC) [Entitic vol] 88.7 fL Normal 80-94 [facility] Comment on above: Performed By: #### L 500.4050, L504.2610, L100.0100 #### [address] [place], [address] Monocytes/100 WBC (Bld) 14.4 % High 0-10 [facility] Comment on above: Performed By: #### L 500.4050, L504.2610, L100.0100 #### [address] [place], [address] Neutrophils/100 WBC (Bld) 66.0 % Normal 47-70 Comment on above: Performed By: #### L 500.4050, L504.2610, L100.0100 #### [address] [place], [address] Nucleated RBC (Bld) [#/Vol] 0 10*3/uL Normal 0-5 Comment on above: Performed By: #### L 500.4050, L504.2610, L100.0100 #### [address] [place], [address] Platelet mean volume (Bld) [Entitic vol] 9.7 fL Normal 6.2-12.0 Comment on above: Performed By: #### L 500.4050, L504.2610, L100.0100 #### [address] [place], [address] Platelets (Bld) [#/Vol] 336 10*3/uL Normal 150-450 Comment on above: Performed By: #### L 500.4050, L504.2610, L100.0100 #### [address] [place], [address] RBC (Bld) [#/Vol] 4.76 10*6/uL Normal 4.6-6.2 [facility] Comment on above: Performed By: #### L 500.4050, L504.2610, L100.0100 #### [address] [place], [address] RDW SD 46.1 fl High 35.1-43.9 Comment on above: Performed By: #### L 500.4050, L504.2610, L100.0100 #### [address] [place], [address] WBC (Bld) [#/Vol] 7.4 10*3/uL Normal 4.4-11.0 [facility] Comment on above: Performed By: #### L 500.4050, L504.2610, L100.0100 #### [address] [place], [address] Carbon dioxide, total [Moles /volume] in Central venous bloodOrdered By: Ayden Bosch on 05-01-2025 CO2 [Moles/Vol] 24.2 mmol/L 21.0-32.0 Chloride assayOrdered By: Terra Bosch on 05-01-2025 Chloride [Moles/Vol] 97 mmol/L Low 98-108 [facility] Comprehensive Metabolic Prof ilon 05-01-2025 Albumin [Mass/Vol] 4.0 g/dL Normal 3.4-4.8 [facility] Comment on above: Performed By: #### L 500.4050, L504.2610, L100.0100 #### [address] [place], [address] Albumin/Globulin [Mass ratio] 1.1 {ratio} Normal 0.9-2.4 Comment on above: Performed By: #### L 500.4050, L504.2610, L100.0100 #### [address] [place], [address] ALK PHOS 106 U/L Normal 40-129 Comment on above: Performed By: #### L 500.4050, L504.2610, L100.0100 #### [address] [place], [address] ALT [Catalytic activity/Vol] 36 U/L Normal <=46 Comment on above: Performed By: #### L 500.4050, L504.2610, L100.0100 #### [address] [place], [address] AST [Catalytic activity/Vol] 52 U/L High <=37 Comment on above: Performed By: #### L 500.4050, L504.2610, L100.0100 #### [address] [place], [address] Bilirubin [Mass/Vol] 1.00 mg/dL Normal 0.00-1.30 [facility] Comment on above: Performed By: #### L 500.4050, L504.2610, L100.0100 #### [address] [place], [address] BUN/CRE 9.8 RATIO Low 10-20 Comment on above: Performed By: #### L 500.4050, L504.2610, L100.0100 #### [address] [place], [address] Calcium [Mass/Vol] 9.3 mg/dL Normal 7.6-11.0 [facility] Comment on above: Performed By: #### L 500.4050, L504.2610, L100.0100 #### [address] [place], [address] Chloride [Moles/Vol] 97 mmol/L Low 98-108 [facility] Comment on above: Performed By: #### L 500.4050, L504.2610, L100.0100 #### [address] [place], [address] CO2 [Moles/Vol] 24.2 mmol/L Normal 21.0-32.0 Comment on above: Performed By: #### L 500.4050, L504.2610, L100.0100 #### [address] [place], [address] Creatinine [Mass/Vol] 0.69 mg/dL Low 0.70-1.20 [facility] Comment on above: Performed By: #### L 500.4050, L504.2610, L100.0100 #### [address] [place], [address] GAP 10 Normal 5-15 Comment on above: Performed By: #### L 500.4050, L504.2610, L100.0100 #### [address] [place], [address] GFR/1.73 sq M.predicted among non-blacks MDRD (S/P/Bld) [Vol rate/Area] 99 mL/min/{1.73_m2} Normal >60 [facility] Comment on above: Result Comment: mL/m in/1.73m2 CKD-EPI Creatinine Equation (2020) Performed By: #### L 500.4050, L504.2610, L100.0100 #### [address] [place], [address] Globulin (S) [Mass/Vol] 3.7 g/dL Normal 2.2-4.2 [facility] Comment on above: Performed By: #### L 500.4050, L504.2610, L100.0100 #### [address] [place], [address] Glucose [Mass/Vol] 91 mg/dL Normal 70-99 [facility] Comment on above: Performed By: #### L 500.4050, L504.2610, L100.0100 #### [address] [place], [address] Potassium [Moles/Vol] 4.8 mmol/L Normal 3.3-5.1 [facility] Comment on above: Performed By: #### L 500.4050, L504.2610, L100.0100 #### [address] [place], [address] Sodium [Moles/Vol] 132 mmol/L Low 133-145 [facility] Comment on above: Performed By: #### L 500.4050, L504.2610, L100.0100 #### [address] [place], [address] T PROT 7.7 g/dL Normal 5.9-8.4 Comment on above: Performed By: #### L 500.4050, L504.2610, L100.0100 #### [address] [place], [address] Urea nitrogen [Mass/Vol] 7 mg/dL Normal 4-19 Comment on above: Performed By: #### L 500.4050, L504.2610, L100.0100 #### [address] [place], [place], [address] Eosinophil percentageOrdered By: [facility] on 05-01-2025 Eosinophils/100 WBC (Bld) 0.8 % 0-5 Erythrocyte distribution wid th ratioOrdered By: [facility] on 05-01-2025 Erythrocyte distribution width (RBC) [Ratio] 14.2 % 11.6-14.6 Erythrocyte distribution wid th standard deviationOrdered By: [facility] on 05-01-2025 Erythrocyte distribution width (RBC) [Ratio] 46.1 fl High 35.1-43.9 Glomerular filtration rate ( GFR) estimation/1.73 sq m using serum, plasma, or whole bOrdered By: [facility] on 05-01-2025 GFR/1.73 sq M.predicted among non-blacks MDRD (S/P/Bld) [Vol rate/Area] 99 mL/min/{1.73_m2} >60 [facility] Comment on above: mL/min/1.73m2 CKD-EP I Creatinine Equation (2020) Hematocrit Auto (Bld) [Volum e fraction]Ordered By: [facility] on 05-01-2025 Hematocrit (Bld) [Volume fraction] 42.2 % 40-54 Hemoglobin measurementOrdere d By: [facility] on 05-01-2025 Hemoglobin (Bld) [Mass/Vol] 14.6 g/dL 13.0-16. 5 Immature granulocytes/100 WB C Auto (Bld)Ordered By: [facility] on 05-01-2025 Immature granulocytes/100 WBC (Bld) 0.300 % 0.0-0.9 Comment on above: IG% - Immature Granu locytes (promyelocytes, myelocytes and metamyelocytes) > 1% indicates that a LEFT SHIFT is Present. LDHon 05-01-2025 LDH 188 U/L Normal 87-241 Comment on above: Order Comment: 1 Performed By: #### L 500.4050, L504.2610, L100.0100 #### [address] [place], [address] Laboratory - Chemistry and C hemistry - challengeOrdered By: Ayden Bosch on 05-01-2025 AST [Catalytic activity/Vol] 52 U/L High <38 Lactate dehydrogenase (LDH) measurementOrdered By: Ayden Bosch on 05-01-2025 LDH [Catalytic activity/Vol] 188 U/L 87-241 MCV (mean corpuscular volume ) determinationOrdered By: Ayden Bosch on 05-01-2025 MCV (RBC) [Entitic vol] 88.7 fL 80-94 [facility] Mean corpuscular hemoglobin (MCH) determinationOrdered By: Ayden oBsch on 05-01-2025 MCH (RBC) [Entitic mass] 30.7 pg 27.0-32.0 Mean corpuscular hemoglobin concentration (MCHC) determinationOrdered By: Ayden Bosch on 05-01-2025 MCHC (RBC) [Mass/Vol] 34.6 g/dL 32-36 [facility] Mean platelet volume determi nationOrdered By: Ayden Bosch on 05-01-2025 Platelet mean volume (Bld) [Entitic vol] 9.7 fL 6.2-12.0 Monocyte percentageOrdered B y: Ayden Bosch on 05-01-2025 Monocytes/100 WBC (Bld) 14.4 % High 0-10 [facility] Neutrophil percentageOrdered By: Ayden Bosch on 05-01-2025 Neutrophils/100 WBC (Bld) 66.0 % 47-70 Nucleated red blood cell per centageOrdered By: Ayden Bosch on 05-01-2025 Nucleated RBC/100 WBC (Bld) [Ratio] 0 % 0-5 Oncology Visit Reporton 04-10 Oncology Visit Report Normal [facility] Platelet countOrdered By: Terra Bosch on 05-01-2025 Platelets (Bld) [#/Vol] 336 10*3/uL 150-450 Potassium measurement (mass/ volume)Ordered By: Ayden Bosch on 05-01-2025 Potassium (Unsp spec) [Mass/Vol] 4.8 mmol/L 3.3-5.1 RBC Auto (Bld) [#/Vol]Ordere d By: Ayden Bosch on 05-01-2025 RBC (Bld) [#/Vol] 4.76 10*6/uL 4.6-6.2 [facility] Serum creatinine measurement (mass/volume)Ordered By: Ayden Bosch on 05-01-2025 Creatinine [Mass/Vol] 0.69 mg/dL Low 0.70-1.20 [facility] Serum globulin measurementOr dered By: Ayden Bosch on 05-01-2025 Globulin (S) [Mass/Vol] 3.7 g/dL 2.2-4.2 [facility] Serum glucose measurement (m ass/volume)Ordered By: Ayden Bosch on 05-01-2025 Glucose [Mass/Vol] 91 mg/dL 70-99 [facility] Serum or plasma alanine champagne otransferase (ALT) measurementOrdered By: Ayden Bosch on 05-01-2025 ALT [Catalytic activity/Vol] 36 U/L <47 Serum or plasma albumin francoise urement (mass/volume)Ordered By: Ayden Bosch on 05-01-2025 Albumin [Mass/Vol] 4.0 g/dL 3.4-4.8 [facility] Serum or plasma albumin/glob ulin mass ratioOrdered By: Ayden Bosch on 05-01-2025 Albumin/Globulin [Mass ratio] 1.1 {ratio} 0.9-2.4 Serum or plasma alkaline mariola sphatase measurementOrdered By: Ayden Bosch on 05-01-2025 ALP [Catalytic activity/Vol] 106 U/L 40-129 Serum or plasma calcium francoise urement (mass/volume)Ordered By: Ayden Bosch on 05-01-2025 Calcium [Mass/Vol] 9.3 mg/dL 7.6-11.0 [facility] Serum or plasma urea nitroge n measurement (mass/volume)Ordered By: Ayden Bosch on 05-01-2025 Urea nitrogen [Mass/Vol] 7 mg/dL 4-19 Sodium levelOrdered By: Cam Bosch on 05-01-2025 Sodium [Moles/Vol] 132 mmol/L Low 133-145 [facility] Total proteinOrdered By: Ramón Bosch on 05-01-2025 Protein [Mass/Vol] 7.7 g/dL 5.9-8.4 [facility] White blood cell (WBC) count Ordered By: Ayden Bosch on 05-01-2025 WBC (Bld) [#/Vol] 7.4 10*3/uL 4.4-11.0 [facility] Positron emission tomography scan reportOrdered By: Shaw Whitman on 04-27-2025 PT Unspecified body region [facility] Services [address] [place] [address] PET/CT Tumor Base -Thigh Init MR#: [id number] Acct: [id number] Name: PATRICK ANDRES Rep #: [id number] : 1955 M 70 From: Pet er Peer DO PCP: JESUS CALLAHAN 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 Reading Location: [facility] CC: FRIEDA Ledezma; JESUS CALLAHAN ~ History Instructor: Signed PET/CT Tumor Base -Thigh Ini ton 04-25-2025 PET/CT Tumor Base -Thigh Init Normal Pulmonary Visit Reporton Pulmonary Visit Report Normal [facility] Chest PA and Lateralon 04-10 Chest PA and Lateral Normal [facility] Chest PA and Lateral Normal [facility] Chest PA and Lateralon 04-09 Chest PA and Lateral Normal [facility] Absolute lymphocyte countOrd ered By: Michellemago Do on 04-08-2025 Lymphocytes Auto (Unsp spec) [#/Vol] 1.94 10*3/uL 0.83-4.51 Absolute neutrophil countOrd ered By: Michelle Hi on 04-08-2025 Neutrophils (Bld) [#/Vol] 3.3 10*3/uL 2.0-7.7 Anion gap in Serum or Plasma Ordered By: Michelle Do on 04-08-2025 Anion gap [Moles/Vol] 10 mmol/L - [facility] Automated lymphocyte count a s percentage of total leukocytesOrdered By: Michellemago Do on 04-08-2025 Lymphocytes/100 WBC Auto (Unsp spec) 30.2 % BUN/creatinine ratioOrdered By: Michelle Do on 04-08-2025 Urea nitrogen/Creatinine [Mass ratio] 15.4 mg/mg - Basic Metabolic Profile (BMP )on 04-08-2025 BUN/CRE 15.4 RATIO Normal - Comment on above: Performed By: #### L 500.2500, L100.0100 #### [address] [place], [address] Calcium [Mass/Vol] 8.9 mg/dL Normal 7.6-11.0 [facility] Comment on above: Performed By: #### L 500.2500, L100.0100 #### [address] [place], [address] Chloride [Moles/Vol] 100 mmol/L Normal 98-108 [facility] Comment on above: Performed By: #### L 500.2500, L100.0100 #### [address] [place], [address] CO2 [Moles/Vol] 23.3 mmol/L Normal 21.0-32.0 Comment on above: Performed By: #### L 500.2500, L100.0100 #### [address] [place], [address] Creatinine [Mass/Vol] 0.70 mg/dL Normal 0.70-1.20 [facility] Comment on above: Performed By: #### L 500.2500, L100.0100 #### [address] [place], [address] ECRCL 64.49 ml/min Normal 50-250 Comment on above: Performed By: #### L 500.2500, L100.0100 #### [address] [place], [address] GAP 10 Normal 5-15 Comment on above: Performed By: #### L 500.2500, L100.0100 #### [address] [place], [address] GFR/1.73 sq M.predicted among non-blacks MDRD (S/P/Bld) [Vol rate/Area] 99 mL/min/{1.73_m2} Normal >60 [facility] Comment on above: Result Comment: mL/m in/1.73m2 CKD-EPI Creatinine Equation (2020) Performed By: #### L 500.2500, L100.0100 #### [address] [place], [address] Glucose [Mass/Vol] 82 mg/dL Normal 70-99 [facility] Comment on above: Performed By: #### L 500.2500, L100.0100 #### [address] [place], [address] Potassium [Moles/Vol] 4.3 mmol/L Normal 3.3-5.1 [facility] Comment on above: Performed By: #### L 500.2500, L100.0100 #### [address] [place], [address] Sodium [Moles/Vol] 133 mmol/L Normal 133-145 [facility] Comment on above: Performed By: #### L 500.2500, L100.0100 #### [address] [place], [address] Urea nitrogen [Mass/Vol] 11 mg/dL Normal 4-19 Comment on above: Performed By: #### L 500.2500, L100.0100 #### [address] [place], [address] Basophil percentageOrdered B y: Michelle Do on 04-08-2025 Basophils/100 WBC (Bld) 0.5 % 0-1 [facility] CBC W/Diff, Automatedon 03-11 Absolute Lymph 1.94 X10 3/uL Normal 0.83-4.51 Comment on above: Performed By: #### L 500.2500, L100.0100 #### [address] [place], [address] Absolute Neut 3.3 X10 3/uL Normal 2.0-7.7 Comment on above: Performed By: #### L 500.2500, L100.0100 #### [address] [place], [address] Basophils/100 WBC (Bld) 0.5 % Normal 0-1 [facility] Comment on above: Performed By: #### L 500.2500, L100.0100 #### [address] [place], [address] Eosinophils/100 WBC (Bld) 3.1 % Normal 0-5 Comment on above: Performed By: #### L 500.2500, L100.0100 #### [address] [place], [address] Erythrocyte distribution width (RBC) [Ratio] 14.4 % Normal 11.6-14.6 Comment on above: Performed By: #### L 500.2500, L100.0100 #### [address] [place], [address] Hematocrit (Bld) [Volume fraction] 40.2 % Normal 40-54 Comment on above: Performed By: #### L 500.2500, L100.0100 #### [address] [place], [address] Hemoglobin (Bld) [Mass/Vol] 13.9 g/dL Normal 13.0-16. 5 Comment on above: Performed By: #### L 500.2500, L100.0100 #### [address] [place], [address] IG% 0.300 Normal 0.0-0.9 Comment on above: Result Comment: IG% - Immature Granulocytes (promyelocytes, myelocytes andmetamyelocytes) > 1% indicates that a LEFT SHIFT is Present. Performed By: #### L 500.2500, L100.0100 #### [address] [place], [address] Lymphocytes/100 WBC (Bld) 30.2 % Normal 19-41 Comment on above: Performed By: #### L 500.2500, L100.0100 #### [address] [place], [address] MCH (RBC) [Entitic mass] 31.0 pg Normal 27.0-32.0 Comment on above: Performed By: #### L 500.2500, L100.0100 #### [address] [place], [address] MCHC (RBC) [Mass/Vol] 34.6 g/dL Normal 32-36 [facility] Comment on above: Performed By: #### L 500.2500, L100.0100 #### [address] [place], [address] MCV (RBC) [Entitic vol] 89.5 fL Normal 80-94 [facility] Comment on above: Performed By: #### L 500.2500, L100.0100 #### [address] [place], [address] Monocytes/100 WBC (Bld) 14.3 % High 0-10 [facility] Comment on above: Performed By: #### L 500.2500, L100.0100 #### [id number] [place], [address] Neutrophils/100 WBC (Bld) 51.6 % Normal 47-70 Comment on above: Performed By: #### L 500.2500, L100.0100 #### [id number] [place], [address] Nucleated RBC (Bld) [#/Vol] 0 10*3/uL Normal 0-5 Comment on above: Performed By: #### L 500.2500, L100.0100 #### [id number] [place] [place], [address] Platelet mean volume (Bld) [Entitic vol] 10.2 fL Normal 6.2-12.0 Comment on above: Performed By: #### L 500.2500, L100.0100 #### [id number] [place], [address] Platelets (Bld) [#/Vol] 286 10*3/uL Normal 150-450 Comment on above: Performed By: #### L 500.2500, L100.0100 #### [id number] [place], [address] RBC (Bld) [#/Vol] 4.49 10*6/uL Low 4.6-6.2 [facility] Comment on above: Performed By: #### L 500.2500, L100.0100 #### [id number] [place], [address] RDW SD 47.3 fl High 35.1-43.9 Comment on above: Performed By: #### L 500.2500, L100.0100 #### [id number] [place], [address] WBC (Bld) [#/Vol] 6.4 10*3/uL Normal 4.4-11.0 [facility] Comment on above: Performed By: #### L 500.2500, L100.0100 #### [address] [place], [address] Carbon dioxide, total [Moles /volume] in Central venous bloodOrdered By: Michelle Do on 04-08-2025 CO2 [Moles/Vol] 23.3 mmol/L 21.0-32.0 Chest PA and Lateralon 04-08 Chest PA and Lateral Normal [facility] Chloride assayOrdered By: Hunter Do on 04-08-2025 Chloride [Moles/Vol] 100 mmol/L 98-108 [facility] Eosinophil percentageOrdered By: Michelle Do on 04-08-2025 Eosinophils/100 WBC (Bld) 3.1 % 0-5 Erythrocyte distribution wid th ratioOrdered By: Michelle Do on 04-08-2025 Erythrocyte distribution width (RBC) [Ratio] 14.4 % 11.6-14.6 Erythrocyte distribution wid th standard deviationOrdered By: Michelle Do on 04-08-2025 Erythrocyte distribution width (RBC) [Ratio] 47.3 fl High 35.1-43.9 Glomerular filtration rate ( GFR) estimation/1.73 sq m using serum, plasma, or whole bOrdered By: Michelle Do on 04-08-2025 GFR/1.73 sq M.predicted among non-blacks MDRD (S/P/Bld) [Vol rate/Area] 99 mL/min/{1.73_m2} >60 [facility] Comment on above: mL/min/1.73m2 CKD-EP I Creatinine Equation (2020) Hematocrit Auto (Bld) [Volum e fraction]Ordered By: Michelle Do 04-08-2025 Hematocrit (Bld) [Volume fraction] 40.2 % 40-54 Hemoglobin measurementOrdere d By: Michelle Do 04-08-2025 Hemoglobin (Bld) [Mass/Vol] 13.9 g/dL 13.0-16. 5 Immature granulocytes/100 WB C Auto (Bld)Ordered By: Michelle Do 04-08-2025 Immature granulocytes/100 WBC (Bld) 0.300 % 0.0-0.9 Comment on above: IG% - Immature Granu locytes (promyelocytes, myelocytes and metamyelocytes) > 1% indicates that a LEFT SHIFT is Present. MCV (mean corpuscular volume ) determinationOrdered By: Michelle Do 04-08-2025 MCV (RBC) [Entitic vol] 89.5 fL 80-94 [facility] Mean corpuscular hemoglobin (MCH) determinationOrdered By: Michelle Do on 04-08-2025 MCH (RBC) [Entitic mass] 31.0 pg 27.0-32.0 Mean corpuscular hemoglobin concentration (MCHC) determinationOrdered By: Michelle Do on 04-08-2025 MCHC (RBC) [Mass/Vol] 34.6 g/dL 32-36 [facility] Mean platelet volume determi nationOrdered By: Michelle Do on 04-08-2025 Platelet mean volume (Bld) [Entitic vol] 10.2 fL 6.2-12.0 Monocyte percentageOrdered B y: Michelle Do on 04-08-2025 Monocytes/100 WBC (Bld) 14.3 % High 0-10 [facility] Neutrophil percentageOrdered By: Michelle Do on 04-08-2025 Neutrophils/100 WBC (Bld) 51.6 % 47-70 Nucleated red blood cell per centageOrdered By: Michelle Do on 04-08-2025 Nucleated RBC/100 WBC (Bld) [Ratio] 0 % 0-5 Platelet countOrdered By: Na hunter Do on 04-08-2025 Platelets (Bld) [#/Vol] 286 10*3/uL 150-450 Potassium measurement (mass/ volume)Ordered By: Michelle Do on 04-08-2025 Potassium (Unsp spec) [Mass/Vol] 4.3 mmol/L 3.3-5.1 RBC Auto (Bld) [#/Vol]Ordere d By: Michelle Do on 04-08-2025 RBC (Bld) [#/Vol] 4.49 10*6/uL Low 4.6-6.2 [facility] Serum creatinine measurement (mass/volume)Ordered By: Michelle Do on 04-08-2025 Creatinine [Mass/Vol] 0.70 mg/dL 0.70-1.20 [facility] Serum glucose measurement (m ass/volume)Ordered By: Michelle Do on 04-08-2025 Glucose [Mass/Vol] 82 mg/dL 70-99 [facility] Serum or plasma calcium francoise urement (mass/volume)Ordered By: Michelle Do on 04-08-2025 Calcium [Mass/Vol] 8.9 mg/dL 7.6-11.0 [facility] Serum or plasma urea nitroge n measurement (mass/volume)Ordered By: Michelle Do on 04-08-2025 Urea nitrogen [Mass/Vol] 11 mg/dL 4-19 Sodium levelOrdered By: Michelle Do on 04-08-2025 Sodium [Moles/Vol] 133 mmol/L 133-145 [facility] White blood cell (WBC) count Ordered By: Michelle Do on 04-08-2025 WBC (Bld) [#/Vol] 6.4 10*3/uL 4.4-11.0 [facility] Absolute lymphocyte countOrd ered By: Stefan Shultz on 04-07-2025 Lymphocytes Auto (Unsp spec) [#/Vol] 1.62 10*3/uL 0.83-4.51 Absolute lymphocyte countOrd ered By: Saulo Barahona on 04-07-2025 Lymphocytes Auto (Unsp spec) [#/Vol] 1.95 10*3/uL 0.83-4.51 Absolute neutrophil countOrd ered By: Stefan Shultz on 04-07-2025 Neutrophils (Bld) [#/Vol] 5.4 10*3/uL 2.0-7.7 Absolute neutrophil countOrd ered By: Saulo Barahona on 04-07-2025 Neutrophils (Bld) [#/Vol] 4.6 10*3/uL 2.0-7.7 Activated partial thrombopla stin time (aPTT) in platelet poor plasma by coagulation aOrdered By: Saulo Barahona on 04-07-2025 aPTT Coag (PPP) [Time] 31.6 s 24.1-36.2 [facility] Anion gap in Serum or Plasma Ordered By: Stefan Shultz on 04-07-2025 Anion gap [Moles/Vol] 11 mmol/L 5-15 [facility] Automated lymphocyte count a s percentage of total leukocytesOrdered By: Stefan Shultz on 04-07-2025 Lymphocytes/100 WBC Auto (Unsp spec) 20.0 % Automated lymphocyte count a s percentage of total leukocytesOrdered By: Saulo Barahona on 04-07-2025 Lymphocytes/100 WBC Auto (Unsp spec) 24.4 % BUN/creatinine ratioOrdered By: Stefan Shultz on 04-07-2025 Urea nitrogen/Creatinine [Mass ratio] 12.7 mg/mg 08-28 Basic Metabolic Profile (BMP )on 04-07-2025 BUN/CRE 12.7 RATIO Normal 08-28 Comment on above: Performed By: #### L 100.0100, L500.2500 #### [id number] [place], [address] Calcium [Mass/Vol] 8.9 mg/dL Normal 7.6-11.0 [facility] Comment on above: Performed By: #### L 100.0100, L500.2500 #### [id number] [place], [address] Chloride [Moles/Vol] 100 mmol/L Normal 98-108 [facility] Comment on above: Performed By: #### L 100.0100, L500.2500 #### [id number] [place], [address] CO2 [Moles/Vol] 21.1 mmol/L Normal 21.0-32.0 Comment on above: Performed By: #### L 100.0100, L500.2500 #### [id number] [place], [address] Creatinine [Mass/Vol] 0.62 mg/dL Low 0.70-1.20 [facility] Comment on above: Performed By: #### L 100.0100, L500.2500 #### [address] [place], [address] ECRCL 61.74 ml/min Normal 50-250 Comment on above: Performed By: #### L 100.0100, L500.2500 #### [id number] [place], [address] GAP 11 Normal 5-15 Comment on above: Performed By: #### L 100.0100, L500.2500 #### [address] [place], [address] GFR/1.73 sq M.predicted among non-blacks MDRD (S/P/Bld) [Vol rate/Area] 103 mL/min/{1.73_m2} Normal >60 [facility] Comment on above: Result Comment: mL/m in/1.73m2 CKD-EPI Creatinine Equation (2020) Performed By: #### L 100.0100, L500.2500 #### [id number] [place], [address] Glucose [Mass/Vol] 84 mg/dL Normal 70-99 [facility] Comment on above: Performed By: #### L 100.0100, L500.2500 #### [id number] [place], [address] Potassium [Moles/Vol] 4.5 mmol/L Normal 3.3-5.1 [facility] Comment on above: Result Comment: Hemo lysis present, Results??could be affected.?? Performed By: #### L 100.0100, L500.2500 #### [id number] [place], [address] Sodium [Moles/Vol] 132 mmol/L Low 133-145 [facility] Comment on above: Performed By: #### L 100.0100, L500.2500 #### [id number] [place], [address] Urea nitrogen [Mass/Vol] 8 mg/dL Normal 4-19 Comment on above: Performed By: #### L 100.0100, L500.2500 #### [id number] [place], [address] Basophil percentageOrdered B y: Stefan Shultz on 04-07-2025 Basophils/100 WBC (Bld) 0.6 % 0-1 [facility] Basophil percentageOrdered B y: Saulo Barahona on 04-07-2025 Basophils/100 WBC (Bld) 1.0 % 0-1 [facility] Biopsy/Inj or Needle Placeme nton 04-07-2025 Biopsy/Inj or Needle Placement Normal CBC W/Diff, Automatedon 03-11 Absolute Lymph 1.62 X10 3/uL Normal 0.83-4.51 Comment on above: Performed By: #### L 100.0100, L500.2500 #### [address] [place], [address] Absolute Neut 5.4 X10 3/uL Normal 2.0-7.7 Comment on above: Performed By: #### L 100.0100, L500.2500 #### [id number] [place], [address] Basophils/100 WBC (Bld) 0.6 % Normal 0-1 [facility] Comment on above: Performed By: #### L 100.0100, L500.2500 #### [address] [place], [address] Eosinophils/100 WBC (Bld) 0.7 % Normal 0-5 Comment on above: Performed By: #### L 100.0100, L500.2500 #### [id number] [place], [address] Erythrocyte distribution width (RBC) [Ratio] 14.3 % Normal 11.6-14.6 Comment on above: Performed By: #### L 100.0100, L500.2500 #### [address] [place], [address] Hematocrit (Bld) [Volume fraction] 41.7 % Normal 40-54 Comment on above: Performed By: #### L 100.0100, L500.2500 #### [address] [place], [address] Hemoglobin (Bld) [Mass/Vol] 14.5 g/dL Normal 13.0-16. 5 Comment on above: Performed By: #### L 100.0100, L500.2500 #### [address] [place], [address] IG% 0.500 Normal 0.0-0.9 Comment on above: Result Comment: IG% - Immature Granulocytes (promyelocytes, myelocytes andmetamyelocytes) > 1% indicates that a LEFT SHIFT is Present. Performed By: #### L 100.0100, L500.2500 #### [id number] [place], [address] Lymphocytes/100 WBC (Bld) 20.0 % Normal 19-41 Comment on above: Performed By: #### L 100.0100, L500.2500 #### [address] [place], [address] MCH (RBC) [Entitic mass] 30.5 pg Normal 27.0-32.0 Comment on above: Performed By: #### L 100.0100, L500.2500 #### [id number] [place], [address] MCHC (RBC) [Mass/Vol] 34.8 g/dL Normal 32-36 [facility] Comment on above: Performed By: #### L 100.0100, L500.2500 #### [address] [place], [address] MCV (RBC) [Entitic vol] 87.6 fL Normal 80-94 [facility] Comment on above: Performed By: #### L 100.0100, L500.2500 #### [address] [place], [address] Monocytes/100 WBC (Bld) 12.0 % High 0-10 [facility] Comment on above: Performed By: #### L 100.0100, L500.2500 #### [address] [place], [address] Neutrophils/100 WBC (Bld) 66.2 % Normal 47-70 Comment on above: Performed By: #### L 100.0100, L500.2500 #### [address] [place], [address] Nucleated RBC (Bld) [#/Vol] 0 10*3/uL Normal 0-5 Comment on above: Performed By: #### L 100.0100, L500.2500 #### [id number] [place], [address] Platelet mean volume (Bld) [Entitic vol] 10.0 fL Normal 6.2-12.0 Comment on above: Performed By: #### L 100.0100, L500.2500 #### [address] [place], [address] Platelets (Bld) [#/Vol] 309 10*3/uL Normal 150-450 Comment on above: Performed By: #### L 100.0100, L500.2500 #### [address] [place], [address] RBC (Bld) [#/Vol] 4.76 10*6/uL Normal 4.6-6.2 [facility] Comment on above: Performed By: #### L 100.0100, L500.2500 #### [address] [place], [address] RDW SD 46.2 fl High 35.1-43.9 Comment on above: Performed By: #### L 100.0100, L500.2500 #### [address] [place], [address] WBC (Bld) [#/Vol] 8.1 10*3/uL Normal 4.4-11.0 [facility] Comment on above: Performed By: #### L 100.0100, L500.2500 #### [address] [place], [address] Absolute Lymph 1.95 X10 3/uL Normal 0.83-4.51 Comment on above: Performed By: #### L 100.0100, L300.3900, L300.4310 #### [address] [place], [address] Absolute Neut 4.6 X10 3/uL Normal 2.0-7.7 Comment on above: Performed By: #### L 100.0100, L300.3900, L300.4310 #### [address] [place], [address] Basophils/100 WBC (Bld) 1.0 % Normal 0-1 [facility] Comment on above: Performed By: #### L 100.0100, L300.3900, L300.4310 #### [address] [place], [address] Eosinophils/100 WBC (Bld) 1.4 % Normal 0-5 Comment on above: Performed By: #### L 100.0100, L300.3900, L300.4310 #### [address] [place], [address] Erythrocyte distribution width (RBC) [Ratio] 14.3 % Normal 11.6-14.6 Comment on above: Performed By: #### L 100.0100, L300.3900, L300.4310 #### [address] [place], [address] Hematocrit (Bld) [Volume fraction] 44.7 % Normal 40-54 Comment on above: Performed By: #### L 100.0100, L300.3900, L300.4310 #### [address] [place], [address] Hemoglobin (Bld) [Mass/Vol] 15.6 g/dL Normal 13.0-16. 5 Comment on above: Performed By: #### L 100.0100, L300.3900, L300.4310 #### [address] [place], [address] IG% 0.400 Normal 0.0-0.9 Comment on above: Result Comment: IG% - Immature Granulocytes (promyelocytes, myelocytes andmetamyelocytes) > 1% indicates that a LEFT SHIFT is Present. Performed By: #### L 100.0100, L300.3900, L300.4310 #### [address] [place], [address] Lymphocytes/100 WBC (Bld) 24.4 % Normal 19-41 Comment on above: Performed By: #### L 100.0100, L300.3900, L300.4310 #### [address] [place], [address] MCH (RBC) [Entitic mass] 30.6 pg Normal 27.0-32.0 Comment on above: Performed By: #### L 100.0100, L300.3900, L300.4310 #### [address] [place], [address] MCHC (RBC) [Mass/Vol] 34.9 g/dL Normal 32-36 [facility] Comment on above: Performed By: #### L 100.0100, L300.3900, L300.4310 #### [address] [place], [address] MCV (RBC) [Entitic vol] 87.8 fL Normal 80-94 [facility] Comment on above: Performed By: #### L 100.0100, L300.3900, L300.4310 #### [id number] [place], [address] Monocytes/100 WBC (Bld) 15.2 % High 0-10 [facility] Comment on above: Performed By: #### L 100.0100, L300.3900, L300.4310 #### [address] [place], [address] Neutrophils/100 WBC (Bld) 57.6 % Normal 47-70 Comment on above: Performed By: #### L 100.0100, L300.3900, L300.4310 #### [address] [place], [address] Nucleated RBC (Bld) [#/Vol] 0 10*3/uL Normal 0-5 Comment on above: Performed By: #### L 100.0100, L300.3900, L300.4310 #### [id number] [place], [address] Platelet mean volume (Bld) [Entitic vol] 9.8 fL Normal 6.2-12.0 Comment on above: Performed By: #### L 100.0100, L300.3900, L300.4310 #### [id number] [place], [address] Platelets (Bld) [#/Vol] 319 10*3/uL Normal 150-450 Comment on above: Performed By: #### L 100.0100, L300.3900, L300.4310 #### [address] [place], [address] RBC (Bld) [#/Vol] 5.09 10*6/uL Normal 4.6-6.2 [facility] Comment on above: Performed By: #### L 100.0100, L300.3900, L300.4310 #### [id number] [place], [address] RDW SD 45.9 fl High 35.1-43.9 Comment on above: Performed By: #### L 100.0100, L300.3900, L300.4310 #### [address] [place], [address] WBC (Bld) [#/Vol] 8.0 10*3/uL Normal 4.4-11.0 [facility] Comment on above: Performed By: #### L 100.0100, L300.3900, L300.4310 #### [id number] [place], [address] Carbon dioxide, total [Moles /volume] in Central venous bloodOrdered By: Stefan Shultz on 04-07-2025 CO2 [Moles/Vol] 21.1 mmol/L 21.0-32.0 Chest Insp/Exp 2 Viewon 03-11 Chest Insp/Exp 2 View Normal [facility] Chest Insp/Exp 2 View Normal [facility] Chloride assayOrdered By: Corazon Shultz on 04-07-2025 Chloride [Moles/Vol] 100 mmol/L 98-108 [facility] Consultation - Surgicalon Consultation - Surgical Normal [facility] Emergency Department Summary on 04-07-2025 Emergency Department Summary Normal Eosinophil percentageOrdered By: Stefan Shultz on 04-07-2025 Eosinophils/100 WBC (Bld) 0.7 % 0-5 Eosinophil percentageOrdered By: Saulo Barahona on 04-07-2025 Eosinophils/100 WBC (Bld) 1.4 % 0-5 Erythrocyte distribution wid th ratioOrdered By: Stefan Shultz on 04-07-2025 Erythrocyte distribution width (RBC) [Ratio] 14.3 % 11.6-14.6 Erythrocyte distribution wid th ratioOrdered By: Saulo Barahona on 04-07-2025 Erythrocyte distribution width (RBC) [Ratio] 14.3 % 11.6-14.6 Erythrocyte distribution wid th standard deviationOrdered By: Stefan Shultz on 04-07-2025 Erythrocyte distribution width (RBC) [Ratio] 46.2 fl High 35.1-43.9 Erythrocyte distribution wid th standard deviationOrdered By: Saulo Barahona on 04-07-2025 Erythrocyte distribution width (RBC) [Ratio] 45.9 fl High 35.1-43.9 Glomerular filtration rate ( GFR) estimation/1.73 sq m using serum, plasma, or whole bOrdered By: Stefan Shultz on 04-07-2025 GFR/1.73 sq M.predicted among non-blacks MDRD (S/P/Bld) [Vol rate/Area] 103 mL/min/{1.73_m2} >60 [facility] Comment on above: mL/min/1.73m2 CKD-EP I Creatinine Equation (2020) H AND P Exam - Hospitaliston 04-07-2025 H&P Exam - Hospitalist Normal [facility] Hematocrit Auto (Bld) [Volum e fraction]Ordered By: Stefan Shultz on 04-07-2025 Hematocrit (Bld) [Volume fraction] 41.7 % 40-54 Hematocrit Auto (Bld) [Volum e fraction]Ordered By: Saulo Barahona on 04-07-2025 Hematocrit (Bld) [Volume fraction] 44.7 % 40-54 Hemoglobin measurementOrdere d By: Stefan Shultz on 04-07-2025 Hemoglobin (Bld) [Mass/Vol] 14.5 g/dL 13.0-16. 5 Hemoglobin measurementOrdere d By: Saulo Barahona on 04-07-2025 Hemoglobin (Bld) [Mass/Vol] 15.6 g/dL 13.0-16. 5 Immature granulocytes/100 WB C Auto (Bld)Ordered By: Stefan Shultz on 04-07-2025 Immature granulocytes/100 WBC (Bld) 0.500 % 0.0-0.9 Comment on above: IG% - Immature Granu locytes (promyelocytes, myelocytes and metamyelocytes) > 1% indicates that a LEFT SHIFT is Present. Immature granulocytes/100 WB C Auto (Bld)Ordered By: Saulo Barahona on 04-07-2025 Immature granulocytes/100 WBC (Bld) 0.400 % 0.0-0.9 Comment on above: IG% - Immature Granu locytes (promyelocytes, myelocytes and metamyelocytes) > 1% indicates that a LEFT SHIFT is Present. Immunohistochemical Stainson 04-07-2025 Immunohistochemical Stains Normal Comment on above: Performed By: #### P [facility] #### [address] [place], [place], [id number] International normalized rat io (INR) calculationOrdered By: Saulo Barahona on 04-07-2025 INR Coag (Bld) [Relative time] 1.0 {INR} MCV (mean corpuscular volume ) determinationOrdered By: Stefan Shultz on 04-07-2025 MCV (RBC) [Entitic vol] 87.6 fL 80-94 [facility] MCV (mean corpuscular volume ) determinationOrdered By: Saulo Barahona on 04-07-2025 MCV (RBC) [Entitic vol] 87.8 fL 80-94 [facility] Mean corpuscular hemoglobin (MCH) determinationOrdered By: Stefan Shultz on 04-07-2025 MCH (RBC) [Entitic mass] 30.5 pg 27.0-32.0 Mean corpuscular hemoglobin (MCH) determinationOrdered By: Saulo Barahona on 04-07-2025 MCH (RBC) [Entitic mass] 30.6 pg 27.0-32.0 Mean corpuscular hemoglobin concentration (MCHC) determinationOrdered By: Stefan Martinone on 04-07-2025 MCHC (RBC) [Mass/Vol] 34.8 g/dL 32-36 [facility] Mean corpuscular hemoglobin concentration (MCHC) determinationOrdered By: Saulo Barahona on 04-07-2025 MCHC (RBC) [Mass/Vol] 34.9 g/dL -36 [facility] Mean platelet volume determi nationOrdered By: Stefan Shultz on 04-07-2025 Platelet mean volume (Bld) [Entitic vol] 10.0 fL 6.2-12.0 Mean platelet volume determi nationOrdered By: Saulo Barahona on 04-07-2025 Platelet mean volume (Bld) [Entitic vol] 9.8 fL 6.2-12.0 Monocyte percentageOrdered B y: Stefan Shultz on 04-07-2025 Monocytes/100 WBC (Bld) 12.0 % High 0-10 [facility] Monocyte percentageOrdered B y: Saulo Barahona on 04-07-2025 Monocytes/100 WBC (Bld) 15.2 % High 0-10 [facility] Neutrophil percentageOrdered By: Stefan Martinone on 04-07-2025 Neutrophils/100 WBC (Bld) 66.2 % 47-70 Neutrophil percentageOrdered By: Saulo Dowdi on 04-07-2025 Neutrophils/100 WBC (Bld) 57.6 % 47-70 Nucleated red blood cell per centageOrdered By: Stefan Shultz on 04-07-2025 Nucleated RBC/100 WBC (Bld) [Ratio] 0 % 0-5 Nucleated red blood cell per centageOrdered By: Saulo Barahona on 04-07-2025 Nucleated RBC/100 WBC (Bld) [Ratio] 0 % 0-5 Partial Thromboplast Timeon 04-07-2025 aPTT Coag (Bld) [Time] 31.6 s Normal 24.1-36.2 [facility] Comment on above: Performed By: #### L 100.0100, L300.3900, L300.4310 #### [id number] [place], [address] Platelet countOrdered By: Corazon Shultz on 04-07-2025 Platelets (Bld) [#/Vol] 309 10*3/uL 150-450 Platelet countOrdered By: Boone Barahona on 04-07-2025 Platelets (Bld) [#/Vol] 319 10*3/uL 150-450 Potassium measurement (mass/ volume)Ordered By: Stefan Shultz on 04-07-2025 Potassium (Unsp spec) [Mass/Vol] 4.5 mmol/L 3.3-5.1 Comment on above: Hemolysis present, R esults could be affected. Prothrombin Time w/INRon INR Coag (PPP) [Relative time] 1.0 {INR} Normal Comment on above: Performed By: #### L 100.0100, L300.3900, L300.4310 #### [id number] [place], [address] PT Coag (PPP) [Time] 13.4 s Normal 11.7-14.9 [facility] Comment on above: Performed By: #### L 100.0100, L300.3900, L300.4310 #### [id number] [place], [address] Prothrombin timeOrdered By: Saulo Barahona on 04-07-2025 PT Coag (PPP) [Time] 13.4 s 11.7-14.9 [facility] RBC Auto (Bld) [#/Vol]Ordere d By: Stefan Shultz on 04-07-2025 RBC (Bld) [#/Vol] 4.76 10*6/uL 4.6-6.2 [facility] RBC Auto (Bld) [#/Vol]Ordere d By: Saulo Barahona on 04-07-2025 RBC (Bld) [#/Vol] 5.09 10*6/uL 4.6-6.2 [facility] Serum creatinine measurement (mass/volume)Ordered By: Stefan Shultz on 04-07-2025 Creatinine [Mass/Vol] 0.62 mg/dL Low 0.70-1.20 [facility] Serum glucose measurement (m ass/volume)Ordered By: Stefan Shultz on 04-07-2025 Glucose [Mass/Vol] 84 mg/dL 70-99 [facility] Serum or plasma calcium francoise urement (mass/volume)Ordered By: Stefan Shultz on 04-07-2025 Calcium [Mass/Vol] 8.9 mg/dL 7.6-11.0 [facility] Serum or plasma urea nitroge n measurement (mass/volume)Ordered By: Stefan Shultz on 04-07-2025 Urea nitrogen [Mass/Vol] 8 mg/dL 4-19 Sodium levelOrdered By: Darwin Shultz on 04-07-2025 Sodium [Moles/Vol] 132 mmol/L Low 133-145 [facility] White blood cell (WBC) count Ordered By: Stefan Shultz on 04-07-2025 WBC (Bld) [#/Vol] 8.1 10*3/uL 4.4-11.0 [facility] White blood cell (WBC) count Ordered By: Saulo Barahona on 04-07-2025 WBC (Bld) [#/Vol] 8.0 10*3/uL 4.4-11.0 [facility] Pulmonary Visit Reporton Pulmonary Visit Report Normal [facility] 6 Minute Walk Teston 04-25-2 025 6 Minute Walk Test Normal [facility] Chest WITH Contraston 2024 Chest WITH Contrast Normal [facility] Pulmonary Visit Reporton Pulmonary Visit Report Normal [facility] MR/BMS.BVSon 12-26-2024 MR/BMS.BVS Normal AAA Screeningon 12-08-2024 AAA Screening Normal [facility] Head AND Neck W/ Contras ton 12-01-2024 CTA Head AND Neck W/ Contrast Normal MR/BMS.BVSon 11-11-2024 MR/BMS.BVS Normal Absolute neutrophil countOrd ered By: Janak Ulloa on 11-08-2024 Neutrophils (Bld) [#/Vol] 3.0 10*3/uL 2.0-7.7 Basic Metabolic Profile (BMP )on 11-08-2024 BUN/CRE 14.2 RATIO Normal 10-20 Comment on above: Performed By: #### L 100.0100, L500.2500 #### [address] [place], [address] CA,Total 8.8 mg/dL Normal 8.5-10.1 Comment on above: Performed By: #### L 100.0100, L500.2500 #### [address] [place], [address] Chloride [Moles/Vol] 102 mmol/L Normal 98-107 [facility] Comment on above: Performed By: #### L 100.0100, L500.2500 #### [address] [place], [address] CO2 [Moles/Vol] 24.0 mmol/L Normal 21.0-32.0 Comment on above: Performed By: #### L 100.0100, L500.2500 #### [address] [place], [address] Creatinine [Mass/Vol] 0.56 mg/dL Low 0.70-1.30 [facility] Comment on above: Result Comment: The validity of the calculated GFR GFRAA in patients over70 years has not been determined. Clinical correlation isessential. Performed By: #### L 100.0100, L500.2500 #### [address] [place], [address] ECRCL 62.00 ml/min Normal Comment on above: Performed By: #### L 100.0100, L500.2500 #### [address] [place], [address] EST GFR - AA 185 mL/min Normal >60 Comment on above: Result Comment: Afri can Eritrean GFR Calc Performed By: #### L 100.0100, L500.2500 #### [address] [place], [address] GAP 5 Normal 5-15 Comment on above: Performed By: #### L 100.0100, L500.2500 #### [address] [place], [address] GFR/1.73 sq M.predicted among non-blacks MDRD (S/P/Bld) [Vol rate/Area] 153 mL/min/{1.73_m2} Normal >60 [facility] Comment on above: Result Comment: Non- GFR Calc Performed By: #### L 100.0100, L500.2500 #### [address] [place], [address] Glucose [Mass/Vol] 86 mg/dL Normal 74-106 [facility] Comment on above: Performed By: #### L 100.0100, L500.2500 #### [address] [place], [address] Potassium [Moles/Vol] 4.3 mmol/L Normal 3.5-5.1 [facility] Comment on above: Performed By: #### L 100.0100, L500.2500 #### [address] [place], [address] Sodium [Moles/Vol] 131 mmol/L Low 136-145 [facility] Comment on above: Performed By: #### L 100.0100, L500.2500 #### [address] [place], [address] Urea nitrogen [Mass/Vol] 8 mg/dL Normal 7-18 Comment on above: Performed By: #### L 100.0100, L500.2500 #### [address] [place], [address] Basophil percentageOrdered B y: Janak Ulloa on 11-08-2024 Basophils/100 WBC (Bld) 0.7 % 0-1 [facility] Blood urea nitrogen (BUN)/cr eatinine ratioOrdered By: Janak Ulloa on 11-08-2024 Urea nitrogen/Creatinine [Mass ratio] 14.2 mg/mg 10-20 CBC W/Diff, Automatedon - Absolute Lymph 1.38 X10 3/uL Normal 0.83-4.51 Comment on above: Performed By: #### L 100.0100, L500.2500 #### [address] [place], [address] Absolute Neut 3.0 X10 3/uL Normal 2.0-7.7 Comment on above: Performed By: #### L 100.0100, L500.2500 #### [address] [place], [address] Basophils/100 WBC (Bld) 0.7 % Normal 0-1 [facility] Comment on above: Performed By: #### L 100.0100, L500.2500 #### [address] [place], [address] Eosinophils/100 WBC (Bld) 2.0 % Normal 0-5 Comment on above: Performed By: #### L 100.0100, L500.2500 #### [address] [place], [address] Erythrocyte distribution width (RBC) [Ratio] 13.2 % Normal 11.6-14.6 Comment on above: Performed By: #### L 100.0100, L500.2500 #### [address] [place], [address] Hematocrit (Bld) [Volume fraction] 34.6 % Low 40-54 Comment on above: Performed By: #### L 100.0100, L500.2500 #### [address] [place], [address] Hemoglobin (Bld) [Mass/Vol] 12.3 g/dL Low 13.0-16. 5 Comment on above: Performed By: #### L 100.0100, L500.2500 #### [address] [place], [address] IG% 0.500 Normal 0.0-0.9 Comment on above: Result Comment: IG% - Immature Granulocytes (promyelocytes, myelocytes andmetamyelocytes) > 1% indicates that a LEFT SHIFT is Present. Performed By: #### L 100.0100, L500.2500 #### [address] [place], [address] Lymphocytes/100 WBC (Bld) 24.7 % Normal 19-41 Comment on above: Performed By: #### L 100.0100, L500.2500 #### [address] [place], [address] MCH (RBC) [Entitic mass] 31.4 pg Normal 27.0-32.0 Comment on above: Performed By: #### L 100.0100, L500.2500 #### [address] [place], [address] MCHC (RBC) [Mass/Vol] 35.5 g/dL Normal 32-36 [facility] Comment on above: Performed By: #### L 100.0100, L500.2500 #### [address] [place], [address] MCV (RBC) [Entitic vol] 88.3 fL Normal 80-94 [facility] Comment on above: Performed By: #### L 100.0100, L500.2500 #### [address] [place], [address] Monocytes/100 WBC (Bld) 18.1 % High 0-10 [facility] Comment on above: Performed By: #### L 100.0100, L500.2500 #### [address] [place], [address] Neutrophils/100 WBC (Bld) 54.0 % Normal 47-70 Comment on above: Performed By: #### L 100.0100, L500.2500 #### [address] [place], [address] Nucleated RBC (Bld) [#/Vol] 0 10*3/uL Normal 0-5 Comment on above: Performed By: #### L 100.0100, L500.2500 #### [address] [place], [address] Platelet mean volume (Bld) [Entitic vol] 9.8 fL Normal 6.2-12.0 Comment on above: Performed By: #### L 100.0100, L500.2500 #### [address] [place], [address] Platelets (Bld) [#/Vol] 294 10*3/uL Normal 150-450 Comment on above: Performed By: #### L 100.0100, L500.2500 #### [address] [place], [address] RBC (Bld) [#/Vol] 3.92 10*6/uL Low 4.6-6.2 [facility] Comment on above: Performed By: #### L 100.0100, L500.2500 #### [address] [place], [address] RDW SD 42.9 fl Normal 35.1-43.9 Comment on above: Performed By: #### L 100.0100, L500.2500 #### [address] [place], [address] WBC (Bld) [#/Vol] 5.6 10*3/uL Normal 4.4-11.0 [facility] Comment on above: Performed By: #### L 100.0100, L500.2500 #### [address] [place], [address] Carbon dioxide measurementOr dered By: Janak Ulloa on 11-08-2024 CO2 [Moles/Vol] 24.0 mmol/L 21.0-32.0 Chloride measurementOrdered By: Janak Ulloa on 11-08-2024 Chloride [Moles/Vol] 102 mmol/L 98-107 [facility] Discharge Instructionon 10-11 Discharge Instruction Normal [facility] Eosinophil percentageOrdered By: Janak Ulloa on 11-08-2024 Eosinophils/100 WBC (Bld) 2.0 % 0-5 Erythrocyte distribution wid th (RBC) [Ratio]Ordered By: Janak Ulloa on 11-08-2024 Erythrocyte distribution width (RBC) [Entitic vol] 42.9 fL 35.1-43.9 [facility] Erythrocyte distribution wid th ratioOrdered By: Janak Ulloa on 11-08-2024 Erythrocyte distribution width (RBC) [Ratio] 13.2 % 11.6-14.6 Estimated glomerular filtrat ion rate (GFR) AmericanOrdered By: Janak Ulloa on 11-08-2024 Estimated GFR (MDRD) Amer 185 mL/min >60 Comment on above: GFR Calc Estimation of creatinine jonathan aranceOrdered By: Janak Ulloa on 11-08-2024 Estimated Creatinine Clearance Calc 62.00 ml/min Glomerular filtration rate ( GFR) estimationOrdered By: Janak Ulloa on 11-08-2024 Estimated GFR (MDRD) Non-Af Amer 153 mL/min >60 Comment on above: Non- GFR Calc Glucose measurementOrdered B y: Janak Ulloa on 11-08-2024 Glucose [Mass/Vol] 86 mg/dL 74-106 [facility] Hematocrit Auto (Bld) [Volum e fraction]Ordered By: Janak Ulloa on 11-08-2024 Hematocrit (Bld) [Volume fraction] 34.6 % Low 40-54 Hemoglobin measurementOrdere d By: Janak Ulloa on 11-08-2024 Hemoglobin (Bld) [Mass/Vol] 12.3 g/dL Low 13.0-16. 5 Immature granulocytes/100 WB C Auto (Bld)Ordered By: Janak Ulloa on 11-08-2024 Immature granulocytes/100 WBC (Bld) 0.500 % 0.0-0.9 Comment on above: IG% - Immature Granu locytes (promyelocytes, myelocytes and metamyelocytes) > 1% indicates that a LEFT SHIFT is Present. Lymphocytes Auto (Unsp spec) [#/Vol]Ordered By: Janak Ulloa on 11-08-2024 Lymphocytes (Bld) [#/Vol] 1.38 10*3/uL 0.83-4.5 1 Lymphocytes/100 WBC Auto (Un sp spec)Ordered By: Janak Ulloa on 11-08-2024 Lymphocytes/100 WBC (Bld) 24.7 % 19-41 MCV (mean corpuscular volume ) determinationOrdered By: Janak Ulloa on 11-08-2024 MCV (RBC) [Entitic vol] 88.3 fL 80-94 [facility] Mean corpuscular hemoglobin (MCH) determinationOrdered By: Janak Ulloa on 11-08-2024 MCH (RBC) [Entitic mass] 31.4 pg 27.0-32.0 Mean corpuscular hemoglobin concentration (MCHC) determinationOrdered By: Janak Ulloa on 11-08-2024 MCHC (RBC) [Mass/Vol] 35.5 g/dL 32-36 [facility] Mean platelet volume determi nationOrdered By: Janak Ulloa on 11-08-2024 Platelet mean volume (Bld) [Entitic vol] 9.8 fL 6.2-12.0 Monocyte percentageOrdered B y: Janak Ulloa on 11-08-2024 Monocytes/100 WBC (Bld) 18.1 % High 0-10 [facility] Neutrophil percentageOrdered By: Janak Ulloa on 11-08-2024 Neutrophils/100 WBC (Bld) 54.0 % 47-70 Nucleated red blood cell per centageOrdered By: Janak Ulloa on 11-08-2024 Nucleated RBC/100 WBC (Bld) [Ratio] 0 % 0-5 PROLACTIN 4465on 11-08-2024 PROLACTIN 6.2 ng/mL Normal 3.6-25.2 Comment on above: Result Comment: Perf ormed at: CB - [facility] [address] [id number] Director: Sascha Diaz PhD, Phone: [phone] Performed By: #### L 065.0921, R3486.5668, L970.2428 #### [address] [place], [address] Platelet countOrdered By: Cleo Ulloa on 11-08-2024 Platelets (Bld) [#/Vol] 294 10*3/uL 150-450 Potassium measurementOrdered By: Janak Ulloa on 11-08-2024 Potassium [Moles/Vol] 4.3 mmol/L 3.5-5.1 [facility] RBC Auto (Bld) [#/Vol]Ordere d By: Janak Ulloa on 11-08-2024 RBC (Bld) [#/Vol] 3.92 10*6/uL Low 4.6-6.2 [facility] Serum anion gap measurementO rdered By: Janak Ulloa on 11-08-2024 Anion gap [Moles/Vol] 5 mmol/L 5-15 [facility] Serum or plasma calcium francoise urement (mass/volume)Ordered By: Janak Ulloa on 11-08-2024 Calcium [Mass/Vol] 8.8 mg/dL 8.5-10.1 [facility] Serum or plasma creatinine m easurement (mass/volume)Ordered By: Janak Ulloa on 11-08-2024 Creatinine [Mass/Vol] 0.56 mg/dL Low 0.70-1.30 [facility] Comment on above: The validity of the calculated GFR & GFRAA in patients over 70 years has not been determined. Clinical correlation is essential. Serum or plasma urea nitroge n measurement (mass/volume)Ordered By: Janak Ulloa on 11-08-2024 Urea nitrogen [Mass/Vol] 8 mg/dL 7-18 Sodium levelOrdered By: Tye Ulloa on 11-08-2024 Sodium [Moles/Vol] 131 mmol/L Low 136-145 [facility] White blood cell (WBC) count Ordered By: Janak Ulloa on 11-08-2024 WBC (Bld) [#/Vol] 5.6 10*3/uL 4.4-11.0 [facility] Albumin to globulin ratioOrd ered By: Goldy Law on 11-07-2024 Albumin/Globulin [Mass ratio] 0.9 {ratio} 0.9-2.4 Basic Metabolic Profile (BMP )on 11-07-2024 BUN Normal 7-18 Comment on above: Result Comment: Canc elled via OM: MD Ordered Performed By: #### L 500.2500 #### [address] [place], [address] BUN/CRE Normal 10-20 Comment on above: Result Comment: Canc elled via OM: MD Ordered Performed By: #### L 500.2500 #### [address] [place], [address] CA,Total Normal 8.5-10.1 Comment on above: Result Comment: Canc elled via OM: MD Ordered Performed By: #### L 500.2500 #### [address] [place], [address] CL Normal 98-107 Comment on above: Result Comment: Canc elled via OM: MD Ordered Performed By: #### L 500.2500 #### [address] [place], [address] CO2 Normal 21.0-32.0 Comment on above: Result Comment: Canc elled via OM: MD Ordered Performed By: #### L 500.2500 #### [address] [place], [address] CREAT,SERUM Normal 0.70-1.30 Comment on above: Result Comment: Canc elled via OM: MD Ordered Performed By: #### L 500.2500 #### [address] [place], [address] EST GFR Normal >60 Comment on above: Result Comment: Canc elled via OM: MD Ordered Performed By: #### L 500.2500 #### [address] [place], [address] EST GFR - AA Normal >60 Comment on above: Result Comment: Canc elled via OM: MD Ordered Performed By: #### L 500.2500 #### [address] [place], [address] GAP Normal 5-15 Comment on above: Result Comment: Canc elled via OM: MD Ordered Performed By: #### L 500.2500 #### [address] [place], [address] GLU Normal 74-106 Comment on above: Result Comment: Canc elled via OM: MD Ordered Performed By: #### L 500.2500 #### [address] [place], [address] Potassium Normal 3.5-5.1 Comment on above: Result Comment: Canc elled via OM: MD Ordered Performed By: #### L 500.2500 #### [address] [place], [address] Basic Metabolic Profile (BMP) Normal 136-145 Comment on above: Result Comment: Canc elled via OM: MD Ordered Performed By: #### L 500.2500 #### [address] [place], [address] BUN Normal 7-18 Comment on above: Result Comment: Canc elled via OM: MD Ordered Performed By: #### L 500.2500 #### [address] [place], [address] BUN/CRE Normal 10-20 Comment on above: Result Comment: Canc elled via OM: MD Ordered Performed By: #### L 500.2500 #### [address] [place], [address] CA,Total Normal 8.5-10.1 Comment on above: Result Comment: Canc elled via OM: MD Ordered Performed By: #### L 500.2500 #### [address] [place], [address] CL Normal 98-107 Comment on above: Result Comment: Canc elled via OM: MD Ordered Performed By: #### L 500.2500 #### [address] [place], [address] CO2 Normal 21.0-32.0 Comment on above: Result Comment: Canc elled via OM: MD Ordered Performed By: #### L 500.2500 #### [address] [place], [address] CREAT,SERUM Normal 0.70-1.30 Comment on above: Result Comment: Canc elled via OM: MD Ordered Performed By: #### L 500.2500 #### [address] [place], [address] EST GFR Normal >60 Comment on above: Result Comment: Canc elled via OM: MD Ordered Performed By: #### L 500.2500 #### [address] [place], [address] EST GFR - AA Normal >60 Comment on above: Result Comment: Canc elled via OM: MD Ordered Performed By: #### L 500.2500 #### [address] [place], [address] GAP Normal 5-15 Comment on above: Result Comment: Canc elled via OM: MD Ordered Performed By: #### L 500.2500 #### [address] [place], [address] GLU Normal 74-106 Comment on above: Result Comment: Canc elled via OM: MD Ordered Performed By: #### L 500.2500 #### [address] [place], [address] Potassium Normal 3.5-5.1 Comment on above: Result Comment: Canc elled via OM: MD Ordered Performed By: #### L 500.2500 #### [address] [place], [address] Basic Metabolic Profile (BMP) Normal 136-145 Comment on above: Result Comment: Canc elled via OM: MD Ordered Performed By: #### L 500.2500 #### [address] [place], [address] BUN Normal 7-18 Comment on above: Result Comment: Canc elled via OM: MD Ordered Performed By: #### L 500.2500 #### [address] [place], [address] BUN/CRE Normal 10-20 Comment on above: Result Comment: Canc elled via OM: MD Ordered Performed By: #### L 500.2500 #### [address] [place], [address] CA,Total Normal 8.5-10.1 Comment on above: Result Comment: Canc elled via OM: MD Ordered Performed By: #### L 500.2500 #### [address] [place], [address] CL Normal 98-107 Comment on above: Result Comment: Canc elled via OM: MD Ordered Performed By: #### L 500.2500 #### [address] [place], [address] CO2 Normal 21.0-32.0 Comment on above: Result Comment: Canc elled via OM: MD Ordered Performed By: #### L 500.2500 #### [address] [place], [address] CREAT,SERUM Normal 0.70-1.30 Comment on above: Result Comment: Canc elled via OM: MD Ordered Performed By: #### L 500.2500 #### [address] [place], [address] EST GFR Normal >60 Comment on above: Result Comment: Canc elled via OM: MD Ordered Performed By: #### L 500.2500 #### [address] [place], [address] EST GFR - AA Normal >60 Comment on above: Result Comment: Canc elled via OM: MD Ordered Performed By: #### L 500.2500 #### [address] [place], [address] GAP Normal 5-15 Comment on above: Result Comment: Canc elled via OM: MD Ordered Performed By: #### L 500.2500 #### [address] [place], [address] GLU Normal 74-106 Comment on above: Result Comment: Canc elled via OM: MD Ordered Performed By: #### L 500.2500 #### [address] [place], [address] Potassium Normal 3.5-5.1 Comment on above: Result Comment: Canc elled via OM: MD Ordered Performed By: #### L 500.2500 #### [address] [place], [address] Basic Metabolic Profile (BMP) Normal 136-145 Comment on above: Result Comment: Thuy chaves via OM: Ordered Performed By: #### L 500.2500 #### [address] [place], [address] BUN/CRE 16.7 RATIO Normal 10-20 Comment on above: Performed By: #### L 500.2500 #### [address] [place], [address] CA,Total 8.3 mg/dL Low 8.5-10.1 Comment on above: Performed By: #### L 500.2500 #### [address] [place], [address] Chloride [Moles/Vol] 104 mmol/L Normal 98-107 [facility] Comment on above: Performed By: #### L 500.2500 #### [address] [place], [address] CO2 [Moles/Vol] 22.0 mmol/L Normal 21.0-32.0 Comment on above: Performed By: #### L 500.2500 #### [address] [place], [address] Creatinine [Mass/Vol] 0.48 mg/dL Low 0.70-1.30 [facility] Comment on above: Result Comment: The validity of the calculated GFR GFRAA in patients over70 years has not been determined. Clinical correlation isessential. Performed By: #### L 500.2500 #### [address] [place], [address] ECRCL 63.48 ml/min Normal Comment on above: Performed By: #### L 500.2500 #### [address] [place], [address] EST GFR - AA 222 mL/min Normal >60 Comment on above: Result Comment: Afri can Eritrean GFR Calc Performed By: #### L 500.2500 #### [address] [place], [address] GAP 5 Normal 5-15 Comment on above: Performed By: #### L 500.2500 #### [address] [place], [address] GFR/1.73 sq M.predicted among non-blacks MDRD (S/P/Bld) [Vol rate/Area] 183 mL/min/{1.73_m2} Normal >60 [facility] Comment on above: Result Comment: Non- GFR Calc Performed By: #### L 500.2500 #### [address] [place], [address] Glucose [Mass/Vol] 125 mg/dL High 74-106 [facility] Comment on above: Result Comment: Fast ing Glucose result from 100 to 125 mg/dLsuggests IMPAIRED HOMEOSTASIS per A.D.A. criteria. Performed By: #### L 500.2500 #### [address] [place], [address] Potassium [Moles/Vol] 4.4 mmol/L Normal 3.5-5.1 [facility] Comment on above: Performed By: #### L 500.2500 #### [address] [place], [address] Sodium [Moles/Vol] 131 mmol/L Low 136-145 [facility] Comment on above: Performed By: #### L 500.2500 #### [address] [place], [address] Urea nitrogen [Mass/Vol] 8 mg/dL Normal 7-18 Comment on above: Performed By: #### L 500.2500 #### [address] [place], [address] BUN/CRE 17.2 RATIO Normal 10-20 Comment on above: Performed By: #### L 500.2500 #### [address] [place], [address] CA,Total 8.2 mg/dL Low 8.5-10.1 Comment on above: Performed By: #### L 500.2500 #### [address] [place], [address] Chloride [Moles/Vol] 100 mmol/L Normal 98-107 [facility] Comment on above: Performed By: #### L 500.2500 #### [address] [place], [address] CO2 [Moles/Vol] 25.0 mmol/L Normal 21.0-32.0 Comment on above: Performed By: #### L 500.2500 #### [address] [place], [address] Creatinine [Mass/Vol] 0.46 mg/dL Low 0.70-1.30 [facility] Comment on above: Result Comment: The validity of the calculated GFR GFRAA in patients over70 years has not been determined. Clinical correlation isessential. Performed By: #### L 500.2500 #### [address] [place], [address] ECRCL 63.48 ml/min Normal Comment on above: Performed By: #### L 500.2500 #### [address] [place], [address] EST GFR - AA 230 mL/min Normal >60 Comment on above: Result Comment: Afri can Eritrean GFR Calc Performed By: #### L 500.2500 #### [address] [place], [address] GAP 3 Low 5-15 Comment on above: Performed By: #### L 500.2500 #### [address] [place], [address] GFR/1.73 sq M.predicted among non-blacks MDRD (S/P/Bld) [Vol rate/Area] 190 mL/min/{1.73_m2} Normal >60 [facility] Comment on above: Result Comment: Non- GFR Calc Performed By: #### L 500.2500 #### [address] [place], [address] Glucose [Mass/Vol] 92 mg/dL Normal 74-106 [facility] Comment on above: Performed By: #### L 500.2500 #### [address] [place], [address] Potassium [Moles/Vol] 4.6 mmol/L Normal 3.5-5.1 [facility] Comment on above: Performed By: #### L 500.2500 #### [address] [place], [address] Sodium [Moles/Vol] 128 mmol/L Low 136-145 [facility] Comment on above: Performed By: #### L 500.2500 #### [address] [place], [address] Urea nitrogen [Mass/Vol] 8 mg/dL Normal 7-18 Comment on above: Performed By: #### L 500.2500 #### [address] [place], [address] BUN/CRE 17.9 RATIO Normal 10-20 Comment on above: Performed By: #### L 500.2500 #### [address] [place], [address] CA,Total 7.5 mg/dL Low 8.5-10.1 Comment on above: Performed By: #### L 500.2500 #### [address] [place], [address] Chloride [Moles/Vol] 96 mmol/L Low 98-107 [facility] Comment on above: Performed By: #### L 500.2500 #### [address] [place], [address] CO2 [Moles/Vol] 23.0 mmol/L Normal 21.0-32.0 Comment on above: Performed By: #### L 500.2500 #### [address] [place], [address] Creatinine [Mass/Vol] 0.50 mg/dL Low 0.70-1.30 [facility] Comment on above: Result Comment: The validity of the calculated GFR GFRAA in patients over70 years has not been determined. Clinical correlation isessential. Performed By: #### L 500.2500 #### [address] [place], [address] ECRCL 63.97 ml/min Normal Comment on above: Performed By: #### L 500.2500 #### [address] [place], [address] EST GFR - AA 211 mL/min Normal >60 Comment on above: Result Comment: Afri can Eritrean GFR Calc Performed By: #### L 500.2500 #### [address] [place], [address] GAP 8 Normal 5-15 Comment on above: Performed By: #### L 500.2500 #### [address] [place], [address] GFR/1.73 sq M.predicted among non-blacks MDRD (S/P/Bld) [Vol rate/Area] 174 mL/min/{1.73_m2} Normal >60 [facility] Comment on above: Result Comment: Non- GFR Calc Performed By: #### L 500.2500 #### [address] [place], [address] Glucose [Mass/Vol] 98 mg/dL Normal 74-106 [facility] Comment on above: Performed By: #### L 500.2500 #### [id number] [place], [address] Potassium [Moles/Vol] 4.0 mmol/L Normal 3.5-5.1 [facility] Comment on above: Performed By: #### L 500.2500 #### [id number] [place], [address] Sodium [Moles/Vol] 126 mmol/L Low 136-145 [facility] Comment on above: Performed By: #### L 500.2500 #### [id number] [place], [address] Urea nitrogen [Mass/Vol] 9 mg/dL Normal 7-18 Comment on above: Performed By: #### L 500.2500 #### [id number] [place], [address] Bilirubin, totalOrdered By: Goldy Law on 11-07-2024 Bilirubin [Mass/Vol] 0.90 mg/dL 0.20-1.00 [facility] Comment on above: For patients on eltr ombopag therapy, use of [facility] [place] TBIL is not recommended. CBC W/Diff, Automatedon 10-11 Absolute Lymph 0.90 X10 3/uL Normal 0.83-4.51 Comment on above: Performed By: #### L 501.5200, L500.4050, L501.2300, L100.0100 #### [address] [place], [address] Absolute Neut 5.8 X10 3/uL Normal 2.0-7.7 Comment on above: Performed By: #### L 501.5200, L500.4050, L501.2300, L100.0100 #### [address] [place], [address] Basophils/100 WBC (Bld) 0.4 % Normal 0-1 [facility] Comment on above: Performed By: #### L 501.5200, L500.4050, L501.2300, L100.0100 #### [address] [place], [address] Eosinophils/100 WBC (Bld) 0.3 % Normal 0-5 Comment on above: Performed By: #### L 501.5200, L500.4050, L501.2300, L100.0100 #### [address] [place], [address] Erythrocyte distribution width (RBC) [Ratio] 12.7 % Normal 11.6-14.6 Comment on above: Performed By: #### L 501.5200, L500.4050, L501.2300, L100.0100 #### [address] [place], [address] Hematocrit (Bld) [Volume fraction] 33.4 % Low 40-54 Comment on above: Performed By: #### L 501.5200, L500.4050, L501.2300, L100.0100 #### [address] [place], [address] Hemoglobin (Bld) [Mass/Vol] 12.1 g/dL Low 13.0-16. 5 Comment on above: Performed By: #### L 501.5200, L500.4050, L501.2300, L100.0100 #### [address] [place], [address] IG% 0.400 Normal 0.0-0.9 Comment on above: Result Comment: IG% - Immature Granulocytes (promyelocytes, myelocytes andmetamyelocytes) > 1% indicates that a LEFT SHIFT is Present. Performed By: #### L 501.5200, L500.4050, L501.2300, L100.0100 #### [address] [place], [address] Lymphocytes/100 WBC (Bld) 11.7 % Low 19-41 Comment on above: Performed By: #### L 501.5200, L500.4050, L501.2300, L100.0100 #### [address] [place], [address] MCH (RBC) [Entitic mass] 31.5 pg Normal 27.0-32.0 Comment on above: Performed By: #### L 501.5200, L500.4050, L501.2300, L100.0100 #### [address] [place], [address] MCHC (RBC) [Mass/Vol] 36.2 g/dL High 32-36 [facility] Comment on above: Performed By: #### L 501.5200, L500.4050, L501.2300, L100.0100 #### [address] [place], [address] MCV (RBC) [Entitic vol] 87.0 fL Normal 80-94 [facility] Comment on above: Performed By: #### L 501.5200, L500.4050, L501.2300, L100.0100 #### [address] [place], [address] Monocytes/100 WBC (Bld) 11.7 % High 0-10 [facility] Comment on above: Performed By: #### L 501.5200, L500.4050, L501.2300, L100.0100 #### [address] [place], [address] Neutrophils/100 WBC (Bld) 75.5 % High 47-70 Comment on above: Performed By: #### L 501.5200, L500.4050, L501.2300, L100.0100 #### [address] [place], [address] Nucleated RBC (Bld) [#/Vol] 0 10*3/uL Normal 0-5 Comment on above: Performed By: #### L 501.5200, L500.4050, L501.2300, L100.0100 #### [address] [place], [address] Platelet mean volume (Bld) [Entitic vol] 9.4 fL Normal 6.2-12.0 Comment on above: Performed By: #### L 501.5200, L500.4050, L501.2300, L100.0100 #### [address] [place], [address] Platelets (Bld) [#/Vol] 296 10*3/uL Normal 150-450 Comment on above: Performed By: #### L 501.5200, L500.4050, L501.2300, L100.0100 #### [address] [place], [address] RBC (Bld) [#/Vol] 3.84 10*6/uL Low 4.6-6.2 [facility] Comment on above: Performed By: #### L 501.5200, L500.4050, L501.2300, L100.0100 #### [address] [place], [address] RDW SD 40.1 fl Normal 35.1-43.9 Comment on above: Performed By: #### L 501.5200, L500.4050, L501.2300, L100.0100 #### [address] [place], [address] WBC (Bld) [#/Vol] 7.7 10*3/uL Normal 4.4-11.0 [facility] Comment on above: Performed By: #### L 501.5200, L500.4050, L501.2300, L100.0100 #### [address] [place], [address] Carotid Duplex Ultrasoundon 11-07-2024 Carotid Duplex Ultrasound Normal Chest without Contraston Chest without Contrast Normal [facility] Comprehensive Metabolic Prof ilon 11-07-2024 Albumin [Mass/Vol] 2.9 g/dL Low 3.2-5.0 [facility] Comment on above: Performed By: #### L 501.5200, L500.4050, L501.2300, L100.0100 #### [address] [place], [address] Albumin/Globulin [Mass ratio] 0.9 {ratio} Normal 0.9-2.4 Comment on above: Performed By: #### L 501.5200, L500.4050, L501.2300, L100.0100 #### [address] [place], [address] ALK P 94 U/L Normal 45-117 Comment on above: Performed By: #### L 501.5200, L500.4050, L501.2300, L100.0100 #### [address] [place], [address] ALT [Catalytic activity/Vol] 38 U/L Normal 16-61 Comment on above: Performed By: #### L 501.5200, L500.4050, L501.2300, L100.0100 #### [address] [place], [address] AST [Catalytic activity/Vol] 48 U/L High 15-37 Comment on above: Performed By: #### L 501.5200, L500.4050, L501.2300, L100.0100 #### [address] [place], [address] Bilirubin [Mass/Vol] 0.90 mg/dL Normal 0.20-1.00 [facility] Comment on above: Result Comment: For patients on eltrombopag therapy, use of Dimension [place] TBIL is not recommended. Performed By: #### L 501.5200, L500.4050, L501.2300, L100.0100 #### [address] [place], [address] BUN/CRE 19.4 RATIO Normal 10-20 Comment on above: Performed By: #### L 501.5200, L500.4050, L501.2300, L100.0100 #### [address] [place], [address] CA,Total 7.9 mg/dL Low 8.5-10.1 Comment on above: Performed By: #### L 501.5200, L500.4050, L501.2300, L100.0100 #### [address] [place], [address] Chloride [Moles/Vol] 97 mmol/L Low 98-107 [facility] Comment on above: Performed By: #### L 501.5200, L500.4050, L501.2300, L100.0100 #### [address] [place], [address] CO2 [Moles/Vol] 24.0 mmol/L Normal 21.0-32.0 Comment on above: Performed By: #### L 501.5200, L500.4050, L501.2300, L100.0100 #### [address] [place], [address] Creatinine [Mass/Vol] 0.52 mg/dL Low 0.70-1.30 [facility] Comment on above: Result Comment: The validity of the calculated GFR GFRAA in patients over70 years has not been determined. Clinical correlation isessential. Performed By: #### L 501.5200, L500.4050, L501.2300, L100.0100 #### [address] [place], [address] ECRCL 63.46 ml/min Normal Comment on above: Performed By: #### L 501.5200, L500.4050, L501.2300, L100.0100 #### [address] [place], [address] EST GFR - AA 204 mL/min Normal >60 Comment on above: Result Comment: Afri can Eritrean GFR Calc Performed By: #### L 501.5200, L500.4050, L501.2300, L100.0100 #### [address] [place], [address] GAP 4 Low 5-15 Comment on above: Performed By: #### L 501.5200, L500.4050, L501.2300, L100.0100 #### [address] [place], [address] GFR/1.73 sq M.predicted among non-blacks MDRD (S/P/Bld) [Vol rate/Area] 169 mL/min/{1.73_m2} Normal >60 [facility] Comment on above: Result Comment: Non- GFR Calc Performed By: #### L 501.5200, L500.4050, L501.2300, L100.0100 #### [address] [place], [address] Globulin (S) [Mass/Vol] 3.4 g/dL Normal 2.2-4.2 [facility] Comment on above: Performed By: #### L 501.5200, L500.4050, L501.2300, L100.0100 #### [address] [place], [address] Glucose [Mass/Vol] 98 mg/dL Normal 74-106 [facility] Comment on above: Performed By: #### L 501.5200, L500.4050, L501.2300, L100.0100 #### [address] [place], [address] Potassium [Moles/Vol] 4.1 mmol/L Normal 3.5-5.1 [facility] Comment on above: Performed By: #### L 501.5200, L500.4050, L501.2300, L100.0100 #### [address] [place], [address] Sodium [Moles/Vol] 125 mmol/L Low 136-145 [facility] Comment on above: Performed By: #### L 501.5200, L500.4050, L501.2300, L100.0100 #### [address] [place], [address] T PROT 6.3 g/dL Low 6.4-8.2 Comment on above: Performed By: #### L 501.5200, L500.4050, L501.2300, L100.0100 #### [address] [place], [address] Urea nitrogen [Mass/Vol] 10 mg/dL Normal 7-18 Comment on above: Performed By: #### L 501.5200, L500.4050, L501.2300, L100.0100 #### [address] 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 For more information see Policy Stat Procedure [place] High Sensitivity Troponin (TNIH) and attachments. Performed By: #### L 501.4020 #### [address] [place], [address] Laboratory - Chemistry and C hemistry - challengeOrdered By: Goldy Law on 11-07-2024 AST [Catalytic activity/Vol] 48 U/L High 15-37 Magnesiumon 11-07-2024 Magnesium [Mass/Vol] 1.7 mg/dL Normal 1.6-2.6 [facility] Comment on above: Performed By: #### L 501.5200, L500.4050, L501.2300, L100.0100 #### [address] [place], [address] Magnesium measurementOrdered By: Goldy Law on 11-07-2024 Magnesium [Mass/Vol] 1.7 mg/dL 1.6-2.6 [facility] Methadone, urineOrdered By: Goldy Law on 11-07-2024 Urine Methadone Screen Negative < 300 ng/mL No Panel InformationOrdered By: Goldy Law on 11-07-2024 Urine Drug Screen Comment Comment on above: CONFIRMATORY TESTING FOR ALL [...] on 11-07-2024 Urine Osmolality 172 mOsm/KG >50 Comment on above: Normal Urine Referen ce Ranges Random: 50 - 1200 mOsm/kg H20 depending on fluid intake Random: >850 mOsm/kg after 12 hour fluid restriction 24 hour: ~300 - 900 mOsm/kg H2O Osmolality, Serumon 11-07-20 24 OSMOLALITY,SER 258 mOsm/KG Low 280-301 Comment on above: Performed By: #### L 501.9520, L3100.5400, L501.7300 #### [address] [place], [place], [address] Osmolality, Urineon 11-07-20 24 OSMOLALITY,UR 172 mOsm/KG Normal Comment on above: Result Comment: Norm al Urine Reference Ranges Random: 50 - 1200 mOsm/kg H20 depending on fluid intake Random: >850 mOsm/kg after 12 hour fluid restriction 24 hour: 300 - 900 mOsm/kg H2O Performed By: #### L 501.7400 #### [address] [place], [address] Osmolality, serumOrdered By: Goldy Law on 11-07-2024 Serum Osmolality 258 mOsm/KG Low 280-301 Phosphoruson 11-07-2024 Phosphate [Mass/Vol] 2.6 mg/dL Normal 2.5-4.9 [facility] Comment on above: Performed By: #### L 501.5200, L500.4050, L501.2300, L100.0100 #### [address] [place], [address] Phosphorus measurementOrdere d By: oGldy Law on 11-07-2024 Phosphorus Level 2.6 mg/dL 2.5-4.9 Prolactin [Mass/Vol]Ordered By: Goldy Law on 11-07-2024 Prolactin 6.2 ng/mL 3.6-25.2 Comment on above: Performed at: [place] [id number] Director: Sascha Diaz PhD, Phone: [phone] Quantitative urine opiates m easurementOrdered By: Goldy Law on 11-07-2024 Opiates Ql (U) Negative < 300 ng/mL Serum globulin measurementOr dered By: Goldy Law on 11-07-2024 Globulin (S) [Mass/Vol] 3.4 g/dL 2.2-4.2 [facility] Serum or plasma alanine champagne otransferase (ALT) measurementOrdered By: Goldy Law on 11-07-2024 ALT [Catalytic activity/Vol] 38 U/L 16-61 Serum or plasma albumin francoise urement (mass/volume)Ordered By: Goldy Law on 11-07-2024 Albumin [Mass/Vol] 2.9 g/dL Low 3.2-5.0 [facility] Serum or plasma alkaline mariola sphatase measurementOrdered By: Goldy Law on 11-07-2024 ALP [Catalytic activity/Vol] 94 U/L 45-117 TSH QnOrdered By: Godly aldridge on 11-07-2024 Thyroid Stimulating Hormone (TSH) 1.490 uIU/mL 0.358-3.74 0 Thyroid Stim Hormone (TSH)on 11-07-2024 TSH 1.490 uIU/mL Normal 0.358-3.74 0 Comment on above: Performed By: #### L 501.9520, L3100.5400, L501.7300 #### [address] [place], [address] Total proteinOrdered By: Alirio Law on 11-07-2024 Protein [Mass/Vol] 6.3 g/dL Low 6.4-8.2 [facility] Troponin IOrdered By: Malcolm brambila on 11-07-2024 Troponin I High Sensitivity 16 pg/mL 3.0-78.0 Comment on above: Please Note: New [place] t Units and Gender Specific Reference Ranges. For more information see Policy Stat Procedure [place] High Sensitivity Troponin (TNIH) and attachments. Urinalysis, Completeon 11-07 WBC 0-5 SEEN Normal 0-5 Comment on above: Order Comment: CLEAN CATCH Performed By: #### L 400.0001 #### [address] [place], [address] Urine Drug Screen (VISTA)on 11-07-2024 AMPHETAMINES Negative Normal <1000 ng/mL Comment on above: Performed By: #### L 505.5000 #### [address] [place], [address] BARBITIURATES Negative Normal < 200 ng/mL Comment on above: Performed By: #### L 505.5000 #### [address] [place], [address] BENZODIAZIPINE Negative Normal < 200 ng/mL Comment on above: Performed By: #### L 505.5000 #### [address] [place], [address] COCAINE Negative Normal < 300 ng/mL Comment on above: Performed By: #### L 505.5000 #### [address] [place], [address] ECSTACY Negative Normal < 500 ng/mL Comment on above: Performed By: #### L 505.5000 #### [address] [place], [address] METHADONE Negative Normal < 300 ng/mL Comment on above: Performed By: #### L 505.5000 #### [address] [facility] [address] OPIATES Negative Normal < 300 ng/mL Comment on above: Performed By: #### L 505.5000 #### [address] [place], [address] PCP Negative Normal < 25 ng/mL Comment on above: Performed By: #### L 505.5000 #### [address] [place], [address] THC Negative Normal < 50 ng/mL Comment on above: Performed By: #### L 505.5000 #### [address] [place], [address] VISTA UDS PH 6 Normal Comment on above: Performed By: #### L 505.5000 #### [address] [place] [id number] Urine amphetamine measuremen tOrdered By: Goldy Law on 11-07-2024 Amphetamines Ql (U) Negative <1000 ng/mL Urine barbiturates measureme ntOrdered By: Goldy Law on 11-07-2024 Urine Barbiturates Screen Negative < 200 ng/mL Urine benzodiazepine levelOr dered By: Goldy Law on 11-07-2024 Benzodiazepines Ql (U) Negative < 200 ng/mL Urine cocaine levelOrdered B y: Goldy Law on 11-07-2024 Cocaine Ql (U) Negative < 300 ng/mL Urine lbvxj-9-exczyccoevotno abinol (THC) measurementOrdered By: Goldy Law on 11-07-2024 Cannabinoids Screen Ql (U) Negative < 50 ng/m L Urine methylenedioxymethamph etamine (MDMA) measurementOrdered By: Goldy Law on 11-07-2024 MDMA (Ecstasy) Screen Negative < 500 ng/mL Urine phencyclidine (PCP) de tectionOrdered By: Goldy Law on 11-07-2024 Phencyclidine Ql (U) Negative < 25 ng/mL [facility] 12 Lead EKGon 11-06-2024 12 Lead EKG Normal Alcohol, Blood (Medical)-Ser umon 11-06-2024 SERUM ETOH 54.0 mg/dL Normal Comment on above: Result Comment: The serum:whole blood ethanol ratio is approximately 1.14and varies slightly with hematocrit.Medical Alcohol reference interval and critical value innon-tolerant individuals; 50 - 100 Impairment 100 Intoxication 100 - 250 Severe Poisoning 250 - 400 Deep/possible fatal coma Performed By: #### L 100.0100, L501.2450, L300.4310, L501.9100, L300.3900, L501.5425, L500.4050 #### [address] [place], [place], [id number] Bilirubin Test strip Ql (U)O rdered By: Malcolm Christy on 11-06-2024 Bilirubin Ql (U) Negative Negative Brain/Head without Contrasto n 11-06-2024 Brain/Head without Contrast Normal CBC W/Diff, Automatedon - Absolute Lymph 1.98 X10 3/uL Normal 0.83-4.51 Comment on above: Performed By: #### L 100.0100, L501.2450, L300.4310, L501.9100, L300.3900, L501.5425, L500.4050 #### [address] [place], [address] Absolute Neut 2.8 X10 3/uL Normal 2.0-7.7 Comment on above: Performed By: #### L 100.0100, L501.2450, L300.4310, L501.9100, L300.3900, L501.5425, L500.4050 #### [address] [place], [address] Basophils/100 WBC (Bld) 0.7 % Normal 0-1 [facility] Comment on above: Performed By: #### L 100.0100, L501.2450, L300.4310, L501.9100, L300.3900, L501.5425, L500.4050 #### [address] [place], [address] Eosinophils/100 WBC (Bld) 2.0 % Normal 0-5 Comment on above: Performed By: #### L 100.0100, L501.2450, L300.4310, L501.9100, L300.3900, L501.5425, L500.4050 #### [address] [place], [address] Erythrocyte distribution width (RBC) [Ratio] 12.8 % Normal 11.6-14.6 Comment on above: Performed By: #### L 100.0100, L501.2450, L300.4310, L501.9100, L300.3900, L501.5425, L500.4050 #### [address] [place], [address] Hematocrit (Bld) [Volume fraction] 36.0 % Low 40-54 Comment on above: Performed By: #### L 100.0100, L501.2450, L300.4310, L501.9100, L300.3900, L501.5425, L500.4050 #### [address] [place], [address] Hemoglobin (Bld) [Mass/Vol] 13.0 g/dL Normal 13.0-16. 5 Comment on above: Performed By: #### L 100.0100, L501.2450, L300.4310, L501.9100, L300.3900, L501.5425, L500.4050 #### [address] [place], [address] IG% 0.500 Normal 0.0-0.9 Comment on above: Result Comment: IG% - Immature Granulocytes (promyelocytes, myelocytes andmetamyelocytes) > 1% indicates that a LEFT SHIFT is Present. Performed By: #### L 100.0100, L501.2450, L300.4310, L501.9100, L300.3900, L501.5425, L500.4050 #### [address] [place], [address] Lymphocytes/100 WBC (Bld) 33.3 % Normal 19-41 Comment on above: Performed By: #### L 100.0100, L501.2450, L300.4310, L501.9100, L300.3900, L501.5425, L500.4050 #### [address] [place], [address] MCH (RBC) [Entitic mass] 31.5 pg Normal 27.0-32.0 Comment on above: Performed By: #### L 100.0100, L501.2450, L300.4310, L501.9100, L300.3900, L501.5425, L500.4050 #### [address] [place], [address] MCHC (RBC) [Mass/Vol] 36.1 g/dL High 32-36 [facility] Comment on above: Performed By: #### L 100.0100, L501.2450, L300.4310, L501.9100, L300.3900, L501.5425, L500.4050 #### [address] [place], [address] MCV (RBC) [Entitic vol] 87.2 fL Normal 80-94 [facility] Comment on above: Performed By: #### L 100.0100, L501.2450, L300.4310, L501.9100, L300.3900, L501.5425, L500.4050 #### [address] [place], [address] Monocytes/100 WBC (Bld) 17.1 % High 0-10 [facility] Comment on above: Performed By: #### L 100.0100, L501.2450, L300.4310, L501.9100, L300.3900, L501.5425, L500.4050 #### [address] [place], [address] Neutrophils/100 WBC (Bld) 46.4 % Low 47-70 Comment on above: Performed By: #### L 100.0100, L501.2450, L300.4310, L501.9100, L300.3900, L501.5425, L500.4050 #### [address] [place], [address] Nucleated RBC (Bld) [#/Vol] 0 10*3/uL Normal 0-5 Comment on above: Performed By: #### L 100.0100, L501.2450, L300.4310, L501.9100, L300.3900, L501.5425, L500.4050 #### [address] [place], [address] Platelet mean volume (Bld) [Entitic vol] 9.4 fL Normal 6.2-12.0 Comment on above: Performed By: #### L 100.0100, L501.2450, L300.4310, L501.9100, L300.3900, L501.5425, L500.4050 #### [address] [place], [address] Platelets (Bld) [#/Vol] 314 10*3/uL Normal 150-450 Comment on above: Performed By: #### L 100.0100, L501.2450, L300.4310, L501.9100, L300.3900, L501.5425, L500.4050 #### [address] [place], [address] RBC (Bld) [#/Vol] 4.13 10*6/uL Low 4.6-6.2 [facility] Comment on above: Performed By: #### L 100.0100, L501.2450, L300.4310, L501.9100, L300.3900, L501.5425, L500.4050 #### [address] [place], [address] RDW SD 40.6 fl Normal 35.1-43.9 Comment on above: Performed By: #### L 100.0100, L501.2450, L300.4310, L501.9100, L300.3900, L501.5425, L500.4050 #### [address] [place], [address] WBC (Bld) [#/Vol] 6.0 10*3/uL Normal 4.4-11.0 [facility] Comment on above: Performed By: #### L 100.0100, L501.2450, L300.4310, L501.9100, L300.3900, L501.5425, L500.4050 #### [address] [place], [address] Comprehensive Metabolic Prof ilon 11-06-2024 Albumin [Mass/Vol] 3.0 g/dL Low 3.2-5.0 [facility] Comment on above: Order Comment: 1Y Performed By: #### L 100.0100, L501.2450, L300.4310, L501.9100, L300.3900, L501.5425, L500.4050 #### [address] [place], [address] Albumin/Globulin [Mass ratio] 0.8 {ratio} Low 0.9-2.4 Comment on above: Order Comment: 1Y Performed By: #### L 100.0100, L501.2450, L300.4310, L501.9100, L300.3900, L501.5425, L500.4050 #### [address] [place], [address] ALK P 110 U/L Normal 45-117 Comment on above: Order Comment: 1Y Performed By: #### L 100.0100, L501.2450, L300.4310, L501.9100, L300.3900, L501.5425, L500.4050 #### [address] [place], [address] ALT [Catalytic activity/Vol] 38 U/L Normal 16-61 Comment on above: Order Comment: 1Y Performed By: #### L 100.0100, L501.2450, L300.4310, L501.9100, L300.3900, L501.5425, L500.4050 #### [address] [place], [address] AST [Catalytic activity/Vol] 48 U/L High 15-37 Comment on above: Order Comment: 1Y Performed By: #### L 100.0100, L501.2450, L300.4310, L501.9100, L300.3900, L501.5425, L500.4050 #### [address] [place], [address] Bilirubin [Mass/Vol] 0.70 mg/dL Normal 0.20-1.00 [facility] Comment on above: Order Comment: 1Y Result Comment: For patients on eltrombopag therapy, use of Dimension [place] TBIL is not recommended. Performed By: #### L 100.0100, L501.2450, L300.4310, L501.9100, L300.3900, L501.5425, L500.4050 #### [id number] [place], [address] BUN/CRE 15.3 RATIO Normal 10-20 Comment on above: Order Comment: 1Y Performed By: #### L 100.0100, L501.2450, L300.4310, L501.9100, L300.3900, L501.5425, L500.4050 #### [id number] [place], [address] CA,Total 8.5 mg/dL Normal 8.5-10.1 Comment on above: Order Comment: 1Y Performed By: #### L 100.0100, L501.2450, L300.4310, L501.9100, L300.3900, L501.5425, L500.4050 #### [id number] [place], [address] Chloride [Moles/Vol] 89 mmol/L Low 98-107 [facility] Comment on above: Order Comment: 1Y Performed By: #### L 100.0100, L501.2450, L300.4310, L501.9100, L300.3900, L501.5425, L500.4050 #### [id number] [place], [address] CO2 [Moles/Vol] 25.0 mmol/L Normal 21.0-32.0 Comment on above: Order Comment: 1Y Performed By: #### L 100.0100, L501.2450, L300.4310, L501.9100, L300.3900, L501.5425, L500.4050 #### [id number] [place], [address] Creatinine [Mass/Vol] 0.66 mg/dL Low 0.70-1.30 [facility] Comment on above: Order Comment: 1Y Result Comment: The validity of the calculated GFR GFRAA in patients over70 years has not been determined. Clinical correlation isessential. Performed By: #### L 100.0100, L501.2450, L300.4310, L501.9100, L300.3900, L501.5425, L500.4050 #### [id number] [place], [address] ECRCL 63.97 ml/min Normal Comment on above: Order Comment: 1Y Performed By: #### L 100.0100, L501.2450, L300.4310, L501.9100, L300.3900, L501.5425, L500.4050 #### [id number] [place], [address] EST GFR - AA 155 mL/min Normal >60 Comment on above: Order Comment: 1Y Result Comment: Afri can [place] GFR Calc Performed By: #### L 100.0100, L501.2450, L300.4310, L501.9100, L300.3900, L501.5425, L500.4050 #### [id number] [place], [address] GAP 7 Normal 5-15 Comment on above: Order Comment: 1Y Performed By: #### L 100.0100, L501.2450, L300.4310, L501.9100, L300.3900, L501.5425, L500.4050 #### [id number] [place], [address] GFR/1.73 sq M.predicted among non-blacks MDRD (S/P/Bld) [Vol rate/Area] 128 mL/min/{1.73_m2} Normal >60 [facility] Comment on above: Order Comment: 1Y Result Comment: Non- GFR Calc Performed By: #### L 100.0100, L501.2450, L300.4310, L501.9100, L300.3900, L501.5425, L500.4050 #### [address] [place], [address] Globulin (S) [Mass/Vol] 3.9 g/dL Normal 2.2-4.2 [facility] Comment on above: Order Comment: 1Y Performed By: #### L 100.0100, L501.2450, L300.4310, L501.9100, L300.3900, L501.5425, L500.4050 #### [id number] [place], [address] Glucose [Mass/Vol] 83 mg/dL Normal 74-106 [facility] Comment on above: Order Comment: 1Y Performed By: #### L 100.0100, L501.2450, L300.4310, L501.9100, L300.3900, L501.5425, L500.4050 #### [address] [place], [address] Potassium [Moles/Vol] 3.4 mmol/L Low 3.5-5.1 [facility] Comment on above: Order Comment: 1Y Performed By: #### L 100.0100, L501.2450, L300.4310, L501.9100, L300.3900, L501.5425, L500.4050 #### [address] [place], [address] Sodium [Moles/Vol] 122 mmol/L Low 136-145 [facility] Comment on above: Order Comment: 1Y Performed By: #### L 100.0100, L501.2450, L300.4310, L501.9100, L300.3900, L501.5425, L500.4050 #### [address] [place], [address] T PROT 6.9 g/dL Normal 6.4-8.2 Comment on above: Order Comment: 1Y Performed By: #### L 100.0100, L501.2450, L300.4310, L501.9100, L300.3900, L501.5425, L500.4050 #### [id number] [place], [address] Urea nitrogen [Mass/Vol] 10 mg/dL Normal 7-18 Comment on above: Order Comment: 1Y Performed By: #### L 100.0100, L501.2450, L300.4310, L501.9100, L300.3900, L501.5425, L500.4050 #### [address] [place], [address] Emergency Department Summary on 11-06-2024 Emergency Department Summary Normal Epithelial cells.squamous LM Ql (Urine sed)Ordered By: Malcolm Christy on 11-06-2024 Epithelial cells.squamous LM.HPF (Urine sed) [#/Area] 0 /[HPF] 0-5 [facility] Glucose Ql (U)Ordered By: Josef erik Abrahamanna on 11-06-2024 Urine Glucose (UA) Normal mg/dl Normal [facility] Influenza virus A and B and SARS-CoV-2 (COVID-19) and Respiratory syncytial virus RNAOrdered By: Malcolm Christy on 11-06-2024 SARS-CoV-2 (COVID-19) RNA ALVARO+probe Ql (Unsp spec) International normalized rat io (INR) calculationOrdered By: Malcolmerik Christy on 11-06-2024 INR Coag (Bld) [Relative time] 0.9 {INR} Ketones Test strip Ql (U)Ord ered By: Malcolmerik Christy on 11-06-2024 Ketones Ql (U) Negative Negative L501.5425on 11-06-2024 TROPONIN-I HS 14 pg/mL Normal 3.0-78.0 Comment on above: Order Comment: 1Y Result Comment: Plea se Note: New Test Units and Gender Specific Reference Ranges. For more information see Policy Stat Procedure [place] High Sensitivity Troponin (TNIH) and attachments. Performed By: #### L 100.0100, L501.2450, L300.4310, L501.9100, L300.3900, L501.5425, L500.4050 #### [id number] [place], [place], [id number] Lipaseon 11-06-2024 Lipase [Catalytic activity/Vol] 35 U/L Normal 13-75 Comment on above: Order Comment: 1Y Result Comment: Plea se note:LIPASE revised reference range effective 23.New Lipase methodology. Expected to produce lower valuesthan the previous assay method.NEW Reference Range: 13 - 75 U/L Performed By: #### L 100.0100, L501.2450, L300.4310, L501.9100, L300.3900, L501.5425, L500.4050 #### [id number] [place], [place], [id number] Lipase measurementOrdered By : Malcolm Christy on 11-06-2024 Lipase [Catalytic activity/Vol] 35 U/L 13-75 Comment on above: Please note:LIPASE r evised reference range effective 23. New Lipase methodology. Expected to produce lower values than the previous assay method. NEW Reference Range: 13 - 75 U/L M100.678on 11-06-2024 M100.678 Pending SARS-CoV-2 (COVID 19) Negative INFLUENZA A Negative INFLUENZA B Negative RSV PCR Negative Normal Comment on above: Performed By: #### M 100.678 #### [id number] [place], [place], [id number] Microscopic analysis of urin e for red blood cells (RBC)Ordered By: Malcolm Christy on 11-06-2024 Urine RBC 0 SEEN /hpf 0-5 Mucus LM Ql (Urine sed)Order ed By: Malcolm Christy on 11-06-2024 Mucus Ql (Urine sed) 0 SEEN /hpf [facility] Nitrite Test strip Ql (U)Ord ered By: Malcolm Christy on 11-06-2024 Nitrite Ql (U) Negative Negative Partial Thromboplast Timeon 11-06-2024 aPTT Coag (Bld) [Time] 31.0 s Normal 24.1-36.2 [facility] Comment on above: Performed By: #### L 100.0100, L501.2450, L300.4310, L501.9100, L300.3900, L501.5425, L500.4050 #### [id number] [place], [place], [id number] Protein Test strip Ql (U)Ord ered By: Malcolm Christy on 11-06-2024 Protein Ql (U) Negative Negative Prothrombin Time w/INRon INR Coag (PPP) [Relative time] 0.9 {INR} Normal Comment on above: Performed By: #### L 100.0100, L501.2450, L300.4310, L501.9100, L300.3900, L501.5425, L500.4050 #### [id number] [place], [address] PT Coag (PPP) [Time] 12.6 s Normal 11.7-14.9 [facility] Comment on above: Performed By: #### L 100.0100, L501.2450, L300.4310, L501.9100, L300.3900, L501.5425, L500.4050 #### [id number] [facility] [address] Prothrombin timeOrdered By: Malcolm Christy on 11-06-2024 PT Coag (PPP) [Time] 12.6 s 11.7-14.9 [facility] Serum ethanol measurementOrd ered By: Malcolm Christy on 11-06-2024 Ethyl Alcohol Level 54.0 mg/dL [facility] Comment on above: The serum:whole bloo d ethanol ratio is approximately 1.14and varies slightly with hematocrit. Medical Alcohol reference interval and critical value innon-tolerant individuals; 50 - 100 Impairment 100 Intoxication 100 - 250 Severe Poisoning 250 - 400 Deep/possible fatal coma Urinalysis, Completeon 11-06 BACTERIA 0 SEEN Normal None Seen Comment on above: Order Comment: CLEAN CATCH Performed By: #### L 400.0001 #### [id number] [facility] [address] EPI,SQUAMOUS 0 SEEN Normal 0-5 Comment on above: Order Comment: CLEAN CATCH Performed By: #### L 400.0001 #### [id number] [place], [address] Mucus Ql (Urine sed) 0 SEEN Normal [facility] Comment on above: Order Comment: CLEAN CATCH Performed By: #### L 400.0001 #### [id number] [place], [address] RBC 0 SEEN Normal 0-5 Comment on above: Order Comment: CLEAN CATCH Performed By: #### L 400.0001 #### [id number] [place], [address] Urine blood detectionOrdered By: Malcolm Chirsty on 11-06-2024 Urine Occult Blood Negative Negative [facility] Urine clarityOrdered By: Leticia Christy on 11-06-2024 Clarity (U) Sl. Cloudy Clear Urine color determinationOrd ered By: Malcolm Christy on 11-06-2024 Color (U) Yellow Yellow Urine leukocyte esterase det ection by dipstickOrdered By: Malcolm Christy on 11-06-2024 Leukocyte esterase Test strip Ql (U) 25 /ul High Negative Urine pHOrdered By: Malcolm schofield on 11-06-2024 pH (U) 6.5 [pH] 5.0 - 8.0 Urine sediment bacteria coun t by microscopy (number/high power field)Ordered By: Malcolm Christy on 11-06-2024 Bacteria LM.HPF (Urine sed) [#/Area] 0 /[HPF] None Seen Urine specific gravity measu rementOrdered By: Malcolm Christy on 11-06-2024 Specific gravity (U) [Rel density] 1.015 1.002-1.03 0 Urobilinogen Ql (U)Ordered B y: Malcolm Christy on 11-06-2024 Urine Urobilinogen Normal mg/dl Normal [facility] White blood cell countOrdere d By: Malcolm Christy on 11-06-2024 Urine WBC 0-5 SEEN /hpf 0-5 aPTT Coag (PPP) [Time]Ordere d By: Malcolm Christy on 11-06-2024 aPTT Coag (Bld) [Time] 31.0 s 24.1-36.2 [facility] Bedside Glucoseon 09-08-2024 FINGERSTICK GLU 97 mg/dL Normal 74-106 Comment on above: Result Comment: HIMA MAK OF PATIENT CARE PER NURSING PROTOCOL Performed By: #### L 501.080 #### [id number] [place], [address] 12 Lead EKGon 09-07-2024 12 Lead EKG Normal Alcohol, Blood (Medical)-Ser umon 09-07-2024 SERUM ETOH 39.0 mg/dL Normal Comment on above: Result Comment: The serum:whole blood ethanol ratio is approximately 1.14and varies slightly with hematocrit.Medical Alcohol reference interval and critical value innon-tolerant individuals; 50 - 100 Impairment 100 Intoxication 100 - 250 Severe Poisoning 250 - 400 Deep/possible fatal coma Performed By: #### L 100.0100, L500.2500, L501.9100 #### [id number] [place], [address] Basic Metabolic Profile (BMP )on 09-07-2024 BUN/CRE 11.8 RATIO Normal - Comment on above: Performed By: #### L 100.0100, L500.2500, L501.9100 #### [address] [place], [address] CA,Total 8.9 mg/dL Normal 8.5-10.1 Comment on above: Performed By: #### L 100.0100, L500.2500, L501.9100 #### [id number] [place], [address] Chloride [Moles/Vol] 92 mmol/L Low 98-107 [facility] Comment on above: Performed By: #### L 100.0100, L500.2500, L501.9100 #### [address] [place], [address] CO2 [Moles/Vol] 23.0 mmol/L Normal 21.0-32.0 Comment on above: Performed By: #### L 100.0100, L500.2500, L501.9100 #### [id number] [place], [address] Creatinine [Mass/Vol] 0.68 mg/dL Low 0.70-1.30 [facility] Comment on above: Result Comment: The validity of the calculated GFR GFRAA in patients over70 years has not been determined. Clinical correlation isessential. Performed By: #### L 100.0100, L500.2500, L501.9100 #### [address] [place], [address] ECRCL 67.09 ml/min Normal Comment on above: Performed By: #### L 100.0100, L500.2500, L501.9100 #### [id number] [place], [address] EST GFR - AA 149 mL/min Normal >60 Comment on above: Result Comment: Afri can [place]ritrean GFR Calc Performed By: #### L 100.0100, L500.2500, L501.9100 #### [address] [place], [address] GAP 10 Normal 5-15 Comment on above: Performed By: #### L 100.0100, L500.2500, L501.9100 #### [address] [place], [address] GFR/1.73 sq M.predicted among non-blacks MDRD (S/P/Bld) [Vol rate/Area] 123 mL/min/{1.73_m2} Normal >60 [facility] Comment on above: Result Comment: Non- GFR Calc Performed By: #### L 100.0100, L500.2500, L501.9100 #### [address] [place], [address] Glucose [Mass/Vol] 90 mg/dL Normal 74-106 [facility] Comment on above: Performed By: #### L 100.0100, L500.2500, L501.9100 #### [id number] [place], [address] Potassium [Moles/Vol] 3.6 mmol/L Normal 3.5-5.1 [facility] Comment on above: Performed By: #### L 100.0100, L500.2500, L501.9100 #### [address] [place], [address] Sodium [Moles/Vol] 125 mmol/L Low 136-145 [facility] Comment on above: Performed By: #### L 100.0100, L500.2500, L501.9100 #### [address] [place], [address] Urea nitrogen [Mass/Vol] 8 mg/dL Normal 7-18 Comment on above: Performed By: #### L 100.0100, L500.2500, L501.9100 #### [address] [place], [address] Brain/Head without Contrasto n 10-30-2023 Brain/Head without Contrast Normal CBC W/Diff, Automatedon 10-3 0-4 Absolute Lymph 2.08 X10 3/uL Normal 0.83-4.51 Comment on above: Performed By: #### L 100.0100, L500.2500, L501.9100 #### [address] [place], [address] Absolute Neut 5.5 X10 3/uL Normal 2.0-7.7 Comment on above: Performed By: #### L 100.0100, L500.2500, L501.9100 #### [address] [place], [address] Basophils/100 WBC (Bld) 0.8 % Normal 0-1 [facility] Comment on above: Performed By: #### L 100.0100, L500.2500, L501.9100 #### [address] [place], [address] Eosinophils/100 WBC (Bld) 1.9 % Normal 0-5 Comment on above: Performed By: #### L 100.0100, L500.2500, L501.9100 #### [address] [place], [address] Erythrocyte distribution width (RBC) [Ratio] 12.3 % Normal 11.6-14.6 Comment on above: Performed By: #### L 100.0100, L500.2500, L501.9100 #### [id number] [place], [address] Hematocrit (Bld) [Volume fraction] 41.0 % Normal 40-54 Comment on above: Performed By: #### L 100.0100, L500.2500, L501.9100 #### [address] [place], [address] Hemoglobin (Bld) [Mass/Vol] 14.6 g/dL Normal 13.0-16. 5 Comment on above: Performed By: #### L 100.0100, L500.2500, L501.9100 #### [address] [place], [address] IG% 1.000 High 0.0-0.9 Comment on above: Result Comment: IG% - Immature Granulocytes (promyelocytes, myelocytes andmetamyelocytes) > 1% indicates that a LEFT SHIFT is Present. Performed By: #### L 100.0100, L500.2500, L501.9100 #### [address] [place], [address] Lymphocytes/100 WBC (Bld) 22.9 % Normal 19-41 Comment on above: Performed By: #### L 100.0100, L500.2500, L501.9100 #### [address] [place], [address] MCH (RBC) [Entitic mass] 31.6 pg Normal 27.0-32.0 Comment on above: Performed By: #### L 100.0100, L500.2500, L501.9100 #### [address] [place], [address] MCHC (RBC) [Mass/Vol] 35.6 g/dL Normal 32-36 [facility] Comment on above: Performed By: #### L 100.0100, L500.2500, L501.9100 #### [address] [place], [address] MCV (RBC) [Entitic vol] 88.7 fL Normal 80-94 [facility] Comment on above: Performed By: #### L 100.0100, L500.2500, L501.9100 #### [address] [place], [address] Monocytes/100 WBC (Bld) 13.2 % High 0-10 [facility] Comment on above: Performed By: #### L 100.0100, L500.2500, L501.9100 #### [address] [place], [address] Neutrophils/100 WBC (Bld) 60.2 % Normal 47-70 Comment on above: Performed By: #### L 100.0100, L500.2500, L501.9100 #### [address] [place], [address] Nucleated RBC (Bld) [#/Vol] 0 10*3/uL Normal 0-5 Comment on above: Performed By: #### L 100.0100, L500.2500, L501.9100 #### [address] [place], [address] Platelet mean volume (Bld) [Entitic vol] 9.1 fL Normal 6.2-12.0 Comment on above: Performed By: #### L 100.0100, L500.2500, L501.9100 #### [address] [place], [address] Platelets (Bld) [#/Vol] 457 10*3/uL High 150-450 Comment on above: Performed By: #### L 100.0100, L500.2500, L501.9100 #### [address] [place], [address] RBC (Bld) [#/Vol] 4.62 10*6/uL Normal 4.6-6.2 [facility] Comment on above: Performed By: #### L 100.0100, L500.2500, L501.9100 #### [address] [place], [address] RDW SD 40.1 fl Normal 35.1-43.9 Comment on above: Performed By: #### L 100.0100, L500.2500, L501.9100 #### [address] [place], [address] WBC (Bld) [#/Vol] 9.1 10*3/uL Normal 4.4-11.0 [facility] Comment on above: Performed By: #### L 100.0100, L500.2500, L501.9100 #### [address] [place], [address] Emergency Department Summary on 09-07-2024 Emergency Department Summary Normal M100.678on 09-07-2024 M100.678 Pending SARS-CoV-2 (COVID 19) Negative INFLUENZA A Negative INFLUENZA B Negative RSV PCR Negative Normal Comment on above: Performed By: #### M 100.678 #### [address] [place], [place], [address] .GFRon 06-16-2024 GFR 115 ml/min/1.73sqm Normal [facility] ([place]) Comment on above: Result Comment: GFR Population [...] square meters Performed By: #### G , [facility] #### [address] [address] GFR Non- 94 ml/min/1.73sqm Normal [facility] [place] Comment on above: Result Comment: GFR Population [...] Performed By: #### G , CMP #### [address] [address] CMPon 06-16-2024 Albumin Level 3.4 G/dL Normal 3.4-4.8 [facility] ([place] Comment on above: Performed By: #### Mary LOPEZ, CMP #### [address] [address] Albumin/Globulin [Mass ratio] 0.8 {ratio} Low 1.1-2.5 [facility] ([place] Comment on above: Performed By: #### Mary LOPEZ, CMP #### [address] [address] ALP [Catalytic activity/Vol] 105 U/L Normal 40-135 [facility] ([place] Comment on above: Performed By: #### Mary LOPEZ, CMP #### [address] [address] ALT [Catalytic activity/Vol] 30 U/L Normal 16-63 [facility] ([place] Comment on above: Performed By: #### Mary LOPEZ, CMP #### [address] [address] AST [Catalytic activity/Vol] 35 U/L Normal 10-40 [facility] ([place] Comment on above: Performed By: #### Mary LOPEZ, CMP #### [address] [address] Bili Total 1.0 mg/dL Normal 0.2-1.0 [facility] ([place] Comment on above: Result Comment: Use of this assay is not recommended for patients undergoing treatment with eltrombopag due to the potential for falsely elevated results. Performed By: #### G , CMP #### [address] [address] BUN/Creatinine Ratio 12 ratio Normal 7-27 [facility] ([place]) Comment on above: Performed By: #### Mary LOPEZ, CMP #### [address] [address] Calcium [Mass/Vol] 9.2 mg/dL Normal 8.4-10.2 [facility] ([place]) Comment on above: Performed By: #### G , CMP #### [address] [address] Chloride [Moles/Vol] 99 mmol/L Normal 98-107 [facility] ([place]) Comment on above: Performed By: #### G FR, CMP #### [address] [address] CO2 [Moles/Vol] 30 mmol/L Normal 23-31 [facility] ([place] Comment on above: Performed By: #### G , CMP #### [address] [address] Creatinine [Mass/Vol] 0.81 mg/dL Normal 0.70-1.30 [facility] ([place]) Comment on above: Performed By: #### G , CMP #### [address] [address] Electrolyte Balance 5.0 mEq/L Normal 4.0-15.0 [facility] ([place]) Comment on above: Performed By: #### G , CMP #### [address] [address] Globulin 4.1 G/dL Normal [facility] ([place] Comment on above: Performed By: #### G FR, CMP #### [address] [address] Glucose [Mass/Vol] 95 mg/dL Normal 80-115 [facility] ([place]) Comment on above: Performed By: #### G FR, CMP #### [address] [address] Potassium [Moles/Vol] 5.1 mmol/L Normal 3.5-5.1 [facility] ([place]) Comment on above: Performed By: #### G FR, CMP #### [address] [address] Sodium [Moles/Vol] 134 mmol/L Low 136-145 [facility] ([place]) Comment on above: Performed By: #### G FR, CMP #### [address] [place], [place] [address] Total Protein 7.5 G/dL Normal 6.4-8.2 [facility] ([place] Comment on above: Performed By: #### G FR, CMP #### [facility] [address] [place], [place] [address] Urea nitrogen [Mass/Vol] 10 mg/dL Normal 7-18 [facility] ([place] Comment on above: Performed By: #### G FR, CMP #### [address] [place], [place] [address] LABORATORYOrdered By: SYSTEM SYSTEM on 06-16-2024 Albumin [...] Auto (Unsp spec) [#/Vol] 2.20 10*3/uL 0.83-4.51 Activated partial thrombopla stin time (aPTT) in platelet poor plasma by coagulation aOrdered By: Pierre Catalan on 01-08-2024 aPTT Coag (PPP) [Time] 32.2 s 24.1-36.2 [facility] Automated lymphocyte count a s percentage of total leukocytesOrdered By: Emma Wilson on 01-08-2024 Lymphocytes/100 WBC Auto (Unsp spec) 25.8 % 19-41 Basophil percentageOrdered B y: Emma Wilson on 01-08-2024 Basophils/100 WBC (Bld) 0.5 % 0-1 [facility] Bilirubin [Mass/Vol] 0.60 mg/dL 0.20-1.00 [facility] Comment on above: For patients on eltr ombopag therapy, use of Dimension [place] TBIL is not recommended. Chloride [Moles/Vol] 107 mmol/L 98-107 [facility] Cholesterol [Mass/Vol] 159 mg/dL <200 [facility] Comment on above: <200 mg/dL Desirable 200-240 mg/dL Borderline >240 mg/dL High Risk Eosinophils/100 WBC (Bld) 0.9 % 0-5 Glucose [Mass/Vol] 84 mg/dL 74-106 [facility] Hemoglobin (Bld) [Mass/Vol] 13.4 g/dL 13.0-16. 5 Monocytes/100 WBC (Bld) 9.7 % 0-10 [facility] Neutrophils (Bld) [#/Vol] 5.4 10*3/uL 2.0-7.7 Neutrophils/100 WBC (Bld) 63.0 % 47-70 Potassium [Moles/Vol] 4.4 mmol/L 3.5-5.1 [facility] Protein [Mass/Vol] 6.4 g/dL 6.4-8.2 [facility] Sodium [Moles/Vol] 134 mmol/L 136-145 [facility] Triglyceride [Mass/Vol] 61 mg/dL <199 [facility] Comment on above: The drugs N-Acetylcy steine and Metamizole may falsely depress this assay.Serum Triglycerides Reference Interval Normal <150 mg/dL Borderline high 150 - 199 mg/dL High 200 - 499 mg/dL Very High > or = 500 mg/dL WBC (Bld) [#/Vol] 8.5 10*3/uL 4.4-11.0 [facility] Determination of erythrocyte mean corpuscular volume (MCV)Ordered By: Emma Wilson on 01-08-2024 MCV (RBC) [Entitic vol] 89.2 fL 80-94 [facility] Erythrocyte distribution wid th ratioOrdered By: Emma Wilson on 01-08-2024 Erythrocyte distribution width (RBC) [Ratio] 13.1 % 11.6-14.6 Erythrocyte distribution wid th standard deviationOrdered By: Emma Wilson on 01-08-2024 Erythrocyte distribution width (RBC) [Entitic vol] 42.7 fL 35.1-43.9 [facility] Hematocrit Auto (Bld) [Volum e fraction]Ordered By: Emma Wilson on 01-08-2024 Hematocrit (Bld) [Volume fraction] 38.9 % 40-54 Immature granulocytes/100 WB C Auto (Bld)Ordered By: Emma Wilson on 01-08-2024 Immature granulocytes/100 WBC (Bld) 0.100 % 0.0-0.9 Comment on above: IG% - Immature Granu locytes (promyelocytes, myelocytes and metamyelocytes) > 1% indicates that a LEFT SHIFT is Present. Laboratory - Chemistry and C hemistry - challengeOrdered By: Emma Wilson on 01-08-2024 Albumin/Globulin [Mass ratio] 0.8 {ratio} 0.9-2.4 ALP [Catalytic activity/Vol] 93 U/L 45-117 ALT [Catalytic activity/Vol] 35 U/L 16-61 Cholesterol in HDL [Mass/Vol] 71 mg/dL >40 Comment on above: The drugs N-Acetylcy steine and Metamizole may falsely depress this assay. Reference Range HDL <40 mg/dL Low HDL Cholesterol HDL >or= 60 mg/dL High HDL Cholesterol Cholesterol in LDL [Mass/Vol] 76 mg/dL 0-130 CO2 [Moles/Vol] 24.0 mmol/L 21.0-32.0 Globulin (S) [Mass/Vol] 3.6 g/dL 2.2-4.2 [facility] Urea nitrogen/Creatinine [Mass ratio] 17.5 mg/mg 10-20 Laboratory - CoagulationOrde red By: Pierre Catalan on 01-08-2024 INR Coag (Bld) [Relative time] 1.0 {INR} PT Coag (PPP) [Time] 12.7 s 11.7-14.9 [facility] Laboratory - Hematology and Cell countsOrdered By: Emma Wilson on 01-08-2024 MCH (RBC) [Entitic mass] 30.7 pg 27.0-32.0 MCHC (RBC) [Mass/Vol] 34.4 g/dL 32-36 [facility] Nucleated RBC/100 WBC (Bld) [Ratio] 0 % 0-5 Platelet mean volume (Bld) [Entitic vol] 9.6 fL 6.2-12.0 Platelets (Bld) [#/Vol] 289 10*3/uL 150-450 Laboratory - Hematology and Cell countsOrdered By: Pierre Catalan on 01-08-2024 Platelets (Bld) [#/Vol] 327 10*3/uL 150-450 No Panel InformationOrdered By: Emma Wilson on 01-08-2024 Troponin I High Sensitivity 16 pg/mL 3.0-78.0 Comment on above: Please Note: [place] t Units and Gender Specific Reference Ranges. For more information see Policy Stat Procedure [place] High Sensitivity Troponin (TNIH) and attachments. Estimated Creatinine Clearance Calc 67.50 ml/min Estimated GFR (MDRD) Amer 163 mL/min >60 Comment on above: GFR Calc Estimated GFR (MDRD) Non-Af Amer 135 mL/min >60 Comment on above: Non- GFR Calc VLDL Cholesterol 12 mg/dL 5-40 RBC Auto (Bld) [#/Vol]Ordere d By: Emma Wilson on 01-08-2024 RBC (Bld) [#/Vol] 4.36 10*6/uL 4.6-6.2 [facility] Serum or plasma calcium francoise urement (mass/volume)Ordered By: Emma Wilson on 01-08-2024 Calcium [Mass/Vol] 8.5 mg/dL 8.5-10.1 [facility] Serum or plasma creatinine m easurement (mass/volume)Ordered By: Emma Wilson on 01-08-2024 Creatinine [Mass/Vol] 0.63 mg/dL 0.70-1.30 [facility] Comment on above: The validity of the calculated GFR & GFRAA in patients over 70 years has not been determined. Clinical correlation is essential. Serum or plasma urea nitroge n measurement (mass/volume)Ordered By: Emma Wilson on 01-08-2024 Urea nitrogen [Mass/Vol] 11 mg/dL 7-18 Thin prep Papanicolaou smear with manual screeningOrdered By: Emma Wilson on 01-08-2024 Thin prep Papanicolaou smear with manual screening 2.8 g/dL 3.2-5.0 [facility] Thin prep Papanicolaou smear with manual screening 33 U/L 15-37 [facility] Thin prep Papanicolaou smear with manual screening 3 5-15 [facility] PET/CT INITIAL STAGING TUMOR SKULL [id number] 12-31-2023 PET/CT INITIAL STAGING TUMOR SKULL [id number] ORIGINAL EXAMINATION: PET TUMOR IMAGING SKULL-THIGH12/31/2023 1:54 pm TECHNIQUE: Intravenous injection of 12 mCi Fluorine-18 fluorodeoxyglucose (FDG) was administered, followed by acquisition of positron emission tomographic images from the skull base to mid thigh, with concurrent low-dose CT for attenuation correction and anatomic localization utilizing a combined PET/CT scanner. PET images were fused with low-dose CT at the workstation. Dose [id number] time:61 min Serum glucose level: 109 mg/dl [...] prevascular, and right internal mammary stations. A disability representative AP window lymph node measures 13 [...] 12/31/2023 3:19:15 PM Ordering Provider: JESUS Hebert [facility] ([place]) CT THORAX SCREENING W/O CONT Kam 12-22-2023 [...] image 39 measuring 8 mm. An additional disability representative left upper lobe nodule on image 57 measures 5 mm. A disability representative right lower lobe nodule on image 70 measures 4 mm. A disability representative irregular right upper lobe nodule on [...] 12/22/2023 11:56:17 AM Ordering Provider: JESUS CALLAHAN [facility] ([place]) .GFRon 11-27-2023 GFR 107 ml/min/1.73sqm Normal [facility] ([place]) Comment on above: Result Comment: GFR Population [...] #### L IPID, PSA, CMP, GFR #### [address] [address] GFR Non- 88 ml/min/1.73sqm Normal [facility] ([place] Comment on above: Result Comment: GFR Population [...] #### L IPID, PSA, CMP, GFR #### [address] [address] CMPon 11-27-2023 Albumin Level 3.5 G/dL Normal 3.4-4.8 [facility] ([place]) Comment on above: Performed By: #### L IPID, PSA, CMP, GFR #### [address] [address] Albumin/Globulin [Mass ratio] 0.9 {ratio} Low 1.1-2.5 [facility] ([place]) Comment on above: Performed By: #### L IPID, PSA, CMP, GFR #### [address] [address] ALP [Catalytic activity/Vol] 122 U/L Normal 40-135 [facility] ([place] Comment on above: Performed By: #### L IPID, PSA, CMP, GFR #### [address] [address] ALT [Catalytic activity/Vol] 39 U/L Normal 16-63 [facility] ([place] Comment on above: Performed By: #### L IPID, PSA, CMP, GFR #### [address] [address] AST [Catalytic activity/Vol] 39 U/L Normal 10-40 [facility] ([place] Comment on above: Performed By: #### L IPID, PSA, CMP, GFR #### [address] [address] Bili Total 0.9 mg/dL Normal 0.2-1.0 [facility] ([place]) Comment on above: Result Comment: Use of this assay is not recommended for patients undergoing treatment with eltrombopag due to the potential for falsely elevated results. Performed By: #### L IPID, PSA, CMP, GFR #### [address] [address] BUN/Creatinine Ratio 14 ratio Normal 7-27 [facility] ([place]) Comment on above: Performed By: #### L IPID, PSA, CMP, GFR #### [address] [address] Calcium [Mass/Vol] 9.5 mg/dL Normal 8.4-10.2 [facility] ([place]) Comment on above: Performed By: #### L IPID, PSA, CMP, GFR #### [address] [address] Chloride [Moles/Vol] 100 mmol/L Normal 98-107 [facility] ([place]) Comment on above: Performed By: #### L IPID, PSA, CMP, GFR #### [address] [address] CO2 [Moles/Vol] 27 mmol/L Normal 23-31 [facility] ([place]) Comment on above: Performed By: #### L IPID, PSA, CMP, GFR #### [address] [address] Creatinine [Mass/Vol] 0.86 mg/dL Normal 0.70-1.30 [facility] ([place]) Comment on above: Performed By: #### L IPID, PSA, CMP, GFR #### [address] [address] Electrolyte Balance 10.0 mEq/L Normal 4.0-15.0 [facility] ([place]) Comment on above: Performed By: #### L IPID, PSA, CMP, GFR #### [address] [address] Globulin 4.1 G/dL Normal [facility] ([place] Comment on above: Performed By: #### L IPID, PSA, CMP, GFR #### [address] [address] Glucose [Mass/Vol] 98 mg/dL Normal 80-115 [facility] ([place]) Comment on above: Performed By: #### L IPID, PSA, CMP, GFR #### [address] [address] Potassium [Moles/Vol] 4.9 mmol/L Normal 3.5-5.1 [facility] ([place]) Comment on above: Performed By: #### L IPID, PSA, CMP, GFR #### [address] [address] Sodium [Moles/Vol] 137 mmol/L Normal 136-145 [facility] ([place]) Comment on above: Performed By: #### L IPID, PSA, CMP, GFR #### [facility] [address], [place] [address] Total Protein 7.6 G/dL Normal 6.4-8.2 [facility] ([place]) Comment on above: Performed By: #### L IPID, PSA, CMP, GFR #### Chan Malcolm [address], [place] [address] Urea nitrogen [Mass/Vol] 12 mg/dL Normal 7-18 [facility] ([place] Comment on above: Performed By: #### L IPID, PSA, CMP, GFR #### Chan Malcolm [address], [place] [address] LABORATORYOrdered By: SYSTEM SYSTEM on 11-27-2023 Albumin [...] 11-27-2023 Cholesterol [Mass/Vol] 207 mg/dL High 0-200 [facility] ([place]) Comment on above: Result Comment: Chol esterol Reference Interval: Less than 200 Desirable 200-239 Borderline high risk 240 and above High risk Performed By: #### L IPID, PSA, CMP, GFR #### [address] [address] Cholesterol in HDL [Mass/Vol] 86 mg/dL High 40-60 [facility] ([place]) Comment on above: Performed By: #### L IPID, PSA, CMP, GFR #### [address] [address] Cholesterol in LDL [Mass/Vol] 111 mg/dL Normal 0-130 [facility] ([place]) Comment on above: Performed By: #### L IPID, PSA, CMP, GFR #### [address] [address] Triglyceride [Mass/Vol] 48 mg/dL Normal 0-150 [facility] ([place]) Comment on above: Result Comment: Trig lyceride Reference Interval: Less than 150 Normal 150-199 Borderline high risk 200-499 High risk 500 or higher Very high risk Performed By: #### L IPID, PSA, CMP, GFR #### [facility] [address], [place] [address] PSAon 11-27-2023 Prostate Specific Antigen 1.53 ng/mL Normal 0.00-4.00 [facility] ([place]) Comment on above: Performed By: #### L IPID, PSA, CMP, GFR #### [facility] [address], [place] [address] No Panel Informationon 09-24 Culture Urine No growth at 48 hours. [facility] Work Phone: LABORATORYOrdered By: Rachel Marcelo [...] 08:30-0400 Body height 162.56 cm JESUS LONDON [employer] Work Phone: 07-26-2025 08:30-0400 Body mass index (BMI) [Ratio] 18 kg/m2 JESUS LONDON [employer]PER[employer]C Work Phone: 07-26-2025 08:30-0400 Body temperature 97.6 [degF] JESUS LONDON [employer] Work Phone: 07-26-2025 08:30-0400 Body weight 47.62 kg JESUS LONDON [employer] OPERATOR[employer]C Work Phone: 07-26-2025 08:30-0400 Diastolic blood pressure 68 mm[Hg] JESUS LONDON [employer] OPERATOR[employer]C Work Phone: 07-26-2025 08:30-0400 Heart rate 63 /min JESUS LONDON [employer] Work Phone: 07-26-2025 08:30-0400 Respiratory rate 16 /min JESUS LONDON [employer] OPERATOR-C Work Phone: 07-26-2025 08:30-0400 SaO2% (BldA) [Mass fraction] 100 % JESUS LONDON [employer]PERATOR[employer]C Work Phone: 07-26-2025 08:30-0400 Systolic blood pressure 123 mm[Hg] JESUS LONDON [employer]AD[employer] OPERATOR-C Work Phone: 07-19-2025 10:07-0400 Body height 162.56 cm JESUS LONDON [employer] OPERATOR-C Work Phone: 07-19-2025 10:07-0400 Body mass index (BMI) [Ratio] 18.2 kg/m2 JESUS LONDON [employer] OPERATOR-C Work Phone: 07-19-2025 10:07-0400 Body temperature 98.2 [degF] JESUS LONDON [employer] OPER[employer]C Work Phone: 07-19-2025 10:07-0400 Body weight 48.13 kg JESUS LONDON [employer] OPERATOR[employer]C Work Phone: 07-19-2025 10:07-0400 Diastolic blood pressure 71 mm[Hg] JESUS LONDON [employer] OPERATOR[employer]C Work Phone: 07-19-2025 10:07-0400 Heart rate 64 /min JESUS LONDON [employer] Work Phone: 07-19-2025 10:07-0400 Respiratory rate 16 /min JESUS LONDON [employer] OPERATOR[employer]C Work Phone: 07-19-2025 10:07-0400 SaO2% (BldA) [Mass fraction] 98 % JESUS LONDON [employer]C Work Phone: 07-19-2025 10:07-0400 Systolic blood pressure 104 mm[Hg] JESUS LONDON [employer]AD[employer] OPERATOR-C Work Phone: 07-06-2025 13:51-0400 Body temperature 97.3 [degF] JESUS LONDON [employer] OPERATOR[employer]C Work Phone: 07-06-2025 13:51-0400 Diastolic blood pressure 52 mm[Hg] JESUS LONDON [employer] OPERATOR[employer]C Work Phone: 07-06-2025 13:51-0400 Heart rate 92 /min JESUS LONDON [employer] OPERATOR[employer]C Work Phone: 07-06-2025 13:51-0400 Respiratory rate 16 /min JESUS LONDON [employer] OPERATOR[employer]C Work Phone: 07-06-2025 13:51-0400 SaO2% (BldA) [Mass fraction] 95 % JESUS LONDON [employer] OPERATOR[employer]C Work Phone: 07-06-2025 13:51-0400 Systolic blood pressure 125 mm[Hg] JESUS LONDON [employer]ADER OPERATOR-C Work Phone: 07-05-2025 08:40-0400 Body height 162.56 cm JESUS LONDON [employer]ADER OPERATOR-C Work Phone: 07-05-2025 08:40-0400 Body mass index (BMI) [Ratio] 17.9 kg/m2 JESUS LONDON [employer] OPERATOR[employer]C Work Phone: 07-05-2025 08:40-0400 Body temperature 98.3 [degF] JESUS LONDON [employer]AD[employer] OPERATOR-C Work Phone: 07-05-2025 08:40-0400 Body weight 47.4 kg JESUS LONDON [employer]ADER OPERATOR-C Work Phone: 07-05-2025 08:40-0400 Diastolic blood pressure 76 mm[Hg] JESUS LONDON [employer]AD[employer] OPERATOR-C Work Phone: 07-05-2025 08:40-0400 Heart rate 63 /min JESUS LONDON [employer] OPERATOR[employer]C Work Phone: 07-05-2025 08:40-0400 Respiratory rate 18 /min JESUS LONDON [employer] OPERATOR[employer]C Work Phone: 07-05-2025 08:40-0400 SaO2% (BldA) [Mass fraction] 98 % JESUS LONDON [employer]AD[employer] OPERATOR-C Work Phone: 07-05-2025 08:40-0400 Systolic blood pressure 159 mm[Hg] JESUS LONDON [employer]ADER OPERATOR-C Work Phone: 06-29-2025 09:25-0400 Body height 162.56 cm JESUS LONDON GRADER OPERATOR-C Work Phone: 06-29-2025 09:25-0400 Body mass index (BMI) [Ratio] 18.1 kg/m2 JESUS LONDON [employer]AD[employer] OPERATOR[employer]C Work Phone: 06-29-2025 09:25-0400 Body temperature 98.2 [degF] JESUS LONDON [employer]AD[employer] OPERATOR-C Work Phone: 06-29-2025 09:25-0400 Body weight 48.08 kg JESUS LONDON GRADER OPERATOR-C Work Phone: 06-29-2025 09:25-0400 Diastolic blood pressure 85 mm[Hg] JESUS LONDON GRADER OPERATOR-C Work Phone: 06-29-2025 09:25-0400 Heart rate 68 /min EJSUS LONDON GRADER OPERATOR-C Work Phone: 06-29-2025 09:25-0400 Respiratory rate 18 /min JESUS LONDON [employer]ADER OPERATOR-C Work Phone: 06-29-2025 09:25-0400 SaO2% (BldA) [Mass fraction] 95 % JESUS LONDON GRADER OPERATOR-C Work Phone: 06-29-2025 09:25-0400 Systolic blood pressure 135 mm[Hg] JESUS LONDON GRADER OPERATOR-C Work Phone: 06-14-2025 13:03-0400 Body temperature 96.3 [degF] JESUS LONDON [employer]ADER OPERATOR-C Work Phone: 06-14-2025 13:03-0400 Diastolic blood pressure 50 mm[Hg] JESUS LONDON [employer]ADER OPERATOR-C Work Phone: 06-14-2025 13:03-0400 Heart rate 62 /min JESUS LONDON [employer]AD[employer] OPERATOR[employer]C Work Phone: 06-14-2025 13:03-0400 Respiratory rate 16 /min JESUS LONDON [employer]ADER OPERATOR-C Work Phone: 06-14-2025 13:03-0400 SaO2% (BldA) [Mass fraction] 98 % JESUS LONDON [employer]AD[employer] OPERATOR-C Work Phone: 06-14-2025 13:03-0400 Systolic blood pressure 99 mm[Hg] JESUS LONDON GRADER OPERATOR-C Work Phone: 06-14-2025 08:38-0400 Body height 162.56 cm JESUS LONDON GRADER OPERATOR-C Work Phone: 06-14-2025 08:38-0400 Body mass index (BMI) [Ratio] 18.2 kg/m2 JESUS LONDON [employer]AD[employer] OPERATOR-C Work Phone: 06-14-2025 08:38-0400 Body temperature 98.2 [degF] JESUS LONDON [employer]AD[employer] OPERATOR-C Work Phone: 06-14-2025 08:38-0400 Body weight 48.27 kg JESUS LONDON GRADER OPERATOR-C Work Phone: 06-14-2025 08:38-0400 Diastolic blood pressure 81 mm[Hg] JESUS LONDON GRADER OPERATOR-C Work Phone: 06-14-2025 08:38-0400 Heart rate 61 /min JESUS LONDON GRADER OPERATOR-C Work Phone: 06-14-2025 08:38-0400 Respiratory rate 18 /min JESUS LONDON GRADER OPERATOR-C Work Phone: 06-14-2025 08:38-0400 SaO2% (BldA) [Mass fraction] 97 % JESUS LONDON GRADER OPERATOR-C Work Phone: 06-14-2025 08:38-0400 Systolic blood pressure 146 mm[Hg] JESUS LONDON GRADER OPERATOR-C Work Phone: 06-12-2025 11:38-0400 Body mass index (BMI) [Ratio] 17.9 kg/m2 JESUS LONDON GRADER OPERATOR-C Work Phone: 06-12-2025 09:29-0400 Body mass index (BMI) [Ratio] 17.9 kg/m2 JESUS LONDON GRADER OPERATOR-C Work Phone: 06-12-2025 09:29-0400 Body temperature 98.3 [degF] JESUS LONDON GRADER OPERATOR-C Work Phone: 06-12-2025 09:29-0400 Body weight 47.34 kg JESUS LONDON GRADER OPERATOR-C Work Phone: 06-12-2025 09:29-0400 Diastolic blood pressure 81 mm[Hg] JESUS LONDON GRADER OPERATOR-C Work Phone: 06-12-2025 09:29-0400 Heart rate 66 /min JESUS LONDON GRADER OPERATOR-C Work Phone: 06-12-2025 09:29-0400 Respiratory rate 18 /min JESUS LONDON GRADER OPERATOR-C Work Phone: 06-12-2025 09:29-0400 SaO2% (BldA) [Mass fraction] 99 % JESUS LONDON GRADER OPERATOR-C Work Phone: 06-12-2025 09:29-0400 Systolic blood pressure 158 mm[Hg] JESUS LONDON GRADER OPERATOR-C Work Phone: 06-05-2025 15:45-0400 Body temperature 97.8 [degF] JESUS LONDON GRADER OPERATOR-C Work Phone: 06-05-2025 15:45-0400 Diastolic blood pressure 53 mm[Hg] JESUS LONDON GRADER OPERATOR-C Work Phone: 06-05-2025 15:45-0400 Heart rate 62 /min JESUS LONDON GRADER OPERATOR-C Work Phone: 06-05-2025 15:45-0400 Respiratory rate 16 /min JESUS LONDON GRADER OPERATOR-C Work Phone: 06-05-2025 15:45-0400 SaO2% (BldA) [Mass fraction] 92 % JESUS LONDON GRADER OPERATOR-C Work Phone: 06-05-2025 15:45-0400 Systolic blood pressure 114 mm[Hg] JESUS LONDON GRADER OPERATOR-C Work Phone: 06-05-2025 12:28-0400 Body height 162.56 cm JESUS LONDON GRADER OPERATOR-C Work Phone: 06-05-2025 12:28-0400 Body mass index (BMI) [Ratio] 17.7 kg/m2 JESUS LONDON GRADER OPERATOR-C Work Phone: 06-05-2025 12:28-0400 Body weight 47 kg JESUS LONDON GRADER OPERATOR-C Work Phone: 05-31-2025 12:58-0400 Body height 162.56 cm JESUS LONDON GRADER OPERATOR-C Work Phone: 05-31-2025 12:58-0400 Body mass index (BMI) [Ratio] 18.1 kg/m2 JESUS LONDON GRADER OPERATOR-C Work Phone: 05-31-2025 12:58-0400 Body weight 48.08 kg JESUS LONDON GRADER OPERATOR-C Work Phone: 05-31-2025 12:58-0400 Diastolic blood pressure 61 mm[Hg] JESUS LONDON GRADER OPERATOR-C Work Phone: 05-31-2025 12:58-0400 Respiratory rate 16 /min JESUS LONDON GRADER OPERATOR-C Work Phone: 05-31-2025 12:58-0400 Systolic blood pressure 119 mm[Hg] JESUS LONDON GRADER OPERATOR-C Work Phone: 05-29-2025 10:38-0400 Body height 162.56 cm JESUS LONDON GRADER OPERATOR-C Work Phone: 05-29-2025 10:38-0400 Body mass index (BMI) [Ratio] 18.1 kg/m2 JESUS LONDON GRADER OPERATOR-C Work Phone: 05-29-2025 10:38-0400 Body temperature 98 [degF] JESUS LONDON GRADER OPERATOR-C Work Phone: 05-29-2025 10:38-0400 Body weight 47.82 kg JESUS LONDON GRADER OPERATOR-C Work Phone: 05-29-2025 10:38-0400 Diastolic blood pressure 73 mm[Hg] JESUS LONDON GRADER OPERATOR-C Work Phone: 05-29-2025 10:38-0400 Heart rate 64 /min JESUS LONDON GRADER OPERATOR-C Work Phone: 05-29-2025 10:38-0400 Respiratory rate 18 /min JESUS LONDON GRADER OPERATOR-C Work Phone: 05-29-2025 10:38-0400 SaO2% (BldA) [Mass fraction] 99 % JESUS LONDON GRADER OPERATOR-C Work Phone: 05-29-2025 10:38-0400 Systolic blood pressure 143 mm[Hg] JESUS LONDON GRADER OPERATOR-C Work Phone: 05-01-2025 09:24-0400 Body height 162.56 cm JESUS LONDON GRADER OPERATOR-C Work Phone: 05-01-2025 09:24-0400 Body mass index (BMI) [Ratio] 18 kg/m2 JESUS LONDON GRADER OPERATOR-C Work Phone: 05-01-2025 09:24-0400 Body weight 47.62 kg JESUS LONDON GRADER OPERATOR-C Work Phone: 05-01-2025 09:17-0400 Body temperature 98.2 [degF] JESUS LONDON GRADER OPERATOR-C Work Phone: 05-01-2025 09:17-0400 Diastolic blood pressure 83 mm[Hg] JESUS LONDON GRADER OPERATOR-C Work Phone: 05-01-2025 09:17-0400 Heart rate 69 /min JESUS LONDON GRADER OPERATOR-C Work Phone: 05-01-2025 09:17-0400 Respiratory rate 16 /min JESUS LONDON GRADER OPERATOR-C Work Phone: 05-01-2025 09:17-0400 SaO2% (BldA) [Mass fraction] 98 % JESUS LONDON GRADER OPERATOR-C Work Phone: 05-01-2025 09:17-0400 Systolic blood pressure 143 mm[Hg] JESUS LONDON GRADER OPERATOR-C Work Phone: 04-19-2025 07:42-0400 Body height 162.56 cm JESUS LONDON GRADER OPERATOR-C Work Phone: 04-19-2025 07:42-0400 Body mass index (BMI) [Ratio] 18.8 kg/m2 JESUS LONDON GRADER OPERATOR-C Work Phone: 04-19-2025 07:42-0400 Body temperature 97.4 [degF] JESUS LONDON GRADER OPERATOR-C Work Phone: 04-19-2025 07:42-0400 Body weight 49.89 kg JESUS LONDON GRADER OPERATOR-C Work Phone: 04-19-2025 07:42-0400 Diastolic blood pressure 86 mm[Hg] JESUS LONDON GRADER OPERATOR-C Work Phone: 04-19-2025 07:42-0400 Heart rate 54 /min JESUS LONDON GRADER OPERATOR-C Work Phone: 04-19-2025 07:42-0400 Respiratory rate 18 /min JESUS LONDON GRADER OPERATOR-C Work Phone: 04-19-2025 07:42-0400 SaO2% (BldA) [Mass fraction] 98 % JESUS LONDON GRADER OPERATOR-C Work Phone: 04-19-2025 07:42-0400 Systolic blood pressure 142 mm[Hg] JESUS LONDON GRADER OPERATOR-C Work Phone: 04-10-2025 14:47-0400 Body temperature 97.7 [degF] JESUS LONDON GRADER OPERATOR-C Work Phone: 04-10-2025 14:47-0400 Diastolic blood pressure 65 mm[Hg] JESUS LONDON GRADER OPERATOR-C Work Phone: 04-10-2025 14:47-0400 Heart rate 58 /min JESUS LONDON GRADER OPERATOR-C Work Phone: 04-10-2025 14:47-0400 Respiratory rate 18 /min JESUS LONDON GRADER OPERATOR-C Work Phone: 04-10-2025 14:47-0400 SaO2% (BldA) [Mass fraction] 95 % JESUS LONDON GRADER OPERATOR-C Work Phone: 04-10-2025 14:47-0400 Systolic blood pressure 126 mm[Hg] JESUS LONDON GRADER OPERATOR-C Work Phone: 04-08-2025 14:25-0400 Inhaled oxygen flow rate 2 L/min JESUS LONDON [employer] OPERATOR-C Work Phone: 04-07-2025 14:21-0400 Body height 162.56 cm JESUS LONDON GRADER OPERATOR-C Work Phone: 04-07-2025 14:21-0400 Body mass index (BMI) [Ratio] 20 kg/m2 JESUS LONDON [employer]AD[employer] OPERATOR-C Work Phone: 04-07-2025 14:21-0400 Body weight 53.07 kg JESUS LONDON GRADER OPERATOR-C Work Phone: 04-07-2025 13:51-0400 Body temperature 98.6 [degF] JESUS LONDON GRADER OPERATOR-C Work Phone: 04-07-2025 13:51-0400 Diastolic blood pressure 64 mm[Hg] JESUS LONDON GRADER OPERATOR-C Work Phone: 04-07-2025 13:51-0400 Heart rate 55 /min JESUS LONDON GRADER OPERATOR-C Work Phone: 0(938)040-905946 [place] [address] 04-07-2025 13:51-0400 Respiratory rate 18 /min JESUS LONDON GRADER OPERATOR-C Work Phone: 04-07-2025 13:51-0400 SaO2% (BldA) [Mass fraction] 99 % JESUS LONDON GRADER OPERATOR-C Work Phone: 0(316)454-603046 [place] [address] 04-07-2025 13:51-0400 Systolic blood pressure 135 mm[Hg] JESUS LONDON GRADER OPERATOR-C Work Phone: 3(176)564-805446 [place] [address] 04-07-2025 13:00-0400 Inhaled oxygen flow rate 5 L/min JESUS LONDON GRADER OPERATOR-C Work Phone: 7(235)843-637846 [place] [address] 04-07-2025 10:47-0400 Body height 162.56 cm JESUS LONDON GRADER OPERATOR-C Work Phone: 7(715)663-272446 [place] [address] 04-07-2025 10:47-0400 Body mass index (BMI) [Ratio] 19.2 kg/m2 JESUS LONDON GRADER OPERATOR-C Work Phone: 04-07-2025 10:47-0400 Body weight 50.8 kg JESUS LONDON GRADER OPERATOR-C Work Phone: 3(568)910-133646 [place] [address] 04-07-2025 10:42-0400 Diastolic blood pressure 79 mm[Hg] JESUS LONDON GRADER OPERATOR-C Work Phone: 04-07-2025 10:42-0400 Heart rate 84 /min JESUS LONDON GRADER OPERATOR-C Work Phone: 6(080)944-699746 [place] [address] 04-07-2025 10:42-0400 Inhaled oxygen flow rate 3 L/min JESUS LONDON GRADER OPERATOR-C Work Phone: 04-07-2025 10:42-0400 Respiratory rate 33 /min JESUS LONDON GRADER OPERATOR-C Work Phone: 04-07-2025 10:42-0400 SaO2% (BldA) [Mass fraction] 92 % JESUS LONDON GRADER OPERATOR-C Work Phone: 04-07-2025 10:42-0400 Systolic blood pressure 151 mm[Hg] JESUS LONDON GRADER OPERATOR-C Work Phone: 7(337)433-316546 [place] [address] 04-07-2025 09:35-0400 Body mass index (BMI) [Ratio] 20.5 kg/m2 JESUS LONDON GRADER OPERATOR-C Work Phone: 6(640)578-921346 [place] [address] 04-07-2025 09:35-0400 Body temperature 97.3 [degF] JESUS LONDON GRADER OPERATOR-C Work Phone: 7(783)367-618946 [place] [address] 04-07-2025 09:35-0400 Body weight 54.43 kg JESUS LONDON GRADER OPERATOR-C Work Phone: 9(939)206-392746 [place] [address] 03-14-2025 07:55-0400 Body mass index (BMI) [Ratio] 19.3 kg/m2 JESUS LONDON GRADER OPERATOR-C Work Phone: 5(195)470-893146 [place] [address] 03-14-2025 07:55-0400 Body temperature 97.4 [degF] JESUS LONDON GRADER OPERATOR-C Work Phone: 03-14-2025 07:55-0400 Body weight 51.25 kg JESUS LONDON GRADER OPERATOR-C Work Phone: 5(170)562-823246 [place] [address] 03-14-2025 07:55-0400 Diastolic blood pressure 79 mm[Hg] JESUS LONDON GRADER OPERATOR-C Work Phone: 03-14-2025 07:55-0400 Heart rate 85 /min JESUS LONDON GRADER OPERATOR-C Work Phone: 03-14-2025 07:55-0400 Respiratory rate 18 /min JESUS LONDON GRADER OPERATOR-C Work Phone: 03-14-2025 07:55-0400 SaO2% (BldA) [Mass fraction] 96 % JESUS LONDON GRADER OPERATOR-C Work Phone: 03-14-2025 07:55-0400 Systolic blood pressure 168 mm[Hg] JESUS LONDON GRADER OPERATOR-C Work Phone: 03-02-2025 12:46-0400 Body weight 54.43 kg JESUS LONDON GRADER OPERATOR-C Work Phone: 03-02-2025 12:46-0400 Heart rate 77 /min JESUS LONDON GRADER OPERATOR-C Work Phone: 6(238)[phone] [place] [address] 03-02-2025 12:46-0400 SaO2% (BldA) [Mass fraction] 97 % JESUS LONDON GRADER OPERATOR-C Work Phone: 01-31-2025 07:50-0400 Body mass index (BMI) [Ratio] 18.8 kg/m2 JESUS LONDON GRADER OPERATOR-C Work Phone: 01-31-2025 07:50-0400 Body temperature 97.5 [degF] JESUS LONDON GRADER OPERATOR-C Work Phone: 01-31-2025 07:50-0400 Body weight 49.89 kg JESUS LONDON GRADER OPERATOR-C Work Phone: 01-31-2025 07:50-0400 Heart rate 88 /min JESUS LONDON GRADER OPERATOR-C Work Phone: 01-31-2025 07:50-0400 Respiratory rate 18 /min JESUS LONDON GRADER OPERATOR-C Work Phone: 01-31-2025 07:50-0400 SaO2% (BldA) [Mass fraction] 99 % JESUS LONDON GRADER OPERATOR-C Work Phone: 12-26-2024 13:14-0500 Body temperature 98.6 [degF] JESUS [employer] OPERATOR-C Work Phone: 12-26-2024 13:14-0500 Body weight 53.07 kg JESUS [employer] OPERATOR-C Work Phone: 12-26-2024 13:14-0500 Diastolic blood pressure 65 mm[Hg] JESUS [employer] OPERATOR-C Work Phone: [phone] [place] [address] 12-26-2024 13:14-0500 Heart rate 87 /min JESUS [employer] OPERATOR-C Work Phone: [phone] [place] [address] 12-26-2024 13:14-0500 Respiratory rate 16 /min JESUS L[employer] OPERATOR-C Work Phone: 12-26-2024 13:14-0500 SaO2% (BldA) [Mass fraction] 98 % JESUS L[employer] OPERATOR-C Work Phone: 12-26-2024 13:14-0500 Systolic blood pressure 115 mm[Hg] JESUS [employer]ON [employer] OPERATOR-C Work Phone: 11-11-2024 13:16-0500 Body temperature 97.8 [degF] JESUS [employer] OPERATOR-C Work Phone: 11-11-2024 13:16-0500 Body weight 53.07 kg JESUS L[employer] OPERATOR-C Work Phone: 11-11-2024 13:16-0500 Diastolic blood pressure 67 mm[Hg] JESUS [employer] OPERATOR-C Work Phone: 11-11-2024 13:16-0500 Heart rate 60 /min JESUS [employer] OPERATOR-C Work Phone: 11-11-2024 13:16-0500 Respiratory rate 16 /min JESUS L[employer]ON [employer] OPERATOR-C Work Phone: 11-11-2024 13:16-0500 SaO2% (BldA) [Mass fraction] 98 % JESUS [employer] OPERATOR-C Work Phone: 11-11-2024 13:16-0500 Systolic blood pressure 117 mm[Hg] JESUS L[employer]ON GR[employer] OPERATOR-C Work Phone: 11-08-2024 11:22-0500 Body height 162.56 cm JESUS L[employer]ON [employer] OPERATOR-C Work Phone: 11-08-2024 11:22-0500 Body weight 50.3 kg JESUS L[employer]ON [employer] OPERATOR-C Work Phone: 11-08-2024 09:48-0500 Diastolic blood pressure 52 mm[Hg] JESUS L[employer]ON [employer] OPERATOR-C Work Phone: 11-08-2024 09:48-0500 Heart rate 80 /min JESUS [employer] OPERATOR-C Work Phone: 11-08-2024 09:48-0500 Systolic blood pressure 104 mm[Hg] JESUS L[employer]ON GR[employer] OPERATOR-C Work Phone: 11-08-2024 08:21-0500 SaO2% (BldA) [Mass fraction] 96 % JESUS [employer] OPERATOR-C Work Phone: 11-08-2024 08:17-0500 Body temperature 97.5 [degF] JESUS [employer] OPERATOR-C Work Phone: 11-08-2024 08:17-0500 Respiratory rate 18 /min JESUS [employer] OPERATOR-C Work Phone: 11-08-2024 05:29-0500 Body mass index (BMI) [Ratio] 19 kg/m2 JESUS [employer] OPERATOR-C Work Phone: 01-15-2024 12:27-0500 Body height 162.56 cm No Primary Care Physician 01-15-2024 12:27-0500 Body weight 53.97 kg No Primary Care Physician 01-15-2024 12:27-0500 Heart rate 96 /min No Primary Care Physician 01-15-2024 12:27-0500 SaO2% (BldA) [Mass fraction] 97 % No Primary Care Physician 01-09-2024 13:32-0500 Body temperature 98.2 [degF] No Primary Care Physician 01-09-2024 13:32-0500 Diastolic blood pressure 43 mm[Hg] No Primary Care Physician 01-09-2024 13:32-0500 Heart rate 69 /min No Primary Care Physician 01-09-2024 13:32-0500 Respiratory rate 16 /min No Primary Care Physician 01-09-2024 13:32-0500 SaO2% (BldA) [Mass fraction] 93 % No Primary Care Physician 01-09-2024 13:32-0500 Systolic blood pressure 93 mm[Hg] No Primary Care Physician 01-09-2024 08:59-0500 Inhaled oxygen flow rate 2 L/min No Primary Care Physician 01-08-2024 13:36-0500 Body height 162.56 cm No Primary Care Physician 01-08-2024 13:36-0500 Body mass index (BMI) [Ratio] 19.2 kg/m2 No Primary Care Physician 01-08-2024 13:36-0500 Body weight 50.8 kg No Primary Care Physician 01-08-2024 12:15-0500 Body temperature 97.3 [degF] No Primary Care Physician 01-08-2024 12:15-0500 Diastolic blood pressure 62 mm[Hg] No Primary Care Physician 01-08-2024 12:15-0500 Heart rate 56 /min No Primary Care Physician 01-08-2024 12:15-0500 Respiratory rate 20 /min No Primary Care Physician 01-08-2024 12:15-0500 SaO2% (BldA) [Mass fraction] 90 % No Primary Care Physician 01-08-2024 12:15-0500 Systolic blood pressure 115 mm[Hg] No Primary Care Physician 01-08-2024 10:17-0500 Body height 162.56 cm No Primary Care Physician 01-08-2024 10:17-0500 Body mass index (BMI) [Ratio] 20.4 kg/m2 No Primary Care Physician 01-08-2024 10:17-0500 Body weight 54 kg No Primary Care Physician 01-08-2024 09:57-0500 Diastolic blood pressure 77 mm[Hg] No Primary Care Physician 01-08-2024 09:57-0500 Heart rate 81 /min No Primary Care Physician 01-08-2024 09:57-0500 Respiratory rate 21 /min No Primary Care Physician 01-08-2024 09:57-0500 Systolic blood pressure 115 mm[Hg] No Primary Care Physician 01-08-2024 08:42-0500 Body mass index (BMI) [Ratio] 20 kg/m2 No Primary Care Physician 01-08-2024 08:42-0500 Body temperature 98.2 [degF] No Primary Care Physician 01-08-2024 08:42-0500 Body weight 53.07 kg No Primary Care Physician 01-08-2024 08:42-0500 SaO2% (BldA) [Mass fraction] 98 % No Primary Care Physician 12-29-2023 07:46-0500 Body mass index (BMI) [Ratio] 18.6 kg/m2 No Primary Care Physician 12-29-2023 07:46-0500 Body temperature 97.2 [degF] No Primary Care Physician 12-29-2023 07:46-0500 Body weight 50.8 kg No Primary Care Physician 12-29-2023 07:46-0500 Diastolic blood pressure 67 mm[Hg] No Primary Care Physician 12-29-2023 07:46-0500 Heart rate 66 /min No Primary Care Physician 12-29-2023 07:46-0500 Respiratory rate 20 /min No Primary Care Physician 12-29-2023 07:46-0500 SaO2% (BldA) [Mass fraction] 98 % No Primary Care Physician 12-29-2023 07:46-0500 Systolic blood pressure 124 mm[Hg] No Primary Care Physician Encounters Encounter Date Encounter Type Care Provider Facility Start: 08-11-2025 ambulatory [facility] Facility:[facility] Start: 07-27-2025 ambulatory [facility] Facility:[facility] Start: 07-26-2025 End: 07-26-[address] Ayden Bosch MD -[facility] Work Phone: Start: 07-26-2025 End: 07-26-2025 ambulatory JESUS LONDON GRADER OPERATOR-C Work Phone: [facility] Start: 07-26-[address] Aydne Bosch MD -[facility] Start: 07-19-[address] Ayden Bosch MD -[facility] Start: 07-19-2025 End: 07-19-2025 Patient encounter procedure Camille Jenae GRADER OPERATOR-C -[facility] Work Phone: Start: 07-19-2025 End: 07-19-2025 ambulatory JESUS LONDON GRADER OPERATOR-C Work Phone: [facility] Start: 07-05-2025 End: 07-05-2025 Patient encounter procedure Camille Jenae GRADER OPERATOR-C -[facility] Work Phone: Start: 07-05-2025 End: 07-05-2025 ambulatory JESUS LONDON GRADER OPERATOR-C Work Phone: -[facility] Start: 07-05-[address] Ayden Bosch MD -[facility] Start: 06-29-2025 End: 06-29-2025 Patient encounter procedure Camille Jenae GRADER OPERATOR-C -[facility] Work Phone: Start: 06-29-2025 End: 06-29-2025 ambulatory JESUS LONDON GRADER OPERATOR-C Work Phone: -[facility] Start: 06-29-[address] Ayden Bosch MD -[facility] Start: 06-22-2025 ambulatory JESUS LONDON Facilit y: Start: 06-14-[address] Ayden Bosch MD -[facility] Start: 06-14-2025 End: 06-14-[address] Ayden Bosch MD -[facility] Work Phone: Start: 06-14-2025 End: 06-14-2025 ambulatory JESUS LONDON GRADER OPERATOR-C Work Phone: -[facility] Start: 06-12-2025 End: 06-12-2025 Patient encounter procedure Camille SimonJenae GRADER OPERATOR-C -[facility] Work Phone: Start: 06-12-2025 End: 06-12-2025 ambulatory JESUS LONDON GRADER OPERATOR-C Work Phone: -[facility] Start: 06-05-2025 ambulatory Ray Sanders Facility :[facility] Start: 06-05-2025 Non-patient / Non-visit Dr. Ray Sanders MD -[facility] Start: 06-05-2025 End: 06-05-2025 Admission to same day surgery center Dr. Ray Sanders MD [facility] Start: 06-05-2025 End: 06-05-2025 ambulatory JESUS LONDON GRADER OPERATOR-C Work Phone: [facility] Start: 05-31-2025 End: 05-31-[address] Ray Sanders MD -[facility] Work Phone: Start: 05-31-2025 End: 05-31-2025 ambulatory JESUS LONDON GRADER OPERATOR-C Work Phone: -[facility] Start: 05-29-2025 End: 05-29-[address] Ayden Bosch MD -[facility] Work Phone: Start: 05-29-2025 End: 05-29-2025 ambulatory JESUS LONDON GRADER OPERATOR-C Work Phone: -[facility] Start: 05-01-[address] Ayden Bosch MD -[facility] Start: 05-01-2025 End: 05-01-[address] Ayden Bosch MD -[facility] Work Phone: Start: 05-01-2025 End: 05-01-2025 ambulatory JESUS LONDON GRADER OPERATOR-C Work Phone: [facility] Work Phone: Start: 04-25-2025 End: 04-25-2025 ambulatory JESUS LONDON GRADER OPERATOR-C Work Phone: Work Phone: Start: 04-25-2025 End: 04-25-2025 Patient encounter procedure Raegan Ledezma NP-C -[facility] Start: 04-25-2025 End: 04-25-2025 ambulatory JESUS LONDON Facility: Start: 04-19-2025 End: 04-19-2025 Patient encounter procedure Raegan Ledezma GRADER OPERATOR-C -[facility] Work Phone: Start: 04-19-2025 End: 04-19-2025 ambulatory JESUS LONDON GRADER OPERATOR-C Work Phone: [facility] Work Phone: Start: 04-17-2025 ambulatory JESUS CINTHIA R ROD FINISHER-PROGRAM AND RESEARCH COORDINATOR Facility:[facility] Start: 04-10-2025 Non-patient / Non-visit Padma richardson PA-C -[facility] Start: 04-10-2025 Non-patient / Non-visit Dr. Malcolm Rivas [facility] Work Phone: Start: 04-09-2025 Non-patient / Non-visit Dr. Chuy Covarrubias MD -[facility] Work Phone: Start: 04-09-2025 Non-patient / Non-visit Dr. Ray Sanders MD -[facility] Start: 04-08-2025 Non-patient / Non-visit Dr. Chuy Covarrubias MD -[facility] Work Phone: Start: 04-08-2025 Non-patient / Non-visit Dr. Ray Sanders MD -[facility] Start: 04-07-2025 Non-patient / Non-visit Dr. Ray Sanders MD -[facility] Start: 04-07-2025 ambulatory Michelle Do Facility :[facility] Start: 04-07-2025 End: 04-10-2025 Evaluation and management of inpatient Dr. Malcolm Hanson DO -Medical Surgical 3 Work Phone: Start: 04-07-2025 End: 04-07-2025 Emergency department patient visit JEUSS CALLAHAN GRADER OPERATOR-C Work Phone: -Emergency Department Work Phone: Start: 04-07-2025 End: 04-07-2025 ambulatory JESUS CALLAHAN GRADER OPERATOR-C Work Phone: Work Phone: Start: 04-07-2025 End: 04-07-2025 Patient encounter procedure Raegan Ledezma NP-C -Cat Scan [facility] Work Phone: Start: 04-07-2025 End: 04-07-2025 ambulatory Raegan Ledezma NP Facility: Start: 03-21-2025 ambulatory Malcolm Torres Facility:[facility] Start: 03-14-2025 End: 03-14-2025 Patient encounter procedure Raegan Ledezma NP-C -[facility] Work Phone: Start: 03-14-2025 End: 03-14-2025 ambulatory Raegan Ledezma GRADER OPERATOR Facility:[facility] Start: 03-03-2025 ambulatory Raegan Ledezma GRADER OPERATOR Fac ility:[facility] Start: 03-03-2025 Non-patient / Non-visit Dr. Pierre sandoval DO -[facility] Start: 03-03-2025 ambulatory Lenny Golden Facility :[facility] Start: 03-02-2025 End: 03-02-2025 Patient encounter procedure Raegan Ledezma GRADER OPERATOR-C -Cat Scan [facility] Work Phone: Start: 03-02-2025 End: 03-02-2025 ambulatory Raegan Ledezma GRADER OPERATOR Facility: Start: 02-27-2025 End: 02-27-2025 ambulatory JESUS BENAVIDEZLER GRADER OPERATOR-C Work Phone: Work Phone: Start: 02-27-2025 End: 02-27-2025 Patient encounter procedure Raegan Ledezma GRADER OPERATOR-C -Pulmonary Services/Neurology Work Phone: Start: 02-27-2025 End: 02-27-2025 ambulatory Raegan Ledezma NP Facility: Start: 01-31-2025 End: 01-31-2025 Patient encounter procedure Raegan Ledezma GRADER OPERATOR-C -[facility] Work Phone: Start: 01-31-2025 End: 01-31-2025 ambulatory Raegan Ledezma NP Facility:[facility] Start: 01-04-2025 ambulatory Lenny Franks Facility :[facility] Start: 12-26-2024 End: 12-26-[address] Malcolm Torres MD -[facility] Work Phone: Start: 12-26-2024 End: 12-26-2024 ambulatory Malcolm Torres Facility:[facility] Start: 12-08-2024 ambulatory Malcolm Torres Facility:[facility] Start: 12-08-2024 Non-patient / Non-visit Dr. Malcolm conde MD -[facility] Start: 12-08-2024 End: 12-08-2024 Patient encounter procedure Marjorie REYNOSO -Cardiovascular Services Work Phone: Start: 12-08-2024 End: 12-08-2024 ambulatory Marjorie Garcia Facility: Start: 12-01-2024 End: 12-01-2024 Patient encounter procedure Marjorie REYNOSO -Cat Scan, H Work Phone: Start: 12-01-2024 End: 12-01-2024 ambulatory Marjorie Garcia Facility: Start: 11-11-2024 End: 11-11-2024 Patient encounter procedure Marjorie REYNOSO -[facility] Work Phone: Start: 11-11-2024 End: 11-11-2024 ambulatory Marjorie Garcia Facility:[facility] Start: 11-08-2024 Non-patient / Non-visit Dr. Cleo Ulloa MD -[facility] Work Phone: Start: 11-07-2024 ambulatory JESUS LONDON Facilit y:[facility] Start: 11-07-2024 Non-patient / Non-visit Dr. Doc STONE -[facility] Start: 11-07-2024 ambulatory JESUS LONDON Facilit y:[facility] Start: 11-07-2024 Non-patient / Non-visit Dr. Malcolm conde MD -[facility] Start: 11-07-2024 Non-patient / Non-visit Dr. Pierre sandoval DO -[facility] Start: 11-07-2024 ambulatory Goldy Smith ty:[facility] Start: 11-07-2024 End: 11-08-2024 Evaluation and management of inpatient Dr. Janak Ulloa MD -Intensive Care Unit Work Phone: Start: 09-07-2024 End: 09-08-2024 Emergency department patient visit Ministerio Mckeon Facility: Start: 06-16-2024 End: 06-20-2024 ambulatory JESUS CALLAHAN ROD FINISHER-PROGRAM AND RESEARCH COORDINATOR Facility:[facility] Start: 06-16-2024 End: 06-20-2024 Outreach Lab JESUS CALLAHAN ROD FINISHER-PROGRAM AND RESEARCH COORDINATOR [facility] Start: 01-18-2024 Non-patient / Non-visit No [facility] Physician [facility] Start: 01-15-2024 End: 01-15-2024 ambulatory No Primary Care Physician Work Phone: Start: 01-15-2024 End: 01-15-2024 Patient encounter procedure No Primary Care Physician -Pulmonary Services/Neurology Work Phone: Start: 01-09-2024 Non-patient / Non-visit No Brooke lafleur [facility] Physician [facility] Work Phone: Start: 01-09-2024 Non-patient / Non-visit No Brooke lafleur [facility] Physician [facility] Start: 01-08-2024 Non-patient / Non-visit No Brooke lafleur [facility] Physician [facility] Start: 01-08-2024 End: 01-09-2024 Evaluation and management of inpatient No Primary Care Physician -Medical Surgical 3 Work Phone: Start: 01-08-2024 End: 01-09-2024 observation encounter No Primary Care Physician Work Phone: Start: 01-08-2024 Non-patient / Non-visit No Brooke lafleur [facility] Physician [facility] Work Phone: Start: 01-08-2024 End: 01-08-2024 ambulatory No Primary Care Physician Work Phone: Start: 01-08-2024 End: 01-08-2024 Patient encounter procedure No Primary Care Physician -Cat Scan, [facility] Work Phone: Start: 01-06-2024 End: 01-06-2024 ambulatory No Primary Care Physician Work Phone: Start: 01-06-2024 End: 01-06-2024 Patient encounter procedure No Primary Care Physician -Pulmonary Services/Neurology Work Phone: Start: 12-31-2023 End: 12-31-2023 ambulatory JESUSANA BENAVIDEZLER ROD FINISHER-PROGRAM AND RESEARCH COORDINATOR Facility:[facility] Start: 12-29-2023 End: 12-29-2023 Patient encounter procedure No Primary Care Physician [facility]-P[facility] Medicine [facility] Work Phone: Start: 12-16-2023 End: 12-16-2023 ambulatory JESUS LONDON ROD FINISHER-PROGRAM AND RESEARCH COORDINATOR Facility:[facility] Start: 12-16-2023 End: 12-16-2023 Patient encounter procedure JESUS LONDON ROD FINISHER-PROGRAM AND RESEARCH COORDINATOR [facility] Start: 11-27-2023 End: 11-27-2023 ambulatory JESUS LONDON ROD FINISHER-PROGRAM AND RESEARCH COORDINATOR Facility:[facility] Start: 11-27-2023 End: 11-27-2023 Patient encounter procedure JESUS LONDON ROD FINISHER-PROGRAM AND RESEARCH COORDINATOR [facility] Start: 09-23-2021 End: 09-27-2021 Outreach Lab WENDY CHRISTINA ROD FINISHER - PROGRAM AND RESEARCH COORDINATOR [facility] Start: 08-16-2021 End: 08-20-2021 Outreach Lab WENDY CHRISTINA ROD FINISHER - PROGRAM AND RESEARCH COORDINATOR [facility] Procedures Date Procedure Procedure Detail Performing Clinician Start: 07-26-2025 Estimated creatinine clearance JESUS LONDON GRADER OPERATOR-C Work Phone: Start: 07-26-2025 Serum inorganic phos phate measurement JESUS LONDON GRADER OPERATOR-C Work Phone: Start: 07-19-2025 Estimated creatinine clearance JESUS LONDON GRADER OPERATOR-C Work Phone: Start: 07-05-2025 Estimated creatinine clearance JESUS LONDON GRADER OPERATOR-C Work Phone: Start: 07-05-2025 Lymphocyte percent differential count JESUS LONDON GRADER OPERATOR-C Work Phone: Start: 07-05-2025 Serum inorganic phos phate measurement JESUS LONDON GRADER OPERATOR-C Work Phone: Start: 06-29-2025 Estimated creatinine clearance JESUS LONDON GRADER OPERATOR-C Work Phone: Start: 06-14-2025 Estimated creatinine clearance JESUS LONDON GRADER OPERATOR-C Work Phone: Start: 06-14-2025 Serum inorganic phos phate measurement JESUS LONDON GRADER OPERATOR-C Work Phone: Start: 06-05-2025 Plain chest X-ray JESUS LONDON GRADER OPERATOR-C Work Phone: Start: 06-05-2025 Implantation to cardiovascular system EJSUS LONDON GRADER OPERATOR-C Work Phone: Start: 06-05-2025 Fluoroscopic guidance J ARED LONDON GRADER OPERATOR-C Work Phone: Start: 04-25-2025 Positron emission tomography with computed tomography JESUS LONDON GRADER OPERATOR-C Work Phone: Start: 04-10-2025 X-ray of chest, PA a nd lateral views JESUS LONDON GRADER OPERATOR-C Work Phone: Start: 04-10-2025 X-ray of chest, PA a nd lateral views JESUS LONDON GRADER OPERATOR-C Work Phone: Start: 04-09-2025 X-ray of chest, PA a nd lateral views JESUS LONDON GRADER OPERATOR-C Work Phone: Start: 04-08-2025 X-ray of chest, PA a nd lateral views JESUS LONDON GRADER OPERATOR-C Work Phone: Start: 04-08-2025 Estimated creatinine clearance JESUS LONDON GRADER OPERATOR-C Work Phone: Start: 04-07-2025 Plain chest X-ray JESUS LONDON GRADER OPERATOR-C Work Phone: Start: 04-07-2025 Estimated creatinine clearance JESUS LONDON GRADER OPERATOR-C Work Phone: Start: 04-07-2025 Plain chest X-ray JESUS LONDON GRADER OPERATOR-C Work Phone: Start: 04-07-2025 Biopsy/Inj or Needle Placement JESUS LONDON GRADER OPERATOR-C Work Phone: Start: 03-02-2025 CT of thorax with contrast JESUS LONDON GRADER OPERATOR-C Work Phone: Start: 12-01-2024 CT angiography of he ad and neck JESUS LONDON GRADER OPERATOR-C Work Phone: Start: 11-07-2024 CT of chest without contrast JESUS LONDON GRADER OPERATOR-C Work Phone: Start: 11-06-2024 CT of head without contrast JESUS LONDON GRADER OPERATOR-C Work Phone: Start: 11-06-2024 SARS-CoV-2, Influenz a & RSV (PCR) JESUS LONDON GRADER OPERATOR-C Work Phone: Start: 01-15-2024 Plain chest X-ray [...] Care Physician Start: 11-09-2019 Colonoscopy JESUSANA PENAGORDO ROD FINISHER-PROGRAM AND RESEARCH COORDINATOR Start: 11-09-1984 Vasectomy JESUS CARMEN ETLER ROD FINISHER-PROGRAM AND RESEARCH COORDINATOR Plan of Treatment Date Care Activity Detail Author Start: 07-26-2025 Start: 07-19-2025 Start: 07-05-2025 Start: 06-29-2025 Start: 06-14-2025 Start: 06-14-2025 Venous catheter care management Start: 06-05-2025 Patient discharge Start: 06-05-2025 Anesthesia access central venous circulation ANESTH VASCULAR ACCESS Start: 06-05-2025 Insj tunneled ctr vad w/subq port age 5 yr/> INSERT TUNNELED CV CATH Start: 04-19-[address] [facility] Work Phone: Start: 04-19-2025 Positron emission tomography with computed tomography Start: 04-10-2025 Patient discharge Start: 04-08-2025 Oxygen therapy Start: 04-08-2025 Drainage tube care management Start: 04-07-2025 Assessment of risk of venous thromboembolism Start: 04-07-2025 Insertion of catheter into peripheral vein Start: 04-07-2025 Providing care according to standard Start: 04-07-2025 Provision of activity privileges Start: 04-07-2025 Referral for physical therapy Start: 04-07-2025 Referral to general surgeon Start: 04-07-2025 Referral to occupational therapist Start: 04-07-2025 Referral to service Start: 04-07-2025 Start: 04-07-2025 Following clinical pathway protocol Start: 04-07-2025 CORE NDL BX LNG/MED PERQ CORE NDL BX LNG/MED PERQ Start: 04-07-2025 Admission procedure Start: 04-07-2025 Hospital admission, emergency, from emergency room, medical nature Start: 04-07-2025 Start: 04-07-2025 Following clinical pathway protocol Start: 04-07-2025 Catheterization of vein [facility] Start: 04-07-2025 Oxygen therapy Start: 04-07-2025 Patient discharge Start: 04-07-2025 Vital signs measurements [facility] Start: 03-02-2025 Walking distance 6 minutes [facility] Start: 11-11-2024 Patient referral Work Phone: Start: 11-08-2024 Patient discharge Start: 11-07-2024 Care planning and problem solving actions Start: 11-07-2024 Following clinical pathway protocol Start: 11-07-2024 Assessment of risk of venous thromboembolism Start: 11-07-2024 Bedrest Start: 11-07-2024 Continuous pulse oximetry [facility] Start: 11-07-2024 Elevation of head of bed [facility] Start: 11-07-2024 Incentive spirometry Start: 11-07-2024 Insertion of catheter into peripheral vein Start: 11-07-2024 Measuring intake and output Start: 11-07-2024 Oxygen therapy Start: 11-07-2024 Providing care according to standard Start: 11-07-2024 Referral to occupational therapist Start: 11-07-2024 Referral to service Start: 11-07-2024 Seizure precautions Start: 11-07-2024 Tobacco use cessation education Start: 11-07-2024 Vital signs measurements [facility] Start: 11-07-2024 Start: 11-07-2024 Admission procedure Start: 11-07-2024 Patient referral to dietitian Start: 01-09-2024 Patient discharge Start: 01-09-2024 Plain chest X-ray Chest 1 View (Portable) [facility] Start: 01-09-2024 XR Chest Single view Start: 01-08-2024 Start: 01-08-2024 CORE NDL BX LNG/MED PERQ CORE NDL BX LNG/MED PERQ Start: 01-08-2024 Tube thoracostomy includes water seal INSERTION OF CHEST TUBE Start: 01-08-2024 Following clinical pathway protocol Start: 01-08-2024 Ambulation without limitation Start: 01-08-2024 Assessment of risk of venous thromboembolism Start: 01-08-2024 Catheterization of vein [facility] Start: 01-08-2024 Chart related administrative procedure Start: 01-08-2024 Incentive spirometry Start: 01-08-2024 Inhalation therapy procedure Start: 01-08-2024 Insertion of catheter into peripheral vein Start: 01-08-2024 Oxygen therapy Start: 01-08-2024 Providing care according to standard Start: 01-08-2024 Referral to general surgeon Start: 01-08-2024 Referral to service Start: 01-08-2024 Start: 01-08-2024 Verification routine Start: 01-08-2024 Admission procedure Start: 01-08-2024 Following clinical pathway protocol Start: 01-08-2024 Catheterization of vein [facility] Start: 01-08-2024 Oxygen therapy Start: 01-08-2024 Patient discharge Start: 01-08-2024 Vital signs measurements [facility] Cholesterol [Mass/vo lume] in Serum or Plasma Cholesterol in HDL [Mass/volume] in Serum or Plasma Cholesterol in LDL [Mass/volume] in Serum or Plasma CT Chest and Abdomen W contrast IV CT Chest W contrast IV [facility] CT Chest W contrast IV [facility] Exercise tolerance test [facility] Patient Education RAD RN Dischar ge Instructions Needle Biopsy: Lung RAD RN Procedural Sedation Work Phone: Patient referral [facility] Work Phone: Triglycerides measurement [facility] VLDL cholesterol measurement XR Chest PA and Lateral [facility] Immunizations Immunization Date Immunization Notes Care Provider Ivonne grullon 05-16-2016 pneumococcal polysaccharide vaccine, 23 valent WENDY CHRISTINA ROD FINISHER - PROGRAM AND RESEARCH COORDINATOR [facility] 05-16-2016 tetanus toxoid, redu angela diphtheria toxoid, and acellular pertussis vaccine, adsorbed WENDY CHRISTINA ROD FINISHER - PROGRAM AND RESEARCH COORDINATOR [facility] Payers Date Payer Category Payer Unknown [id number] 2024 Self-pay 2023 Medicare [id number] 1955 Unknown [id number] 2.16.8 [id number] 1955 Unknown [id number] .16.8 40.1.031931.3.579.2.62 1955 Unknown [id number] .16.8 40.1.129239.3.579.2.627 1955 Unknown [id number] .16.8 40.1.964352.3.579.2.627 1955 Unknown [id number] .16. 840.1.868397.3.579.2.627 Unknown [id number] Unknown [id number] 2.16.8 40.1.446320.3.579.2.462 Unknown [id number] 2.16.8 40.1.605677.3.579.2.462 Unknown [id number] 2.16.8 40.1.468390.3.579.2.462 Unknown [id number] 2.16.8 40.1.121990.3.579.2.462 Unknown [id number] 2.16.8 40.1.865266.3.579.2.462 Unknown [id number] 2.16.8 40.1.471006.3.579.2.462 Unknown [id number] 2.16.8 40.1.943295.3.579.2.462 Unknown [id number] 2.16.8 40.1.043716.3.579.2.462 Unknown [id number] 2.16.8 40.1.579245.3.579.2.462 Unknown [id number] 2.16.8 40.1.604957.3.579.2.462 Unknown [id number] 2.16.8 40.1.837042.3.579.2.462 Unknown [id number] 2.16.8 40.1.845762.3.579.2.462 Unknown [id number] 2.16.8 40.1.924804.3.579.2.462 Unknown [id number] 2.16.8 40.1.793652.3.579.2.462 Unknown [id number] 2.16.8 40.1.343188.3.579.2.462 Unknown [id number] 2.16.8 40.1.344093.3.579.2.462 Unknown [id number] 2.16.8 40.1.833824.3.579.2.462 Unknown [id number] 2.16.8 40.1.642797.3.579.2.462 Unknown [id number] 2.16.8 40.1.574916.3.579.2.462 Unknown [id number] 2.16.8 40.1.736865.3.579.2.462 Unknown [id number] 2.16.8 40.1.923740.3.579.2.462 Unknown [id number] 2.16.8 40.1.670924.3.579.2.462 Unknown [id number] 2.16.8 40.1.815352.3.579.2.462 Unknown [id number] 2.16.8 40.1.803985.3.579.2.462 Unknown [id number] 2.16.8 40.1.695803.3.579.2.462 Unknown [id number] 2.16.8 40.1.474372.3.579.2.462 Unknown [id number] 2.16.8 40.1.747953.3.579.2.462 Unknown [id number] 2.16.8 40.1.200865.3.579.2.462 Unknown [id number] 2.16.8 40.1.856395.3.579.2.462 Unknown [id number] 2.16.8 40.1.268559.3.579.2.462 Unknown [id number] 2.16.8 40.1.020869.3.579.2.462 Unknown [id number] 2.16.8 40.1.789349.3.579.2.462 Unknown [id number] 2.16.8 40.1.404317.3.579.2.462 Unknown [id number] 2.16.8 40.1.918643.3.579.2.462 Unknown [id number] 2.16.8 40.1.503676.3.579.2.462 Unknown [id number] 2.16.8 40.1.737716.3.579.2.462 Unknown [id number] 2.16.8 40.1.755311.3.579.2.462 Unknown [id number] 2.16.8 40.1.359049.3.579.2.462 Unknown [id number] 2.16.8 40.1.656554.3.579.2.462 Unknown [id number] 2.16.8 40.1.044501.3.579.2.462 Unknown [id number] 2.16.8 40.1.220132.3.579.2.462 Unknown [id number] 2.16.8 40.1.515976.3.579.2.462 Unknown [id number] 2.16.8 40.1.292559.3.579.2.462 Unknown [id number] 2.16.8 40.1.731054.3.579.2.462 Unknown [id number] 2.16.8 40.1.666006.3.579.2.462 Unknown [id number] 2.16.8 40.1.137349.3.579.2.462 Unknown [id number] 2.16.8 40.1.222025.3.579.2.462 Social History Date Type Detail Facility Start: 03-07-2021 End: 12-26-2024 Heavy tobacco smoker (finding) [facility] Sex Assigned At [facility] Start: 01-08-2024 End: 01-08-2024 Tobacco smoking status NHIS Unknown if ever smoked Start: 1955 Sex Assigned At Male [facility] Start: 03-02-2025 Sex Male (finding) Start: 04-07-2025 End: 06-02-2025 Tobacco smoking status NHIS Smokes tobacco daily (finding) Sex Male [facility] Medical Equipment Procedure Code Equipment Code Equipment Origin al Text Equipment Identifier Dates Insertion, vascular access port ([id number]) Vascular port/catheter ([id number] [facility] Start: 06-05-2025 Goals Date Patient Goal Desired Activity /State Functional Status Date Assessment Result Facility 04-10-2025 Functional status Ambulates;Up ad lloyd;Gypsy ir Work Phone: 04-07-2025 Functional status Ambulates [facility] Work Phone: 11-08-2024 Functional status Chair [facility] Work Phone: 01-09-2024 Functional status Up ad lloyd [facility] Work Phone: 01-08-2024 Functional status Patient Activity Ambula collin Work Phone: Mental Status Date Assessment Result Facility 06-12-2025 Cognitive function Voice/Name [facility] Work Phone: 06-05-2025 Cognitive function Voice/Name [facility] Work Phone: 04-10-2025 Cognitive function Demonstrates ability to follow instructions/comprehend Work Phone: 04-10-2025 Cognitive function Voice/Name [facility] Work Phone: 04-07-2025 Cognitive function Follows Commands;Restl ess Work Phone: 11-07-2024 Cognitive function Voice/Name [facility] Work Phone: 01-09-2024 Cognitive function Voice/Name [facility] Work Phone: 01-08-2024 Cognitive function Awake;Alert;A ppropriate;Foll ows Commands Work Phone: Clinical Notes 01-08-2024 to 06-14-2025 Note Date & Type Note Facility 06-14-[address] [facility] 06-14-2025 Progress note Note Date/Time June 14, 2025 9:16am [facility] [place] [facility] [address] [address] OFFICE VISIT Date of Service: 06/14/25 0836 MR#: [id number] Acct: [id number] Name: MCKENNAPATRICK Archibald Jr. Rep #: [id number] : 1955 From: Ayden Bosch MD Age/Sex: 70/M Location: [facility] Status: Signed HPI Subjective Date of Service [...] follow up to start therapy. Feels well. [facility] Medical History Encounter for education Wears [...] Date (if applicable) CC: FRIEDA CALLAHAN ~ [employer] Work Phone: 1(337) 419-151707-28-2025 Consult note [facility] Medical Records Department [address] [place] [address] Anesthesia Postop Eval II 06/05/25 1625 MR#: [id number] Acct: [id number] Name: MCKENNAPATRICK Jr. Rep #:[id number] : 1955 70 From: Gavin Hill MD PCP: FRIEDA KEARNEY Status:[facility] Y Race: C Location: [place] [address] Anesthesia Postop Eval I Sum Postop Eval Completion status Anesthesia document: Postop Eval 1 completed: Yes Anesthesia Postop Eval I Summary Anesthesia Postop Eval I Summary: Anesthesia Postop Eval I: Assessment Summary Airway patent Yes 06/05/25 14:58 DIGITAL ANALYTICS MANAGER.JDEF Spontaneous unlabored Yes 06/05/25 14:58 DIGITAL ANALYTICS MANAGER.JDEF respirations Mental status Awake,Calm 06/05/25 14:58 DIGITAL ANALYTICS MANAGER.JDEF nausea No 06/05/25 14:58 DIGITAL ANALYTICS MANAGER.JDEF Vomiting No 06/05/25 14:58 DIGITAL ANALYTICS MANAGER.JDEF Anesthesia Postop Eval I: Fluid Summary Crystalloid volume administer 500 06/05/25 14:58 DIGITAL ANALYTICS MANAGER.JDEF (ml) Colloids volume administered ( ml) Blood Product volume administered (ml) Total IV fluid infused 500 06/05/25 14:58 DIGITAL ANALYTICS MANAGER.JDEF Anesthesia Postop Eval I: Summary Notes Anesthesia Complication No 06/05/25 14:58 DIGITAL ANALYTICS MANAGER.JDEF Anesthesia Complication Comment: Post-operative progress note Anesthesia: Postop Eval II Evaluation Mental status: Awake Pain Level: 0 nausea: No Vomiting: No 06/05/25 1625 > Date _ Gavin Dangeloignjosef Signature: Date CC: ~ Signed 07-28-2025 History and physical note Author Ray Sanders Note Date/Time June 05, 2025 1:40 pm [facility] Medical Records Department [address] [place] [address] History & Physical Exam 06/05/25 1338 MR#: [id number] Acct: [id number] Name: PATRICK ANDRES JrQuan Rep #:[id number] : 1955 70 From: Ray Sanders MD PCP: FRIEDA KEARNEY Status:[facility] Location: [place] [address] HPI - General General Date of Service: 06/05/25 Chief Complaint: Mediport placement HPI Narrative PATRICK ANDRES, is a 70 M who presents for elective Mediport placement for chemotherapy as treatment for lung cancer [facility] Medical History Wears glasses Wears dentures [...] FRIEDA CALLAHAN; Dr. Ray Sanders MD~ Signed Work Phone: 1(179) 374-633807-28-2025 Radiology Diagnostic study note [facility] Imaging Services [address] [place] [address] CXR for Line Placement MR#: [id number] Acct: [id number] Name: PATRICK ANDRES Jr. Rep #: [id number] : 1955 M 70 From: Alirio Kaplan MD PCP: FRIEDA KEARNEY Status: [facility] Study:CXR for Line Placement Date of Exam: 06/05/25 Exam# [id number] Ordering Dr: St esther Sanders MD PROCEDURE: [...] interval osseous change is seen. Reading Location: [place] [address] CC: FRIEDA CALLAHAN; Dr. Ray Sanders MD ~ History Instructor: Signed 07-28-2025 Procedure note [facility] Medical Records Department [address] [place] [address] Operative Report 06/05/25 1502 MR#: [id number] Acct: [id number] Name: PATRICK ANDRES Jr. Rep #:[id number] : 1955 70 From: Ray Sanders MD PCP: FRIEDA KEARNEY Status:[facility] Location: [place] [address] 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: Procedures Cardiovascular CF Procedures 33xxx-39xxx: 36238 Insert tunneled cv cath Operative Report (Standard) Operative Information Date of Procedure: 06/05/25 Pre-Operative Diagnosis: Lung cancer Post-Operative Diagnosis: Same Surgery/Procedure Performed: Left subclavian Mediport placement procedure rolling mill operator: No Type of Anesthesia: Local and MAC [...] FRIEDA CALLAHAN; Dr. Ray Sanders MD~ Signed 07-28-2025 Discharge summary [facility] Medical Records Department [address] [place] [address] Instructions for Home/Discharge Instructions 06/05/25 1457 MR#: [id number] Acct: [id number] Name: MCKENNASOUMYA Jr. Rep #:[id number] : 1955 70 From: Ray Sanders MD PCP: FRIEDA KEARNEY Status:[facility] Discharge Instructions Diet Discharge Diet: Light diet [...] Care Provider: JESUS CALLAHAN Instructions Print Language: Polish Discharge Orders/Prescriptions Prescriptions: New oxycodone 5 mg [...] Self Care 06/05/25 1502Stecasper Sanders MD CC: GRADER OPERATOR-C JESUS CALLAHAN ~ Signed 07-28-2025 Consult note [facility] Medical Records Department [address] [place] [address] Anesthesia Postop Eval I 06/05/25 1457 MR#: [id number] Acct: [id number] Name: PATRICK ANDRES Jr. Rep #:[id number] 22 : 1955 70 From: Adelaida Hou CRNA PCP: FRIEDA KEARNEY Status:REG [facility] Y Race: C Location: [place] [address] Anesthesia: Postop Eval I Current Vital Signs [...] Eval 1 completed: Yes 06/05/[address] DIGITAL ANALYTICS MANAGER> Date _ Adelaida DeForeest DIGITAL ANALYTICS MANAGER Cosigner Signature: Date CC: ~ Signed 07-28-2025 Consult note Author Gavin Hill Note Date/Time June 05, 2025 12:3 8pm [facility] Medical Records Department [address] [place] [address] Pre-Anesthesia Evaluation 06/05/25 1237 MR#: [id number] Acct: [id number] Name: PATRICK ANDRES Jr. Rep #:[id number] : 1955 70 From: Gavin Hill MD PCP: FRIEDA KEARNEY Status:REG [facility] Y Race: C Location: [place] [address] ASA Classification* ASA Classification ASA Classification: 3 [...] PORT LEFT Anesthesia History Anesthesia History - stoner hand: Anesthesia History - stoner hand Hx Hospitalization No 06/02/25 09:58 Any Problems [...] take am of surgery PONV PONV - stoner hand: PONV - stoner hand Female No 06/02/25 09:58 HX of Motion [...] 06/05/25 12:28 Respiratory Assessment Respiratory Assessment - stoner hand: Respiratory Tract Infection Hx - stoner hand Hx Respiratory Tract Infection No 06/02/25 09:58 STOP Sleep Apnea STOP Sleep Apnea - stoner hand: STOP Sleep Apnea - stoner hand Hx Hypertension Yes: NO MED FOR 5-6 [...] Tobacco Use History Tobacco Use History - stoner hand: Tobacco Use History - stoner hand Tobacco Use Smoking Status Current every day smoker 06/02/25 09:58 Hx Tobacco Use Yes 06/02/25 09:58 Years Smoking Packs Smoked per Day Smoking Cessation Date was within the last 15 years Hx Smoking Cessation Date Hx Smoking Cessation No 06/02/25 09:58 Counseling Hematologic Medial History Hematologic Hx - stoner hand: Hematologic Medical Hx - sap basis architect Hx of Blood Transfusion No 06/02/25 09:58 [...] 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 - stoner hand: /Reproductive Hx- stoner hand Hx Now No 06/02/25 09:58 Gestational Age [...] no additional complaints, except as documented. 06/05/25 9283 <Electronically signed by Gavin Hill MD > Date _ Gavin Hill MD Cosigner Signature: Date CC: ~ Signed Work Phone: 1(121) 965-747807-28-2025 History and physical note [facility] Medical Records Department [address] [place] [address] History & Physical Exam 06/05/25 1338 MR#: [id number] Acct: [id number] Name: PATRICK ANDRES Jr. Rep #:[id number] : 1955 70 From: Ray Sanders MD PCP: FRIEDA KEARNEY Status:[facility] Location: [place] [address] HPI - General General Date of Service: 06/05/25 Chief Complaint: Mediport placement HPI Narrative PATRICK ANDRES, is a 70 M who presents for elective Mediport placement for chemotherapy as treatment for lung cancer [facility] Medical History Wears glasses Wears dentures [...] 06/05/25 1340 Cosigner Signature (if applicable): CC: GRADER OPERATOR-C JESUS CALLAHAN; Dr. Ray Sanders MD~ Signed [facility] Consult note [facility] Medical Records Department [address] [place] [address] Pre-Anesthesia Evaluation 06/05/25 1237 MR#: [id number] Acct: [id number] Name: PATRICK ANDRES Jr. Rep #:[id number] : 1955 70 From: Gavin Hill MD PCP: FRIEDA KEARNEY Status:REG [facility] Y Race: C Location: [place] [address] ASA Classification* ASA Classification ASA Classification: 3 [...] PORT LEFT Anesthesia History Anesthesia History - stoner hand: Anesthesia History - stoner hand Hx Hospitalization No 06/02/25 09:58 Any Problems [...] take am of surgery PONV PONV - stoner hand: PONV - stoner hand Female No 06/02/25 09:58 HX of Motion [...] 06/05/25 12:28 Respiratory Assessment Respiratory Assessment - stoner hand: Respiratory Tract Infection Hx - stoner hand Hx Respiratory Tract Infection No 06/02/25 09:58 STOP Sleep Apnea STOP Sleep Apnea - stoner hand: STOP Sleep Apnea - stoner hand Hx Hypertension Yes: NO MED FOR 5-6 [...] Tobacco Use History Tobacco Use History - stoner hand: Tobacco Use History - stoner hand Tobacco Use Smoking Status Current every day smoker 06/02/25 09:58 Hx Tobacco Use Yes 06/02/25 09:58 Years Smoking Packs Smoked per Day Smoking Cessation Date was within the last 15 years Hx Smoking Cessation Date Hx Smoking Cessation No 06/02/25 09:58 Counseling Hematologic Medial History Hematologic Hx - stoner hand: Hematologic Medical Hx - sap basis architect Hx of Blood Transfusion No 06/02/25 09:58 [...] 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 - stoner hand: /Reproductive Hx- stoner hand Hx Now No 06/02/25 09:58 Gestational Age [...] Gavin Andujar Signature: Date CC: ~ Signed 07-23-2025 Progress [facility] [address] [place] [address] OFFICE VISIT Date of Service: 05/31/25 MR#: [id number] Acct: [id number] Name: MCKENNASOUMYA Jr. Rep #: [id number] : 1955 Provider: Dr. Jesse Sanders MD Age/Sex: 70/M Location: [facility] Status: Signed Intake Vital Signs 05/29/25 10:38 [...] Reasons: PORT PLACEMENT Chief Complaint: port placement Billboard Poster Required: No Is patient in pain?: No [...] FRIEDA CALLAHAN; Dr. Ayden Bosch MD ~ [facility]07-23-2025 Progress note Author Ray Sanders [facility] Note Date/Time May 31, 2025 12:5 8pm [facility] [address] [place], [place] [address] OFFICE VISIT Date of Service: 05/31/25 MR#: [id number] Acct: [id number] Name: PATRICK ANDRES JrQuan Rep #: [id number] : 1955 Provider: Dr. Jesse Sanders MD Age/Sex: 70/M Location: [facility] Status: Signed Intake Vital Signs 05/29/25 10:38 [...] Reasons: PORT PLACEMENT Chief Complaint: port placement Billboard Poster Required: No Is patient in pain?: No [...] fallen in the past year?: No 05/31/25 3112 <Electronically signed by Ray guzman MD> Date _ Ray Dangeloigner Signature: Date (if applicable) CC: GRADER OPERATOR-Jonathan CALLAHAN; Dr. Ayden Bosch MD ~ [facility] Work Phone: 1(849) 669-777306-02-2025 Consult note [facility] Medical Records Department [address] [place] [address] Counseling Note - Pharmacy 04/10/25 1444 MR#: [id number] Acct: [id number] Name: PATRICK ANDRES Jr. Rep #:[id number] : 1955 70 From: Fiorella Barraza PCP: JESUS CALLAHAN GRADER OPERATORTrina Status:ADM I N Y Location: [place] [address] Pharmacy SD Med Reconciliation Pharmacy Service has performed discharge [...] Signature (if applicable): Date CC: ~ Signed 06-02-2025 Discharge summary [facility] Medical Records Department [address] [place] [address] Discharge Summary 04/10/25 1422 MR#: [id number] Acct: [id number] Name: PATRICK ANDRES Rep #:[id number] : 1955 70 From: Malcolm Hanson DO PCP: JESUS CALLAHAN Status:ADM I N Location: [place] [address] Providers Date of Admission: 04/07/25 Primary Care [...] the costophrenic angles, probably adhesions. [facility] Chest [facility] 04/10/25 12:35 IMPRESSION: 1. Is tissue and patchy airspace disease. Status post removal of left-sided chest tube. No pneumothorax. 2. Suggestion of COPD. Reading [facility] Instructions Discharge Diet: No restrictions [...] Referrals / Follow Up: [facility] [Provider Group] - 04/14/25 9:45 am JESUS CALLAHAN NP-C [Primary Care Provider] - 04/17/25 Disposition Disposition (needs filled in before D/C Order can be placed): Home, Self Care Charges/Coding Visit Charges Inpatient E&M: 99733 Disch Hosp 04/10/25 3209 Cosigner Signature (if applicable): CC: Dr. Malcolm Hanson DO; JESUS CALLAHAN~ Signed 06-02-2025 [facility]06-02-2025 Radiology Diagnostic study note [facility] Imaging Services [address] [place], [place] [address] Chest PA and Lateral MR#: [id number] Acct: [id number] Name: PATRICK ANDRES JrQuan Rep #: [id number] : 1955 M 70 From: Paris Londono MD PCP: JESUS CALLAHAN Status: ADM I N Study:Chest PA and Lateral Date of Exam: 04/10/25 Exam# [id number] Ordering Dr: Padma Guerrero PA-C EXAM: XR [...] pneumothorax. 2. Suggestion of COPD. Reading [facility] CC: PABLO Guerrero; JESUS CALLAHAN ~ History Instructor: Signed 06-02-2025 Progress note Author Malcolm Hanson Note Date/Time April 10, 2025 10:41 am [facility] Medical Records Department [address] [place] [address] Progress Note - Hospitalist 04/10/25 0811 MR#: [id number] Acct: [id number] Name: PATRICK ANDRES Rep #:[id number] : 1955 70 From: Malcolm aHnson DO PCP: JESUS CALLAHAN Status:ADM I N Location: [place] [address] Reason for Visit Reason for Visit: Diagnoses [...] the costophrenic angles, probably adhesions. [facility] Physical Exam Const alert and no apparent [...] prophylaxis: LMWH. Charges/Coding Visit Charges Inpatient E&M: 63444 Subs Hosp L2 04/10/25 1041 <Electronically signed by Malcolm Hanson DO> Cosigner Signature (if applicable): CC: ~ Signed Work Phone: 1(491) 181-169506-02-2025 Progress note Author Padma Guerrero Note Date/Time April 10, 2025 10:30 am [facility] Medical Records Department [address] [place] [address] Progress Note - Surgery 04/10/25 1006 MR#: [id number] Acct: [id number] Name: MCKENNAPATRICK Archibald Jr. Rep #:[id number] : 1955 70 From: Padma REYNOSO PA-C PCP: JESUS CALLAHAN Status:ADM I N Location: [place] [address] Subjective Subjective Patient evaluated resting comfortably in [...] the costophrenic angles, probably adhesions. Reading Location: [place] [address] Physical Exam Resp normal respiratory effort and [...] this patient Charges/Coding Visit Charges Inpatient E&M: 65756 Subs Hosp L2 04/10/25 1012 <Electronically signed [...] Cosigner Signature (if applicable): cc: ~* Signed Work Phone: 1(480) 321-812606-02-2025 Progress note [facility] Medical Records Department [address] [place] [address] Progress Note - Hospitalist 04/10/25 0811 MR#: [id number] Acct: [id number] Name: PATRICK ANDRES Jr. Rep #:[id number] : 1955 70 From: Malcolm Hanson DO PCP: JESUS CALLAHAN GRADER OPERATOR-Jonathan Status:ADM I N Location: [place] [address] Reason for Visit Reason for Visit: Diagnoses [...] the costophrenic angles, probably adhesions. Reading Location: [place] [address] Physical Exam Const alert and no apparent [...] prophylaxis: LMWH. Charges/Coding Visit Charges Inpatient E&M: 65360 Subs Hosp L2 04/10/25 1041 Cosigner Signature (if applicable): CC: ~ Signed 06-02-2025 Progress note [facility] Medical Records Department [address] [place] [address] Progress Note - Surgery 04/10/25 1006 MR#: [id number] Acct: [id number] Name: MCKENNAPATRICK Jr. Rep #:[id number] : 1955 70 From: Padma REYNOSO PATrina PCP: JESUS CALLAHAN Status:ADM I N Location: [place] [address] Subjective Subjective Patient evaluated resting comfortably in [...] the costophrenic angles, probably adhesions. Reading Location: [place] [address] Physical Exam Resp normal respiratory effort and [...] this patient Charges/Coding Visit Charges Inpatient E&M: 13928 Subs Hosp L2 04/10/25 1012 Cosigner Signature [...] Cosigner Signature (if applicable): cc: ~* Signed 06-02-2025 Radiology Diagnostic study note [facility] Imaging Services [address] [place], [place] [address] Chest PA and Lateral MR#: [id number] Acct: [id number] Name: PATRICK ANDRES Jr. Rep #: [id number] : 1955 M 70 From: Rock Copeland MD PCP: JESUS CALLAHAN GRADER OPERATOR-C Status: ADM I N Study:Chest PA and Lateral Date of Exam: 04/10/25 Exam# [id number] Ordering Dr: St esther Sanders MD PROCEDURE: [...] the costophrenic angles, probably adhesions. Reading Location: [place] [address] CC: Dr. Ray Sanders MD; JESUS CALLAHAN ~ History Instructor: Signed 06-01-2025 Progress note Author Chuy Covarrubias Note Date/Time April 09, 2025 4:16p [facility] Medical Records Department [address] [place] [address] Progress Note - Hospitalist 04/09/25 1610 MR#: [id number] Acct: [id number] Name: PATRICK ANDRES Rep #:[id number] : 1955 70 From: Chuy Galan PCP: JESUS CALLAHAN Status:ADM I N Location: [facility] DC430-5 Reason for Visit Reason for Visit: Diagnoses [...] emphysema and hyperinflation again noted. Reading Location: [facility] Physical Exam Narrative No acute symptoms. Repeat [...] the left pneumothorax had resolved. Admit to [facility]. * Keep chest tube with oxygen for [...] emphysema and hyperinflation again noted. Reading Location: [facility] #Hypoxia due to iatrogenic pneumothorax: Management as [...] elects to be full code. * Total odgp-xm-mdbw time 16 minutes. Charges/Coding Visit Charges Inpatient E&M: 54342 Subs Hosp L2 04/09/25 1616 <Electronically signed by Chuy Covarrubias MD> Cosigner Signature (if applicable): CC: ~ Signed Work Phone: 1(823) 273-865306-01-2025 Progress note Author Ray Sanders Note Date/Time April 09, 2025 2:23p m [facility] Medical Records Department [address] [place] [address] Progress Note - Surgery 04/09/25 1421 MR#: [id number] Acct: [id number] Name: PATRICK ANDRES Jr. Rep #:[id number] : 1955 70 From: Ray Sanders MD PCP: JESUS CALLAHAN GRADER OPERATOR-C Status:ADM I N Location: [place] [id number] Subjective Subjective Patient seen and evaluated on [...] emphysema and hyperinflation again noted. Reading Location: [facility] Physical Exam Narrative He is alert and [...] this plan. Charges/Coding Visit Charges Inpatient E&M: 07301 Subs Hosp L2 04/09/25 1423 <Electronically signed by Ray Sanders MD> Cosigner Signature (if applicable): CC: ~ Signed Work Phone: 1(999) 602-828106-01-2025 Progress note [facility] Medical Records Department [address] [place] [address] Progress Note - Hospitalist 04/09/25 1610 MR#: [id number] Acct: [id number] Name: MCKENNASOUMYA Jr. Rep #:[id number] : 1955 70 From: Chuy Galan PCP: JESUS CALLAHAN Status:ADM I N Location: [place] [address] Reason for Visit Reason for Visit: Diagnoses [...] emphysema and hyperinflation again noted. Reading Location: [facility] Physical Exam Narrative No acute symptoms. Repeat [...] the left pneumothorax had resolved. Admit to [facility]. * Keep chest tube with oxygen for [...] emphysema and hyperinflation again noted. Reading Location: [id number] #Hypoxia due to iatrogenic pneumothorax: Management as [...] elects to be full code. * Total huvz-yq-ixnu time 16 minutes. Charges/Coding Visit Charges Inpatient E&M: 83652 Subs Hosp L2 04/09/25 1616 Cosigner Signature (if applicable): CC: ~ Signed 06-01-2025 Progress note [facility] Medical Records Department [address] [place] [address] Progress Note - Surgery 04/09/25 1421 MR#: [id number] Acct: [id number] Name: MCKENNAPATRICK Jr. Rep #:[id number] : 1955 70 From: Ray Sanders MD PCP: JESUS CALLAHAN GRADER OPERATOR-C Status:ADM I N Location: [place] [address] Subjective Subjective Patient seen and evaluated on [...] emphysema and hyperinflation again noted. Reading Location: [id number] Physical Exam Narrative He is alert and [...] this plan. Charges/Coding Visit Charges Inpatient E&M: 89888 Subs Hosp L2 04/09/25 1423 Cosigner Signature (if applicable): CC: ~ Signed 06-01-2025 Radiology Diagnostic study note [facility] Imaging Services [address] [place] [address] Chest PA and Lateral MR#: [id number] Acct: [id number] Name: PATRICK ANDRES Jr. Rep #: [id number] : 1955 M 70 From: Robb Cuevas MD PCP: JESUS CALLAHAN Status: ADM I N Study:Chest PA and Lateral Date of Exam: 04/09/25 Exam# [id number] Ordering Dr: St esther Sanders MD PROCEDURE: [...] emphysema and hyperinflation again noted. Reading Location: [facility] CC: Dr. Ray Sanders MD; JESUS CALLAHAN ~ History Instructor: Signed 05-31-2025 Progress note Author Chuy Covarrubias Note Date/Time April 08, 2025 5:13p [facility] Medical Records Department [address] [place] [address] Progress Note - Hospitalist 04/08/25 0751 MR#: [id number] Acct: [id number] Name: PATRICK ANDRES Jr. Rep #:[id number] : 1955 70 From: Chuy Galan PCP: JESUS CALLAHAN Status:ADM I N Location: [place] [address] Reason for Visit Reason for Visit: Diagnoses [...] % (Auto) 66.2, Lymph % (Auto) 20.0, [place] % (Auto) 12.0 H, Eos % (Auto) [...] % (Auto) 51.6, Lymph % (Auto) 30.2, [place] % (Auto) 14.3 H, Eos % (Auto) [...] The left pneumothorax has resolved. Reading Location: [facility]-1 Chest X-Ray 04/08/25 06:25 IMPRESSION: Left apical small caliber chest tube again seen not significantly changed. No pneumothorax definitely identified. Reading Location: [facility] Physical Exam Narrative Admitted with iatrogenic left [...] the left pneumothorax had resolved. Admit to [facility]. * Keep chest tube with oxygen for [...] elects to be full code. * Total uewo-vo-tyuq time 16 minutes. Charges/Coding Visit Charges Inpatient E&M: 11896 Subs Hosp L2 04/08/25 1714 <Electronically signed by Chuy Covarrubias MD> Cosigner Signature (if applicable): CC: ~ Signed Work Phone: 1(210) 821-336205-31-2025 Progress note [facility] System Medical Records Department [address] [place] [address] Progress Note - Hospitalist 04/08/25 0751 MR#: [id number] Acct: [id number] Name: MCKENNASOUMYA Jr. Rep #:[id number] : 1955 70 From: Chuy Galan PCP: JESUS CALLAHAN GRADER OPERATOR-C Status:ADM I N Location: [place] [address] Reason for Visit Reason for Visit: Diagnoses [...] % (Auto) 66.2, Lymph % (Auto) 20.0, [place] % (Auto) 12.0 H, Eos % (Auto) [...] % (Auto) 51.6, Lymph % (Auto) 30.2, [place] % (Auto) 14.3 H, Eos % (Auto) [...] The left pneumothorax has resolved. Reading Location: [facility] Chest X-Ray 04/08/25 06:25 IMPRESSION: Left apical small caliber chest tube again seen not significantly changed. No pneumothorax definitely identified. Reading Location: [facility] Physical Exam Narrative Admitted with iatrogenic left [...] the [facility] * Keep chest tube with oxygen [...] elects to be full code. * Total asvx-cj-nspy time 16 minutes. Charges/Coding Visit Charges Inpatient E&M: 10047 Subs Hosp L2 04/08/25 1713 Cosigner Signature (if applicable): CC: ~ Signed 05-31-2025 Progress note Author Ray Sanders Note Date/Time April 08, 2025 5:54a [facility] Medical Records Department [address] [place] [address] Progress Note - Surgery 04/08/25 0552 MR#: [id number] Acct: [id number] Name: PATRICK ANDRES Mago Bueno Rep #:[id number] : 1955 70 From: Ray Sanders MD PCP: JESUS CALLAHAN Status:ADM I N Location: [place] [address] Subjective Subjective Patient seen and evaluated on [...] % (Auto) 66.2, Lymph % (Auto) 20.0, [place] % (Auto) 12.0 H, Eos % (Auto) [...] The left pneumothorax has resolved. [facility] Physical Exam Narrative He is alert [...] x-ray results Charges/Coding Visit Charges Inpatient E&M: 77436 Subs Hosp L3 04/08/25 0554 <Electronically signed by Ray Sanders MD> Cosigner Signature (if applicable): CC: ~ Signed Work Phone: 1(758) 830-985905-31-2025 Radiology Diagnostic study note [facility] Imaging Services [address] [place], [place] [address] Chest PA and Lateral MR#: [id number] Acct: [id number] Name: PATRICK ANDRES Rep #: [id number] : 1955 M 70 From: Robb Cuevas MD PCP: JESUS CALLAHAN Status: ADM I N Study:Chest PA and Lateral Date of Exam: 04/08/25 Exam# [id number] Ordering Dr: St esther Sanders MD PROCEDURE: [...] changed. No pneumothorax definitely identified. Reading Location: [id number] CC: Dr. Rya Sanders MD; JESUSANA CALLAHAN ~ History Instructor: Signed 05-31-2025 Progress note [facility] Medical Records Department [address] [place] [address] Progress Note - Surgery 04/08/25 0552 MR#: [id number] Acct: [id number] Name: PATRICK ANDRES Jr. Rep #:[id number] : 1955 70 From: Ray Sanders MD PCP: JESUS CALLAHAN Status:ADM I N Location: [place] [address] Subjective Subjective Patient seen and evaluated on [...] % (Auto) 66.2, Lymph % (Auto) 20.0, [place] % (Auto) 12.0 H, Eos % (Auto) [...] The left pneumothorax has resolved. Reading Location: [facility] Physical Exam Narrative He is alert and [...] x-ray results Charges/Coding Visit Charges Inpatient E&M: 49981 Subs Hosp L3 04/08/25 0554 Cosigner Signature (if applicable): CC: ~ Signed 05-30-2025 History and physical note Author Michelle Do Note Date/Time April 07, 2025 5:52p m [facility] Medical Records Department [address] [place] [address] H&P Exam - Hospitalist 04/07/25 1258 MR#: [id number] Acct: [id number] Name: MCKENNASOUMYA Jr. Rep #:[id number] : 1955 70 From: Michelle Do MD PCP: JESUS CALLAHAN GRADER OPERATORMadhavC Status:ADM I N Location: [facility] AO828-5 HPI - General General Date of Admission: [...] in the ED were BP of 137/69, VA of 65, RR of 28 and oxygen [...] managed for iatrogenic pneumothorax after lung biopsy. [facility] Medical History BPH without urinary obstruction [...] % (Auto) 66.2, Lymph % (Auto) 20.0, [place] % (Auto) 12.0 H, Eos % (Auto) [...] The left pneumothorax has resolved. Reading Location: [place] [address] Assessment & Plan Assessment/Plan (1) Iatrogenic pneumothorax: [...] elects to be full code. * Total iesl-oi-udyo time 16 minutes. Charges/Coding Visit Charges Inpatient E&M: 19733 Init Hosp L3 Procedures Hospitalists Procedures: 16340 Advncd Care Plan 30 Min 04/07/25 1752 <Electronically signed by Michelle Do MD> Cosigner Signature (if applicable): CC: Dr. Michelle Do MD; JESUS GRADER OPERATOR-C [place]~ Signed Work Phone: 1(362) 172-991205-30-2025 Consult note Author Ray Sanders Note Date/Time April 07, 2025 4:48p m [facility] Medical Records Department [address] [place] [address] Consultation - Surgical 04/07/25 1643 MR#: [id number] Acct: [id number] Name: PATRICK ANDRES Jr. Rep #:[id number] : 1955 70 From: Ray Sanders MD PCP: JESUS CALLAHAN Status:ADM I N Location: [facility] BC136-4 Assessment & Plan Assessment/Plan (1) Iatrogenic pneumothorax: [...] day and sometimes 2 packs/day at times. [facility] Medical History BPH without urinary obstruction [...] % (Auto) 66.2, Lymph % (Auto) 20.0, [place] % (Auto) 12.0 H, Eos % (Auto) [...] The left pneumothorax has resolved. Reading Location: [place] [address] Charges/Coding Visit Charges Inpatient E&M: 90546 Init Hosp L3 04/07/25 1642 <Electronically signed by Ray Sanders MD> Cosigner Signature (if applicable): CC: JESUS CALLAHAN~ Signed Work Phone: 1(163) 163-371605-30-2025 History and physical note [facility] Medical Records Department [address] [place] [address] H&P Exam - Hospitalist 04/07/25 1258 MR#: [id number] Acct: [id number] Name: PATRICK ANDRES JrQuan Rep #:[id number] : 1955 70 From: Michelle Do MD PCP: JESUS CALLAHAN Status:ADM I N Location: [facility] ID754-3 HPI - General General Date of Admission: [...] in the ED were BP of 137/69, VA of 65, RR of 28 and oxygen [...] managed for iatrogenic pneumothorax after lung biopsy. [facility] Medical History BPH without urinary obstruction [...] % (Auto) 66.2, Lymph % (Auto) 20.0, [place] % (Auto) 12.0 H, Eos % (Auto) [...] The left pneumothorax has resolved. Reading Location: [facility] Assessment & Plan Assessment/Plan (1) Iatrogenic pneumothorax: (2) Hypoxemia: PLAN: Plan #Left iatrogenic pneumothorax after lung biopsy * Patient came in today to have scheduled left lung nodule biopsy. This procedure was complicated by left pneumothorax * Had a small caliber chest tube inserted in the ED. * Follow-up chest x-ray showed that the left pneumothorax had resolved. [facility] * Keep chest tube with oxygen [...] elects to be full code. * Total gzun-bu-towm time 16 minutes. Charges/Coding Visit Charges Inpatient E&M: 89405 Init Hosp L3 Procedures Hospitalists Procedures: 10851 Advncd Care Plan 30 Min 04/07/25 1752 Cosigner Signature (if applicable): CC: Dr. Michelle Do MD; JESUS CALLAHAN~ Signed 05-30-2025 Consult note [facility] Medical Records Department [address] [place] [address] Consultation - Surgical 04/07/25 1643 MR#: [id number] Acct: [id number] Name: PATRICK ANDRES Rep #:[id number] : 1955 70 From: Ray Sanders MD PCP: JESUS CALLAHAN Status:ADM I N Location: [facility] YA480-2 Assessment & Plan Assessment/Plan (1) Iatrogenic pneumothorax: [...] day and sometimes 2 packs/day at times. [facility] Medical History BPH without urinary obstruction [...] % (Auto) 66.2, Lymph % (Auto) 20.0, [place] % (Auto) 12.0 H, Eos % (Auto) [...] The left pneumothorax has resolved. Reading Location: [facility] Charges/Coding Visit Charges Inpatient E&M: 86712 Init Hosp L3 04/07/25 1648 Cosigner Signature (if applicable): CC: JESUS GRADER OPERATOR-C [place]~ Signed 05-30-2025 Evaluation note* Diagnosis Onset Date Resolution Status [...] induced neutropenia acute July 19, 2025 8:50am [facility] Work Phone: [phone] Evaluation note* Diagnosis Onset Date Resolution Status [...] Immunotherapy encounter acute S eptember 2024 7:49am [facility] Work Phone: [phone]) 968-606105-30-2025 Discharge summary Author Stefan Shultz Note Date/Time April 07, 2025 1:03p [facility] Medical Records Department [address] [place] [address] Emergency Department Summary 04/07/25 MR#: [id number] Acct: [id number] Name: PATRICK ANDRES Jr. Rep #:[id number] : 1955 70 From: Stefan Shultz MD PCP: JESUS CALLAHAN GRADER OPERATOR-C Status:REG E R Location: ED HPI History [...] he is having a hard time breathing. [facility] Medical History BPH without urinary [...] % (Auto) 66.2 Lymph % (Auto) 20.0 [place] % (Auto) 12.0 H Eos % (Auto) [...] The left pneumothorax has resolved. Reading Location: [facility] Management Discussion w/another healthcare provider: Hospitalist and Slipcover Cutter (surgery Marilyn - khadra to follow; pulm [...] disease), Hypoxemia Disposition Disposition: Acute Care Hospital [facility] What to do if you have Problems For any increased pain, shortness of breath, bleeding, nausea or vomiting, chestpain, or any unexpected problems, contact your Primary Care Provider. Call [facility] ([phone]) or report to the closest Emergency Room. Call 911 if necessary. 04/07/25 1303 <Electronically signed by Stefan Shultz MD> Cosigner Signature (if applicable): CC: JESUS MALAVE [place] ~ Signed Work Phone: 1(565) 400-499205-30-2025 Discharge summary Author Stefan Shultz Note Date/Time April 07, 2025 1:03p [facility] Medical Records Department [address] [place] [address] Emergency Department Summary 04/07/25 MR#: [id number] Acct: [id number] Name: PATRICK ANDRES Jr. Rep #:[id number] : 1955 70 From: Stefan Shultz MD PCP: JESUS CALLAHAN GRADER OPERATOR-C Status:REG E R Location: ED HPI History [...] he is having a hard time breathing. [facility] Medical History BPH without urinary [...] % (Auto) 66.2 Lymph % (Auto) 20.0 [place] % (Auto) 12.0 H Eos % (Auto) [...] The left pneumothorax has resolved. Reading Location: [place] [address] Management Discussion w/another healthcare provider: Hospitalist and Slipcover Cutter (surgery [place] - ok to follow; pulm [...] disease), Hypoxemia Disposition Disposition: Acute Care Hospital [facility] What to do if you have Problems For any increased pain, shortness of breath, bleeding, nausea or vomiting, chestpain, or any unexpected problems, contact your Primary Care Provider. Call [facility] ([phone]) or report to the closest Emergency Room. Call 911 if necessary. 04/07/25 1303 <Electronically signed by Stefan Shultz MD> Cosigner Signature (if applicable): CC: JESUS CALLAHAN ~ Signed Work Phone: 1(417) 332-564505-30-2025 Discharge summary [facility] Medical Records Department [address] [place] [address] Emergency Department Summary 04/07/25 MR#: [id number] Acct: [id number] Name: MCKENNAPATRICK Jr. Rep #:[id number] : [...] he is having a hard time breathing. [facility] Medical History BPH without urinary [...] % (Auto) 66.2 Lymph % (Auto) 20.0 [place] % (Auto) 12.0 H Eos % (Auto) [...] The left pneumothorax has resolved. Reading Location: [place] [address] Management Discussion w/another healthcare provider: Hospitalist and Slipcover Cutter (surgery [place] - ok to follow;pulm not [...] pulmonary disease), Hypoxemia Disposition Disposition: Acute Care [facility] What to do if you have Problems For any increased pain, shortness of breath, bleeding, nausea or vomiting, chestpain, or any unexpected problems, contact your Primary Care Provider. Call [facility] ([phone]) or report tothe closest Emergency Room. Call 911 if necessary. 04/07/25 1303 Cosigner Signature (if applicable): CC: JESUS CALLAHAN ~ Signed 05-30-2025 Radiology Diagnostic study note [facility] Imaging Services [address] [place] [address] Chest Insp/Exp 2 View MR#: [id number] Acct: [id number] Name: PATRICK ANDRES Jr. Rep #: [id number] : 1955 M 70 From: Siva Barahona MD PCP: JESUS CALLAHAN Status: REG E R Study:Chest Insp/Exp 2 View Date of Exam: 04/07/25 Exam# [id number] Ordering Dr: Cindy Shultz MD EXAM: Chest [...] The left pneumothorax has resolved. Reading Location: [place] [address] CC: Dr. Stefan Shultz MD; JESUS CALLAHAN ~ History Instructor: Signed 05-30-2025 Radiology Diagnostic study note [facility] Imaging Services [address] [place] [address] Biopsy/Inj or Needle Placement MR#: [id number] Acct: [id number] Name: PATRICK ANDRES Jr. Rep #: [id number] : 1955 M 70 From: Siva Barahona MD PCP: JESUS CALLAHAN Status: REG C LI Study:Biopsy/Inj or Needle Placement Date of Exam: 04/07/25 Exam# [id number] Ordering Dr: Jonathan Ledezma NP PROCEDURE: BIOPSY/INJ [...] pneumothorax which was treated appropriately. Reading Location: [place] [address] CC: FRIEDA Ledezma; JESUS CALLAHAN ~ History Instructor: Signed 05-30-2025 Radiology Diagnostic study note [facility] Imaging Services [address] [place] [address]1221 Chest Insp/Exp 2 View MR#: [id number] Acct: [id number] Name: PATRICK ANDRES Jr. Rep #: [id number] : 1955 M 70 From: Siva Barahona MD PCP: JESUS CALLAHAN Status: REG C LI Study:Chest Insp/Exp 2 View Date of Exam: 04/07/25 Exam# [id number] Ordering Dr: Saulo Dowd i, MD EXAM: [...] emergency room for appropriate treatment. Reading Location: [facility] CC: Dr. Saulo Barahona MD; JESUS CALLAHAN ~ History Instructor: Signed 05-06-2025 Evaluation note* Diagnosis Onset Date Resolution Status [...] left lung acute June 05, 2025 12:04pm Work Phone: [phone] Evaluation note* Diagnosis Onset Date Resolution Status [...] left lung acute June 12, 2025 9:26am [facility] Work Phone: [phone]) 800-697405-06-2025 Evaluation note* Diagnosis Onset Date Resolution Status [...] Immunotherapy encounter acute A ugust 2024 7:35am [facility] Work Phone: [phone] Evaluation note* Diagnosis Onset Date Resolution Status [...] of left lung acute June 29 8:52am [facility] Work Phone: [phone] Evaluation note* Diagnosis Onset Date Resolution Status [...] induced neutropenia acute July 05, 2025 8:17am [facility] Work Phone: [phone] Evaluation note* Diagnosis Onset Date Resolution Status [...] use disorder inactive April 19, 2025 7:40am Work Phone: [phone] 602-472603-25-2025 Evaluation note* Diagnosis Onset Date Resolution Status [...] left lung acute May 01, 2025 9:12am [facility] Work Phone: [phone]) 727-211403-25-2025 Evaluation note* Diagnosis Onset Date Resolution Status [...] left lung acute May 29, 2025 10:21am [facility] Work Phone: [phone]) 978-357003-25-2025 Evaluation note* Diagnosis Onset Date Resolution Status [...] left lung acute May 31, 2025 12:40pm [facility] Work Phone: [phone] Evaluation note* Diagnosis Onset Date Resolution Status [...] use disorder chronic March 14, 2025 8:33am Work Phone: 1(369) 286-846602-17-2025 Evaluation note* Diagnosis Onset Date Resolution Status [...] obstructive pulmonary disease) chronic April 07 1:24pm Work Phone: [phone] 666-368802-17-2025 Evaluation note* Diagnosis Onset Date Resolution Status [...] use disorder inactive April 19, 2025 7:40am [facility] Work Phone: [phone] [facility]12-30-2024 Evaluation note* Diagnosis Onset Date Resolution [...] Tobacco use disorder chronic Wilson 2024 8:49am Work Phone: [phone] 117-906003-11-2024 Procedure [facility] 01-09-2024 Discharge summary Author Emma Wilson January 09, 2024 1:30pm Note Date/Time January 09, 2024 10:1 5am [facility] Medical Records Department [address] [place] [address] Discharge Summary 01/09/24 1008 MR#: [id number] Acct: [id number] Name: PATRICK ANDRES Jr. Rep #:[id number] : 1955 68 From: Emma Wilson DO PCP: JESUS CALLAHAN Status:ADM I NO Location: [place] [address] Providers Date of Admission: 01/08/24 Date of [...] has had a previous anterior and inferior PA -We will cycle cardiac enzymes -Obtain previous medical records in the form of echo and EKG from [facility] if available -Start aspirin 81 mg daily [...] male who presented to the emergency department on 01/08/2024 for an iatrogenic pneumothoraxthat he sustained after undergoing a CT-guided biopsy for left-sided lung mass. He evidently underwent a low-dose CT scan at [facility] on 12/16/2023 that demonstrated bilateral emphysematous [...] when he had any symptoms consistent with PA. I have asked him to see Dr. [...] % (Auto) 63.0, Lymph % (Auto) 25.8, [place]ce% (Auto) 9.7, Eos % (Auto) 0.9, Baso [...] 9:46 EST Reading Location ID and State: [address] [place] [address] , Service support , D/C Instructions Discharge [...] and Lateral (Routine) Timeframe: 1 Week Facility: [facility] - Location: Ordered By: Dr. Caden Lockwood Referrals / [...] you were in the hospital) JESUS CALLAHAN GRADER OPERATOR-C [Primary Care Provider] - See Referral Note (as needed) Disposition Disposition (needs filled in before D/C Order can be placed): Home, Self Care Charges/Coding Visit Charges Inpatient E&M: 53569 Disch Hosp >30min 01/09/24 1330 <Electronically signed by Emma Wilson DO> Cosigner Signature (if applicable): CC: Dr. Pierre Catalan DO; Dr. Emma Wilson DO; Dr. Lenny Franks MD; JESUS CALLAHAN~ Signed Work Phone: 1([phone]) 836-883203-02-2024 Progress note Author Caden Lockwood January 09, 2024 9:58am Note Date/Time January 09, 2024 9:58 am [facility] Medical Records Department [address] [place] [address] Progress Note 01/09/24 0957 MR#: [id number] Acct: [id number] Name: PATRICK ANDRES Jr. Rep #:[id number] : 1955 68 From: Caden juarez MD PCP: JESUS CALLAHAN Status:ADM I NO Location: AL3 RX038-1 Progress Note Patient had chest x-ray which [...] x-ray is obtained. Caden Lockwood MD Pager: [facility] [address] [place] [address], [address] [place] [address] Office: 01/09/2485 <Electronically signed by Caden Lockwood MD> Caden Lockwood MD Cosigner Signature (if applicable): CC: ~ Signed Work Phone: 1([phone]) 887-729103-02-2024 Progress note Author Caden Lockwood January 09, 2024 8:12am Note Date/Time January 09, 2024 8:12 am [facility] Medical Records Department [address] [place] [address] Progress Note - Surgery 01/09/24 0812 MR#: [id number] Acct: [id number] Name: PATRICK ANDRES Jr. Rep #:[id number] : 1955 68 From: Caden juarez MD PCP: JESUS CALLAHAN GRADER OPERATORTrina Status:ADM I NO Location: [place] [address] Subjective Subjective Patient is comfortable with no [...] % (Auto) 63.0, Lymph % (Auto) 25.8, [place]% (Auto) 9.7, Eos % (Auto) 0.9, Baso [...] can go home. Caden Lockwood MD Pager: [facility] [address] [place] [address], [address] [place] [address] Office: 01/09/24 0812 <Electronically signed by Caden Lockwood MD> Cosigner Signature (if applicable): CC: ~ Signed Work Phone: 1(370) 307-164203-01-2024 Consult note Author Caden Lockwood January 08, 2024 4:55pm Note Date/Time January 08, 2024 4:55 pm [facility] Medical Records Department [address] [place] [address] Consultation - Surgical 01/08/24 1653 MR#: [id number] Acct: [id number] Name: PATRICK ANDRES Jr. Rep #:[id number] : 1955 68 From: Caden juarez MD PCP: JESUS CALLAHAN Status:ADM I NO Location: [place] [address] Assessment & Plan Assessment/Plan (1) Iatrogenic pneumothorax: [...] in the morning. Caden Lockwood MD Pager: [facility] [address] [place] [address], [address] [place] [address] Office: HPI Consult Data Date of Consult: [...] but he is not short of breath. [facility] Medical History (Updated 01/08/24 @ 13:41 by Auer Kenyon) Hypertension Smoker Vision loss of left [...] % (Auto) 63.0, Lymph % (Auto) 25.8, [place]% (Auto) 9.7, Eos % (Auto) 0.9, Baso [...] EST Reading Location ID and State: [facility] , Service support , 01/08/24 1652 <Electronically signed by Caden Lockwood MD> Cosigner Signature (if applicable): CC: Dr. Caden Lockwood MD; JESUS CALLAHAN~ Signed Work Phone: 1([phone]) 407-838203-01-2024 Discharge summary Author James Lewis January 08, 2024 4:20pm Note Date/Time January 08, 2024 10:3 0am [facility] Medical Records Department [address] [place] [address] Emergency Department Summary 01/08/24 MR#: [id number] Acct: [id number] Name: PATRICK ANDRES JrQuan Rep #:[id number] : 1955 68 From: James Lewis MD PCP: JESUS CALLAHAN Status:ADM I NO [facility] H[facility] History of Present Illness Chief Complaint: [...] patient will be an observation admission to [facility]. History & Record Review Discussion w/independent historian: [...] in place Disposition Disposition: Acute Care Hospital [facility] What to do if you have Problems For any increased pain, shortness of breath, bleeding, nausea or vomiting, chestpain, or any unexpected problems, contact your Primary Care Provider. Call [facility] ([phone]) or report to the closest Emergency Room. Call 911 if necessary. 01/08/24 1620 <Electronically signed by James Lewis MD> Cosigner Signature (if applicable): CC: JESUS CALLAHAN ~ Signed Work Phone: 1(218) 675-954303-01-2024 History and physical note Author Emma Wilson January 08, 2024 12:23pm Note Date/Time January 08, 2024 11:5 2am [facility] Medical Records Department [address] [place] [address] H&P Exam - Hospitalist 01/08/24 1151 MR#: [id number] Acct: [id number] Name: PATRICK ANDRES Rep #:[id number] : 1955 68 From: Emma Wilson DO PCP: JESUS CALLAHAN Status:REG E R Location: ED HPI - General General Date of Service: 01/08/24 Chief Complaint: Iatrogenic pneumothorax HPI Narrative PATRICK ANDRES, is a 68 M who presented to the emergency department at on 01/08/2024 for iatrogenic pneumothorax that he sustained post CT-guided biopsy for a left-sided lung mass. He evidently underwent a low-dose CT scan at [facility] on 12/16/2023 that demonstrated bilateral emphysematous [...] air. Labs had not yet been obtained. [facility] Medical History Hypertension Home Medications erythromycin [...] has had a previous anterior and inferior PA -We will cycle cardiac enzymes -Obtain previous medical records in the form of echo and EKG from [facility] if available -Start aspirin 81 mg daily [...] -Full code Charges/Coding Visit Charges Inpatient E&M: 47307 Init Hosp L2 01/08/24 1223 <Electronically signed by Emma Wilson DO> Cosigner Signature (if applicable): CC: Dr. Emma Wilson DO; JESUS GRADER OPERATOR-C [place]~ Signed Work Phone: [phone] 596-772503-01-2024 Procedure [facility] Consult note Author Fiorella Barraza Note Date/Time April 10, 2025 3:15p m [facility] Medical Records Department [address] [place] [address] Counseling Note - Pharmacy 04/10/25 1444 MR#: [id number] Acct: [id number] Name: PATRICK ANDRES Jr. Rep #:[id number] : 1955 70 From: Fiorella Barraza PCP: JESUS CALLAHAN Status:ADM I N Y Location: [place] [address] Pharmacy [place] Med Reconciliation Pharmacy Service has performed discharge [...] Signature (if applicable): Date CC: ~ Signed Work Phone: Consult note Author Adelaida Hou Note Date/Time June 05, 2025 2:58 pm [facility] Medical Records Department [address] [place] [address] [place] [address] Anesthesia Postop Eval I 06/05/25 1457 MR#: [id number] Acct: [id number] Name: PATRICK ANDRES Jr. Rep #:[id number] : 1955 70 From: Adelaida Hou CRNA PCP: FRIEDA KEARNEY Status:REG SDC Y Race: C Location: [place] [address] Anesthesia: Postop Eval I Current Vital Signs [...] 06/05/25 1458 <Electronically signed by Adelaida ventura DIGITAL ANALYTICS MANAGER> Date _ Adelaida Hou DIGITAL ANALYTICS MANAGER Cosigner Signature: Date CC: ~ Signed Work Phone: Consult note Author Gavin [facility] Note Date/Time June 05, 2025 4:45 pm [facility] Medical Records Department [address] [place] [address] Anesthesia Postop Eval II 06/05/25 1625 MR#: [id number] Acct: [id number] Name: PATRICK ANDRES Jr. Rep #:[id number] : 1955 70 From: Gavin Hill MD PCP: FRIEDA KEARNEY Status:REG SDC Y Race: C Location: [place] [address] Anesthesia Postop Eval I Sum Postop Eval Completion status Anesthesia document: Postop Eval 1 completed: Yes Anesthesia Postop Eval I Summary Anesthesia Postop Eval I Summary: Anesthesia Postop Eval I: Assessment Summary Airway patent Yes 06/05/25 14:58 DIGITAL ANALYTICS MANAGER.JDEF Spontaneous unlabored Yes 06/05/25 14:58 DIGITAL ANALYTICS MANAGER.JDEF respirations Mental status Awake,Calm 06/05/25 14:58 DIGITAL ANALYTICS MANAGER.JDEF nausea No 06/05/25 14:58 DIGITAL ANALYTICS MANAGER.JDEF Vomiting No 06/05/25 14:58 DIGITAL ANALYTICS MANAGER.JDEF Anesthesia Postop Eval I: Fluid Summary Crystalloid volume administer 500 06/05/25 14:58 DIGITAL ANALYTICS MANAGER.JDEF (ml) Colloids volume administered ( ml) Blood Product volume administered (ml) Total IV fluid infused 500 06/05/25 14:58 DIGITAL ANALYTICS MANAGER.JDEF Anesthesia Postop Eval I: Summary Notes Anesthesia Complication No 06/05/25 14:58 DIGITAL ANALYTICS MANAGER.JDEF Anesthesia Complication Comment: Post-operative progress note Anesthesia: Postop Eval II Evaluation Mental status: Awake Pain Level: 0 nausea: No Vomiting: No 06/05/25 1625 <Electronically signed by Gavin Hill MD > Date _ Gavin Hill [facility] Signature: Date CC: ~ Signed Work Phone: Discharge summary Author Malcolm Hanson Note Date/Time April 10, 2025 2:24p [facility] Medical Records Department [address] [place] [address] Discharge Summary 04/10/25 1422 MR#: [id number] Acct: [id number] Name: PATRICK ANDRES Jr. Rep #:[id number] : 1955 70 From: Malcolm Hanson DO PCP: JESUS CALLAHAN Status:ADM I N Location: [facility] [id number] Providers Date of Admission: 04/07/25 Primary Care [...] the costophrenic angles, probably adhesions. [facility] 04/10/25 12:35 IMPRESSION: 1. Is tissue and patchy airspace disease. Status post removal of left-sided chest tube. No pneumothorax. 2. Suggestion of COPD. Reading [facility] Instructions Discharge Diet: No restrictions [...] Referrals / Follow Up: [facility] [Provider Group] - 04/14/25 9:45 am JESUS CALLAHAN NP-C [Primary Care Provider] - 04/17/25 Disposition Disposition (needs filled in before D/C Order can be placed): Home, Self Care Charges/Coding Visit Charges Inpatient E&M: 43642 Disch Hosp 04/10/25 1484 <Electronically signed by Malcolm Hanson DO> Cosigner Signature (if applicable): CC: Dr. Malcolm Hanson DO; JESUS CALLAHAN~ Signed Work Phone: Discharge summary Author Ray Sanders Note Date/Time June 05, 2025 3:02 pm [facility] Medical Records Department [address] [place] [address] Instructions for Home/Discharge Instructions 06/05/25 1457 MR#: [id number] Acct: [id number] Name: PATRICK ANDRES Jr. Rep #:[id number] : 1955 70 From: Ray Sanders MD PCP: FRIEDA KEARNEY Status:REG [facility] Discharge Instructions Diet Discharge Diet: Light diet [...] Primary Care Provider: JESUS CALLAHAN Print Language: Polish Discharge Orders/Prescriptions Prescriptions: New oxycodone 5 mg [...] can be placed): Home, Self Care 06/05/25 8032<Electronically signed by Ray Sanders MD>Ray Sanedrs MD CC: GRADER OPERATOR-C JESUS CALLAHAN ~ Signed Work Phone: Evaluation + Plan note Future Appointments Appointment Date:10/21/2021 10:40:00 AM Scheduled Provider:WENDY CHRISTINA APRN, CNP Location:[facility] Appointment Type:PC OV [facility] Evaluation + Plan note Future Appointments Appointment Date:09/06/2021 09:00:00 AM Scheduled Provider:WENDY CHRISTINA APRN - PROGRAM AND RESEARCH COORDINATOR Location:[facility] Appointment Type: OV Follow Up [facility] Evaluation + Plan note Future Appointments Appointment Date:12/23/2023 07:00:00 AM Scheduled Provider:JESUS CALLAHAN Location:[facility] Appointment Type:PC OV Follow Up Future Scheduled Tests Radiology* CT Low Dose Lung Cancer Screening (LDCT) 11/25/23 [facility] Evaluation + Plan note Future Appointments Appointment Date:12/23/2023 07:00:00 AM Scheduled Provider:JESUS CALLAHAN Location:[facility] Appointment Type: OV Follow Up [facility] Evaluation + Plan note Future Appointments Appointment Date:06/22/2024 07:00:00 AM Scheduled Provider:JESUS CALLAHAN Location:[facility] Appointment Type: OV Follow Up [facility] Evaluation note* Diagnosis Onset Date Resolution Status Nicotine dependence, cigarettes, uncomplicated chronic Pulmonary nodules chronic Iatrogenic pneumothorax acut e Mass of left lung acute Thoracostomy tube in place a cute Nicotine dependence, cigarettes, uncomplicated [facility] Work Phone: Evaluation note* Diagnosis Onset Date Resolution Status Pulmonary nodules chronic Iatrogenic pneumothorax reso lved Thoracostomy tube in place r esolved Pulmonary nodules [facility] Work Phone: History and physical note Author Emma Wilson January 08, 2024 12:23pm Note Date/Time January 08, 2024 11:5 2am [facility] Medical Records Department [address] [place] [address] H&P Exam - Hospitalist 01/08/24 1151 MR#: [id number] Acct: [id number] Name: PATRICK ANDRES Jr. Rep #:[id number] : 1955 68 From: Emma Wilson DO PCP: JESUS CALLAHAN GRADER OPERATOR-C Status:REG E R Location: ED HPI - General General Date of Service: 01/08/24 Chief Complaint: Iatrogenic pneumothorax HPI Narrative PATRICK ANDRES, is a 68 M who presented to the emergency department at on 01/08/2024 for iatrogenic pneumothorax that he sustained post CT-guided biopsy for a left-sided lung mass. He evidently underwent a low-dose CT scan at [facility] on 12/16/2023 that demonstrated bilateral emphysematous [...] air. Labs had not yet been obtained. [facility] Medical History Hypertension Home Medications erythromycin [...] has had a previous anterior and inferior PA -We will cycle cardiac enzymes -Obtain previous medical records in the form of echo and EKG from [facility] if available -Start aspirin 81 mg daily [...] -Full code Charges/Coding Visit Charges Inpatient E&M: 05725 Init Hosp L2 01/08/24 1223 <Electronically signed by Emma Wilson DO> Cosigner Signature (if applicable): CC: Dr. Emma Wilson DO; JESUS GRADER OPERATOR-C [place]~ Signed Work Phone: Hospital course Narrative No data available for this section [facility] Hospital Discharge instructions No data available for this section [facility] Hospital Discharge instructionsAmbulatory Orders* Fast Pass: Oncology Referral [facility] Location: None [facility] Work Phone: Hospital Discharge instructionsAmbulatory Orders* General Surgery Location: None [facility] Work Phone: Hospital Discharge instructionsAmbulatory Orders* Prior Authorization Referral - ONC/HEM Location: None [facility] Work Phone: Progress note No data available for this section [facility] Reason for referral (narrative)No reason for referral information [facility] Work Phone: Chief Complaint and Reason [...] :24pm Adenocarcinoma of lower lobe of left agl g April 19, 2025 7:40am COPD (chronic [...] No January 08, 2024 10:20am Power of Church Worker No January 07 10:20am Advance Directive Response Recorded Date/ Time Living Will No January 08, 2024 1:36pm Power of Church Worker No January 07 1:36pm Advance Directive Response Recorded Date/ Time Living Will No January 08, 2024 2:36pm Power of Church Worker No January 07 2:36pm Advance Directive Response Recorded Date/ Time Living Will No November 07, 2 024 3:21am Do you have a Healthcare Power of Church Worker? No November 07, 2024 3:21am Advance Directive Response Recorded Date/ Time Do you have a Healthcare Power of Church Worker? No April 07, 2025 10:51am Advance Directive Response Recorded Date/ Time Do you have a Healthcare Power of Church Worker? No April 07, 2025 2:21pm Advance Directive Response Recorded Date/ Time Do you have a Healthcare Power of Church Worker? No June 02, 2025 9:58am Do you have a Healthcare Power of Church Worker? No April 07, 2025 2:21pm Advance Directive Response Recorded Date/ Time Do you have a Healthcare Power of Church Worker? No June 02, 2025 9:58am Do you have a Healthcare Power of Church Worker? No April 07, 2025 2:21pm Advance Directives on File Yes Augus t 2024 9:48am Living Will Yes June 14, 2025 9:48am Do you have a Healthcare Power of Church Worker? Yes June 14, 2025 9:48am Name of Medical Power of Church Worker Honey June 14, 2025 9:48am Advance Directives Yes June 14, 025 9:48am Advance Directive Response Recorded Date/ Time Do you have a Healthcare Power of Church Worker? No June 02, 2025 9:58am Do you have a Healthcare Power of Church Worker? No April 07, 2025 2:21pm Advance Directives on File Yes Augus t 2024 1:53pm Living Will Yes July 06 1:53pm Do you have a Healthcare Power of Church Worker? Yes July 06, 2025 1:53pm Name of Medical Power of Church Worker Honey July 06, 2025 1:53pm Advance Directives [...] Physician Family Provider Active JESUS L[place]ON , GRADER OPERATOR-C Primary Care Provider Active Team Status: Inactive Member Role Status Dates No Primary Care Physician Primary Care Provider, Refer ring Provider Active Dr. Pierre Catalan DO Attending Provider Active Team Status: Active Member Role Status Dates JESUS L[place] , GRADER OPERATOR-C Primary Care Provider Active Dr. Pierre Catalan DO Referring Provider, Other Provide r Active Sharyn Chavez GRADER OPERATOR-C Attending Provider Active Team Status: Active Member Role Status Dates JESUS L[place] , GRADER OPERATOR-C Primary Care Provider Active Dr. James Lewis MD Emergency Provider Active Dr. Emma Wilson DO Attending Provider Active Team Status: Active Member Role Status Dates JESUS [place] , GRADER OPERATOR-C Primary Care Provider Active Dr. Pierre Catalan DO Attending Provider, Referring Pro vider Active Team Status: Active Member Role Status Dates JESUS L[place] , GRADER OPERATOR-C Primary Care Provider Active Dr. James Lewis MD Emergency Provider Active Dr. Emma Wilson DO Admit Provider, Attending Provide r Active Team Status: Active Member Role Status Dates JESUS L[place]ON , GRADER OPERATOR-C Primary Care Provider Active Dr. James Lewis MD Emergency Provider Active Dr. Emma Wilson DO Admit Provider, Other Provider Ac tive Dr. Caden Lockwood MD Attending Provider, Other Provider Active Team Status: Active Member Role Status Dates JESUS L[place]ON , GRADER OPERATOR-C Primary Care Provider Active Dr. James Lewis MD Emergency Provider Active Dr. Emma Wilson DO Admit Provider, Att ending Provider, Other Provider Active Dr. Caden Lockwood MD Other Provider Active Team Status: Inactive Member Role Status Dates JESUS L[place]ON , GRADER OPERATOR-C Primary Care Provider Active Dr. James Lewis MD Emergency Provider Active Dr. Emma Wilson DO Admit Provider, Attending Provide r Active Dr. Caden Lockwood MD Other Provider Active Team Status: Inactive Member Role Status Dates JESUS L[place] , GRADER OPERATOR-C Primary Care Provider Active Dr. Pierre Catalan DO Attending Provider, Referring Pro vider Active Team Status: Active Member Role Status Dates JESUS [place] , GRADER OPERATOR-C Primary Care Provider Active Dr. James Lewis MD Emergency Provider Active Dr. Emma Steve , DO Admit Provider, Ref erring Provider, Other Provider Active Dr. Caden Lockwood MD Attending Provider, Other Provider Active Team Status: Active Member Role Status Dates JESUS CALLAHAN GRADER OPERATOR-C Primary Care Provider Active Dr. James Lewis MD Emergency Provider Active Dr. Emma Wilson , DO Admit Provider, Other Provider Ac tive Dr. Caden Lockwood MD Attending Pr ovider, Referring Provider, Other Provider Active Team Status: Active Member Role Status Dates JESUS CALLAHAN GRADER OPERATOR-C Primary Care Provider Active Dr. Pierre Catalan , Referring Provider, Other Provide r Active Dr. Caden Lockwood MD Other Provider Active Dr. Justin Farah MD Attending Provider Active Team Status: Inactive Member Role Status Dates JESUS CALLAHAN GRADER OPERATOR-C Primary Care Provider Active Dr. Pierre Catalan , Attending Provider, Referring Pro vider Active Dr. Caden Lockwood MD Other Provider Active Team Status: Active Member Role Status Dates JESUS CALLAHAN GRADER OPERATOR-C Primary Care Provider Active Team Status: Inactive Member Role Status Dates JESUS CALLAHAN GRADER OPERATOR-C Primary Care Provider Active Start: November 07, [...] Active Member Role Status Dates JESUS CALLAHAN GRADER OPERATOR-C Primary Care Provider Active Start: November 07, [...] Member Role Status Dates JESUS L[place] , GRADER OPERATOR-C Primary Care Provider Active Start: November 07, 2024 Dr. Malcolm Torres MD Attending Provider Active S tart: November 07, 2024 Dr. Goldy Patino DO Referring Provider Active Start: November 07, 2024 Team Status: Active Member Role Status Dates JESUS L[place]ON , GRADER OPERATOR-C Primary Care Provider Active Start: November 07, 2024 Dr. Freddy Mayen MD Attending Provider Active S tart: November 07, 2024 Team Status: Active Member Role Status Dates JESUS [place] , GRADER OPERATOR-C Primary Care Provider Active Start: November 08, [...] Member Role Status Dates JESUS [place] , GRADER OPERATOR-C Primary Care Provider Active Start: November 11, 2024 End: November 11, 2024 JESUS L[place]ON , GRADER OPERATOR-C Referring Provider Active Start: November 11, 2024 End: November 11, 2024 EDGARDO Steele Attending Provider Active Star t: November 11, 2024 End: November 11, 2024 Team Status: Inactive Member Role Status Dates JESUS L[place] , GRADER OPERATOR-C Primary Care Provider Active Start: December 01, 2024 End: December 01, 2024 EDGARDO Steele Attending Provider Active Star t: December 01, 2024 End: December 01, 2024 EDGARDO Steele Referring Provider Active Star t: December 01, 2024 End: December 01, 2024 Team Status: Inactive Member Role Status Dates JESUS L[place] , GRADER OPERATOR-C Primary Care Provider Active Start: December 08, 2024 End: December 08, 2024 EDGARDO Steele Attending Provider Active Star t: December 08, 2024 End: December 08, 2024 EDGARDO Steele Referring Provider Active Star t: December 08, 2024 End: December 08, 2024 Team Status: Active Member Role Status Dates JESUS CARMENETLER , GRADER OPERATOR-C Primary Care Provider Active Start: December 08, 2024 Dr. Malcolm Torres MD Attending Provider Active S tart: December 08, 2024 Team Status: Inactive Member Role Status Dates JESUS CARMENETLER , GRADER OPERATOR-C Primary Care Provider Active Start: December 26, 2024 End: December 26, 2024 JESUS CALLAHAN , GRADER OPERATOR-C Referring Provider Active Start: December 26, 2024 End: December 26, 2024 Dr. Malcolm Torres MD Attending Provider Active S tart: December 26, 2024 End: December 26, 2024 Team Status: Inactive Member Role Status Dates JESUS CALLAHAN , GRADER OPERATOR-C Primary Care Provider Active Start: January 31, 2025 End: January 31, 2025 JESUS CARMENETLER , GRADER OPERATOR-C Referring Provider Active Start: January 31, 2025 End: January 31, 2025 Raegan Ledezma GRADER OPERATOR, GRADER OPERATOR-C Attending Provider Active Start: January 31, 2025 End: January 31, 2025 Team Status: Inactive Member Role Status Dates JESUS CARMENETLER , GRADER OPERATOR-C Primary Care Provider Active Start: February 27, 2025 End: February 27, 2025 Raegan Ledezma GRADER OPERATOR, GRADER OPERATOR-C Attending Provider Active Start: February 27, 2025 End: February 27, 2025 Raegan Ledezma GRADER OPERATOR, GRADER OPERATOR-C Referring Provider Active Start: February 27, 2025 End: February 27, 2025 Team Status: Inactive Member Role Status Dates JESUS CARMENETGORDO GRADER OPERATOR-C Primary Care Provider Active Start: March 02, 2025 End: March 02, 2025 Raegan Ledezma GRADER OPERATOR, GRADER OPERATOR-C Attending Provider Active Start: March 02, 2025 End: March 02, 2025 Raegan Ledezma GRADER OPERATOR, GRADER OPERATOR-C Referring Provider Active Start: March 02, 2025 End: March 02, 2025 Team Status: Active Member Role Status Dates JESUS CARMENETLER , GRADER OPERATOR-C Primary Care Provider Active Start: March 03, 2025 Raegan Ledezma GRADER OPERATOR, GRADER OPERATOR-C Referring Provider Active Start: March 03, 2025 Raegan Ledezma GRADER OPERATOR, GRADER OPERATOR-C Other Provider Active Start: March 03, 2025 Dr. Pierre Catalan DO Attending Provider Active S tart: March 03, 2025 Team Status: Inactive Member Role Status Dates JESUS CALLAHAN GRADER OPERATOR-C Primary Care Provider Active Start: March 14, 2025 End: March 14, 2025 JESUS CALLAHAN GRADER OPERATOR-C Referring Provider Active Start: March 14, 2025 End: March 14, 2025 Raegan Ledezma GRADER OPERATOR, GRADER OPERATOR-C Attending Provider Active Start: March 14, 2025 End: March 14, 2025 Team Status: Active Member Role Status Dates JESUS CALLAHAN GRADER OPERATOR-C Primary Care Provider Active Start: April 07, 2025 Raegan Ledezma GRADER OPERATOR, GRADER OPERATOR-C Attending Provider Active Start: April 07, 2025 Raegan Ledezma GRADER OPERATOR, GRADER OPERATOR-C Referring Provider Active Start: April 07, 2025 Team Status: Inactive Member Role Status Dates JESUS CALLAHAN GRADER OPERATOR-C Primary Care Provider Active Start: April 07, 2025 End: April 07, 2025 Dr. Stefan Shultz MD Emergency Provider Active Start: April 07, 2025 End: April 07, 2025 Team Status: Inactive Member Role Status Dates JESUS CALLAHAN GRADER OPERATOR-C Primary Care Provider Active Start: April 07, [...] Active Member Role Status Dates JESUS CALLAHAN GRADER OPERATOR-C Primary Care Provider Active Start: April 07, [...] Active Member Role Status Dates JESUS CALLAHAN [facility] Primary Care Provider Active Start: April [...] Active Member Role Status Dates JESUS CALLAHAN [facility] Primary Care Provider Active Start: April 10, 2025 Dr. Stefan Shultz MD Emergency Provider Active Start: April 10, 2025 Dr. Michelle Do MD Admit Provider Active St art: April 10, 2025 Dr. Mcihelle Do MD Other Provider Active St art: [...] Active Member Role Status Dates JESUS CALLAHAN [facility] Primary Care Provider Active Start: April [...] 2025 End: April 07, 2025 Raegan Ledezma GRADER OPERATOR, GRADER OPERATOR-C Attending Provider Active Start: April 07, 2025 End: April 07, 2025 Raegan Ledezma GRADER OPERATOR, GRADER OPERATOR-C Referring Provider Active Start: April 07, 2025 End: April 07, 2025 Team Status: Inactive Member Role Status Dates JESUS CALLAHAN NP-C Primary Care Provider Active Start: April 19, 2025 End: April 19, 2025 JESUS CALLAHAN NP-C Referring Provider Active Start: April 19, 2025 End: April 19, 2025 Raegan Ledezma GRADER OPERATOR, GRADER OPERATOR-C Attending Provider Active Start: April 19, 2025 [...] End: April 25, 2025 Raegan Ledezma NP, GRADER OPERATOR-C Attending Provider Active Start: April 25, 2025 End: April 25, 2025 Raegan Ledezma NP, GRADER OPERATOR-C Referring Provider Active Start: April 25, 2025 End: April 25, 2025 Team Status: Inactive Member Role Status Dates JESUS CALLAHAN NP-C Primary Care Provider Active Start: May 01, 2025 End: May 01, 2025 Dr. Ayden Bosch MD Attending Provider Active S tart: May 01, 2025 End: May 01, 2025 Raegan Ledezma GRADER OPERATOR, GRADER OPERATOR-C Referring Provider Active Start: May 01, 2025 End: May 01, 2025 Team Status: Active Member Role/Relationship Status Dates JESUS LONDON , GRADER OPERATOR-C Primary Care Provider Active Team Status: Inactive Member Role/Relationship Status Dates JESUS LONDON , GRADER OPERATOR-C Primary Care Provider Active Start: January 31, 2025 End: January 31, 2025 JESUS CALLAHAN , GRADER OPERATOR-C Referring Provider Active Start: January 31, 2025 End: January 31, 2025 Raegan Ledezma GRADER OPERATOR, GRADER OPERATOR-C Attending Provider Active Start: January 31, 2025 End: January 31, 2025 Team Status: Inactive Member Role/Relationship Status Dates JESUS CALLAHAN GRADER OPERATOR-C Primary Care Provider Active Start: February 27, 2025 End: February 27, 2025 Raegan Ledezma GRADER OPERATOR, GRADER OPERATOR-C Attending Provider Active Start: February 27, 2025 End: February 27, 2025 Raegan Ledezma GRADER OPERATOR, GRADER OPERATOR-C Referring Provider Active Start: February 27, 2025 End: February 27, 2025 Team Status: Inactive Member Role/Relationship Status Dates JESUS CALLAHAN , GRADER OPERATOR-C Primary Care Provider Active Start: March 02, 2025 End: March 02, 2025 Raegan Ledezma GRADER OPERATOR, GRADER OPERATOR-C Attending Provider Active Start: March 02, 2025 End: March 02, 2025 Raegan Ledezma GRADER OPERATOR, GRADER OPERATOR-C Referring Provider Active Start: March 02, 2025 End: March 02, 2025 Team Status: Active Member Role/Relationship Status Dates JESUS CALLAHAN GRADER OPERATOR-C Primary Care Provider Active Start: March 03, 2025 Raegan Ledezma GRADER OPERATOR, GRADER OPERATOR-C Referring Provider Active Start: March 03, 2025 Raegan Ledezma GRADER OPERATOR, GRADER OPERATOR-C Other Provider Active Start: March 03, 2025 Dr. Pierre Catalan DO Attending Provider Active S tart: March 03, 2025 Team Status: Inactive Member Role/Relationship Status Dates JESUS LNODON , GRADER OPERATOR-C Primary Care Provider Active Start: March 14, 2025 End: March 14, 2025 JESUS CALLAHAN , GRADER OPERATOR-C Referring Provider Active Start: March 14, 2025 End: March 14, 2025 Raegan Ledezma GRADER OPERATOR, GRADER OPERATOR-C Attending Provider Active Start: March 14, 2025 End: March 14, 2025 Team Status: Inactive Member Role/Relationship Status Dates FRIEDA KEARNEY Primary Care Provider Active Start: April 07, 2025 End: April 07, 2025 Raegan Ledezma GRADER OPERATOR GRADER OPERATOR-C Attending Provider Active Start: April 07, 2025 End: April 07, 2025 Raegan Ledezma GRADER OPERATOR, GRADER OPERATOR-C Referring Provider Active Start: April 07, 2025 [...] Member Role/Relationship Status Dates JESUS LONDON , GRADER OPERATOR-C Primary Care Provider Active Start: April 25, 2025 End: April 25, 2025 Raegan Ledezma GRADER OPERATOR, GRADER OPERATOR-C Attending Provider Active Start: April 25, 2025 End: April 25, 2025 Raegan Ledezma GRADER OPERATOR, GRADER OPERATOR-C Referring Provider Active Start: April 25, 2025 End: April 25, 2025 Team Status: Inactive Member Role/Relationship Status Dates JESUS LONDON , GRADER OPERATOR-C Primary Care Provider Active Start: May 01, 2025 End: May 01, 2025 Dr. Ayden Bosch MD Attending Provider Active S tart: May 01, 2025 End: May 01, 2025 Raegan Ledezma GRADER OPERATOR, GRADER OPERATOR-C Referring Provider Active Start: May 01, 2025 End: May 01, 2025 Team Status: Active Member Role/Relationship Status Dates JESUS LONDON , GRADER OPERATOR-C Primary Care Provider Active Start: May 01, 2025 Dr. Ayden Bosch MD Attending Provider Active S tart: May 01, 2025 Dr. Ayden Bosch MD Referring Provider Active S tart: May 01, 2025 Team Status: Inactive Member Role/Relationship Status Dates JESUS LONDON , GRADER OPERATOR-C Primary Care Provider Active Start: May 29, 2025 End: May 29, 2025 JESUS CALLAHAN , GRADER OPERATOR-C Referring Provider Active Start: May 29, 2025 End: May 29, 2025 Dr. Ayden Bosch MD Attending Provider Active S tart: May 29, 2025 End: May 29, 2025 Team Status: Inactive Member Role/Relationship Status Dates JESUS LONDON , GRADER OPERATOR-C Primary Care Provider Active Start: May 31, 2025 End: May 31, 2025 Dr. Ray Sanders MD Attending Provider Active Start: May 31, 2025 End: May 31, 2025 Dr. Ayden Bosch MD Referring Provider Active S tart: May 31, 2025 End: May 31, 2025 Team Status: Inactive Member Role/Relationship Status Dates JESUS LONDON , GRADER OPERATOR-C Primary Care Provider Active Start: February 27, 2025 End: February 27, 2025 Raegan Ledezma GRADER OPERATOR, GRADER OPERATOR-C Attending Provider Active Start: February 27, 2025 End: February 27, 2025 Raegan Ledezma GRADER OPERATOR, GRADER OPERATOR-C Referring Provider Active Start: February 27, 2025 End: February 27, 2025 Team Status: Inactive Member Role/Relationship Status Dates JESUS CALLAHAN , GRADER OPERATOR-C Primary Care Provider Active Start: March 02, 2025 End: March 02, 2025 Raegan Ledezma GRADER OPERATOR, GRADER OPERATOR-C Attending Provider Active Start: March 02, 2025 End: March 02, 2025 Raegan Ledezma GRADER OPERATOR, GRADER OPERATOR-C Referring Provider Active Start: March 02, 2025 End: March 02, 2025 Team Status: Active Member Role/Relationship Status Dates JESUS CARMENETLER , GRADER OPERATOR-C Primary Care Provider Active Start: March 03, 2025 Raegan Ledezma GRADER OPERATOR, GRADER OPERATOR-C Referring Provider Active Start: March 03, 2025 Raegan Ledezma GRADER OPERATOR, GRADER OPERATOR-C Other Provider Active Start: March 03, 2025 Dr. Pierre Catalan DO Attending Provider Active S tart: March 03, 2025 Team Status: Inactive Member Role/Relationship Status Dates JESUS LONDON , GRADER OPERATOR-C Primary Care Provider Active Start: March 14, 2025 End: March 14, 2025 JESUS CALLAHAN , GRADER OPERATOR-C Referring Provider Active Start: March 14, 2025 End: March 14, 2025 Raegan Ledezma GRADER OPERATOR, GRADER OPERATOR-C Attending Provider Active Start: March 14, 2025 End: March 14, 2025 Team Status: Inactive Member Role/Relationship Status Dates JESUS LONDON , GRADER OPERATOR-C Primary Care Provider Active Start: April 07, 2025 End: April 07, 2025 Raegan Ledezma GRADER OPERATOR, GRADER OPERATOR-C Attending Provider Active Start: April 07, 2025 End: April 07, 2025 Raegan Ledezma GRADER OPERATOR, GRADER OPERATOR-C Referring Provider Active Start: April 07, 2025 End: April 07, 2025 Team Status: Inactive Member Role/Relationship Status Dates JESUS LONDON , GRADER OPERATOR-C Primary Care Provider Active Start: April 07, [...] Active Member Role/Relationship Status Dates JESUS CALLAHAN GRADER OPERATOR-C Primary Care Provider Active Start: April 07, [...] Member Role/Relationship Status Dates JESUS CALLAHAN , GRADER OPERATOR-C Primary Care Provider Active Start: April 10, [...] Inactive Member Role/Relationship Status Dates JESUS CALLAHAN GRADER OPERATOR-C Primary Care Provider Active Start: April 19, 2025 End: April 19, 2025 JESUS CALLAHAN GRADER OPERATOR-C Referring Provider Active Start: April 19, 2025 End: April 19, 2025 Raegan Ledezma GRADER OPERATOR, GRADER OPERATOR-C Attending Provider Active Start: April 19, 2025 End: April 19, 2025 Team Status: Inactive Member Role/Relationship Status Dates JESUS CALLAHAN GRADER OPERATOR-C Primary Care Provider Active Start: April 25, 2025 End: April 25, 2025 Raegan Ledezma GRADER OPERATOR, GRADER OPERATOR-C Attending Provider Active Start: April 25, 2025 End: April 25, 2025 Raegan Ledezma GRADER OPERATOR, GRADER OPERATOR-C Referring Provider Active Start: April 25, 2025 End: April 25, 2025 Team Status: Inactive Member Role/Relationship Status Dates JESUS CALLAHAN GRADER OPERATOR-C Primary Care Provider Active Start: May 01, 2025 End: May 01, 2025 Dr. Ayden Bosch MD Attending Provider Active S tart: May 01, 2025 End: May 01, 2025 Raegan Ledezma GRADER OPERATOR, GRADER OPERATOR-C Referring Provider Active Start: May 01, 2025 End: May 01, 2025 Team Status: Active Member Role/Relationship Status Dates JESUS CALLAHAN , GRADER OPERATOR-C Primary Care Provider Active Start: May 01, 2025 Dr. Ayden Bosch MD Attending Provider Active S tart: May 01, 2025 Dr. Ayden Bosch MD Referring Provider Active S tart: May 01, 2025 Team Status: Inactive Member Role/Relationship Status Dates JESUS LONDON , GRADER OPERATOR-C Primary Care Provider Active Start: May 29, 2025 End: May 29, 2025 JESUS LONDON , GRADER OPERATOR-C Referring Provider Active Start: May 29, 2025 End: May 29, 2025 Dr. Ayden Bosch MD Attending Provider Active S tart: May 29, 2025 End: May 29, 2025 Team Status: Inactive Member Role/Relationship Status Dates JESUS LONDON , GRADER OPERATOR-C Primary Care Provider Active Start: May 31, 2025 End: May 31, 2025 Dr. Ray Sanders MD Attending Provider Active Start: May 31, 2025 End: May 31, 2025 Dr. Ayden Bosch MD Referring Provider Active S tart: May 31, 2025 End: May 31, 2025 Team Status: Inactive Member Role/Relationship Status Dates JESUS CARMENETLER , GRADER OPERATOR-C Primary Care Provider Active Start: June 05, 2025 End: June 05, 2025 Dr. Ray Sanders MD Attending Provider Active Start: June 05, 2025 End: June 05, 2025 Dr. Ray Sanders MD Referring Provider Active Start: June 05, 2025 End: June 05, 2025 Team Status: Active Member Role/Relationship Status Dates JESUS LONDON , GRADER OPERATOR-C Primary Care Provider Active Start: June 05, 2025 Dr. Ray Sanders MD Attending Provider Active Start: June 05, 2025 Dr. Ray Sanders MD Referring Provider Active Start: June 05, 2025 Dr. Ray Sanders MD Other Provider Active St art: June 05, 2025 Team Status: Inactive Member Role/Relationship Status Dates JESUS LONDON , GRADER OPERATOR-C Primary Care Provider Active Start: May 29, 2025 End: May 29, 2025 JESUS LONDON , GRADER OPERATOR-C Referring Provider Active Start: May 29, 2025 End: May 29, 2025 Dr. Ayden Bosch MD Attending Provider Active S tart: May 29, 2025 End: May 29, 2025 Team Status: Inactive Member Role/Relationship Status Dates JESUS LONDON , GRADER OPERATOR-C Primary Care Provider Active Start: May 31, 2025 End: May 31, 2025 Dr. Ray Sanders MD Attending Provider Active Start: May 31, 2025 End: May 31, 2025 Dr. Ayden Bosch MD Referring Provider Active S tart: May 31, 2025 End: May 31, 2025 Team Status: Inactive Member Role/Relationship Status Dates JESUS LONDON , GRADER OPERATOR-C Primary Care Provider Active Start: June 05, 2025 End: June 05, 2025 Dr. Ray Sanders MD Attending Provider Active Start: June 05, 2025 End: June 05, 2025 Dr. Ray Sanders MD Referring Provider Active Start: June 05, 2025 End: June 05, 2025 Team Status: Active Member Role/Relationship Status Dates JESUS LONDON , GRADER OPERATOR-C Primary Care Provider Active Start: June 05, 2025 Dr. Ray Sanders MD Attending Provider Active Start: June 05, 2025 Dr. Ray Sanders MD Referring Provider Active Start: June 05, 2025 Dr. Ray Sanders MD Other Provider Active St art: June 05, 2025 Team Status: Inactive Member Role/Relationship Status Dates JESUS LONDON , GRADER OPERATOR-C Primary Care Provider Active Start: June 12, 2025 End: June 12, 2025 JESUS LONDON , GRADER OPERATOR-C Referring Provider Active Start: June 12, 2025 End: June 12, 2025 Camille Emanuel GRADER OPERATOR, GRADER OPERATOR-C Attending Provider Active Start: June 12, 2025 End: June 12, 2025 Team Status: Inactive Member Role/Relationship Status Dates JESUS LONDON , GRADER OPERATOR-C Primary Care Provider Active Start: June 14, 2025 End: June 14, 2025 JESUS LONDON , GRADER OPERATOR-C Referring Provider Active Start: June 14, 2025 End: June 14, 2025 Dr. Ayden Bosch MD Attending Provider Active S tart: June 14, 2025 End: June 14, 2025 Team Status: Active Member Role/Relationship Status Dates JESUS LONDON , GRADER OPERATOR-C Primary Care Provider Active Start: June 14, 2025 Dr. Ayden Bosch MD Attending Provider Active S tart: June 14, 2025 Dr. Ayden Bosch MD Referring Provider Active S tart: June 14, 2025 Team Status: Inactive Member Role/Relationship Status Dates JESUS CALLAHAN GRADER OPERATOR-C Primary Care Provider Active Start: March 02, 2025 End: March 02, 2025 Raegan Ledezma GRADER OPERATOR, GRADER OPERATOR-C Attending Provider Active Start: March 02, 2025 End: March 02, 2025 Raegan Ledezma GRADER OPERATOR, GRADER OPERATOR-C Referring Provider Active Start: March 02, 2025 End: March 02, 2025 Team Status: Active Member Role/Relationship Status Dates JESUS CALLAHAN GRADER OPERATOR-C Primary Care Provider Active Start: March 03, 2025 Raegan Ledezma GRADER OPERATOR, GRADER OPERATOR-C Referring Provider Active Start: March 03, 2025 Raegan Ledezma GRADER OPERATOR, GRADER OPERATOR-C Other Provider Active Start: March 03, 2025 Dr. Pierre Catalan DO Attending Provider Active S tart: March 03, 2025 Team Status: Inactive Member Role/Relationship Status Dates JESUS LONDON , GRADER OPERATOR-C Primary Care Provider Active Start: March 14, 2025 End: March 14, 2025 JESUS CALLAHAN GRADER OPERATOR-C Referring Provider Active Start: March 14, 2025 End: March 14, 2025 Raegan Ledezma GRADER OPERATOR, GRADER OPERATOR-C Attending Provider Active Start: March 14, 2025 End: March 14, 2025 Team Status: Inactive Member Role/Relationship Status Dates JESUS BENAVIDEZLER , GRADER OPERATOR-C Primary Care Provider Active Start: April 07, 2025 End: April 07, 2025 Raegan Ledezma GRADER OPERATOR, GRADER OPERATOR-C Attending Provider Active Start: April 07, 2025 End: April 07, 2025 Raegan Ledezma GRADER OPERATOR, GRADER OPERATOR-C Referring Provider Active Start: April 07, 2025 End: April 07, 2025 Team Status: Inactive Member Role/Relationship Status Dates JESUS LONDON , GRADER OPERATOR-C Primary Care Provider Active Start: April 07, [...] Active Member Role/Relationship Status Dates JESUS CALLAHAN GRADER OPERATOR-C Primary Care Provider Active Start: April 07, [...] Active Member Role/Relationship Status Dates [facility] Provider Active Start: April [...] Member Role/Relationship Status Dates JESUS LONDON , GRADER OPERATOR-C Primary Care Provider Active Start: April 10, [...] Member Role/Relationship Status Dates JESUS CARMENETLER , GRADER OPERATOR-C Primary Care Provider Active Start: April 19, 2025 End: April 19, 2025 JESUS LONDON , GRADER OPERATOR-C Referring Provider Active Start: April 19, 2025 End: April 19, 2025 Raegan Ledezma GRADER OPERATOR, GRADER OPERATOR-C Attending Provider Active Start: April 19, 2025 End: April 19, 2025 Team Status: Inactive Member Role/Relationship Status Dates JESUS LONDON , GRADER OPERATOR-C Primary Care Provider Active Start: April 25, 2025 End: April 25, 2025 Raegan Ledezma GRADER OPERATOR, GRADER OPERATOR-C Attending Provider Active Start: April 25, 2025 End: April 25, 2025 Raegan Ledezma GRADER OPERATOR, GRADER OPERATOR-C Referring Provider Active Start: April 25, 2025 End: April 25, 2025 Team Status: Inactive Member Role/Relationship Status Dates JESUS CARMENETLER GRADER OPERATOR-C Primary Care Provider Active Start: May 01, 2025 End: May 01, 2025 Dr. Ayden Bosch MD Attending Provider Active S tart: May 01, 2025 End: May 01, 2025 Raegan Ledezma GRADER OPERATOR, GRADER OPERATOR-C Referring Provider Active Start: May 01, 2025 End: May 01, 2025 Team Status: Inactive Member Role/Relationship Status Dates JESUS LONDON , GRADER OPERATOR-C Primary Care Provider Active Start: May 29, 2025 End: May 29, 2025 JESUS LONDON , GRADER OPERATOR-C Referring Provider Active Start: May 29, 2025 End: May 29, 2025 Dr. Ayden Bosch MD Attending Provider Active S tart: May 29, 2025 End: May 29, 2025 Team Status: Inactive Member Role/Relationship Status Dates JESUS LONDON , GRADER OPERATOR-C Primary Care Provider Active Start: May 31, 2025 End: May 31, 2025 Dr. Ray Sanders MD Attending Provider Active Start: May 31, 2025 End: May 31, 2025 Dr. Ayden Bosch MD Referring Provider Active S tart: May 31, 2025 End: May 31, 2025 Team Status: Inactive Member Role/Relationship Status Dates JESUS LONDON , GRADER OPERATOR-C Primary Care Provider Active Start: June 05, 2025 End: June 05, 2025 Dr. Ray Sanders MD Attending Provider Active Start: June 05, 2025 End: June 05, 2025 Dr. Ray Sanders MD Referring Provider Active Start: June 05, 2025 End: June 05, 2025 Team Status: Active Member Role/Relationship Status Dates JESUS LONDON , GRADER OPERATOR-C Primary Care Provider Active Start: June 05, 2025 Dr. Ray Sanders MD Attending Provider Active Start: June 05, 2025 Dr. Ray Sanders MD Referring Provider Active Start: June 05, 2025 Dr. Ray Sanders MD Other Provider Active St art: June 05, 2025 Team Status: Inactive Member Role/Relationship Status Dates JESUS LONDON , GRADER OPERATOR-C Primary Care Provider Active Start: June 12, 2025 End: June 12, 2025 JESUS LONDON , GRADER OPERATOR-C Referring Provider Active Start: June 12, 2025 End: June 12, 2025 Camille Emanuel GRADER OPERATOR, GRADER OPERATOR-C Attending Provider Active Start: June 12, 2025 End: June 12, 2025 Team Status: Inactive Member Role/Relationship Status Dates JESUS LONDON , GRADER OPERATOR-C Primary Care Provider Active Start: June 14, 2025 End: June 14, 2025 JESUS LONDON , GRADER OPERATOR-C Referring Provider Active Start: June 14, 2025 End: June 14, 2025 Dr. Ayden Bosch MD Attending Provider Active S tart: June 14, 2025 End: June 14, 2025 Team Status: Active Member Role/Relationship Status Dates JESUS LONDON , GRADER OPERATOR-C Primary Care Provider Active Start: June 29, 2025 Dr. Ayden Bosch MD Attending Provider Active S tart: June 29, 2025 Dr. Ayden Bosch MD Referring Provider Active S tart: June 29, 2025 Team Status: Inactive Member Role/Relationship Status Dates JESUS LONDON , GRADER OPERATOR-C Primary Care Provider Active Start: June 29, 2025 End: June 29, 2025 JESUS LONDON , GRADER OPERATOR-C Referring Provider Active Start: June 29, 2025 End: June 29, 2025 Camille Emanuel GRADER OPERATOR, GRADER OPERATOR-C Attending Provider Active Start: June 29, 2025 End: June 29, 2025 Team Status: Inactive Member Role/Relationship Status Dates JESUS LONDON , GRADER OPERATOR-C Primary Care Provider Active Start: March 14, 2025 End: March 14, 2025 JESUS LONDON , GRADER OPERATOR-C Referring Provider Active Start: March 14, 2025 End: March 14, 2025 Reagan Ledezma GRADER OPERATOR, GRADER OPERATOR-C Attending Provider Active Start: March 14, 2025 End: March 14, 2025 Team Status: Inactive Member Role/Relationship Status Dates JESUS LONDON , GRADER OPERATOR-C Primary Care Provider Active Start: April 07, 2025 End: April 07, 2025 Raegan Ledezma GRADER OPERATOR, GRADER OPERATOR-C Attending Provider Active Start: April 07, 2025 End: April 07, 2025 Raegan Ledezma GRADER OPERATOR, GRADER OPERATOR-C Referring Provider Active Start: April 07, 2025 End: April 07, 2025 Team Status: Inactive Member Role/Relationship Status Dates JESUS LONDON , GRADER OPERATOR-C Primary Care Provider Active Start: April 07, [...] Provider Active Start: April 09, 2025 Dr. Mcihelle Do MD Admit Provider Active St art: [...] Member Role/Relationship Status Dates JESUS LONDON , GRADER OPERATOR-C Primary Care Provider Active Start: April 19, 2025 End: April 19, 2025 JESUS CALLAHAN , GRADER OPERATOR-C Referring Provider Active Start: April 19, 2025 End: April 19, 2025 Raegan Ledezma GRADER OPERATOR, GRADER OPERATOR-C Attending Provider Active Start: April 19, 2025 End: April 19, 2025 Team Status: Inactive Member Role/Relationship Status Dates JESUS CALLAHAN , GRADER OPERATOR-C Primary Care Provider Active Start: April 25, 2025 End: April 25, 2025 Raegan Ledezma GRADER OPERATOR, GRADER OPERATOR-C Attending Provider Active Start: April 25, 2025 End: April 25, 2025 Raegan Ledezma GRADER OPERATOR, GRADER OPERATOR-C Referring Provider Active Start: April 25, 2025 End: April 25, 2025 Team Status: Inactive Member Role/Relationship Status Dates JESUS LONDON , GRADER OPERATOR-C Primary Care Provider Active Start: May 01, 2025 End: May 01, 2025 Dr. Ayden Bosch MD Attending Provider Active S tart: May 01, 2025 End: May 01, 2025 Raegan Ledezma GRADER OPERATOR, GRADER OPERATOR-C Referring Provider Active Start: May 01, 2025 End: May 01, 2025 Team Status: Inactive Member Role/Relationship Status Dates JESUS LONDON , GRADER OPERATOR-C Primary Care Provider Active Start: May 29, 2025 End: May 29, 2025 JESUS LONDON , GRADER OPERATOR-C Referring Provider Active Start: May 29, 2025 End: May 29, 2025 Dr. Ayden Bosch MD Attending Provider Active S tart: May 29, 2025 End: May 29, 2025 Team Status: Inactive Member Role/Relationship Status Dates JESUS LONDON , GRADER OPERATOR-C Primary Care Provider Active Start: May 31, 2025 End: May 31, 2025 Dr. Ray Sanders MD Attending Provider Active Start: May 31, 2025 End: May 31, 2025 Dr. Ayden Bosch MD Referring Provider Active S tart: May 31, 2025 End: May 31, 2025 Team Status: Inactive Member Role/Relationship Status Dates JESUS LONDON , GRADER OPERATOR-C Primary Care Provider Active Start: June 05, 2025 End: June 05, 2025 Dr. Ray Sanders MD Attending Provider Active Start: June 05, 2025 End: June 05, 2025 Dr. Ray Sanders MD Referring Provider Active Start: June 05, 2025 End: June 05, 2025 Team Status: Active Member Role/Relationship Status Dates JESUS LONDON , GRADER OPERATOR-C Primary Care Provider Active Start: June 05, 2025 Dr. Ray Sanders MD Attending Provider Active Start: June 05, 2025 Dr. Ray Sanders MD Referring Provider Active Start: June 05, 2025 Dr. Ray Sanders MD Other Provider Active St art: June 05, 2025 Team Status: Inactive Member Role/Relationship Status Dates JESUS LONDON , GRADER OPERATOR-C Primary Care Provider Active Start: June 12, 2025 End: June 12, 2025 JESUS LONDON , GRADER OPERATOR-C Referring Provider Active Start: June 12, 2025 End: June 12, 2025 Camille Jenae GRADER OPERATOR, GRADER OPERATOR-C Attending Provider Active Start: June 12, 2025 End: June 12, 2025 Team Status: Inactive Member Role/Relationship Status Dates JESUS LONDON , GRADER OPERATOR-C Primary Care Provider Active Start: June 14, 2025 End: June 14, 2025 JESUS LONDON , GRADER OPERATOR-C Referring Provider Active Start: June 14, 2025 End: June 14, 2025 Dr. Ayden Bosch MD Attending Provider Active S tart: June 14, 2025 End: June 14, 2025 Team Status: Inactive Member Role/Relationship Status Dates JESUS LONDON , GRADER OPERATOR-C Primary Care Provider Active Start: June 29, 2025 End: June 29, 2025 JESUS LONDON , GRADER OPERATOR-C Referring Provider Active Start: June 29, 2025 End: June 29, 2025 Camille Emanuel GRADER OPERATOR, GRADER OPERATOR-C Attending Provider Active Start: June 29, 2025 End: June 29, 2025 Team Status: Active Member Role/Relationship Status Dates JESUS CALLAHAN , GRADER OPERATOR-C Primary Care Provider Active Start: July 05, 2025 Dr. Ayden Bosch MD Attending Provider Active S tart: July 05, 2025 Dr. Ayden Bosch MD Referring Provider Active S tart: July 05, 2025 Team Status: Inactive Member Role/Relationship Status Dates JESUS LONDON , GRADER OPERATOR-C Primary Care Provider Active Start: July 05, 2025 End: July 05, 2025 JESUS CALLAHAN , GRADER OPERATOR-C Referring Provider Active Start: July 05, 2025 End: July 05, 2025 Camille Emanuel GRADER OPERATOR, GRADER OPERATOR-C Attending Provider Active Start: July 05, 2025 End: July 05, 2025 Team Status: Inactive Member Role/Relationship Status Dates JESUS CALLAHAN , GRADER OPERATOR-C Primary Care Provider Active Start: April 07, 2025 End: April 07, 2025 Raegan Ledezma GRADER OPERATOR, GRADER OPERATOR-C Attending Provider Active Start: April 07, 2025 End: April 07, 2025 Raegan Ledezma GRADER OPERATOR, GRADER OPERATOR-C Referring Provider Active Start: April 07, 2025 End: April 07, 2025 Team Status: Inactive Member Role/Relationship Status Dates JESUS CARMENETLER , GRADER OPERATOR-C Primary Care Provider Active Start: April 07, [...] Member Role/Relationship Status Dates JESUS LONDON , GRADER OPERATOR-C Primary Care Provider Active Start: April 19, 2025 End: April 19, 2025 JESUS LONDON , GRADER OPERATOR-C Referring Provider Active Start: April 19, 2025 End: April 19, 2025 Raegan Ledezma GRADER OPERATOR, GRADER OPERATOR-C Attending Provider Active Start: April 19, 2025 End: April 19, 2025 Team Status: Inactive Member Role/Relationship Status Dates JESUS LONDON , GRADER OPERATOR-C Primary Care Provider Active Start: April 25, 2025 End: April 25, 2025 Raegan Ledezma GRADER OPERATOR, GRADER OPERATOR-C Attending Provider Active Start: April 25, 2025 End: April 25, 2025 Raegan Ledezma GRADER OPERATOR, GRADER OPERATOR-C Referring Provider Active Start: April 25, 2025 End: April 25, 2025 Team Status: Inactive Member Role/Relationship Status Dates JESUS LONDON , GRADER OPERATOR-C Primary Care Provider Active Start: May 01, 2025 End: May 01, 2025 Dr. Ayden Bosch MD Attending Provider Active S tart: May 01, 2025 End: May 01, 2025 Raegan Ledezma GRADER OPERATOR, GRADER OPERATOR-C Referring Provider Active Start: May 01, 2025 End: May 01, 2025 Team Status: Inactive Member Role/Relationship Status Dates JESUS LONDON , GRADER OPERATOR-C Primary Care Provider Active Start: May 29, 2025 End: May 29, 2025 JESUS LONDON , GRADER OPERATOR-C Referring Provider Active Start: May 29, 2025 End: May 29, 2025 Dr. Ayden Bosch MD Attending Provider Active S tart: May 29, 2025 End: May 29, 2025 Team Status: Inactive Member Role/Relationship Status Dates JESUS LONDON , GRADER OPERATOR-C Primary Care Provider Active Start: May 31, 2025 End: May 31, 2025 Dr. Ray Sanders MD Attending Provider Active Start: May 31, 2025 End: May 31, 2025 Dr. Ayden Bosch MD Referring Provider Active S tart: May 31, 2025 End: May 31, 2025 Team Status: Inactive Member Role/Relationship Status Dates JESUS LONDON , GRADER OPERATOR-C Primary Care Provider Active Start: June 05, 2025 End: June 05, 2025 Dr. Ray Sanders MD Attending Provider Active Start: June 05, 2025 End: June 05, 2025 Dr. Ray Sanders MD Referring Provider Active Start: June 05, 2025 End: June 05, 2025 Team Status: Active Member Role/Relationship Status Dates JESUS LONDON , GRADER OPERATOR-C Primary Care Provider Active Start: June 05, 2025 Dr. Ray Sanders MD Attending Provider Active Start: June 05, 2025 Dr. Ray Sanders MD Referring Provider Active Start: June 05, 2025 Dr. Ray Sanders MD Other Provider Active St art: June 05, 2025 Team Status: Inactive Member Role/Relationship Status Dates JESUS LONDON , GRADER OPERATOR-C Primary Care Provider Active Start: June 12, 2025 End: June 12, 2025 JESUS LONDON , GRADER OPERATOR-C Referring Provider Active Start: June 12, 2025 End: June 12, 2025 Camille Emanuel GRADER OPERATOR, GRADER OPERATOR-C Attending Provider Active Start: June 12, 2025 End: June 12, 2025 Team Status: Inactive Member Role/Relationship Status Dates JESUS LONDON , GRADER OPERATOR-C Primary Care Provider Active Start: June 14, 2025 End: June 14, 2025 JESUS LONDON , GRADER OPERATOR-C Referring Provider Active Start: June 14, 2025 End: June 14, 2025 Dr. Ayden Bosch MD Attending Provider Active S tart: June 14, 2025 End: June 14, 2025 Team Status: Inactive Member Role/Relationship Status Dates JESUS LONDON , GRADER OPERATOR-C Primary Care Provider Active Start: June 29, 2025 End: June 29, 2025 JESUS LONDON , GRADER OPERATOR-C Referring Provider Active Start: June 29, 2025 End: June 29, 2025 Camille Emanuel GRADER OPERATOR, GRADER OPERATOR-C Attending Provider Active Start: June 29, 2025 End: June 29, 2025 Team Status: Inactive Member Role/Relationship Status Dates JESUS LONDON , GRADER OPERATOR-C Primary Care Provider Active Start: July 05, 2025 End: July 05, 2025 JESUS LONDON , GRADER OPERATOR-C Referring Provider Active Start: July 05, 2025 End: July 05, 2025 Camille Emanuel GRADER OPERATOR, GRADER OPERATOR-C Attending Provider Active Start: July 05, 2025 End: July 05, 2025 Team Status: Inactive Member Role/Relationship Status Dates JESUS LONDON , GRADER OPERATOR-C Primary Care Provider Active Start: July 19, 2025 End: July 19, 2025 JESUS LONDON , GRADER OPERATOR-C Referring Provider Active Start: July 19, 2025 End: July 19, 2025 Camille Emanuel GRADER OPERATOR, GRADER OPERATOR-C Attending Provider Active Start: July 19, 2025 End: July 19, 2025 Team Status: Active Member Role/Relationship Status Dates JESUS LONDON , GRADER OPERATOR-C Primary Care Provider Active Start: July 19, 2025 Dr. Ayden Bosch MD Attending Provider Active S tart: July 19, 2025 Dr. Ayden Bosch MD Referring Provider Active S tart: July 19, 2025 Team Status: Active Member Role/Relationship Status Dates JESUS LONDON , GRADER OPERATOR-C Primary care physician Active Team Status: Inactive Member Role/Relationship Status Dates JESUS LONDON , GRADER OPERATOR-C Primary care physician Active Start: April 07, 2025 End: April 07, 2025 Raegan Ledezma GRADER OPERATOR, GRADER OPERATOR-C Attending physician Active Start: April 07, 2025 End: April 07, 2025 Raegan Ledezma GRADER OPERATOR, GRADER OPERATOR-C Referring Provider Active Start: April 07, 2025 End: April 07, 2025 Team Status: Inactive Member Role/Relationship Status Dates JESUS LONDON , GRADER OPERATOR-C Primary care physician Active Start: April 07, [...] Member Role/Relationship Status Dates JESUS LONDON , GRADER OPERATOR-C Primary care physician Active Start: April 07, [...] Member Role/Relationship Status Dates JESUS CALLAHAN , GRADER OPERATOR-C Primary care physician Active Start: April 08, [...] Member Role/Relationship Status Dates JESUS CALLAHAN , GRADER OPERATOR-C Primary care physician Active Start: April 08, [...] Member Role/Relationship Status Dates JESUS CALLAHAN , GRADER OPERATOR-C Primary care physician Active Start: April 09, [...] Active Member Role/Relationship Status Dates JESUS CALLAHAN GRADER OPERATOR-C Primary care physician Active Start: April 09, [...] Active Member Role/Relationship Status Dates JESUS CALLAHAN GRADER OPERATOR-C Primary care physician Active Start: April 10, [...] Member Role/Relationship Status Dates JESUS CALLAHAN , GRADER OPERATOR-C Primary care physician Active Start: April 10, [...] Member Role/Relationship Status Dates JESUS CALLAHAN , GRADER OPERATOR-C Primary care physician Active Start: April 19, 2025 End: April 19, 2025 JESUS CALLAHAN , GRADER OPERATOR-C Referring Provider Active Start: April 19, 2025 End: April 19, 2025 Raegan Ledezma GRADER OPERATOR, GRADER OPERATOR-C Attending physician Active Start: April 19, 2025 End: April 19, 2025 Team Status: Inactive Member Role/Relationship Status Dates JESUS CALLAHAN , GRADER OPERATOR-C Primary care physician Active Start: April 25, 2025 End: April 25, 2025 Raegan Ledezma GRADER OPERATOR, GRADER OPERATOR-C Attending physician Active Start: April 25, 2025 End: April 25, 2025 Raegan Ledezma GRADER OPERATOR, GRADER OPERATOR-C Referring Provider Active Start: April 25, 2025 End: April 25, 2025 Team Status: Inactive Member Role/Relationship Status Dates JESUS CALLAHAN GRADER OPERATOR-C Primary care physician Active Start: May 01, 2025 End: May 01, 2025 Dr. Ayden Bosch MD Attending physician Active Start: May 01, 2025 End: May 01, 2025 Raegan Ledezma GRADER OPERATOR, GRADER OPERATOR-C Referring Provider Active Start: May 01, 2025 End: May 01, 2025 Team Status: Inactive Member Role/Relationship Status Dates JESUS CALLAHAN GRADER OPERATOR-C Primary care physician Active Start: May 29, 2025 End: May 29, 2025 JESUS LONDON , GRADER OPERATOR-C Referring Provider Active Start: May 29, 2025 End: May 29, 2025 Dr. Ayden Bosch MD Attending physician Active Start: May 29, 2025 End: May 29, 2025 Team Status: Inactive Member Role/Relationship Status Dates JESUS LONDON , GRADER OPERATOR-C Primary care physician Active Start: May 31, 2025 End: May 31, 2025 Dr. Ray Sanders MD Attending physician Active Start: May 31, 2025 End: May 31, 2025 Dr. Ayden Bosch MD Referring Provider Active S tart: May 31, 2025 End: May 31, 2025 Team Status: Inactive Member Role/Relationship Status Dates JESUS LONDON , GRADER OPERATOR-C Primary care physician Active Start: June 05, 2025 End: June 05, 2025 Dr. Ray Sanders MD Attending physician Active Start: June 05, 2025 End: June 05, 2025 Dr. Ray Sanders MD Referring Provider Active Start: June 05, 2025 End: June 05, 2025 Team Status: Active Member Role/Relationship Status Dates JESUS LONDON , GRADER OPERATOR-C Primary care physician Active Start: June 05, 2025 Dr. Ray Sanders MD Attending physician Active Start: June 05, 2025 Dr. Ray Sanders MD Referring Provider Active Start: June 05, 2025 Dr. Ray Sanders MD Nurse Practitioner Active Start: June 05, 2025 Team Status: Inactive Member Role/Relationship Status Dates JESUS LONDON , GRADER OPERATOR-C Primary care physician Active Start: June 12, 2025 End: June 12, 2025 JESUS LONDON , GRADER OPERATOR-C Referring Provider Active Start: June 12, 2025 End: June 12, 2025 Camille Emanuel NP, GRADER OPERATOR-C Attending physician Active Start: June 12, 2025 End: June 12, 2025 Team Status: Inactive Member Role/Relationship Status Dates JESUS LONDON , GRADER OPERATOR-C Primary care physician Active Start: June 14, 2025 End: June 14, 2025 JESUS LONDON , GRADER OPERATOR-C Referring Provider Active Start: June 14, 2025 End: June 14, 2025 Dr. Ayden Bosch MD Attending physician Active Start: June 14, 2025 End: June 14, 2025 Team Status: Inactive Member Role/Relationship Status Dates JESUS LONDON , GRADER OPERATOR-C Primary care physician Active Start: June 29, 2025 End: June 29, 2025 JESUS LONDON , GRADER OPERATOR-C Referring Provider Active Start: June 29, 2025 End: June 29, 2025 Camille Emanuel NP, GRADER OPERATOR-C Attending physician Active Start: June 29, 2025 End: June 29, 2025 Team Status: Inactive Member Role/Relationship Status Dates JESUS CALLAHAN GRADER OPERATOR-C Primary care physician Active Start: July 05, 2025 End: July 05, 2025 JESUS CALLAHAN GRADER OPERATOR-C Referring Provider Active Start: July 05, 2025 End: July 05, 2025 Camille Emanuel NP, GRADER OPERATOR-C Attending physician Active Start: July 05, 2025 End: July 05, 2025 Team Status: Inactive Member Role/Relationship Status Dates JESUS CALLAHAN GRADER OPERATOR-C Primary care physician Active Start: July 19, 2025 End: July 19, 2025 JESUS CALLAHAN , GRADER OPERATOR-C Referring Provider Active Start: July 19, 2025 End: July 19, 2025 Camille Emanuel NP, GRADER OPERATOR-C Attending physician Active Start: July 19, 2025 End: July 19, 2025 Team Status: Active Member Role/Relationship Status Dates JESUS CALLAHAN GRADER OPERATOR-C Primary care physician Active Start: July 26, 2025 Dr. Ayden Bosch MD Attending physician Active Start: July 26, 2025 Dr. Ayden Bosch MD Referring Provider Active S tart: July 26, 2025 Team Status: Inactive Member Role/Relationship Status Dates JESUS CALLAHAN GRADER OPERATOR-C Primary care physician Active Start: July 26, 2025 End: July 26, 2025 JESUS CALLAHAN GRADER OPERATOR-C Referring Provider Active Start: July 26, 2025 [...] section and content) DATE CREATED AUTHOR 06/22/2024 [facility] ([place]) DATE CREATED AUTHOR AUTHOR'S ORGANIZ ATION 04/17/2025 [facility] DATE CREATED AUTHOR AUTHOR'S ORGANIZ ATION 05/17/2025 [facility] DATE CREATED AUTHOR AUTHOR'S LEELEE ATION 07/29/2025 [facility] FOR RECORDS PERTAINING TO PATIENTS WHO ARE [...] BE BASED ON THE PRIMARY CLINICAL RECORDS. [employer] provides no warranty or guarantee of the accuracy or completeness of information in this document.
--- NOTE | 2025-07-30 18:53 | CON.PCM.CA_ITS ---
Assessment & Plan Assessment/Plan (1) Atrial fibrillation with RVR: PLAN: Will keep the patient on amiodarone IV and add metoprolol as tolerated to bring his heart rate down. Check 2D echo tomorrow. Anticoagulation should also be considered. (2) Abnormal EKG: PLAN: Patient had Q waves and ST elevation in the anterior leads. She has chronic total occlusion of the LAD. The ST elevation is secondary to transmitted ischemia secondary to a combination of chronically occluded LAD and A-fib with RVR. With the improvement in heart rate patient's indigestion symptoms are also getting better. We will first control his heart rate and keep him on aspirin, statin, beta-dimitrios. He will also be needing anticoagulation for his A-fib. If patient continues to have chest pain despite maximal medical therapy for his CAD then further revascularization options could be considered. At this point it is reasonable to treat this medically. HPI Consult Data Date of Consult: 07/30/25 HPI Narrative Reason for Consultation: A-fib with RVR, ST elevation on the EKG, indigestion symptoms for about 2 d HPI Narrative: PATRICK ANDRES, is a 70 M who presents with symptoms of indigestion that have been going on for at least 2 days. He says that his symptoms started 2 nights ago and have not become worse or better and so he came to the emergency room. In the ER he was found to have A-fib with RVR. He also had ST elevation on the EKG along with anterior Q waves. The plan was to start the patient on amiodarone to see if we could bring down the heart rate and get another twelve-lead EKG. Patient's heart rate had come down to the 120s from about 150 on presentation. He was still having chest pain so he was brought emergently to the cardiac [employer]. He underwent coronary angiography which revealed 100% occlusion of the LAD which is a chronic total occlusion. Patient's heart rate continued to get better and along with that his indigestion symptoms also improved. Procedure was terminated and patient is being admitted to the CCU for further management. Patient also apparently has stage IV lung cancer for which she is getting palliative chemotherapy. [facility] Medical History Constipation Drug induced neutropenia Encounter for education Wears glasses Wears dentures Cancer Shortness of breath on exertion Leg cramps Blackout Hypertension History of echocardiogram Mediastinal lymphadenopathy BPH without urinary obstruction COPD (chronic obstructive pulmonary disease) Stenosis of right internal carotid artery Chronic alcohol abuse Hypokalemia Orthostatic hypotension Syncope and collapse Hyponatremia Vision loss of left eye Smoker Mass of left lung Hypertension Pulmonary nodules Nicotine dependence, cigarettes, uncomplicated Home Medications ?Medication ?Instructions ?Recorded ?Last Taken ?Type tamsulosin 0.4 mg capsule 0.4 mg PO QHS 12/29/2306/05 History albuterol sulfate 90 mcg/actuation 1 puff inhalation Q 4H PRN 12/09/24 06/04/25 History aerosol inhaler hydroxyzine HCl 50 mg tablet 50 mg PO QHS 12/26/24 History aspirin 81 mg tablet,delayed 81 mg PO DAILY 04/07/25 0 06/05/25 History release (Adult Low Dose Aspirin) glycopyrrolate 9 mcg-formoterol 2 puff inhalation Q12H 04/07/25 06/04/25 History 4.8 mcg HFA aerosol inhaler (Bevespi Aerosphere) polymyxin B sulfate 10,000 1 drp ophthalmic (eye) DANDRE Y 04/19/25 06/04/25 History unit-trimethoprim 1 mg/mL eye drops oxycodone 5 mg tablet 5 mg PO Q8H PRN pain 3 days #7 tabs 06/05/25 Unknown Rx Keytruda 200 mg IV Q21D #8 mL 5 Unknown Rx folic acid 1 mg tablet 1 mg PO QDAY #90 tabs Unknown Rx lidocaine-prilocaine 2.5 %-2.5 % 1 applic topical ONCE PRN port 06/12/25 Unknown Rx topical cream cream 30 days #30 grams ondansetron 8 mg disintegrating 8 mg PO Q8H PRN nausea and 06/12/25 Unknown Rx tablet vomiting #30 tabs atorvastatin 40 mg tablet 40 mg PO QDAY 06/29/25 Unkno wn History dexamethasone 4 mg tablet 4 mg PO .COMPLEX #24 tabs Unknown Rx Allergy/AdvReac Type Severity Reaction Status Date / Time hydrochlorothiazide AdvReac hyponatremi Verified 07/30/25 16:05 a Family History Father Cancer Mother Diabetes Surgical History History of lung biopsy History of colonoscopy H/O vasectomy Social History household members: family housing: house current occupational status: retired Smoking Status: Current every day smoker tobacco type: cigarettes alcohol intake: current alcohol intake frequency: 3 or more drinks per day Alcohol type: beer details: up to 12 beers daily substance use type: does not use caffeine: Yes Physical Exam Const alert and oriented x3 HEENT normocephalic Eyes no scleral icterus Resp normal respiratory effort Cardio Cardio Narrative: Irregular rhythm Charges/Coding Visit Charges Inpatient E&M: 32314 Init Hosp L2 Objective Data Vital Signs: Vital Signs Temp Pulse Resp BP Pulse Ox O2 Del Method 97.9 F 109 H 19 H 102/90 H 94 Room Air 07/30/25 18:03 07/30/25 18:03 07/30/25 18:03 07/30/25 18:03 07/30/25 18:03 07/30/25 16:55 Oxygen Delivery Method Room Air Weight: 109 lb 3.2 oz Body Mass Index (BMI) 18.7 Intake & Output: Intake and Output for Last 24 Hours 07/28/25 07/29/25 07/30/25 23:59 23:59 23:59 Intake Total 106 / 106 Balance 106 / 106 Lab / Micro Data 07/30/25 17:05 07/30/25 17:05 Labs: Laboratory Results - last 24 hr 07/30/25 17:05: WBC 81.7 H*, RBC 3.48 L, Hgb 11.4 L, Hct 31.2 L, MCV 89.7, MCH 32.8 H, MCHC 36.5 H, RDW Std Deviation 50.3 H, RDW Coeff of [place] 15.5 H, Plt Count 240, MPV 9.4, Neut % (Auto) Not Reportable, Absolute Neuts (auto) 73.5 H, Absolute Lymphs (auto) 2.45, Total Counted 100, Neutrophils % (Manual) 90 H, Band Neutrophils % 2, Lymphocytes % (Manual) 3 L, Monocytes % (Manual) 1, M etamyelocytes % 4 H, Diff Path Review May foll, Platelet Estimate ADEQUATE, RBC Morphology NORM C+C, PT 15.4 H, INR 1.2, APTT 40.4 H, Sodium 127 L, Potassium 3.5, Chloride 92 L, Carbon Dioxide 22.8, Anion Gap 13, BUN 13, Creatinine 0.72, Estim Creat Clear Calc 60.20, Est GFR (MDRD) Non-Af 98, BUN/Creatinine Ratio 17.7, Glucose 137 H, Calcium 8.7, Magnesium 1.8, Total Bilirubin 0.54, Direct Bilirubin 0.28, AST 56 H, ALT 27, Alkaline Phosphatase 233 H, Troponin T High Sens 185 H*, NT pro BNP II 5135 H, Total Protein 6.1, Albumin 3.3 L, Globulin 2.8 Rhythm Strip Rhythm Strip: A-fib Rate: 149 Ectopy: None Cardiology Labs/Tests 07/30/25 17:05: WBC 81.7 H*, RBC 3.48 L, Hgb 11.4 L, Hct 31.2 L, MCV 89.7, MCH 32.8 H, MCHC 36.5 H, Plt Count 240, MPV 9.4, Neut % (Auto) Not Reportable, A bsolute Neuts (auto) 73.5 H, Total Counted 100, Neutrophils % (Manual) 90 H, Band Neutrophils % 2, Lymphocytes % (Manual) 3 L, Monocytes % (Manual) 1, M etamyelocytes % 4 H, PT 15.4 H, INR 1.2, APTT 40.4 H, Sodium 127 L, Potassium 3.5, Chloride 92 L, Carbon Dioxide 22.8, Anion Gap 13, BUN 13, Creatinine 0.72, Est GFR (MDRD) Non-Af 98, BUN/Creatinine Ratio 17.7, Glucose 137 H, Calcium 8.7, Magnesium 1.8, Total Bilirubin 0.54, Direct Bilirubin 0.28 Rhythm: EKG: ECHO: Stress Test: Cardiac Cath: PCI: CT Surgery: Holter monitor: EPS: PPM: CXR: Chest CT Scan: Radiography Diagnostic Testing: Radiology Impression Chest X-Ray 07/30/25 17:12 IMPRESSION: No interval change Reading [facility] Risk Score for UA/STEMI Assesmment (YES = 1) Risk Stratification Applicable: No
--- NOTE | 2025-07-30 19:13 | CL.I_ITS ---
Patient Name: PATRICK ANDRES Study Date: 07/30/2025 Performing: Giovanna Good MD Ht: 64 inches 162.56 cm : 1955 Wt: 109.3 lbs 49.53 kg Age: 70 Gender: male BSA: 1.51 PROCEDURE(S) PERFORMED [id number])[facility] CLINICAL PROFILE AND CO-MORBIDITIES Indications: Anginal symptoms with ST elevation in anterior leads Heart Failure: None CONCLUSIONS CAD as described with chronically occluded LAD. RECOMMENDATIONS Medical treatment for A-fib with RVR and coronary artery disease DESCRIPTION OF PROCEDURE The patient arrived to the procedure lab. The risks and benefits of the procedure as well as a full description of our services here and lack of surgical backup were fully explained to the patient and/or their significant other prior to the catheterization. The Timeout was completed, verifying the correct patient and procedure. The patient's procedural site was prepped and draped in the usual fashion. Local anesthetic was given subcutaneously to right radial region with Lidocaine 2%. Using a modified Seldinger technique, arterial access was obtained via the right radial artery, a 6Fr sheath was inserted.. Left Coronary Artery selective angiography was performed in multiple views using a 5 Fr. JL3.5 catheter. Right Coronary Artery selective angiography was then performed in multiple views using a 5 Fr. JR 4 catheterThe images were reviewed and options discussed. A decision was then made to proceed with an Intervention, IVUS or other adjunct procedure. XB 3 Guide catheter was inserted and engaged into the LCA. BMW Guide wire was advanced to the LAD. The arterial sheath was pulled and a TR Band was applied for hemostasis. 10cc of air CORONARY ANGIOGRAPHY DOMINANCE: Right Dominant LEFT MAIN: 30% distal stenosis LEFT ANTERIOR DESCENDING ARTERY: PROX LAD: Occluded in the proximal portion with collateral filling of the mid LAD followed by an area of occlusion in the mid to distal LAD and again collateral filling of the apical portion of the LAD.This is a chronic total occlusion. We attempted to cross it briefly with the BMW wire and were unsuccessful. CIRCUMFLEX ARTERY: Mild to moderate diffuse disease RIGHT CORONARY ARTERY: Mild to moderate diffuse disease INTERVENTION INFORMATION LESION SITE: LAD (Proximal) Lesion Devices: Cordis 6 Fr XB3.0 100cm Guide Catheter Mckeon .014 190cm BMW [place] Straight COMPLICATIONS No Complications PROCEDURE MEDICATIONS Oxygen: 2 L/min via nasal cannula Amiodarone 360mg / 200ml D5W @ 1 mg/min IV started in ER @ 07/30/2025 18:28:18 Heparin given IA 07/30/2025 18:16:42 Verapamil 2.5mg, Ntg 100mcgs, 3000 units of Heparin given IA 07/30/2025 18:16:42 SUMMARY OF HEMODYNAMIC DATA Time AIR REST ECG 18:04:26 ECG 18:07:16 AO 94/22 (69) SA 18:18:34 AO 75/52 (63) 18:19:51 AO 82/54 (68) 18:25:24 Signed By Giovanna Good MD On 07/30/2025 19:12:36 Giovanna Good MD
--- NOTE | 2025-07-30 19:16 | ECHOCS_ITS ---
Reason For Study Reason For Study: S/P ME Procedure This was a 2D Doppler, Color Flow transthoracic echocardiogram. The study was technically difficult. Contrast injection was performed. Exam performed portable in ICU/CCU. Left Ventricle Normal LV size. Severe segmental systolic dysfunction (see wall motion). The left ventricular ejection fraction is 20 %. Fiatt : Akinetic. Mid-Anterior : Akinetic. Mid-anteroseptal : Akinetic. Lateral- Basal: Normal. Infero-Basal: Normal. Anterio-Basal: Normal. The rest of the wall segments are hypokinetic. Right Ventricle Normal RV size. Normal systolic function. Atria Normal left atrium. Normal right atrium. Mitral Valve Normal mitral valve. Mild (1+) eccentric mitral valve insufficiency. Tricuspid Valve Normal tricuspid valve. Aortic Valve Trisinus/trileaflet aortic valve. Pulmonic Valve Normal pulmonic valve. Great Vessels Normal aortic root. The pulmonary artery is normal size. Inferior vena cava collapse with sniff. Pericardium/Pleural No pericardial effusion. Medication Diluted definity 1.5ml given slow IV push to enhance endocardial definition. MMode/2D Measurements & Calculations LVIDd: 5.3 cm IVSd: 0.91 cm LVOT diam: 2.0 cm LVIDs: 3.8 cm LVPWd: 0.95 cm RVDd: 2.7 cm FS: 27.9 % LVOT area: 3.0 cm2 LAV(MOD-bp): 46.3 ml LVAd ap4: 40.9 cm2 SV(MOD-sp4): 31.7 ml LAV(MOD-bp) Indexed: 30.7 ml/m2 LVLd ap4: 8.7 cm SI(MOD-sp4): 21.0 ml/m2 LAV(MOD-sp2): 54.6 ml EDV(MOD-sp4): 158.6 ml LAV(MOD-sp4): 39.0 ml EDV(sp4-el): 163.1 ml LVAs ap4: 36.4 cm2 LVLs ap4: 8.4 cm ESV(MOD-sp4): 126.9 ml ESV(sp4-el): 133.2 ml EF(MOD-sp4): 20.0 % EF(sp4-el): 18.3 % SV(sp4-el): 29.8 ml LA A4 area: 15.7 cm2 LA dimension(2D): 4.3 cm RA A4 area: 15.1 cm2 Doppler Measurements & Calculations MV E max magda: 90.5 cm/sec Ao V2 max: 93.9 cm/sec LV V1 max: 89.5 cm/sec Ao max P.6 mmHg LV V1 max P.3 mmHg Ao V2 mean: 63.7 cm/sec LV V1 mean P.8 mmHg Ao mean P.9 mmHg LV V1 mean: 63.3 cm/sec Ao V2 VTI: 13.8 cm LV V1 VTI: 11.9 cm AV (velocity ratio): 0.86 NICOLE(I,D): 2.6 cm2 NICOLE(V,D): 2.9 cm2 SV(LVOT): 35.9 ml PA V2 max: 72.2 cm/sec PA V2 mean: 56.8 cm/sec ECHO/Echo Complete W/ Contrast Interpretation Summary Normal LV size. Severe segmental systolic dysfunction (see wall motion). The left ventricular ejection fraction is 20 %. Mild (1+) eccentric mitral valve insufficiency. Contrast injection was performed. Ordering Physician: Goldy Tovar Referring Physician: Nahomy Good Performed By: Moira Escudero RCS
[2025-07-30] MEDS: 0.9% Normal Saline (1000mL) 1,000 ML 75 ML IV (20:03)
[2025-07-30] MEDS: HEPARIN/D5w 25,000 UNITS 25,000 UNITS/250 ML IV.SOLN. 7.4 UNITS CONT INF (20:14)
[2025-07-30] MEDS: hydrOXYzine PAM 25 MG Capsule 50 MG PO (21:49)
[2025-07-30] MEDS: 0.9% Normal Saline (500mL Bag) 500 ML 999 ML IV (22:55)
[2025-07-31] VITALS (36 sets, daily range): BP systolic 71–115; BP diastolic 50–87; PULSE 60–134; RESP 16–27; TEMP 36.6–36.7; O2SAT 87–100; BMI 20.3
[2025-07-31] MEDS: 0.9% Normal Saline (1000mL) 1,000 ML 75 ML IV ×2 (02:09→15:27)
[2025-07-31] MEDS: 0.9% Saline Lock 10 ML Syringe IV ×2 (02:19→04:17)
[2025-07-31 02:43] LABS: Partial Thromboplast Time 73.0 Seconds (24.1-36.2)
[2025-07-31 04:39] LABS: Hematocrit 28.4 % (40-54); Hemoglobin 10.3 g/dL (13.0-16.5); Immature Granulocytes Count 0.900 X10^3/uL (0.0-0.0); Mean Corp Hgb Conc 36.3 g/dL (32-36); Mean Corpuscular Volume 89.6 fL (80-94); Mean Platelet Vol. 10.0 fl (6.2-12.0); NRBC Flagged by Analyzer 0 % (0-5); POSITIVE COUNT YES; POSITIVE DIFFERENTIAL YES; POSITIVE MORPHOLOGY YES; Platelet Count 199 K/mm3 (150-450); RBC Distribution Width CV 15.4 % (11.6-14.6); RBC Distribution Width SD 49.9 fl (35.1-43.9); Red Blood Count 3.17 M/mm3 (4.6-6.2)
[2025-07-31 04:42] LABS: Differential Indicated SCAN CRITERIA MET; White Blood Count 60.0 K/mm3 (4.4-11.0)
[2025-07-31 05:14] LABS: Dohle Bodies 2+
[2025-07-31 05:15] LABS: Red Cell Morphology NORM C+C NORMAL (NORM C&C)
[2025-07-31 05:23] LABS: AST(SGOT) 49 U/L (<=37); Alanine Aminotransfer ALT/SGPT 26 U/L (<=46); Albumin, Serum 2.8 g/dL (3.4-4.8); Alkaline Phosphatase 205 U/L (40-129); Anion Gap 9 (5-15); BUN 11 mg/dL (4-19); BUN/Creat Ratio 21.5 RATIO (10-20); Bilirubin, Direct 0.64 mg/dL (0.00-0.30); Calcium,Total 8.1 mg/dL (7.6-11.0); Carbon Dioxide 23.1 mmol/L (21.0-32.0); Chloride 99 mmol/L (98-108); Cholesterol 94 mg/dL (<=200); Estimated Creatinine Clearance 62.83 ml/min (50-250); Globulin 2.5 g/dL (2.2-4.2); Glucose 97 mg/dL (70-99); Low Density Lipoprotein Calc. 21 mg/dL; Magnesium 1.7 mg/dL (1.5-2.2); Potassium 3.4 mmol/L (3.3-5.1); Triglycerides 54 mg/dL; Very Low Density Lipoprotein 11 mg/dL (5-40); cholesterol:hdl ratio screen 1.51
--- NOTE | 2025-07-31 06:35 | PCM.PN.CARD ---
Subjective Subjective Patient seen and evaluated. Doing well. No cardiac complaints at this time no chest pain. Objective Data Vital Signs: Vital Signs Temp Pulse Resp BP Pulse Ox O2 Del Method O2 Flow Rate 98.6 F 117 H 20 H 101/63 98 Room Air 2.5 07/30/25 20:00 07/31/25 05:00 07/31/25 05:00 07/31/25 05:00 07/31/25 05:00 07/31/25 05:00 07/30/25 19:52 Oxygen Flow Rate (L/min) 2.5 Oxygen Delivery Method Room Air Weight: 114 lb 13.773 oz Body Mass Index (BMI) 20.3 Intake & Output: Intake and Output for Last 24 Hours 07/29/25 07/30/25 07/31/25 23:59 23:59 23:59 Intake Total 1166.46 / 1206.46 497.5 / 497.5 Output Total 200 / 350 1150 / 1150 Balance 966.46 / 856.46 -652.5 / -652.5 Lab / Micro Data 07/31/25 04:15 07/31/25 04:15 Labs: Laboratory Results - last 24 hr 07/30/25 17:05: WBC 81.7 H*, RBC 3.48 L, Hgb 11.4 L, Hct 31.2 L, MCV 89.7, MCH 32.8 H, MCHC 36.5 H, RDW Std Deviation 50.3 H, RDW Coeff of [place] 15.5 H, Plt Count 240, MPV 9.4, Neut % (Auto) Not Reportable, Absolute Neuts (auto) 73.5 H, Absolute Lymphs (auto) 2.45, Total Counted 100, Neutrophils % (Manual) 90 H, Band Neutrophils % 2, Lymphocytes % (Manual) 3 L, Monocytes % (Manual) 1, Metamyelocytes % 4 H, Diff Path Review May , Platelet Estimate ADEQUATE, RBC Morphology NORM C+C, PT 15.4 H, INR 1.2, APTT 40.4 H, Sodium 127 L, Potassium 3.5, Chloride 92 L, Carbon Dioxide 22.8, Anion Gap 13, BUN 13, Creatinine 0.72, Estim Creat Clear Calc 60.20, Est GFR (MDRD) Non-Af 98, BUN/Creatinine Ratio 17.7, Glucose 137 H, Calcium 8.7, Magnesium 1.8, Total Bilirubin 0.54, Direct Bilirubin 0.28, AST 56 H, ALT 27, Alkaline Phosphatase 233 H, Troponin T High Sens 185 H*, NT pro BNP II 5135 H, Total Protein 6.1, Albumin 3.3 L, Globulin 2.8 07/31/25 02:15: APTT 73.0 H 07/31/25 04:15: WBC 60.0 H*, RBC 3.17 L, Hgb 10.3 L, Hct 28.4 L, MCV 89.6, MCH 32.5 H, MCHC 36.3 H, RDW Std Deviation 49.9 H, RDW Coeff of [place] 15.4 H, Plt Count 199, MPV 10.0, Immature Gran % (Auto) 1.500 H, Neut % (Auto) 92.1 H, Lymph % (Auto) 2.6 L, [place] % (Auto) 3.6, Eos % (Auto) 0.2, Baso % (Auto) 0.0, Absolute Neuts (auto) 55.2 H, Absolute Lymphs (auto) 1.55, Nucleated RBC % 0, Differential Comment , Dohle Bodies 2+, Platelet Estimate ADEQUATE, RBC Morphology NORM C+C, Sodium 131 L, Potassium 3.4, Chloride 99, Carbon Dioxide 23.1, Anion Gap 9, BUN 11, Creatinine 0.50 L, Estim Creat Clear Calc 62.83, Est GFR (MDRD) Non-Af 110, BUN/Creatinine Ratio 21.5 H, Glucose 97, Calcium 8.1, Phosphorus 2.8, Magnesium 1.7, Total Bilirubin 1.22, Direct Bilirubin 0.64 H, AST 49 H, ALT 26, Alkaline Phosphatase 205 H, Total Protein 5.3 L, Albumin 2.8 L, Globulin 2.5, Triglycerides 54, Cholesterol 94, LDL Cholesterol, Calc 21, VLDL Cholesterol 11, HDL Cholesterol 63, Cholesterol/HDL Ratio 1.51 Rhythm Strip Rhythm Strip: A-fib Rate: 149 Ectopy: None Cardiology Labs/Tests 07/30/25 17:05: WBC 81.7 H*, RBC 3.48 L, Hgb 11.4 L, Hct 31.2 L, MCV 89.7, MCH 32.8 H, MCHC 36.5 H, Plt Count 240, MPV 9.4, Neut % (Auto) Not Reportable, Absolute Neuts (auto) 73.5 H, Total Counted 100, Neutrophils % (Manual) 90 H, Band Neutrophils % 2, Lymphocytes % (Manual) 3 L, Monocytes % (Manual) 1, Metamyelocytes % 4 H, PT 15.4 H, INR 1.2, APTT 40.4 H, Sodium 127 L, Potassium 3.5, Chloride 92 L, Carbon Dioxide 22.8, Anion Gap 13, BUN 13, Creatinine 0.72, Est GFR (MDRD) Non-Af 98, BUN/Creatinine Ratio 17.7, Glucose 137 H, Calcium 8.7, Magnesium 1.8, Total Bilirubin 0.54, Direct Bilirubin 0.28 07/31/25 02:15: APTT 73.0 H 07/31/25 04:15: WBC 60.0 H*, RBC 3.17 L, Hgb 10.3 L, Hct 28.4 L, MCV 89.6, MCH 32.5 H, MCHC 36.3 H, Plt Count 199, MPV 10.0, Immature Gran % (Auto) 1.500 H, Neut % (Auto) 92.1 H, Lymph % (Auto) 2.6 L, [place] % (Auto) 3.6, Eos % (Auto) 0.2, Baso % (Auto) 0.0, Absolute Neuts (auto) 55.2 H, Nucleated RBC % 0, Sodium 131 L, Potassium 3.4, Chloride 99, Carbon Dioxide 23.1, Anion Gap 9, BUN 11, Creatinine 0.50 L, Est GFR (MDRD) Non-Af 110, BUN/Creatinine Ratio 21.5 H, Glucose 97, Calcium 8.1, Phosphorus 2.8, Magnesium 1.7, Total Bilirubin 1.22, Direct Bilirubin 0.64 H, Triglycerides 54, Cholesterol 94, VLDL Cholesterol 11, HDL Cholesterol 63, Cholesterol/HDL Ratio 1.51 Rhythm: EKG: ECHO: Stress Test: Cardiac Cath: PCI: CT Surgery: Holter monitor: EPS: PPM: CXR: Chest CT Scan: Radiography Diagnostic Testing: Radiology Impression Chest X-Ray 07/30/25 17:12 IMPRESSION: No interval change [facility] Exam Const alert, oriented x3 and no apparent distress General Appearance: cooperative HEENT hearing grossly normal bilaterally Head and Scalp: atraumatic Eyes EOMs intact bilaterally Neck General: normal visual inspection Chest inspection of chest normal and palpation of chest normal Resp normal respiratory effort Auscultation: clear to auscultation bilaterally Cardio S1 normal heart sound and S2 normal heart sound Jugular Venous Distention: JVD Palpation: abnormal PMI Rhythm: abnormal rhythm irregularly irregular GI normal to inspection, nondistended, normoactive bowel sounds Extremity normal capillary refill and no pedal edema Peripheral Pulses: Yes pulses 2+ throughout and femoral pulses present Skin no rashes or lesions noted Neuro oriented x3 and CN's II-XII intact bilaterally Psych Appearance: grossly normal and appropriate Assessment & Plan Assessment/Plan (1) Abnormal EKG: PLAN: Patient presents with chest pain and abnormal EKG to the emergency room. There was ST elevation noted in leads which were already cued out. This suggest that there was previous infarct and likely EKG changes from the atrial fibrillation. Patient underwent cardiac catheterization with demonstrated totally occluded left anterior descending artery confirming the EKG findings, circumflex artery with moderate disease, mild distal left main disease, and diffuse right coronary artery mild disease. Medical management was instituted. Plan to be to obtain an echocardiogram today Start beta-dimitrios Continue statin Continue aspirin (2) Atrial fibrillation with RVR: PLAN: Patient presented with atrial fibrillation with a rapid ventricular response rate new onset. Currently on intravenous amiodarone which will be continued and then switched over to oral amiodarone Beta-dimitrios instituted Echocardiogram pending Will start anticoagulation with Eliquis 5 mg twice a day (3) LV dysfunction: PLAN: Patient has evidence of left ventricular systolic dysfunction with wall motion abnormalities previously present. Will continue with guideline directed medical therapy.
--- NOTE | 2025-07-31 06:58 | PCM.PN.HOSP ---
Reason for Visit Chief Complaint: Chest discomfort Subjective Subjective No further chest pain. No palpitations. Objective Data Objective Data Vital Signs: Vital Signs Temp Pulse Resp BP Pulse Ox O2 Del Method O2 Flow Rate 37.0 C 116 H 21 H 107/63 97 Room Air 2.5 07/30/25 20:00 07/31/25 06:00 07/31/25 06:00 07/31/25 06:00 07/31/25 06:00 07/31/25 06:00 07/30/25 19:52 Oxygen Flow Rate (L/min) 2.5 Oxygen Delivery Method Room Air Weight: 52.1 kg Body Mass Index (BMI) 20.3 Intake & Output: Intake and Output for Last 24 Hours 07/29/25 07/30/25 07/31/25 23:59 23:59 23:59 Intake Total 1166.46 / 1206.46 575.32 / 575.32 Output Total 200 / 350 1450 / 1450 Balance 966.46 / 856.46 -874.68 / -874.68 Lab / Micro Data 07/31/25 04:15 07/31/25 04:15 Labs: Laboratory Results - last 24 hr 07/30/25 17:05: WBC 81.7 H*, RBC 3.48 L, Hgb 11.4 L, Hct 31.2 L, MCV 89.7, MCH 32.8 H, MCHC 36.5 H, RDW Std Deviation 50.3 H, RDW Coeff of [place] 15.5 H, Plt Count 240, MPV 9.4, Neut % (Auto) Not Reportable, Absolute Neuts (auto) 73.5 H, Absolute Lymphs (auto) 2.45, Total Counted 100, Neutrophils % (Manual) 90 H, Band Neutrophils % 2, Lymphocytes % (Manual) 3 L, Monocytes % (Manual) 1, Metamyelocytes % 4 H, Diff Path Review May , Platelet Estimate ADEQUATE, RBC Morphology NORM C+C, PT 15.4 H, INR 1.2, APTT 40.4 H, Sodium 127 L, Potassium 3.5, Chloride 92 L, Carbon Dioxide 22.8, Anion Gap 13, BUN 13, Creatinine 0.72, Estim Creat Clear Calc 60.20, Est GFR (MDRD) Non-Af 98, BUN/Creatinine Ratio 17.7, Glucose 137 H, Calcium 8.7, Magnesium 1.8, Total Bilirubin 0.54, Direct Bilirubin 0.28, AST 56 H, ALT 27, Alkaline Phosphatase 233 H, Troponin T High Sens 185 H*, NT pro BNP II 5135 H, Total Protein 6.1, Albumin 3.3 L, Globulin 2.8 07/31/25 02:15: APTT 73.0 H 07/31/25 04:15: WBC 60.0 H*, RBC 3.17 L, Hgb 10.3 L, Hct 28.4 L, MCV 89.6, MCH 32.5 H, MCHC 36.3 H, RDW Std Deviation 49.9 H, RDW Coeff of [place] 15.4 H, Plt Count 199, MPV 10.0, Immature Gran % (Auto) 1.500 H, Neut % (Auto) 92.1 H, Lymph % (Auto) 2.6 L, [place] % (Auto) 3.6, Eos % (Auto) 0.2, Baso % (Auto) 0.0, Absolute Neuts (auto) 55.2 H, Absolute Lymphs (auto) 1.55, Nucleated RBC % 0, Differential Comment , Dohle Bodies 2+, Platelet Estimate ADEQUATE, RBC Morphology NORM C+C, Sodium 131 L, Potassium 3.4, Chloride 99, Carbon Dioxide 23.1, Anion Gap 9, BUN 11, Creatinine 0.50 L, Estim Creat Clear Calc 62.83, Est GFR (MDRD) Non-Af 110, BUN/Creatinine Ratio 21.5 H, Glucose 97, Calcium 8.1, Phosphorus 2.8, Magnesium 1.7, Total Bilirubin 1.22, Direct Bilirubin 0.64 H, AST 49 H, ALT 26, Alkaline Phosphatase 205 H, Total Protein 5.3 L, Albumin 2.8 L, Globulin 2.5, Triglycerides 54, Cholesterol 94, LDL Cholesterol, Calc 21, VLDL Cholesterol 11, HDL Cholesterol 63, Cholesterol/HDL Ratio 1.51 Radiography Diagnostic Testing: Radiology Impression Chest X-Ray 07/30/25 17:12 IMPRESSION: No interval change Reading Location: [facility] Rhythm Strip Rhythm Strip: A-fib Rate: 149 Ectopy: None Physical Exam Const alert HEENT head/scalp atraumatic and moist oral mucous membranes Resp normal respiratory effort, no retractions, no use of accessory muscles and clear to auscultation bilaterally Cardio Cardio Narrative: irregularly irregular. HR 1-teens to 120s on telemetry. GI normal to inspection, nondistended, normoactive bowel sounds, soft to palpation, non-tender and non-distended Extremity normal to inspection and full ROM Neuro Sensorium / Orientation: awake and alert Assessment & Plan Assessment/Plan (1) STEMI (ST elevation myocardial infarction): (2) Atrial fibrillation with RVR: (3) Leucocytosis: PLAN: Plan Acute ST segment elevation [place] [facility] on 07/30: PROX LAD: Occluded in the proximal portion with collateral filling of the mid LAD followed by an area of occlusion in the mid to distal LAD and again collateral filling of the apical portion of the LAD.This is a chronic total occlusion. We attempted to cross it briefly with the BMW wire and were unsuccessful. Medical mgmt. continue ASA, atorvastatin New onset A-fib with RVR Patient was started on heparin drip and amiodarone. Amiodarone to be change to PO. Anticoagulation changed to apixaban from heparin. Started on metoprolol 25 BID. Stage IV lung CA Patient has known non-small cell lung cancer?adenocarcinoma involving the left lower lobe with mets to the contralateral lung as well as lymph nodes. Patient currently on palliative carboplatin Keytruda and paclitaxel. Last treatment was on 07/26/2025. Patient is followed by Dr Bosch with oncology Marked leukocytosis was 81.7 on 07/30, down to 60k today. Likely 2/2 to pegfilgrastim that he received as an outpatient. Monitor Chronic medical conditions: COPD? compensated Tobacco dependence ? Counseled on cessation, offered nicotine patch for tobacco cravings BPH: continue tamsulosin Dyslipidemia?Patient is on statin therapy, continued at home dose History of carotid artery disease? Patient is on aspirin Severe protein calorie malnutrition? As evidenced by muscle wasting weight loss and decreased energy level consult placed dietitian Hyponatremia: mild. chronic. DVT prophylaxis: not indicated as already anticoagulated. DW family at bedside. Charges/Coding Visit Charges Inpatient E&M: 63200 Subs Hosp L2
[2025-07-31] MEDS: Aspirin E.C. 81 MG Tablet PO (08:33)
[2025-07-31] MEDS: APIXABAN 5 MG TABLET PO ×2 (11:15→21:06)
--- NOTE | 2025-07-31 11:18 | CASEMGMT ---
RIK REICH Assessment Face to Face with patient for initial transition planning/care coordination assessment. RIK REICH introduced self and role at [facility], pt voices understanding. Pt is A&Ox4 and is resting comfortably in bed and is calm. Pt's sister (Shayy) and brother (Ray) at the bedside. Care providers, pharmacy, and demographics verified. Admitting dx: STEMI LACE Strata: 3 PCP: Trip Singh Specialists: Danitza (Oncology), Pt states that he sees [facility]. Preferred Pharmacy: [facility] Insurance: [facility] Prescription Benefit: Yes LNOK: Honey (sister), Shayy (Sister), Ray (Brother) Living Arrangements: Pt lives with his sister, Honey, in a single story home with a basement. Pt states that he resides in the basement and has everything he needs there. Pt states that he has direct access to the basement with a flat entrance. ADLs/IADLs: Pt states that he is indep and denies needs or concerns. 6-Click score is 21 Transportation: Self, siblings DME: [employer]. Access to a FWW but does not use. Pt is currently requiring additional oxygen and may qualify for home oxygen use. A verbal list of local in-network DME companies were provided to the pt at this time. Pt prefers [facility] HHC/SNF:denies hx or needs Pt?s goal: Home ETOH: Pt states that he drinks between 3-12 beers per day and smokes 1 pack of cigarettes per day. Denies illicit drug use. Pt denies wanting to speak with a SW regarding cessation resources Plan: Anticipate DC home once medically ready with pt's sister. Follow for oxygen needs and anticaog. At this time, the pt denies the need for any additional therapy, HHC, or resources. Pt states that he feels safe returning home with his sister once medically ready and denies further questions, concerns, or needs. Cindy West RN, CM
[2025-07-31] MEDS: Amiodarone 360 MG in Dextrose 5% Viaflo Bag 192.8 ML 16.7 MG CONT INF (12:25)
--- NOTE | 2025-07-31 13:51 | CHAPLAIN ---
Type of Pastoral Visit _x__ Initial Visit ___ Follow-up Visit ___ On-call Visit ___ General Patient Visit ___ Spiritual Assessment ___ Family Conference ___ Bereavement ___ Rapid Response ___ Code Blue ___ Other (describe below) Pastoral Care Referral From _x__ Patient ___ Family ___ Nurse ___ Physician ___ Coding Clerks Supervisor ___ Executive Meeting Manager ___ Other (describe below) Sacrament/Intervention ___ Active listening ___ Anointing ___ Mu-Ism ___ Bereavement ___ Communion ___ Tiffanie exploration ___ ___ Life review ___ Prayer ___ Reconciliation ___ Sacrament of Sick _x__ Supportive presence ___ Wedding ___ Other (describe below) Pastoral Comments patient is awake and resting comfortably in bed; pt acknowledges the night warehouse selector and offer of support; pt says that he has had quite a bit of support today; pt denies having needs or concerns; pt is offered spiritual care in the future as he desires
[2025-07-31] MEDS: hydrOXYzine PAM 25 MG Capsule 50 MG PO (21:06)
[2025-08-01] VITALS (13 sets, daily range): BP systolic 79–107; BP diastolic 44–73; PULSE 55–76; RESP 18–24; TEMP 36.6; O2SAT 90–100; BMI 20.6
[2025-08-01] MEDS: 0.9% Normal Saline (1000mL) 1,000 ML 75 ML IV (04:47)
[2025-08-01] MEDS: 0.9% Saline Lock 10 ML Syringe IV (04:56)
[2025-08-01 05:19] LABS: Hematocrit 26.2 % (40-54); Hemoglobin 9.2 g/dL (13.0-16.5); Immature Granulocytes Count 1.150 X10^3/uL (0.0-0.0); Mean Corp Hgb Conc 35.1 g/dL (32-36); Mean Corpuscular Volume 90.3 fL (80-94); Mean Platelet Vol. 10.4 fl (6.2-12.0); NRBC Flagged by Analyzer 0.1 % (0-5); POSITIVE COUNT YES; POSITIVE DIFFERENTIAL YES; POSITIVE MORPHOLOGY YES; Platelet Count 161 K/mm3 (150-450); RBC Distribution Width CV 15.6 % (11.6-14.6); RBC Distribution Width SD 50.8 fl (35.1-43.9); Red Blood Count 2.90 M/mm3 (4.6-6.2)
[2025-08-01 05:26] LABS: Differential Indicated SCAN CRITERIA MET; White Blood Count 36.4 K/mm3 (4.4-11.0)
[2025-08-01 05:44] LABS: Anion Gap 8 (5-15); BUN 12 mg/dL (4-19); BUN/Creat Ratio 26.3 RATIO (10-20); Calcium,Total 8.0 mg/dL (7.6-11.0); Carbon Dioxide 22.8 mmol/L (21.0-32.0); Chloride 102 mmol/L (98-108); Estimated Creatinine Clearance 64.29 ml/min (50-250); Glucose 81 mg/dL (70-99); Potassium 3.7 mmol/L (3.3-5.1)
[2025-08-01 06:20] LABS: Differential Comment SCANNED
--- NOTE | 2025-08-01 06:22 | PCM.PN.CARD ---
Subjective Subjective Patient seen and evaluated. Doing well. No complaints. Back in sinus rhythm Objective Data Vital Signs: Vital Signs Temp Pulse Resp BP Pulse Ox O2 Del Method O2 Flow Rate 97.8 F 63 20 H 95/52 L 95 Nasal Cannula 2 08/01/25 02:00 08/01/25 05:00 08/01/25 05:00 08/01/25 05:00 08/01/25 05:00 08/01/25 05:00 08/01/25 05:00 Oxygen Flow Rate (L/min) 2 Oxygen Delivery Method Nasal Cannula Weight: 116 lb 9.992 oz Body Mass Index (BMI) 20.6 Intake & Output: Intake and Output for Last 24 Hours 07/30/25 07/31/25 08/01/25 23:59 23:59 23:59 Intake Total 1166.46 / 1206.46 2081.09 / 2081.09 1120 / 1120 Output Total 200 / 350 1800 / 1800 250 / 250 Balance 966.46 / 856.46 281.09 / 281.09 870 / 870 Lab / Micro Data 08/01/25 04:47 08/01/25 04:47 Labs: Laboratory Results - last 24 hr 08/01/25 04:47: WBC 36.4 H*, RBC 2.90 L, Hgb 9.2 L, Hct 26.2 L, MCV 90.3, MCH 31.7, MCHC 35.1, RDW Std Deviation 50.8 H, RDW Coeff of [place] 15.6 H, Plt Count 161, MPV 10.4, Immature Gran % (Auto) 3.200 H, Neut % (Auto) 84.2 H, Lymph % (Auto) 4.4 L, [place] % (Auto) 7.7, Eos % (Auto) 0.4, Baso % (Auto) 0.1, Absolute Neuts (auto) 30.7 H, Absolute Lymphs (auto) 1.59, Nucleated RBC % 0.1, Differential Comment SCANNED, Sodium 133, Potassium 3.7, Chloride 102, Carbon Dioxide 22.8, Anion Gap 8, BUN 12, Creatinine 0.46 L, Estim Creat Clear Calc 64.29, Est GFR (MDRD) Non-Af 112, BUN/Creatinine Ratio 26.3 H, Glucose 81, Calcium 8.0 Rhythm Strip Rhythm Strip: A-fib Rate: 149 Ectopy: None Cardiology Labs/Tests 08/01/25 04:47: WBC 36.4 H*, RBC 2.90 L, Hgb 9.2 L, Hct 26.2 L, MCV 90.3, MCH 31.7, MCHC 35.1, Plt Count 161, MPV 10.4, Immature Gran % (Auto) 3.200 H, Neut % (Auto) 84.2 H, Lymph % (Auto) 4.4 L, Saline % (Auto) 7.7, Eos % (Auto) 0.4, Baso % (Auto) 0.1, Absolute Neuts (auto) 30.7 H, Nucleated RBC % 0.1, Sodium 133, Potassium 3.7, Chloride 102, Carbon Dioxide 22.8, Anion Gap 8, BUN 12, Creatinine 0.46 L, Est GFR (MDRD) Non-Af 112, BUN/Creatinine Ratio 26.3 H, Glucose 81, Calcium 8.0 Rhythm: EKG: ECHO: Stress Test: Cardiac Cath: PCI: CT Surgery: Holter monitor: EPS: PPM: CXR: Chest CT Scan: Radiography Diagnostic Testing: Radiology Impression Echocardiogram 07/30/25 19:16 Interpretation Summary Normal LV size. Severe segmental systolic dysfunction (see wall motion). The left ventricular ejection fraction is 20 %. Mild (1+) eccentric mitral valve insufficiency. Contrast injection was performed. Ordering Physician: Goldy Tovar Referring Physician: Nahomy Good Performed By: Moira Escudero RCS Assessment & Plan Assessment/Plan (1) Abnormal EKG: PLAN: Patient presents with chest pain and abnormal EKG to the emergency room. There was ST elevation noted in leads which were already cued out. This suggest that there was previous infarct and likely EKG changes from the atrial fibrillation. Patient underwent cardiac catheterization with demonstrated totally occluded left anterior descending artery confirming the EKG findings, circumflex artery with moderate disease, mild distal left main disease, and diffuse right coronary artery mild disease. Medical management was instituted. Echocardiogram did confirm segmental wall motion abnormalities with an ejection fraction of 20%. Continue beta-dimitrios Continue statin Continue aspirin (2) Atrial fibrillation with RVR: PLAN: Patient presented with atrial fibrillation with a rapid ventricular response rate new onset. He appears to have converted to sinus rhythm. Currently on oral amiodarone Beta-dimitrios instituted Echocardiogram demonstrated ejection fraction of 20% Will start anticoagulation with Eliquis 5 mg twice a day (3) LV dysfunction: PLAN: Patient has evidence of left ventricular systolic dysfunction with wall motion abnormalities previously present. Will continue with guideline directed medical therapy. PLAN: Plan Patient can be discharged with outpatient follow-up. He will continue with guideline directed medical therapy. With his reduced ejection fraction he may be a consideration for an implantable defibrillator but with his underlying malignancy and abbreviated life expectancy I doubt that he will be a viable candidate.
--- NOTE | 2025-08-01 06:56 | PN.HOSP_ITS ---
Reason for Visit Chief Complaint: Chest discomfort Subjective Subjective Feels well. No new complaints. Objective Data Objective Data Vital Signs: Vital Signs Temp Pulse Resp BP Pulse Ox O2 Del Method O2 Flow Rate 36.6 C 66 20 H 94/55 L 98 Nasal Cannula 2 08/01/25 02:00 08/01/25 06:00 08/01/25 06:00 08/01/25 06:00 08/01/25 06:00 08/01/25 06:00 08/01/25 06:00 Oxygen Flow Rate (L/min) 2 Oxygen Delivery Method Nasal Cannula Weight: 52.9 kg Body Mass Index (BMI) 20.6 Intake & Output: Intake and Output for Last 24 Hours 07/30/25 07/31/25 08/01/25 23:59 23:59 23:59 Intake Total 1166.46 / 1206.46 2081.09 / 2081.09 1220 / 1220 Output Total 200 / 350 1800 / 1800 250 / 250 Balance 966.46 / 856.46 281.09 / 281.09 970 / 970 Lab / Micro Data 08/01/25 04:47 08/01/25 04:47 Labs: Laboratory Results - last 24 hr 08/01/25 04:47: WBC 36.4 H*, RBC 2.90 L, Hgb 9.2 L, Hct 26.2 L, MCV 90.3, MCH 31.7, MCHC 35.1, RDW Std Deviation 50.8 H, RDW Coeff of [place] 15.6 H, Plt Count 161, MPV 10.4, Immature Gran % (Auto) 3.200 H, Neut % (Auto) 84.2 H, Lymph % (Auto) 4.4 L, [place] % (Auto) 7.7, Eos % (Auto) 0.4, Baso % (Auto) 0.1, Absolute Neuts (auto) 30.7 H, Absolute Lymphs (auto) 1.59, Nucleated RBC % 0.1, Differential Comment SCANNED, Sodium 133, Potassium 3.7, Chloride 102, Carbon Dioxide 22.8, Anion Gap 8, BUN 12, Creatinine 0.46 L, Estim Creat Clear Calc 64.29, Est GFR (MDRD) Non-Af 112, BUN/Creatinine Ratio 26.3 H, Glucose 81, Calcium 8.0 Radiography Diagnostic Testing: Radiology Impression Echocardiogram 07/30/25 19:16 Interpretation Summary Normal LV size. Severe segmental systolic dysfunction (see wall motion). The left ventricular ejection fraction is 20 %. Mild (1+) eccentric mitral valve insufficiency. Contrast injection was performed. Ordering Physician: Goldy Tovar Referring Physician: Nahomy Good Performed By: Moira Escudero RCS Rhythm Strip Rhythm Strip: A-fib Rate: 149 Ectopy: None Physical Exam Const alert and no apparent distress HEENT head/scalp atraumatic and moist oral mucous membranes Neck no lymphadenopathy Resp normal respiratory effort, no retractions, no use of accessory muscles and clear to auscultation bilaterally Cardio regular rate, regular rhythm, S1 normal heart sound and S2 normal heart sound GI normal to inspection, nondistended, normoactive bowel sounds, soft to palpation, non-tender and non-distended Assessment & Plan Assessment/Plan (1) STEMI (ST elevation myocardial infarction): (2) Atrial fibrillation with RVR: (3) Leucocytosis: PLAN: Plan Acute ST segment elevation [place] * [facility] on 07/30: PROX LAD: Occluded in the proximal portion with collateral filling of the mid LAD followed by an area of occlusion in the mid to distal LAD and again collateral filling of the apical portion of the LAD.This is a chronic total occlusion. We attempted to cross it briefly with the BMW wire and were unsuccessful. * Medical mgmt. * continue ASA, atorvastatin * Follow up with cardiology. New onset A-fib with RVR * Patient was started on heparin drip and amiodarone. Amiodarone PO. Anticoagulation changed to apixaban from heparin. Started on metoprolol 25 BID. 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 Patient currently on palliative carboplatin Keytruda and paclitaxel. Last treatment was on 07/26/2025. Patient is followed by Dr Bosch with oncology Marked leukocytosis * was 81.7 on 07/30, down to 60k and today to 36.4. Likely 2/ to pegfilgrastim that he received as an outpatient. Monitor Ischemic cardiomyopathy * EF 20% on 2d echo * follow up with cardiology * no ACEi/ARB given low BPs Chronic medical conditions: * COPD? compensated * Tobacco dependence ? Counseled on cessation, offered nicotine patch for tobacco cravings * BPH: continue tamsulosin * Dyslipidemia?Patient is on statin therapy, continued at home dose * History of carotid artery disease? Patient is on aspirin * Severe protein calorie malnutrition? As evidenced by muscle wasting weight loss and decreased energy level consult placed dietitian * Hyponatremia: mild. chronic. DVT prophylaxis: not indicated as already anticoagulated.
[2025-08-01] MEDS: APIXABAN 5 MG TABLET PO (09:30)
[2025-08-01] MEDS: Aspirin E.C. 81 MG Tablet PO (09:30)
--- NOTE | 2025-08-01 11:34 | DS.PCM_ITS ---
Providers Date of Admission: 07/30/25 Primary Care Physician: FRIEDA KEARNEY Reason For Visit: STEMI Diagnosis Discharge Diagnosis (1) STEMI (ST elevation myocardial infarction): Status: Acute Code(s): I21.3 - ST elevation (STEMI) myocardial infarction of unspecified site (2) Atrial fibrillation with RVR: Status: Acute Code(s): I48.91 - Unspecified atrial fibrillation (3) Leucocytosis: Status: Acute Code(s): D72.829 - Elevated white blood cell count, unspecified Plan Acute ST segment elevation CA * [facility] on 07/30: PROX LAD: Occluded in the proximal portion with collateral filling of the mid LAD followed by an area of occlusion in the mid to distal LAD and again collateral filling of the apical portion of the LAD.This is a chronic total occlusion. We attempted to cross it briefly with the BMW wire and were unsuccessful. * Medical mgmt. * continue ASA, atorvastatin * Follow up with cardiology. New onset A-fib with RVR * Patient was started on heparin drip and amiodarone. Amiodarone PO. Anticoagulation changed to apixaban from heparin. Started on metoprolol 25 BID. 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 Patient currently on palliative carboplatin Keytruda and paclitaxel. Last treatment was on 07/26/2025. Patient is followed by Dr Bosch with oncology Marked leukocytosis * was 81.7 on 07/30, down to 60k and today to 36.4. Likely 2/2 to pegfilgrastim that he received as an outpatient. Monitor Ischemic cardiomyopathy * EF 20% on 2d echo * follow up with cardiology * no ACEi/ARB given low BPs Chronic medical conditions: * COPD? compensated * Tobacco dependence ? Counseled on cessation, offered nicotine patch for tobacco cravings * BPH: continue tamsulosin * Dyslipidemia?Patient is on statin therapy, continued at home dose * History of carotid artery disease? Patient is on aspirin * Severe protein calorie malnutrition? As evidenced by muscle wasting weight loss and decreased energy level consult placed dietitian * Hyponatremia: mild. chronic. DVT prophylaxis: not indicated as already anticoagulated. Medications at Discharge Home Medications tamsulosin 0.4 mg capsule 0.4 mg PO QHS 12/29/23 albuterol sulfate 90 mcg/actuation aerosol inhaler 1 puff inhalation Q4H PRN 12/09/24 hydroxyzine HCl 50 mg tablet 50 mg PO QHS 12/26/24 aspirin 81 mg tablet,delayed release (Adult Low Dose Aspirin) 81 mg PO DAILY 04/07/25 glycopyrrolate 9 mcg-formoterol 4.8 mcg HFA aerosol inhaler (Bevespi Aerosphere) 2 puff inhalation Q12H 04/07/25 polymyxin B sulfate 10,000 unit-trimethoprim 1 mg/mL eye drops 1 drp ophthalmic (eye) DAILY 04/19/25 oxycodone 5 mg tablet 5 mg PO Q8H PRN pain 3 days #7 tabs 06/05/25 Keytruda 200 mg IV Q21D #8 mL 06/12/25 folic acid 1 mg tablet 1 mg PO QDAY #90 tabs 06/12/25 lidocaine-prilocaine 2.5 %-2.5 % topical cream 1 applic topical ONCE PRN port cream 30 days #30 grams 06/12/25 ondansetron 8 mg disintegrating tablet 8 mg PO Q8H PRN nausea and vomiting #30 tabs 06/12/25 atorvastatin 40 mg tablet 40 mg PO QDAY 06/29/25 dexamethasone 4 mg tablet 4 mg PO .COMPLEX #24 tabs 07/05/25 amiodarone 200 mg tablet 200 mg PO DAILY #30 tabs 08/01/25 apixaban 5 mg tablet (Eliquis) 5 mg PO BID #60 tabs 08/01/25 metoprolol tartrate 25 mg tablet 25 mg PO BID #60 tabs 08/01/25 Hospital Course Operations None Procedures 2-D Echocardiogram and Cardiac catheterization Summary of Care Provided Hospital Course: Patient was a STEMI alert. Patient on a cardiac catheterization that showed a chronically occluded LAD as patient had collateral vessels. Medical management was ensued. Patient was noted to be in A-fib with RVR and was started on amiodarone drip. Heart rate has since improved and normal sinus rhythm. Patient has been started on amiodarone, metoprolol and anticoagulation with apixaban. His EF is 20%. Patient will follow-up with cardiology as outpatient. Patient may need to be considered for a defibrillator but patient has underlying pulmonary malignancy that may not make him a viable candidate for that. Please see cardiology's note for further details. Weight / BMI Weight Weight: 52.9 kg Body Mass Index (BMI) 20.6 ABG / Lab / Microbiology Data 08/01/25 04:47 08/01/25 04:47 Laboratory: Laboratory Results - last 24 hr 08/01/25 04:47: WBC 36.4 H*, RBC 2.90 L, Hgb 9.2 L, Hct 26.2 L, MCV 90.3, MCH 31.7, MCHC 35.1, RDW Std Deviation 50.8 H, RDW Coeff of [place] 15.6 H, Plt Count 161, MPV 10.4, Immature Gran % (Auto) 3.200 H, Neut % (Auto) 84.2 H, Lymph % (Auto) 4.4 L, [place] % (Auto) 7.7, Eos % (Auto) 0.4, Baso % (Auto) 0.1, Absolute Neuts (auto) 30.7 H, Absolute Lymphs (auto) 1.59, Nucleated RBC % 0.1, Differential Comment SCANNED, Sodium 133, Potassium 3.7, Chloride 102, Carbon Dioxide 22.8, Anion Gap 8, BUN 12, Creatinine 0.46 L, Estim Creat Clear Calc 64.29, Est GFR (MDRD) Non-Af 112, BUN/Creatinine Ratio 26.3 H, Glucose 81, Calcium 8.0 Radiography Diagnostic Testing: Radiology Impression Echocardiogram 07/30/25 19:16 Interpretation Summary Normal LV size. Severe segmental systolic dysfunction (see wall motion). The left ventricular ejection fraction is 20 %. Mild (1+) eccentric mitral valve insufficiency. Contrast injection was performed. Ordering Physician: Goldy Tovar Referring Physician: Nahomy Good Performed By: Moira Escudero RCS D/C Instructions DC O2, CPAP, BIPAP Needs Home O2 Discharge instructions: No Meaningful Use Info Meaningful Use Meaningful Use Diagnoses (Choose all that apply): AMI AMI/Post PCI/Angioplasty Aspirin given w/in 24hrs of arrival?: Yes ASA at discharge?: Yes Antiplatelet Therapy at Discharge:: No Statins at discharge?: Yes Vasiliy/ARB at discharge?: No Reason Vasiliy/ARB not ordered:: Hypotension Beta Nic at discharge?: Yes Done w/ Acute CA measure.: Yes Documented LVEF (%): 20 Discharge Plan Admission Admit Date/Time: 07/30/25 17:25 Primary Reason for Your Visit: Atrial fibrillation Attending Provider: Malcolm Hanson Primary Care Provider: JESUS CALLAHAN Consulting Providers: Goldy Tovar Discharge Orders/Prescriptions Prescriptions: New amiodarone 200 mg Tablet 200 mg PO DAILY Qty: 30 0RF metoprolol tartrate 25 mg Tablet 25 mg PO BID Qty: 60 0RF Eliquis 5 mg Tablet 5 mg PO BID Qty: 60 0RF Continued tamsulosin 0.4 mg capsule 0.4 mg PO QHS albuterol sulfate 90 mcg/actuation HFA aerosol inhaler 1 puff inhalation Q4H PRN hydroxyzine HCl 50 mg tablet 50 mg PO QHS polymyxin B sulf-trimethoprim 10,000 unit- 1 mg/mL drops 1 drp ophthalmic (eye) DAILY lidocaine-prilocaine 2.5-2.5 % cream 1 applic topical ONCE PRN (Reason: port cream) 30 Days Qty: 30 2RF ondansetron 8 mg tablet,disintegrating 8 mg PO Q8H PRN (Reason: nausea and vomiting) Qty: 30 1RF folic acid 1 mg tablet 1 mg PO QDAY Qty: 90 1RF Keytruda 200 mg IV Q21D Qty: 8 11RF atorvastatin 40 mg tablet 40 mg PO QDAY dexamethasone 4 mg tablet 4 mg PO .COMPLEX Qty: 24 0RF Rx Instructions: 4 mg orally twice daily ONLY the day before, the day of and the day after chemotherapy oxycodone 5 mg tablet 5 mg PO Q8H PRN (Reason: pain) 3 Days Qty: 7 0RF aspirin [Adult Low Dose Aspirin] 81 mg tablet,delayed release (DR/EC) 81 mg PO DAILY Bevespi Aerosphere 9-4.8 mcg HFA aerosol inhaler 2 puff inhalation Q12H Referrals / Follow Up: [facility] [Provider Group] - Within 1 Month Ayden Bosch MD [Med Staff - Active Staff, Oncology] - 08/09/25 9:15 am JESUS CALLAHAN NP-C [Primary Care Provider, Family Practice] - Within 2 Weeks Disposition Disposition (needs filled in before D/C Order can be placed): Home, Self Care Charges/Coding Visit Charges Inpatient E&M: 62198 Disch Hosp >30min
--- NOTE | 2025-08-01 12:11 | CASEMGMT ---
Pt has an order for DC placed. Per the mill roll operator, pt does not qualify for home oxygen. Noted that the pt has an rx for Eliquis. TC to [facility] who states that the pt's rx is 42$ after insurance. RN CM to the pt's room at this time. Updated the pt that the rx is 42$. This RN CM also educated the pt on the once per lifetime free trial card. Pt states that he might be interested in utilizing this. Savings card provided. Pt denies any further DC needs and states that he is ready to go home. Pt's RN updated.
== END 2025-08-01 13:08 | disposition home or self-care (01) | DRG 280 ==
LOC: ED 17:44 → ICU 18:19
PROVIDERS: Admitting Provider Internal Medicine; Emergency Provider Emergency Medicine; PCP Nurse Practitioner Family; Referring Provider Specialist
DX: I21.02 ST elevation (STEMI) myocardial infarction involving left anterior descending coronary artery (principal); E43 Unspecified severe protein-calorie malnutrition; C78.01 Secondary malignant neoplasm of right lung; C77.9 Secondary and unspecified malignant neoplasm of lymph node, unspecified; N13.8 Other obstructive and reflux uropathy; C34.32 Malignant neoplasm of lower lobe, left bronchus or lung; J44.9 Chronic obstructive pulmonary disease, unspecified; I10 Essential (primary) hypertension; I48.91 Unspecified atrial fibrillation; D72.829 Elevated white blood cell count, unspecified; F17.210 Nicotine dependence, cigarettes, uncomplicated; E78.5 Hyperlipidemia, unspecified; I25.5 Ischemic cardiomyopathy; I25.10 Atherosclerotic heart disease of native coronary artery without angina pectoris; N40.1 Benign prostatic hyperplasia with lower urinary tract symptoms; Z68.20 Body mass index [BMI] 20.0-20.9, adult; Z79.51 Long term (current) use of inhaled steroids; Z79.82 Long term (current) use of aspirin; Z79.899 Other long term (current) drug therapy
CPT/HCPCS: 71045; 80048; 80061; 80076; 83735; 83880; 84100; 84484; 85025; 85610; 85730; 93005; 93306; 93454; 94668; 94762; 96372; 97162; 97166; 97802; 99285; 99406; C1769; C1887; C1894; Q9967; A4216; C8929; Q5108

== ENCOUNTER → 2025-08-11 | Outpatient (CLI) | payer MEDICARE, SELFPAY ==
--- NOTE | 2025-08-11 14:21 | CT_ITS ---
PROCEDURE: CT CHEST AND ABD W/ CONTRAST 08/11/2025 REASON FOR EXAM: F/U NSCLC TECHNIQUE: Chest and abdomen CT with intravenous contrast. Coronal and Sagittal reconstruction series were provided. One or more dose reduction techniques were used (e.g., Automated exposure control, adjustment of the mA and/or kV according to patient size, use of iterative reconstruction technique. PATIENT PREPARATION: Per protocol ORAL CONTRAST TYPE: None. CONTRAST: Isovue-300 VOLUME: 100mL RADIATION DOSE SUMMARY: CTDlvol: 15.2 mGy DLP: 7.6 mGycm COMPARISON: Prior study dated November 07, 2024. FINDINGS: CT CHEST: Hardware: A left-sided port a catheter is seen with the tip in the superior vena cava. Lymph nodes: Several small mediastinal lymph nodes. Slight enlargement of a right hilar lymph node. Heart and Vasculature: Coronary artery calcification. Atherosclerotic calcifications of the thoracic aorta. Pulmonary arteries are unremarkable. Lungs and Airways: Emphysematous changes with evidence of scarring in both upper lobes. There is a 9.4 mm spiculated nodule in the peripheral lateral aspect of the right upper lobe as seen on axial image number 72. This is new. Interval decrease in size of the previously seen spiculated nodule in the superior segment of the left upper lobe presently measuring 12.9 mm. Stable thickening of the left major fissure. Stable linear scarring at the left lung base. Pleura: Small bilateral pleural effusions right slightly greater than left. CT ABDOMEN: Liver: Normal size. No mass. Gallbladder: The gallbladder is contracted Spleen: Normal size. Pancreas: Diffuse fatty atrophy. Adrenals: Unremarkable Kidneys: Normal renal sizes. No hydronephrosis. Bowel: Unremarkable Lymph nodes: Unremarkable. Vasculature: Mild diffuse atherosclerotic calcifications are noted. Peritoneum / Retroperitoneum: Unremarkable Bones: Degenerative changes of the spine. CT/CT Chest AND Abd W/ Contrast IMPRESSION: Coronary artery calcification (CAC) is is present Interval decrease in size of the previously seen nodule in the superior segment of the left lower lobe presently measuring 12.9 mm. New 9.4 mm spiculated nodule in the peripheral lateral aspect of the right uppe r lobe as seen on axial image number 72 Small bilateral effusions right greater than left. Stable emphysematous changes with scarring in both lung apices. Reading Location: [id number]
[2025-08-11] MEDS: 0.9 % NaCl (Sterile) Posiflush 10 mL IV (14:40)
[2025-08-11] MEDS: 0.9% Saline Lock 10 ML Syringe IV (14:48)
== END | disposition home or self-care (01) ==
LOC: CT 14:18
PROVIDERS: PCP Nurse Practitioner Family; Referring Provider Internal Medicine Medical Oncology; Visit Provider Internal Medicine Medical Oncology
DX: C34.32 Malignant neoplasm of lower lobe, left bronchus or lung (principal)
CPT/HCPCS: 71260; 74160; Q9967; A4216

== ENCOUNTER → 2025-10-10 | Outpatient (CLI) | payer MEDICARE, SELFPAY | END | disposition home or self-care (01) | LOC: PSN 11:47 | PROVIDERS: PCP Nurse Practitioner Family; Referring Provider Student in an Organized Health Care Education/Training Program; Visit Provider Student in an Organized Health Care Education/Training Program | DX: I48.0 Paroxysmal atrial fibrillation (principal) | CPT/HCPCS: 93225; 93226 ==

== ENCOUNTER → 2025-10-12 | Outpatient (CLI) | payer MEDICARE, SELFPAY ==
--- NOTE | 2025-10-12 13:41 | ECHOLC_ITS ---
Reason For Study Reason For Study: SOB, Reduced EF Procedure This was a limited 2D transthoracic echocardiogram. The study was technically difficult. Contrast injection was performed. Exam performed in department. Left Ventricle Moderately dilated left ventricle. The left ventricular ejection fraction is 25 %. Moderately severe segmental systolic dysfunction (see wall motion). Anterior [place] : Akinetic. [place] : Akinetic. Mid- Anterior : Akinetic. Mid-Lateral : Hypokinetic. Mid-anteroseptal : Akinetic. Infero-Basal: Normal. Posterior-Basal: Normal. Lateral-Basal: Normal. Anterio- Basal: Hypokinetic. Right Ventricle Normal RV size. Normal systolic function. Atria The left atrium is mildly enlarged. The right atrium is mildly enlarged. Mitral Valve Bileaflet diffuse mitral valve thickening. Mild (1+) eccentric mitral valve insufficiency. Tricuspid Valve Normal tricuspid valve. Mild (1+) tricuspid valve insufficiency. Pulmonary artery systolic pressure is 24 mmHg. Aortic Valve Trisinus/trileaflet aortic valve. Pulmonic Valve Normal pulmonic valve. Great Vessels Normal aortic root. The pulmonary artery is normal size. Inferior vena cava collapse with respiration. Pericardium/Pleural No pericardial effusion. Medication Port Accessed by RN. Diluted definity 2ml given slow IV push to enhance endocardial definition. MMode/2D Measurements & Calculations LVIDd: 4.8 cm IVSd: 0.86 cm LAV(MOD-sp4): 61.1 ml LVIDs: 3.7 cm LVPWd: 0.83 cm FS: 23.7 % LVAd ap4: 41.1 cm2 SV(MOD-sp4): 63.6 ml SV(sp4-el): 67.4 ml LVLd ap4: 8.5 cm SI(MOD-sp4): 43.1 ml/m2 EDV(MOD-sp4): 163.4 ml EDV(sp4-el): 169.5 ml LVAs ap4: 29.6 cm2 LVLs ap4: 7.3 cm ESV(MOD-sp4): 99.8 ml ESV(sp4-el): 102.2 ml EF(MOD-sp4): 38.9 % EF(sp4-el): 39.7 % LA A4 area: 19.7 cm2 RA A4 area: 13.7 cm2 Doppler Measurements & Calculations TR max magda: 226.0 cm/sec TR max P.4 mmHg ECHO/Echo Limited w/Contrast Interpretation Summary The left ventricular ejection fraction is 25 %. Moderately dilated left ventricle. Mild (1+) tricuspid valve insufficiency. Contrast injection was performed. Compared to previous study, the left ventricu lar systolic function is the same.. Ordering Physician: Jamie Holm Referring Physician: Jamie Holm Performed By: Tank Salvador RCS
== END | disposition home or self-care (01) ==
LOC: CVS 13:40
PROVIDERS: PCP Nurse Practitioner Family; Referring Provider Student in an Organized Health Care Education/Training Program; Visit Provider Student in an Organized Health Care Education/Training Program
DX: R06.02 Shortness of breath (principal)
CPT/HCPCS: 93308; Q9957; A4216; C8924